=== PATIENT | female | born 1950 | race Caucasian/White ===

== ENCOUNTER → 2016-04-06 | Outpatient (CLI) | payer OTHER ==
--- NOTE | 2016-04-06 11:36 | NM ---
EXAMINATION TYPE: NM bone 3 phase DATE OF EXAM: 04/06/2016 11:30 AM COMPARISON: Previous study dated 02/10/2014 HISTORY: Left foot ulcer. Triple phase bone scintigraphy was performed following the injection of27.5 mCi Tc 99m MDP. Immediat e images and 3.5 hours post injection images acquired. FINDINGS: There is increased flow and pool activity about the left ankle. There is also some mild increased act ivity in the right calcaneus and first MTP joint. Delayed static images show increased activity in th e right first MTP joint as well as diffusely about the left calcaneus. IMPRESSION: 1. Findings consistent with osteomyelitis involving the left calcaneus. 2. Degenerative change, right first MTP joint.
== END | disposition home or self-care (01) ==
LOC: RADNMMAIN 06:54
PROVIDERS: ATTEND Internal Medicine Infectious Disease
DX: M19.071 Primary osteoarthritis, right ankle and foot (principal); E11.621 Type 2 diabetes mellitus with foot ulcer; L97.509 Non-pressure chronic ulcer of other part of unspecified foot with unspecified severity
CPT/HCPCS: 78315; A9503

== ENCOUNTER 2016-04-11 11:13 | Day surgery (SDC) | payer OTHER ==
[2016-04-10 08:44] VITALS: BMI 43.0
[~2016-04-11 11:13] MED LIST: Pre Op ABX Message 1 EACH MISC MISCELLANE ONE
[2016-04-11 11:36] VITALS: TEMP 97.9
[2016-04-11] MEDS ORDERED: VANCOMYCIN 1,500 MG in SODIUM CHLORIDE 0.9% 250 ML IVPB ONE (12:00)
[2016-04-11] MEDS ORDERED: LIDOCAINE 2% INJ 20 MG/ML (20 ML MDV) ONE (13:20)
[2016-04-11] MEDS ORDERED: LIDOCAINE 2% INJ 20 MG/ML SQ ONE (13:33)
[2016-04-11 17:02] VITALS: BP 145/73; PULSE 68; RESP 16
--- NOTE | 2016-04-23 12:28 | IR ---
PICC LINE PLACEMENT: HISTORY: Infection requiring long-term antibiotic therapy PROCEDURE: Ultrasound guidance of PICC line placement. COMPLICATIONS: None ANESTHESIA: 1. 1% Lidocaine locally. FINDINGS/TECHNIQUE: The procedure was explained to the patient. The risks, complications, benefits and alternatives were discussed and any questions were answered. Informed consent was obtained. The patient was placed supine on the fluoroscopic table and prepped and draped in the usual sterile fash ion. Utilizing a 21 gauge needle and sonographic guidance, access in the left basilic vein was achi eved and there is placement of a 0.018 guidewire. The vein is patent. A 5-F. Sheath was placed over the guidewire. The guidewire and dilator were removed and a 5-F. Double lumen PICC line was placed through the sheath with the chest x-ray confirming the tip at the level of the SVC. The sheath was r emoved, the catheter was flushed and sutured into position. The patient was stable throughout the pr ocedure and remained stable upon discharge from the Department of Radiology. The vein puncture was patent under ultrasound. A arteaga scale image was obtained to document patency of the vein punctured. All elements of the maximal barrier technique were utilized. IMPRESSION: 1. Successful PICC line placement under ultrasound performed bedside within the ICU.
== END 2016-04-11 17:05 | disposition home or self-care (01) ==
LOC: CATHCVL 11:13
PROVIDERS: ATTEND Radiology Diagnostic Radiology
DX: M86.8X7 Other osteomyelitis, ankle and foot (principal); E11.621 Type 2 diabetes mellitus with foot ulcer; L97.429 Non-pressure chronic ulcer of left heel and midfoot with unspecified severity; E78.5 Hyperlipidemia, unspecified; F32.9 Major depressive disorder, single episode, unspecified; E66.01 Morbid (severe) obesity due to excess calories; Z68.41 Body mass index [BMI] 40.0-44.9, adult; Z79.1 Long term (current) use of non-steroidal anti-inflammatories (NSAID); Z79.82 Long term (current) use of aspirin; Z79.4 Long term (current) use of insulin; Z79.899 Other long term (current) drug therapy; Z88.0 Allergy status to penicillin; Z87.891 Personal history of nicotine dependence
CPT/HCPCS: 36569; 76937; 77001; C1751; C1769; J2001; J3370

== ENCOUNTER → 2016-08-20 | Outpatient (CLI) | payer OTHER | END | disposition home or self-care (01) | LOC: LABWHC1 13:26 | PROVIDERS: ATTEND Internal Medicine Infectious Disease | DX: Z53.9 Procedure and treatment not carried out, unspecified reason (principal) ==

== ENCOUNTER → 2017-04-01 | Outpatient (CLI) | payer OTHER ==
[2017-04-01 11:40] LABS: Basophils % (A) 0 %; Eosinophils # (A) 0.3 k/uL (0-0.7); Eosinophils % (A) 4 %; HCT 33.8 % (34.0-46.0); Lymphocytes # (A) 0.9 k/uL (1.0-4.8); Lymphocytes % (A) 13 %; MCH 27.6 pg (25.0-35.0); MCHC 32.7 g/dL (31.0-37.0); MCV 84.4 fL (80.0-100.0); Mean Platelet Volume 7.1; Monocytes # (A) 0.3 k/uL (0-1.0); Monocytes % (A) 4 %; Neutrophils # (A) 5.6 k/uL (1.3-7.7); Neutrophils % (A) 78 %; Platelet Count 234 k/uL (150-450); RDW 12.8 % (11.5-15.5); WBC 7.2 k/uL (3.8-10.6)
[2017-04-01 11:51] LABS: Calcium 9.5 mg/dL (8.4-10.2); Magnesium 2.3 mg/dL (1.6-2.3); Phosphorus 4.6 mg/dL (2.5-4.5); Potassium 4.3 mmol/L (3.5-5.1); Uric Acid 6.8 mg/dL (3.7-7.4)
== END | disposition home or self-care (01) ==
LOC: LABWHC1 10:58
PROVIDERS: ATTEND Family Medicine
DX: N18.3 Chronic kidney disease, stage 3 (moderate) (principal); E13.621 Other specified diabetes mellitus with foot ulcer; E63.8 Other specified nutritional deficiencies; R60.9 Edema, unspecified
CPT/HCPCS: 36415; 80048; 83735; 83970; 84100; 84134; 84550; 85025; 97597; 99212

== ENCOUNTER → 2017-04-10 | Outpatient (CLI) | payer OTHER ==
--- NOTE | 2017-04-11 18:25 | US ---
LOWER EXTREMITY VENOUS INSUFFICIENCY SIDE PERFORMED: Bilateral 1) Color flow is present and patency is documented in the following vessels. No DVT or SVT is noted . EIV Common Femoral Vein Deep Femoral Vein Femoral Vein Popliteal Vein Proximal Calf Veins Greater Saph Vein Upper Small Saph Vein 2) There is venous reflux noted at the following venous levels: Venous reflux seen at every level t hroughout bilateral legs IMPRESSION: 1. Bilateral lower extremity venous reflux.
--- NOTE | 2017-04-17 15:14 | P.ARTDOP ---
Arterial Doppler LOWER EXTREMITY ARTERIAL DOPPLER: DATE OF SERVICE: 04/10/2017 Reason for study: Nonhealing left heel ulcer. Doppler waveforms: Multiphasic bilaterally throughout. Pulse volume recording: Normal configuration. Pressure gradients: None. Ankle-brachial indices: Greater than 1 bilaterally. Toe pressures: 126 on the right, 150 on the left Impression: Normal study.
== END | disposition home or self-care (01) ==
LOC: RADUSWWP 13:31
PROVIDERS: ATTEND Internal Medicine Infectious Disease
DX: I87.2 Venous insufficiency (chronic) (peripheral) (principal); E13.621 Other specified diabetes mellitus with foot ulcer; L97.429 Non-pressure chronic ulcer of left heel and midfoot with unspecified severity; E63.8 Other specified nutritional deficiencies
CPT/HCPCS: 93923; 93970

== ENCOUNTER → 2017-04-30 | Outpatient (CLI) | payer OTHER ==
--- NOTE | 2017-04-30 12:51 | US ---
EXAMINATION TYPE: US kidneys/renal and bladder DATE OF EXAM: 04/30/2017 COMPARISON: NONE CLINICAL HISTORY: N18.3 Stage 3 kidney disease. CKD EXAM MEASUREMENTS: Right Kidney: 11.6 x 5.7 x 5.9 cm Left Kidney: 12.1 x 6.4 x 4.8 cm Technical limitations due to patient's body habitus and overlying bowel content Right Kidney: no evidence of hydronephrosis as visualized Left Kidney: no evidence of hydronephrosis as visualized Bladder: appears wnl Bilateral Jets seen: wnl There is no evidence for hydronephrosis at this point in time. Some bilateral cortical thinning is se en. No nephrolithiasis is seen. No masses are identified. The urinary bladder is not greatly diste nded. Bilateral ureteral jets are seen. IMPRESSION: No hydronephrosis is evident bilaterally.
[2017-04-30 13:22] LABS: Potassium 4.3 mmol/L (3.5-5.1)
== END | disposition home or self-care (01) ==
LOC: RADUSWWP 11:43
PROVIDERS: ATTEND Family Medicine
DX: N18.3 Chronic kidney disease, stage 3 (moderate) (principal); I73.9 Peripheral vascular disease, unspecified
CPT/HCPCS: 76770; 80048

== ENCOUNTER → 2017-07-26 | Outpatient (CLI) | payer OTHER ==
--- NOTE | 2017-07-26 13:38 | NM ---
EXAMINATION TYPE: NM bone 3 phase DATE OF EXAM: 07/26/2017 COMPARISON: 04/06/2016 HISTORY: Open sores of the bilateral heels with history of right foot fifth and third digit amputatio n. Triple phase bone scintigraphy was performed following the injection of 25.8 mCi Tc 99m MDP. Immedia te images , blood pool images and 5 hours post injection delayed images were acquired. FINDINGS: As previously seen on the left foot on the exam of 04/06/2016 there is now increased flow, blood pool, and delayed radiotracer uptake to the right ankle most concentrated within the hindfoot involving th e tibia, calcaneus, and navicular bone. Focal radiotracer uptake on blood pool and delayed images is also seen mildly within the left calcaneus. Delayed uptake within the left first metatarsal phalangea l joint and bilateral distal interphalangeal joints suggests forefoot arthropathy. IMPRESSION: 1. Findings suggesting multifocal osteomyelitis within the right foot involving the distal tibia, trinh icular bone, and calcaneus. 2. Findings concerning for osteomyelitis of the left calcaneus although less pronounced than findings on the right. 3. Bilateral forefoot arthropathy.
== END | disposition home or self-care (01) ==
LOC: RADNMMAIN 07:23
PROVIDERS: ATTEND Internal Medicine Infectious Disease
DX: M19.072 Primary osteoarthritis, left ankle and foot (principal); M19.071 Primary osteoarthritis, right ankle and foot
CPT/HCPCS: 78315; A9503

== ENCOUNTER → 2017-08-05 | Outpatient (CLI) | payer OTHER ==
[2017-08-05 11:58] LABS: HCT 29.3 % (34.0-46.0); HGB 9.4 gm/dL (11.4-16.0); Hypochromasia Slight; MCH 25.8 pg (25.0-35.0); MCHC 32.1 g/dL (31.0-37.0); MCV 80.5 fL (80.0-100.0); Mean Platelet Volume 7.5; Platelet Count 182 k/uL (150-450); RBC 3.63 m/uL (3.80-5.40); RDW 14.8 % (11.5-15.5); WBC 7.8 k/uL (3.8-10.6)
[2017-08-05 12:22] LABS: Calcium 8.9 mg/dL (8.4-10.2); Phosphorus 5.4 mg/dL (2.5-4.5); Potassium 4.5 mmol/L (3.5-5.1); Uric Acid 6.3 mg/dL (3.7-7.4)
[2017-08-05 16:48] LABS: Parathyroid Hormone Intact 62.7 pg/mL (14.0-72.0)
[2017-08-05 17:11] LABS: Vitamin D 25 Hydroxy 32.2 ng/mL (30.0-100.0)
== END ==
LOC: LABWHC1 11:10
PROVIDERS: ATTEND Nurse Practitioner Family
DX: E55.9 Vitamin D deficiency, unspecified (principal); M10.9 Gout, unspecified; N25.81 Secondary hyperparathyroidism of renal origin; N39.0 Urinary tract infection, site not specified; N18.3 Chronic kidney disease, stage 3 (moderate)
CPT/HCPCS: 36415; 80048; 82306; 83735; 83970; 84100; 84550; 85027

== ENCOUNTER → 2017-08-19 | Outpatient (CLI) | payer OTHER ==
[2017-08-19 13:48] LABS: Anisocytosis Slight; Basophils % (A) 1 %; Eosinophils # (A) 0.5 k/uL (0-0.7); Eosinophils % (A) 6 %; Hypochromasia Slight; Lymphocytes % (A) 11 %; MCH 25.8 pg (25.0-35.0); MCHC 32.1 g/dL (31.0-37.0); MCV 80.4 fL (80.0-100.0); Mean Platelet Volume 6.8; Monocytes # (A) 0.4 k/uL (0-1.0); Monocytes % (A) 4 %; Neutrophils # (A) 7.1 k/uL (1.3-7.7); Neutrophils % (A) 77 %; Platelet Count 138 k/uL (150-450); RBC 3.48 m/uL (3.80-5.40); WBC 9.2 k/uL (3.8-10.6)
[2017-08-19 13:57] LABS: Albumin 2.9 g/dL (3.5-5.0); Calcium 8.5 mg/dL (8.4-10.2); Potassium 4.3 mmol/L (3.5-5.1); Total Bilirubin 0.2 mg/dL (0.2-1.3); Total Protein 5.9 g/dL (6.3-8.2)
[2017-08-19 19:56] LABS: Hemoglobin A1C 5.7 % (4.0-6.0)
== END | disposition home or self-care (01) ==
LOC: LABWHC1 12:31
PROVIDERS: ATTEND Internal Medicine Infectious Disease
DX: E13.21 Other specified diabetes mellitus with diabetic nephropathy (principal)
CPT/HCPCS: 36415; 80053; 83036; 84134; 85025

== ENCOUNTER 2017-09-09 11:08 | Inpatient (IN) | payer OTHER ==
[2017-09-09 13:51] LABS: Basophils % (A) 0 %; Eosinophils # (A) 0.4 k/uL (0-0.7); Eosinophils % (A) 4 %; HCT 30.1 % (34.0-46.0); HGB 9.5 gm/dL (11.4-16.0); Hypochromasia Slight; Lymphocytes # (A) 0.9 k/uL (1.0-4.8); Lymphocytes % (A) 9 %; MCH 25.1 pg (25.0-35.0); MCHC 31.6 g/dL (31.0-37.0); MCV 79.4 fL (80.0-100.0); Mean Platelet Volume 7.2; Monocytes # (A) 0.3 k/uL (0-1.0); Monocytes % (A) 3 %; Neutrophils # (A) 8.1 k/uL (1.3-7.7); Neutrophils % (A) 83 %; Platelet Count 227 k/uL (150-450); RBC 3.79 m/uL (3.80-5.40); RDW 15.1 % (11.5-15.5); WBC 9.8 k/uL (3.8-10.6)
[2017-09-09 14:02] LABS: Albumin 3.2 g/dL (3.5-5.0); Calcium 8.8 mg/dL (8.4-10.2); Potassium 4.3 mmol/L (3.5-5.1); Total Bilirubin 0.2 mg/dL (0.2-1.3); Total Protein 6.5 g/dL (6.3-8.2)
[2017-09-09] MEDS ORDERED: VANCOMYCIN IV PER PHARMACY 1 EACH MISC MISCELLANE PRN (14:17)
[2017-09-09] MEDS ORDERED: cefTRIAXone IN SWFI 1,000 MG/10 ML SYRINGE IVP STA (14:18)
--- NOTE | 2017-09-09 14:38 | ED ---
Wound/Laceration HPI - General Chief Complaint: Wound/Laceration Stated Complaint: WOUNDS ON FEET, SENT BY DR THOMPSON Time Seen by Provider: 09/09/17 14:00 Source: patient, RN notes reviewed, old records reviewed Mode of arrival: wheelchair Limitations: no limitations - History of Present Illness Initial Comments: Patient is a 66-year-old female presents emergency department today chief complaint of diabetic foot ulcers on bilateral heels. Patient was sent in by Dr. Thompson for IV antibiotics and inpatient treatment. Patient reports that her wounds were healing well until she open them up recently on accident. Patient states that she is not on any current antibiotics. She was off of them for the past 2 weeks. She denies any other symptoms including chest pain shortness breath or abdominal pain. She does report that she has episodes of urinary incontinence. Patient states that has been chronic. Patient states that she has had no fevers or chills. She does ambulate very little and is mostly in her wheelchair. She reports that she's been doing with her for quite some time and has been off and on with casts and special dressings. Patient's wound care is Dr. Thompson. - Related Data Home Medications Medication Instructions Recorded Confirmed Aspirin [Aspirin EC] 81 mg PO DAILY 02/02/14 09/09/17 Insulin Aspart [Novolog Flexpen] 1 - 10 units SQ TID 02/02/14 09/09/17 Lovastatin [Mevacor] 40 mg PO QAM 02/02/14 09/09/17 Naproxen [Naproxen] 500 mg PO DAILY PRN 02/02/14 09/09/17 glipiZIDE [Glucotrol] 5 mg PO DAILY 01/28/17 09/09/17 Insulin Glargine,Hum.rec.anlog 44 unit SQ DAILY 02/04/17 09/09/17 [Basaglar Kwikpen U-100] Ergocalciferol (Vitamin D2) 50,000 unit PO WEEKLY 04/01/17 09/09/17 [Vitamin D2] Losartan [Cozaar] 100 mg PO DAILY 04/01/17 09/09/17 Clotrimazole 10 mg MUCOUS MEM 5XD 08/19/17 09/09/17 Previous Rx's Medication Instructions Recorded Ammonium Lactate Cream [Lac-Hydrin 1 applic TOPICAL BID #2 tube 04/01/17 12% Cream] traMADol HCl [Ultram] 50 mg PO Q6H PRN #45 tab 06/24/17 Allergies Allergy/AdvReac Type Severity Reaction Status Date / Time Penicillins Allergy Severe Rash/Hives Verified 09/09/17 11:44 simvastatin [From Zocor] AdvReac Severe Unknown Verified 09/09/17 11:44 pregabalin [From Lyrica] AdvReac Unknown Verified 09/09/17 11:44 tide laundry detergent Allergy Itching Uncoded 09/09/17 11:44 Review of Systems ROS Statement: Those systems with pertinent positive or pertinent negative responses have been documented in the HPI. ROS Other: All systems not noted in ROS Statement are negative. Past Medical History Past Medical History: Diabetes Mellitus, Hyperlipidemia, Hypertension, Osteoarthritis (OA), Skin Disorder Additional Past Medical History / Comment(s): Cellutitus right leg, ringing in bilateral ears. Current left heel wound. History of Any Multi-Drug Resistant Organisms: MRSA Date of last positivie culture/infection: 06/24/17 MDRO Source:: HEEL Past Surgical History: Appendectomy, Cholecystectomy Additional Past Surgical History / Comment(s): L OVARIAN CYST, 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,CATARACTS BILAT EYES Past Anesthesia/Blood Transfusion Reactions: No Reported Reaction Past Psychological History: Depression Smoking Status: Former smoker Past Alcohol Use History: None Reported Past Drug Use History: None Reported - Past Family History Father Additional Family Medical History / Comment(s): ALCOHOLIC Mother Family Medical History: Cancer, CVA/TIA, Diabetes Mellitus, Myocardial Infarction ([place]) Additional Family Medical History / Comment(s): COLON Brother(s) Additional Family Medical History / Comment(s): DRUG DEPENDENCY General Exam - General Exam Comments Initial Comments: 66-year-old female. Morbidly obese. No acute distress. Limitations: no limitations General appearance: alert, in no apparent distress Head exam: Present: atraumatic, normocephalic, normal inspection Eye exam: Present: normal appearance, PERRL, EOMI. Absent: scleral icterus, conjunctival injection, periorbital swelling ENT exam: Present: normal exam, mucous membranes moist Neck exam: Present: normal inspection. Absent: tenderness, meningismus, lymphadenopathy Respiratory exam: Present: normal lung sounds bilaterally. Absent: respiratory distress, wheezes, rales, rhonchi, stridor Cardiovascular Exam: Present: regular rate, normal rhythm, normal heart sounds. Absent: systolic murmur, diastolic murmur, rubs, gallop, clicks GI/Abdominal exam: Present: soft, normal bowel sounds. Absent: distended, tenderness, guarding, rebound, rigid Extremities exam: Present: full ROM, normal capillary refill. Absent: normal inspection, tenderness, pedal edema, joint swelling, calf tenderness Left Hand Wrist exam: Present: normal inspection Left Knee exam: Present: normal inspection, full ROM Lower Leg exam: Present: full ROM. Absent: normal inspection (Thickened skin chronic arterial and venous insufficiency.) Ankle exam: Present: tenderness (Patient has tenderness over the heel and ankle consistent with diabetic ulcer. 5-6 cm ulceration.), swelling. Absent: normal inspection Foot/Toe exam: Absent: normal inspection, full ROM Neurovascular tendon exam: Present: no vascular compromise (Pulses are heard bilaterally with Doppler.) Gait: observed and normal Back exam: Present: normal inspection Neurological exam: Present: alert, oriented X3, CN II-XII intact Psychiatric exam: Present: normal affect, normal mood Skin exam: Present: warm, dry, intact, normal color. Absent: rash Course Vital Signs 09/09/17 11:42 Temperature 98.9 F Pulse Rate 80 Respiratory 16 Rate Blood Pressure 191/67 O2 Sat by Pulse 98 Oximetry Medical Decision Making - Medical Decision Making 66-year-old female presents emergency department today chief complaint of admission for bilateral diabetic foot ulcers. The left is worse than the right. She reports that she "the wound on accident a few weeks ago. She was doing well the wound care center. She denies any other symptoms at this time. Patient was sent information for IV antibiotics and wound care treatment. He did evaluate the wounds there is a 5-6 cm wound over the left and right heel some erythema extending up the foot and to the lateral and medial malleolus. She has chronic arterial and venous insufficiency with thickened skin changes. Patient has normal dorsalis pedis and posterior tibial pulses bilaterally with the Doppler ultrasound. At this time Patient will be started on Rocephin for empiric and biotics blood culture was obtained. We'll start start the Patient on vancomycin. Patient was admitted for further evaluation by her wound care physician Dr. Thompson. - Lab Data Result diagrams: 09/09/17 13:40 09/09/17 13:40 Lab Results 09/09/17 09/09/17 09/09/17 Range/Units 13:40 13:40 13:40 WBC 9.8 (3.8-10.6) k/uL RBC 3.79 L (3.80-5.40) m/uL Hgb 9.5 L (11.4-16.0) gm/dL Hct 30.1 L (34.0-46.0) % MCV 79.4 L (80.0-100.0) fL MCH 25.1 (25.0-35.0) pg MCHC 31.6 (31.0-37.0) g/dL RDW 15.1 (11.5-15.5) % Plt Count 227 (150-450) k/uL Neutrophils % 83 % Lymphocytes % 9 % Monocytes % 3 % Eosinophils % 4 % Basophils % 0 % Neutrophils # 8.1 H (1.3-7.7) k/uL Lymphocytes # 0.9 L (1.0-4.8) k/uL Monocytes # 0.3 (0-1.0) k/uL Eosinophils # 0.4 (0-0.7) k/uL Basophils # 0.0 (0-0.2) k/uL Hypochromasia Slight Sodium 144 (137-145) mmol/L Potassium 4.3 (3.5-5.1) mmol/L Chloride 111 H (98-107) mmol/L Carbon Dioxide 23 (22-30) mmol/L Anion Gap 10 mmol/L BUN 29 H (7-17) mg/dL Creatinine 2.00 H (0.52-1.04) mg/dL Est GFR (CKD-EPI)AfAm 30 (>60 ml/min/1.73 sqM) Est GFR (CKD-EPI)NonAf 26 (>60 ml/min/1.73 sqM) Glucose 89 (74-99) mg/dL Plasma Lactic Acid Jamar 0.6 L (0.7-2.0) mmol/L Calcium 8.8 (8.4-10.2) mg/dL Total Bilirubin 0.2 (0.2-1.3) mg/dL AST 15 (14-36) U/L ALT 23 (9-52) U/L Alkaline Phosphatase 73 (38-126) U/L Total Protein 6.5 (6.3-8.2) g/dL Albumin 3.2 L (3.5-5.0) g/dL - Radiology Data Radiology results: report reviewed Disposition Clinical Impression: Diabetic ulcer of heel, Diabetes mellitus type 2, uncontrolled, with complications, Morbid obesity with BMI of 40.0-44.9, adult, Hypertension Disposition: ADMITTED IP TO THIS HOSP Condition: Stable Is patient prescribed a controlled substance at d/c from ED?: No When asked, does pt state using other controlled substances?: No If prescribed controlled substance>3 days was MAPS reviewed?: No If opioid is for acute pain is fill amount 7 days or less?: No If Rx opioid, was Start Talking consent form obtained?: No Referrals: Noelle Raza MD [Primary Care Provider] - 1-2 days Time of Disposition: 14:42
[2017-09-09] MEDS ORDERED: MORPHINE SULFATE 2 MG/ML SYRINGE IV PRN (14:43)
[2017-09-09] MEDS ORDERED: IBUPROFEN 400 MG TAB PO PRN (14:43)
[2017-09-09] MEDS ORDERED: HYDROcodone/APAP 5-325MG 1 EACH TAB PO PRN (14:43)
[2017-09-09] MEDS ORDERED: ONDANSETRON 4 MG/2 ML VIAL IVP PRN (14:43)
[2017-09-09] MEDS ORDERED: NALOXONE 0.4 MG/ML 1 ML VIAL IV PRN (14:43)
[2017-09-09] MEDS ORDERED: ACETAMINOPHEN TAB 325 MG TAB PO PRN (14:43)
[2017-09-09] MEDS ORDERED: NAPROXEN 500 MG PO PRN (14:46)
[2017-09-09] MEDS: SODIUM CHLORIDE 0.9% 1,000 ML IV SCH (14:54)
[2017-09-09] MEDS ORDERED: VANCOMYCIN 2,250 MG in SODIUM CHLORIDE 0.9% 500 ML IVPB ONE (15:00)
--- NOTE | 2017-09-09 15:31 | XR ---
EXAMINATION TYPE: XR foot limited bilateral DATE OF EXAM: 09/09/2017 COMPARISON: Left foot 04/02/2016 HISTORY: 66 year-old female bilateral nonhealing wounds at the heels. Pain. TECHNIQUE: 2 views each side FINDINGS: Left: Diffuse osteopenia limits assessment. Some degenerative change at the first MTP joint. There is a foc al soft tissue ulceration along the plantar aspect of the hindfoot. No discrete osseous erosions. Mod erate-sized posterior and plantar calcaneal spurs. Hammertoes. Degenerative changes at the midfoot. Right: Prior partial amputations of the third and fifth digits and suspected healed fracture deformity of th e fourth proximal phalanx. Mild degenerative changes first MTP joint. Marked osteopenia limits assess ment. There is soft tissue ulceration along the plantar aspect the heel. Moderate-sized plantar calc aneal spur. No discrete osseous erosions are seen. Diffuse soft tissue swelling. IMPRESSION: Bilateral plantar heel ulcers, left larger than right. No discrete osteolysis to suggest osteomyeliti s at this time. Partial third and fifth toe amputations on the right. Marked osteopenia.
--- NOTE | 2017-09-09 15:56 | P.HPIM ---
History of Present Illness H&P Date: 09/09/17 Chief Complaint: Feet wounds 66-year-old female with hx of obesity and diabetes mellitus type 2 presents to the ER from the wound healing Center worsening wounds over both heels. She had been the patient wound healing center for the last several years. She underwent treatment with multiple courses of antibiotics, including therapy for her MRSA, hyperbaric oxygen therapy, and off loading cast placement but she continues to have recurrence in her wound infections. Most recently she was doing well until she injured her foot in the shower, the ulceration has reopened since then. She has neuropathy in both feet and does not have great sensation in them. She is denying fevers, chills, or rigors or sweats. No chest pain or sob. No abdominal pain, nausea or vomiting. No diarrhea. Prior data is reviewed and shows that her hemoglobin A1c had been around 11 and last check was 5.7. Review of Systems 12 point review of system done negative except HPI Past Medical History Past Medical History: Diabetes Mellitus, Hyperlipidemia, Hypertension, Osteoarthritis (OA), Skin Disorder Additional Past Medical History / Comment(s): Cellutitus right leg, ringing in bilateral ears. Current left heel wound. History of Any Multi-Drug Resistant Organisms: MRSA Date of last positivie culture/infection: 06/24/17 MDRO Source:: HEEL Past Surgical History: Appendectomy, Cholecystectomy Additional Past Surgical History / Comment(s): L OVARIAN CYST, 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,CATARACTS BILAT EYES Past Anesthesia/Blood Transfusion Reactions: No Reported Reaction Past Psychological History: Depression Smoking Status: Former smoker Past Alcohol Use History: None Reported Past Drug Use History: None Reported - Past Family History Father Additional Family Medical History / Comment(s): ALCOHOLIC Mother Family Medical History: Cancer, CVA/TIA, Diabetes Mellitus, Myocardial Infarction ([place]) Additional Family Medical History / Comment(s): COLON Brother(s) Additional Family Medical History / Comment(s): DRUG DEPENDENCY Medications and Allergies Home Medications Medication Instructions Recorded Confirmed Type Aspirin [Aspirin EC] 81 mg PO DAILY 02/02/14 09/09/17 History Insulin Aspart [Novolog Flexpen] See Protocol SQ AC-TID 02/02/14 09/09/17 History Lovastatin [Mevacor] 40 mg PO HS 02/02/14 09/09/17 History Insulin Glargine,Hum.rec.anlog 44 unit SQ DAILY 02/04/17 09/09/17 History [Basaglar Kwikpen U-100] Ergocalciferol (Vitamin D2) 50,000 unit PO TH 04/01/17 09/09/17 History [Vitamin D2] traMADol HCl [Ultram] 50 mg PO Q6H PRN #45 tab 06/24/17 09/09/17 Rx Losartan Potassium 100 mg PO DAILY 09/09/17 09/09/17 History amLODIPine [Norvasc] 10 mg PO DAILY 09/09/17 09/09/17 History Allergies Allergy/AdvReac Type Severity Reaction Status Date / Time Penicillins Allergy Severe Rash/Hives Verified 09/09/17 14:50 simvastatin [From Zocor] AdvReac Severe Unknown Verified 09/09/17 14:50 pregabalin [From Lyrica] AdvReac Unknown Verified 09/09/17 14:50 tide laundry detergent Allergy Itching Uncoded 09/09/17 11:44 Physical Exam Vitals: Vital Signs Temp Pulse Resp BP Pulse Ox 09/09/17 15:04 89 16 156/73 98 09/09/17 11:42 98.9 F 80 16 191/67 98 Intake and Output 09/09/17 09/09/17 09/09/17 06:59 14:59 22:59 Other: Weight 145.15 kg Constitutional: No acute distress, conversant, pleasant Eyes:Anicteric sclerae, moist conjunctiva, no lid-lag, PERRLA, ENMT: Oropharynx clear, no erythema, exudates Neck: Supple, FROM, no masses, or JVD, No carotid bruits, No thyromegaly Lungs: Clear to auscultation, Clear to percussion, Normal respiratory effort, no accessory muscle use Cardiovascular: Heart regular in rate and rhythm, No murmurs, gallops, or rubs, No peripheral edema Abdominal: Soft, Nontender, no guarding, rebound or rigidity, Normoactive bowel sounds, No hepatomegaly, No splenomegaly, No palpable mass Skin: Normal temperature, tone, texture, turgor, no induration, No subcutaneous nodules, No rash, lesions, No ulcers Extremities: Bilateral heel ulcers 5X5 cm each with yellow purulent base and clear, serous discharge. No digital cyanosis, No clubbing, Pedal pulses intact and symmetrical, Radial pulses intact and symmetrical, No calf tenderness Psychiatric: Alert and oriented to person, place and time, appropriate affect, intact judgement Neuro: Muscles Strength 5/5 in all 4 extremities, Sensation to light touch grossly present throughout, Cranial nerves II-XII grossly intact, no focal sensory deficits Results CBC & Chem 7: 09/09/17 13:40 09/09/17 13:40 Labs: Abnormal Lab Results - Last 24 Hours (Table) 09/09/17 09/09/17 09/09/17 Range/Units 13:40 13:40 13:40 RBC 3.79 L (3.80-5.40) m/uL Hgb 9.5 L (11.4-16.0) gm/dL Hct 30.1 L (34.0-46.0) % MCV 79.4 L (80.0-100.0) fL Neutrophils # 8.1 H (1.3-7.7) k/uL Lymphocytes # 0.9 L (1.0-4.8) k/uL Chloride 111 H (98-107) mmol/L BUN 29 H (7-17) mg/dL Creatinine 2.00 H (0.52-1.04) mg/dL Plasma Lactic Acid Jamar 0.6 L (0.7-2.0) mmol/L Albumin 3.2 L (3.5-5.0) g/dL Assessment and Plan Plan: 1-Bilateral heels pressure ulcers infection: Antibiotics per ID D/W DR Bah. 2-Diabetes type 2 Continue home insulin regimen Blood sugar checks per [facility] protocol A1c checked early this month, 5.7 3-Hyperlipidemia, Hypertension, Osteoarthritis (OA): All stable Continue home meds. 4-DVT prophylaxis: Heparin s.q Anticipated stay >2midnights Anticipated disposition: rehab.
[2017-09-09] MEDS ORDERED: cefTRIAXone 2,000 MG in SODIUM CHLORIDE 0.9% 100 ML IVPB SCH (16:00)
[2017-09-09 17:19] LABS: Glucose,Whole Blood 85 mg/dL (75-99)
[2017-09-09] MEDS ORDERED: INSULIN ASPART 100 UNIT/ML 1 ML 10 ML VIAL SQ SCH (17:30)
[2017-09-09] MEDS: INSULIN ASPART 100 UNIT/ML 1 ML 10 ML VIAL SQ SCH ×2 (17:53→22:14)
[2017-09-09] MEDS: cefTRIAXone IN SWFI 2,000 MG/20 ML SYRINGE IVP SCH (18:41)
[2017-09-09] MEDS: CLOTRIMAZOLE TROCHE 10 MG TROCHE MUCOUS MEM SCH ×2 (18:44→22:14)
[2017-09-09] MEDS: HEPARIN SODIUM,PORCINE 5,000 UNIT/ML 1 ML VIAL SQ SCH (18:44)
[2017-09-09 20:15] LABS: Glucose,Whole Blood 113 mg/dL (75-99)
[2017-09-09 22:04] LABS: Hemoglobin A1C 5.4 % (4.0-6.0)
[2017-09-09] MEDS: AMMONIUM LACTATE 12% CREAM 140 GM TUBE TOPICAL SCH (22:14)
[2017-09-09] MEDS: traMADol 50 MG TAB PO PRN (22:15)
--- NOTE | 2017-09-10 00:21 | P.CONS ---
History of Present Illness - Reason for Consult Consult date: 09/09/17 - History of Present Illness 66-year-old female who has superobesity and diabetes mellitus type 2 presents the wound healing Center within a month of her most recent visit. She had been the patient wound healing center for quite some time. With a course of intravenous antibiotic therapy for her MRSA infection, hyperbaric oxygen therapy, and a total contact cast she finally achieved healing. She was doing well relates that she injured her foot in the shower. The ulceration has reopened. And she presents back to the wound center for further intervention. She is evidence of open ulceration at the site of prior ulcer. She has neuropathy and does not have great sensation at the site. She denying fevers chills or rigors or sweats. Prior data is reviewed and shows that her hemoglobin A1c had been 12 and last check was 7.6. Her prealbumin was also low but has improved with her protein intake. Recently she's had significant complications with her bilateral heel ulcerations. Left heel ulceration healed with a total contact cast. As well as her prior course of antibiotics and wound care. Local therapy was applied in a total contact cast was applied to the right lower leg to try to use the significant ulceration that developed at that site. Evaluation revealed evidence of osteomyelitis and she's now completed 6 weeks of oral antibiotic therapy with marked improvement. With a total contact cast in place to right showing improvement however the left foot markedly worsened it became a large blistered open ulceration with deep tissue injury concerns for deeper infection. Because the significant difficulty she was advised admission to hospital for local care, antibiotic therapy, and plans for how she can be best cared for in the future. She agrees and is now comfortable emergency center for admission. Antibiotic therapy has been initiated. Review of Systems Patient feels poorly all the time, she is always fatigued his malaise has no energy and is cold HEENT:Denies headache or acute visual change. Denies sinus or mouth discomforts. Denies neck stiffness or pain. Denies significant oral cavity pain. Denies difficulty on swallowing. Lungs: She is denying cough or sputum production but feel short of breath at rest at times Cardiovascular: She denying chest pain or chest wall pain she has dyspnea with exertion and orthopnea or syncope Gastrointestinal:Denies nausea, vomiting, diarrhea, constipation, hematemesis, melena, hematochezia. No no significant change of bowel habit noticed. Did have difficulty with eating while she was on antibiotic therapy this is improved Musculoskeletal: She has chronic pain of her back and limbs and the chronic bilateral lower extremity edema Skin: Patient is a bilateral heel ulcerations as per the HPI Neuro: Denies headache or visual change. Denies any new onset weakness or difficulty with ambulation. Denies falls or seizures. Psychiatric: Chronic anxiety and depression Endocrine: Chronic fatigue and progressive weight gain Past Medical History Past Medical History: Diabetes Mellitus, Hyperlipidemia, Hypertension, Osteoarthritis (OA), Renal Disease, Skin Disorder Additional Past Medical History / Comment(s): Cellutitus right leg, ringing in bilateral ears. 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 pt lives alone but has a pet ct harshad. has in home care(aide) that helps with cooking, cleaning, laundry and shopping. pt uses a w/c and currently needs assist Smoking Status: Former smoker Past Alcohol Use History: None Reported Additional Past Alcohol Use History / Comment(s): started smoking age 21(1971) and quit 1991, smoked 1 ppd Past Drug Use History: None Reported - Past Family History Father Additional Family Medical History / Comment(s): ALCOHOLIC Mother Family Medical History: Cancer, CVA/TIA, Diabetes Mellitus, Myocardial Infarction ([place]) Additional Family Medical History / Comment(s): COLON Brother(s) Additional Family Medical History / Comment(s): DRUG DEPENDENCY Medications and Allergies Home Medications and Allergies Comment(s): Current Medications Acetaminophen (Tylenol Tab) 650 mg PO Q6HR PRN PRN Reason: Mild Pain or Fever > 100.5 Hydrocodone Bitart/Acetaminophen ([place] 5-325) 1 each PO Q4HR PRN PRN Reason: Severe Pain Amlodipine Besylate (Norvasc) 10 mg PO DAILY [facility] Aspirin (Aspirin) 81 mg PO DAILY [facility] Ceftriaxone Sodium (Rocephin) 2,000 mg IVP Q24HR [facility] Last Admin: 09/09/17 18:41 Dose: 2,000 mg Clotrimazole (Mycelex Alexia) 10 mg MUCOUS MEM 5XD [facility] Last Admin: 09/09/17 22:14 Dose: 10 mg Ergocalciferol (Vitamin D2) 50,000 unit PO WEEKLY [facility] Glipizide (Glucotrol) 5 mg PO AC-BRKFST [facility] Heparin Sodium (Porcine) (Heparin) 5,000 unit SQ Q8HR [facility] Last Admin: 09/09/17 18:44 Dose: Not Given Vancomycin HCl 2,000 mg/ (Sodium Chloride) 500 mls @ 167 mls/hr IVPB Q48H [facility] Sodium Chloride (Saline 0.9%) 1,000 mls @ 120 mls/hr IV .Q8H20M [facility] Last Admin: 09/09/17 14:54 Dose: 120 mls/hr Ibuprofen (Motrin) 400 mg PO Q6HR PRN PRN Reason: Mild Pain or Fever > 100.5 Insulin Aspart (Novolog) 0 unit SQ ACHS [facility] PRN Reason: Protocol Last Admin: 09/09/17 22:14 Dose: Not Given Insulin Detemir (Levemir) 44 unit SQ DAILY [facility] Lactic Acid (Ammonium Lactate) 1 applic TOPICAL BID [facility] Last Admin: 09/09/17 22:14 Dose: 1 applic Lorazepam (Ativan) 0.5 mg IV Q6HR PRN PRN Reason: Anxiety Losartan Potassium (Cozaar) 100 mg PO DAILY [facility] Losartan Potassium (Cozaar) 100 mg PO DAILY [facility] Morphine Sulfate (Morphine Sulfate (Inj)) 4 mg IV Q4HR PRN PRN Reason: Severe Pain Naloxone HCl (Narcan) 0.2 mg IV Q2M PRN PRN Reason: Opioid Reversal Lovastatin 40mg 40 mg PO QAM [facility] Ondansetron HCl (Zofran) 4 mg IVP Q8HR PRN PRN Reason: Nausea And Vomiting Pantoprazole Sodium (Protonix) 40 mg IV DAILY [facility] Tramadol HCl (Ultram) 50 mg PO Q6H PRN PRN Reason: Moderate Pain Last Admin: 09/09/17 22:15 Dose: 50 mg Home Medications Medication Instructions Recorded Confirmed Type Aspirin [Aspirin EC] 81 mg PO DAILY 02/02/14 09/09/17 History Insulin Aspart [Novolog Flexpen] See Protocol SQ AC-TID 02/02/14 09/09/17 History Lovastatin [Mevacor] 40 mg PO HS 02/02/14 09/09/17 History Insulin Glargine,Hum.rec.anlog 44 unit SQ DAILY 02/04/17 09/09/17 History [Basaglar Kwikpen U-100] Ergocalciferol (Vitamin D2) 50,000 unit PO TH 04/01/17 09/09/17 History [Vitamin D2] traMADol HCl [Ultram] 50 mg PO Q6H PRN #45 tab 06/24/17 09/09/17 Rx Losartan Potassium 100 mg PO DAILY 09/09/17 09/09/17 History amLODIPine [Norvasc] 10 mg PO DAILY 09/09/17 09/09/17 History Allergies Allergy/AdvReac Type Severity Reaction Status Date / Time Penicillins Allergy Severe Rash/Hives Verified 09/09/17 14:50 simvastatin [From Zocor] AdvReac Severe Unknown Verified 09/09/17 14:50 pregabalin [From Lyrica] AdvReac Unknown Verified 09/09/17 14:50 tide laundry detergent Allergy Itching Uncoded 09/09/17 11:44 Physical Exam Vitals: Vital Signs Temp Pulse Pulse Resp BP BP Pulse Ox 09/09/17 20:45 97.3 F L 87 18 162/70 95 09/09/17 17:18 97.9 F 89 18 150/69 95 09/09/17 15:53 98.7 F 81 16 142/70 98 09/09/17 15:04 89 16 156/73 98 09/09/17 11:42 98.9 F 80 16 191/67 98 Intake and Output 09/09/17 09/09/17 09/10/17 14:59 22:59 06:59 Other: Voiding Method Bedside Commode # Voids 1 Weight 145.15 kg 66-year-old female who is superobesity is without significant discomfort at this time. HEENT: Anicteric conjunctiva are pink and moist nasal mucosa grossly intact without significant lesions, there is no thrush. Very poor dentition Neck: The neck is supple without significant lymphadenopathy or thyromegaly. Lungs: There is symmetrical air entry, few expiratory wheezes, no bronchial sounds. No dullness or egophony Heart: Regular rate and rhythm with an audible S1-S2, no S3 without S4. There is no significant murmur click or rub, PMI was nondisplaced. Abdomen: Obese Positive bowel sounds soft and nontender without palpable masses or organomegaly. There was no guarding or rebound. Extremities: The upper extremities have excellent pulses they are symmetric, no significant petechiae or telangiectasia. No splinter hemorrhages were noted. The right lower extremity as the extensive ulcerations of the heel as of the left heel. Please see nursing photography for the measurements and exact locations of these extensive ulcerations. There is surrounding erythema drainage and tenderness, there is minimal ascending erythema at the ankle level Results CBC & Chem 7: 09/09/17 13:40 09/09/17 13:40 Labs: Abnormal Lab Results - Last 24 Hours (Table) 09/09/17 09/09/17 09/09/17 Range/Units 13:40 13:40 13:40 RBC 3.79 L (3.80-5.40) m/uL Hgb 9.5 L (11.4-16.0) gm/dL Hct 30.1 L (34.0-46.0) % MCV 79.4 L (80.0-100.0) fL Neutrophils # 8.1 H (1.3-7.7) k/uL Lymphocytes # 0.9 L (1.0-4.8) k/uL Chloride 111 H (98-107) mmol/L BUN 29 H (7-17) mg/dL Creatinine 2.00 H (0.52-1.04) mg/dL POC Glucose (mg/dL) (75-99) mg/dL Plasma Lactic Acid Jamar 0.6 L (0.7-2.0) mmol/L Albumin 3.2 L (3.5-5.0) g/dL 09/09/17 Range/Units 20:14 RBC (3.80-5.40) m/uL Hgb (11.4-16.0) gm/dL Hct (34.0-46.0) % MCV (80.0-100.0) fL Neutrophils # (1.3-7.7) k/uL Lymphocytes # (1.0-4.8) k/uL Chloride (98-107) mmol/L BUN (7-17) mg/dL Creatinine (0.52-1.04) mg/dL POC Glucose (mg/dL) 113 H (75-99) mg/dL Plasma Lactic Acid Jamar (0.7-2.0) mmol/L Albumin (3.5-5.0) g/dL Microbiology - Last 24 Hours (Table) 09/09/17 14:44 Wound Culture - Preliminary Foot - Left Laboratory Results WBC 9.8 k/uL (3.8-10.6) 09/09/17 13:40 RBC 3.79 m/uL (3.80-5.40) L 09/09/17 13:40 Hgb 9.5 gm/dL (11.4-16.0) L 09/09/17 13:40 Hct 30.1 % (34.0-46.0) L 09/09/17 13:40 MCV 79.4 fL (80.0-100.0) L 09/09/17 13:40 MCH 25.1 pg (25.0-35.0) 09/09/17 13:40 MCHC 31.6 g/dL (31.0-37.0) 09/09/17 13:40 RDW 15.1 % (11.5-15.5) 09/09/17 13:40 Plt Count 227 k/uL (150-450) 09/09/17 13:40 Neutrophils % 83 % 09/09/17 13:40 Lymphocytes % 9 % 09/09/17 13:40 Monocytes % 3 % 09/09/17 13:40 Eosinophils % 4 % 09/09/17 13:40 Basophils % 0 % 09/09/17 13:40 Neutrophils # 8.1 k/uL (1.3-7.7) H 09/09/17 13:40 Lymphocytes # 0.9 k/uL (1.0-4.8) L 09/09/17 13:40 Monocytes # 0.3 k/uL (0-1.0) 09/09/17 13:40 Eosinophils # 0.4 k/uL (0-0.7) 09/09/17 13:40 Basophils # 0.0 k/uL (0-0.2) 09/09/17 13:40 Hypochromasia Slight 09/09/17 13:40 Sodium 144 mmol/L (137-145) 09/09/17 13:40 Potassium 4.3 mmol/L (3.5-5.1) 09/09/17 13:40 Chloride 111 mmol/L (98-107) H 09/09/17 13:40 Carbon Dioxide 23 mmol/L (22-30) 09/09/17 13:40 Anion Gap 10 mmol/L 09/09/17 13:40 BUN 29 mg/dL (7-17) H 09/09/17 13:40 Creatinine 2.00 mg/dL (0.52-1.04) H 09/09/17 13:40 Est GFR (CKD-EPI)AfAm 30 (>60 ml/min/1.73 sqM) 09/09/17 13:40 Est GFR (CKD-EPI)NonAf 26 (>60 ml/min/1.73 sqM) 09/09/17 13:40 Glucose 89 mg/dL (74-99) 09/09/17 13:40 POC Glucose (mg/dL) 113 mg/dL (75-99) H 09/09/17 20:14 POC Glu Periodicals Clerk REGAN Beni Darlene 09/09/17 20:14 Plasma Lactic Acid Jamar 0.6 mmol/L (0.7-2.0) L 09/09/17 13:40 Calcium 8.8 mg/dL (8.4-10.2) 09/09/17 13:40 Total Bilirubin 0.2 mg/dL (0.2-1.3) 09/09/17 13:40 AST 15 U/L (14-36) 09/09/17 13:40 ALT 23 U/L (9-52) 09/09/17 13:40 Alkaline Phosphatase 73 U/L (38-126) 09/09/17 13:40 Total Protein 6.5 g/dL (6.3-8.2) 09/09/17 13:40 Albumin 3.2 g/dL (3.5-5.0) L 09/09/17 13:40 Comments: X-rays of the bilateral heels are reviewed without evidence of active osteomyelitis by plain films. Assessment and Plan (1) Diabetes mellitus type 2, uncontrolled, with complications Narrative/Plan: 66-year-old female presents to Hospital emergency center after being seen wound healing center for direction. She has worsening of the bilateral heel ulcerations has a cellulitis that has progressed of the left heel as well as the deep tissue injury. Consequently admission initiation of antibiotic therapy with Rocephin and vancomycin based on her prior culture data. We'll further evaluate for underlying bony infection and likely will need a course of antibiotic therapy which she would not be able to do in the home setting. We' ll likely transition to extended care where she will receive antibiotic therapy local wound care and hopefully improvements in overall physical status. Cultures arm process. Pain control appears to be adequate. We'll further evaluate for infection continue antibiotic therapy, local wound care with Silvadene dressings will be utilized as well as offloading. Follow up some blood work and monitor. Current Visit: Yes Status: Acute Code(s): E11.8 - TYPE 2 DIABETES MELLITUS WITH UNSPECIFIED COMPLICATIONS; E11.65 - TYPE 2 DIABETES MELLITUS WITH HYPERGLYCEMIA SNOMED Code(s): 459163500 (2) Diabetic ulcer of left foot due to type 2 diabetes mellitus Current Visit: No Status: Acute Code(s): E11.621 - TYPE 2 DIABETES MELLITUS WITH FOOT ULCER; L97.529 - NON-PRESSURE CHRONIC ULCER OTH PRT LEFT FOOT W UNSP SEVERITY SNOMED Code(s): 3066595880771 (3) Type 2 diabetes mellitus with right diabetic foot ulcer Current Visit: No Status: Acute Code(s): E11.621 - TYPE 2 DIABETES MELLITUS WITH FOOT ULCER SNOMED Code(s): 218639590 (4) Morbid obesity with BMI of 40.0-44.9, adult Current Visit: Yes Status: Acute Code(s): E66.01 - MORBID (SEVERE) OBESITY DUE TO EXCESS CALORIES SNOMED Code(s): 636229915
[2017-09-10] MEDS: CLOTRIMAZOLE TROCHE 10 MG TROCHE MUCOUS MEM SCH ×6 (01:30→23:18)
[2017-09-10] MEDS: HEPARIN SODIUM,PORCINE 5,000 UNIT/ML 1 ML VIAL SQ SCH ×4 (01:30→23:18)
[2017-09-10] MEDS: LORazepam 2 MG/ML INJ IV PRN (01:31)
[2017-09-10 07:13] LABS: Glucose,Whole Blood 80 mg/dL (75-99)
[2017-09-10] MEDS: INSULIN ASPART 100 UNIT/ML 1 ML 10 ML VIAL SQ SCH ×4 (07:15→20:20)
[2017-09-10] MEDS: INSULIN DETEMIR 100 UNIT/ML 10 ML VIAL SQ SCH (08:05)
[2017-09-10] MEDS: glipiZIDE 5 MG TAB PO SCH (08:27)
[2017-09-10] MEDS: amLODIPine 10 MG TAB PO SCH (08:30)
[2017-09-10] MEDS: ASPIRIN 81 MG PO SCH (08:30)
[2017-09-10] MEDS: cefTRIAXone IN SWFI 2,000 MG/20 ML SYRINGE IVP SCH (08:38)
[2017-09-10 08:39] LABS: Albumin 2.4 g/dL (3.5-5.0); Calcium 8.1 mg/dL (8.4-10.2); Magnesium 1.7 mg/dL (1.6-2.3); Phosphorus 4.6 mg/dL (2.5-4.5); Potassium 4.4 mmol/L (3.5-5.1); Total Bilirubin 0.2 mg/dL (0.2-1.3); Total Protein 5.4 g/dL (6.3-8.2)
[2017-09-10] MEDS: LOSARTAN 50 MG TAB PO SCH (08:42)
[2017-09-10] MEDS: PANTOPRAZOLE 40 MG/10 ML VIAL IV SCH (08:42)
[2017-09-10] MEDS: AMMONIUM LACTATE 12% CREAM 140 GM TUBE TOPICAL SCH ×2 (08:44→22:04)
[2017-09-10] MEDS ORDERED: LOSARTAN 50 MG TAB PO SCH (09:00)
[2017-09-10 09:12] LABS: Basophils % (A) 0 %; Eosinophils # (A) 0.5 k/uL (0-0.7); Eosinophils % (A) 6 %; HCT 23.9 % (34.0-46.0); Hypochromasia Moderate; Lymphocytes # (A) 0.7 k/uL (1.0-4.8); Lymphocytes % (A) 9 %; MCH 25.8 pg (25.0-35.0); MCHC 31.5 g/dL (31.0-37.0); Mean Platelet Volume 6.9; Monocytes # (A) 0.3 k/uL (0-1.0); Monocytes % (A) 4 %; Neutrophils # (A) 6.5 k/uL (1.3-7.7); Neutrophils % (A) 80 %; Platelet Count 207 k/uL (150-450); RBC 2.91 m/uL (3.80-5.40); RDW 15.1 % (11.5-15.5); WBC 8.1 k/uL (3.8-10.6)
[2017-09-10 09:33] LABS: HGB 7.5 gm/dL (11.4-16.0)
[2017-09-10 11:23] VITALS: BMI 45.9
[2017-09-10] MEDS: LOVASTATIN 40MG PO SCH (11:29)
[2017-09-10 11:43] LABS: Glucose,Whole Blood 87 mg/dL (75-99)
--- NOTE | 2017-09-10 13:57 | P.PN ---
Subjective Progress Note Date: 09/10/17 Principal diagnosis: Bilateral feet ulcers Feeling ok, no fevers, chills, no nausea or vomiting. Objective - Vital Signs Vital signs: Vital Signs Temp 98.5 F 09/10/17 09:40 Pulse 82 09/10/17 09:40 Resp 16 09/10/17 09:40 BP 157/75 09/10/17 09:40 Pulse Ox 92 L 09/10/17 05:35 Intake & Output 09/09/17 09/10/17 09/10/17 18:59 06:59 18:59 Weight 145.15 kg 145.15 kg Other: Voiding Method Bedside Commode Bedside Commode # Voids 1 1 - Exam Constitutional: No acute distress, conversant, pleasant Eyes:Anicteric sclerae, moist conjunctiva, no lid-lag, PERRLA, ENMT: Oropharynx clear, no erythema, exudates Neck: Supple, FROM, no masses, or JVD, No carotid bruits, No thyromegaly Lungs: Clear to auscultation, Clear to percussion, Normal respiratory effort, no accessory muscle use Cardiovascular: Heart regular in rate and rhythm, No murmurs, gallops, or rubs, No peripheral edema Abdominal: Soft, Nontender, no guarding, rebound or rigidity, Normoactive bowel sounds, No hepatomegaly, No splenomegaly, No palpable mass Skin: Normal temperature, tone, texture, turgor, no induration, No subcutaneous nodules, No rash, lesions, No ulcers Extremities: Bilateral heel ulcers 5X5 cm each with yellow purulent base and clear, serous discharge. No digital cyanosis, No clubbing, Pedal pulses intact and symmetrical, Radial pulses intact and symmetrical, No calf tenderness Psychiatric: Alert and oriented to person, place and time, appropriate affect, intact judgement Neuro: Muscles Strength 5/5 in all 4 extremities, Sensation to light touch grossly present throughout, Cranial nerves II-XII grossly intact, no focal sensory deficits - Labs CBC & Chem 7: 09/10/17 07:09 09/10/17 07:09 Labs: Abnormal Lab Results - Last 24 Hours (Table) 09/09/17 09/09/17 09/09/17 Range/Units 13:40 13:40 20:14 RBC (3.80-5.40) m/uL Hgb (11.4-16.0) gm/dL Hct (34.0-46.0) % Lymphocytes # (1.0-4.8) k/uL Chloride 111 H (98-107) mmol/L BUN 29 H (7-17) mg/dL Creatinine 2.00 H (0.52-1.04) mg/dL Glucose (74-99) mg/dL POC Glucose (mg/dL) 113 H (75-99) mg/dL Plasma Lactic Acid Jamar 0.6 L (0.7-2.0) mmol/L Calcium (8.4-10.2) mg/dL Phosphorus (2.5-4.5) mg/dL AST (14-36) U/L Total Protein (6.3-8.2) g/dL Albumin 3.2 L (3.5-5.0) g/dL 09/10/17 09/10/17 Range/Units 07:09 07:09 RBC 2.91 L (3.80-5.40) m/uL Hgb 7.5 L D (11.4-16.0) gm/dL Hct 23.9 L (34.0-46.0) % Lymphocytes # 0.7 L (1.0-4.8) k/uL Chloride 111 H (98-107) mmol/L BUN 26 H (7-17) mg/dL Creatinine 1.94 H (0.52-1.04) mg/dL Glucose 73 L (74-99) mg/dL POC Glucose (mg/dL) (75-99) mg/dL Plasma Lactic Acid Jamar (0.7-2.0) mmol/L Calcium 8.1 L (8.4-10.2) mg/dL Phosphorus 4.6 H (2.5-4.5) mg/dL AST 13 L (14-36) U/L Total Protein 5.4 L (6.3-8.2) g/dL Albumin 2.4 L (3.5-5.0) g/dL Microbiology - Last 24 Hours (Table) 09/09/17 14:44 Gram Stain - Preliminary Foot - Left Wound Culture - Preliminary Assessment and Plan Plan: 1-Bilateral heels pressure ulcers infection: Continue ceftriaxone and Vanco Bone scan to rule out osteomyelitis 2-Diabetes type 2 Continue home insulin regimen Blood sugars controlled Blood sugar checks per [facility] protocol A1c checked early this month, 5.7 3-Hyperlipidemia, Hypertension, Osteoarthritis (OA): All stable Continue home meds. 4-DVT prophylaxis: Heparin s.q Anticipated disposition: rehab.
[2017-09-10] MEDS: VANCOMYCIN 2,000 MG in SODIUM CHLORIDE 0.9% 500 ML IVPB SCH (15:15)
--- NOTE | 2017-09-10 15:34 | NM ---
EXAMINATION TYPE: NM bone 3 phase DATE OF EXAM: 09/10/2017 COMPARISON: Prior 3 phase bone scan July 26, 2017. HISTORY: Osteomyelitis of heels with bilateral open sores Triple phase bone scintigraphy was performed following the injection of 27.0 mCi Tc 99m MDP. Immedia te images and 4 hours post injection images acquired. FINDINGS: Dynamic arterial phase images show mild increase uptake bilateral heel level the less prominent versu s prior bone scan. Soft tissue phase shows mild increase uptake bilateral heels, this is more promine nt on left side versus prior but less prominent on right side versus prior. Delayed phase images show mild broad persistent increased radiotracer uptake in the right hindfoot involving distal tibia and likely navicular bone to lesser degree the calcaneus Where there is more prominent radiotracer uptak e on arterial and soft tissue phase images. Left foot show stable focus of radiotracer uptake within the posterior central calcaneus. IMPRESSION: No convincing evidence of three-phase radiotracer focal uptake in the right calcaneus to suggest acute osteomyelitis, improved findings from prior study. Cannot exclude small focus of acute osteomyelitis involving left calcaneus as this is slightly more prominent on soft tissue phase images versus prior and shows no significant interval change on delayed phased images versus prior.
[2017-09-10 17:04] LABS: Glucose,Whole Blood 90 mg/dL (75-99)
[2017-09-10] MEDS: traMADol 50 MG TAB PO PRN (19:37)
[2017-09-10] MEDS: SODIUM CHLORIDE 0.9% 1,000 ML IV SCH ×3 (19:44→23:18)
[2017-09-10 20:12] LABS: Glucose,Whole Blood 113 mg/dL (75-99)
--- NOTE | 2017-09-10 23:36 | P.PN ---
Subjective Progress Note Date: 09/10/17 66-year-old female who has superobesity and diabetes mellitus type 2 presents the wound healing Center within a month of her most recent visit. She had been the patient wound healing center for quite some time. With a course of intravenous antibiotic therapy for her MRSA infection, hyperbaric oxygen therapy, and a total contact cast she finally achieved healing. She was doing well relates that she injured her foot in the shower. The ulceration has reopened. And she presents back to the wound center for further intervention. She is evidence of open ulceration at the site of prior ulcer. She has neuropathy and does not have great sensation at the site. She denying fevers chills or rigors or sweats. Prior data is reviewed and shows that her hemoglobin A1c had been 12 and last check was 7.6. Her prealbumin was also low but has improved with her protein intake. Recently she's had significant complications with her bilateral heel ulcerations. Left heel ulceration healed with a total contact cast. As well as her prior course of antibiotics and wound care. Local therapy was applied in a total contact cast was applied to the right lower leg to try to use the significant ulceration that developed at that site. Evaluation revealed evidence of osteomyelitis and she's now completed 6 weeks of oral antibiotic therapy with marked improvement. With a total contact cast in place to right showing improvement however the left foot markedly worsened it became a large blistered open ulceration with deep tissue injury concerns for deeper infection. Because the significant difficulty she was advised admission to hospital for local care, antibiotic therapy, and plans for how she can be best cared for in the future. She agrees and is now comfortable emergency center for admission. Antibiotic therapy has been initiated. 09/10/2017 reveals the patient be feeling slightly better. She is denying significant new difficulties such as fevers chills or Reiger's. Continues to have any open ulcerations and drainage. Blood glucoses are improving with the current regiment and is trying to do well with a high-protein diet. Objective - Vital Signs Vital signs: Vital Signs Temp 97.3 F L 09/10/17 21:30 Pulse 79 09/10/17 21:30 Resp 16 09/10/17 21:30 BP 155/73 09/10/17 21:30 Pulse Ox 95 09/10/17 21:30 Intake & Output 06/09/10/17 09/11/17 06:59 18:59 06:59 Intake Total 840 960 Balance 840 960 Weight 145.15 kg Intake: Intake, IV Titration 840 960 Amount Sodium Chloride 0.9% 1, 840 960 000 ml @ 120 mls/hr IV . Q8H20M [facility] Rx#:[id number] Other: Voiding Method Bedside Commode Bedside Commode # Voids 1 1 2 - Exam 66-year-old female who is superobesity is without significant discomfort at this time. HEENT: Anicteric conjunctiva are pink and moist nasal mucosa grossly intact without significant lesions, there is no thrush. Very poor dentition Neck: The neck is supple without significant lymphadenopathy or thyromegaly. Lungs: There is symmetrical air entry, few expiratory wheezes, no bronchial sounds. No dullness or egophony Heart: Regular rate and rhythm with an audible S1-S2, no S3 without S4. There is no significant murmur click or rub, PMI was nondisplaced. Abdomen: Obese Positive bowel sounds soft and nontender without palpable masses or organomegaly. There was no guarding or rebound. Extremities: The upper extremities have excellent pulses they are symmetric, no significant petechiae or telangiectasia. No splinter hemorrhages were noted. The right lower extremity as the extensive ulcerations of the heel as of the left heel. Please see nursing photography for the measurements and exact locations of these extensive ulcerations. There is surrounding erythema drainage and tenderness, there is minimal ascending erythema at the ankle level - Labs CBC & Chem 7: 09/10/17 07:09 09/10/17 07:09 Labs: Abnormal Lab Results - Last 24 Hours (Table) 09/10/17 09/10/17 09/10/17 Range/Units 07:09 07:09 20:08 RBC 2.91 L (3.80-5.40) m/uL Hgb 7.5 L D (11.4-16.0) gm/dL Hct 23.9 L (34.0-46.0) % Lymphocytes # 0.7 L (1.0-4.8) k/uL Chloride 111 H (98-107) mmol/L BUN 26 H (7-17) mg/dL Creatinine 1.94 H (0.52-1.04) mg/dL Glucose 73 L (74-99) mg/dL POC Glucose (mg/dL) 113 H (75-99) mg/dL Calcium 8.1 L (8.4-10.2) mg/dL Phosphorus 4.6 H (2.5-4.5) mg/dL AST 13 L (14-36) U/L Total Protein 5.4 L (6.3-8.2) g/dL Albumin 2.4 L (3.5-5.0) g/dL Microbiology - Last 24 Hours (Table) 09/09/17 15:47 Blood Culture - Preliminary Blood No Growth after 24 hours 09/09/17 14:44 Gram Stain - Preliminary Foot - Left Wound Culture - Preliminary Presumptive MRSA Laboratory Results WBC 8.1 k/uL (3.8-10.6) 09/10/17 07:09 RBC 2.91 m/uL (3.80-5.40) L 09/10/17 07:09 Hgb 7.5 gm/dL (11.4-16.0) L D 09/10/17 07:09 Hct 23.9 % (34.0-46.0) L 09/10/17 07:09 MCV 82.0 fL (80.0-100.0) 09/10/17 07:09 MCH 25.8 pg (25.0-35.0) 09/10/17 07:09 MCHC 31.5 g/dL (31.0-37.0) 09/10/17 07:09 RDW 15.1 % (11.5-15.5) 09/10/17 07:09 Plt Count 207 k/uL (150-450) 09/10/17 07:09 Neutrophils % 80 % 09/10/17 07:09 Lymphocytes % 9 % 09/10/17 07:09 Monocytes % 4 % 09/10/17 07:09 Eosinophils % 6 % 09/10/17 07:09 Basophils % 0 % 09/10/17 07:09 Neutrophils # 6.5 k/uL (1.3-7.7) 09/10/17 07:09 Lymphocytes # 0.7 k/uL (1.0-4.8) L 09/10/17 07:09 Monocytes # 0.3 k/uL (0-1.0) 09/10/17 07:09 Eosinophils # 0.5 k/uL (0-0.7) 09/10/17 07:09 Basophils # 0.0 k/uL (0-0.2) 09/10/17 07:09 Hypochromasia Moderate 09/10/17 07:09 Sodium 142 mmol/L (137-145) 09/10/17 07:09 Potassium 4.4 mmol/L (3.5-5.1) 09/10/17 07:09 Chloride 111 mmol/L (98-107) H 09/10/17 07:09 Carbon Dioxide 24 mmol/L (22-30) 09/10/17 07:09 Anion Gap 7 mmol/L 09/10/17 07:09 BUN 26 mg/dL (7-17) H 09/10/17 07:09 Creatinine 1.94 mg/dL (0.52-1.04) H 09/10/17 07:09 Est GFR (CKD-EPI)AfAm 31 (>60 ml/min/1.73 sqM) 09/10/17 07:09 Est GFR (CKD-EPI)NonAf 27 (>60 ml/min/1.73 sqM) 09/10/17 07:09 Glucose 73 mg/dL (74-99) L 09/10/17 07:09 POC Glucose (mg/dL) 113 mg/dL (75-99) H 09/10/17 20:08 POC Glu Tire Design Engineer ID Elizabeth Burt 09/10/17 20:[address] Glu mg/dL 108 09/09/17 13:40 Hemoglobin A1c 5.4 % (4.0-6.0) 09/09/17 13:40 Plasma Lactic Acid Jamar 0.6 mmol/L (0.7-2.0) L 09/09/17 13:40 Calcium 8.1 mg/dL (8.4-10.2) L 09/10/17 07:09 Phosphorus 4.6 mg/dL (2.5-4.5) H 09/10/17 07:09 Magnesium 1.7 mg/dL (1.6-2.3) 09/10/17 07:09 Total Bilirubin 0.2 mg/dL (0.2-1.3) 09/10/17 07:09 AST 13 U/L (14-36) L 09/10/17 07:09 ALT 22 U/L (9-52) 09/10/17 07:09 Alkaline Phosphatase 55 U/L (38-126) 09/10/17 07:09 Total Protein 5.4 g/dL (6.3-8.2) L 09/10/17 07:09 Albumin 2.4 g/dL (3.5-5.0) L 09/10/17 07:09 Microbiology 09/09/17 15:47 Blood Blood Culture - Preliminary No Growth after 24 hours 09/09/17 14:44 Foot - Left Gram Stain - Preliminary 09/09/17 14:44 Foot - Left Wound Culture - Preliminary Presumptive MRSA - Imaging and Cardiology Bone scan is pending Assessment and Plan (1) Diabetes mellitus type 2, uncontrolled, with complications Narrative/Plan: 66-year-old female presents to Hospital emergency center after being seen wound healing center for direction. She has worsening of the bilateral heel ulcerations has a cellulitis that has progressed of the left heel as well as the deep tissue injury. Consequently admission initiation of antibiotic therapy with Rocephin and vancomycin based on her prior culture data. We'll further evaluate for underlying bony infection and likely will need a course of antibiotic therapy which she would not be able to do in the home setting. We' ll likely transition to extended care where she will receive antibiotic therapy local wound care and hopefully improvements in overall physical status. Cultures arm process. Pain control appears to be adequate. We'll further evaluate for infection continue antibiotic therapy, local wound care with Silvadene dressings will be utilized as well as offloading. Follow up some blood work and monitor. 09/10/2017 patient is feeling slightly better today. Bone scan is pending to further evaluate the extensive infection. Culture will likely have MRSA. Continue current antibiotic therapy. Will likely need placement of IV access for ongoing intravenous antibiotic therapy, local wound care, therapy and hopeful further wound healing and then resume her independent living Current Visit: Yes Status: Acute Code(s): E11.8 - TYPE 2 DIABETES MELLITUS WITH UNSPECIFIED COMPLICATIONS; E11.65 - TYPE 2 DIABETES MELLITUS WITH HYPERGLYCEMIA SNOMED Code(s): 078613166 (2) Diabetic ulcer of left foot due to type 2 diabetes mellitus Current Visit: No Status: Acute Code(s): E11.621 - TYPE 2 DIABETES MELLITUS WITH FOOT ULCER; L97.529 - NON-PRESSURE CHRONIC ULCER OTH PRT LEFT FOOT W UNSP SEVERITY SNOMED Code(s): 8256601809855 (3) Type 2 diabetes mellitus with right diabetic foot ulcer Current Visit: No Status: Acute Code(s): E11.621 - TYPE 2 DIABETES MELLITUS WITH FOOT ULCER SNOMED Code(s): 578618081 (4) Morbid obesity with BMI of 40.0-44.9, adult Current Visit: Yes Status: Acute Code(s): E66.01 - MORBID (SEVERE) OBESITY DUE TO EXCESS CALORIES SNOMED Code(s): 226314297
[2017-09-11] MEDS: SODIUM CHLORIDE 0.9% 1,000 ML IV SCH ×3 (01:50→16:36)
[2017-09-11] MEDS ORDERED: CLOTRIMAZOLE TROCHE 10 MG TROCHE ONE (06:00)
[2017-09-11 06:57] LABS: Glucose,Whole Blood 83 mg/dL (75-99)
[2017-09-11] MEDS ORDERED: LOSARTAN 50 MG TAB ONE (09:00)
[2017-09-11] MEDS ORDERED: ASPIRIN 81 MG ONE (09:00)
[2017-09-11] MEDS ORDERED: HEPARIN SODIUM,PORCINE 5,000 UNIT/ML 1 ML VIAL ONE (09:00)
[2017-09-11] MEDS ORDERED: PANTOPRAZOLE 40 MG/10 ML VIAL ONE (09:00)
[2017-09-11] MEDS ORDERED: INSULIN ASPART 100 UNIT/ML 1 ML 10 ML VIAL SQ ONE (09:00)
[2017-09-11] MEDS ORDERED: INSULIN DETEMIR 100 UNIT/ML 10 ML VIAL SQ ONE (09:00)
[2017-09-11] MEDS ORDERED: glipiZIDE 5 MG TAB ONE (09:00)
[2017-09-11] MEDS ORDERED: amLODIPine 10 MG TAB ONE (09:00)
[2017-09-11] MEDS ORDERED: ACETAMINOPHEN TAB 325 MG TAB ONE (09:00)
[2017-09-11] MEDS: CLOTRIMAZOLE TROCHE 10 MG TROCHE MUCOUS MEM SCH ×4 (10:51→19:39)
[2017-09-11] MEDS: glipiZIDE 5 MG TAB PO SCH (10:51)
[2017-09-11] MEDS: INSULIN ASPART 100 UNIT/ML 1 ML 10 ML VIAL SQ SCH ×4 (10:51→20:27)
[2017-09-11] MEDS: HEPARIN SODIUM,PORCINE 5,000 UNIT/ML 1 ML VIAL SQ SCH ×2 (10:52→16:31)
[2017-09-11] MEDS: LOVASTATIN 40MG PO SCH (10:52)
[2017-09-11] MEDS: ASPIRIN 81 MG PO SCH (10:52)
[2017-09-11] MEDS: LOSARTAN 50 MG TAB PO SCH (10:52)
[2017-09-11] MEDS: amLODIPine 10 MG TAB PO SCH (10:52)
[2017-09-11] MEDS: AMMONIUM LACTATE 12% CREAM 140 GM TUBE TOPICAL SCH ×2 (10:52→19:39)
[2017-09-11] MEDS: INSULIN DETEMIR 100 UNIT/ML 10 ML VIAL SQ SCH (10:52)
[2017-09-11] MEDS: cefTRIAXone IN SWFI 2,000 MG/20 ML SYRINGE IVP SCH (10:52)
[2017-09-11] MEDS: PANTOPRAZOLE 40 MG/10 ML VIAL IV SCH (10:53)
[2017-09-11 10:55] LABS: Glucose,Whole Blood 115 mg/dL (75-99)
[2017-09-11 13:00] LABS: HCT 25.5 % (34.0-46.0); Hypochromasia Marked; MCH 25.7 pg (25.0-35.0); MCHC 31.5 g/dL (31.0-37.0); MCV 81.8 fL (80.0-100.0); Mean Platelet Volume 6.9; Platelet Count 210 k/uL (150-450); RBC 3.11 m/uL (3.80-5.40); RDW 14.8 % (11.5-15.5); WBC 7.8 k/uL (3.8-10.6)
[2017-09-11 13:29] LABS: Calcium 8.1 mg/dL (8.4-10.2); Magnesium 1.7 mg/dL (1.6-2.3); Phosphorus 4.7 mg/dL (2.5-4.5); Potassium 4.4 mmol/L (3.5-5.1)
[2017-09-11 15:02] VITALS: RESP 18
--- NOTE | 2017-09-11 15:42 | P.PN ---
Subjective Progress Note Date: 09/11/17 Principal diagnosis: Bilateral feet ulcers Doing ok, no new complaints. Objective - Vital Signs Vital signs: Vital Signs Temp 98.2 F 09/11/17 15:00 Pulse 85 09/11/17 15:31 Resp 18 09/11/17 15:31 BP 157/68 09/11/17 15:00 Pulse Ox 97 09/11/17 15:00 Intake & Output 09/10/17 09/11/17 09/11/17 18:59 06:59 18:59 Intake Total 840 960 840 Balance 840 960 840 Weight 145.15 kg 145.15 kg Intake: Intake, IV Titration 840 960 840 Amount Sodium Chloride 0.9% 1, 840 960 840 000 ml @ 120 mls/hr IV . Q8H20M [facility] Rx#:[id number] Other: Voiding Method Bedside Commode Bedside Commode Bedside Commode # Voids 1 1 1 # Bowel Movements 1 - Exam Constitutional: No acute distress, conversant, pleasant Eyes:Anicteric sclerae, moist conjunctiva, no lid-lag, PERRLA, ENMT: Oropharynx clear, no erythema, exudates Neck: Supple, FROM, no masses, or JVD, No carotid bruits, No thyromegaly Lungs: Clear to auscultation, Clear to percussion, Normal respiratory effort, no accessory muscle use Cardiovascular: Heart regular in rate and rhythm, No murmurs, gallops, or rubs, No peripheral edema Abdominal: Soft, Nontender, no guarding, rebound or rigidity, Normoactive bowel sounds, No hepatomegaly, No splenomegaly, No palpable mass Skin: Normal temperature, tone, texture, turgor, no induration, No subcutaneous nodules, No rash, lesions, No ulcers Extremities: Bilateral heel ulcers 5X5 cm each with yellow purulent base and clear, serous discharge. No digital cyanosis, No clubbing, Pedal pulses intact and symmetrical, Radial pulses intact and symmetrical, No calf tenderness Psychiatric: Alert and oriented to person, place and time, appropriate affect, intact judgement Neuro: Muscles Strength 5/5 in all 4 extremities, Sensation to light touch grossly present throughout, Cranial nerves II-XII grossly intact, no focal sensory deficits - Labs CBC & Chem 7: 09/11/17 12:36 09/11/17 12:36 Labs: Abnormal Lab Results - Last 24 Hours (Table) 09/10/17 09/11/17 09/11/17 Range/Units 20:08 10:51 12:36 RBC 3.11 L (3.80-5.40) m/uL Hgb 8.0 L (11.4-16.0) gm/dL Hct 25.5 L (34.0-46.0) % Chloride (98-107) mmol/L Carbon Dioxide (22-30) mmol/L BUN (7-17) mg/dL Creatinine (0.52-1.04) mg/dL Glucose (74-99) mg/dL POC Glucose (mg/dL) 113 H 115 H (75-99) mg/dL Calcium (8.4-10.2) mg/dL Phosphorus (2.5-4.5) mg/dL 09/11/17 Range/Units 12:36 RBC (3.80-5.40) m/uL Hgb (11.4-16.0) gm/dL Hct (34.0-46.0) % Chloride 112 H (98-107) mmol/L Carbon Dioxide 21 L (22-30) mmol/L BUN 25 H (7-17) mg/dL Creatinine 1.90 H (0.52-1.04) mg/dL Glucose 112 H (74-99) mg/dL POC Glucose (mg/dL) (75-99) mg/dL Calcium 8.1 L (8.4-10.2) mg/dL Phosphorus 4.7 H (2.5-4.5) mg/dL Microbiology - Last 24 Hours (Table) 09/09/17 14:44 Gram Stain - Final Foot - Left Wound Culture - Final Methicillin resist S. aureus 09/09/17 15:47 Blood Culture - Preliminary Blood No Growth after 24 hours Assessment and Plan Plan: 1-Bilateral heels pressure ulcers infection: Continue ceftriaxone and Vanco Bone scan---no osteomyelitis D/W ID, will d/c to NH with IV abx vanco for 4-[address] PICC line 2-Diabetes type 2 Continue home insulin regimen Blood sugars controlled Blood sugar checks per [facility] protocol A1c checked early this month, 5.7 3-Hyperlipidemia, Hypertension, Osteoarthritis (OA): All stable Continue home meds. 4-Chronic renal failure stage 3 Consult nephrology for clearance for the picc line. 5-DVT prophylaxis: Heparin s.q D/W care management Anticipated disposition: rehab.
[2017-09-11 17:16] LABS: Glucose,Whole Blood 117 mg/dL (75-99)
[2017-09-11] MEDS: traMADol 50 MG TAB PO PRN (19:38)
[2017-09-11 20:22] LABS: Glucose,Whole Blood 117 mg/dL (75-99)
--- NOTE | 2017-09-11 22:20 | P.PN ---
Subjective Progress Note Date: 09/11/17 66-year-old female who has superobesity and diabetes mellitus type 2 presents the wound healing Center within a month of her most recent visit. She had been the patient wound healing center for quite some time. With a course of intravenous antibiotic therapy for her MRSA infection, hyperbaric oxygen therapy, and a total contact cast she finally achieved healing. She was doing well relates that she injured her foot in the shower. The ulceration has reopened. And she presents back to the wound center for further intervention. She is evidence of open ulceration at the site of prior ulcer. She has neuropathy and does not have great sensation at the site. She denying fevers chills or rigors or sweats. Prior data is reviewed and shows that her hemoglobin A1c had been 12 and last check was 7.6. Her prealbumin was also low but has improved with her protein intake. Recently she's had significant complications with her bilateral heel ulcerations. Left heel ulceration healed with a total contact cast. As well as her prior course of antibiotics and wound care. Local therapy was applied in a total contact cast was applied to the right lower leg to try to use the significant ulceration that developed at that site. Evaluation revealed evidence of osteomyelitis and she's now completed 6 weeks of oral antibiotic therapy with marked improvement. With a total contact cast in place to right showing improvement however the left foot markedly worsened it became a large blistered open ulceration with deep tissue injury concerns for deeper infection. Because the significant difficulty she was advised admission to hospital for local care, antibiotic therapy, and plans for how she can be best cared for in the future. She agrees and is now comfortable emergency center for admission. Antibiotic therapy has been initiated. 09/10/2017 reveals the patient be feeling slightly better. She is denying significant new difficulties such as fevers chills or Reiger's. Continues to have any open ulcerations and drainage. Blood glucoses are improving with the current regiment and is trying to do well with a high-protein diet. 09/12/19 patient is feeling slightly better today except has had and a mildly disruptive roommate. Overall she is feeling slightly better. With the offloaded, received local wound care and antibiotic therapy Objective - Vital Signs Vital signs: Vital Signs Temp 97.6 F 09/11/17 20:15 Pulse 83 09/11/17 20:15 Resp 18 09/11/17 20:15 BP 147/67 09/11/17 20:15 Pulse Ox 93 L 09/11/17 20:15 Intake & Output 09/11/17 09/11/17 09/12/17 06:59 18:59 06:59 Intake Total 960 840 Balance 960 840 Weight 145.15 kg Intake: Intake, IV Titration 960 840 Amount Sodium Chloride 0.9% 1, 960 840 000 ml @ 120 mls/hr IV . Q8H20M [facility] Rx#:[id number] Other: Voiding Method Bedside Commode Bedside Commode # Voids 1 1 1 # Bowel Movements 1 1 - Exam 66-year-old female who is superobesity is without significant discomfort at this time. HEENT: Anicteric conjunctiva are pink and moist nasal mucosa grossly intact without significant lesions, there is no thrush. Very poor dentition Neck: The neck is supple without significant lymphadenopathy or thyromegaly. Lungs: There is symmetrical air entry, few expiratory wheezes, no bronchial sounds. No dullness or egophony Heart: Regular rate and rhythm with an audible S1-S2, no S3 without S4. There is no significant murmur click or rub, PMI was nondisplaced. Abdomen: Obese Positive bowel sounds soft and nontender without palpable masses or organomegaly. There was no guarding or rebound. Extremities: The upper extremities have excellent pulses they are symmetric, no significant petechiae or telangiectasia. No splinter hemorrhages were noted. The right lower extremity as the extensive ulcerations of the heel as of the left heel. Please see nursing photography for the measurements and exact locations of these extensive ulcerations. There is surrounding erythema drainage and tenderness, there is minimal ascending erythema at the ankle level - Labs CBC & Chem 7: 09/11/17 12:36 09/11/17 12:36 Labs: Abnormal Lab Results - Last 24 Hours (Table) 09/11/17 09/11/17 09/11/17 Range/Units 10:51 12:36 12:36 RBC 3.11 L (3.80-5.40) m/uL Hgb 8.0 L (11.4-16.0) gm/dL Hct 25.5 L (34.0-46.0) % Chloride 112 H (98-107) mmol/L Carbon Dioxide 21 L (22-30) mmol/L BUN 25 H (7-17) mg/dL Creatinine 1.90 H (0.52-1.04) mg/dL Glucose 112 H (74-99) mg/dL POC Glucose (mg/dL) 115 H (75-99) mg/dL Calcium 8.1 L (8.4-10.2) mg/dL Phosphorus 4.7 H (2.5-4.5) mg/dL 09/11/17 09/11/17 Range/Units 17:13 20:20 RBC (3.80-5.40) m/uL Hgb (11.4-16.0) gm/dL Hct (34.0-46.0) % Chloride (98-107) mmol/L Carbon Dioxide (22-30) mmol/L BUN (7-17) mg/dL Creatinine (0.52-1.04) mg/dL Glucose (74-99) mg/dL POC Glucose (mg/dL) 117 H 117 H (75-99) mg/dL Calcium (8.4-10.2) mg/dL Phosphorus (2.5-4.5) mg/dL Microbiology - Last 24 Hours (Table) 09/09/17 15:47 Blood Culture - Preliminary Blood No Growth after 48 hours 09/09/17 14:44 Gram Stain - Final Foot - Left Wound Culture - Final Methicillin resist S. aureus Laboratory Results WBC 7.8 k/uL (3.8-10.6) 09/11/17 12:36 RBC 3.11 m/uL (3.80-5.40) L 09/11/17 12:36 Hgb 8.0 gm/dL (11.4-16.0) L 09/11/17 12:36 Hct 25.5 % (34.0-46.0) L 09/11/17 12:36 MCV 81.8 fL (80.0-100.0) 09/11/17 12:36 MCH 25.7 pg (25.0-35.0) 09/11/17 12:36 MCHC 31.5 g/dL (31.0-37.0) 09/11/17 12:36 RDW 14.8 % (11.5-15.5) 09/11/17 12:36 Plt Count 210 k/uL (150-450) 09/11/17 12:36 Neutrophils % 80 % 09/10/17 07:09 Lymphocytes % 9 % 09/10/17 07:09 Monocytes % 4 % 09/10/17 07:09 Eosinophils % 6 % 09/10/17 07:09 Basophils % 0 % 09/10/17 07:09 Neutrophils # 6.5 k/uL (1.3-7.7) 09/10/17 07:09 Lymphocytes # 0.7 k/uL (1.0-4.8) L 09/10/17 07:09 Monocytes # 0.3 k/uL (0-1.0) 09/10/17 07:09 Eosinophils # 0.5 k/uL (0-0.7) 09/10/17 07:09 Basophils # 0.0 k/uL (0-0.2) 09/10/17 07:09 Hypochromasia Marked 09/11/17 12:36 Sodium 141 mmol/L (137-145) 09/11/17 12:36 Potassium 4.4 mmol/L (3.5-5.1) 09/11/17 12:36 Chloride 112 mmol/L (98-107) H 09/11/17 12:36 Carbon Dioxide 21 mmol/L (22-30) L 09/11/17 12:36 Anion Gap 8 mmol/L 09/11/17 12:36 BUN 25 mg/dL (7-17) H 09/11/17 12:36 Creatinine 1.90 mg/dL (0.52-1.04) H 09/11/17 12:36 Est GFR (CKD-EPI)AfAm 32 (>60 ml/min/1.73 sqM) 09/11/17 12:36 Est GFR (CKD-EPI)NonAf 28 (>60 ml/min/1.73 sqM) 09/11/17 12:36 Glucose 112 mg/dL (74-99) H 09/11/17 12:36 POC Glucose (mg/dL) 117 mg/dL (75-99) H 09/11/17 20:20 POC Glu [employer] Operator Haritha Luke 09/11/17 20:[address] Glu mg/dL 108 09/09/17 13:40 Hemoglobin A1c 5.4 % (4.0-6.0) 09/09/17 13:40 Plasma Lactic Acid Jamar 0.6 mmol/L (0.7-2.0) L 09/09/17 13:40 Calcium 8.1 mg/dL (8.4-10.2) L 09/11/17 12:36 Phosphorus 4.7 mg/dL (2.5-4.5) H 09/11/17 12:36 Magnesium 1.7 mg/dL (1.6-2.3) 09/11/17 12:36 Total Bilirubin 0.2 mg/dL (0.2-1.3) 09/10/17 07:09 AST 13 U/L (14-36) L 09/10/17 07:09 ALT 22 U/L (9-52) 09/10/17 07:09 Alkaline Phosphatase 55 U/L (38-126) 09/10/17 07:09 Total Protein 5.4 g/dL (6.3-8.2) L 09/10/17 07:09 Albumin 2.4 g/dL (3.5-5.0) L 09/10/17 07:09 Microbiology 09/09/17 15:47 Blood Blood Culture - Preliminary No Growth after 48 hours 09/09/17 14:44 Foot - Left Gram Stain - Final 09/09/17 14:44 Foot - Left Wound Culture - Final Methicillin resist S. aureus - Imaging and Cardiology Bone scan reveals evidence of the osteomyelitis of the left heel Assessment and Plan (1) Diabetes mellitus type 2, uncontrolled, with complications Narrative/Plan: 66-year-old female presents to Hospital emergency center after being seen wound healing center for direction. She has worsening of the bilateral heel ulcerations has a cellulitis that has progressed of the left heel as well as the deep tissue injury. Consequently admission initiation of antibiotic therapy with Rocephin and vancomycin based on her prior culture data. We'll further evaluate for underlying bony infection and likely will need a course of antibiotic therapy which she would not be able to do in the home setting. We' ll likely transition to extended care where she will receive antibiotic therapy local wound care and hopefully improvements in overall physical status. Cultures arm process. Pain control appears to be adequate. We'll further evaluate for infection continue antibiotic therapy, local wound care with Silvadene dressings will be utilized as well as offloading. Follow up some blood work and monitor. 09/10/2017 patient is feeling slightly better today. Bone scan is pending to further evaluate the extensive infection. Culture will likely have MRSA. Continue current antibiotic therapy. Will likely need placement of IV access for ongoing intravenous antibiotic therapy, local wound care, therapy and hopeful further wound healing and then resume her independent living 09/11/2017 patient does have some further improvement today. The bone scan does reveal evidence of the os myelitis left heel. Intravenous access is been placed and will continue antibiotic therapy with vancomycin with evidence of MRSA at that site. We'll continue local wound care at this time. Ongoing plans for discharge to extended care facility when can be arranged to receive her therapy and antibiotic therapy. She will follow-up with the wound healing Center and we will consider reapplication of total contact cast once infection has started to improve. Current Visit: Yes Status: Acute Code(s): E11.8 - TYPE 2 DIABETES MELLITUS WITH UNSPECIFIED COMPLICATIONS; E11.65 - TYPE 2 DIABETES MELLITUS WITH HYPERGLYCEMIA SNOMED Code(s): 235865555 (2) Diabetic ulcer of left foot due to type 2 diabetes mellitus Current Visit: No Status: Acute Code(s): E11.621 - TYPE 2 DIABETES MELLITUS WITH FOOT ULCER; L97.529 - NON-PRESSURE CHRONIC ULCER OTH PRT LEFT FOOT W UNSP SEVERITY SNOMED Code(s): 4510985853136 (3) Type 2 diabetes mellitus with right diabetic foot ulcer Current Visit: No Status: Acute Code(s): E11.621 - TYPE 2 DIABETES MELLITUS WITH FOOT ULCER SNOMED Code(s): 429346724 (4) Morbid obesity with BMI of 40.0-44.9, adult Current Visit: Yes Status: Acute Code(s): E66.01 - MORBID (SEVERE) OBESITY DUE TO EXCESS CALORIES SNOMED Code(s): 684523755
[2017-09-11] MEDS: LORazepam 2 MG/ML INJ IV PRN (23:23)
[2017-09-12] MEDS: CLOTRIMAZOLE TROCHE 10 MG TROCHE MUCOUS MEM SCH ×5 (00:42→20:38)
[2017-09-12] MEDS: HEPARIN SODIUM,PORCINE 5,000 UNIT/ML 1 ML VIAL SQ SCH ×4 (00:42→16:02)
[2017-09-12] MEDS: SODIUM CHLORIDE 0.9% 1,000 ML IV SCH ×2 (05:25→13:33)
[2017-09-12 06:57] LABS: Glucose,Whole Blood 104 mg/dL (75-99)
[2017-09-12] MEDS: INSULIN ASPART 100 UNIT/ML 1 ML 10 ML VIAL SQ SCH ×4 (07:17→20:13)
[2017-09-12] MEDS: glipiZIDE 5 MG TAB PO SCH (08:30)
[2017-09-12] MEDS: LOSARTAN 50 MG TAB PO SCH (08:30)
[2017-09-12] MEDS: PANTOPRAZOLE 40 MG TABLET PO SCH (08:30)
[2017-09-12] MEDS: ASPIRIN 81 MG PO SCH (08:30)
[2017-09-12] MEDS: amLODIPine 10 MG TAB PO SCH (08:30)
[2017-09-12] MEDS: cefTRIAXone IN SWFI 2,000 MG/20 ML SYRINGE IVP SCH (08:31)
[2017-09-12] MEDS: INSULIN DETEMIR 100 UNIT/ML 10 ML VIAL SQ SCH (08:32)
[2017-09-12] MEDS: AMMONIUM LACTATE 12% CREAM 140 GM TUBE TOPICAL SCH ×2 (08:32→20:39)
[2017-09-12] MEDS ORDERED: ERGOCALCIFEROL 50,000 UNIT CAP PO SCH (09:30)
[2017-09-12] MEDS: LOVASTATIN 40MG PO SCH (09:36)
[2017-09-12 11:06] LABS: Glucose,Whole Blood 98 mg/dL (75-99)
[2017-09-12] MEDS ORDERED: LIDOCAINE 1% INJ 10MG/ML (20 ML MDV) SQ ONE ×2 (14:26→14:45)
--- NOTE | 2017-09-12 15:07 | IR ---
EXAMINATION TYPE: IR cvc insert >=5 years DATE OF EXAM: 09/12/2017 COMPARISON: NONE CLINICAL HISTORY: Infection Needs long-term intravenous access for antibiotics. PROCEDURE: After informed consent, the skin overlying the right basilic vein was localized with ultrasound and n oted to be compressible and patent. An ultrasound image was obtained and submitted on the patient's chart. The overlying skin was prepped and draped and Lidocaine was used for local anesthesia. A ski n pramod was made with a scalpel. Access was gained to the vein under ultrasound guidance with a 21 ga uge needle and a 0.018 inch wire was advanced. Access site was dilated with Peel-Away sheath and cat heter tailored to the appropriate length and advanced such that the distal tip is at the cavoatrial j unction. Spot image was obtained verifying placement. Catheter was fixed to the skin and a sterile dressing was placed following hemostasis. Catheter was aspirated and flushed with saline. Patient was discharged in stable condition without complication. Maximal barrier technique is utilized. Ultr asound image is documented on the chart. Ultrasound used with sterile technique. Fluoro time and fluoroscopic images submitted to document procedure: 76 intraoperative C-arm images, 0.4 minutes fluoroscopy time IMPRESSION: STATUS POST ULTRASOUND AND FLUOROSCOPIC GUIDED PICC LINE PLACEMENT, READY FOR USE. THIS PROCEDURE WAS PERFORMED BY THE UNDERSIGNED.
[2017-09-12] MEDS: VANCOMYCIN 2,000 MG in SODIUM CHLORIDE 0.9% 500 ML IVPB SCH (15:49)
--- NOTE | 2017-09-12 17:01 | CONS ---
CONSULTATION REASON FOR CONSULT: Renal failure. HISTORY OF PRESENT ILLNESS: The patient is a 66-year-old female who was admitted to the hospital on 09/09/2017 with drainage and worsening wounds in both her heels. The patient has been seen in the [facility] as outpatient and she has had multiple antibiotic treatments. She has underlying MRSA wound infection and needs a PICC line to proceed with prolonged IV antibiotics. Patient needs clearance to obtain the PICC line. Her creatinine was 2.0 on admission, now it has been about 1.9 mg/dL. Review of previous labs shows serum creatinine about 1.7-1.8 in May of 2017. The patient states she has been voiding. She is incontinent. Blood pressure is not low. Systolic about 140s to 150s mmHg. Patient is maintained on ibuprofen. She is also on Cozaar. I do not have a vancomycin level. The patient is now is currently on vancomycin. Wound culture of 09/09 grew MRSA. PAST MEDICAL HISTORY: Chronic foot wounds, being followed by ID and at the [facility]ound Clinic, morbid obesity, type 2 diabetes, hyperlipidemia, hypertension, osteoarthritis, chronic kidney disease, not being followed as outpatient. It appears the patient has Stage 3, cataract status post surgery. PAST SURGICAL HISTORY: Appendectomy, cholecystectomy, left ovarian cyst, amputation right 5th toe and 3rd toe, cataract surgery bilateral eyes. SOCIAL HISTORY: Positive for depression. No history of drug abuse or alcohol abuse. The patient is a former smoker. MEDICATIONS: Prior to admission included aspirin, insulin, Mevacor, Ultram, potassium, vitamin D, Norvasc. ALLERGIES: Include ZOCOR, LYRICA, PENICILLIN, TIDE LAUNDRY DETERGENT. PHYSICAL EXAMINATION: Patient is currently comfortable, awake, she is alert and oriented x3, not in any acute distress. Blood pressure is 147/67 last night, this morning 156/76, heart rate 78 per minute. She is afebrile. Examination of the heart S1, S2. Examination of the lungs bilateral breath sounds are heard. Abdomen is soft, morbidly obese. Examination of the lower extremities shows both feet to be currently wrapped. The patient has edema 2+ bilaterally. LABS: Sodium 141, potassium 4.4, chloride 112, CO2 is 21, BUN 25, serum creatinine 1.9 down from 8.1, phosphorus 4.7, hemoglobin 8.0 g/dL. ASSESSMENT: Acute kidney injury, possibly acute tubular necrosis. Patient is voiding. We cannot actually measure her urine output. I will discontinue the Motrin. We may continue the Cozaar at this time as blood pressure is elevated. Check a urinalysis. We will obtain an ultrasound of the . MMOHL / IJN: [id number] /
--- NOTE | 2017-09-12 17:07 | CONS ---
CONSULTATION ADDENDUM: This is continuation of the dictation. IMPRESSION AND PLAN: 1. I will hold off on the ultrasound of the abdomen as it was done in April of this year. We will repeat labs in a.m. 2. Chronic kidney disease stage 3. Baseline creatinine about 1.7-1.8 mg/dL. Previously the patient has had proteinuria, etiology is slightly diabetic nephropathy. Continue with the Cozaar for now. 3. Hypertension. Blood pressure is on the high side. DC the NSAIDs. Continue with Cozaar and calcium channel blockers. We can add beta-blockers in the form of Coreg if blood pressure remains elevated. 4. Type 2 diabetes, maintained on Glucotrol and insulin. 5. Wounds on bilateral feet with wound cultures positive for MRSA being followed by ID maintained on vancomycin and Rocephin. The patient can proceed with the PICC line placement. However, this should be placed on her non dominant arm. She does have CKD and will eventually need an arm access down the road. 6. Volume overload. I will discontinue the IV fluids. PLAN: DC Motrin. DC IV fluids. Check urinalysis. Repeat labs in a.m. Okay to proceed with PICC line. However, should be placed in her dominant as patient will need her nondominant arm for an access for dialysis down the road. We can add beta blockers if blood pressure remains elevated. She will also benefit from diuresis depending on her renal function in a.m. We need to closely monitor the vancomycin levels and avoid vancomycin toxicity. Thank you for this consultation. We will continue to follow the patient with you during her hospitalization. MMODL / IJN: [id number] /
[2017-09-12 17:11] LABS: Glucose,Whole Blood 97 mg/dL (75-99)
--- NOTE | 2017-09-12 18:55 | P.PN ---
Subjective Progress Note Date: 09/12/17 Principal diagnosis: Bilateral feet ulcers Doing better, no complaints. Objective - Vital Signs Vital signs: Vital Signs Temp 97.3 F L 09/12/17 14:14 Pulse 90 09/12/17 14:14 Resp 18 09/12/17 16:00 BP 163/84 09/12/17 14:14 Pulse Ox 94 L 09/12/17 14:14 Intake & Output 09/11/17 09/12/17 09/12/17 18:59 06:59 18:59 Intake Total 840 960 Balance 840 960 Intake: Intake, IV Titration 840 Amount Sodium Chloride 0.9% 1, 840 000 ml @ 120 mls/hr IV . Q8H20M [facility] Rx#:[id number] Oral 960 Other: Voiding Method Bedside Commode Bedside Commode Bedside Commode # Voids 1 2 1 # Bowel Movements 1 1 1 - Exam Constitutional: No acute distress, conversant, pleasant Eyes:Anicteric sclerae, moist conjunctiva, no lid-lag, PERRLA, ENMT: Oropharynx clear, no erythema, exudates Neck: Supple, FROM, no masses, or JVD, No carotid bruits, No thyromegaly Lungs: Clear to auscultation, Clear to percussion, Normal respiratory effort, no accessory muscle use Cardiovascular: Heart regular in rate and rhythm, No murmurs, gallops, or rubs, No peripheral edema Abdominal: Soft, Nontender, no guarding, rebound or rigidity, Normoactive bowel sounds, No hepatomegaly, No splenomegaly, No palpable mass Skin: Normal temperature, tone, texture, turgor, no induration, No subcutaneous nodules, No rash, lesions, No ulcers Extremities: Bilateral heel ulcers 5X5 cm each with yellow purulent base and clear, serous discharge. No digital cyanosis, No clubbing, Pedal pulses intact and symmetrical, Radial pulses intact and symmetrical, No calf tenderness Psychiatric: Alert and oriented to person, place and time, appropriate affect, intact judgement Neuro: Muscles Strength 5/5 in all 4 extremities, Sensation to light touch grossly present throughout, Cranial nerves II-XII grossly intact, no focal sensory deficits - Labs CBC & Chem 7: 09/11/17 12:36 09/11/17 12:36 Labs: Abnormal Lab Results - Last 24 Hours (Table) 09/11/17 09/12/17 Range/Units 20:20 06:55 POC Glucose (mg/dL) 117 H 104 H (75-99) mg/dL Microbiology - Last 24 Hours (Table) 09/09/17 15:47 Blood Culture - Preliminary Blood No Growth after 72 hours Assessment and Plan Plan: 1-Bilateral heels pressure ulcers infection: Continue ceftriaxone and Vanco Bone scan---left heel osteomyelitis ID following, will d/c to NH with IV abx vanco for 4-[address] PICC line--today after nephrology clearance due to chronic renal failure. 2-Diabetes type 2 Continue home insulin regimen Blood sugars controlled Blood sugar checks per [facility]SI protocol A1c checked early this month, 5.7 3-Hyperlipidemia, Hypertension, Osteoarthritis (OA): All stable Continue home meds. 4-Chronic renal failure stage 3 Consult nephrology for clearance for the picc line. 5-DVT prophylaxis: Heparin s.q D/W care management Anticipated disposition: rehab.
[2017-09-12 20:09] LABS: Glucose,Whole Blood 106 mg/dL (75-99)
[2017-09-12 21:42] VITALS: TEMP 97.8
[2017-09-13] MEDS: CLOTRIMAZOLE TROCHE 10 MG TROCHE MUCOUS MEM SCH ×3 (00:17→11:51)
[2017-09-13] MEDS: HEPARIN SODIUM,PORCINE 5,000 UNIT/ML 1 ML VIAL SQ SCH ×2 (00:18→08:57)
[2017-09-13 05:53] VITALS: BP 147/71; PULSE 79
[2017-09-13 07:16] LABS: Glucose,Whole Blood 80 mg/dL (75-99)
[2017-09-13 07:23] LABS: Calcium 7.9 mg/dL (8.4-10.2); Potassium 4.5 mmol/L (3.5-5.1)
[2017-09-13] MEDS: glipiZIDE 5 MG TAB PO SCH (08:57)
[2017-09-13] MEDS: INSULIN ASPART 100 UNIT/ML 1 ML 10 ML VIAL SQ SCH ×2 (08:58→11:54)
[2017-09-13] MEDS: LOSARTAN 50 MG TAB PO SCH (08:59)
[2017-09-13] MEDS: ASPIRIN 81 MG PO SCH (08:59)
[2017-09-13] MEDS: amLODIPine 10 MG TAB PO SCH (08:59)
[2017-09-13] MEDS: INSULIN DETEMIR 100 UNIT/ML 10 ML VIAL SQ SCH (09:00)
[2017-09-13] MEDS: AMMONIUM LACTATE 12% CREAM 140 GM TUBE TOPICAL SCH (09:01)
[2017-09-13] MEDS: PANTOPRAZOLE 40 MG TABLET PO SCH (09:01)
[2017-09-13] MEDS: cefTRIAXone IN SWFI 2,000 MG/20 ML SYRINGE IVP SCH (09:05)
[2017-09-13] MEDS: LOVASTATIN 40MG PO SCH (09:09)
[2017-09-13 11:49] LABS: Glucose,Whole Blood 79 mg/dL (75-99)
[2017-09-13] MEDS ORDERED: FUROSEMIDE 40 MG TAB PO SCH (13:15)
--- NOTE | 2017-09-13 14:19 | P.DS ---
Providers Date of admission: 09/09/17 14:43 Expected date of discharge: 09/13/17 Attending physician: Michael Patel MD Consults: 09/09/17 14:48 Consult Physician Stat Consulting Provider: Cheng Bah Consult Reason/Comments: diabetic wound care Do you want consulting provider notified?: Yes 09/11/17 14:24 Consult Physician Routine Consulting Provider: Cleopatra Hahn Consult Reason/Comments: Pt needs to be cleared for PICC line, GFR<30 Do you want consulting provider notified?: Yes Primary care physician: Noelle Raza MD Hospital Course: 66-year-old female with hx of obesity and diabetes mellitus type 2 presented to the ER from the [facility] with worsening wounds over both heels. She had been the patient of wound [facility] for the last several years. She underwent treatment with multiple courses of antibiotics, including therapy for her MRSA, hyperbaric oxygen therapy, and off loading cast placement but she continues to have recurrence in her wound infections. Most recently she was doing well until she injured her foot in the shower, the ulceration has reopened since then. She has neuropathy in both feet and does not have great sensation in them. She denied fevers, chills, or rigors or sweats. No chest pain or sob. No abdominal pain, nausea or vomiting. No diarrhea. Prior data was reviewed and shows that her hemoglobin A1c had been around 11 and last check was 5.7. Patient was admitted for IV antibiotics treatment, she was treated with ceftriaxone and vancomycin. She was seen by ID Dr. Bah who concurred with the management. Throughout the hospitalization she did not spike any fevers and did not have any leukocytosis. She had a bone scan that revealed possible osteomyelitis involving the left calcaneus process. Dr. Bah recommended IV antibiotics treatment for 4-6 weeks. Patient had a PICC line placed after cleared by nephrology. [facility] as well as IV antibiotics treatment. Upon discharge she was prescribed some tramadol for pain. Patient signed the started talking form. 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 Patient Condition at Discharge: Stable Plan - Discharge Summary Discharge Rx Participant: No New Discharge Prescriptions: New Acetaminophen Tab [Tylenol] 650 mg PO Q6HR PRN tab PRN Reason: Mild Pain Or Fever > 100.5 Ammonium Lactate Cream [Lac-Hydrin 12% Cream] 1 applic TOPICAL BID 50 Days # 3 cream Clotrimazole Mariah [Mycelex Mariah] 10 mg MUCOUS MEM 5XD #60 mariah Vancomycin HCl in 5 % Dextrose [Vancomycin 1 Gram/250 ml-D5w] 2 gm IV DAILY 35 Days #30 plast..bag Continue Aspirin [Aspirin EC] 81 mg PO DAILY Insulin Aspart [NovoLOG Flexpen] See Protocol SQ AC-TID Lovastatin [Mevacor] 40 mg PO HS Insulin Glargine,Hum.rec.anlog [Basaglar Kwikpen U-100] 44 unit SQ DAILY Ergocalciferol (Vitamin D2) [Vitamin D2] 50,000 unit PO TH traMADol HCl [Ultram] 50 mg PO Q6H PRN #45 tab PRN Reason: Pain amLODIPine [Norvasc] 10 mg PO DAILY Losartan Potassium 100 mg PO DAILY Discharge Medication List Aspirin [Aspirin EC] 81 mg PO DAILY 02/02/14 [History] Insulin Aspart [NovoLOG Flexpen] See Protocol SQ AC-TID 02/02/14 [History] Lovastatin [Mevacor] 40 mg PO HS 02/02/14 [History] Insulin Glargine,Hum.rec.anlog [Basaglar Kwikpen U-100] 44 unit SQ DAILY [History] Ergocalciferol (Vitamin D2) [Vitamin D2] 50,000 unit PO TH 04/01/17 [History] traMADol HCl [Ultram] 50 mg PO Q6H PRN #45 tab 06/24/17 [Rx] Losartan Potassium 100 mg PO DAILY 09/09/17 [History] amLODIPine [Norvasc] 10 mg PO DAILY 09/09/17 [History] Acetaminophen Tab [Tylenol] 650 mg PO Q6HR PRN tab 09/13/17 [Rx] Ammonium Lactate Cream [Lac-Hydrin 12% Cream] 1 applic TOPICAL BID 50 Days #3 cream 09/13/17 [Rx] Clotrimazole Mariah [Mycelex Mariah] 10 mg MUCOUS MEM 5XD #60 mariah 09/13/17 [ Rx] Vancomycin HCl in 5 % Dextrose [Vancomycin 1 Gram/250 ml-D5w] 2 gm IV DAILY 35 Days #30 plast..bag 06/29/18 [Rx] Follow up Appointment(s)/Referral(s): Noelle Raza MD [Primary Care Provider] - 1-2 days (Office is closed please call on saturday to schedule an appointment for 1 to 2 days.)
--- NOTE | 2017-09-13 15:09 | PN ---
PROGRESS NOTE Patient is seen for followup for acute kidney injury. Patient had a PICC line placed yesterday on her right arm. She is currently awake, comfortable. She denies any significant complaints. Patient is maintained on vancomycin. She is also on angiotensin receptor blockers. Currently, she is not on any IV fluids. Renal function is improved with creatinine down to 1.7 from about 1.9 day before yesterday. PHYSICAL EXAMINATION: Blood pressure is 147/71, heart rate 79 per minute. Patient is afebrile. Examination of the heart, S1, S2. Examination of the lungs, bilateral breath sounds are heard. Abdomen is soft, nontender. Examination of the lower extremities shows bilateral feet to be wrapped. Significant edema is noted bilaterally. LABS: Show sodium 141, potassium 4.5, chloride 113, CO2 is 20, BUN 28, serum creatinine 1.78. ASSESSMENT: 1. Chronic kidney disease, NKF stage IIIB with baseline creatinine about 1.7 mg/dL. Etiology is likely diabetic nephropathy. Patient is maintained on angiotensin receptor blockers. 2. Acute kidney injury secondary to underlying infection, currently slightly improved. 3. Chronic lower extremity wounds, started on vancomycin, status post PICC line which was placed in her dominant arm as we would like to save the nondominant arm for access for renal replacement therapy down the road. 4. Hypertension. Continue current medications. 5. Morbid obesity. 6. Mild volume overload. I will add loop diuretics. Also recommend to consider changing calcium channel blockers to beta blockers like Coreg for blood pressure control as patient does already have significant edema. This can be done as outpatient. MMODL / IJN: [id number] /
[2017-09-13] MEDS ORDERED: VANCOMYCIN 2,000 MG in SODIUM CHLORIDE 0.9% 500 ML IVPB SCH (16:00)
[2017-09-16] MEDS ORDERED: ERGOCALCIFEROL 50,000 UNIT CAP PO SCH (09:00)
[2017-09-17] MEDS ORDERED: IBUPROFEN 600 MG TAB PO ONE (16:55)
== END 2017-09-13 14:46 | DRG 638 ==
LOC: EC 11:08 → 4MS4W 14:43 → 5MS5E 15:21
PROVIDERS: ADMIT Internal Medicine; ATTEND Internal Medicine
PROC: 02HV33Z Insertion of Infusion Device into Superior Vena Cava, Percutaneous Approach (ICD-10-PCS; principal; 2017-09-12 14:30)
DX: E11.69 Type 2 diabetes mellitus with other specified complication (principal); M86.9 Osteomyelitis, unspecified; Z68.41 Body mass index [BMI] 40.0-44.9, adult; E11.621 Type 2 diabetes mellitus with foot ulcer; E11.40 Type 2 diabetes mellitus with diabetic neuropathy, unspecified; E78.5 Hyperlipidemia, unspecified; E11.21 Type 2 diabetes mellitus with diabetic nephropathy; R62.7 Adult failure to thrive; E11.22 Type 2 diabetes mellitus with diabetic chronic kidney disease; E66.01 Morbid (severe) obesity due to excess calories; E11.65 Type 2 diabetes mellitus with hyperglycemia; E87.70 Fluid overload, unspecified; R32 Unspecified urinary incontinence; I12.9 Hypertensive chronic kidney disease with stage 1 through stage 4 chronic kidney disease, or unspecified chronic kidney disease; N18.3 Chronic kidney disease, stage 3 (moderate); F32.9 Major depressive disorder, single episode, unspecified; L89.629 Pressure ulcer of left heel, unspecified stage; L89.619 Pressure ulcer of right heel, unspecified stage; M19.90 Unspecified osteoarthritis, unspecified site; N17.9 Acute kidney failure, unspecified; I87.2 Venous insufficiency (chronic) (peripheral); Z79.4 Long term (current) use of insulin; Z79.82 Long term (current) use of aspirin; Z82.49 Family history of ischemic heart disease and other diseases of the circulatory system; Z86.14 Personal history of Methicillin resistant Staphylococcus aureus infection; Z90.49 Acquired absence of other specified parts of digestive tract; Z83.3 Family history of diabetes mellitus; Z87.891 Personal history of nicotine dependence
CPT/HCPCS: 36415; 36569; 76937; 77001; 78315; 80048; 80053; 83036; 83605; 83735; 84100; 85025; 85027; 87040; 87070; 87077; 87186; 87205; 96365; 96375; 99284

== ENCOUNTER 2017-10-25 13:01 | Inpatient (IN) | payer MEDICARE, OTHER ==
[2017-10-25] MEDS ORDERED: NITROGLYCERIN OINT 1 INCH/GM PACKET TOPICAL STA ×2 (13:11→14:56)
[2017-10-25] MEDS ORDERED: ASPIRIN 81 MG PO STA (13:11)
--- NOTE | 2017-10-25 13:15 | ED ---
General Adult HPI - General Stated complaint: Shortness of Breath Time Seen by Provider: 10/25/17 13:05 Source: RN notes reviewed - History of Present Illness Initial comments: This is a 66-year-old female who presents to the emergency room complaining of chest pressure and difficulty breathing. Patient states it started today after she woke up from a nap. Patient received a DuoNeb in route to the hospital and states that it didn't really help. Patient states she still has chest pressure. Patient denies any radiation of the pressure. Patient denies any diaphoresis. Patient denies any nausea. Patient denies any history of COPD. Patient states she's in [facility] because of ulcers on her foot from her diabetes. Patient denies any abdominal pain patient denies nausea vomiting diarrhea. Patient denies any diaphoretic episodes. Patient denies headache patient denies numbness weakness. Patient denies lightheadedness dizziness or near syncopal episode. - Related Data Home Medications Medication Instructions Recorded Confirmed Acetaminophen [Tylenol] 325 mg PO Q6HR PRN 09/23/17 10/25/17 Aspirin EC [Ecotrin Low Dose] 81 mg PO DAILY@1700 09/23/17 10/25/17 Bisacodyl [Dulcolax] 10 mg RECTAL DAILY PRN 09/23/17 10/25/17 Ergocalciferol [Vitamin D2] 50,000 unit PO TH 09/23/17 10/25/17 Insulin Aspart [NovoLOG] See Protocol SQ AC-TID@07,,1730 09/23/17 10/25/17 Insulin Glargine,Hum.rec.anlog 44 unit SQ DAILY@0700 09/23/17 10/25/17 [Basaglar Kwikpen U-100] Lovastatin [Mevacor] 40 mg PO HS 09/23/17 10/25/17 Magnesium Hydroxide [Milk of 30 ml PO DIRECTED PRN 09/23/17 10/25/17 Magnesia Concentrate] Mineral Oil [Fleet Mineral Oil] 133 ml RECTAL ONCE PRN 09/23/17 10/25/17 Omeprazole [PriLOSEC] 20 mg PO DAILY 09/23/17 10/25/17 amLODIPine [Norvasc] 10 mg PO DAILY 09/23/17 10/25/17 traMADol HCl [Ultram] 50 mg PO Q6HR PRN 09/23/17 10/25/17 Furosemide [Lasix] 40 mg PO BID@06,14 10/15/17 10/25/17 Amino Acids/Protein Hydrolys 30 ml PO DAILY@1100 10/25/17 10/25/17 [Pro-Stat Supplement] Losartan [Cozaar] 25 mg PO DAILY 10/25/17 10/25/17 Metoprolol Tartrate [Lopressor] 50 mg PO BID 10/25/17 10/25/17 Nystatin 100,000 Unit/gm Powd 1 applic TOPICAL BID 10/25/17 10/25/17 [Mycostatin Powder] Spironolactone [Aldactone] 25 mg PO DAILY 10/25/17 10/25/17 hydrALAZINE HCL [Apresoline] 25 mg PO BID@14,21 10/25/17 10/25/17 hydrALAZINE HCL [Apresoline] 75 mg PO DAILY@0800 10/25/17 10/25/17 Allergies Allergy/AdvReac Type Severity Reaction Status Date / Time Penicillins Allergy Severe Rash/Hives Verified 10/25/17 14:32 simvastatin [From Zocor] AdvReac Severe Unknown Verified 10/25/17 14:32 pregabalin [From Lyrica] AdvReac Unknown Verified 10/25/17 14:32 tide laundry detergent Allergy Itching Uncoded 10/21/17 10:03 Review of Systems ROS Statement: Those systems with pertinent positive or pertinent negative responses have been documented in the HPI. ROS Other: All systems not noted in ROS Statement are negative. Past Medical History Past Medical History: Diabetes Mellitus, Hyperlipidemia, Hypertension, Osteoarthritis (OA), Renal Disease, Skin Disorder Additional Past Medical History / Comment(s): Cellutitus right leg, ringing in bilateral ears. 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 pt lives alone but has a pet ct harshad. has in home care(aide) that helps with cooking, cleaning, laundry and shopping. pt uses a w/c and currently needs assist Smoking Status: Former smoker Past Alcohol Use History: None Reported Additional Past Alcohol Use History / Comment(s): started smoking age 21(1971) and quit 1991, smoked 1 ppd Past Drug Use History: None Reported - Past Family History Father Additional Family Medical History / Comment(s): ALCOHOLIC Mother Family Medical History: Cancer, CVA/TIA, Diabetes Mellitus, Myocardial Infarction (PA) Additional Family Medical History / Comment(s): COLON Brother(s) Additional Family Medical History / Comment(s): DRUG DEPENDENCY General Exam - General Exam Comments Initial Comments: GENERAL: Patient is well-developed and well-nourished. Patient is nontoxic and well- hydrated and is in mild distress. ENT: Neck is soft and supple. No significant lymphadenopathy is noted. Oropharynx is clear. Moist mucous membranes. Neck has full range of motion without eliciting any pain. EYES: The sclera were anicteric and conjunctiva were pink and moist. Extraocular movements were intact and pupils were equal round and reactive to light. Eyelids were unremarkable. PULMONARY: Diminished breath sounds in both bases. Patient was oxygenating 94% on 2 L CARDIOVASCULAR: There is a regular rate and rhythm without any murmurs gallops or rubs. ABDOMEN: Soft and nontender with normal bowel sounds. SKIN: Skin is clear with no lesions or rashes and otherwise unremarkable. NEUROLOGIC: Patient is alert and oriented x3. Cranial nerves II through XII are grossly intact. Motor and sensory are also intact. Normal speech, volume and content. Symmetrical smile. MUSCULOSKELETAL: Normal extremities with adequate strength and full range of motion. Patient has bilateral edema 2+ No calf tenderness. LYMPHATICS: No significant lymphadenopathy is noted PSYCHIATRIC: Normal psychiatric evaluation. Course Vital Signs 10/25/17 10/25/17 13:08 13:27 Temperature 97.0 F L Pulse Rate 61 Respiratory 18 20 Rate Blood Pressure 146/68 O2 Sat by Pulse 92 L Oximetry Medical Decision Making - Medical Decision Making EKG shows normal sinus rhythm at 60 bpm ME interval 170 QRS is 92 QT interval 436 QTC is 436. Patient's EKG shows no ST segment elevation or depression or T wave abnormalities are noted. Chest x-ray shows pulmonary edema. I started the patient Lasix and Nitropaste. I am unable to get a CAT scan to rule out PE even though the d-dimer was elevated. I will start the patient on blood thinners. I started the patient on heparin at this time. I spoke with some physicians admitted the patient wrote admitting orders. I can to giving Lasix I repeated the CBC and I ordered a VQ scan - Lab Data Result diagrams: 10/25/17 13:20 10/25/17 13:20 Lab Results 10/25/17 10/25/17 10/25/17 Range/Units 13:20 13:20 13:20 WBC 8.0 (3.8-10.6) k/uL RBC 3.03 L (3.80-5.40) m/uL Hgb 7.5 L (11.4-16.0) gm/dL Hct 24.8 L (34.0-46.0) % MCV 81.8 (80.0-100.0) fL MCH 24.7 L (25.0-35.0) pg MCHC 30.2 L (31.0-37.0) g/dL RDW 16.1 H (11.5-15.5) % Plt Count 166 (150-450) k/uL Neutrophils % 76 % Lymphocytes % 10 % Monocytes % 5 % Eosinophils % 7 % Basophils % 0 % Neutrophils # 6.1 (1.3-7.7) k/uL Lymphocytes # 0.8 L (1.0-4.8) k/uL Monocytes # 0.4 (0-1.0) k/uL Eosinophils # 0.6 (0-0.7) k/uL Basophils # 0.0 (0-0.2) k/uL Hypochromasia Moderate Anisocytosis Slight PT (9.0-12.0) sec INR (<1.2) APTT (22.0-30.0) sec D-Dimer (<0.60) mg/L FEU Sodium 145 (137-145) mmol/L Potassium 5.0 (3.5-5.1) mmol/L Chloride 118 H (98-107) mmol/L Carbon Dioxide 19 L (22-30) mmol/L Anion Gap 8 mmol/L BUN 67 H (7-17) mg/dL Creatinine 2.89 H (0.52-1.04) mg/dL Est GFR (CKD-EPI)AfAm 19 (>60 ml/min/1.73 sqM) Est GFR (CKD-EPI)NonAf 17 (>60 ml/min/1.73 sqM) Glucose 99 (74-99) mg/dL Calcium 8.5 (8.4-10.2) mg/dL Magnesium 2.0 (1.6-2.3) mg/dL Total Bilirubin 0.2 (0.2-1.3) mg/dL AST 17 (14-36) U/L ALT 29 (9-52) U/L Alkaline Phosphatase 57 (38-126) U/L Total Creatine Kinase 44 (30-135) U/L CK-MB (CK-2) 1.1 (0.0-2.4) ng/mL CK-MB (CK-2) Rel Index 2.5 Troponin I <0.012 (0.000-0.034) ng/mL NT-Pro-B Natriuret Pep pg/mL Total Protein 5.9 L (6.3-8.2) g/dL Albumin 2.8 L (3.5-5.0) g/dL 10/25/17 10/25/17 Range/Units 13:20 13:20 WBC (3.8-10.6) k/uL RBC (3.80-5.40) m/uL Hgb (11.4-16.0) gm/dL Hct (34.0-46.0) % MCV (80.0-100.0) fL MCH (25.0-35.0) pg MCHC (31.0-37.0) g/dL RDW (11.5-15.5) % Plt Count (150-450) k/uL Neutrophils % % Lymphocytes % % Monocytes % % Eosinophils % % Basophils % % Neutrophils # (1.3-7.7) k/uL Lymphocytes # (1.0-4.8) k/uL Monocytes # (0-1.0) k/uL Eosinophils # (0-0.7) k/uL Basophils # (0-0.2) k/uL Hypochromasia Anisocytosis PT 10.0 (9.0-12.0) sec INR 1.0 (<1.2) APTT 21.0 L (22.0-30.0) sec D-Dimer 1.80 H (<0.60) mg/L FEU Sodium (137-145) mmol/L Potassium (3.5-5.1) mmol/L Chloride (98-107) mmol/L Carbon Dioxide (22-30) mmol/L Anion Gap mmol/L BUN (7-17) mg/dL Creatinine (0.52-1.04) mg/dL Est GFR (CKD-EPI)AfAm (>60 ml/min/1.73 sqM) Est GFR (CKD-EPI)NonAf (>60 ml/min/1.73 sqM) Glucose (74-99) mg/dL Calcium (8.4-10.2) mg/dL Magnesium (1.6-2.3) mg/dL Total Bilirubin (0.2-1.3) mg/dL AST (14-36) U/L ALT (9-52) U/L Alkaline Phosphatase (38-126) U/L Total Creatine Kinase (30-135) U/L CK-MB (CK-2) (0.0-2.4) ng/mL CK-MB (CK-2) Rel Index Troponin I (0.000-0.034) ng/mL NT-Pro-B Natriuret Pep 3960 pg/mL Total Protein (6.3-8.2) g/dL Albumin (3.5-5.0) g/dL Critical Care Time Critical Care Time: Yes Total Critical Care Time: 35 Disposition Clinical Impression: Chest pain, Elevated d-dimer, Anemia, Renal failure, Pulmonary edema Disposition: ADMITTED IP TO THIS HOSP Referrals: Noelle Raza MD [Primary Care Provider] - 1-2 days Time of Disposition: 15:00
[2017-10-25 13:38] LABS: Anisocytosis Slight; Basophils % (A) 0 %; Eosinophils # (A) 0.6 k/uL (0-0.7); Eosinophils % (A) 7 %; HCT 24.8 % (34.0-46.0); HGB 7.5 gm/dL (11.4-16.0); Hypochromasia Moderate; Lymphocytes # (A) 0.8 k/uL (1.0-4.8); Lymphocytes % (A) 10 %; MCH 24.7 pg (25.0-35.0); MCHC 30.2 g/dL (31.0-37.0); MCV 81.8 fL (80.0-100.0); Mean Platelet Volume 8.1; Monocytes # (A) 0.4 k/uL (0-1.0); Monocytes % (A) 5 %; Neutrophils # (A) 6.1 k/uL (1.3-7.7); Neutrophils % (A) 76 %; Platelet Count 166 k/uL (150-450); RBC 3.03 m/uL (3.80-5.40); RDW 16.1 % (11.5-15.5)
[2017-10-25 14:00] LABS: Creatine Kinase 44 U/L (30-135)
[2017-10-25 14:03] LABS: Albumin 2.8 g/dL (3.5-5.0); Calcium 8.5 mg/dL (8.4-10.2); Total Bilirubin 0.2 mg/dL (0.2-1.3); Total Protein 5.9 g/dL (6.3-8.2)
[2017-10-25 14:11] LABS: Creatine Kinase MB 1.1 ng/mL (0.0-2.4); Troponin I <0.012 ng/mL (0.000-0.034)
[2017-10-25 14:23] LABS: D-Dimer 1.8 mg/L FEU (<0.60)
--- NOTE | 2017-10-25 14:35 | XR ---
EXAMINATION TYPE: XR chest 2V DATE OF EXAM: 10/25/2017 COMPARISON: None HISTORY: 66-year-old female with chest pain TECHNIQUE: AP and lateral views FINDINGS: Rightward patient rotation.. Heart mild to moderately enlarged. Diffuse interstitial vascular promine nce. Right PICC tip at the cavoatrial junction. More confluent opacity at the right upper lobe. There are small right and trace left effusions with bibasilar opacities. IMPRESSION: 1. Correlate for CHF with interstitial pulmonary edema. More confluent opacity right upper lobe could represent alveolar edema or infiltrate. 2. Small right and trace left pleural effusions with adjacent atelectasis and/or consolidation.
[2017-10-25] MEDS ORDERED: FUROSEMIDE 10 MG/ML 10 ML VIAL IV STA (14:56)
[2017-10-25] MEDS ORDERED: HEPARIN SODIUM,PORCINE 10,000 UNIT/ML 1 ML VIAL IV ONE (14:58)
[2017-10-25] MEDS ORDERED: BISACODYL 10 MG SUPP RECTAL PRN (16:55)
[2017-10-25] MEDS ORDERED: MAGNESIUM HYDROXIDE 2,400 MG/10 ML CUP PO PRN (16:55)
[2017-10-25] MEDS ORDERED: MINERAL OIL 133 ML ENEMA RECTAL PRN (16:55)
[2017-10-25] MEDS ORDERED: ACETAMINOPHEN TAB 325 MG TAB PO PRN (16:55)
--- NOTE | 2017-10-25 17:20 | P.HPIM ---
History of Present Illness H&P Date: 10/25/17 Chief Complaint: Chest pain Patient is a 66-year-old female with history of diabetes type 2, chronic lower extremity wounds, congestive heart failure who was recently hospitalized the end of August and is currently undergoing rehab in a subacute facility. Patient states she woke this morning was in her good state of health however later in the morning she developed substernal chest pain rated 5 out of 10. She states that she had no associated symptoms she was unclear about the duration of her pain. She notified the staff at the [facility] and patient was brought to the emergency room for evaluation. In the emergency room patient was noted to have an elevated BUN/creatinine ratio, chest x-ray notable for volume overload and elevated d-dimer which because of her renal function could not be assessed further assessed so heparin drip was started. The time of evaluation patient states her chest pain had resolved she feels she is at her baseline dyspnea currently is experiencing no pain. Patient to work on management. Review of Systems All systems: negative (Completely reviewed and negative other stated above) Past Medical History Past Medical History: Diabetes Mellitus, Hyperlipidemia, Hypertension, Osteoarthritis (OA), Renal Disease, Skin Disorder Additional Past Medical History / Comment(s): Cellutitus right leg, ringing in bilateral ears. 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,CATARACTS BILAT EYES Past Anesthesia/Blood Transfusion Reactions: No Reported Reaction Additional Past Anesthesia/Blood Transfusion Reaction / Comment(s): clausterphobia Smoking Status: Former smoker - Past Family History Father Additional Family Medical History / Comment(s): ALCOHOLIC Mother Family Medical History: Cancer, CVA/TIA, Diabetes Mellitus, Myocardial Infarction ([place]) Additional Family Medical History / Comment(s): COLON Brother(s) Additional Family Medical History / Comment(s): DRUG DEPENDENCY Medications and Allergies Home Medications Medication Instructions Recorded Confirmed Type Acetaminophen [Tylenol] 325 mg PO Q6HR PRN 09/23/17 10/25/17 History Aspirin EC [Ecotrin Low Dose] 81 mg PO DAILY@1700 09/23/17 10/25/17 History Bisacodyl [Dulcolax] 10 mg RECTAL DAILY PRN 09/23/17 10/25/17 History Ergocalciferol [Vitamin D2] 50,000 unit PO TH 09/23/17 10/25/17 History Insulin Aspart [NovoLOG] See Protocol SQ AC-TID@07,11,1730 09/23/17 10/25/17 History Insulin Glargine,Hum.rec.anlog 44 unit SQ DAILY@0700 09/23/17 10/25/17 History [Basaglar Kwikpen U-100] Lovastatin [Mevacor] 40 mg PO HS 09/23/17 10/25/17 History Magnesium Hydroxide [Milk of 30 ml PO DIRECTED PRN 09/23/17 10/25/17 History Magnesia Concentrate] Mineral Oil [Fleet Mineral Oil] 133 ml RECTAL ONCE PRN 09/23/17 10/25/17 History Omeprazole [PriLOSEC] 20 mg PO DAILY 09/23/17 10/25/17 History amLODIPine [Norvasc] 10 mg PO DAILY 09/23/17 10/25/17 History traMADol HCl [Ultram] 50 mg PO Q6HR PRN 09/23/17 10/25/17 History Furosemide [Lasix] 40 mg PO BID@06,14 10/15/17 10/25/17 History Amino Acids/Protein Hydrolys 30 ml PO DAILY@1100 10/25/17 10/25/17 History [Pro-Stat Supplement] Losartan [Cozaar] 25 mg PO DAILY 10/25/17 10/25/17 History Metoprolol Tartrate [Lopressor] 50 mg PO BID 10/25/17 10/25/17 History Nystatin 100,000 Unit/gm Powd 1 applic TOPICAL BID 10/25/17 10/25/17 History [Mycostatin Powder] Spironolactone [Aldactone] 25 mg PO DAILY 10/25/17 10/25/17 History hydrALAZINE HCL [Apresoline] 25 mg PO BID@14,21 10/25/17 10/25/17 History hydrALAZINE HCL [Apresoline] 75 mg PO DAILY@0800 10/25/17 10/25/17 History Allergies Allergy/AdvReac Type Severity Reaction Status Date / Time Penicillins Allergy Severe Rash/Hives Verified 10/25/17 14:32 simvastatin [From Zocor] AdvReac Severe Unknown Verified 10/25/17 14:32 pregabalin [From Lyrica] AdvReac Unknown Verified 10/25/17 14:32 tide laundry detergent Allergy Itching Uncoded 10/21/17 10:03 Physical Exam Vitals: Vital Signs Temp Pulse Resp BP Pulse Ox 10/25/17 13:27 20 10/25/17 13:08 97.0 F L 61 18 146/68 92 L Intake and Output 10/25/17 10/25/17 10/25/17 06:59 14:59 22:59 Other: Weight 172.365 kg - Constitutional General appearance: morbidly obese - EENT Eyes: PERRLA ENT: NA/AT - Neck Neck: normal ROM - Respiratory Respiratory: bilateral: diminished (Crackles at the bases) - Cardiovascular Rhythm: regular - Gastrointestinal General gastrointestinal: normal bowel sounds - Integumentary Chronic stasis changes cast on left foot and right lower extremity wrapped - Neurologic Neurologic: CNII-XII intact - Musculoskeletal Musculoskeletal: strength equal bilaterally - Psychiatric Psychiatric: A&O x's 3, appropriate affect, intact judgment & insight Results CBC & Chem 7: 10/25/17 13:20 10/25/17 13:20 Labs: Abnormal Lab Results - Last 24 Hours (Table) 10/25/17 10/25/17 10/25/17 Range/Units 13:20 13:20 13:20 RBC 3.03 L (3.80-5.40) m/uL Hgb 7.5 L (11.4-16.0) gm/dL Hct 24.8 L (34.0-46.0) % MCH 24.7 L (25.0-35.0) pg MCHC 30.2 L (31.0-37.0) g/dL RDW 16.1 H (11.5-15.5) % Lymphocytes # 0.8 L (1.0-4.8) k/uL APTT 21.0 L (22.0-30.0) sec D-Dimer 1.80 H (<0.60) mg/L FEU Chloride 118 H (98-107) mmol/L Carbon Dioxide 19 L (22-30) mmol/L BUN 67 H (7-17) mg/dL Creatinine 2.89 H (0.52-1.04) mg/dL Total Protein 5.9 L (6.3-8.2) g/dL Albumin 2.8 L (3.5-5.0) g/dL Chest x-ray: report reviewed ( by me volume overload) Assessment and Plan (1) Chest pain Narrative/Plan: Secondary to acute on chronic congestive heart failure, d-dimer positive awaiting VQ scan on heparin drip will continue drip while awaiting results of VQ scan since patient is high risk since she is in an extended care facility with limited mobility Current Visit: Yes Status: Acute Code(s): R07.9 - CHEST PAIN, UNSPECIFIED SNOMED Code(s): 05260016 (2) Pulmonary edema Narrative/Plan: Secondary to acute on chronic congestive heart failure is no recent echo will repeat Will hold oral Lasix and treated with Lasix IV every 8 hours we need to monitor renal function cessation would evidence of worsening renal function Current Visit: Yes Status: Acute Code(s): J81.1 - CHRONIC PULMONARY EDEMA SNOMED Code(s): 21885856 (3) Renal failure Narrative/Plan: We'll need to monitor if continues to worsen will consider renal consult Current Visit: Yes Status: Acute Code(s): N19 - UNSPECIFIED KIDNEY FAILURE SNOMED Code(s): 22820045 (4) Diabetes mellitus type 2, uncontrolled, with complications Narrative/Plan: Continue outpatient regiment and sliding scale coverage Current Visit: No Status: Acute Code(s): E11.8 - TYPE 2 DIABETES MELLITUS WITH UNSPECIFIED COMPLICATIONS; E11.65 - TYPE 2 DIABETES MELLITUS WITH HYPERGLYCEMIA SNOMED Code(s): 125392228 (5) Diabetic ulcer of heel Narrative/Plan: Patient is followed by wound care and extended-care facility she gets throughout every week continue current care we'll consult wound for further recommendations Current Visit: No Status: Acute Code(s): E11.621 - TYPE 2 DIABETES MELLITUS WITH FOOT ULCER; L97.409 - NON-PRS CHRONIC ULCER OF UNSP HEEL AND MIDFOOT W UNSP SEVERT SNOMED Code(s): 42956995 Plan: Patient does not have a POA, she is a full code, further workup pending above limited mobility status post recent treatment for osteomyelitis DVT prophylaxis patient is on heparin IV
[2017-10-25] MEDS: NITROGLYCERIN OINT 1 INCH/GM PACKET TOPICAL SCH ×2 (18:19→19:58)
[2017-10-25 18:40] LABS: Anisocytosis Slight; Basophils % (A) 0 %; Eosinophils # (A) 0.7 k/uL (0-0.7); Eosinophils % (A) 9 %; HGB 7.3 gm/dL (11.4-16.0); Hypochromasia Marked; Lymphocytes # (A) 0.9 k/uL (1.0-4.8); Lymphocytes % (A) 12 %; MCHC 30.2 g/dL (31.0-37.0); MCV 82.7 fL (80.0-100.0); Mean Platelet Volume 8.1; Monocytes # (A) 0.4 k/uL (0-1.0); Monocytes % (A) 5 %; Neutrophils # (A) 5.6 k/uL (1.3-7.7); Neutrophils % (A) 73 %; Platelet Count 159 k/uL (150-450); RDW 16.2 % (11.5-15.5); WBC 7.6 k/uL (3.8-10.6)
[2017-10-25] MEDS: HEPARIN SOD,PORK IN 0.45% NACL 25,000 UNIT in 0.45% NACL 1 500ML.BAG IV SCH (19:00)
[2017-10-25] MEDS: FUROSEMIDE 10 MG/ML 4 ML VIAL IV SCH (19:57)
[2017-10-25] MEDS: hydrALAZINE HCL 25 MG TAB PO SCH (19:57)
[2017-10-25] MEDS: METOPROLOL TARTRATE 50 MG TAB PO SCH (19:57)
[2017-10-25] MEDS: ATORVASTATIN 10 MG TAB PO SCH (19:57)
[2017-10-25] MEDS: NYSTATIN 100,000 UNIT/GM POWD 15 GM TOPICAL SCH (19:58)
[2017-10-25 20:45] LABS: Glucose,Whole Blood 124 mg/dL (75-99)
[2017-10-26 01:08] LABS: Anisocytosis Slight; Basophils % (A) 0 %; Eosinophils # (A) 0.6 k/uL (0-0.7); Eosinophils % (A) 9 %; HCT 23.3 % (34.0-46.0); Hypochromasia Marked; Lymphocytes # (A) 0.8 k/uL (1.0-4.8); Lymphocytes % (A) 11 %; MCH 24.9 pg (25.0-35.0); MCV 83.2 fL (80.0-100.0); Mean Platelet Volume 8.7; Monocytes # (A) 0.4 k/uL (0-1.0); Monocytes % (A) 6 %; Neutrophils # (A) 5.2 k/uL (1.3-7.7); Neutrophils % (A) 73 %; Platelet Count 142 k/uL (150-450); RDW 16.1 % (11.5-15.5); WBC 7.2 k/uL (3.8-10.6)
[2017-10-26] MEDS: HEPARIN SOD,PORK IN 0.45% NACL 25,000 UNIT in 0.45% NACL 1 500ML.BAG IV SCH ×3 (03:11→21:52)
[2017-10-26 06:15] LABS: Glucose,Whole Blood 87 mg/dL (75-99)
[2017-10-26] MEDS: FUROSEMIDE 10 MG/ML 4 ML VIAL IV SCH ×3 (08:17→23:35)
[2017-10-26] MEDS: PANTOPRAZOLE 40 MG TABLET PO SCH (08:17)
[2017-10-26] MEDS: hydrALAZINE HCL 25 MG TAB PO SCH ×3 (08:18→20:48)
[2017-10-26] MEDS: amLODIPine 10 MG TAB PO SCH (08:18)
[2017-10-26] MEDS: LOSARTAN 25 MG TAB PO SCH (08:18)
[2017-10-26] MEDS: METOPROLOL TARTRATE 50 MG TAB PO SCH ×2 (08:19→20:42)
[2017-10-26] MEDS: SPIRONOLACTONE 25 MG TAB PO SCH (08:19)
[2017-10-26] MEDS: NITROGLYCERIN OINT 1 INCH/GM PACKET TOPICAL SCH ×4 (08:19→20:42)
[2017-10-26] MEDS: NYSTATIN 100,000 UNIT/GM POWD 15 GM TOPICAL SCH ×2 (08:20→20:42)
[2017-10-26] MEDS: INSULIN DETEMIR 100 UNIT/ML 10 ML VIAL SQ SCH (09:17)
--- NOTE | 2017-10-26 09:49 | P.CRDCN ---
History of Present Illness Consult date: 10/26/17 Requesting physician: Megan Patel Reason for Consult (text): chest pain, pulmonary edema Chief complaint: difficulty breathing, chest pressure History of present illness: This is a pleasant 66-year-old female with history of diabetes type 2, chronic lower extremity wounds, hypertension, hyperlipidemia, obesity and remote history of smoking. She was recently hospitalized the end of August and is currently residing in [facility] for wound care and rehab. She has been complaining of progressively worsening shortness of breath recently which was quite a bit worse yesterday. She also developed some chest pressure. She states that she had no associated symptoms she was unclear about the duration of her pressure. She notified the staff at the [facility] and patient was brought to the emergency room for evaluation. In the emergency room patient was noted to have an elevated BUN/creatinine ratio, chest x-ray notable for interstitial edema with small right and trace left pleural effusions. Her d-dimer was elevated. Due to her renal function and inability to lay flat no further work up was performed and she was initiated on a heparin drip. Her first troponin wsa <0.012. Hemoglobin was found to be low at 7.3 with repeat this morning at 7.0. Upon examination patient is resting in bed with HOB at 45 degrees. She is dyspneic with talking. She continues to complain of significant difficulty breathing and orthopnea. She denies PND and currently has no c/o chest pressure. Past Medical History Past Medical History: Diabetes Mellitus, Hyperlipidemia, Hypertension, Osteoarthritis (OA), Renal Disease, Skin Disorder Additional Past Medical History / Comment(s): Cellutitus right leg, ringing in bilateral ears. 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,CATARACTS BILAT EYES Past Anesthesia/Blood Transfusion Reactions: No Reported Reaction Additional Past Anesthesia/Blood Transfusion Reaction / Comment(s): clausterphobia Smoking Status: Former smoker - Past Family History Father Additional Family Medical History / Comment(s): ALCOHOLIC Mother Family Medical History: Cancer, CVA/TIA, Diabetes Mellitus, Myocardial Infarction ([place]) Additional Family Medical History / Comment(s): COLON Brother(s) Additional Family Medical History / Comment(s): DRUG DEPENDENCY Medications and Allergies Home Medications Medication Instructions Recorded Confirmed Type Acetaminophen [Tylenol] 325 mg PO Q6HR PRN 09/23/17 10/25/17 History Aspirin EC [Ecotrin Low Dose] 81 mg PO DAILY@1700 09/23/17 10/25/17 History Bisacodyl [Dulcolax] 10 mg RECTAL DAILY PRN 09/23/17 10/25/17 History Ergocalciferol [Vitamin D2] 50,000 unit PO TH 09/23/17 10/25/17 History Insulin Aspart [NovoLOG] See Protocol SQ AC-TID@07,11,1730 09/23/17 10/25/17 History Insulin Glargine,Hum.rec.anlog 44 unit SQ DAILY@0700 09/23/17 10/25/17 History [Basaglar Kwikpen U-100] Lovastatin [Mevacor] 40 mg PO HS 09/23/17 10/25/17 History Magnesium Hydroxide [Milk of 30 ml PO DIRECTED PRN 09/23/17 10/25/17 History Magnesia Concentrate] Mineral Oil [Fleet Mineral Oil] 133 ml RECTAL ONCE PRN 09/23/17 10/25/17 History Omeprazole [PriLOSEC] 20 mg PO DAILY 09/23/17 10/25/17 History amLODIPine [Norvasc] 10 mg PO DAILY 09/23/17 10/25/17 History traMADol HCl [Ultram] 50 mg PO Q6HR PRN 09/23/17 10/25/17 History Furosemide [Lasix] 40 mg PO BID@06,14 10/15/17 10/25/17 History Amino Acids/Protein Hydrolys 30 ml PO DAILY@1100 10/25/17 10/25/17 History [Pro-Stat Supplement] Losartan [Cozaar] 25 mg PO DAILY 10/25/17 10/25/17 History Metoprolol Tartrate [Lopressor] 50 mg PO BID 10/25/17 10/25/17 History Nystatin 100,000 Unit/gm Powd 1 applic TOPICAL BID 10/25/17 10/25/17 History [Mycostatin Powder] Spironolactone [Aldactone] 25 mg PO DAILY 10/25/17 10/25/17 History hydrALAZINE HCL [Apresoline] 25 mg PO BID@14,21 10/25/17 10/25/17 History hydrALAZINE HCL [Apresoline] 75 mg PO DAILY@0800 10/25/17 10/25/17 History Allergies Allergy/AdvReac Type Severity Reaction Status Date / Time Penicillins Allergy Severe Rash/Hives Verified 10/25/17 14:32 simvastatin [From Zocor] AdvReac Severe Unknown Verified 10/25/17 14:32 pregabalin [From Lyrica] AdvReac Unknown Verified 10/25/17 14:32 tide laundry detergent Allergy Itching Uncoded 10/21/17 10:03 Physical Exam Vitals: Vital Signs Temp Pulse Pulse Resp BP BP Pulse Ox 10/26/17 08:00 96.6 F L 60 16 120/58 94 L 10/26/17 04:00 70 16 122/67 97 10/26/17 00:00 97.4 F L 64 16 109/55 94 L 10/25/17 20:00 59 L 18 10/25/17 19:53 97 F L 59 L 18 129/59 94 L 10/25/17 18:02 96 F L 59 L 16 113/55 92 L 10/25/17 17:59 97.0 F L 59 L 20 130/60 96 10/25/17 17:53 59 L 20 130/60 96 10/25/17 16:06 59 L 20 127/59 95 10/25/17 15:36 59 L 18 130/60 95 10/25/17 13:27 20 10/25/17 13:08 97.0 F L 61 18 146/68 92 L Intake and Output 10/25/17 10/26/17 10/26/17 22:59 06:59 14:59 Intake Total 856.433 240 Balance 856.433 240 Intake: Intake, IV Titration 376.433 Amount Heparin Sod,Pork in 0.45% 376.433 NaCl 25,000 unit In 0.45 % NaCl 1 500ml.bag @ 13. 344 UNITS/KG/HR 46 mls/hr IV .[id number] [facility] Rx#: [id number] Oral 480 240 Other: # Voids 2 Weight 168 kg - Constitutional General appearance: morbidly obese - Respiratory Respiratory: bilateral: diminished, rales (to bases) - Cardiovascular Rhythm: regular Heart sounds: normal: S1, S2 Abnormal Heart Sounds: systolic murmur leg Peripheral Edema: bilateral: 2+ radial pulse Peripheral Pulses: bilateral: Normal - Gastrointestinal General gastrointestinal: normal bowel sounds, soft - Psychiatric Psychiatric: A&O x's 3 Results 10/26/17 00:39 10/25/17 13:20 Cardiac Enzymes 10/25/17 10/25/17 Range/Units 13:20 13:20 AST 17 (14-36) U/L CK-MB (CK-2) 1.1 (0.0-2.4) ng/mL Troponin I <0.012 (0.000-0.034) ng/mL Coagulation 10/25/17 10/26/17 10/26/17 Range/Units 13:20 00:39 05:40 PT 10.0 (9.0-12.0) sec APTT 21.0 L 69.6 H 65.3 H (22.0-30.0) sec CBC 10/25/17 10/25/17 10/26/17 Range/Units 13:20 18:17 00:39 WBC 8.0 7.6 7.2 (3.8-10.6) k/uL RBC 3.03 L 2.90 L 2.80 L (3.80-5.40) m/uL Hgb 7.5 L 7.3 L 7.0 L* (11.4-16.0) gm/dL Hct 24.8 L 24.0 L 23.3 L (34.0-46.0) % Plt Count 166 159 142 L (150-450) k/uL Comprehensive Metabolic Panel 10/25/17 Range/Units 13:20 Sodium 145 (137-145) mmol/L Potassium 5.0 (3.5-5.1) mmol/L Chloride 118 H (98-107) mmol/L Carbon Dioxide 19 L (22-30) mmol/L BUN 67 H (7-17) mg/dL Creatinine 2.89 H (0.52-1.04) mg/dL Glucose 99 (74-99) mg/dL Calcium 8.5 (8.4-10.2) mg/dL AST 17 (14-36) U/L ALT 29 (9-52) U/L Alkaline Phosphatase 57 (38-126) U/L Total Protein 5.9 L (6.3-8.2) g/dL Albumin 2.8 L (3.5-5.0) g/dL Current Medications Generic Name Dose Route Start Last Admin Trade Name Freq PRN Reason Stop Dose Admin Acetaminophen 325 mg 10/25/17 16:55 Tylenol Tab PO Q6HR PRN MILD Pain Amlodipine Besylate 10 mg 10/26/17 09:00 10/26/17 08:18 Norvasc PO 10 mg DAILY [facility] Administration Aspirin 81 mg 10/26/17 17:00 Aspirin PO DAILY@1700 [facility] Atorvastatin Calcium 10 mg 10/25/17 21:00 10/25/17 19:57 Lipitor PO 10 mg HS [facility] Administration Bisacodyl 10 mg 10/25/17 16:55 Dulcolax RECTAL DAILY PRN Constipation Ergocalciferol 50,000 unit 10/31/17 09:00 Vitamin D2 PO TH [facility] Furosemide 40 mg 10/26/17 00:00 10/26/17 08:17 Lasix IV 40 mg Q8H [facility] Administration Hydralazine HCl 25 mg 10/25/17 21:00 10/25/17 19:57 Apresoline PO 25 mg BID@14,21 [facility] Administration Hydralazine HCl 75 mg 10/26/17 08:00 10/26/17 08:18 Apresoline PO 75 mg DAILY@0800 [facility] Administration Heparin Sodium/Sodium Chloride 500 mls @ 46 mls/hr 10/25/17 15:00 10/26/17 03 :11 25,000 unit/ Sodium Chloride IV 13.344 units/kg/hr .[id number] [facility] 46 mls/hr Administration Protocol 13.344 UNITS/KG/HR Insulin Detemir 44 unit 10/26/17 07:00 10/26/17 09:17 Levemir SQ 44 unit DAILY@0700 [facility] Administration Losartan Potassium 25 mg 10/26/17 09:00 10/26/17 08:18 Cozaar PO 25 mg DAILY [facility] Administration Magnesium Hydroxide 2,400 mg 10/25/17 16:55 Milk Of Magnesia PO DIRECTED PRN Constipation Metoprolol Tartrate 50 mg 10/25/17 21:00 10/26/17 08:19 Lopressor PO 50 mg BID [facility] Administration Mineral Oil 133 ml 10/25/17 16:55 Fleet Mineral Oil RECTAL ONCE PRN Constipation Nitroglycerin 1 inch 10/25/17 18:00 10/26/17 08:19 Nitro-Bid Oint TOPICAL 1 inch QID [facility] Administration Nystatin 1 applic 10/25/17 21:00 10/26/17 08:20 Mycostatin Powder TOPICAL Not Given BID [facility] Pantoprazole Sodium 40 mg 10/26/17 07:30 10/26/17 08:17 Protonix PO 40 mg AC-[id number] [facility] Administration Spironolactone 25 mg 10/26/17 09:00 10/26/17 08:19 Aldactone PO 25 mg DAILY [facility] Administration Tramadol HCl 50 mg 10/25/17 16:55 Ultram PO Q6HR PRN MODERATE Pain Intake and Output 10/25/17 10/26/17 10/26/17 22:59 06:59 14:59 Intake Total 856.433 240 Balance 856.433 240 Intake: Intake, IV Titration 376.433 Amount Heparin Sod,Pork in 0.45% 376.433 NaCl 25,000 unit In 0.45 % NaCl 1 500ml.bag @ 13. 344 UNITS/KG/HR 46 mls/hr IV .[id number] [facility] Rx#: [id number] Oral 480 240 Other: # Voids 2 Weight 168 kg 10/26/17 00:39 10/25/17 13:20 EKG Interpretations (text) Sinus Rhythm Assessment and Plan Assessment: #1 Chest pressure with elevated d-dimer, on heparin drip #2 pulmonary edema, awaiting echo #3 acute on chronic renal failure #4 anemia #5 hypertension #6 DM type 2 #7 obesity #8 chronic foot ulcer Plan: From Cardiology's perspective, we will continue current dose of lasix. We will obtain a 2-D echo with doppler. Follow trends of the troponins. We will continue to follow the patient and provide further recommendations accordingly. REGIONAL EXTENSION SERVICE SPECIALIST note has been reviewed, I agree with a documented findings and plan of care. Patient was seen and examined.
[2017-10-26] MEDS ORDERED: NON-FORMULARY DRUG (Amino Acids/Protein Hydrolys [Pro-Stat Supplement] 30 ML) PO SCH (11:00)
[2017-10-26 11:24] LABS: Glucose,Whole Blood 106 mg/dL (75-99)
[2017-10-26] MEDS: ASPIRIN 81 MG PO SCH (12:44)
--- NOTE | 2017-10-26 13:16 | ECHOF ---
Referral Reason:pulmonary edema MEASUREMENTS -------- HEIGHT: 152.4 cm WEIGHT: 167.8 kg BP: IVSd: 1.6 cm (0.6 - 1.1) LVIDd: 5.2 cm (3.9 - 5.3) LVPWd: 1.3 cm (0.6 - 1.1) EDV(Teich): 129 ml IVSs: 1.8 cm LVIDs: 4.1 cm LVPWs: 1.7 cm %IVS Thck: 12 % ESV(Teich): 75 ml EF(Teich): 42 % %FS: 21 % SV(Teich): 54 ml LA Diam: 5.2 cm (2.7 - 3.8) RVIDd: 4.0 cm (< 3.3) LALs A4C: 6.5 cm LAAs A4C: 27.3 cm LAESV A-L A4C: 98 ml LAESV MOD A4C: 91 ml LALs A2C: 6.3 cm LAAs A2C: 28.1 cm LAESV A-L A2C: 106 ml LAESV MOD A2C: 102 ml LAESV(A-L): 103 ml LAESV Index (A-L): 42.42 ml/m Ao Diam: 3.0 cm (2.0 - 3.7) LA Diam: 5.0 cm (2.7 - 3.8) AV Cusp: 1.9 cm (1.5 - 2.6) EPSS: 1.2 cm MV E Cory: 1.13 m/s MV DecT: 258 ms MV Dec [place]: 4.4 m/s MV A Cory: 0.88 m/s MV E/A Ratio: 1.29 MV PHT: 75 ms AV Vmax: 1.51 m/s AV maxP.15 mmHg TR Vmax: 2.76 m/s TR maxP.44 mmHg RAP: 5.00 mmHg RVSP: 35.44 mmHg MV EF SLOPE: 64.97 mm/s (70 - 150) MV EXCURSION: 17.31 mm (> 18.000) FINDINGS -------- Sinus rhythm. Morbid Obesity This was a techncally difficult study with suboptimal views, , Lumason utilized for enhancement of im ages. The left ventricular size is normal. There is borderline concentric left ventricular hypertrophy. Overall left ventricular systolic function is low-normal with, an EF between 50 - 55 %. The right ventricle is moderately enlarged. The left atrium is moderately dilated. The right atrial size is normal. 5.0mg OF Lumason UTLIZED: 2 OR MORE WALL SEGMENTS NOT VISUALIZED. The aortic valve is trileaflet, and appears structurally normal. No aortic stenosis or regurgitation. Mild mitral annular calcification present. Mild mitral regurgitation is present. Mild tricuspid regurgitation present. There is mild pulmonary hypertension. The right ventricular systolic pressure, as measured by Doppler, is 35.44mmHg. The pulmonic valve was not well visualized. The aortic root size is normal. There is a small, generalized pericardial effusion present. CONCLUSIONS -------- 1. Morbid Obesity 2. This was a techncally difficult study with suboptimal views, , Lumason utilized for enhancement of images. 3. The left ventricular size is normal. 4. There is borderline concentric left ventricular hypertrophy. 5. Overall left ventricular systolic function is low-normal with, an EF between 50 - 55 %. 6. The right ventricle is moderately enlarged. 7. The left atrium is moderately dilated. 8. The right atrial size is normal. 9. 5.0mg OF Lumason UTLIZED: 2 OR MORE WALL SEGMENTS NOT VISUALIZED. 10. The aortic valve is trileaflet, and appears structurally normal. No aortic stenosis or regurgitat ion. 11. Mild mitral annular calcification present. 12. Mild mitral regurgitation is present. 13. Mild tricuspid regurgitation present. 14. There is mild pulmonary hypertension. 15. The right ventricular systolic pressure, as measured by Doppler, is 35.44mmHg. 16. The pulmonic valve was not well visualized. 17. The aortic root size is normal. 18. There is a small, generalized pericardial effusion present. OVERHEAD WORKER: Yanni Arias RDCS
[2017-10-26] MEDS ORDERED: VANCOMYCIN IV PER PHARMACY 1 EACH MISC MISCELLANE PRN (15:58)
[2017-10-26 16:15] LABS: Glucose,Whole Blood 109 mg/dL (75-99)
[2017-10-26] MEDS ORDERED: VANCOMYCIN 2,500 MG in SODIUM CHLORIDE 0.9% 500 ML IVPB ONE (16:15)
--- NOTE | 2017-10-26 17:19 | P.PN ---
Subjective Progress Note Date: 10/26/17 Principal diagnosis: CHF exacerbation Patient was seen and examined. No acute events overnight. Patient continues to complain of shortness of breath. Patient reports her breathing is not improved since yesterday. A review of ins and outs shows that patient has lost about 4 kg since admission. She is saturating 94% on 2 L nasal cannula. She is getting Lasix 40 mg IV 3 times a day. Objective - Vital Signs Vital signs: Vital Signs Temp 96.6 F L 10/26/17 08:00 Pulse 58 L 10/26/17 12:00 Resp 16 10/26/17 16:00 BP 120/59 10/26/17 12:00 Pulse Ox 94 L 10/26/17 12:00 Intake & Output 10/25/17 10/26/17 10/26/17 18:59 06:59 18:59 Intake Total 856.433 480 Balance 856.433 480 Weight 172.365 kg 168 kg 168 kg Intake: Intake, IV Titration 376.433 Amount Heparin Sod,Pork in 0.45% 376.433 NaCl 25,000 unit In 0.45 % NaCl 1 500ml.bag @ 13. 344 UNITS/KG/HR 46 mls/hr IV .[id number] [facility] Rx#: [id number] Oral 480 480 Other: # Voids 2 2 - Exam General: morbidly obese, no distress, appears at stated age Derm: warm, dry Head: atraumatic, normocephalic, symmetric Eyes: EOMI, no lid lag, anicteric sclera Mouth: no lip lesion, mucus membranes moist Cardiovascular: S1S2 reg, systolic murmur, positive posterior tibial pulse bilateral, Lungs: Decreased breath sounds bilaterally, no rhonchi, no rales , no accessory muscle use Abdominal: soft, nontender to palpation, no guarding, no appreciable organomegaly Ext: no gross muscle atrophy, 2+ lower extremity edema bilaterally, no contractures Neuro: CN II-XI grossly intact, no focal neuro deficits Psych: Alert, oriented, appropriate affect - Labs CBC & Chem 7: 10/26/17 00:39 10/25/17 13:20 Labs: Abnormal Lab Results - Last 24 Hours (Table) 10/25/17 10/25/17 10/26/17 Range/Units 18:17 20:36 00:39 RBC 2.90 L 2.80 L (3.80-5.40) m/uL Hgb 7.3 L 7.0 L* (11.4-16.0) gm/dL Hct 24.0 L 23.3 L (34.0-46.0) % MCH 24.9 L (25.0-35.0) pg MCHC 30.2 L 30.0 L (31.0-37.0) g/dL RDW 16.2 H 16.1 H (11.5-15.5) % Plt Count 142 L (150-450) k/uL Lymphocytes # 0.9 L 0.8 L (1.0-4.8) k/uL APTT (22.0-30.0) sec POC Glucose (mg/dL) 124 H (75-99) mg/dL 10/26/17 10/26/17 10/26/17 Range/Units 00:39 05:40 11:03 RBC (3.80-5.40) m/uL Hgb (11.4-16.0) gm/dL Hct (34.0-46.0) % MCH (25.0-35.0) pg MCHC (31.0-37.0) g/dL RDW (11.5-15.5) % Plt Count (150-450) k/uL Lymphocytes # (1.0-4.8) k/uL APTT 69.6 H 65.3 H (22.0-30.0) sec POC Glucose (mg/dL) 106 H (75-99) mg/dL 10/26/17 Range/Units 16:07 RBC (3.80-5.40) m/uL Hgb (11.4-16.0) gm/dL Hct (34.0-46.0) % MCH (25.0-35.0) pg MCHC (31.0-37.0) g/dL RDW (11.5-15.5) % Plt Count (150-450) k/uL Lymphocytes # (1.0-4.8) k/uL APTT (22.0-30.0) sec POC Glucose (mg/dL) 109 H (75-99) mg/dL Microbiology - Last 24 Hours (Table) 10/25/17 18:17 Blood Culture Gram Stain - Preliminary Blood 10/25/17 18:17 Blood Culture - Final Blood Assessment and Plan Assessment: Assessment 66-year-old female with past medical history of heart failure, CKG, diabetes, hypertension, hyperlipidemia presents the ED for chest pain and shortness of breath. She is admitted to rule out PE and for diuresing. Plan 1. Anemia: Hg 7.0 Hc 23.3 MCV 83.2. Transfuse 1 unit PRBC. Telemetry monitoring. FU Iron studies 2. Chest pain: Likely due to CHF exacerbation complicated with anemia. Trop < 0.012 x 2, EKG shows NSR. Elevated D-dimer. Continue Heparin drip, FU V/Q scan 3. CHF exacerbation: Echo shows EF 50-55%. Diuresis with Lasix 40 IV TID. Resume ARB and BB. Monitor Ins and Outs. Daily weights. K > 4 Mg > 2. FU Cardiology 4. CKD. Cr 2.89. Stable. Monitor and replace electrolytes. Avoid nephrotoxins. Consider Nephrology outPT. 4. DM: A1c 5.4. Continue Levamir 44 units QD. 5. HTN: BP 120/59. Continue Amlodipine 10 mg PO QD, Hydralazine 25 mg PO BID + 75 mg PO QD, Losartan 25 mg PO QD, Metoprolol 50 mg PO BID. Continue to monitor vitals, adjust medications as necessary. 6. HLDA: Continue ASA 81 mg PO QD, Lipitor 10 mg PO QHS.
--- NOTE | 2017-10-26 18:56 | US ---
EXAMINATION TYPE: US chest DATE OF EXAM: 10/26/2017 COMPARISON: NONE CLINICAL HISTORY: marking for pl effusions bilat. TECHNIQUE: Targeted ultrasound of the posterior lower EXAM MEASUREMENTS: Right Pleural Effusion pocket size: 7.7 cm Right skin surface to fluid distance: 2.3 cm Left Pleural Effusion pocket size: 6.2 cm Left skin surface to fluid distance: 4.2 cm Right side marked for possible thoracentesis outside the dept. Left side marked for possible thoracentesis outside the dept. Pulmonologists are able to review the images in the patient?s EMR. Limited due to pt breathing IMPRESSIONS: Bilateral pleural effusions
[2017-10-26 20:24] LABS: Glucose,Whole Blood 105 mg/dL (75-99)
[2017-10-26] MEDS: ATORVASTATIN 10 MG TAB PO SCH (20:41)
[2017-10-27 05:25] LABS: Glucose,Whole Blood 98 mg/dL (75-99)
[2017-10-27 06:04] LABS: Calcium 8.2 mg/dL (8.4-10.2); Potassium 4.8 mmol/L (3.5-5.1)
--- NOTE | 2017-10-27 08:44 | P.NPCON ---
History of Present Illness - Reason for Consult acute renal failure, chronic renal failure - History of Present Illness Reason for consultation: Acute kidney injury on chronic kidney disease History of present illness: Patient is a 66-year-old female seen in renal consultation for acute kidney injury on chronic kidney disease. Patient presented with chest pressure and is being followed by cardiology. Currently she admits to shortness of breath. Her chest x-ray on admission revealed pulmonary edema and a chest ultrasound done yesterday revealed bilateral pleural effusions. She is currently maintained on Lasix 40 mg IV 3 times daily and has good urine output. She is incontinent. She is long-standing history of diabetes mellitus. Echocardiogram revealed diastolic CHF with mild pulmonary hypertension. A kidney ultrasound from April 2017 was benign. She has chronic kidney disease stage III Baseline creatinine in the range of 1.8-2.3. Creatinine is up to 3.02 today. Denies use of NSAIDs. She is currently residing at [facility] and is undergoing rehab. Vital signs are stable. General: The patient appeared well nourished and normally developed. HEENT: Head exam is unremarkable. Neck is without jugular venous distension. LUNGS: Lungs are clear to auscultation and percussion. Breath sounds decreased. HEART: Rate and Rhythm are regular. First and second heart sounds normal. No murmurs, rubs or gallops. ABDOMEN: Abdominal exam reveals normal bowel sounds. Non-tender and non- distended. No evidence of peritonitis. EXTREMITITES: No clubbing, cyanosis, or edema. Bilateral feet wrapped. No obvious drainage. Past Medical History Past Medical History: Diabetes Mellitus, Hyperlipidemia, Hypertension, Osteoarthritis (OA), Renal Disease, Skin Disorder Additional Past Medical History / Comment(s): Cellutitus right leg, ringing in bilateral ears. Current RE heel wounds- wearing mediboot on lt heel,goes to [facility] saturday, w/c w/ assist, STAGE lll KINDNEY DISEASE History of Any Multi-Drug Resistant Organisms: MRSA Date of last positivie culture/infection: 09/09/17 MDRO Source:: FOOT Past Surgical History: Appendectomy, Cholecystectomy Additional Past Surgical History / Comment(s): L OVARIAN CYST, 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,CATARACTS BILAT EYES Past Anesthesia/Blood Transfusion Reactions: No Reported Reaction Additional Past Anesthesia/Blood Transfusion Reaction / Comment(s): clausterphobia Smoking Status: Former smoker - Past Family History Father Additional Family Medical History / Comment(s): ALCOHOLIC Mother Family Medical History: Cancer, CVA/TIA, Diabetes Mellitus, Myocardial Infarction ([place]) Additional Family Medical History / Comment(s): COLON Brother(s) Additional Family Medical History / Comment(s): DRUG DEPENDENCY Medications and Allergies Home Medications Medication Instructions Recorded Confirmed Type Acetaminophen [Tylenol] 325 mg PO Q6HR PRN 09/23/17 10/25/17 History Aspirin EC [Ecotrin Low Dose] 81 mg PO DAILY@1700 09/23/17 10/25/17 History Bisacodyl [Dulcolax] 10 mg RECTAL DAILY PRN 09/23/17 10/25/17 History Ergocalciferol [Vitamin D2] 50,000 unit PO TH 09/23/17 10/25/17 History Insulin Aspart [NovoLOG] See Protocol SQ AC-TID@07,11,1730 09/23/17 10/25/17 History Insulin Glargine,Hum.rec.anlog 44 unit SQ DAILY@0700 09/23/17 10/25/17 History [Basaglar Kwikpen U-100] Lovastatin [Mevacor] 40 mg PO HS 09/23/17 10/25/17 History Magnesium Hydroxide [Milk of 30 ml PO DIRECTED PRN 09/23/17 10/25/17 History Magnesia Concentrate] Mineral Oil [Fleet Mineral Oil] 133 ml RECTAL ONCE PRN 09/23/17 10/25/17 History Omeprazole [PriLOSEC] 20 mg PO DAILY 09/23/17 10/25/17 History amLODIPine [Norvasc] 10 mg PO DAILY 09/23/17 10/25/17 History traMADol HCl [Ultram] 50 mg PO Q6HR PRN 09/23/17 10/25/17 History Furosemide [Lasix] 40 mg PO BID@06,14 10/15/17 10/25/17 History Amino Acids/Protein Hydrolys 30 ml PO DAILY@1100 10/25/17 10/25/17 History [Pro-Stat Supplement] Losartan [Cozaar] 25 mg PO DAILY 10/25/17 10/25/17 History Metoprolol Tartrate [Lopressor] 50 mg PO BID 10/25/17 10/25/17 History Nystatin 100,000 Unit/gm Powd 1 applic TOPICAL BID 10/25/17 10/25/17 History [Mycostatin Powder] Spironolactone [Aldactone] 25 mg PO DAILY 10/25/17 10/25/17 History hydrALAZINE HCL [Apresoline] 25 mg PO BID@14,21 10/25/17 10/25/17 History hydrALAZINE HCL [Apresoline] 75 mg PO DAILY@0800 10/25/17 10/25/17 History Allergies Allergy/AdvReac Type Severity Reaction Status Date / Time Penicillins Allergy Severe Rash/Hives Verified 10/25/17 14:32 simvastatin [From Zocor] AdvReac Severe Unknown Verified 10/25/17 14:32 pregabalin [From Lyrica] AdvReac Unknown Verified 10/25/17 14:32 tide laundry detergent Allergy Itching Uncoded 10/21/17 10:03 Physical Exam Vitals: Vital Signs Temp Pulse Pulse Resp BP BP Pulse Ox 10/27/17 04:00 97.9 F 59 L 20 122/64 94 L 10/27/17 00:00 97.8 F 60 18 129/60 97 10/26/17 23:36 97.6 F 60 18 132/66 97 10/26/17 21:48 97.8 F 59 L 18 139/61 96 10/26/17 21:45 97.8 F 60 18 140/61 96 10/26/17 21:18 97.8 F 60 18 130/62 10/26/17 21:08 97.8 F 59 L 18 134/61 95 10/26/17 21:04 97.8 F 68 18 136/68 96 10/26/17 20:00 97.9 F 67 18 137/60 96 10/26/17 16:00 16 10/26/17 12:00 58 L 16 120/59 94 L 10/26/17 11:23 16 Intake and Output 10/26/17 10/27/17 10/27/17 22:59 06:59 14:59 Intake Total 240 310 Balance 240 310 Intake: Oral 240 Blood Product 0 310 Rc As-3 Unit 0 310 [id number] Other: # Voids 2 3 Weight 169 kg Results - Lab Results Most recent lab results Calcium 8.2 mg/dL (8.4-10.2) L 10/27/17 05:21 Magnesium 2.0 mg/dL (1.6-2.3) 10/25/17 13:20 10/26/17 00:39 10/27/17 05:21 Assessment and Plan Plan: Assessment: 1. Nonoliguric acute kidney injury secondary to ATN secondary to cardiorenal syndrome. Creatinine up at 3.02 today. Ultrasound from April 2017 was benign. 2. Volume overload. 3. Diastolic CHF with mild pulmonary hypertension. 4. Anemia. Rule out iron deficiency. Component of chronic kidney disease. 5. Insulin-dependent diabetes mellitus. 6. Coag-negative staph bacteremia. Possible contamination. 7. Metabolic acidosis secondary to acute kidney injury. 8. Chest pain. Cardiology following. Currently maintained on heparin drip. 9. Hypertension with chronic kidney disease. Controlled. 10. Chronic kidney disease stage III with baseline creatinine in the range of 1.8-2.3. Etiology is diabetic kidney disease and cardiorenal syndrome. Plan: I will change Lasix to 60 mg IV twice daily. Follow-up iron studies. Add Aranesp. Avoid nephrotoxic agents and hypotensive episodes. Check urinalysis. Repeat electrolytes in the morning. Thank you for the consultation. I will continue to follow the patient with you during her hospital stay.
[2017-10-27 08:55] LABS: Anisocytosis Slight; HGB 8.1 gm/dL (11.4-16.0); Hypochromasia Marked; MCH 25.5 pg (25.0-35.0); Mean Platelet Volume 9.3; Platelet Count 152 k/uL (150-450); RBC 3.18 m/uL (3.80-5.40); RDW 16.1 % (11.5-15.5); WBC 10.4 k/uL (3.8-10.6)
[2017-10-27] MEDS: amLODIPine 10 MG TAB PO SCH (08:56)
[2017-10-27] MEDS: LOSARTAN 25 MG TAB PO SCH (08:56)
[2017-10-27] MEDS: PANTOPRAZOLE 40 MG TABLET PO SCH (08:56)
[2017-10-27] MEDS: NITROGLYCERIN OINT 1 INCH/GM PACKET TOPICAL SCH (08:56)
[2017-10-27] MEDS: METOPROLOL TARTRATE 50 MG TAB PO SCH ×2 (08:56→20:58)
[2017-10-27] MEDS: hydrALAZINE HCL 25 MG TAB PO SCH ×3 (08:56→20:57)
[2017-10-27] MEDS: SPIRONOLACTONE 25 MG TAB PO SCH (08:56)
[2017-10-27] MEDS: NYSTATIN 100,000 UNIT/GM POWD 15 GM TOPICAL SCH ×2 (08:57→22:47)
[2017-10-27] MEDS ORDERED: FUROSEMIDE 10 MG/ML 10 ML VIAL IV SCH (09:00)
[2017-10-27] MEDS ORDERED: VANCOMYCIN 2,250 MG in SODIUM CHLORIDE 0.9% 500 ML IVPB ONE (09:00)
[2017-10-27] MEDS: INSULIN DETEMIR 100 UNIT/ML 10 ML VIAL SQ SCH (09:01)
[2017-10-27] MEDS: traMADol 50 MG TAB PO PRN (09:01)
--- NOTE | 2017-10-27 11:19 | P.PN ---
Subjective Progress Note Date: 10/27/17 Principal diagnosis: CHF exacerbation. Patient was seen and examined. No acute events overnight. She is saturating 94% on 4 L. Objective - Vital Signs Vital signs: Vital Signs Temp 96.4 F L 10/27/17 08:00 Pulse 58 L 10/27/17 08:00 Resp 16 10/27/17 08:00 BP 123/60 10/27/17 08:00 Pulse Ox 94 L 10/27/17 08:00 Intake & Output 10/26/17 10/27/17 10/27/17 18:59 06:59 18:59 Intake Total 720 310 240 Balance 720 310 240 Weight 168 kg 169 kg Intake: Oral 720 240 Blood Product 310 Rc As-3 Unit 310 [id number] Other: # Voids 2 3 2 - Exam General: morbidly obese, no distress, appears at stated age Derm: warm, dry Head: atraumatic, normocephalic, symmetric Eyes: EOMI, no lid lag, anicteric sclera Mouth: no lip lesion, mucus membranes moist Cardiovascular: S1S2 reg, systolic murmur, positive posterior tibial pulse bilateral, Lungs: Decreased breath sounds bilaterally, no rhonchi, no rales , no accessory muscle use Abdominal: soft, nontender to palpation, no guarding, no appreciable organomegaly Ext: no gross muscle atrophy, 2+ lower extremity edema bilaterally, no contractures, BL feet wrapped. Neuro: CN II-XI grossly intact, no focal neuro deficits Psych: Alert, oriented, appropriate affect - Labs CBC & Chem 7: 10/27/17 05:21 10/27/17 05:21 Labs: Abnormal Lab Results - Last 24 Hours (Table) 10/26/17 10/26/17 10/26/17 Range/Units 11:03 16:07 18:58 RBC (3.80-5.40) m/uL Hgb (11.4-16.0) gm/dL Hct (34.0-46.0) % MCHC (31.0-37.0) g/dL RDW (11.5-15.5) % APTT (22.0-30.0) sec Chloride (98-107) mmol/L Carbon Dioxide (22-30) mmol/L BUN (7-17) mg/dL Creatinine (0.52-1.04) mg/dL POC Glucose (mg/dL) 106 H 109 H (75-99) mg/dL Calcium (8.4-10.2) mg/dL Crossmatch See Detail 10/26/17 10/27/17 10/27/17 Range/Units 20:23 05:21 05:21 RBC (3.80-5.40) m/uL Hgb (11.4-16.0) gm/dL Hct (34.0-46.0) % MCHC (31.0-37.0) g/dL RDW (11.5-15.5) % APTT 53.6 H (22.0-30.0) sec Chloride 116 H (98-107) mmol/L Carbon Dioxide 21 L (22-30) mmol/L BUN 68 H (7-17) mg/dL Creatinine 3.02 H (0.52-1.04) mg/dL POC Glucose (mg/dL) 105 H (75-99) mg/dL Calcium 8.2 L (8.4-10.2) mg/dL Crossmatch 10/27/17 Range/Units 05:21 RBC 3.18 L (3.80-5.40) m/uL Hgb 8.1 L (11.4-16.0) gm/dL Hct 27.0 L (34.0-46.0) % MCHC 30.0 L (31.0-37.0) g/dL RDW 16.1 H (11.5-15.5) % APTT (22.0-30.0) sec Chloride (98-107) mmol/L Carbon Dioxide (22-30) mmol/L BUN (7-17) mg/dL Creatinine (0.52-1.04) mg/dL POC Glucose (mg/dL) (75-99) mg/dL Calcium (8.4-10.2) mg/dL Crossmatch Microbiology - Last 24 Hours (Table) 10/26/17 20:41 Wound Culture - Preliminary Ankle - Right 10/25/17 18:17 Blood Culture Gram Stain - Preliminary Blood Blood Culture - Preliminary Coagulase Negative Staph 10/25/17 18:17 Blood Culture - Final Blood Assessment and Plan Assessment: Assessment 66-year-old female with past medical history of heart failure, CKG, diabetes, hypertension, hyperlipidemia presents the ED for chest pain and shortness of breath. She is admitted to rule out PE and for diuresing. Plan 1. Dyspnea: Likely CHF exacerbation with component from anemia. 2. Anemia: Hg 8.1 Hc 27.0 MCV 85.0. s/p 1 unit PRBC. Watch as patient is on Heparin drip. Add Aranesp as per Nephro. FU Iron studies 3. Bacteremia: BCx 10/25 + Coagulase negative Staph. Started on Vancomycin IV yesterday. No fever or leukocytosis. FU UA, BCx repeat, CXR repeat 4. CHF exacerbation: Echo shows EF 50-55%. Lasix 40 IV TID decreased to 60 mg BID. Continue Aldactone 25 mg PO QD, Metoprolol 50 mg PO BID, Losartan 25 mg PO QD. Monitor Ins and Outs. Daily weights. K > 4 Mg > 2. FU Cardiology 5. Chest pain: Likely due to CHF exacerbation complicated with anemia. Trop < 0.012 x 2, EKG shows NSR. Elevated D-dimer, high risk for PE. Continue Heparin drip, FU V/Q scan 6. JOHN on CKD. Cr 3.02. Worsening since yesterday. Monitor and replace electrolytes. Avoid nephrotoxins. FU Nephrology, UA, BMP/Mg 7. DM: POC glucose 98. A1c 5.4. Continue Levamir 44 units QD. Diabetic diet. Hypoglycemic precautions. 8. HTN: BP 126/60. Continue Amlodipine 10 mg PO QD, Hydralazine 25 mg PO BID + 75 mg PO QD, Losartan 25 mg PO QD, Metoprolol 50 mg PO BID. Continue to monitor vitals, adjust medications as necessary. 9. ASCVD risk: Continue ASA 81 mg PO QD, Lipitor 10 mg PO QHS.
[2017-10-27 11:29] LABS: Glucose,Whole Blood 123 mg/dL (75-99)
--- NOTE | 2017-10-27 12:30 | XR ---
EXAMINATION TYPE: XR chest 2V DATE OF EXAM: 10/27/2017 HISTORY: SOB. REFERENCE: Previous study dated 10/25/2017. FINDINGS: The heart is enlarged. There is worsening opacity of the right hemithorax. There is a martine nuing right-sided effusion. IMPRESSION: 1. WORSENING RIGHT-SIDED AIRSPACE DISEASE. 2. RIGHT-SIDED EFFUSION. 3. CARDIOMEGALY.
[2017-10-27] MEDS: ASPIRIN 81 MG PO SCH (13:30)
[2017-10-27] MEDS: HEPARIN SOD,PORK IN 0.45% NACL 25,000 UNIT in 0.45% NACL 1 500ML.BAG IV SCH ×2 (15:07→22:47)
[2017-10-27] MEDS: DARBEPOETIN ALFA 40 MCG/0.4 ML SYRINGE SQ SCH (15:07)
--- NOTE | 2017-10-27 15:09 | P.CNPUL ---
History of Present Illness Consult date: 10/27/17 Reason for consult: dyspnea, pleural effusion History of present illness: Morbidly obese 66-year-old female patient with a BMI of 53.5 along with history of CHF/diastolic dysfunction, diabetes mellitus type 2, chronic renal failure stage III, chronic lower extremity edema/wounds, hypertension and hyperlipidemia , who was recently hospitalized from [facility] for progressive worsening shortness of breath. She also developed some chest pain at home. She was not able to give a good description of brought her chest pain. Based on all this, the patient was sent over to the hospital and the chest x-ray showed interstitial edema and development of right-sided pleural effusion. The patient is chronically failure and the patient was found to have further interval worsening of the renal function and the creatinine was up to 3.0 and the patient is also chronically anemic with hemoglobin as low as 7.0. The BNP level is 3960. 2 sets of cardiac enzymes of been negative. D-dimer is at 1.8. The patient was seen by cardiology. The patient was started on Lasix 80 mg IV push. She is also on Aldactone. The patient is producing urine output in the order of a liter and a daily basis. Echocardiogram was done and the patient was found to have a preserved LV function with an ejection fraction of 50-55%. No cervical valvular abnormalities. The ultrasound the chest was done in 7.7 pocket of pleural fluid identified in the right lung, for possible thoracentesis Review of Systems Constitutional: Reports fatigue, Reports lethargy, Reports weight gain Eyes: denies blurred vision, denies bulging eye, denies decreased vision Ears: deny: decreased hearing, ear discharge, earache, tinnitus Ears, nose, mouth and throat: Denies headache, Denies sore throat Cardiovascular: Reports decreased exercise tolerance, Reports dyspnea on exertion, Reports edema, Reports shortness of breath Respiratory: Reports dyspnea Gastrointestinal: Denies abdominal pain, Denies diarrhea, Denies nausea, Denies vomiting Genitourinary: Denies dysuria, Denies hematuria Musculoskeletal: Denies myalgias Musculoskeletal: bilateral: ankle swelling, absent: ankle pain, ankle stiffness Integumentary: Reports wounds Neurological: Reports weakness Psychiatric: Denies anxiety, Denies depression Endocrine: Reports as per HPI Hematologic/Lymphatic: Reports as per HPI Allergic/Immunologic: Reports as per HPI Past Medical History Past Medical History: Diabetes Mellitus, Hyperlipidemia, Hypertension, Osteoarthritis (OA), Renal Disease, Skin Disorder Additional Past Medical History / Comment(s): Cellutitus right leg, ringing in bilateral ears. Current RE heel wounds- wearing mediboot on lt heel,[facility], w/c w/ assist, STAGE lll KINDNEY DISEASE History of Any Multi-Drug Resistant Organisms: MRSA Date of last positivie culture/infection: 09/09/17 MDRO Source:: FOOT Past Surgical History: Appendectomy, Cholecystectomy Additional Past Surgical History / Comment(s): L OVARIAN CYST, 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,CATARACTS BILAT EYES Past Anesthesia/Blood Transfusion Reactions: No Reported Reaction Additional Past Anesthesia/Blood Transfusion Reaction / Comment(s): clausterphobia Smoking Status: Former smoker - Past Family History Father Additional Family Medical History / Comment(s): ALCOHOLIC Mother Family Medical History: Cancer, CVA/TIA, Diabetes Mellitus, Myocardial Infarction ([place]) Additional Family Medical History / Comment(s): COLON Brother(s) Additional Family Medical History / Comment(s): DRUG DEPENDENCY Medications and Allergies Home Medications Medication Instructions Recorded Confirmed Type Acetaminophen [Tylenol] 325 mg PO Q6HR PRN 09/23/17 10/25/17 History Aspirin EC [Ecotrin Low Dose] 81 mg PO DAILY@1700 09/23/17 10/25/17 History Bisacodyl [Dulcolax] 10 mg RECTAL DAILY PRN 09/23/17 10/25/17 History Ergocalciferol [Vitamin D2] 50,000 unit PO TH 09/23/17 10/25/17 History Insulin Aspart [NovoLOG] See Protocol SQ AC-TID@09/23/17 10/25/17 History Insulin Glargine,Hum.rec.anlog 44 unit SQ DAILY@0700 09/23/17 10/25/17 History [Basaglar Kwikpen U-100] Lovastatin [Mevacor] 40 mg PO HS 09/23/17 10/25/17 History Magnesium Hydroxide [Milk of 30 ml PO DIRECTED PRN 09/23/17 10/25/17 History Magnesia Concentrate] Mineral Oil [Fleet Mineral Oil] 133 ml RECTAL ONCE PRN 09/23/17 10/25/17 History Omeprazole [PriLOSEC] 20 mg PO DAILY 09/23/17 10/25/17 History amLODIPine [Norvasc] 10 mg PO DAILY 09/23/17 10/25/17 History traMADol HCl [Ultram] 50 mg PO Q6HR PRN 09/23/17 10/25/17 History Furosemide [Lasix] 40 mg PO BID@06,14 10/15/17 10/25/17 History Amino Acids/Protein Hydrolys 30 ml PO DAILY@1100 10/25/17 10/25/17 History [Pro-Stat Supplement] Losartan [Cozaar] 25 mg PO DAILY 10/25/17 10/25/17 History Metoprolol Tartrate [Lopressor] 50 mg PO BID 10/25/17 10/25/17 History Nystatin 100,000 Unit/gm Powd 1 applic TOPICAL BID 10/25/17 10/25/17 History [Mycostatin Powder] Spironolactone [Aldactone] 25 mg PO DAILY 10/25/17 10/25/17 History hydrALAZINE HCL [Apresoline] 25 mg PO BID@14,10/25/17 10/25/17 History hydrALAZINE HCL [Apresoline] 75 mg PO DAILY@0800 10/25/17 10/25/17 History Allergies Allergy/AdvReac Type Severity Reaction Status Date / Time Penicillins Allergy Severe Rash/Hives Verified 10/25/17 14:32 simvastatin [From Zocor] AdvReac Severe Unknown Verified 10/25/17 14:32 pregabalin [From Lyrica] AdvReac Unknown Verified 10/25/17 14:32 tide laundry detergent Allergy Itching Uncoded 10/21/17 10:03 Physical Exam Vitals: Vital Signs Temp Pulse Pulse Resp BP BP Pulse Ox 10/27/17 11:31 16 10/27/17 08:00 96.4 F L 58 L 16 123/60 94 L 10/27/17 04:00 97.9 F 59 L 20 122/64 94 L 10/27/17 00:00 97.8 F 60 18 129/60 97 10/26/17 23:36 97.6 F 60 18 132/66 97 10/26/17 21:48 97.8 F 59 L 18 139/61 96 10/26/17 21:45 97.8 F 60 18 140/61 96 10/26/17 21:18 97.8 F 60 18 130/62 10/26/17 21:08 97.8 F 59 L 18 134/61 95 10/26/17 21:04 97.8 F 68 18 136/68 96 10/26/17 20:00 97.9 F 67 18 137/60 96 10/26/17 16:00 16 Intake and Output 10/26/17 10/27/17 10/27/17 22:59 06:59 14:59 Intake Total 240 310 240 Balance 240 310 240 Intake: Oral 240 240 Blood Product 0 310 Rc As-3 Unit 0 310 [id number] Other: # Voids 2 3 2 Weight 169 kg Gen. appearance, comfortable obese, nonacute distress Head exam was generally normal. There was no scleral icterus or corneal arcus. Mucous membranes were moist. Neck was supple and without jugular venous distension, thyromegaly, or carotid bruits. Carotids were easily palpable bilaterally. There was no adenopathy. Lungs sounds are diminished bilaterally especially in the right lung base along with some dullness to percussion Heart sounds are regular, positive S1-S2 and there is systolic ejection murmur grade 3/6 systolic the precordium Abdominal exam revealed normal bowel sounds. The abdomen was soft, non-tender, and without masses, organomegaly, or appreciable enlargement of the abdominal aorta. Extremities revealed +1-2 pitting edema there is no cyanosis or clubbing, 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, there is also evidence of chronic venous stasis and lower extremities bilaterally. Patient is wearing a TCC boot in the left lower extremity. Neurologic OA times 3, no focal deficits Results - Laboratory Findings CBC and BMP: 10/27/17 05:21 10/27/17 05:21 PT/INR, D-dimer PT 10.0 sec (9.0-12.0) 10/25/17 13:20 INR 1.0 (<1.2) 10/25/17 13:20 D-Dimer 1.80 mg/L FEU (<0.60) H 10/25/17 13:20 Abnormal lab findings: Abnormal Labs 10/25/17 10/25/17 10/25/17 13:20 13:20 13:20 RBC 3.03 L Hgb 7.5 L Hct 24.8 L MCH 24.7 L MCHC 30.2 L RDW 16.1 H Plt Count Lymphocytes # 0.8 L APTT 21.0 L D-Dimer 1.80 H Chloride 118 H Carbon Dioxide 19 L BUN 67 H Creatinine 2.89 H POC Glucose (mg/dL) Calcium Total Protein 5.9 L Albumin 2.8 L Crossmatch 10/25/17 10/25/17 10/26/17 18:17 20:36 00:39 RBC 2.90 L 2.80 L Hgb 7.3 L 7.0 L* Hct 24.0 L 23.3 L MCH 24.9 L MCHC 30.2 L 30.0 L RDW 16.2 H 16.1 H Plt Count 142 L Lymphocytes # 0.9 L 0.8 L APTT D-Dimer Chloride Carbon Dioxide BUN Creatinine POC Glucose (mg/dL) 124 H Calcium Total Protein Albumin Crossmatch 10/26/17 10/26/17 10/26/17 00:39 05:40 11:03 RBC Hgb Hct MCH MCHC RDW Plt Count Lymphocytes # APTT 69.6 H 65.3 H D-Dimer Chloride Carbon Dioxide BUN Creatinine POC Glucose (mg/dL) 106 H Calcium Total Protein Albumin Crossmatch 10/26/17 10/26/17 10/26/17 16:07 18:58 20:23 RBC Hgb Hct MCH MCHC RDW Plt Count Lymphocytes # APTT D-Dimer Chloride Carbon Dioxide BUN Creatinine POC Glucose (mg/dL) 109 H 105 H Calcium Total Protein Albumin Crossmatch See Detail 10/27/17 10/27/17 10/27/17 05:21 05:21 05:21 RBC 3.18 L Hgb 8.1 L Hct 27.0 L MCH MCHC 30.0 L RDW 16.1 H Plt Count Lymphocytes # APTT 53.6 H D-Dimer Chloride 116 H Carbon Dioxide 21 L BUN 68 H Creatinine 3.02 H POC Glucose (mg/dL) Calcium 8.2 L Total Protein Albumin Crossmatch 10/27/17 11:23 RBC Hgb Hct MCH MCHC RDW Plt Count Lymphocytes # APTT D-Dimer Chloride Carbon Dioxide BUN Creatinine POC Glucose (mg/dL) 123 H Calcium Total Protein Albumin Crossmatch - Diagnostic Findings Chest x-ray: image reviewed Assessment and Plan Plan: Assessment 1 worsening shortness of breath with signs of fluid overload and CHF and development of the pleural effusion right more than left 2 chest pain under investigation. Pulmonary embolus in is doubtful. Cardiac enzymes are negative for now. EKGs nonrevealing 3 chronic stage III kidney failure with acute on top of chronic kidney disease interval worsening renal function 4 chronic anemia, likely secondary to renal failure 5 diabetes mellitus type 2 6 morbid obesity with a BMI of 53.5 7 chronic lower extremity edema 8 running foot ulcer 9 hypertension 10 chronic bilateral lower extremity heel ulcerations Plan Continue diuresis. We'll follow the x-ray findings. May ultimately need a thoracentesis if diuretics fail to improve the patient's fluid status and/or pleural effusion. Note that this will be a technically difficult procedure based on the patient's immobility and morbidly obese body habitus. Resume ultimately decide to proceed with an ultrasound-guided thoracentesis through IR. It final decision will be done with the next 2448 hrs.
--- NOTE | 2017-10-27 16:19 | P.CONS ---
History of Present Illness - Reason for Consult Consult date: 10/27/17 - Chief Complaint Shortness of breath - History of Present Illness 66 year old woman with superobesity presents to the ER with marked increase of shortness of breath, with some chest pain also occurring. At admission there was evidence of worsening of her chronic renal failure and significant volume overload, with some diuresis she is already receiving relief from her extensive shortness of breath. At this time she is not complaining of any chest pain. She was found and she has been seen by pulmonary critical care, and there is a possibility of a thoracentesis future. At this time she denies other acute new complaints. A total contact cast is in place on the left leg for the pressure ulcer to the left heel is negative for any difficulties at all. The chronic ulcerations of the right heel is also without pain. She is aware of improved urinary output since being on the higher doses of Lasix. As noted she has a history of significant underlying coronary artery disease with a history of congestive heart failure with known diastolic dysfunction. She is feeling slightly better at this time but certainly not nearly her baseline. She does have significant debility. Review of Systems Pleasant 66-year-old woman is comfortable at this time she is much less short of breath. HEENT:Denies headache or acute visual change. Denies sinus or mouth discomforts. Denies neck stiffness or pain. Denies significant oral cavity pain. Denies difficulty on swallowing. Lungs: Does have severe shortness of breath but this is improved denies smoking amounts of cough or sputum production and no hemoptysis Cardiovascular: Chest pain has improved. She is still with shortness of breath with any activity, getting on the bedpan made her more short of breath. She is a 1 or 2 person assist when she attempts to stand and move, this causes significant shortness of breath still. Gastrointestinal:Denies nausea, vomiting, diarrhea, constipation, hematemesis, melena, hematochezia. No no significant change of bowel habit noticed. Musculoskeletal: denies significant myalgias or arthralgias. No new joint swelling. Denies new back pain. Skin: Chronic ulcerations as per the HPI Neuro: Denies headache or visual change. Denies any new onset weakness or difficulty with ambulation. Denies falls or seizures. Psychiatric: She does have some anxiety about being an extended care facility because she is not with her cat is aware of the issues of trying to improve her health to become more independent Endocrine: Chronic fatigue and does have superobesity. Past Medical History Past Medical History: Diabetes Mellitus, Hyperlipidemia, Hypertension, Osteoarthritis (OA), Renal Disease, Skin Disorder Additional Past Medical History / Comment(s): Cellutitus right leg, ringing in bilateral ears. 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 As noted was a smoker in the past. She doesn't have a history of stiff and alcohol use. 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 No international travel. no experience. Has her pet cat, Guille Smoking Status: Former smoker - Past Family History Father Additional Family Medical History / Comment(s): ALCOHOLIC Mother Family Medical History: Cancer, CVA/TIA, Diabetes Mellitus, Myocardial Infarction (MS) Additional Family Medical History / Comment(s): COLON Brother(s) Additional Family Medical History / Comment(s): DRUG DEPENDENCY Medications and Allergies Home Medications and Allergies Comment(s): Current Medications Acetaminophen (Tylenol Tab) 325 mg PO Q6HR PRN PRN Reason: MILD Pain Amlodipine Besylate (Norvasc) 10 mg PO DAILY ON LICENSE OF [facility] Last Admin: 10/27/17 08:56 Dose: 10 mg Aspirin (Aspirin) 81 mg PO DAILY@1700 ON LICENSE OF [facility] Last Admin: 10/27/17 13:30 Dose: 81 mg Atorvastatin Calcium (Lipitor) 10 mg PO HS ON LICENSE OF [facility] Last Admin: 10/26/17 20:41 Dose: 10 mg Bisacodyl (Dulcolax) 10 mg RECTAL DAILY PRN PRN Reason: Constipation Darbepoetin Mckay (Aranesp) 40 mcg SQ Q7D ON LICENSE OF [facility] Last Admin: 10/27/17 15:07 Dose: 40 mcg Ergocalciferol (Vitamin D2) 50,000 unit PO TH ON LICENSE OF [facility] Furosemide (Lasix) 80 mg IV Q12HR ON LICENSE OF [facility] Hydralazine HCl (Apresoline) 25 mg PO BID@14,21 ON LICENSE OF [facility] Last Admin: 10/27/17 13:31 Dose: 25 mg Hydralazine HCl (Apresoline) 75 mg PO DAILY@0800 ON LICENSE OF [facility] Last Admin: 10/27/17 08:56 Dose: 75 mg Heparin Sodium/Sodium Chloride (25,000 unit/ Sodium Chloride) 500 mls @ 46 mls/ hr IV .[id number] ON LICENSE OF [facility]; Protocol Last Admin: 10/27/17 15:07 Dose: 13.344 units/kg/hr, 46 mls/hr Insulin Detemir (Levemir) 44 unit SQ DAILY@0700 ON LICENSE OF [facility] Last Admin: 10/27/17 09:01 Dose: 44 unit Magnesium Hydroxide (Milk Of Magnesia) 2,400 mg PO DIRECTED PRN PRN Reason: Constipation Metoprolol Tartrate (Lopressor) 50 mg PO BID ON LICENSE OF [facility] Last Admin: 10/27/17 08:56 Dose: 50 mg Mineral Oil (Fleet Mineral Oil) 133 ml RECTAL ONCE PRN PRN Reason: Constipation Miscellaneous Information (Pharmacy To Dose Iv Vancomycin) 1 each MISCELLANE DIRECTED PRN PRN Reason: Per Protocol Nystatin (Mycostatin Powder) 1 applic TOPICAL BID ON LICENSE OF [facility] Last Admin: 10/27/17 08:57 Dose: 1 applic Pantoprazole Sodium (Protonix) 40 mg PO AC-BRKFST ON LICENSE OF [facility] Last Admin: 10/27/17 08:56 Dose: 40 mg Spironolactone (Aldactone) 25 mg PO DAILY ON LICENSE OF [facility] Last Admin: 10/27/17 08:56 Dose: 25 mg Tramadol HCl (Ultram) 50 mg PO Q6HR PRN PRN Reason: MODERATE Pain Last Admin: 10/27/17 09:01 Dose: 50 mg Home Medications Medication Instructions Recorded Confirmed Type Acetaminophen [Tylenol] 325 mg PO Q6HR PRN 09/23/17 10/25/17 History Aspirin EC [Ecotrin Low Dose] 81 mg PO DAILY@1700 09/23/17 10/25/17 History Bisacodyl [Dulcolax] 10 mg RECTAL DAILY PRN 09/23/17 10/25/17 History Ergocalciferol [Vitamin D2] 50,000 unit PO TH 09/23/17 10/25/17 History Insulin Aspart [NovoLOG] See Protocol SQ AC-TID@07,,1730 09/23/17 10/25/17 History Insulin Glargine,Hum.rec.anlog 44 unit SQ DAILY@0700 09/23/17 10/25/17 History [Basaglar Kwikpen U-100] Lovastatin [Mevacor] 40 mg PO HS 09/23/17 10/25/17 History Magnesium Hydroxide [Milk of 30 ml PO DIRECTED PRN 09/23/17 10/25/17 History Magnesia Concentrate] Mineral Oil [Fleet Mineral Oil] 133 ml RECTAL ONCE PRN 09/23/17 10/25/17 History Omeprazole [PriLOSEC] 20 mg PO DAILY 09/23/17 10/25/17 History amLODIPine [Norvasc] 10 mg PO DAILY 09/23/17 10/25/17 History traMADol HCl [Ultram] 50 mg PO Q6HR PRN 09/23/17 10/25/17 History Furosemide [Lasix] 40 mg PO BID@06,14 10/15/17 10/25/17 History Amino Acids/Protein Hydrolys 30 ml PO DAILY@1100 10/25/17 10/25/17 History [Pro-Stat Supplement] Losartan [Cozaar] 25 mg PO DAILY 10/25/17 10/25/17 History Metoprolol Tartrate [Lopressor] 50 mg PO BID 10/25/17 10/25/17 History Nystatin 100,000 Unit/gm Powd 1 applic TOPICAL BID 10/25/17 10/25/17 History [Mycostatin Powder] Spironolactone [Aldactone] 25 mg PO DAILY 10/25/17 10/25/17 History hydrALAZINE HCL [Apresoline] 25 mg PO BID@14,10/25/17 10/25/17 History hydrALAZINE HCL [Apresoline] 75 mg PO DAILY@0800 10/25/17 10/25/17 History Allergies Allergy/AdvReac Type Severity Reaction Status Date / Time Penicillins Allergy Severe Rash/Hives Verified 10/25/17 14:32 simvastatin [From Zocor] AdvReac Severe Unknown Verified 10/25/17 14:32 pregabalin [From Lyrica] AdvReac Unknown Verified 10/25/17 14:32 tide laundry detergent Allergy Itching Uncoded 10/21/17 10:03 Physical Exam Vitals: Vital Signs Temp Pulse Pulse Resp BP BP Pulse Ox 10/27/17 11:31 16 10/27/17 08:00 96.4 F L 58 L 16 123/60 94 L 10/27/17 04:00 97.9 F 59 L 20 122/64 94 L 10/27/17 00:00 97.8 F 60 18 129/60 97 10/26/17 23:36 97.6 F 60 18 132/66 97 10/26/17 21:48 97.8 F 59 L 18 139/61 96 10/26/17 21:45 97.8 F 60 18 140/61 96 10/26/17 21:18 97.8 F 60 18 130/62 10/26/17 21:08 97.8 F 59 L 18 134/61 95 10/26/17 21:04 97.8 F 68 18 136/68 96 10/26/17 20:00 97.9 F 67 18 137/60 96 10/26/17 16:00 16 Intake and Output 10/27/17 10/27/17 10/27/17 06:59 14:59 22:59 Intake Total 310 480 Balance 310 480 Intake: Oral 480 Blood Product 310 Rc As-3 Unit 310 [id number] Other: # Voids 3 2 Weight 169 kg 6-year-old woman with superobesity is mostly comfortable in her respiratory distress has improved Head exam was generally normal. There was no scleral icterus or corneal arcus. Mucous membranes were moist. Neck was supple and without jugular venous distension, thyromegaly, or carotid bruits. Carotids were easily palpable bilaterally. There was no adenopathy. Lungs sounds are diminished bilaterally especially in the right lung base along with some dullness to percussion Heart sounds are regular, positive S1-S2 and there is systolic ejection murmur grade 3/6 systolic the precordium Abdominal exam revealed normal bowel sounds. The abdomen was soft, non-tender, and without masses, organomegaly, or appreciable enlargement of the abdominal aorta. Extremities revealed +1-2 pitting edema there is no cyanosis or clubbing, 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, there is also evidence of chronic venous stasis and lower extremities bilaterally. Left heel measures at 2.4 x 3.5 x 0.2 cm right heel has total contact cast in place and cannot be measured Patient is wearing a TCC boot in the left lower extremity. Neurologic alert oriented person place and time does not have acute gross focal sensory motor deficits Results CBC & Chem 7: 10/27/17 05:21 10/27/17 05:21 Labs: Abnormal Lab Results - Last 24 Hours (Table) 10/26/17 10/26/17 10/26/17 Range/Units 16:07 18:58 20:23 RBC (3.80-5.40) m/uL Hgb (11.4-16.0) gm/dL Hct (34.0-46.0) % MCHC (31.0-37.0) g/dL RDW (11.5-15.5) % APTT (22.0-30.0) sec Chloride (98-107) mmol/L Carbon Dioxide (22-30) mmol/L BUN (7-17) mg/dL Creatinine (0.52-1.04) mg/dL POC Glucose (mg/dL) 109 H 105 H (75-99) mg/dL Calcium (8.4-10.2) mg/dL Crossmatch See Detail 10/27/17 10/27/17 10/27/17 Range/Units 05:21 05:21 05:21 RBC 3.18 L (3.80-5.40) m/uL Hgb 8.1 L (11.4-16.0) gm/dL Hct 27.0 L (34.0-46.0) % MCHC 30.0 L (31.0-37.0) g/dL RDW 16.1 H (11.5-15.5) % APTT 53.6 H (22.0-30.0) sec Chloride 116 H (98-107) mmol/L Carbon Dioxide 21 L (22-30) mmol/L BUN 68 H (7-17) mg/dL Creatinine 3.02 H (0.52-1.04) mg/dL POC Glucose (mg/dL) (75-99) mg/dL Calcium 8.2 L (8.4-10.2) mg/dL Crossmatch 10/27/17 Range/Units 11:23 RBC (3.80-5.40) m/uL Hgb (11.4-16.0) gm/dL Hct (34.0-46.0) % MCHC (31.0-37.0) g/dL RDW (11.5-15.5) % APTT (22.0-30.0) sec Chloride (98-107) mmol/L Carbon Dioxide (22-30) mmol/L BUN (7-17) mg/dL Creatinine (0.52-1.04) mg/dL POC Glucose (mg/dL) 123 H (75-99) mg/dL Calcium (8.4-10.2) mg/dL Crossmatch Microbiology - Last 24 Hours (Table) 10/26/17 20:41 Gram Stain - Preliminary Ankle - Right Wound Culture - Preliminary 10/25/17 18:17 Blood Culture Gram Stain - Preliminary Blood Blood Culture - Preliminary Coagulase Negative Staph 10/25/17 18:17 Blood Culture - Final Blood Laboratory Results WBC 10.4 k/uL (3.8-10.6) 10/27/17 05:21 RBC 3.18 m/uL (3.80-5.40) L 10/27/17 05:21 Hgb 8.1 gm/dL (11.4-16.0) L 10/27/17 05:21 Hct 27.0 % (34.0-46.0) L 10/27/17 05:21 MCV 85.0 fL (80.0-100.0) 10/27/17 05:21 MCH 25.5 pg (25.0-35.0) 10/27/17 05:21 MCHC 30.0 g/dL (31.0-37.0) L 10/27/17 05:21 RDW 16.1 % (11.5-15.5) H 10/27/17 05:21 Plt Count 152 k/uL (150-450) 10/27/17 05:21 Neutrophils % 73 % 10/26/17 00:39 Lymphocytes % 11 % 10/26/17 00:39 Monocytes % 6 % 10/26/17 00:39 Eosinophils % 9 % 10/26/17 00:39 Basophils % 0 % 10/26/17 00:39 Neutrophils # 5.2 k/uL (1.3-7.7) 10/26/17 00:39 Lymphocytes # 0.8 k/uL (1.0-4.8) L 08 00:39 Monocytes # 0.4 k/uL (0-1.0) 08 00:39 Eosinophils # 0.6 k/uL (0-0.7) 10/26/17 00:39 Basophils # 0.0 k/uL (0-0.2) 10/26/17 00:39 Hypochromasia Marked 10/27/17 05:21 Anisocytosis Slight 10/27/17 05:21 PT 10.0 sec (9.0-12.0) 10/25/17 13:20 INR 1.0 (<1.2) 10/25/17 13:20 APTT 53.6 sec (22.0-30.0) H 10/27/17 05:21 D-Dimer 1.80 mg/L FEU (<0.60) H 10/25/17 13:20 Sodium 145 mmol/L (137-145) 10/27/17 05:21 Potassium 4.8 mmol/L (3.5-5.1) 10/27/17 05:21 Chloride 116 mmol/L (98-107) H 10/27/17 05:21 Carbon Dioxide 21 mmol/L (22-30) L 10/27/17 05:21 Anion Gap 8 mmol/L 10/27/17 05:21 BUN 68 mg/dL (7-17) H 10/27/17 05:21 Creatinine 3.02 mg/dL (0.52-1.04) H 10/27/17 05:21 Est GFR (CKD-EPI)AfAm 18 (>60 ml/min/1.73 sqM) 10/27/17 05:21 Est GFR (CKD-EPI)NonAf 16 (>60 ml/min/1.73 sqM) 10/27/17 05:21 Glucose 95 mg/dL (74-99) 10/27/17 05:21 POC Glucose (mg/dL) 123 mg/dL (75-99) H 10/27/17 11:23 POC Glu Cooler Man ID Marilin Mckeon 10/27/17 11:23 Calcium 8.2 mg/dL (8.4-10.2) L 10/27/17 05:21 Magnesium 2.0 mg/dL (1.6-2.3) 10/25/17 13:20 Total Bilirubin 0.2 mg/dL (0.2-1.3) 10/25/17 13:20 AST 17 U/L (14-36) 10/25/17 13:20 ALT 29 U/L (9-52) 10/25/17 13:20 Alkaline Phosphatase 57 U/L (38-126) 10/25/17 13:20 Total Creatine Kinase 44 U/L (30-135) 10/25/17 13:20 CK-MB (CK-2) 1.1 ng/mL (0.0-2.4) 10/25/17 13:20 CK-MB (CK-2) Rel Index 2.5 10/25/17 13:20 Troponin I <0.012 ng/mL (0.000-0.034) 10/26/17 05:40 NT-Pro-B Natriuret Pep 3960 pg/mL 10/25/17 13:20 Total Protein 5.9 g/dL (6.3-8.2) L 10/25/17 13:20 Albumin 2.8 g/dL (3.5-5.0) L 10/25/17 13:20 Blood Type B Positive 10/26/17 18:58 Blood Type Recheck No 10/26/17 18:58 Antibody Screen NEGATIVE 10/26/17 18:58 Crossmatch See Detail 10/26/17 18:58 Spec Expiration Date 10/29/2017 10/26/17 18:58 Microbiology 10/26/17 20:41 Ankle - Right Gram Stain - Preliminary 10/26/17 20:41 Ankle - Right Wound Culture - Preliminary 10/25/17 18:17 Blood Blood Culture Gram Stain - Preliminary 10/25/17 18:17 Blood Blood Culture - Preliminary Coagulase Negative Staph 10/25/17 18:17 Blood Blood Culture - Final Assessment and Plan (1) Diabetes mellitus type 2, uncontrolled, with complications Current Visit: No Status: Acute Code(s): E11.8 - TYPE 2 DIABETES MELLITUS WITH UNSPECIFIED COMPLICATIONS; E11.65 - TYPE 2 DIABETES MELLITUS WITH HYPERGLYCEMIA SNOMED Code(s): 524605756 (2) Diabetic ulcer of heel Narrative/Plan: 66-year-old woman who has superobesity presented to Hospital from the extended care facility with increasing shortness of breath. If the admission there is evidence of fluid overload and worsening of her chronic diastolic congestive heart failure. It is noted that she has developed a right pleural effusion and has been seen by pulmonary medicine. Goal will be for further diuresis before any attempt of a thoracentesis. She this point and was more comfortable than admission, appears her chest pain has improved. Physical chronic ulcerations the left heel and a total contact cast is in place. This is removed tomorrow. The ulceration to the right heel has the Opticel silver in place which is adequate and can be changed every other day. She does have a chronic anemia that has worsened over the last year. This may be worsening her heart failure and will be further evaluated at this time. She is being treated for this significant infection to heal with intravenous vancomycin at the [facility]. Vancomycin will continue also had and Rocephin now based on prior culture results. Patient is a blood culture drawn it appears to be contamination would need no further ulceration of treatment unless there are further positive blood cultures. Given that she does not have fevers or chills it is not likely that she has a line sepsis. Current Visit: No Status: Acute Code(s): E11.621 - TYPE 2 DIABETES MELLITUS WITH FOOT ULCER; L97.409 - NON-PRS CHRONIC ULCER OF UNSP HEEL AND MIDFOOT W UNSP SEVERT SNOMED Code(s): 10069420 (3) Severe obesity (BMI >= 40) Current Visit: No Status: Acute Code(s): E66.01 - MORBID (SEVERE) OBESITY DUE TO EXCESS CALORIES SNOMED Code(s): 340817762
[2017-10-27 16:41] LABS: Glucose,Whole Blood 101 mg/dL (75-99)
[2017-10-27] MEDS: cefTRIAXone IN SWFI 1,000 MG/10 ML SYRINGE IVP SCH (17:34)
--- NOTE | 2017-10-27 20:05 | PN ---
PROGRESS NOTE This patient was admitted for respiratory distress and congestive cardiac failure. The patient also has a evidence of acute on chronic renal failure. The patient remains comfortable, sitting in the bed at 45 degrees. Patient VQ scan could not be performed yesterday because patient could not lie flat. Blood pressure is 117/57 mmHg. First and second heart sounds are normal. Lungs examination reveals bilateral diminished air entry. The ultrasound of the chest shows evidence of moderate to large degree of pleural effusion. Pulmonary consultation is obtained for possible thoracentesis. At present, we will continue the patient on IV Lasix. Nephrology is also consulted. After the thoracentesis, the patient can be started on oral anticoagulant. MMODL / IJN: [id number] /
[2017-10-27] MEDS: ATORVASTATIN 10 MG TAB PO SCH (20:56)
[2017-10-27 20:57] LABS: Glucose,Whole Blood 102 mg/dL (75-99)
[2017-10-27] MEDS: FUROSEMIDE 10 MG/ML 10 ML VIAL IV SCH (20:58)
[2017-10-27] MEDS: FUROSEMIDE 10 MG/ML 4 ML VIAL IV SCH (21:41)
[2017-10-28] MEDS: HEPARIN SOD,PORK IN 0.45% NACL 25,000 UNIT in 0.45% NACL 1 500ML.BAG IV SCH ×2 (02:21→16:30)
[2017-10-28 02:47] LABS: Appearance,Urine Cloudy (Clear); Bacteria,Urine Few /hpf; Bilirubin,Urine Negative (Negative); Blood,Urine Moderate (Negative); Budding Yeast,Urine Rare /hpf; Color,Urine Light Yellow; Glucose,Urine (UA) Negative (Negative); Ketones,Urine Negative (Negative); Leukocyte Esterase,Urine Large (Negative); Nitrite,Urine Negative (Negative); PH, Urine 5.5 (5.0-8.0); Protein,Urine 2+ (Negative); RBC,Urine 6 /hpf (0-5); Specific Gravity,Urine 1.008 (1.001-1.035); Squamous Epithelial Cell,Urine 1 /hpf (0-4); Urobilinogen,Urine <2.0 mg/dL (<2.0); WBC,Urine 32 /hpf (0-5)
[2017-10-28 05:26] LABS: Glucose,Whole Blood 107 mg/dL (75-99)
[2017-10-28 06:15] LABS: Reticulocyte % 2.6 % (0.5-2.0)
[2017-10-28] MEDS: PANTOPRAZOLE 40 MG TABLET PO SCH (07:04)
[2017-10-28 07:18] LABS: C Reactive Protein 14.6 mg/L (<10.0); Calcium 8.6 mg/dL (8.4-10.2)
[2017-10-28] MEDS: INSULIN DETEMIR 100 UNIT/ML 10 ML VIAL SQ SCH (08:12)
[2017-10-28] MEDS: hydrALAZINE HCL 25 MG TAB PO SCH ×3 (08:12→20:32)
[2017-10-28] MEDS: amLODIPine 10 MG TAB PO SCH (08:12)
[2017-10-28] MEDS: METOPROLOL TARTRATE 50 MG TAB PO SCH ×2 (08:13→20:32)
[2017-10-28] MEDS: NYSTATIN 100,000 UNIT/GM POWD 15 GM TOPICAL SCH ×2 (08:13→20:32)
[2017-10-28] MEDS: FUROSEMIDE 10 MG/ML 10 ML VIAL IV SCH ×2 (08:13→20:32)
[2017-10-28] MEDS: SPIRONOLACTONE 25 MG TAB PO SCH (08:14)
[2017-10-28] MEDS: cefTRIAXone IN SWFI 1,000 MG/10 ML SYRINGE IVP SCH (08:23)
[2017-10-28 10:29] LABS: Iron Saturation 45.24 (12.00-45.00)
--- NOTE | 2017-10-28 10:39 | CDI ---
Last Revision, February 2017 Documentation Clarification Form Date: 10/28/2017 10:30:00 AM From: Lauren Odonnell RN Admit Date: 10/25/2017 3:14:00 PM Patient Name: Lalitha Triplett Visit Number: [id number] ATTENTION: The Clinical Documentation Specialists (CDI) and [facility] Coding Staff appreciate your assistance in clarifying documentation. Please respond to the clarification below the line at the bottom and electronically sign. The CDI & [facility] Coding staff will review the response and follow-up if needed. Please note: Queries are made part of the Legal Health Record. If you have any questions, please contact the author of this message via ITS. Dr. Megan Patel DO, A diagnosis of anemia lacks specificity to accurately reflect your patients severity of condition and clarification is needed. Anemia is documented in the chart from 10/25 - 10/27. Pt. presented with chest pain, and sob. History/Risk Factors: DM 2, chronic lower extremity wounds, CHF, hyperlipidemia , HTN, OA, renal disease, skin disorder, CKD3, MRSA Clinical indicators: Hemoglobin on admission: 7.5 Hematocrit on admission: 24.8 Pt. states she is short of breath, 10/27 stats weakness Treatment: 1 unit of PRBCs transfused, iron, monitoring labs Monitor labs In order to capture the severity of condition, please clarify the type of anemia and etiology if known: Acute on chronic blood loss anemia Chronic blood loss anemia Iron deficiency anemia Anemia due to malignancy Unable to determine Other, please specify Please continue to document in your progress notes, under the line below,and/or in the discharge summary in order to capture severity of illness and risk of mortality. Include clinical findings that support your diagnosis. Acute on chronic blood loss anemia MTDD
--- NOTE | 2017-10-28 11:28 | P.PN ---
Subjective Progress Note Date: 10/28/17 Principal diagnosis: Worsening shortness of breath, with signs of fluid overload, and CHF with diastolic dysfunction Morbidly obese 66-year-old female patient with a BMI of 53.5 along with history of CHF/diastolic dysfunction, diabetes mellitus type 2, chronic renal failure stage III, chronic lower extremity edema/wounds, hypertension and hyperlipidemia , who was recently hospitalized from [facility] for progressive worsening shortness of breath. She also developed some chest pain at home. She was not able to give a good description of brought her chest pain. Based on all this, the patient was sent over to the hospital and the chest x-ray showed interstitial edema and development of right-sided pleural effusion. The patient is chronically failure and the patient was found to have further interval worsening of the renal function and the creatinine was up to 3.0 and the patient is also chronically anemic with hemoglobin as low as 7.0. The BNP level is 3960. 2 sets of cardiac enzymes of been negative. D-dimer is at 1.8. The patient was seen by cardiology. The patient was started on Lasix 80 mg IV push. She is also on Aldactone. The patient is producing urine output in the order of a liter and a daily basis. Echocardiogram was done and the patient was found to have a preserved LV function with an ejection fraction of 50-55%. No cervical valvular abnormalities. The ultrasound the chest was done in 7.7 pocket of pleural fluid identified in the right lung, for possible thoracentesis On 2017, patient is seen in follow-up on selective care unit. She is in moderate amount of respiratory distress, tachypneic, shallow breaths. 6 on 4 L per nasal cannula is 93%, she is afebrile, hemodynamically stable, lung sounds are diminished, with bibasilar crackles, yesterday's chest x-ray has been reviewed and showed worsening right-sided airspace disease, right-sided pleural effusion and cardiomegaly. She remains on IV diuretics at 80 mg every 12 hours. Patient is incontinent of urine, there is no accurate I&O's available. Her weight remains at 169 kg. Patient still has considerable amount of bilateral lower extremity edema. She remains on empiric antibiotics in the form of Rocephin, wound cultures on the right ankle are positive for gram- negative bacilli, and blood cultures are positive for coagulase-negative staph. Culture is negative, no sputum production. Objective - Vital Signs Vital signs: Vital Signs Temp 97.4 F L 10/28/17 08:00 Pulse 51 L 10/28/17 11:10 Resp 16 10/28/17 11:10 BP 123/58 10/28/17 11:10 Pulse Ox 93 L 10/28/17 11:10 Intake & Output 10/27/17 10/28/17 10/28/17 18:59 06:59 18:59 Intake Total 720 958.6 480 Output Total 200 Balance 720 758.6 480 Weight 169 kg Intake: Intake, IV Titration 688.6 Amount Heparin Sod,Pork in 0.45% 688.6 NaCl 25,000 unit In 0.45 % NaCl 1 500ml.bag @ 13. 344 UNITS/KG/HR 46 mls/hr IV .[id number] [facility] Rx#: [id number] Vancomycin 2,250 mg In 0 Sodium Chloride 0.9% 500 ml @ 167 mls/hr IVPB ONCE ONE Rx#:[id number] Oral 720 270 480 Output: Urine 200 Other: Voiding Method Diaper Diaper Incontinent Incontinent # Voids 3 # Bowel Movements 4 - Exam Gen. appearance, comfortable obese, nonacute distress Head exam was generally normal. There was no scleral icterus or corneal arcus. Mucous membranes were moist. Neck was supple and without jugular venous distension, thyromegaly, or carotid bruits. Carotids were easily palpable bilaterally. There was no adenopathy. Lungs sounds are diminished bilaterally especially in the right lung base along with some dullness to percussion Heart sounds are regular, positive S1-S2 and there is systolic ejection murmur grade 3/6 systolic the precordium Abdominal exam revealed normal bowel sounds. The abdomen was soft, non-tender, and without masses, organomegaly, or appreciable enlargement of the abdominal aorta. Extremities revealed 2+ pitting edema there is no cyanosis or clubbing, 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, there is also evidence of chronic venous stasis and lower extremities bilaterally. Patient is wearing a TCC boot in the left lower extremity. Neurologic OA times 3, no focal deficits - Labs CBC & Chem 7: 10/27/17 05:21 10/28/17 05:47 Labs: Abnormal Lab Results - Last 24 Hours (Table) 08/12/18 08/12/18 08/12/18 Range/Units 05:21 11:23 16:29 ESR (0-20) mm/hr Retic Count (0.5-2.0) % APTT (22.0-30.0) sec Chloride (98-107) mmol/L BUN (7-17) mg/dL Creatinine (0.52-1.04) mg/dL Glucose (74-99) mg/dL POC Glucose (mg/dL) 123 H 101 H (75-99) mg/dL Iron Saturation 45.24 H (12.00-45.00) C-Reactive Protein (<10.0) mg/L Urine Appearance (Clear) Urine Protein (Negative) Urine Blood (Negative) Ur Leukocyte Esterase (Negative) Urine RBC (0-5) /hpf Urine WBC (0-5) /hpf Urine Bacteria (None) /hpf Urine Yeast (Budding) (None) /hpf 10/27/17 10/28/17 10/28/17 Range/Units 20:56 02:27 05:21 ESR (0-20) mm/hr Retic Count (0.5-2.0) % APTT (22.0-30.0) sec Chloride (98-107) mmol/L BUN (7-17) mg/dL Creatinine (0.52-1.04) mg/dL Glucose (74-99) mg/dL POC Glucose (mg/dL) 102 H 107 H (75-99) mg/dL Iron Saturation (12.00-45.00) C-Reactive Protein (<10.0) mg/L Urine Appearance Cloudy H (Clear) Urine Protein 2+ H (Negative) Urine Blood Moderate H (Negative) Ur Leukocyte Esterase Large H (Negative) Urine RBC 6 H (0-5) /hpf Urine WBC 32 H (0-5) /hpf Urine Bacteria Few H (None) /hpf Urine Yeast (Budding) Rare H (None) /hpf 10/28/17 10/28/17 10/28/17 Range/Units 05:47 05:47 05:47 ESR 69 H (0-20) mm/hr Retic Count 2.6 H (0.5-2.0) % APTT 51.3 H (22.0-30.0) sec Chloride 115 H (98-107) mmol/L BUN 70 H (7-17) mg/dL Creatinine 3.10 H (0.52-1.04) mg/dL Glucose 103 H (74-99) mg/dL POC Glucose (mg/dL) (75-99) mg/dL Iron Saturation (12.00-45.00) C-Reactive Protein 14.6 H (<10.0) mg/L Urine Appearance (Clear) Urine Protein (Negative) Urine Blood (Negative) Ur Leukocyte Esterase (Negative) Urine RBC (0-5) /hpf Urine WBC (0-5) /hpf Urine Bacteria (None) /hpf Urine Yeast (Budding) (None) /hpf Microbiology - Last 24 Hours (Table) 10/26/17 20:41 Gram Stain - Preliminary Ankle - Right Wound Culture - Preliminary Gram Neg Bacilli Gram Neg Bacilli#2 10/26/17 17:30 Blood Culture - Preliminary Blood No Growth after 24 hours 10/25/17 18:17 Blood Culture Gram Stain - Preliminary Blood Blood Culture - Preliminary Coagulase Negative Staph Assessment and Plan Plan: 1 worsening shortness of breath with signs of fluid overload and CHF and development of the pleural effusion right more than left 2 chest pain under investigation. Pulmonary embolus in is doubtful. Cardiac enzymes are negative for now. EKGs nonrevealing 3 chronic stage III kidney failure with acute on top of chronic kidney disease interval worsening renal function 4 chronic anemia, likely secondary to renal failure 5 diabetes mellitus type 2 6 morbid obesity with a BMI of 53.5 7 chronic lower extremity edema 8 running foot ulcer 9 hypertension 10 chronic bilateral lower extremity heel ulcerations, and cultures were positive for gram-negative bacilli, final cultures pending Plan Continue IV diuretics, we'll insert a Guo catheter in view of patient's mobility, lower extremity wounds, and for monitoring accurate intake and output , daily weights. Current antibiotic coverage, place the patient on BiPAP with pressures of 10/6, and FiO2 to titrate to keep pulse ox of 90-92%. We'll continue to follow. Chest x-ray in the morning monitor labs, electrolytes, renal profile. I performed a history & physical examination of the patient and discussed their management with my nurse practitioner, Jossy Mederos. I reviewed the nurse practitioner's note and agree with the documented findings and plan of care. Lung sounds are diminished, with bibasilar crackles, and dullness at the right base. The findings and the impression was discussed with the patient. I attest to the documentation by the nurse practitioner. Time with Patient: Less than 30
[2017-10-28 11:31] LABS: Glucose,Whole Blood 120 mg/dL (75-99)
--- NOTE | 2017-10-28 11:41 | P.PN ---
Subjective Progress Note Date: 10/28/17 Principal diagnosis: CHF exacerbation patient was seen and examined. No acute events overnight. Patient continues to complain of Shortness of breath. No chest pain, cough or palpitations. She denies dysuria. She is saturating 93% on 4L NC. Objective - Vital Signs Vital signs: Vital Signs Temp 97.4 F L 10/28/17 08:00 Pulse 51 L 10/28/17 11:10 Resp 16 10/28/17 11:10 BP 123/58 10/28/17 11:10 Pulse Ox 93 L 10/28/17 11:10 Intake & Output 10/27/17 10/28/17 10/28/17 18:59 06:59 18:59 Intake Total 720 958.6 480 Output Total 200 Balance 720 758.6 480 Weight 169 kg Intake: Intake, IV Titration 688.6 Amount Heparin Sod,Pork in 0.45% 688.6 NaCl 25,000 unit In 0.45 % NaCl 1 500ml.bag @ 13. 344 UNITS/KG/HR 46 mls/hr IV .[id number] [facility] Rx#: [id number] Vancomycin 2,250 mg In 0 Sodium Chloride 0.9% 500 ml @ 167 mls/hr IVPB ONCE ONE Rx#:[id number] Oral 720 270 480 Output: Urine 200 Other: Voiding Method Diaper Diaper Incontinent Incontinent # Voids 3 # Bowel Movements 4 - Exam General: morbidly obese, no distress, appears at stated age Derm: warm, dry Head: atraumatic, normocephalic, symmetric Eyes: EOMI, no lid lag, anicteric sclera Mouth: no lip lesion, mucus membranes moist Cardiovascular: S1S2 reg, systolic murmur, positive posterior tibial pulse bilateral, Lungs: Decreased breath sounds bilaterally, no rhonchi, no rales , no accessory muscle use Abdominal: soft, nontender to palpation, no guarding, no appreciable organomegaly Ext: no gross muscle atrophy, 2+ lower extremity edema bilaterally, no contractures. Chronic venous stasis BL LE. Neuro: CN II-XI grossly intact, no focal neuro deficits Psych: Alert, oriented, appropriate affect - Labs CBC & Chem 7: 10/27/17 05:21 10/28/17 05:47 Labs: Abnormal Lab Results - Last 24 Hours (Table) 10/27/17 10/27/17 10/27/17 Range/Units 05:21 11:23 16:29 ESR (0-20) mm/hr Retic Count (0.5-2.0) % APTT (22.0-30.0) sec Chloride (98-107) mmol/L BUN (7-17) mg/dL Creatinine (0.52-1.04) mg/dL Glucose (74-99) mg/dL POC Glucose (mg/dL) 123 H 101 H (75-99) mg/dL Iron Saturation 45.24 H (12.00-45.00) C-Reactive Protein (<10.0) mg/L Urine Appearance (Clear) Urine Protein (Negative) Urine Blood (Negative) Ur Leukocyte Esterase (Negative) Urine RBC (0-5) /hpf Urine WBC (0-5) /hpf Urine Bacteria (None) /hpf Urine Yeast (Budding) (None) /hpf 10/27/17 10/28/17 10/28/17 Range/Units 20:56 02:27 05:21 ESR (0-20) mm/hr Retic Count (0.5-2.0) % APTT (22.0-30.0) sec Chloride (98-107) mmol/L BUN (7-17) mg/dL Creatinine (0.52-1.04) mg/dL Glucose (74-99) mg/dL POC Glucose (mg/dL) 102 H 107 H (75-99) mg/dL Iron Saturation (12.00-45.00) C-Reactive Protein (<10.0) mg/L Urine Appearance Cloudy H (Clear) Urine Protein 2+ H (Negative) Urine Blood Moderate H (Negative) Ur Leukocyte Esterase Large H (Negative) Urine RBC 6 H (0-5) /hpf Urine WBC 32 H (0-5) /hpf Urine Bacteria Few H (None) /hpf Urine Yeast (Budding) Rare H (None) /hpf 10/28/17 10/28/17 10/28/17 Range/Units 05:47 05:47 05:47 ESR 69 H (0-20) mm/hr Retic Count 2.6 H (0.5-2.0) % APTT 51.3 H (22.0-30.0) sec Chloride 115 H (98-107) mmol/L BUN 70 H (7-17) mg/dL Creatinine 3.10 H (0.52-1.04) mg/dL Glucose 103 H (74-99) mg/dL POC Glucose (mg/dL) (75-99) mg/dL Iron Saturation (12.00-45.00) C-Reactive Protein 14.6 H (<10.0) mg/L Urine Appearance (Clear) Urine Protein (Negative) Urine Blood (Negative) Ur Leukocyte Esterase (Negative) Urine RBC (0-5) /hpf Urine WBC (0-5) /hpf Urine Bacteria (None) /hpf Urine Yeast (Budding) (None) /hpf Microbiology - Last 24 Hours (Table) 10/26/17 20:41 Gram Stain - Preliminary Ankle - Right Wound Culture - Preliminary Gram Neg Bacilli Gram Neg Bacilli#2 10/26/17 17:30 Blood Culture - Preliminary Blood No Growth after 24 hours 10/25/17 18:17 Blood Culture Gram Stain - Preliminary Blood Blood Culture - Preliminary Coagulase Negative Staph Assessment and Plan Assessment: Assessment 66-year-old female with past medical history of heart failure, CKG, diabetes, hypertension, hyperlipidemia presents the ED for chest pain and shortness of breath. She is admitted to rule out PE and for diuresing. Plan 1. Dyspnea: Likely CHF exacerbation with component from anemia. 2. Anemia: Likely due to CHF and CKD. Hg 8.1 Hc 27.0 MCV 85.0. s/p 1 unit PRBC. Watch as patient is on Heparin drip. Add Aranesp as per Nephro. Retic count elevated. FU Iron studies, CBC 3. Bacteremia: BCx 8/10 + Coagulase negative Staph. DC Vancomycin IV yesterday as per ID request. No fever or leukocytosis. Repeat BCx prelim negative. FU BCx repeat. 4. CHF exacerbation: Echo shows EF 50-55%. Continue Lasix 80 mg IV BID. Continue Aldactone 25 mg PO QD, Metoprolol 50 mg PO BID, Losartan 25 mg PO QD. CXR shows worsening R pleural effusion, likely related to CHF. Monitor Ins and Outs. Daily weights. K > 4 Mg > 2. FU Cardiology and Pulmonology for possible thoracentesis. 5. Chest pain: Likely due to CHF exacerbation complicated with anemia. Trop < 0.012 x 2, EKG shows NSR. Elevated D-dimer, high risk for PE. V/Q scan attempted twice, patient unable to tolerate. Continue Heparin drip for now. Will discus with Pulm the need for V/Q or CTA (unable due to CKD). 6. JOHN on CKD. Cr 3.12. Worsening. Monitor and replace electrolytes. Avoid nephrotoxins. FU Nephrology 7. Bacteruria: Asymptomatic. Large LE on UA. Monitor. 8. DM: POC glucose 107. A1c 5.4. Continue Levamir 44 units QD. Diabetic diet. Hypoglycemic precautions. 9. HTN: BP 123/58. Continue Amlodipine 10 mg PO QD, Hydralazine 25 mg PO BID + 75 mg PO QD, Losartan 25 mg PO QD, Metoprolol 50 mg PO BID. Continue to monitor vitals, adjust medications as necessary. 10. ASCVD risk: Continue ASA 81 mg PO QD, Lipitor 10 mg PO QHS. Patient continues to be dyspneic. We will continue IV diuresis and request thoracocentesis from pulmonology or IR if there is no improvement. V/Q scan has been attempted twice without success as patient is unable to lay flat. Patient is pending clinical improvement.
[2017-10-28] MEDS ORDERED: ONDANSETRON 8 MG in SODIUM CHLORIDE 0.9% 50 ML IVPB ONE (12:16)
--- NOTE | 2017-10-28 13:13 | P.PN ---
Subjective patient is seen in follow-up for acute kidney injury on chronic kidney disease. Patient has chronic kidney disease stage III with baseline creatinine in the range of 1.8-2.3 secondary to diabetic kidney disease. Creatinine today is up to 3.1. She is maintained on Lasix 80 mg IV twice daily. She is still quite dyspneic. She will be put on a BiPAP today. She is nonoliguric. Oral intake is poor. Vital signs are stable. General: The patient appeared well nourished and normally developed. HEENT: Head exam is unremarkable. Neck is without jugular venous distension. LUNGS: Lungs are clear to auscultation and percussion. Breath sounds decreased. HEART: Rate and Rhythm are regular. First and second heart sounds normal. No murmurs, rubs or gallops. ABDOMEN: Abdominal exam reveals normal bowel sounds. Non-tender and non- distended. No evidence of peritonitis. EXTREMITITES: No clubbing, cyanosis, or edema. 1+ edema. Objective - Vital Signs Vital signs: Vital Signs Temp 97.4 F L 10/28/17 08:00 Pulse 51 L 10/28/17 11:10 Resp 16 10/28/17 11:10 BP 123/58 10/28/17 11:10 Pulse Ox 93 L 10/28/17 11:10 Intake & Output 10/27/17 10/28/17 10/28/17 18:59 06:59 18:59 Intake Total 720 958.6 480 Output Total 200 Balance 720 758.6 480 Weight 169 kg Intake: Intake, IV Titration 688.6 Amount Heparin Sod,Pork in 0.45% 688.6 NaCl 25,000 unit In 0.45 % NaCl 1 500ml.bag @ 13. 344 UNITS/KG/HR 46 mls/hr IV .[id number] [facility] Rx#: [id number] Vancomycin 2,250 mg In 0 Sodium Chloride 0.9% 500 ml @ 167 mls/hr IVPB ONCE ONE Rx#:[id number] Oral 720 270 480 Output: Urine 200 Other: Voiding Method Diaper Diaper Incontinent Incontinent # Voids 3 # Bowel Movements 4 - Labs CBC & Chem 7: 10/27/17 05:21 10/28/17 05:47 Labs: Abnormal Lab Results - Last 24 Hours (Table) 10/27/17 10/27/1710/27/18 Range/Units 05:21 16:29 20:56 ESR (0-20) mm/hr Retic Count (0.5-2.0) % APTT (22.0-30.0) sec Chloride (98-107) mmol/L BUN (7-17) mg/dL Creatinine (0.52-1.04) mg/dL Glucose (74-99) mg/dL POC Glucose (mg/dL) 101 H 102 H (75-99) mg/dL Iron Saturation 45.24 H (12.00-45.00) C-Reactive Protein (<10.0) mg/L Urine Appearance (Clear) Urine Protein (Negative) Urine Blood (Negative) Ur Leukocyte Esterase (Negative) Urine RBC (0-5) /hpf Urine WBC (0-5) /hpf Urine Bacteria (None) /hpf Urine Yeast (Budding) (None) /hpf 10/28/17 10/28/17 10/28/17 Range/Units 02:27 05:21 05:47 ESR (0-20) mm/hr Retic Count (0.5-2.0) % APTT 51.3 H (22.0-30.0) sec Chloride (98-107) mmol/L BUN (7-17) mg/dL Creatinine (0.52-1.04) mg/dL Glucose (74-99) mg/dL POC Glucose (mg/dL) 107 H (75-99) mg/dL Iron Saturation (12.00-45.00) C-Reactive Protein (<10.0) mg/L Urine Appearance Cloudy H (Clear) Urine Protein 2+ H (Negative) Urine Blood Moderate H (Negative) Ur Leukocyte Esterase Large H (Negative) Urine RBC 6 H (0-5) /hpf Urine WBC 32 H (0-5) /hpf Urine Bacteria Few H (None) /hpf Urine Yeast (Budding) Rare H (None) /hpf 10/28/17 10/28/17 10/28/17 Range/Units 05:47 05:47 11:30 ESR 69 H (0-20) mm/hr Retic Count 2.6 H (0.5-2.0) % APTT (22.0-30.0) sec Chloride 115 H (98-107) mmol/L BUN 70 H (7-17) mg/dL Creatinine 3.10 H (0.52-1.04) mg/dL Glucose 103 H (74-99) mg/dL POC Glucose (mg/dL) 120 H (75-99) mg/dL Iron Saturation (12.00-45.00) C-Reactive Protein 14.6 H (<10.0) mg/L Urine Appearance (Clear) Urine Protein (Negative) Urine Blood (Negative) Ur Leukocyte Esterase (Negative) Urine RBC (0-5) /hpf Urine WBC (0-5) /hpf Urine Bacteria (None) /hpf Urine Yeast (Budding) (None) /hpf Microbiology - Last 24 Hours (Table) 10/25/17 18:17 Blood Culture Gram Stain - Preliminary Blood Blood Culture - Preliminary Coagulase Negative Staph 10/28/17 02:27 Urine Culture - Preliminary Urine,Voided 10/26/17 20:41 Gram Stain - Preliminary Ankle - Right Wound Culture - Preliminary Gram Neg Bacilli Gram Neg Bacilli#2 10/26/17 17:30 Blood Culture - Preliminary Blood No Growth after 24 hours Assessment and Plan Plan: Assessment: 1. Nonoliguric acute kidney injury secondary to ATN secondary to cardiorenal syndrome. Creatinine up at 3.1 today. Ultrasound from April 2017 was benign. 2. Volume overload. 3. Diastolic CHF with mild pulmonary hypertension. 4. Anemia. iron replete. Component of chronic kidney disease. 5. Insulin-dependent diabetes mellitus. 6. Coag-negative staph bacteremia. Possible contamination. 7. Metabolic acidosis secondary to acute kidney injury. 8. Chest pain. Cardiology following. Currently maintained on heparin drip. 9. Hypertension with chronic kidney disease. Controlled. 10. Chronic kidney disease stage III with baseline creatinine in the range of 1.8-2.3. Etiology is diabetic kidney disease and cardiorenal syndrome. 11. Proteinuria. Likely due to diabetic kidney disease. Plan: Continue Lasix 80 mg IV twice daily. Maintain Aranesp. Avoid nephrotoxic agents and hypotensive episodes. Repeat electrolytes in the morning. Check serologies.
[2017-10-28 13:36] LABS: Anisocytosis Slight; HCT 26.5 % (34.0-46.0); HGB 8.1 gm/dL (11.4-16.0); Hypochromasia Marked; MCH 26.2 pg (25.0-35.0); MCHC 30.6 g/dL (31.0-37.0); MCV 85.5 fL (80.0-100.0); Mean Platelet Volume 9.4; Platelet Count 129 k/uL (150-450); WBC 10.5 k/uL (3.8-10.6)
--- NOTE | 2017-10-28 14:30 | PN ---
PROGRESS NOTE This patient is admitted with acute respiratory failure. Patient is doing fairly well. She is lying comfortably in semi-upright position. Denies any cough with expectoration. The patient's blood pressure is 123/58 mmHg. Heart: S1 and S2 normal. Lungs reveal bilateral diminished air entry. We will get a followup of chest x-ray. Patient's overall long-term prognosis is guarded. MMODL / IJN: [id number] /
[2017-10-28 17:06] LABS: Glucose,Whole Blood 118 mg/dL (75-99)
[2017-10-28] MEDS: ASPIRIN 81 MG PO SCH (17:47)
[2017-10-28] MEDS: ATORVASTATIN 10 MG TAB PO SCH (20:31)
[2017-10-28 20:56] LABS: Hepatitis A Antibody IgM Non-Reactive (Non-Reactive); Hepatitis B Core IgM Non-Reactive (Non-Reactive)
[2017-10-28 21:10] LABS: Glucose,Whole Blood 104 mg/dL (75-99)
--- NOTE | 2017-10-28 21:56 | P.PN ---
Subjective Progress Note Date: 10/28/17 66 year old woman with superobesity presents to the ER with marked increase of shortness of breath, with some chest pain also occurring. At admission there was evidence of worsening of her chronic renal failure and significant volume overload, with some diuresis she is already receiving relief from her extensive shortness of breath. At this time she is not complaining of any chest pain. She was found and she has been seen by pulmonary critical care, and there is a possibility of a thoracentesis future. At this time she denies other acute new complaints. A total contact cast is in place on the left leg for the pressure ulcer to the left heel is negative for any difficulties at all. The chronic ulcerations of the right heel is also without pain. She is aware of improved urinary output since being on the higher doses of Lasix. As noted she has a history of significant underlying coronary artery disease with a history of congestive heart failure with known diastolic dysfunction. She is feeling slightly better at this time but certainly not nearly her baseline. She does have significant debility. 10/28/2017 the patient has declined further today. She is requiring BiPAP for oxygen saturation, she is somewhat confused but does seem to be comfortable. She is unable to complain of any new symptoms Objective - Vital Signs Vital signs: Vital Signs Temp 97.3 F L 10/28/17 20:00 Pulse 55 L 10/28/17 20:00 Resp 18 10/28/17 20:00 BP 136/63 10/28/17 20:00 Pulse Ox 93 L 10/28/17 20:00 Intake & Output 10/28/17 10/28/17 10/29/17 06:59 18:59 06:59 Intake Total 958.6 970 Output Total 200 700 Balance 758.6 270 Weight 169 kg Intake: IV 440 Heparin Sod,Pork in 0.45% 440 NaCl 25,000 unit In 0.45 % NaCl 1 500ml.bag @ 13. 344 UNITS/KG/HR 46 mls/hr IV .[id number] [facility] Rx#: [id number] Intake, IV Titration 688.6 50 Amount Heparin Sod,Pork in 0.45% 688.6 NaCl 25,000 unit In 0.45 % NaCl 1 500ml.bag @ 13. 344 UNITS/KG/HR 46 mls/hr IV .[id number] [facility] Rx#: [id number] Ondansetron 8 mg In 50 Sodium Chloride 0.9% 50 ml @ 100 mls/hr IVPB ONCE ONE Rx#:[id number] Vancomycin 2,250 mg In 0 Sodium Chloride 0.9% 500 ml @ 167 mls/hr IVPB ONCE ONE Rx#:[id number] Oral 270 480 Output: Urine 200 700 Other: Voiding Method Diaper Diaper Incontinent Incontinent - Exam 66-year-old woman with superobesity is mostly comfortable in her respiratory distress remains problematic requiring BiPAP that she does self remove Head exam was generally normal. There was no scleral icterus or corneal arcus. Mucous membranes were moist. Neck was supple and without jugular venous distension, thyromegaly, or carotid bruits. Carotids were easily palpable bilaterally. There was no adenopathy. Lungs sounds are diminished bilaterally especially in the right lung base along with some dullness to percussion Heart sounds are regular, positive S1-S2 and there is systolic ejection murmur grade 3/6 systolic the precordium Abdominal exam revealed normal bowel sounds. The abdomen was soft, non-tender, and without masses, organomegaly, or appreciable enlargement of the abdominal aorta. Extremities revealed +1-2 pitting edema there is no cyanosis or clubbing, 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, there is also evidence of chronic venous stasis and lower extremities bilaterally. Left heel measures at 2.4 x 3.5 x 0.2 cm right heel ulceration measuring at 2 x 2 x 0.2 total contact cast was removed by the wound team today. Neurologic alert oriented to person and is much more confused today than she's been, there is evidence of some ongoing difficulties with oxygen saturation especially since she self remove her BiPAP that the nurses reapply - Labs CBC & Chem 7: 10/28/17 11:17 10/28/17 05:47 Labs: Abnormal Lab Results - Last 24 Hours (Table) 10/27/17 10/28/17 10/28/17 Range/Units 05:21 02:27 05:21 RBC (3.80-5.40) m/uL Hgb (11.4-16.0) gm/dL Hct (34.0-46.0) % MCHC (31.0-37.0) g/dL RDW (11.5-15.5) % Plt Count (150-450) k/uL ESR (0-20) mm/hr Retic Count (0.5-2.0) % APTT (22.0-30.0) sec Chloride (98-107) mmol/L BUN (7-17) mg/dL Creatinine (0.52-1.04) mg/dL Glucose (74-99) mg/dL POC Glucose (mg/dL) 107 H (75-99) mg/dL Iron Saturation 45.24 H (12.00-45.00) C-Reactive Protein (<10.0) mg/L Urine Appearance Cloudy H (Clear) Urine Protein 2+ H (Negative) Urine Blood Moderate H (Negative) Ur Leukocyte Esterase Large H (Negative) Urine RBC 6 H (0-5) /hpf Urine WBC 32 H (0-5) /hpf Urine Bacteria Few H (None) /hpf Urine Yeast (Budding) Rare H (None) /hpf 10/28/17 10/28/17 10/28/17 Range/Units 05:47 05:47 05:47 RBC (3.80-5.40) m/uL Hgb (11.4-16.0) gm/dL Hct (34.0-46.0) % MCHC (31.0-37.0) g/dL RDW (11.5-15.5) % Plt Count (150-450) k/uL ESR 69 H (0-20) mm/hr Retic Count 2.6 H (0.5-2.0) % APTT 51.3 H (22.0-30.0) sec Chloride 115 H (98-107) mmol/L BUN 70 H (7-17) mg/dL Creatinine 3.10 H (0.52-1.04) mg/dL Glucose 103 H (74-99) mg/dL POC Glucose (mg/dL) (75-99) mg/dL Iron Saturation (12.00-45.00) C-Reactive Protein 14.6 H (<10.0) mg/L Urine Appearance (Clear) Urine Protein (Negative) Urine Blood (Negative) Ur Leukocyte Esterase (Negative) Urine RBC (0-5) /hpf Urine WBC (0-5) /hpf Urine Bacteria (None) /hpf Urine Yeast (Budding) (None) /hpf 10/28/17 10/28/17 10/28/17 Range/Units 11:17 11:30 17:05 RBC 3.10 L (3.80-5.40) m/uL Hgb 8.1 L (11.4-16.0) gm/dL Hct 26.5 L (34.0-46.0) % MCHC 30.6 L (31.0-37.0) g/dL RDW 16.0 H (11.5-15.5) % Plt Count 129 L (150-450) k/uL ESR (0-20) mm/hr Retic Count (0.5-2.0) % APTT (22.0-30.0) sec Chloride (98-107) mmol/L BUN (7-17) mg/dL Creatinine (0.52-1.04) mg/dL Glucose (74-99) mg/dL POC Glucose (mg/dL) 120 H 118 H (75-99) mg/dL Iron Saturation (12.00-45.00) C-Reactive Protein (<10.0) mg/L Urine Appearance (Clear) Urine Protein (Negative) Urine Blood (Negative) Ur Leukocyte Esterase (Negative) Urine RBC (0-5) /hpf Urine WBC (0-5) /hpf Urine Bacteria (None) /hpf Urine Yeast (Budding) (None) /hpf 10/28/17 Range/Units 20:38 RBC (3.80-5.40) m/uL Hgb (11.4-16.0) gm/dL Hct (34.0-46.0) % MCHC (31.0-37.0) g/dL RDW (11.5-15.5) % Plt Count (150-450) k/uL ESR (0-20) mm/hr Retic Count (0.5-2.0) % APTT (22.0-30.0) sec Chloride (98-107) mmol/L BUN (7-17) mg/dL Creatinine (0.52-1.04) mg/dL Glucose (74-99) mg/dL POC Glucose (mg/dL) 104 H (75-99) mg/dL Iron Saturation (12.00-45.00) C-Reactive Protein (<10.0) mg/L Urine Appearance (Clear) Urine Protein (Negative) Urine Blood (Negative) Ur Leukocyte Esterase (Negative) Urine RBC (0-5) /hpf Urine WBC (0-5) /hpf Urine Bacteria (None) /hpf Urine Yeast (Budding) (None) /hpf Microbiology - Last 24 Hours (Table) 10/26/17 17:30 Blood Culture - Preliminary Blood No Growth after 48 hours 10/25/17 18:17 Blood Culture Gram Stain - Preliminary Blood Blood Culture - Preliminary Coagulase Negative Staph 10/28/17 02:27 Urine Culture - Preliminary Urine,Voided 10/26/17 20:41 Gram Stain - Preliminary Ankle - Right Wound Culture - Preliminary Gram Neg Bacilli Gram Neg Bacilli#2 Laboratory Results WBC 10.5 k/uL (3.8-10.6) 10/28/17 11:17 RBC 3.10 m/uL (3.80-5.40) L 10/28/17 11:17 Hgb 8.1 gm/dL (11.4-16.0) L 10/28/17 11:17 Hct 26.5 % (34.0-46.0) L 10/28/17 11:17 MCV 85.5 fL (80.0-100.0) 10/28/17 11:17 MCH 26.2 pg (25.0-35.0) 10/28/17 11:17 MCHC 30.6 g/dL (31.0-37.0) L 10/28/17 11:17 RDW 16.0 % (11.5-15.5) H 10/28/17 11:17 Plt Count 129 k/uL (150-450) L 10/28/17 11:17 Neutrophils % 73 % 10/26/17 00:39 Lymphocytes % 11 % 10/26/17 00:39 Monocytes % 6 % 10/26/17 00:39 Eosinophils % 9 % 10/26/17 00:39 Basophils % 0 % 10/26/17 00:39 Neutrophils # 5.2 k/uL (1.3-7.7) 10/26/17 00:39 Lymphocytes # 0.8 k/uL (1.0-4.8) L 10/26/17 00:39 Monocytes # 0.4 k/uL (0-1.0) 10/26/17 00:39 Eosinophils # 0.6 k/uL (0-0.7) 10/26/17 00:39 Basophils # 0.0 k/uL (0-0.2) 10/26/17 00:39 Hypochromasia Marked 10/28/17 11:17 Anisocytosis Slight 10/28/17 11:17 ESR 69 mm/hr (0-20) H 10/28/17 05:47 Retic Count 2.6 % (0.5-2.0) H 10/28/17 05:47 PT 10.0 sec (9.0-12.0) 10/25/17 13:20 INR 1.0 (<1.2) 10/25/17 13:20 APTT 51.3 sec (22.0-30.0) H 10/28/17 05:47 D-Dimer 1.80 mg/L FEU (<0.60) H 10/25/17 13:20 Sodium 143 mmol/L (137-145) 10/28/17 05:47 Potassium 5.0 mmol/L (3.5-5.1) 10/28/17 05:47 Chloride 115 mmol/L (98-107) H 10/28/17 05:47 Carbon Dioxide 22 mmol/L (22-30) 10/28/17 05:47 Anion Gap 6 mmol/L 10/28/17 05:47 BUN 70 mg/dL (7-17) H 10/28/17 05:47 Creatinine 3.10 mg/dL (0.52-1.04) H 10/28/17 05:47 Est GFR (CKD-EPI)AfAm 18 (>60 ml/min/1.73 sqM) 10/28/17 05:47 Est GFR (CKD-EPI)NonAf 15 (>60 ml/min/1.73 sqM) 10/28/17 05:47 Glucose 103 mg/dL (74-99) H 10/28/17 05:47 POC Glucose (mg/dL) 104 mg/dL (75-99) H 10/28/17 20:38 POC Glu Manufacturing Lab Technician ID Tatum, Madalyn, Renuy 10/28/17 20:38 Calcium 8.6 mg/dL (8.4-10.2) 10/28/17 05:47 Magnesium 2.0 mg/dL (1.6-2.3) 10/28/17 05:47 Iron 114 ug/dL (50-170) 10/27/17 05:21 TIBC 252 ug/dL (228-460) 10/27/17 05:21 Iron Saturation 45.24 (12.00-45.00) H 10/27/17 05:21 Ferritin 64.7 ng/mL (10.0-291.0) 10/27/17 05:21 Total Bilirubin 0.2 mg/dL (0.2-1.3) 10/25/17 13:20 AST 17 U/L (14-36) 10/25/17 13:20 ALT 29 U/L (9-52) 10/25/17 13:20 Alkaline Phosphatase 57 U/L (38-126) 10/25/17 13:20 Total Creatine Kinase 44 U/L (30-135) 10/25/17 13:20 CK-MB (CK-2) 1.1 ng/mL (0.0-2.4) 10/25/17 13:20 CK-MB (CK-2) Rel Index 2.5 10/25/17 13:20 Troponin I <0.012 ng/mL (0.000-0.034) 10/26/17 05:40 C-Reactive Protein 14.6 mg/L (<10.0) H 10/28/17 05:47 NT-Pro-B Natriuret Pep 3960 pg/mL 10/25/17 13:20 Total Protein 5.9 g/dL (6.3-8.2) L 10/25/17 13:20 Albumin 2.8 g/dL (3.5-5.0) L 10/25/17 13:20 Urine Color Light Yellow 10/28/17 02:27 Urine Appearance Cloudy (Clear) H 10/28/17 02:27 Urine pH 5.5 (5.0-8.0) 10/28/17 02:27 Ur Specific Bradford 1.008 (1.001-1.035) 10/28/17 02:27 Urine Protein 2+ (Negative) H 10/28/17 02:27 Urine Glucose (UA) Negative (Negative) 10/28/17 02:27 Urine Ketones Negative (Negative) 10/28/17 02:27 Urine Blood Moderate (Negative) H 10/28/17 02:27 Urine Nitrite Negative (Negative) 10/28/17 02:27 Urine Bilirubin Negative (Negative) 10/28/17 02:27 Urine Urobilinogen <2.0 mg/dL (<2.0) 10/28/17 02:27 Ur Leukocyte Esterase Large (Negative) H 10/28/17 02:27 Urine RBC 6 /hpf (0-5) H 10/28/17 02:27 Urine WBC 32 /hpf (0-5) H 10/28/17 02:27 Ur Squamous Epith Cells 1 /hpf (0-4) 10/28/17 02:27 Urine Bacteria Few /hpf (None) H 10/28/17 02:27 Urine Yeast (Budding) Rare /hpf (None) H 10/28/17 02:27 Blood Type B Positive 10/26/17 18:58 Blood Type Recheck No 10/26/17 18:58 Antibody Screen NEGATIVE 10/26/17 18:58 Crossmatch See Detail 10/26/17 18:58 Spec Expiration Date 10/29/2017 10/26/17 18:58 Microbiology 10/26/17 17:30 Blood Blood Culture - Preliminary No Growth after 48 hours 10/25/17 18:17 Blood Blood Culture Gram Stain - Preliminary 10/25/17 18:17 Blood Blood Culture - Preliminary Coagulase Negative Staph 10/28/17 02:27 Urine,Voided Urine Culture - Preliminary 10/26/17 20:41 Ankle - Right Gram Stain - Preliminary 10/26/17 20:41 Ankle - Right Wound Culture - Preliminary Gram Neg Bacilli Gram Neg Bacilli#2 10/25/17 18:17 Blood Blood Culture - Final Assessment and Plan (1) Diabetes mellitus type 2, uncontrolled, with complications Current Visit: No Status: Acute Code(s): E11.8 - TYPE 2 DIABETES MELLITUS WITH UNSPECIFIED COMPLICATIONS; E11.65 - TYPE 2 DIABETES MELLITUS WITH HYPERGLYCEMIA SNOMED Code(s): 889613531 (2) Diabetic ulcer of heel Narrative/Plan: 66-year-old woman who has superobesity presented to Hospital from the extended care facility with increasing shortness of breath. If the admission there is evidence of fluid overload and worsening of her chronic diastolic congestive heart failure. It is noted that she has developed a right pleural effusion and has been seen by pulmonary medicine. Goal will be for further diuresis before any attempt of a thoracentesis. She this point and was more comfortable than admission, appears her chest pain has improved. Physical chronic ulcerations the left heel and a total contact cast is in place. This is removed tomorrow. The ulceration to the right heel has the Opticel silver in place which is adequate and can be changed every other day. She does have a chronic anemia that has worsened over the last year. This may be worsening her heart failure and will be further evaluated at this time. She is being treated for this significant infection to heal with intravenous vancomycin at the [facility] [place]. Vancomycin will continue also had and Rocephin now based on prior culture results. Patient is a blood culture drawn it appears to be contamination would need no further ulceration of treatment unless there are further positive blood cultures. Given that she does not have fevers or chills it is not likely that she has a line sepsis. 10/28/2017 patient statuses worsened today. Her pulmonary status seems to have declined and she is requiring BiPAP for adequate oxygenation. She is more confused with her current respiratory difficulties. She however is not agitated and does not seem to be uncomfortable. BiPAP is reapplied and is being watched closely to try to keep into place. Blood culture contamination. Wound culture has gram-negative bacilli and at this time vancomycin is being continued to complete his course of therapy from the prior bony infection, Rocephin is being utilized until there is further culture data. Her prognosis is poor. Current Visit: No Status: Acute Code(s): E11.621 - TYPE 2 DIABETES MELLITUS WITH FOOT ULCER; L97.409 - NON-PRS CHRONIC ULCER OF UNSP HEEL AND MIDFOOT W UNSP SEVERT SNOMED Code(s): 33906102 (3) Severe obesity (BMI >= 40) Current Visit: No Status: Acute Code(s): E66.01 - MORBID (SEVERE) OBESITY DUE TO EXCESS CALORIES SNOMED Code(s): 436183789
[2017-10-29] MEDS: HEPARIN SOD,PORK IN 0.45% NACL 25,000 UNIT in 0.45% NACL 1 500ML.BAG IV SCH ×2 (03:51→17:46)
[2017-10-29 05:48] LABS: Glucose,Whole Blood 124 mg/dL (75-99)
[2017-10-29 06:38] LABS: Calcium 9.2 mg/dL (8.4-10.2); Magnesium 2.1 mg/dL (1.6-2.3); Potassium 5.5 mmol/L (3.5-5.1)
[2017-10-29 06:43] LABS: Vancomycin,Random 35.1 ug/mL
[2017-10-29] MEDS: PANTOPRAZOLE 40 MG TABLET PO SCH (07:05)
[2017-10-29 08:37] LABS: Creatine Kinase MB 1.5 ng/mL (0.0-2.4)
--- NOTE | 2017-10-29 08:41 | P.PN ---
Subjective Progress Note Date: 10/29/17 Principal diagnosis: CHF exacerbation, hypoxia Patient was seen and examined. Patient continues to complain of shortness of breath. Patient's condition continued to worsen yesterday, was started on BiPAP. Patient reports improvement in her breathing since being started on BiPAP. She is continuing to be diuresed on Lasix 80 IV twice a day. Her kidney function continues to worsen. She denies any dizziness, chest pain, palpitations. She has minimal urine output. Objective - Vital Signs Vital signs: Vital Signs Temp 97.4 F L 10/29/17 04:00 Pulse 53 L 10/29/17 04:00 Resp 19 10/29/17 04:00 BP 135/60 10/29/17 04:00 Pulse Ox 94 L 10/29/17 04:00 Intake & Output 10/28/17 10/29/17 10/29/17 18:59 06:59 18:59 Intake Total 1281.4 298.9 Output Total 700 150 Balance 581.4 148.9 Weight 175.4 kg Intake: IV 440 Heparin Sod,Pork in 0.45% 440 NaCl 25,000 unit In 0.45 % NaCl 1 500ml.bag @ 13. 344 UNITS/KG/HR 46 mls/hr IV .[id number] [facility] Rx#: [id number] Intake, IV Titration 361.4 98.9 Amount Heparin Sod,Pork in 0.45% 311.4 98.9 NaCl 25,000 unit In 0.45 % NaCl 1 500ml.bag @ 13. 344 UNITS/KG/HR 46 mls/hr IV .[id number] [facility] Rx#: [id number] Ondansetron 8 mg In 50 Sodium Chloride 0.9% 50 ml @ 100 mls/hr IVPB ONCE ONE Rx#:[id number] Oral 480 200 Output: Urine 700 150 Other: Voiding Method Diaper Diaper Incontinent Incontinent # Voids 1 - Exam General: morbidly obese, no distress, appears at stated age, on BiPAP Derm: warm, dry Head: atraumatic, normocephalic, symmetric Eyes: EOMI, no lid lag, anicteric sclera Mouth: no lip lesion, mucus membranes moist Cardiovascular: S1S2 reg, systolic murmur, regular rate Lungs: Decreased breath sounds bilaterally, no rhonchi, no rales , labored breathing Abdominal: soft, nontender to palpation, no guarding, no appreciable organomegaly, obese Ext: 2+ lower extremity edema bilaterally, no contractures. Chronic venous stasis BL LE. Psych: Alert, oriented, appropriate affect - Labs CBC & Chem 7: 10/28/17 11:17 10/29/17 05:28 Labs: Abnormal Lab Results - Last 24 Hours (Table) 10/27/17 10/28/17 10/28/17 Range/Units 05:21 05:47 11:17 RBC 3.10 L (3.80-5.40) m/uL Hgb 8.1 L (11.4-16.0) gm/dL Hct 26.5 L (34.0-46.0) % MCHC 30.6 L (31.0-37.0) g/dL RDW 16.0 H (11.5-15.5) % Plt Count 129 L (150-450) k/uL ESR 69 H (0-20) mm/hr APTT (22.0-30.0) sec Potassium (3.5-5.1) mmol/L Chloride (98-107) mmol/L Carbon Dioxide (22-30) mmol/L BUN (7-17) mg/dL Creatinine (0.52-1.04) mg/dL Glucose (74-99) mg/dL POC Glucose (mg/dL) (75-99) mg/dL Iron Saturation 45.24 H (12.00-45.00) 10/28/17 10/28/17 10/28/17 Range/Units 11:30 17:05 20:38 RBC (3.80-5.40) m/uL Hgb (11.4-16.0) gm/dL Hct (34.0-46.0) % MCHC (31.0-37.0) g/dL RDW (11.5-15.5) % Plt Count (150-450) k/uL ESR (0-20) mm/hr APTT (22.0-30.0) sec Potassium (3.5-5.1) mmol/L Chloride (98-107) mmol/L Carbon Dioxide (22-30) mmol/L BUN (7-17) mg/dL Creatinine (0.52-1.04) mg/dL Glucose (74-99) mg/dL POC Glucose (mg/dL) 120 H 118 H 104 H (75-99) mg/dL Iron Saturation (12.00-45.00) 10/29/17 10/29/17 10/29/17 Range/Units 05:28 05:28 05:38 RBC (3.80-5.40) m/uL Hgb (11.4-16.0) gm/dL Hct (34.0-46.0) % MCHC (31.0-37.0) g/dL RDW (11.5-15.5) % Plt Count (150-450) k/uL ESR (0-20) mm/hr APTT 78.4 H (22.0-30.0) sec Potassium 5.5 H (3.5-5.1) mmol/L Chloride 114 H (98-107) mmol/L Carbon Dioxide 19 L (22-30) mmol/L BUN 75 H (7-17) mg/dL Creatinine 3.30 H (0.52-1.04) mg/dL Glucose 126 H (74-99) mg/dL POC Glucose (mg/dL) 124 H (75-99) mg/dL Iron Saturation (12.00-45.00) Microbiology - Last 24 Hours (Table) 10/26/17 17:30 Blood Culture - Preliminary Blood No Growth after 48 hours 10/25/17 18:17 Blood Culture Gram Stain - Preliminary Blood Blood Culture - Preliminary Coagulase Negative Staph 10/28/17 02:27 Urine Culture - Preliminary Urine,Voided 10/26/17 20:41 Gram Stain - Preliminary Ankle - Right Wound Culture - Preliminary Gram Neg Bacilli Gram Neg Bacilli#2 Assessment and Plan Assessment: Assessment 66-year-old female with past medical history of heart failure, CKG, diabetes, hypertension, hyperlipidemia presents the ED for chest pain and shortness of breath. She is admitted to rule out PE and for diuresing. Plan 1. Dyspnea: Likely CHF exacerbation with component from anemia. Trop < 0.012 x 2 , EKG shows NSR. Elevated D-dimer, high risk for PE. V/Q scan attempted twice, patient unable to tolerate. Continue Heparin drip for now. Will discus with Pulm the need for V/Q. O2 per NC to maintain O2 > 92%. BiPAP if necessary. Continue diuresing with IV Lasix. FU CXR, Trop/EKG, ABG 2. Hyperkalemia: K 5.5. Hold Aldactone today. Losartan stopped. FU EKG 3. CHF exacerbation: Echo shows EF 50-55%. Continue Lasix 80 mg IV BID. Continue Aldactone 25 mg PO QD (held today), Metoprolol 50 mg PO BID. CXR shows worsening R pleural effusion, likely related to CHF. Monitor Ins and Outs. Daily weights. K > 4 Mg > 2. FU Cardiology and Pulmonology for possible thoracentesis. 4. Bacteremia: BCx 10/25 + Coagulase negative Staph. Repeat BCx 48H no growth. UA shows large LE. WCx shows GN bacilli. Patient currently on Vancomycin IV and Ceftriaxone IV for coverage of MRSA and GN. No fever or leukocytosis. FU BCx repeat, UCx, CXR, ID consult 5. Anemia: Likely due to CHF and CKD. Hg 8.1 Hc 26.5 MCV 85.0. s/p 1 unit PRBC. Watch as patient is on Heparin drip. Add Aranesp as per Nephro. Retic count elevated. Iron studies show a combination of iron def. and AOCD. FU FOBT 6. JOHN on CKD Stage III. Cr 3.30. Shows hyperchloremic metabolic acidosis. Worsening, likely due to cardiorenal. Monitor and replace electrolytes. Avoid nephrotoxins. DIANNE and Acute Hep panel negative. DC Losartan, Aldactone held. FU C3/C4, Nephrology 7. DM: POC glucose 124. A1c 5.4. Continue Levamir 44 units QD. Diabetic diet. Hypoglycemic precautions. 8. HTN: BP 136/60. Continue Amlodipine 10 mg PO QD, Hydralazine 25 mg PO BID + 75 mg PO QD, Metoprolol 50 mg PO BID, Aldactone 25 mg PO QD. Continue to monitor vitals, adjust medications as necessary. 9. ASCVD risk: Continue ASA 81 mg PO QD, Lipitor 10 mg PO QHS. Patient continues to require noninvasive ventilatory support to maintain oxygenation status. She is being diuresed with Lasix IV but is oligouric. I will discuss with pulmonology the need for V/Q scan, thoracocentesis. Her prognosis is guarded. We are continuing IV antibiotics for her recent positive cultures.
[2017-10-29] MEDS: cefTRIAXone IN SWFI 1,000 MG/10 ML SYRINGE IVP SCH (09:47)
[2017-10-29] MEDS: FUROSEMIDE 10 MG/ML 10 ML VIAL IV SCH (09:47)
[2017-10-29] MEDS: SPIRONOLACTONE 25 MG TAB PO SCH (09:47)
[2017-10-29] MEDS: METOPROLOL TARTRATE 50 MG TAB PO SCH ×2 (09:48→20:17)
[2017-10-29] MEDS: hydrALAZINE HCL 25 MG TAB PO SCH ×3 (09:48→20:17)
[2017-10-29] MEDS: amLODIPine 10 MG TAB PO SCH (09:48)
[2017-10-29] MEDS: INSULIN DETEMIR 100 UNIT/ML 10 ML VIAL SQ SCH (09:48)
[2017-10-29] MEDS: NYSTATIN 100,000 UNIT/GM POWD 15 GM TOPICAL SCH ×2 (09:49→20:17)
--- NOTE | 2017-10-29 10:24 | P.PN ---
Subjective patient is seen in follow-up for acute kidney injury on chronic kidney disease. Patient has chronic kidney disease stage III with baseline creatinine in the range of 1.8-2.3 secondary to diabetic kidney disease. Creatinine today is up to 3.3. She is maintained on Lasix 80 mg IV twice daily. Dyspnea is improved. Currently on BiPAP. Urine output overnight was 125 mL. Vancomycin level is high at 35.1 today. Vital signs are stable. General: The patient appeared well nourished and normally developed. HEENT: Head exam is unremarkable. Neck is without jugular venous distension. LUNGS: Lungs are clear to auscultation and percussion. Breath sounds decreased. HEART: Rate and Rhythm are regular. First and second heart sounds normal. No murmurs, rubs or gallops. ABDOMEN: Abdominal exam reveals normal bowel sounds. Non-tender and non- distended. No evidence of peritonitis. EXTREMITITES: No clubbing, cyanosis, or edema. 1+ edema. Objective - Vital Signs Vital signs: Vital Signs Temp 97.4 F L 10/29/17 04:00 Pulse 53 L 10/29/17 04:00 Resp 19 10/29/17 04:00 BP 135/60 10/29/17 04:00 Pulse Ox 94 L 10/29/17 04:00 Intake & Output 10/28/17 10/29/17 10/29/17 18:59 06:59 18:59 Intake Total 1281.4 298.9 Output Total 700 150 Balance 581.4 148.9 Weight 175.4 kg Intake: IV 440 Heparin Sod,Pork in 0.45% 440 NaCl 25,000 unit In 0.45 % NaCl 1 500ml.bag @ 13. 344 UNITS/KG/HR 46 mls/hr IV .[id number] [facility] Rx#: [id number] Intake, IV Titration 361.4 98.9 Amount Heparin Sod,Pork in 0.45% 311.4 98.9 NaCl 25,000 unit In 0.45 % NaCl 1 500ml.bag @ 13. 344 UNITS/KG/HR 46 mls/hr IV .[id number] [facility] Rx#: [id number] Ondansetron 8 mg In 50 Sodium Chloride 0.9% 50 ml @ 100 mls/hr IVPB ONCE ONE Rx#:[id number] Oral 480 200 Output: Urine 700 150 Other: Voiding Method Diaper Diaper Incontinent Incontinent # Voids 1 - Labs CBC & Chem 7: 10/28/17 11:17 10/29/17 05:28 Labs: Abnormal Lab Results - Last 24 Hours (Table) 10/27/17 10/28/17 10/28/17 Range/Units 05:21 11:17 11:30 RBC 3.10 L (3.80-5.40) m/uL Hgb 8.1 L (11.4-16.0) gm/dL Hct 26.5 L (34.0-46.0) % MCHC 30.6 L (31.0-37.0) g/dL RDW 16.0 H (11.5-15.5) % Plt Count 129 L (150-450) k/uL APTT (22.0-30.0) sec Potassium (3.5-5.1) mmol/L Chloride (98-107) mmol/L Carbon Dioxide (22-30) mmol/L BUN (7-17) mg/dL Creatinine (0.52-1.04) mg/dL Glucose (74-99) mg/dL POC Glucose (mg/dL) 120 H (75-99) mg/dL Plasma Lactic Acid Jamar (0.7-2.0) mmol/L Iron Saturation 45.24 H (12.00-45.00) Total Creatine Kinase (30-135) U/L 10/28/17 10/28/17 10/29/17 Range/Units 17:05 20:38 05:28 RBC (3.80-5.40) m/uL Hgb (11.4-16.0) gm/dL Hct (34.0-46.0) % MCHC (31.0-37.0) g/dL RDW (11.5-15.5) % Plt Count (150-450) k/uL APTT (22.0-30.0) sec Potassium 5.5 H (3.5-5.1) mmol/L Chloride 114 H (98-107) mmol/L Carbon Dioxide 19 L (22-30) mmol/L BUN 75 H (7-17) mg/dL Creatinine 3.30 H (0.52-1.04) mg/dL Glucose 126 H (74-99) mg/dL POC Glucose (mg/dL) 118 H 104 H (75-99) mg/dL Plasma Lactic Acid Jamar (0.7-2.0) mmol/L Iron Saturation (12.00-45.00) Total Creatine Kinase (30-135) U/L 10/29/17 10/29/17 10/29/17 Range/Units 05:28 05:28 05:38 RBC (3.80-5.40) m/uL Hgb (11.4-16.0) gm/dL Hct (34.0-46.0) % MCHC (31.0-37.0) g/dL RDW (11.5-15.5) % Plt Count (150-450) k/uL APTT 78.4 H (22.0-30.0) sec Potassium (3.5-5.1) mmol/L Chloride (98-107) mmol/L Carbon Dioxide (22-30) mmol/L BUN (7-17) mg/dL Creatinine (0.52-1.04) mg/dL Glucose (74-99) mg/dL POC Glucose (mg/dL) 124 H (75-99) mg/dL Plasma Lactic Acid Jamar (0.7-2.0) mmol/L Iron Saturation (12.00-45.00) Total Creatine Kinase 22 L (30-135) U/L 10/29/17 Range/Units 09:34 RBC (3.80-5.40) m/uL Hgb (11.4-16.0) gm/dL Hct (34.0-46.0) % MCHC (31.0-37.0) g/dL RDW (11.5-15.5) % Plt Count (150-450) k/uL APTT (22.0-30.0) sec Potassium (3.5-5.1) mmol/L Chloride (98-107) mmol/L Carbon Dioxide (22-30) mmol/L BUN (7-17) mg/dL Creatinine (0.52-1.04) mg/dL Glucose (74-99) mg/dL POC Glucose (mg/dL) (75-99) mg/dL Plasma Lactic Acid Jamar <0.5 L (0.7-2.0) mmol/L Iron Saturation (12.00-45.00) Total Creatine Kinase (30-135) U/L Microbiology - Last 24 Hours (Table) 10/26/17 17:30 Blood Culture - Preliminary Blood No Growth after 48 hours 10/25/17 18:17 Blood Culture Gram Stain - Preliminary Blood Blood Culture - Preliminary Coagulase Negative Staph 10/28/17 02:27 Urine Culture - Preliminary Urine,Voided 10/26/17 20:41 Gram Stain - Preliminary Ankle - Right Wound Culture - Preliminary Gram Neg Bacilli Gram Neg Bacilli#2 Assessment and Plan Plan: Assessment: 1. Acute kidney injury secondary to ATN secondary to cardiorenal syndrome and vancomycin toxicity. Creatinine up at 3.3 today. Ultrasound from April 2017 was benign. 2. Volume overload. 3. Diastolic CHF with mild pulmonary hypertension. 4. Anemia. iron replete. Component of chronic kidney disease. 5. Insulin-dependent diabetes mellitus. 6. Coag-negative staph bacteremia. Possible contamination. 7. Metabolic acidosis secondary to acute kidney injury. 8. Chest pain. Cardiology following. Currently maintained on heparin drip. 9. Hypertension with chronic kidney disease. Controlled. 10. Chronic kidney disease stage III with baseline creatinine in the range of 1.8-2.3. Etiology is diabetic kidney disease and cardiorenal syndrome. 11. Proteinuria. Likely due to diabetic kidney disease. Follow-up serologies. 12. Hyperkalemia secondary to acute kidney injury, metabolic acidosis and use of Aldactone. Plan: Patient received 80 mg of IV Lasix this morning. Hold tonight's dose. Repeat chest x-ray. Avoid vancomycin if possible. Dose to be adjusted for renal function. Level high at 35.1 this morning. Maintain Aranesp. Avoid nephrotoxic agents and hypotensive episodes. Repeat electrolytes in the morning. Discontinue Aldactone. Add oral sodium bicarbonate 650 mg twice daily. Repeat potassium level this evening. Continue to monitor renal function and urine output closely. If no improvement in her urine output in the next 24-48 hours, will initiate renal replacement therapy.
[2017-10-29 11:41] LABS: Glucose,Whole Blood 132 mg/dL (75-99)
[2017-10-29] MEDS: SODIUM BICARBONATE TAB 650 MG TAB PO SCH ×2 (11:42→20:17)
--- NOTE | 2017-10-29 12:34 | P.PN ---
Subjective Progress Note Date: 10/29/17 Principal diagnosis: Acute exacerbation of chronic diastolic dysfunction Morbidly obese 66-year-old female patient with a BMI of 53.5 along with history of CHF/diastolic dysfunction, diabetes mellitus type 2, chronic renal failure stage III, chronic lower extremity edema/wounds, hypertension and hyperlipidemia , who was recently hospitalized from [facility] for progressive worsening shortness of breath. She also developed some chest pain at home. She was not able to give a good description of brought her chest pain. Based on all this, the patient was sent over to the hospital and the chest x-ray showed interstitial edema and development of right-sided pleural effusion. The patient is chronically failure and the patient was found to have further interval worsening of the renal function and the creatinine was up to 3.0 and the patient is also chronically anemic with hemoglobin as low as 7.0. The BNP level is 3960. 2 sets of cardiac enzymes of been negative. D-dimer is at 1.8. The patient was seen by cardiology. The patient was started on Lasix 80 mg IV push. She is also on Aldactone. The patient is producing urine output in the order of a liter and a daily basis. Echocardiogram was done and the patient was found to have a preserved LV function with an ejection fraction of 50-55%. No cervical valvular abnormalities. The ultrasound the chest was done in 7.7 pocket of pleural fluid identified in the right lung, for possible thoracentesis On 2017, patient is seen in follow-up on selective care unit. She is in moderate amount of respiratory distress, tachypneic, shallow breaths. 6 on 4 L per nasal cannula is 93%, she is afebrile, hemodynamically stable, lung sounds are diminished, with bibasilar crackles, yesterday's chest x-ray has been reviewed and showed worsening right-sided airspace disease, right-sided pleural effusion and cardiomegaly. She remains on IV diuretics at 80 mg every 12 hours. Patient is incontinent of urine, there is no accurate I&O's available. Her weight remains at 169 kg. Patient still has considerable amount of bilateral lower extremity edema. She remains on empiric antibiotics in the form of Rocephin, wound cultures on the right ankle are positive for gram- negative bacilli, and blood cultures are positive for coagulase-negative staph. Culture is negative, no sputum production. The patient is seen today 10/29/2017 in follow-up on the selective care unit. She is awake and alert in no acute distress. She is currently alternating between BiPAP 02/20 at 40% FiO2 versus 4 L/m per nasal cannula. He is maintaining O2 saturations in the 90s. She is currently afebrile. Hemodynamically stable. Current creatinine 3.30. Current weight 175 kg. No accurate I and O available. Wound cultures are revealing 2 separate gram- negative bacilli. She is on ceftriaxone. Objective - Vital Signs Vital signs: Vital Signs Temp 97.4 F L 10/29/17 04:00 Pulse 53 L 10/29/17 11:55 Resp 19 10/29/17 11:55 BP 128/56 10/29/17 11:46 Pulse Ox 93 L 10/29/17 11:46 Intake & Output 10/28/17 10/29/17 10/29/17 18:59 06:59 18:59 Intake Total 1281.4 298.9 Output Total 700 150 Balance 581.4 148.9 Weight 175.4 kg 175.4 kg Intake: IV 440 Heparin Sod,Pork in 0.45% 440 NaCl 25,000 unit In 0.45 % NaCl 1 500ml.bag @ 13. 344 UNITS/KG/HR 46 mls/hr IV .[id number] [facility] Rx#: [id number] Intake, IV Titration 361.4 98.9 Amount Heparin Sod,Pork in 0.45% 311.4 98.9 NaCl 25,000 unit In 0.45 % NaCl 1 500ml.bag @ 13. 344 UNITS/KG/HR 46 mls/hr IV .[id number] [facility] Rx#: [id number] Ondansetron 8 mg In 50 Sodium Chloride 0.9% 50 ml @ 100 mls/hr IVPB ONCE ONE Rx#:[id number] Oral 480 200 Output: Urine 700 150 Other: Voiding Method Diaper Diaper Diaper Incontinent Incontinent Incontinent # Voids 1 - Exam Gen. appearance, comfortable obese, nonacute distress Head exam was generally normal. There was no scleral icterus or corneal arcus. Mucous membranes were moist. Neck was supple and without jugular venous distension, thyromegaly, or carotid bruits. Carotids were easily palpable bilaterally. There was no adenopathy. Lungs sounds are diminished bilaterally especially in the right lung base along with some dullness to percussion Heart sounds are regular, positive S1-S2 and there is systolic ejection murmur grade 3/6 systolic the precordium Abdominal exam revealed normal bowel sounds. The abdomen was soft, non-tender, and without masses, organomegaly, or appreciable enlargement of the abdominal aorta. Extremities revealed 2+ pitting edema there is no cyanosis or clubbing, 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, there is also evidence of chronic venous stasis and lower extremities bilaterally. Patient is wearing a TCC boot in the left lower extremity. Neurologic OA times 3, no focal deficits - Labs CBC & Chem 7: 10/28/17 11:17 10/29/17 05:28 Labs: Abnormal Lab Results - Last 24 Hours (Table) 10/28/17 10/28/17 10/28/17 Range/Units 11:17 17:05 20:38 RBC 3.10 L (3.80-5.40) m/uL Hgb 8.1 L (11.4-16.0) gm/dL Hct 26.5 L (34.0-46.0) % MCHC 30.6 L (31.0-37.0) g/dL RDW 16.0 H (11.5-15.5) % Plt Count 129 L (150-450) k/uL APTT (22.0-30.0) sec Potassium (3.5-5.1) mmol/L Chloride (98-107) mmol/L Carbon Dioxide (22-30) mmol/L BUN (7-17) mg/dL Creatinine (0.52-1.04) mg/dL Glucose (74-99) mg/dL POC Glucose (mg/dL) 118 H 104 H (75-99) mg/dL Plasma Lactic Acid Jamar (0.7-2.0) mmol/L Total Creatine Kinase (30-135) U/L 10/29/17 10/29/17 10/29/17 Range/Units 05:28 05:28 05:28 RBC (3.80-5.40) m/uL Hgb (11.4-16.0) gm/dL Hct (34.0-46.0) % MCHC (31.0-37.0) g/dL RDW (11.5-15.5) % Plt Count (150-450) k/uL APTT 78.4 H (22.0-30.0) sec Potassium 5.5 H (3.5-5.1) mmol/L Chloride 114 H (98-107) mmol/L Carbon Dioxide 19 L (22-30) mmol/L BUN 75 H (7-17) mg/dL Creatinine 3.30 H (0.52-1.04) mg/dL Glucose 126 H (74-99) mg/dL POC Glucose (mg/dL) (75-99) mg/dL Plasma Lactic Acid Jamar (0.7-2.0) mmol/L Total Creatine Kinase 22 L (30-135) U/L 10/29/17 10/29/17 10/29/17 Range/Units 05:38 09:34 11:37 RBC (3.80-5.40) m/uL Hgb (11.4-16.0) gm/dL Hct (34.0-46.0) % MCHC (31.0-37.0) g/dL RDW (11.5-15.5) % Plt Count (150-450) k/uL APTT (22.0-30.0) sec Potassium (3.5-5.1) mmol/L Chloride (98-107) mmol/L Carbon Dioxide (22-30) mmol/L BUN (7-17) mg/dL Creatinine (0.52-1.04) mg/dL Glucose (74-99) mg/dL POC Glucose (mg/dL) 124 H 132 H (75-99) mg/dL Plasma Lactic Acid Jamar <0.5 L (0.7-2.0) mmol/L Total Creatine Kinase (30-135) U/L Microbiology - Last 24 Hours (Table) 10/26/17 17:30 Blood Culture - Preliminary Blood No Growth after 48 hours 10/25/17 18:17 Blood Culture Gram Stain - Preliminary Blood Blood Culture - Preliminary Coagulase Negative Staph 10/28/17 02:27 Urine Culture - Preliminary Urine,Voided 10/26/17 20:41 Gram Stain - Preliminary Ankle - Right Wound Culture - Preliminary Gram Neg Bacilli Gram Neg Bacilli#2 Assessment and Plan Assessment: Impression: 1 worsening shortness of breath with signs of fluid overload and CHF and development of the pleural effusion right more than left 2 chest pain under investigation. Pulmonary embolus in is doubtful. Cardiac enzymes are negative for now. EKGs nonrevealing 3 chronic stage III kidney failure with acute on top of chronic kidney disease interval worsening renal function 4 chronic anemia, likely secondary to renal failure, status post 1 unit of packed red blood cells 5 diabetes mellitus type 2 6 morbid obesity with a BMI of 53.5 7 chronic lower extremity edema 8 running foot ulcer 9 hypertension 10 chronic bilateral lower extremity heel ulcerations, and cultures were positive for gram-negative bacilli, final cultures pending Plan: The patient was seen and evaluated by Dr. Bey. She is currently stable from the pulmonary standpoint. We'll continue to titrate down the FiO2 while maintaining O2 saturations greater than 90%. She remains on IV Lasix. Chest x- ray in the a.m. We will continue to follow. I, the cosigning physician, performed a history & physical examination of the patient. Lungs sounds with crackles in the posterior bases right greater than left Maintaining good O2 saturations in the 90s on 2 L/m per nasal cannula. I discussed the assessment and plan of care with my nurse practitioner, Savanah Penaloza. I attest to the above note as dictated by her.
[2017-10-29 13:05] LABS: ABG Base Excess -5.5 mmol/L; ABG HCO3 22 mmol/L (21-25); ABG Oxygen Saturation 95.9 % (94-97); ABG PCO2 54 mmHg (35-45); ABG PH 7.22 (7.35-7.45); ABG PO2 76 mmHg (83-108); ABG TCO2 24 mmol/L (19-24)
[2017-10-29 14:34] LABS: C-ANCA <1:20 Titer (<1:20); P-ANCA <1:20 Titer (<1:20)
--- NOTE | 2017-10-29 14:45 | XR ---
EXAMINATION TYPE: XR chest 1V portable DATE OF EXAM: 10/29/2017 CLINICAL HISTORY: Difficulty breathing and CHF progress study. TECHNIQUE: Single AP portable frontal view of the chest is obtained. COMPARISON: Chest x-ray from 2 days earlier FINDINGS: There is persisting cardiomegaly with central vascular congestion and small to moderate-si zed right greater than left pleural effusions with associated right basilar atelectasis and/or infilt rate. Stable right-sided PICC line is noted. Osseous structures are intact. Somewhat low lung volumes redemonstrated. IMPRESSION: Overall stable findings, suspect CHF exacerbation as there is cardiomegaly with moderat e central vascular congestion and small to moderate-sized right greater than left pleural effusions. Correlate clinically.
--- NOTE | 2017-10-29 15:57 | P.PN ---
Subjective Progress Note Date: 10/29/17 This is a pleasant 66-year-old female with history of diabetes type 2, chronic lower extremity wounds, hypertension, hyperlipidemia, obesity and remote history of smoking. She was recently hospitalized the end of August and is currently residing in [facility] for wound care and rehab. She has been complaining of progressively worsening shortness of breath recently which was quite a bit worse yesterday. She also developed some chest pressure. She states that she had no associated symptoms she was unclear about the duration of her pressure. She notified the staff at the [facility] and patient was brought to the emergency room for evaluation. In the emergency room patient was noted to have an elevated BUN/creatinine ratio, chest x-ray notable for interstitial edema with small right and trace left pleural effusions. Her d-dimer was elevated. Due to her renal function and inability to lay flat no further work up was performed and she was initiated on a heparin drip. Her first troponin wsa <0.012. Hemoglobin was found to be low at 7.3 with repeat this morning at 7.0. Upon examination patient is resting in bed with HOB at 45 degrees. She is dyspneic with talking. She continues to complain of significant difficulty breathing and orthopnea. She denies PND and currently has no c/o chest pressure. 10/29/2017 Patient seen and examined today. Awake and alert, in no acute distress. Hemodynamically she is stable. Afebrile. Creatinine 3.3, no accurate I&O is available. Wound cultures revealing gram-negative bacilli. She continues to be on IV Lasix. We will pretreat repeat a chest x-ray today. Objective - Vital Signs Vital signs: Vital Signs Temp 97.4 F L 10/29/17 04:00 Pulse 53 L 10/29/17 11:55 Resp 19 10/29/17 11:55 BP 128/56 10/29/17 11:46 Pulse Ox 93 L 10/29/17 11:46 Intake & Output 10/28/17 10/29/17 10/29/17 18:59 06:59 18:59 Intake Total 1281.4 298.9 240 Output Total 700 150 Balance 581.4 148.9 240 Weight 175.4 kg 175.4 kg Intake: IV 440 Heparin Sod,Pork in 0.45% 440 NaCl 25,000 unit In 0.45 % NaCl 1 500ml.bag @ 13. 344 UNITS/KG/HR 46 mls/hr IV .[id number] [facility] Rx#: [id number] Intake, IV Titration 361.4 98.9 Amount Heparin Sod,Pork in 0.45% 311.4 98.9 NaCl 25,000 unit In 0.45 % NaCl 1 500ml.bag @ 13. 344 UNITS/KG/HR 46 mls/hr IV .[id number] [facility] Rx#: [id number] Ondansetron 8 mg In 50 Sodium Chloride 0.9% 50 ml @ 100 mls/hr IVPB ONCE ONE Rx#:[id number] Oral 480 200 240 Output: Urine 700 150 Other: Voiding Method Diaper Diaper Diaper Incontinent Incontinent Incontinent # Voids 1 - Exam PHYSICAL EXAMINATION: GENERAL: 66-year-old female in no acute distress at the time of my examination HEENT: Head is atraumatic, normocephalic. Pupils equal, round. Sclera anicteric. Conjunctiva are clear. Mucous membranes of the mouth are moist. Neck is supple. There is no elevated jugular venous pressure.] bruit is heard. HEART EXAMINATION: Heart S1 and S2 systolic murmur is heard. CHEST EXAMINATION: His reveal diminished air entry bilaterally with fine rales to the bases. ABDOMEN: Soft, obese, nontender. Bowel sounds are heard. No organomegaly noted. EXTREMITIES: 2+ peripheral pulses with 2+ evidence of peripheral edema and no calf tenderness noted. NEUROLOGIC patient is awake, alert and oriented ?-3. . - Labs CBC & Chem 7: 10/28/17 11:17 10/29/17 05:28 Labs: Abnormal Lab Results - Last 24 Hours (Table) 10/28/17 10/28/17 10/29/17 Range/Units 17:05 20:38 05:28 APTT (22.0-30.0) sec ABG pH (7.35-7.45) ABG pCO2 (35-45) mmHg ABG pO2 (83-108) mmHg Potassium 5.5 H (3.5-5.1) mmol/L Chloride 114 H (98-107) mmol/L Carbon Dioxide 19 L (22-30) mmol/L BUN 75 H (7-17) mg/dL Creatinine 3.30 H (0.52-1.04) mg/dL Glucose 126 H (74-99) mg/dL POC Glucose (mg/dL) 118 H 104 H (75-99) mg/dL Plasma Lactic Acid Jamar (0.7-2.0) mmol/L Total Creatine Kinase (30-135) U/L 10/29/17 10/29/17 10/29/17 Range/Units 05:28 05:28 05:38 APTT 78.4 H (22.0-30.0) sec ABG pH (7.35-7.45) ABG pCO2 (35-45) mmHg ABG pO2 (83-108) mmHg Potassium (3.5-5.1) mmol/L Chloride (98-107) mmol/L Carbon Dioxide (22-30) mmol/L BUN (7-17) mg/dL Creatinine (0.52-1.04) mg/dL Glucose (74-99) mg/dL POC Glucose (mg/dL) 124 H (75-99) mg/dL Plasma Lactic Acid Jamar (0.7-2.0) mmol/L Total Creatine Kinase 22 L (30-135) U/L 10/29/17 10/29/17 10/29/17 Range/Units 09:34 11:37 11:43 APTT 64.0 H (22.0-30.0) sec ABG pH (7.35-7.45) ABG pCO2 (35-45) mmHg ABG pO2 (83-108) mmHg Potassium (3.5-5.1) mmol/L Chloride (98-107) mmol/L Carbon Dioxide (22-30) mmol/L BUN (7-17) mg/dL Creatinine (0.52-1.04) mg/dL Glucose (74-99) mg/dL POC Glucose (mg/dL) 132 H (75-99) mg/dL Plasma Lactic Acid Jamar <0.5 L (0.7-2.0) mmol/L Total Creatine Kinase (30-135) U/L 10/29/17 Range/Units 12:54 APTT (22.0-30.0) sec ABG pH 7.22 L (7.35-7.45) ABG pCO2 54 H (35-45) mmHg ABG pO2 76 L (83-108) mmHg Potassium (3.5-5.1) mmol/L Chloride (98-107) mmol/L Carbon Dioxide (22-30) mmol/L BUN (7-17) mg/dL Creatinine (0.52-1.04) mg/dL Glucose (74-99) mg/dL POC Glucose (mg/dL) (75-99) mg/dL Plasma Lactic Acid Jamar (0.7-2.0) mmol/L Total Creatine Kinase (30-135) U/L Microbiology - Last 24 Hours (Table) 10/25/17 18:17 Blood Culture Gram Stain - Final Blood Blood Culture - Final Staphylococcus epidermidis 10/26/17 20:41 Gram Stain - Final Ankle - Right Wound Culture - Final Klebsiella oxytoca Pseudomonas aeruginosa 10/26/17 17:30 Blood Culture - Preliminary Blood No Growth after 48 hours Assessment and Plan Plan: Assessment and plan #1 diastolic congestive heart failure acute on chronic #2 acute on chronic renal failure #3 pleural effusion #4 chronic anemia #5 morbid obesity #6 diabetes #7 chronic bilateral lower extremity ulcerations, cultures positive for gram- negative bacilli #8 hypertension Plan We will continue current dose of IV Lasix, we will repeat chest x-ray, further recommendations then will be made DNP note has been reviewed, I agree with a documented findings and plan of care. Patient was seen and examined.
[2017-10-29 16:43] LABS: Glucose,Whole Blood 124 mg/dL (75-99)
[2017-10-29] MEDS: ASPIRIN 81 MG PO SCH (17:41)
[2017-10-29] MEDS: ATORVASTATIN 10 MG TAB PO SCH (20:17)
[2017-10-29 20:51] LABS: Glucose,Whole Blood 139 mg/dL (75-99)
--- NOTE | 2017-10-29 22:08 | P.PN ---
Subjective Progress Note Date: 10/29/17 66 year old woman with superobesity presents to the ER with marked increase of shortness of breath, with some chest pain also occurring. At admission there was evidence of worsening of her chronic renal failure and significant volume overload, with some diuresis she is already receiving relief from her extensive shortness of breath. At this time she is not complaining of any chest pain. She was found and she has been seen by pulmonary critical care, and there is a possibility of a thoracentesis future. At this time she denies other acute new complaints. A total contact cast is in place on the left leg for the pressure ulcer to the left heel is negative for any difficulties at all. The chronic ulcerations of the right heel is also without pain. She is aware of improved urinary output since being on the higher doses of Lasix. As noted she has a history of significant underlying coronary artery disease with a history of congestive heart failure with known diastolic dysfunction. She is feeling slightly better at this time but certainly not nearly her baseline. She does have significant debility. 10/28/2017 the patient has declined further today. She is requiring BiPAP for oxygen saturation, she is somewhat confused but does seem to be comfortable. She is unable to complain of any new symptoms 10/29/2017 the patient is much more awake and alert today. Her BiPAP is in place and she is no longer confused. She recognized me by name and knows that she is at the hospital. She is denying significant discomfort in her shortness of breath is improved. Objective - Vital Signs Vital signs: Vital Signs Temp 97.4 F L 10/29/17 04:00 Pulse 53 L 10/29/17 16:00 Resp 22 10/29/17 16:00 BP 113/57 10/29/17 16:00 Pulse Ox 95 10/29/17 16:00 Intake & Output 10/29/17 10/29/17 10/30/17 06:59 18:59 06:59 Intake Total 298.9 1121.1 Output Total 150 150 Balance 148.9 971.1 Weight 175.4 kg 175.4 kg Intake: Intake, IV Titration 98.9 401.1 Amount Heparin Sod,Pork in 0.45% 98.9 401.1 NaCl 25,000 unit In 0.45 % NaCl 1 500ml.bag @ 13. 344 UNITS/KG/HR 46 mls/hr IV .[id number] [facility] Rx#: [id number] Oral 200 720 Output: Urine 150 150 Other: Voiding Method Diaper Diaper Incontinent Incontinent # Voids 1 - Exam 66-year-old woman with superobesity is mostly comfortable her respiratory distress remains problematic requiring BiPAP but is keeping it on today which is allowed in improvement of her mentation Head exam was generally normal. There was no scleral icterus or corneal arcus. Mucous membranes were moist. Neck was supple and without jugular venous distension, thyromegaly, or carotid bruits. Carotids were easily palpable bilaterally. There was no adenopathy. Lungs sounds are diminished bilaterally especially in the right lung base along with some dullness to percussion Heart sounds are regular, positive S1-S2 and there is systolic ejection murmur grade 3/6 systolic the precordium Abdominal exam revealed normal bowel sounds. The abdomen was soft, non-tender, and without masses, organomegaly, or appreciable enlargement of the abdominal aorta. Extremities revealed +1-2 pitting edema there is no cyanosis or clubbing, 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, there is also evidence of chronic venous stasis and lower extremities bilaterally. Left heel measures at 2.4 x 3.5 x 0.2 cm right heel ulceration measuring at 2 x 2 x 0.2 total contact cast was removed by the wound team today. Neurologic with her BiPAP in place she is no longer confused - Labs CBC & Chem 7: 10/28/17 11:17 10/29/17 17:06 Labs: Abnormal Lab Results - Last 24 Hours (Table) 10/29/17 10/29/17 10/29/17 Range/Units 05:28 05:28 05:28 APTT 78.4 H (22.0-30.0) sec ABG pH (7.35-7.45) ABG pCO2 (35-45) mmHg ABG pO2 (83-108) mmHg Potassium 5.5 H (3.5-5.1) mmol/L Chloride 114 H (98-107) mmol/L Carbon Dioxide 19 L (22-30) mmol/L BUN 75 H (7-17) mg/dL Creatinine 3.30 H (0.52-1.04) mg/dL Glucose 126 H (74-99) mg/dL POC Glucose (mg/dL) (75-99) mg/dL Plasma Lactic Acid Jamar (0.7-2.0) mmol/L Total Creatine Kinase 22 L (30-135) U/L 10/29/17 10/29/17 10/29/17 Range/Units 05:38 09:34 11:37 APTT (22.0-30.0) sec ABG pH (7.35-7.45) ABG pCO2 (35-45) mmHg ABG pO2 (83-108) mmHg Potassium (3.5-5.1) mmol/L Chloride (98-107) mmol/L Carbon Dioxide (22-30) mmol/L BUN (7-17) mg/dL Creatinine (0.52-1.04) mg/dL Glucose (74-99) mg/dL POC Glucose (mg/dL) 124 H 132 H (75-99) mg/dL Plasma Lactic Acid Jamar <0.5 L (0.7-2.0) mmol/L Total Creatine Kinase (30-135) U/L 10/29/17 10/29/17 10/29/17 Range/Units 11:43 12:54 16:41 APTT 64.0 H (22.0-30.0) sec ABG pH 7.22 L (7.35-7.45) ABG pCO2 54 H (35-45) mmHg ABG pO2 76 L (83-108) mmHg Potassium (3.5-5.1) mmol/L Chloride (98-107) mmol/L Carbon Dioxide (22-30) mmol/L BUN (7-17) mg/dL Creatinine (0.52-1.04) mg/dL Glucose (74-99) mg/dL POC Glucose (mg/dL) 124 H (75-99) mg/dL Plasma Lactic Acid Jamar (0.7-2.0) mmol/L Total Creatine Kinase (30-135) U/L 10/29/17 10/29/17 Range/Units 17:06 20:48 APTT (22.0-30.0) sec ABG pH (7.35-7.45) ABG pCO2 (35-45) mmHg ABG pO2 (83-108) mmHg Potassium 5.6 H (3.5-5.1) mmol/L Chloride (98-107) mmol/L Carbon Dioxide (22-30) mmol/L BUN (7-17) mg/dL Creatinine (0.52-1.04) mg/dL Glucose (74-99) mg/dL POC Glucose (mg/dL) 139 H (75-99) mg/dL Plasma Lactic Acid Jamar (0.7-2.0) mmol/L Total Creatine Kinase (30-135) U/L Microbiology - Last 24 Hours (Table) 10/26/17 17:30 Blood Culture - Preliminary Blood No Growth after 72 hours 10/28/17 02:27 Urine Culture - Final Urine,Voided 10/25/17 18:17 Blood Culture Gram Stain - Final Blood Blood Culture - Final Staphylococcus epidermidis 10/26/17 20:41 Gram Stain - Final Ankle - Right Wound Culture - Final Klebsiella oxytoca Pseudomonas aeruginosa Laboratory Results WBC 10.5 k/uL (3.8-10.6) 10/28/17 11:17 RBC 3.10 m/uL (3.80-5.40) L 10/28/17 11:17 Hgb 8.1 gm/dL (11.4-16.0) L 10/28/17 11:17 Hct 26.5 % (34.0-46.0) L 10/28/17 11:17 MCV 85.5 fL (80.0-100.0) 10/28/17 11:17 MCH 26.2 pg (25.0-35.0) 10/28/17 11:17 MCHC 30.6 g/dL (31.0-37.0) L 10/28/17 11:17 RDW 16.0 % (11.5-15.5) H 10/28/17 11:17 Plt Count 129 k/uL (150-450) L 10/28/17 11:17 Neutrophils % 73 % 10/26/17 00:39 Lymphocytes % 11 % 10/26/17 00:39 Monocytes % 6 % 10/26/17 00:39 Eosinophils % 9 % 10/26/17 00:39 Basophils % 0 % 10/26/17 00:39 Neutrophils # 5.2 k/uL (1.3-7.7) 10/26/17 00:39 Lymphocytes # 0.8 k/uL (1.0-4.8) L 10/26/17 00:39 Monocytes # 0.4 k/uL (0-1.0) 10/26/17 00:39 Eosinophils # 0.6 k/uL (0-0.7) 10/26/17 00:39 Basophils # 0.0 k/uL (0-0.2) 10/26/17 00:39 Hypochromasia Marked 10/28/17 11:17 Anisocytosis Slight 10/28/17 11:17 ESR 69 mm/hr (0-20) H 10/28/17 05:47 Retic Count 2.6 % (0.5-2.0) H 10/28/17 05:47 PT 10.0 sec (9.0-12.0) 10/25/17 13:20 INR 1.0 (<1.2) 10/25/17 13:20 APTT 64.0 sec (22.0-30.0) H 10/29/17 11:43 D-Dimer 1.80 mg/L FEU (<0.60) H 10/25/17 13:20 Sample Site lrad 10/29/17 12:54 ABG pH 7.22 (7.35-7.45) L 10/29/17 12:54 ABG pCO2 54 mmHg (35-45) H 10/29/17 12:54 ABG pO2 76 mmHg (83-108) L 10/29/17 12:54 ABG HCO3 22 mmol/L (21-25) 10/29/17 12:54 ABG Total CO2 24 mmol/L (19-24) 10/29/17 12:54 ABG O2 Saturation 95.9 % (94-97) 10/29/17 12:54 ABG Base Excess -5.5 mmol/L 10/29/17 12:54 Timothy Test Yes 10/29/17 12:54 FiO2 36 % 10/29/17 12:54 Sodium 141 mmol/L (137-145) 10/29/17 05:28 Potassium 5.6 mmol/L (3.5-5.1) H 10/29/17 17:06 Chloride 114 mmol/L (98-107) H 10/29/17 05:28 Carbon Dioxide 19 mmol/L (22-30) L 10/29/17 05:28 Anion Gap 8 mmol/L 10/29/17 05:28 BUN 75 mg/dL (7-17) H 10/29/17 05:28 Creatinine 3.30 mg/dL (0.52-1.04) H 10/29/17 05:28 Est GFR (CKD-EPI)AfAm 16 (>60 ml/min/1.73 sqM) 10/29/17 05:28 Est GFR (CKD-EPI)NonAf 14 (>60 ml/min/1.73 sqM) 10/29/17 05:28 Glucose 126 mg/dL (74-99) H 10/29/17 05:28 POC Glucose (mg/dL) 139 mg/dL (75-99) H 10/29/17 20:48 POC Glu Group Work Program Director ID Geena Mccall 10/29/17 20:48 Plasma Lactic Acid Jamar <0.5 mmol/L (0.7-2.0) L 10/29/17 09:34 Calcium 9.2 mg/dL (8.4-10.2) 10/29/17 05:28 Magnesium 2.1 mg/dL (1.6-2.3) 10/29/17 05:28 Iron 114 ug/dL (50-170) 10/27/17 05:21 TIBC 252 ug/dL (228-460) 10/27/17 05:21 Iron Saturation 45.24 (12.00-45.00) H 10/27/17 05:21 Ferritin 64.7 ng/mL (10.0-291.0) 10/27/17 05:21 Total Bilirubin 0.2 mg/dL (0.2-1.3) 10/25/17 13:20 AST 17 U/L (14-36) 10/25/17 13:20 ALT 29 U/L (9-52) 10/25/17 13:20 Alkaline Phosphatase 57 U/L (38-126) 10/25/17 13:20 Total Creatine Kinase 22 U/L (30-135) L 10/29/17 05:28 CK-MB (CK-2) 1.5 ng/mL (0.0-2.4) 10/29/17 05:28 CK-MB (CK-2) Rel Index 6.8 10/29/17 05:28 Troponin I <0.012 ng/mL (0.000-0.034) 10/26/17 05:40 C-Reactive Protein 14.6 mg/L (<10.0) H 10/28/17 05:47 NT-Pro-B Natriuret Pep 3960 pg/mL 10/25/17 13:20 Total Protein 5.9 g/dL (6.3-8.2) L 10/25/17 13:20 Albumin 2.8 g/dL (3.5-5.0) L 10/25/17 13:20 Urine Color Light Yellow 10/28/17 02:27 Urine Appearance Cloudy (Clear) H 10/28/17 02:27 Urine pH 5.5 (5.0-8.0) 10/28/17 02:27 Ur Specific [place] 1.008 (1.001-1.035) 10/28/17 02:27 Urine Protein 2+ (Negative) H 10/28/17 02:27 Urine Glucose (UA) Negative (Negative) 10/28/17 02:27 Urine Ketones Negative (Negative) 10/28/17 02:27 Urine Blood Moderate (Negative) H 10/28/17 02:27 Urine Nitrite Negative (Negative) 10/28/17 02:27 Urine Bilirubin Negative (Negative) 10/28/17 02:27 Urine Urobilinogen <2.0 mg/dL (<2.0) 10/28/17 02:27 Ur Leukocyte Esterase Large (Negative) H 10/28/17 02:27 Urine RBC 6 /hpf (0-5) H 10/28/17 02:27 Urine WBC 32 /hpf (0-5) H 10/28/17 02:27 Ur Squamous Epith Cells 1 /hpf (0-4) 10/28/17 02:27 Urine Bacteria Few /hpf (None) H 10/28/17 02:27 Urine Yeast (Budding) Rare /hpf (None) H 10/28/17 02:27 Random Vancomycin 35.1 ug/mL 10/29/17 05:28 DIANNE Screen NEGATIVE (NEGATIVE) 10/28/17 05:47 c-ANCA <1:20 Titer (<1:20) 10/25/17 13:00 p-ANCA <1:20 Titer (<1:20) 10/25/17 13:00 Complement C3 156.0 mg/dL (80.0-207.0) 10/28/17 05:47 Complement C4 33.6 mg/dL (10.0-53.0) 10/28/17 05:47 Hepatitis A IgM Ab Non-Reactive (Non-Reactive) 10/28/17 05:47 Hep Bs Antigen Non-Reactive (Non-Reactive) 10/28/17 05:47 Hep B Core IgM Ab Non-Reactive (Non-Reactive) 10/28/17 05:47 Hep C IgG Ab Non-Reactive (Non-Reactive) 10/28/17 05:47 Blood Type B Positive 10/26/17 18:58 Blood Type Recheck No 10/26/17 18:58 Antibody Screen NEGATIVE 10/26/17 18:58 Crossmatch See Detail 10/26/17 18:58 Spec Expiration Date 10/29/2017 10/26/17 18:58 Microbiology 10/26/17 17:30 Blood Blood Culture - Preliminary No Growth after 72 hours 10/28/17 02:27 Urine,Voided Urine Culture - Final 10/25/17 18:17 Blood Blood Culture Gram Stain - Final 10/25/17 18:17 Blood Blood Culture - Final Staphylococcus epidermidis 10/26/17 20:41 Ankle - Right Gram Stain - Final 10/26/17 20:41 Ankle - Right Wound Culture - Final Klebsiella oxytoca Pseudomonas aeruginosa 10/25/17 18:17 Blood Blood Culture - Final Assessment and Plan (1) Diabetes mellitus type 2, uncontrolled, with complications Current Visit: No Status: Acute Code(s): E11.8 - TYPE 2 DIABETES MELLITUS WITH UNSPECIFIED COMPLICATIONS; E11.65 - TYPE 2 DIABETES MELLITUS WITH HYPERGLYCEMIA SNOMED Code(s): 258213846 (2) Diabetic ulcer of heel Narrative/Plan: 66-year-old woman who has superobesity presented to Hospital from the extended care facility with increasing shortness of breath. If the admission there is evidence of fluid overload and worsening of her chronic diastolic congestive heart failure. It is noted that she has developed a right pleural effusion and has been seen by pulmonary medicine. Goal will be for further diuresis before any attempt of a thoracentesis. She this point and was more comfortable than admission, appears her chest pain has improved. Physical chronic ulcerations the left heel and a total contact cast is in place. This is removed tomorrow. The ulceration to the right heel has the Opticel silver in place which is adequate and can be changed every other day. She does have a chronic anemia that has worsened over the last year. This may be worsening her heart failure and will be further evaluated at this time. She is being treated for this significant infection to heal with intravenous vancomycin at the [facility]. Vancomycin will continue also had and Rocephin now based on prior culture results. Patient is a blood culture drawn it appears to be contamination would need no further ulceration of treatment unless there are further positive blood cultures. Given that she does not have fevers or chills it is not likely that she has a line sepsis. 10/28/2017 patient statuses worsened today. Her pulmonary status seems to have declined and she is requiring BiPAP for adequate oxygenation. She is more confused with her current respiratory difficulties. She however is not agitated and does not seem to be uncomfortable. BiPAP is reapplied and is being watched closely to try to keep into place. Blood culture contamination. Wound culture has gram-negative bacilli and at this time vancomycin is being continued to complete his course of therapy from the prior bony infection, Rocephin is being utilized until there is further culture data. Her prognosis is poor. 10/29/2017 the patient is improved today. With her BiPAP and place her mentation is clear. The ulceration of the left heel will be treated with the silver alginate dressing also. Antibiotic therapy will be altered from Rocephin to ceftazidime given the isolated Klebsiella and Pseudomonas. She continues to have difficulty with her renal failure is being followed by nephrology. She is yet to clear her last dose of antibiotic therapy (vancomycin ) that was given before her admission. The patient is very weak and will need to complete a course of physical therapy before she will be able to get back to her home setting. Nephrology is relating if she does not have further improvement they will then consider renal replacement therapy to improve her fracture volume overload chronic respiratory failure and acidosis. Current Visit: No Status: Acute Code(s): E11.621 - TYPE 2 DIABETES MELLITUS WITH FOOT ULCER; L97.409 - NON-PRS CHRONIC ULCER OF UNSP HEEL AND MIDFOOT W UNSP SEVERT SNOMED Code(s): 46861808 (3) Severe obesity (BMI >= 40) Current Visit: No Status: Acute Code(s): E66.01 - MORBID (SEVERE) OBESITY DUE TO EXCESS CALORIES SNOMED Code(s): 631648411
[2017-10-30 06:22] LABS: Glucose,Whole Blood 110 mg/dL (75-99)
[2017-10-30] MEDS: HEPARIN SOD,PORK IN 0.45% NACL 25,000 UNIT in 0.45% NACL 1 500ML.BAG IV SCH ×3 (06:47→23:21)
[2017-10-30] MEDS: PANTOPRAZOLE 40 MG TABLET PO SCH (06:48)
[2017-10-30 07:07] LABS: Calcium 8.5 mg/dL (8.4-10.2); Potassium 5.7 mmol/L (3.5-5.1)
--- NOTE | 2017-10-30 08:10 | XR ---
EXAMINATION TYPE: XR chest 1V portable DATE OF EXAM: 10/30/2017 COMPARISON: 10/29/2017 INDICATION: CHF TECHNIQUE: Single frontal view of the chest is obtained. FINDINGS: The heart size is enlarged. The pulmonary vasculature is prominent. There is a infiltrate in the right upper lobe. Some bibasilar infiltrates are present greater on the right. Silhouetting the diaphragms is present. Patient is rotated to the right. IMPRESSION: 1. Worsening right upper lobe infiltrate. Atypical pulmonary edema and pneumonia should be considered . 2. Clinical correlation recommended for worsening congestive heart failure.
[2017-10-30] MEDS ORDERED: SODIUM POLYSTYRENE SULFONATE 15 GM/60 ML BOTTLE PO STA (08:30)
--- NOTE | 2017-10-30 08:53 | P.PN ---
Subjective Progress Note Date: 10/30/17 Principal diagnosis: CHF exacerbation, acute renal failure. Patient was seen and examined. No acute events overnight. Patient reports improved breathing since being on BiPAP. She complains of the noise of BiPAP but is otherwise tolerating it well. Per RN, 300cc of urine output over the last 24H. Patient asking when she can go home. She denies any chest pain or palpitaitons. No Bowel movement. Objective - Vital Signs Vital signs: Vital Signs Temp 97.5 F L 10/30/17 08:00 Pulse 58 L 10/30/17 08:00 Resp 24 10/30/17 08:00 BP 139/57 10/30/17 08:00 Pulse Ox 93 L 10/30/17 08:00 Intake & Output 10/29/17 10/30/17 10/30/17 18:59 06:59 18:59 Intake Total 1121.1 580 Output Total 150 Balance 971.1 580 Weight 175.4 kg 177.8 kg Intake: IV 80 0.9 80 Intake, IV Titration 401.1 500 Amount Heparin Sod,Pork in 0.45% 401.1 500 NaCl 25,000 unit In 0.45 % NaCl 1 500ml.bag @ 13. 344 UNITS/KG/HR 46 mls/hr IV .[id number] [facility] Rx#: [id number] Oral 720 Output: Urine 150 Other: Voiding Method Diaper Diaper Diaper Incontinent Incontinent Incontinent - Exam General: morbidly obese, no distress, appears at stated age, on BiPAP Derm: warm, dry Head: atraumatic, normocephalic, symmetric Eyes: EOMI, no lid lag, anicteric sclera Mouth: no lip lesion, mucus membranes moist Cardiovascular: S1S2 reg, systolic murmur, regular rate Lungs: Coarse breath sounds bilaterally, no rhonchi, no rales , labored breathing Abdominal: soft, nontender to palpation, no guarding, no appreciable organomegaly, obese Ext: 2+ lower extremity edema bilaterally, no contractures. Chronic venous stasis BL LE. RLE wrapped. Psych: Alert, oriented, appropriate affect - Labs CBC & Chem 7: 10/28/17 11:17 10/30/17 05:29 Labs: Abnormal Lab Results - Last 24 Hours (Table) 10/29/17 10/29/17 10/29/17 Range/Units 05:28 09:34 11:37 APTT (22.0-30.0) sec ABG pH (7.35-7.45) ABG pCO2 (35-45) mmHg ABG pO2 (83-108) mmHg Potassium (3.5-5.1) mmol/L Chloride (98-107) mmol/L Carbon Dioxide (22-30) mmol/L BUN (7-17) mg/dL Creatinine (0.52-1.04) mg/dL POC Glucose (mg/dL) 132 H (75-99) mg/dL Plasma Lactic Acid Jamar <0.5 L (0.7-2.0) mmol/L Total Creatine Kinase 22 L (30-135) U/L 10/29/17 10/29/17 10/29/17 Range/Units 11:43 12:54 16:41 APTT 64.0 H (22.0-30.0) sec ABG pH 7.22 L (7.35-7.45) ABG pCO2 54 H (35-45) mmHg ABG pO2 76 L (83-108) mmHg Potassium (3.5-5.1) mmol/L Chloride (98-107) mmol/L Carbon Dioxide (22-30) mmol/L BUN (7-17) mg/dL Creatinine (0.52-1.04) mg/dL POC Glucose (mg/dL) 124 H (75-99) mg/dL Plasma Lactic Acid Jamar (0.7-2.0) mmol/L Total Creatine Kinase (30-135) U/L 10/29/17 10/29/17 10/30/17 Range/Units 17:06 20:48 05:29 APTT (22.0-30.0) sec ABG pH (7.35-7.45) ABG pCO2 (35-45) mmHg ABG pO2 (83-108) mmHg Potassium 5.6 H 5.7 H (3.5-5.1) mmol/L Chloride 114 H (98-107) mmol/L Carbon Dioxide 21 L (22-30) mmol/L BUN 78 H (7-17) mg/dL Creatinine 3.79 H (0.52-1.04) mg/dL POC Glucose (mg/dL) 139 H (75-99) mg/dL Plasma Lactic Acid Jamar (0.7-2.0) mmol/L Total Creatine Kinase (30-135) U/L 10/30/17 10/30/17 Range/Units 05:29 06:20 APTT 46.1 H (22.0-30.0) sec ABG pH (7.35-7.45) ABG pCO2 (35-45) mmHg ABG pO2 (83-108) mmHg Potassium (3.5-5.1) mmol/L Chloride (98-107) mmol/L Carbon Dioxide (22-30) mmol/L BUN (7-17) mg/dL Creatinine (0.52-1.04) mg/dL POC Glucose (mg/dL) 110 H (75-99) mg/dL Plasma Lactic Acid Jamar (0.7-2.0) mmol/L Total Creatine Kinase (30-135) U/L Microbiology - Last 24 Hours (Table) 10/25/17 18:17 Blood Culture Gram Stain - Final Blood Blood Culture - Final Staphylococcus epidermidis 10/26/17 17:30 Blood Culture - Preliminary Blood No Growth after 72 hours 10/28/17 02:27 Urine Culture - Final Urine,Voided 10/26/17 20:41 Gram Stain - Final Ankle - Right Wound Culture - Final Klebsiella oxytoca Pseudomonas aeruginosa Assessment and Plan Assessment: Assessment 66-year-old female with past medical history of heart failure, CKG, diabetes, hypertension, hyperlipidemia presents the ED for chest pain and shortness of breath. She is admitted to rule out PE and for diuresing. Plan 1. Dyspnea: Likely CHF exacerbation with component from anemia. Trop < 0.012 x 2 , CKMB negative 10/29, EKG shows NSR. Elevated D-dimer, high risk for PE. V/Q scan attempted twice, patient unable to tolerate. Continue Heparin drip for now. Will discus with Pulm the need for V/Q, possible thoracentesis. O2 per NC to maintain O2 > 92%, BiPAP if necessary. Continue diuresing with IV Lasix. Chest x-ray shows worsening right upper lobe infiltrate, atypical pulmonary edema versus pneumonia. ABG from yesterday shows acute respiratory acidosis with metabolic acidosis as well. FU CXR in the AM 2. Hyperkalemia: K 5.5 to 5.7. Holding Aldactone and Losartan. Likely related to wosening CKD. Kayexalate 30g x 1. FU BMP in the PM 3. CHF exacerbation: Echo shows EF 50-55%. Continue Lasix 80 mg IV BID. Continue Metoprolol 50 mg PO BID. Holding Losartan and Aldactone. CXR shows worsening R pleural effusion, likely related to CHF. Monitor Ins and Outs. Daily weights. K > 4 Mg > 2. FU Cardiology and Pulmonology 4. Bacteremia: BCx 8/10 S. epidermidis. Repeat BCx 72H no growth. UA shows large LE, UCx showed mixed colonies. WCx shows K. oxytoca and P. aeruginosa. Chest x-ray showing possible right upper lobe infiltrate. Patient currently on Ceftazadine IV, Vancomycin IV DC'd. No fever or leukocytosis. FU ID consult 5. Anemia: Likely due to CHF and CKD. Hg 8.1 Hc 26.5 MCV 85.0. s/p 1 unit PRBC. Watch as patient is on Heparin drip. Add Aranesp as per Nephro. Retic count elevated. Iron studies show a combination of iron def. and AOCD. FU FOBT 6. JOHN on CKD Stage III. Cr 3.79. ABG shows respiratory acidosis with hyperchloremic metabolic acidosis. Worsening, likely due to cardiorenal. Monitor and replace electrolytes. Avoid nephrotoxins. DIANNE and Acute Hep panel negative. C3/C4 within normal limits. DC Losartan, Aldactone held. NaHCO3 650 mg PO BID as per Nephro. FU K in the PM, Phos + Mg, Nephrology 7. DM: POC glucose 139. A1c 5.4. Continue Levamir 44 units QD. Diabetic diet. Hypoglycemic precautions. 8. HTN: BP 139/57. Continue Amlodipine 10 mg PO QD, Hydralazine 25 mg PO BID + 75 mg PO QD, Metoprolol 50 mg PO BID, Aldactone 25 mg PO QD. Continue to monitor vitals, adjust medications as necessary. 9. ASCVD risk: Continue ASA 81 mg PO QD, Lipitor 10 mg PO QHS. Patient continues to require noninvasive ventilatory support to maintain oxygenation status. She is being diuresed with Lasix IV but is oligouric. Her urine output continues to be low. I will discuss with pulmonology the need for V/Q scan, thoracocentesis. Her mentation is better today but her prognosis remains guarded.
--- NOTE | 2017-10-30 09:19 | P.PN ---
Subjective patient is seen in follow-up for acute kidney injury on chronic kidney disease. Patient has chronic kidney disease stage III with baseline creatinine in the range of 1.8-2.3 secondary to diabetic kidney disease. Creatinine today is up to 3.79. She is maintained on Lasix 80 mg IV twice daily and is oliguric. Vancomycin level is high at 35.1 10/29. Still dyspneic. Vital signs are stable. General: The patient appeared well nourished and normally developed. HEENT: Head exam is unremarkable. Neck is without jugular venous distension. LUNGS: Lungs are clear to auscultation and percussion. Breath sounds decreased. HEART: Rate and Rhythm are regular. First and second heart sounds normal. No murmurs, rubs or gallops. ABDOMEN: Abdominal exam reveals normal bowel sounds. Non-tender and non- distended. No evidence of peritonitis. EXTREMITITES: No clubbing, cyanosis, or edema. 1+ edema. Objective - Vital Signs Vital signs: Vital Signs Temp 97.5 F L 10/30/17 08:00 Pulse 58 L 10/30/17 08:00 Resp 24 10/30/17 08:00 BP 139/57 10/30/17 08:00 Pulse Ox 93 L 10/30/17 08:00 Intake & Output 10/29/17 10/30/17 10/30/17 18:59 06:59 18:59 Intake Total 1121.1 580 Output Total 150 Balance 971.1 580 Weight 175.4 kg 177.8 kg Intake: IV 80 0.9 80 Intake, IV Titration 401.1 500 Amount Heparin Sod,Pork in 0.45% 401.1 500 NaCl 25,000 unit In 0.45 % NaCl 1 500ml.bag @ 13. 344 UNITS/KG/HR 46 mls/hr IV .[id number] [facility] Rx#: [id number] Oral 720 Output: Urine 150 Other: Voiding Method Diaper Diaper Diaper Incontinent Incontinent Incontinent - Labs CBC & Chem 7: 10/28/17 11:17 10/30/17 05:29 Labs: Abnormal Lab Results - Last 24 Hours (Table) 10/29/17 10/29/17 10/29/17 Range/Units 09:34 11:37 11:43 APTT 64.0 H (22.0-30.0) sec ABG pH (7.35-7.45) ABG pCO2 (35-45) mmHg ABG pO2 (83-108) mmHg Potassium (3.5-5.1) mmol/L Chloride (98-107) mmol/L Carbon Dioxide (22-30) mmol/L BUN (7-17) mg/dL Creatinine (0.52-1.04) mg/dL POC Glucose (mg/dL) 132 H (75-99) mg/dL Plasma Lactic Acid Jamar <0.5 L (0.7-2.0) mmol/L 10/29/17 10/29/17 10/29/17 Range/Units 12:54 16:41 17:06 APTT (22.0-30.0) sec ABG pH 7.22 L (7.35-7.45) ABG pCO2 54 H (35-45) mmHg ABG pO2 76 L (83-108) mmHg Potassium 5.6 H (3.5-5.1) mmol/L Chloride (98-107) mmol/L Carbon Dioxide (22-30) mmol/L BUN (7-17) mg/dL Creatinine (0.52-1.04) mg/dL POC Glucose (mg/dL) 124 H (75-99) mg/dL Plasma Lactic Acid Jamar (0.7-2.0) mmol/L 10/29/17 10/30/17 10/30/17 Range/Units 20:48 05:29 05:29 APTT 46.1 H (22.0-30.0) sec ABG pH (7.35-7.45) ABG pCO2 (35-45) mmHg ABG pO2 (83-108) mmHg Potassium 5.7 H (3.5-5.1) mmol/L Chloride 114 H (98-107) mmol/L Carbon Dioxide 21 L (22-30) mmol/L BUN 78 H (7-17) mg/dL Creatinine 3.79 H (0.52-1.04) mg/dL POC Glucose (mg/dL) 139 H (75-99) mg/dL Plasma Lactic Acid Jamar (0.7-2.0) mmol/L 10/30/17 Range/Units 06:20 APTT (22.0-30.0) sec ABG pH (7.35-7.45) ABG pCO2 (35-45) mmHg ABG pO2 (83-108) mmHg Potassium (3.5-5.1) mmol/L Chloride (98-107) mmol/L Carbon Dioxide (22-30) mmol/L BUN (7-17) mg/dL Creatinine (0.52-1.04) mg/dL POC Glucose (mg/dL) 110 H (75-99) mg/dL Plasma Lactic Acid Jamar (0.7-2.0) mmol/L Microbiology - Last 24 Hours (Table) 10/25/17 18:17 Blood Culture Gram Stain - Final Blood Blood Culture - Final Staphylococcus epidermidis 10/26/17 17:30 Blood Culture - Preliminary Blood No Growth after 72 hours 10/28/17 02:27 Urine Culture - Final Urine,Voided 10/26/17 20:41 Gram Stain - Final Ankle - Right Wound Culture - Final Klebsiella oxytoca Pseudomonas aeruginosa Assessment and Plan Plan: Assessment: 1. Acute kidney injury secondary to ATN secondary to cardiorenal syndrome and vancomycin toxicity. Creatinine up at 3.79 today. Ultrasound from April 2017 was benign. Vancomycin discontinued. 2. Volume overload. 3. Diastolic CHF with mild pulmonary hypertension. 4. Anemia. iron replete. Component of chronic kidney disease. Maintained on Aranesp. 5. Insulin-dependent diabetes mellitus. 6. Coag-negative staph bacteremia. Possible contamination. 7. Metabolic acidosis secondary to acute kidney injury. Maintain on oral sodium bicarbonate. 8. Chest pain. Cardiology following. Currently maintained on heparin drip. 9. Hypertension with chronic kidney disease. Controlled. 10. Chronic kidney disease stage III with baseline creatinine in the range of 1.8-2.3. Etiology is diabetic kidney disease and cardiorenal syndrome. 11. Proteinuria. Likely due to diabetic kidney disease. Serologies negative so far. 12. Hyperkalemia secondary to acute kidney injury, metabolic acidosis and use of Aldactone. Aldactone discontinued on October 29. Plan: Patient is oliguric with persistent hyperkalemia and is also hypervolemic. Consult vascular surgery for dialysis catheter placement. First treatment of hemodialysis today and second treatment tomorrow. Avoid nephrotoxic agents. Continue to monitor renal function and urine output closely. Maintain Lasix 80 mg IV twice daily. Check phosphorus level.
--- NOTE | 2017-10-30 10:04 | P.PN ---
Subjective Progress Note Date: 10/30/17 Principal diagnosis: Acute exacerbation of chronic diastolic dysfunction Morbidly obese 66-year-old female patient with a BMI of 53.5 along with history of CHF/diastolic dysfunction, diabetes mellitus type 2, chronic renal failure stage III, chronic lower extremity edema/wounds, hypertension and hyperlipidemia , who was recently hospitalized from [facility] for progressive worsening shortness of breath. She also developed some chest pain at home. She was not able to give a good description of brought her chest pain. Based on all this, the patient was sent over to the hospital and the chest x-ray showed interstitial edema and development of right-sided pleural effusion. The patient is chronically failure and the patient was found to have further interval worsening of the renal function and the creatinine was up to 3.0 and the patient is also chronically anemic with hemoglobin as low as 7.0. The BNP level is 3960. 2 sets of cardiac enzymes of been negative. D-dimer is at 1.8. The patient was seen by cardiology. The patient was started on Lasix 80 mg IV push. She is also on Aldactone. The patient is producing urine output in the order of a liter and a daily basis. Echocardiogram was done and the patient was found to have a preserved LV function with an ejection fraction of 50-55%. No cervical valvular abnormalities. The ultrasound the chest was done in 7.7 pocket of pleural fluid identified in the right lung, for possible thoracentesis On 2017, patient is seen in follow-up on selective care unit. She is in moderate amount of respiratory distress, tachypneic, shallow breaths. 6 on 4 L per nasal cannula is 93%, she is afebrile, hemodynamically stable, lung sounds are diminished, with bibasilar crackles, yesterday's chest x-ray has been reviewed and showed worsening right-sided airspace disease, right-sided pleural effusion and cardiomegaly. She remains on IV diuretics at 80 mg every 12 hours. Patient is incontinent of urine, there is no accurate I&O's available. Her weight remains at 169 kg. Patient still has considerable amount of bilateral lower extremity edema. She remains on empiric antibiotics in the form of Rocephin, wound cultures on the right ankle are positive for gram- negative bacilli, and blood cultures are positive for coagulase-negative staph. Culture is negative, no sputum production. The patient is seen today 10/29/2017 in follow-up on the selective care unit. She is awake and alert in no acute distress. She is currently alternating between BiPAP 02/20 at 40% FiO2 versus 4 L/m per nasal cannula. He is maintaining O2 saturations in the 90s. She is currently afebrile. Hemodynamically stable. Current creatinine 3.30. Current weight 175 kg. No accurate I and O available. Wound cultures are revealing 2 separate gram- negative bacilli. She is on ceftriaxone. The patient is seen again today 10/30/2017 in follow-up on the selective care unit. She's been afebrile. Maintaining good O2 saturations in the 90s on 4 L/ m per nasal cannula. She had not required BiPAP support yesterday. Creatinine does continue to rise currently 3.79. Potassium 5.7. Continue on Lasix 80 mg IV twice a day. Aldactone was discontinued. Vancomycin discontinued. Chest x- ray continues to show worsening congestive heart failure with a right upper lobe infiltrate. Nephrology is planning for dialysis today. She is currently on ceftazidime. Wound cultures positive for Klebsiella oxytoca and pseudomonas aeruginosa. She remains on a heparin drip. Objective - Vital Signs Vital signs: Vital Signs Temp 97.5 F L 10/30/17 08:00 Pulse 58 L 10/30/17 08:00 Resp 24 10/30/17 08:00 BP 139/57 10/30/17 08:00 Pulse Ox 93 L 10/30/17 08:00 Intake & Output 10/29/17 10/30/17 10/30/17 18:59 06:59 18:59 Intake Total 1121.1 580 Output Total 150 Balance 971.1 580 Weight 175.4 kg 177.8 kg Intake: IV 80 0.9 80 Intake, IV Titration 401.1 500 Amount Heparin Sod,Pork in 0.45% 401.1 500 NaCl 25,000 unit In 0.45 % NaCl 1 500ml.bag @ 13. 344 UNITS/KG/HR 46 mls/hr IV .[id number] [facility] Rx#: [id number] Oral 720 Output: Urine 150 Other: Voiding Method Diaper Diaper Diaper Incontinent Incontinent Incontinent - Exam Gen. appearance, comfortable obese, nonacute distress Head exam was generally normal. There was no scleral icterus or corneal arcus. Mucous membranes were moist. Neck was supple and without jugular venous distension, thyromegaly, or carotid bruits. Carotids were easily palpable bilaterally. There was no adenopathy. Lungs sounds are diminished bilaterally especially in the right lung base along with some dullness to percussion Heart sounds are regular, positive S1-S2 and there is systolic ejection murmur grade 3/6 systolic the precordium Abdominal exam revealed normal bowel sounds. The abdomen was soft, non-tender, and without masses, organomegaly, or appreciable enlargement of the abdominal aorta. Extremities revealed 2+ pitting edema there is no cyanosis or clubbing, 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, there is also evidence of chronic venous stasis and lower extremities bilaterally. Patient is wearing a TCC boot in the left lower extremity. Neurologic OA times 3, no focal deficits - Labs CBC & Chem 7: 10/28/17 11:17 10/30/17 05:29 Labs: Abnormal Lab Results - Last 24 Hours (Table) 10/29/17 10/29/17 10/29/17 Range/Units 09:34 11:37 11:43 APTT 64.0 H (22.0-30.0) sec ABG pH (7.35-7.45) ABG pCO2 (35-45) mmHg ABG pO2 (83-108) mmHg Potassium (3.5-5.1) mmol/L Chloride (98-107) mmol/L Carbon Dioxide (22-30) mmol/L BUN (7-17) mg/dL Creatinine (0.52-1.04) mg/dL POC Glucose (mg/dL) 132 H (75-99) mg/dL Plasma Lactic Acid Jamar <0.5 L (0.7-2.0) mmol/L 10/29/17 10/29/17 10/29/17 Range/Units 12:54 16:41 17:06 APTT (22.0-30.0) sec ABG pH 7.22 L (7.35-7.45) ABG pCO2 54 H (35-45) mmHg ABG pO2 76 L (83-108) mmHg Potassium 5.6 H (3.5-5.1) mmol/L Chloride (98-107) mmol/L Carbon Dioxide (22-30) mmol/L BUN (7-17) mg/dL Creatinine (0.52-1.04) mg/dL POC Glucose (mg/dL) 124 H (75-99) mg/dL Plasma Lactic Acid Jamar (0.7-2.0) mmol/L 10/29/17 10/30/17 10/30/17 Range/Units 20:48 05:29 05:29 APTT 46.1 H (22.0-30.0) sec ABG pH (7.35-7.45) ABG pCO2 (35-45) mmHg ABG pO2 (83-108) mmHg Potassium 5.7 H (3.5-5.1) mmol/L Chloride 114 H (98-107) mmol/L Carbon Dioxide 21 L (22-30) mmol/L BUN 78 H (7-17) mg/dL Creatinine 3.79 H (0.52-1.04) mg/dL POC Glucose (mg/dL) 139 H (75-99) mg/dL Plasma Lactic Acid Jamar (0.7-2.0) mmol/L 10/30/17 Range/Units 06:20 APTT (22.0-30.0) sec ABG pH (7.35-7.45) ABG pCO2 (35-45) mmHg ABG pO2 (83-108) mmHg Potassium (3.5-5.1) mmol/L Chloride (98-107) mmol/L Carbon Dioxide (22-30) mmol/L BUN (7-17) mg/dL Creatinine (0.52-1.04) mg/dL POC Glucose (mg/dL) 110 H (75-99) mg/dL Plasma Lactic Acid Jamar (0.7-2.0) mmol/L Microbiology - Last 24 Hours (Table) 10/25/17 18:17 Blood Culture Gram Stain - Final Blood Blood Culture - Final Staphylococcus epidermidis 10/26/17 17:30 Blood Culture - Preliminary Blood No Growth after 72 hours 10/28/17 02:27 Urine Culture - Final Urine,Voided 10/26/17 20:41 Gram Stain - Final Ankle - Right Wound Culture - Final Klebsiella oxytoca Pseudomonas aeruginosa Assessment and Plan Assessment: Impression: 1 worsening shortness of breath with signs of fluid overload and CHF and development of the pleural effusion right more than left 2 chest pain under investigation. Pulmonary embolus in is doubtful. Cardiac enzymes are negative for now. EKGs nonrevealing 3 chronic stage III kidney failure with acute on top of chronic kidney disease interval worsening renal function 4 chronic anemia, likely secondary to renal failure, status post 1 unit of packed red blood cells 5 diabetes mellitus type 2 6 morbid obesity with a BMI of 53.5 7 chronic lower extremity edema 8 running foot ulcer 9 hypertension 10 chronic bilateral lower extremity heel ulcerations, and cultures were positive for pseudomonas aeruginosa and Klebsiella oxytoca. She is currently on ceftazidime. ID is on the case. Plan: The patient was seen and evaluated by Dr. Bey. Chest x-ray reviewed. There is worsening right upper lobe infiltrate. Atypical pulmonary edema versus pneumonia. Worsening congestive heart failure. The plan is for hemodialysis today and tomorrow. She remains on IV Lasix. Currently on ceftazidime per ID. We'll continue to titrate down the FiO2 while maintaining O2 saturations greater than 90%. We will continue to follow. I, the cosigning physician, performed a history & physical examination of the patient. Lungs sounds with crackles in the posterior bases right greater than left Maintaining good O2 saturations in the 90s on 4 L/m per nasal cannula. I discussed the assessment and plan of care with my nurse practitioner, Savanah Penaloza. I attest to the above note as dictated by her.
[2017-10-30] MEDS: SODIUM BICARBONATE TAB 650 MG TAB PO SCH ×2 (10:09→22:14)
[2017-10-30] MEDS: METOPROLOL TARTRATE 50 MG TAB PO SCH ×2 (10:09→21:59)
[2017-10-30] MEDS: amLODIPine 10 MG TAB PO SCH (10:10)
[2017-10-30] MEDS: NYSTATIN 100,000 UNIT/GM POWD 15 GM TOPICAL SCH ×2 (10:13→22:14)
[2017-10-30] MEDS: hydrALAZINE HCL 25 MG TAB PO SCH ×3 (10:14→22:12)
[2017-10-30] MEDS: FUROSEMIDE 10 MG/ML 10 ML VIAL IV SCH ×2 (10:59→21:27)
[2017-10-30 11:06] LABS: Glucose,Whole Blood 118 mg/dL (75-99)
[2017-10-30 11:12] LABS: Albumin 2.76 g/dL (3.80-4.90); Gamma Globulin 0.92 g/dL (0.70-1.50); Protein, Total 6.1 g/dL (6.2-8.2)
[2017-10-30] MEDS: INSULIN DETEMIR 100 UNIT/ML 10 ML VIAL SQ SCH (11:20)
[2017-10-30 12:25] LABS: Phosphorus 7.1 mg/dL (2.5-4.5)
[2017-10-30 12:56] LABS: Anisocytosis Slight; HCT 26.7 % (34.0-46.0); HGB 8.2 gm/dL (11.4-16.0); Hypochromasia Marked; MCH 26.7 pg (25.0-35.0); MCHC 30.6 g/dL (31.0-37.0); MCV 87.2 fL (80.0-100.0); Mean Platelet Volume 11.1; Platelet Count 128 k/uL (150-450); RBC 3.06 m/uL (3.80-5.40); RDW 16.6 % (11.5-15.5); WBC 8.7 k/uL (3.8-10.6)
[2017-10-30] MEDS ORDERED: LORazepam 1 MG TAB PO STA (13:49)
[2017-10-30 14:28] LABS: Calcium 8.4 mg/dL (8.4-10.2); Potassium 5.6 mmol/L (3.5-5.1)
[2017-10-30] MEDS: traMADol 50 MG TAB PO PRN (15:15)
[2017-10-30 15:59] LABS: Glucose,Whole Blood 116 mg/dL (75-99)
[2017-10-30 16:04] LABS: ABG Base Excess -6.6 mmol/L; ABG HCO3 22 mmol/L (21-25); ABG Oxygen Saturation 94.1 % (94-97); ABG PCO2 56 mmHg (35-45); ABG PO2 73 mmHg (83-108); ABG TCO2 23 mmol/L (19-24)
[2017-10-30] MEDS ORDERED: FUROSEMIDE 10 MG/ML 10 ML VIAL IV STA (16:13)
[2017-10-30] MEDS ORDERED: LIDOCAINE 1% INJ 10MG/ML (20 ML MDV) ONE (18:00)
[2017-10-30] MEDS ORDERED: HEPARIN SODIUM 1,000 UN/ML (10ML VL) ONE (18:00)
--- NOTE | 2017-10-30 18:25 | XR ---
EXAMINATION TYPE: XR chest 1V portable DATE OF EXAM: 10/30/2017 COMPARISON: 10/30/2017 at 7:00 AM HISTORY: Dialysis catheter placement TECHNIQUE: Single frontal view of the chest is obtained. FINDINGS: There is a right jugular catheter with the tip over the superior vena cava. There is right side PICC line catheter with tip over the superior vena cava. There is pulmonary vascular congestion and blunting of costophrenic angles. This is more on the right side. There are chest leads. IMPRESSION: Congestive heart failure with right pleural effusion. Heart failure is improved compared to the exam this morning. No pneumothorax.
[2017-10-30] MEDS ORDERED: LORazepam 2 MG/ML INJ IV PRN (19:00)
[2017-10-30 19:32] LABS: Appearance,Urine Turbid (Clear); Bacteria,Urine Many /hpf; Bilirubin,Urine Negative (Negative); Blood,Urine Large (Negative); Color,Urine Red; Glucose,Urine (UA) Trace (Negative); Granular Casts,Urine 129 /lpf (0); Ketones,Urine Negative (Negative); Leukocyte Esterase,Urine Large (Negative); Nitrite,Urine Negative (Negative); PH, Urine 5.5 (5.0-8.0); Protein,Urine 2+ (Negative); RBC,Urine 113 /hpf (0-5); Urobilinogen,Urine <2.0 mg/dL (<2.0); WBC,Urine >182 /hpf (0-5)
[2017-10-30 19:33] LABS: Specific Gravity,Urine 1.015 (1.001-1.035)
[2017-10-30 21:37] LABS: Glucose,Whole Blood 97 mg/dL (75-99)
--- NOTE | 2017-10-30 21:41 | PCN ---
PROCEDURE NOTE PREOPERATIVE DIAGNOSES: 1. Acute chronic failure. 2. Super obesity. 3. Respiratory failure. 4. Congestive heart failure. PROCEDURE: Ultrasound-guided triple-lumen dialysis catheter placed right jugular approach. PROCEDURE: This patient was seen in the intensive care unit. Right side of the neck and chest were prepped and draped in sterile manner. Ultrasound-guided micropuncture into the right jugular vein. Micropuncture guide was passed and then 4-Cypriot dilator advanced off the guidewire. Then we passed a regular guidewire and dilator was advanced and a temporary triple-lumen dialysis catheter placed on the top of the guidewire, flushed with heparin saline and hep-locked, secured with 3-0 nylon. Dressing applied. Patient tolerated the procedure well. PLAN: We will arrange for a chest x-ray placement. STEFFANIE / ARTN: [id number] /
[2017-10-30] MEDS: ATORVASTATIN 10 MG TAB PO SCH (22:12)
[2017-10-30] MEDS: ASPIRIN 81 MG PO SCH (22:13)
[2017-10-31 02:12] LABS: Hepatitis B Surface AB- Quant 3.5 mIU/mL
[2017-10-31] MEDS ORDERED: PROPOFOL 100 ML IV ONE ×2 (02:52→04:25)
[2017-10-31] MEDS ORDERED: NOREPINEPHRIN 4 MG-0.9% NS PMX 4 MG/250 ML ML IV ONE (03:41)
[2017-10-31 03:54] LABS: ABG HCO3 24 mmol/L (21-25); ABG Oxygen Saturation 93.5 % (94-97); ABG PCO2 56 mmHg (35-45); ABG PH 7.23 (7.35-7.45); ABG PO2 69 mmHg (83-108); ABG TCO2 25 mmol/L (19-24)
[2017-10-31] MEDS ORDERED: NOREPINEPHRINE 16 MG in DEXTROSE 5% IN WATER 250 ML IV SCH ×2 (04:15)
--- NOTE | 2017-10-31 04:17 | XR ---
INDICATION: Tube placement COMPARISON: CXR 10/30/17 FINDINGS: Single frontal view of the chest is provided. An endotracheal tube has been placed with tip 5 cm above the billy. An enteric tube has been placed extending to the proximal stomach. The proximal side-port of the enteric tube is located near the gastroesophageal junction. A right PICC and right internal jugular catheter sheath remain in stable position. There is stable mild cardiomegaly. Pulmonary vascular congestion and interstitial edema are not significantly changed. Layering bilateral pleural effusions appear stable. Atelectatic changes in the right lung appear increased. There is no pneumothorax. There are degenerative changes of the thoracic spine without evidence of acute osseous abnormality. IMPRESSION: 1. Endotracheal tube terminates 5 cm above the billy. 2. Enteric tube extends to the proximal stomach. The proximal side-port is located near the gastroesophageal junction. 3. Stable right PICC and right internal jugular catheter sheath. 4. Stable findings of congestive heart failure and layering pleural effusions. 5. Increased atelectatic changes in the right lung.
[2017-10-31 04:35] LABS: Anisocytosis Slight; Basophils % (A) 0 %; Eosinophils # (A) 0.1 k/uL (0-0.7); Eosinophils % (A) 2 %; HCT 25.5 % (34.0-46.0); HGB 7.6 gm/dL (11.4-16.0); Hypochromasia Marked; Lymphocytes # (A) 0.5 k/uL (1.0-4.8); Lymphocytes % (A) 6 %; MCH 25.3 pg (25.0-35.0); MCHC 29.7 g/dL (31.0-37.0); MCV 84.9 fL (80.0-100.0); Mean Platelet Volume 9.8; Monocytes # (A) 0.4 k/uL (0-1.0); Monocytes % (A) 4 %; Neutrophils # (A) 7.3 k/uL (1.3-7.7); Neutrophils % (A) 88 %; Platelet Count 116 k/uL (150-450); RDW 16.9 % (11.5-15.5); WBC 8.3 k/uL (3.8-10.6)
[2017-10-31 05:02] LABS: Albumin 2.8 g/dL (3.5-5.0); Calcium 8.4 mg/dL (8.4-10.2); Phosphorus 7.1 mg/dL (2.5-4.5); Potassium 4.6 mmol/L (3.5-5.1); Total Bilirubin 0.1 mg/dL (0.2-1.3); Total Protein 5.9 g/dL (6.3-8.2)
[2017-10-31 05:07] LABS: Vancomycin,Random 32.5 ug/mL
[2017-10-31] MEDS: PROPOFOL 1,000 MG in EMPTY BAG 1 BAG IV SCH ×4 (05:21→17:18)
[2017-10-31] MEDS ORDERED: INSULIN ASPART 100 UNIT/ML 1 ML 10 ML VIAL SQ SCH ×2 (07:30→08:45)
--- NOTE | 2017-10-31 07:42 | XR ---
EXAMINATION TYPE: XR chest 1V portable DATE OF EXAM: 10/31/2017 COMPARISON: 10/31/2018 HISTORY: Endotracheal tube placement TECHNIQUE: Single frontal view of the chest is obtained. FINDINGS: There is an increasing right-sided pleural effusion. Right-sided central venous catheter i s unchanged in position although shifted to the right upper mediastinal rotation and patient position ing. Endotracheal tube appropriately placed and enteric tube courses beyond the distal [id number]. Left-sided pleural effusion and bibasilar airspace disease is similar to the prior. No appreciable p neumothorax. IMPRESSION: Worsening right pleural effusion, stable left pleural effusion and stable bibasilar airs pace disease.
[2017-10-31 08:38] LABS: Glucose,Whole Blood 122 mg/dL (75-99)
--- NOTE | 2017-10-31 08:58 | P.PN ---
Subjective Progress Note Date: 10/31/17 Principal diagnosis: Respiratory failure Progress note dated 10/31/2017 66-year-old morbidly obese female with a history of heart failure. The patient was on the floor yesterday but developed worsening shortness of breath and was transferred over to the ICU. I chose to electively intubate her throughout the night. This happened probably in about 3:00 in the morning. Respiratory status was discussed declining significantly. Despite receiving hemodialysis, her respiratory status declined and we intubated her. This occurred on October 31. Currently she is on the ventilator on the volume assist control mode, her weight is set at 20 tidal volume 400 FiO2 100% and PEEP of 5. Arterial blood gases on those similar settings except for a rate of 16 show a PaO2 of 69. PaCO2 56 and a pH of 7.23. She is currently on a saline IV at 10 mL an hour, propofol at 45 mics per kilogram per minute, heparin via weightbase protocol and norepinephrine 5 mcg/m. She does have an arterial line in place and adequate IV access. Chest x-ray shows a pattern of worsening heart failure and bilateral effusions, right greater than left. In addition to heart failure respiratory failure and obesity, she has a history of stage III chronic kidney disease chronic anemia diabetes chronic lower extremity edema and cellulitis nonhealing foot ulcer and essential hypertension. Also, her lower extremity ulcerations were positive for Pseudomonas and Klebsiella. Her overall prognosis remains extremely poor. We will have to discuss CODE STATUS with the family. Objective - Vital Signs Vital signs: Vital Signs Temp 93.4 F L 10/31/17 08:15 Pulse 45 L 10/31/17 08:15 Resp 12 10/31/17 08:15 BP 131/63 10/31/17 08:15 Pulse Ox 99 10/31/17 08:15 Intake & Output 10/30/17 10/31/17 10/31/17 18:59 06:59 18:59 Intake Total 500 278.933 10 Output Total 500 261 15 Balance 0 17.933 -5 Weight 172.4 kg Intake: IV 190 10 0.9 190 10 Intake, IV Titration 500 88.933 Amount Heparin Sod,Pork in 0.45% 500 88.933 NaCl 25,000 unit In 0.45 % NaCl 1 500ml.bag @ 13. 344 UNITS/KG/HR 46 mls/hr IV .[id number] [facility] Rx#: [id number] Output: Urine 500 261 15 Other: Voiding Method Diaper Indwelling Catheter Incontinent - Exam No acute distress, sedated, with an orally placed endotracheal tube and NG tube. HEENT examination is grossly unremarkable. Mucous membranes are moist. Neck supple. Full range of motion. No adenopathy thyromegaly or neck vein distention. Cardiovascular examination reveals regular rhythm rate. S1-S2 normal. No S3 or S4. No discernible murmur noted. Heart sounds are very distant. Lungs reveal severely diminished breath sounds bilaterally, right greater than left. There are bilateral coarse rhonchi. Crackles are noted at both bases. No wheezes are appreciated. Abdomen soft bowel sounds are heard. No masses or tenderness. Extremities are intact. Chronic lower extremity edema is noted. She also is chronic venous stasis changes with hyperpigmentation. Heels are bandaged. Skin is without rash or lesion. Neurologic examination could not be assessed. - Labs CBC & Chem 7: 10/31/17 04:20 10/31/17 04:20 Labs: Abnormal Lab Results - Last 24 Hours (Table) 10/28/17 10/30/17 10/30/17 Range/Units 05:47 05:29 05:29 RBC 3.06 L (3.80-5.40) m/uL Hgb 8.2 L (11.4-16.0) gm/dL Hct 26.7 L (34.0-46.0) % MCHC 30.6 L (31.0-37.0) g/dL RDW 16.6 H (11.5-15.5) % Plt Count 128 L (150-450) k/uL Lymphocytes # (1.0-4.8) k/uL APTT (22.0-30.0) sec ABG pH (7.35-7.45) ABG pCO2 (35-45) mmHg ABG pO2 (83-108) mmHg ABG Total CO2 (19-24) mmol/L ABG O2 Saturation (94-97) % Potassium (3.5-5.1) mmol/L Chloride (98-107) mmol/L Carbon Dioxide (22-30) mmol/L BUN (7-17) mg/dL Creatinine (0.52-1.04) mg/dL Glucose (74-99) mg/dL POC Glucose (mg/dL) (75-99) mg/dL Plasma Lactic Acid Jamar (0.7-2.0) mmol/L Phosphorus 7.1 H (2.5-4.5) mg/dL Total Bilirubin (0.2-1.3) mg/dL Total Protein (6.3-8.2) g/dL Total Protein (PEP) 6.1 L (6.2-8.2) g/dL Albumin (3.5-5.0) g/dL Albumin (PEP) 2.76 L (3.80-4.90) g/dL Fwjqs-8-Qfrdqqjww 0.45 H (0.10-0.40) g/dL Wqvqo-2-Ipyfsfikf 0.59 L (0.60-1.00) g/dL Beta Globulins 1.38 H (0.60-1.30) g/dL Urine Appearance (Clear) Urine Protein (Negative) Urine Glucose (UA) (Negative) Urine Blood (Negative) Ur Leukocyte Esterase (Negative) Urine RBC (0-5) /hpf Urine WBC (0-5) /hpf Urine WBC Clumps (None) /hpf Urine Bacteria (None) /hpf 10/30/17 10/30/17 10/30/17 Range/Units 11:04 13:40 13:40 RBC (3.80-5.40) m/uL Hgb (11.4-16.0) gm/dL Hct (34.0-46.0) % MCHC (31.0-37.0) g/dL RDW (11.5-15.5) % Plt Count (150-450) k/uL Lymphocytes # (1.0-4.8) k/uL APTT 65.5 H (22.0-30.0) sec ABG pH (7.35-7.45) ABG pCO2 (35-45) mmHg ABG pO2 (83-108) mmHg ABG Total CO2 (19-24) mmol/L ABG O2 Saturation (94-97) % Potassium 5.6 H (3.5-5.1) mmol/L Chloride 113 H (98-107) mmol/L Carbon Dioxide 19 L (22-30) mmol/L BUN 81 H* (7-17) mg/dL Creatinine 3.85 H (0.52-1.04) mg/dL Glucose 107 H (74-99) mg/dL POC Glucose (mg/dL) 118 H (75-99) mg/dL Plasma Lactic Acid Jamar (0.7-2.0) mmol/L Phosphorus (2.5-4.5) mg/dL Total Bilirubin (0.2-1.3) mg/dL Total Protein (6.3-8.2) g/dL Total Protein (PEP) (6.2-8.2) g/dL Albumin (3.5-5.0) g/dL Albumin (PEP) (3.80-4.90) g/dL Ltshp-4-Qyihtkity (0.10-0.40) g/dL Nskta-7-Pmdxncufm (0.60-1.00) g/dL Beta Globulins (0.60-1.30) g/dL Urine Appearance (Clear) Urine Protein (Negative) Urine Glucose (UA) (Negative) Urine Blood (Negative) Ur Leukocyte Esterase (Negative) Urine RBC (0-5) /hpf Urine WBC (0-5) /hpf Urine WBC Clumps (None) /hpf Urine Bacteria (None) /hpf 10/30/17 10/30/17 10/30/17 Range/Units 15:56 16:02 18:45 RBC (3.80-5.40) m/uL Hgb (11.4-16.0) gm/dL Hct (34.0-46.0) % MCHC (31.0-37.0) g/dL RDW (11.5-15.5) % Plt Count (150-450) k/uL Lymphocytes # (1.0-4.8) k/uL APTT (22.0-30.0) sec ABG pH 7.20 L* (7.35-7.45) ABG pCO2 56 H (35-45) mmHg ABG pO2 73 L (83-108) mmHg ABG Total CO2 (19-24) mmol/L ABG O2 Saturation (94-97) % Potassium (3.5-5.1) mmol/L Chloride (98-107) mmol/L Carbon Dioxide (22-30) mmol/L BUN (7-17) mg/dL Creatinine (0.52-1.04) mg/dL Glucose (74-99) mg/dL POC Glucose (mg/dL) 116 H (75-99) mg/dL Plasma Lactic Acid Jamar (0.7-2.0) mmol/L Phosphorus (2.5-4.5) mg/dL Total Bilirubin (0.2-1.3) mg/dL Total Protein (6.3-8.2) g/dL Total Protein (PEP) (6.2-8.2) g/dL Albumin (3.5-5.0) g/dL Albumin (PEP) (3.80-4.90) g/dL Dmeft-8-Lecfuvtlt (0.10-0.40) g/dL Juqih-7-Tmrvpjdxb (0.60-1.00) g/dL Beta Globulins (0.60-1.30) g/dL Urine Appearance Turbid H (Clear) Urine Protein 2+ H (Negative) Urine Glucose (UA) Trace H (Negative) Urine Blood Large H (Negative) Ur Leukocyte Esterase Large H (Negative) Urine RBC 113 H (0-5) /hpf Urine WBC >182 H (0-5) /hpf Urine WBC Clumps Many H (None) /hpf Urine Bacteria Many H (None) /hpf 10/31/17 10/31/17 10/31/17 Range/Units 03:52 04:20 04:20 RBC 3.00 L (3.80-5.40) m/uL Hgb 7.6 L (11.4-16.0) gm/dL Hct 25.5 L (34.0-46.0) % MCHC 29.7 L (31.0-37.0) g/dL RDW 16.9 H (11.5-15.5) % Plt Count 116 L (150-450) k/uL Lymphocytes # 0.5 L (1.0-4.8) k/uL APTT (22.0-30.0) sec ABG pH 7.23 L (7.35-7.45) ABG pCO2 56 H (35-45) mmHg ABG pO2 69 L (83-108) mmHg ABG Total CO2 25 H (19-24) mmol/L ABG O2 Saturation 93.5 L (94-97) % Potassium (3.5-5.1) mmol/L Chloride 109 H (98-107) mmol/L Carbon Dioxide (22-30) mmol/L BUN 70 H (7-17) mg/dL Creatinine 3.60 H (0.52-1.04) mg/dL Glucose 105 H (74-99) mg/dL POC Glucose (mg/dL) (75-99) mg/dL Plasma Lactic Acid Jamar (0.7-2.0) mmol/L Phosphorus 7.1 H (2.5-4.5) mg/dL Total Bilirubin 0.1 L (0.2-1.3) mg/dL Total Protein 5.9 L (6.3-8.2) g/dL Total Protein (PEP) (6.2-8.2) g/dL Albumin 2.8 L (3.5-5.0) g/dL Albumin (PEP) (3.80-4.90) g/dL Txawm-9-Cdtkaganr (0.10-0.40) g/dL Yrdnn-9-Xurhmbobn (0.60-1.00) g/dL Beta Globulins (0.60-1.30) g/dL Urine Appearance (Clear) Urine Protein (Negative) Urine Glucose (UA) (Negative) Urine Blood (Negative) Ur Leukocyte Esterase (Negative) Urine RBC (0-5) /hpf Urine WBC (0-5) /hpf Urine WBC Clumps (None) /hpf Urine Bacteria (None) /hpf 10/31/17 10/31/17 10/31/17 Range/Units 04:20 04:20 08:37 RBC (3.80-5.40) m/uL Hgb (11.4-16.0) gm/dL Hct (34.0-46.0) % MCHC (31.0-37.0) g/dL RDW (11.5-15.5) % Plt Count (150-450) k/uL Lymphocytes # (1.0-4.8) k/uL APTT 74.6 H (22.0-30.0) sec ABG pH (7.35-7.45) ABG pCO2 (35-45) mmHg ABG pO2 (83-108) mmHg ABG Total CO2 (19-24) mmol/L ABG O2 Saturation (94-97) % Potassium (3.5-5.1) mmol/L Chloride (98-107) mmol/L Carbon Dioxide (22-30) mmol/L BUN (7-17) mg/dL Creatinine (0.52-1.04) mg/dL Glucose (74-99) mg/dL POC Glucose (mg/dL) 122 H (75-99) mg/dL Plasma Lactic Acid Jamar <0.5 L (0.7-2.0) mmol/L Phosphorus (2.5-4.5) mg/dL Total Bilirubin (0.2-1.3) mg/dL Total Protein (6.3-8.2) g/dL Total Protein (PEP) (6.2-8.2) g/dL Albumin (3.5-5.0) g/dL Albumin (PEP) (3.80-4.90) g/dL Larmu-0-Kvlnbpucq (0.10-0.40) g/dL Jjkqm-1-Bluzqoivn (0.60-1.00) g/dL Beta Globulins (0.60-1.30) g/dL Urine Appearance (Clear) Urine Protein (Negative) Urine Glucose (UA) (Negative) Urine Blood (Negative) Ur Leukocyte Esterase (Negative) Urine RBC (0-5) /hpf Urine WBC (0-5) /hpf Urine WBC Clumps (None) /hpf Urine Bacteria (None) /hpf Microbiology - Last 24 Hours (Table) 10/30/17 18:45 Urine Culture - Preliminary Urine,Catheterized 10/26/17 17:30 Blood Culture - Preliminary Blood No Growth after 96 hours 10/25/17 18:17 Blood Culture Gram Stain - Final Blood Blood Culture - Final Staphylococcus epidermidis Assessment and Plan Assessment: Assessment Hypoxemic respiratory failure, likely related to underlying CHF and bilateral pleural effusions, requiring intubation and mechanical ventilation on October 31 Morbid obesity Chronic stage III kidney disease, with recent initiation of hemodialysis Anemia of chronic disease and of chronic renal failure Diabetes mellitus Chronic lower extremity edema Nonhealing ulcers of the lower semis History of hypertension Cellulitis of her extremities secondary to both Pseudomonas and Klebsiella Plan: Plan dated 10/31/2017 The patient's vent settings were adjusted slightly. The rate was increased from 16-20. The patient will have her PEEP increased to see if we can reduce the FiO2. In addition, the patient will have daily chest x-rays and labs. She is on propofol for sedation heparin via weightbase protocol and norepinephrine for blood pressure support. She remains on updrafts every 4 and antibiotics. White count is 8.3 hemoglobin 7.6 hematocrit 25.5 and platelet count 116,000. Sodium and potassium are normal. Chloride 109, CO2 24, anion gap normal and BUN and creatinine were 70 and 3.60. Urinalysis is likely consistent with a urinary tract infection. The patient remains on vancomycin and Fortaz. Critical care time 34 minutes Time with Patient: Greater than 30
--- NOTE | 2017-10-31 09:03 | P.PN ---
Subjective patient is seen in follow-up for acute kidney injury on chronic kidney disease. Patient has chronic kidney disease stage III with baseline creatinine in the range of 1.8-2.3 secondary to diabetic kidney disease. Creatinine was 3.5 on October 30. She was oliguric and volume overloaded. Patient was started on hemodialysis on October 30 and had 2 L of ultrafiltration. She is maintained on Lasix 80 mg IV twice daily as well - urine output about 25 mL per hour. Vancomycin level is high at 35.1 10/29; 32.5 today. Currently intubated. Requiring 5 mics of Levophed. Vital signs are stable. General: The patient appeared well nourished and normally developed. HEENT: Head exam is unremarkable. Neck is without jugular venous distension. Intubated. LUNGS: Breath sounds decreased. HEART: Rate and Rhythm are regular. First and second heart sounds normal. No murmurs, rubs or gallops. ABDOMEN: Abdominal exam reveals normal bowel sounds. Non-tender and non- distended. No evidence of peritonitis. EXTREMITITES: 1+ edema. Objective - Vital Signs Vital signs: Vital Signs Temp 93.4 F L 10/31/17 08:15 Pulse 45 L 10/31/17 08:15 Resp 12 10/31/17 08:15 BP 131/63 10/31/17 08:15 Pulse Ox 99 10/31/17 08:15 Intake & Output 10/30/17 10/31/17 10/31/17 18:59 06:59 18:59 Intake Total 500 278.933 10 Output Total 500 261 15 Balance 0 17.933 -5 Weight 172.4 kg Intake: IV 190 10 0.9 190 10 Intake, IV Titration 500 88.933 Amount Heparin Sod,Pork in 0.45% 500 88.933 NaCl 25,000 unit In 0.45 % NaCl 1 500ml.bag @ 13. 344 UNITS/KG/HR 46 mls/hr IV .[id number] [facility] Rx#: [id number] Output: Urine 500 261 15 Other: Voiding Method Diaper Indwelling Catheter Incontinent - Labs CBC & Chem 7: 10/31/17 04:20 10/31/17 04:20 Labs: Abnormal Lab Results - Last 24 Hours (Table) 10/28/17 10/30/17 10/30/17 Range/Units 05:47 05:29 05:29 RBC 3.06 L (3.80-5.40) m/uL Hgb 8.2 L (11.4-16.0) gm/dL Hct 26.7 L (34.0-46.0) % MCHC 30.6 L (31.0-37.0) g/dL RDW 16.6 H (11.5-15.5) % Plt Count 128 L (150-450) k/uL Lymphocytes # (1.0-4.8) k/uL APTT (22.0-30.0) sec ABG pH (7.35-7.45) ABG pCO2 (35-45) mmHg ABG pO2 (83-108) mmHg ABG Total CO2 (19-24) mmol/L ABG O2 Saturation (94-97) % Potassium (3.5-5.1) mmol/L Chloride (98-107) mmol/L Carbon Dioxide (22-30) mmol/L BUN (7-17) mg/dL Creatinine (0.52-1.04) mg/dL Glucose (74-99) mg/dL POC Glucose (mg/dL) (75-99) mg/dL Plasma Lactic Acid Jamar (0.7-2.0) mmol/L Phosphorus 7.1 H (2.5-4.5) mg/dL Total Bilirubin (0.2-1.3) mg/dL Total Protein (6.3-8.2) g/dL Total Protein (PEP) 6.1 L (6.2-8.2) g/dL Albumin (3.5-5.0) g/dL Albumin (PEP) 2.76 L (3.80-4.90) g/dL Qdlph-2-Cnogqlxgh 0.45 H (0.10-0.40) g/dL Tvfro-6-Uzzxfzwhc 0.59 L (0.60-1.00) g/dL Beta Globulins 1.38 H (0.60-1.30) g/dL Urine Appearance (Clear) Urine Protein (Negative) Urine Glucose (UA) (Negative) Urine Blood (Negative) Ur Leukocyte Esterase (Negative) Urine RBC (0-5) /hpf Urine WBC (0-5) /hpf Urine WBC Clumps (None) /hpf Urine Bacteria (None) /hpf 10/30/17 10/30/17 10/30/17 Range/Units 11:04 13:40 13:40 RBC (3.80-5.40) m/uL Hgb (11.4-16.0) gm/dL Hct (34.0-46.0) % MCHC (31.0-37.0) g/dL RDW (11.5-15.5) % Plt Count (150-450) k/uL Lymphocytes # (1.0-4.8) k/uL APTT 65.5 H (22.0-30.0) sec ABG pH (7.35-7.45) ABG pCO2 (35-45) mmHg ABG pO2 (83-108) mmHg ABG Total CO2 (19-24) mmol/L ABG O2 Saturation (94-97) % Potassium 5.6 H (3.5-5.1) mmol/L Chloride 113 H (98-107) mmol/L Carbon Dioxide 19 L (22-30) mmol/L BUN 81 H* (7-17) mg/dL Creatinine 3.85 H (0.52-1.04) mg/dL Glucose 107 H (74-99) mg/dL POC Glucose (mg/dL) 118 H (75-99) mg/dL Plasma Lactic Acid Jamar (0.7-2.0) mmol/L Phosphorus (2.5-4.5) mg/dL Total Bilirubin (0.2-1.3) mg/dL Total Protein (6.3-8.2) g/dL Total Protein (PEP) (6.2-8.2) g/dL Albumin (3.5-5.0) g/dL Albumin (PEP) (3.80-4.90) g/dL Dbpin-9-Ciyiebkwo (0.10-0.40) g/dL Xuvpn-0-Meedqeuex (0.60-1.00) g/dL Beta Globulins (0.60-1.30) g/dL Urine Appearance (Clear) Urine Protein (Negative) Urine Glucose (UA) (Negative) Urine Blood (Negative) Ur Leukocyte Esterase (Negative) Urine RBC (0-5) /hpf Urine WBC (0-5) /hpf Urine WBC Clumps (None) /hpf Urine Bacteria (None) /hpf 10/30/17 10/30/17 10/30/17 Range/Units 15:56 16:02 18:45 RBC (3.80-5.40) m/uL Hgb (11.4-16.0) gm/dL Hct (34.0-46.0) % MCHC (31.0-37.0) g/dL RDW (11.5-15.5) % Plt Count (150-450) k/uL Lymphocytes # (1.0-4.8) k/uL APTT (22.0-30.0) sec ABG pH 7.20 L* (7.35-7.45) ABG pCO2 56 H (35-45) mmHg ABG pO2 73 L (83-108) mmHg ABG Total CO2 (19-24) mmol/L ABG O2 Saturation (94-97) % Potassium (3.5-5.1) mmol/L Chloride (98-107) mmol/L Carbon Dioxide (22-30) mmol/L BUN (7-17) mg/dL Creatinine (0.52-1.04) mg/dL Glucose (74-99) mg/dL POC Glucose (mg/dL) 116 H (75-99) mg/dL Plasma Lactic Acid Jamar (0.7-2.0) mmol/L Phosphorus (2.5-4.5) mg/dL Total Bilirubin (0.2-1.3) mg/dL Total Protein (6.3-8.2) g/dL Total Protein (PEP) (6.2-8.2) g/dL Albumin (3.5-5.0) g/dL Albumin (PEP) (3.80-4.90) g/dL Rzsfd-4-Egpsweyie (0.10-0.40) g/dL Rfiyb-3-Ubzgouwbi (0.60-1.00) g/dL Beta Globulins (0.60-1.30) g/dL Urine Appearance Turbid H (Clear) Urine Protein 2+ H (Negative) Urine Glucose (UA) Trace H (Negative) Urine Blood Large H (Negative) Ur Leukocyte Esterase Large H (Negative) Urine RBC 113 H (0-5) /hpf Urine WBC >182 H (0-5) /hpf Urine WBC Clumps Many H (None) /hpf Urine Bacteria Many H (None) /hpf 10/31/17 10/31/17 10/31/17 Range/Units 03:52 04:20 04:20 RBC 3.00 L (3.80-5.40) m/uL Hgb 7.6 L (11.4-16.0) gm/dL Hct 25.5 L (34.0-46.0) % MCHC 29.7 L (31.0-37.0) g/dL RDW 16.9 H (11.5-15.5) % Plt Count 116 L (150-450) k/uL Lymphocytes # 0.5 L (1.0-4.8) k/uL APTT (22.0-30.0) sec ABG pH 7.23 L (7.35-7.45) ABG pCO2 56 H (35-45) mmHg ABG pO2 69 L (83-108) mmHg ABG Total CO2 25 H (19-24) mmol/L ABG O2 Saturation 93.5 L (94-97) % Potassium (3.5-5.1) mmol/L Chloride 109 H (98-107) mmol/L Carbon Dioxide (22-30) mmol/L BUN 70 H (7-17) mg/dL Creatinine 3.60 H (0.52-1.04) mg/dL Glucose 105 H (74-99) mg/dL POC Glucose (mg/dL) (75-99) mg/dL Plasma Lactic Acid Jamar (0.7-2.0) mmol/L Phosphorus 7.1 H (2.5-4.5) mg/dL Total Bilirubin 0.1 L (0.2-1.3) mg/dL Total Protein 5.9 L (6.3-8.2) g/dL Total Protein (PEP) (6.2-8.2) g/dL Albumin 2.8 L (3.5-5.0) g/dL Albumin (PEP) (3.80-4.90) g/dL Raact-6-Arsbvzkoy (0.10-0.40) g/dL Ubhtb-2-Pfreyczor (0.60-1.00) g/dL Beta Globulins (0.60-1.30) g/dL Urine Appearance (Clear) Urine Protein (Negative) Urine Glucose (UA) (Negative) Urine Blood (Negative) Ur Leukocyte Esterase (Negative) Urine RBC (0-5) /hpf Urine WBC (0-5) /hpf Urine WBC Clumps (None) /hpf Urine Bacteria (None) /hpf 10/31/17 10/31/17 10/31/17 Range/Units 04:20 04:20 08:37 RBC (3.80-5.40) m/uL Hgb (11.4-16.0) gm/dL Hct (34.0-46.0) % MCHC (31.0-37.0) g/dL RDW (11.5-15.5) % Plt Count (150-450) k/uL Lymphocytes # (1.0-4.8) k/uL APTT 74.6 H (22.0-30.0) sec ABG pH (7.35-7.45) ABG pCO2 (35-45) mmHg ABG pO2 (83-108) mmHg ABG Total CO2 (19-24) mmol/L ABG O2 Saturation (94-97) % Potassium (3.5-5.1) mmol/L Chloride (98-107) mmol/L Carbon Dioxide (22-30) mmol/L BUN (7-17) mg/dL Creatinine (0.52-1.04) mg/dL Glucose (74-99) mg/dL POC Glucose (mg/dL) 122 H (75-99) mg/dL Plasma Lactic Acid Jamar <0.5 L (0.7-2.0) mmol/L Phosphorus (2.5-4.5) mg/dL Total Bilirubin (0.2-1.3) mg/dL Total Protein (6.3-8.2) g/dL Total Protein (PEP) (6.2-8.2) g/dL Albumin (3.5-5.0) g/dL Albumin (PEP) (3.80-4.90) g/dL Rxbdr-5-Ydjehblew (0.10-0.40) g/dL Hguna-6-Adxxotzeq (0.60-1.00) g/dL Beta Globulins (0.60-1.30) g/dL Urine Appearance (Clear) Urine Protein (Negative) Urine Glucose (UA) (Negative) Urine Blood (Negative) Ur Leukocyte Esterase (Negative) Urine RBC (0-5) /hpf Urine WBC (0-5) /hpf Urine WBC Clumps (None) /hpf Urine Bacteria (None) /hpf Microbiology - Last 24 Hours (Table) 10/30/17 18:45 Urine Culture - Preliminary Urine,Catheterized 10/26/17 17:30 Blood Culture - Preliminary Blood No Growth after 96 hours 10/25/17 18:17 Blood Culture Gram Stain - Final Blood Blood Culture - Final Staphylococcus epidermidis Assessment and Plan Plan: Assessment: 1. Acute kidney injury secondary to ATN secondary to cardiorenal syndrome and vancomycin toxicity. Creatinine up to 3.85 on October 30 - started on hemodialysis due to oliguria and hyperkalemia. Ultrasound from April 2017 was benign. Vancomycin discontinued. 2. Volume overload. 3. Diastolic CHF with mild pulmonary hypertension. 4. Anemia. iron replete. Component of chronic kidney disease. Maintained on Aranesp. 5. Insulin-dependent diabetes mellitus. 6. Coag-negative staph bacteremia. Possible contamination. 7. Metabolic acidosis secondary to acute kidney injury. 8. Chest pain. Cardiology following. Currently maintained on heparin drip. 9. Hypertension with chronic kidney disease. Controlled. 10. Chronic kidney disease stage III with baseline creatinine in the range of 1.8-2.3. Etiology is diabetic kidney disease and cardiorenal syndrome. 11. Proteinuria. Likely due to diabetic kidney disease. Serologies negative so far. 12. Hyperkalemia secondary to acute kidney injury, metabolic acidosis and use of Aldactone. Aldactone discontinued on October 29. Improved. 13. Hyperphosphatemia secondary to acute kidney injury. Plan: Second treatment of hemodialysis today. Avoid nephrotoxic agents. Continue to monitor renal function and urine output closely. Maintain Lasix 80 mg IV twice daily. Add phosphate binder when able to tolerate oral meds. Wean vasopressors and FiO2.
[2017-10-31] MEDS ORDERED: CISATRACURIUM 2 MG/ML 5 ML VIAL IV ONE (09:14)
[2017-10-31] MEDS ORDERED: CISATRACURIUM 2 MG/ML 5 ML VIAL IV STA (09:30)
[2017-10-31] MEDS: PANTOPRAZOLE 40 MG TABLET PO SCH (09:40)
--- NOTE | 2017-10-31 09:53 | CONS ---
DATE OF CONSULTATION: 10/31/2017 A 66-year-old female, I was called in by Dr. Pedersen for placement of urgent dialysis catheter. Patient has acute chronic renal failure. The patient has high potassium, super obesity. MEDICAL HISTORY: History of diabetes mellitus, hypertension, osteoarthritis, renal disease and super obesity. PHYSICAL EXAMINATION: The patient was seen in her room. Chest has bilateral rhonchi. First and second sound is present. 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 The patient had some superficial ulcers to both lower extremities. PLAN: Placement of the dialysis catheter. Risks and complications discussed. MMODL / IJN: [id number] / MTDTrae
--- NOTE | 2017-10-31 10:15 | PCN ---
PROCEDURE NOTE PROCEDURE: Left radial arterial line. PREOPERATIVE DIAGNOSIS: Frequent blood gases and frequent blood draws. POSTOPERATIVE DIAGNOSIS: Frequent blood gases and frequent blood draws. ARTERIAL LINE PLACEMENT: Indications: Hemodynamic monitoring. A time-out was completed verifying correct patient, procedure, site, positioning, and implant(s) or special equipment if applicable. Timothy's test was performed to ensure adequate perfusion. The patient's left wrist was prepped and draped in sterile fashion. 1% Lidocaine was used to anesthetize the area. An 18G Arrow arterial line was introduced into the radial artery. The catheter was threaded over the guide wire and the needle was removed with appropriate pulsatile blood return. Blood loss was minimal. The catheter was then sutured in place to the skin and a sterile dressing applied. Perfusion to the extremity distal to the point of catheter insertion was checked and found to be adequate. The patient tolerated the procedure well and there were no complications. Left radial artery was employed. The catheter was sutured in place. There was good blood return and blood pressure interpretation and reading. Sterile dressing was applied by the nurse after the catheter was sutured in place. MMODL / IJN: [id number] /
[2017-10-31] MEDS: INSULIN DETEMIR 100 UNIT/ML 10 ML VIAL SQ SCH (10:31)
[2017-10-31] MEDS: PANTOPRAZOLE 40 MG/10 ML VIAL IVP SCH (10:34)
[2017-10-31] MEDS: SODIUM BICARBONATE TAB 650 MG TAB PO SCH ×2 (10:34→21:04)
[2017-10-31] MEDS: NYSTATIN 100,000 UNIT/GM POWD 15 GM TOPICAL SCH ×2 (10:34→21:04)
[2017-10-31] MEDS: ERGOCALCIFEROL 50,000 UNIT CAP PO SCH (10:35)
--- NOTE | 2017-10-31 11:41 | P.PN ---
Subjective Progress Note Date: 10/31/17 Principal diagnosis: Acute on chronic respiratory failure Patient was seen and examined. Reports of agitation overnight, patient taking her BiPAP off intermittently. Transferred to ICU. She was offered elective intubation and agreed. Her vent settings are tidal volume 400, rate of 20, PEEP of 8 FiO2 of 70. Her ABG this morning shows a pH of 7.23, pCO2 of 56, bicarb of 24. Her lactic acid is less than 0.5. Her vital signs remained stable with a blood pressure of 141/60, mean arterial pressure of 87, pulse rate of 46 on Levophed 5 mcg. She is on ceftazadine, for positive wound cultures showing Klebsiella oxytocin, Pseudomonas aeruginosa. Objective - Vital Signs Vital signs: Vital Signs Temp 98 F 10/31/17 04:00 Pulse 46 L 10/31/17 07:00 Resp 20 10/31/17 07:00 BP 141/60 10/31/17 07:00 Pulse Ox 100 10/31/17 07:00 Intake & Output 10/30/17 10/31/17 10/31/17 18:59 06:59 18:59 Intake Total 500 278.933 10 Output Total 500 261 15 Balance 0 17.933 -5 Weight 172.4 kg Intake: IV 190 10 0.9 190 10 Intake, IV Titration 500 88.933 Amount Heparin Sod,Pork in 0.45% 500 88.933 NaCl 25,000 unit In 0.45 % NaCl 1 500ml.bag @ 13. 344 UNITS/KG/HR 46 mls/hr IV .[id number] [facility] Rx#: [id number] Output: Urine 500 261 15 Other: Voiding Method Diaper Indwelling Catheter Incontinent - Exam General: morbidly obese, RASS - 5, appears at stated age, on ventilator setting RR 20 PEEP 8 FiO2 70 Derm: warm, dry Head: atraumatic, normocephalic, symmetric Eyes: EOMI, no lid lag, anicteric sclera Mouth: no lip lesion, mucus membranes moist Cardiovascular: S1S2 reg, systolic murmur, bradycardic Lungs: Coarse breath sounds bilaterally, no rhonchi, no rales , labored breathing Abdominal: soft, nontender to palpation, no guarding, no appreciable organomegaly, obese Ext: 2+ lower extremity edema bilaterally, no contractures. Chronic venous stasis BL LE. - Labs CBC & Chem 7: 10/31/17 04:20 10/31/17 04:20 Labs: Abnormal Lab Results - Last 24 Hours (Table) 10/28/17 10/30/17 10/30/17 Range/Units 05:47 05:29 05:29 RBC 3.06 L (3.80-5.40) m/uL Hgb 8.2 L (11.4-16.0) gm/dL Hct 26.7 L (34.0-46.0) % MCHC 30.6 L (31.0-37.0) g/dL RDW 16.6 H (11.5-15.5) % Plt Count 128 L (150-450) k/uL Lymphocytes # (1.0-4.8) k/uL APTT (22.0-30.0) sec ABG pH (7.35-7.45) ABG pCO2 (35-45) mmHg ABG pO2 (83-108) mmHg ABG Total CO2 (19-24) mmol/L ABG O2 Saturation (94-97) % Potassium (3.5-5.1) mmol/L Chloride (98-107) mmol/L Carbon Dioxide (22-30) mmol/L BUN (7-17) mg/dL Creatinine (0.52-1.04) mg/dL Glucose (74-99) mg/dL POC Glucose (mg/dL) (75-99) mg/dL Plasma Lactic Acid Jamar (0.7-2.0) mmol/L Phosphorus 7.1 H (2.5-4.5) mg/dL Total Bilirubin (0.2-1.3) mg/dL Total Protein (6.3-8.2) g/dL Total Protein (PEP) 6.1 L (6.2-8.2) g/dL Albumin (3.5-5.0) g/dL Albumin (PEP) 2.76 L (3.80-4.90) g/dL Kthie-7-Aazpyongq 0.45 H (0.10-0.40) g/dL Splwj-2-Xjlnafibr 0.59 L (0.60-1.00) g/dL Beta Globulins 1.38 H (0.60-1.30) g/dL Urine Appearance (Clear) Urine Protein (Negative) Urine Glucose (UA) (Negative) Urine Blood (Negative) Ur Leukocyte Esterase (Negative) Urine RBC (0-5) /hpf Urine WBC (0-5) /hpf Urine WBC Clumps (None) /hpf Urine Bacteria (None) /hpf 10/30/17 10/30/17 10/30/17 Range/Units 11:04 13:40 13:40 RBC (3.80-5.40) m/uL Hgb (11.4-16.0) gm/dL Hct (34.0-46.0) % MCHC (31.0-37.0) g/dL RDW (11.5-15.5) % Plt Count (150-450) k/uL Lymphocytes # (1.0-4.8) k/uL APTT 65.5 H (22.0-30.0) sec ABG pH (7.35-7.45) ABG pCO2 (35-45) mmHg ABG pO2 (83-108) mmHg ABG Total CO2 (19-24) mmol/L ABG O2 Saturation (94-97) % Potassium 5.6 H (3.5-5.1) mmol/L Chloride 113 H (98-107) mmol/L Carbon Dioxide 19 L (22-30) mmol/L BUN 81 H* (7-17) mg/dL Creatinine 3.85 H (0.52-1.04) mg/dL Glucose 107 H (74-99) mg/dL POC Glucose (mg/dL) 118 H (75-99) mg/dL Plasma Lactic Acid Jamar (0.7-2.0) mmol/L Phosphorus (2.5-4.5) mg/dL Total Bilirubin (0.2-1.3) mg/dL Total Protein (6.3-8.2) g/dL Total Protein (PEP) (6.2-8.2) g/dL Albumin (3.5-5.0) g/dL Albumin (PEP) (3.80-4.90) g/dL Hldal-5-Xfdxcwnij (0.10-0.40) g/dL Bvczf-2-Mppypntdz (0.60-1.00) g/dL Beta Globulins (0.60-1.30) g/dL Urine Appearance (Clear) Urine Protein (Negative) Urine Glucose (UA) (Negative) Urine Blood (Negative) Ur Leukocyte Esterase (Negative) Urine RBC (0-5) /hpf Urine WBC (0-5) /hpf Urine WBC Clumps (None) /hpf Urine Bacteria (None) /hpf 10/30/17 10/30/17 10/30/17 Range/Units 15:56 16:02 18:45 RBC (3.80-5.40) m/uL Hgb (11.4-16.0) gm/dL Hct (34.0-46.0) % MCHC (31.0-37.0) g/dL RDW (11.5-15.5) % Plt Count (150-450) k/uL Lymphocytes # (1.0-4.8) k/uL APTT (22.0-30.0) sec ABG pH 7.20 L* (7.35-7.45) ABG pCO2 56 H (35-45) mmHg ABG pO2 73 L (83-108) mmHg ABG Total CO2 (19-24) mmol/L ABG O2 Saturation (94-97) % Potassium (3.5-5.1) mmol/L Chloride (98-107) mmol/L Carbon Dioxide (22-30) mmol/L BUN (7-17) mg/dL Creatinine (0.52-1.04) mg/dL Glucose (74-99) mg/dL POC Glucose (mg/dL) 116 H (75-99) mg/dL Plasma Lactic Acid Jamar (0.7-2.0) mmol/L Phosphorus (2.5-4.5) mg/dL Total Bilirubin (0.2-1.3) mg/dL Total Protein (6.3-8.2) g/dL Total Protein (PEP) (6.2-8.2) g/dL Albumin (3.5-5.0) g/dL Albumin (PEP) (3.80-4.90) g/dL Oidsc-6-Fksagvrhv (0.10-0.40) g/dL Cwizc-0-Vkphqhvzu (0.60-1.00) g/dL Beta Globulins (0.60-1.30) g/dL Urine Appearance Turbid H (Clear) Urine Protein 2+ H (Negative) Urine Glucose (UA) Trace H (Negative) Urine Blood Large H (Negative) Ur Leukocyte Esterase Large H (Negative) Urine RBC 113 H (0-5) /hpf Urine WBC >182 H (0-5) /hpf Urine WBC Clumps Many H (None) /hpf Urine Bacteria Many H (None) /hpf 10/31/17 10/31/17 10/31/17 Range/Units 03:52 04:20 04:20 RBC 3.00 L (3.80-5.40) m/uL Hgb 7.6 L (11.4-16.0) gm/dL Hct 25.5 L (34.0-46.0) % MCHC 29.7 L (31.0-37.0) g/dL RDW 16.9 H (11.5-15.5) % Plt Count 116 L (150-450) k/uL Lymphocytes # 0.5 L (1.0-4.8) k/uL APTT (22.0-30.0) sec ABG pH 7.23 L (7.35-7.45) ABG pCO2 56 H (35-45) mmHg ABG pO2 69 L (83-108) mmHg ABG Total CO2 25 H (19-24) mmol/L ABG O2 Saturation 93.5 L (94-97) % Potassium (3.5-5.1) mmol/L Chloride 109 H (98-107) mmol/L Carbon Dioxide (22-30) mmol/L BUN 70 H (7-17) mg/dL Creatinine 3.60 H (0.52-1.04) mg/dL Glucose 105 H (74-99) mg/dL POC Glucose (mg/dL) (75-99) mg/dL Plasma Lactic Acid Jamar (0.7-2.0) mmol/L Phosphorus 7.1 H (2.5-4.5) mg/dL Total Bilirubin 0.1 L (0.2-1.3) mg/dL Total Protein 5.9 L (6.3-8.2) g/dL Total Protein (PEP) (6.2-8.2) g/dL Albumin 2.8 L (3.5-5.0) g/dL Albumin (PEP) (3.80-4.90) g/dL Maeqy-6-Dsxdihihj (0.10-0.40) g/dL Fakqe-5-Rbdxvpolc (0.60-1.00) g/dL Beta Globulins (0.60-1.30) g/dL Urine Appearance (Clear) Urine Protein (Negative) Urine Glucose (UA) (Negative) Urine Blood (Negative) Ur Leukocyte Esterase (Negative) Urine RBC (0-5) /hpf Urine WBC (0-5) /hpf Urine WBC Clumps (None) /hpf Urine Bacteria (None) /hpf 10/31/17 10/31/17 Range/Units 04:20 04:20 RBC (3.80-5.40) m/uL Hgb (11.4-16.0) gm/dL Hct (34.0-46.0) % MCHC (31.0-37.0) g/dL RDW (11.5-15.5) % Plt Count (150-450) k/uL Lymphocytes # (1.0-4.8) k/uL APTT 74.6 H (22.0-30.0) sec ABG pH (7.35-7.45) ABG pCO2 (35-45) mmHg ABG pO2 (83-108) mmHg ABG Total CO2 (19-24) mmol/L ABG O2 Saturation (94-97) % Potassium (3.5-5.1) mmol/L Chloride (98-107) mmol/L Carbon Dioxide (22-30) mmol/L BUN (7-17) mg/dL Creatinine (0.52-1.04) mg/dL Glucose (74-99) mg/dL POC Glucose (mg/dL) (75-99) mg/dL Plasma Lactic Acid Jamar <0.5 L (0.7-2.0) mmol/L Phosphorus (2.5-4.5) mg/dL Total Bilirubin (0.2-1.3) mg/dL Total Protein (6.3-8.2) g/dL Total Protein (PEP) (6.2-8.2) g/dL Albumin (3.5-5.0) g/dL Albumin (PEP) (3.80-4.90) g/dL Oobod-8-Wmhamwbvp (0.10-0.40) g/dL Legne-9-Oeftvhgxh (0.60-1.00) g/dL Beta Globulins (0.60-1.30) g/dL Urine Appearance (Clear) Urine Protein (Negative) Urine Glucose (UA) (Negative) Urine Blood (Negative) Ur Leukocyte Esterase (Negative) Urine RBC (0-5) /hpf Urine WBC (0-5) /hpf Urine WBC Clumps (None) /hpf Urine Bacteria (None) /hpf Microbiology - Last 24 Hours (Table) 10/30/17 18:45 Urine Culture - Preliminary Urine,Catheterized 10/26/17 17:30 Blood Culture - Preliminary Blood No Growth after 96 hours 10/25/17 18:17 Blood Culture Gram Stain - Final Blood Blood Culture - Final Staphylococcus epidermidis Assessment and Plan Assessment: Assessment 66-year-old female with past medical history of heart failure, CKG, diabetes, hypertension, hyperlipidemia presents the ED for chest pain and shortness of breath. She is admitted to rule out PE and for diuresing. Plan 1. Acute on Chronic Respiratory failure: 2/2 CHF exacerbation and fluid overload from CKD. Trop < 0.012 x 2, CKMB negative 10/29, EKG shows NSR. Elevated D-dimer, high risk for PE. V/Q scan attempted twice, patient unable to tolerate. Continue Heparin drip for now, V/Q would not be specific given her abnormal CXR. Continue diuresing with IV Lasix as per Cardiology. Chest x-ray this morning shows worsening right pleural effusion, stable left pleural effusion and stable airspace disease. Dialysis was initiated overnight, plans to repeat today. Repeat ABG this morning is slightly improved with a pH of 7.23 , pCO2 of 56, HCO3 24 showing acute primary respiratory acidosis. Patient was electively intubated on 10/31/2017, will follow Pulm for vent titration to decrease FiO2. FU CXR in the AM, Pulmonology, Nephrology, Cardiology 2. Hyperkalemia: K 5.to 4.6. Resolved since starting dialysis. Holding Aldactone and Losartan. Likely related to wosening CKD. FU daily BMP 3. CHF exacerbation: Echo shows EF 50-55%. Continue Lasix 80 mg IV BID and HD per Nephro. Continue Metoprolol 50 mg PO BID. Holding Losartan and Aldactone due to worsening CKD and hyperK. CXR shows worsening R pleural effusion, likely related to CHF. Monitor Ins and Outs. Daily weights. K > 4 Mg > 2. FU Cardiology and Nephrology 4. Bacteremia: BCx 10 show S. epidermidis. Repeat BCx 96H no growth. UA shows large LE, UCx showed mixed colonies. WCx shows K. oxytoca and P. aeruginosa. Chest x-ray showing possible right upper lobe infiltrate. Patient currently on Ceftazadine IV, Vancomycin IV DC'd. No fever or leukocytosis. FU ID 5. Anemia: Likely due to CHF and CKD. Hg 7.6 Hct 25.5 MCV 84.9. s/p 1 unit PRBC. Watch as patient is on Heparin drip. Add Aranesp as per Nephro. Retic count elevated. Iron studies show a combination of iron def. and AOCD. Transfuse if Hg < 7.0. FU FOBT 6. JOHN on CKD Stage III. Cr 3.60 from 3.85. Stable since starting dialysis. ABG shows improving respiratory acidosis. Monitor and replace electrolytes. Avoid nephrotoxins. DIANNE and Acute Hep panel negative. C3/C4 within normal limits. DC Losartan, Aldactone. NaHCO3 650 mg PO BID as per Nephro. Phos 7.1, start phosphate binders when can PO. HD today. FU BMP, Nephrology 7. DM: POC glucose 105. A1c 5.4. Hold Levemir since NPO until tube feeds. Continue ISS. Diabetic diet. Hypoglycemic precautions. 8. HTN: BP 141/60. Continue Amlodipine 10 mg PO QD, Hydralazine 25 mg PO BID + 75 mg PO QD, Metoprolol 50 mg PO BID, Aldactone 25 mg PO QD. Continue to monitor vitals, adjust medications as necessary. 9. ASCVD risk: Continue ASA 81 mg PO QD, Lipitor 10 mg PO QHS. Patient intubated overnight as she was unable to tolerate BiPAP. She is being diuresed with Lasix IV but is oligouric, underwent dialysis yesterday. Chest x- ray showing worsening of her pleural effusion. She is scheduled for dialysis today. She is being empirically treated for PE with heparin drip, her hemoglobin has remained stable. She has poor prognosis.
[2017-10-31] MEDS: hydrALAZINE HCL 25 MG TAB PO SCH (11:53)
[2017-10-31] MEDS: CHLORHEXIDINE GLUCONATE 15 ML CUP MUCOUS MEM SCH ×2 (12:23→21:03)
[2017-10-31] MEDS: HEPARIN SOD,PORK IN 0.45% NACL 25,000 UNIT in 0.45% NACL 1 500ML.BAG IV SCH ×2 (12:23→23:47)
[2017-10-31] MEDS: FUROSEMIDE 10 MG/ML 10 ML VIAL IV SCH ×2 (12:24→21:03)
[2017-10-31] MEDS: INSULIN ASPART 100 UNIT/ML 1 ML 10 ML VIAL SQ SCH ×2 (13:12→17:49)
[2017-10-31 13:14] LABS: Glucose,Whole Blood 107 mg/dL (75-99)
[2017-10-31 13:53] LABS: Hemoglobin A1C 5.2 % (4.0-6.0)
[2017-10-31 17:51] LABS: Glucose,Whole Blood 101 mg/dL (75-99)
[2017-10-31] MEDS: ASPIRIN 81 MG PO SCH (17:51)
[2017-10-31] MEDS: ATORVASTATIN 10 MG TAB PO SCH (20:58)
[2017-11-01] MEDS: PROPOFOL 1,000 MG in EMPTY BAG 1 BAG IV SCH ×10 (00:53→23:19)
[2017-11-01 04:18] LABS: Anisocytosis Slight; Basophils % (A) 0 %; Eosinophils # (A) 0.3 k/uL (0-0.7); Eosinophils % (A) 4 %; HCT 21.8 % (34.0-46.0); Hypochromasia Moderate; Lymphocytes # (A) 0.7 k/uL (1.0-4.8); Lymphocytes % (A) 11 %; MCH 26.8 pg (25.0-35.0); MCHC 32.3 g/dL (31.0-37.0); MCV 83.1 fL (80.0-100.0); Mean Platelet Volume 9.8; Monocytes # (A) 0.5 k/uL (0-1.0); Monocytes % (A) 7 %; Neutrophils % (A) 76 %; RBC 2.62 m/uL (3.80-5.40); RDW 17.5 % (11.5-15.5); WBC 6.5 k/uL (3.8-10.6)
[2017-11-01 04:46] LABS: Platelet Count 84 k/uL (150-450)
[2017-11-01 04:48] LABS: Albumin 2.4 g/dL (3.5-5.0); Magnesium 1.9 mg/dL (1.6-2.3); Potassium 3.7 mmol/L (3.5-5.1); Total Bilirubin 0.1 mg/dL (0.2-1.3); Total Protein 5.2 g/dL (6.3-8.2)
[2017-11-01 05:00] LABS: ABG Base Excess 0.7 mmol/L; ABG HCO3 26 mmol/L (21-25); ABG Oxygen Saturation 93.9 % (94-97); ABG PCO2 41 mmHg (35-45); ABG PO2 65 mmHg (83-108); ABG TCO2 27 mmol/L (19-24)
[2017-11-01 07:09] LABS: Glucose,Whole Blood 121 mg/dL (75-99)
--- NOTE | 2017-11-01 08:12 | XR ---
EXAMINATION TYPE: XR chest 1V portable DATE OF EXAM: 11/01/2017 CLINICAL HISTORY: Difficulty breathing progress study. TECHNIQUE: 2 AP portable frontal semiupright view of the chest are obtained. COMPARISON: Chest x-ray from one day earlier and older studies. FINDINGS: There is redemonstration of endotracheal and orogastric tubes. There is stable appearance of right-sided PICC line and right internal jugular central venous catheter. There is now complete op acification of the right lung. Patient is rotated to the right similar to prior. There is persistent left basilar opacity. Cardiac silhouette size is difficult to assess due to silhouetting of right hea rt border on current study. Osseous structures are intact. IMPRESSION: New complete opacification of right lung could reflect atelectasis and/or infiltrate with right pleural effusion. There is persistent patchy left basilar atelectasis and/or infiltrate is justine pected small left pleural effusion.
[2017-11-01 08:17] LABS: Glucose,Whole Blood 121 mg/dL (75-99)
[2017-11-01] MEDS: CHLORHEXIDINE GLUCONATE 15 ML CUP MUCOUS MEM SCH ×2 (08:25→20:06)
[2017-11-01] MEDS: PANTOPRAZOLE 40 MG/10 ML VIAL IVP SCH (08:25)
[2017-11-01] MEDS: FUROSEMIDE 10 MG/ML 10 ML VIAL IV SCH ×2 (08:25→21:23)
[2017-11-01] MEDS: SODIUM BICARBONATE TAB 650 MG TAB PO SCH ×2 (08:25→20:06)
[2017-11-01] MEDS: INSULIN ASPART 100 UNIT/ML 1 ML 10 ML VIAL SQ SCH ×4 (08:26→20:06)
[2017-11-01] MEDS: NYSTATIN 100,000 UNIT/GM POWD 15 GM TOPICAL SCH ×2 (08:26→20:06)
--- NOTE | 2017-11-01 09:42 | P.PN ---
Subjective Progress Note Date: 11/01/17 Principal diagnosis: Respiratory failure Progress note dated 10/31/2017 66-year-old morbidly obese female with a history of heart failure. The patient was on the floor yesterday but developed worsening shortness of breath and was transferred over to the ICU. I chose to electively intubate her throughout the night. This happened probably in about 3:00 in the morning. Respiratory status was discussed declining significantly. Despite receiving hemodialysis, her respiratory status declined and we intubated her. This occurred on October 31. Currently she is on the ventilator on the volume assist control mode, her weight is set at 20 tidal volume 400 FiO2 100% and PEEP of 5. Arterial blood gases on those similar settings except for a rate of 16 show a PaO2 of 69. PaCO2 56 and a pH of 7.23. She is currently on a saline IV at 10 mL an hour, propofol at 45 mics per kilogram per minute, heparin via weightbase protocol and norepinephrine 5 mcg/m. She does have an arterial line in place and adequate IV access. Chest x-ray shows a pattern of worsening heart failure and bilateral effusions, right greater than left. In addition to heart failure respiratory failure and obesity, she has a history of stage III chronic kidney disease chronic anemia diabetes chronic lower extremity edema and cellulitis nonhealing foot ulcer and essential hypertension. Also, her lower extremity ulcerations were positive for Pseudomonas and Klebsiella. Her overall prognosis remains extremely poor. We will have to discuss CODE STATUS with the family. Progress note dated 11/01/2017 66-year-old morbidly obese female with a history of heart failure. She developed respiratory failure and required intubation and mechanical ventilation. Her respiratory status has been declining through the night 2 nights ago and we decided to go ahead and electively intubate her. The patient remains on the mechanical ventilator. She is on the volume assist control mode with a rate of 20, tidal volume is 400 FiO2 40% and PEEP of 8. Arterial blood gases show a PaO2 of 65 a PaCO2 41 and a pH of 7.40. She currently is on propofol at 50 mics kilogram per minute heparin has been discontinued a saline IV at 10 mL an hour and tube feeds with Nepro at 26. An arterial line was placed by myself on October 31. Hemodialysis on October 31 and 2 L was removed. Blood cultures were positive for Staphylococcus epidermidis and a ankle culture was positive for Klebsiella and Pseudomonas. Chest x-ray shows complete collapse of the right lung and she will require bronchoscopy today. Lab values include a white count of 6.5 hemoglobin 7 hematocrit 21.8 and a platelet count of 84,000. Sodium potassium chloride CO2 are normal. Anion gap is normal. BUN and creatinine were 58 and 2.90. Objective - Vital Signs Vital signs: Vital Signs Temp 97.5 F L 11/01/17 08:00 Pulse 55 L 11/01/17 08:00 Resp 22 11/01/17 08:00 BP 146/51 10/31/17 19:08 Pulse Ox 92 L 11/01/17 08:00 Intake & Output 10/31/17 11/01/17 11/01/17 18:59 06:59 18:59 Intake Total 4918.537 9447 148.791 Output Total 2681 805 235 Balance -1616.235 592 -86.209 Weight 172.4 kg 173.3 kg Intake: IV 187 153 76 0.9 110 120 20 cefTAZidime 1 gm In 50 50 Sodium Chloride 0.9% 50 ml @ 100 mls/hr IVPB DAILY [facility] Rx#:[id number] pressure bag 27 33 6 Intake, IV Titration 845.765 700 46.791 Amount Heparin Sod,Pork in 0.45% 500 500 NaCl 25,000 unit In 0.45 % NaCl 1 500ml.bag @ 13. 344 UNITS/KG/HR 46 mls/hr IV .[id number] [facility] Rx#: [id number] Norepinephrine 16 mg In 45.765 Dextrose 5% in Water 250 ml @ Titrate IV .Q0M [facility] Rx#:[id number] Propofol 1,000 mg In 300 200 46.791 Empty Bag 1 bag @ Titrate IV .Q0M [facility] Rx#: [id number] Tube Feeding 32 454 26 Other 90 Output: Urine 681 805 235 Other 2000 Other: Voiding Method Indwelling Catheter Indwelling Catheter ABP, PAP, CO, CI - Last Documented Arterial Blood Pressure 131/49 - Exam No acute distress, sedated, with an orally placed endotracheal tube and NG tube. HEENT examination is grossly unremarkable. Mucous membranes are moist. Neck supple. Full range of motion. No adenopathy thyromegaly or neck vein distention. Cardiovascular examination reveals regular rhythm rate. S1-S2 normal. No S3 or S4. No discernible murmur noted. Heart sounds are very distant. Lungs reveal severely diminished breath sounds bilaterally, right greater than left. There are bilateral coarse rhonchi. Crackles are noted at both bases. No wheezes are appreciated. Very little air entry on the right side noted Abdomen soft bowel sounds are heard. No masses or tenderness. Extremities are intact. Chronic lower extremity edema is noted. She also is chronic venous stasis changes with hyperpigmentation. Heels are bandaged. Skin is without rash or lesion. Neurologic examination could not be assessed. - Labs CBC & Chem 7: 11/01/17 04:06 11/01/17 04:06 Labs: Abnormal Lab Results - Last 24 Hours (Table) 10/31/17 10/31/17 11/01/17 Range/Units 13:11 17:49 04:06 RBC 2.62 L (3.80-5.40) m/uL Hgb 7.0 L* (11.4-16.0) gm/dL Hct 21.8 L (34.0-46.0) % RDW 17.5 H (11.5-15.5) % Plt Count 84 L (150-450) k/uL Lymphocytes # 0.7 L (1.0-4.8) k/uL APTT (22.0-30.0) sec ABG pO2 (83-108) mmHg ABG HCO3 (21-25) mmol/L ABG Total CO2 (19-24) mmol/L ABG O2 Saturation (94-97) % BUN (7-17) mg/dL Creatinine (0.52-1.04) mg/dL Glucose (74-99) mg/dL POC Glucose (mg/dL) 107 H 101 H (75-99) mg/dL Calcium (8.4-10.2) mg/dL Phosphorus (2.5-4.5) mg/dL Total Bilirubin (0.2-1.3) mg/dL Total Protein (6.3-8.2) g/dL Albumin (3.5-5.0) g/dL 11/01/17 11/01/17 11/01/17 Range/Units 04:06 04:06 04:56 RBC (3.80-5.40) m/uL Hgb (11.4-16.0) gm/dL Hct (34.0-46.0) % RDW (11.5-15.5) % Plt Count (150-450) k/uL Lymphocytes # (1.0-4.8) k/uL APTT (22.0-30.0) sec ABG pO2 65 L (83-108) mmHg ABG HCO3 26 H (21-25) mmol/L ABG Total CO2 27 H (19-24) mmol/L ABG O2 Saturation 93.9 L (94-97) % BUN 58 H (7-17) mg/dL Creatinine 2.90 H (0.52-1.04) mg/dL Glucose 110 H (74-99) mg/dL POC Glucose (mg/dL) (75-99) mg/dL Calcium 8.0 L (8.4-10.2) mg/dL Phosphorus 5.6 H (2.5-4.5) mg/dL Total Bilirubin 0.1 L (0.2-1.3) mg/dL Total Protein 5.2 L (6.3-8.2) g/dL Albumin 2.4 L (3.5-5.0) g/dL 11/01/17 11/01/17 11/01/17 Range/Units 06:30 07:06 08:15 RBC (3.80-5.40) m/uL Hgb (11.4-16.0) gm/dL Hct (34.0-46.0) % RDW (11.5-15.5) % Plt Count (150-450) k/uL Lymphocytes # (1.0-4.8) k/uL APTT 133.7 H* (22.0-30.0) sec ABG pO2 (83-108) mmHg ABG HCO3 (21-25) mmol/L ABG Total CO2 (19-24) mmol/L ABG O2 Saturation (94-97) % BUN (7-17) mg/dL Creatinine (0.52-1.04) mg/dL Glucose (74-99) mg/dL POC Glucose (mg/dL) 121 H 121 H (75-99) mg/dL Calcium (8.4-10.2) mg/dL Phosphorus (2.5-4.5) mg/dL Total Bilirubin (0.2-1.3) mg/dL Total Protein (6.3-8.2) g/dL Albumin (3.5-5.0) g/dL Microbiology - Last 24 Hours (Table) 10/31/17 21:15 Gram Stain - Preliminary Sputum Sputum Culture - Preliminary 10/30/17 18:45 Urine Culture - Final Urine,Catheterized 10/26/17 17:30 Blood Culture - Preliminary Blood No Growth after 120 hours Assessment and Plan Assessment: Assessment Hypoxemic respiratory failure, likely related to underlying CHF and bilateral pleural effusions, requiring intubation and mechanical ventilation on October 31 Complete collapse of the right lung, which will require bronchoscopy Morbid obesity Chronic stage III kidney disease, with recent initiation of hemodialysis Anemia of chronic disease and of chronic renal failure Diabetes mellitus Chronic lower extremity edema Nonhealing ulcers of the lower semis History of hypertension Cellulitis of her extremities secondary to both Pseudomonas and Klebsiella Plan: Plan dated 10/31/2017 The patient's vent settings were adjusted slightly. The rate was increased from 16-20. The patient will have her PEEP increased to see if we can reduce the FiO2. In addition, the patient will have daily chest x-rays and labs. She is on propofol for sedation heparin via weightbase protocol and norepinephrine for blood pressure support. She remains on updrafts every 4 and antibiotics. White count is 8.3 hemoglobin 7.6 hematocrit 25.5 and platelet count 116,000. Sodium and potassium are normal. Chloride 109, CO2 24, anion gap normal and BUN and creatinine were 70 and 3.60. Urinalysis is likely consistent with a urinary tract infection. The patient remains on vancomycin and Fortaz. Critical care time 34 minutes Plan dated 11/01/2017 The patient will require bronchoscopy today to open up that right lung. Labs x- rays a medications are reviewed. She remains on propofol at 50 mics per kilogram per minute and heparin has been discontinued. She is being nourished. Vent settings are appropriate. Arterial blood gases are reasonable. Arterial line was placed on October 31. She received hemodialysis on October 31 and 2 L was removed. Overall prognosis remains very poor. She remains on antibiotics. She may end up requiring a tracheostomy and PEG tube. Additional recommendations and suggestions are forthcoming. Critical care time 33 minutes Time with Patient: Greater than 30
[2017-11-01] MEDS ORDERED: CISATRACURIUM 2 MG/ML 5 ML VIAL IV ONE ×2 (10:00→10:09)
[2017-11-01] MEDS: INSULIN DETEMIR 100 UNIT/ML 10 ML VIAL SQ SCH (11:12)
--- NOTE | 2017-11-01 11:14 | P.PN ---
Subjective patient is seen in follow-up for acute kidney injury on chronic kidney disease. Patient has chronic kidney disease stage III with baseline creatinine in the range of 1.8-2.3 secondary to diabetic kidney disease. Creatinine was 3.5 on October 30. She was oliguric and volume overloaded. Patient was started on hemodialysis on October 30 and has undergone 2 treatments of hemodialysis so far with total 4 L ultrafiltration. She is maintained on Lasix 80 mg IV twice daily as well - urine output has improved to 60-80 mL per hour. Vancomycin level is high at 35.1 10/29; 32.5 as of yesterday. Currently intubated and undergoing bronchoscopy due to opacification of the right lung. Vital signs are stable. General: The patient appeared well nourished and normally developed. HEENT: Head exam is unremarkable. Neck is without jugular venous distension. Intubated. LUNGS: Breath sounds decreased. HEART: Rate and Rhythm are regular. First and second heart sounds normal. No murmurs, rubs or gallops. ABDOMEN: Abdominal exam reveals normal bowel sounds. Non-tender and non- distended. No evidence of peritonitis. EXTREMITITES: 1+ edema. Objective - Vital Signs Vital signs: Vital Signs Temp 97.5 F L 11/01/17 08:00 Pulse 54 L 11/01/17 10:00 Resp 24 11/01/17 10:00 BP 146/51 10/31/17 19:08 Pulse Ox 94 L 11/01/17 10:00 Intake & Output 10/31/17 11/01/17 11/01/17 18:59 06:59 18:59 Intake Total 6004.682 8465 226.791 Output Total 2681 805 375 Balance -1616.235 592 -148.209 Weight 172.4 kg 173.3 kg 173.3 kg Intake: IV 187 153 102 0.9 110 120 40 cefTAZidime 1 gm In 50 50 Sodium Chloride 0.9% 50 ml @ 100 mls/hr IVPB DAILY [facility] Rx#:[id number] pressure bag 27 33 12 Intake, IV Titration 845.765 700 46.791 Amount Heparin Sod,Pork in 0.45% 500 500 NaCl 25,000 unit In 0.45 % NaCl 1 500ml.bag @ 13. 344 UNITS/KG/HR 46 mls/hr IV .[id number] [facility] Rx#: [id number] Norepinephrine 16 mg In 45.765 Dextrose 5% in Water 250 ml @ Titrate IV .Q0M [facility] Rx#:[id number] Propofol 1,000 mg In 300 200 46.791 Empty Bag 1 bag @ Titrate IV .Q0M [facility] Rx#: [id number] Tube Feeding 32 454 78 Other 90 Output: Urine 681 805 375 Other 2000 Other: Voiding Method Indwelling Catheter Indwelling Catheter Indwelling Catheter ABP, PAP, CO, CI - Last Documented Arterial Blood Pressure 130/46 - Labs CBC & Chem 7: 11/01/17 04:06 11/01/17 04:06 Labs: Abnormal Lab Results - Last 24 Hours (Table) 10/31/17 10/31/17 11/01/17 Range/Units 13:11 17:49 04:06 RBC 2.62 L (3.80-5.40) m/uL Hgb 7.0 L* (11.4-16.0) gm/dL Hct 21.8 L (34.0-46.0) % RDW 17.5 H (11.5-15.5) % Plt Count 84 L (150-450) k/uL Lymphocytes # 0.7 L (1.0-4.8) k/uL APTT (22.0-30.0) sec ABG pO2 (83-108) mmHg ABG HCO3 (21-25) mmol/L ABG Total CO2 (19-24) mmol/L ABG O2 Saturation (94-97) % BUN (7-17) mg/dL Creatinine (0.52-1.04) mg/dL Glucose (74-99) mg/dL POC Glucose (mg/dL) 107 H 101 H (75-99) mg/dL Calcium (8.4-10.2) mg/dL Phosphorus (2.5-4.5) mg/dL Total Bilirubin (0.2-1.3) mg/dL Total Protein (6.3-8.2) g/dL Albumin (3.5-5.0) g/dL 11/01/17 11/01/17 11/01/17 Range/Units 04:06 04:06 04:56 RBC (3.80-5.40) m/uL Hgb (11.4-16.0) gm/dL Hct (34.0-46.0) % RDW (11.5-15.5) % Plt Count (150-450) k/uL Lymphocytes # (1.0-4.8) k/uL APTT (22.0-30.0) sec ABG pO2 65 L (83-108) mmHg ABG HCO3 26 H (21-25) mmol/L ABG Total CO2 27 H (19-24) mmol/L ABG O2 Saturation 93.9 L (94-97) % BUN 58 H (7-17) mg/dL Creatinine 2.90 H (0.52-1.04) mg/dL Glucose 110 H (74-99) mg/dL POC Glucose (mg/dL) (75-99) mg/dL Calcium 8.0 L (8.4-10.2) mg/dL Phosphorus 5.6 H (2.5-4.5) mg/dL Total Bilirubin 0.1 L (0.2-1.3) mg/dL Total Protein 5.2 L (6.3-8.2) g/dL Albumin 2.4 L (3.5-5.0) g/dL 11/01/17 11/01/17 11/01/17 Range/Units 06:30 07:06 08:15 RBC (3.80-5.40) m/uL Hgb (11.4-16.0) gm/dL Hct (34.0-46.0) % RDW (11.5-15.5) % Plt Count (150-450) k/uL Lymphocytes # (1.0-4.8) k/uL APTT 133.7 H* (22.0-30.0) sec ABG pO2 (83-108) mmHg ABG HCO3 (21-25) mmol/L ABG Total CO2 (19-24) mmol/L ABG O2 Saturation (94-97) % BUN (7-17) mg/dL Creatinine (0.52-1.04) mg/dL Glucose (74-99) mg/dL POC Glucose (mg/dL) 121 H 121 H (75-99) mg/dL Calcium (8.4-10.2) mg/dL Phosphorus (2.5-4.5) mg/dL Total Bilirubin (0.2-1.3) mg/dL Total Protein (6.3-8.2) g/dL Albumin (3.5-5.0) g/dL Microbiology - Last 24 Hours (Table) 10/31/17 21:15 Gram Stain - Preliminary Sputum Sputum Culture - Preliminary 10/30/17 18:45 Urine Culture - Final Urine,Catheterized 10/26/17 17:30 Blood Culture - Preliminary Blood No Growth after 120 hours Assessment and Plan Plan: Assessment: 1. Acute kidney injury secondary to ATN secondary to cardiorenal syndrome and vancomycin toxicity. Creatinine up to 3.85 on October 30 - started on hemodialysis due to oliguria and hyperkalemia. Ultrasound from April 2017 was benign. Vancomycin discontinued. 2. Volume overload. Improving. 3. Diastolic CHF with mild pulmonary hypertension. 4. Anemia. iron replete. Component of chronic kidney disease. Maintained on Aranesp. 5. Insulin-dependent diabetes mellitus. 6. Staph epidermidis bacteremia. Possible contamination. 7. Metabolic acidosis secondary to acute kidney injury. Improved. 8. Chest pain. Cardiology following. Currently maintained on heparin drip. 9. Hypertension with chronic kidney disease. Controlled. 10. Chronic kidney disease stage III with baseline creatinine in the range of 1.8-2.3. Etiology is diabetic kidney disease and cardiorenal syndrome. 11. Proteinuria. Likely due to diabetic kidney disease. Serologies negative so far. 12. Hyperkalemia secondary to acute kidney injury, metabolic acidosis and use of Aldactone. Aldactone discontinued on October 29. Improved. 13. Hyperphosphatemia secondary to acute kidney injury. Improving. Plan: Third treatment of hemodialysis today - can likely hold off over the weekend and monitor for renal recovery. Avoid nephrotoxic agents. Continue to monitor renal function and urine output closely. Maintain Lasix 80 mg IV twice daily.
[2017-11-01] MEDS: IPRATROPIUM-ALBUTEROL 3 ML NEB INHALATION SCH ×5 (11:19→23:13)
[2017-11-01 11:50] LABS: Glucose,Whole Blood 106 mg/dL (75-99)
--- NOTE | 2017-11-01 12:04 | PCN ---
PROCEDURE NOTE PROCEDURE: Bronchoscopy, airway examination, therapeutic lavage, BAL right middle lobe. PREOP DIAGNOSIS: Right lung collapse. POSTOP DIAGNOSIS: Right lung collapse. OPERATORS: Dr. Bey and Dr. Penaloza. PROCEDURE: The patient's procedure was done in room 619 in the ICU. There was informed consent. After the patient was adequately sedated and paralyzed and 100% oxygen on the ventilator, the bronchoscope was inserted through the bronchoscope adapter connected to the endotracheal tube. The bronchoscope was pushed down through the endotracheal tube into the trachea. The trachea appeared normal. Trachea billy was sharp. We did a quick inspection on the left side. The left upper lobe and its 2 segments, the left middle lobe and its 2 segments and the left lower lobe and its 4 segments all appeared normal. There was not much in the way of secretions on the left side. On the right side, the right upper lobe and its 3 segments was relatively normal. There was some secretions noted. Most of the secretions were noted in the right middle lobe and right lower lobe. We were actually surprised. We thought we would see much more in the way of mucus plugs. We did position the bronchoscope in the right middle lobe and a BAL was done and 30 mL was recovered. There was some purulence noted. There was no dominant mass or tumor. The patient then had additional saline instilled into the middle lobe, upper lobe and lower lobe on the right side and the saline was suctioned. After the procedure was completed, the bronchoscope was withdrawn. There was no immediate complications. She did desaturate a bit, but recovered nicely when the scope was removed. There was no additional problems. The fluid will be sent for analysis. All paperwork was signed. MMODL / IJN: [id number] /
--- NOTE | 2017-11-01 13:13 | US ---
EXAMINATION TYPE: US venous doppler duplex LE BI DATE OF EXAM: 11/01/2017 12:59 PM COMPARISON: Prior bilateral lower extremity venous ultrasound April 10, 2017. CLINICAL HISTORY: sob at admission, lower leg swelling. INTUBATED ICU PATIENT WITH EXTENSIVE PITTING EDEMA IN BILAT LEGS, 350+LBS SIDE PERFORMED: BILATERAL TECHNIQUE: The lower extremity deep venous system is examined utilizing real time linear array sonog amanda with graded compression, doppler sonography and color-flow sonography. VESSELS IMAGED: External Iliac Vein (EIV) Common Femoral Vein Deep Femoral Vein Greater Saphenous Vein * Femoral Vein Popliteal Vein Small Saphenous Vein * Proximal Calf Veins (* superficial vessels) Severely limited exam due to morbidly obesity and extensive pitting edema, unable to attempt most com pression images due to inability to see vessel without color flow on. Unable to visualize vessels marietta r groin due to heavy, edematous panis. Right Leg: Limited exam cannot r/o DVT due to factors stated above, blood flow in popiteal vein was detected Left Leg: Limited exam cannot r/o DVT due to factors stated above, blood flow detected at mid FV and popiteal vein IMPRESSION: Suboptimal essentially nondiagnostic study due to extensive subcutaneous edema seen bila terally.
--- NOTE | 2017-11-01 13:21 | P.PN ---
Subjective Progress Note Date: 10/31/17 66 year old woman with superobesity presents to the ER with marked increase of shortness of breath, with some chest pain also occurring. At admission there was evidence of worsening of her chronic renal failure and significant volume overload, with some diuresis she is already receiving relief from her extensive shortness of breath. At this time she is not complaining of any chest pain. She was found and she has been seen by pulmonary critical care, and there is a possibility of a thoracentesis future. At this time she denies other acute new complaints. A total contact cast is in place on the left leg for the pressure ulcer to the left heel is negative for any difficulties at all. The chronic ulcerations of the right heel is also without pain. She is aware of improved urinary output since being on the higher doses of Lasix. As noted she has a history of significant underlying coronary artery disease with a history of congestive heart failure with known diastolic dysfunction. She is feeling slightly better at this time but certainly not nearly her baseline. She does have significant debility. 10/28/2017 the patient has declined further today. She is requiring BiPAP for oxygen saturation, she is somewhat confused but does seem to be comfortable. She is unable to complain of any new symptoms 10/29/2017 the patient is much more awake and alert today. Her BiPAP is in place and she is no longer confused. She recognized me by name and knows that she is at the hospital. She is denying significant discomfort in her shortness of breath is improved. October 31, 2017 patient patient is worsen she is now developed respiratory failure and required intubation with mechanical ventilation and is sedated. She' s been seen by nephrology and with volume overload is receiving hemodialysis. The hope is that with dialysis she'll improve her pulmonary status from improved volume status. No fevers are noted. No new positive cultures. Objective - Vital Signs Vital signs: Vital Signs Temp 97.8 F 11/01/17 12:00 Pulse 54 L 11/01/17 12:00 Resp 20 11/01/17 12:00 BP 146/51 10/31/17 19:08 Pulse Ox 96 11/01/17 12:00 Intake & Output 10/31/17 11/01/17 11/01/17 18:59 06:59 18:59 Intake Total 2799.573 3217 373.240 Output Total 2681 805 475 Balance -1616.235 592 -101.760 Weight 172.4 kg 173.3 kg 173.3 kg Intake: IV 187 153 128 0.9 110 120 60 cefTAZidime 1 gm In 50 50 Sodium Chloride 0.9% 50 ml @ 100 mls/hr IVPB DAILY [facility] Rx#:[id number] pressure bag 27 33 18 Intake, IV Titration 845.765 700 141.240 Amount Heparin Sod,Pork in 0.45% 500 500 NaCl 25,000 unit In 0.45 % NaCl 1 500ml.bag @ 13. 344 UNITS/KG/HR 46 mls/hr IV .[id number] [facility] Rx#: [id number] Norepinephrine 16 mg In 45.765 Dextrose 5% in Water 250 ml @ Titrate IV .Q0M [facility] Rx#:[id number] Propofol 1,000 mg In 300 200 141.240 Empty Bag 1 bag @ Titrate IV .Q0M [facility] Rx#: [id number] Tube Feeding 32 454 104 Other 90 Output: Urine 681 805 475 Other 2000 Other: Voiding Method Indwelling Catheter Indwelling Catheter Indwelling Catheter ABP, PAP, CO, CI - Last Documented Arterial Blood Pressure 139/52 - Exam 66-year-old woman with superobesity is now intubated sedated and mechanically ventilated Head exam was generally normal. There was no scleral icterus or corneal arcus. Mucous membranes were moist. Neck was supple and without jugular venous distension, thyromegaly, or carotid bruits. Carotids were easily palpable bilaterally. There was no adenopathy. Lungs sounds are diminished bilaterally especially in the right lung base along with some dullness to percussion Heart sounds are regular, positive S1-S2 and there is systolic ejection murmur grade 3/6 systolic the precordium Abdominal exam revealed normal bowel sounds. The abdomen was soft, non-tender, and without masses, organomegaly, or appreciable enlargement of the abdominal aorta. Extremities revealed +1-2 pitting edema there is no cyanosis or clubbing, 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, there is also evidence of chronic venous stasis and lower extremities bilaterally. Left heel measures at 2.4 x 3.5 x 0.2 cm right heel ulceration measuring at 2 x 2 x 0.2 total contact cast was removed by the wound team today. Neurologic sedated on the ventilator - Labs CBC & Chem 7: 11/01/17 04:06 11/01/17 04:06 Labs: Abnormal Lab Results - Last 24 Hours (Table) 10/31/17 11/01/17 11/01/17 Range/Units 17:49 04:06 04:06 RBC 2.62 L (3.80-5.40) m/uL Hgb 7.0 L* (11.4-16.0) gm/dL Hct 21.8 L (34.0-46.0) % RDW 17.5 H (11.5-15.5) % Plt Count 84 L (150-450) k/uL Lymphocytes # 0.7 L (1.0-4.8) k/uL APTT (22.0-30.0) sec ABG pO2 (83-108) mmHg ABG HCO3 (21-25) mmol/L ABG Total CO2 (19-24) mmol/L ABG O2 Saturation (94-97) % BUN 58 H (7-17) mg/dL Creatinine 2.90 H (0.52-1.04) mg/dL Glucose 110 H (74-99) mg/dL POC Glucose (mg/dL) 101 H (75-99) mg/dL Calcium 8.0 L (8.4-10.2) mg/dL Phosphorus (2.5-4.5) mg/dL Total Bilirubin 0.1 L (0.2-1.3) mg/dL Total Protein 5.2 L (6.3-8.2) g/dL Albumin 2.4 L (3.5-5.0) g/dL 11/01/17 11/01/17 11/01/17 Range/Units 04:06 04:56 06:30 RBC (3.80-5.40) m/uL Hgb (11.4-16.0) gm/dL Hct (34.0-46.0) % RDW (11.5-15.5) % Plt Count (150-450) k/uL Lymphocytes # (1.0-4.8) k/uL APTT 133.7 H* (22.0-30.0) sec ABG pO2 65 L (83-108) mmHg ABG HCO3 26 H (21-25) mmol/L ABG Total CO2 27 H (19-24) mmol/L ABG O2 Saturation 93.9 L (94-97) % BUN (7-17) mg/dL Creatinine (0.52-1.04) mg/dL Glucose (74-99) mg/dL POC Glucose (mg/dL) (75-99) mg/dL Calcium (8.4-10.2) mg/dL Phosphorus 5.6 H (2.5-4.5) mg/dL Total Bilirubin (0.2-1.3) mg/dL Total Protein (6.3-8.2) g/dL Albumin (3.5-5.0) g/dL 11/01/17 11/01/17 11/01/17 Range/Units 07:06 08:15 11:50 RBC (3.80-5.40) m/uL Hgb (11.4-16.0) gm/dL Hct (34.0-46.0) % RDW (11.5-15.5) % Plt Count (150-450) k/uL Lymphocytes # (1.0-4.8) k/uL APTT (22.0-30.0) sec ABG pO2 (83-108) mmHg ABG HCO3 (21-25) mmol/L ABG Total CO2 (19-24) mmol/L ABG O2 Saturation (94-97) % BUN (7-17) mg/dL Creatinine (0.52-1.04) mg/dL Glucose (74-99) mg/dL POC Glucose (mg/dL) 121 H 121 H 106 H (75-99) mg/dL Calcium (8.4-10.2) mg/dL Phosphorus (2.5-4.5) mg/dL Total Bilirubin (0.2-1.3) mg/dL Total Protein (6.3-8.2) g/dL Albumin (3.5-5.0) g/dL Microbiology - Last 24 Hours (Table) 10/31/17 21:15 Gram Stain - Preliminary Sputum Sputum Culture - Preliminary 10/30/17 18:45 Urine Culture - Final Urine,Catheterized 10/26/17 17:30 Blood Culture - Preliminary Blood No Growth after 120 hours Assessment and Plan (1) Diabetes mellitus type 2, uncontrolled, with complications Current Visit: No Status: Acute Code(s): E11.8 - TYPE 2 DIABETES MELLITUS WITH UNSPECIFIED COMPLICATIONS; E11.65 - TYPE 2 DIABETES MELLITUS WITH HYPERGLYCEMIA SNOMED Code(s): 827471190 (2) Diabetic ulcer of heel Narrative/Plan: 66-year-old woman who has superobesity presented to Hospital from the [facility] with increasing shortness of breath. If the admission there is evidence of fluid overload and worsening of her chronic diastolic congestive heart failure. It is noted that she has developed a right pleural effusion and has been seen by pulmonary medicine. Goal will be for further diuresis before any attempt of a thoracentesis. She this point and was more comfortable than admission, appears her chest pain has improved. Physical chronic ulcerations the left heel and a total contact cast is in place. This is removed tomorrow. The ulceration to the right heel has the Opticel silver in place which is adequate and can be changed every other day. She does have a chronic anemia that has worsened over the last year. This may be worsening her heart failure and will be further evaluated at this time. She is being treated for this significant infection to heal with intravenous vancomycin at the [facility]. Vancomycin will continue also had and Rocephin now based on prior culture results. Patient is a blood culture drawn it appears to be contamination would need no further ulceration of treatment unless there are further positive blood cultures. Given that she does not have fevers or chills it is not likely that she has a line sepsis. 10/28/2017 patient statuses worsened today. Her pulmonary status seems to have declined and she is requiring BiPAP for adequate oxygenation. She is more confused with her current respiratory difficulties. She however is not agitated and does not seem to be uncomfortable. BiPAP is reapplied and is being watched closely to try to keep into place. Blood culture contamination. Wound culture has gram-negative bacilli and at this time vancomycin is being continued to complete his course of therapy from the prior bony infection, Rocephin is being utilized until there is further culture data. Her prognosis is poor. 10/29/2017 the patient is improved today. With her BiPAP and place her mentation is clear. The ulceration of the left heel will be treated with the silver alginate dressing also. Antibiotic therapy will be altered from Rocephin to ceftazidime given the isolated Klebsiella and Pseudomonas. She continues to have difficulty with her renal failure is being followed by nephrology. She is yet to clear her last dose of antibiotic therapy (vancomycin ) that was given before her admission. The patient is very weak and will need to complete a course of physical therapy before she will be able to get back to her home setting. Nephrology is relating if she does not have further improvement they will then consider renal replacement therapy to improve her fracture volume overload chronic respiratory failure and acidosis. 10/31 2016 the patient is now developed respiratory failure and is required intubation with sedation and mechanical ventilation. She is comfortable at this time and is well sedated. Receiving hemodialysis to improve her volume overload and her acidosis. The acute renal failure appears to be multifactorial and it is as she has been vancomycin therapy. 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 She is nearing the end of course of that treatment and with the renal failure the vancomycin level has remained high for the last several days and likely will be able to complete course of therapy without any further dosing. With the gram negatives being seen from the ankle culture Rocephin was added. This is transition to ceftazidime given the finding of pseudomonas at the site. Current Visit: No Status: Acute Code(s): E11.621 - TYPE 2 DIABETES MELLITUS WITH FOOT ULCER; L97.409 - NON-PRS CHRONIC ULCER OF UNSP HEEL AND MIDFOOT W UNSP SEVERT SNOMED Code(s): 52992853 (3) Severe obesity (BMI >= 40) Current Visit: No Status: Acute Code(s): E66.01 - MORBID (SEVERE) OBESITY DUE TO EXCESS CALORIES SNOMED Code(s): 972926340
[2017-11-01 15:19] LABS: Appearance,BF Cloudy; Color,BF Colorless; Nucleated Cells, Body Fluid 25 /uL; RBC, Body Fluid 385 /uL
[2017-11-01 15:23] LABS: Mononuclear WBC,Body Fluid 50 %; Polynuclear WBC,Body Fluid 49 %; Total Cells Counted,Body Fluid 100
--- NOTE | 2017-11-01 16:14 | P.PN ---
Subjective Progress Note Date: 11/01/17 Principal diagnosis: Acute on chronic respiratory failure Patient was seen and examined. Patient remains intubated. No acute events overnight. Her vent settings are tidal volume 400, rate of 20, PEEP of 8 FiO2 of 50. Her ABG this morning shows a pH of 7.40, pCO2 of 41, bicarb of 25. Her lactic acid is less than 0.5. Her vital signs remained stable with a blood pressure of 116/48, mean arterial pressure of 70, pulse rate of 52 on Levophed 5 mcg. She is on ceftazadine, for positive wound cultures showing Klebsiella oxytocin, Pseudomonas aeruginosa. Objective - Vital Signs Vital signs: Vital Signs Temp 97.5 F L 11/01/17 16:00 Pulse 52 L 11/01/17 16:00 Resp 21 11/01/17 16:00 BP 116/48 11/01/17 16:00 Pulse Ox 95 11/01/17 16:00 Intake & Output 10/31/17 11/01/17 11/01/17 18:59 06:59 18:59 Intake Total 3998.037 4517 451.240 Output Total 2681 805 699 Balance -1616.235 592 -247.760 Weight 172.4 kg 173.3 kg 173.3 kg Intake: IV 187 153 180 0.9 110 120 100 cefTAZidime 1 gm In 50 50 Sodium Chloride 0.9% 50 ml @ 100 mls/hr IVPB DAILY [facility] Rx#:[id number] pressure bag 27 33 30 Intake, IV Titration 845.765 700 141.240 Amount Heparin Sod,Pork in 0.45% 500 500 NaCl 25,000 unit In 0.45 % NaCl 1 500ml.bag @ 13. 344 UNITS/KG/HR 46 mls/hr IV .[id number] [facility] Rx#: [id number] Norepinephrine 16 mg In 45.765 Dextrose 5% in Water 250 ml @ Titrate IV .Q0M [facility] Rx#:[id number] Propofol 1,000 mg In 300 200 141.240 Empty Bag 1 bag @ Titrate IV .Q0M [facility] Rx#: [id number] Tube Feeding 32 454 130 Other 90 Output: Urine 681 805 699 Other 2000 Other: Voiding Method Indwelling Catheter Indwelling Catheter Indwelling Catheter ABP, PAP, CO, CI - Last Documented Arterial Blood Pressure 118/47 - Exam General: morbidly obese, RASS - 5, appears at stated age, on ventilator setting RR 20 PEEP 8 FiO2 50 Derm: warm, dry Head: atraumatic, normocephalic, symmetric, NG tube in place Eyes: EOMI, no lid lag, anicteric sclera Mouth: no lip lesion, mucus membranes moist Cardiovascular: S1S2 reg, systolic murmur, bradycardic, no JVD Lungs: Coarse breath sounds bilaterally with rhonchi and rales BL, decreased air entry on the right Abdominal: soft, nontender to palpation, no guarding, no appreciable organomegaly, obese Ext: 2+ lower extremity edema bilaterally, no contractures. Chronic venous stasis BL LE. - Labs CBC & Chem 7: 11/01/17 04:06 11/01/17 04:06 Labs: Abnormal Lab Results - Last 24 Hours (Table) 10/31/17 10/31/17 11/01/17 Range/Units 04:20 17:49 04:06 RBC 2.62 L (3.80-5.40) m/uL Hgb 7.0 L* (11.4-16.0) gm/dL Hct 21.8 L (34.0-46.0) % RDW 17.5 H (11.5-15.5) % Plt Count 84 L (150-450) k/uL Lymphocytes # 0.7 L (1.0-4.8) k/uL APTT (22.0-30.0) sec ABG pO2 (83-108) mmHg ABG HCO3 (21-25) mmol/L ABG Total CO2 (19-24) mmol/L ABG O2 Saturation (94-97) % BUN (7-17) mg/dL Creatinine (0.52-1.04) mg/dL Glucose (74-99) mg/dL POC Glucose (mg/dL) 101 H (75-99) mg/dL Calcium (8.4-10.2) mg/dL Phosphorus (2.5-4.5) mg/dL Total Bilirubin (0.2-1.3) mg/dL Total Protein (6.3-8.2) g/dL Albumin (3.5-5.0) g/dL Free [place] LC, Quant 20.30 H (0.33-1.94) mg/dL Free [place] LC, Quant 2.79 H (0.57-2.63) mg/dL 11/01/1718 11/01/17 Range/Units 04:06 04:06 04:56 RBC (3.80-5.40) m/uL Hgb (11.4-16.0) gm/dL Hct (34.0-46.0) % RDW (11.5-15.5) % Plt Count (150-450) k/uL Lymphocytes # (1.0-4.8) k/uL APTT (22.0-30.0) sec ABG pO2 65 L (83-108) mmHg ABG HCO3 26 H (21-25) mmol/L ABG Total CO2 27 H (19-24) mmol/L ABG O2 Saturation 93.9 L (94-97) % BUN 58 H (7-17) mg/dL Creatinine 2.90 H (0.52-1.04) mg/dL Glucose 110 H (74-99) mg/dL POC Glucose (mg/dL) (75-99) mg/dL Calcium 8.0 L (8.4-10.2) mg/dL Phosphorus 5.6 H (2.5-4.5) mg/dL Total Bilirubin 0.1 L (0.2-1.3) mg/dL Total Protein 5.2 L (6.3-8.2) g/dL Albumin 2.4 L (3.5-5.0) g/dL Free [place] LC, Quant (0.33-1.94) mg/dL Free [place] LC, Quant (0.57-2.63) mg/dL 11/01/1718 11/01/17 Range/Units 06:30 07:06 08:15 RBC (3.80-5.40) m/uL Hgb (11.4-16.0) gm/dL Hct (34.0-46.0) % RDW (11.5-15.5) % Plt Count (150-450) k/uL Lymphocytes # (1.0-4.8) k/uL APTT 133.7 H* (22.0-30.0) sec ABG pO2 (83-108) mmHg ABG HCO3 (21-25) mmol/L ABG Total CO2 (19-24) mmol/L ABG O2 Saturation (94-97) % BUN (7-17) mg/dL Creatinine (0.52-1.04) mg/dL Glucose (74-99) mg/dL POC Glucose (mg/dL) 121 H 121 H (75-99) mg/dL Calcium (8.4-10.2) mg/dL Phosphorus (2.5-4.5) mg/dL Total Bilirubin (0.2-1.3) mg/dL Total Protein (6.3-8.2) g/dL Albumin (3.5-5.0) g/dL Free [place] LC, Quant (0.33-1.94) mg/dL Free [place] LC, Quant (0.57-2.63) mg/dL 11/01/17 Range/Units 11:50 RBC (3.80-5.40) m/uL Hgb (11.4-16.0) gm/dL Hct (34.0-46.0) % RDW (11.5-15.5) % Plt Count (150-450) k/uL Lymphocytes # (1.0-4.8) k/uL APTT (22.0-30.0) sec ABG pO2 (83-108) mmHg ABG HCO3 (21-25) mmol/L ABG Total CO2 (19-24) mmol/L ABG O2 Saturation (94-97) % BUN (7-17) mg/dL Creatinine (0.52-1.04) mg/dL Glucose (74-99) mg/dL POC Glucose (mg/dL) 106 H (75-99) mg/dL Calcium (8.4-10.2) mg/dL Phosphorus (2.5-4.5) mg/dL Total Bilirubin (0.2-1.3) mg/dL Total Protein (6.3-8.2) g/dL Albumin (3.5-5.0) g/dL Free [place] LC, Quant (0.33-1.94) mg/dL Free [place]ambda LC, Quant (0.57-2.63) mg/dL Microbiology - Last 24 Hours (Table) 10/31/17 21:15 Gram Stain - Preliminary Sputum Sputum Culture - Preliminary 10/30/17 18:45 Urine Culture - Final Urine,Catheterized 10/26/17 17:30 Blood Culture - Preliminary Blood No Growth after 120 hours Assessment and Plan Assessment: Assessment 66-year-old female with past medical history of heart failure, CKG, diabetes, hypertension, hyperlipidemia presents the ED for chest pain and shortness of breath. She is admitted to rule out PE and for diuresing. Plan 1. Acute on Chronic Respiratory failure: 2/2 CHF exacerbation and fluid overload from CKD. Trop < 0.012 x 2, CKMB negative 10/29, EKG shows NSR. Elevated D-dimer, high risk for PE, unable to be done x 2, Heparin drip DC'd due to drop in Hg per Pulmonology. Continue diuresing with IV Lasix as per Cardiology. Chest x-ray this morning shows new complete opacification of right lung could reflect atelectasis or infiltrate with right pleural effusion. Patient underwent bronchoscopy on 11/01/[address] Bey to open up the right lung. Continue HD per Nephro. Repeat ABG this morning is improved with a pH of 7.40, pCO2 of 41, HCO3 25. Continue to titrate vent settings per Pulmonology. FU CXR in the AM, Sputum Cx, Pulmonology, Nephrology, Cardiology 2. CHF exacerbation: Echo shows EF 50-55%. Continue Lasix 80 mg IV BID and HD per Nephro. Continue Metoprolol 50 mg PO BID. Holding Losartan and Aldactone due to worsening CKD and hyperK. CXR shows worsening R pleural effusion, likely related to CHF. Monitor Ins and Outs. Daily weights. K > 4 Mg > 2. FU Cardiology and Nephrology 3. Anemia: Likely due to CHF and CKD. Hg 7.0 Hct 21.8 MCV 83.1. s/p 1 unit PRBC. Add Aranesp as per Nephro. Retic count elevated. Iron studies show a combination of iron def. and AOCD. Heparin drip discontinued by pulmonology. No need to transfuse today as per Pulm. Transfuse if Hg < 7.0. FU FOBT, CBC 4. Bacteremia: BCx 810 show S. epidermidis. Repeat BCx 120H no growth. UA shows large LE, UCx showed mixed colonies. WCx shows K. oxytoca and P. aeruginosa. Chest x-ray showing possible right upper lobe infiltrate. Patient currently on Ceftazadine IV. No fever or leukocytosis. FU ID 5. [id number] on CKD Stage III. Cr 2.90 from 3.85. Stable since starting dialysis. ABG shows improving respiratory acidosis. Monitor and replace electrolytes. Avoid nephrotoxins. DIANNE and Acute Hep panel negative. C3/C4 within normal limits. DC Losartan, Aldactone. NaHCO3 650 mg PO BID as per Nephro. Phos 7.1, start phosphate binders when can PO. HD today. FU BMP, Nephrology 6. DM: POC glucose 106. A1c 5.4. Hold Levemir since NPO until tube feeds. Continue ISS. Diabetic diet. Hypoglycemic precautions. 7. HTN: BP 118/47. Continue Amlodipine 10 mg PO QD, Hydralazine 25 mg PO BID + 75 mg PO QD, Metoprolol 50 mg PO BID. Continue to monitor vitals, adjust medications as necessary. 8. Hyperkalemia: K 5.to 4.6. Resolved since starting dialysis. Holding Aldactone and Losartan. Likely related to wosening CKD. FU daily BMP 9. ASCVD risk: Continue ASA 81 mg PO QD, Lipitor 10 mg PO QHS. Patient intubated. She is to undergo dialysis, day 3. Her hemoglobin has dropped to 7, will hold from transfusion and DC heparin as per pulmonology recommendations. Her prognosis remains guarded.
[2017-11-01] MEDS: ASPIRIN 81 MG PO SCH (16:55)
[2017-11-01 19:01] LABS: Glucose,Whole Blood 118 mg/dL (75-99)
[2017-11-01 20:00] LABS: Glucose,Whole Blood 122 mg/dL (75-99)
[2017-11-01] MEDS: ATORVASTATIN 10 MG TAB PO SCH (20:06)
--- NOTE | 2017-11-01 21:28 | P.PN ---
Subjective Progress Note Date: 11/01/17 66 year old woman with superobesity presents to the ER with marked increase of shortness of breath, with some chest pain also occurring. At admission there was evidence of worsening of her chronic renal failure and significant volume overload, with some diuresis she is already receiving relief from her extensive shortness of breath. At this time she is not complaining of any chest pain. She was found and she has been seen by pulmonary critical care, and there is a possibility of a thoracentesis future. At this time she denies other acute new complaints. A total contact cast is in place on the left leg for the pressure ulcer to the left heel is negative for any difficulties at all. The chronic ulcerations of the right heel is also without pain. She is aware of improved urinary output since being on the higher doses of Lasix. As noted she has a history of significant underlying coronary artery disease with a history of congestive heart failure with known diastolic dysfunction. She is feeling slightly better at this time but certainly not nearly her baseline. She does have significant debility. 10/28/2017 the patient has declined further today. She is requiring BiPAP for oxygen saturation, she is somewhat confused but does seem to be comfortable. She is unable to complain of any new symptoms 10/29/2017 the patient is much more awake and alert today. Her BiPAP is in place and she is no longer confused. She recognized me by name and knows that she is at the hospital. She is denying significant discomfort in her shortness of breath is improved. October 31, 2017 patient patient is worsen she is now developed respiratory failure and required intubation with mechanical ventilation and is sedated. She' s been seen by nephrology and with volume overload is receiving hemodialysis. The hope is that with dialysis she'll improve her pulmonary status from improved volume status. No fevers are noted. No new positive cultures. 11/01/2017 patient remained intubated sedated and mechanically ventilated with respiratory failure. She is receiving another course of hemodialysis which will hopefully remove a total of 6 L of fluid over this 3 day time frame. She still remains grossly volume overloaded. She fortunately does have some urinary output despite her renal failure that appears to multifactorial including vancomycin therapy. Psychosocial has had great difficulties, it appears that the social workers will ask for guardianship from the courts coming Saturday to make further plans. Objective - Vital Signs Vital signs: Vital Signs Temp 97.5 F L 11/01/17 20:00 Pulse 51 L 11/01/17 20:00 Resp 20 11/01/17 20:00 BP 116/50 11/01/17 20:00 Pulse Ox 98 11/01/17 20:00 Intake & Output 11/01/17 11/01/17 11/02/17 06:59 18:59 06:59 Intake Total 1397 772.560 234 Output Total 805 729 45 Balance 592 43.560 189 Weight 173.3 kg 173.3 kg Intake: IV 153 206 26 0.9 120 120 20 cefTAZidime 1 gm In 50 Sodium Chloride 0.9% 50 ml @ 100 mls/hr IVPB DAILY [facility] Rx#:[id number] pressure bag 33 36 6 Intake, IV Titration 700 410.560 100 Amount Heparin Sod,Pork in 0.45% 500 NaCl 25,000 unit In 0.45 % NaCl 1 500ml.bag @ 13. 344 UNITS/KG/HR 46 mls/hr IV .[id number] [facility] Rx#: [id number] Propofol 1,000 mg In 200 410.560 100 Empty Bag 1 bag @ Titrate IV .Q0M [facility] Rx#: [id number] Tube Feeding 454 156 78 Other 90 30 Output: Urine 805 729 45 Other: Voiding Method Indwelling Catheter Indwelling Catheter ABP, PAP, CO, CI - Last Documented Arterial Blood Pressure 131/45 - Exam 66-year-old woman with superobesity is now intubated sedated and mechanically ventilated Head exam was generally normal. There was no scleral icterus or corneal arcus. Mucous membranes were moist. Neck was supple and without jugular venous distension, thyromegaly, or carotid bruits. Carotids were easily palpable bilaterally. There was no adenopathy. Lungs sounds are diminished bilaterally especially in the right lung base along with some dullness to percussion Heart sounds are regular, positive S1-S2 and there is systolic ejection murmur grade 3/6 systolic the precordium Abdominal exam revealed normal bowel sounds. The abdomen was soft, non-tender, and without masses, organomegaly, or appreciable enlargement of the abdominal aorta. Extremities revealed +1-2 pitting edema there is no cyanosis or clubbing, 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, there is also evidence of chronic venous stasis and lower extremities bilaterally. Left heel measures at 2.4 x 3.5 x 0.2 cm right heel ulceration measuring at 2 x 2 x 0.2 total contact cast was removed by the wound team today. Neurologic sedated on the ventilator - Labs CBC & Chem 7: 11/01/17 04:06 11/01/17 04:06 Labs: Abnormal Lab Results - Last 24 Hours (Table) 10/31/17 11/01/17 11/01/17 Range/Units 04:20 04:06 04:06 RBC 2.62 L (3.80-5.40) m/uL Hgb 7.0 L* (11.4-16.0) gm/dL Hct 21.8 L (34.0-46.0) % RDW 17.5 H (11.5-15.5) % Plt Count 84 L (150-450) k/uL Lymphocytes # 0.7 L (1.0-4.8) k/uL APTT (22.0-30.0) sec ABG pO2 (83-108) mmHg ABG HCO3 (21-25) mmol/L ABG Total CO2 (19-24) mmol/L ABG O2 Saturation (94-97) % BUN 58 H (7-17) mg/dL Creatinine 2.90 H (0.52-1.04) mg/dL Glucose 110 H (74-99) mg/dL POC Glucose (mg/dL) (75-99) mg/dL Calcium 8.0 L (8.4-10.2) mg/dL Phosphorus (2.5-4.5) mg/dL Total Bilirubin 0.1 L (0.2-1.3) mg/dL Total Protein 5.2 L (6.3-8.2) g/dL Albumin 2.4 L (3.5-5.0) g/dL Free [place] LC, Quant 20.30 H (0.33-1.94) mg/dL Free Lambda LC, Quant 2.79 H (0.57-2.63) mg/dL 11/01/17 11/01/17 11/01/17 Range/Units 04:06 04:56 06:30 RBC (3.80-5.40) m/uL Hgb (11.4-16.0) gm/dL Hct (34.0-46.0) % RDW (11.5-15.5) % Plt Count (150-450) k/uL Lymphocytes # (1.0-4.8) k/uL APTT 133.7 H* (22.0-30.0) sec ABG pO2 65 L (83-108) mmHg ABG HCO3 26 H (21-25) mmol/L ABG Total CO2 27 H (19-24) mmol/L ABG O2 Saturation 93.9 L (94-97) % BUN (7-17) mg/dL Creatinine (0.52-1.04) mg/dL Glucose (74-99) mg/dL POC Glucose (mg/dL) (75-99) mg/dL Calcium (8.4-10.2) mg/dL Phosphorus 5.6 H (2.5-4.5) mg/dL Total Bilirubin (0.2-1.3) mg/dL Total Protein (6.3-8.2) g/dL Albumin (3.5-5.0) g/dL Free [place] LC, Quant (0.33-1.94) mg/dL Free Lambda LC, Quant (0.57-2.63) mg/dL 11/01/17 11/01/17 11/01/17 Range/Units 07:06 08:15 11:50 RBC (3.80-5.40) m/uL Hgb (11.4-16.0) gm/dL Hct (34.0-46.0) % RDW (11.5-15.5) % Plt Count (150-450) k/uL Lymphocytes # (1.0-4.8) k/uL APTT (22.0-30.0) sec ABG pO2 (83-108) mmHg ABG HCO3 (21-25) mmol/L ABG Total CO2 (19-24) mmol/L ABG O2 Saturation (94-97) % BUN (7-17) mg/dL Creatinine (0.52-1.04) mg/dL Glucose (74-99) mg/dL POC Glucose (mg/dL) 121 H 121 H 106 H (75-99) mg/dL Calcium (8.4-10.2) mg/dL Phosphorus (2.5-4.5) mg/dL Total Bilirubin (0.2-1.3) mg/dL Total Protein (6.3-8.2) g/dL Albumin (3.5-5.0) g/dL Free [place] LC, Quant (0.33-1.94) mg/dL Free Lambda LC, Quant (0.57-2.63) mg/dL 11/01/17 11/01/17 Range/Units 18:58 19:58 RBC (3.80-5.40) m/uL Hgb (11.4-16.0) gm/dL Hct (34.0-46.0) % RDW (11.5-15.5) % Plt Count (150-450) k/uL Lymphocytes # (1.0-4.8) k/uL APTT (22.0-30.0) sec ABG pO2 (83-108) mmHg ABG HCO3 (21-25) mmol/L ABG Total CO2 (19-24) mmol/L ABG O2 Saturation (94-97) % BUN (7-17) mg/dL Creatinine (0.52-1.04) mg/dL Glucose (74-99) mg/dL POC Glucose (mg/dL) 118 H 122 H (75-99) mg/dL Calcium (8.4-10.2) mg/dL Phosphorus (2.5-4.5) mg/dL Total Bilirubin (0.2-1.3) mg/dL Total Protein (6.3-8.2) g/dL Albumin (3.5-5.0) g/dL Free [place] LC, Quant (0.33-1.94) mg/dL Free Lambda LC, Quant (0.57-2.63) mg/dL Microbiology - Last 24 Hours (Table) 10/26/17 17:30 Blood Culture - Final Blood No Growth after 144 hours 11/01/17 11:01 Fungal Culture - Preliminary Bronchial Washings - Right 11/01/17 11:01 Acid Fast Bacilli Culture - Preliminary Bronchial Washings - Right 11/01/17 11:01 Bronchial Washings Culture - Preliminary Bronchial Washings - Right 10/31/17 21:15 Gram Stain - Preliminary Sputum Sputum Culture - Preliminary 10/30/17 18:45 Urine Culture - Final Urine,Catheterized Laboratory Results WBC 6.5 k/uL (3.8-10.6) 11/01/17 04:06 RBC 2.62 m/uL (3.80-5.40) L 11/01/17 04:06 Hgb 7.0 gm/dL (11.4-16.0) L* 11/01/17 04:06 Hct 21.8 % (34.0-46.0) L 11/01/17 04:06 MCV 83.1 fL (80.0-100.0) 11/01/17 04:06 MCH 26.8 pg (25.0-35.0) 11/01/17 04:06 MCHC 32.3 g/dL (31.0-37.0) 11/01/17 04:06 RDW 17.5 % (11.5-15.5) H 11/01/17 04:06 Plt Count 84 k/uL (150-450) L 11/01/17 04:06 Neutrophils % 76 % 11/01/17 04:06 Lymphocytes % 11 % 11/01/17 04:06 Monocytes % 7 % 11/01/17 04:06 Eosinophils % 4 % 11/01/17 04:06 Basophils % 0 % 11/01/17 04:06 Neutrophils # 5.0 k/uL (1.3-7.7) 11/01/17 04:06 Lymphocytes # 0.7 k/uL (1.0-4.8) L 11/01/17 04:06 Monocytes # 0.5 k/uL (0-1.0) 11/01/17 04:06 Eosinophils # 0.3 k/uL (0-0.7) 11/01/17 04:06 Basophils # 0.0 k/uL (0-0.2) 11/01/17 04:06 Manual Slide Review Performed 11/01/17 04:06 Hypochromasia Moderate 11/01/17 04:06 Anisocytosis Slight 11/01/17 04:06 ESR 69 mm/hr (0-20) H 10/28/17 05:47 Retic Count 2.6 % (0.5-2.0) H 10/28/17 05:47 PT 10.0 sec (9.0-12.0) 10/25/17 13:20 INR 1.0 (<1.2) 10/25/17 13:20 APTT 133.7 sec (22.0-30.0) H* 11/01/17 06:30 D-Dimer 1.80 mg/L FEU (<0.60) H 10/25/17 13:20 Sample Site lore 11/01/17 04:56 ABG pH 7.40 (7.35-7.45) 11/01/17 04:56 ABG pCO2 41 mmHg (35-45) 11/01/17 04:56 ABG pO2 65 mmHg (83-108) L 11/01/17 04:56 ABG HCO3 26 mmol/L (21-25) H 11/01/17 04:56 ABG Total CO2 27 mmol/L (19-24) H 11/01/17 04:56 ABG O2 Saturation 93.9 % (94-97) L 11/01/17 04:56 ABG Base Excess 0.7 mmol/L 11/01/17 04:56 Timothy Test Yes 11/01/17 04:56 FiO2 40 % 11/01/17 04:56 Sodium 137 mmol/L (137-145) 11/01/17 04:06 Potassium 3.7 mmol/L (3.5-5.1) 11/01/17 04:06 Chloride 106 mmol/L (98-107) 11/01/17 04:06 Carbon Dioxide 25 mmol/L (22-30) 11/01/17 04:06 Anion Gap 6 mmol/L 11/01/17 04:06 BUN 58 mg/dL (7-17) H 11/01/17 04:06 Creatinine 2.90 mg/dL (0.52-1.04) H 11/01/17 04:06 Est GFR (CKD-EPI)AfAm 19 (>60 ml/min/1.73 sqM) 11/01/17 04:06 Est GFR (CKD-EPI)NonAf 16 (>60 ml/min/1.73 sqM) 11/01/17 04:06 Glucose 110 mg/dL (74-99) H 11/01/17 04:06 POC Glucose (mg/dL) 122 mg/dL (75-99) H 11/01/17 19:58 POC Glu Duck Operator ID Dakotah Aaron 11/01/17 19:[address] Glu mg/dL 103 10/31/17 04:20 Hemoglobin A1c 5.2 % (4.0-6.0) 10/31/17 04:20 Plasma Lactic Acid Jamar <0.5 mmol/L (0.7-2.0) L 10/31/17 04:20 Calcium 8.0 mg/dL (8.4-10.2) L 11/01/17 04:06 Phosphorus 5.6 mg/dL (2.5-4.5) H 11/01/17 04:06 Magnesium 1.9 mg/dL (1.6-2.3) 11/01/17 04:06 Iron 114 ug/dL (50-170) 10/27/17 05:21 TIBC 252 ug/dL (228-460) 10/27/17 05:21 Iron Saturation 45.24 (12.00-45.00) H 10/27/17 05:21 Ferritin 64.7 ng/mL (10.0-291.0) 10/27/17 05:21 Total Bilirubin 0.1 mg/dL (0.2-1.3) L 11/01/17 04:06 AST 14 U/L (14-36) 11/01/17 04:06 ALT 32 U/L (9-52) 11/01/17 04:06 Alkaline Phosphatase 51 U/L (38-126) 11/01/17 04:06 Total Creatine Kinase 22 U/L (30-135) L 10/29/17 05:28 CK-MB (CK-2) 1.5 ng/mL (0.0-2.4) 10/29/17 05:28 CK-MB (CK-2) Rel Index 6.8 10/29/17 05:28 Troponin I <0.012 ng/mL (0.000-0.034) 10/26/17 05:40 C-Reactive Protein 14.6 mg/L (<10.0) H 10/28/17 05:47 NT-Pro-B Natriuret Pep 3960 pg/mL 10/25/17 13:20 Total Protein 5.2 g/dL (6.3-8.2) L 11/01/17 04:06 Total Protein (PEP) 6.1 g/dL (6.2-8.2) L 10/28/17 05:47 Albumin 2.4 g/dL (3.5-5.0) L 11/01/17 04:06 Albumin (PEP) 2.76 g/dL (3.80-4.90) L 10/28/17 05:47 Teaoi-2-Itfdnuogz 0.45 g/dL (0.10-0.40) H 10/28/17 05:47 Nedax-1-Zgevorgvd 0.59 g/dL (0.60-1.00) L 10/28/17 05:47 Beta Globulins 1.38 g/dL (0.60-1.30) H 10/28/17 05:47 Gamma Globulins 0.92 g/dL (0.70-1.50) 10/28/17 05:47 PEP Interpretation SEE NOTE 10/28/17 05:47 TSH 1.370 mIU/L (0.465-4.680) 10/31/17 04:20 Cortisol 24 ug/dL 10/31/17 04:20 Urine Color Red 10/30/17 18:45 Urine Appearance Turbid (Clear) H 10/30/17 18:45 Urine pH 5.5 (5.0-8.0) 10/30/17 18:45 Ur Specific [place] 1.015 (1.001-1.035) 10/30/17 18:45 Urine Protein 2+ (Negative) H 10/30/17 18:45 Urine Glucose (UA) Trace (Negative) H 10/30/17 18:45 Urine Ketones Negative (Negative) 10/30/17 18:45 Urine Blood Large (Negative) H 10/30/17 18:45 Urine Nitrite Negative (Negative) 10/30/17 18:45 Urine Bilirubin Negative (Negative) 10/30/17 18:45 Urine Urobilinogen <2.0 mg/dL (<2.0) 10/30/17 18:45 Ur Leukocyte Esterase Large (Negative) H 10/30/17 18:45 Urine RBC 113 /hpf (0-5) H 10/30/17 18:45 Urine WBC >182 /hpf (0-5) H 10/30/17 18:45 Urine WBC Clumps Many /hpf (None) H 10/30/17 18:45 Ur Squamous Epith Cells 1 /hpf (0-4) 10/28/17 02:27 Urine Bacteria Many /hpf (None) H 10/30/17 18:45 Granular Casts 129 /lpf (0) 10/30/17 18:45 Urine Yeast (Budding) Rare /hpf (None) H 10/28/17 02:27 Fluid Source Bronchial Wash 11/01/17 11:01 Fluid Color Colorless 11/01/17 11:01 Fluid Appearance Cloudy 11/01/17 11:01 Fluid RBC 385 /uL 11/01/17 11:01 Fluid Nucleated Cells 25 /uL 11/01/17 11:01 Fluid Polynuclear WBCs 49 % 11/01/17 11:01 Fluid Mononuclear WBCs 50 % 11/01/17 11:01 Fluid Eosinophils 1 % 11/01/17 11:01 Random Vancomycin 32.5 ug/mL 10/31/17 04:20 Serum ALYCE Interpret SEE NOTE 10/28/17 05:47 DIANNE Screen NEGATIVE (NEGATIVE) 10/28/17 05:47 c-ANCA <1:20 Titer (<1:20) 10/25/17 13:00 p-ANCA <1:20 Titer (<1:20) 10/25/17 13:00 Complement C3 156.0 mg/dL (80.0-207.0) 10/28/17 05:47 Complement C4 33.6 mg/dL (10.0-53.0) 10/28/17 05:47 Tot Complement (CH50) 91 U/mL (42 - 95) 10/29/17 05:28 Free [place] LC, Quant 20.30 mg/dL (0.33-1.94) H 10/31/17 04:20 Free Lambda LC, Quant 2.79 mg/dL (0.57-2.63) H 10/31/17 04:20 Hepatitis A IgM Ab Non-Reactive (Non-Reactive) 10/28/17 05:47 Hep Bs Antigen Non-Reactive (Non-Reactive) 10/30/17 19:00 Hep Bs Antibody Non-Reactive (Non-Reactive) 10/30/17 19:00 Hep Bs Antibody, Quant 3.5 mIU/mL 10/30/17 19:00 Hep B Core IgM Ab Non-Reactive (Non-Reactive) 10/28/17 05:47 Hep C IgG Ab Non-Reactive (Non-Reactive) 10/28/17 05:47 Blood Type B Positive 10/26/17 18:58 Blood Type Recheck No 10/26/17 18:58 Antibody Screen NEGATIVE 10/26/17 18:58 Crossmatch See Detail 10/26/17 18:58 Spec Expiration Date 10/29/2017 10/26/17 18:58 Microbiology 10/26/17 17:30 Blood Blood Culture - Final No Growth after 144 hours 11/01/17 11:01 Bronchial Washings - Right Fungal Culture - Preliminary 11/01/17 11:01 Bronchial Washings - Right Acid Fast Bacilli Culture - Preliminary 11/01/17 11:01 Bronchial Washings - Right Bronchial Washings Culture - Preliminary 10/31/17 21:15 Sputum Gram Stain - Preliminary 10/31/17 21:15 Sputum Sputum Culture - Preliminary 10/30/17 18:45 Urine,Catheterized Urine Culture - Final 10/25/17 18:17 Blood Blood Culture Gram Stain - Final 10/25/17 18:17 Blood Blood Culture - Final Staphylococcus epidermidis 10/28/17 02:27 Urine,Voided Urine Culture - Final 10/26/17 20:41 Ankle - Right Gram Stain - Final 10/26/17 20:41 Ankle - Right Wound Culture - Final Klebsiella oxytoca Pseudomonas aeruginosa 10/25/17 18:17 Blood Blood Culture - Final Assessment and Plan (1) Diabetes mellitus type 2, uncontrolled, with complications Current Visit: No Status: Acute Code(s): E11.8 - TYPE 2 DIABETES MELLITUS WITH UNSPECIFIED COMPLICATIONS; E11.65 - TYPE 2 DIABETES MELLITUS WITH HYPERGLYCEMIA SNOMED Code(s): 359412044 (2) Diabetic ulcer of heel Narrative/Plan: 66-year-old woman who has superobesity presented to Hospital from the extended care facility with increasing shortness of breath. If the admission there is evidence of fluid overload and worsening of her chronic diastolic congestive heart failure. It is noted that she has developed a right pleural effusion and has been seen by pulmonary medicine. Goal will be for further diuresis before any attempt of a thoracentesis. She this point and was more comfortable than admission, appears her chest pain has improved. Physical chronic ulcerations the left heel and a total contact cast is in place. This is removed tomorrow. The ulceration to the right heel has the Opticel silver in place which is adequate and can be changed every other day. She does have a chronic anemia that has worsened over the last year. This may be worsening her heart failure and will be further evaluated at this time. She is being treated for this significant infection to heal with intravenous vancomycin at the [facility] care facility. Vancomycin will continue also had and Rocephin now based on prior culture results. Patient is a blood culture drawn it appears to be contamination would need no further ulceration of treatment unless there are further positive blood cultures. Given that she does not have fevers or chills it is not likely that she has a line sepsis. 10/28/2017 patient statuses worsened today. Her pulmonary status seems to have declined and she is requiring BiPAP for adequate oxygenation. She is more confused with her current respiratory difficulties. She however is not agitated and does not seem to be uncomfortable. BiPAP is reapplied and is being watched closely to try to keep into place. Blood culture contamination. Wound culture has gram-negative bacilli and at this time vancomycin is being continued to complete his course of therapy from the prior bony infection, Rocephin is being utilized until there is further culture data. Her prognosis is poor. 10/29/2017 the patient is improved today. With her BiPAP and place her mentation is clear. The ulceration of the left heel will be treated with the silver alginate dressing also. Antibiotic therapy will be altered from Rocephin to ceftazidime given the isolated Klebsiella and Pseudomonas. She continues to have difficulty with her renal failure is being followed by nephrology. She is yet to clear her last dose of antibiotic therapy (vancomycin ) that was given before her admission. The patient is very weak and will need to complete a course of physical therapy before she will be able to get back to her home setting. Nephrology is relating if she does not have further improvement they will then consider renal replacement therapy to improve her fracture volume overload chronic respiratory failure and acidosis. 10/31 2017 d the patient is now developed respiratory failure and is required intubation with sedation and mechanical ventilation. She is comfortable at this time and is well sedated. Receiving hemodialysis to improve her volume overload and her acidosis. The acute renal failure appears to be multifactorial and it is as she has been vancomycin therapy. 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 She is nearing the end of course of that treatment and with the renal failure the vancomycin level has remained high for the last several days and likely will be able to complete course of therapy without any further dosing. With the gram negatives being seen from the ankle culture Rocephin was added. This is transition to ceftazidime given the finding of pseudomonas at the site. 11/01/2017reveals the patient to remain on the ventilator is intubated and sedated, seems comfortable. Seething further courses of hemodialysis today. Goal is for further fluid removal to improve her volume overload status to improve her respiratory failure. Her sepsis appears to be stable. She will receive no further doses of vancomycin at this time still has adequate levels at this time. She had mucus plugging earlier in the day and a bronchoscopy was performed urgently. Cultures are pending which will further direct antimicrobial therapy as needed. Pathogens isolated from the leg Fortaz is being utilized with also cover pneumonia, still has therapeutic levels of vancomycin. Current Visit: No Status: Acute Code(s): E11.621 - TYPE 2 DIABETES MELLITUS WITH FOOT ULCER; L97.409 - NON-PRS CHRONIC ULCER OF UNSP HEEL AND MIDFOOT W UNSP SEVERT SNOMED Code(s): 66936711 (3) Severe obesity (BMI >= 40) Current Visit: No Status: Acute Code(s): E66.01 - MORBID (SEVERE) OBESITY DUE TO EXCESS CALORIES SNOMED Code(s): 174082644
[2017-11-02] MEDS: PROPOFOL 1,000 MG in EMPTY BAG 1 BAG IV SCH ×11 (01:15→23:28)
[2017-11-02] MEDS: IPRATROPIUM-ALBUTEROL 3 ML NEB INHALATION SCH ×6 (03:04→23:14)
[2017-11-02 04:16] LABS: ABG Base Excess 3.9 mmol/L; ABG HCO3 28 mmol/L (21-25); ABG Oxygen Saturation 91.8 % (94-97); ABG PCO2 44 mmHg (35-45); ABG PH 7.42 (7.35-7.45); ABG PO2 59 mmHg (83-108); ABG TCO2 30 mmol/L (19-24)
[2017-11-02 04:38] LABS: Anisocytosis Slight; Basophils % (A) 0 %; Eosinophils # (A) 0.3 k/uL (0-0.7); Eosinophils % (A) 4 %; HCT 21.4 % (34.0-46.0); HGB 7.1 gm/dL (11.4-16.0); Hypochromasia Slight; Lymphocytes # (A) 0.7 k/uL (1.0-4.8); Lymphocytes % (A) 11 %; MCH 27.1 pg (25.0-35.0); MCV 82.2 fL (80.0-100.0); Mean Platelet Volume 10.8; Monocytes # (A) 0.4 k/uL (0-1.0); Monocytes % (A) 7 %; Neutrophils # (A) 4.9 k/uL (1.3-7.7); Neutrophils % (A) 77 %; Platelet Count 67 k/uL (150-450); WBC 6.3 k/uL (3.8-10.6)
[2017-11-02 05:02] LABS: Albumin 2.3 g/dL (3.5-5.0); Magnesium 1.8 mg/dL (1.6-2.3); Potassium 3.5 mmol/L (3.5-5.1); Total Bilirubin 0.2 mg/dL (0.2-1.3); Total Protein 4.9 g/dL (6.3-8.2)
[2017-11-02 05:08] LABS: Vancomycin,Random 25.1 ug/mL
--- NOTE | 2017-11-02 06:16 | XR ---
EXAMINATION TYPE: XR chest 1V portable DATE OF EXAM: 11/02/2017 HISTORY: Tube placement. REFERENCE: Previous study dated 11/01/2017. FINDINGS: The patient's ET tube and NG tube as well as the right internal jugular catheter remain in place, unchanged in appearance. There is slight improvement in aeration of the right lung. There is left basilar airspace disease. I suspect bilateral effusions. IMPRESSION: MINIMAL IMPROVEMENT IN THE AERATION OF THE RIGHT LUNG.
[2017-11-02 06:40] LABS: Glucose,Whole Blood 135 mg/dL (75-99)
[2017-11-02] MEDS: CHLORHEXIDINE GLUCONATE 15 ML CUP MUCOUS MEM SCH ×2 (08:59→21:37)
[2017-11-02] MEDS: FUROSEMIDE 10 MG/ML 10 ML VIAL IV SCH ×3 (08:59→23:29)
[2017-11-02] MEDS: SODIUM BICARBONATE TAB 650 MG TAB PO SCH ×2 (09:00→21:37)
[2017-11-02] MEDS: PANTOPRAZOLE 40 MG/10 ML VIAL IVP SCH (09:00)
--- NOTE | 2017-11-02 09:00 | P.PN ---
Subjective Progress Note Date: 11/02/17 Principal diagnosis: Respiratory failure Progress note dated 10/31/2017 66-year-old morbidly obese female with a history of heart failure. The patient was on the floor yesterday but developed worsening shortness of breath and was transferred over to the ICU. I chose to electively intubate her throughout the night. This happened probably in about 3:00 in the morning. Respiratory status was discussed declining significantly. Despite receiving hemodialysis, her respiratory status declined and we intubated her. This occurred on October 31. Currently she is on the ventilator on the volume assist control mode, her weight is set at 20 tidal volume 400 FiO2 100% and PEEP of 5. Arterial blood gases on those similar settings except for a rate of 16 show a PaO2 of 69. PaCO2 56 and a pH of 7.23. She is currently on a saline IV at 10 mL an hour, propofol at 45 mics per kilogram per minute, heparin via weightbase protocol and norepinephrine 5 mcg/m. She does have an arterial line in place and adequate IV access. Chest x-ray shows a pattern of worsening heart failure and bilateral effusions, right greater than left. In addition to heart failure respiratory failure and obesity, she has a history of stage III chronic kidney disease chronic anemia diabetes chronic lower extremity edema and cellulitis nonhealing foot ulcer and essential hypertension. Also, her lower extremity ulcerations were positive for Pseudomonas and Klebsiella. Her overall prognosis remains extremely poor. We will have to discuss CODE STATUS with the family. Progress note dated 11/01/2017 66-year-old morbidly obese female with a history of heart failure. She developed respiratory failure and required intubation and mechanical ventilation. Her respiratory status has been declining through the night 2 nights ago and we decided to go ahead and electively intubate her. The patient remains on the mechanical ventilator. She is on the volume assist control mode with a rate of 20, tidal volume is 400 FiO2 40% and PEEP of 8. Arterial blood gases show a PaO2 of 65 a PaCO2 41 and a pH of 7.40. She currently is on propofol at 50 mics kilogram per minute heparin has been discontinued a saline IV at 10 mL an hour and tube feeds with Nepro at 26. An arterial line was placed by myself on October 31. Hemodialysis on October 31 and 2 L was removed. Blood cultures were positive for Staphylococcus epidermidis and a ankle culture was positive for Klebsiella and Pseudomonas. Chest x-ray shows complete collapse of the right lung and she will require bronchoscopy today. Lab values include a white count of 6.5 hemoglobin 7 hematocrit 21.8 and a platelet count of 84,000. Sodium potassium chloride CO2 are normal. Anion gap is normal. BUN and creatinine were 58 and 2.90. Progress note dated 11/02/2017 66-year-old morbidly obese female with history of heart failure. She ended up developing respiratory failure and required intubation a few nights ago. The patient remains on the ventilator. I will ask the cardiothoracic surgeons to see her for tracheostomy and PEG tube placement. She is on the volume assist control mode with a rate of 20, tidal volume 400, FiO2 50% and a PEEP of 8 which is going to be increased to a PEEP of 10. The patient's most recent arterial blood gases show a PaO2 of 59, PaCO2 44 and a pH of 7.42. She remains on propofol at 50 mics per kilogram per minute, saline at 10 mL an hour and tube feeds with Nepro at 26 with a goal of 26 mL an hour. She is also getting water flushes. Yesterday, she underwent bronchoscopy in the room for right lung collapse. It's only minimally improved today. She did have Dopplers of the lower extremities. There were negative for DVT. She intermittently stable through the night. Her overall prognosis is poor and I think she'll end up at a long-term acute care facility [facility] Objective - Vital Signs Vital signs: Vital Signs Temp 98.2 F 11/02/17 08:30 Pulse 61 11/02/17 08:30 Resp 33 H 11/02/17 08:30 BP 126/46 11/02/17 08:30 Pulse Ox 95 11/02/17 08:30 Intake & Output 11/01/17 11/02/17 11/02/17 18:59 06:59 18:59 Intake Total 418.954 3079 176 Output Total 729 495 65 Balance 43.560 667 111 Weight 173.3 kg 172.4 kg Intake: IV 206 156 23 0.9 120 120 20 cefTAZidime 1 gm In 50 Sodium Chloride 0.9% 50 ml @ 100 mls/hr IVPB DAILY [facility] Rx#:[id number] pressure bag 36 36 3 Intake, IV Titration 410.560 500 100 Amount Propofol 1,000 mg In 410.560 500 100 Empty Bag 1 bag @ Titrate IV .Q0M [facility] Rx#: [id number] Tube Feeding 156 416 53 Other 90 Output: Urine 729 495 65 Other: Voiding Method Indwelling Catheter Indwelling Catheter Indwelling Catheter ABP, PAP, CO, CI - Last Documented Arterial Blood Pressure 151/50 - Exam No acute distress, sedated, with an orally placed endotracheal tube and NG tube. HEENT examination is grossly unremarkable. Mucous membranes are moist. Neck supple. Full range of motion. No adenopathy thyromegaly or neck vein distention. Cardiovascular examination reveals regular rhythm rate. S1-S2 normal. No S3 or S4. No discernible murmur noted. Heart sounds are very distant. Lungs reveal severely diminished breath sounds bilaterally, right greater than left. There are bilateral coarse rhonchi. Crackles are noted at both bases. No wheezes are appreciated. Very little air entry on the right side noted. Breath sounds are about what they were the day before. There is not been much change. Abdomen soft bowel sounds are heard. No masses or tenderness. Extremities are intact. Chronic lower extremity edema is noted. She also is chronic venous stasis changes with hyperpigmentation. Heels are bandaged. Slightly improved edema of the lower extremities is noted. Skin is without rash or lesion. Neurologic examination could not be assessed. - Labs CBC & Chem 7: 11/02/17 04:30 11/02/17 04:30 Labs: Abnormal Lab Results - Last 24 Hours (Table) 10/31/17 11/01/17 11/01/17 Range/Units 04:20 11:50 18:58 RBC (3.80-5.40) m/uL Hgb (11.4-16.0) gm/dL Hct (34.0-46.0) % RDW (11.5-15.5) % Plt Count (150-450) k/uL Lymphocytes # (1.0-4.8) k/uL ABG pO2 (83-108) mmHg ABG HCO3 (21-25) mmol/L ABG Total CO2 (19-24) mmol/L ABG O2 Saturation (94-97) % BUN (7-17) mg/dL Creatinine (0.52-1.04) mg/dL Glucose (74-99) mg/dL POC Glucose (mg/dL) 106 H 118 H (75-99) mg/dL Calcium (8.4-10.2) mg/dL Phosphorus (2.5-4.5) mg/dL Total Protein (6.3-8.2) g/dL Albumin (3.5-5.0) g/dL Free [place] LC, Quant 20.30 H (0.33-1.94) mg/dL Free Lambda LC, Quant 2.79 H (0.57-2.63) mg/dL 11/01/17 11/02/17 11/02/17 Range/Units 19:58 04:14 04:30 RBC 2.60 L (3.80-5.40) m/uL Hgb 7.1 L (11.4-16.0) gm/dL Hct 21.4 L (34.0-46.0) % RDW 18.0 H (11.5-15.5) % Plt Count 67 L (150-450) k/uL Lymphocytes # 0.7 L (1.0-4.8) k/uL ABG pO2 59 L (83-108) mmHg ABG HCO3 28 H (21-25) mmol/L ABG Total CO2 30 H (19-24) mmol/L ABG O2 Saturation 91.8 L (94-97) % BUN (7-17) mg/dL Creatinine (0.52-1.04) mg/dL Glucose (74-99) mg/dL POC Glucose (mg/dL) 122 H (75-99) mg/dL Calcium (8.4-10.2) mg/dL Phosphorus (2.5-4.5) mg/dL Total Protein (6.3-8.2) g/dL Albumin (3.5-5.0) g/dL Free [place] LC, Quant (0.33-1.94) mg/dL Free Lambda LC, Quant (0.57-2.63) mg/dL 11/02/17 11/02/17 11/02/17 Range/Units 04:30 04:30 06:38 RBC (3.80-5.40) m/uL Hgb (11.4-16.0) gm/dL Hct (34.0-46.0) % RDW (11.5-15.5) % Plt Count (150-450) k/uL Lymphocytes # (1.0-4.8) k/uL ABG pO2 (83-108) mmHg ABG HCO3 (21-25) mmol/L ABG Total CO2 (19-24) mmol/L ABG O2 Saturation (94-97) % BUN 46 H (7-17) mg/dL Creatinine 2.00 H (0.52-1.04) mg/dL Glucose 110 H (74-99) mg/dL POC Glucose (mg/dL) 135 H (75-99) mg/dL Calcium 8.0 L (8.4-10.2) mg/dL Phosphorus 4.7 H (2.5-4.5) mg/dL Total Protein 4.9 L (6.3-8.2) g/dL Albumin 2.3 L (3.5-5.0) g/dL Free [place] LC, Quant (0.33-1.94) mg/dL Free Lambda LC, Quant (0.57-2.63) mg/dL Microbiology - Last 24 Hours (Table) 11/01/17 11:01 Acid Fast Bacilli Smear - Final Bronchial Washings - Right Acid Fast Bacilli Culture - Preliminary 11/01/17 11:01 Gram Stain - Preliminary Bronchial Washings - Right Bronchial Washings Culture - Preliminary 10/26/17 17:30 Blood Culture - Final Blood No Growth after 144 hours 11/01/17 11:01 Fungal Culture - Preliminary Bronchial Washings - Right 10/31/17 21:15 Gram Stain - Preliminary Sputum Sputum Culture - Preliminary Assessment and Plan Assessment: Assessment Hypoxemic respiratory failure, likely related to underlying CHF and bilateral pleural effusions, requiring intubation and mechanical ventilation on October 31 Complete collapse of the right lung, which will require bronchoscopy, 11/01/2017 Morbid obesity Chronic stage III kidney disease, with recent initiation of hemodialysis Anemia of chronic disease and of chronic renal failure Diabetes mellitus Chronic lower extremity edema Nonhealing ulcers of the lower semis History of hypertension Cellulitis of her extremities secondary to both Pseudomonas and Klebsiella Plan: Plan dated 10/31/2017 The patient's vent settings were adjusted slightly. The rate was increased from 16-20. The patient will have her PEEP increased to see if we can reduce the FiO2. In addition, the patient will have daily chest x-rays and labs. She is on propofol for sedation heparin via weightbase protocol and norepinephrine for blood pressure support. She remains on updrafts every 4 and antibiotics. White count is 8.3 hemoglobin 7.6 hematocrit 25.5 and platelet count 116,000. Sodium and potassium are normal. Chloride 109, CO2 24, anion gap normal and BUN and creatinine were 70 and 3.60. Urinalysis is likely consistent with a urinary tract infection. The patient remains on vancomycin and Fortaz. Critical care time 34 minutes Plan dated 11/01/2017 The patient will require bronchoscopy today to open up that right lung. Labs x- rays a medications are reviewed. She remains on propofol at 50 mics per kilogram per minute and heparin has been discontinued. She is being nourished. Vent settings are appropriate. Arterial blood gases are reasonable. Arterial line was placed on October 31. She received hemodialysis on October 31 and 2 L was removed. Overall prognosis remains very poor. She remains on antibiotics. She may end up requiring a tracheostomy and PEG tube. Additional recommendations and suggestions are forthcoming. Critical care time 33 minutes Plan dated 11/02/2017 The patient underwent bronchoscopy yesterday for right lung collapse. The right lung is somewhat improved today. We will increase the PEEP from 8-10 to improve oxygenation and see if we can't pop open that right lung a bit more. Her vent settings are otherwise appropriate. She remains on sedation with propofol. She is being nurse. Dopplers of lower extremities were negative for DVT. White count is 6.3 hemoglobin 7.1 hematocrit 21.4 and platelet count is 67 ,000. Sodium potassium chloride CO2 normal. Anion gap is normal. BUN and creatinine were 46 and 2.0. There are no new microbiologic data. We will ask cardiothoracic to see the patient for tracheostomy and PEG tube placement sometime next week. We'll continue to monitor closely. Prognosis is very guarded. She may end up at a long-term acute care facility status post tracheostomy and PEG tube placement. Critical care time 34 minutes Time with Patient: Greater than 30
[2017-11-02] MEDS: NYSTATIN 100,000 UNIT/GM POWD 15 GM TOPICAL SCH ×2 (09:05→21:37)
--- NOTE | 2017-11-02 10:23 | P.PN ---
Subjective Progress Note Date: 11/02/17 Principal diagnosis: This is a 66-year-old female seen in consultation because of acute kidney injury from cardiorenal syndrome and vancomycin. She was started on dialysis and has had 3 dialysis treatment as of yesterday. He remains intubated on 50% FiO2. She is sedated obtunded. She is known with chronic kidney disease stage III likely from diabetic nephropathy, diabetes, obesity, staph epidermidis bacteremia possible contaminant, Objective - Vital Signs Vital signs: Vital Signs Temp 98.2 F 11/02/17 08:30 Pulse 61 11/02/17 08:30 Resp 33 H 11/02/17 08:30 BP 126/46 11/02/17 08:30 Pulse Ox 95 11/02/17 08:30 Intake & Output 11/01/17 11/02/17 11/02/17 18:59 06:59 18:59 Intake Total 129.535 6952 176 Output Total 729 495 65 Balance 43.560 667 111 Weight 173.3 kg 172.4 kg Intake: IV 206 156 23 0.9 120 120 20 cefTAZidime 1 gm In 50 Sodium Chloride 0.9% 50 ml @ 100 mls/hr IVPB DAILY [facility] Rx#:[id number] pressure bag 36 36 3 Intake, IV Titration 410.560 500 100 Amount Propofol 1,000 mg In 410.560 500 100 Empty Bag 1 bag @ Titrate IV .Q0M [facility] Rx#: [id number] Tube Feeding 156 416 53 Other 90 Output: Urine 729 495 65 Other: Voiding Method Indwelling Catheter Indwelling Catheter Indwelling Catheter ABP, PAP, CO, CI - Last Documented Arterial Blood Pressure 151/50 Examination she is on vent, obtunded. HEENT exam no JVP neck is supple no facial asymmetry pupils are equal. Lungs are clear to auscultation fair air entry bilaterally Heart sounds are normal no no murmur rub gallop normal sinus rhythm on the monitor Abdomen is obese non-distended. No masses felt Extremity exam was tight edema 2+. There is scaliness of the skin. Her feet are wrapped up in dressings. Neurologically obtunded sedated on the vent - Labs CBC & Chem 7: 11/02/17 04:30 11/02/17 04:30 Labs: Abnormal Lab Results - Last 24 Hours (Table) 10/31/17 11/01/17 11/01/17 Range/Units 04:20 11:50 18:58 RBC (3.80-5.40) m/uL Hgb (11.4-16.0) gm/dL Hct (34.0-46.0) % RDW (11.5-15.5) % Plt Count (150-450) k/uL Lymphocytes # (1.0-4.8) k/uL ABG pO2 (83-108) mmHg ABG HCO3 (21-25) mmol/L ABG Total CO2 (19-24) mmol/L ABG O2 Saturation (94-97) % BUN (7-17) mg/dL Creatinine (0.52-1.04) mg/dL Glucose (74-99) mg/dL POC Glucose (mg/dL) 106 H 118 H (75-99) mg/dL Calcium (8.4-10.2) mg/dL Phosphorus (2.5-4.5) mg/dL Total Protein (6.3-8.2) g/dL Albumin (3.5-5.0) g/dL Free [place] LC, Quant 20.30 H (0.33-1.94) mg/dL Free Lambda LC, Quant 2.79 H (0.57-2.63) mg/dL 11/01/17 11/02/17 11/02/17 Range/Units 19:58 04:14 04:30 RBC 2.60 L (3.80-5.40) m/uL Hgb 7.1 L (11.4-16.0) gm/dL Hct 21.4 L (34.0-46.0) % RDW 18.0 H (11.5-15.5) % Plt Count 67 L (150-450) k/uL Lymphocytes # 0.7 L (1.0-4.8) k/uL ABG pO2 59 L (83-108) mmHg ABG HCO3 28 H (21-25) mmol/L ABG Total CO2 30 H (19-24) mmol/L ABG O2 Saturation 91.8 L (94-97) % BUN (7-17) mg/dL Creatinine (0.52-1.04) mg/dL Glucose (74-99) mg/dL POC Glucose (mg/dL) 122 H (75-99) mg/dL Calcium (8.4-10.2) mg/dL Phosphorus (2.5-4.5) mg/dL Total Protein (6.3-8.2) g/dL Albumin (3.5-5.0) g/dL Free [place] LC, Quant (0.33-1.94) mg/dL Free Lambda LC, Quant (0.57-2.63) mg/dL 11/02/17 11/02/17 11/02/17 Range/Units 04:30 04:30 06:38 RBC (3.80-5.40) m/uL Hgb (11.4-16.0) gm/dL Hct (34.0-46.0) % RDW (11.5-15.5) % Plt Count (150-450) k/uL Lymphocytes # (1.0-4.8) k/uL ABG pO2 (83-108) mmHg ABG HCO3 (21-25) mmol/L ABG Total CO2 (19-24) mmol/L ABG O2 Saturation (94-97) % BUN 46 H (7-17) mg/dL Creatinine 2.00 H (0.52-1.04) mg/dL Glucose 110 H (74-99) mg/dL POC Glucose (mg/dL) 135 H (75-99) mg/dL Calcium 8.0 L (8.4-10.2) mg/dL Phosphorus 4.7 H (2.5-4.5) mg/dL Total Protein 4.9 L (6.3-8.2) g/dL Albumin 2.3 L (3.5-5.0) g/dL Free [place] LC, Quant (0.33-1.94) mg/dL Free Lambda LC, Quant (0.57-2.63) mg/dL Microbiology - Last 24 Hours (Table) 11/01/17 11:01 Acid Fast Bacilli Smear - Final Bronchial Washings - Right Acid Fast Bacilli Culture - Preliminary 11/01/17 11:01 Gram Stain - Preliminary Bronchial Washings - Right Bronchial Washings Culture - Preliminary 10/26/17 17:30 Blood Culture - Final Blood No Growth after 144 hours 11/01/17 11:01 Fungal Culture - Preliminary Bronchial Washings - Right 10/31/17 21:15 Gram Stain - Preliminary Sputum Sputum Culture - Preliminary Assessment and Plan Assessment: Impression 1. HTN secondary to cardiorenal syndrome and vancomycin with dialysis dependency last dialysis yesterday which was number third dialysis. 2. Fluid overloaded with edema,on Lasix urine output is 12 24 mL for the last 24 hours 3 . Chronic kidney disease stage III, etiology is diabetic nephropathy and nephrosclerosis. 4. Ventilator pendent respiratory failure 5. Diabetes and diabetic nephropathy 6. Collapsed right lung, status post bronchoscopy 11/01/2017, chest shows minimal improvement 7. Anemia hemoglobin 7.1 Recommendation. 1. Increase Lasix to 82 8 IV. 2. Will hold off hemodialysis or the weekend and see how she responds. 3. Watch bicarbonate as his going up may need to reduce the bicarbonate discontinue it
[2017-11-02 11:05] LABS: Glucose,Whole Blood 126 mg/dL (75-99)
--- NOTE | 2017-11-02 11:32 | P.PN ---
Subjective Progress Note Date: 11/02/17 Patient is sedated on ventilator with full support, she is getting PEG tube feeding. She received 3 days of hemofiltration and and tolerated well. Patient has bronc done yesterday for right pulmonary/lung opacification but it was not very successful. Dr. Bey recommended for possible long-term acute care placement with trach and PEG tube placement by the surgical team. Nurses reported the patient's vitals are stable and she is tolerating current management well. Objective - Vital Signs Vital signs: Vital Signs Temp 98.2 F 11/02/17 08:30 Pulse 61 11/02/17 11:00 Resp 31 H 11/02/17 11:00 BP 126/58 11/02/17 11:00 Pulse Ox 93 L 11/02/17 11:00 Intake & Output 11/01/17 11/02/17 11/02/17 18:59 06:59 18:59 Intake Total 619.773 6019 354.268 Output Total 729 495 185 Balance 43.560 667 169.268 Weight 173.3 kg 172.4 kg Intake: IV 206 156 103 0.9 120 120 50 cefTAZidime 1 gm In 50 50 Sodium Chloride 0.9% 50 ml @ 100 mls/hr IVPB DAILY [facility] Rx#:[id number] pressure bag 36 36 3 Intake, IV Titration 410.560 500 198.268 Amount Propofol 1,000 mg In 410.560 500 198.268 Empty Bag 1 bag @ Titrate IV .Q0M [facility] Rx#: [id number] Tube Feeding 156 416 53 Other 90 Output: Urine 729 495 185 Other: Voiding Method Indwelling Catheter Indwelling Catheter Indwelling Catheter ABP, PAP, CO, CI - Last Documented Arterial Blood Pressure 150/48 - Constitutional Constitutional Comment(s): Sedated with full ventilator support and receiving tube feeding. General appearance: Present: no acute distress, obese - Respiratory Respiratory: bilateral: CTA (With some decreased breath sounds right base.), negative: rhonchi, wheezing - Cardiovascular Rhythm: regular Heart sounds: normal: S1, S2 Abnormal Heart Sounds: Absent: systolic murmur, S3 Gallop, S4 Gallop - Gastrointestinal General gastrointestinal: Present: normal bowel sounds, soft - Neurologic Neurologic Comment(s): Sedated with propofol, patient barely opens her eyes with painful stimuli. - Allied health notes Allied health notes reviewed: nursing - Labs CBC & Chem 7: 11/02/17 04:30 11/02/17 04:30 Labs: Abnormal Lab Results - Last 24 Hours (Table) 10/31/17 11/01/17 11/01/17 Range/Units 04:20 11:50 18:58 RBC (3.80-5.40) m/uL Hgb (11.4-16.0) gm/dL Hct (34.0-46.0) % RDW (11.5-15.5) % Plt Count (150-450) k/uL Lymphocytes # (1.0-4.8) k/uL ABG pO2 (83-108) mmHg ABG HCO3 (21-25) mmol/L ABG Total CO2 (19-24) mmol/L ABG O2 Saturation (94-97) % BUN (7-17) mg/dL Creatinine (0.52-1.04) mg/dL Glucose (74-99) mg/dL POC Glucose (mg/dL) 106 H 118 H (75-99) mg/dL Calcium (8.4-10.2) mg/dL Phosphorus (2.5-4.5) mg/dL Total Protein (6.3-8.2) g/dL Albumin (3.5-5.0) g/dL Free [place] LC, Quant 20.30 H (0.33-1.94) mg/dL Free Lambda LC, Quant 2.79 H (0.57-2.63) mg/dL 11/01/17 11/02/17 11/02/17 Range/Units 19:58 04:14 04:30 RBC 2.60 L (3.80-5.40) m/uL Hgb 7.1 L (11.4-16.0) gm/dL Hct 21.4 L (34.0-46.0) % RDW 18.0 H (11.5-15.5) % Plt Count 67 L (150-450) k/uL Lymphocytes # 0.7 L (1.0-4.8) k/uL ABG pO2 59 L (83-108) mmHg ABG HCO3 28 H (21-25) mmol/L ABG Total CO2 30 H (19-24) mmol/L ABG O2 Saturation 91.8 L (94-97) % BUN (7-17) mg/dL Creatinine (0.52-1.04) mg/dL Glucose (74-99) mg/dL POC Glucose (mg/dL) 122 H (75-99) mg/dL Calcium (8.4-10.2) mg/dL Phosphorus (2.5-4.5) mg/dL Total Protein (6.3-8.2) g/dL Albumin (3.5-5.0) g/dL Free [place] LC, Quant (0.33-1.94) mg/dL Free [place]ambda LC, Quant (0.57-2.63) mg/dL 11/02/17 11/02/17 11/02/17 Range/Units 04:30 04:30 06:38 RBC (3.80-5.40) m/uL Hgb (11.4-16.0) gm/dL Hct (34.0-46.0) % RDW (11.5-15.5) % Plt Count (150-450) k/uL Lymphocytes # (1.0-4.8) k/uL ABG pO2 (83-108) mmHg ABG HCO3 (21-25) mmol/L ABG Total CO2 (19-24) mmol/L ABG O2 Saturation (94-97) % BUN 46 H (7-17) mg/dL Creatinine 2.00 H (0.52-1.04) mg/dL Glucose 110 H (74-99) mg/dL POC Glucose (mg/dL) 135 H (75-99) mg/dL Calcium 8.0 L (8.4-10.2) mg/dL Phosphorus 4.7 H (2.5-4.5) mg/dL Total Protein 4.9 L (6.3-8.2) g/dL Albumin 2.3 L (3.5-5.0) g/dL Free [place] LC, Quant (0.33-1.94) mg/dL Free [place]ambda LC, Quant (0.57-2.63) mg/dL 11/02/17 Range/Units 11:04 RBC (3.80-5.40) m/uL Hgb (11.4-16.0) gm/dL Hct (34.0-46.0) % RDW (11.5-15.5) % Plt Count (150-450) k/uL Lymphocytes # (1.0-4.8) k/uL ABG pO2 (83-108) mmHg ABG HCO3 (21-25) mmol/L ABG Total CO2 (19-24) mmol/L ABG O2 Saturation (94-97) % BUN (7-17) mg/dL Creatinine (0.52-1.04) mg/dL Glucose (74-99) mg/dL POC Glucose (mg/dL) 126 H (75-99) mg/dL Calcium (8.4-10.2) mg/dL Phosphorus (2.5-4.5) mg/dL Total Protein (6.3-8.2) g/dL Albumin (3.5-5.0) g/dL Free [place] LC, Quant (0.33-1.94) mg/dL Free [place]ambda LC, Quant (0.57-2.63) mg/dL Microbiology - Last 24 Hours (Table) 11/01/17 11:01 Acid Fast Bacilli Smear - Final Bronchial Washings - Right Acid Fast Bacilli Culture - Preliminary 11/01/17 11:01 Gram Stain - Preliminary Bronchial Washings - Right Bronchial Washings Culture - Preliminary 10/26/17 17:30 Blood Culture - Final Blood No Growth after 144 hours 11/01/17 11:01 Fungal Culture - Preliminary Bronchial Washings - Right 10/31/17 21:15 Gram Stain - Preliminary Sputum Sputum Culture - Preliminary Assessment and Plan (1) Pulmonary edema Narrative/Plan: Pulmonary critical care on case and their input appreciated, patient will be continued on full ventilator support for now. Recommendation is for possible trach placement and long-term acute care facility transfer once more stable medically. Current Visit: Yes Status: Acute Priority: High Code(s): J81.1 - CHRONIC PULMONARY EDEMA SNOMED Code(s): 87582453 (2) Renal failure Narrative/Plan: Patient's renal function is stable at this point in time and there is no further declining renal function or increase in creatinine. We'll continue to monitor for now. Current Visit: Yes Status: Acute Priority: High Code(s): N19 - UNSPECIFIED KIDNEY FAILURE SNOMED Code(s): 24108223 (3) Diabetes mellitus type 2, uncontrolled, with complications Narrative/Plan: Continue current treatment for her diabetes management Current Visit: No Status: Acute Priority: Medium Code(s): E11.8 - TYPE 2 DIABETES MELLITUS WITH UNSPECIFIED COMPLICATIONS; E11.65 - TYPE 2 DIABETES MELLITUS WITH HYPERGLYCEMIA SNOMED Code(s): 818813697 (4) Diabetic ulcer of heel Narrative/Plan: Patient has MRSA present in the diabetic heel ulcer currently she is on antibiotics. Current Visit: Yes Status: Acute Priority: High Code(s): E11.621 - TYPE 2 DIABETES MELLITUS WITH FOOT ULCER; L97.409 - NON-PRS CHRONIC ULCER OF UNSP HEEL AND MIDFOOT W UNSP SEVERT SNOMED Code(s): 65519321 (5) Morbid obesity with BMI of 40.0-44.9, adult Current Visit: No Status: Acute Priority: Low Code(s): E66.01 - MORBID ( SEVERE) OBESITY DUE TO EXCESS CALORIES SNOMED Code(s): 147655066 Plan: Patient overall condition is critical and overall prognosis is poor but she is going to be continued on full ventilator support and management of her acute medical conditions and day line would be to possible send her to care unit/long- term acute care facility with tracheostomy and PEG tube.
[2017-11-02 12:01] LABS: Glucose,Whole Blood 129 mg/dL (75-99)
[2017-11-02] MEDS: INSULIN ASPART 100 UNIT/ML 1 ML 10 ML VIAL SQ SCH ×4 (12:49→23:42)
[2017-11-02] MEDS: ASPIRIN 81 MG PO SCH (17:51)
[2017-11-02 17:58] LABS: Glucose,Whole Blood 136 mg/dL (75-99)
[2017-11-02] MEDS: ATORVASTATIN 10 MG TAB PO SCH (21:37)
[2017-11-02 23:51] LABS: Glucose,Whole Blood 134 mg/dL (75-99)
[2017-11-03] MEDS: IPRATROPIUM-ALBUTEROL 3 ML NEB INHALATION SCH ×5 (02:59→19:48)
[2017-11-03 04:17] LABS: ABG Base Excess 3.7 mmol/L; ABG HCO3 28 mmol/L (21-25); ABG Oxygen Saturation 93.2 % (94-97); ABG PCO2 43 mmHg (35-45); ABG PH 7.42 (7.35-7.45); ABG PO2 63 mmHg (83-108); ABG TCO2 30 mmol/L (19-24)
[2017-11-03 04:44] LABS: Anisocytosis Slight; Basophils % (A) 0 %; Eosinophils # (A) 0.3 k/uL (0-0.7); Eosinophils % (A) 4 %; HCT 21.8 % (34.0-46.0); HGB 7.2 gm/dL (11.4-16.0); Hypochromasia Slight; Lymphocytes # (A) 0.6 k/uL (1.0-4.8); Lymphocytes % (A) 6 %; MCH 27.4 pg (25.0-35.0); MCHC 32.9 g/dL (31.0-37.0); MCV 83.2 fL (80.0-100.0); Mean Platelet Volume 9.9; Monocytes # (A) 0.5 k/uL (0-1.0); Monocytes % (A) 6 %; Neutrophils # (A) 7.1 k/uL (1.3-7.7); Neutrophils % (A) 83 %; RBC 2.62 m/uL (3.80-5.40); RDW 18.3 % (11.5-15.5); WBC 8.5 k/uL (3.8-10.6)
[2017-11-03 04:45] LABS: Platelet Count 80 k/uL (150-450)
[2017-11-03 04:52] LABS: Albumin 2.3 g/dL (3.5-5.0); Magnesium 1.7 mg/dL (1.6-2.3); Phosphorus 5.2 mg/dL (2.5-4.5); Potassium 3.8 mmol/L (3.5-5.1); Total Bilirubin 0.2 mg/dL (0.2-1.3)
[2017-11-03] MEDS: INSULIN ASPART 100 UNIT/ML 1 ML 10 ML VIAL SQ SCH ×3 (06:16→18:32)
[2017-11-03] MEDS: PROPOFOL 1,000 MG in EMPTY BAG 1 BAG IV SCH ×7 (06:17→21:09)
[2017-11-03 06:18] LABS: Glucose,Whole Blood 130 mg/dL (75-99)
--- NOTE | 2017-11-03 07:06 | XR ---
EXAMINATION TYPE: XR chest 1V portable DATE OF EXAM: 11/03/2017 HISTORY: Tube placement. REFERENCE: Previous study dated 11/02/2017. FINDINGS: The patient is ET tube and NG tube as well as right internal jugular sheath remain in place , unchanged in appearance. There is slightly improved aeration of the right lung. There continues be left basilar airspace disea se. I suspect small effusions. Heart size is obscured. IMPRESSION: SLIGHT IMPROVED AERATION OF THE RIGHT LUNG.
--- NOTE | 2017-11-03 09:11 | P.PN ---
Subjective Progress Note Date: 11/03/17 Principal diagnosis: This is a 66-year-old female seen in consultation because of acute kidney injury from cardiorenal syndrome and vancomycin. She was started on dialysis and has had 3 dialysis treatment as of day before yesterday. Yesterday she did not have dialysis He remains intubated on 50% FiO2. She is sedated obtunded. No changes since yesterday. Off of dialysis she has good urine output creatinine stable at 2 mg. Urine output was 2145. She is known with chronic kidney disease stage III likely from diabetic nephropathy, diabetes, obesity, staph epidermidis bacteremia possible contaminant, Patient presented with chest pressure and is being followed by cardiology. Currently she admits to shortness of breath. Her chest x-ray on admission revealed pulmonary edema and a chest ultrasound done yesterday revealed bilateral pleural effusions. Objective - Vital Signs Vital signs: Vital Signs Temp 98.6 F 11/03/17 04:00 Pulse 66 11/03/17 07:44 Resp 24 11/03/17 07:00 BP 127/51 11/03/17 04:30 Pulse Ox 96 11/03/17 07:00 Intake & Output 11/02/17 11/03/17 11/03/17 18:59 06:59 18:59 Intake Total 1194.392 898.682 39 Output Total 710 1435 50 Balance 484.392 -536.318 -11 Weight 169.1 kg Intake: IV 173 153 13 0.9 120 120 10 cefTAZidime 1 gm In 50 Sodium Chloride 0.9% 50 ml @ 100 mls/hr IVPB DAILY [facility] Rx#:[id number] pressure bag 3 33 3 Intake, IV Titration 572.392 295.682 Amount Propofol 1,000 mg In 572.392 295.682 Empty Bag 1 bag @ Titrate IV .Q0M [facility] Rx#: [id number] Tube Feeding 339 390 26 Other 110 60 Output: Urine 710 1435 50 Other: Voiding Method Indwelling Catheter Indwelling Catheter # Bowel Movements 0 ABP, PAP, CO, CI - Last Documented Arterial Blood Pressure 104/80 On examination she is obtunded and sedated on the vent 50% FiO2 unchanged. HEENT exam unable to see any JVD because of the Daniel in the right IJ. Lungs are clear to auscultation fair air entry bilaterally Heart sounds are unremarkable for any murmur rub gallop. Normal sinus rhythm on the monitor Abdomen is obese and nondistended. Extremity exam was 2+ edema. Neurologically obtunded sedated - Labs CBC & Chem 7: 11/03/17 04:30 11/03/17 04:30 Labs: Abnormal Lab Results - Last 24 Hours (Table) 11/02/17 11/02/17 11/02/17 Range/Units 11:04 12:00 17:55 RBC (3.80-5.40) m/uL Hgb (11.4-16.0) gm/dL Hct (34.0-46.0) % RDW (11.5-15.5) % Plt Count (150-450) k/uL Lymphocytes # (1.0-4.8) k/uL ABG pO2 (83-108) mmHg ABG HCO3 (21-25) mmol/L ABG Total CO2 (19-24) mmol/L ABG O2 Saturation (94-97) % BUN (7-17) mg/dL Creatinine (0.52-1.04) mg/dL Glucose (74-99) mg/dL POC Glucose (mg/dL) 126 H 129 H 136 H (75-99) mg/dL Calcium (8.4-10.2) mg/dL Phosphorus (2.5-4.5) mg/dL AST (14-36) U/L Total Protein (6.3-8.2) g/dL Albumin (3.5-5.0) g/dL 11/02/17 11/03/17 11/03/17 Range/Units 23:38 04:16 04:30 RBC 2.62 L (3.80-5.40) m/uL Hgb 7.2 L (11.4-16.0) gm/dL Hct 21.8 L (34.0-46.0) % RDW 18.3 H (11.5-15.5) % Plt Count 80 L (150-450) k/uL Lymphocytes # 0.6 L (1.0-4.8) k/uL ABG pO2 63 L (83-108) mmHg ABG HCO3 28 H (21-25) mmol/L ABG Total CO2 30 H (19-24) mmol/L ABG O2 Saturation 93.2 L (94-97) % BUN (7-17) mg/dL Creatinine (0.52-1.04) mg/dL Glucose (74-99) mg/dL POC Glucose (mg/dL) 134 H (75-99) mg/dL Calcium (8.4-10.2) mg/dL Phosphorus (2.5-4.5) mg/dL AST (14-36) U/L Total Protein (6.3-8.2) g/dL Albumin (3.5-5.0) g/dL 11/03/17 11/03/17 Range/Units 04:30 06:15 RBC (3.80-5.40) m/uL Hgb (11.4-16.0) gm/dL Hct (34.0-46.0) % RDW (11.5-15.5) % Plt Count (150-450) k/uL Lymphocytes # (1.0-4.8) k/uL ABG pO2 (83-108) mmHg ABG HCO3 (21-25) mmol/L ABG Total CO2 (19-24) mmol/L ABG O2 Saturation (94-97) % BUN 46 H (7-17) mg/dL Creatinine 2.05 H (0.52-1.04) mg/dL Glucose 129 H (74-99) mg/dL POC Glucose (mg/dL) 130 H (75-99) mg/dL Calcium 8.0 L (8.4-10.2) mg/dL Phosphorus 5.2 H (2.5-4.5) mg/dL AST 47 H (14-36) U/L Total Protein 5.0 L (6.3-8.2) g/dL Albumin 2.3 L (3.5-5.0) g/dL Microbiology - Last 24 Hours (Table) 10/31/17 21:15 Gram Stain - Preliminary Sputum Sputum Culture - Preliminary Kaley albicans Assessment and Plan Assessment: Impression 1. ATN secondary to cardiorenal syndrome and vancomycin with dialysis dependency last dialysis day before yesterday which was number third dialysis. Today her urine output is 2145 and creatinine stable at 2. No indication for dialysis. 2. Fluid overloaded with edema,on Lasix 80 daily 8 with good urine output 21 45 mL 3 . Chronic kidney disease stage III, etiology is diabetic nephropathy and nephrosclerosis. 4. Ventilator pendent respiratory failure, stable at 50% FiO2 no changes 5. Diabetes and diabetic nephropathy 6. Collapsed right lung, status post bronchoscopy 11/01/2017, chest shows improvement 7. Anemia hemoglobin 7.1 Recommendation. 1. Maintain increase Lasix dose 80 mg every 8 hours . 2. Will hold off hemodialysis today and hopefully no need for any further dialysis, but we will reassess tomorrow 3. Watch bicarbonate as his going up may need to reduce the bicarbonate or discontinue it
--- NOTE | 2017-11-03 09:27 | P.PN ---
Subjective Progress Note Date: 11/03/17 Principal diagnosis: Respiratory failure Progress note dated 10/31/2017 66-year-old morbidly obese female with a history of heart failure. The patient was on the floor yesterday but developed worsening shortness of breath and was transferred over to the ICU. I chose to electively intubate her throughout the night. This happened probably in about 3:00 in the morning. Respiratory status was discussed declining significantly. Despite receiving hemodialysis, her respiratory status declined and we intubated her. This occurred on October 31. Currently she is on the ventilator on the volume assist control mode, her weight is set at 20 tidal volume 400 FiO2 100% and PEEP of 5. Arterial blood gases on those similar settings except for a rate of 16 show a PaO2 of 69. PaCO2 56 and a pH of 7.23. She is currently on a saline IV at 10 mL an hour, propofol at 45 mics per kilogram per minute, heparin via weightbase protocol and norepinephrine 5 mcg/m. She does have an arterial line in place and adequate IV access. Chest x-ray shows a pattern of worsening heart failure and bilateral effusions, right greater than left. In addition to heart failure respiratory failure and obesity, she has a history of stage III chronic kidney disease chronic anemia diabetes chronic lower extremity edema and cellulitis nonhealing foot ulcer and essential hypertension. Also, her lower extremity ulcerations were positive for Pseudomonas and Klebsiella. Her overall prognosis remains extremely poor. We will have to discuss CODE STATUS with the family. Progress note dated 11/01/2017 66-year-old morbidly obese female with a history of heart failure. She developed respiratory failure and required intubation and mechanical ventilation. Her respiratory status has been declining through the night 2 nights ago and we decided to go ahead and electively intubate her. The patient remains on the mechanical ventilator. She is on the volume assist control mode with a rate of 20, tidal volume is 400 FiO2 40% and PEEP of 8. Arterial blood gases show a PaO2 of 65 a PaCO2 41 and a pH of 7.40. She currently is on propofol at 50 mics kilogram per minute heparin has been discontinued a saline IV at 10 mL an hour and tube feeds with Nepro at 26. An arterial line was placed by myself on October 31. Hemodialysis on October 31 and 2 L was removed. Blood cultures were positive for Staphylococcus epidermidis and a ankle culture was positive for Klebsiella and Pseudomonas. Chest x-ray shows complete collapse of the right lung and she will require bronchoscopy today. Lab values include a white count of 6.5 hemoglobin 7 hematocrit 21.8 and a platelet count of 84,000. Sodium potassium chloride CO2 are normal. Anion gap is normal. BUN and creatinine were 58 and 2.90. Progress note dated 11/02/2017 66-year-old morbidly obese female with history of heart failure. She ended up developing respiratory failure and required intubation a few nights ago. The patient remains on the ventilator. I will ask the cardiothoracic surgeons to see her for tracheostomy and PEG tube placement. She is on the volume assist control mode with a rate of 20, tidal volume 400, FiO2 50% and a PEEP of 8 which is going to be increased to a PEEP of 10. The patient's most recent arterial blood gases show a PaO2 of 59, PaCO2 44 and a pH of 7.42. She remains on propofol at 50 mics per kilogram per minute, saline at 10 mL an hour and tube feeds with Nepro at 26 with a goal of 26 mL an hour. She is also getting water flushes. Yesterday, she underwent bronchoscopy in the room for right lung collapse. It's only minimally improved today. She did have Dopplers of the lower extremities. There were negative for DVT. She intermittently stable through the night. Her overall prognosis is poor and I think she'll end up at a long-term [facility] Progress note dated 11/03/2017 66-year-old morbidly obese female with a history of heart failure and respiratory failure. She developed hypoxemic respiratory failure requiring intubation and mechanical ventilation a few nights back. She remains on the ventilator on the assist control mode. Her current rate is 20, tidal volume is 400, FiO2 50% PEEP of 10. Arterial blood gases show a PaO2 of 63, a PaCO2 of 43 and a pH of 7.42. The patient is receiving propofol at 50 mcg/kg/m saline at 10 mL an hour and tube feeds at 26 mL an hour which is goal. She will have a daily eruption of sedation today. Hemodialysis is planned for Saturday. I've also asked the surgeon to see her for tracheostomy and PEG tube. She is really made no progress while here in the ICU. Chest x-ray continues to show improvement in the right lung collapse. We bumped up her PEEP and also did bronchoscopy for that. No new microbiologic studies. White count is 8.5 hemoglobin 7.2 hematocrit 21.8 and platelet count 80,000. Electrolyte profile is normal save for a BUN of 46 and a creatinine of 2.05. Medications are reviewed. Objective - Vital Signs Vital signs: Vital Signs Temp 98.6 F 11/03/17 04:00 Pulse 66 11/03/17 07:44 Resp 24 11/03/17 07:00 BP 127/51 11/03/17 04:30 Pulse Ox 96 11/03/17 07:00 Intake & Output 11/02/17 11/03/17 11/03/17 18:59 06:59 18:59 Intake Total 1194.392 898.682 39 Output Total 710 1435 50 Balance 484.392 -536.318 -11 Weight 169.1 kg Intake: IV 173 153 13 0.9 120 120 10 cefTAZidime 1 gm In 50 Sodium Chloride 0.9% 50 ml @ 100 mls/hr IVPB DAILY [facility] Rx#:[id number] pressure bag 3 33 3 Intake, IV Titration 572.392 295.682 Amount Propofol 1,000 mg In 572.392 295.682 Empty Bag 1 bag @ Titrate IV .Q0M [facility] Rx#: [id number] Tube Feeding 339 390 26 Other 110 60 Output: Urine 710 1435 50 Other: Voiding Method Indwelling Catheter Indwelling Catheter # Bowel Movements 0 ABP, PAP, CO, CI - Last Documented Arterial Blood Pressure 104/80 - Exam No acute distress, sedated, with an orally placed endotracheal tube and NG tube. HEENT examination is grossly unremarkable. Mucous membranes are moist. Neck supple. Full range of motion. No adenopathy thyromegaly or neck vein distention. Cardiovascular examination reveals regular rhythm rate. S1-S2 normal. No S3 or S4. No discernible murmur noted. Heart sounds are very distant. Lungs reveal severely diminished breath sounds bilaterally, right greater than left. There are bilateral coarse rhonchi. Crackles are noted at both bases. No wheezes are appreciated. Very little air entry on the right side noted. Breath sounds are about what they were the day before. There is not been much change. Abdomen soft bowel sounds are heard. No masses or tenderness. Extremities are intact. Chronic lower extremity edema is noted. She also is chronic venous stasis changes with hyperpigmentation. Heels are bandaged. Slightly improved edema of the lower extremities is noted. Skin is without rash or lesion. Neurologic examination could not be assessed as patient is heavily sedated. - Labs CBC & Chem 7: 11/03/17 04:30 11/03/17 04:30 Labs: Abnormal Lab Results - Last 24 Hours (Table) 11/02/17 11/02/17 11/02/17 Range/Units 11:04 12:00 17:55 RBC (3.80-5.40) m/uL Hgb (11.4-16.0) gm/dL Hct (34.0-46.0) % RDW (11.5-15.5) % Plt Count (150-450) k/uL Lymphocytes # (1.0-4.8) k/uL ABG pO2 (83-108) mmHg ABG HCO3 (21-25) mmol/L ABG Total CO2 (19-24) mmol/L ABG O2 Saturation (94-97) % BUN (7-17) mg/dL Creatinine (0.52-1.04) mg/dL Glucose (74-99) mg/dL POC Glucose (mg/dL) 126 H 129 H 136 H (75-99) mg/dL Calcium (8.4-10.2) mg/dL Phosphorus (2.5-4.5) mg/dL AST (14-36) U/L Total Protein (6.3-8.2) g/dL Albumin (3.5-5.0) g/dL 11/02/17 11/03/17 11/03/17 Range/Units 23:38 04:16 04:30 RBC 2.62 L (3.80-5.40) m/uL Hgb 7.2 L (11.4-16.0) gm/dL Hct 21.8 L (34.0-46.0) % RDW 18.3 H (11.5-15.5) % Plt Count 80 L (150-450) k/uL Lymphocytes # 0.6 L (1.0-4.8) k/uL ABG pO2 63 L (83-108) mmHg ABG HCO3 28 H (21-25) mmol/L ABG Total CO2 30 H (19-24) mmol/L ABG O2 Saturation 93.2 L (94-97) % BUN (7-17) mg/dL Creatinine (0.52-1.04) mg/dL Glucose (74-99) mg/dL POC Glucose (mg/dL) 134 H (75-99) mg/dL Calcium (8.4-10.2) mg/dL Phosphorus (2.5-4.5) mg/dL AST (14-36) U/L Total Protein (6.3-8.2) g/dL Albumin (3.5-5.0) g/dL 11/03/17 11/03/17 Range/Units 04:30 06:15 RBC (3.80-5.40) m/uL Hgb (11.4-16.0) gm/dL Hct (34.0-46.0) % RDW (11.5-15.5) % Plt Count (150-450) k/uL Lymphocytes # (1.0-4.8) k/uL ABG pO2 (83-108) mmHg ABG HCO3 (21-25) mmol/L ABG Total CO2 (19-24) mmol/L ABG O2 Saturation (94-97) % BUN 46 H (7-17) mg/dL Creatinine 2.05 H (0.52-1.04) mg/dL Glucose 129 H (74-99) mg/dL POC Glucose (mg/dL) 130 H (75-99) mg/dL Calcium 8.0 L (8.4-10.2) mg/dL Phosphorus 5.2 H (2.5-4.5) mg/dL AST 47 H (14-36) U/L Total Protein 5.0 L (6.3-8.2) g/dL Albumin 2.3 L (3.5-5.0) g/dL Microbiology - Last 24 Hours (Table) 10/31/17 21:15 Gram Stain - Preliminary Sputum Sputum Culture - Preliminary Kaley albicans Assessment and Plan Assessment: Assessment Hypoxemic respiratory failure, likely related to underlying CHF and bilateral pleural effusions, requiring intubation and mechanical ventilation on October 31 Complete collapse of the right lung, which required bronchoscopy, 11/01/2017 Morbid obesity Chronic stage III kidney disease, with recent initiation of hemodialysis Anemia of chronic disease and of chronic renal failure Diabetes mellitus Chronic lower extremity edema Nonhealing ulcers of the lower semis History of hypertension Cellulitis of her extremities secondary to both Pseudomonas and Klebsiella Plan: Plan dated 10/31/2017 The patient's vent settings were adjusted slightly. The rate was increased from 16-20. The patient will have her PEEP increased to see if we can reduce the FiO2. In addition, the patient will have daily chest x-rays and labs. She is on propofol for sedation heparin via weightbase protocol and norepinephrine for blood pressure support. She remains on updrafts every 4 and antibiotics. White count is 8.3 hemoglobin 7.6 hematocrit 25.5 and platelet count 116,000. Sodium and potassium are normal. Chloride 109, CO2 24, anion gap normal and BUN and creatinine were 70 and 3.60. Urinalysis is likely consistent with a urinary tract infection. The patient remains on vancomycin and Fortaz. Critical care time 34 minutes Plan dated 11/01/2017 The patient will require bronchoscopy today to open up that right lung. Labs x- rays a medications are reviewed. She remains on propofol at 50 mics per kilogram per minute and heparin has been discontinued. She is being nourished. Vent settings are appropriate. Arterial blood gases are reasonable. Arterial line was placed on October 31. She received hemodialysis on October 31 and 2 L was removed. Overall prognosis remains very poor. She remains on antibiotics. She may end up requiring a tracheostomy and PEG tube. Additional recommendations and suggestions are forthcoming. Critical care time 33 minutes Plan dated 11/02/2017 The patient underwent bronchoscopy yesterday for right lung collapse. The right lung is somewhat improved today. We will increase the PEEP from 8-10 to improve oxygenation and see if we can't pop open that right lung a bit more. Her vent settings are otherwise appropriate. She remains on sedation with propofol. She is being nurse. Dopplers of lower extremities were negative for DVT. White count is 6.3 hemoglobin 7.1 hematocrit 21.4 and platelet count is 67 ,000. Sodium potassium chloride CO2 normal. Anion gap is normal. BUN and creatinine were 46 and 2.0. There are no new microbiologic data. We will ask cardiothoracic to see the patient for tracheostomy and PEG tube placement sometime next week. We'll continue to monitor closely. Prognosis is very guarded. She may end up at a long-term acute care facility status post tracheostomy and PEG tube placement. Critical care time 34 minutes Plan dated 11/03/2017 Aeration of the right lung has improved. The patient continues on the volume assist control mode. We will have thoracic surgery see her for possible tracheostomy and PEG tube placed this week. She may again get hemodialysis tomorrow. She remains on propofol at 50 mics per kilogram per minute. She is being nurse. She will have the daily interuption of sedation today. Labs x- rays a medications are all reviewed. There has been slight improvement in the aeration of the right lung. Critical care time 32 minutes Time with Patient: Greater than 30
[2017-11-03] MEDS: MAGNESIUM SULFATE-D5W PMX 1 GM in DEXTROSE/WATER 1 100ML.BAG IVPB SCH ×2 (09:50→12:42)
[2017-11-03] MEDS: FUROSEMIDE 10 MG/ML 10 ML VIAL IV SCH ×2 (09:51→15:09)
[2017-11-03] MEDS: CHLORHEXIDINE GLUCONATE 15 ML CUP MUCOUS MEM SCH ×2 (09:53→21:04)
[2017-11-03] MEDS: NYSTATIN 100,000 UNIT/GM POWD 15 GM TOPICAL SCH ×2 (09:53→21:04)
[2017-11-03] MEDS: SODIUM BICARBONATE TAB 650 MG TAB PO SCH ×2 (09:54→21:04)
[2017-11-03] MEDS: PANTOPRAZOLE 40 MG/10 ML VIAL IVP SCH (09:54)
[2017-11-03 11:51] LABS: Glucose,Whole Blood 153 mg/dL (75-99)
[2017-11-03] MEDS: DARBEPOETIN ALFA 40 MCG/0.4 ML SYRINGE SQ SCH (13:17)
--- NOTE | 2017-11-03 14:09 | P.GSCN ---
History of Present Illness Consult date: 11/03/17 Reason for Consult: Evaluation for tracheostomy and percutaneous endoscopy gastrostomy tube placement. Requesting physician: Antelmo Bey History of present illness: This is a 66-year-old female patient with a medical history significant for congestive heart failure with diastolic dysfunction, chronic renal failure stage III, diabetes mellitus type 2, morbid obesity with a BMI of 53.5, chronic lower extremity wounds, hyperlipidemia, and hypertension. The patient has had a recent hospitalization and has been receiving care at [facility] subacute rehab. During her stay at [facility] she has been complaining of progressive shortness of breath with some complaints of chest pain. Subsequently on 10/25/2017 she presented to the emergency department here at [facility] with complaints of progressive shortness of breath and chest pain. She denied any complaints of nausea or diaphoresis on presentation. She was admitted to the hospital for further evaluation and treatment. On 10/30/2017 the patient developed worsening shortness of breath and was subsequently transferred to the intensive care unit where she was intubated and placed on mechanical ventilator support. The patient has had daily sedation holidays and her weaning attempts from her mechanical ventilation had been nonsuccessful. Due to her failed weaning attempts a consult was placed to Dr. Mccarty for evaluation for placement of a tracheostomy and percutaneous endoscopy gastrostomy tube. Review of Systems 14 point review systems was completed and was negative except as mentioned in HPI. Past Medical History Past Medical History: Heart Failure, Diabetes Mellitus, Hyperlipidemia, Hypertension, Osteoarthritis (OA), Renal Disease, Skin Disorder Additional Past Medical History / Comment(s): Cellutitus right leg, ringing in bilateral ears. 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 As noted was a smoker in the past. She doesn't have a history of stiff and alcohol use. 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 No international travel. no experience. Has her pet cat, Guille Smoking Status: Former smoker - Past Family History Father Additional Family Medical History / Comment(s): ALCOHOLIC Mother Family Medical History: Cancer, CVA/TIA, Diabetes Mellitus, Myocardial Infarction ([place]) Additional Family Medical History / Comment(s): COLON Brother(s) Additional Family Medical History / Comment(s): DRUG DEPENDENCY Medications and Allergies Home Medications Medication Instructions Recorded Confirmed Type Acetaminophen [Tylenol] 325 mg PO Q6HR PRN 09/23/17 10/25/17 History Aspirin EC [Ecotrin Low Dose] 81 mg PO DAILY@1700 09/23/17 10/25/17 History Bisacodyl [Dulcolax] 10 mg RECTAL DAILY PRN 09/23/17 10/25/17 History Ergocalciferol [Vitamin D2] 50,000 unit PO TH 09/23/17 10/25/17 History Insulin Aspart [NovoLOG] See Protocol SQ AC-TID@07,11,1730 09/23/17 10/25/17 History Insulin Glargine,Hum.rec.anlog 44 unit SQ DAILY@0700 09/23/17 10/25/17 History [Basaglar Kwikpen U-100] Lovastatin [Mevacor] 40 mg PO HS 09/23/17 10/25/17 History Magnesium Hydroxide [Milk of 30 ml PO DIRECTED PRN 09/23/17 10/25/17 History Magnesia Concentrate] Mineral Oil [Fleet Mineral Oil] 133 ml RECTAL ONCE PRN 09/23/17 10/25/17 History Omeprazole [PriLOSEC] 20 mg PO DAILY 09/23/17 10/25/17 History amLODIPine [Norvasc] 10 mg PO DAILY 09/23/17 10/25/17 History traMADol HCl [Ultram] 50 mg PO Q6HR PRN 09/23/17 10/25/17 History Furosemide [Lasix] 40 mg PO BID@06,14 10/15/17 10/25/17 History Amino Acids/Protein Hydrolys 30 ml PO DAILY@1100 10/25/17 10/25/17 History [Pro-Stat Supplement] Losartan [Cozaar] 25 mg PO DAILY 10/25/17 10/25/17 History Metoprolol Tartrate [Lopressor] 50 mg PO BID 10/25/17 10/25/17 History Nystatin 100,000 Unit/gm Powd 1 applic TOPICAL BID 10/25/17 10/25/17 History [Mycostatin Powder] Spironolactone [Aldactone] 25 mg PO DAILY 10/25/17 10/25/17 History hydrALAZINE HCL [Apresoline] 25 mg PO BID@14,21 10/25/17 10/25/17 History hydrALAZINE HCL [Apresoline] 75 mg PO DAILY@0800 10/25/17 10/25/17 History Allergies Allergy/AdvReac Type Severity Reaction Status Date / Time Penicillins Allergy Severe Rash/Hives Verified 10/25/17 14:32 simvastatin [From Zocor] AdvReac Severe Unknown Verified 10/25/17 14:32 pregabalin [From Lyrica] AdvReac Unknown Verified 10/25/17 14:32 tide laundry detergent Allergy Itching Uncoded 10/21/17 10:03 Surgical - Exam Vital Signs Temp Pulse Resp BP Pulse Ox 97.0 F L 61 18 146/68 92 L 10/25/17 13:08 10/25/17 13:08 10/25/17 13:08 10/25/17 13:08 10/25/17 13:08 - General Morbidly obese. Patient is currently intubated on mechanical ventilator support and is sedated on Diprivan@50 mcg/kg/m. well developed, well nourished, no distress, no pain - Eyes Sclerae are anicteric PERRL, normal ocular movement - ENT #[address] and secured 23 cm the left. OG tube in place and secured. normal pinna, normal nares, normal mucosa, no congestion - Neck No lymphadenopathy and neck is supple. no masses, no bruits, trachea midline, no venous distension - Respiratory Lung sounds are essentially clear throughout, diminished bilateral bases. Respirations are symmetrical and unlabored with mechanical ventilator support. Current ventilator settings are as follows: Kael control 20, tidal volume 400, FiO2 50%, PEEP of 10. Current oxygen saturations are 96% on these settings. # 8 ET tube secured at 23 cm the left. - Cardiovascular Regular rhythm and rate. S1 and S2 present, negative for S3, gallop or murmur. Bedside telemetry showing normal sinus rhythm heart rate 62. - Abdomen Abdomen is soft, nontender nondistended. Active bowel sounds all 4 abdominal quadrants. No organomegaly. OG tube in place with tube feedings infusing. - Genitourinary Deferred - Rectum Deferred - Integumentary no rash - Neurologic Currently sedated on propofol at 50 mcg/kg/m. Results - Labs 11/03/17 04:30 11/03/17 04:30 Abnormal Lab Results - Last 24 Hours (Table) 11/02/17 11/02/17 11/03/17 Range/Units 17:55 23:38 04:16 RBC (3.80-5.40) m/uL Hgb (11.4-16.0) gm/dL Hct (34.0-46.0) % RDW (11.5-15.5) % Plt Count (150-450) k/uL Lymphocytes # (1.0-4.8) k/uL ABG pO2 63 L (83-108) mmHg ABG HCO3 28 H (21-25) mmol/L ABG Total CO2 30 H (19-24) mmol/L ABG O2 Saturation 93.2 L (94-97) % BUN (7-17) mg/dL Creatinine (0.52-1.04) mg/dL Glucose (74-99) mg/dL POC Glucose (mg/dL) 136 H 134 H (75-99) mg/dL Calcium (8.4-10.2) mg/dL Phosphorus (2.5-4.5) mg/dL AST (14-36) U/L Total Protein (6.3-8.2) g/dL Albumin (3.5-5.0) g/dL 11/03/17 11/03/17 11/03/17 Range/Units 04:30 04:30 06:15 RBC 2.62 L (3.80-5.40) m/uL Hgb 7.2 L (11.4-16.0) gm/dL Hct 21.8 L (34.0-46.0) % RDW 18.3 H (11.5-15.5) % Plt Count 80 L (150-450) k/uL Lymphocytes # 0.6 L (1.0-4.8) k/uL ABG pO2 (83-108) mmHg ABG HCO3 (21-25) mmol/L ABG Total CO2 (19-24) mmol/L ABG O2 Saturation (94-97) % BUN 46 H (7-17) mg/dL Creatinine 2.05 H (0.52-1.04) mg/dL Glucose 129 H (74-99) mg/dL POC Glucose (mg/dL) 130 H (75-99) mg/dL Calcium 8.0 L (8.4-10.2) mg/dL Phosphorus 5.2 H (2.5-4.5) mg/dL AST 47 H (14-36) U/L Total Protein 5.0 L (6.3-8.2) g/dL Albumin 2.3 L (3.5-5.0) g/dL 11/03/17 Range/Units 11:50 RBC (3.80-5.40) m/uL Hgb (11.4-16.0) gm/dL Hct (34.0-46.0) % RDW (11.5-15.5) % Plt Count (150-450) k/uL Lymphocytes # (1.0-4.8) k/uL ABG pO2 (83-108) mmHg ABG HCO3 (21-25) mmol/L ABG Total CO2 (19-24) mmol/L ABG O2 Saturation (94-97) % BUN (7-17) mg/dL Creatinine (0.52-1.04) mg/dL Glucose (74-99) mg/dL POC Glucose (mg/dL) 153 H (75-99) mg/dL Calcium (8.4-10.2) mg/dL Phosphorus (2.5-4.5) mg/dL AST (14-36) U/L Total Protein (6.3-8.2) g/dL Albumin (3.5-5.0) g/dL Microbiology - Last 24 Hours (Table) 11/01/17 11:01 Gram Stain - Final Bronchial Washings - Right Bronchial Washings Culture - Final Kaley albicans 10/31/17 21:15 Gram Stain - Final Sputum Sputum Culture - Final Kaley albicans Diabetes panel 11/03/17 Range/Units 04:30 Sodium 137 (137-145) mmol/L Potassium 3.8 (3.5-5.1) mmol/L Chloride 102 (98-107) mmol/L Carbon Dioxide 27 (22-30) mmol/L BUN 46 H (7-17) mg/dL Creatinine 2.05 H (0.52-1.04) mg/dL Glucose 129 H (74-99) mg/dL Calcium 8.0 L (8.4-10.2) mg/dL AST 47 H (14-36) U/L ALT 51 (9-52) U/L Alkaline Phosphatase 58 (38-126) U/L Total Protein 5.0 L (6.3-8.2) g/dL Albumin 2.3 L (3.5-5.0) g/dL Calcium panel 11/03/17 Range/Units 04:30 Calcium 8.0 L (8.4-10.2) mg/dL Phosphorus 5.2 H (2.5-4.5) mg/dL Albumin 2.3 L (3.5-5.0) g/dL Pituitary panel 11/03/17 Range/Units 04:30 Sodium 137 (137-145) mmol/L Potassium 3.8 (3.5-5.1) mmol/L Chloride 102 (98-107) mmol/L Carbon Dioxide 27 (22-30) mmol/L BUN 46 H (7-17) mg/dL Creatinine 2.05 H (0.52-1.04) mg/dL Glucose 129 H (74-99) mg/dL Calcium 8.0 L (8.4-10.2) mg/dL Adrenal panel 11/03/17 Range/Units 04:30 Sodium 137 (137-145) mmol/L Potassium 3.8 (3.5-5.1) mmol/L Chloride 102 (98-107) mmol/L Carbon Dioxide 27 (22-30) mmol/L BUN 46 H (7-17) mg/dL Creatinine 2.05 H (0.52-1.04) mg/dL Glucose 129 H (74-99) mg/dL Calcium 8.0 L (8.4-10.2) mg/dL Total Bilirubin 0.2 (0.2-1.3) mg/dL AST 47 H (14-36) U/L ALT 51 (9-52) U/L Alkaline Phosphatase 58 (38-126) U/L Total Protein 5.0 L (6.3-8.2) g/dL Albumin 2.3 L (3.5-5.0) g/dL - Imaging Chest x-ray: report reviewed, image reviewed Assessment and Plan (1) Acute hypoxemic respiratory failure Current Visit: Yes Status: Acute Code(s): J96.01 - ACUTE RESPIRATORY FAILURE WITH HYPOXIA SNOMED Code(s): 289022227 (2) Anemia Current Visit: Yes Status: Acute Code(s): D64.9 - ANEMIA, UNSPECIFIED SNOMED Code(s): 159176734 (3) Diabetic ulcer of heel Current Visit: Yes Status: Acute Priority: High Code(s): E11.621 - TYPE 2 DIABETES MELLITUS WITH FOOT ULCER; L97.409 - NON-PRS CHRONIC ULCER OF UNSP HEEL AND MIDFOOT W UNSP SEVERT SNOMED Code(s): 37051439 (4) Renal failure Current Visit: Yes Status: Acute Priority: High Code(s): N19 - UNSPECIFIED KIDNEY FAILURE SNOMED Code(s): 37773221 (5) 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 Chart and diagnostics were reviewed. She was seen and evaluated by Dr. Mccarty from cardiothoracic surgery. She will l be scheduled tentatively for a tracheostomy and percutaneous endoscopy gastrostomy tube placement tomorrow. Pending guardianship. She'll be made nothing by mouth after midnight. We will obtain consent. Continue GI and DVT prophylaxis. Thank you Dr. Bey for this consult and we look for to working with you in the care of your patient. Time with Patient: Greater than 30
--- NOTE | 2017-11-03 15:21 | P.PN ---
Subjective Progress Note Date: 11/03/17 Patient is fully sedated on full vent support, she had good urine output, her chest x-ray reported as improved aireation right lung and noted that patient's hemoglobin is stable at 7.2 g/dL along with a stable renal function. Patient is on Fortaz IV for Klebsiella growth in her bronchial washing. Nurses reported no acute issues with the patient. Objective - Vital Signs Vital signs: Vital Signs Temp 97.9 F 11/03/17 13:00 Pulse 60 11/03/17 14:00 Resp 22 11/03/17 14:00 BP 119/52 11/03/17 12:30 Pulse Ox 96 11/03/17 14:00 Intake & Output 11/02/17 11/03/17 11/03/17 18:59 06:59 18:59 Intake Total 1194.392 898.682 847 Output Total 710 1435 530 Balance 484.392 -536.318 317 Weight 169.1 kg Intake: IV 173 153 143 0.9 120 120 90 cefTAZidime 1 gm In 50 50 Sodium Chloride 0.9% 50 ml @ 100 mls/hr IVPB DAILY [facility] Rx#:[id number] pressure bag 3 33 3 Intake, IV Titration 572.392 295.682 300 Amount Propofol 1,000 mg In 572.392 295.682 300 Empty Bag 1 bag @ Titrate IV .Q0M [facility] Rx#: [id number] Tube Feeding 339 390 234 Other 110 60 170 Output: Urine 710 1435 530 Other: Voiding Method Indwelling Catheter Indwelling Catheter Indwelling Catheter # Bowel Movements 0 ABP, PAP, CO, CI - Last Documented Arterial Blood Pressure 141/46 - Constitutional Constitutional Comment(s): Patient is sedated on full vent support and is hard to arouse. - EENT EENT Comment(s): Orotracheal and oropharyngeal tube in place. - Neck Details: Intrajugular central line placed in the right side of the neck. - Respiratory Respiratory: bilateral: CTA (Over the central and upper lung valdes bilaterally) , diminished (Lower one third diminished breath sounds.), negative: rhonchi, wheezing - Cardiovascular Rhythm: irregularly irregular Heart sounds: normal: S1, S2 - Gastrointestinal General gastrointestinal: Present: normal bowel sounds, soft - Musculoskeletal Musculoskeletal Comment(s): Third spacing with bilateral upper and lower extremity swelling, poor bilateral feet hygiene and bilateral heel ulcers with draining ulcer right heel. - Psychiatric Psychiatric Comment(s): Sedated on full vent support. - Labs CBC & Chem 7: 11/03/17 04:30 11/03/17 04:30 Labs: Abnormal Lab Results - Last 24 Hours (Table) 11/02/17 11/02/17 11/03/17 Range/Units 17:55 23:38 04:16 RBC (3.80-5.40) m/uL Hgb (11.4-16.0) gm/dL Hct (34.0-46.0) % RDW (11.5-15.5) % Plt Count (150-450) k/uL Lymphocytes # (1.0-4.8) k/uL ABG pO2 63 L (83-108) mmHg ABG HCO3 28 H (21-25) mmol/L ABG Total CO2 30 H (19-24) mmol/L ABG O2 Saturation 93.2 L (94-97) % BUN (7-17) mg/dL Creatinine (0.52-1.04) mg/dL Glucose (74-99) mg/dL POC Glucose (mg/dL) 136 H 134 H (75-99) mg/dL Calcium (8.4-10.2) mg/dL Phosphorus (2.5-4.5) mg/dL AST (14-36) U/L Total Protein (6.3-8.2) g/dL Albumin (3.5-5.0) g/dL 11/03/17 11/03/17 11/03/17 Range/Units 04:30 04:30 06:15 RBC 2.62 L (3.80-5.40) m/uL Hgb 7.2 L (11.4-16.0) gm/dL Hct 21.8 L (34.0-46.0) % RDW 18.3 H (11.5-15.5) % Plt Count 80 L (150-450) k/uL Lymphocytes # 0.6 L (1.0-4.8) k/uL ABG pO2 (83-108) mmHg ABG HCO3 (21-25) mmol/L ABG Total CO2 (19-24) mmol/L ABG O2 Saturation (94-97) % BUN 46 H (7-17) mg/dL Creatinine 2.05 H (0.52-1.04) mg/dL Glucose 129 H (74-99) mg/dL POC Glucose (mg/dL) 130 H (75-99) mg/dL Calcium 8.0 L (8.4-10.2) mg/dL Phosphorus 5.2 H (2.5-4.5) mg/dL AST 47 H (14-36) U/L Total Protein 5.0 L (6.3-8.2) g/dL Albumin 2.3 L (3.5-5.0) g/dL 11/03/17 Range/Units 11:50 RBC (3.80-5.40) m/uL Hgb (11.4-16.0) gm/dL Hct (34.0-46.0) % RDW (11.5-15.5) % Plt Count (150-450) k/uL Lymphocytes # (1.0-4.8) k/uL ABG pO2 (83-108) mmHg ABG HCO3 (21-25) mmol/L ABG Total CO2 (19-24) mmol/L ABG O2 Saturation (94-97) % BUN (7-17) mg/dL Creatinine (0.52-1.04) mg/dL Glucose (74-99) mg/dL POC Glucose (mg/dL) 153 H (75-99) mg/dL Calcium (8.4-10.2) mg/dL Phosphorus (2.5-4.5) mg/dL AST (14-36) U/L Total Protein (6.3-8.2) g/dL Albumin (3.5-5.0) g/dL Microbiology - Last 24 Hours (Table) 11/01/17 11:01 Gram Stain - Final Bronchial Washings - Right Bronchial Washings Culture - Final Kaley albicans 10/31/17 21:15 Gram Stain - Final Sputum Sputum Culture - Final Kaely albicans - Imaging and Cardiology Chest x-ray: report reviewed Assessment and Plan (1) Pulmonary edema Current Visit: Yes Status: Acute Priority: High Code(s): J81.1 - CHRONIC PULMONARY EDEMA SNOMED Code(s): 51512044 (2) Renal failure Current Visit: Yes Status: Acute Priority: High Code(s): N19 - UNSPECIFIED KIDNEY FAILURE SNOMED Code(s): 04375588 (3) Diabetes mellitus type 2, uncontrolled, with complications Current Visit: No Status: Acute Priority: Medium Code(s): E11.8 - TYPE 2 DIABETES MELLITUS WITH UNSPECIFIED COMPLICATIONS; E11.65 - TYPE 2 DIABETES MELLITUS WITH HYPERGLYCEMIA SNOMED Code(s): 626403745 (4) Diabetic ulcer of heel Current Visit: Yes Status: Acute Priority: High Code(s): E11.621 - TYPE 2 DIABETES MELLITUS WITH FOOT ULCER; L97.409 - NON-PRS CHRONIC ULCER OF UNSP HEEL AND MIDFOOT W UNSP SEVERT SNOMED Code(s): 82277840 (5) Morbid obesity with BMI of 40.0-44.9, adult Current Visit: No Status: Acute Priority: Low Code(s): E66.01 - MORBID ( SEVERE) OBESITY DUE TO EXCESS CALORIES SNOMED Code(s): 064989165 Plan: Patient will be continued on full ventilator support, IV antibiotics and tube feeding. Patient was referred to surgery for possibility of tracheostomy tube placement and PEG tube placement and was seen by surgical team and tentatively scheduled for these procedures tomorrow morning. Was patient has tracheostomy and PEG tube placement then patient will be referred for long-term acute care facility where she can be further stabilized and extubated if possible. Until then patient will be continued on full medical management and ventilator support for respiratory failure. Overall patient's condition is guarded and prognosis poor. Time with Patient: Less than 30
[2017-11-03] MEDS: ASPIRIN 81 MG PO SCH (16:28)
[2017-11-03 18:29] LABS: Glucose,Whole Blood 135 mg/dL (75-99)
[2017-11-03] MEDS: ATORVASTATIN 10 MG TAB PO SCH (21:04)
[2017-11-04] MEDS: IPRATROPIUM-ALBUTEROL 3 ML NEB INHALATION SCH ×7 (00:02→23:52)
[2017-11-04 00:33] LABS: Glucose,Whole Blood 136 mg/dL (75-99)
[2017-11-04] MEDS: FUROSEMIDE 10 MG/ML 10 ML VIAL IV SCH ×4 (00:33→23:59)
[2017-11-04] MEDS: INSULIN ASPART 100 UNIT/ML 1 ML 10 ML VIAL SQ SCH ×5 (00:43→23:59)
[2017-11-04] MEDS: PROPOFOL 1,000 MG in EMPTY BAG 1 BAG IV SCH ×3 (02:00→05:00)
[2017-11-04 04:32] LABS: Anisocytosis Slight; Basophils % (A) 0 %; Eosinophils # (A) 0.5 k/uL (0-0.7); Eosinophils % (A) 6 %; HCT 22.9 % (34.0-46.0); HGB 7.1 gm/dL (11.4-16.0); Hypochromasia Slight; Lymphocytes # (A) 0.5 k/uL (1.0-4.8); Lymphocytes % (A) 6 %; MCH 25.8 pg (25.0-35.0); MCHC 30.8 g/dL (31.0-37.0); MCV 83.9 fL (80.0-100.0); Mean Platelet Volume 10.7; Monocytes # (A) 0.5 k/uL (0-1.0); Monocytes % (A) 5 %; Neutrophils # (A) 7.1 k/uL (1.3-7.7); Neutrophils % (A) 82 %; RBC 2.73 m/uL (3.80-5.40); RDW 18.7 % (11.5-15.5); WBC 8.6 k/uL (3.8-10.6)
[2017-11-04 04:33] LABS: Platelet Count 81 k/uL (150-450)
[2017-11-04 04:57] LABS: Albumin 2.3 g/dL (3.5-5.0); Magnesium 2.1 mg/dL (1.6-2.3); Total Bilirubin 0.2 mg/dL (0.2-1.3); Total Protein 4.9 g/dL (6.3-8.2)
[2017-11-04 05:19] LABS: ABG Base Excess 2.8 mmol/L; ABG HCO3 28 mmol/L (21-25); ABG Oxygen Saturation 94.9 % (94-97); ABG PCO2 46 mmHg (35-45); ABG PH 7.39 (7.35-7.45); ABG PO2 70 mmHg (83-108); ABG TCO2 29 mmol/L (19-24)
[2017-11-04 06:28] LABS: Glucose,Whole Blood 128 mg/dL (75-99)
--- NOTE | 2017-11-04 09:05 | XR ---
EXAMINATION TYPE: XR chest 1V portable DATE OF EXAM: 11/04/2017 COMPARISON: 11/03/2017 INDICATION: Tube placement, previous abnormal chest TECHNIQUE: Single frontal view of the chest is obtained. FINDINGS: The heart size is normal. The pulmonary vasculature is normal. Moderate right pleural effusion is present. Double-lumen catheter is present on the right with tip in superior vena cava region. Nasogastric tube transverses the thorax. Endotracheal tube tip is above the billy. Small left lower lobe infiltrate may be present. Findings are stable. IMPRESSION: 1. Moderate right pleural effusion. 2. Multiple lines and catheters, stable in position
[2017-11-04] MEDS: NYSTATIN 100,000 UNIT/GM POWD 15 GM TOPICAL SCH ×2 (09:36→20:20)
[2017-11-04] MEDS: CHLORHEXIDINE GLUCONATE 15 ML CUP MUCOUS MEM SCH ×2 (09:36→20:18)
[2017-11-04] MEDS: PANTOPRAZOLE 40 MG/10 ML VIAL IVP SCH (09:36)
--- NOTE | 2017-11-04 09:51 | P.PN ---
Subjective patient is seen in follow-up for acute kidney injury on chronic kidney disease. Patient has chronic kidney disease stage III with baseline creatinine in the range of 1.8-2.3 secondary to diabetic kidney disease. Creatinine was 3.5 on October 30. She was oliguric and volume overloaded. Patient was started on hemodialysis on October 30 and has undergone 3 treatments of hemodialysis so far with total 6 L ultrafiltration. She is maintained on Lasix 80 mg IV three times daily - urine output has improved to 60-80 mL per hour. Vancomycin level is high at 35.1 10/29; 25.1 as of 11/02. Currently intubated. Not on pressors. Vital signs are stable. General: The patient appeared well nourished and normally developed. HEENT: Head exam is unremarkable. Neck is without jugular venous distension. Intubated. LUNGS: Breath sounds decreased. HEART: Rate and Rhythm are regular. First and second heart sounds normal. No murmurs, rubs or gallops. ABDOMEN: Abdominal exam reveals normal bowel sounds. Non-tender and non- distended. No evidence of peritonitis. EXTREMITITES: 1+ edema. Objective - Vital Signs Vital signs: Vital Signs Temp 96.4 F L 11/04/17 06:30 Pulse 65 11/04/17 08:44 Resp 21 11/04/17 07:00 BP 134/55 11/04/17 04:30 Pulse Ox 95 11/04/17 07:00 Intake & Output 11/03/17 11/04/17 11/04/17 18:59 06:59 18:59 Intake Total 8572.230 3852 39 Output Total 638 1285 75 Balance 501.322 -252 -36 Weight 170.4 kg Intake: IV 173 153 13 0.9 120 120 10 cefTAZidime 1 gm In 50 Sodium Chloride 0.9% 50 ml @ 100 mls/hr IVPB DAILY [facility] Rx#:[id number] pressure bag 3 33 3 Intake, IV Titration 480.322 400 Amount Propofol 1,000 mg In 480.322 400 Empty Bag 1 bag @ Titrate IV .Q0M [facility] Rx#: [id number] Tube Feeding 286 390 26 Other 200 90 Output: Urine 638 1285 75 Other: Voiding Method Indwelling Catheter Indwelling Catheter Indwelling Catheter # Bowel Movements 1 1 ABP, PAP, CO, CI - Last Documented Arterial Blood Pressure 163/54 - Labs CBC & Chem 7: 11/04/17 04:28 11/04/17 04:28 Labs: Abnormal Lab Results - Last 24 Hours (Table) 11/03/17 11/03/17 11/04/17 Range/Units 11:50 18:26 00:32 RBC (3.80-5.40) m/uL Hgb (11.4-16.0) gm/dL Hct (34.0-46.0) % MCHC (31.0-37.0) g/dL RDW (11.5-15.5) % Plt Count (150-450) k/uL Lymphocytes # (1.0-4.8) k/uL ABG pCO2 (35-45) mmHg ABG pO2 (83-108) mmHg ABG HCO3 (21-25) mmol/L ABG Total CO2 (19-24) mmol/L BUN (7-17) mg/dL Creatinine (0.52-1.04) mg/dL Glucose (74-99) mg/dL POC Glucose (mg/dL) 153 H 135 H 136 H (75-99) mg/dL Calcium (8.4-10.2) mg/dL AST (14-36) U/L ALT (9-52) U/L Total Protein (6.3-8.2) g/dL Albumin (3.5-5.0) g/dL 11/04/17 11/04/17 11/04/17 Range/Units 04:28 04:28 05:17 RBC 2.73 L (3.80-5.40) m/uL Hgb 7.1 L (11.4-16.0) gm/dL Hct 22.9 L (34.0-46.0) % MCHC 30.8 L (31.0-37.0) g/dL RDW 18.7 H (11.5-15.5) % Plt Count 81 L (150-450) k/uL Lymphocytes # 0.5 L (1.0-4.8) k/uL ABG pCO2 46 H (35-45) mmHg ABG pO2 70 L (83-108) mmHg ABG HCO3 28 H (21-25) mmol/L ABG Total CO2 29 H (19-24) mmol/L BUN 49 H (7-17) mg/dL Creatinine 1.97 H (0.52-1.04) mg/dL Glucose 131 H (74-99) mg/dL POC Glucose (mg/dL) (75-99) mg/dL Calcium 8.0 L (8.4-10.2) mg/dL AST 43 H (14-36) U/L ALT 58 H (9-52) U/L Total Protein 4.9 L (6.3-8.2) g/dL Albumin 2.3 L (3.5-5.0) g/dL 11/04/17 Range/Units 06:26 RBC (3.80-5.40) m/uL Hgb (11.4-16.0) gm/dL Hct (34.0-46.0) % MCHC (31.0-37.0) g/dL RDW (11.5-15.5) % Plt Count (150-450) k/uL Lymphocytes # (1.0-4.8) k/uL ABG pCO2 (35-45) mmHg ABG pO2 (83-108) mmHg ABG HCO3 (21-25) mmol/L ABG Total CO2 (19-24) mmol/L BUN (7-17) mg/dL Creatinine (0.52-1.04) mg/dL Glucose (74-99) mg/dL POC Glucose (mg/dL) 128 H (75-99) mg/dL Calcium (8.4-10.2) mg/dL AST (14-36) U/L ALT (9-52) U/L Total Protein (6.3-8.2) g/dL Albumin (3.5-5.0) g/dL Microbiology - Last 24 Hours (Table) 11/01/17 11:01 Gram Stain - Final Bronchial Washings - Right Bronchial Washings Culture - Final Kaley albicans 10/31/17 21:15 Gram Stain - Final Sputum Sputum Culture - Final Kaley albicans Assessment and Plan Plan: Assessment: 1. Acute kidney injury secondary to ATN secondary to cardiorenal syndrome and vancomycin toxicity. Creatinine up to 3.85 on October 30 - started on hemodialysis due to oliguria and hyperkalemia. Ultrasound from April 2017 was benign. Vancomycin discontinued. Cr 1.97 and non-oliguric now. 2. Volume overload. Improving. 3. Diastolic CHF with mild pulmonary hypertension. 4. Anemia. iron replete. Component of chronic kidney disease. Maintained on Aranesp. 5. Insulin-dependent diabetes mellitus. 6. Staph epidermidis bacteremia. Possible contamination. 7. Metabolic acidosis secondary to acute kidney injury. Improved. 8. Obesity. 9. Hypertension with chronic kidney disease. Controlled. 10. Chronic kidney disease stage III with baseline creatinine in the range of 1.8-2.3. Etiology is diabetic kidney disease and cardiorenal syndrome. 11. Proteinuria. Likely due to diabetic kidney disease. Brogden light chain elevated. 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 12. Hyperkalemia secondary to acute kidney injury, metabolic acidosis and use of Aldactone. Aldactone discontinued on October 29. Improved. 13. Hyperphosphatemia secondary to acute kidney injury. Improving. Plan: Will hold off on hemodialysis today. Continue Lasix 80 mg IV 3 times daily. Avoid nephrotoxic agents. Continue to monitor renal function and urine output closely. Consider oncology evaluation regarding elevated kappa chains.
--- NOTE | 2017-11-04 10:11 | P.PN ---
Subjective Progress Note Date: 11/04/17 Principal diagnosis: chest pain Patient is a 66-year-old female with a history of diabetes mellitus type 2, chronic lower extremity wounds, congestive heart failure, and hypertension who presented to the emergency department with chest pain. In the emergency department she underwent an extensive evaluation. She was noted to have an elevated BUN to creatinine ratio, chest x-ray notable for volume overload, an elevated d-dimer. They were unable to assess for pulmonary embolism with her elevated creatinine and therefore she was started on a heparin drip. She was initially admitted for acute kidney injury and evaluation of chest pain. She subsequently developed worsening acute kidney injury and has been started on dialysis. She also developed right lung white out necessitating a bronchoscopy on 11/01. She also has since been intubated. Currently possible need for trach/PEG tube. Current issues are relating to decision-making. Daughter has not wanted to involve in her mother's decision making, we have been unable to get a hold of the patient's brother. Social work is currently working on getting a court-appointed guardian. There is no advanced directives noted about the patient other than that she does not have a power of revenue officer and she is a full code. Patient seen and examined at bedside. She is currently on sedation holiday. She states her head yes and no but this does not seem to be consistent or appropriate answering questions. Nursing present at bedside. No acute events noted overnight. Objective - Vital Signs Vital signs: Vital Signs Temp 96.4 F L 11/04/17 06:30 Pulse 65 11/04/17 08:44 Resp 21 11/04/17 07:00 BP 134/55 11/04/17 04:30 Pulse Ox 95 11/04/17 07:00 Intake & Output 11/03/17 11/04/17 11/04/17 18:59 06:59 18:59 Intake Total 4822.407 8868 39 Output Total 638 1285 75 Balance 501.322 -252 -36 Weight 170.4 kg Intake: IV 173 153 13 0.9 120 120 10 cefTAZidime 1 gm In 50 Sodium Chloride 0.9% 50 ml @ 100 mls/hr IVPB DAILY [facility] Rx#:[id number] pressure bag 3 33 3 Intake, IV Titration 480.322 400 Amount Propofol 1,000 mg In 480.322 400 Empty Bag 1 bag @ Titrate IV .Q0M [facility] Rx#: [id number] Tube Feeding 286 390 26 Other 200 90 Output: Urine 638 1285 75 Other: Voiding Method Indwelling Catheter Indwelling Catheter Indwelling Catheter # Bowel Movements 1 1 ABP, PAP, CO, CI - Last Documented Arterial Blood Pressure 163/54 - Exam General: Ill appearing, moderate distress, morbidly obese, appears stated age Derm: warm, dry Head: atraumatic, normocephalic, symmetric Eyes: EOMI, no lid lag, anicteric sclera Mouth: no lip lesion, mucus membranes moist Cardiovascular: S1S2 reg, no murmur, positive posterior tibial pulse bilateral, Lungs: CTA bilateral, no rhonchi, no rales , no accessory muscle use, on vent Abdominal: soft, nontender to palpation, no guarding, no appreciable organomegaly Ext: no gross muscle atrophy, 3+ pitting edema, no contractures Neuro: CN II-XI grossly intact, moving upper hands independently, no movement of feet currently Psych: Lethargic, intermittently following commands, not agitated - Labs CBC & Chem 7: 11/04/17 04:28 11/04/17 04:28 Labs: Abnormal Lab Results - Last 24 Hours (Table) 11/03/17 11/03/17 11/04/17 Range/Units 11:50 18:26 00:32 RBC (3.80-5.40) m/uL Hgb (11.4-16.0) gm/dL Hct (34.0-46.0) % MCHC (31.0-37.0) g/dL RDW (11.5-15.5) % Plt Count (150-450) k/uL Lymphocytes # (1.0-4.8) k/uL ABG pCO2 (35-45) mmHg ABG pO2 (83-108) mmHg ABG HCO3 (21-25) mmol/L ABG Total CO2 (19-24) mmol/L BUN (7-17) mg/dL Creatinine (0.52-1.04) mg/dL Glucose (74-99) mg/dL POC Glucose (mg/dL) 153 H 135 H 136 H (75-99) mg/dL Calcium (8.4-10.2) mg/dL AST (14-36) U/L ALT (9-52) U/L Total Protein (6.3-8.2) g/dL Albumin (3.5-5.0) g/dL 11/04/17 11/04/17 11/04/17 Range/Units 04:28 04:28 05:17 RBC 2.73 L (3.80-5.40) m/uL Hgb 7.1 L (11.4-16.0) gm/dL Hct 22.9 L (34.0-46.0) % MCHC 30.8 L (31.0-37.0) g/dL RDW 18.7 H (11.5-15.5) % Plt Count 81 L (150-450) k/uL Lymphocytes # 0.5 L (1.0-4.8) k/uL ABG pCO2 46 H (35-45) mmHg ABG pO2 70 L (83-108) mmHg ABG HCO3 28 H (21-25) mmol/L ABG Total CO2 29 H (19-24) mmol/L BUN 49 H (7-17) mg/dL Creatinine 1.97 H (0.52-1.04) mg/dL Glucose 131 H (74-99) mg/dL POC Glucose (mg/dL) (75-99) mg/dL Calcium 8.0 L (8.4-10.2) mg/dL AST 43 H (14-36) U/L ALT 58 H (9-52) U/L Total Protein 4.9 L (6.3-8.2) g/dL Albumin 2.3 L (3.5-5.0) g/dL 11/04/17 Range/Units 06:26 RBC (3.80-5.40) m/uL Hgb (11.4-16.0) gm/dL Hct (34.0-46.0) % MCHC (31.0-37.0) g/dL RDW (11.5-15.5) % Plt Count (150-450) k/uL Lymphocytes # (1.0-4.8) k/uL ABG pCO2 (35-45) mmHg ABG pO2 (83-108) mmHg ABG HCO3 (21-25) mmol/L ABG Total CO2 (19-24) mmol/L BUN (7-17) mg/dL Creatinine (0.52-1.04) mg/dL Glucose (74-99) mg/dL POC Glucose (mg/dL) 128 H (75-99) mg/dL Calcium (8.4-10.2) mg/dL AST (14-36) U/L ALT (9-52) U/L Total Protein (6.3-8.2) g/dL Albumin (3.5-5.0) g/dL Microbiology - Last 24 Hours (Table) 11/01/17 11:01 Gram Stain - Final Bronchial Washings - Right Bronchial Washings Culture - Final Kaley albicans 10/31/17 21:15 Gram Stain - Final Sputum Sputum Culture - Final Kaley albicans Assessment and Plan Assessment: Acute on chronic hypoxic respiratory failure, mulitfactorial - CHF, R lung collapase s/p bronch - Pulmonayr recs, vent management -Heparin drip was DC'd on 11/01 secondary to drop in hemoglobin. Patient was unable to tolerate VQ scan or CTA of the chest. Acute exacerbation of diastolic CHF with ejection fraction 50-55% -Continue with Lasix - BB resume - ARB on hold due to JOHN JOHN on CKD stage III, with vancomycin toxicity, currently receiving dialysis - HD on hold 11/04 -Nephrology recommendations -Renally dose medications -Continue with Lasix 3 times daily -If patient isn't improved and is able to show progress be weaned off vent then consider oncology recommendations regarding elevated But change Left Lower extremity wound growing out Klebsiella and Pseudomonas - ID recs - Off loading - Ceftazadime Right-sided pleural effusion -Likely chest tube placement which guardianship has been obtained. It may consider doing this if it becomes emergent prior to guardianship. Anemia of chronic disease on top of iron deficiency anemia - continue aranesp - FE replacement - follow intermittent CBC Thrombocytopenia -Likely multifactorial -Follow CBC Diabetes mellitus type 2 -A1c 5.4 - SSI - Follow BS Hypertension,elevated - resume BB, continue to hold ARB, Hydralazine, and Norvasc - follow BP Atherosclerotic coronary artery disease -ASA, lipitor Social issues -Daughter's estranged from the patient, we have been unable to get ahold of the brother, and urine looking for a public guardian to assist with getting an trach and PEG. Hyperkalemia, resolved Bacteremia ruled out DVT prophylaxis: heparin SC Discussed with: Nursing, Critical care, ID, CTS INFLAT[employer] BUILDINGS LAMINATOR Anticipated discharge: unknown Anticipated discharge place: Likely will need LTAC A total of 65 minutes was spent on the care of this complex patient more than 50 % of the time was spent in counseling and care coordination.
[2017-11-04] MEDS ORDERED: CLINDAMYCIN 600 MG in DEXTROSE 5% IN WATER 50 ML IVPB ONE ×2 (11:00)
[2017-11-04 12:13] LABS: Glucose,Whole Blood 148 mg/dL (75-99)
[2017-11-04] MEDS: SODIUM BICARBONATE TAB 650 MG TAB PO SCH (12:37)
--- NOTE | 2017-11-04 15:01 | P.PN ---
Subjective Progress Note Date: 11/04/17 65-year-old female patient is being seen in follow-up on 11/04/2017. This patient is morbidly obese with a BMI 33.9. She is in the intensive care is with acute on top of chronic history failure most likely on the basis of massive fluid overload. This morning, she is assist-control mode of ventilation at the rate of 20 with tidal volume of 400 and FiO2 of 50% with a PEEP of 5. Chest x-ray shows a right-sided pleural effusion. ET tube is in a good location. The blood gas showed a pH of 7.39 with a pCO2 of 46 and pO2 of 70 and this was on FiO2 of 50%. The patient is sedated with propofol at a dose of 50 g per KG per minute. She can arouse upon given a sedation holiday. In terms of her fluid overload, the patient has already received 2 sessions of hemodialysis 3 temporary dialysis catheter inserted in the right IJ. I discussed the case with nephrology today. We decided to hold off on dialysis as the patient is producing adequate amount of urine output while being on Lasix 83 g IV push every 12 hours. The patient is improving in terms of urine output and she is ready produced 1.9 L of urine output since morning. The creatinine from today's at 1.9 and the rest of the electrodes are all within normal limits. No significant acidosis. Bronchoscopy was done earlier and the patient did not reveal any significant microbial growth and the bronchioloalveolar lavage was also negative. Patient is on IV Fortaz and infectious disease on the case regarding the lower extremity wounds. Objective - Vital Signs Vital signs: Vital Signs Temp 98.1 F 11/04/17 08:00 Pulse 68 11/04/17 11:51 Resp 30 H 11/04/17 10:00 BP 135/54 11/04/17 08:00 Pulse Ox 95 11/04/17 10:00 Intake & Output 11/03/17 11/04/17 11/04/17 18:59 06:59 18:59 Intake Total 0277.324 3070 337 Output Total 638 1285 235 Balance 501.322 -252 102 Weight 170.4 kg Intake: IV 173 153 129 0.9 120 120 20 cefTAZidime 1 gm In 50 100 Sodium Chloride 0.9% 50 ml @ 100 mls/hr IVPB DAILY [facility] Rx#:[id number] pressure bag 3 33 9 Intake, IV Titration 480.322 400 100 Amount Propofol 1,000 mg In 480.322 400 100 Empty Bag 1 bag @ Titrate IV .Q0M [facility] Rx#: [id number] Tube Feeding 286 390 78 Other 200 90 30 Output: Urine 638 1285 235 Other: Voiding Method Indwelling Catheter Indwelling Catheter Indwelling Catheter # Bowel Movements 1 1 ABP, PAP, CO, CI - Last Documented Arterial Blood Pressure 166/51 - Exam No acute distress, sedated, with an orally placed endotracheal tube and NG tube. Sedated with Diprivan, comfortable likely distress. HEENT examination is grossly unremarkable. Mucous membranes are moist. Neck supple. Full range of motion. No adenopathy thyromegaly or neck vein distention. Cardiovascular examination reveals regular rhythm rate. S1-S2 normal. No S3 or S4. No discernible murmur noted. Heart sounds are very distant. Lungs reveal severely diminished breath sounds bilaterally, right greater than left. There are bilateral coarse rhonchi. Crackles are noted at both bases. No wheezes are appreciated. Very little air entry on the right side noted. Breath sounds are about what they were the day before. There is not been much change. Abdominal exam revealed normal bowel sounds. The abdomen was soft, non-tender, and without masses, organomegaly, or appreciable enlargement of the abdominal aorta. Extremities are intact. Chronic lower extremity edema is noted. She also is chronic venous stasis changes with hyperpigmentation. Heels are bandaged. Slightly improved edema of the lower extremities is noted. 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 Left heel measures at 2.4 x 3.5 x 0.2 cm right heel ulceration measuring at 2 x 2 x 0.2 total contact cast was removed Skin is without rash or lesion. See the lower extremity examination as mentioned above Neurologic examination reveals that the patient is arousable off the sedation. She can [place] to deep painful stimuli in all 4 extremities. Does not follow any commands at this point in time due to sedation. - Labs CBC & Chem 7: 11/04/17 04:28 11/04/17 04:28 Labs: Abnormal Lab Results - Last 24 Hours (Table) 11/03/17 11/04/17 11/04/17 Range/Units 18:26 00:32 04:28 RBC 2.73 L (3.80-5.40) m/uL Hgb 7.1 L (11.4-16.0) gm/dL Hct 22.9 L (34.0-46.0) % MCHC 30.8 L (31.0-37.0) g/dL RDW 18.7 H (11.5-15.5) % Plt Count 81 L (150-450) k/uL Lymphocytes # 0.5 L (1.0-4.8) k/uL ABG pCO2 (35-45) mmHg ABG pO2 (83-108) mmHg ABG HCO3 (21-25) mmol/L ABG Total CO2 (19-24) mmol/L BUN (7-17) mg/dL Creatinine (0.52-1.04) mg/dL Glucose (74-99) mg/dL POC Glucose (mg/dL) 135 H 136 H (75-99) mg/dL Calcium (8.4-10.2) mg/dL AST (14-36) U/L ALT (9-52) U/L Total Protein (6.3-8.2) g/dL Albumin (3.5-5.0) g/dL 11/04/1718 11/04/17 Range/Units 04:28 05:17 06:26 RBC (3.80-5.40) m/uL Hgb (11.4-16.0) gm/dL Hct (34.0-46.0) % MCHC (31.0-37.0) g/dL RDW (11.5-15.5) % Plt Count (150-450) k/uL Lymphocytes # (1.0-4.8) k/uL ABG pCO2 46 H (35-45) mmHg ABG pO2 70 L (83-108) mmHg ABG HCO3 28 H (21-25) mmol/L ABG Total CO2 29 H (19-24) mmol/L BUN 49 H (7-17) mg/dL Creatinine 1.97 H (0.52-1.04) mg/dL Glucose 131 H (74-99) mg/dL POC Glucose (mg/dL) 128 H (75-99) mg/dL Calcium 8.0 L (8.4-10.2) mg/dL AST 43 H (14-36) U/L ALT 58 H (9-52) U/L Total Protein 4.9 L (6.3-8.2) g/dL Albumin 2.3 L (3.5-5.0) g/dL 11/04/17 Range/Units 12:11 RBC (3.80-5.40) m/uL Hgb (11.4-16.0) gm/dL Hct (34.0-46.0) % MCHC (31.0-37.0) g/dL RDW (11.5-15.5) % Plt Count (150-450) k/uL Lymphocytes # (1.0-4.8) k/uL ABG pCO2 (35-45) mmHg ABG pO2 (83-108) mmHg ABG HCO3 (21-25) mmol/L ABG Total CO2 (19-24) mmol/L BUN (7-17) mg/dL Creatinine (0.52-1.04) mg/dL Glucose (74-99) mg/dL POC Glucose (mg/dL) 148 H (75-99) mg/dL Calcium (8.4-10.2) mg/dL AST (14-36) U/L ALT (9-52) U/L Total Protein (6.3-8.2) g/dL Albumin (3.5-5.0) g/dL Microbiology - Last 24 Hours (Table) 11/01/17 11:01 Gram Stain - Final Bronchial Washings - Right Bronchial Washings Culture - Final Kaley albicans Assessment and Plan Plan: Assessment 1 acute on top of chronic hypoxic history failure likely on the basis of CHF/ fluid overload and development of a large right-sided pleural effusion. 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 We' ll check to establish guardianship as I came to find out that the patient has significant problems with family members as there is no single person who wants to assume responsibility of her care. This includes a brother and the daughter. Based on this, we are looking for a public guardian this patient will going to get that through health and social care teacher. Following that he may be proceeding with a PEG and trach. I was concerned also sitting a right-sided chest tube at time of surgery to evacuate the right-sided pleural effusion and optimize her pulmonary status in general. Continued empiric antibiotic coverage. Continue the vent support. I dropped the PEEP down to 8. We'll try to wean out of the PEEP as tolerated as long as the pulse ox remains above 90%. Keep the rest of the vent settings are unchanged. We'll continue to follow make further recommendations based on progress per long-term prognosis poor baseline above-mentioned comorbidities. Critically care evaluation, more than 30 minutes.
[2017-11-04] MEDS: ASPIRIN 81 MG PO SCH (17:51)
[2017-11-04 18:17] LABS: Glucose,Whole Blood 138 mg/dL (75-99)
[2017-11-04 18:25] LABS: Glucose,Whole Blood 132 mg/dL (75-99)
--- NOTE | 2017-11-04 19:08 | P.PN ---
Subjective Progress Note Date: 11/04/17 66 year old woman with superobesity presents to the ER with marked increase of shortness of breath, with some chest pain also occurring. At admission there was evidence of worsening of her chronic renal failure and significant volume overload, with some diuresis she is already receiving relief from her extensive shortness of breath. At this time she is not complaining of any chest pain. She was found and she has been seen by pulmonary critical care, and there is a possibility of a thoracentesis future. At this time she denies other acute new complaints. A total contact cast is in place on the left leg for the pressure ulcer to the left heel is negative for any difficulties at all. The chronic ulcerations of the right heel is also without pain. She is aware of improved urinary output since being on the higher doses of Lasix. As noted she has a history of significant underlying coronary artery disease with a history of congestive heart failure with known diastolic dysfunction. She is feeling slightly better at this time but certainly not nearly her baseline. She does have significant debility. 10/28/2017 the patient has declined further today. She is requiring BiPAP for oxygen saturation, she is somewhat confused but does seem to be comfortable. She is unable to complain of any new symptoms 10/29/2017 the patient is much more awake and alert today. Her BiPAP is in place and she is no longer confused. She recognized me by name and knows that she is at the hospital. She is denying significant discomfort in her shortness of breath is improved. October 31, 2017 patient patient is worsen she is now developed respiratory failure and required intubation with mechanical ventilation and is sedated. She' s been seen by nephrology and with volume overload is receiving hemodialysis. The hope is that with dialysis she'll improve her pulmonary status from improved volume status. No fevers are noted. No new positive cultures. 11/01/2017 patient remained intubated sedated and mechanically ventilated with respiratory failure. She is receiving another course of hemodialysis which will hopefully remove a total of 6 L of fluid over this 3 day time frame. She still remains grossly volume overloaded. She fortunately does have some urinary output despite her renal failure that appears to multifactorial including vancomycin therapy. Psychosocial has had great difficulties, it appears that the social workers will ask for guardianship from the courts coming Saturday to make further plans. 11/04/2017 patient remains in intensive care unit intubated sedated and mechanically ventilated. Dialysis has helped remove some of her extensive edema and will have further dialysis tomorrow.her acidosis is improved, leukocytosis improved still has significant anemia. No new positive cultures. Objective - Vital Signs Vital signs: Vital Signs Temp 98.4 F 11/04/17 12:00 Pulse 68 11/04/17 16:50 Resp 23 11/04/17 14:00 BP 135/54 11/04/17 08:00 Pulse Ox 93 L 11/04/17 14:00 Intake & Output 11/04/17 11/04/17 11/05/17 06:59 18:59 06:59 Intake Total 1033 748 Output Total 1285 1215 Balance -252 -467 Weight 170.4 kg Intake: IV 153 246 0.9 120 110 cefTAZidime 1 gm In 100 Sodium Chloride 0.9% 50 ml @ 100 mls/hr IVPB DAILY [facility] Rx#:[id number] pressure bag 33 36 Intake, IV Titration 400 100 Amount Propofol 1,000 mg In 400 100 Empty Bag 1 bag @ Titrate IV .Q0M [facility] Rx#: [id number] Tube Feeding 390 312 Other 90 90 Output: Urine 1285 1215 Other: Voiding Method Indwelling Catheter Indwelling Catheter # Bowel Movements 1 1 ABP, PAP, CO, CI - Last Documented Arterial Blood Pressure 162/53 - Exam 66-year-old woman with superobesity is now intubated sedated and mechanically ventilated Head exam was generally normal. There was no scleral icterus or corneal arcus. Mucous membranes were moist. Neck was supple and without jugular venous distension, thyromegaly, or carotid bruits. Carotids were easily palpable bilaterally. There was no adenopathy. Lungs sounds are diminished bilaterally especially in the right lung base along with some dullness to percussion Heart sounds are regular, positive S1-S2 and there is systolic ejection murmur grade 3/6 systolic the precordium Abdominal exam revealed normal bowel sounds. The abdomen was soft, non-tender, and without masses, organomegaly, or appreciable enlargement of the abdominal aorta. Extremities revealed +1-2 pitting edema there is no cyanosis or clubbing, 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, there is also evidence of chronic venous stasis and lower extremities bilaterally. the heel ulcerations are improving now that she is in the ICU and is not walking. Neurologic sedated on the ventilator - Labs CBC & Chem 7: 11/04/17 04:28 11/04/17 04:28 Labs: Abnormal Lab Results - Last 24 Hours (Table) 11/04/17 11/04/17 11/04/17 Range/Units 00:32 04:28 04:28 RBC 2.73 L (3.80-5.40) m/uL Hgb 7.1 L (11.4-16.0) gm/dL Hct 22.9 L (34.0-46.0) % MCHC 30.8 L (31.0-37.0) g/dL RDW 18.7 H (11.5-15.5) % Plt Count 81 L (150-450) k/uL Lymphocytes # 0.5 L (1.0-4.8) k/uL ABG pCO2 (35-45) mmHg ABG pO2 (83-108) mmHg ABG HCO3 (21-25) mmol/L ABG Total CO2 (19-24) mmol/L BUN 49 H (7-17) mg/dL Creatinine 1.97 H (0.52-1.04) mg/dL Glucose 131 H (74-99) mg/dL POC Glucose (mg/dL) 136 H (75-99) mg/dL Calcium 8.0 L (8.4-10.2) mg/dL Phosphorus (2.5-4.5) mg/dL AST 43 H (14-36) U/L ALT 58 H (9-52) U/L Total Protein 4.9 L (6.3-8.2) g/dL Albumin 2.3 L (3.5-5.0) g/dL 11/04/17 11/04/17 11/04/17 Range/Units 04:28 05:17 06:26 RBC (3.80-5.40) m/uL Hgb (11.4-16.0) gm/dL Hct (34.0-46.0) % MCHC (31.0-37.0) g/dL RDW (11.5-15.5) % Plt Count (150-450) k/uL Lymphocytes # (1.0-4.8) k/uL ABG pCO2 46 H (35-45) mmHg ABG pO2 70 L (83-108) mmHg ABG HCO3 28 H (21-25) mmol/L ABG Total CO2 29 H (19-24) mmol/L BUN (7-17) mg/dL Creatinine (0.52-1.04) mg/dL Glucose (74-99) mg/dL POC Glucose (mg/dL) 128 H (75-99) mg/dL Calcium (8.4-10.2) mg/dL Phosphorus 6.1 H (2.5-4.5) mg/dL AST (14-36) U/L ALT (9-52) U/L Total Protein (6.3-8.2) g/dL Albumin (3.5-5.0) g/dL 11/04/17 11/04/17 11/04/17 Range/Units 12:11 18:15 18:23 RBC (3.80-5.40) m/uL Hgb (11.4-16.0) gm/dL Hct (34.0-46.0) % MCHC (31.0-37.0) g/dL RDW (11.5-15.5) % Plt Count (150-450) k/uL Lymphocytes # (1.0-4.8) k/uL ABG pCO2 (35-45) mmHg ABG pO2 (83-108) mmHg ABG HCO3 (21-25) mmol/L ABG Total CO2 (19-24) mmol/L BUN (7-17) mg/dL Creatinine (0.52-1.04) mg/dL Glucose (74-99) mg/dL POC Glucose (mg/dL) 148 H 138 H 132 H (75-99) mg/dL Calcium (8.4-10.2) mg/dL Phosphorus (2.5-4.5) mg/dL AST (14-36) U/L ALT (9-52) U/L Total Protein (6.3-8.2) g/dL Albumin (3.5-5.0) g/dL Laboratory Results WBC 8.6 k/uL (3.8-10.6) 11/04/17 04:28 RBC 2.73 m/uL (3.80-5.40) L 11/04/17 04:28 Hgb 7.1 gm/dL (11.4-16.0) L 11/04/17 04:28 Hct 22.9 % (34.0-46.0) L 11/04/17 04:28 MCV 83.9 fL (80.0-100.0) 11/04/17 04:28 MCH 25.8 pg (25.0-35.0) 11/04/17 04:28 MCHC 30.8 g/dL (31.0-37.0) L 11/04/17 04:28 RDW 18.7 % (11.5-15.5) H 11/04/17 04:28 Plt Count 81 k/uL (150-450) L 11/04/17 04:28 Neutrophils % 82 % 11/04/17 04:28 Lymphocytes % 6 % 11/04/17 04:28 Monocytes % 5 % 11/04/17 04:28 Eosinophils % 6 % 11/04/17 04:28 Basophils % 0 % 11/04/17 04:28 Neutrophils # 7.1 k/uL (1.3-7.7) 11/04/17 04:28 Lymphocytes # 0.5 k/uL (1.0-4.8) L 11/04/17 04:28 Monocytes # 0.5 k/uL (0-1.0) 11/04/17 04:28 Eosinophils # 0.5 k/uL (0-0.7) 11/04/17 04:28 Basophils # 0.0 k/uL (0-0.2) 11/04/17 04:28 Manual Slide Review Performed 11/01/17 04:06 Hypochromasia Slight 11/04/17 04:28 Anisocytosis Slight 11/04/17 04:28 ESR 69 mm/hr (0-20) H 10/28/17 05:47 Retic Count 2.6 % (0.5-2.0) H 10/28/17 05:47 PT 10.0 sec (9.0-12.0) 10/25/17 13:20 INR 1.0 (<1.2) 10/25/17 13:20 APTT 133.7 sec (22.0-30.0) H* 11/01/17 06:30 D-Dimer 1.80 mg/L FEU (<0.60) H 10/25/17 13:20 Sample Site lore 11/04/17 05:17 ABG pH 7.39 (7.35-7.45) 11/04/17 05:17 ABG pCO2 46 mmHg (35-45) H 11/04/17 05:17 ABG pO2 70 mmHg (83-108) L 11/04/17 05:17 ABG HCO3 28 mmol/L (21-25) H 11/04/17 05:17 ABG Total CO2 29 mmol/L (19-24) H 11/04/17 05:17 ABG O2 Saturation 94.9 % (94-97) 11/04/17 05:17 ABG Base Excess 2.8 mmol/L 11/04/17 05:17 Timothy Test Yes 11/04/17 05:17 FiO2 50 % 11/04/17 05:17 Sodium 137 mmol/L (137-145) 11/04/17 04:28 Potassium 4.0 mmol/L (3.5-5.1) 11/04/17 04:28 Chloride 102 mmol/L (98-107) 11/04/17 04:28 Carbon Dioxide 27 mmol/L (22-30) 11/04/17 04:28 Anion Gap 8 mmol/L 11/04/17 04:28 BUN 49 mg/dL (7-17) H 11/04/17 04:28 Creatinine 1.97 mg/dL (0.52-1.04) H 11/04/17 04:28 Est GFR (CKD-EPI)AfAm 30 (>60 ml/min/1.73 sqM) 11/04/17 04:28 Est GFR (CKD-EPI)NonAf 26 (>60 ml/min/1.73 sqM) 11/04/17 04:28 Glucose 131 mg/dL (74-99) H 11/04/17 04:28 POC Glucose (mg/dL) 132 mg/dL (75-99) H 11/04/17 18:23 POC Glu [employer] ID Hali Devries 11/04/17 18:[address] Glu mg/dL 103 10/31/17 04:20 Hemoglobin A1c 5.2 % (4.0-6.0) 10/31/17 04:20 Plasma Lactic Acid Jamar <0.5 mmol/L (0.7-2.0) L 10/31/17 04:20 Calcium 8.0 mg/dL (8.4-10.2) L 11/04/17 04:28 Phosphorus 6.1 mg/dL (2.5-4.5) H 11/04/17 04:28 Magnesium 2.1 mg/dL (1.6-2.3) 11/04/17 04:28 Iron 114 ug/dL (50-170) 10/27/17 05:21 TIBC 252 ug/dL (228-460) 10/27/17 05:21 Iron Saturation 45.24 (12.00-45.00) H 10/27/17 05:21 Ferritin 64.7 ng/mL (10.0-291.0) 10/27/17 05:21 Total Bilirubin 0.2 mg/dL (0.2-1.3) 11/04/17 04:28 AST 43 U/L (14-36) H 11/04/17 04:28 ALT 58 U/L (9-52) H 11/04/17 04:28 Alkaline Phosphatase 61 U/L (38-126) 11/04/17 04:28 Total Creatine Kinase 22 U/L (30-135) L 10/29/17 05:28 CK-MB (CK-2) 1.5 ng/mL (0.0-2.4) 10/29/17 05:28 CK-MB (CK-2) Rel Index 6.8 10/29/17 05:28 Troponin I <0.012 ng/mL (0.000-0.034) 10/26/17 05:40 C-Reactive Protein 14.6 mg/L (<10.0) H 10/28/17 05:47 NT-Pro-B Natriuret Pep 3960 pg/mL 10/25/17 13:20 Total Protein 4.9 g/dL (6.3-8.2) L 11/04/17 04:28 Total Protein (PEP) 6.1 g/dL (6.2-8.2) L 10/28/17 05:47 Albumin 2.3 g/dL (3.5-5.0) L 11/04/17 04:28 Albumin (PEP) 2.76 g/dL (3.80-4.90) L 10/28/17 05:47 Ukyps-2-Ptwdepiut 0.45 g/dL (0.10-0.40) H 10/28/17 05:47 Luufk-0-Bcvxzsclm 0.59 g/dL (0.60-1.00) L 10/28/17 05:47 Beta Globulins 1.38 g/dL (0.60-1.30) H 10/28/17 05:47 Gamma Globulins 0.92 g/dL (0.70-1.50) 10/28/17 05:47 PEP Interpretation SEE NOTE 10/28/17 05:47 TSH 1.370 mIU/L (0.465-4.680) 10/31/17 04:20 Cortisol 24 ug/dL 10/31/17 04:20 Urine Color Red 10/30/17 18:45 Urine Appearance Turbid (Clear) H 10/30/17 18:45 Urine pH 5.5 (5.0-8.0) 10/30/17 18:45 Ur Specific [place] 1.015 (1.001-1.035) 10/30/17 18:45 Urine Protein 2+ (Negative) H 10/30/17 18:45 Urine Glucose (UA) Trace (Negative) H 10/30/17 18:45 Urine Ketones Negative (Negative) 10/30/17 18:45 Urine Blood Large (Negative) H 10/30/17 18:45 Urine Nitrite Negative (Negative) 10/30/17 18:45 Urine Bilirubin Negative (Negative) 10/30/17 18:45 Urine Urobilinogen <2.0 mg/dL (<2.0) 10/30/17 18:45 Ur Leukocyte Esterase Large (Negative) H 10/30/17 18:45 Urine RBC 113 /hpf (0-5) H 10/30/17 18:45 Urine WBC >182 /hpf (0-5) H 10/30/17 18:45 Urine WBC Clumps Many /hpf (None) H 10/30/17 18:45 Ur Squamous Epith Cells 1 /hpf (0-4) 10/28/17 02:27 Urine Bacteria Many /hpf (None) H 10/30/17 18:45 Granular Casts 129 /lpf (0) 10/30/17 18:45 Urine Yeast (Budding) Rare /hpf (None) H 10/28/17 02:27 Fluid Source Bronchial Wash 11/01/17 11:01 Fluid Color Colorless 11/01/17 11:01 Fluid Appearance Cloudy 11/01/17 11:01 Fluid RBC 385 /uL 11/01/17 11:01 Fluid Nucleated Cells 25 /uL 11/01/17 11:01 Fluid Polynuclear WBCs 49 % 11/01/17 11:01 Fluid Mononuclear WBCs 50 % 11/01/17 11:01 Fluid Eosinophils 1 % 11/01/17 11:01 Random Vancomycin 25.1 ug/mL 11/02/17 04:30 Serum ALYCE Interpret SEE NOTE 10/28/17 05:47 DIANNE Screen NEGATIVE (NEGATIVE) 10/28/17 05:47 c-ANCA <1:20 Titer (<1:20) 10/25/17 13:00 p-ANCA <1:20 Titer (<1:20) 10/25/17 13:00 Complement C3 156.0 mg/dL (80.0-207.0) 10/28/17 05:47 Complement C4 33.6 mg/dL (10.0-53.0) 10/28/17 05:47 Tot Complement (CH50) 91 U/mL (42 - 95) 10/29/17 05:28 Free [place] LC, Quant 20.30 mg/dL (0.33-1.94) H 10/31/17 04:20 Free Lambda LC, Quant 2.79 mg/dL (0.57-2.63) H 10/31/17 04:20 Hepatitis A IgM Ab Non-Reactive (Non-Reactive) 10/28/17 05:47 Hep Bs Antigen Non-Reactive (Non-Reactive) 10/30/17 19:00 Hep Bs Antibody Non-Reactive (Non-Reactive) 10/30/17 19:00 Hep Bs Antibody, Quant 3.5 mIU/mL 10/30/17 19:00 Hep B Core IgM Ab Non-Reactive (Non-Reactive) 10/28/17 05:47 Hep C IgG Ab Non-Reactive (Non-Reactive) 10/28/17 05:47 Virus Source See Below 11/01/17 11:01 Viral Test See Below 11/01/17 11:01 Virus Analysis Interp See Below 11/01/17 11:01 Blood Type B Positive 10/26/17 18:58 Blood Type Recheck No 10/26/17 18:58 Antibody Screen NEGATIVE 10/26/17 18:58 Crossmatch See Detail 10/26/17 18:58 Spec Expiration Date 10/29/2017 10/26/17 18:58 Microbiology 11/01/17 11:01 Bronchial Washings - Right Gram Stain - Final 11/01/17 11:01 Bronchial Washings - Right Bronchial Washings Culture - Final Kaley albicans 10/31/17 21:15 Sputum Gram Stain - Final 10/31/17 21:15 Sputum Sputum Culture - Final Kaley albicans 11/01/17 11:01 Bronchial Washings - Right Acid Fast Bacilli Smear - Final 11/01/17 11:01 Bronchial Washings - Right Acid Fast Bacilli Culture - Preliminary 10/26/17 17:30 Blood Blood Culture - Final No Growth after 144 hours 11/01/17 11:01 Bronchial Washings - Right Fungal Culture - Preliminary 10/30/17 18:45 Urine,Catheterized Urine Culture - Final 10/25/17 18:17 Blood Blood Culture Gram Stain - Final 10/25/17 18:17 Blood Blood Culture - Final Staphylococcus epidermidis 10/28/17 02:27 Urine,Voided Urine Culture - Final 10/26/17 20:41 Ankle - Right Gram Stain - Final 10/26/17 20:41 Ankle - Right Wound Culture - Final Klebsiella oxytoca Pseudomonas aeruginosa 10/25/17 18:17 Blood Blood Culture - Final Assessment and Plan (1) Diabetes mellitus type 2, uncontrolled, with complications Current Visit: No Status: Acute Priority: Medium Code(s): E11.8 - TYPE 2 DIABETES MELLITUS WITH UNSPECIFIED COMPLICATIONS; E11.65 - TYPE 2 DIABETES MELLITUS WITH HYPERGLYCEMIA SNOMED Code(s): 950897006 (2) Diabetic ulcer of heel Narrative/Plan: 66-year-old woman who has superobesity presented to Hospital from the extended care facility with increasing shortness of breath. If the admission there is evidence of fluid overload and worsening of her chronic diastolic congestive heart failure. It is noted that she has developed a right pleural effusion and has been seen by pulmonary medicine. Goal will be for further diuresis before any attempt of a thoracentesis. She this point and was more comfortable than admission, appears her chest pain has improved. Physical chronic ulcerations the left heel and a total contact cast is in place. This is removed tomorrow. The ulceration to the right heel has the Opticel silver in place which is adequate and can be changed every other day. She does have a chronic anemia that has worsened over the last year. This may be worsening her heart failure and will be further evaluated at this time. She is being treated for this significant infection to heal with intravenous vancomycin at the [facility]. Vancomycin will continue also had and Rocephin now based on prior culture results. Patient is a blood culture drawn it appears to be contamination would need no further ulceration of treatment unless there are further positive blood cultures. Given that she does not have fevers or chills it is not likely that she has a line sepsis. 10/28/2017 patient statuses worsened today. Her pulmonary status seems to have declined and she is requiring BiPAP for adequate oxygenation. She is more confused with her current respiratory difficulties. She however is not agitated and does not seem to be uncomfortable. BiPAP is reapplied and is being watched closely to try to keep into place. Blood culture contamination. Wound culture has gram-negative bacilli and at this time vancomycin is being continued to complete his course of therapy from the prior bony infection, Rocephin is being utilized until there is further culture data. Her prognosis is poor. 10/29/2017 the patient is improved today. With her BiPAP and place her mentation is clear. The ulceration of the left heel will be treated with the silver alginate dressing also. Antibiotic therapy will be altered from Rocephin to ceftazidime given the isolated Klebsiella and Pseudomonas. She continues to have difficulty with her renal failure is being followed by nephrology. She is yet to clear her last dose of antibiotic therapy (vancomycin ) that was given before her admission. The patient is very weak and will need to complete a course of physical therapy before she will be able to get back to her home setting. Nephrology is relating if she does not have further improvement they will then consider renal replacement therapy to improve her fracture volume overload chronic respiratory failure and acidosis. 10/31 2017 d the patient is now developed respiratory failure and is required intubation with sedation and mechanical ventilation. She is comfortable at this time and is well sedated. Receiving hemodialysis to improve her volume overload and her acidosis. The acute renal failure appears to be multifactorial and it is as she has been vancomycin therapy. 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 She is nearing the end of course of that treatment and with the renal failure the vancomycin level has remained high for the last several days and likely will be able to complete course of therapy without any further dosing. With the gram negatives being seen from the ankle culture Rocephin was added. This is transition to ceftazidime given the finding of pseudomonas at the site. 11/01/2017reveals the patient to remain on the ventilator is intubated and sedated, seems comfortable. Seething further courses of hemodialysis today. Goal is for further fluid removal to improve her volume overload status to improve her respiratory failure. Her sepsis appears to be stable. She will receive no further doses of vancomycin at this time still has adequate levels at this time. She had mucus plugging earlier in the day and a bronchoscopy was performed urgently. Cultures are pending which will further direct antimicrobial therapy as needed. Pathogens isolated from the leg Fortaz is being utilized with also cover pneumonia, still has therapeutic levels of vancomycin. 11/04/2017 patient remains in intensive care unit intubated sedated and mechanically ventilated. Does appear to be comfortable and with her several courses dialysis's had some improvement of her extensive edema and volume overload. Antimicrobial therapy as well as ceftazidime for the pathogens from the ankle ulceration. Vancomycin therapy has completed. Her creatinine is improved and is at 1.97 today. Social work team is working with the courts to have a guardian appointed to make the appropriate plans. Current Visit: Yes Status: Acute Priority: High Code(s): E11.621 - TYPE 2 DIABETES MELLITUS WITH FOOT ULCER; L97.409 - NON-PRS CHRONIC ULCER OF UNSP HEEL AND MIDFOOT W UNSP SEVERT SNOMED Code(s): 67701745 (3) Severe obesity (BMI >= 40) Current Visit: No Status: Acute Code(s): E66.01 - MORBID (SEVERE) OBESITY DUE TO EXCESS CALORIES SNOMED Code(s): 573352727
[2017-11-04] MEDS: ATORVASTATIN 10 MG TAB PO SCH (20:18)
[2017-11-04 23:55] LABS: Glucose,Whole Blood 136 mg/dL (75-99)
[2017-11-05] MEDS: HEPARIN SODIUM,PORCINE 5,000 UNIT/ML 1 ML VIAL SQ SCH ×4 (00:04→23:31)
[2017-11-05] MEDS: METOPROLOL TARTRATE 12.5 MG TAB NG-TUBE SCH ×3 (01:37→20:34)
[2017-11-05] MEDS: PROPOFOL 1,000 MG in EMPTY BAG 1 BAG IV SCH ×7 (02:05→23:32)
[2017-11-05] MEDS: IPRATROPIUM-ALBUTEROL 3 ML NEB INHALATION SCH ×6 (03:49→23:59)
[2017-11-05 05:01] LABS: ABG Base Excess 2.5 mmol/L; ABG HCO3 27 mmol/L (21-25); ABG Oxygen Saturation 92.7 % (94-97); ABG PCO2 44 mmHg (35-45); ABG PO2 63 mmHg (83-108); ABG TCO2 29 mmol/L (19-24)
[2017-11-05 05:07] LABS: Anisocytosis Slight; HCT 22.6 % (34.0-46.0); Hypochromasia Marked; MCH 26.8 pg (25.0-35.0); MCHC 30.9 g/dL (31.0-37.0); MCV 86.9 fL (80.0-100.0); Mean Platelet Volume 9.1; WBC 9.1 k/uL (3.8-10.6)
[2017-11-05 05:10] LABS: Platelet Count 93 k/uL (150-450)
[2017-11-05 05:11] LABS: Albumin 2.3 g/dL (3.5-5.0); Calcium 8.1 mg/dL (8.4-10.2); Magnesium 2.2 mg/dL (1.6-2.3); Phosphorus 6.6 mg/dL (2.5-4.5); Potassium 4.1 mmol/L (3.5-5.1); Total Bilirubin 0.1 mg/dL (0.2-1.3); Total Protein 4.9 g/dL (6.3-8.2)
[2017-11-05 05:49] LABS: Glucose,Whole Blood 137 mg/dL (75-99)
[2017-11-05] MEDS: INSULIN ASPART 100 UNIT/ML 1 ML 10 ML VIAL SQ SCH ×4 (05:56→23:43)
--- NOTE | 2017-11-05 08:15 | XR ---
EXAMINATION TYPE: XR chest 1V portable DATE OF EXAM: 11/05/2017 CLINICAL HISTORY: Difficulty breathing progress study. TECHNIQUE: Single AP portable semiupright view of the chest is obtained. COMPARISON: Chest x-ray from one day earlier and older studies. FINDINGS: An endotracheal tube, orogastric tube, right-sided PICC line, and right internal jugular c entral venous catheter are all stable in appearance. Overlying EKG leads are redemonstrated. Cardiac silhouette size is stable and upper limits of normal with atherosclerotic thoracic aorta. There is pe rsistent bibasilar opacity consistent with moderate to large right and small to moderate-sized left p leural effusions. Fluid appears to extend to right lung apex. No mediastinal shift is seen. There is associated right lung atelectasis and/or infiltrate. Osseous structures are intact. IMPRESSION: Overall stable findings, suspect moderate to large size right and small to moderate-siz ed left pleural effusions with associated right lung atelectasis and/or infiltrate. Consider ultrasou nd evaluation.
[2017-11-05] MEDS ORDERED: PROPOFOL 100 ML IV ONE (08:37)
[2017-11-05] MEDS: PANTOPRAZOLE 40 MG/10 ML VIAL IVP SCH (08:51)
[2017-11-05] MEDS: FUROSEMIDE 10 MG/ML 10 ML VIAL IV SCH ×3 (08:51→23:31)
[2017-11-05] MEDS: NYSTATIN 100,000 UNIT/GM POWD 15 GM TOPICAL SCH ×2 (08:54→20:34)
[2017-11-05] MEDS: CHLORHEXIDINE GLUCONATE 15 ML CUP MUCOUS MEM SCH ×2 (08:57→20:33)
--- NOTE | 2017-11-05 10:02 | P.PN ---
Subjective Progress Note Date: 11/05/17 65-year-old female patient is being seen in follow-up on 11/04/2017. This patient is morbidly obese with a BMI 33.9. She is in the intensive care is with acute on top of chronic history failure most likely on the basis of massive fluid overload. This morning, she is assist-control mode of ventilation at the rate of 20 with tidal volume of 400 and FiO2 of 50% with a PEEP of 10. Chest x-ray shows a right-sided pleural effusion. ET tube is in a good location. The blood gas showed a pH of 7.39 with a pCO2 of 46 and pO2 of 70 and this was on FiO2 of 50%. The patient is sedated with propofol at a dose of 50 g per KG per minute. She can arouse upon given a sedation holiday. In terms of her fluid overload, the patient has already received 2 sessions of hemodialysis 3 temporary dialysis catheter inserted in the right IJ. I discussed the case with nephrology today. We decided to hold off on dialysis as the patient is producing adequate amount of urine output while being on Lasix 83 g IV push every 12 hours. The patient is improving in terms of urine output and she is ready produced 1.9 L of urine output since morning. The creatinine from today's at 1.9 and the rest of the electrodes are all within normal limits. No significant acidosis. Bronchoscopy was done earlier and the patient did not reveal any significant microbial growth and the bronchioloalveolar lavage was also negative. Patient is on IV Fortaz and infectious disease on the case regarding the lower extremity wounds. On 11/05/2017 I'm seeing this patient for a follow-up. The patient is sedated and intubated on a mechanical ventilator. She is an assist-control mode of ventilation at the rate of 12 and FiO2 of 50% and a PEEP of 8 with a tidal volume of 400. She is was sedated with Diprivan and she is calm and comfortable. No significant orotracheal secretion. Chest x-ray showing a large right-sided pleural effusion and his tube is in a good location. The blood gas showed a pH of 7.4 with a pCO2 of 44 and pO2 of 63. We held off on dialysis yesterday as the patient is improving in terms of urine output. She is producing almost 50 mL an hour and she is on Lasix 80 mg IV push every 8 hours. The net fluid balance is -697 mL over the past 24 hours. We have contemplated PEG and trach. We will also contemplated chest tube insertion however we were not successful and obtaining consent. We're the process of getting a legal guardian at this point to undergo this procedures. Unfortunately nothing much can be done without any consent knowing that all of these procedures are not life saving or do not being done for immediate life- threatening conditions. The patient is not having any fever. No leukocytosis. Hemoglobin is at 7. Creatinine is down to 2. No pressors for now. Tolerating the tube feeds. Antibiotic coverage includes IV Fortaz and clindamycin. No other significant events over the past 24 hours for now. Objective - Vital Signs Vital signs: Vital Signs Temp 97.5 F L 11/05/17 08:00 Pulse 62 11/05/17 09:30 Resp 23 11/05/17 09:30 BP 133/56 11/04/17 19:00 Pulse Ox 96 11/05/17 09:30 Intake & Output 11/04/17 11/05/17 11/05/17 18:59 06:59 18:59 Intake Total 748 894.467 262.622 Output Total 1215 1125 170 Balance -467 -230.533 92.622 Weight 170.6 kg Intake: IV 246 206 39 0.9 110 120 30 cefTAZidime 1 gm In 100 50 Sodium Chloride 0.9% 50 ml @ 100 mls/hr IVPB DAILY [facility] Rx#:[id number] pressure bag 36 36 9 Intake, IV Titration 100 182.467 141.622 Amount Propofol 1,000 mg In 100 182.467 141.622 Empty Bag 1 bag @ Titrate IV .Q0M REPLACED BY [facility] Rx#: [id number] Tube Feeding 312 416 52 Other 90 90 30 Output: Urine 1215 1125 170 Other: Voiding Method Indwelling Catheter Indwelling Catheter # Bowel Movements 1 2 ABP, PAP, CO, CI - Last Documented Arterial Blood Pressure 138/53 - Exam No acute distress, sedated, with an orally placed endotracheal tube and NG tube. Sedated with Diprivan, comfortable likely distress. HEENT examination is grossly unremarkable. Mucous membranes are moist. Neck supple. Full range of motion. No adenopathy thyromegaly or neck vein distention. Cardiovascular examination reveals regular rhythm rate. S1-S2 normal. No S3 or S4. No discernible murmur noted. Heart sounds are very distant. Lungs reveal severely diminished breath sounds bilaterally, right greater than left. There are bilateral coarse rhonchi. Crackles are noted at both bases. No wheezes are appreciated. Very little air entry on the right side noted. Breath sounds are about what they were the day before. There is not been much change. Abdominal exam revealed normal bowel sounds. The abdomen was soft, non-tender, and without masses, organomegaly, or appreciable enlargement of the abdominal aorta. Extremities are intact. Chronic lower extremity edema is noted. She also is chronic venous stasis changes with hyperpigmentation. Heels are bandaged. Slightly improved edema of the lower extremities is noted. 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 Left heel measures at 2.4 x 3.5 x 0.2 cm right heel ulceration measuring at 2 x 2 x 0.2 total contact cast was removed Skin is without rash or lesion. See the lower extremity examination as mentioned above Neurologic examination reveals that the patient is arousable off the sedation. She can [place] to deep painful stimuli in all 4 extremities. Does not follow any commands at this point in time due to sedation. - Labs CBC & Chem 7: 11/05/17 04:12 11/05/17 04:12 Labs: Abnormal Lab Results - Last 24 Hours (Table) 11/04/17 11/04/17 11/04/17 Range/Units 04:28 12:11 18:15 RBC (3.80-5.40) m/uL Hgb (11.4-16.0) gm/dL Hct (34.0-46.0) % MCHC (31.0-37.0) g/dL RDW (11.5-15.5) % Plt Count (150-450) k/uL ABG pO2 (83-108) mmHg ABG HCO3 (21-25) mmol/L ABG Total CO2 (19-24) mmol/L ABG O2 Saturation (94-97) % BUN (7-17) mg/dL Creatinine (0.52-1.04) mg/dL Glucose (74-99) mg/dL POC Glucose (mg/dL) 148 H 138 H (75-99) mg/dL Calcium (8.4-10.2) mg/dL Phosphorus 6.1 H (2.5-4.5) mg/dL Total Bilirubin (0.2-1.3) mg/dL ALT (9-52) U/L Total Protein (6.3-8.2) g/dL Albumin (3.5-5.0) g/dL 11/04/17 11/04/17 11/05/17 Range/Units 18:23 23:54 04:12 RBC 2.60 L (3.80-5.40) m/uL Hgb 7.0 L* (11.4-16.0) gm/dL Hct 22.6 L (34.0-46.0) % MCHC 30.9 L (31.0-37.0) g/dL RDW 19.0 H (11.5-15.5) % Plt Count 93 L (150-450) k/uL ABG pO2 (83-108) mmHg ABG HCO3 (21-25) mmol/L ABG Total CO2 (19-24) mmol/L ABG O2 Saturation (94-97) % BUN (7-17) mg/dL Creatinine (0.52-1.04) mg/dL Glucose (74-99) mg/dL POC Glucose (mg/dL) 132 H 136 H (75-99) mg/dL Calcium (8.4-10.2) mg/dL Phosphorus (2.5-4.5) mg/dL Total Bilirubin (0.2-1.3) mg/dL ALT (9-52) U/L Total Protein (6.3-8.2) g/dL Albumin (3.5-5.0) g/dL 11/05/17 11/05/17 11/05/17 Range/Units 04:12 05:00 05:47 RBC (3.80-5.40) m/uL Hgb (11.4-16.0) gm/dL Hct (34.0-46.0) % MCHC (31.0-37.0) g/dL RDW (11.5-15.5) % Plt Count (150-450) k/uL ABG pO2 63 L (83-108) mmHg ABG HCO3 27 H (21-25) mmol/L ABG Total CO2 29 H (19-24) mmol/L ABG O2 Saturation 92.7 L (94-97) % BUN 52 H (7-17) mg/dL Creatinine 2.07 H (0.52-1.04) mg/dL Glucose 124 H (74-99) mg/dL POC Glucose (mg/dL) 137 H (75-99) mg/dL Calcium 8.1 L (8.4-10.2) mg/dL Phosphorus 6.6 H (2.5-4.5) mg/dL Total Bilirubin 0.1 L (0.2-1.3) mg/dL ALT 56 H (9-52) U/L Total Protein 4.9 L (6.3-8.2) g/dL Albumin 2.3 L (3.5-5.0) g/dL Assessment and Plan Plan: Assessment 1 acute on top of chronic hypoxic history failure likely on the basis of CHF/ fluid overload and development of a large right-sided pleural effusion. The patient has been intubated on the mechanical ventilator since 10/31/2017. The patient has bilateral pleural effusion and a patient has a large right-sided pleural effusion on the right. Obviously diuretics with help. Another faster way of optimizing the pulmonary status will be better chest tube insertion. Nevertheless, were not able to get any consent from family and without trying to establish a legal guardian prior to performing any of these procedures. While, the patient remains intubated on a mechanical ventilator and she is being diuresed IV Lasix to optimize her volume status. She is a negative fluid balance for now and her renal function is stable at creatinine of 2.0. 2 right lung collapse, post bronchoscopy on 11/01/2017 with a bronchioloalveolar lavage that showed no microbial growth and the patient on empiric antibiotic coverage with IV cefepime 3 morbid obesity with a BMI 53.9 4 stage III kidney failure, currently on hemodialysis per no dialysis was done over the weekend and today based on improvement in the urine output and the patient is currently on IV Lasix 80 mg every 8 hours. Her urine output is improving and the order of 50 mL an hour 5 anemia of chronic disease secondary to chronic renal failure, hemoglobin is stable at 7.0 6 diabetes mellitus 7 nonhealing ulcers in the lower extremities bilaterally 8 hypertension 9 previous history of cellulitis of the lower eczematous secondary to pseudomonas and klebsiella Plan Establish a legal guardian as soon as possible. Consider draining the pleural fluid bilaterally more so on the right knowing that there is a large right- sided pleural effusion. May diabetic chest tube insertion on a PICC Catheter insertion to evacuate the right-sided pleural effusion. Meanwhile, continue vent support. PEG and trach will be considered once the patient has a legal guardian and the appropriate consents are obtained. No dialysis for today. Function is stable. The patient is producing urine output. Continue vent support. Dropped on the PEEP to 5. Continue tube feeds. Continue antibiotics. Continue rest of the supportive care and further recommendations are to follow. I've talked to case maker and were trying to get an emergency guardian on this patient for further interventions. Critically care evaluation , more than 30 minutes. Time with Patient: Greater than 30
--- NOTE | 2017-11-05 12:05 | P.PN ---
Subjective patient is seen in follow-up for acute kidney injury on chronic kidney disease. Patient has chronic kidney disease stage III with baseline creatinine in the range of 1.8-2.3 secondary to diabetic kidney disease. Creatinine was 3.5 on October 30. She was oliguric and volume overloaded. Patient was started on hemodialysis on October 30 and has undergone 3 treatments of hemodialysis so far with total 6 L ultrafiltration. She is maintained on Lasix 80 mg IV three times daily - urine output about 60 mL per hour. Vancomycin level is high at 35.1 10/29; 25.1 as of 11/02. Currently intubated. Not on pressors. Noted to have bilateral pleural effusions. She is maintained on tube feeds. Vital signs are stable. General: The patient appeared well nourished and normally developed. HEENT: Head exam is unremarkable. Neck is without jugular venous distension. Intubated. LUNGS: Breath sounds decreased. HEART: Rate and Rhythm are regular. First and second heart sounds normal. No murmurs, rubs or gallops. ABDOMEN: Abdominal exam reveals normal bowel sounds. Non-tender and non- distended. No evidence of peritonitis. EXTREMITITES: 1+ edema. Objective - Vital Signs Vital signs: Vital Signs Temp 97.5 F L 11/05/17 08:00 Pulse 58 L 11/05/17 11:30 Resp 23 11/05/17 11:00 BP 123/58 11/05/17 11:00 Pulse Ox 96 11/05/17 11:00 Intake & Output 11/04/17 11/05/17 11/05/17 18:59 06:59 18:59 Intake Total 748 894.467 515.332 Output Total 1215 1125 300 Balance -467 -230.533 215.332 Weight 170.6 kg 170.6 kg Intake: IV 246 206 205 0.9 110 120 40 cefTAZidime 1 gm In 100 50 100 Sodium Chloride 0.9% 50 ml @ 100 mls/hr IVPB DAILY [facility] Rx#:[id number] cefTAZidime 1 gm In 50 Sodium Chloride 0.9% 50 ml @ 100 mls/hr IVPB Q12HR [facility] Rx#:[id number] pressure bag 36 36 15 Intake, IV Titration 100 182.467 176.332 Amount Propofol 1,000 mg In 100 182.467 176.332 Empty Bag 1 bag @ Titrate IV .Q0M [facility] Rx#: [id number] Tube Feeding 312 416 104 Other 90 90 30 Output: Urine 1215 1125 300 Other: Voiding Method Indwelling Catheter Indwelling Catheter Indwelling Catheter # Bowel Movements 1 2 ABP, PAP, CO, CI - Last Documented Arterial Blood Pressure 150/58 - Labs CBC & Chem 7: 11/05/17 04:12 11/05/17 04:12 Labs: Abnormal Lab Results - Last 24 Hours (Table) 11/04/17 11/04/17 11/04/17 Range/Units 04:28 12:11 18:15 RBC (3.80-5.40) m/uL Hgb (11.4-16.0) gm/dL Hct (34.0-46.0) % MCHC (31.0-37.0) g/dL RDW (11.5-15.5) % Plt Count (150-450) k/uL ABG pO2 (83-108) mmHg ABG HCO3 (21-25) mmol/L ABG Total CO2 (19-24) mmol/L ABG O2 Saturation (94-97) % BUN (7-17) mg/dL Creatinine (0.52-1.04) mg/dL Glucose (74-99) mg/dL POC Glucose (mg/dL) 148 H 138 H (75-99) mg/dL Calcium (8.4-10.2) mg/dL Phosphorus 6.1 H (2.5-4.5) mg/dL Total Bilirubin (0.2-1.3) mg/dL ALT (9-52) U/L Total Protein (6.3-8.2) g/dL Albumin (3.5-5.0) g/dL 11/04/17 11/04/17 11/05/17 Range/Units 18:23 23:54 04:12 RBC 2.60 L (3.80-5.40) m/uL Hgb 7.0 L* (11.4-16.0) gm/dL Hct 22.6 L (34.0-46.0) % MCHC 30.9 L (31.0-37.0) g/dL RDW 19.0 H (11.5-15.5) % Plt Count 93 L (150-450) k/uL ABG pO2 (83-108) mmHg ABG HCO3 (21-25) mmol/L ABG Total CO2 (19-24) mmol/L ABG O2 Saturation (94-97) % BUN (7-17) mg/dL Creatinine (0.52-1.04) mg/dL Glucose (74-99) mg/dL POC Glucose (mg/dL) 132 H 136 H (75-99) mg/dL Calcium (8.4-10.2) mg/dL Phosphorus (2.5-4.5) mg/dL Total Bilirubin (0.2-1.3) mg/dL ALT (9-52) U/L Total Protein (6.3-8.2) g/dL Albumin (3.5-5.0) g/dL 11/05/17 11/05/17 11/05/17 Range/Units 04:12 05:00 05:47 RBC (3.80-5.40) m/uL Hgb (11.4-16.0) gm/dL Hct (34.0-46.0) % MCHC (31.0-37.0) g/dL RDW (11.5-15.5) % Plt Count (150-450) k/uL ABG pO2 63 L (83-108) mmHg ABG HCO3 27 H (21-25) mmol/L ABG Total CO2 29 H (19-24) mmol/L ABG O2 Saturation 92.7 L (94-97) % BUN 52 H (7-17) mg/dL Creatinine 2.07 H (0.52-1.04) mg/dL Glucose 124 H (74-99) mg/dL POC Glucose (mg/dL) 137 H (75-99) mg/dL Calcium 8.1 L (8.4-10.2) mg/dL Phosphorus 6.6 H (2.5-4.5) mg/dL Total Bilirubin 0.1 L (0.2-1.3) mg/dL ALT 56 H (9-52) U/L Total Protein 4.9 L (6.3-8.2) g/dL Albumin 2.3 L (3.5-5.0) g/dL Assessment and Plan Plan: Assessment: 1. Acute kidney injury secondary to ATN secondary to cardiorenal syndrome and vancomycin toxicity. Creatinine up to 3.85 on October 30 - started on hemodialysis due to oliguria and hyperkalemia. Ultrasound from April 2017 was benign. Vancomycin discontinued. Cr 1.97 and non-oliguric now. 2. Volume overload. She is noted to have bilateral pleural effusions. 3. Diastolic CHF with mild pulmonary hypertension. 4. Anemia. iron replete. Component of chronic kidney disease. Maintained on Aranesp. 5. Insulin-dependent diabetes mellitus. 6. Staph epidermidis bacteremia. Possible contamination. 7. Metabolic acidosis secondary to acute kidney injury. Improved. 8. Obesity. 9. Hypertension with chronic kidney disease. Controlled. 10. Chronic kidney disease stage III with baseline creatinine in the range of 1.8-2.3. Etiology is diabetic kidney disease and cardiorenal syndrome. 11. Proteinuria. Likely due to diabetic kidney disease. Crivitz light chain elevated. 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 12. Hyperkalemia secondary to acute kidney injury, metabolic acidosis and use of Aldactone. Aldactone discontinued on October 29. Improved. 13. Hyperphosphatemia secondary to acute kidney injury. Improving. Plan: 2-3 L UF only treatment today due to significant edema and pleural effusions. Continue Lasix 80 mg IV 3 times daily. Avoid nephrotoxic agents. Continue to monitor renal function and urine output closely. Consider oncology evaluation regarding elevated kappa chains. Monitor hemoglobin closely. Consider blood transfusion if drops further.
[2017-11-05 12:18] LABS: Glucose,Whole Blood 155 mg/dL (75-99)
--- NOTE | 2017-11-05 13:06 | P.PN ---
Subjective Progress Note Date: 11/05/17 Principal diagnosis: Acute respiratory failure, pleural effusion RN is currently taking patient off sedation to see how she does. Dialysis to resume today due to significant fluid retention. Awaiting guardianship. Objective - Vital Signs Vital signs: Vital Signs Temp 98.3 F 11/05/17 12:00 Pulse 60 11/05/17 12:00 Resp 26 H 11/05/17 12:00 BP 125/57 11/05/17 12:00 Pulse Ox 94 L 11/05/17 12:00 Intake & Output 11/04/17 11/05/17 11/05/17 18:59 06:59 18:59 Intake Total 748 894.467 541.332 Output Total 1215 1125 300 Balance -467 -230.533 241.332 Weight 170.6 kg 170.6 kg Intake: IV 246 206 205 0.9 110 120 40 cefTAZidime 1 gm In 100 50 100 Sodium Chloride 0.9% 50 ml @ 100 mls/hr IVPB DAILY [facility] Rx#:[id number] cefTAZidime 1 gm In 50 Sodium Chloride 0.9% 50 ml @ 100 mls/hr IVPB Q12HR [facility] Rx#:[id number] pressure bag 36 36 15 Intake, IV Titration 100 182.467 176.332 Amount Propofol 1,000 mg In 100 182.467 176.332 Empty Bag 1 bag @ Titrate IV .Q0M [facility] Rx#: [id number] Tube Feeding 312 416 130 Other 90 90 30 Output: Urine 1215 1125 300 Other: Voiding Method Indwelling Catheter Indwelling Catheter Indwelling Catheter # Bowel Movements 1 2 ABP, PAP, CO, CI - Last Documented Arterial Blood Pressure 160/61 - Exam General: Ill appearing, moderate distress, morbidly obese, appears stated age Derm: warm, dry Head: atraumatic, normocephalic, symmetric Eyes: EOMI, no lid lag, anicteric sclera Mouth: no lip lesion, mucus membranes moist Cardiovascular: S1S2 reg, no murmur, positive posterior tibial pulse bilateral, Lungs: CTA bilateral, no rhonchi, no rales , no accessory muscle use, on vent Abdominal: soft, nontender to palpation, no guarding, no appreciable organomegaly Ext: no gross muscle atrophy, 3+ pitting edema, no contractures Neuro: CN II-XI grossly intact, moving upper hands independently, no movement of feet currently Psych: Lethargic, intermittently following commands, not agitated - Labs CBC & Chem 7: 11/05/17 04:12 11/05/17 04:12 Labs: Abnormal Lab Results - Last 24 Hours (Table) 11/04/17 11/04/17 11/04/17 Range/Units 04:28 18:15 18:23 RBC (3.80-5.40) m/uL Hgb (11.4-16.0) gm/dL Hct (34.0-46.0) % MCHC (31.0-37.0) g/dL RDW (11.5-15.5) % Plt Count (150-450) k/uL ABG pO2 (83-108) mmHg ABG HCO3 (21-25) mmol/L ABG Total CO2 (19-24) mmol/L ABG O2 Saturation (94-97) % BUN (7-17) mg/dL Creatinine (0.52-1.04) mg/dL Glucose (74-99) mg/dL POC Glucose (mg/dL) 138 H 132 H (75-99) mg/dL Calcium (8.4-10.2) mg/dL Phosphorus 6.1 H (2.5-4.5) mg/dL Total Bilirubin (0.2-1.3) mg/dL ALT (9-52) U/L Total Protein (6.3-8.2) g/dL Albumin (3.5-5.0) g/dL 11/04/17 11/05/17 11/05/17 Range/Units 23:54 04:12 04:12 RBC 2.60 L (3.80-5.40) m/uL Hgb 7.0 L* (11.4-16.0) gm/dL Hct 22.6 L (34.0-46.0) % MCHC 30.9 L (31.0-37.0) g/dL RDW 19.0 H (11.5-15.5) % Plt Count 93 L (150-450) k/uL ABG pO2 (83-108) mmHg ABG HCO3 (21-25) mmol/L ABG Total CO2 (19-24) mmol/L ABG O2 Saturation (94-97) % BUN 52 H (7-17) mg/dL Creatinine 2.07 H (0.52-1.04) mg/dL Glucose 124 H (74-99) mg/dL POC Glucose (mg/dL) 136 H (75-99) mg/dL Calcium 8.1 L (8.4-10.2) mg/dL Phosphorus 6.6 H (2.5-4.5) mg/dL Total Bilirubin 0.1 L (0.2-1.3) mg/dL ALT 56 H (9-52) U/L Total Protein 4.9 L (6.3-8.2) g/dL Albumin 2.3 L (3.5-5.0) g/dL 11/05/17 11/05/17 11/05/17 Range/Units 05:00 05:47 12:05 RBC (3.80-5.40) m/uL Hgb (11.4-16.0) gm/dL Hct (34.0-46.0) % MCHC (31.0-37.0) g/dL RDW (11.5-15.5) % Plt Count (150-450) k/uL ABG pO2 63 L (83-108) mmHg ABG HCO3 27 H (21-25) mmol/L ABG Total CO2 29 H (19-24) mmol/L ABG O2 Saturation 92.7 L (94-97) % BUN (7-17) mg/dL Creatinine (0.52-1.04) mg/dL Glucose (74-99) mg/dL POC Glucose (mg/dL) 137 H 155 H (75-99) mg/dL Calcium (8.4-10.2) mg/dL Phosphorus (2.5-4.5) mg/dL Total Bilirubin (0.2-1.3) mg/dL ALT (9-52) U/L Total Protein (6.3-8.2) g/dL Albumin (3.5-5.0) g/dL Assessment and Plan Plan: Acute on chronic hypoxic respiratory failure, mulitfactorial - CHF, R lung collapase s/p bronch, right-sided pleural effusion -Likely need chest tube placement for which guardianship has to be obtained. We may consider doing this if it becomes emergent prior to guardianship. -Pulmonayr following, vent management -Awaiting guardianship for possible trach and PEG placement -Due to suspected PE patient was treated with heparin drip initially but that was DC'd on 11/01 secondary to drop in hemoglobin. Patient was unable to tolerate VQ scan or CTA of the chest. Acute exacerbation of diastolic CHF with ejection fraction 50-55% -Continue with Lasix, increased to 80 mg 3 times a day. - BB resume - ARB on hold due to JOHN JOHN on CKD stage III, with vancomycin toxicity, currently receiving dialysis - HD to resume today, was on hold on 11/04 -Nephrology recommendations -Renally dose medications -Continue with Lasix as above Left Lower extremity wound growing out Klebsiella and Pseudomonas - ID recs - Off loading - Ceftazadime Anemia of chronic disease on top of iron deficiency anemia - continue aranesp - FE replacement - follow intermittent CBC Thrombocytopenia -Likely multifactorial -Follow CBC Diabetes mellitus type 2 -A1c 5.4 - SSI - Follow BS Hypertension,elevated - resume BB, continue to hold ARB, Hydralazine, and Norvasc - follow BP Atherosclerotic coronary artery disease -ASA, lipitor Social issues -Daughter's estranged from the patient, we have been unable to get ahold of the brother, currently looking for a public guardian to assist with getting an trach and PEG. DVT prophylaxis: heparin SC Discussed with: Nursing, Critical care, ID, CTS [employer]IST Anticipated discharge: unknown Anticipated discharge place: Likely will need LTAC A total of 65 minutes was spent on the care of this complex patient more than 50 % of the time was spent in counseling and care coordination.
[2017-11-05] MEDS: ASPIRIN 81 MG PO SCH (17:04)
[2017-11-05 19:14] LABS: Glucose,Whole Blood 131 mg/dL (75-99)
[2017-11-05] MEDS: ATORVASTATIN 10 MG TAB PO SCH (20:33)
[2017-11-05 23:42] LABS: Glucose,Whole Blood 138 mg/dL (75-99)
[2017-11-06] MEDS: PROPOFOL 1,000 MG in EMPTY BAG 1 BAG IV SCH ×2 (01:19→05:10)
[2017-11-06] MEDS: IPRATROPIUM-ALBUTEROL 3 ML NEB INHALATION SCH ×5 (04:00→20:09)
[2017-11-06 04:48] LABS: Anisocytosis Slight; HCT 24.6 % (34.0-46.0); HGB 7.4 gm/dL (11.4-16.0); Hypochromasia Moderate; MCH 25.9 pg (25.0-35.0); MCHC 30.1 g/dL (31.0-37.0); MCV 85.9 fL (80.0-100.0); Mean Platelet Volume 7.8; Platelet Count 102 k/uL (150-450); RBC 2.86 m/uL (3.80-5.40); WBC 9.4 k/uL (3.8-10.6)
[2017-11-06 05:03] LABS: Albumin 2.5 g/dL (3.5-5.0); Calcium 8.3 mg/dL (8.4-10.2); Magnesium 2.4 mg/dL (1.6-2.3); Phosphorus 6.9 mg/dL (2.5-4.5); Total Bilirubin 0.2 mg/dL (0.2-1.3); Total Protein 5.3 g/dL (6.3-8.2)
[2017-11-06 05:33] LABS: ABG Base Excess 2.4 mmol/L; ABG HCO3 27 mmol/L (21-25); ABG Oxygen Saturation 91.3 % (94-97); ABG PCO2 44 mmHg (35-45); ABG PO2 60 mmHg (83-108); ABG TCO2 29 mmol/L (19-24)
[2017-11-06 06:47] LABS: Glucose,Whole Blood 140 mg/dL (75-99)
[2017-11-06] MEDS: INSULIN ASPART 100 UNIT/ML 1 ML 10 ML VIAL SQ SCH ×3 (06:48→18:21)
--- NOTE | 2017-11-06 09:27 | P.PN ---
Subjective Progress Note Date: 11/06/17 Principal diagnosis: This is a 66-year-old female seen in consultation because of acute kidney injury from cardiorenal syndrome and vancomycin. She was started on dialysis and has had 3 dialysis treatment as of day before yesterday. Yesterday she did not have dialysis He remains intubated on 50% FiO2. She is sedated obtunded. No changes since yesterday. Off of dialysis she has good urine output creatinine stable at 2 mg. Urine output was 2145. She is known with chronic kidney disease stage III likely from diabetic nephropathy, diabetes, obesity, staph epidermidis bacteremia possible contaminant, Patient presented with chest pressure and is being followed by cardiology. Currently she admits to shortness of breath. Her chest x-ray on admission revealed pulmonary edema and a chest ultrasound done yesterday revealed bilateral pleural effusions. Objective - Vital Signs Vital signs: Vital Signs Temp 97.7 F 11/06/17 08:00 Pulse 64 11/06/17 08:22 Resp 20 11/06/17 08:07 BP 116/57 11/06/17 08:00 Pulse Ox 98 11/06/17 08:00 Intake & Output 11/05/17 11/06/17 11/06/17 18:59 06:59 18:59 Intake Total 784.332 956.042 13 Output Total 745 1405 180 Balance 39.332 -448.958 -167 Weight 170.6 kg 166.5 kg Intake: IV 296 219 13 0.9 110 130 10 cefTAZidime 1 gm In 100 Sodium Chloride 0.9% 50 ml @ 100 mls/hr IVPB DAILY [facility] Rx#:[id number] cefTAZidime 1 gm In 50 50 Sodium Chloride 0.9% 50 ml @ 100 mls/hr IVPB Q12HR [facility] Rx#:[id number] pressure bag 36 39 3 Intake, IV Titration 276.332 205.042 Amount Propofol 1,000 mg In 276.332 205.042 Empty Bag 1 bag @ Titrate IV .Q0M [facility] Rx#: [id number] Tube Feeding 182 442 Other 30 90 Output: Urine 745 1405 180 Other: Voiding Method Indwelling Catheter Indwelling Catheter Indwelling Catheter # Bowel Movements 2 ABP, PAP, CO, CI - Last Documented Arterial Blood Pressure 143/54 Patient remains intubated. HEENT exam no JVP neck is supple no facial asymmetry Heart sounds are unremarkable for any murmur or gallop Lungs are clear to auscultation fair air entry bilaterally Abdomen soft nontender nondistended Extremity exam reveals minimal edema Neurologically obtunded on the vent - Labs CBC & Chem 7: 11/06/17 04:15 11/06/17 04:15 Labs: Abnormal Lab Results - Last 24 Hours (Table) 11/05/17 11/05/17 11/05/17 Range/Units 12:05 19:12 23:38 RBC (3.80-5.40) m/uL Hgb (11.4-16.0) gm/dL Hct (34.0-46.0) % MCHC (31.0-37.0) g/dL RDW (11.5-15.5) % Plt Count (150-450) k/uL ABG pO2 (83-108) mmHg ABG HCO3 (21-25) mmol/L ABG Total CO2 (19-24) mmol/L ABG O2 Saturation (94-97) % Sodium (137-145) mmol/L BUN (7-17) mg/dL Creatinine (0.52-1.04) mg/dL Glucose (74-99) mg/dL POC Glucose (mg/dL) 155 H 131 H 138 H (75-99) mg/dL Calcium (8.4-10.2) mg/dL Phosphorus (2.5-4.5) mg/dL Magnesium (1.6-2.3) mg/dL ALT (9-52) U/L Total Protein (6.3-8.2) g/dL Albumin (3.5-5.0) g/dL 11/06/17 11/06/17 11/06/17 Range/Units 04:15 04:15 05:30 RBC 2.86 L (3.80-5.40) m/uL Hgb 7.4 L (11.4-16.0) gm/dL Hct 24.6 L (34.0-46.0) % MCHC 30.1 L (31.0-37.0) g/dL RDW 19.0 H (11.5-15.5) % Plt Count 102 L (150-450) k/uL ABG pO2 60 L (83-108) mmHg ABG HCO3 27 H (21-25) mmol/L ABG Total CO2 29 H (19-24) mmol/L ABG O2 Saturation 91.3 L (94-97) % Sodium 136 L (137-145) mmol/L BUN 58 H (7-17) mg/dL Creatinine 2.00 H (0.52-1.04) mg/dL Glucose 118 H (74-99) mg/dL POC Glucose (mg/dL) (75-99) mg/dL Calcium 8.3 L (8.4-10.2) mg/dL Phosphorus 6.9 H (2.5-4.5) mg/dL Magnesium 2.4 H (1.6-2.3) mg/dL ALT 54 H (9-52) U/L Total Protein 5.3 L (6.3-8.2) g/dL Albumin 2.5 L (3.5-5.0) g/dL 11/06/17 Range/Units 06:44 RBC (3.80-5.40) m/uL Hgb (11.4-16.0) gm/dL Hct (34.0-46.0) % MCHC (31.0-37.0) g/dL RDW (11.5-15.5) % Plt Count (150-450) k/uL ABG pO2 (83-108) mmHg ABG HCO3 (21-25) mmol/L ABG Total CO2 (19-24) mmol/L ABG O2 Saturation (94-97) % Sodium (137-145) mmol/L BUN (7-17) mg/dL Creatinine (0.52-1.04) mg/dL Glucose (74-99) mg/dL POC Glucose (mg/dL) 140 H (75-99) mg/dL Calcium (8.4-10.2) mg/dL Phosphorus (2.5-4.5) mg/dL Magnesium (1.6-2.3) mg/dL ALT (9-52) U/L Total Protein (6.3-8.2) g/dL Albumin (3.5-5.0) g/dL Assessment and Plan Assessment: Impression 1. ATN secondary to cardiorenal syndrome and vancomycin with dialysis dependency last dialysis e yesterday which was . Ultrafiltration for 3 L. Her urine output is 2115 but she is volume overloaded and trying to avoid further tracheostomy and hag and after discussion with Dr. Hansen, anesthesia associate and will proceed with further pure ultrafiltration this morning for 3-4 L if she can tolerate it. Her creatinine is stable at 2. Today her urine output is 2150. 2. Fluid overloaded with edema,on Lasix 80 daily 8 with good urine output 21 45 mL 3 . Chronic kidney disease stage III, etiology is diabetic nephropathy and nephrosclerosis. 4. Ventilator pendent respiratory failure, stable at 60% FiO2, worsening from 50% previously 5. Diabetes and diabetic nephropathy 6. Collapsed right lung, status post bronchoscopy 11/01/2017, chest shows improvement 7. Anemia hemoglobin 7.4 Recommendation. 1. Maintain Lasix dose 80 mg every 8 hours . 2. Will perform pure ultrafiltration 3 liters over 3 hours to improve her fluid status and help improve her ventilatory status 3. There are issues with lack of gaurdianship and the process for getting one has been initiated
[2017-11-06] MEDS: FUROSEMIDE 10 MG/ML 10 ML VIAL IV SCH ×2 (09:43→16:54)
[2017-11-06] MEDS: PANTOPRAZOLE 40 MG/10 ML VIAL IVP SCH (09:43)
[2017-11-06] MEDS: HEPARIN SODIUM,PORCINE 5,000 UNIT/ML 1 ML VIAL SQ SCH ×2 (09:44→16:55)
[2017-11-06] MEDS: METOPROLOL TARTRATE 12.5 MG TAB NG-TUBE SCH ×2 (09:45→20:34)
[2017-11-06] MEDS: CHLORHEXIDINE GLUCONATE 15 ML CUP MUCOUS MEM SCH ×2 (09:45→20:34)
[2017-11-06] MEDS: NYSTATIN 100,000 UNIT/GM POWD 15 GM TOPICAL SCH ×2 (09:46→20:35)
--- NOTE | 2017-11-06 10:22 | XR ---
EXAMINATION TYPE: XR chest 1V portable DATE OF EXAM: 11/06/2017 COMPARISON: November 05, 2017 HISTORY: SOB, Follow Up FINDINGS: Indwelling tubes and catheters are unchanged. Right perihilar and basilar infiltrates are unchanged. Bilateral pleural effusions right greater than left are stable. Stable appearance of the cardio-mediastinal structures at this time. IMPRESSION: 1. Stable portable chest. Clinical correlation and follow up until resolution is recommended.
--- NOTE | 2017-11-06 12:27 | P.PN ---
Subjective Progress Note Date: 11/06/17 Principal diagnosis: Acute respiratory failure, pleural effusion Patient is currently on sedation holiday, the patient has been on since 9 AM this morning. She is currently shaking her head with no in response to all questions. She is not really following commands. Unclear if she is comprehending questions or commands. Guardianship established. Objective - Vital Signs Vital signs: Vital Signs Temp 97.7 F 11/06/17 08:00 Pulse 63 11/06/17 12:00 Resp 24 11/06/17 12:00 BP 109/49 11/06/17 12:00 Pulse Ox 97 11/06/17 12:00 Intake & Output 11/05/17 11/06/17 11/06/17 18:59 06:59 18:59 Intake Total 784.332 956.042 89 Output Total 745 1405 680 Balance 39.332 -448.958 -591 Weight 170.6 kg 166.5 kg Intake: IV 296 219 89 0.9 110 130 30 cefTAZidime 1 gm In 100 Sodium Chloride 0.9% 50 ml @ 100 mls/hr IVPB DAILY [facility] Rx#:[id number] cefTAZidime 1 gm In 50 50 50 Sodium Chloride 0.9% 50 ml @ 100 mls/hr IVPB Q12HR [facility] Rx#:[id number] pressure bag 36 39 9 Intake, IV Titration 276.332 205.042 Amount Propofol 1,000 mg In 276.332 205.042 Empty Bag 1 bag @ Titrate IV .Q0M [facility] Rx#: [id number] Tube Feeding 182 442 Other 30 90 Output: Urine 745 1405 680 Other: Voiding Method Indwelling Catheter Indwelling Catheter Indwelling Catheter # Bowel Movements 2 ABP, PAP, CO, CI - Last Documented Arterial Blood Pressure 155/60 - Exam General: Ill appearing, moderate distress, morbidly obese, appears stated age Derm: warm, dry Head: atraumatic, normocephalic, symmetric Eyes: EOMI, no lid lag, anicteric sclera Mouth: no lip lesion, mucus membranes moist Cardiovascular: S1S2 reg, no murmur, positive posterior tibial pulse bilateral, Lungs: CTA bilateral, no rhonchi, no rales , no accessory muscle use, on vent Abdominal: soft, nontender to palpation, no guarding, no appreciable organomegaly Ext: no gross muscle atrophy, 3+ pitting edema, no contractures Neuro: CN II-XI grossly intact, moving upper hands independently, no movement of feet currently Psych: Lethargic, intermittently following commands, not agitated - Labs CBC & Chem 7: 11/06/17 04:15 11/06/17 04:15 Labs: Abnormal Lab Results - Last 24 Hours (Table) 11/05/17 11/05/17 11/06/17 Range/Units 19:12 23:38 04:15 RBC (3.80-5.40) m/uL Hgb (11.4-16.0) gm/dL Hct (34.0-46.0) % MCHC (31.0-37.0) g/dL RDW (11.5-15.5) % Plt Count (150-450) k/uL ABG pO2 (83-108) mmHg ABG HCO3 (21-25) mmol/L ABG Total CO2 (19-24) mmol/L ABG O2 Saturation (94-97) % Sodium 136 L (137-145) mmol/L BUN 58 H (7-17) mg/dL Creatinine 2.00 H (0.52-1.04) mg/dL Glucose 118 H (74-99) mg/dL POC Glucose (mg/dL) 131 H 138 H (75-99) mg/dL Calcium 8.3 L (8.4-10.2) mg/dL Phosphorus 6.9 H (2.5-4.5) mg/dL Magnesium 2.4 H (1.6-2.3) mg/dL ALT 54 H (9-52) U/L Total Protein 5.3 L (6.3-8.2) g/dL Albumin 2.5 L (3.5-5.0) g/dL 11/06/17 11/06/17 11/06/17 Range/Units 04:15 05:30 06:44 RBC 2.86 L (3.80-5.40) m/uL Hgb 7.4 L (11.4-16.0) gm/dL Hct 24.6 L (34.0-46.0) % MCHC 30.1 L (31.0-37.0) g/dL RDW 19.0 H (11.5-15.5) % Plt Count 102 L (150-450) k/uL ABG pO2 60 L (83-108) mmHg ABG HCO3 27 H (21-25) mmol/L ABG Total CO2 29 H (19-24) mmol/L ABG O2 Saturation 91.3 L (94-97) % Sodium (137-145) mmol/L BUN (7-17) mg/dL Creatinine (0.52-1.04) mg/dL Glucose (74-99) mg/dL POC Glucose (mg/dL) 140 H (75-99) mg/dL Calcium (8.4-10.2) mg/dL Phosphorus (2.5-4.5) mg/dL Magnesium (1.6-2.3) mg/dL ALT (9-52) U/L Total Protein (6.3-8.2) g/dL Albumin (3.5-5.0) g/dL Assessment and Plan Plan: Acute on chronic hypoxic respiratory failure, mulitfactorial - CHF, R lung collapase s/p bronch, right-sided pleural effusion -Likely need chest tube placement for which guardianship has to be obtained. We may consider doing this if it becomes emergent prior to guardianship. -Pulmonayr following, vent management -Guardianship established -Currently trying to wean off ventilator, if weaning failed patient will need trach and PEG placement -Due to suspected PE patient was treated with heparin drip initially but that was DC'd on 11/01 secondary to drop in hemoglobin. Patient was unable to tolerate VQ scan or CTA of the chest. Acute exacerbation of diastolic CHF with ejection fraction 50-55% -Continue with Lasix, increased to 80 mg 3 times a day. - BB resume - ARB on hold due to JOHN JOHN on CKD stage III, with vancomycin toxicity, currently receiving dialysis - HD to resume today, was on hold on 11/04 -Nephrology recommendations -Renally dose medications -Continue with Lasix as above Left Lower extremity wound growing out Klebsiella and Pseudomonas - ID recs - Off loading - Ceftazadime Anemia of chronic disease on top of iron deficiency anemia - continue aranesp - FE replacement - follow intermittent CBC Thrombocytopenia -Likely multifactorial -Follow CBC Diabetes mellitus type 2 -A1c 5.4 - SSI - Follow BS Hypertension,elevated - resume BB, continue to hold ARB, Hydralazine, and Norvasc - follow BP Atherosclerotic coronary artery disease -ASA, lipitor Social issues -Daughter's estranged from the patient, we have been unable to get ahold of the brother, currently looking for a public guardian to assist with getting an trach and PEG. DVT prophylaxis: heparin SC Discussed with: Nursing Anticipated discharge: unknown Anticipated discharge place: Likely will need LTAC A total of 35 minutes was spent on the care of this complex patient more than 50 % of the time was spent in counseling and care coordination.
[2017-11-06 12:31] LABS: Reticulocyte % 6.7 % (0.5-2.0)
--- NOTE | 2017-11-06 15:29 | P.PN ---
Subjective Progress Note Date: 11/06/17 65-year-old female patient is being seen in follow-up on 11/04/2017. This patient is morbidly obese with a BMI 33.9. She is in the intensive care is with acute on top of chronic history failure most likely on the basis of massive fluid overload. This morning, she is assist-control mode of ventilation at the rate of 20 with tidal volume of 400 and FiO2 of 50% with a PEEP of 10. Chest x-ray shows a right-sided pleural effusion. ET tube is in a good location. The blood gas showed a pH of 7.39 with a pCO2 of 46 and pO2 of 70 and this was on FiO2 of 50%. The patient is sedated with propofol at a dose of 50 g per KG per minute. She can arouse upon given a sedation holiday. In terms of her fluid overload, the patient has already received 2 sessions of hemodialysis 3 temporary dialysis catheter inserted in the right IJ. I discussed the case with nephrology today. We decided to hold off on dialysis as the patient is producing adequate amount of urine output while being on Lasix 83 g IV push every 12 hours. The patient is improving in terms of urine output and she is ready produced 1.9 L of urine output since morning. The creatinine from today's at 1.9 and the rest of the electrodes are all within normal limits. No significant acidosis. Bronchoscopy was done earlier and the patient did not reveal any significant microbial growth and the bronchioloalveolar lavage was also negative. Patient is on IV Fortaz and infectious disease on the case regarding the lower extremity wounds. On 11/05/2017 I'm seeing this patient for a follow-up. The patient is sedated and intubated on a mechanical ventilator. She is an assist-control mode of ventilation at the rate of 12 and FiO2 of 50% and a PEEP of 8 with a tidal volume of 400. She is was sedated with Diprivan and she is calm and comfortable. No significant orotracheal secretion. Chest x-ray showing a large right-sided pleural effusion and his tube is in a good location. The blood gas showed a pH of 7.4 with a pCO2 of 44 and pO2 of 63. We held off on dialysis yesterday as the patient is improving in terms of urine output. She is producing almost 50 mL an hour and she is on Lasix 80 mg IV push every 8 hours. The net fluid balance is -697 mL over the past 24 hours. We have contemplated PEG and trach. We will also contemplated chest tube insertion however we were not successful and obtaining consent. We're the process of getting a legal guardian at this point to undergo this procedures. Unfortunately nothing much can be done without any consent knowing that all of these procedures are not life saving or do not being done for immediate life- threatening conditions. The patient is not having any fever. No leukocytosis. Hemoglobin is at 7. Creatinine is down to 2. No pressors for now. Tolerating the tube feeds. Antibiotic coverage includes IV Fortaz and clindamycin. No other significant events over the past 24 hours for now. On 11/06/2017 I'm seeing this patient in the intensive care unit in a follow- up. We were able to finally get a public guardian for this patient. As mentioned she want to be a full code and based on that the public guardian is agreeable to any further intervention including a PEG and a trach. My intention is to give the patient is sedation holiday for a longest period of time and assess the patient's underlying mental status. I would like to see some response and alertness from this patient off sedation. At the same time would like to get this patient another session of ultrafiltration together as dry as possible in consideration for possible weaning/extubation. If this fails , the alternative will be long-term PEG and trach. On today's chest x-ray, the patient is small lung volumes and the patient continues to have a right-sided pleural effusion. She remains on assist control mode mode of ventilation. She is on a volume cycle with a tidal volume of 400 and FiO2 of 50% and a PEEP of 5. The blood gases from this morning showed a pH of 7.4 with a pCO2 of 44 and pO2 of 60 and this was on the 50% FiO2. The patient is on no pressors. The patient is afebrile. The patient is covered with broad-spectrum antibiotics. ID is on the case. Renal function continues to be impaired with a creatinine of 2.0. The patient underwent ultrafiltration yesterday with removal of 3 L and another session of ultrafiltration will be done today and this was coordinated with nephrology. She is afebrile. She is tolerating her tube feeds. She is producing good urine output while on IV Lasix. Otherwise no other significant events over the past 24 hours. Objective - Vital Signs Vital signs: Vital Signs Temp 97.8 F 11/06/17 13:00 Pulse 64 11/06/17 15:00 Resp 18 11/06/17 15:00 BP 108/58 11/06/17 15:00 Pulse Ox 98 11/06/17 15:00 Intake & Output 11/05/17 11/06/17 11/06/17 18:59 06:59 18:59 Intake Total 784.332 956.042 89 Output Total 745 1405 680 Balance 39.332 -448.958 -591 Weight 170.6 kg 166.5 kg Intake: IV 296 219 89 0.9 110 130 30 cefTAZidime 1 gm In 100 Sodium Chloride 0.9% 50 ml @ 100 mls/hr IVPB DAILY [facility] Rx#:[id number] cefTAZidime 1 gm In 50 50 50 Sodium Chloride 0.9% 50 ml @ 100 mls/hr IVPB Q12HR [facility] Rx#:[id number] pressure bag 36 39 9 Intake, IV Titration 276.332 205.042 Amount Propofol 1,000 mg In 276.332 205.042 Empty Bag 1 bag @ Titrate IV .Q0M [facility] Rx#: [id number] Tube Feeding 182 442 Other 30 90 Output: Urine 745 1405 680 Other: Voiding Method Indwelling Catheter Indwelling Catheter Indwelling Catheter # Bowel Movements 2 ABP, PAP, CO, CI - Last Documented Arterial Blood Pressure 150/56 - Exam No acute distress, sedated, with an orally placed endotracheal tube and NG tube. Sedated with Diprivan, comfortable 9 acute distress HEENT examination is grossly unremarkable. Mucous membranes are moist. Neck supple. Full range of motion. No adenopathy thyromegaly or neck vein distention. Cardiovascular examination reveals regular rhythm rate. S1-S2 normal. No S3 or S4. No discernible murmur noted. Heart sounds are very distant. Lungs reveal severely diminished breath sounds bilaterally, right greater than left. There are bilateral coarse rhonchi. Crackles are noted at both bases. No wheezes are appreciated. Very little air entry on the right side noted. Breath sounds are about what they were the day before. There is not been much change. Abdominal exam revealed normal bowel sounds. The abdomen was soft, non-tender, and without masses, organomegaly, or appreciable enlargement of the abdominal aorta. Extremities are intact. Chronic lower extremity edema is noted. She also is chronic venous stasis changes with hyperpigmentation. Heels are bandaged. Slightly improved edema of the lower extremities is noted. 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 Left heel measures at 2.4 x 3.5 x 0.2 cm right heel ulceration measuring at 2 x 2 x 0.2 total contact cast was removed Skin is without rash or lesion. See the lower extremity examination as mentioned above Neurologic examination reveals that the patient is arousable off the sedation. She can [place] to deep painful stimuli in all 4 extremities. Does not follow any commands at this point in time due to sedation. - Labs CBC & Chem 7: 11/06/17 04:15 11/06/17 04:15 Labs: Abnormal Lab Results - Last 24 Hours (Table) 11/05/17 11/05/17 11/06/17 Range/Units 19:12 23:38 04:15 RBC (3.80-5.40) m/uL Hgb (11.4-16.0) gm/dL Hct (34.0-46.0) % MCHC (31.0-37.0) g/dL RDW (11.5-15.5) % Plt Count (150-450) k/uL Retic Count (0.5-2.0) % ABG pO2 (83-108) mmHg ABG HCO3 (21-25) mmol/L ABG Total CO2 (19-24) mmol/L ABG O2 Saturation (94-97) % Sodium 136 L (137-145) mmol/L BUN 58 H (7-17) mg/dL Creatinine 2.00 H (0.52-1.04) mg/dL Glucose 118 H (74-99) mg/dL POC Glucose (mg/dL) 131 H 138 H (75-99) mg/dL Calcium 8.3 L (8.4-10.2) mg/dL Phosphorus 6.9 H (2.5-4.5) mg/dL Magnesium 2.4 H (1.6-2.3) mg/dL ALT 54 H (9-52) U/L Total Protein 5.3 L (6.3-8.2) g/dL Albumin 2.5 L (3.5-5.0) g/dL 11/06/17 11/06/17 11/06/17 Range/Units 04:15 04:15 05:30 RBC 2.86 L (3.80-5.40) m/uL Hgb 7.4 L (11.4-16.0) gm/dL Hct 24.6 L (34.0-46.0) % MCHC 30.1 L (31.0-37.0) g/dL RDW 19.0 H (11.5-15.5) % Plt Count 102 L (150-450) k/uL Retic Count 6.7 H (0.5-2.0) % ABG pO2 60 L (83-108) mmHg ABG HCO3 27 H (21-25) mmol/L ABG Total CO2 29 H (19-24) mmol/L ABG O2 Saturation 91.3 L (94-97) % Sodium (137-145) mmol/L BUN (7-17) mg/dL Creatinine (0.52-1.04) mg/dL Glucose (74-99) mg/dL POC Glucose (mg/dL) (75-99) mg/dL Calcium (8.4-10.2) mg/dL Phosphorus (2.5-4.5) mg/dL Magnesium (1.6-2.3) mg/dL ALT (9-52) U/L Total Protein (6.3-8.2) g/dL Albumin (3.5-5.0) g/dL 11/06/17 Range/Units 06:44 RBC (3.80-5.40) m/uL Hgb (11.4-16.0) gm/dL Hct (34.0-46.0) % MCHC (31.0-37.0) g/dL RDW (11.5-15.5) % Plt Count (150-450) k/uL Retic Count (0.5-2.0) % ABG pO2 (83-108) mmHg ABG HCO3 (21-25) mmol/L ABG Total CO2 (19-24) mmol/L ABG O2 Saturation (94-97) % Sodium (137-145) mmol/L BUN (7-17) mg/dL Creatinine (0.52-1.04) mg/dL Glucose (74-99) mg/dL POC Glucose (mg/dL) 140 H (75-99) mg/dL Calcium (8.4-10.2) mg/dL Phosphorus (2.5-4.5) mg/dL Magnesium (1.6-2.3) mg/dL ALT (9-52) U/L Total Protein (6.3-8.2) g/dL Albumin (3.5-5.0) g/dL Assessment and Plan Plan: Assessment 1 acute on top of chronic hypoxic history failure likely on the basis of CHF/ fluid overload and development of a large right-sided pleural effusion. The patient has been intubated on the mechanical ventilator since 10/31/2017. The patient is currently being diuresed. At the same time the patient is undergoing dialysis/ultrafiltration. A total of 3 L of fluid was removed yesterday and our goal for today still remove another 3 L. Following that we' ll check her readiness to wean and assess her weaning parameters and proceed accordingly. I would like to at least give this patient a chance of weaning and possible extubation if possible. If not, the alternative will be PEG and trach. I was able to obtain legal guardianship on this patient and the guardian was agreeable to give consent for these procedures. 2 right lung collapse, post bronchoscopy on 11/01/2017 with a bronchioloalveolar lavage that showed no microbial growth and the patient on empiric antibiotic coverage with IV cefepime 3 morbid obesity with a BMI 53.9 4 acute on top of a chronic stage III kidney failure, currently on hemodialysis and ultrafiltration 5 anemia of chronic disease secondary to chronic renal failure, hemoglobin is stable at 7.4 6 diabetes mellitus 7 nonhealing ulcers in the lower extremities bilaterally 8 hypertension 9 previous history of cellulitis of the lower eczematous secondary to pseudomonas and klebsiella Plan Give the patient sedation holiday. This will be a slow recovery as the patient has received quite a bit of sedation over the past several days. Continue hemodialysis ultrafiltration with a goal of removal of 3 L of fluid. Optimize the volume status. Obtain a set of weaning parameters once the patient is fully awake and will proceed accordingly. Continued IV Lasix. Consent was obtained for procedures such as chest tube insertion, tracheostomy and PEG tube insertion if we are going to go that route in the future. I had a lengthy discussion with the legal guardian. We total understand that the patient's baseline performance and functional status has been poor. We'll going to work with the legal guardian to provide care for this patient. There is a critically care evaluation, more than 30 minutes. Time with Patient: Greater than 30
[2017-11-06 16:38] LABS: Glucose,Whole Blood 144 mg/dL (75-99)
[2017-11-06 16:44] LABS: Glucose,Whole Blood 143 mg/dL (75-99)
[2017-11-06] MEDS: ASPIRIN 81 MG PO SCH (16:56)
[2017-11-06 17:16] LABS: ABG Base Excess 2.3 mmol/L; ABG HCO3 28 mmol/L (21-25); ABG Oxygen Saturation 92.3 % (94-97); ABG PCO2 48 mmHg (35-45); ABG PH 7.37 (7.35-7.45); ABG PO2 66 mmHg (83-108); ABG TCO2 29 mmol/L (19-24)
[2017-11-06 17:46] LABS: Iron Saturation 10.67 (12.00-45.00)
[2017-11-06 18:19] LABS: Glucose,Whole Blood 139 mg/dL (75-99)
[2017-11-06] MEDS: ATORVASTATIN 10 MG TAB PO SCH (20:34)
--- NOTE | 2017-11-06 22:03 | P.CONS ---
History of Present Illness - Reason for Consult Consult date: 11/06/17 Increased [place] light chain Requesting physician: Marcio Pedersen - Chief Complaint pulmonary edema - History of Present Illness We have been asked to see pt due to an elevated kappa light chain which was evaluated due to renal failure. Pt is admitted to intensive care with respiratory failure and mechanically ventilated, acute on chronic renal failure requiring dialysis and massive fluid overload. Pt is being seen by multiple Specialties, on antibiotics due to lower extremity wounds, she has had a bronchoscopy. Ther is no known history of myeloma or other malignancy. Review of Systems ROS unobtainable: due to endotracheal tube Past Medical History Past Medical History: Heart Failure, Diabetes Mellitus, Hyperlipidemia, Hypertension, Osteoarthritis (OA), Renal Disease, Skin Disorder Additional Past Medical History / Comment(s): Cellutitus right leg, ringing in bilateral ears. 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 As noted was a smoker in the past. She doesn't have a history of stiff and alcohol use. 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 No international travel. no experience. Has her pet cat, [place] Smoking Status: Former smoker - Past Family History Father Additional Family Medical History / Comment(s): ALCOHOLIC Mother Family Medical History: Cancer, CVA/TIA, Diabetes Mellitus, Myocardial Infarction ([place]) Additional Family Medical History / Comment(s): COLON Brother(s) Additional Family Medical History / Comment(s): DRUG DEPENDENCY Medications and Allergies Home Medications Medication Instructions Recorded Confirmed Type Acetaminophen [Tylenol] 325 mg PO Q6HR PRN 09/23/17 10/25/17 History Aspirin EC [Ecotrin Low Dose] 81 mg PO DAILY@1700 09/23/17 10/25/17 History Bisacodyl [Dulcolax] 10 mg RECTAL DAILY PRN 09/23/17 10/25/17 History Ergocalciferol [Vitamin D2] 50,000 unit PO TH 09/23/17 10/25/17 History Insulin Aspart [NovoLOG] See Protocol SQ AC-TID@07,11,1730 09/23/17 10/25/17 History Insulin Glargine,Hum.rec.anlog 44 unit SQ DAILY@0709/23/17 10/25/17 History [Basaglar Kwikpen U-100] Lovastatin [Mevacor] 40 mg PO HS 09/23/17 10/25/17 History Magnesium Hydroxide [Milk of 30 ml PO DIRECTED PRN 09/23/17 10/25/17 History Magnesia Concentrate] Mineral Oil [Fleet Mineral Oil] 133 ml RECTAL ONCE PRN 09/23/17 10/25/17 History Omeprazole [PriLOSEC] 20 mg PO DAILY 09/23/17 10/25/17 History amLODIPine [Norvasc] 10 mg PO DAILY 09/23/17 10/25/17 History traMADol HCl [Ultram] 50 mg PO Q6HR PRN 09/23/17 10/25/17 History Furosemide [Lasix] 40 mg PO BID@06,14 10/15/17 10/25/17 History Amino Acids/Protein Hydrolys 30 ml PO DAILY@1100 10/25/17 10/25/17 History [Pro-Stat Supplement] Losartan [Cozaar] 25 mg PO DAILY 10/25/17 10/25/17 History Metoprolol Tartrate [Lopressor] 50 mg PO BID 10/25/17 10/25/17 History Nystatin 100,000 Unit/gm Powd 1 applic TOPICAL BID 10/25/17 10/25/17 History [Mycostatin Powder] Spironolactone [Aldactone] 25 mg PO DAILY 10/25/17 10/25/17 History hydrALAZINE HCL [Apresoline] 25 mg PO BID@14,21 10/25/17 10/25/17 History hydrALAZINE HCL [Apresoline] 75 mg PO DAILY@0800 10/25/17 10/25/17 History Allergies Allergy/AdvReac Type Severity Reaction Status Date / Time Penicillins Allergy Severe Rash/Hives Verified 10/25/17 14:32 simvastatin [From Zocor] AdvReac Severe Unknown Verified 10/25/17 14:32 pregabalin [From Lyrica] AdvReac Unknown Verified 10/25/17 14:32 tide laundry detergent Allergy Itching Uncoded 10/21/17 10:03 Physical Exam Vitals: Vital Signs Temp Pulse Resp BP Pulse Ox 11/06/17 20:23 65 11/06/17 20:11 65 11/06/17 19:00 70 18 140/61 96 11/06/17 18:30 65 21 140/61 95 11/06/17 18:00 66 31 H 140/61 95 11/06/17 17:30 69 26 H 140/61 97 11/06/17 17:00 70 27 H 96 11/06/17 16:30 68 20 121/53 97 11/06/17 16:00 96.7 F L 64 19 121/53 98 11/06/17 15:30 63 22 119/58 98 11/06/17 15:00 64 18 108/58 98 11/06/17 14:30 66 27 H 99/59 98 11/06/17 14:00 68 22 131/64 97 11/06/17 13:30 64 19 132/55 98 11/06/17 13:00 97.8 F 65 19 124/54 96 11/06/17 12:30 64 22 116/52 98 11/06/17 12:00 63 24 109/49 97 11/06/17 11:40 61 11/06/17 11:30 63 29 H 120/57 97 11/06/17 11:29 63 11/06/17 11:00 61 21 114/68 97 11/06/17 10:30 65 20 128/64 97 11/06/17 10:00 70 28 H 131/52 96 11/06/17 09:30 66 20 132/61 96 11/06/17 09:00 64 24 134/49 97 11/06/17 08:30 66 22 125/57 98 11/06/17 08:22 64 11/06/17 08:09 64 11/06/17 08:07 20 11/06/17 08:00 97.7 F 62 20 116/57 98 11/06/17 07:30 62 23 110/50 97 11/06/17 07:00 61 24 134/58 98 11/06/17 06:30 63 21 132/54 96 11/06/17 06:00 65 24 127/55 96 11/06/17 05:30 67 22 121/55 95 11/06/17 05:00 64 27 H 128/66 94 L 11/06/17 04:30 64 27 H 123/53 95 11/06/17 04:16 61 11/06/17 04:10 61 11/06/17 04:00 97.6 F 61 22 131/57 95 11/06/17 03:30 60 21 130/59 94 L 11/06/17 03:00 62 21 134/52 94 L 11/06/17 02:30 63 23 130/53 92 L 11/06/17 02:00 60 23 114/50 93 L 11/06/17 01:30 64 25 H 127/51 92 L 11/06/17 01:00 62 23 125/54 95 11/06/17 00:33 61 11/06/17 00:30 62 20 134/59 97 11/06/17 00:00 97.8 F 62 22 125/56 95 11/05/17 23:59 61 11/05/17 23:30 60 23 126/57 95 11/05/17 23:00 59 L 20 123/53 94 L 11/05/17 22:30 59 L 24 135/55 95 11/05/17 22:11 59 L 20 128/56 94 L 11/05/17 22:00 59 L 22 128/56 94 L 11/05/17 21:30 58 L 25 H 127/60 94 L 11/05/17 21:00 62 25 H 131/54 95 Intake and Output 11/06/17 11/06/17 11/06/17 06:59 14:59 22:59 Intake Total 668.042 128 91 Output Total 1065 830 390 Balance -396.955 -706 -299 Intake: IV 117 128 65 0.9 90 60 50 cefTAZidime 1 gm In 50 Sodium Chloride 0.9% 50 ml @ 100 mls/hr IVPB Q12HR [facility] Rx#:[id number] pressure bag 27 18 15 Intake, IV Titration 205.042 Amount Propofol 1,000 mg In .042 Empty Bag 1 bag @ Titrate IV .Q0M [facility] Rx#: [id number] Tube Feeding 286 26 Other 60 Output: Urine 1065 830 390 Other: Voiding Method Indwelling Catheter Indwelling Catheter Indwelling Catheter # Bowel Movements 2 Weight 166.5 kg ABP, PAP, CO, CI - Last 8 Hours Arterial Blood Pressure 169/61 Arterial Blood Pressure 158/60 Arterial Blood Pressure 154/58 Arterial Blood Pressure 161/61 Arterial Blood Pressure 87/87 Arterial Blood Pressure 170/65 Arterial Blood Pressure 147/57 Arterial Blood Pressure 149/57 Arterial Blood Pressure 150/56 Arterial Blood Pressure 174/66 Arterial Blood Pressure 160/62 Arterial Blood Pressure 158/61 Arterial Blood Pressure 157/60 - Constitutional General appearance: morbidly obese - EENT Eyes: anicteric sclerae - Neck Neck: no lymphadenopathy - Respiratory Respiratory: bilateral: diminished - Cardiovascular Heart sounds: normal: S1, S2 - Gastrointestinal General gastrointestinal: no absent bowel sounds, no decreased bowel sounds, no distended, no hepatomegaly, no hyperactive bowel sounds, normal bowel sounds, no organomegaly, no rigid, no scaphoid, soft, no splenomegaly, no umbilical hernia, no ventral hernia - Psychiatric Psychiatric: no A&O x's 3, no appropriate affect, no intact judgment & insight Results CBC & Chem 7: 11/06/17 04:15 11/06/17 04:15 Labs: Abnormal Lab Results - Last 24 Hours (Table) 11/05/17 11/06/17 11/06/17 Range/Units 23:38 04:15 04:15 RBC 2.86 L (3.80-5.40) m/uL Hgb 7.4 L (11.4-16.0) gm/dL Hct 24.6 L (34.0-46.0) % MCHC 30.1 L (31.0-37.0) g/dL RDW 19.0 H (11.5-15.5) % Plt Count 102 L (150-450) k/uL Retic Count (0.5-2.0) % ABG pCO2 (35-45) mmHg ABG pO2 (83-108) mmHg ABG HCO3 (21-25) mmol/L ABG Total CO2 (19-24) mmol/L ABG O2 Saturation (94-97) % Sodium 136 L (137-145) mmol/L BUN 58 H (7-17) mg/dL Creatinine 2.00 H (0.52-1.04) mg/dL Glucose 118 H (74-99) mg/dL POC Glucose (mg/dL) 138 H (75-99) mg/dL Calcium 8.3 L (8.4-10.2) mg/dL Phosphorus 6.9 H (2.5-4.5) mg/dL Magnesium 2.4 H (1.6-2.3) mg/dL ALT 54 H (9-52) U/L Total Protein 5.3 L (6.3-8.2) g/dL Albumin 2.5 L (3.5-5.0) g/dL 11/06/17 11/06/17 11/06/17 Range/Units 04:15 05:30 06:44 RBC (3.80-5.40) m/uL Hgb (11.4-16.0) gm/dL Hct (34.0-46.0) % MCHC (31.0-37.0) g/dL RDW (11.5-15.5) % Plt Count (150-450) k/uL Retic Count 6.7 H (0.5-2.0) % ABG pCO2 (35-45) mmHg ABG pO2 60 L (83-108) mmHg ABG HCO3 27 H (21-25) mmol/L ABG Total CO2 29 H (19-24) mmol/L ABG O2 Saturation 91.3 L (94-97) % Sodium (137-145) mmol/L BUN (7-17) mg/dL Creatinine (0.52-1.04) mg/dL Glucose (74-99) mg/dL POC Glucose (mg/dL) 140 H (75-99) mg/dL Calcium (8.4-10.2) mg/dL Phosphorus (2.5-4.5) mg/dL Magnesium (1.6-2.3) mg/dL ALT (9-52) U/L Total Protein (6.3-8.2) g/dL Albumin (3.5-5.0) g/dL 11/06/17 11/06/17 11/06/17 Range/Units 11:49 13:36 17:09 RBC (3.80-5.40) m/uL Hgb (11.4-16.0) gm/dL Hct (34.0-46.0) % MCHC (31.0-37.0) g/dL RDW (11.5-15.5) % Plt Count (150-450) k/uL Retic Count (0.5-2.0) % ABG pCO2 48 H (35-45) mmHg ABG pO2 66 L (83-108) mmHg ABG HCO3 28 H (21-25) mmol/L ABG Total CO2 29 H (19-24) mmol/L ABG O2 Saturation 92.3 L (94-97) % Sodium (137-145) mmol/L BUN (7-17) mg/dL Creatinine (0.52-1.04) mg/dL Glucose (74-99) mg/dL POC Glucose (mg/dL) 143 H 144 H (75-99) mg/dL Calcium (8.4-10.2) mg/dL Phosphorus (2.5-4.5) mg/dL Magnesium (1.6-2.3) mg/dL ALT (9-52) U/L Total Protein (6.3-8.2) g/dL Albumin (3.5-5.0) g/dL 11/06/17 Range/Units 18:16 RBC (3.80-5.40) m/uL Hgb (11.4-16.0) gm/dL Hct (34.0-46.0) % MCHC (31.0-37.0) g/dL RDW (11.5-15.5) % Plt Count (150-450) k/uL Retic Count (0.5-2.0) % ABG pCO2 (35-45) mmHg ABG pO2 (83-108) mmHg ABG HCO3 (21-25) mmol/L ABG Total CO2 (19-24) mmol/L ABG O2 Saturation (94-97) % Sodium (137-145) mmol/L BUN (7-17) mg/dL Creatinine (0.52-1.04) mg/dL Glucose (74-99) mg/dL POC Glucose (mg/dL) 139 H (75-99) mg/dL Calcium (8.4-10.2) mg/dL Phosphorus (2.5-4.5) mg/dL Magnesium (1.6-2.3) mg/dL ALT (9-52) U/L Total Protein (6.3-8.2) g/dL Albumin (3.5-5.0) g/dL Assessment and Plan (1) Abnormal laboratory test result Narrative/Plan: Lab review shows an IgG kappa light chain paraprotein elevation, immunofixation is suggestive of acute phase reactant. In patients severely acutely ill condition further work up for myeloma at this time-labs, bone scan-is not prudent as she is intubated and in an acute inflammatory state because of multiple complex medical conditions. Dr. Mgcovern did discussed case with Nephrology. Labs will be rechecked as pt conditions improves and further work up as necessary. Continue current acute management of pt per Intensivists. We will continue to follow pt labs and order further work up as indicated. Current Visit: Yes Status: Acute Priority: Medium Code(s): R89.9 - UNSP ABNORMAL FINDING IN SPECIMENS FROM OTH ORG/TISS SNOMED Code(s): 566926067
[2017-11-07 00:09] LABS: Glucose,Whole Blood 119 mg/dL (75-99)
[2017-11-07] MEDS: IPRATROPIUM-ALBUTEROL 3 ML NEB INHALATION SCH ×6 (00:10→19:32)
[2017-11-07] MEDS: FUROSEMIDE 10 MG/ML 10 ML VIAL IV SCH ×4 (01:19→23:57)
[2017-11-07] MEDS: INSULIN ASPART 100 UNIT/ML 1 ML 10 ML VIAL SQ SCH ×5 (01:19→23:57)
[2017-11-07] MEDS: HEPARIN SODIUM,PORCINE 5,000 UNIT/ML 1 ML VIAL SQ SCH ×4 (01:19→23:57)
[2017-11-07 04:19] LABS: Anisocytosis Slight; HCT 25.8 % (34.0-46.0); HGB 7.9 gm/dL (11.4-16.0); Hypochromasia Marked; MCH 26.2 pg (25.0-35.0); MCHC 30.4 g/dL (31.0-37.0); MCV 86.2 fL (80.0-100.0); Mean Platelet Volume 9.3; Platelet Count 128 k/uL (150-450); RDW 18.7 % (11.5-15.5); WBC 10.4 k/uL (3.8-10.6)
[2017-11-07] MEDS: PROPOFOL 1,000 MG in EMPTY BAG 1 BAG IV SCH ×3 (04:26→22:31)
[2017-11-07 04:51] LABS: Albumin 2.6 g/dL (3.5-5.0); Calcium 8.5 mg/dL (8.4-10.2); Magnesium 2.3 mg/dL (1.6-2.3); Phosphorus 6.8 mg/dL (2.5-4.5); Potassium 3.8 mmol/L (3.5-5.1); Total Bilirubin 0.2 mg/dL (0.2-1.3); Total Protein 5.5 g/dL (6.3-8.2)
[2017-11-07 05:04] LABS: ABG Base Excess 2.2 mmol/L; ABG HCO3 27 mmol/L (21-25); ABG Oxygen Saturation 97.1 % (94-97); ABG PCO2 46 mmHg (35-45); ABG PH 7.38 (7.35-7.45); ABG PO2 85 mmHg (83-108); ABG TCO2 29 mmol/L (19-24)
[2017-11-07 06:27] LABS: Glucose,Whole Blood 144 mg/dL (75-99)
[2017-11-07] MEDS: CHLORHEXIDINE GLUCONATE 15 ML CUP MUCOUS MEM SCH ×2 (08:04→21:00)
[2017-11-07] MEDS: METOPROLOL TARTRATE 12.5 MG TAB NG-TUBE SCH ×2 (08:05→21:00)
[2017-11-07] MEDS: PANTOPRAZOLE 40 MG/10 ML VIAL IVP SCH (08:05)
[2017-11-07] MEDS: ERGOCALCIFEROL 50,000 UNIT CAP PO SCH (08:06)
[2017-11-07] MEDS: NYSTATIN 100,000 UNIT/GM POWD 15 GM TOPICAL SCH ×2 (08:07→21:00)
--- NOTE | 2017-11-07 09:30 | P.PN ---
Subjective Progress Note Date: 11/07/17 Principal diagnosis: This is a 66-year-old female seen in consultation because of acute kidney injury from cardiorenal syndrome and vancomycin. She was started on dialysis and has had multiple dialysis now for the last 1 week. Yesterday she had pure ultrafiltration for 3 L and tolerated well. She remains on the vent on 60% FiO2. She is off of the Dirivan since about 8 in the morning about an hour. She continues to be stable hemodynamically. She remains very obtunded. He remains intubated on 50% FiO2. She is sedated obtunded. No changes since yesterday. Urine output is 28 40 mL for the last 24 hours. A chest x-ray has not been done this morning She is known with chronic kidney disease stage III likely from diabetic nephropathy, diabetes, obesity, staph epidermidis bacteremia possible contaminant, Patient presented with chest pressure and is being followed by cardiology. Currently she admits to shortness of breath. Her chest x-ray on admission revealed pulmonary edema and a chest ultrasound revealed bilateral pleural effusions. Objective - Vital Signs Vital signs: Vital Signs Temp 98.1 F 11/07/17 08:00 Pulse 76 11/07/17 08:00 Resp 20 11/07/17 08:00 BP 125/50 11/07/17 08:00 Pulse Ox 98 11/07/17 08:00 Intake & Output 11/06/17 11/07/17 11/07/17 18:59 06:59 18:59 Intake Total 293 686 164.598 Output Total 1220 1620 110 Balance -927 -934 54.598 Weight 161.5 kg Intake: IV 193 206 13 0.9 110 120 10 cefTAZidime 1 gm In 50 50 Sodium Chloride 0.9% 50 ml @ 100 mls/hr IVPB Q12HR [facility] Rx#:[id number] pressure bag 33 36 3 Intake, IV Titration 100 69.598 Amount Propofol 1,000 mg In 100 69.598 Empty Bag 1 bag @ Titrate IV .Q0M [facility] Rx#: [id number] Tube Feeding 390 52 Other 90 30 Output: Urine 1220 1620 110 Other: Voiding Method Indwelling Catheter Indwelling Catheter Indwelling Catheter ABP, PAP, CO, CI - Last Documented Arterial Blood Pressure 157/50 On examination she is obtunded, came off of the sedation just an hour ago. HEENT exam no JVP neck is supple no facial asymmetry pupils are equal Lungs are clear to auscultation fair air entry bilaterally on the vent Heart sounds are unremarkable no murmur rub gallop normal sinus rhythm. Abdomen is soft nontender bowel sounds are diminished Extremity exam was 2+ edema Neurologically obtunded. - Labs CBC & Chem 7: 11/07/17 04:00 11/07/17 04:00 Labs: Abnormal Lab Results - Last 24 Hours (Table) 11/06/17 11/06/17 11/06/17 Range/Units 04:15 04:15 04:15 RBC (3.80-5.40) m/uL Hgb (11.4-16.0) gm/dL Hct (34.0-46.0) % MCHC (31.0-37.0) g/dL RDW (11.5-15.5) % Plt Count (150-450) k/uL Retic Count 6.7 H (0.5-2.0) % ABG pCO2 (35-45) mmHg ABG pO2 (83-108) mmHg ABG HCO3 (21-25) mmol/L ABG Total CO2 (19-24) mmol/L ABG O2 Saturation (94-97) % Sodium (137-145) mmol/L BUN (7-17) mg/dL Creatinine (0.52-1.04) mg/dL Glucose (74-99) mg/dL POC Glucose (mg/dL) (75-99) mg/dL Phosphorus (2.5-4.5) mg/dL Iron 27 L (50-170) ug/dL Iron Saturation 10.67 L (12.00-45.00) Total Protein (6.3-8.2) g/dL Albumin (3.5-5.0) g/dL RBC Folate 1,058 H (280 - 791) ng/mL 11/06/17 11/06/17 11/06/17 Range/Units 11:49 13:36 17:09 RBC (3.80-5.40) m/uL Hgb (11.4-16.0) gm/dL Hct (34.0-46.0) % MCHC (31.0-37.0) g/dL RDW (11.5-15.5) % Plt Count (150-450) k/uL Retic Count (0.5-2.0) % ABG pCO2 48 H (35-45) mmHg ABG pO2 66 L (83-108) mmHg ABG HCO3 28 H (21-25) mmol/L ABG Total CO2 29 H (19-24) mmol/L ABG O2 Saturation 92.3 L (94-97) % Sodium (137-145) mmol/L BUN (7-17) mg/dL Creatinine (0.52-1.04) mg/dL Glucose (74-99) mg/dL POC Glucose (mg/dL) 143 H 144 H (75-99) mg/dL Phosphorus (2.5-4.5) mg/dL Iron (50-170) ug/dL Iron Saturation (12.00-45.00) Total Protein (6.3-8.2) g/dL Albumin (3.5-5.0) g/dL RBC Folate (280 - 791) ng/mL 11/06/17 11/07/17 11/07/17 Range/Units 18:16 00:07 04:00 RBC (3.80-5.40) m/uL Hgb (11.4-16.0) gm/dL Hct (34.0-46.0) % MCHC (31.0-37.0) g/dL RDW (11.5-15.5) % Plt Count (150-450) k/uL Retic Count (0.5-2.0) % ABG pCO2 (35-45) mmHg ABG pO2 (83-108) mmHg ABG HCO3 (21-25) mmol/L ABG Total CO2 (19-24) mmol/L ABG O2 Saturation (94-97) % Sodium 136 L (137-145) mmol/L BUN 61 H (7-17) mg/dL Creatinine 2.10 H (0.52-1.04) mg/dL Glucose 133 H (74-99) mg/dL POC Glucose (mg/dL) 139 H 119 H (75-99) mg/dL Phosphorus 6.8 H (2.5-4.5) mg/dL Iron (50-170) ug/dL Iron Saturation (12.00-45.00) Total Protein 5.5 L (6.3-8.2) g/dL Albumin 2.6 L (3.5-5.0) g/dL RBC Folate (280 - 791) ng/mL 11/07/17 11/07/17 11/07/17 Range/Units 04:00 05:00 06:25 RBC 3.00 L (3.80-5.40) m/uL Hgb 7.9 L (11.4-16.0) gm/dL Hct 25.8 L (34.0-46.0) % MCHC 30.4 L (31.0-37.0) g/dL RDW 18.7 H (11.5-15.5) % Plt Count 128 L (150-450) k/uL Retic Count (0.5-2.0) % ABG pCO2 46 H (35-45) mmHg ABG pO2 (83-108) mmHg ABG HCO3 27 H (21-25) mmol/L ABG Total CO2 29 H (19-24) mmol/L ABG O2 Saturation 97.1 H (94-97) % Sodium (137-145) mmol/L BUN (7-17) mg/dL Creatinine (0.52-1.04) mg/dL Glucose (74-99) mg/dL POC Glucose (mg/dL) 144 H (75-99) mg/dL Phosphorus (2.5-4.5) mg/dL Iron (50-170) ug/dL Iron Saturation (12.00-45.00) Total Protein (6.3-8.2) g/dL Albumin (3.5-5.0) g/dL RBC Folate (280 - 791) ng/mL Assessment and Plan Assessment: Impression 1. ATN secondary to cardiorenal syndrome and vancomycin with dialysis dependency last dialysis yesterday which was pure Ultrafiltration for 3 L. Her urine output is 2840, remains somewhat fluid overloaded with edema, on the vent on 6% FiO2. To improve her chances of getting weaned off of the ventilator , will proceed with further pure ultrafiltration this morning for 3-4 L if she can tolerate it. Her creatinine is stable at 2. 2. Fluid overloaded with edema,on Lasix 80 milligrams every 8 with good urine output 2845 3 . Chronic kidney disease stage III, etiology is diabetic nephropathy and nephrosclerosis. 4. Ventilator pendent respiratory failure, stable at 60% FiO2, worsening from 50% previously 5. Diabetes and diabetic nephropathy 6. Collapsed right lung, status post bronchoscopy 11/01/2017, chest shows improvement 7. Anemia hemoglobin 7.9 Recommendation. 1. Maintain Lasix dose 80 mg every 8 hours . 2. Will perform pure ultrafiltration 3 liters over 3 hours to improve her fluid status and help improve her ventilatory status 3. There are issues with lack of gaurdianship and the process for getting one has been initiated
--- NOTE | 2017-11-07 10:21 | XR ---
EXAMINATION TYPE: XR chest 1V portable DATE OF EXAM: 11/07/2017 COMPARISON: Prior chest x-ray 11/06/2017 HISTORY: Intubated, abnormal chest x-ray TECHNIQUE: Single frontal view of the chest is obtained. FINDINGS: Endotracheal tube and NG tube are overlying appropriate positions, right jugular central v enous sheath is in place, there is right-sided PICC line with the distal tip coursing towards the rig ht atrium. The pleural-parenchymal changes in the right chest are similar. No evident pneumothorax. H eart is enlarged. There are overlying cardiac leads. There is possible widening of the mediastinum, d ifficult to exclude mediastinal hematoma. Questionable retrocardiac density. IMPRESSION: Findings are similar to prior exam. There may be right pleural effusion. Probable associ ated atelectasis, correlate to exclude pneumonia, mediastinal hematoma.
--- NOTE | 2017-11-07 10:32 | P.PN ---
Subjective Progress Note Date: 11/07/17 Principal diagnosis: Acute respiratory failure, pleural effusion No overnight issues. Objective - Vital Signs Vital signs: Vital Signs Temp 98.1 F 11/07/17 08:00 Pulse 68 11/07/17 09:00 Resp 22 11/07/17 09:00 BP 131/56 11/07/17 09:00 Pulse Ox 99 11/07/17 09:00 Intake & Output 11/06/17 11/07/17 11/07/17 18:59 06:59 18:59 Intake Total 293 686 190.598 Output Total 1220 1620 110 Balance -927 934 80.598 Weight 161.5 kg 161.5 kg Intake: IV 193 206 13 0.9 110 120 10 cefTAZidime 1 gm In 50 50 Sodium Chloride 0.9% 50 ml @ 100 mls/hr IVPB Q12HR [facility] Rx#:[id number] pressure bag 33 36 3 Intake, IV Titration 100 69.598 Amount Propofol 1,000 mg In 100 69.598 Empty Bag 1 bag @ Titrate IV .Q0M [facility] Rx#: [id number] Tube Feeding 390 78 Other 90 30 Output: Urine 1220 1620 110 Other: Voiding Method Indwelling Catheter Indwelling Catheter Indwelling Catheter ABP, PAP, CO, CI - Last Documented Arterial Blood Pressure 157/50 - Exam General: Ill appearing, moderate distress, morbidly obese, appears stated age Derm: warm, dry Head: atraumatic, normocephalic, symmetric Eyes: EOMI, no lid lag, anicteric sclera Mouth: no lip lesion, mucus membranes moist Cardiovascular: S1S2 reg, no murmur, positive posterior tibial pulse bilateral, Lungs: CTA bilateral, no rhonchi, no rales , no accessory muscle use, on vent Abdominal: soft, nontender to palpation, no guarding, no appreciable organomegaly Ext: no gross muscle atrophy, 3+ pitting edema, no contractures Neuro: CN II-XI grossly intact, moving upper hands independently, no movement of feet currently Psych: Lethargic, intermittently following commands, not agitated - Labs CBC & Chem 7: 11/07/17 04:00 11/07/17 04:00 Labs: Abnormal Lab Results - Last 24 Hours (Table) 11/06/17 11/06/17 11/06/17 Range/Units 04:15 04:15 04:15 RBC (3.80-5.40) m/uL Hgb (11.4-16.0) gm/dL Hct (34.0-46.0) % MCHC (31.0-37.0) g/dL RDW (11.5-15.5) % Plt Count (150-450) k/uL Retic Count 6.7 H (0.5-2.0) % ABG pCO2 (35-45) mmHg ABG pO2 (83-108) mmHg ABG HCO3 (21-25) mmol/L ABG Total CO2 (19-24) mmol/L ABG O2 Saturation (94-97) % Sodium (137-145) mmol/L BUN (7-17) mg/dL Creatinine (0.52-1.04) mg/dL Glucose (74-99) mg/dL POC Glucose (mg/dL) (75-99) mg/dL Phosphorus (2.5-4.5) mg/dL Iron 27 L (50-170) ug/dL Iron Saturation 10.67 L (12.00-45.00) Total Protein (6.3-8.2) g/dL Albumin (3.5-5.0) g/dL RBC Folate 1,058 H (280 - 791) ng/mL 11/06/17 11/06/17 11/06/17 Range/Units 11:49 13:36 17:09 RBC (3.80-5.40) m/uL Hgb (11.4-16.0) gm/dL Hct (34.0-46.0) % MCHC (31.0-37.0) g/dL RDW (11.5-15.5) % Plt Count (150-450) k/uL Retic Count (0.5-2.0) % ABG pCO2 48 H (35-45) mmHg ABG pO2 66 L (83-108) mmHg ABG HCO3 28 H (21-25) mmol/L ABG Total CO2 29 H (19-24) mmol/L ABG O2 Saturation 92.3 L (94-97) % Sodium (137-145) mmol/L BUN (7-17) mg/dL Creatinine (0.52-1.04) mg/dL Glucose (74-99) mg/dL POC Glucose (mg/dL) 143 H 144 H (75-99) mg/dL Phosphorus (2.5-4.5) mg/dL Iron (50-170) ug/dL Iron Saturation (12.00-45.00) Total Protein (6.3-8.2) g/dL Albumin (3.5-5.0) g/dL RBC Folate (280 - 791) ng/mL 11/06/17 11/07/17 11/07/17 Range/Units 18:16 00:07 04:00 RBC (3.80-5.40) m/uL Hgb (11.4-16.0) gm/dL Hct (34.0-46.0) % MCHC (31.0-37.0) g/dL RDW (11.5-15.5) % Plt Count (150-450) k/uL Retic Count (0.5-2.0) % ABG pCO2 (35-45) mmHg ABG pO2 (83-108) mmHg ABG HCO3 (21-25) mmol/L ABG Total CO2 (19-24) mmol/L ABG O2 Saturation (94-97) % Sodium 136 L (137-145) mmol/L BUN 61 H (7-17) mg/dL Creatinine 2.10 H (0.52-1.04) mg/dL Glucose 133 H (74-99) mg/dL POC Glucose (mg/dL) 139 H 119 H (75-99) mg/dL Phosphorus 6.8 H (2.5-4.5) mg/dL Iron (50-170) ug/dL Iron Saturation (12.00-45.00) Total Protein 5.5 L (6.3-8.2) g/dL Albumin 2.6 L (3.5-5.0) g/dL RBC Folate (280 - 791) ng/mL 11/07/17 11/07/17 11/07/17 Range/Units 04:00 05:00 06:25 RBC 3.00 L (3.80-5.40) m/uL Hgb 7.9 L (11.4-16.0) gm/dL Hct 25.8 L (34.0-46.0) % MCHC 30.4 L (31.0-37.0) g/dL RDW 18.7 H (11.5-15.5) % Plt Count 128 L (150-450) k/uL Retic Count (0.5-2.0) % ABG pCO2 46 H (35-45) mmHg ABG pO2 (83-108) mmHg ABG HCO3 27 H (21-25) mmol/L ABG Total CO2 29 H (19-24) mmol/L ABG O2 Saturation 97.1 H (94-97) % Sodium (137-145) mmol/L BUN (7-17) mg/dL Creatinine (0.52-1.04) mg/dL Glucose (74-99) mg/dL POC Glucose (mg/dL) 144 H (75-99) mg/dL Phosphorus (2.5-4.5) mg/dL Iron (50-170) ug/dL Iron Saturation (12.00-45.00) Total Protein (6.3-8.2) g/dL Albumin (3.5-5.0) g/dL RBC Folate (280 - 791) ng/mL Assessment and Plan Plan: Acute on chronic hypoxic respiratory failure, mulitfactorial - CHF, R lung collapase s/p bronch, right-sided pleural effusion -Pulmonary following, vent management -Guardianship established, case d/w guardian -Currently trying to wean off ventilator, if weaning failed patient will need trach and PEG placement -Due to suspected PE patient was treated with heparin drip initially but that was DC'd on 11/01 secondary to drop in hemoglobin. Patient was unable to tolerate VQ scan or CTA of the chest. Acute exacerbation of diastolic CHF with ejection fraction 50-55% -Continue with Lasix 80 mg 3 times a day. - BB - ARB on hold due to JOHN JOHN on CKD stage III, with vancomycin toxicity, currently receiving dialysis - HD today to increase chances of weaning off the vent -Nephrology recommendations -Renally dose medications -Continue with Lasix as above Left Lower extremity wound growing out Klebsiella and Pseudomonas - ID recs - Off loading - Ceftazadime Anemia of chronic disease on top of iron deficiency anemia - continue aranesp - FE replacement - follow intermittent CBC Thrombocytopenia -Likely multifactorial -Follow CBC Diabetes mellitus type 2 -A1c 5.4 - SSI - Follow BS Hypertension,elevated - resume BB, continue to hold ARB, Hydralazine, and Norvasc - follow BP Atherosclerotic coronary artery disease -ASA, lipitor Social issues -Daughter's estranged from the patient, we have been unable to get ahold of the brother, currently looking for a public guardian to assist with getting an trach and PEG. DVT prophylaxis: heparin SC Discussed with: Nursing Anticipated discharge: unknown Anticipated discharge place: Likely will need LTAC A total of 35 minutes was spent on the care of this complex patient more than 50 % of the time was spent in counseling and care coordination.
[2017-11-07 12:14] LABS: Glucose,Whole Blood 146 mg/dL (75-99)
[2017-11-07] MEDS: ASPIRIN 81 MG PO SCH (16:17)
--- NOTE | 2017-11-07 16:18 | P.PN ---
Subjective Progress Note Date: 11/07/17 65-year-old female patient is being seen in follow-up on 11/04/2017. This patient is morbidly obese with a BMI 33.9. She is in the intensive care is with acute on top of chronic history failure most likely on the basis of massive fluid overload. This morning, she is assist-control mode of ventilation at the rate of 20 with tidal volume of 400 and FiO2 of 50% with a PEEP of 10. Chest x-ray shows a right-sided pleural effusion. ET tube is in a good location. The blood gas showed a pH of 7.39 with a pCO2 of 46 and pO2 of 70 and this was on FiO2 of 50%. The patient is sedated with propofol at a dose of 50 g per KG per minute. She can arouse upon given a sedation holiday. In terms of her fluid overload, the patient has already received 2 sessions of hemodialysis 3 temporary dialysis catheter inserted in the right IJ. I discussed the case with nephrology today. We decided to hold off on dialysis as the patient is producing adequate amount of urine output while being on Lasix 83 g IV push every 12 hours. The patient is improving in terms of urine output and she is ready produced 1.9 L of urine output since morning. The creatinine from today's at 1.9 and the rest of the electrodes are all within normal limits. No significant acidosis. Bronchoscopy was done earlier and the patient did not reveal any significant microbial growth and the bronchioloalveolar lavage was also negative. Patient is on IV Fortaz and infectious disease on the case regarding the lower extremity wounds. On 11/05/2017 I'm seeing this patient for a follow-up. The patient is sedated and intubated on a mechanical ventilator. She is an assist-control mode of ventilation at the rate of 12 and FiO2 of 50% and a PEEP of 8 with a tidal volume of 400. She is was sedated with Diprivan and she is calm and comfortable. No significant orotracheal secretion. Chest x-ray showing a large right-sided pleural effusion and his tube is in a good location. The blood gas showed a pH of 7.4 with a pCO2 of 44 and pO2 of 63. We held off on dialysis yesterday as the patient is improving in terms of urine output. She is producing almost 50 mL an hour and she is on Lasix 80 mg IV push every 8 hours. The net fluid balance is -697 mL over the past 24 hours. We have contemplated PEG and trach. We will also contemplated chest tube insertion however we were not successful and obtaining consent. We're the process of getting a legal guardian at this point to undergo this procedures. Unfortunately nothing much can be done without any consent knowing that all of these procedures are not life saving or do not being done for immediate life- threatening conditions. The patient is not having any fever. No leukocytosis. Hemoglobin is at 7. Creatinine is down to 2. No pressors for now. Tolerating the tube feeds. Antibiotic coverage includes IV Fortaz and clindamycin. No other significant events over the past 24 hours for now. On 11/06/2017 I'm seeing this patient in the intensive care unit in a follow- up. We were able to finally get a public guardian for this patient. As mentioned she want to be a full code and based on that the public guardian is agreeable to any further intervention including a PEG and a trach. My intention is to give the patient is sedation holiday for a longest period of time and assess the patient's underlying mental status. I would like to see some response and alertness from this patient off sedation. At the same time would like to get this patient another session of ultrafiltration together as dry as possible in consideration for possible weaning/extubation. If this fails , the alternative will be long-term PEG and trach. On today's chest x-ray, the patient is small lung volumes and the patient continues to have a right-sided pleural effusion. She remains on assist control mode mode of ventilation. She is on a volume cycle with a tidal volume of 400 and FiO2 of 50% and a PEEP of 5. The blood gases from this morning showed a pH of 7.4 with a pCO2 of 44 and pO2 of 60 and this was on the 50% FiO2. The patient is on no pressors. The patient is afebrile. The patient is covered with broad-spectrum antibiotics. ID is on the case. Renal function continues to be impaired with a creatinine of 2.0. The patient underwent ultrafiltration yesterday with removal of 3 L and another session of ultrafiltration will be done today and this was coordinated with nephrology. She is afebrile. She is tolerating her tube feeds. She is producing good urine output while on IV Lasix. Otherwise no other significant events over the past 24 hours. On 11/04/2017, the patient remains in intensive care unit intubated on a mechanical ventilator. I was very close to consider extubating this patient however is unaffected that she was started on an FiO2 of 60% and based on her weakness and poor ability to clear the rest or secretions, decided not to. I decided to give this patient another day on a mechanical ventilator during which I'm going to give her another session of ultrafiltration diuresis with IV Lasix and optimize further volume status and consider possibility of extubation today. This will be a very difficult extubation. The patient may very well failed extubation. Alternative would be long-term mechanical ventilation through a tracheostomy tube which I have ordered the agreed upon with her legal guardian. I would like however to try at least an extubation on this patient once she is fully dialyzed and diuresis. Based on this, it kept on the sedation this morning. She was able to arouse from her sedation to the point where she was following simple commands. She remains extremely weak and upper and lower extremities. Ultrafiltration will be done today and the goal be removal of 3 L of IV fluids. She is producing adequate amount of urine output and she is still on IV Lasix. Renal function from today shows a creatinine of 2.1. As far as vent support, the patient is still on the same vent setting within assist-control of 20, tidal volume of 400 with an FiO2 of 60% and a PEEP of 5. Her morning blood gases showed a pH of 7.38 with a pCO2 of 46 and pO2 of 85. I was able to cut down the FiO2 down to 50% and she maintain a saturation above 90%. Chest x-ray findings are still the same and the patient has a right- sided pleural effusion. Lung volumes are essentially small at this point in time. She is tolerating her tube feeds. We will make it final decision on extubation versus long-term PEG and trach and long-term mechanical ventilation with the next 24 hours. I am inclined to at least give her a trial of extubation prior to going to a long-term vent management system especially with her poor baseline performance and functional status and poor long-term prognosis. She is afebrile. No other significant events occurred over the past 24 hours. Objective - Vital Signs Vital signs: Vital Signs Temp 98 F 11/07/17 12:00 Pulse 90 08/23/18 15:00 Resp 21 11/07/17 15:47 BP 150/61 11/07/17 15:00 Pulse Ox 88 L 11/07/17 15:00 Intake & Output 11/06/17 11/07/17 11/07/17 18:59 06:59 18:59 Intake Total 293 686 365.598 Output Total 1220 1620 1090 Balance -927 -934 -724.402 Weight 161.5 kg 161.5 kg Intake: IV 193 206 110 0.9 110 120 80 cefTAZidime 1 gm In 50 50 Sodium Chloride 0.9% 50 ml @ 100 mls/hr IVPB Q12HR [facility] Rx#:[id number] pressure bag 33 36 30 Intake, IV Titration 100 69.598 Amount Propofol 1,000 mg In 100 69.598 Empty Bag 1 bag @ Titrate IV .Q0M [facility] Rx#: [id number] Tube Feeding 390 156 Other 90 30 Output: Urine 1220 1620 1090 Other: Voiding Method Indwelling Catheter Indwelling Catheter Indwelling Catheter # Voids 1 ABP, PAP, CO, CI - Last Documented Arterial Blood Pressure 161/60 - Exam No acute distress, sedated, with an orally placed endotracheal tube and NG tube. Sedated with Diprivan, comfortable 9 acute distress HEENT examination is grossly unremarkable. Mucous membranes are moist. Neck supple. Full range of motion. No adenopathy thyromegaly or neck vein distention. Cardiovascular examination reveals regular rhythm rate. S1-S2 normal. No S3 or S4. No discernible murmur noted. Heart sounds are very distant. Lungs reveal severely diminished breath sounds bilaterally, right greater than left. There are bilateral coarse rhonchi. Crackles are noted at both bases. No wheezes are appreciated. Very little air entry on the right side noted. Breath sounds are about what they were the day before. There is not been much change. Abdominal exam revealed normal bowel sounds. The abdomen was soft, non-tender, and without masses, organomegaly, or appreciable enlargement of the abdominal aorta. Extremities are intact. Chronic lower extremity edema is noted. She also is chronic venous stasis changes with hyperpigmentation. Heels are bandaged. Slightly improved edema of the lower extremities is noted. 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 Left heel measures at 2.4 x 3.5 x 0.2 cm right heel ulceration measuring at 2 x 2 x 0.2 total contact cast was removed Skin is without rash or lesion. See the lower extremity examination as mentioned above Neurologic examination reveals that the patient is arousable off the sedation. She can [place] to deep painful stimuli in all 4 extremities. Does not follow any commands at this point in time due to sedation. - Labs CBC & Chem 7: 11/07/17 04:00 11/07/17 04:00 Labs: Abnormal Lab Results - Last 24 Hours (Table) 11/06/17 11/06/17 11/06/17 Range/Units 04:15 04:15 11:49 RBC (3.80-5.40) m/uL Hgb (11.4-16.0) gm/dL Hct (34.0-46.0) % MCHC (31.0-37.0) g/dL RDW (11.5-15.5) % Plt Count (150-450) k/uL ABG pCO2 (35-45) mmHg ABG pO2 (83-108) mmHg ABG HCO3 (21-25) mmol/L ABG Total CO2 (19-24) mmol/L ABG O2 Saturation (94-97) % Sodium (137-145) mmol/L BUN (7-17) mg/dL Creatinine (0.52-1.04) mg/dL Glucose (74-99) mg/dL POC Glucose (mg/dL) 143 H (75-99) mg/dL Phosphorus (2.5-4.5) mg/dL Iron 27 L (50-170) ug/dL Iron Saturation 10.67 L (12.00-45.00) Total Protein (6.3-8.2) g/dL Albumin (3.5-5.0) g/dL RBC Folate 1,058 H (280 - 791) ng/mL 11/06/17 11/06/17 11/06/17 Range/Units 13:36 17:09 18:16 RBC (3.80-5.40) m/uL Hgb (11.4-16.0) gm/dL Hct (34.0-46.0) % MCHC (31.0-37.0) g/dL RDW (11.5-15.5) % Plt Count (150-450) k/uL ABG pCO2 48 H (35-45) mmHg ABG pO2 66 L (83-108) mmHg ABG HCO3 28 H (21-25) mmol/L ABG Total CO2 29 H (19-24) mmol/L ABG O2 Saturation 92.3 L (94-97) % Sodium (137-145) mmol/L BUN (7-17) mg/dL Creatinine (0.52-1.04) mg/dL Glucose (74-99) mg/dL POC Glucose (mg/dL) 144 H 139 H (75-99) mg/dL Phosphorus (2.5-4.5) mg/dL Iron (50-170) ug/dL Iron Saturation (12.00-45.00) Total Protein (6.3-8.2) g/dL Albumin (3.5-5.0) g/dL RBC Folate (280 - 791) ng/mL 11/07/17 11/07/17 11/07/17 Range/Units 00:07 04:00 04:00 RBC 3.00 L (3.80-5.40) m/uL Hgb 7.9 L (11.4-16.0) gm/dL Hct 25.8 L (34.0-46.0) % MCHC 30.4 L (31.0-37.0) g/dL RDW 18.7 H (11.5-15.5) % Plt Count 128 L (150-450) k/uL ABG pCO2 (35-45) mmHg ABG pO2 (83-108) mmHg ABG HCO3 (21-25) mmol/L ABG Total CO2 (19-24) mmol/L ABG O2 Saturation (94-97) % Sodium 136 L (137-145) mmol/L BUN 61 H (7-17) mg/dL Creatinine 2.10 H (0.52-1.04) mg/dL Glucose 133 H (74-99) mg/dL POC Glucose (mg/dL) 119 H (75-99) mg/dL Phosphorus 6.8 H (2.5-4.5) mg/dL Iron (50-170) ug/dL Iron Saturation (12.00-45.00) Total Protein 5.5 L (6.3-8.2) g/dL Albumin 2.6 L (3.5-5.0) g/dL RBC Folate (280 - 791) ng/mL 11/07/17 11/07/17 11/07/17 Range/Units 05:00 06:25 12:12 RBC (3.80-5.40) m/uL Hgb (11.4-16.0) gm/dL Hct (34.0-46.0) % MCHC (31.0-37.0) g/dL RDW (11.5-15.5) % Plt Count (150-450) k/uL ABG pCO2 46 H (35-45) mmHg ABG pO2 (83-108) mmHg ABG HCO3 27 H (21-25) mmol/L ABG Total CO2 29 H (19-24) mmol/L ABG O2 Saturation 97.1 H (94-97) % Sodium (137-145) mmol/L BUN (7-17) mg/dL Creatinine (0.52-1.04) mg/dL Glucose (74-99) mg/dL POC Glucose (mg/dL) 144 H 146 H (75-99) mg/dL Phosphorus (2.5-4.5) mg/dL Iron (50-170) ug/dL Iron Saturation (12.00-45.00) Total Protein (6.3-8.2) g/dL Albumin (3.5-5.0) g/dL RBC Folate (280 - 791) ng/mL Assessment and Plan Plan: Assessment 1 acute on top of chronic hypoxic history failure likely on the basis of CHF/ fluid overload and development of a large right-sided pleural effusion. The patient has been intubated on the mechanical ventilator since 10/31/2017. The patient is currently being diuresed. At the same time the patient is undergoing dialysis/ultrafiltration. The patient had 3 sessions of dialysis/ ultrafiltration [id number] and she is also being diuresis with IV Lasix. We' ll trying to optimize her volume status. She continues to have significant amount of volume overload and anasarca. Nevertheless, she may be able to pass a spontaneous breathing trial and she may potentially extubated to BiPAP. I cannot guarantee long-term success of extubation special with her morbid obesity and generalized weakness and her poor ability to cough and clear rest or secretions. This is something to consider an alternative would be long-term PEG and trach especially if she fails extubation. 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 Continue ultrafiltration. Continued IV diuretics. We'll do a CPAP chart at the later stage and obtain a blood gas. May consider extubation. The extubation if takes places will be to a BiPAP. Success of the extubation is slim however it's worthwhile especially that the alternative would be long-term mechanical ventilation and tracheostomy tube insertion. Keep her off sedation. Monitor mentation. Monitor electrolytes. Keep same antibiotic coverage. We'll continue to follow make further recommendations based on her progress. Critically care evaluation more than 30 minutes.
[2017-11-07 18:44] LABS: Glucose,Whole Blood 141 mg/dL (75-99)
[2017-11-07] MEDS: ATORVASTATIN 10 MG TAB PO SCH (21:00)
--- NOTE | 2017-11-07 23:04 | P.PN ---
Subjective Progress Note Date: 11/07/17 66 year old woman with superobesity presents to the ER with marked increase of shortness of breath, with some chest pain also occurring. At admission there was evidence of worsening of her chronic renal failure and significant volume overload, with some diuresis she is already receiving relief from her extensive shortness of breath. At this time she is not complaining of any chest pain. She was found and she has been seen by pulmonary critical care, and there is a possibility of a thoracentesis future. At this time she denies other acute new complaints. A total contact cast is in place on the left leg for the pressure ulcer to the left heel is negative for any difficulties at all. The chronic ulcerations of the right heel is also without pain. She is aware of improved urinary output since being on the higher doses of Lasix. As noted she has a history of significant underlying coronary artery disease with a history of congestive heart failure with known diastolic dysfunction. She is feeling slightly better at this time but certainly not nearly her baseline. She does have significant debility. 10/28/2017 the patient has declined further today. She is requiring BiPAP for oxygen saturation, she is somewhat confused but does seem to be comfortable. She is unable to complain of any new symptoms 10/29/2017 the patient is much more awake and alert today. Her BiPAP is in place and she is no longer confused. She recognized me by name and knows that she is at the hospital. She is denying significant discomfort in her shortness of breath is improved. October 31, 2017 patient patient is worsen she is now developed respiratory failure and required intubation with mechanical ventilation and is sedated. She' s been seen by nephrology and with volume overload is receiving hemodialysis. The hope is that with dialysis she'll improve her pulmonary status from improved volume status. No fevers are noted. No new positive cultures. 11/01/2017 patient remained intubated sedated and mechanically ventilated with respiratory failure. She is receiving another course of hemodialysis which will hopefully remove a total of 6 L of fluid over this 3 day time frame. She still remains grossly volume overloaded. She fortunately does have some urinary output despite her renal failure that appears to multifactorial including vancomycin therapy. Psychosocial has had great difficulties, it appears that the social workers will ask for guardianship from the courts coming Saturday to make further plans. 11/04/2017 patient remains in intensive care unit intubated sedated and mechanically ventilated. Dialysis has helped remove some of her extensive edema and will have further dialysis tomorrow.her acidosis is improved, leukocytosis improved still has significant anemia. No new positive cultures. 11/07/2017 patient remains in intensive care unit intubated sedated and mechanically ventilated. She remains on dialysis to improve her gross volume overload. There was attempts today to hold sedation and potentially extubate and monitor status. However off sedation she is not following commands and has not had any improvement of her mental status. Appears to be plans for tracheostomy and PEG tube placement tomorrow.will likely then need LTAC placement. Objective - Vital Signs Vital signs: Vital Signs Temp 98.2 F 11/07/17 19:00 Pulse 74 11/07/17 22:00 Resp 21 11/07/17 22:00 BP 129/57 11/07/17 22:00 Pulse Ox 99 11/07/17 22:00 Intake & Output 11/07/17 11/07/17 11/08/17 06:59 18:59 06:59 Intake Total 686 428.456 164 Output Total 1620 1300 155 Balance -934 -871.544 9 Weight 161.5 kg 161.5 kg Intake: IV 206 158 64 0.9 120 110 40 cefTAZidime 1 gm In 50 Sodium Chloride 0.9% 50 ml @ 100 mls/hr IVPB Q12HR [facility] Rx#:[id number] pressure bag 36 48 24 Intake, IV Titration 84.456 100 Amount Propofol 1,000 mg In 84.456 100 Empty Bag 1 bag @ Titrate IV .Q0M [facility] Rx#: [id number] Tube Feeding 390 156 Other 90 30 Output: Urine 1620 1300 155 Other: Voiding Method Indwelling Catheter Indwelling Catheter Indwelling Catheter # Voids 1 ABP, PAP, CO, CI - Last Documented Arterial Blood Pressure 147/55 - Labs CBC & Chem 7: 11/07/17 04:00 11/07/17 04:00 Labs: Abnormal Lab Results - Last 24 Hours (Table) 11/06/17 11/06/17 11/07/17 Range/Units 04:15 04:15 00:07 RBC (3.80-5.40) m/uL Hgb (11.4-16.0) gm/dL Hct (34.0-46.0) % MCHC (31.0-37.0) g/dL RDW (11.5-15.5) % Plt Count (150-450) k/uL ABG pCO2 (35-45) mmHg ABG HCO3 (21-25) mmol/L ABG Total CO2 (19-24) mmol/L ABG O2 Saturation (94-97) % Sodium (137-145) mmol/L BUN (7-17) mg/dL Creatinine (0.52-1.04) mg/dL Glucose (74-99) mg/dL POC Glucose (mg/dL) 119 H (75-99) mg/dL Phosphorus (2.5-4.5) mg/dL Iron 27 L (50-170) ug/dL Iron Saturation 10.67 L (12.00-45.00) Total Protein (6.3-8.2) g/dL Albumin (3.5-5.0) g/dL RBC Folate 1,058 H (280 - 791) ng/mL 11/07/17 11/07/17 11/07/17 Range/Units 04:00 04:00 05:00 RBC 3.00 L (3.80-5.40) m/uL Hgb 7.9 L (11.4-16.0) gm/dL Hct 25.8 L (34.0-46.0) % MCHC 30.4 L (31.0-37.0) g/dL RDW 18.7 H (11.5-15.5) % Plt Count 128 L (150-450) k/uL ABG pCO2 46 H (35-45) mmHg ABG HCO3 27 H (21-25) mmol/L ABG Total CO2 29 H (19-24) mmol/L ABG O2 Saturation 97.1 H (94-97) % Sodium 136 L (137-145) mmol/L BUN 61 H (7-17) mg/dL Creatinine 2.10 H (0.52-1.04) mg/dL Glucose 133 H (74-99) mg/dL POC Glucose (mg/dL) (75-99) mg/dL Phosphorus 6.8 H (2.5-4.5) mg/dL Iron (50-170) ug/dL Iron Saturation (12.00-45.00) Total Protein 5.5 L (6.3-8.2) g/dL Albumin 2.6 L (3.5-5.0) g/dL RBC Folate (280 - 791) ng/mL 11/07/17 11/07/17 11/07/17 Range/Units 06:25 12:12 18:42 RBC (3.80-5.40) m/uL Hgb (11.4-16.0) gm/dL Hct (34.0-46.0) % MCHC (31.0-37.0) g/dL RDW (11.5-15.5) % Plt Count (150-450) k/uL ABG pCO2 (35-45) mmHg ABG HCO3 (21-25) mmol/L ABG Total CO2 (19-24) mmol/L ABG O2 Saturation (94-97) % Sodium (137-145) mmol/L BUN (7-17) mg/dL Creatinine (0.52-1.04) mg/dL Glucose (74-99) mg/dL POC Glucose (mg/dL) 144 H 146 H 141 H (75-99) mg/dL Phosphorus (2.5-4.5) mg/dL Iron (50-170) ug/dL Iron Saturation (12.00-45.00) Total Protein (6.3-8.2) g/dL Albumin (3.5-5.0) g/dL RBC Folate (280 - 791) ng/mL Assessment and Plan (1) Diabetes mellitus type 2, uncontrolled, with complications Current Visit: No Status: Acute Priority: Medium Code(s): E11.8 - TYPE 2 DIABETES MELLITUS WITH UNSPECIFIED COMPLICATIONS; E11.65 - TYPE 2 DIABETES MELLITUS WITH HYPERGLYCEMIA SNOMED Code(s): 175502348 (2) Diabetic ulcer of heel Current Visit: Yes Status: Acute Priority: High Code(s): E11.621 - TYPE 2 DIABETES MELLITUS WITH FOOT ULCER; L97.409 - NON-PRS CHRONIC ULCER OF UNSP HEEL AND MIDFOOT W UNSP SEVERT SNOMED Code(s): 64658577 (3) Severe obesity (BMI >= 40) Current Visit: No Status: Acute Code(s): E66.01 - MORBID (SEVERE) OBESITY DUE TO EXCESS CALORIES SNOMED Code(s): 713018819
[2017-11-07 23:37] LABS: Glucose,Whole Blood 121 mg/dL (75-99)
[2017-11-08] MEDS: IPRATROPIUM-ALBUTEROL 3 ML NEB INHALATION SCH ×7 (00:45→23:20)
[2017-11-08] MEDS: PROPOFOL 1,000 MG in EMPTY BAG 1 BAG IV SCH ×7 (03:49→17:39)
[2017-11-08 04:42] LABS: ABG Base Excess 4.8 mmol/L; ABG HCO3 29 mmol/L (21-25); ABG Oxygen Saturation 95.2 % (94-97); ABG PCO2 46 mmHg (35-45); ABG PH 7.42 (7.35-7.45); ABG PO2 72 mmHg (83-108); ABG TCO2 31 mmol/L (19-24)
[2017-11-08 05:57] LABS: Calcium 8.3 mg/dL (8.4-10.2); Phosphorus 5.5 mg/dL (2.5-4.5); Potassium 3.4 mmol/L (3.5-5.1)
[2017-11-08 06:11] LABS: Anisocytosis Slight; Basophils % (A) 0 %; Eosinophils # (A) 0.4 k/uL (0-0.7); Eosinophils % (A) 5 %; HCT 24.6 % (34.0-46.0); HGB 7.2 gm/dL (11.4-16.0); Hypochromasia Marked; Lymphocytes # (A) 0.7 k/uL (1.0-4.8); Lymphocytes % (A) 9 %; MCH 25.3 pg (25.0-35.0); MCHC 29.1 g/dL (31.0-37.0); Monocytes # (A) 0.6 k/uL (0-1.0); Monocytes % (A) 8 %; Neutrophils # (A) 5.8 k/uL (1.3-7.7); Neutrophils % (A) 76 %; Platelet Count 140 k/uL (150-450); RBC 2.83 m/uL (3.80-5.40); RDW 18.3 % (11.5-15.5); WBC 7.6 k/uL (3.8-10.6)
[2017-11-08 06:22] LABS: Methylmalonic Acid 2.18 umol/L (<0.40)
--- NOTE | 2017-11-08 06:39 | P.PN ---
Subjective Progress Note Date: 11/08/17 Principal diagnosis: This is a 66-year-old female seen in consultation because of acute kidney injury from cardiorenal syndrome and vancomycin. She was started on dialysis and has had multiple dialysis now for the last 1 week. Yesterday she had pure ultrafiltration for 3 L and tolerated well. Her urine output was 2840 and 22-65 over the last 2 days. She remains on the vent on 50% FiO2 unable to be weaned off as supposedly there was some deterioration in her mental status. He is currently back on the present. She is scheduled to have head and tracheostomy this morning. A chest x-ray yesterday showed continuing collapse of the right lung but stable and improved from a few days back. Vital signs are stable. She remains obtunded on sedation She is known with chronic kidney disease stage III likely from diabetic nephropathy, diabetes, obesity, staph epidermidis bacteremia possible contaminant, Patient presented with chest pressure and is being followed by cardiology. Currently she admits to shortness of breath. Her chest x-ray on admission revealed pulmonary edema and a chest ultrasound revealed bilateral pleural effusions. Objective - Vital Signs Vital signs: Vital Signs Temp 98.4 F 11/08/17 04:00 Pulse 66 11/08/17 06:00 Resp 20 11/08/17 06:00 BP 119/54 11/08/17 06:00 Pulse Ox 97 11/08/17 06:00 Intake & Output 11/07/17 11/07/17 11/08/17 06:59 18:59 06:59 Intake Total 686 428.456 392 Output Total 1620 1300 965 Balance -934 -871.544 -573 Weight 161.5 kg 161.5 kg 160.5 kg Intake: IV 206 158 192 0.9 120 110 120 cefTAZidime 1 gm In 50 Sodium Chloride 0.9% 50 ml @ 100 mls/hr IVPB Q12HR [facility] Rx#:[id number] pressure bag 36 48 72 Intake, IV Titration 84.456 200 Amount Propofol 1,000 mg In 84.456 200 Empty Bag 1 bag @ Titrate IV .Q0M [facility] Rx#: [id number] Tube Feeding 390 156 Other 90 30 Output: Urine 1620 1300 965 Other: Voiding Method Indwelling Catheter Indwelling Catheter Indwelling Catheter # Voids 1 ABP, PAP, CO, CI - Last Documented Arterial Blood Pressure 153/57 On examination she is obtunded on sedation She is on vent on 50% FiO2. HEENT exam is difficult to see but no JVD seen is supple no facial asymmetry pupils are equal Lungs are clear to auscultation fair air entry bilaterally. Heart sounds are unremarkable she is in normal sinus rhythm no murmur rub gallop Abdomen is obese protuberant. No masses felt Extremity exam was 1+ edema. Neurologically sedated and obtunded - Labs CBC & Chem 7: 11/08/17 05:30 11/08/17 05:30 Labs: Abnormal Lab Results - Last 24 Hours (Table) 11/06/17 11/06/17 11/07/17 Range/Units 04:15 04:15 06:25 RBC (3.80-5.40) m/uL Hgb (11.4-16.0) gm/dL Hct (34.0-46.0) % MCHC (31.0-37.0) g/dL RDW (11.5-15.5) % Plt Count (150-450) k/uL Lymphocytes # (1.0-4.8) k/uL ABG pCO2 (35-45) mmHg ABG pO2 (83-108) mmHg ABG HCO3 (21-25) mmol/L ABG Total CO2 (19-24) mmol/L Potassium (3.5-5.1) mmol/L BUN (7-17) mg/dL Creatinine (0.52-1.04) mg/dL Glucose (74-99) mg/dL POC Glucose (mg/dL) 144 H (75-99) mg/dL Calcium (8.4-10.2) mg/dL Phosphorus (2.5-4.5) mg/dL Iron 27 L (50-170) ug/dL Iron Saturation 10.67 L (12.00-45.00) Methylmalonic Acid 2.18 H (<0.40) umol/L 11/07/17 11/07/17 11/07/17 Range/Units 12:12 18:42 23:35 RBC (3.80-5.40) m/uL Hgb (11.4-16.0) gm/dL Hct (34.0-46.0) % MCHC (31.0-37.0) g/dL RDW (11.5-15.5) % Plt Count (150-450) k/uL Lymphocytes # (1.0-4.8) k/uL ABG pCO2 (35-45) mmHg ABG pO2 (83-108) mmHg ABG HCO3 (21-25) mmol/L ABG Total CO2 (19-24) mmol/L Potassium (3.5-5.1) mmol/L BUN (7-17) mg/dL Creatinine (0.52-1.04) mg/dL Glucose (74-99) mg/dL POC Glucose (mg/dL) 146 H 141 H 121 H (75-99) mg/dL Calcium (8.4-10.2) mg/dL Phosphorus (2.5-4.5) mg/dL Iron (50-170) ug/dL Iron Saturation (12.00-45.00) Methylmalonic Acid (<0.40) umol/L 11/08/17 11/08/17 11/08/17 Range/Units 04:39 05:30 05:30 RBC 2.83 L (3.80-5.40) m/uL Hgb 7.2 L (11.4-16.0) gm/dL Hct 24.6 L (34.0-46.0) % MCHC 29.1 L (31.0-37.0) g/dL RDW 18.3 H (11.5-15.5) % Plt Count 140 L (150-450) k/uL Lymphocytes # 0.7 L (1.0-4.8) k/uL ABG pCO2 46 H (35-45) mmHg ABG pO2 72 L (83-108) mmHg ABG HCO3 29 H (21-25) mmol/L ABG Total CO2 31 H (19-24) mmol/L Potassium 3.4 L (3.5-5.1) mmol/L BUN 47 H (7-17) mg/dL Creatinine 1.80 H (0.52-1.04) mg/dL Glucose 107 H (74-99) mg/dL POC Glucose (mg/dL) (75-99) mg/dL Calcium 8.3 L (8.4-10.2) mg/dL Phosphorus 5.5 H (2.5-4.5) mg/dL Iron (50-170) ug/dL Iron Saturation (12.00-45.00) Methylmalonic Acid (<0.40) umol/L Assessment and Plan Assessment: Impression 1. ATN secondary to cardiorenal syndrome and vancomycin with dialysis dependency last dialysis yesterday which was pure Ultrafiltration for 3 L. Her urine output is 2265, remains somewhat fluid overloaded with edema, on the vent on 50% % FiO2. . Her creatinine is somewhat better at 1.8 from 2 2. Fluid overloaded with edema,on Lasix 80 milligrams every 8 3 . Chronic kidney disease stage III, etiology is diabetic nephropathy and nephrosclerosis. 4. Ventilator pendent respiratory failure, stable at 50% FiO2, worsening from 50% previously 5. Diabetes and diabetic nephropathy 6. Collapsed right lung, status post bronchoscopy 11/01/2017, chest shows improvement 7. Anemia hemoglobin 7.2 8. Hypokalemia secondary to diuresis and dialysis Recommendation. 1. Maintain Lasix dose 80 mg every 8 hours . 2. Will hold off further dialysis and based on today's x-ray reassess the need for the same. Her labs do not support any further dialysis. We will trying to improve her volume status to help her wean which has not been successful. 3. Replace potassium she will need about 60 mL
--- NOTE | 2017-11-08 06:55 | XR ---
EXAMINATION TYPE: XR chest 1V portable DATE OF EXAM: 11/08/2017 CLINICAL HISTORY: Difficulty breathing progress study. TECHNIQUE: Single AP portable semiupright view of the chest is obtained. COMPARISON: Chest x-ray from one day earlier and older studies. FINDINGS: An endotracheal tube, orogastric tube, right internal jugular catheter, and right-sided PI CC line are all stable in appearance. There is near complete opacification of right lung with even more prominent right lateral component f rom prior. There is left basilar opacity. Cardiac silhouette size is stable and suspected mildly enla rged with atherosclerotic thoracic aorta. Osseous structures are intact. Patient is rotated to the ri ght on current study. No mediastinal shift clearly seen. IMPRESSION: Worsening right lateral opacity suggests worsening right-sided effusion and associated at electasis and/or infiltrate. There is persistent cardiomegaly with small left pleural effusion and as sociated left basilar atelectasis and/or infiltrate.
[2017-11-08] MEDS: INSULIN ASPART 100 UNIT/ML 1 ML 10 ML VIAL SQ SCH ×4 (07:02→23:55)
[2017-11-08] MEDS ORDERED: Potassium Replacement Protocol 1 EACH MISC MISCELLANE PRN (07:52)
[2017-11-08] MEDS ORDERED: CLINDAMYCIN 600 MG in DEXTROSE 5% IN WATER 50 ML IVPB ONE ×4 (08:00→11:00)
[2017-11-08] MEDS ORDERED: IV FLUID CONTINUATION 1,000 ML IV ONE (08:46)
[2017-11-08] MEDS ORDERED: MIDAZOLAM 2 MG/2 ML VIAL ONE (08:46)
[2017-11-08] MEDS ORDERED: ePHEDrine SULFATE/0.9% NACL/PF 50 MG/5 ML SYRINGE IV ONE (08:46)
[2017-11-08] MEDS ORDERED: fentaNYL (PF) 50 MCG/ML 2 ML AMP ONE (08:46)
[2017-11-08] MEDS: PANTOPRAZOLE 40 MG/10 ML VIAL IVP SCH (10:29)
[2017-11-08] MEDS: HEPARIN SODIUM,PORCINE 5,000 UNIT/ML 1 ML VIAL SQ SCH ×2 (10:30→17:30)
[2017-11-08] MEDS: FUROSEMIDE 10 MG/ML 10 ML VIAL IV SCH ×2 (10:30→17:30)
[2017-11-08] MEDS: POTASSIUM BICARBONATE/CIT AC 20 MEQ TABLET.EFF NG-TUBE SCH ×2 (10:30→11:48)
[2017-11-08] MEDS: METOPROLOL TARTRATE 12.5 MG TAB NG-TUBE SCH ×2 (10:30→20:38)
[2017-11-08] MEDS: CHLORHEXIDINE GLUCONATE 15 ML CUP MUCOUS MEM SCH ×2 (10:30→20:38)
--- NOTE | 2017-11-08 10:59 | P.PCN ---
Date of Procedure: 11/08/17 Preoperative Diagnosis: Respiratory failure with inability to wean from vent Postoperative Diagnosis: Same Procedure(s) Performed: Tracheostomy Anesthesia: ELVIS Surgeon: Efren Mccarty Estimated Blood Loss (ml): 10 Pathology: none sent Condition: stable Disposition: no change Indications for Procedure: Patient has been unable to wean from vent due to numerous comorbidities, not the least of which is severe obesity. Operative Findings: No significant abnormalities are seen. Description of Procedure: With the patient spine position, under benefit of IV sedation, patient already intubated, we prepped and draped in standard fashion. We made a transverse incision 2 fingerbreadths above the sternal notch. We incised suprafascial fascias transversely and split strap muscles in midline. We divided the isthmus of the thyroid with electrocautery. We opened the trachea through second through fourth tracheal rings. We kalli the endotracheal tube up above this opening and placed a #8 Shiley proximal XLT tube. The balloon inflated well. We ventilated with it well. The corners of the incision were closed with 3-0 nylon. These stitches were also used to secure the wings of the flange. Sterile dressings were applied. The patient tolerated the procedure well and we proceeded then with PEG tube.
--- NOTE | 2017-11-08 11:01 | P.PCN ---
Date of Procedure: 11/08/17 Preoperative Diagnosis: Inability to swallow secondary to that dependency Postoperative Diagnosis: Same Procedure(s) Performed: Insertion of percutaneous endoscopic gastrostomy tube. Anesthesia: GETA Surgeon: Efren Mccarty Estimated Blood Loss (ml): 5 Pathology: none sent Condition: stable Disposition: ICU Indications for Procedure: Patient requires nutrition and cannot swallow secondary to that dependency. Operative Findings: No significant abnormalities were seen. Description of Procedure: With the patient spine position, under benefit of IV sedation, with trach tube in place, we prepped and draped in standard fashion. We placed the endoscope transorally under direct visualization. We traversed the esophagus and entered the stomach. The stomach was insufflated. We isolated an area on the anterior abdominal wall corresponding with the anterior wall of stomach. We made a quarter inch transverse incision. Through this incision we placed a needle and trocar. The inner trocar was removed and guidewire placed through the needle. The guidewire was grasped with a snare through the scope. It was brought out through the mouth. We fed retrograde over this the PEG tube. When the plastic of the PEG tube exiting the anterior abdominal wall we used traction to draw the PEG tube into position. We followed it down with the scope and visualized the mushroom tip abutting the gastric mucosa. All possible air was removed. The scope was removed. Adapters were applied to the PEG tube. Sterile dressings were applied. The patient tolerated the procedure well and was then taken to intensive care in stable condition.
[2017-11-08] MEDS: NYSTATIN 100,000 UNIT/GM POWD 15 GM TOPICAL SCH ×2 (11:48→20:38)
[2017-11-08 12:16] LABS: Magnesium 2.2 mg/dL (1.6-2.3); Total Protein 5.2 g/dL (6.3-8.2)
[2017-11-08 12:23] LABS: Prothrombin Time 9.6 sec (9.0-12.0)
[2017-11-08 12:28] LABS: Glucose,Whole Blood 122 mg/dL (75-99)
--- NOTE | 2017-11-08 13:44 | P.PN ---
Subjective Progress Note Date: 11/08/17 Principal diagnosis: Acute respiratory failure, pleural effusion Patient failed repeated attempts at weaning from mechanical ventilation. Her mental status is still impaired, even without sedation she does not follow commands or seems to be comprehending questions. Objective - Vital Signs Vital signs: Vital Signs Temp 98.1 F 11/08/17 12:00 Pulse 59 L 11/08/17 13:00 Resp 20 11/08/17 13:00 BP 110/48 11/08/17 13:00 Pulse Ox 100 11/08/17 13:00 Intake & Output 11/07/17 11/08/17 11/08/17 18:59 06:59 18:59 Intake Total 428.456 492 406.339 Output Total 1300 965 330 Balance -871.544 -473 76.339 Weight 161.5 kg 160.5 kg 160.5 kg Intake: IV 158 192 208 0.9 110 120 40 Clindamycin 600 mg In 50 Dextrose 5% in Water 50 ml @ 100 mls/hr IVPB [facility] Rx#:[id number] cefTAZidime 1 gm In 50 Sodium Chloride 0.9% 50 ml @ 100 mls/hr IVPB Q12HR [facility] Rx#:[id number] pressure bag 48 72 18 Intake, IV Titration 84.456 300 198.339 Amount Propofol 1,000 mg In 84.456 300 198.339 Empty Bag 1 bag @ Titrate IV .Q0M [facility] Rx#: [id number] Tube Feeding 156 Other 30 Output: Urine 1300 965 320 Estimated Blood Loss 10 Other: Voiding Method Indwelling Catheter Indwelling Catheter # Voids 1 ABP, PAP, CO, CI - Last Documented Arterial Blood Pressure 129/43 - Exam General: Ill appearing, moderate distress, morbidly obese, appears stated age Derm: warm, dry Head: atraumatic, normocephalic, symmetric Eyes: EOMI, no lid lag, anicteric sclera Mouth: no lip lesion, mucus membranes moist Cardiovascular: S1S2 reg, no murmur, positive posterior tibial pulse bilateral, Lungs: CTA bilateral, no rhonchi, no rales , no accessory muscle use, on vent Abdominal: soft, nontender to palpation, no guarding, no appreciable organomegaly Ext: no gross muscle atrophy, 3+ pitting edema, no contractures Neuro: CN II-XI grossly intact, moving upper hands independently, no movement of feet currently Psych: Lethargic, intermittently following commands, not agitated - Labs CBC & Chem 7: 11/08/17 05:30 11/08/17 05:30 Labs: Abnormal Lab Results - Last 24 Hours (Table) 11/06/17 11/07/17 11/07/17 Range/Units 04:15 18:42 23:35 RBC (3.80-5.40) m/uL Hgb (11.4-16.0) gm/dL Hct (34.0-46.0) % MCHC (31.0-37.0) g/dL RDW (11.5-15.5) % Plt Count (150-450) k/uL Lymphocytes # (1.0-4.8) k/uL ABG pCO2 (35-45) mmHg ABG pO2 (83-108) mmHg ABG HCO3 (21-25) mmol/L ABG Total CO2 (19-24) mmol/L Potassium (3.5-5.1) mmol/L BUN (7-17) mg/dL Creatinine (0.52-1.04) mg/dL Glucose (74-99) mg/dL POC Glucose (mg/dL) 141 H 121 H (75-99) mg/dL Calcium (8.4-10.2) mg/dL Phosphorus (2.5-4.5) mg/dL Total Protein (6.3-8.2) g/dL Methylmalonic Acid 2.18 H (<0.40) umol/L 11/08/17 11/08/17 11/08/17 Range/Units 04:39 05:30 05:30 RBC 2.83 L (3.80-5.40) m/uL Hgb 7.2 L (11.4-16.0) gm/dL Hct 24.6 L (34.0-46.0) % MCHC 29.1 L (31.0-37.0) g/dL RDW 18.3 H (11.5-15.5) % Plt Count 140 L (150-450) k/uL Lymphocytes # 0.7 L (1.0-4.8) k/uL ABG pCO2 46 H (35-45) mmHg ABG pO2 72 L (83-108) mmHg ABG HCO3 29 H (21-25) mmol/L ABG Total CO2 31 H (19-24) mmol/L Potassium 3.4 L (3.5-5.1) mmol/L BUN 47 H (7-17) mg/dL Creatinine 1.80 H (0.52-1.04) mg/dL Glucose 107 H (74-99) mg/dL POC Glucose (mg/dL) (75-99) mg/dL Calcium 8.3 L (8.4-10.2) mg/dL Phosphorus 5.5 H (2.5-4.5) mg/dL Total Protein (6.3-8.2) g/dL Methylmalonic Acid (<0.40) umol/L 11/08/17 11/08/17 Range/Units 05:30 12:04 RBC (3.80-5.40) m/uL Hgb (11.4-16.0) gm/dL Hct (34.0-46.0) % MCHC (31.0-37.0) g/dL RDW (11.5-15.5) % Plt Count (150-450) k/uL Lymphocytes # (1.0-4.8) k/uL ABG pCO2 (35-45) mmHg ABG pO2 (83-108) mmHg ABG HCO3 (21-25) mmol/L ABG Total CO2 (19-24) mmol/L Potassium (3.5-5.1) mmol/L BUN (7-17) mg/dL Creatinine (0.52-1.04) mg/dL Glucose (74-99) mg/dL POC Glucose (mg/dL) 122 H (75-99) mg/dL Calcium (8.4-10.2) mg/dL Phosphorus (2.5-4.5) mg/dL Total Protein 5.2 L (6.3-8.2) g/dL Methylmalonic Acid (<0.40) umol/L Assessment and Plan Plan: Acute on chronic hypoxic respiratory failure, mulitfactorial - CHF, R lung collapase s/p bronch, right-sided pleural effusion -Pulmonary following, vent management -Guardianship established, case d/w guardian, plan for trach and PEG today -Currently trying to wean off ventilator, if weaning failed patient will need trach and PEG placement -Due to suspected PE patient was treated with heparin drip initially but that was DC'd on 11/01 secondary to drop in hemoglobin. Patient was unable to tolerate VQ scan or CTA of the chest. Acute exacerbation of diastolic CHF with ejection fraction 50-55% -Continue with Lasix 80 mg 3 times a day. - BB - ARB on hold due to JOHN JOHN on CKD stage III, with vancomycin toxicity, currently receiving dialysis - HD per nephrology -Renally dose medications -Continue with Lasix as above Left Lower extremity wound growing out Klebsiella and Pseudomonas - ID recs - Off loading - Ceftazadime Anemia of chronic disease on top of iron deficiency anemia - continue aranesp - FE replacement - follow intermittent CBC Thrombocytopenia -Likely multifactorial -Follow CBC Diabetes mellitus type 2 -A1c 5.4 - SSI - Follow BS Hypertension,elevated - resume BB, continue to hold ARB, Hydralazine, and Norvasc - follow BP Atherosclerotic coronary artery disease -ASA, lipitor Social issues -Daughter's estranged from the patient, we have been unable to get ahold of the brother, currently looking for a public guardian to assist with getting an trach and PEG. DVT prophylaxis: heparin SC Discussed with: Nursing Anticipated discharge: unknown Anticipated discharge place: Likely will need LTAC A total of 35 minutes was spent on the care of this complex patient more than 50 % of the time was spent in counseling and care coordination.
--- NOTE | 2017-11-08 14:18 | P.PN ---
Subjective Progress Note Date: 11/08/17 65-year-old female patient is being seen in follow-up on 11/04/2017. This patient is morbidly obese with a BMI 33.9. She is in the intensive care is with acute on top of chronic history failure most likely on the basis of massive fluid overload. This morning, she is assist-control mode of ventilation at the rate of 20 with tidal volume of 400 and FiO2 of 50% with a PEEP of 10. Chest x-ray shows a right-sided pleural effusion. ET tube is in a good location. The blood gas showed a pH of 7.39 with a pCO2 of 46 and pO2 of 70 and this was on FiO2 of 50%. The patient is sedated with propofol at a dose of 50 g per KG per minute. She can arouse upon given a sedation holiday. In terms of her fluid overload, the patient has already received 2 sessions of hemodialysis 3 temporary dialysis catheter inserted in the right IJ. I discussed the case with nephrology today. We decided to hold off on dialysis as the patient is producing adequate amount of urine output while being on Lasix 83 g IV push every 12 hours. The patient is improving in terms of urine output and she is ready produced 1.9 L of urine output since morning. The creatinine from today's at 1.9 and the rest of the electrodes are all within normal limits. No significant acidosis. Bronchoscopy was done earlier and the patient did not reveal any significant microbial growth and the bronchioloalveolar lavage was also negative. Patient is on IV Fortaz and infectious disease on the case regarding the lower extremity wounds. On 11/05/2017 I'm seeing this patient for a follow-up. The patient is sedated and intubated on a mechanical ventilator. She is an assist-control mode of ventilation at the rate of 12 and FiO2 of 50% and a PEEP of 8 with a tidal volume of 400. She is was sedated with Diprivan and she is calm and comfortable. No significant orotracheal secretion. Chest x-ray showing a large right-sided pleural effusion and his tube is in a good location. The blood gas showed a pH of 7.4 with a pCO2 of 44 and pO2 of 63. We held off on dialysis yesterday as the patient is improving in terms of urine output. She is producing almost 50 mL an hour and she is on Lasix 80 mg IV push every 8 hours. The net fluid balance is -697 mL over the past 24 hours. We have contemplated PEG and trach. We will also contemplated chest tube insertion however we were not successful and obtaining consent. We're the process of getting a legal guardian at this point to undergo this procedures. Unfortunately nothing much can be done without any consent knowing that all of these procedures are not life saving or do not being done for immediate life- threatening conditions. The patient is not having any fever. No leukocytosis. Hemoglobin is at 7. Creatinine is down to 2. No pressors for now. Tolerating the tube feeds. Antibiotic coverage includes IV Fortaz and clindamycin. No other significant events over the past 24 hours for now. On 11/06/2017 I'm seeing this patient in the intensive care unit in a follow- up. We were able to finally get a public guardian for this patient. As mentioned she want to be a full code and based on that the public guardian is agreeable to any further intervention including a PEG and a trach. My intention is to give the patient is sedation holiday for a longest period of time and assess the patient's underlying mental status. I would like to see some response and alertness from this patient off sedation. At the same time would like to get this patient another session of ultrafiltration together as dry as possible in consideration for possible weaning/extubation. If this fails , the alternative will be long-term PEG and trach. On today's chest x-ray, the patient is small lung volumes and the patient continues to have a right-sided pleural effusion. She remains on assist control mode mode of ventilation. She is on a volume cycle with a tidal volume of 400 and FiO2 of 50% and a PEEP of 5. The blood gases from this morning showed a pH of 7.4 with a pCO2 of 44 and pO2 of 60 and this was on the 50% FiO2. The patient is on no pressors. The patient is afebrile. The patient is covered with broad-spectrum antibiotics. ID is on the case. Renal function continues to be impaired with a creatinine of 2.0. The patient underwent ultrafiltration yesterday with removal of 3 L and another session of ultrafiltration will be done today and this was coordinated with nephrology. She is afebrile. She is tolerating her tube feeds. She is producing good urine output while on IV Lasix. Otherwise no other significant events over the past 24 hours. On 11/07/2017, the patient remains in intensive care unit intubated on a mechanical ventilator. I was very close to consider extubating this patient however is unaffected that she was started on an FiO2 of 60% and based on her weakness and poor ability to clear the rest or secretions, decided not to. I decided to give this patient another day on a mechanical ventilator during which I'm going to give her another session of ultrafiltration diuresis with IV Lasix and optimize further volume status and consider possibility of extubation today. This will be a very difficult extubation. The patient may very well failed extubation. Alternative would be long-term mechanical ventilation through a tracheostomy tube which I have ordered the agreed upon with her legal guardian. I would like however to try at least an extubation on this patient once she is fully dialyzed and diuresis. Based on this, it kept on the sedation this morning. She was able to arouse from her sedation to the point where she was following simple commands. She remains extremely weak and upper and lower extremities. Ultrafiltration will be done today and the goal be removal of 3 L of IV fluids. She is producing adequate amount of urine output and she is still on IV Lasix. Renal function from today shows a creatinine of 2.1. As far as vent support, the patient is still on the same vent setting within assist-control of 20, tidal volume of 400 with an FiO2 of 60% and a PEEP of 5. Her morning blood gases showed a pH of 7.38 with a pCO2 of 46 and pO2 of 85. I was able to cut down the FiO2 down to 50% and she maintain a saturation above 90%. Chest x-ray findings are still the same and the patient has a right- sided pleural effusion. Lung volumes are essentially small at this point in time. She is tolerating her tube feeds. We will make it final decision on extubation versus long-term PEG and trach and long-term mechanical ventilation with the next 24 hours. I am inclined to at least give her a trial of extubation prior to going to a long-term vent management system especially with her poor baseline performance and functional status and poor long-term prognosis. She is afebrile. No other significant events occurred over the past 24 hours. On 11/08/2017, I'm seeing this patient for a follow-up. I decided not to extubate the patient. The patient did not wake up appropriately and I do not think she had the strength on the motor function or diabetic to clear rest or secretions if extubation was performed. Based on that the patient was kept on a mechanical ventilator throughout the night and earlier this morning the patient was taken to the operating room and she underwent a PEG and tracheostomy tube insertion. This was done by Dr. Mccarty. The patient is back to the intensive care unit and the patient is currently being weaned off the sedation for now. She is hemodynamically stable. Chest x-ray shows significant opacification of the right lung and this was noted as the patient is having on and off right-sided pleural effusion in addition to some underlying atelectasis at the chest x-ray shows volume loss in addition to pleural effusion. Based on this, I discussed the case with interventional radiology and we decided to receiving the pigtail catheter insertion at the bedside under ultrasound guidance. This will be likely done today. Meanwhile, the patient is hemodynamically stable. Her last dialysis and ultrafiltration was done yesterday. The patient is in a negative fluid balance. The patient is producing adequate amount of urine output. The patient is an assist-control mode at the rate of 20 with tidal volume of 400 and FiO2 of 50% and a PEEP of 5 and a morning blood gases showed a pH of 7.42 with a pCO2 of 46 and pO2 of 72. The creatinine is at 1.8. Rest of the electrodes are within normal limits and a potassium level needs to be replaced. She remains on IV Lasix and she is producing adequate urine output. Objective - Vital Signs Vital signs: Vital Signs Temp 98.1 F 11/08/17 12:00 Pulse 59 L 11/08/17 13:00 Resp 20 11/08/17 13:00 BP 110/48 11/08/17 13:00 Pulse Ox 100 11/08/17 13:00 Intake & Output 11/07/17 11/08/17 11/08/17 18:59 06:59 18:59 Intake Total 428.456 492 406.339 Output Total 1300 965 330 Balance -871.544 -473 76.339 Weight 161.5 kg 160.5 kg 160.5 kg Intake: IV 158 192 208 0.9 110 120 40 Clindamycin 600 mg In 50 Dextrose 5% in Water 50 ml @ 100 mls/hr IVPB ONCE ONE Rx#:[id number] cefTAZidime 1 gm In 50 Sodium Chloride 0.9% 50 ml @ 100 mls/hr IVPB Q12HR [facility] Rx#:[id number] pressure bag 48 72 18 Intake, IV Titration 84.456 300 198.339 Amount Propofol 1,000 mg In 84.456 300 198.339 Empty Bag 1 bag @ Titrate IV .Q0M [facility] Rx#: [id number] Tube Feeding 156 Other 30 Output: Urine 1300 965 320 Estimated Blood Loss 10 Other: Voiding Method Indwelling Catheter Indwelling Catheter Indwelling Catheter # Voids 1 ABP, PAP, CO, CI - Last Documented Arterial Blood Pressure 129/43 - Exam No acute distress, sedated, and the patient has a tracheostomy tube in place.. Sedated with Diprivan, comfortable and she shows no signs of any respiratory distress HEENT examination is grossly unremarkable. Mucous membranes are moist. The patient a tracheostomy tube in place Neck supple. Full range of motion. No adenopathy thyromegaly or neck vein distention. Cardiovascular examination reveals regular rhythm rate. S1-S2 normal. No S3 or S4. No discernible murmur noted. Heart sounds are very distant. Lungs reveal severely diminished breath sounds bilaterally, right greater than left. There are bilateral coarse rhonchi. Crackles are noted at both bases. No wheezes are appreciated. Very little air entry on the right side noted. Breath sounds are about what they were the day before. There is not been much change. Abdominal exam revealed normal bowel sounds. The abdomen was soft, non-tender, and without masses, organomegaly, or appreciable enlargement of the abdominal aorta. The PEG tube site is dry clean and intact at this point in time Extremities are intact. Chronic lower extremity edema is noted. She also is chronic venous stasis changes with hyperpigmentation. Heels are bandaged. Slightly improved edema of the lower extremities is noted. 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 Left heel measures at 2.4 x 3.5 x 0.2 cm right heel ulceration measuring at 2 x 2 x 0.2 total contact cast was removed Skin is without rash or lesion. See the lower extremity examination as mentioned above Neurologic examination reveals that the patient is arousable off the sedation. She is deeply sedated as the patient arrived from the operating room and currently the patient is receiving sedation holiday. - Labs CBC & Chem 7: 11/08/17 05:30 11/08/17 05:30 Labs: Abnormal Lab Results - Last 24 Hours (Table) 11/06/17 11/07/17 11/07/17 Range/Units 04:15 18:42 23:35 RBC (3.80-5.40) m/uL Hgb (11.4-16.0) gm/dL Hct (34.0-46.0) % MCHC (31.0-37.0) g/dL RDW (11.5-15.5) % Plt Count (150-450) k/uL Lymphocytes # (1.0-4.8) k/uL ABG pCO2 (35-45) mmHg ABG pO2 (83-108) mmHg ABG HCO3 (21-25) mmol/L ABG Total CO2 (19-24) mmol/L Potassium (3.5-5.1) mmol/L BUN (7-17) mg/dL Creatinine (0.52-1.04) mg/dL Glucose (74-99) mg/dL POC Glucose (mg/dL) 141 H 121 H (75-99) mg/dL Calcium (8.4-10.2) mg/dL Phosphorus (2.5-4.5) mg/dL Total Protein (6.3-8.2) g/dL Methylmalonic Acid 2.18 H (<0.40) umol/L 11/08/17 11/08/17 11/08/17 Range/Units 04:39 05:30 05:30 RBC 2.83 L (3.80-5.40) m/uL Hgb 7.2 L (11.4-16.0) gm/dL Hct 24.6 L (34.0-46.0) % MCHC 29.1 L (31.0-37.0) g/dL RDW 18.3 H (11.5-15.5) % Plt Count 140 L (150-450) k/uL Lymphocytes # 0.7 L (1.0-4.8) k/uL ABG pCO2 46 H (35-45) mmHg ABG pO2 72 L (83-108) mmHg ABG HCO3 29 H (21-25) mmol/L ABG Total CO2 31 H (19-24) mmol/L Potassium 3.4 L (3.5-5.1) mmol/L BUN 47 H (7-17) mg/dL Creatinine 1.80 H (0.52-1.04) mg/dL Glucose 107 H (74-99) mg/dL POC Glucose (mg/dL) (75-99) mg/dL Calcium 8.3 L (8.4-10.2) mg/dL Phosphorus 5.5 H (2.5-4.5) mg/dL Total Protein (6.3-8.2) g/dL Methylmalonic Acid (<0.40) umol/L 11/08/17 11/08/17 Range/Units 05:30 12:04 RBC (3.80-5.40) m/uL Hgb (11.4-16.0) gm/dL Hct (34.0-46.0) % MCHC (31.0-37.0) g/dL RDW (11.5-15.5) % Plt Count (150-450) k/uL Lymphocytes # (1.0-4.8) k/uL ABG pCO2 (35-45) mmHg ABG pO2 (83-108) mmHg ABG HCO3 (21-25) mmol/L ABG Total CO2 (19-24) mmol/L Potassium (3.5-5.1) mmol/L BUN (7-17) mg/dL Creatinine (0.52-1.04) mg/dL Glucose (74-99) mg/dL POC Glucose (mg/dL) 122 H (75-99) mg/dL Calcium (8.4-10.2) mg/dL Phosphorus (2.5-4.5) mg/dL Total Protein 5.2 L (6.3-8.2) g/dL Methylmalonic Acid (<0.40) umol/L Microbiology - Last 24 Hours (Table) 11/01/17 11:01 Fungal Culture - Preliminary Bronchial Washings - Right Kaley albicans Assessment and Plan Plan: Assessment 1 acute on top of chronic hypoxic history failure likely on the basis of CHF/ fluid overload and development of a large right-sided pleural effusion. The patient failed to wean off the mechanical ventilator. This is for several reasons. First, the patient never Dr. pulmonary condition where she couldn't extubate and at the same time she had diminished level of consciousness and significant motor weakness and significant concern for inability to protect airway post extubation. For that reason we proceeded with the tracheostomy is out. The tracheostomy was done this morning. With the process of weaning this patient off sedation for now. 2 right lung collapse, post bronchoscopy on 11/01/2017 with a bronchioloalveolar lavage that showed no microbial growth and the patient on empiric antibiotic coverage with IV cefepime. The chest x-ray from today is showing any opacification of the right lung probably a combination of atelectasis and effusion and the plan is to insert a pigtail catheter to evacuate any residual pleural effusion on the right. 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 Monitor mentation. Intervention radiology to proceed with a pigtail catheter insertion under ultrasound guidance at the bedside and attempt to evacuate any residual pleural effusion on the right. Monitor I's. Continue IV Lasix. Monitor renal function. No dialysis for today. Replace potassium. Continue IV cefepime. We'll continue to follow and make further recommendations as we progress. She'll feeds will be started within 24 hours of PEG tube insertion. Critically care evaluation, more than 30 minutes. Time with Patient: Greater than 30
--- NOTE | 2017-11-08 14:47 | P.PN ---
Subjective Progress Note Date: 11/08/17 Principal diagnosis: Respiratory Failure Patient seen in ICU still on ventilator and resting Objective - Vital Signs Vital signs: Vital Signs Temp 98.1 F 11/08/17 12:00 Pulse 60 11/08/17 14:00 Resp 20 11/08/17 14:00 BP 119/53 11/08/17 14:00 Pulse Ox 100 11/08/17 14:00 Intake & Output 11/07/17 11/08/17 11/08/17 18:59 06:59 18:59 Intake Total 428.456 492 432.339 Output Total 1300 965 610 Balance -871.544 -473 -177.661 Weight 161.5 kg 160.5 kg 160.5 kg Intake: IV 158 192 234 0.9 110 120 60 Clindamycin 600 mg In 50 Dextrose 5% in Water 50 ml @ 100 mls/hr IVPB ONCE ONE Rx#:[id number] cefTAZidime 1 gm In 50 Sodium Chloride 0.9% 50 ml @ 100 mls/hr IVPB Q12HR [facility] Rx#:[id number] pressure bag 48 72 24 Intake, IV Titration 84.456 300 198.339 Amount Propofol 1,000 mg In 84.456 300 198.339 Empty Bag 1 bag @ Titrate IV .Q0M [facility] Rx#: [id number] Tube Feeding 156 Other 30 Output: Urine 1300 965 600 Estimated Blood Loss 10 Other: Voiding Method Indwelling Catheter Indwelling Catheter Indwelling Catheter # Voids 1 ABP, PAP, CO, CI - Last Documented Arterial Blood Pressure 146/49 - Exam Vented Trach Edema - Labs CBC & Chem 7: 11/08/17 05:30 11/08/17 05:30 Labs: Abnormal Lab Results - Last 24 Hours (Table) 11/06/17 11/07/17 11/07/17 Range/Units 04:15 18:42 23:35 RBC (3.80-5.40) m/uL Hgb (11.4-16.0) gm/dL Hct (34.0-46.0) % MCHC (31.0-37.0) g/dL RDW (11.5-15.5) % Plt Count (150-450) k/uL Lymphocytes # (1.0-4.8) k/uL ABG pCO2 (35-45) mmHg ABG pO2 (83-108) mmHg ABG HCO3 (21-25) mmol/L ABG Total CO2 (19-24) mmol/L Potassium (3.5-5.1) mmol/L BUN (7-17) mg/dL Creatinine (0.52-1.04) mg/dL Glucose (74-99) mg/dL POC Glucose (mg/dL) 141 H 121 H (75-99) mg/dL Calcium (8.4-10.2) mg/dL Phosphorus (2.5-4.5) mg/dL Total Protein (6.3-8.2) g/dL Methylmalonic Acid 2.18 H (<0.40) umol/L 11/08/17 11/08/17 11/08/17 Range/Units 04:39 05:30 05:30 RBC 2.83 L (3.80-5.40) m/uL Hgb 7.2 L (11.4-16.0) gm/dL Hct 24.6 L (34.0-46.0) % MCHC 29.1 L (31.0-37.0) g/dL RDW 18.3 H (11.5-15.5) % Plt Count 140 L (150-450) k/uL Lymphocytes # 0.7 L (1.0-4.8) k/uL ABG pCO2 46 H (35-45) mmHg ABG pO2 72 L (83-108) mmHg ABG HCO3 29 H (21-25) mmol/L ABG Total CO2 31 H (19-24) mmol/L Potassium 3.4 L (3.5-5.1) mmol/L BUN 47 H (7-17) mg/dL Creatinine 1.80 H (0.52-1.04) mg/dL Glucose 107 H (74-99) mg/dL POC Glucose (mg/dL) (75-99) mg/dL Calcium 8.3 L (8.4-10.2) mg/dL Phosphorus 5.5 H (2.5-4.5) mg/dL Total Protein (6.3-8.2) g/dL Methylmalonic Acid (<0.40) umol/L 18 11/08/17 Range/Units 05:30 12:04 RBC (3.80-5.40) m/uL Hgb (11.4-16.0) gm/dL Hct (34.0-46.0) % MCHC (31.0-37.0) g/dL RDW (11.5-15.5) % Plt Count (150-450) k/uL Lymphocytes # (1.0-4.8) k/uL ABG pCO2 (35-45) mmHg ABG pO2 (83-108) mmHg ABG HCO3 (21-25) mmol/L ABG Total CO2 (19-24) mmol/L Potassium (3.5-5.1) mmol/L BUN (7-17) mg/dL Creatinine (0.52-1.04) mg/dL Glucose (74-99) mg/dL POC Glucose (mg/dL) 122 H (75-99) mg/dL Calcium (8.4-10.2) mg/dL Phosphorus (2.5-4.5) mg/dL Total Protein 5.2 L (6.3-8.2) g/dL Methylmalonic Acid (<0.40) umol/L Microbiology - Last 24 Hours (Table) 11/01/17 11:01 Fungal Culture - Preliminary Bronchial Washings - Right Kaley albicans Assessment and Plan Plan: Assessment and Plan (1) Abnormal laboratory test result Narrative/Plan: Lab review shows an IgG kappa light chain paraprotein elevation, immunofixation is suggestive of acute phase reactant. In patients severely acutely ill condition further work up for myeloma at this time-labs, bone scan-is not prudent as she is intubated and in an acute inflammatory state because of multiple complex medical conditions. Dr. Mcgovern did discussed case with Nephrology. Labs will be rechecked as pt conditions improves and further work up as necessary. Continue current acute management of pt per [employer]. - Will continue to await patient improvement for further work-up and in mean time continue to follow along with you.
--- NOTE | 2017-11-08 15:43 | XR ---
EXAMINATION TYPE: XR chest 1V DATE OF EXAM: 11/08/2017 CLINICAL HISTORY: Post chest tube insertion TECHNIQUE: Single AP portable semiupright view of the chest is obtained. COMPARISON: Chest x-ray from earlier today and older studies FINDINGS: There is new right midlung pleural drainage pigtail catheter extending inferiorly. There i s new tracheostomy tube felt satisfactory in position with interval removal of endotracheal and oroga stric tubes. The right internal jugular central venous catheter, and right-sided PICC line are stable . There is persistent near complete opacification of right thorax with minimal aerated lung which is mo re prominent versus most recent study. Mediastinal shift to the right is felt present. Left lung chris ins predominantly clear with perhaps patchy basilar atelectasis. Cardiac silhouette size is stable an d upper limits of normal. Abrupt cut off the bronchus intermedius level is noted currently. There is been continued progression of opacification since admission. IMPRESSION: New tracheostomy tube felt satisfactory. New right-sided pleural drainage pigtail cathete r is present. There is further progression of right lung opacity with increasing right-sided volume l oss suggesting worsening atelectasis and/or infiltrate. Abrupt cutoff of the bronchus intermedius is noted. Correlate clinically, consider mucous plugging.
[2017-11-08 16:18] LABS: Appearance,BF Hazy; Color,BF Yellow; Nucleated Cells, Body Fluid 144 /uL; RBC, Body Fluid 326 /uL
[2017-11-08 16:29] LABS: Mononuclear WBC,Body Fluid 90 %; Polynuclear WBC,Body Fluid 10 %; Total Cells Counted,Body Fluid 100
--- NOTE | 2017-11-08 17:07 | US ---
EXAMINATION TYPE: US guided chest tube insertion DATE OF EXAM: 11/08/2017 HISTORY: Pleural effusion FINDINGS: Maximal barrier technique was utilized. The skin overlying a suitable path to the fluid wa s localized with ultrasound and the overlying skin prepped and draped. Lidocaine was used for local anesthesia. A skin pramod made with a scalpel. Access was gained under direct ultrasound guidance to the fluid with a 21-gauge needle. Ultrasound was utilized using sterile technique. A 0.018 inch wire was advanced. Access site was dilated and an 8.5-Malaysian catheter advanced into the seroma. 30cc se colleen fluid returned. Catheter fixed to the skin. Hemostasis achieved. No immediate complication an d the patient remained in stable condition. IMPRESSION: STATUS POST ULTRASOUND GUIDED SEROMA DRAINAGE, THIS PROCEDURE WAS PERFORMED BY THE UNDERS IGNED. Specimen obtained for laboratory analysis.
[2017-11-08] MEDS: ASPIRIN 81 MG PO SCH (17:30)
[2017-11-08 18:03] LABS: Glucose,Whole Blood 113 mg/dL (75-99)
[2017-11-08] MEDS: ATORVASTATIN 10 MG TAB PO SCH (20:38)
[2017-11-08] MEDS ORDERED: POTASSIUM CHLORIDE 20 MEQ in WATER FOR INJECTION 1 100ML.BAG IVPB STA (21:49)
--- NOTE | 2017-11-08 23:38 | P.PN ---
Subjective Progress Note Date: 11/08/17 66 year old woman with superobesity presents to the ER with marked increase of shortness of breath, with some chest pain also occurring. At admission there was evidence of worsening of her chronic renal failure and significant volume overload, with some diuresis she is already receiving relief from her extensive shortness of breath. At this time she is not complaining of any chest pain. She was found and she has been seen by pulmonary critical care, and there is a possibility of a thoracentesis future. At this time she denies other acute new complaints. A total contact cast is in place on the left leg for the pressure ulcer to the left heel is negative for any difficulties at all. The chronic ulcerations of the right heel is also without pain. She is aware of improved urinary output since being on the higher doses of Lasix. As noted she has a history of significant underlying coronary artery disease with a history of congestive heart failure with known diastolic dysfunction. She is feeling slightly better at this time but certainly not nearly her baseline. She does have significant debility. 10/28/2017 the patient has declined further today. She is requiring BiPAP for oxygen saturation, she is somewhat confused but does seem to be comfortable. She is unable to complain of any new symptoms 10/29/2017 the patient is much more awake and alert today. Her BiPAP is in place and she is no longer confused. She recognized me by name and knows that she is at the hospital. She is denying significant discomfort in her shortness of breath is improved. October 31, 2017 patient patient is worsen she is now developed respiratory failure and required intubation with mechanical ventilation and is sedated. She' s been seen by nephrology and with volume overload is receiving hemodialysis. The hope is that with dialysis she'll improve her pulmonary status from improved volume status. No fevers are noted. No new positive cultures. 11/01/2017 patient remained intubated sedated and mechanically ventilated with respiratory failure. She is receiving another course of hemodialysis which will hopefully remove a total of 6 L of fluid over this 3 day time frame. She still remains grossly volume overloaded. She fortunately does have some urinary output despite her renal failure that appears to multifactorial including vancomycin therapy. Psychosocial has had great difficulties, it appears that the social workers will ask for guardianship from the courts coming Saturday to make further plans. 11/04/2017 patient remains in intensive care unit intubated sedated and mechanically ventilated. Dialysis has helped remove some of her extensive edema and will have further dialysis tomorrow.her acidosis is improved, leukocytosis improved still has significant anemia. No new positive cultures. 11/07/2017 patient remains in intensive care unit intubated sedated and mechanically ventilated. She remains on dialysis to improve her gross volume overload. There was attempts today to hold sedation and potentially extubate and monitor status. However off sedation she is not following commands and has not had any improvement of her mental status. Appears to be plans for tracheostomy and PEG tube placement tomorrow.will likely then need LTAC placement. 11/08/2017 patient is now status post tracheostomy and PEG tube placement. She also had extensive right pleural effusion and a pigtail catheters been placed in large volumes of pleural fluid have been drained. Patient continues with hemodialysis. No new acute changes are noted, no vasopressor therapy today. Objective - Vital Signs Vital signs: Vital Signs Temp 94.0 F L 11/08/17 20:00 Pulse 59 L 11/08/17 23:20 Resp 20 11/08/17 23:00 BP 124/60 11/08/17 18:00 Pulse Ox 99 11/08/17 23:00 Intake & Output 11/08/17 11/08/17 11/09/17 06:59 18:59 06:59 Intake Total 492 601.071 152 Output Total 965 2470 540 Balance -473 -1868.929 -388 Weight 160.5 kg 160.5 kg Intake: IV 192 299 152 0.9 120 110 40 Clindamycin 600 mg In 50 Dextrose 5% in Water 50 ml @ 100 mls/hr IVPB ONCE ONE Rx#:[id number] Potassium Chloride 20 meq 50 In Water For Injection 1 100ml.bag @ 50 mls/hr IVPB ONCE STA Rx#: [id number] cefTAZidime 1 gm In 50 50 Sodium Chloride 0.9% 50 ml @ 100 mls/hr IVPB Q12HR [facility] Rx#:[id number] pressure bag 72 39 12 Intake, IV Titration 300 302.071 Amount Propofol 1,000 mg In 300 302.071 Empty Bag 1 bag @ Titrate IV .Q0M [facility] Rx#: [id number] Output: Chest Tube Drainage 1350 Pleural Catheter Right 1350 Urine 965 1110 540 Estimated Blood Loss 10 Other: Voiding Method Indwelling Catheter Indwelling Catheter Indwelling Catheter ABP, PAP, CO, CI - Last Documented Arterial Blood Pressure 111/45 - Exam 66-year-old woman with superobesity is now intubated sedated and mechanically ventilated Head exam was generally normal. There was no scleral icterus or corneal arcus. Mucous membranes were moist. Neck was supple and without jugular venous distension, thyromegaly, or carotid bruits. Carotids were easily palpable bilaterally. There was no adenopathy. Lungs sounds are diminished bilaterally especially in the right lung base along with some dullness to percussion Heart sounds are regular, positive S1-S2 and there is systolic ejection murmur grade 3/6 systolic the precordium Abdominal exam revealed normal bowel sounds. The abdomen was soft, non-tender, and without masses, organomegaly, or appreciable enlargement of the abdominal aorta. Extremities revealed +1-2 pitting edema there is no cyanosis or clubbing, 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, there is also evidence of chronic venous stasis and lower extremities bilaterally. the heel ulcerations are improving now that she is in the ICU and is not walking. Neurologic sedated on the ventilator - Labs CBC & Chem 7: 11/08/17 05:30 11/08/17 20:50 Labs: Abnormal Lab Results - Last 24 Hours (Table) 11/06/17 11/07/17 11/08/17 Range/Units 04:15 23:35 04:39 RBC (3.80-5.40) m/uL Hgb (11.4-16.0) gm/dL Hct (34.0-46.0) % MCHC (31.0-37.0) g/dL RDW (11.5-15.5) % Plt Count (150-450) k/uL Lymphocytes # (1.0-4.8) k/uL ABG pCO2 46 H (35-45) mmHg ABG pO2 72 L (83-108) mmHg ABG HCO3 29 H (21-25) mmol/L ABG Total CO2 31 H (19-24) mmol/L Potassium (3.5-5.1) mmol/L BUN (7-17) mg/dL Creatinine (0.52-1.04) mg/dL Glucose (74-99) mg/dL POC Glucose (mg/dL) 121 H (75-99) mg/dL Calcium (8.4-10.2) mg/dL Phosphorus (2.5-4.5) mg/dL Total Protein (6.3-8.2) g/dL Methylmalonic Acid 2.18 H (<0.40) umol/L 11/08/17 11/08/17 11/08/17 Range/Units 05:30 05:30 05:30 RBC 2.83 L (3.80-5.40) m/uL Hgb 7.2 L (11.4-16.0) gm/dL Hct 24.6 L (34.0-46.0) % MCHC 29.1 L (31.0-37.0) g/dL RDW 18.3 H (11.5-15.5) % Plt Count 140 L (150-450) k/uL Lymphocytes # 0.7 L (1.0-4.8) k/uL ABG pCO2 (35-45) mmHg ABG pO2 (83-108) mmHg ABG HCO3 (21-25) mmol/L ABG Total CO2 (19-24) mmol/L Potassium 3.4 L (3.5-5.1) mmol/L BUN 47 H (7-17) mg/dL Creatinine 1.80 H (0.52-1.04) mg/dL Glucose 107 H (74-99) mg/dL POC Glucose (mg/dL) (75-99) mg/dL Calcium 8.3 L (8.4-10.2) mg/dL Phosphorus 5.5 H (2.5-4.5) mg/dL Total Protein 5.2 L (6.3-8.2) g/dL Methylmalonic Acid (<0.40) umol/L 11/08/17 11/08/17 Range/Units 12:04 18:01 RBC (3.80-5.40) m/uL Hgb (11.4-16.0) gm/dL Hct (34.0-46.0) % MCHC (31.0-37.0) g/dL RDW (11.5-15.5) % Plt Count (150-450) k/uL Lymphocytes # (1.0-4.8) k/uL ABG pCO2 (35-45) mmHg ABG pO2 (83-108) mmHg ABG HCO3 (21-25) mmol/L ABG Total CO2 (19-24) mmol/L Potassium (3.5-5.1) mmol/L BUN (7-17) mg/dL Creatinine (0.52-1.04) mg/dL Glucose (74-99) mg/dL POC Glucose (mg/dL) 122 H 113 H (75-99) mg/dL Calcium (8.4-10.2) mg/dL Phosphorus (2.5-4.5) mg/dL Total Protein (6.3-8.2) g/dL Methylmalonic Acid (<0.40) umol/L Microbiology - Last 24 Hours (Table) 11/08/17 14:50 Gram Stain - Preliminary Pleural Fluid Body Fluid Culture - Preliminary 11/08/17 14:50 Anaerobic Culture - Preliminary Pleural Fluid 11/08/17 11:50 Urine Culture - Preliminary Urine,Catheterized 11/01/17 11:01 Fungal Culture - Preliminary Bronchial Washings - Right Kaley albicans Laboratory Results WBC 7.6 k/uL (3.8-10.6) 11/08/17 05:30 RBC 2.83 m/uL (3.80-5.40) L 11/08/17 05:30 Hgb 7.2 gm/dL (11.4-16.0) L 11/08/17 05:30 Hct 24.6 % (34.0-46.0) L 11/08/17 05:30 MCV 87.0 fL (80.0-100.0) 11/08/17 05:30 MCH 25.3 pg (25.0-35.0) 11/08/17 05:30 MCHC 29.1 g/dL (31.0-37.0) L 11/08/17 05:30 RDW 18.3 % (11.5-15.5) H 11/08/17 05:30 Plt Count 140 k/uL (150-450) L 11/08/17 05:30 Neutrophils % 76 % 11/08/17 05:30 Lymphocytes % 9 % 11/08/17 05:30 Monocytes % 8 % 11/08/17 05:30 Eosinophils % 5 % 11/08/17 05:30 Basophils % 0 % 11/08/17 05:30 Neutrophils # 5.8 k/uL (1.3-7.7) 11/08/17 05:30 Lymphocytes # 0.7 k/uL (1.0-4.8) L 11/08/17 05:30 Monocytes # 0.6 k/uL (0-1.0) 11/08/17 05:30 Eosinophils # 0.4 k/uL (0-0.7) 11/08/17 05:30 Basophils # 0.0 k/uL (0-0.2) 11/08/17 05:30 Manual Slide Review Performed 11/01/17 04:06 Hypochromasia Marked 11/08/17 05:30 Anisocytosis Slight 11/08/17 05:30 ESR 69 mm/hr (0-20) H 10/28/17 05:47 Retic Count 6.7 % (0.5-2.0) H 11/06/17 04:15 PT 9.6 sec (9.0-12.0) 11/08/17 12:05 INR 1.0 (<1.2) 11/08/17 12:05 APTT 133.7 sec (22.0-30.0) H* 11/01/17 06:30 D-Dimer 1.80 mg/L FEU (<0.60) H 10/25/17 13:20 Sample Site [place] 11/08/17 04:39 ABG pH 7.42 (7.35-7.45) 11/08/17 04:39 ABG pCO2 46 mmHg (35-45) H 11/08/17 04:39 ABG pO2 72 mmHg (83-108) L 11/08/17 04:39 ABG HCO3 29 mmol/L (21-25) H 11/08/17 04:39 ABG Total CO2 31 mmol/L (19-24) H 11/08/17 04:39 ABG O2 Saturation 95.2 % (94-97) 11/08/17 04:39 ABG Base Excess 4.8 mmol/L 11/08/17 04:39 Timothy Test Yes 11/08/17 04:39 FiO2 50 % 11/08/17 04:39 Sodium 137 mmol/L (137-145) 11/08/17 05:30 Potassium 3.8 mmol/L (3.5-5.1) 11/08/17 20:50 Chloride 101 mmol/L (98-107) 11/08/17 05:30 Carbon Dioxide 28 mmol/L (22-30) 11/08/17 05:30 Anion Gap 8 mmol/L 11/08/17 05:30 BUN 47 mg/dL (7-17) H 11/08/17 05:30 Creatinine 1.80 mg/dL (0.52-1.04) H 11/08/17 05:30 Est GFR (CKD-EPI)AfAm 34 (>60 ml/min/1.73 sqM) 11/08/17 05:30 Est GFR (CKD-EPI)NonAf 29 (>60 ml/min/1.73 sqM) 11/08/17 05:30 Glucose 107 mg/dL (74-99) H 11/08/17 05:30 POC Glucose (mg/dL) 113 mg/dL (75-99) H 11/08/17 18:01 POC Glu Cognos Report Developer ID 11/08/17 18:[address] Glu mg/dL 103 10/31/17 04:20 Hemoglobin A1c 5.2 % (4.0-6.0) 10/31/17 04:20 Plasma Lactic Acid Jamar <0.5 mmol/L (0.7-2.0) L 10/31/17 04:20 Calcium 8.3 mg/dL (8.4-10.2) L 11/08/17 05:30 Phosphorus 5.5 mg/dL (2.5-4.5) H 11/08/17 05:30 Magnesium 2.2 mg/dL (1.6-2.3) 11/08/17 05:30 Iron 27 ug/dL (50-170) L 11/06/17 04:15 TIBC 253 ug/dL (228-460) 11/06/17 04:15 Iron Saturation 10.67 (12.00-45.00) L 11/06/17 04:15 Ferritin 108.3 ng/mL (10.0-291.0) 11/06/17 04:15 Total Bilirubin 0.2 mg/dL (0.2-1.3) 11/07/17 04:00 AST 16 U/L (14-36) 11/07/17 04:00 ALT 47 U/L (9-52) 11/07/17 04:00 Alkaline Phosphatase 76 U/L (38-126) 11/07/17 04:00 Lactate Dehydrogenase 359 U/L (313-618) 11/08/17 05:30 Total Creatine Kinase 22 U/L (30-135) L 10/29/17 05:28 CK-MB (CK-2) 1.5 ng/mL (0.0-2.4) 10/29/17 05:28 CK-MB (CK-2) Rel Index 6.8 10/29/17 05:28 Troponin I <0.012 ng/mL (0.000-0.034) 10/26/17 05:40 C-Reactive Protein 14.6 mg/L (<10.0) H 10/28/17 05:47 NT-Pro-B Natriuret Pep 3960 pg/mL 10/25/17 13:20 Total Protein 5.2 g/dL (6.3-8.2) L 11/08/17 05:30 Total Protein (PEP) 6.1 g/dL (6.2-8.2) L 10/28/17 05:47 Albumin 2.6 g/dL (3.5-5.0) L 11/07/17 04:00 Albumin (PEP) 2.76 g/dL (3.80-4.90) L 10/28/17 05:47 Wmboo-7-Gxywrqsxs 0.45 g/dL (0.10-0.40) H 10/28/17 05:47 Mskqs-1-Ydgrimgtj 0.59 g/dL (0.60-1.00) L 10/28/17 05:47 Beta Globulins 1.38 g/dL (0.60-1.30) H 10/28/17 05:47 Gamma Globulins 0.92 g/dL (0.70-1.50) 10/28/17 05:47 PEP Interpretation SEE NOTE 10/28/17 05:47 Vitamin B12 609.0 pg/mL (200.0-944.0) 11/06/17 04:15 Methylmalonic Acid 2.18 umol/L (<0.40) H 11/06/17 04:15 RBC Folate 1,058 ng/mL (280 - 791) H 11/06/17 04:15 TSH 1.370 mIU/L (0.465-4.680) 10/31/17 04:20 Cortisol 24 ug/dL 10/31/17 04:20 Urine Color Red 10/30/17 18:45 Urine Appearance Turbid (Clear) H 10/30/17 18:45 Urine pH 5.5 (5.0-8.0) 10/30/17 18:45 Ur Specific [place] 1.015 (1.001-1.035) 10/30/17 18:45 Urine Protein 2+ (Negative) H 10/30/17 18:45 Urine Glucose (UA) Trace (Negative) H 10/30/17 18:45 Urine Ketones Negative (Negative) 10/30/17 18:45 Urine Blood Large (Negative) H 10/30/17 18:45 Urine Nitrite Negative (Negative) 10/30/17 18:45 Urine Bilirubin Negative (Negative) 10/30/17 18:45 Urine Urobilinogen <2.0 mg/dL (<2.0) 10/30/17 18:45 Ur Leukocyte Esterase Large (Negative) H 10/30/17 18:45 Urine RBC 113 /hpf (0-5) H 10/30/17 18:45 Urine WBC >182 /hpf (0-5) H 10/30/17 18:45 Urine WBC Clumps Many /hpf (None) H 10/30/17 18:45 Ur Squamous Epith Cells 1 /hpf (0-4) 10/28/17 02:27 Urine Bacteria Many /hpf (None) H 10/30/17 18:45 Granular Casts 129 /lpf (0) 10/30/17 18:45 Urine Yeast (Budding) Rare /hpf (None) H 10/28/17 02:27 Fluid Source Pleural 11/08/17 14:50 Fluid Color Yellow 11/08/17 14:50 Fluid Appearance Hazy 11/08/17 14:50 Fluid RBC 326 /uL 11/08/17 14:50 Fluid Nucleated Cells 144 /uL 11/08/17 14:50 Fluid Polynuclear WBCs 10 % 11/08/17 14:50 Fluid Mononuclear WBCs 90 % 11/08/17 14:50 Fluid Eosinophils 1 % 11/01/17 11:01 Random Vancomycin 19.5 ug/mL 11/05/17 04:12 Serum ALYCE Interpret SEE NOTE 10/28/17 05:47 DIANNE Screen NEGATIVE (NEGATIVE) 10/28/17 05:47 c-ANCA <1:20 Titer (<1:20) 10/25/17 13:00 p-ANCA <1:20 Titer (<1:20) 10/25/17 13:00 Complement C3 156.0 mg/dL (80.0-207.0) 10/28/17 05:47 Complement C4 33.6 mg/dL (10.0-53.0) 10/28/17 05:47 Tot Complement (CH50) 91 U/mL (42 - 95) 10/29/17 05:28 Free Inez LC, Quant 20.30 mg/dL (0.33-1.94) H 10/31/17 04:20 Free Lambda LC, Quant 2.79 mg/dL (0.57-2.63) H 10/31/17 04:20 Hepatitis A IgM Ab Non-Reactive (Non-Reactive) 10/28/17 05:47 Hep Bs Antigen Non-Reactive (Non-Reactive) 10/30/17 19:00 Hep Bs Antibody Non-Reactive (Non-Reactive) 10/30/17 19:00 Hep Bs Antibody, Quant 3.5 mIU/mL 10/30/17 19:00 Hep B Core IgM Ab Non-Reactive (Non-Reactive) 10/28/17 05:47 Hep C IgG Ab Non-Reactive (Non-Reactive) 10/28/17 05:47 Virus Source See Below 11/01/17 11:01 Viral Test See Below 11/01/17 11:01 Virus Analysis Interp See Below 11/01/17 11:01 Blood Type B Positive 11/07/17 07:25 Blood Type Recheck No 11/07/17 07:25 Antibody Screen NEGATIVE 11/07/17 07:25 Crossmatch See Detail 10/26/17 18:58 Spec Expiration Date 11/10/2017 - 5065 11/07/17 07:25 Microbiology 11/08/17 14:50 Pleural Fluid Gram Stain - Preliminary 11/08/17 14:50 Pleural Fluid Body Fluid Culture - Preliminary 11/08/17 14:50 Pleural Fluid Anaerobic Culture - Preliminary 11/08/17 11:50 Urine,Catheterized Urine Culture - Preliminary 11/01/17 11:01 Bronchial Washings - Right Fungal Culture - Preliminary Kaley albicans 11/01/17 11:01 Bronchial Washings - Right Gram Stain - Final 11/01/17 11:01 Bronchial Washings - Right Bronchial Washings Culture - Final Kaley albicans 10/31/17 21:15 Sputum Gram Stain - Final 10/31/17 21:15 Sputum Sputum Culture - Final Kaley albicans 11/01/17 11:01 Bronchial Washings - Right Acid Fast Bacilli Smear - Final 11/01/17 11:01 Bronchial Washings - Right Acid Fast Bacilli Culture - Preliminary 10/26/17 17:30 Blood Blood Culture - Final No Growth after 144 hours 10/30/17 18:45 Urine,Catheterized Urine Culture - Final 10/25/17 18:17 Blood Blood Culture Gram Stain - Final 10/25/17 18:17 Blood Blood Culture - Final Staphylococcus epidermidis 10/28/17 02:27 Urine,Voided Urine Culture - Final 10/26/17 20:41 Ankle - Right Gram Stain - Final 10/26/17 20:41 Ankle - Right Wound Culture - Final Klebsiella oxytoca Pseudomonas aeruginosa 10/25/17 18:17 Blood Blood Culture - Final Assessment and Plan (1) Diabetes mellitus type 2, uncontrolled, with complications Current Visit: No Status: Acute Priority: Medium Code(s): E11.8 - TYPE 2 DIABETES MELLITUS WITH UNSPECIFIED COMPLICATIONS; E11.65 - TYPE 2 DIABETES MELLITUS WITH HYPERGLYCEMIA SNOMED Code(s): 584089941 (2) Diabetic ulcer of heel Narrative/Plan: 66-year-old woman who has superobesity presented to Hospital from the extended care facility with increasing shortness of breath. If the admission there is evidence of fluid overload and worsening of her chronic diastolic congestive heart failure. It is noted that she has developed a right pleural effusion and has been seen by pulmonary medicine. Goal will be for further diuresis before any attempt of a thoracentesis. She this point and was more comfortable than admission, appears her chest pain has improved. Physical chronic ulcerations the left heel and a total contact cast is in place. This is removed tomorrow. The ulceration to the right heel has the Opticel silver in place which is adequate and can be changed every other day. She does have a chronic anemia that has worsened over the last year. This may be worsening her heart failure and will be further evaluated at this time. She is being treated for this significant infection to heal with intravenous vancomycin at the [facility]. Vancomycin will continue also had and Rocephin now based on prior culture results. Patient is a blood culture drawn it appears to be contamination would need no further ulceration of treatment unless there are further positive blood cultures. Given that she does not have fevers or chills it is not likely that she has a line sepsis. 10/28/2017 patient statuses worsened today. Her pulmonary status seems to have declined and she is requiring BiPAP for adequate oxygenation. She is more confused with her current respiratory difficulties. She however is not agitated and does not seem to be uncomfortable. BiPAP is reapplied and is being watched closely to try to keep into place. Blood culture contamination. Wound culture has gram-negative bacilli and at this time vancomycin is being continued to complete his course of therapy from the prior bony infection, Rocephin is being utilized until there is further culture data. Her prognosis is poor. 10/29/2017 the patient is improved today. With her BiPAP and place her mentation is clear. The ulceration of the left heel will be treated with the silver alginate dressing also. Antibiotic therapy will be altered from Rocephin to ceftazidime given the isolated Klebsiella and Pseudomonas. She continues to have difficulty with her renal failure is being followed by nephrology. She is yet to clear her last dose of antibiotic therapy (vancomycin ) that was given before her admission. The patient is very weak and will need to complete a course of physical therapy before she will be able to get back to her home setting. Nephrology is relating if she does not have further improvement they will then consider renal replacement therapy to improve her fracture volume overload chronic respiratory failure and acidosis. 10/31 2017 d the patient is now developed respiratory failure and is required intubation with sedation and mechanical ventilation. She is comfortable at this time and is well sedated. Receiving hemodialysis to improve her volume overload and her acidosis. The acute renal failure appears to be multifactorial and it is as she has been vancomycin therapy. 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 She is nearing the end of course of that treatment and with the renal failure the vancomycin level has remained high for the last several days and likely will be able to complete course of therapy without any further dosing. With the gram negatives being seen from the ankle culture Rocephin was added. This is transition to ceftazidime given the finding of pseudomonas at the site. 11/01/2017reveals the patient to remain on the ventilator is intubated and sedated, seems comfortable. Seething further courses of hemodialysis today. Goal is for further fluid removal to improve her volume overload status to improve her respiratory failure. Her sepsis appears to be stable. She will receive no further doses of vancomycin at this time still has adequate levels at this time. She had mucus plugging earlier in the day and a bronchoscopy was performed urgently. Cultures are pending which will further direct antimicrobial therapy as needed. Pathogens isolated from the leg Fortaz is being utilized with also cover pneumonia, still has therapeutic levels of vancomycin. 11/04/2017 patient remains in intensive care unit intubated sedated and mechanically ventilated. Does appear to be comfortable and with her several courses dialysis's had some improvement of her extensive edema and volume overload. Antimicrobial therapy as well as ceftazidime for the pathogens from the ankle ulceration. Vancomycin therapy has completed. Her creatinine is improved and is at 1.97 today. Social work team is working with the courts to have a guardian appointed to make the appropriate plans. 11/08/2017 patient has had a tracheostomy and PEG tube placed today. The patient is receiving antibiotic therapy with ceftazidime for gram-negative isolated from leg and for potential pneumonia. She is stable and hopefully with the tracheostomy and the pigtail catheter placed into the pleural space will be further improvement of her pulmonary status. Working with the guardian for placement in long-term care with ventilator care. Current Visit: Yes Status: Acute Priority: High Code(s): E11.621 - TYPE 2 DIABETES MELLITUS WITH FOOT ULCER; L97.409 - NON-PRS CHRONIC ULCER OF UNSP HEEL AND MIDFOOT W UNSP SEVERT SNOMED Code(s): 09279841 (3) Severe obesity (BMI >= 40) Current Visit: No Status: Acute Code(s): E66.01 - MORBID (SEVERE) OBESITY DUE TO EXCESS CALORIES SNOMED Code(s): 780606858
[2017-11-08 23:54] LABS: Glucose,Whole Blood 105 mg/dL (75-99)
[2017-11-09] MEDS: HEPARIN SODIUM,PORCINE 5,000 UNIT/ML 1 ML VIAL SQ SCH ×3 (00:04→15:03)
[2017-11-09] MEDS: PROPOFOL 1,000 MG in EMPTY BAG 1 BAG IV SCH ×4 (00:04→06:30)
[2017-11-09] MEDS: FUROSEMIDE 10 MG/ML 10 ML VIAL IV SCH ×3 (00:05→15:03)
[2017-11-09] MEDS: IPRATROPIUM-ALBUTEROL 3 ML NEB INHALATION SCH ×6 (03:09→23:48)
[2017-11-09 05:01] LABS: Anisocytosis Slight; Basophils % (A) 0 %; Eosinophils # (A) 0.4 k/uL (0-0.7); Eosinophils % (A) 5 %; HCT 25.6 % (34.0-46.0); HGB 7.7 gm/dL (11.4-16.0); Hypochromasia Marked; Lymphocytes # (A) 0.4 k/uL (1.0-4.8); Lymphocytes % (A) 6 %; MCH 26.2 pg (25.0-35.0); MCHC 30.1 g/dL (31.0-37.0); Monocytes # (A) 0.5 k/uL (0-1.0); Monocytes % (A) 7 %; Neutrophils % (A) 81 %; Platelet Count 146 k/uL (150-450); RBC 2.94 m/uL (3.80-5.40); RDW 17.8 % (11.5-15.5); WBC 7.4 k/uL (3.8-10.6)
[2017-11-09 05:22] LABS: Calcium 8.5 mg/dL (8.4-10.2); Magnesium 2.2 mg/dL (1.6-2.3); Potassium 3.8 mmol/L (3.5-5.1)
[2017-11-09 05:24] LABS: ABG Base Excess 2.7 mmol/L; ABG HCO3 28 mmol/L (21-25); ABG Oxygen Saturation 97.1 % (94-97); ABG PCO2 45 mmHg (35-45); ABG PH 7.39 (7.35-7.45); ABG PO2 84 mmHg (83-108); ABG TCO2 29 mmol/L (19-24)
[2017-11-09] MEDS ORDERED: POTASSIUM CHLORIDE 20 MEQ in WATER FOR INJECTION 1 100ML.BAG IVPB STA (05:33)
[2017-11-09 06:28] LABS: Glucose,Whole Blood 97 mg/dL (75-99)
[2017-11-09] MEDS: INSULIN ASPART 100 UNIT/ML 1 ML 10 ML VIAL SQ SCH ×3 (06:30→17:40)
--- NOTE | 2017-11-09 07:01 | XR ---
EXAMINATION TYPE: XR chest 1V portable DATE OF EXAM: 11/09/2017 HISTORY: ET tube placement . REFERENCE: Previous study dated 11/08/2017. FINDINGS: The tracheostomy tube is in place. Its tip overlies the tracheal air column in this single frontal projection. The catheters were placed in the right hemithorax. There is mild improved aeration in the right chest . There continues to be significant opacity of the right hemithorax. There is left basilar airspace d isease. I suspect bilateral effusions, greater on the right than the left. IMPRESSION: INTERVAL PLACEMENT OF A RIGHT-SIDED PLEURAL CATHETER WITH IMPROVED AERATION OF THE RIGHT LUNG.
--- NOTE | 2017-11-09 08:11 | P.PN ---
Subjective Progress Note Date: 11/09/17 Principal diagnosis: Respiratory failure with inability to wean from the vent, inability to swallow secondary to vent dependency. Previous medical history of congestive heart failure with diastolic dysfunction, chronic renal failure stage III receiving dialysis, diabetes mellitus type 2, morbid obesity, chronic lower extremity wounds, hyperlipidemia, and hypertension. POD #1 placement of tracheostomy and insertion of percutaneous endoscopic gastrostomy tube. Patient is currently laying in the intensive care unit sedated on mechanical ventilation. No acute distress. Objective - Vital Signs Vital signs: Vital Signs Temp 97.7 F 11/09/17 04:00 Pulse 67 11/09/17 07:42 Resp 20 11/09/17 07:00 BP 124/60 11/08/17 18:00 Pulse Ox 100 11/09/17 07:00 Intake & Output 11/08/17 11/09/17 11/09/17 18:59 06:59 18:59 Intake Total 601.071 666.087 Output Total 5780 2765 Balance -1868.929 -2098.913 Weight 160.5 kg 159.7 kg Intake: IV 299 356 0.9 110 120 Clindamycin 600 mg In 50 Dextrose 5% in Water 50 ml @ 100 mls/hr IVPB ONCE ONE Rx#:[id number] Potassium Chloride 20 meq 100 In Water For Injection 1 100ml.bag @ 50 mls/hr IVPB ONCE STA Rx#: [id number] Potassium Chloride 20 meq 50 In Water For Injection 1 100ml.bag @ 50 mls/hr IVPB ONCE STA Rx#: [id number] cefTAZidime 1 gm In 50 50 Sodium Chloride 0.9% 50 ml @ 100 mls/hr IVPB Q12HR [facility] Rx#:[id number] pressure bag 39 36 Intake, IV Titration 302.071 310.087 Amount Propofol 1,000 mg In 302.071 310.087 Empty Bag 1 bag @ Titrate IV .Q0M [facility] Rx#: [id number] Output: Chest Tube Drainage 1350 1290 Pleural Catheter Right 1350 1290 Urine 1110 1475 Estimated Blood Loss 10 Other: Voiding Method Indwelling Catheter Indwelling Catheter ABP, PAP, CO, CI - Last Documented Arterial Blood Pressure 152/56 - Constitutional General appearance: Present: morbidly obese, no acute distress - Respiratory Details: Lungs sounds diminished bilaterally, coarse on the right side. Respirations even, nonlabored on mechanical ventilation. Current ventilator settings assist control mode, FiO2 50%, tidal volume 400, respiratory rate 20, PEEP 5. ABGs this morning 7.39/45/84/28/97%/2.7. #[address] in [address] Right pleural pigtail catheter present, connected to atrium at -20 cm wall suction, 1600 mL serosanguineous drainage since insertion yesterday. - Cardiovascular Details: S1, S2 present. Regular rate and rhythm, sinus rhythm on telemetry. - Gastrointestinal Gastrointestinal Comment(s): Abdomen soft, nontender, nondistended. Hypoactive bowel sounds present. PEG tube present, currently clamped. - Genitourinary Genitourinary Comment(s): Guo present draining clear, yellow urine. Output 75-150 mL per hour overnight. - Integumentary Integumentary Comment(s): Skin is warm and dry with evidence of good perfusion. - Neurologic Neurologic Comment(s): Currently sedated on 35 mics propofol. - Labs CBC & Chem 7: 11/09/17 04:40 11/09/17 04:40 Labs: Abnormal Lab Results - Last 24 Hours (Table) 11/08/17 11/08/17 11/08/17 Range/Units 05:30 12:04 18:01 RBC (3.80-5.40) m/uL Hgb (11.4-16.0) gm/dL Hct (34.0-46.0) % MCHC (31.0-37.0) g/dL RDW (11.5-15.5) % Plt Count (150-450) k/uL Lymphocytes # (1.0-4.8) k/uL ABG HCO3 (21-25) mmol/L ABG Total CO2 (19-24) mmol/L ABG O2 Saturation (94-97) % Sodium (137-145) mmol/L BUN (7-17) mg/dL Creatinine (0.52-1.04) mg/dL POC Glucose (mg/dL) 122 H 113 H (75-99) mg/dL Phosphorus (2.5-4.5) mg/dL Total Protein 5.2 L (6.3-8.2) g/dL 11/08/17 11/09/17 11/09/17 Range/Units 23:52 04:40 04:40 RBC 2.94 L (3.80-5.40) m/uL Hgb 7.7 L (11.4-16.0) gm/dL Hct 25.6 L (34.0-46.0) % MCHC 30.1 L (31.0-37.0) g/dL RDW 17.8 H (11.5-15.5) % Plt Count 146 L (150-450) k/uL Lymphocytes # 0.4 L (1.0-4.8) k/uL ABG HCO3 (21-25) mmol/L ABG Total CO2 (19-24) mmol/L ABG O2 Saturation (94-97) % Sodium 136 L (137-145) mmol/L BUN 49 H (7-17) mg/dL Creatinine 1.90 H (0.52-1.04) mg/dL POC Glucose (mg/dL) 105 H (75-99) mg/dL Phosphorus 6.0 H (2.5-4.5) mg/dL Total Protein (6.3-8.2) g/dL 11/09/17 Range/Units 05:20 RBC (3.80-5.40) m/uL Hgb (11.4-16.0) gm/dL Hct (34.0-46.0) % MCHC (31.0-37.0) g/dL RDW (11.5-15.5) % Plt Count (150-450) k/uL Lymphocytes # (1.0-4.8) k/uL ABG HCO3 28 H (21-25) mmol/L ABG Total CO2 29 H (19-24) mmol/L ABG O2 Saturation 97.1 H (94-97) % Sodium (137-145) mmol/L BUN (7-17) mg/dL Creatinine (0.52-1.04) mg/dL POC Glucose (mg/dL) (75-99) mg/dL Phosphorus (2.5-4.5) mg/dL Total Protein (6.3-8.2) g/dL Microbiology - Last 24 Hours (Table) 11/08/17 14:50 Gram Stain - Preliminary Pleural Fluid Body Fluid Culture - Preliminary 11/08/17 14:50 Anaerobic Culture - Preliminary Pleural Fluid 11/08/17 11:50 Urine Culture - Preliminary Urine,Catheterized 11/01/17 11:01 Fungal Culture - Preliminary Bronchial Washings - Right Kaley albicans - Imaging and Cardiology Chest x-ray: report reviewed, image reviewed Assessment and Plan (1) Acute hypoxemic respiratory failure Current Visit: Yes Status: Acute Code(s): J96.01 - ACUTE RESPIRATORY FAILURE WITH HYPOXIA SNOMED Code(s): 993412569 (2) Anemia Current Visit: Yes Status: Chronic Code(s): D64.9 - ANEMIA, UNSPECIFIED SNOMED Code(s): 806388288 (3) Diabetic ulcer of heel Current Visit: Yes Status: Chronic Priority: High Code(s): E11.621 - TYPE 2 DIABETES MELLITUS WITH FOOT ULCER; L97.409 - NON-PRS CHRONIC ULCER OF UNSP HEEL AND MIDFOOT W UNSP SEVERT SNOMED Code(s): 77437594 (4) Renal failure Current Visit: Yes Status: Chronic Priority: High Code(s): N19 - UNSPECIFIED KIDNEY FAILURE SNOMED Code(s): 92877653 (5) 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 Restart tube feedings through her PEG when it has been 24 hours post PEG tube placement. 2. Ventilator management per Dr. Hansen. 3. GI/DVT prophylaxis. 4. Medical management per primary care service. 5. Will follow on an as-needed basis. Time with Patient: Greater than 30
--- NOTE | 2017-11-09 08:23 | P.PN ---
Subjective Progress Note Date: 11/09/17 Principal diagnosis: This is a 66-year-old female seen in consultation because of acute kidney injury from cardiorenal syndrome and vancomycin. She was started on dialysis and has had multiple dialysis now for the last 1 week. Last dialysis was 2017, had pure ultrafiltration for 3 L and tolerated well. Her urine output was 2840 and 22-65 over the last 2 days. Yesterday she had a pigtail catheter placed in the right chest because of collapse of the lung and pleural effusion. 13 50 mL of drainage has been noted so far. She made 965 mL of urine. She is on Lasix. She remains on the vent on 50% FiO2 unable to be weaned off as supposedly there was some deterioration in her mental status. She has tracheostomy and PEG tube. Vital signs are stable. Diprivan has been turned of this morning She is known with chronic kidney disease stage III likely from diabetic nephropathy, diabetes, obesity, staph epidermidis bacteremia possible contaminant, Patient presented with chest pressure and is being followed by cardiology. Currently she admits to shortness of breath. Her chest x-ray on admission revealed pulmonary edema and a chest ultrasound revealed bilateral pleural effusions. Objective - Vital Signs Vital signs: Vital Signs Temp 97.7 F 11/09/17 04:00 Pulse 73 11/09/17 08:03 Resp 20 11/09/17 07:00 BP 124/60 11/08/17 18:00 Pulse Ox 100 11/09/17 07:00 Intake & Output 11/08/17 11/09/17 11/09/17 18:59 06:59 18:59 Intake Total 601.071 666.087 Output Total 2790 2675 Balance -1868.929 -2098.913 Weight 160.5 kg 159.7 kg Intake: IV 299 356 0.9 110 120 Clindamycin 600 mg In 50 Dextrose 5% in Water 50 ml @ 100 mls/hr IVPB ONCE ONE Rx#:[id number] Potassium Chloride 20 meq 100 In Water For Injection 1 100ml.bag @ 50 mls/hr IVPB ONCE STA Rx#: [id number] Potassium Chloride 20 meq 50 In Water For Injection 1 100ml.bag @ 50 mls/hr IVPB ONCE STA Rx#: [id number] cefTAZidime 1 gm In 50 50 Sodium Chloride 0.9% 50 ml @ 100 mls/hr IVPB Q12HR [facility] Rx#:[id number] pressure bag 39 36 Intake, IV Titration 302.071 310.087 Amount Propofol 1,000 mg In 302.071 310.087 Empty Bag 1 bag @ Titrate IV .Q0M [facility] Rx#: [id number] Output: Chest Tube Drainage 1350 1290 Pleural Catheter Right 1350 1290 Urine 1110 1475 Estimated Blood Loss 10 Other: Voiding Method Indwelling Catheter Indwelling Catheter ABP, PAP, CO, CI - Last Documented Arterial Blood Pressure 152/56 On examination she is somewhat restless, on the vent via trach cast me. Her FiO2 is stable at 50%. HEENT exam difficult to see her JVD she has a IJ Daniel on that side. There is some blood around the exit site. Pupils are equal. Lungs are significant for occasional coarse crackle at the right side. Heart sounds are unremarkable for any murmur rub gallop normal sinus rhythm. Abdomen is soft obese. There is mild abdominal wall edema. Extremity examination reveals 2+ edema. Neurologically restless - Labs CBC & Chem 7: 11/09/17 04:40 11/09/17 04:40 Labs: Abnormal Lab Results - Last 24 Hours (Table) 11/08/17 11/08/17 11/08/17 Range/Units 05:30 12:04 18:01 RBC (3.80-5.40) m/uL Hgb (11.4-16.0) gm/dL Hct (34.0-46.0) % MCHC (31.0-37.0) g/dL RDW (11.5-15.5) % Plt Count (150-450) k/uL Lymphocytes # (1.0-4.8) k/uL ABG HCO3 (21-25) mmol/L ABG Total CO2 (19-24) mmol/L ABG O2 Saturation (94-97) % Sodium (137-145) mmol/L BUN (7-17) mg/dL Creatinine (0.52-1.04) mg/dL POC Glucose (mg/dL) 122 H 113 H (75-99) mg/dL Phosphorus (2.5-4.5) mg/dL Total Protein 5.2 L (6.3-8.2) g/dL 11/08/17 11/09/1711/09/18 Range/Units 23:52 04:40 04:40 RBC 2.94 L (3.80-5.40) m/uL Hgb 7.7 L (11.4-16.0) gm/dL Hct 25.6 L (34.0-46.0) % MCHC 30.1 L (31.0-37.0) g/dL RDW 17.8 H (11.5-15.5) % Plt Count 146 L (150-450) k/uL Lymphocytes # 0.4 L (1.0-4.8) k/uL ABG HCO3 (21-25) mmol/L ABG Total CO2 (19-24) mmol/L ABG O2 Saturation (94-97) % Sodium 136 L (137-145) mmol/L BUN 49 H (7-17) mg/dL Creatinine 1.90 H (0.52-1.04) mg/dL POC Glucose (mg/dL) 105 H (75-99) mg/dL Phosphorus 6.0 H (2.5-4.5) mg/dL Total Protein (6.3-8.2) g/dL 11/09/17 Range/Units 05:20 RBC (3.80-5.40) m/uL Hgb (11.4-16.0) gm/dL Hct (34.0-46.0) % MCHC (31.0-37.0) g/dL RDW (11.5-15.5) % Plt Count (150-450) k/uL Lymphocytes # (1.0-4.8) k/uL ABG HCO3 28 H (21-25) mmol/L ABG Total CO2 29 H (19-24) mmol/L ABG O2 Saturation 97.1 H (94-97) % Sodium (137-145) mmol/L BUN (7-17) mg/dL Creatinine (0.52-1.04) mg/dL POC Glucose (mg/dL) (75-99) mg/dL Phosphorus (2.5-4.5) mg/dL Total Protein (6.3-8.2) g/dL Microbiology - Last 24 Hours (Table) 11/08/17 14:50 Gram Stain - Preliminary Pleural Fluid Body Fluid Culture - Preliminary 11/08/17 14:50 Anaerobic Culture - Preliminary Pleural Fluid 11/08/17 11:50 Urine Culture - Preliminary Urine,Catheterized 11/01/17 11:01 Fungal Culture - Preliminary Bronchial Washings - Right Kaley albicans Assessment and Plan Assessment: Impression 1. ATN secondary to cardiorenal syndrome and vancomycin with dialysis dependency last dialysis day before yesterday 11/07/2017 which was pure Ultrafiltration for 3 L. Her urine output is 965 mL and further output of 1300 mL from the pigtail catheter in the right chest that was inserted 11/08/2017 yesterday. remains somewhat fluid overloaded with edema, on the vent on 50% % FiO2. . Her creatinine is stable at 1.9. 2. Fluid overloaded with edema,on Lasix 80 milligrams every 8 3 . Chronic kidney disease stage III, etiology is diabetic nephropathy and nephrosclerosis. 4. Ventilator pendent respiratory failure, stable at 50% FiO2, no change 5. Diabetes and diabetic nephropathy 6. Collapsed right lung, status post bronchoscopy 11/01/2017, chest shows improvement, further deterioration in a 2017 requiring pigtail catheter insertion for pleural effusion. 7. Anemia hemoglobin 7.2 > 7.7 8. Hypokalemia secondary to diuresis and dialysis, on replacement potassium stable at 3.8 Recommendation. 1. Maintain Lasix dose 80 mg every 8 hours . 2. Will hold off further dialysis Her labs do not support any further dialysis. 3. Her Daniel catheter can stain for another 24-48 hours and see how she does. It will her to come out sooner later in the next 2 or 3 days
[2017-11-09] MEDS: PANTOPRAZOLE 40 MG/10 ML VIAL IVP SCH (08:36)
[2017-11-09] MEDS: NYSTATIN 100,000 UNIT/GM POWD 15 GM TOPICAL SCH ×2 (08:36→20:54)
[2017-11-09] MEDS: METOPROLOL TARTRATE 12.5 MG TAB NG-TUBE SCH ×2 (08:37→20:54)
[2017-11-09] MEDS: CHLORHEXIDINE GLUCONATE 15 ML CUP MUCOUS MEM SCH ×2 (08:38→20:54)
--- NOTE | 2017-11-09 10:24 | P.PN ---
Subjective Progress Note Date: 11/09/17 Principal diagnosis: Acute respiratory failure, pleural effusion Yesterday she had a pigtail catheter placed in the right chest because of pleural effusion and collapse of the lung. About 1500 mL of drainage has been noted so far. She made 965 mL of urine. Despite being off sedation her mental status is still depressed and cloudy, still not responsive or following commands. She remains on the vent. No weaning has been done secondary to mental status. Yesterday she also had tracheostomy and PEG tube placed. Objective - Vital Signs Vital signs: Vital Signs Temp 97.7 F 11/09/17 04:00 Pulse 73 11/09/17 08:03 Resp 20 11/09/17 07:00 BP 124/60 11/08/17 18:00 Pulse Ox 100 11/09/17 07:00 Intake & Output 11/08/17 11/09/17 11/09/17 18:59 06:59 18:59 Intake Total 601.071 666.087 Output Total 2470 2765 Balance -1868.929 -2098.913 Weight 160.5 kg 159.7 kg Intake: IV 299 356 0.9 110 120 Clindamycin 600 mg In 50 Dextrose 5% in Water 50 ml @ 100 mls/hr IVPB ONCE ONE Rx#:[id number] Potassium Chloride 20 meq 100 In Water For Injection 1 100ml.bag @ 50 mls/hr IVPB ONCE STA Rx#: [id number] Potassium Chloride 20 meq 50 In Water For Injection 1 100ml.bag @ 50 mls/hr IVPB ONCE STA Rx#: [id number] cefTAZidime 1 gm In 50 50 Sodium Chloride 0.9% 50 ml @ 100 mls/hr IVPB Q12HR [facility] Rx#:[id number] pressure bag 39 36 Intake, IV Titration 302.071 310.087 Amount Propofol 1,000 mg In 302.071 310.087 Empty Bag 1 bag @ Titrate IV .Q0M [facility] Rx#: [id number] Output: Chest Tube Drainage 1350 1290 Pleural Catheter Right 1350 1290 Urine 1110 1475 Estimated Blood Loss 10 Other: Voiding Method Indwelling Catheter Indwelling Catheter ABP, PAP, CO, CI - Last Documented Arterial Blood Pressure 152/56 - Exam General: Ill appearing, moderate distress, morbidly obese, appears stated age Derm: warm, dry Head: atraumatic, normocephalic, symmetric Eyes: EOMI, no lid lag, anicteric sclera Mouth: no lip lesion, mucus membranes moist Cardiovascular: S1S2 reg, no murmur, positive posterior tibial pulse bilateral, Lungs: CTA bilateral, no rhonchi, no rales , no accessory muscle use, on vent Abdominal: soft, nontender to palpation, no guarding, no appreciable organomegaly Ext: no gross muscle atrophy, 3+ pitting edema, no contractures Neuro: CN II-XI grossly intact, moving upper hands independently, no movement of feet currently Psych: Lethargic, intermittently following commands, not agitated - Labs CBC & Chem 7: 11/09/17 04:40 11/09/17 04:40 Labs: Abnormal Lab Results - Last 24 Hours (Table) 11/08/17 11/08/17 11/08/17 Range/Units 05:30 12:04 18:01 RBC (3.80-5.40) m/uL Hgb (11.4-16.0) gm/dL Hct (34.0-46.0) % MCHC (31.0-37.0) g/dL RDW (11.5-15.5) % Plt Count (150-450) k/uL Lymphocytes # (1.0-4.8) k/uL ABG HCO3 (21-25) mmol/L ABG Total CO2 (19-24) mmol/L ABG O2 Saturation (94-97) % Sodium (137-145) mmol/L BUN (7-17) mg/dL Creatinine (0.52-1.04) mg/dL POC Glucose (mg/dL) 122 H 113 H (75-99) mg/dL Phosphorus (2.5-4.5) mg/dL Total Protein 5.2 L (6.3-8.2) g/dL 11/08/17 11/09/17 11/09/17 Range/Units 23:52 04:40 04:40 RBC 2.94 L (3.80-5.40) m/uL Hgb 7.7 L (11.4-16.0) gm/dL Hct 25.6 L (34.0-46.0) % MCHC 30.1 L (31.0-37.0) g/dL RDW 17.8 H (11.5-15.5) % Plt Count 146 L (150-450) k/uL Lymphocytes # 0.4 L (1.0-4.8) k/uL ABG HCO3 (21-25) mmol/L ABG Total CO2 (19-24) mmol/L ABG O2 Saturation (94-97) % Sodium 136 L (137-145) mmol/L BUN 49 H (7-17) mg/dL Creatinine 1.90 H (0.52-1.04) mg/dL POC Glucose (mg/dL) 105 H (75-99) mg/dL Phosphorus 6.0 H (2.5-4.5) mg/dL Total Protein (6.3-8.2) g/dL 11/09/17 Range/Units 05:20 RBC (3.80-5.40) m/uL Hgb (11.4-16.0) gm/dL Hct (34.0-46.0) % MCHC (31.0-37.0) g/dL RDW (11.5-15.5) % Plt Count (150-450) k/uL Lymphocytes # (1.0-4.8) k/uL ABG HCO3 28 H (21-25) mmol/L ABG Total CO2 29 H (19-24) mmol/L ABG O2 Saturation 97.1 H (94-97) % Sodium (137-145) mmol/L BUN (7-17) mg/dL Creatinine (0.52-1.04) mg/dL POC Glucose (mg/dL) (75-99) mg/dL Phosphorus (2.5-4.5) mg/dL Total Protein (6.3-8.2) g/dL Microbiology - Last 24 Hours (Table) 11/08/17 14:50 Gram Stain - Preliminary Pleural Fluid Body Fluid Culture - Preliminary 11/08/17 14:50 Anaerobic Culture - Preliminary Pleural Fluid 11/08/17 11:50 Urine Culture - Preliminary Urine,Catheterized 11/01/17 11:01 Fungal Culture - Preliminary Bronchial Washings - Right Kaley albicans Assessment and Plan Plan: Acute on chronic hypoxic respiratory failure, mulitfactorial - CHF, R lung collapase s/p bronch, right-sided pleural effusion -Pulmonary following, vent management -Status post trach and PEG placement on 11/08, status post right pigtail catheter draining right pleural effusion on 11/08 -Discussed with Dr. Hansen, need to discuss with guardian later on the patient is not showing progress to try to make her comfort measures. -Due to suspected PE patient was treated with heparin drip initially but that was DC'd on 11/01 secondary to drop in hemoglobin. Patient was unable to tolerate VQ scan or CTA of the chest. Acute exacerbation of diastolic CHF with ejection fraction 50-55% -Continue with Lasix 80 mg 3 times a day. - BB - ARB on hold due to JOHN JOHN on CKD stage III, with vancomycin toxicity, currently receiving dialysis -Currently holding off hemodialysis per nephrology -Renally dose medications -Continue with Lasix as above Left Lower extremity wound growing out Klebsiella and Pseudomonas - ID recs - Off loading - Ceftazadime Anemia of chronic disease on top of iron deficiency anemia - continue aranesp - FE replacement - follow intermittent CBC Thrombocytopenia -Likely multifactorial -Follow CBC Diabetes mellitus type 2 -A1c 5.4 - SSI - Follow BS Hypertension - resume BB, continue to hold ARB, Hydralazine, and Norvasc - follow BP Atherosclerotic coronary artery disease -ASA, lipitor DVT prophylaxis: heparin SC Discussed with: Nursing Anticipated discharge: unknown Anticipated discharge place: Likely will need LTAC A total of 35 minutes was spent on the care of this complex patient more than 50 % of the time was spent in counseling and care coordination.
[2017-11-09 11:56] LABS: Glucose,Whole Blood 107 mg/dL (75-99)
--- NOTE | 2017-11-09 13:06 | P.PN ---
Subjective Progress Note Date: 11/09/17 65-year-old female patient is being seen in follow-up on 11/04/2017. This patient is morbidly obese with a BMI 33.9. She is in the intensive care is with acute on top of chronic history failure most likely on the basis of massive fluid overload. This morning, she is assist-control mode of ventilation at the rate of 20 with tidal volume of 400 and FiO2 of 50% with a PEEP of 10. Chest x-ray shows a right-sided pleural effusion. ET tube is in a good location. The blood gas showed a pH of 7.39 with a pCO2 of 46 and pO2 of 70 and this was on FiO2 of 50%. The patient is sedated with propofol at a dose of 50 g per KG per minute. She can arouse upon given a sedation holiday. In terms of her fluid overload, the patient has already received 2 sessions of hemodialysis 3 temporary dialysis catheter inserted in the right IJ. I discussed the case with nephrology today. We decided to hold off on dialysis as the patient is producing adequate amount of urine output while being on Lasix 83 g IV push every 12 hours. The patient is improving in terms of urine output and she is ready produced 1.9 L of urine output since morning. The creatinine from today's at 1.9 and the rest of the electrodes are all within normal limits. No significant acidosis. Bronchoscopy was done earlier and the patient did not reveal any significant microbial growth and the bronchioloalveolar lavage was also negative. Patient is on IV Fortaz and infectious disease on the case regarding the lower extremity wounds. On 11/05/2017 I'm seeing this patient for a follow-up. The patient is sedated and intubated on a mechanical ventilator. She is an assist-control mode of ventilation at the rate of 12 and FiO2 of 50% and a PEEP of 8 with a tidal volume of 400. She is was sedated with Diprivan and she is calm and comfortable. No significant orotracheal secretion. Chest x-ray showing a large right-sided pleural effusion and his tube is in a good location. The blood gas showed a pH of 7.4 with a pCO2 of 44 and pO2 of 63. We held off on dialysis yesterday as the patient is improving in terms of urine output. She is producing almost 50 mL an hour and she is on Lasix 80 mg IV push every 8 hours. The net fluid balance is -697 mL over the past 24 hours. We have contemplated PEG and trach. We will also contemplated chest tube insertion however we were not successful and obtaining consent. We're the process of getting a legal guardian at this point to undergo this procedures. Unfortunately nothing much can be done without any consent knowing that all of these procedures are not life saving or do not being done for immediate life- threatening conditions. The patient is not having any fever. No leukocytosis. Hemoglobin is at 7. Creatinine is down to 2. No pressors for now. Tolerating the tube feeds. Antibiotic coverage includes IV Fortaz and clindamycin. No other significant events over the past 24 hours for now. On 11/06/2017 I'm seeing this patient in the intensive care unit in a follow- up. We were able to finally get a public guardian for this patient. As mentioned she want to be a full code and based on that the public guardian is agreeable to any further intervention including a PEG and a trach. My intention is to give the patient is sedation holiday for a longest period of time and assess the patient's underlying mental status. I would like to see some response and alertness from this patient off sedation. At the same time would like to get this patient another session of ultrafiltration together as dry as possible in consideration for possible weaning/extubation. If this fails , the alternative will be long-term PEG and trach. On today's chest x-ray, the patient is small lung volumes and the patient continues to have a right-sided pleural effusion. She remains on assist control mode mode of ventilation. She is on a volume cycle with a tidal volume of 400 and FiO2 of 50% and a PEEP of 5. The blood gases from this morning showed a pH of 7.4 with a pCO2 of 44 and pO2 of 60 and this was on the 50% FiO2. The patient is on no pressors. The patient is afebrile. The patient is covered with broad-spectrum antibiotics. ID is on the case. Renal function continues to be impaired with a creatinine of 2.0. The patient underwent ultrafiltration yesterday with removal of 3 L and another session of ultrafiltration will be done today and this was coordinated with nephrology. She is afebrile. She is tolerating her tube feeds. She is producing good urine output while on IV Lasix. Otherwise no other significant events over the past 24 hours. On 11/07/2017, the patient remains in intensive care unit intubated on a mechanical ventilator. I was very close to consider extubating this patient however is unaffected that she was started on an FiO2 of 60% and based on her weakness and poor ability to clear the rest or secretions, decided not to. I decided to give this patient another day on a mechanical ventilator during which I'm going to give her another session of ultrafiltration diuresis with IV Lasix and optimize further volume status and consider possibility of extubation today. This will be a very difficult extubation. The patient may very well failed extubation. Alternative would be long-term mechanical ventilation through a tracheostomy tube which I have ordered the agreed upon with her legal guardian. I would like however to try at least an extubation on this patient once she is fully dialyzed and diuresis. Based on this, it kept on the sedation this morning. She was able to arouse from her sedation to the point where she was following simple commands. She remains extremely weak and upper and lower extremities. Ultrafiltration will be done today and the goal be removal of 3 L of IV fluids. She is producing adequate amount of urine output and she is still on IV Lasix. Renal function from today shows a creatinine of 2.1. As far as vent support, the patient is still on the same vent setting within assist-control of 20, tidal volume of 400 with an FiO2 of 60% and a PEEP of 5. Her morning blood gases showed a pH of 7.38 with a pCO2 of 46 and pO2 of 85. I was able to cut down the FiO2 down to 50% and she maintain a saturation above 90%. Chest x-ray findings are still the same and the patient has a right- sided pleural effusion. Lung volumes are essentially small at this point in time. She is tolerating her tube feeds. We will make it final decision on extubation versus long-term PEG and trach and long-term mechanical ventilation with the next 24 hours. I am inclined to at least give her a trial of extubation prior to going to a long-term vent management system especially with her poor baseline performance and functional status and poor long-term prognosis. She is afebrile. No other significant events occurred over the past 24 hours. On 11/08/2017, I'm seeing this patient for a follow-up. I decided not to extubate the patient. The patient did not wake up appropriately and I do not think she had the strength on the motor function or diabetic to clear rest or secretions if extubation was performed. Based on that the patient was kept on a mechanical ventilator throughout the night and earlier this morning the patient was taken to the operating room and she underwent a PEG and tracheostomy tube insertion. This was done by Dr. Mccarty. The patient is back to the intensive care unit and the patient is currently being weaned off the sedation for now. She is hemodynamically stable. Chest x-ray shows significant opacification of the right lung and this was noted as the patient is having on and off right-sided pleural effusion in addition to some underlying atelectasis at the chest x-ray shows volume loss in addition to pleural effusion. Based on this, I discussed the case with interventional radiology and we decided to receiving the pigtail catheter insertion at the bedside under ultrasound guidance. This will be likely done today. Meanwhile, the patient is hemodynamically stable. Her last dialysis and ultrafiltration was done yesterday. The patient is in a negative fluid balance. The patient is producing adequate amount of urine output. The patient is an assist-control mode at the rate of 20 with tidal volume of 400 and FiO2 of 50% and a PEEP of 5 and a morning blood gases showed a pH of 7.42 with a pCO2 of 46 and pO2 of 72. The creatinine is at 1.8. Rest of the electrodes are within normal limits and a potassium level needs to be replaced. She remains on IV Lasix and she is producing adequate urine output. On 11/09/2017, the patient is post PEG and trach. The patient is taken off sedation and we are in the process of evaluating her mental status. I'm concerned that the patient has significant degree of metabolic encephalopathy in addition to drug effect affecting her mentation. The patient meanwhile remains on a mechanical ventilator. She has a Shiley extra long tracheostomy tube. No leaks around the tube. She is an assist-control mode of ventilation. Vent settings remain the same as yesterday and FiO2 was up down to 40% and the patient is on a tidal volume of 400. She is also on a PEEP of 5 at the rate of 20. As mentioned, the patient had significant opacification of the right lung yesterday and I was able to work with interventional radiology and insert a pigtail catheter in the right lung and she has drained approximately 1.5 L of pleural fluid thus far. On today's chest x-ray, there is significant improvement in the aeration of the right lower lobe although the patient had some right upper lobe atelectasis with volume loss and that is the cutoff sign indicating an underlying mucous plug. Note that she was bronchoscoped earlier during this hospitalization and therapeutic it was suctioning was done and she did not have any microbial growth. She is on IV cefepime. She'll feeds will be restarted. PEG tube site is clean. No fever. No chills. No hypotension. No other issues otherwise for now. Objective - Vital Signs Vital signs: Vital Signs Temp 97.7 F 11/09/17 12:00 Pulse 77 11/09/17 12:00 Resp 20 11/09/17 12:00 BP 124/60 11/08/17 18:00 Pulse Ox 100 11/09/17 12:00 Intake & Output 11/08/17 11/09/17 11/09/17 18:59 06:59 18:59 Intake Total 601.071 666.087 299 Output Total 2470 9085 2570 Balance -1868.929 -0248.913 -1311 Weight 160.5 kg 159.7 kg 159.7 kg Intake: IV 299 356 165 0.9 110 120 40 Clindamycin 600 mg In 50 Dextrose 5% in Water 50 ml @ 100 mls/hr IVPB ONCE ONE Rx#:[id number] Potassium Chloride 20 meq 100 In Water For Injection 1 100ml.bag @ 50 mls/hr IVPB ONCE STA Rx#: [id number] Potassium Chloride 20 meq 50 In Water For Injection 1 100ml.bag @ 50 mls/hr IVPB ONCE STA Rx#: [id number] cefTAZidime 1 gm In 50 50 100 Sodium Chloride 0.9% 50 ml @ 100 mls/hr IVPB Q12HR [facility] Rx#:[id number] pressure bag 39 36 25 Intake, IV Titration 302.071 310.087 Amount Propofol 1,000 mg In 302.071 310.087 Empty Bag 1 bag @ Titrate IV .Q0M [facility] Rx#: [id number] Tube Feeding 104 Other 30 Output: Chest Tube Drainage 1350 1290 120 Pleural Catheter Right 1350 1290 120 Urine 1110 1475 2450 Uretheral (Guo) 500 Estimated Blood Loss 10 Other: Voiding Method Indwelling Catheter Indwelling Catheter Indwelling Catheter # Voids 1 ABP, PAP, CO, CI - Last Documented Arterial Blood Pressure 167/64 - Exam No acute distress, sedated, and the patient has a tracheostomy tube in place.. The patient was taken off sedation this morning. She opens up her eyes patient does not track or follow any commands at this point in time. HEENT examination is grossly unremarkable. Mucous membranes are moist. The patient a tracheostomy tube in place Neck supple. Full range of motion. No adenopathy thyromegaly or neck vein distention. Cardiovascular examination reveals regular rhythm rate. S1-S2 normal. No S3 or S4. No discernible murmur noted. Heart sounds are very distant. Lungs reveal severely diminished breath sounds bilaterally, right greater than left. There are bilateral coarse rhonchi. Crackles are noted at both bases. No wheezes are appreciated. Very little air entry on the right side noted. Breath sounds are about what they were the day before. There is not been much change. Abdominal exam revealed normal bowel sounds. The abdomen was soft, non-tender, and without masses, organomegaly, or appreciable enlargement of the abdominal aorta. The PEG tube site is dry clean and intact at this point in time Extremities are intact. Chronic lower extremity edema is noted. She also is chronic venous stasis changes with hyperpigmentation. Heels are bandaged. Slightly improved edema of the lower extremities is noted. 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 Left heel measures at 2.4 x 3.5 x 0.2 cm right heel ulceration measuring at 2 x 2 x 0.2 total contact cast was removed Skin is without rash or lesion. See the lower extremity examination as mentioned above Neurologic examination reveals that the patient is arousable off the sedation. She is deeply sedated as the patient arrived from the operating room and currently the patient is receiving sedation holiday. - Labs CBC & Chem 7: 11/09/17 04:40 11/09/17 04:40 Labs: Abnormal Lab Results - Last 24 Hours (Table) 11/08/17 11/08/17 11/09/17 Range/Units 18:01 23:52 04:40 RBC (3.80-5.40) m/uL Hgb (11.4-16.0) gm/dL Hct (34.0-46.0) % MCHC (31.0-37.0) g/dL RDW (11.5-15.5) % Plt Count (150-450) k/uL Lymphocytes # (1.0-4.8) k/uL ABG HCO3 (21-25) mmol/L ABG Total CO2 (19-24) mmol/L ABG O2 Saturation (94-97) % Sodium 136 L (137-145) mmol/L BUN 49 H (7-17) mg/dL Creatinine 1.90 H (0.52-1.04) mg/dL POC Glucose (mg/dL) 113 H 105 H (75-99) mg/dL Phosphorus 6.0 H (2.5-4.5) mg/dL 11/09/17 11/09/17 11/09/17 Range/Units 04:40 05:20 11:54 RBC 2.94 L (3.80-5.40) m/uL Hgb 7.7 L (11.4-16.0) gm/dL Hct 25.6 L (34.0-46.0) % MCHC 30.1 L (31.0-37.0) g/dL RDW 17.8 H (11.5-15.5) % Plt Count 146 L (150-450) k/uL Lymphocytes # 0.4 L (1.0-4.8) k/uL ABG HCO3 28 H (21-25) mmol/L ABG Total CO2 29 H (19-24) mmol/L ABG O2 Saturation 97.1 H (94-97) % Sodium (137-145) mmol/L BUN (7-17) mg/dL Creatinine (0.52-1.04) mg/dL POC Glucose (mg/dL) 107 H (75-99) mg/dL Phosphorus (2.5-4.5) mg/dL Microbiology - Last 24 Hours (Table) 11/08/17 14:50 Gram Stain - Preliminary Pleural Fluid Body Fluid Culture - Preliminary 11/08/17 14:50 Anaerobic Culture - Preliminary Pleural Fluid 11/08/17 11:50 Urine Culture - Preliminary Urine,Catheterized 11/01/17 11:01 Fungal Culture - Preliminary Bronchial Washings - Right Kaley albicans Assessment and Plan Plan: Assessment 1 acute on top of chronic hypoxic history failure likely on the basis of CHF/ fluid overload and development of a large right-sided pleural effusion. The patient is currently still mechanically ventilated for a tracheostomy tube. The right-sided pleural effusion was evacuated by a pigtail catheter. Today's chest x-ray showing a right upper lobe atelectasis/collapse. Nevertheless, the patient is oxygenating well. The patient ventilating well. Previous bronchoscopies as indicated no microbial growth or pneumonia. 2 right lung collapse, post bronchoscopy on 11/01/2017 with a bronchioloalveolar lavage that showed no microbial growth and the patient on empiric antibiotic coverage with IV cefepime. The chest x-ray showed improvement in the volume status and the right lung although there is a ongoing right upper lobe atelectasis. The right lower lobe pleural effusion is completely evacuated this point the patient has a pigtail catheter in place. The pleural fluid will be sent for analysis. 3 morbid obesity with a BMI 53.9 4 acute on top of a chronic stage III kidney failure, the patient is currently producing adequate amount of urine output. No dialysis for the past 2 days. 5 anemia of chronic disease secondary to chronic renal failure, hemoglobin is stable at 7. 6 diabetes mellitus 7 nonhealing ulcers in the lower extremities bilaterally 8 hypertension 9 previous history of cellulitis of the lower eczematous secondary to pseudomonas and klebsiella Plan Stop sedation. Monitor mentation. Continue vent support. Chest PT. Consider repeat bronchoscopy within next 24 hours if the right upper lobe remains unchanged. Keep the pigtail catheter in for another 24 hours. Send the pleural fluid for LDH and protein. Initiate tube feeds. No dialysis for today. Continue IV Lasix. Long-term prognosis poor. I'm hoping that we can at least get out of a more stable condition and get out to a we'll continue to follow. Long-term prognosis remains poor. Discussed with a guardian. Critically care evaluation, more than 30 minutes.
[2017-11-09] MEDS: ASPIRIN 81 MG PO SCH (16:01)
[2017-11-09 17:40] LABS: Glucose,Whole Blood 114 mg/dL (75-99)
[2017-11-09] MEDS: ATORVASTATIN 10 MG TAB PO SCH (20:54)
[2017-11-10 00:10] LABS: Glucose,Whole Blood 121 mg/dL (75-99)
[2017-11-10] MEDS: HEPARIN SODIUM,PORCINE 5,000 UNIT/ML 1 ML VIAL SQ SCH ×3 (00:12→15:33)
[2017-11-10] MEDS: FUROSEMIDE 10 MG/ML 10 ML VIAL IV SCH ×3 (00:12→08:49)
[2017-11-10] MEDS: INSULIN ASPART 100 UNIT/ML 1 ML 10 ML VIAL SQ SCH ×4 (00:22→18:11)
[2017-11-10] MEDS: IPRATROPIUM-ALBUTEROL 3 ML NEB INHALATION SCH ×6 (03:17→23:09)
[2017-11-10 04:55] LABS: Anisocytosis Slight; Basophils % (A) 0 %; Eosinophils # (A) 0.4 k/uL (0-0.7); Eosinophils % (A) 5 %; HGB 7.9 gm/dL (11.4-16.0); Hypochromasia Marked; Lymphocytes # (A) 0.5 k/uL (1.0-4.8); Lymphocytes % (A) 5 %; MCH 26.3 pg (25.0-35.0); MCHC 30.6 g/dL (31.0-37.0); MCV 86.2 fL (80.0-100.0); Mean Platelet Volume 8.2; Monocytes # (A) 0.7 k/uL (0-1.0); Monocytes % (A) 8 %; Neutrophils # (A) 7.1 k/uL (1.3-7.7); Neutrophils % (A) 80 %; Platelet Count 163 k/uL (150-450); RBC 3.01 m/uL (3.80-5.40); RDW 17.5 % (11.5-15.5); WBC 8.8 k/uL (3.8-10.6)
[2017-11-10 05:05] LABS: Albumin 2.5 g/dL (3.5-5.0); Calcium 8.5 mg/dL (8.4-10.2); Magnesium 2.1 mg/dL (1.6-2.3); Phosphorus 5.2 mg/dL (2.5-4.5); Potassium 3.4 mmol/L (3.5-5.1); Total Bilirubin 0.2 mg/dL (0.2-1.3); Total Protein 5.5 g/dL (6.3-8.2)
[2017-11-10 05:19] LABS: ABG Base Excess 6.7 mmol/L; ABG HCO3 30 mmol/L (21-25); ABG Oxygen Saturation 98.4 % (94-97); ABG PCO2 42 mmHg (35-45); ABG PH 7.47 (7.35-7.45); ABG PO2 95 mmHg (83-108); ABG TCO2 32 mmol/L (19-24)
[2017-11-10] MEDS: POTASSIUM BICARBONATE/CIT AC 20 MEQ TABLET.EFF NG-TUBE SCH ×2 (05:22→06:05)
[2017-11-10] MEDS: PROPOFOL 1,000 MG in EMPTY BAG 1 BAG IV SCH (06:05)
[2017-11-10 06:12] LABS: Glucose,Whole Blood 133 mg/dL (75-99)
--- NOTE | 2017-11-10 06:46 | XR ---
EXAMINATION TYPE: XR chest 1V portable DATE OF EXAM: 11/10/2017 HISTORY: ET tube placement . REFERENCE: Previous study dated 11/09/2017. FINDINGS: There is a tracheostomy tube in place. Its tip overlies the tracheal air column in this sin gle frontal projection. There is a right internal jugular catheter in place, unchanged in appearance. There is a right pleural drain in place. There is marked improvement in aeration of the right lung. Heart size is upper limits of normal. Ther e is left basilar airspace disease, unchanged from previous. IMPRESSION: MARKED IMPROVEMENT IN THE AERATION OF THE RIGHT LUNG.
[2017-11-10] MEDS: METOPROLOL TARTRATE 12.5 MG TAB NG-TUBE SCH ×2 (08:47→20:04)
[2017-11-10] MEDS: hydrALAZINE HCL 50 MG TAB PO SCH ×3 (08:47→22:11)
[2017-11-10] MEDS: CHLORHEXIDINE GLUCONATE 15 ML CUP MUCOUS MEM SCH ×2 (08:48→20:04)
[2017-11-10] MEDS: amLODIPine 10 MG TAB PO SCH (08:48)
[2017-11-10] MEDS: PANTOPRAZOLE 40 MG/10 ML VIAL IVP SCH (08:48)
[2017-11-10] MEDS: NYSTATIN 100,000 UNIT/GM POWD 15 GM TOPICAL SCH ×2 (08:49→20:04)
--- NOTE | 2017-11-10 10:30 | P.PN ---
Subjective Progress Note Date: 11/10/17 Principal diagnosis: This is a 66-year-old female seen in consultation because of acute kidney injury from cardiorenal syndrome and vancomycin. She was started on dialysis and has had multiple dialysis now for the last 1 week.Last dialysis was 2017, had pure ultrafiltration for 3 L and tolerated well. On 11/09/2017 she had a pigtail catheter placed in the right chest because of collapse of the lung and pleural effusion. Her chest tube drainage is 300 mL but her urine output is 73 95 mL. She is on Lasix 80 mg daily starting today, she was on 80-8 hours. She remains on the vent on 50% FiO2 unable to be weaned off as supposedly there was some deterioration in her mental status. She has tracheostomy and PEG tube. Vital signs are stable. She is in normal sinus rhythm She is known with chronic kidney disease stage III likely from diabetic nephropathy, diabetes, obesity, staph epidermidis bacteremia possible contaminant, Patient presented with chest pressure and is being followed by cardiology. Currently she admits to shortness of breath. Her chest x-ray on admission revealed pulmonary edema and a chest ultrasound revealed bilateral pleural effusions. Objective - Vital Signs Vital signs: Vital Signs Temp 98.7 F 11/10/17 08:00 Pulse 86 11/10/17 10:00 Resp 16 11/10/17 10:00 BP 124/60 11/08/17 18:00 Pulse Ox 100 11/10/17 10:00 Intake & Output 11/09/17 11/10/17 11/10/17 18:59 06:59 18:59 Intake Total 791 959 364.025 Output Total 4545 3150 550 Balance -3754 -2191 -185.975 Weight 159.7 kg 156.7 kg Intake: IV 255 221 139 0.9 100 130 30 cefTAZidime 1 gm In 100 50 100 Sodium Chloride 0.9% 50 ml @ 100 mls/hr IVPB Q12HR [facility] Rx#:[id number] pressure bag 55 41 9 Intake, IV Titration 100 27.025 Amount Propofol 1,000 mg In 100 27.025 Empty Bag 1 bag @ Titrate IV .Q0M [facility] Rx#: [id number] Tube Feeding 346 558 168 Other 90 180 30 Output: Chest Tube Drainage 170 130 Pleural Catheter Right 170 130 Urine 4375 3020 550 Uretheral (Guo) 600 Other: Voiding Method Indwelling Catheter Indwelling Catheter # Voids 1 ABP, PAP, CO, CI - Last Documented Arterial Blood Pressure 165/53 On examination she is on the vent but FiO2 is down to 40%. She remains confused she has open eyes but does not make any eye contact. HEENT exam no JVP neck is supple no facial asymmetry and pupils are equal. Lungs are clear to auscultation with an occasional coarse crackle at bases. The chest x-ray shows significant improvement in the right lung which is much more open now. Heart sounds are unremarkable for any murmur rub gallop normal sinus rhythm Abdomen is obese protuberant non-tender as best as one can elicit. Extremity exam reveals trace edema Neurologically did not make any eye contact but eyes are open and she is somewhat restless - Labs CBC & Chem 7: 11/10/17 04:30 11/10/17 04:30 Labs: Abnormal Lab Results - Last 24 Hours (Table) 11/09/17 11/09/17 11/10/17 Range/Units 11:54 17:38 00:06 RBC (3.80-5.40) m/uL Hgb (11.4-16.0) gm/dL Hct (34.0-46.0) % MCHC (31.0-37.0) g/dL RDW (11.5-15.5) % Lymphocytes # (1.0-4.8) k/uL ABG pH (7.35-7.45) ABG HCO3 (21-25) mmol/L ABG Total CO2 (19-24) mmol/L ABG O2 Saturation (94-97) % Potassium (3.5-5.1) mmol/L BUN (7-17) mg/dL Creatinine (0.52-1.04) mg/dL Glucose (74-99) mg/dL POC Glucose (mg/dL) 107 H 114 H 121 H (75-99) mg/dL Phosphorus (2.5-4.5) mg/dL Total Protein (6.3-8.2) g/dL Albumin (3.5-5.0) g/dL 11/10/17 11/10/17 11/10/17 Range/Units 04:30 04:30 05:14 RBC 3.01 L (3.80-5.40) m/uL Hgb 7.9 L (11.4-16.0) gm/dL Hct 26.0 L (34.0-46.0) % MCHC 30.6 L (31.0-37.0) g/dL RDW 17.5 H (11.5-15.5) % Lymphocytes # 0.5 L (1.0-4.8) k/uL ABG pH 7.47 H (7.35-7.45) ABG HCO3 30 H (21-25) mmol/L ABG Total CO2 32 H (19-24) mmol/L ABG O2 Saturation 98.4 H (94-97) % Potassium 3.4 L (3.5-5.1) mmol/L BUN 50 H (7-17) mg/dL Creatinine 2.10 H (0.52-1.04) mg/dL Glucose 113 H (74-99) mg/dL POC Glucose (mg/dL) (75-99) mg/dL Phosphorus 5.2 H (2.5-4.5) mg/dL Total Protein 5.5 L (6.3-8.2) g/dL Albumin 2.5 L (3.5-5.0) g/dL 11/10/17 Range/Units 06:10 RBC (3.80-5.40) m/uL Hgb (11.4-16.0) gm/dL Hct (34.0-46.0) % MCHC (31.0-37.0) g/dL RDW (11.5-15.5) % Lymphocytes # (1.0-4.8) k/uL ABG pH (7.35-7.45) ABG HCO3 (21-25) mmol/L ABG Total CO2 (19-24) mmol/L ABG O2 Saturation (94-97) % Potassium (3.5-5.1) mmol/L BUN (7-17) mg/dL Creatinine (0.52-1.04) mg/dL Glucose (74-99) mg/dL POC Glucose (mg/dL) 133 H (75-99) mg/dL Phosphorus (2.5-4.5) mg/dL Total Protein (6.3-8.2) g/dL Albumin (3.5-5.0) g/dL Microbiology - Last 24 Hours (Table) 11/08/17 11:50 Urine Culture - Final Urine,Catheterized Kaley albicans 11/08/17 14:50 Gram Stain - Preliminary Pleural Fluid Body Fluid Culture - Preliminary Assessment and Plan Assessment: Impression 1. ATN secondary to cardiorenal syndrome and vancomycin with dialysis dependency last dialysis day before yesterday 11/07/2017 which was pure Ultrafiltration for 3 L. Her urine output is 7695 and chest tube output was 300 mL's. Lasix is being reduced from 80 every 10[birth year]/1979 daily this morning on 11/10/2017. Her creatinine went up slightly to 2.1 remains somewhat fluid overloaded with edema, on the vent on 40% % FiO2. 2. Fluid overloaded with edema,on Lasix 80 milligrams every 8 3 . Chronic kidney disease stage III, etiology is diabetic nephropathy and nephrosclerosis. Baseline creatinine is 1.5-2 4. Ventilator pendent respiratory failure, improved from 50% to 40% FiO2, with improvement in her right chest expansion of the chest x-ray 5. Diabetes and diabetic nephropathy 6. Collapsed right lung, status post bronchoscopy 11/01/2017, chest shows improvement, further deterioration on 11/08/2017 requiring pigtail catheter insertion for pleural effusion. 7. Anemia hemoglobin 7.2 > 7.7> 7.9 8. Hypokalemia secondary to diuresis and dialysis, on replacement potassium at 3.4 Recommendation. 1. Continue to diuresis. Agree with the reduction in Lasix dose as she is now opening up with mobilization of fluid and a 7.6 L urine output on Lasix 80 daily 8. Lasix dose was reduced this morning to 80 daily 2. Will hold off further dialysis Her labs do not support any further dialysis. 3. Her Daniel catheter can stain for another 24-48 hours and see how she does. It will her to come out sooner later in the next 2 or 3 days
[2017-11-10 11:38] LABS: Glucose,Whole Blood 145 mg/dL (75-99)
--- NOTE | 2017-11-10 11:55 | P.PN ---
Subjective Progress Note Date: 11/10/17 65-year-old female patient is being seen in follow-up on 11/04/2017. This patient is morbidly obese with a BMI 33.9. She is in the intensive care is with acute on top of chronic history failure most likely on the basis of massive fluid overload. This morning, she is assist-control mode of ventilation at the rate of 20 with tidal volume of 400 and FiO2 of 50% with a PEEP of 10. Chest x-ray shows a right-sided pleural effusion. ET tube is in a good location. The blood gas showed a pH of 7.39 with a pCO2 of 46 and pO2 of 70 and this was on FiO2 of 50%. The patient is sedated with propofol at a dose of 50 g per KG per minute. She can arouse upon given a sedation holiday. In terms of her fluid overload, the patient has already received 2 sessions of hemodialysis 3 temporary dialysis catheter inserted in the right IJ. I discussed the case with nephrology today. We decided to hold off on dialysis as the patient is producing adequate amount of urine output while being on Lasix 83 g IV push every 12 hours. The patient is improving in terms of urine output and she is ready produced 1.9 L of urine output since morning. The creatinine from today's at 1.9 and the rest of the electrodes are all within normal limits. No significant acidosis. Bronchoscopy was done earlier and the patient did not reveal any significant microbial growth and the bronchioloalveolar lavage was also negative. Patient is on IV Fortaz and infectious disease on the case regarding the lower extremity wounds. On 11/05/2017 I'm seeing this patient for a follow-up. The patient is sedated and intubated on a mechanical ventilator. She is an assist-control mode of ventilation at the rate of 12 and FiO2 of 50% and a PEEP of 8 with a tidal volume of 400. She is was sedated with Diprivan and she is calm and comfortable. No significant orotracheal secretion. Chest x-ray showing a large right-sided pleural effusion and his tube is in a good location. The blood gas showed a pH of 7.4 with a pCO2 of 44 and pO2 of 63. We held off on dialysis yesterday as the patient is improving in terms of urine output. She is producing almost 50 mL an hour and she is on Lasix 80 mg IV push every 8 hours. The net fluid balance is -697 mL over the past 24 hours. We have contemplated PEG and trach. We will also contemplated chest tube insertion however we were not successful and obtaining consent. We're the process of getting a legal guardian at this point to undergo this procedures. Unfortunately nothing much can be done without any consent knowing that all of these procedures are not life saving or do not being done for immediate life- threatening conditions. The patient is not having any fever. No leukocytosis. Hemoglobin is at 7. Creatinine is down to 2. No pressors for now. Tolerating the tube feeds. Antibiotic coverage includes IV Fortaz and clindamycin. No other significant events over the past 24 hours for now. On 11/06/2017 I'm seeing this patient in the intensive care unit in a follow- up. We were able to finally get a public guardian for this patient. As mentioned she want to be a full code and based on that the public guardian is agreeable to any further intervention including a PEG and a trach. My intention is to give the patient is sedation holiday for a longest period of time and assess the patient's underlying mental status. I would like to see some response and alertness from this patient off sedation. At the same time would like to get this patient another session of ultrafiltration together as dry as possible in consideration for possible weaning/extubation. If this fails , the alternative will be long-term PEG and trach. On today's chest x-ray, the patient is small lung volumes and the patient continues to have a right-sided pleural effusion. She remains on assist control mode mode of ventilation. She is on a volume cycle with a tidal volume of 400 and FiO2 of 50% and a PEEP of 5. The blood gases from this morning showed a pH of 7.4 with a pCO2 of 44 and pO2 of 60 and this was on the 50% FiO2. The patient is on no pressors. The patient is afebrile. The patient is covered with broad-spectrum antibiotics. ID is on the case. Renal function continues to be impaired with a creatinine of 2.0. The patient underwent ultrafiltration yesterday with removal of 3 L and another session of ultrafiltration will be done today and this was coordinated with nephrology. She is afebrile. She is tolerating her tube feeds. She is producing good urine output while on IV Lasix. Otherwise no other significant events over the past 24 hours. On 11/07/2017, the patient remains in intensive care unit intubated on a mechanical ventilator. I was very close to consider extubating this patient however is unaffected that she was started on an FiO2 of 60% and based on her weakness and poor ability to clear the rest or secretions, decided not to. I decided to give this patient another day on a mechanical ventilator during which I'm going to give her another session of ultrafiltration diuresis with IV Lasix and optimize further volume status and consider possibility of extubation today. This will be a very difficult extubation. The patient may very well failed extubation. Alternative would be long-term mechanical ventilation through a tracheostomy tube which I have ordered the agreed upon with her legal guardian. I would like however to try at least an extubation on this patient once she is fully dialyzed and diuresis. Based on this, it kept on the sedation this morning. She was able to arouse from her sedation to the point where she was following simple commands. She remains extremely weak and upper and lower extremities. Ultrafiltration will be done today and the goal be removal of 3 L of IV fluids. She is producing adequate amount of urine output and she is still on IV Lasix. Renal function from today shows a creatinine of 2.1. As far as vent support, the patient is still on the same vent setting within assist-control of 20, tidal volume of 400 with an FiO2 of 60% and a PEEP of 5. Her morning blood gases showed a pH of 7.38 with a pCO2 of 46 and pO2 of 85. I was able to cut down the FiO2 down to 50% and she maintain a saturation above 90%. Chest x-ray findings are still the same and the patient has a right- sided pleural effusion. Lung volumes are essentially small at this point in time. She is tolerating her tube feeds. We will make it final decision on extubation versus long-term PEG and trach and long-term mechanical ventilation with the next 24 hours. I am inclined to at least give her a trial of extubation prior to going to a long-term vent management system especially with her poor baseline performance and functional status and poor long-term prognosis. She is afebrile. No other significant events occurred over the past 24 hours. On 11/08/2017, I'm seeing this patient for a follow-up. I decided not to extubate the patient. The patient did not wake up appropriately and I do not think she had the strength on the motor function or diabetic to clear rest or secretions if extubation was performed. Based on that the patient was kept on a mechanical ventilator throughout the night and earlier this morning the patient was taken to the operating room and she underwent a PEG and tracheostomy tube insertion. This was done by Dr. Mccarty. The patient is back to the intensive care unit and the patient is currently being weaned off the sedation for now. She is hemodynamically stable. Chest x-ray shows significant opacification of the right lung and this was noted as the patient is having on and off right-sided pleural effusion in addition to some underlying atelectasis at the chest x-ray shows volume loss in addition to pleural effusion. Based on this, I discussed the case with interventional radiology and we decided to receiving the pigtail catheter insertion at the bedside under ultrasound guidance. This will be likely done today. Meanwhile, the patient is hemodynamically stable. Her last dialysis and ultrafiltration was done yesterday. The patient is in a negative fluid balance. The patient is producing adequate amount of urine output. The patient is an assist-control mode at the rate of 20 with tidal volume of 400 and FiO2 of 50% and a PEEP of 5 and a morning blood gases showed a pH of 7.42 with a pCO2 of 46 and pO2 of 72. The creatinine is at 1.8. Rest of the electrodes are within normal limits and a potassium level needs to be replaced. She remains on IV Lasix and she is producing adequate urine output. On 11/09/2017, the patient is post PEG and trach. The patient is taken off sedation and we are in the process of evaluating her mental status. I'm concerned that the patient has significant degree of metabolic encephalopathy in addition to drug effect affecting her mentation. The patient meanwhile remains on a mechanical ventilator. She has a Shiley extra long tracheostomy tube. No leaks around the tube. She is an assist-control mode of ventilation. Vent settings remain the same as yesterday and FiO2 was up down to 40% and the patient is on a tidal volume of 400. She is also on a PEEP of 5 at the rate of 20. As mentioned, the patient had significant opacification of the right lung yesterday and I was able to work with interventional radiology and insert a pigtail catheter in the right lung and she has drained approximately 1.5 L of pleural fluid thus far. On today's chest x-ray, there is significant improvement in the aeration of the right lower lobe although the patient had some right upper lobe atelectasis with volume loss and that is the cutoff sign indicating an underlying mucous plug. Note that she was bronchoscoped earlier during this hospitalization and therapeutic it was suctioning was done and she did not have any microbial growth. She is on IV cefepime. She'll feeds will be restarted. PEG tube site is clean. No fever. No chills. No hypotension. No other issues otherwise for now. On 11/10/2017, the patient is post PEG and trach. She remains on a mechanical ventilator. I am quite impressed by today's chest x-ray. There is really expansion of the right upper lobe as likely the tidal volume up to 500. The pleural effusion on the right side has completely resolved and the patient has a pigtail catheter in the right lung which will be kept in for another 24 hours. The patient is very comfortable while being assist-control mode at the rate of 20 with a tidal volume of 500 with a PEEP of 5 and an FiO2 of 40%. The blood gases showed a pH of 7.47 with a pCO2 of 42 and pO2 of 95 on 40% FiO2. No rest or secretions. The active issue for now intensive neurologic impairment. While being off sedation for 24 hours the patient would open up her eyes 2 and occasionally follows some simple commands and she is not tracking and she is not consistent in her ability to communicate or interact with the nurses. She is extremely weak to the point where she cannot raise her arms and her legs against gravity. Cough is weak. She is tolerating her tube feeds. She is afebrile. Hemoglobin is at 7.8 and the patient is diuresing well and she has been negative fluid balance and she had marked improvement in the third spacing and excessive edema and for that reason I cut down the IV Lasix. Renal function is stable with a creatinine of 2.1. Objective - Vital Signs Vital signs: Vital Signs Temp 98.7 F 11/10/17 08:00 Pulse 92 11/10/17 11:19 Resp 16 11/10/17 11:03 BP 124/60 11/08/17 18:00 Pulse Ox 100 11/10/17 10:00 Intake & Output 11/09/17 11/10/17 11/10/17 18:59 06:59 18:59 Intake Total 791 959 364.025 Output Total 4545 3150 550 Balance -6107 -2191 -185.975 Weight 159.7 kg 156.7 kg Intake: IV 255 221 139 0.9 100 130 30 cefTAZidime 1 gm In 100 50 100 Sodium Chloride 0.9% 50 ml @ 100 mls/hr IVPB Q12HR [facility] Rx#:[id number] pressure bag 55 41 9 Intake, IV Titration 100 27.025 Amount Propofol 1,000 mg In 100 27.025 Empty Bag 1 bag @ Titrate IV .Q0M [facility] Rx#: [id number] Tube Feeding 346 558 168 Other 90 180 30 Output: Chest Tube Drainage 170 130 Pleural Catheter Right 170 130 Urine 4375 3020 550 Uretheral (Guo) 600 Other: Voiding Method Indwelling Catheter Indwelling Catheter Indwelling Catheter # Voids 1 1 ABP, PAP, CO, CI - Last Documented Arterial Blood Pressure 165/53 - Exam No acute distress, sedated, and the patient has a tracheostomy tube in place.. The patient was taken off sedation this morning. She opens up her eyes patient does not track or follow any commands at this point in time. HEENT examination is grossly unremarkable. Mucous membranes are moist. The patient a tracheostomy tube in place Neck supple. Full range of motion. No adenopathy thyromegaly or neck vein distention. Cardiovascular examination reveals regular rhythm rate. S1-S2 normal. No S3 or S4. No discernible murmur noted. Heart sounds are very distant. Lungs reveal severely diminished breath sounds bilaterally, right greater than left. There are bilateral coarse rhonchi. Crackles are noted at both bases. No wheezes are appreciated. Very little air entry on the right side noted. Breath sounds are about what they were the day before. There is not been much change. Abdominal exam revealed normal bowel sounds. The abdomen was soft, non-tender, and without masses, organomegaly, or appreciable enlargement of the abdominal aorta. The PEG tube site is dry clean and intact at this point in time Extremities are intact. Chronic lower extremity edema is noted. She also is chronic venous stasis changes with hyperpigmentation. Heels are bandaged. Slightly improved edema of the lower extremities is noted. 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 Left heel measures at 2.4 x 3.5 x 0.2 cm right heel ulceration measuring at 2 x 2 x 0.2 total contact cast was removed Skin is without rash or lesion. See the lower extremity examination as mentioned above Neurologic examination reveals that the patient is arousable off the sedation. She is deeply sedated as the patient arrived from the operating room and currently the patient is receiving sedation holiday. - Labs CBC & Chem 7: 11/10/17 04:30 11/10/17 04:30 Labs: Abnormal Lab Results - Last 24 Hours (Table) 11/09/17 11/09/17 11/10/17 Range/Units 11:54 17:38 00:06 RBC (3.80-5.40) m/uL Hgb (11.4-16.0) gm/dL Hct (34.0-46.0) % MCHC (31.0-37.0) g/dL RDW (11.5-15.5) % Lymphocytes # (1.0-4.8) k/uL ABG pH (7.35-7.45) ABG HCO3 (21-25) mmol/L ABG Total CO2 (19-24) mmol/L ABG O2 Saturation (94-97) % Potassium (3.5-5.1) mmol/L BUN (7-17) mg/dL Creatinine (0.52-1.04) mg/dL Glucose (74-99) mg/dL POC Glucose (mg/dL) 107 H 114 H 121 H (75-99) mg/dL Phosphorus (2.5-4.5) mg/dL Total Protein (6.3-8.2) g/dL Albumin (3.5-5.0) g/dL 11/10/17 11/10/17 11/10/17 Range/Units 04:30 04:30 05:14 RBC 3.01 L (3.80-5.40) m/uL Hgb 7.9 L (11.4-16.0) gm/dL Hct 26.0 L (34.0-46.0) % MCHC 30.6 L (31.0-37.0) g/dL RDW 17.5 H (11.5-15.5) % Lymphocytes # 0.5 L (1.0-4.8) k/uL ABG pH 7.47 H (7.35-7.45) ABG HCO3 30 H (21-25) mmol/L ABG Total CO2 32 H (19-24) mmol/L ABG O2 Saturation 98.4 H (94-97) % Potassium 3.4 L (3.5-5.1) mmol/L BUN 50 H (7-17) mg/dL Creatinine 2.10 H (0.52-1.04) mg/dL Glucose 113 H (74-99) mg/dL POC Glucose (mg/dL) (75-99) mg/dL Phosphorus 5.2 H (2.5-4.5) mg/dL Total Protein 5.5 L (6.3-8.2) g/dL Albumin 2.5 L (3.5-5.0) g/dL 11/10/17 11/10/17 Range/Units 06:10 11:36 RBC (3.80-5.40) m/uL Hgb (11.4-16.0) gm/dL Hct (34.0-46.0) % MCHC (31.0-37.0) g/dL RDW (11.5-15.5) % Lymphocytes # (1.0-4.8) k/uL ABG pH (7.35-7.45) ABG HCO3 (21-25) mmol/L ABG Total CO2 (19-24) mmol/L ABG O2 Saturation (94-97) % Potassium (3.5-5.1) mmol/L BUN (7-17) mg/dL Creatinine (0.52-1.04) mg/dL Glucose (74-99) mg/dL POC Glucose (mg/dL) 133 H 145 H (75-99) mg/dL Phosphorus (2.5-4.5) mg/dL Total Protein (6.3-8.2) g/dL Albumin (3.5-5.0) g/dL Microbiology - Last 24 Hours (Table) 11/08/17 11:50 Urine Culture - Final Urine,Catheterized Kaley albicans 11/08/17 14:50 Gram Stain - Preliminary Pleural Fluid Body Fluid Culture - Preliminary Assessment and Plan Plan: Assessment 1 acute on top of chronic hypoxic history failure likely on the basis of CHF/ fluid overload and development of a large right-sided pleural effusion. The patient is currently still mechanically ventilated for a tracheostomy tube. The right-sided pleural effusion was evacuated by a pigtail catheter. The right upper lobe atelectasis is also recovered as the patient is being mechanically ventilated with a volume cycled the tidal volume of 500 and a PEEP of 5. Blood gases was noted and the patient has adequate oxygenation on a 40% FiO2. 2 right lung collapse, post bronchoscopy on 11/01/2017 with a bronchioloalveolar lavage that showed no microbial growth and the patient on empiric antibiotic coverage with IV cefepime. Chest x-ray from today shows complete expansion of the right upper lobe. 3 morbid obesity with a BMI 53.9 4 acute on top of a chronic stage III kidney failure, the patient is currently producing adequate amount of urine output. No dialysis for the past 3 days and the patient is producing adequate amount of urine output and along with ultrafiltration the volume status is improved significantly. 5 anemia of chronic disease secondary to chronic renal failure, hemoglobin is stable at 7. 9 6 diabetes mellitus 7 nonhealing ulcers in the lower extremities bilaterally 8 hypertension 9 previous history of cellulitis of the lower eczematous secondary to pseudomonas and klebsiella Plan Keep the patient off sedation and monitor the mental status. Keep the vent support. Very happy with the results of the right lung expansion and there is complete recovery of the right upper lobe atelectasis and evacuation left-sided pleural effusion. We'll keep the pigtail for another 24 hour and remove it in a.m. if the output remains low. The LDH in the fluid is 192 indicating probably a transudate. Active issue remains the altered mentation and encephalopathy. We'll keep her off sedation monitor the neurologic functions as this may be an important factor in deciding long-term care of this patient. She is obviously encephalopathic and she is not communicating effectively at this point in time. Continue the tube feeds. Continue antibiotics. Cut down the IV Lasix. We'll continue to follow. May be a candidate for select specialty at a later stage. Critical care evaluation more than 40 minutes Time with Patient: Greater than 30
[2017-11-10] MEDS: DARBEPOETIN ALFA 40 MCG/0.4 ML SYRINGE SQ SCH (13:12)
[2017-11-10] MEDS ORDERED: POTASSIUM BICARBONATE/CIT AC 20 MEQ TABLET.EFF NG-TUBE SCH (14:00)
[2017-11-10] MEDS ORDERED: hydrALAZINE HCL 20 MG/ML 1 ML VIAL IVP PRN (14:00)
[2017-11-10] MEDS: ASPIRIN 81 MG PO SCH (15:33)
--- NOTE | 2017-11-10 16:25 | P.PN ---
Subjective Progress Note Date: 11/10/17 66 year old woman with superobesity presents to the ER with marked increase of shortness of breath, with some chest pain also occurring. At admission there was evidence of worsening of her chronic renal failure and significant volume overload, with some diuresis she is already receiving relief from her extensive shortness of breath. At this time she is not complaining of any chest pain. She was found and she has been seen by pulmonary critical care, and there is a possibility of a thoracentesis future. At this time she denies other acute new complaints. A total contact cast is in place on the left leg for the pressure ulcer to the left heel is negative for any difficulties at all. The chronic ulcerations of the right heel is also without pain. She is aware of improved urinary output since being on the higher doses of Lasix. As noted she has a history of significant underlying coronary artery disease with a history of congestive heart failure with known diastolic dysfunction. She is feeling slightly better at this time but certainly not nearly her baseline. She does have significant debility. 10/28/2017 the patient has declined further today. She is requiring BiPAP for oxygen saturation, she is somewhat confused but does seem to be comfortable. She is unable to complain of any new symptoms 10/29/2017 the patient is much more awake and alert today. Her BiPAP is in place and she is no longer confused. She recognized me by name and knows that she is at the hospital. She is denying significant discomfort in her shortness of breath is improved. October 31, 2017 patient patient is worsen she is now developed respiratory failure and required intubation with mechanical ventilation and is sedated. She' s been seen by nephrology and with volume overload is receiving hemodialysis. The hope is that with dialysis she'll improve her pulmonary status from improved volume status. No fevers are noted. No new positive cultures. 11/01/2017 patient remained intubated sedated and mechanically ventilated with respiratory failure. She is receiving another course of hemodialysis which will hopefully remove a total of 6 L of fluid over this 3 day time frame. She still remains grossly volume overloaded. She fortunately does have some urinary output despite her renal failure that appears to multifactorial including vancomycin therapy. Psychosocial has had great difficulties, it appears that the social workers will ask for guardianship from the courts coming Saturday to make further plans. 11/04/2017 patient remains in intensive care unit intubated sedated and mechanically ventilated. Dialysis has helped remove some of her extensive edema and will have further dialysis tomorrow.her acidosis is improved, leukocytosis improved still has significant anemia. No new positive cultures. 11/07/2017 patient remains in intensive care unit intubated sedated and mechanically ventilated. She remains on dialysis to improve her gross volume overload. There was attempts today to hold sedation and potentially extubate and monitor status. However off sedation she is not following commands and has not had any improvement of her mental status. Appears to be plans for tracheostomy and PEG tube placement tomorrow.will likely then need LTAC placement. 11/08/2017 patient is now status post tracheostomy and PEG tube placement. She also had extensive right pleural effusion and a pigtail catheters been placed in large volumes of pleural fluid have been drained. Patient continues with hemodialysis. No new acute changes are noted, no vasopressor therapy today. 11/10/2017 patient remains in the intensive care unit mechanically ventilated via tracheostomy, PEG tube in place. Receiving hemodialysis for her extensive volume overload. Is doing somewhat better today and that she is more awake, her eyes are open, she looks to the observer and smiles. However no further interaction seems to occur. She does not track well when she is undergoing face -to-face interaction. Objective - Vital Signs Vital signs: Vital Signs Temp 98.8 F 11/10/17 12:00 Pulse 118 H 11/10/17 15:49 Resp 21 11/10/17 12:00 BP 124/60 11/08/17 18:00 Pulse Ox 100 11/10/17 12:00 Intake & Output 11/09/17 11/10/17 11/10/17 18:59 06:59 18:59 Intake Total 791 959 679.025 Output Total 4545 3150 1650 Balance -3754 -2191 -970.975 Weight 159.7 kg 156.7 kg Intake: IV 255 221 200 0.9 100 130 70 cefTAZidime 1 gm In 100 50 100 Sodium Chloride 0.9% 50 ml @ 100 mls/hr IVPB Q12HR [facility] Rx#:[id number] pressure bag 55 41 30 Intake, IV Titration 100 27.025 Amount Propofol 1,000 mg In 100 27.025 Empty Bag 1 bag @ Titrate IV .Q0M SHERWIN Rx#: [id number] Tube Feeding 346 558 392 Other 90 180 60 Output: Chest Tube Drainage 170 130 Pleural Catheter Right 170 130 Urine 4375 3020 1650 Uretheral (Guo) 600 Other: Voiding Method Indwelling Catheter Indwelling Catheter Indwelling Catheter # Voids 1 1 ABP, PAP, CO, CI - Last Documented Arterial Blood Pressure 182/53 - Exam 66-year-old woman with superobesity is now ventilated via tracheostomy sedated and mechanically ventilated Head exam was generally normal. There was no scleral icterus or corneal arcus. Mucous membranes were moist. Neck was supple and without jugular venous distension, thyromegaly, or carotid bruits. Carotids were easily palpable bilaterally. There was no adenopathy. Lungs sounds are diminished bilaterally especially in the right lung base along with some dullness to percussion Heart sounds are regular, positive S1-S2 and there is systolic ejection murmur grade 3/6 systolic the precordium Abdominal exam revealed normal bowel sounds. The abdomen was soft, non-tender, and without masses, organomegaly, or appreciable enlargement of the abdominal aorta. Extremities revealed +1-2 pitting edema there is no cyanosis or clubbing, 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, there is also evidence of chronic venous stasis and lower extremities bilaterally. the heel ulcerations are improving now that she is in the ICU and is not walking. Neurologic sedated on the ventilator - Labs CBC & Chem 7: 11/10/17 04:30 11/10/17 11:40 Labs: Abnormal Lab Results - Last 24 Hours (Table) 11/09/17 11/10/17 11/10/17 Range/Units 17:38 00:06 04:30 RBC 3.01 L (3.80-5.40) m/uL Hgb 7.9 L (11.4-16.0) gm/dL Hct 26.0 L (34.0-46.0) % MCHC 30.6 L (31.0-37.0) g/dL RDW 17.5 H (11.5-15.5) % Lymphocytes # 0.5 L (1.0-4.8) k/uL ABG pH (7.35-7.45) ABG HCO3 (21-25) mmol/L ABG Total CO2 (19-24) mmol/L ABG O2 Saturation (94-97) % Potassium (3.5-5.1) mmol/L BUN (7-17) mg/dL Creatinine (0.52-1.04) mg/dL Glucose (74-99) mg/dL POC Glucose (mg/dL) 114 H 121 H (75-99) mg/dL Phosphorus (2.5-4.5) mg/dL Total Protein (6.3-8.2) g/dL Albumin (3.5-5.0) g/dL 11/10/17 11/10/17 11/10/17 Range/Units 04:30 05:14 06:10 RBC (3.80-5.40) m/uL Hgb (11.4-16.0) gm/dL Hct (34.0-46.0) % MCHC (31.0-37.0) g/dL RDW (11.5-15.5) % Lymphocytes # (1.0-4.8) k/uL ABG pH 7.47 H (7.35-7.45) ABG HCO3 30 H (21-25) mmol/L ABG Total CO2 32 H (19-24) mmol/L ABG O2 Saturation 98.4 H (94-97) % Potassium 3.4 L (3.5-5.1) mmol/L BUN 50 H (7-17) mg/dL Creatinine 2.10 H (0.52-1.04) mg/dL Glucose 113 H (74-99) mg/dL POC Glucose (mg/dL) 133 H (75-99) mg/dL Phosphorus 5.2 H (2.5-4.5) mg/dL Total Protein 5.5 L (6.3-8.2) g/dL Albumin 2.5 L (3.5-5.0) g/dL 11/10/17 Range/Units 11:36 RBC (3.80-5.40) m/uL Hgb (11.4-16.0) gm/dL Hct (34.0-46.0) % MCHC (31.0-37.0) g/dL RDW (11.5-15.5) % Lymphocytes # (1.0-4.8) k/uL ABG pH (7.35-7.45) ABG HCO3 (21-25) mmol/L ABG Total CO2 (19-24) mmol/L ABG O2 Saturation (94-97) % Potassium (3.5-5.1) mmol/L BUN (7-17) mg/dL Creatinine (0.52-1.04) mg/dL Glucose (74-99) mg/dL POC Glucose (mg/dL) 145 H (75-99) mg/dL Phosphorus (2.5-4.5) mg/dL Total Protein (6.3-8.2) g/dL Albumin (3.5-5.0) g/dL Microbiology - Last 24 Hours (Table) 11/08/17 14:50 Gram Stain - Preliminary Pleural Fluid Body Fluid Culture - Preliminary 11/08/17 14:50 Anaerobic Culture - Preliminary Pleural Fluid 11/08/17 11:50 Urine Culture - Final Urine,Catheterized Kaley albicans Laboratory Results WBC 8.8 k/uL (3.8-10.6) 11/10/17 04:30 RBC 3.01 m/uL (3.80-5.40) L 11/10/17 04:30 Hgb 7.9 gm/dL (11.4-16.0) L 11/10/17 04:30 Hct 26.0 % (34.0-46.0) L 11/10/17 04:30 MCV 86.2 fL (80.0-100.0) 11/10/17 04:30 MCH 26.3 pg (25.0-35.0) 11/10/17 04:30 MCHC 30.6 g/dL (31.0-37.0) L 11/10/17 04:30 RDW 17.5 % (11.5-15.5) H 11/10/17 04:30 Plt Count 163 k/uL (150-450) 11/10/17 04:30 Neutrophils % 80 % 11/10/17 04:30 Lymphocytes % 5 % 11/10/17 04:30 Monocytes % 8 % 11/10/17 04:30 Eosinophils % 5 % 11/10/17 04:30 Basophils % 0 % 11/10/17 04:30 Neutrophils # 7.1 k/uL (1.3-7.7) 11/10/17 04:30 Lymphocytes # 0.5 k/uL (1.0-4.8) L 11/10/17 04:30 Monocytes # 0.7 k/uL (0-1.0) 11/10/17 04:30 Eosinophils # 0.4 k/uL (0-0.7) 11/10/17 04:30 Basophils # 0.0 k/uL (0-0.2) 11/10/17 04:30 Manual Slide Review Performed 11/01/17 04:06 Hypochromasia Marked 11/10/17 04:30 Anisocytosis Slight 11/10/17 04:30 ESR 69 mm/hr (0-20) H 10/28/17 05:47 Retic Count 6.7 % (0.5-2.0) H 11/06/17 04:15 PT 9.6 sec (9.0-12.0) 11/08/17 12:05 INR 1.0 (<1.2) 11/08/17 12:05 APTT 133.7 sec (22.0-30.0) H* 11/01/17 06:30 D-Dimer 1.80 mg/L FEU (<0.60) H 10/25/17 13:20 Sample Site nebo 11/10/17 05:14 ABG pH 7.47 (7.35-7.45) H 11/10/17 05:14 ABG pCO2 42 mmHg (35-45) 11/10/17 05:14 ABG pO2 95 mmHg (83-108) 11/10/17 05:14 ABG HCO3 30 mmol/L (21-25) H 11/10/17 05:14 ABG Total CO2 32 mmol/L (19-24) H 11/10/17 05:14 ABG O2 Saturation 98.4 % (94-97) H 11/10/17 05:14 ABG Base Excess 6.7 mmol/L 11/10/17 05:14 Timothy Test Yes 11/10/17 05:14 FiO2 40 % 11/10/17 05:14 Sodium 141 mmol/L (137-145) 11/10/17 04:30 Potassium 3.6 mmol/L (3.5-5.1) 11/10/17 11:40 Chloride 102 mmol/L (98-107) 11/10/17 04:30 Carbon Dioxide 29 mmol/L (22-30) 11/10/17 04:30 Anion Gap 10 mmol/L 11/10/17 04:30 BUN 50 mg/dL (7-17) H 11/10/17 04:30 Creatinine 2.10 mg/dL (0.52-1.04) H 11/10/17 04:30 Est GFR (CKD-EPI)AfAm 28 (>60 ml/min/1.73 sqM) 11/10/17 04:30 Est GFR (CKD-EPI)NonAf 24 (>60 ml/min/1.73 sqM) 11/10/17 04:30 Glucose 113 mg/dL (74-99) H 11/10/17 04:30 POC Glucose (mg/dL) 145 mg/dL (75-99) H 11/10/17 11:36 POC Glu Tread Booker ID 11/10/17 11:[address] Glu mg/dL 103 10/31/17 04:20 Hemoglobin A1c 5.2 % (4.0-6.0) 10/31/17 04:20 Plasma Lactic Acid Jamar <0.5 mmol/L (0.7-2.0) L 10/31/17 04:20 Calcium 8.5 mg/dL (8.4-10.2) 11/10/17 04:30 Phosphorus 5.2 mg/dL (2.5-4.5) H 11/10/17 04:30 Magnesium 2.1 mg/dL (1.6-2.3) 11/10/17 04:30 Iron 27 ug/dL (50-170) L 11/06/17 04:15 TIBC 253 ug/dL (228-460) 11/06/17 04:15 Iron Saturation 10.67 (12.00-45.00) L 11/06/17 04:15 Ferritin 108.3 ng/mL (10.0-291.0) 11/06/17 04:15 Total Bilirubin 0.2 mg/dL (0.2-1.3) 11/10/17 04:30 AST 16 U/L (14-36) 11/10/17 04:30 ALT 39 U/L (9-52) 11/10/17 04:30 Alkaline Phosphatase 71 U/L (38-126) 11/10/17 04:30 Lactate Dehydrogenase 359 U/L (313-618) 11/08/17 05:30 Total Creatine Kinase 22 U/L (30-135) L 10/29/17 05:28 CK-MB (CK-2) 1.5 ng/mL (0.0-2.4) 10/29/17 05:28 CK-MB (CK-2) Rel Index 6.8 10/29/17 05:28 Troponin I <0.012 ng/mL (0.000-0.034) 10/26/17 05:40 C-Reactive Protein 14.6 mg/L (<10.0) H 10/28/17 05:47 NT-Pro-B Natriuret Pep 3960 pg/mL 10/25/17 13:20 Total Protein 5.5 g/dL (6.3-8.2) L 11/10/17 04:30 Total Protein (PEP) 6.1 g/dL (6.2-8.2) L 10/28/17 05:47 Albumin 2.5 g/dL (3.5-5.0) L 11/10/17 04:30 Albumin (PEP) 2.76 g/dL (3.80-4.90) L 10/28/17 05:47 Ppvui-3-Eclvunhjy 0.45 g/dL (0.10-0.40) H 10/28/17 05:47 Gdvsc-2-Sddmazuel 0.59 g/dL (0.60-1.00) L 10/28/17 05:47 Beta Globulins 1.38 g/dL (0.60-1.30) H 10/28/17 05:47 Gamma Globulins 0.92 g/dL (0.70-1.50) 10/28/17 05:47 PEP Interpretation SEE NOTE 10/28/17 05:47 Vitamin B12 609.0 pg/mL (200.0-944.0) 11/06/17 04:15 Methylmalonic Acid 2.18 umol/L (<0.40) H 11/06/17 04:15 RBC Folate 1,058 ng/mL (280 - 791) H 11/06/17 04:15 TSH 1.370 mIU/L (0.465-4.680) 10/31/17 04:20 Cortisol 24 ug/dL 10/31/17 04:20 Urine Color Red 10/30/17 18:45 Urine Appearance Turbid (Clear) H 10/30/17 18:45 Urine pH 5.5 (5.0-8.0) 10/30/17 18:45 Ur Specific [place] 1.015 (1.001-1.035) 10/30/17 18:45 Urine Protein 2+ (Negative) H 10/30/17 18:45 Urine Glucose (UA) Trace (Negative) H 10/30/17 18:45 Urine Ketones Negative (Negative) 10/30/17 18:45 Urine Blood Large (Negative) H 10/30/17 18:45 Urine Nitrite Negative (Negative) 10/30/17 18:45 Urine Bilirubin Negative (Negative) 10/30/17 18:45 Urine Urobilinogen <2.0 mg/dL (<2.0) 10/30/17 18:45 Ur Leukocyte Esterase Large (Negative) H 10/30/17 18:45 Urine RBC 113 /hpf (0-5) H 10/30/17 18:45 Urine WBC >182 /hpf (0-5) H 10/30/17 18:45 Urine WBC Clumps Many /hpf (None) H 10/30/17 18:45 Ur Squamous Epith Cells 1 /hpf (0-4) 10/28/17 02:27 Urine Bacteria Many /hpf (None) H 10/30/17 18:45 Granular Casts 129 /lpf (0) 10/30/17 18:45 Urine Yeast (Budding) Rare /hpf (None) H 10/28/17 02:27 Fluid Source Pleural 11/08/17 14:50 Fluid Color Yellow 11/08/17 14:50 Fluid Appearance Hazy 11/08/17 14:50 Fluid RBC 326 /uL 11/08/17 14:50 Fluid Nucleated Cells 144 /uL 11/08/17 14:50 Fluid Polynuclear WBCs 10 % 11/08/17 14:50 Fluid Mononuclear WBCs 90 % 11/08/17 14:50 Fluid Eosinophils 1 % 11/01/17 11:01 Body Fluid Glucose Source Pleural Fluid 11/08/17 14:50 Fluid Glucose 118 mg/dL 11/08/17 14:50 Body Fluid LDH Source Pleural Fluid 11/09/17 15:00 Fluid LDH 192 U/L 11/09/17 15:00 Random Vancomycin 19.5 ug/mL 11/05/17 04:12 Serum ALYCE Interpret SEE NOTE 10/28/17 05:47 DIANNE Screen NEGATIVE (NEGATIVE) 10/28/17 05:47 c-ANCA <1:20 Titer (<1:20) 10/25/17 13:00 p-ANCA <1:20 Titer (<1:20) 10/25/17 13:00 Complement C3 156.0 mg/dL (80.0-207.0) 10/28/17 05:47 Complement C4 33.6 mg/dL (10.0-53.0) 10/28/17 05:47 Tot Complement (CH50) 91 U/mL (42 - 95) 10/29/17 05:28 Free Corona LC, Quant 20.30 mg/dL (0.33-1.94) H 10/31/17 04:20 Free Lambda LC, Quant 2.79 mg/dL (0.57-2.63) H 10/31/17 04:20 Hepatitis A IgM Ab Non-Reactive (Non-Reactive) 10/28/17 05:47 Hep Bs Antigen Non-Reactive (Non-Reactive) 10/30/17 19:00 Hep Bs Antibody Non-Reactive (Non-Reactive) 10/30/17 19:00 Hep Bs Antibody, Quant 3.5 mIU/mL 10/30/17 19:00 Hep B Core IgM Ab Non-Reactive (Non-Reactive) 10/28/17 05:47 Hep C IgG Ab Non-Reactive (Non-Reactive) 10/28/17 05:47 Virus Source See Below 11/01/17 11:01 Viral Test See Below 11/01/17 11:01 Virus Analysis Interp See Below 11/01/17 11:01 Blood Type B Positive 11/07/17 07:25 Blood Type Recheck No 11/07/17 07:25 Antibody Screen NEGATIVE 11/07/17 07:25 Crossmatch See Detail 10/26/17 18:58 Spec Expiration Date 11/10/2017 - 232411/07/17 07:25 Microbiology 11/08/17 14:50 Pleural Fluid Gram Stain - Preliminary 11/08/17 14:50 Pleural Fluid Body Fluid Culture - Preliminary 11/08/17 14:50 Pleural Fluid Anaerobic Culture - Preliminary 11/08/17 11:50 Urine,Catheterized Urine Culture - Final Kaley albicans 11/01/17 11:01 Bronchial Washings - Right Fungal Culture - Preliminary Kaley albicans 11/01/17 11:01 Bronchial Washings - Right Gram Stain - Final 11/01/17 11:01 Bronchial Washings - Right Bronchial Washings Culture - Final Kaley albicans 10/31/17 21:15 Sputum Gram Stain - Final 10/31/17 21:15 Sputum Sputum Culture - Final Kaley albicans 11/01/17 11:01 Bronchial Washings - Right Acid Fast Bacilli Smear - Final 11/01/17 11:01 Bronchial Washings - Right Acid Fast Bacilli Culture - Preliminary 10/26/17 17:30 Blood Blood Culture - Final No Growth after 144 hours 10/30/17 18:45 Urine,Catheterized Urine Culture - Final 10/25/17 18:17 Blood Blood Culture Gram Stain - Final 10/25/17 18:17 Blood Blood Culture - Final Staphylococcus epidermidis 10/28/17 02:27 Urine,Voided Urine Culture - Final 10/26/17 20:41 Ankle - Right Gram Stain - Final 10/26/17 20:41 Ankle - Right Wound Culture - Final Klebsiella oxytoca Pseudomonas aeruginosa 10/25/17 18:17 Blood Blood Culture - Final Assessment and Plan (1) Diabetes mellitus type 2, uncontrolled, with complications Current Visit: No Status: Acute Priority: Medium Code(s): E11.8 - TYPE 2 DIABETES MELLITUS WITH UNSPECIFIED COMPLICATIONS; E11.65 - TYPE 2 DIABETES MELLITUS WITH HYPERGLYCEMIA SNOMED Code(s): 223041871 (2) Diabetic ulcer of heel Narrative/Plan: 66-year-old woman who has superobesity presented to Hospital from the extended care facility with increasing shortness of breath. If the admission there is evidence of fluid overload and worsening of her chronic diastolic congestive heart failure. It is noted that she has developed a right pleural effusion and has been seen by pulmonary medicine. Goal will be for further diuresis before any attempt of a thoracentesis. She this point and was more comfortable than admission, appears her chest pain has improved. Physical chronic ulcerations the left heel and a total contact cast is in place. This is removed tomorrow. The ulceration to the right heel has the Opticel silver in place which is adequate and can be changed every other day. She does have a chronic anemia that has worsened over the last year. This may be worsening her heart failure and will be further evaluated at this time. She is being treated for this significant infection to heal with intravenous vancomycin at the [facility] facility. Vancomycin will continue also had and Rocephin now based on prior culture results. Patient is a blood culture drawn it appears to be contamination would need no further ulceration of treatment unless there are further positive blood cultures. Given that she does not have fevers or chills it is not likely that she has a line sepsis. 10/28/2017 patient statuses worsened today. Her pulmonary status seems to have declined and she is requiring BiPAP for adequate oxygenation. She is more confused with her current respiratory difficulties. She however is not agitated and does not seem to be uncomfortable. BiPAP is reapplied and is being watched closely to try to keep into place. Blood culture contamination. Wound culture has gram-negative bacilli and at this time vancomycin is being continued to complete his course of therapy from the prior bony infection, Rocephin is being utilized until there is further culture data. Her prognosis is poor. 10/29/2017 the patient is improved today. With her BiPAP and place her mentation is clear. The ulceration of the left heel will be treated with the silver alginate dressing also. Antibiotic therapy will be altered from Rocephin to ceftazidime given the isolated Klebsiella and Pseudomonas. She continues to have difficulty with her renal failure is being followed by nephrology. She is yet to clear her last dose of antibiotic therapy (vancomycin ) that was given before her admission. The patient is very weak and will need to complete a course of physical therapy before she will be able to get back to her home setting. Nephrology is relating if she does not have further improvement they will then consider renal replacement therapy to improve her fracture volume overload chronic respiratory failure and acidosis. 10/31 2017 d the patient is now developed respiratory failure and is required intubation with sedation and mechanical ventilation. She is comfortable at this time and is well sedated. Receiving hemodialysis to improve her volume overload and her acidosis. The acute renal failure appears to be multifactorial and it is as she has been vancomycin therapy. 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 She is nearing the end of course of that treatment and with the renal failure the vancomycin level has remained high for the last several days and likely will be able to complete course of therapy without any further dosing. With the gram negatives being seen from the ankle culture Rocephin was added. This is transition to ceftazidime given the finding of pseudomonas at the site. 11/01/2017reveals the patient to remain on the ventilator is intubated and sedated, seems comfortable. Seething further courses of hemodialysis today. Goal is for further fluid removal to improve her volume overload status to improve her respiratory failure. Her sepsis appears to be stable. She will receive no further doses of vancomycin at this time still has adequate levels at this time. She had mucus plugging earlier in the day and a bronchoscopy was performed urgently. Cultures are pending which will further direct antimicrobial therapy as needed. Pathogens isolated from the leg Fortaz is being utilized with also cover pneumonia, still has therapeutic levels of vancomycin. 11/04/2017 patient remains in intensive care unit intubated sedated and mechanically ventilated. Does appear to be comfortable and with her several courses dialysis's had some improvement of her extensive edema and volume overload. Antimicrobial therapy as well as ceftazidime for the pathogens from the ankle ulceration. Vancomycin therapy has completed. Her creatinine is improved and is at 1.97 today. Social work team is working with the courts to have a guardian appointed to make the appropriate plans. 11/08/2017 patient has had a tracheostomy and PEG tube placed today. The patient is receiving antibiotic therapy with ceftazidime for gram-negative isolated from leg and for potential pneumonia. She is stable and hopefully with the tracheostomy and the pigtail catheter placed into the pleural space will be further improvement of her pulmonary status. Working with the guardian for placement in long-term care with ventilator care. 11/10/2017 patient is stable status post tracheostomy and PEG tube placement. She also in the pigtail catheter placed for the pleural effusion. She seems comfortable today does seem to recognize interviewer and smiles upon my presentation. No other interactions are occurring though. Is noted that she has multiple cultures now growing Kaley and subsequently fluconazole will be added. Current Visit: Yes Status: Chronic Priority: High Code(s): E11.621 - TYPE 2 DIABETES MELLITUS WITH FOOT ULCER; L97.409 - NON-PRS CHRONIC ULCER OF UNSP HEEL AND MIDFOOT W UNSP SEVERT SNOMED Code(s): 75190862 (3) Severe obesity (BMI >= 40) Current Visit: Yes Status: Chronic Code(s): E66.01 - MORBID (SEVERE) OBESITY DUE TO EXCESS CALORIES SNOMED Code(s): 968695260
[2017-11-10] MEDS: FLUCONAZOLE ORAL SUSP 1,400 MG/35 ML BOTTLE PO SCH (16:49)
--- NOTE | 2017-11-10 17:51 | P.PN ---
Subjective Progress Note Date: 11/10/17 Principal diagnosis: Acute respiratory failure, pleural effusion Patient has been off sedation for 24 hours, currently she would open up her eyes and occasionally follows some simple commands but patient is not tracking and she is not consistent in her ability to communicate or interact. She is extremely weak to the point where she cannot raise her arms and her legs against gravity. Cough is weak as well. She is tolerating her tube feeds. She is afebrile. Objective - Vital Signs Vital signs: Vital Signs Temp 98.3 F 11/10/17 16:00 Pulse 120 H 11/10/17 16:00 Resp 25 H 11/10/17 16:00 BP 124/60 11/08/17 18:00 Pulse Ox 99 11/10/17 16:00 Intake & Output 11/09/17 11/10/17 11/10/17 18:59 06:59 18:59 Intake Total 791 959 847.025 Output Total 4545 3150 2090 Balance -3754 -2191 -1242.975 Weight 159.7 kg 156.7 kg Intake: IV 255 221 226 0.9 100 130 90 cefTAZidime 1 gm In 100 50 100 Sodium Chloride 0.9% 50 ml @ 100 mls/hr IVPB Q12HR [facility] Rx#:[id number] pressure bag 55 41 36 Intake, IV Titration 100 27.025 Amount Propofol 1,000 mg In 100 27.025 Empty Bag 1 bag @ Titrate IV .Q0M [facility] Rx#: [id number] Tube Feeding 346 558 504 Other 90 180 90 Output: Chest Tube Drainage 170 130 Pleural Catheter Right 170 130 Urine 4375 3020 2090 Uretheral (Guo) 600 Other: Voiding Method Indwelling Catheter Indwelling Catheter Indwelling Catheter # Voids 1 1 ABP, PAP, CO, CI - Last Documented Arterial Blood Pressure 178/65 - Exam General: Ill appearing, moderate distress, morbidly obese, appears stated age Derm: warm, dry Head: atraumatic, normocephalic, symmetric Eyes: EOMI, no lid lag, anicteric sclera Mouth: no lip lesion, mucus membranes moist Cardiovascular: S1S2 reg, no murmur, positive posterior tibial pulse bilateral, Lungs: CTA bilateral, no rhonchi, no rales , no accessory muscle use, on vent Abdominal: soft, nontender to palpation, no guarding, no appreciable organomegaly Ext: no gross muscle atrophy, 3+ pitting edema, no contractures Neuro: CN II-XI grossly intact, moving upper hands independently, no movement of feet currently Psych: Lethargic, intermittently following commands, not agitated - Labs CBC & Chem 7: 11/10/17 04:30 11/10/17 11:40 Labs: Abnormal Lab Results - Last 24 Hours (Table) 11/10/17 11/10/17 11/10/17 Range/Units 00:06 04:30 04:30 RBC 3.01 L (3.80-5.40) m/uL Hgb 7.9 L (11.4-16.0) gm/dL Hct 26.0 L (34.0-46.0) % MCHC 30.6 L (31.0-37.0) g/dL RDW 17.5 H (11.5-15.5) % Lymphocytes # 0.5 L (1.0-4.8) k/uL ABG pH (7.35-7.45) ABG HCO3 (21-25) mmol/L ABG Total CO2 (19-24) mmol/L ABG O2 Saturation (94-97) % Potassium 3.4 L (3.5-5.1) mmol/L BUN 50 H (7-17) mg/dL Creatinine 2.10 H (0.52-1.04) mg/dL Glucose 113 H (74-99) mg/dL POC Glucose (mg/dL) 121 H (75-99) mg/dL Phosphorus 5.2 H (2.5-4.5) mg/dL Total Protein 5.5 L (6.3-8.2) g/dL Albumin 2.5 L (3.5-5.0) g/dL 11/10/17 11/10/17 11/10/17 Range/Units 05:14 06:10 11:36 RBC (3.80-5.40) m/uL Hgb (11.4-16.0) gm/dL Hct (34.0-46.0) % MCHC (31.0-37.0) g/dL RDW (11.5-15.5) % Lymphocytes # (1.0-4.8) k/uL ABG pH 7.47 H (7.35-7.45) ABG HCO3 30 H (21-25) mmol/L ABG Total CO2 32 H (19-24) mmol/L ABG O2 Saturation 98.4 H (94-97) % Potassium (3.5-5.1) mmol/L BUN (7-17) mg/dL Creatinine (0.52-1.04) mg/dL Glucose (74-99) mg/dL POC Glucose (mg/dL) 133 H 145 H (75-99) mg/dL Phosphorus (2.5-4.5) mg/dL Total Protein (6.3-8.2) g/dL Albumin (3.5-5.0) g/dL Microbiology - Last 24 Hours (Table) 11/08/17 14:50 Gram Stain - Preliminary Pleural Fluid Body Fluid Culture - Preliminary 11/08/17 14:50 Anaerobic Culture - Preliminary Pleural Fluid 11/08/17 11:50 Urine Culture - Final Urine,Catheterized Kaley albicans Assessment and Plan Plan: Acute on chronic hypoxic respiratory failure, mulitfactorial - CHF, R lung collapase s/p bronch, right-sided pleural effusion -Pulmonary following, vent management -Status post trach and PEG placement on 11/08, status post right pigtail catheter draining right pleural effusion on 11/08 -Due to suspected PE patient was treated with heparin drip initially but that was DC'd on 11/01 secondary to drop in hemoglobin. Patient was unable to tolerate VQ scan or CTA of the chest. Acute exacerbation of diastolic CHF with ejection fraction 50-55% -Third spacing improved so we'll cut down on Lasix to 80 mg IV daily from 3 times a day. - BB - ARB on hold due to JOHN JOHN on CKD stage III, with vancomycin toxicity, was requiring dialysis -Last dialysis was on 11/07 -Currently off hemodialysis, patient tolerating -Renally dose medications -Continue with Lasix as above Left Lower extremity wound growing out Klebsiella and Pseudomonas - ID recs - Off loading - Ceftazadime Anemia of chronic disease on top of iron deficiency anemia - continue aranesp - FE replacement - follow intermittent CBC Thrombocytopenia -Likely multifactorial -Follow CBC Diabetes mellitus type 2 -A1c 5.4 - SSI - Follow BS Hypertension - resume BB, continue to hold ARB, Hydralazine, and Norvasc - follow BP Atherosclerotic coronary artery disease -ASA, lipitor DVT prophylaxis: heparin SC Discussed with: Nursing Anticipated discharge: unknown Anticipated discharge place: Likely will need LTAC A total of 35 minutes was spent on the care of this complex patient more than 50 % of the time was spent in counseling and care coordination.
[2017-11-10 18:05] LABS: Glucose,Whole Blood 188 mg/dL (75-99)
[2017-11-10] MEDS: ATORVASTATIN 10 MG TAB PO SCH (20:04)
[2017-11-11 00:03] LABS: Glucose,Whole Blood 158 mg/dL (75-99)
[2017-11-11] MEDS: HEPARIN SODIUM,PORCINE 5,000 UNIT/ML 1 ML VIAL SQ SCH ×3 (00:06→17:14)
[2017-11-11] MEDS: INSULIN ASPART 100 UNIT/ML 1 ML 10 ML VIAL SQ SCH ×5 (00:06→23:43)
[2017-11-11] MEDS: IPRATROPIUM-ALBUTEROL 3 ML NEB INHALATION SCH ×6 (03:12→23:53)
[2017-11-11 04:55] LABS: ABG Base Excess 9.4 mmol/L; ABG HCO3 33 mmol/L (21-25); ABG Oxygen Saturation 97.9 % (94-97); ABG PCO2 46 mmHg (35-45); ABG PH 7.47 (7.35-7.45); ABG PO2 90 mmHg (83-108); ABG TCO2 35 mmol/L (19-24)
[2017-11-11] MEDS ORDERED: METOPROLOL TARTRATE 50 MG TAB PO STA (05:22)
[2017-11-11 05:39] LABS: Glucose,Whole Blood 160 mg/dL (75-99)
[2017-11-11 05:40] LABS: Anisocytosis Slight; Basophils % (A) 0 %; Eosinophils # (A) 0.3 k/uL (0-0.7); Eosinophils % (A) 4 %; HCT 25.3 % (34.0-46.0); HGB 7.8 gm/dL (11.4-16.0); Hypochromasia Marked; Lymphocytes # (A) 0.5 k/uL (1.0-4.8); Lymphocytes % (A) 6 %; MCH 26.3 pg (25.0-35.0); MCHC 30.7 g/dL (31.0-37.0); MCV 85.6 fL (80.0-100.0); Mean Platelet Volume 7.9; Monocytes # (A) 0.6 k/uL (0-1.0); Monocytes % (A) 8 %; Neutrophils # (A) 6.8 k/uL (1.3-7.7); Neutrophils % (A) 82 %; Platelet Count 175 k/uL (150-450); RBC 2.96 m/uL (3.80-5.40); RDW 17.6 % (11.5-15.5); WBC 8.4 k/uL (3.8-10.6)
[2017-11-11 05:53] LABS: Albumin 2.5 g/dL (3.5-5.0); Calcium 8.8 mg/dL (8.4-10.2); Magnesium 2.2 mg/dL (1.6-2.3); Phosphorus 4.3 mg/dL (2.5-4.5); Potassium 3.6 mmol/L (3.5-5.1); Total Bilirubin 0.3 mg/dL (0.2-1.3); Total Protein 5.4 g/dL (6.3-8.2)
[2017-11-11] MEDS ORDERED: POTASSIUM BICARBONATE/CIT AC 20 MEQ TABLET.EFF NG-TUBE SCH (06:00)
--- NOTE | 2017-11-11 08:08 | XR ---
EXAMINATION TYPE: XR chest 1V portable DATE OF EXAM: 11/11/2017 Comparison: 11/10/2017 Clinical History: 66-year-old female ET tube placement Findings: Tracheostomy cannula is in place. Continued asymmetric elevation of right hemidiaphragm with patchy r ight mid and lower lung opacity. Patchy retrocardiac and left basilar opacity also remains. A pigtail pleural catheter is present on the right. No appreciable pneumothorax. Right PICC tip appears to be in the right atrium. Right IJ CVC tip at the lower SVC. Increased right suprahilar opacity suspected to be due to external artifacts. Impression: 1. Increased right suprahilar density suspected to be secondary to external artifact rather than unde rlying infiltrate. Reassess at follow-up. 2. Similar residual volume loss and atelectasis/infiltrate at the right base and also in the retrocar diac region. 3. Right-sided pleural catheter without appreciable pneumothorax.
[2017-11-11] MEDS: PANTOPRAZOLE 40 MG/10 ML VIAL IVP SCH (08:22)
[2017-11-11] MEDS: hydrALAZINE HCL 50 MG TAB PO SCH ×3 (08:23→21:20)
[2017-11-11] MEDS: FUROSEMIDE 10 MG/ML 10 ML VIAL IV SCH (08:23)
[2017-11-11] MEDS: amLODIPine 10 MG TAB PO SCH (08:23)
[2017-11-11] MEDS: FLUCONAZOLE ORAL SUSP 1,400 MG/35 ML BOTTLE PO SCH (08:24)
[2017-11-11] MEDS: NYSTATIN 100,000 UNIT/GM POWD 15 GM TOPICAL SCH ×2 (08:24→21:20)
[2017-11-11] MEDS: CHLORHEXIDINE GLUCONATE 15 ML CUP MUCOUS MEM SCH ×2 (08:24→21:20)
--- NOTE | 2017-11-11 08:56 | P.PN ---
Subjective Progress Note Date: 11/11/17 Principal diagnosis: Acute respiratory failure, pleural effusion Patient was tachycardic last night, flipped into A. fib, was given a dose of Lopressor and then flipped back to normal sinus. She is currently not making much progress in terms of her mental status. She occasionally attends to the interviewer with her eyes but she is still not answering questions or following commands. Objective - Vital Signs Vital signs: Vital Signs Temp 98.9 F 11/11/17 04:00 Pulse 94 11/11/17 07:25 Resp 24 11/11/17 07:25 BP 133/65 11/11/17 06:00 Pulse Ox 100 11/11/17 07:00 Intake & Output 11/10/17 11/11/17 11/11/17 18:59 06:59 18:59 Intake Total 617.999 6852 69 Output Total 2290 915 40 Balance -1304.975 111 29 Weight 156.7 kg Intake: IV 252 206 13 0.9 110 120 10 cefTAZidime 1 gm In 100 50 Sodium Chloride 0.9% 50 ml @ 100 mls/hr IVPB Q12HR [facility] Rx#:[id number] pressure bag 42 36 3 Intake, IV Titration 27.025 Amount Propofol 1,000 mg In 27.025 Empty Bag 1 bag @ Titrate IV .Q0M [facility] Rx#: [id number] Tube Feeding 616 560 56 Other 90 260 Output: Urine 2290 915 40 Other: Voiding Method Indwelling Catheter Indwelling Catheter # Voids 1 ABP, PAP, CO, CI - Last Documented Arterial Blood Pressure 148/66 - Exam General: Ill appearing, no acute distress, morbidly obese, appears stated age Derm: warm, dry Head: atraumatic, normocephalic, symmetric Eyes: EOMI, no lid lag, anicteric sclera Mouth: no lip lesion, mucus membranes moist Cardiovascular: S1S2 reg, no murmur, positive posterior tibial pulse bilateral, Lungs: Mechanical breath sounds bilaterally, diffuse rhonchi, no rales , no accessory muscle use, on vent Abdominal: soft, nontender to palpation, no guarding, no appreciable organomegaly Skin: Multiple ankle wounds, wrapped up with gauze Ext: no gross muscle atrophy, 1+ pitting edema, no contractures Neuro: Gen. weakness, even cough reflex is weak. Doesn't move any extremity, does not track with her eyes. - Labs CBC & Chem 7: 11/11/17 05:00 11/11/17 05:00 Labs: Abnormal Lab Results - Last 24 Hours (Table) 11/10/17 11/10/17 11/11/17 Range/Units 11:36 18:03 00:00 RBC (3.80-5.40) m/uL Hgb (11.4-16.0) gm/dL Hct (34.0-46.0) % MCHC (31.0-37.0) g/dL RDW (11.5-15.5) % Lymphocytes # (1.0-4.8) k/uL ABG pH (7.35-7.45) ABG pCO2 (35-45) mmHg ABG HCO3 (21-25) mmol/L ABG Total CO2 (19-24) mmol/L ABG O2 Saturation (94-97) % BUN (7-17) mg/dL Creatinine (0.52-1.04) mg/dL Glucose (74-99) mg/dL POC Glucose (mg/dL) 145 H 188 H 158 H (75-99) mg/dL Total Protein (6.3-8.2) g/dL Albumin (3.5-5.0) g/dL 11/11/17 11/11/17 11/11/17 Range/Units 04:55 05:00 05:00 RBC 2.96 L (3.80-5.40) m/uL Hgb 7.8 L (11.4-16.0) gm/dL Hct 25.3 L (34.0-46.0) % MCHC 30.7 L (31.0-37.0) g/dL RDW 17.6 H (11.5-15.5) % Lymphocytes # 0.5 L (1.0-4.8) k/uL ABG pH 7.47 H (7.35-7.45) ABG pCO2 46 H (35-45) mmHg ABG HCO3 33 H (21-25) mmol/L ABG Total CO2 35 H (19-24) mmol/L ABG O2 Saturation 97.9 H (94-97) % BUN 53 H (7-17) mg/dL Creatinine 2.10 H (0.52-1.04) mg/dL Glucose 150 H (74-99) mg/dL POC Glucose (mg/dL) (75-99) mg/dL Total Protein 5.4 L (6.3-8.2) g/dL Albumin 2.5 L (3.5-5.0) g/dL 11/11/17 Range/Units 05:37 RBC (3.80-5.40) m/uL Hgb (11.4-16.0) gm/dL Hct (34.0-46.0) % MCHC (31.0-37.0) g/dL RDW (11.5-15.5) % Lymphocytes # (1.0-4.8) k/uL ABG pH (7.35-7.45) ABG pCO2 (35-45) mmHg ABG HCO3 (21-25) mmol/L ABG Total CO2 (19-24) mmol/L ABG O2 Saturation (94-97) % BUN (7-17) mg/dL Creatinine (0.52-1.04) mg/dL Glucose (74-99) mg/dL POC Glucose (mg/dL) 160 H (75-99) mg/dL Total Protein (6.3-8.2) g/dL Albumin (3.5-5.0) g/dL Microbiology - Last 24 Hours (Table) 11/08/17 14:50 Gram Stain - Preliminary Pleural Fluid Body Fluid Culture - Preliminary 11/08/17 14:50 Anaerobic Culture - Preliminary Pleural Fluid 11/08/17 11:50 Urine Culture - Final Urine,Catheterized Kaley albicans Assessment and Plan Plan: Acute on chronic hypoxic respiratory failure, mulitfactorial - CHF, R lung collapase s/p bronch, right-sided pleural effusion -Pulmonary following, vent management -Status post trach and PEG placement on 11/08, status post right pigtail catheter draining right pleural effusion on 11/08 -Due to suspected PE patient was treated with heparin drip initially but that was DC'd on 11/01 secondary to drop in hemoglobin. Patient was unable to tolerate VQ scan or CTA of the chest. Critical care encephalopathy -Not much progress made in that regard -Recommend speaking to [facility] again regarding making patient comfort care Acute exacerbation of diastolic CHF with ejection fraction 50-55% -Continue Lasix to 80 mg IV daily - BB - ARB on hold due to JOHN JOHN on CKD stage III, with vancomycin toxicity, was requiring dialysis -Last dialysis was on 11/07 -Currently off hemodialysis, patient tolerating -Renally dose medications -Continue with Lasix as above Left Lower extremity wound growing out Klebsiella and Pseudomonas - ID recs - Off loading - Ceftazadime Anemia of chronic disease on top of iron deficiency anemia - continue aranesp - FE replacement - follow intermittent CBC Thrombocytopenia -Likely multifactorial -Follow CBC Diabetes mellitus type 2 -A1c 5.4 - SSI - Follow BS Hypertension - resume BB, continue to hold ARB, Hydralazine, and Norvasc - follow BP Atherosclerotic coronary artery disease -ASA, lipitor DVT prophylaxis: heparin SC Discussed with: Nursing, care management Anticipated discharge: unknown Anticipated discharge place: Likely will need LTAC if she wasn't switched to comfort care A total of 35 minutes was spent on the care of this complex patient more than 50 % of the time was spent in counseling and care coordination.
[2017-11-11] MEDS ORDERED: ONDANSETRON 4 MG/2 ML VIAL IVP PRN (11:56)
[2017-11-11 12:08] LABS: Glucose,Whole Blood 180 mg/dL (75-99)
--- NOTE | 2017-11-11 12:10 | P.PN ---
Subjective Progress Note Date: 11/11/17 Principal diagnosis: Acute on chronic hypoxic respiratory failure secondary to diastolic congestive heart failure, large right-sided pleural effusion, right lung collapse, and possible sepsis. 65-year-old female patient is being seen in follow-up on 11/04/2017. This patient is morbidly obese with a BMI 33.9. She is in the intensive care is with acute on top of chronic history failure most likely on the basis of massive fluid overload. This morning, she is assist-control mode of ventilation at the rate of 20 with tidal volume of 400 and FiO2 of 50% with a PEEP of 10. Chest x-ray shows a right-sided pleural effusion. ET tube is in a good location. The blood gas showed a pH of 7.39 with a pCO2 of 46 and pO2 of 70 and this was on FiO2 of 50%. The patient is sedated with propofol at a dose of 50 g per KG per minute. She can arouse upon given a sedation holiday. In terms of her fluid overload, the patient has already received 2 sessions of hemodialysis 3 temporary dialysis catheter inserted in the right IJ. I discussed the case with nephrology today. We decided to hold off on dialysis as the patient is producing adequate amount of urine output while being on Lasix 83 g IV push every 12 hours. The patient is improving in terms of urine output and she is ready produced 1.9 L of urine output since morning. The creatinine from today's at 1.9 and the rest of the electrodes are all within normal limits. No significant acidosis. Bronchoscopy was done earlier and the patient did not reveal any significant microbial growth and the bronchioloalveolar lavage was also negative. Patient is on IV Fortaz and infectious disease on the case regarding the lower extremity wounds. On 11/05/2017 I'm seeing this patient for a follow-up. The patient is sedated and intubated on a mechanical ventilator. She is an assist-control mode of ventilation at the rate of 12 and FiO2 of 50% and a PEEP of 8 with a tidal volume of 400. She is was sedated with Diprivan and she is calm and comfortable. No significant orotracheal secretion. Chest x-ray showing a large right-sided pleural effusion and his tube is in a good location. The blood gas showed a pH of 7.4 with a pCO2 of 44 and pO2 of 63. We held off on dialysis yesterday as the patient is improving in terms of urine output. She is producing almost 50 mL an hour and she is on Lasix 80 mg IV push every 8 hours. The net fluid balance is -697 mL over the past 24 hours. We have contemplated PEG and trach. We will also contemplated chest tube insertion however we were not successful and obtaining consent. We're the process of getting a legal guardian at this point to undergo this procedures. Unfortunately nothing much can be done without any consent knowing that all of these procedures are not life saving or do not being done for immediate life- threatening conditions. The patient is not having any fever. No leukocytosis. Hemoglobin is at 7. Creatinine is down to 2. No pressors for now. Tolerating the tube feeds. Antibiotic coverage includes IV Fortaz and clindamycin. No other significant events over the past 24 hours for now. On 11/06/2017 I'm seeing this patient in the intensive care unit in a follow- up. We were able to finally get a public guardian for this patient. As mentioned she want to be a full code and based on that the public guardian is agreeable to any further intervention including a PEG and a trach. My intention is to give the patient is sedation holiday for a longest period of time and assess the patient's underlying mental status. I would like to see some response and alertness from this patient off sedation. At the same time would like to get this patient another session of ultrafiltration together as dry as possible in consideration for possible weaning/extubation. If this fails , the alternative will be long-term PEG and trach. On today's chest x-ray, the patient is small lung volumes and the patient continues to have a right-sided pleural effusion. She remains on assist control mode mode of ventilation. She is on a volume cycle with a tidal volume of 400 and FiO2 of 50% and a PEEP of 5. The blood gases from this morning showed a pH of 7.4 with a pCO2 of 44 and pO2 of 60 and this was on the 50% FiO2. The patient is on no pressors. The patient is afebrile. The patient is covered with broad-spectrum antibiotics. ID is on the case. Renal function continues to be impaired with a creatinine of 2.0. The patient underwent ultrafiltration yesterday with removal of 3 L and another session of ultrafiltration will be done today and this was coordinated with nephrology. She is afebrile. She is tolerating her tube feeds. She is producing good urine output while on IV Lasix. Otherwise no other significant events over the past 24 hours. On 11/07/2017, the patient remains in intensive care unit intubated on a mechanical ventilator. I was very close to consider extubating this patient however is unaffected that she was started on an FiO2 of 60% and based on her weakness and poor ability to clear the rest or secretions, decided not to. I decided to give this patient another day on a mechanical ventilator during which I'm going to give her another session of ultrafiltration diuresis with IV Lasix and optimize further volume status and consider possibility of extubation today. This will be a very difficult extubation. The patient may very well failed extubation. Alternative would be long-term mechanical ventilation through a tracheostomy tube which I have ordered the agreed upon with her legal guardian. I would like however to try at least an extubation on this patient once she is fully dialyzed and diuresis. Based on this, it kept on the sedation this morning. She was able to arouse from her sedation to the point where she was following simple commands. She remains extremely weak and upper and lower extremities. Ultrafiltration will be done today and the goal be removal of 3 L of IV fluids. She is producing adequate amount of urine output and she is still on IV Lasix. Renal function from today shows a creatinine of 2.1. As far as vent support, the patient is still on the same vent setting within assist-control of 20, tidal volume of 400 with an FiO2 of 60% and a PEEP of 5. Her morning blood gases showed a pH of 7.38 with a pCO2 of 46 and pO2 of 85. I was able to cut down the FiO2 down to 50% and she maintain a saturation above 90%. Chest x-ray findings are still the same and the patient has a right- sided pleural effusion. Lung volumes are essentially small at this point in time. She is tolerating her tube feeds. We will make it final decision on extubation versus long-term PEG and trach and long-term mechanical ventilation with the next 24 hours. I am inclined to at least give her a trial of extubation prior to going to a long-term vent management system especially with her poor baseline performance and functional status and poor long-term prognosis. She is afebrile. No other significant events occurred over the past 24 hours. On 11/08/2017, I'm seeing this patient for a follow-up. I decided not to extubate the patient. The patient did not wake up appropriately and I do not think she had the strength on the motor function or diabetic to clear rest or secretions if extubation was performed. Based on that the patient was kept on a mechanical ventilator throughout the night and earlier this morning the patient was taken to the operating room and she underwent a PEG and tracheostomy tube insertion. This was done by Dr. Mccarty. The patient is back to the intensive care unit and the patient is currently being weaned off the sedation for now. She is hemodynamically stable. Chest x-ray shows significant opacification of the right lung and this was noted as the patient is having on and off right-sided pleural effusion in addition to some underlying atelectasis at the chest x-ray shows volume loss in addition to pleural effusion. Based on this, I discussed the case with interventional radiology and we decided to receiving the pigtail catheter insertion at the bedside under ultrasound guidance. This will be likely done today. Meanwhile, the patient is hemodynamically stable. Her last dialysis and ultrafiltration was done yesterday. The patient is in a negative fluid balance. The patient is producing adequate amount of urine output. The patient is an assist-control mode at the rate of 20 with tidal volume of 400 and FiO2 of 50% and a PEEP of 5 and a morning blood gases showed a pH of 7.42 with a pCO2 of 46 and pO2 of 72. The creatinine is at 1.8. Rest of the electrodes are within normal limits and a potassium level needs to be replaced. She remains on IV Lasix and she is producing adequate urine output. On 11/09/2017, the patient is post PEG and trach. The patient is taken off sedation and we are in the process of evaluating her mental status. I'm concerned that the patient has significant degree of metabolic encephalopathy in addition to drug effect affecting her mentation. The patient meanwhile remains on a mechanical ventilator. She has a Shiley extra long tracheostomy tube. No leaks around the tube. She is an assist-control mode of ventilation. Vent settings remain the same as yesterday and FiO2 was up down to 40% and the patient is on a tidal volume of 400. She is also on a PEEP of 5 at the rate of 20. As mentioned, the patient had significant opacification of the right lung yesterday and I was able to work with interventional radiology and insert a pigtail catheter in the right lung and she has drained approximately 1.5 L of pleural fluid thus far. On today's chest x-ray, there is significant improvement in the aeration of the right lower lobe although the patient had some right upper lobe atelectasis with volume loss and that is the cutoff sign indicating an underlying mucous plug. Note that she was bronchoscoped earlier during this hospitalization and therapeutic it was suctioning was done and she did not have any microbial growth. She is on IV cefepime. She'll feeds will be restarted. PEG tube site is clean. No fever. No chills. No hypotension. No other issues otherwise for now. On 11/10/2017, the patient is post PEG and trach. She remains on a mechanical ventilator. I am quite impressed by today's chest x-ray. There is really expansion of the right upper lobe as likely the tidal volume up to 500. The pleural effusion on the right side has completely resolved and the patient has a pigtail catheter in the right lung which will be kept in for another 24 hours. The patient is very comfortable while being assist-control mode at the rate of 20 with a tidal volume of 500 with a PEEP of 5 and an FiO2 of 40%. The blood gases showed a pH of 7.47 with a pCO2 of 42 and pO2 of 95 on 40% FiO2. No rest or secretions. The active issue for now intensive neurologic impairment. While being off sedation for 24 hours the patient would open up her eyes 2 and occasionally follows some simple commands and she is not tracking and she is not consistent in her ability to communicate or interact with the nurses. She is extremely weak to the point where she cannot raise her arms and her legs against gravity. Cough is weak. She is tolerating her tube feeds. She is afebrile. Hemoglobin is at 7.8 and the patient is diuresing well and she has been negative fluid balance and she had marked improvement in the third spacing and excessive edema and for that reason I cut down the IV Lasix. Renal function is stable with a creatinine of 2.1. Patient was reevaluated today on 11/11/2017, remains on mechanical ventilation, and I plan to give her a trial of pressure support and CPAP today. Apparently she tolerated CPAP yesterday, but considering the overall picture, the patient is not ready for extubation and placement on a trach collar. Patient is having intermittent episodes of nausea and vomiting today, hence she will be given Zofran, and the PEG tube will be placed on suction. Her CBC showed WBC count of 8.4 hemoglobin of 7.8 her ABG showed a pO2 of 90 0 pCO2 of 46 pH of 7.47. Electrolytes are normal BUN is 53 creatinine is 2.10 which is basically the same over the last few days. Chest x-ray is basically about the same, continues to show some residual volume loss and atelectasis in the right base, also in the retrocardiac region, there is also a right-sided pleural catheter without any pneumothorax. Patient does not seem to follow any instructions, she seems to be generally weak. Remains on antibiotics for cellulitis of lower extremities. Being followed by infectious disease on consultation. Had episodes of atrial fibrillation last night, and now she is back in sinus rhythm. Today after discussing with the nurses I felt we could continue intermittently placing the patient on CPAP, but at the same time we should consult select care specialty for possibly transferring the patient to the facility. The pleural catheters continues to drain significant amount of fluid , but I plan to discontinue the pleural catheter once the fluid amount is less and less. Objective - Vital Signs Vital signs: Vital Signs Temp 98.9 F 11/11/17 04:00 Pulse 90 11/11/17 11:50 Resp 20 11/11/17 11:35 BP 133/65 11/11/17 06:00 Pulse Ox 100 11/11/17 07:00 Intake & Output 11/10/17 11/11/17 11/11/17 18:59 06:59 18:59 Intake Total 603.941 8856 69 Output Total 2290 915 40 Balance -1304.975 111 29 Weight 156.7 kg Intake: IV 252 206 13 0.9 110 120 10 cefTAZidime 1 gm In 100 50 Sodium Chloride 0.9% 50 ml @ 100 mls/hr IVPB Q12HR [facility] Rx#:[id number] pressure bag 42 36 3 Intake, IV Titration 27.025 Amount Propofol 1,000 mg In 27.025 Empty Bag 1 bag @ Titrate IV .Q0M [facility] Rx#: [id number] Tube Feeding 616 560 56 Other 90 260 Output: Urine 2290 915 40 Other: Voiding Method Indwelling Catheter Indwelling Catheter # Voids 1 ABP, PAP, CO, CI - Last Documented Arterial Blood Pressure 148/66 - Exam Physical exam revealed a 66-year-old female, morbidly obese, on mechanical ventilation via tracheostomy, in no distress. HEENT examination is grossly unremarkable. Mucous membranes are moist. Tracheostomy tube is intact. Neck supple. Full range of motion. No adenopathy thyromegaly or neck vein distention. Cardiovascular examination reveals regular rate and rhythm, normal S1 and S2, no S3 gallop, no murmur. Lungs reveal severely diminished breath sounds bilaterally, right greater than left. There are bilateral coarse rhonchi. Crackles are noted at both bases. No wheezes are appreciated. Very little air entry on the right side noted. Breath sounds are about what they were the day before. There is not been much change. Abdominal exam revealed morbidly obese abdomen, soft, nontender, no megaly, no rebound, PEG tube is intact. Extremities are intact. Chronic lower extremity edema is noted. She also is chronic venous stasis changes with hyperpigmentation. Heels are bandaged. Slightly improved edema of the lower extremities is noted. 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 Left heel measures at 2.4 x 3.5 x 0.2 cm right heel ulceration measuring at 2 x 2 x 0.2 total contact cast was removed Skin: As noted above on the examination of the lower extremities. Neurologic examination reveals that the patient is arousable off the sedation. opens eyes, but does not does not follow any instructions - Labs CBC & Chem 7: 11/11/17 05:00 11/11/17 05:00 Labs: Abnormal Lab Results - Last 24 Hours (Table) 11/10/17 11/11/17 11/11/17 Range/Units 18:03 00:00 04:55 RBC (3.80-5.40) m/uL Hgb (11.4-16.0) gm/dL Hct (34.0-46.0) % MCHC (31.0-37.0) g/dL RDW (11.5-15.5) % Lymphocytes # (1.0-4.8) k/uL ABG pH 7.47 H (7.35-7.45) ABG pCO2 46 H (35-45) mmHg ABG HCO3 33 H (21-25) mmol/L ABG Total CO2 35 H (19-24) mmol/L ABG O2 Saturation 97.9 H (94-97) % BUN (7-17) mg/dL Creatinine (0.52-1.04) mg/dL Glucose (74-99) mg/dL POC Glucose (mg/dL) 188 H 158 H (75-99) mg/dL Total Protein (6.3-8.2) g/dL Albumin (3.5-5.0) g/dL 11/11/17 11/11/17 11/11/17 Range/Units 05:00 05:00 05:37 RBC 2.96 L (3.80-5.40) m/uL Hgb 7.8 L (11.4-16.0) gm/dL Hct 25.3 L (34.0-46.0) % MCHC 30.7 L (31.0-37.0) g/dL RDW 17.6 H (11.5-15.5) % Lymphocytes # 0.5 L (1.0-4.8) k/uL ABG pH (7.35-7.45) ABG pCO2 (35-45) mmHg ABG HCO3 (21-25) mmol/L ABG Total CO2 (19-24) mmol/L ABG O2 Saturation (94-97) % BUN 53 H (7-17) mg/dL Creatinine 2.10 H (0.52-1.04) mg/dL Glucose 150 H (74-99) mg/dL POC Glucose (mg/dL) 160 H (75-99) mg/dL Total Protein 5.4 L (6.3-8.2) g/dL Albumin 2.5 L (3.5-5.0) g/dL Microbiology - Last 24 Hours (Table) 11/08/17 14:50 Gram Stain - Preliminary Pleural Fluid Body Fluid Culture - Preliminary 11/08/17 14:50 Anaerobic Culture - Preliminary Pleural Fluid 11/08/17 11:50 Urine Culture - Final Urine,Catheterized Kaley albicans Assessment and Plan Assessment: 1 acute on top of chronic hypoxic history failure likely on the basis of diastolic CHF/fluid overload and development of a large right-sided pleural effusion. The patient is currently still mechanically ventilated for a tracheostomy tube. The right-sided pleural effusion was evacuated by a pigtail catheter. Continues to drain about 150-200 mL per 24 hours The right upper lobe atelectasis is also recovered as the patient is being mechanically ventilated with a volume cycled the tidal volume of 500 and a PEEP of 5. Blood gases were noted, 2 right lung collapse, post bronchoscopy on 11/01/2017 with a bronchioloalveolar lavage that showed no microbial growth and the patient on empiric antibiotic coverage with IV cefepime. Chest x-ray from today shows complete expansion of the right upper lobe. 3 morbid obesity with a BMI 53.9 4 acute on top of a chronic stage III kidney failure, the patient is currently producing adequate amount of urine output. No dialysis for the past 3 days and the patient is producing adequate amount of urine output and along with ultrafiltration the volume status is improved significantly. 5 anemia of chronic disease secondary to chronic renal failure, hemoglobin is stable at 7.8 6 diabetes mellitus 7 nonhealing ulcers in the lower extremities bilaterally 8 hypertension 9 previous history of cellulitis of the lower eczematous secondary to pseudomonas and klebsiella Recommendation: Continue mechanical ventilation, ventilatory support, GI and DVT prophylaxis, enteral feeding when her GI symptoms improved, will consult selective specialty to possibly transfer to their facility. Critical care time is 40 minutes. Time with Patient: Greater than 30
[2017-11-11] MEDS: ASPIRIN 81 MG PO SCH (17:14)
[2017-11-11 17:43] LABS: Glucose,Whole Blood 155 mg/dL (75-99)
--- NOTE | 2017-11-11 18:47 | P.PN ---
Subjective Progress Note Date: 11/11/17 Principal diagnosis: This is a 66-year-old female seen in consultation because of acute kidney injury from cardiorenal syndrome and vancomycin. She was started on dialysis and has had multiple dialysis now for the last week.Last dialysis was 2017, had pure ultrafiltration for 3 L and tolerated well. On 11/09/2017 she had a pigtail catheter placed in the right chest because of collapse of the lung and pleural effusion. Her chest tube drainage is / mL but her urine output is 3205 mL. She is on Lasix 80 mg daily starting today, She remains on the vent on 50% FiO2 unable to be weaned off as supposedly there was some deterioration in her mental status. She has tracheostomy and PEG tube. Vital signs are stable. She is in normal sinus rhythm She is known with chronic kidney disease stage III likely from diabetic nephropathy, diabetes, obesity, staph epidermidis bacteremia possible contaminant, Patient presented with chest pressure and is being followed by cardiology. Currently she admits to shortness of breath. Her chest x-ray on admission revealed pulmonary edema and a chest ultrasound revealed bilateral pleural effusions. Objective - Vital Signs Vital signs: Vital Signs Temp 98.3 F 11/11/17 16:00 Pulse 93 11/11/17 18:00 Resp 21 11/11/17 18:00 BP 147/62 11/11/17 18:00 Pulse Ox 100 11/11/17 18:00 Intake & Output 11/10/17 11/11/17 11/11/17 18:59 06:59 18:59 Intake Total 752.364 6896 69 Output Total 2290 915 820 Balance -1304.975 111 -751 Weight 156.7 kg Intake: IV 252 206 13 0.9 110 120 10 cefTAZidime 1 gm In 100 50 Sodium Chloride 0.9% 50 ml @ 100 mls/hr IVPB Q12HR [facility] Rx#:[id number] pressure bag 42 36 3 Intake, IV Titration 27.025 Amount Propofol 1,000 mg In 27.025 Empty Bag 1 bag @ Titrate IV .Q0M [facility] Rx#: [id number] Tube Feeding 616 560 56 Other 90 260 Output: Urine 2290 915 820 Other: Voiding Method Indwelling Catheter Indwelling Catheter Indwelling Catheter # Voids 1 ABP, PAP, CO, CI - Last Documented Arterial Blood Pressure 129/57 - Labs CBC & Chem 7: 11/11/17 05:00 11/11/17 05:00 Labs: Abnormal Lab Results - Last 24 Hours (Table) 11/11/17 11/11/17 11/11/17 Range/Units 00:00 04:55 05:00 RBC 2.96 L (3.80-5.40) m/uL Hgb 7.8 L (11.4-16.0) gm/dL Hct 25.3 L (34.0-46.0) % MCHC 30.7 L (31.0-37.0) g/dL RDW 17.6 H (11.5-15.5) % Lymphocytes # 0.5 L (1.0-4.8) k/uL ABG pH 7.47 H (7.35-7.45) ABG pCO2 46 H (35-45) mmHg ABG HCO3 33 H (21-25) mmol/L ABG Total CO2 35 H (19-24) mmol/L ABG O2 Saturation 97.9 H (94-97) % BUN (7-17) mg/dL Creatinine (0.52-1.04) mg/dL Glucose (74-99) mg/dL POC Glucose (mg/dL) 158 H (75-99) mg/dL Total Protein (6.3-8.2) g/dL Albumin (3.5-5.0) g/dL 11/11/17 11/11/17 11/11/17 Range/Units 05:00 05:37 11:46 RBC (3.80-5.40) m/uL Hgb (11.4-16.0) gm/dL Hct (34.0-46.0) % MCHC (31.0-37.0) g/dL RDW (11.5-15.5) % Lymphocytes # (1.0-4.8) k/uL ABG pH (7.35-7.45) ABG pCO2 (35-45) mmHg ABG HCO3 (21-25) mmol/L ABG Total CO2 (19-24) mmol/L ABG O2 Saturation (94-97) % BUN 53 H (7-17) mg/dL Creatinine 2.10 H (0.52-1.04) mg/dL Glucose 150 H (74-99) mg/dL POC Glucose (mg/dL) 160 H 180 H (75-99) mg/dL Total Protein 5.4 L (6.3-8.2) g/dL Albumin 2.5 L (3.5-5.0) g/dL 11/11/17 Range/Units 17:40 RBC (3.80-5.40) m/uL Hgb (11.4-16.0) gm/dL Hct (34.0-46.0) % MCHC (31.0-37.0) g/dL RDW (11.5-15.5) % Lymphocytes # (1.0-4.8) k/uL ABG pH (7.35-7.45) ABG pCO2 (35-45) mmHg ABG HCO3 (21-25) mmol/L ABG Total CO2 (19-24) mmol/L ABG O2 Saturation (94-97) % BUN (7-17) mg/dL Creatinine (0.52-1.04) mg/dL Glucose (74-99) mg/dL POC Glucose (mg/dL) 155 H (75-99) mg/dL Total Protein (6.3-8.2) g/dL Albumin (3.5-5.0) g/dL Microbiology - Last 24 Hours (Table) 11/08/17 14:50 Gram Stain - Preliminary Pleural Fluid Body Fluid Culture - Preliminary Assessment and Plan Assessment: Impression 1. ATN secondary to cardiorenal syndrome and vancomycin with dialysis dependency last dialysis day before yesterday 11/07/2017 which was pure Ultrafiltration for 3 L. Her urine output is 3205 and chest tube output was 0 mL's. Her creatinine went down to 2.1 which is new not far off from her baseline which can very from 1.5-2 remains somewhat fluid overloaded with edema, on the vent on 40% % FiO2. 2. Fluid overloaded with edema,on Lasix 80 milligrams daily 3 . Chronic kidney disease stage III, etiology is diabetic nephropathy and nephrosclerosis. Baseline creatinine is 1.5-2 4. Ventilator pendent respiratory failure, improved from 50% to 40% FiO2, with improvement in her right chest expansion of the chest x-ray 5. Diabetes and diabetic nephropathy 6. Collapsed right lung, status post bronchoscopy 11/01/2017, chest shows improvement, further deterioration on 11/08/2017 requiring pigtail catheter insertion for pleural effusion. 7. Anemia hemoglobin 7.2 > 7.7> 7.9 > 7.8 8. Hypokalemia secondary to diuresis and dialysis, on replacement potassium at 3.4 Recommendation. 1. Continue to diuresis. Lasix 80 daily 2. Will hold off further dialysis Her labs do not support any further dialysis. 3. Her Daniel catheter needs to come out
--- NOTE | 2017-11-11 20:28 | P.PN ---
Subjective Progress Note Date: 11/11/17 66 year old woman with superobesity presents to the ER with marked increase of shortness of breath, with some chest pain also occurring. At admission there was evidence of worsening of her chronic renal failure and significant volume overload, with some diuresis she is already receiving relief from her extensive shortness of breath. At this time she is not complaining of any chest pain. She was found and she has been seen by pulmonary critical care, and there is a possibility of a thoracentesis future. At this time she denies other acute new complaints. A total contact cast is in place on the left leg for the pressure ulcer to the left heel is negative for any difficulties at all. The chronic ulcerations of the right heel is also without pain. She is aware of improved urinary output since being on the higher doses of Lasix. As noted she has a history of significant underlying coronary artery disease with a history of congestive heart failure with known diastolic dysfunction. She is feeling slightly better at this time but certainly not nearly her baseline. She does have significant debility. 10/28/2017 the patient has declined further today. She is requiring BiPAP for oxygen saturation, she is somewhat confused but does seem to be comfortable. She is unable to complain of any new symptoms 10/29/2017 the patient is much more awake and alert today. Her BiPAP is in place and she is no longer confused. She recognized me by name and knows that she is at the hospital. She is denying significant discomfort in her shortness of breath is improved. October 31, 2017 patient patient is worsen she is now developed respiratory failure and required intubation with mechanical ventilation and is sedated. She' s been seen by nephrology and with volume overload is receiving hemodialysis. The hope is that with dialysis she'll improve her pulmonary status from improved volume status. No fevers are noted. No new positive cultures. 11/01/2017 patient remained intubated sedated and mechanically ventilated with respiratory failure. She is receiving another course of hemodialysis which will hopefully remove a total of 6 L of fluid over this 3 day time frame. She still remains grossly volume overloaded. She fortunately does have some urinary output despite her renal failure that appears to multifactorial including vancomycin therapy. Psychosocial has had great difficulties, it appears that the social workers will ask for guardianship from the courts coming Saturday to make further plans. 11/04/2017 patient remains in intensive care unit intubated sedated and mechanically ventilated. Dialysis has helped remove some of her extensive edema and will have further dialysis tomorrow.her acidosis is improved, leukocytosis improved still has significant anemia. No new positive cultures. 11/07/2017 patient remains in intensive care unit intubated sedated and mechanically ventilated. She remains on dialysis to improve her gross volume overload. There was attempts today to hold sedation and potentially extubate and monitor status. However off sedation she is not following commands and has not had any improvement of her mental status. Appears to be plans for tracheostomy and PEG tube placement tomorrow.will likely then need LTAC placement. 11/08/2017 patient is now status post tracheostomy and PEG tube placement. She also had extensive right pleural effusion and a pigtail catheters been placed in large volumes of pleural fluid have been drained. Patient continues with hemodialysis. No new acute changes are noted, no vasopressor therapy today. 11/10/2017 patient remains in the intensive care unit mechanically ventilated via tracheostomy, PEG tube in place. Receiving hemodialysis for her extensive volume overload. Is doing somewhat better today and that she is more awake, her eyes are open, she looks to the observer and smiles. However no further interaction seems to occur. She does not track well when she is undergoing face -to-face interaction. November 11 2017 patient remains in intensive care unit mechanically ventilated via tracheostomy, PEG tube for nutrition. Nursing staff relates that there was an episode of emesis of her tube feeds today with concerns to aspiration. Despite this she remains on CPAP with a pressure support of 10 cm be tolerating it well. The neurological status remains poor. She opens eyes to her name but does not look to the observer. Unlike yesterday there was no response which is a smile when she was approached and communicated to . Objective - Vital Signs Vital signs: Vital Signs Temp 98.3 F 11/11/17 16:00 Pulse 90 11/11/17 19:36 Resp 21 11/11/17 18:00 BP 147/62 11/11/17 18:00 Pulse Ox 100 11/11/17 18:00 Intake & Output 11/11/17 11/11/17 11/12/17 06:59 18:59 06:59 Intake Total 1026 79 Output Total 915 880 Balance 111 -801 Weight 156.7 kg Intake: IV 206 23 0.9 120 10 cefTAZidime 1 gm In 50 Sodium Chloride 0.9% 50 ml @ 100 mls/hr IVPB Q12HR [facility] Rx#:[id number] pressure bag 36 13 Tube Feeding 560 56 Other 260 Output: Urine 915 880 Other: Voiding Method Indwelling Catheter Indwelling Catheter ABP, PAP, CO, CI - Last Documented Arterial Blood Pressure 129/57 - Exam 66-year-old woman with superobesity is now ventilated via tracheostomy sedated and mechanically ventilated Head exam was generally normal. There was no scleral icterus or corneal arcus. Mucous membranes were moist. Neck was supple and without jugular venous distension, thyromegaly, or carotid bruits. Carotids were easily palpable bilaterally. There was no adenopathy. Lungs sounds are diminished bilaterally especially in the right lung base along with some dullness to percussion Heart sounds are regular, positive S1-S2 and there is systolic ejection murmur grade 3/6 systolic the precordium Abdominal exam revealed normal bowel sounds. The abdomen was soft, non-tender, and without masses, organomegaly, or appreciable enlargement of the abdominal aorta. Extremities revealed +1-2 pitting edema there is no cyanosis or clubbing, 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, there is also evidence of chronic venous stasis and lower extremities bilaterally. the heel ulcerations are improving now that she is in the ICU and is not walking. Neurologic sedated on the ventilator - Labs CBC & Chem 7: 11/11/17 05:00 11/11/17 05:00 Labs: Abnormal Lab Results - Last 24 Hours (Table) 11/11/17 11/11/17 11/11/17 Range/Units 00:00 04:55 05:00 RBC 2.96 L (3.80-5.40) m/uL Hgb 7.8 L (11.4-16.0) gm/dL Hct 25.3 L (34.0-46.0) % MCHC 30.7 L (31.0-37.0) g/dL RDW 17.6 H (11.5-15.5) % Lymphocytes # 0.5 L (1.0-4.8) k/uL ABG pH 7.47 H (7.35-7.45) ABG pCO2 46 H (35-45) mmHg ABG HCO3 33 H (21-25) mmol/L ABG Total CO2 35 H (19-24) mmol/L ABG O2 Saturation 97.9 H (94-97) % BUN (7-17) mg/dL Creatinine (0.52-1.04) mg/dL Glucose (74-99) mg/dL POC Glucose (mg/dL) 158 H (75-99) mg/dL Total Protein (6.3-8.2) g/dL Albumin (3.5-5.0) g/dL 11/11/17 11/11/17 11/11/17 Range/Units 05:00 05:37 11:46 RBC (3.80-5.40) m/uL Hgb (11.4-16.0) gm/dL Hct (34.0-46.0) % MCHC (31.0-37.0) g/dL RDW (11.5-15.5) % Lymphocytes # (1.0-4.8) k/uL ABG pH (7.35-7.45) ABG pCO2 (35-45) mmHg ABG HCO3 (21-25) mmol/L ABG Total CO2 (19-24) mmol/L ABG O2 Saturation (94-97) % BUN 53 H (7-17) mg/dL Creatinine 2.10 H (0.52-1.04) mg/dL Glucose 150 H (74-99) mg/dL POC Glucose (mg/dL) 160 H 180 H (75-99) mg/dL Total Protein 5.4 L (6.3-8.2) g/dL Albumin 2.5 L (3.5-5.0) g/dL 11/11/17 Range/Units 17:40 RBC (3.80-5.40) m/uL Hgb (11.4-16.0) gm/dL Hct (34.0-46.0) % MCHC (31.0-37.0) g/dL RDW (11.5-15.5) % Lymphocytes # (1.0-4.8) k/uL ABG pH (7.35-7.45) ABG pCO2 (35-45) mmHg ABG HCO3 (21-25) mmol/L ABG Total CO2 (19-24) mmol/L ABG O2 Saturation (94-97) % BUN (7-17) mg/dL Creatinine (0.52-1.04) mg/dL Glucose (74-99) mg/dL POC Glucose (mg/dL) 155 H (75-99) mg/dL Total Protein (6.3-8.2) g/dL Albumin (3.5-5.0) g/dL Microbiology - Last 24 Hours (Table) 11/08/17 14:50 Gram Stain - Preliminary Pleural Fluid Body Fluid Culture - Preliminary Laboratory Results WBC 8.4 k/uL (3.8-10.6) 11/11/17 05:00 RBC 2.96 m/uL (3.80-5.40) L 11/11/17 05:00 Hgb 7.8 gm/dL (11.4-16.0) L 11/11/17 05:00 Hct 25.3 % (34.0-46.0) L 11/11/17 05:00 MCV 85.6 fL (80.0-100.0) 11/11/17 05:00 MCH 26.3 pg (25.0-35.0) 11/11/17 05:00 MCHC 30.7 g/dL (31.0-37.0) L 11/11/17 05:00 RDW 17.6 % (11.5-15.5) H 11/11/17 05:00 Plt Count 175 k/uL (150-450) 11/11/17 05:00 Neutrophils % 82 % 11/11/17 05:00 Lymphocytes % 6 % 11/11/17 05:00 Monocytes % 8 % 11/11/17 05:00 Eosinophils % 4 % 11/11/17 05:00 Basophils % 0 % 11/11/17 05:00 Neutrophils # 6.8 k/uL (1.3-7.7) 11/11/17 05:00 Lymphocytes # 0.5 k/uL (1.0-4.8) L 11/11/17 05:00 Monocytes # 0.6 k/uL (0-1.0) 11/11/17 05:00 Eosinophils # 0.3 k/uL (0-0.7) 11/11/17 05:00 Basophils # 0.0 k/uL (0-0.2) 11/11/17 05:00 Manual Slide Review Performed 11/01/17 04:06 Hypochromasia Marked 11/11/17 05:00 Anisocytosis Slight 11/11/17 05:00 ESR 69 mm/hr (0-20) H 10/28/17 05:47 Retic Count 6.7 % (0.5-2.0) H 11/06/17 04:15 PT 9.6 sec (9.0-12.0) 11/08/17 12:05 INR 1.0 (<1.2) 11/08/17 12:05 APTT 133.7 sec (22.0-30.0) H* 11/01/17 06:30 D-Dimer 1.80 mg/L FEU (<0.60) H 10/25/17 13:20 Sample Site lore 11/11/17 04:55 ABG pH 7.47 (7.35-7.45) H 11/11/17 04:55 ABG pCO2 46 mmHg (35-45) H 11/11/17 04:55 ABG pO2 90 mmHg (83-108) 11/11/17 04:55 ABG HCO3 33 mmol/L (21-25) H 11/11/17 04:55 ABG Total CO2 35 mmol/L (19-24) H 11/11/17 04:55 ABG O2 Saturation 97.9 % (94-97) H 11/11/17 04:55 ABG Base Excess 9.4 mmol/L 11/11/17 04:55 Timothy Test no 11/11/17 04:55 FiO2 40 % 11/11/17 04:55 Sodium 142 mmol/L (137-145) 11/11/17 05:00 Potassium 3.6 mmol/L (3.5-5.1) 11/11/17 05:00 Chloride 103 mmol/L (98-107) 11/11/17 05:00 Carbon Dioxide 30 mmol/L (22-30) 11/11/17 05:00 Anion Gap 9 mmol/L 11/11/17 05:00 BUN 53 mg/dL (7-17) H 11/11/17 05:00 Creatinine 2.10 mg/dL (0.52-1.04) H 11/11/17 05:00 Est GFR (CKD-EPI)AfAm 28 (>60 ml/min/1.73 sqM) 11/11/17 05:00 Est GFR (CKD-EPI)NonAf 24 (>60 ml/min/1.73 sqM) 11/11/17 05:00 Glucose 150 mg/dL (74-99) H 11/11/17 05:00 POC Glucose (mg/dL) 155 mg/dL (75-99) H 11/11/17 17:40 POC Glu Grinder Needle Tip ID 11/11/17 17:[address] Glu mg/dL 103 10/31/17 04:20 Hemoglobin A1c 5.2 % (4.0-6.0) 10/31/17 04:20 Plasma Lactic Acid Jamar <0.5 mmol/L (0.7-2.0) L 10/31/17 04:20 Calcium 8.8 mg/dL (8.4-10.2) 11/11/17 05:00 Phosphorus 4.3 mg/dL (2.5-4.5) 11/11/17 05:00 Magnesium 2.2 mg/dL (1.6-2.3) 11/11/17 05:00 Iron 27 ug/dL (50-170) L 11/06/17 04:15 TIBC 253 ug/dL (228-460) 11/06/17 04:15 Iron Saturation 10.67 (12.00-45.00) L 11/06/17 04:15 Ferritin 108.3 ng/mL (10.0-291.0) 11/06/17 04:15 Total Bilirubin 0.3 mg/dL (0.2-1.3) 11/11/17 05:00 AST 14 U/L (14-36) 11/11/17 05:00 ALT 38 U/L (9-52) 11/11/17 05:00 Alkaline Phosphatase 70 U/L (38-126) 11/11/17 05:00 Lactate Dehydrogenase 359 U/L (313-618) 11/08/17 05:30 Total Creatine Kinase 22 U/L (30-135) L 10/29/17 05:28 CK-MB (CK-2) 1.5 ng/mL (0.0-2.4) 10/29/17 05:28 CK-MB (CK-2) Rel Index 6.8 10/29/17 05:28 Troponin I <0.012 ng/mL (0.000-0.034) 10/26/17 05:40 C-Reactive Protein 14.6 mg/L (<10.0) H 10/28/17 05:47 NT-Pro-B Natriuret Pep 3960 pg/mL 10/25/17 13:20 Total Protein 5.4 g/dL (6.3-8.2) L 11/11/17 05:00 Total Protein (PEP) 6.1 g/dL (6.2-8.2) L 10/28/17 05:47 Albumin 2.5 g/dL (3.5-5.0) L 11/11/17 05:00 Albumin (PEP) 2.76 g/dL (3.80-4.90) L 10/28/17 05:47 Rlnbw-8-Pudeobkwj 0.45 g/dL (0.10-0.40) H 10/28/17 05:47 Wsvcs-0-Qbefuwbsu 0.59 g/dL (0.60-1.00) L 10/28/17 05:47 Beta Globulins 1.38 g/dL (0.60-1.30) H 10/28/17 05:47 Gamma Globulins 0.92 g/dL (0.70-1.50) 10/28/17 05:47 PEP Interpretation SEE NOTE 10/28/17 05:47 Vitamin B12 609.0 pg/mL (200.0-944.0) 11/06/17 04:15 Methylmalonic Acid 2.18 umol/L (<0.40) H 11/06/17 04:15 RBC Folate 1,058 ng/mL (280 - 791) H 11/06/17 04:15 TSH 1.370 mIU/L (0.465-4.680) 10/31/17 04:20 Cortisol 24 ug/dL 10/31/17 04:20 Urine Color Red 10/30/17 18:45 Urine Appearance Turbid (Clear) H 10/30/17 18:45 Urine pH 5.5 (5.0-8.0) 10/30/17 18:45 Ur Specific Irving 1.015 (1.001-1.035) 10/30/17 18:45 Urine Protein 2+ (Negative) H 10/30/17 18:45 Urine Glucose (UA) Trace (Negative) H 10/30/17 18:45 Urine Ketones Negative (Negative) 10/30/17 18:45 Urine Blood Large (Negative) H 10/30/17 18:45 Urine Nitrite Negative (Negative) 10/30/17 18:45 Urine Bilirubin Negative (Negative) 10/30/17 18:45 Urine Urobilinogen <2.0 mg/dL (<2.0) 10/30/17 18:45 Ur Leukocyte Esterase Large (Negative) H 10/30/17 18:45 Urine RBC 113 /hpf (0-5) H 10/30/17 18:45 Urine WBC >182 /hpf (0-5) H 10/30/17 18:45 Urine WBC Clumps Many /hpf (None) H 10/30/17 18:45 Ur Squamous Epith Cells 1 /hpf (0-4) 10/28/17 02:27 Urine Bacteria Many /hpf (None) H 10/30/17 18:45 Granular Casts 129 /lpf (0) 10/30/17 18:45 Urine Yeast (Budding) Rare /hpf (None) H 10/28/17 02:27 Fluid Source Pleural 11/08/17 14:50 Fluid Color Yellow 11/08/17 14:50 Fluid Appearance Hazy 11/08/17 14:50 Fluid RBC 326 /uL 11/08/17 14:50 Fluid Nucleated Cells 144 /uL 11/08/17 14:50 Fluid Polynuclear WBCs 10 % 11/08/17 14:50 Fluid Mononuclear WBCs 90 % 11/08/17 14:50 Fluid Eosinophils 1 % 11/01/17 11:01 Body Fluid Glucose Source Pleural Fluid 11/08/17 14:50 Fluid Glucose 118 mg/dL 11/08/17 14:50 Body Fluid LDH Source Pleural Fluid 11/09/17 15:00 Fluid LDH 192 U/L 11/09/17 15:00 Random Vancomycin 19.5 ug/mL 11/05/17 04:12 Serum ALYCE Interpret SEE NOTE 10/28/17 05:47 DIANNE Screen NEGATIVE (NEGATIVE) 10/28/17 05:47 c-ANCA <1:20 Titer (<1:20) 10/25/17 13:00 p-ANCA <1:20 Titer (<1:20) 10/25/17 13:00 Complement C3 156.0 mg/dL (80.0-207.0) 10/28/17 05:47 Complement C4 33.6 mg/dL (10.0-53.0) 10/28/17 05:47 Tot Complement (CH50) 91 U/mL (42 - 95) 10/29/17 05:28 Free Kelly LC, Quant 20.30 mg/dL (0.33-1.94) H 10/31/17 04:20 Free Lambda LC, Quant 2.79 mg/dL (0.57-2.63) H 10/31/17 04:20 Hepatitis A IgM Ab Non-Reactive (Non-Reactive) 10/28/17 05:47 Hep Bs Antigen Non-Reactive (Non-Reactive) 10/30/17 19:00 Hep Bs Antibody Non-Reactive (Non-Reactive) 10/30/17 19:00 Hep Bs Antibody, Quant 3.5 mIU/mL 10/30/17 19:00 Hep B Core IgM Ab Non-Reactive (Non-Reactive) 10/28/17 05:47 Hep C IgG Ab Non-Reactive (Non-Reactive) 10/28/17 05:47 Virus Source See Below 11/01/17 11:01 Viral Test See Below 11/01/17 11:01 Virus Analysis Interp See Below 11/01/17 11:01 Blood Type B Positive 11/07/17 07:25 Blood Type Recheck No 11/07/17 07:25 Antibody Screen NEGATIVE 11/07/17 07:25 Crossmatch See Detail 10/26/17 18:58 Spec Expiration Date 11/10/2017 - 232411/07/17 07:25 Microbiology 11/08/17 14:50 Pleural Fluid Gram Stain - Preliminary 11/08/17 14:50 Pleural Fluid Body Fluid Culture - Preliminary 11/08/17 14:50 Pleural Fluid Anaerobic Culture - Preliminary 11/08/17 11:50 Urine,Catheterized Urine Culture - Final Kaley albicans 11/01/17 11:01 Bronchial Washings - Right Fungal Culture - Preliminary Kaley albicans 11/01/17 11:01 Bronchial Washings - Right Gram Stain - Final 11/01/17 11:01 Bronchial Washings - Right Bronchial Washings Culture - Final Kaley albicans 10/31/17 21:15 Sputum Gram Stain - Final 10/31/17 21:15 Sputum Sputum Culture - Final Kaley albicans 11/01/17 11:01 Bronchial Washings - Right Acid Fast Bacilli Smear - Final 11/01/17 11:01 Bronchial Washings - Right Acid Fast Bacilli Culture - Preliminary 10/26/17 17:30 Blood Blood Culture - Final No Growth after 144 hours 10/30/17 18:45 Urine,Catheterized Urine Culture - Final 10/25/17 18:17 Blood Blood Culture Gram Stain - Final 10/25/17 18:17 Blood Blood Culture - Final Staphylococcus epidermidis 10/28/17 02:27 Urine,Voided Urine Culture - Final 10/26/17 20:41 Ankle - Right Gram Stain - Final 10/26/17 20:41 Ankle - Right Wound Culture - Final Klebsiella oxytoca Pseudomonas aeruginosa 10/25/17 18:17 Blood Blood Culture - Final Assessment and Plan (1) Diabetes mellitus type 2, uncontrolled, with complications Current Visit: No Status: Acute Priority: Medium Code(s): E11.8 - TYPE 2 DIABETES MELLITUS WITH UNSPECIFIED COMPLICATIONS; E11.65 - TYPE 2 DIABETES MELLITUS WITH HYPERGLYCEMIA SNOMED Code(s): 581423524 (2) Diabetic ulcer of heel Narrative/Plan: 66-year-old woman who has superobesity presented to Hospital from the [facility] with increasing shortness of breath. If the admission there is evidence of fluid overload and worsening of her chronic diastolic congestive heart failure. It is noted that she has developed a right pleural effusion and has been seen by pulmonary medicine. Goal will be for further diuresis before any attempt of a thoracentesis. She this point and was more comfortable than admission, appears her chest pain has improved. Physical chronic ulcerations the left heel and a total contact cast is in place. This is removed tomorrow. The ulceration to the right heel has the Opticel silver in place which is adequate and can be changed every other day. She does have a chronic anemia that has worsened over the last year. This may be worsening her heart failure and will be further evaluated at this time. She is being treated for this significant infection to heal with intravenous vancomycin at the [facility]. Vancomycin will continue also had and Rocephin now based on prior culture results. Patient is a blood culture drawn it appears to be contamination would need no further ulceration of treatment unless there are further positive blood cultures. Given that she does not have fevers or chills it is not likely that she has a line sepsis. 10/28/2017 patient statuses worsened today. Her pulmonary status seems to have declined and she is requiring BiPAP for adequate oxygenation. She is more confused with her current respiratory difficulties. She however is not agitated and does not seem to be uncomfortable. BiPAP is reapplied and is being watched closely to try to keep into place. Blood culture contamination. Wound culture has gram-negative bacilli and at this time vancomycin is being continued to complete his course of therapy from the prior bony infection, Rocephin is being utilized until there is further culture data. Her prognosis is poor. 10/29/2017 the patient is improved today. With her BiPAP and place her mentation is clear. The ulceration of the left heel will be treated with the silver alginate dressing also. Antibiotic therapy will be altered from Rocephin to ceftazidime given the isolated Klebsiella and Pseudomonas. She continues to have difficulty with her renal failure is being followed by nephrology. She is yet to clear her last dose of antibiotic therapy (vancomycin ) that was given before her admission. The patient is very weak and will need to complete a course of physical therapy before she will be able to get back to her home setting. Nephrology is relating if she does not have further improvement they will then consider renal replacement therapy to improve her fracture volume overload chronic respiratory failure and acidosis. 10/31 2017 d the patient is now developed respiratory failure and is required intubation with sedation and mechanical ventilation. She is comfortable at this time and is well sedated. Receiving hemodialysis to improve her volume overload and her acidosis. The acute renal failure appears to be multifactorial and it is as she has been vancomycin therapy. 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 She is nearing the end of course of that treatment and with the renal failure the vancomycin level has remained high for the last several days and likely will be able to complete course of therapy without any further dosing. With the gram negatives being seen from the ankle culture Rocephin was added. This is transition to ceftazidime given the finding of pseudomonas at the site. 11/01/2017reveals the patient to remain on the ventilator is intubated and sedated, seems comfortable. Seething further courses of hemodialysis today. Goal is for further fluid removal to improve her volume overload status to improve her respiratory failure. Her sepsis appears to be stable. She will receive no further doses of vancomycin at this time still has adequate levels at this time. She had mucus plugging earlier in the day and a bronchoscopy was performed urgently. Cultures are pending which will further direct antimicrobial therapy as needed. Pathogens isolated from the leg Fortaz is being utilized with also cover pneumonia, still has therapeutic levels of vancomycin. 11/04/2017 patient remains in intensive care unit intubated sedated and mechanically ventilated. Does appear to be comfortable and with her several courses dialysis's had some improvement of her extensive edema and volume overload. Antimicrobial therapy as well as ceftazidime for the pathogens from the ankle ulceration. Vancomycin therapy has completed. Her creatinine is improved and is at 1.97 today. Social work team is working with the courts to have a guardian appointed to make the appropriate plans. 11/08/2017 patient has had a tracheostomy and PEG tube placed today. The patient is receiving antibiotic therapy with ceftazidime for gram-negative isolated from leg and for potential pneumonia. She is stable and hopefully with the tracheostomy and the pigtail catheter placed into the pleural space will be further improvement of her pulmonary status. Working with the guardian for placement in long-term care with ventilator care. 11/10/2017 patient is stable status post tracheostomy and PEG tube placement. She also in the pigtail catheter placed for the pleural effusion. She seems comfortable today does seem to recognize interviewer and smiles upon my presentation. No other interactions are occurring though. Is noted that she has multiple cultures now growing Kaley and subsequently fluconazole will be added. 11/11/2017 the patient is stable after her tracheostomy and PEG tube placement. The amount of fluid draining through her pigtail catheter into the right pleural space is also markedly diminished. Pulmonary status is stable but there is concerns for an aspiration event today. This will monitor closely. She is receiving intravenous antibiotic therapy with ceftazidime for the significant gram-negative infection. Fluconazole was added to improve the fungal superinfection. The patient is comfortable at this point in time but has very poor mental status. Likely move to a care facility in the near future. She has a state appointed guardian. Current Visit: Yes Status: Chronic Priority: High Code(s): E11.621 - TYPE 2 DIABETES MELLITUS WITH FOOT ULCER; L97.409 - NON-PRS CHRONIC ULCER OF UNSP HEEL AND MIDFOOT W UNSP SEVERT SNOMED Code(s): 67689023 (3) Severe obesity (BMI >= 40) Current Visit: Yes Status: Chronic Code(s): E66.01 - MORBID (SEVERE) OBESITY DUE TO EXCESS CALORIES SNOMED Code(s): 704784920
[2017-11-11] MEDS: ATORVASTATIN 10 MG TAB PO SCH (21:19)
[2017-11-11] MEDS: METOPROLOL TARTRATE 12.5 MG TAB PO SCH (21:20)
[2017-11-11 23:43] LABS: Glucose,Whole Blood 119 mg/dL (75-99)
[2017-11-12] MEDS: HEPARIN SODIUM,PORCINE 5,000 UNIT/ML 1 ML VIAL SQ SCH ×3 (00:57→16:21)
[2017-11-12] MEDS: IPRATROPIUM-ALBUTEROL 3 ML NEB INHALATION SCH ×4 (03:31→15:55)
[2017-11-12 04:19] VITALS: TEMP 99.7
[2017-11-12 04:43] LABS: Anisocytosis Slight; Basophils % (A) 0 %; Eosinophils # (A) 0.3 k/uL (0-0.7); Eosinophils % (A) 4 %; HCT 23.9 % (34.0-46.0); HGB 7.2 gm/dL (11.4-16.0); Hypochromasia Marked; Lymphocytes # (A) 0.6 k/uL (1.0-4.8); Lymphocytes % (A) 7 %; MCH 26.2 pg (25.0-35.0); MCHC 30.2 g/dL (31.0-37.0); MCV 86.6 fL (80.0-100.0); Mean Platelet Volume 8.2; Monocytes # (A) 0.5 k/uL (0-1.0); Monocytes % (A) 7 %; Neutrophils # (A) 6.5 k/uL (1.3-7.7); Neutrophils % (A) 81 %; Platelet Count 179 k/uL (150-450); RBC 2.76 m/uL (3.80-5.40); RDW 17.1 % (11.5-15.5)
[2017-11-12 04:51] LABS: Albumin 2.5 g/dL (3.5-5.0); Calcium 8.9 mg/dL (8.4-10.2); Phosphorus 4.3 mg/dL (2.5-4.5); Potassium 3.6 mmol/L (3.5-5.1); Total Bilirubin 0.3 mg/dL (0.2-1.3); Total Protein 5.4 g/dL (6.3-8.2)
[2017-11-12] MEDS: INSULIN ASPART 100 UNIT/ML 1 ML 10 ML VIAL SQ SCH ×2 (05:42→12:28)
[2017-11-12 05:48] LABS: Glucose,Whole Blood 117 mg/dL (75-99)
[2017-11-12] MEDS: POTASSIUM CHLORIDE 20 MEQ in WATER FOR INJECTION 1 100ML.BAG IVPB SCH ×2 (06:20→08:21)
[2017-11-12] MEDS: FUROSEMIDE 10 MG/ML 10 ML VIAL IV SCH (08:21)
[2017-11-12] MEDS: CHLORHEXIDINE GLUCONATE 15 ML CUP MUCOUS MEM SCH (08:21)
[2017-11-12] MEDS: PANTOPRAZOLE 40 MG/10 ML VIAL IVP SCH (08:21)
--- NOTE | 2017-11-12 08:53 | XR ---
EXAMINATION TYPE: XR chest 1V portable DATE OF EXAM: 11/12/2017 COMPARISON: 11/11/2017 INDICATION: ET tube placement tracheostomy tube difficulty breathing TECHNIQUE: Single frontal view of the chest is obtained in the semiupright position FINDINGS: The heart size is normal. The pulmonary vasculature is normal. The lungs are clear. There is elevation of the right diaphragm which appears chronic. Some mild silhouetting the left diap hragm is present. There is an endotracheal tube present with the tip above the billy, unchanged in position. Catheters and leads overlie the chest. IMPRESSION: 1. Elevation of the right diaphragm. Some mild infiltrate or effusion may be present at the left base . 2. Endotracheal tube positioning remains stable.
[2017-11-12] MEDS: METOPROLOL TARTRATE 12.5 MG TAB PO SCH (09:25)
[2017-11-12] MEDS: FLUCONAZOLE ORAL SUSP 1,400 MG/35 ML BOTTLE PO SCH (09:26)
[2017-11-12] MEDS: amLODIPine 10 MG TAB PO SCH (09:26)
[2017-11-12] MEDS: hydrALAZINE HCL 50 MG TAB PO SCH ×2 (09:26→16:22)
--- NOTE | 2017-11-12 11:30 | P.PN ---
Subjective Progress Note Date: 11/12/17 Principal diagnosis: Acute on chronic hypoxic respiratory failure secondary to diastolic congestive heart failure, large right-sided pleural effusion, right lung collapse, and possible sepsis. 65-year-old female patient is being seen in follow-up on 11/04/2017. This patient is morbidly obese with a BMI 33.9. She is in the intensive care is with acute on top of chronic history failure most likely on the basis of massive fluid overload. This morning, she is assist-control mode of ventilation at the rate of 20 with tidal volume of 400 and FiO2 of 50% with a PEEP of 10. Chest x-ray shows a right-sided pleural effusion. ET tube is in a good location. The blood gas showed a pH of 7.39 with a pCO2 of 46 and pO2 of 70 and this was on FiO2 of 50%. The patient is sedated with propofol at a dose of 50 g per KG per minute. She can arouse upon given a sedation holiday. In terms of her fluid overload, the patient has already received 2 sessions of hemodialysis 3 temporary dialysis catheter inserted in the right IJ. I discussed the case with nephrology today. We decided to hold off on dialysis as the patient is producing adequate amount of urine output while being on Lasix 83 g IV push every 12 hours. The patient is improving in terms of urine output and she is ready produced 1.9 L of urine output since morning. The creatinine from today's at 1.9 and the rest of the electrodes are all within normal limits. No significant acidosis. Bronchoscopy was done earlier and the patient did not reveal any significant microbial growth and the bronchioloalveolar lavage was also negative. Patient is on IV Fortaz and infectious disease on the case regarding the lower extremity wounds. On 11/05/2017 I'm seeing this patient for a follow-up. The patient is sedated and intubated on a mechanical ventilator. She is an assist-control mode of ventilation at the rate of 12 and FiO2 of 50% and a PEEP of 8 with a tidal volume of 400. She is was sedated with Diprivan and she is calm and comfortable. No significant orotracheal secretion. Chest x-ray showing a large right-sided pleural effusion and his tube is in a good location. The blood gas showed a pH of 7.4 with a pCO2 of 44 and pO2 of 63. We held off on dialysis yesterday as the patient is improving in terms of urine output. She is producing almost 50 mL an hour and she is on Lasix 80 mg IV push every 8 hours. The net fluid balance is -697 mL over the past 24 hours. We have contemplated PEG and trach. We will also contemplated chest tube insertion however we were not successful and obtaining consent. We're the process of getting a legal guardian at this point to undergo this procedures. Unfortunately nothing much can be done without any consent knowing that all of these procedures are not life saving or do not being done for immediate life- threatening conditions. The patient is not having any fever. No leukocytosis. Hemoglobin is at 7. Creatinine is down to 2. No pressors for now. Tolerating the tube feeds. Antibiotic coverage includes IV Fortaz and clindamycin. No other significant events over the past 24 hours for now. On 11/06/2017 I'm seeing this patient in the intensive care unit in a follow- up. We were able to finally get a public guardian for this patient. As mentioned she want to be a full code and based on that the public guardian is agreeable to any further intervention including a PEG and a trach. My intention is to give the patient is sedation holiday for a longest period of time and assess the patient's underlying mental status. I would like to see some response and alertness from this patient off sedation. At the same time would like to get this patient another session of ultrafiltration together as dry as possible in consideration for possible weaning/extubation. If this fails , the alternative will be long-term PEG and trach. On today's chest x-ray, the patient is small lung volumes and the patient continues to have a right-sided pleural effusion. She remains on assist control mode mode of ventilation. She is on a volume cycle with a tidal volume of 400 and FiO2 of 50% and a PEEP of 5. The blood gases from this morning showed a pH of 7.4 with a pCO2 of 44 and pO2 of 60 and this was on the 50% FiO2. The patient is on no pressors. The patient is afebrile. The patient is covered with broad-spectrum antibiotics. ID is on the case. Renal function continues to be impaired with a creatinine of 2.0. The patient underwent ultrafiltration yesterday with removal of 3 L and another session of ultrafiltration will be done today and this was coordinated with nephrology. She is afebrile. She is tolerating her tube feeds. She is producing good urine output while on IV Lasix. Otherwise no other significant events over the past 24 hours. On 11/07/2017, the patient remains in intensive care unit intubated on a mechanical ventilator. I was very close to consider extubating this patient however is unaffected that she was started on an FiO2 of 60% and based on her weakness and poor ability to clear the rest or secretions, decided not to. I decided to give this patient another day on a mechanical ventilator during which I'm going to give her another session of ultrafiltration diuresis with IV Lasix and optimize further volume status and consider possibility of extubation today. This will be a very difficult extubation. The patient may very well failed extubation. Alternative would be long-term mechanical ventilation through a tracheostomy tube which I have ordered the agreed upon with her legal guardian. I would like however to try at least an extubation on this patient once she is fully dialyzed and diuresis. Based on this, it kept on the sedation this morning. She was able to arouse from her sedation to the point where she was following simple commands. She remains extremely weak and upper and lower extremities. Ultrafiltration will be done today and the goal be removal of 3 L of IV fluids. She is producing adequate amount of urine output and she is still on IV Lasix. Renal function from today shows a creatinine of 2.1. As far as vent support, the patient is still on the same vent setting within assist-control of 20, tidal volume of 400 with an FiO2 of 60% and a PEEP of 5. Her morning blood gases showed a pH of 7.38 with a pCO2 of 46 and pO2 of 85. I was able to cut down the FiO2 down to 50% and she maintain a saturation above 90%. Chest x-ray findings are still the same and the patient has a right- sided pleural effusion. Lung volumes are essentially small at this point in time. She is tolerating her tube feeds. We will make it final decision on extubation versus long-term PEG and trach and long-term mechanical ventilation with the next 24 hours. I am inclined to at least give her a trial of extubation prior to going to a long-term vent management system especially with her poor baseline performance and functional status and poor long-term prognosis. She is afebrile. No other significant events occurred over the past 24 hours. On 11/08/2017, I'm seeing this patient for a follow-up. I decided not to extubate the patient. The patient did not wake up appropriately and I do not think she had the strength on the motor function or diabetic to clear rest or secretions if extubation was performed. Based on that the patient was kept on a mechanical ventilator throughout the night and earlier this morning the patient was taken to the operating room and she underwent a PEG and tracheostomy tube insertion. This was done by Dr. Mccarty. The patient is back to the intensive care unit and the patient is currently being weaned off the sedation for now. She is hemodynamically stable. Chest x-ray shows significant opacification of the right lung and this was noted as the patient is having on and off right-sided pleural effusion in addition to some underlying atelectasis at the chest x-ray shows volume loss in addition to pleural effusion. Based on this, I discussed the case with interventional radiology and we decided to receiving the pigtail catheter insertion at the bedside under ultrasound guidance. This will be likely done today. Meanwhile, the patient is hemodynamically stable. Her last dialysis and ultrafiltration was done yesterday. The patient is in a negative fluid balance. The patient is producing adequate amount of urine output. The patient is an assist-control mode at the rate of 20 with tidal volume of 400 and FiO2 of 50% and a PEEP of 5 and a morning blood gases showed a pH of 7.42 with a pCO2 of 46 and pO2 of 72. The creatinine is at 1.8. Rest of the electrodes are within normal limits and a potassium level needs to be replaced. She remains on IV Lasix and she is producing adequate urine output. On 11/09/2017, the patient is post PEG and trach. The patient is taken off sedation and we are in the process of evaluating her mental status. I'm concerned that the patient has significant degree of metabolic encephalopathy in addition to drug effect affecting her mentation. The patient meanwhile remains on a mechanical ventilator. She has a Shiley extra long tracheostomy tube. No leaks around the tube. She is an assist-control mode of ventilation. Vent settings remain the same as yesterday and FiO2 was up down to 40% and the patient is on a tidal volume of 400. She is also on a PEEP of 5 at the rate of 20. As mentioned, the patient had significant opacification of the right lung yesterday and I was able to work with interventional radiology and insert a pigtail catheter in the right lung and she has drained approximately 1.5 L of pleural fluid thus far. On today's chest x-ray, there is significant improvement in the aeration of the right lower lobe although the patient had some right upper lobe atelectasis with volume loss and that is the cutoff sign indicating an underlying mucous plug. Note that she was bronchoscoped earlier during this hospitalization and therapeutic it was suctioning was done and she did not have any microbial growth. She is on IV cefepime. She'll feeds will be restarted. PEG tube site is clean. No fever. No chills. No hypotension. No other issues otherwise for now. On 11/10/2017, the patient is post PEG and trach. She remains on a mechanical ventilator. I am quite impressed by today's chest x-ray. There is really expansion of the right upper lobe as likely the tidal volume up to 500. The pleural effusion on the right side has completely resolved and the patient has a pigtail catheter in the right lung which will be kept in for another 24 hours. The patient is very comfortable while being assist-control mode at the rate of 20 with a tidal volume of 500 with a PEEP of 5 and an FiO2 of 40%. The blood gases showed a pH of 7.47 with a pCO2 of 42 and pO2 of 95 on 40% FiO2. No rest or secretions. The active issue for now intensive neurologic impairment. While being off sedation for 24 hours the patient would open up her eyes 2 and occasionally follows some simple commands and she is not tracking and she is not consistent in her ability to communicate or interact with the nurses. She is extremely weak to the point where she cannot raise her arms and her legs against gravity. Cough is weak. She is tolerating her tube feeds. She is afebrile. Hemoglobin is at 7.8 and the patient is diuresing well and she has been negative fluid balance and she had marked improvement in the third spacing and excessive edema and for that reason I cut down the IV Lasix. Renal function is stable with a creatinine of 2.1. Patient was reevaluated today on 11/11/2017, remains on mechanical ventilation, and I plan to give her a trial of pressure support and CPAP today. Apparently she tolerated CPAP yesterday, but considering the overall picture, the patient is not ready for extubation and placement on a trach collar. Patient is having intermittent episodes of nausea and vomiting today, hence she will be given Zofran, and the PEG tube will be placed on suction. Her CBC showed WBC count of 8.4 hemoglobin of 7.8 her ABG showed a pO2 of 90 0 pCO2 of 46 pH of 7.47. Electrolytes are normal BUN is 53 creatinine is 2.10 which is basically the same over the last few days. Chest x-ray is basically about the same, continues to show some residual volume loss and atelectasis in the right base, also in the retrocardiac region, there is also a right-sided pleural catheter without any pneumothorax. Patient does not seem to follow any instructions, she seems to be generally weak. Remains on antibiotics for cellulitis of lower extremities. Being followed by infectious disease on consultation. Had episodes of atrial fibrillation last night, and now she is back in sinus rhythm. Today after discussing with the nurses I felt we could continue intermittently placing the patient on CPAP, but at the same time we should consult [facility] for possibly transferring the patient to the facility. The pleural catheters continues to drain significant amount of fluid , but I plan to discontinue the pleural catheter once the fluid amount is less and less. Reevaluated today on 11/12/2017, patient is on mechanical ventilation, however she is on a pressure support and CPAP. Pressure support is 15, good respiratory rate noted on that mode of mechanical ventilation, and her volumes are in the range of 420. Try to cut down the pressure support down to 12, however I have noted a significant drop in her volumes down to 300. Hence I kept the patient on a pressure support of 15. Patient had no further episodes of nausea and vomiting today, hence I will restart the tube feeding via PEG tube. And if poorly tolerated may consider adding Reglan. Chest x-ray is basically about the same, no acute process was noted. Atelectasis in the right diaphragm elevation noted on the right side, no pleural effusion was noted. Labs were all reviewed hemoglobin is 7.2 WBC count is 8.0. Electrolytes are relatively normal BUN is 58 creatinine is 2.20. And she has fairly good urine output, no plans to do any for further dialysis as per nephrology on the case. Hence the dialysis catheter will be removed today. All the cultures from her once blood and sputum as well as urine were all reviewed. Dr. Bah is following on her abnormal and positive cultures. Initiated a consultation with [facility] yesterday, and hopefully the patient will be evaluated by them today. Clinically the patient is basically about the same, she is quite slow, does not follow any instructions. But again she is not in any form of distress at this point. Objective - Vital Signs Vital signs: Vital Signs Temp 99.7 F H 11/12/17 08:00 Pulse 82 11/12/17 10:00 Resp 16 11/12/17 10:00 BP 155/68 11/12/17 10:00 Pulse Ox 100 11/12/17 10:00 Intake & Output 11/11/17 11/12/17 11/12/17 18:59 06:59 18:59 Intake Total 79 200 220 Output Total 880 689 135 Balance -801 -489 85 Weight 152.1 kg 152.1 kg Intake: IV 23 200 210 0.9 10 100 10 Potassium Chloride 20 meq 100 100 In Water For Injection 1 100ml.bag @ 50 mls/hr IVPB Q2HR [facility] Rx#: [id number] [id number] 1 gm In 100 Sodium Chloride 0.9% 50 ml @ 100 mls/hr IVPB Q12HR [facility] Rx#:[id number] pressure bag 13 Tube Feeding 56 10 Output: Chest Tube Drainage 44 Pleural Catheter Right 44 Urine 880 645 135 Other: Voiding Method Indwelling Catheter Indwelling Catheter Indwelling Catheter ABP, PAP, CO, CI - Last Documented Arterial Blood Pressure 129/57 - Exam Physical exam revealed a 66-year-old female, morbidly obese, on mechanical ventilation via tracheostomy, in no distress. HEENT examination is grossly unremarkable. Mucous membranes are moist. Tracheostomy tube is intact. Neck supple. Full range of motion. No adenopathy thyromegaly or neck vein distention. Right IJ dialysis catheter is noted. Cardiovascular examination reveals regular rate and rhythm, normal S1 and S2, no S3 gallop, no murmur. Lungs reveal severely diminished breath sounds bilaterally, right greater than left. No rhonchi no wheezes noted today. Abdominal exam revealed morbidly obese abdomen, soft, nontender, no megaly, no rebound, PEG tube is intact. Extremities are intact. Chronic lower extremity edema is noted. She also is chronic venous stasis changes with hyperpigmentation. Heels are bandaged. Slightly improved edema of the lower extremities is noted. 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 Left heel measures at 2.4 x 3.5 x 0.2 cm right heel ulceration measuring at 2 x 2 x 0.2 total contact cast was removed Skin: As noted above on the examination of the lower extremities. Neurologic examination reveals that the patient is arousable off the sedation. opens eyes, but does not does not follow any instructions - Labs CBC & Chem 7: 11/12/17 04:30 11/12/17 04:30 Labs: Abnormal Lab Results - Last 24 Hours (Table) 11/11/17 11/11/17 11/11/17 Range/Units 11:46 17:40 23:42 RBC (3.80-5.40) m/uL Hgb (11.4-16.0) gm/dL Hct (34.0-46.0) % MCHC (31.0-37.0) g/dL RDW (11.5-15.5) % Lymphocytes # (1.0-4.8) k/uL Carbon Dioxide (22-30) mmol/L BUN (7-17) mg/dL Creatinine (0.52-1.04) mg/dL Glucose (74-99) mg/dL POC Glucose (mg/dL) 180 H 155 H 119 H (75-99) mg/dL AST (14-36) U/L Total Protein (6.3-8.2) g/dL Albumin (3.5-5.0) g/dL 11/12/17 11/12/17 11/12/17 Range/Units 04:30 04:30 05:44 RBC 2.76 L (3.80-5.40) m/uL Hgb 7.2 L (11.4-16.0) gm/dL Hct 23.9 L (34.0-46.0) % MCHC 30.2 L (31.0-37.0) g/dL RDW 17.1 H (11.5-15.5) % Lymphocytes # 0.6 L (1.0-4.8) k/uL Carbon Dioxide 32 H (22-30) mmol/L BUN 58 H (7-17) mg/dL Creatinine 2.20 H (0.52-1.04) mg/dL Glucose 111 H (74-99) mg/dL POC Glucose (mg/dL) 117 H (75-99) mg/dL AST 12 L (14-36) U/L Total Protein 5.4 L (6.3-8.2) g/dL Albumin 2.5 L (3.5-5.0) g/dL Microbiology - Last 24 Hours (Table) 11/08/17 14:50 Gram Stain - Preliminary Pleural Fluid Body Fluid Culture - Preliminary Assessment and Plan Assessment: 1 acute on top of chronic hypoxic history failure likely on the basis of diastolic CHF/fluid overload and development of a large right-sided pleural effusion. The patient is currently still mechanically ventilated for a tracheostomy tube. The right-sided pleural effusion was evacuated by a pigtail catheter. Continues to drain about 150-200 mL per 24 hours The right upper lobe atelectasis is also recovered as the patient is being mechanically ventilated, however she is tolerating pressure support with CPAP mode of mechanical ventilation. Pressure support is presently at 15, and her FiO2 is 40 %. 2 right lung collapse, post bronchoscopy on 11/01/2017 with a bronchioloalveolar lavage that showed no microbial growth and the patient on empiric antibiotic coverage with IV cefepime. Chest x-ray from today shows complete expansion of the right upper lobe. 3 morbid obesity with a BMI 53.9 4 acute on top of a chronic stage III kidney failure, the patient is currently producing adequate amount of urine output. No dialysis for the past 3 days and the patient is producing adequate amount of urine output and along with ultrafiltration the volume status is improved significantly. 5 anemia of chronic disease secondary to chronic renal failure, hemoglobin is stable at 7.2 6 diabetes mellitus 7 nonhealing ulcers in the lower extremities bilaterally 8 hypertension 9 previous history of cellulitis of the lower eczematous secondary to pseudomonas and klebsiella Recommendation: Continue mechanical ventilation, ventilatory support, GI and DVT prophylaxis, enteral feeding will be restarted again today, we will await to hear from [facility] regarding possibly transferring the patient to the facility. Critical care time is 40 minutes. Time with Patient: Greater than 30
[2017-11-12 12:06] LABS: Glucose,Whole Blood 115 mg/dL (75-99)
[2017-11-12] MEDS: NYSTATIN 100,000 UNIT/GM POWD 15 GM TOPICAL SCH (12:29)
--- NOTE | 2017-11-12 12:42 | P.PN ---
Subjective Progress Note Date: 11/12/17 Principal diagnosis: Acute respiratory failure, pleural effusion Patient was seen and examined. No acute events overnight. Patient is nonverbal. Settings: Tidal volume 500, FiO2 40%, PEEP of 5 Objective - Vital Signs Vital signs: Vital Signs Temp 99.7 F H 11/12/17 08:00 Pulse 72 11/12/17 09:00 Resp 18 11/12/17 09:00 BP 148/62 11/12/17 09:00 Pulse Ox 100 11/12/17 09:00 Intake & Output 11/11/17 11/12/17 11/12/17 18:59 06:59 18:59 Intake Total 79 200 200 Output Total 880 689 85 Balance -801 -489 115 Weight 152.1 kg 152.1 kg Intake: IV 23 200 200 0.9 10 100 Potassium Chloride 20 meq 100 100 In Water For Injection 1 100ml.bag @ 50 mls/hr IVPB Q2HR [facility] Rx#: [id number] cefTAZidime 1 gm In 100 Sodium Chloride 0.9% 50 ml @ 100 mls/hr IVPB Q12HR FORMERLY [facility], [facility]–1983 Rx#:[id number] pressure bag 13 Tube Feeding 56 Output: Chest Tube Drainage 44 Pleural Catheter Right 44 Urine 880 645 85 Other: Voiding Method Indwelling Catheter Indwelling Catheter Indwelling Catheter ABP, PAP, CO, CI - Last Documented Arterial Blood Pressure 129/57 - Exam General: Ill-appearing, no distress, appears at stated age, anasarca. Derm: warm, dry Head: atraumatic, normocephalic, symmetric Eyes: EOMI, no lid lag, anicteric sclera Mouth: no lip lesion, mucus membranes moist, trach in place Cardiovascular: S1S2 reg, no murmur, positive posterior tibial pulse bilateral, Lungs: Coarse breath sounds bilaterally Abdominal: soft, nontender to palpation, PEG in place, obese Ext: no gross muscle atrophy, 1+ pitting edema bilaterally, no contractures, bilateral feet wrapped. Neuro: Tracks with her eyes but is nonverbal and does not follow commands. - Labs CBC & Chem 7: 11/12/17 04:30 11/12/17 04:30 Labs: Abnormal Lab Results - Last 24 Hours (Table) 11/11/17 11/11/17 11/11/17 Range/Units 11:46 17:40 23:42 RBC (3.80-5.40) m/uL Hgb (11.4-16.0) gm/dL Hct (34.0-46.0) % MCHC (31.0-37.0) g/dL RDW (11.5-15.5) % Lymphocytes # (1.0-4.8) k/uL Carbon Dioxide (22-30) mmol/L BUN (7-17) mg/dL Creatinine (0.52-1.04) mg/dL Glucose (74-99) mg/dL POC Glucose (mg/dL) 180 H 155 H 119 H (75-99) mg/dL AST (14-36) U/L Total Protein (6.3-8.2) g/dL Albumin (3.5-5.0) g/dL 11/12/17 11/12/17 11/12/17 Range/Units 04:30 04:30 05:44 RBC 2.76 L (3.80-5.40) m/uL Hgb 7.2 L (11.4-16.0) gm/dL Hct 23.9 L (34.0-46.0) % MCHC 30.2 L (31.0-37.0) g/dL RDW 17.1 H (11.5-15.5) % Lymphocytes # 0.6 L (1.0-4.8) k/uL Carbon Dioxide 32 H (22-30) mmol/L BUN 58 H (7-17) mg/dL Creatinine 2.20 H (0.52-1.04) mg/dL Glucose 111 H (74-99) mg/dL POC Glucose (mg/dL) 117 H (75-99) mg/dL AST 12 L (14-36) U/L Total Protein 5.4 L (6.3-8.2) g/dL Albumin 2.5 L (3.5-5.0) g/dL Microbiology - Last 24 Hours (Table) 11/08/17 14:50 Gram Stain - Preliminary Pleural Fluid Body Fluid Culture - Preliminary Assessment and Plan Assessment: Assessment 66-year-old female with past medical history of heart failure, CKD, diabetes, hypertension, hyperlipidemia presents the ED for chest pain and shortness of breath. She is admitted to rule out PE and for IV diuresing. Patient was initially started on a Heparin drip but was DC'd on 11/01 due to a drop in Hg. She was not able to tolerate V/Q scan or CTA PE. Patient developed worsening pulmonary edema and cardiorenal syndrome. She was intubated on 10/30/2017 after a trial of BiPAP. HD access via triple lumen catheter in the R jugular placed on 10/30/2017. A-line placed 10/31/2017. Bronchoscopy with BAL on 11/01/2017. Trach , PEG and Chest tube placed on 11/08/2017 due to inability to extubate. UCx on and Bronchial washings on 11/01 is + or C. albicans. WCx from the R ankle growing K. oxytoca and P. aeruginosa. Initial BCx from 10/25 grew S. epidermidis but repeat negative. ID is onboard and she is currently on Ceftazidime and Fluconazole. Patient developed encephalopathy in the ICU which has continued. POA attempting to be contacted, if not public guardian. Guarded prognosis, likely comfort care of DC to LTAC. Plan 1. Acute on Chronic Respiratory failure - Likely 2/2 CHF exacerbation and fluid overload from cardiorenal syndrome complicated with R pleural effusion and collapsed lung - r/o ACS - Trop < 0.012 x 2, CKMB negative 10/29, EKG shows NSR. - r/o PE - Elevated D-dimer, high risk for PE, unable to be done x 2, Heparin drip DC' d 11/01/2017 due to drop in Hg per Pulmonology. Venous duplex limited due to edema but negative on 11/01. - Chest tube placed on 11/08, 44 cc of minimal drainage overnight, stable. - ABG 11/11 shows pH 7.47 pCO2 46 HCO3 30 indicating metabolic alkalosis. - CXR 11/12 shows elevated R diaphragm, mild infiltrate or effusion in the left base, ET tube in place. - Continue diuresing with Lasix 80 IV QD. Continue HD per Nephro, last session on 11/07/2017. Continue to titrate vent settings per Pulmonology. CXR improved with expansion of the R lobe. DuoNeb Q6H PRN. 2. Encephalopathy: Possibly due to ICU induced, uremia and UTI. Not making progress. SW on board for POA and public guardian. Electrolytes within normal limits. TSH 1.37, Cortisol 24 on 10/31 (within normal limits). BUN 58, elevated. No indication for HD per Nephro. Continue Fluconazole for UTI. 3. Pulmonary edema: Resolving after Chest tube (11/08) and HD initiation. Likely due to combination of CHF and cardiorenal syndrome. Lights criteria pointing towards Transudate. Pleural Cx shows prelim no growth. Continue full vent support. Lasix 80 IV QD and HD as per Nephro recs. 4. CHF exacerbation: Echo shows EF 50-55%. Continue Lasix 80 mg IV QD and HD per Nephro recs. Continue Metoprolol 50 mg PO BID. Hold Losartan and Aldactone due to worsening CKD and hyperK. Monitor Ins and Outs. Daily weights. K > 4 Mg > 2. FU Cardiology and Nephrology 5. JOHN on CKD III: BUN 58 Cr 2.20 GFR 27. Stable. Due to cardiorenal and Vancomycin toxicity. Last dialysis on 11/07. Continue Lasix 80 IV QD and HD per Nephro recs. Monitor and replace electrolytes. Avoid nephrotoxins. DIANNE and Acute Hep panel negative. C3/C4 within normal limits. Free LC elevated but no further workup as per Rheumatology due to poor prognosis. DC Losartan, Aldactone. FU BMP, Nephrology 6. LLE Wound: WCx + K. oxytoca and P. aeruginosa. ID on board, continue Ceftazidime 1g IV BID (Day 8). Local wound care. Frequent turns. Offloading. FU ID 7. UTI: UA 10/30 shows large LE and many bacteria. UCx + C. albicans > 100k. ID on board, continue Fluconazole 200 mg PO QD (Day 3). FU ID 8. Anemia: Likely due to CHF and CKD. Hg 7.2 Hct 23.9 MCV 86.6. s/p 1 unit PRBC. Continue Aranesp 40 mcg SQ Q7D as per Nephro. Retic count elevated. Iron studies show a combination of iron def. and AOCD. Heparin drip discontinued by pulmonology. Transfuse if Hg < 7.0. 9. Bacteremia: BCx + S. epidermidis but negative on repeat. Likely contaminant. 10. HTN: BP 148/61. Continue Amlodipine 10 mg PO QD, Hydralazine 50 mg PO TID, Metoprolol 50 mg PO BID. Continue to monitor vitals, adjust medications as necessary. 11. Vit D def: Continue Vit D 50 000 units PO Qweekly. 12. ASCVD risk: Continue ASA 81 mg PO QD, Lipitor 10 mg PO QHS. 13. DVT/GI Prophylaxis: Heparin 5000 units SQ BID. Protonix 40 mg IV QD. Dispo: Patient is stabilized but continues to be encephalopathic and does not follow commands. Likely transfer to [facility] today. Time with Patient: Greater than 30
--- NOTE | 2017-11-12 13:26 | P.DS ---
Providers Date of admission: 10/25/17 15:14 Expected date of discharge: 11/12/17 Attending physician: Megan Patel DO Consults: 10/25/17 15:14 Consult Physician Routine Consulting Provider: [facility] Consult Reason/Comments: Chest pain, pulmonary edema Do you want consulting provider notified?: Yes 10/26/17 13:13 Consult Physician Stat Consulting Provider: Cleopatra Hahn Consult Reason/Comments: renal insuffiency Do you want consulting provider notified?: Yes 10/27/17 02:00 Consult Physician Routine Consulting Provider: Cheng Bah Consult Reason/Comments: see's outpatient, has appt Saturday. pus on right heel , wound culture sent. Do you want consulting provider notified?: Yes, Notify in am 10/27/17 11:21 Consult Physician Urgent Consulting Provider: Tor Hansen Consult Reason/Comments: pleural eff Do you want consulting provider notified?: Yes 10/30/17 09:02 Consult Physician Urgent Consulting Provider: Reddy Persaud Consult Reason/Comments: new dialysis patient per Dr. Pedersen Do you want consulting provider notified?: Yes 11/03/17 07:56 Consult Physician Routine Consulting Provider: Efren Mccarty Consult Reason/Comments: Tracheostomy and PEG placement Do you want consulting provider notified?: Yes 11/05/17 12:27 Consult Physician Routine Consulting Provider: Zelalem Mcgovern Consult Reason/Comments: Elevated kappa light chains Do you want consulting provider notified?: Already Contacted Primary care physician: Noelle Raza MD - Discharge Diagnosis(es) (1) Acute and chronic respiratory failure Current Visit: Yes Status: Acute (2) Encephalopathy Current Visit: Yes Status: Acute (3) CHF exacerbation Current Visit: Yes Status: Acute (4) Acute kidney injury superimposed on CKD Current Visit: Yes Status: Acute (5) Wound of left foot Current Visit: Yes Status: Acute (6) UTI (urinary tract infection) Current Visit: Yes Status: Acute (7) Bacteremia Current Visit: Yes Status: Acute (8) Vitamin D deficiency Current Visit: Yes Status: Acute (9) Pulmonary edema Current Visit: Yes Status: Acute Priority: High (10) Anemia Current Visit: Yes Status: Chronic (11) Hypertension Current Visit: Yes Status: Chronic Hospital Course: 66-year-old female with history of DM 2, chronic lower extremity wounds, congestive heart failure who was recently hospitalized the end of August and is currently undergoing rehab in a subacute facility. Patient states she woke this morning was in her good state of health however later in the morning she developed substernal chest pain, rated 5 out of 10. She states that she had no associated symptoms. She was unclear about the duration of her pain. She notified the staff at the [facility] and patient was brought to the emergency room for evaluation. In the emergency room patient was noted to have an elevated BUN/creatinine ratio, chest x-ray notable for volume overload and elevated D-dimer which because of her renal function could not be assessed further assessed so heparin drip was started. Her chest pain was thought to be secondary to fluid overload, but the plan was to rule out ACS. Troponin was less than 0.0122, EKG showed normal sinus rhythm and ACS was ruled out. Patient was noted to have an elevated D-dimer, therefore started on a heparin drip. V/Q scan was attempted multiple times but unsuccessful due to the inability for the patient to lay flat. CTA chest was contraindicated due to her poor renal function. Venous duplex was performed on 11/01/2017 and was negative but limited due to edema. Her heparin drip was discontinued by Pulmonology due to a drop in hemoglobin on 11/01/2017. Her shortness of breath was thought to be secondary to CHF exacerbation and pulmonary edema from cardiorenal syndrome. Patient was initially diuresed on Lasix IV as per nephrology and cardiology recommendations. Through her hospitalization, patient was noted to have increased respiratory distress with subsequent CXRs showing worsening right-sided pleural effusion. BiPAP was started to improve her breathing, but she was eventually intubated on 2017. Hemodialysis access via triple-lumen catheter in the right jugular was placed on 10/30/2017. Arterial line was placed on 10/31/2017. She underwent bronchoscopy with BAL on 11/01/2017. Patient had a chest tube placement on . Analysis of the pleural effusion showed a transudate with no growth. Bronchial washing cultures on 11/01/2017 was positive for Kaley albicans. Daily ABGs showed improvement in her respiratory acidosis. Daily chest x-ray showed improvement in her pleural effusion. Her chest x-ray at the time of discharge showed an slightly elevated right diaphragm, mild infiltrate or effusion at the left base with the ET tube in place. Patient underwent VLTs but was unable to be extubated. She underwent PEG and tracheotomy on 2017. Patient was noted to be encephalopathic, which was new prior to intubation and her ICU stay. Her encephalopathy was thought to be due to ICU delirium, uremia , and UTI. Social work was on board to obtain a POA and public guardian. Her electrolytes were within normal limits. Her TSH is 1.37, Cortisol was 24 on which was within normal limits. She had an elevated BUN of 58 on discharge. Nephro was consulted, but recommended no further dialysis sessions after 11/07/2017. She was treated with Fluconazole for her UTI. For her CHF exacerbation, Echo was obtained which showed an ejection fraction of 50-55%. Cardiology was on board, and recommended diuresing her with Lasix IV. At the time of discharge, she is on Lasix 80 mg IV daily. She was also continued on Metoprolol 50 mg by mouth twice a day. She was initially on Losartan and Aldactone which was held due to worsening CKG and hyperkalemia. Patient was found to have worsening renal function during her hospitalization. Her BUN and creatinine at the time of discharge was 53 and 2.20 respectively. Her acute renal failure was thought to be secondary to cardiorenal syndrome and vancomycin toxicity. Nephrology was on board, dialysis was initiated and stopped on 11/07/2017. She was advised to continue Lasix 80 mg IV daily. DIANNE and acute hepatitis panel was negative. C3 and C4 were within normal limits. She had an elevated free LC but no further workup was recommended by Rheumatology due to her poor poor prognosis. During her hospitalization, patient had wound cultures that grew Klebsiella oxytoca size and Pseudomonas aeruginosa. Infectious disease was consulted, and recommended Ceftazidime 1 g IV twice a day. Patient was noted to be anemic during her hospitalization. This was thought to be secondary to CHF and CKD. She was given one unit of blood during her hospitalization. She was started on Aranesp weekly per nephro recommendations. She was noted to have an elevated reticulocyte count and iron studies showed a combination of iron deficiency and anemia of chronic disease. Patient was noted to have a positive blood culture of staph epidermidis on 2017. This was thought to be a contaminant, as her repeat blood cultures were negative. She was treated with Amlodipine, Hydralazine, and Metoprolol for her hypertension. She was given Vitamin D weekly for her Vitamin D deficiency. She was given ASA and Lipitor for her ASCVD risk. She got DVT prophylaxis with Heparin subcutaneous, and Protonix. Pertinent Studies: Venous duplex Chest x-ray Echocardiogram EKG Procedures: Intubation on 10/30/2017. HD access via triple-lumen catheter in the right jugular on 10/30/2017. Arterial line placed in 10/31/2017. Bronchoscopy with BAL on 11/01/2017. Tracheotomy, PEG and chest tube placement on 11/08/2017. Patient Condition at Discharge: Poor Plan - Discharge Summary Discharge Rx Participant: No New Discharge Prescriptions: New Atorvastatin [Lipitor] 10 mg PO HS #30 tab cefTAZidime [Fortaz] 1 gm IVPB Q12HR #12 vial Chlorhexidine Gluconate [Peridex] 15 ml MUCOUS MEM BID solution Epoetin Mckay [Procrit] 4,000 unit IM WEEKLY #4 vial Ergocalciferol [Vitamin D2 (DRISDOL)] 50,000 unit PO TH #4 cap Fluconazole Oral Susp [Diflucan Oral Susp] 200 mg PO DAILY #55 ml Heparin Sodium,Porcine [Heparin Sodium] 5,000 unit SQ Q8HR #90 vial hydrALAZINE HCL [Apresoline] 50 mg PO TID #90 tab Ipratropium-Albuterol Nebulize [Duoneb 0.5 mg-3 mg/3 ml Soln] 3 ml INHALATION RT-Q4H PRN #30 ampul.neb PRN Reason: Shortness of breath Ondansetron [Zofran] 4 mg IVP Q6HR PRN vial PRN Reason: Nausea And Vomiting Furosemide [Lasix] 80 mg PEJ/J-TUBE DAILY #30 dose Pantoprazole [Protonix] 40 mg PEG/G-TUBE DAILY #30 tablet.dr Continue Magnesium Hydroxide [Milk of Magnesia Concentrate] 30 ml PO DIRECTED PRN PRN Reason: Constipation Bisacodyl [Dulcolax] 10 mg RECTAL DAILY PRN PRN Reason: Constipation Acetaminophen [Tylenol] 325 mg PO Q6HR PRN PRN Reason: Pain Nystatin 100,000 Unit/gm Powd [Mycostatin Powder] 1 applic TOPICAL BID Amino Acids/Protein Hydrolys [Pro-Stat Supplement] 30 ml PO DAILY@1100 #30 liquid amLODIPine [Norvasc] 10 mg PO DAILY #30 tab Aspirin EC [Ecotrin Low Dose] 81 mg PO DAILY@1700 #30 tablet. Insulin Glarickey,Hum.rec.anlog [Basaglar Kwikpen U-100] 44 unit SQ DAILY@ 0700 #12 insuln.pen Metoprolol Tartrate [Lopressor] 50 mg PO BID #60 tab Discontinued traMADol HCl [Ultram] 50 mg PO Q6HR PRN PRN Reason: Pain Omeprazole [PriLOSEC] 20 mg PO DAILY Lovastatin [Mevacor] 40 mg PO HS Insulin Aspart [NovoLOG] See Protocol SQ AC-TID@ Mineral Oil [Fleet Mineral Oil] 133 ml RECTAL ONCE PRN PRN Reason: Constipation Ergocalciferol [Vitamin D2] 50,000 unit PO TH Furosemide [Lasix] 40 mg PO BID@, hydrALAZINE HCL [Apresoline] 25 mg PO BID@ hydrALAZINE HCL [Apresoline] 75 mg PO DAILY@0800 Losartan [Cozaar] 25 mg PO DAILY Spironolactone [Aldactone] 25 mg PO DAILY Discharge Medication List Acetaminophen [Tylenol] 325 mg PO Q6HR PRN 09/23/17 [History] Bisacodyl [Dulcolax] 10 mg RECTAL DAILY PRN 09/23/17 [History] Magnesium Hydroxide [Milk of Magnesia Concentrate] 30 ml PO DIRECTED PRN 12/03 [History] Nystatin 100,000 Unit/gm Powd [Mycostatin Powder] 1 applic TOPICAL BID 10/25/17 [History] Amino Acids/Protein Hydrolys [Pro-Stat Supplement] 30 ml PO DAILY@1100 #30 liquid 11/12/17 [Rx] Aspirin EC [Ecotrin Low Dose] 81 mg PO DAILY@1700 #30 tablet. 11/12/17 [Rx] Atorvastatin [Lipitor] 10 mg PO HS #30 tab 11/12/17 [Rx] Chlorhexidine Gluconate [Peridex] 15 ml MUCOUS MEM BID solution 11/12/17 [Rx] Epoetin Mckay [Procrit] 4,000 unit IM WEEKLY #4 vial 11/12/17 [Rx] Ergocalciferol [Vitamin D2 (DRISDOL)] 50,000 unit PO TH #4 cap 11/12/17 [Rx] Fluconazole Oral Susp [Diflucan Oral Susp] 200 mg PO DAILY #55 ml 11/12/17 [Rx] Furosemide [Lasix] 80 mg PEJ/J-TUBE DAILY #30 dose 11/12/17 [Rx] Heparin Sodium,Porcine [Heparin Sodium] 5,000 unit SQ Q8HR #90 vial 11/12/17 [Rx ] Insulin Glargine,Hum.rec.anlog [Basaglar Kwikpen U-100] 44 unit SQ DAILY@0700 # 12 insuln.pen 11/12/17 [Rx] Ipratropium-Albuterol Nebulize [Duoneb 0.5 mg-3 mg/3 ml Soln] 3 ml INHALATION RT -Q4H PRN #30 ampul.neb 11/12/17 [Rx] Metoprolol Tartrate [Lopressor] 50 mg PO BID #60 tab 11/12/17 [Rx] Ondansetron [Zofran] 4 mg IVP Q6HR PRN vial 11/12/17 [Rx] Pantoprazole [Protonix] 40 mg PEG/G-TUBE DAILY #30 tablet.dr 11/12/17 [Rx] amLODIPine [Norvasc] 10 mg PO DAILY #30 tab 11/12/17 [Rx] cefTAZidime [Fortaz] 1 gm IVPB Q12HR #12 vial 11/12/17 [Rx] hydrALAZINE HCL [Apresoline] 50 mg PO TID #90 tab 11/12/17 [Rx] Follow up Appointment(s)/Referral(s): Noelle Raza MD [Primary Care Provider] - 11/06/17 12:00 pm (Saturday) Cheng Bah MD [STAFF PHYSICIAN] - 1 Week Marcio Pedersen DO [STAFF PHYSICIAN] - 1 Week Homer Burton MD [STAFF PHYSICIAN] - 1 Week Tor Hansen MD [STAFF PHYSICIAN] - 1 Week Efren Mccarty DO [Doctor of Osteopathic Medicine] - 1 Week Activity/Diet/Wound Care/Special Instructions: Diet: Nephro Volume of 1200 cc with goal rate of 50 ml/h = 2160 cals Please follow-up with pulmonology, cardiology, nephrology, infectious disease. Discharge [facility] Pending Studies Pending Results: Blood culture final Bronchial culture final
[2017-11-12 13:50] VITALS: BMI 48.1
--- NOTE | 2017-11-12 14:53 | PN ---
PROGRESS NOTE Patient is seen for followup for acute kidney injury. Renal function is fairly stable and improving with creatinine staying at about 2.1-2.2 mg/dL. Patient is being transferred to [facility] today. On examination, she is awake. Patient remains on the vent. She has a chest tube in place. She has a Guo catheter with good urine output. She is not able to answer any questions. She does not respond to any questions, does respond and turn her face to calling of her name. EXAMINATION: Today, blood pressure was 153/63, heart rate 80 per minute. Patient is afebrile. Examination of the heart: S1, S2. Examination of the lungs: Bilateral breath sounds are heard. Abdomen is soft, nontender. Examination lower extremities shows significant chronic skin changes in the lower extremities. There is edema noted in her bilateral upper extremities and hands. LABS: Show sodium 143, potassium 3.6, BUN 58, serum creatinine 2.2, hemoglobin 7.2 g/dL. ASSESSMENT: 1. Acute kidney injury, acute tubular necrosis, currently stable, nonoliguric with good urine output. The patient also had vancomycin induced toxicity. She had been on dialysis but is currently off of dialysis with improving renal function. 2. Fluid overload maintained on Lasix which she will continue. 3. Chronic kidney disease secondary to diabetic nephropathy and nephrosclerosis. Baseline creatinine about 1.5-2. 4. Vent dependent respiratory failure. 5. Recurrent pleural effusion, status post chest tube placement and pigtail catheter placement. PLAN: DC Daniel catheter. No need for dialysis. Continue to monitor renal function closely. Continue with the Lasix as well. MMODL / IJN: [id number] /
[2017-11-12 15:48] VITALS: BP 153/73
[2017-11-12 16:06] VITALS: PULSE 82
[2017-11-12] MEDS: ASPIRIN 81 MG PO SCH (16:22)
[2017-11-12 16:38] VITALS: RESP 19
== END 2017-11-12 17:57 | DRG 4 ==
LOC: EC 13:01 → 6SEL 15:14 → EEVIPCON 15:14 → 6ICU 10-30 17:13
PROVIDERS: ADMIT Internal Medicine; ATTEND Internal Medicine
PROC: 5A1955Z Respiratory Ventilation, Greater than 96 Consecutive Hours (ICD-10-PCS; 2017-10-30)
PROC: 0BH17EZ Insertion of Endotracheal Airway into Trachea, Via Natural or Artificial Opening (ICD-10-PCS; 2017-10-30)
PROC: 5A1D70Z Performance of Urinary Filtration, Intermittent, Less than 6 Hours Per Day (ICD-10-PCS; 2017-10-30)
PROC: 03HY32Z Insertion of Monitoring Device into Upper Artery, Percutaneous Approach (ICD-10-PCS; 2017-10-31)
PROC: 4A133B1 Monitoring of Arterial Pressure, Peripheral, Percutaneous Approach (ICD-10-PCS; 2017-10-31)
PROC: 4A133J1 Monitoring of Arterial Pulse, Peripheral, Percutaneous Approach (ICD-10-PCS; 2017-10-31)
PROC: 02HV33Z Insertion of Infusion Device into Superior Vena Cava, Percutaneous Approach (ICD-10-PCS; 2017-10-31)
PROC: 0BJ08ZZ Inspection of Tracheobronchial Tree, Via Natural or Artificial Opening Endoscopic (ICD-10-PCS; 2017-11-01)
PROC: 0B9D8ZX Drainage of Right Middle Lung Lobe, Via Natural or Artificial Opening Endoscopic, Diagnostic (ICD-10-PCS; principal; 2017-11-01 11:35)
PROC: 0DH63UZ Insertion of Feeding Device into Stomach, Percutaneous Approach (ICD-10-PCS; 2017-11-08)
PROC: 0W9930Z Drainage of Right Pleural Cavity with Drainage Device, Percutaneous Approach (ICD-10-PCS; 2017-11-08)
PROC: 0B110F4 Bypass Trachea to Cutaneous with Tracheostomy Device, Open Approach (ICD-10-PCS; 2017-11-08 08:30)
DX: I13.2 Hypertensive heart and chronic kidney disease with heart failure and with stage 5 chronic kidney disease, or end stage renal disease (principal); I50.33 Acute on chronic diastolic (congestive) heart failure; J96.21 Acute and chronic respiratory failure with hypoxia; G93.40 Encephalopathy, unspecified; N17.0 Acute kidney failure with tubular necrosis; J98.11 Atelectasis; E87.4 Mixed disorder of acid-base balance; L03.115 Cellulitis of right lower limb; L03.116 Cellulitis of left lower limb; L97.309 Non-pressure chronic ulcer of unspecified ankle with unspecified severity; L97.419 Non-pressure chronic ulcer of right heel and midfoot with unspecified severity; N39.0 Urinary tract infection, site not specified; T17.890A Other foreign object in other parts of respiratory tract causing asphyxiation, initial encounter; Z68.43 Body mass index [BMI] 50.0-59.9, adult; Z99.11 Dependence on respirator [ventilator] status; B37.89 Other sites of candidiasis; R78.81 Bacteremia; J98.19 Other pulmonary collapse; D62 Acute posthemorrhagic anemia; J98.6 Disorders of diaphragm; D50.9 Iron deficiency anemia, unspecified; D63.1 Anemia in chronic kidney disease; D69.6 Thrombocytopenia, unspecified; B95.7 Other staphylococcus as the cause of diseases classified elsewhere; B96.1 Klebsiella pneumoniae [K. pneumoniae] as the cause of diseases classified elsewhere; E11.21 Type 2 diabetes mellitus with diabetic nephropathy; E11.22 Type 2 diabetes mellitus with diabetic chronic kidney disease; E11.621 Type 2 diabetes mellitus with foot ulcer; E11.622 Type 2 diabetes mellitus with other skin ulcer; E11.65 Type 2 diabetes mellitus with hyperglycemia; E55.9 Vitamin D deficiency, unspecified; E66.01 Morbid (severe) obesity due to excess calories; E78.5 Hyperlipidemia, unspecified; E87.5 Hyperkalemia; E87.6 Hypokalemia; I25.10 Atherosclerotic heart disease of native coronary artery without angina pectoris; I27.20 Pulmonary hypertension, unspecified; I48.91 Unspecified atrial fibrillation; L97.529 Non-pressure chronic ulcer of other part of left foot with unspecified severity; N18.3 Chronic kidney disease, stage 3 (moderate); R32 Unspecified urinary incontinence; R79.1 Abnormal coagulation profile; T36.8X5A Adverse effect of other systemic antibiotics, initial encounter; T50.2X5A Adverse effect of carbonic-anhydrase inhibitors, benzothiadiazides and other diuretics, initial encounter; Z79.4 Long term (current) use of insulin; Z79.899 Other long term (current) drug therapy; Z82.49 Family history of ischemic heart disease and other diseases of the circulatory system; Z87.891 Personal history of nicotine dependence; Z83.3 Family history of diabetes mellitus; Z99.2 Dependence on renal dialysis; F40.240 Claustrophobia; Z79.82 Long term (current) use of aspirin; Z81.1 Family history of alcohol abuse and dependence; Z82.3 Family history of stroke; Z88.0 Allergy status to penicillin; Z88.8 Allergy status to other drugs, medicaments and biological substances; B96.5 Pseudomonas (aeruginosa) (mallei) (pseudomallei) as the cause of diseases classified elsewhere; R53.82 Chronic fatigue, unspecified; Z98.42 Cataract extraction status, left eye; Z98.41 Cataract extraction status, right eye; Z86.14 Personal history of Methicillin resistant Staphylococcus aureus infection; Z89.431 Acquired absence of right foot; D50.8 Other iron deficiency anemias
CPT/HCPCS: 31624; 32551; 36415; 36600; 43246; 71045; 71046; 76604; 76942; 80048; 80053; 80074; 80202; 81001; 82533; 82550; 82553; 82607; 82728; 82747; 82805; 82945; 83036; 83540; 83550; 83605; 83615; 83735; 83880; 83883; 83921; 84100; 84132; 84155; 84165; 84443; 84484; 85025; 85027; 85045; 85379; 85610; 85652; 85730; 86038; 86140; 86160; 86162; 86255; 86334; 86706; 86850; 86900; 86901; 86920; 87040; 87070; 87075; 87077; 87086; 87102; 87116; 87186; 87205; 87206; 87252; 87340; 87496; 87498; 87502; 87529; 87634; 87798; 88108; 88305; 89050; 90935; 93005; 93306; 93970; 94002; 94003; 94640; 94660; 94667; 94668; 96374; 99291

== ENCOUNTER 2018-02-08 12:23 | Emergency (ER) | payer MEDICARE, OTHER ==
[2018-02-08 12:39] VITALS: TEMP 98.2
[2018-02-08] MEDS ORDERED: SODIUM CHLORIDE 0.9% 500 ML 500 ML IV STA (13:03)
[2018-02-08] MEDS ORDERED: SODIUM CHLORIDE 0.9% 1,000 ML IV STA (13:03)
--- NOTE | 2018-02-08 13:21 | ED ---
Dizziness HPI - General Chief Complaint: Dizziness Stated Complaint: weakness Time Seen by Provider: 02/08/18 12:24 Source: patient, RN notes reviewed, old records reviewed Mode of arrival: EMS Limitations: no limitations - History of Present Illness Initial Comments: This is a 67-year-old female the ER for weakness dizziness lightheadedness. Feeling of near syncope. Patient is a dialysis patient, was at dialysis today unable to get dialysis secondary severe weakness, low blood pressure, patient does not feel well she feels lightheaded weak nausea, she does admit to not drinking and eating recently. Denies any pain currently MD Complaint: dizziness, lightheadedness, near syncope -: hour(s) Timing: gradual onset Description: lightheadedness, nausea, near-syncope History of Same: Yes History of Trauma: No Severity: moderate Improves With: remaining still Worsens With: movement Associated Symptoms: denies other symptoms - Related Data Home Medications Medication Instructions Recorded Confirmed Acetaminophen [Tylenol] 325 mg PO Q6HR PRN 09/23/17 10/25/17 Bisacodyl [Dulcolax] 10 mg RECTAL DAILY PRN 09/23/17 10/25/17 Magnesium Hydroxide [Milk of 30 ml PO DIRECTED PRN 09/23/17 10/25/17 Magnesia Concentrate] Nystatin 100,000 Unit/gm Powd 1 applic TOPICAL BID 10/25/17 10/25/17 [Mycostatin Powder] Previous Rx's Medication Instructions Recorded Amino Acids/Protein Hydrolys 30 ml PO DAILY@1100 #30 liquid 11/12/17 [Pro-Stat Supplement] Aspirin EC [Ecotrin Low Dose] 81 mg PO DAILY@1700 #30 tablet.dr 11/12/17 Atorvastatin [Lipitor] 10 mg PO HS #30 tab 11/12/17 Chlorhexidine Gluconate [Peridex] 15 ml MUCOUS MEM BID solution 11/12/17 Epoetin Mckay [Procrit] 4,000 unit IM WEEKLY #4 vial 11/12/17 Ergocalciferol [Vitamin D2 50,000 unit PO TH #4 cap 11/12/17 (SHANTEL)] Fluconazole Oral Susp [Diflucan 200 mg PO DAILY #55 ml 11/12/17 Oral Susp] Furosemide [Lasix] 80 mg PEJ/J-TUBE DAILY #30 dose 11/12/17 Heparin Sodium,Porcine [Heparin 5,000 unit SQ Q8HR #90 vial 11/12/17 Sodium] Insulin Glargine,Hum.rec.anlog 44 unit SQ DAILY@0700 #12 11/12/17 [Basaglphillip Saenz U-100] insuln.pen Ipratropium-Albuterol Nebulize 3 ml INHALATION RT-Q4H PRN #30 11/12/17 [Duoneb 0.5 mg-3 mg/3 ml Soln] ampul.neb Metoprolol Tartrate [Lopressor] 50 mg PO BID #60 tab 11/12/17 Ondansetron [Zofran] 4 mg IVP Q6HR PRN vial 11/12/17 Pantoprazole [Protonix] 40 mg PEG/G-TUBE DAILY #30 11/12/17 tablet. amLODIPine [Norvasc] 10 mg PO DAILY #30 tab 11/12/17 cefTAZidime [Fortaz] 1 gm IVPB Q12HR #12 vial 11/12/17 hydrALAZINE HCL [Apresoline] 50 mg PO TID #90 tab 11/12/17 Allergies Allergy/AdvReac Type Severity Reaction Status Date / Time Penicillins Allergy Severe Rash/Hives Verified 10/25/17 14:32 simvastatin [From Zocor] AdvReac Severe Unknown Verified 10/25/17 14:32 pregabalin [From Lyrica] AdvReac Unknown Verified 10/25/17 14:32 tide laundry detergent Allergy Itching Uncoded 10/21/17 10:03 Review of Systems ROS Statement: Those systems with pertinent positive or pertinent negative responses have been documented in the HPI. ROS Other: All systems not noted in ROS Statement are negative. Past Medical History Past Medical History: Heart Failure, Diabetes Mellitus, Hyperlipidemia, Hypertension, Osteoarthritis (OA), Renal Disease, Skin Disorder Additional Past Medical History / Comment(s): Cellutitus right leg, ringing in bilateral ears. 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,CATARACTS BILAT EYES Past Anesthesia/Blood Transfusion Reactions: No Reported Reaction Additional Past Anesthesia/Blood Transfusion Reaction / Comment(s): clausterphobia Past Psychological History: No Psychological Hx Reported Smoking Status: Former smoker - Past Family History Father Additional Family Medical History / Comment(s): ALCOHOLIC Mother Family Medical History: Cancer, CVA/TIA, Diabetes Mellitus, Myocardial Infarction ([place]) Additional Family Medical History / Comment(s): COLON Brother(s) Additional Family Medical History / Comment(s): DRUG DEPENDENCY General Exam - General Exam Comments Initial Comments: Patient does have chronic sore with attached wound VAC Limitations: no limitations General appearance: alert, in no apparent distress, obese Head exam: Present: atraumatic, normocephalic, normal inspection Eye exam: Present: normal appearance, PERRL, EOMI. Absent: scleral icterus, conjunctival injection, periorbital swelling ENT exam: Present: normal exam, mucous membranes moist Neck exam: Present: normal inspection. Absent: tenderness, meningismus, lymphadenopathy Respiratory exam: Present: normal lung sounds bilaterally. Absent: respiratory distress, wheezes, rales, rhonchi, stridor Cardiovascular Exam: Present: regular rate, normal rhythm, normal heart sounds. Absent: systolic murmur, diastolic murmur, rubs, gallop, clicks GI/Abdominal exam: Present: soft, normal bowel sounds. Absent: distended, tenderness, guarding, rebound, rigid Extremities exam: Present: normal inspection, full ROM, normal capillary refill. Absent: tenderness, pedal edema, joint swelling, calf tenderness Back exam: Present: normal inspection Neurological exam: Present: alert, oriented X3, CN II-XII intact Psychiatric exam: Present: normal affect, normal mood Skin exam: Present: warm, dry, intact, normal color. Absent: rash Course Vital Signs 02/08/18 02/08/18 02/08/18 12:25 12:35 13:00 Temperature 98.2 F Pulse Rate 84 85 94 Respiratory 18 11 L 18 Rate Blood Pressure 113/70 113/70 O2 Sat by Pulse 99 Oximetry 02/08/18 02/08/18 02/08/18 13:30 14:00 14:30 Temperature Pulse Rate 85 80 80 Respiratory 13 18 20 Rate Blood Pressure 107/73 115/70 108/63 O2 Sat by Pulse 100 99 97 Oximetry 02/08/18 02/08/18 15:00 15:19 Temperature Pulse Rate 80 80 Respiratory 18 18 Rate Blood Pressure 123/72 123/72 O2 Sat by Pulse 98 98 Oximetry - Reevaluation(s) Reevaluation #1: 02/08/18 15:56 Record is reviewed Patient symptoms improved, resolved EKG Findings - EKG Comments: EKG Findings:: EKG shows sinus rhythm rate of 82, CT 180, QRS 92, QTc 488 Medical Decision Making - Medical Decision Making 67 female the ER for evaluation. Patient's medical record is reviewed, patient' s laboratories are reviewed, patient is given IV hydration, feeling improved, will be discharged home - Lab Data Result diagrams: 02/08/18 12:45 02/08/18 12:45 Lab Results 02/08/18 02/08/18 02/08/18 Range/Units 12:45 12:45 12:45 WBC 6.1 (3.8-10.6) k/uL RBC 3.83 (3.80-5.40) m/uL Hgb 10.8 L (11.4-16.0) gm/dL Hct 32.4 L (34.0-46.0) % MCV 84.8 (80.0-100.0) fL MCH 28.3 (25.0-35.0) pg MCHC 33.4 (31.0-37.0) g/dL RDW 15.6 H (11.5-15.5) % Plt Count 232 (150-450) k/uL Neutrophils % 80 % Lymphocytes % 12 % Monocytes % 4 % Eosinophils % 3 % Basophils % 1 % Neutrophils # 4.9 (1.3-7.7) k/uL Lymphocytes # 0.7 L (1.0-4.8) k/uL Monocytes # 0.3 (0-1.0) k/uL Eosinophils # 0.2 (0-0.7) k/uL Basophils # 0.0 (0-0.2) k/uL PT (9.0-12.0) sec INR (<1.2) APTT (22.0-30.0) sec Sodium 136 L (137-145) mmol/L Potassium 3.3 L (3.5-5.1) mmol/L Chloride 96 L (98-107) mmol/L Carbon Dioxide 27 (22-30) mmol/L Anion Gap 13 mmol/L BUN 22 H (7-17) mg/dL Creatinine 2.83 H (0.52-1.04) mg/dL Est GFR (CKD-EPI)AfAm 19 (>60 ml/min/1.73 sqM) Est GFR (CKD-EPI)NonAf 17 (>60 ml/min/1.73 sqM) Glucose 165 H (74-99) mg/dL Calcium 9.0 (8.4-10.2) mg/dL Phosphorus 3.9 (2.5-4.5) mg/dL Magnesium 1.7 (1.6-2.3) mg/dL Total Bilirubin 0.5 (0.2-1.3) mg/dL AST 20 (14-36) U/L ALT 20 (9-52) U/L Alkaline Phosphatase 85 (38-126) U/L Total Creatine Kinase 23 L (30-135) U/L CK-MB (CK-2) 1.8 (0.0-2.4) ng/mL CK-MB (CK-2) Rel Index 7.8 Troponin I 0.038 H* (0.000-0.034) ng/mL Total Protein 6.4 (6.3-8.2) g/dL Albumin 3.2 L (3.5-5.0) g/dL 02/08/18 Range/Units 12:45 WBC (3.8-10.6) k/uL RBC (3.80-5.40) m/uL Hgb (11.4-16.0) gm/dL Hct (34.0-46.0) % MCV (80.0-100.0) fL MCH (25.0-35.0) pg MCHC (31.0-37.0) g/dL RDW (11.5-15.5) % Plt Count (150-450) k/uL Neutrophils % % Lymphocytes % % Monocytes % % Eosinophils % % Basophils % % Neutrophils # (1.3-7.7) k/uL Lymphocytes # (1.0-4.8) k/uL Monocytes # (0-1.0) k/uL Eosinophils # (0-0.7) k/uL Basophils # (0-0.2) k/uL PT 10.0 (9.0-12.0) sec INR 1.0 (<1.2) APTT 23.4 (22.0-30.0) sec Sodium (137-145) mmol/L Potassium (3.5-5.1) mmol/L Chloride (98-107) mmol/L Carbon Dioxide (22-30) mmol/L Anion Gap mmol/L BUN (7-17) mg/dL Creatinine (0.52-1.04) mg/dL Est GFR (CKD-EPI)AfAm (>60 ml/min/1.73 sqM) Est GFR (CKD-EPI)NonAf (>60 ml/min/1.73 sqM) Glucose (74-99) mg/dL Calcium (8.4-10.2) mg/dL Phosphorus (2.5-4.5) mg/dL Magnesium (1.6-2.3) mg/dL Total Bilirubin (0.2-1.3) mg/dL AST (14-36) U/L ALT (9-52) U/L Alkaline Phosphatase (38-126) U/L Total Creatine Kinase (30-135) U/L CK-MB (CK-2) (0.0-2.4) ng/mL CK-MB (CK-2) Rel Index Troponin I (0.000-0.034) ng/mL Total Protein (6.3-8.2) g/dL Albumin (3.5-5.0) g/dL Disposition Clinical Impression: Dehydration, Weakness Disposition: HOME SELF-CARE Condition: Good Instructions: Dizziness (ED) Is patient prescribed a controlled substance at d/c from ED?: No Referrals: Noelle Raza MD [Primary Care Provider] - 1-2 days
[2018-02-08 13:34] LABS: Basophils % (A) 1 %; Eosinophils # (A) 0.2 k/uL (0-0.7); Eosinophils % (A) 3 %; HCT 32.4 % (34.0-46.0); HGB 10.8 gm/dL (11.4-16.0); Lymphocytes # (A) 0.7 k/uL (1.0-4.8); Lymphocytes % (A) 12 %; MCH 28.3 pg (25.0-35.0); MCHC 33.4 g/dL (31.0-37.0); MCV 84.8 fL (80.0-100.0); Mean Platelet Volume 7.4; Monocytes # (A) 0.3 k/uL (0-1.0); Monocytes % (A) 4 %; Neutrophils # (A) 4.9 k/uL (1.3-7.7); Neutrophils % (A) 80 %; Platelet Count 232 k/uL (150-450); RBC 3.83 m/uL (3.80-5.40); RDW 15.6 % (11.5-15.5); WBC 6.1 k/uL (3.8-10.6)
[2018-02-08 13:43] LABS: Partial Thromboplastin Time 23.4 sec (22.0-30.0)
[2018-02-08 13:47] LABS: Albumin 3.2 g/dL (3.5-5.0); Magnesium 1.7 mg/dL (1.6-2.3); Phosphorus 3.9 mg/dL (2.5-4.5); Potassium 3.3 mmol/L (3.5-5.1); Total Bilirubin 0.5 mg/dL (0.2-1.3); Total Protein 6.4 g/dL (6.3-8.2)
[2018-02-08 14:08] LABS: Creatine Kinase MB 1.8 ng/mL (0.0-2.4)
[2018-02-08 14:16] LABS: Troponin I 0.038 ng/mL (0.000-0.034)
[2018-02-08 15:19] VITALS: BP 123/72; PULSE 80; RESP 18
== END 2018-02-08 16:31 | disposition home or self-care (01) ==
LOC: EC 12:23
DX: E86.0 Dehydration (principal); R53.1 Weakness; R11.0 Nausea; L97.429 Non-pressure chronic ulcer of left heel and midfoot with unspecified severity; L97.419 Non-pressure chronic ulcer of right heel and midfoot with unspecified severity; N18.3 Chronic kidney disease, stage 3 (moderate); I95.9 Hypotension, unspecified; Z87.891 Personal history of nicotine dependence; Z88.0 Allergy status to penicillin; Z88.8 Allergy status to other drugs, medicaments and biological substances; Z91.048 Other nonmedicinal substance allergy status; Z79.899 Other long term (current) drug therapy; Z86.14 Personal history of Methicillin resistant Staphylococcus aureus infection; Z99.2 Dependence on renal dialysis; Z90.49 Acquired absence of other specified parts of digestive tract; Z89.421 Acquired absence of other right toe(s); Z89.431 Acquired absence of right foot
CPT/HCPCS: 36415; 80053; 82550; 82553; 83735; 84100; 84484; 85025; 85610; 85730; 93005; 96360; 96361; 99284

== ENCOUNTER 2018-02-22 10:11 | Emergency (ER) | payer MEDICARE, OTHER ==
[2018-02-22] MEDS ORDERED: SODIUM CHLORIDE 0.9% 1,000 ML IV STA (10:24)
[2018-02-22 11:31] LABS: Basophils % (A) 1 %; Eosinophils # (A) 0.2 k/uL (0-0.7); Eosinophils % (A) 3 %; HCT 31.6 % (34.0-46.0); HGB 10.2 gm/dL (11.4-16.0); Lymphocytes # (A) 1.1 k/uL (1.0-4.8); Lymphocytes % (A) 15 %; MCH 28.1 pg (25.0-35.0); MCHC 32.3 g/dL (31.0-37.0); MCV 87.2 fL (80.0-100.0); Mean Platelet Volume 6.8; Monocytes # (A) 0.2 k/uL (0-1.0); Monocytes % (A) 3 %; Neutrophils # (A) 5.5 k/uL (1.3-7.7); Neutrophils % (A) 77 %; Platelet Count 204 k/uL (150-450); RBC 3.62 m/uL (3.80-5.40); RDW 14.1 % (11.5-15.5); WBC 7.2 k/uL (3.8-10.6)
[2018-02-22 11:41] LABS: ALT 18 U/L (9-52); AST 8 U/L (14-36); Albumin 2.5 g/dL (3.5-5.0); Alkaline Phosphatase 76 U/L (38-126); Anion Gap 8 mmol/L; Blood Urea Nitrogen 52 mg/dL (7-17); Calcium 8.7 mg/dL (8.4-10.2); Carbon Dioxide 27 mmol/L (22-30); Chloride 103 mmol/L (98-107); Glucose 101 mg/dL (74-99); Magnesium 1.9 mg/dL (1.6-2.3); Potassium 3.8 mmol/L (3.5-5.1); Sodium 138 mmol/L (137-145); Total Bilirubin 0.2 mg/dL (0.2-1.3); Total Protein 5.3 g/dL (6.3-8.2)
[2018-02-22 11:48] LABS: Creatine Kinase <20 U/L (30-135)
[2018-02-22 12:01] LABS: Creatine Kinase MB 0.3 ng/mL (0.0-2.4); Troponin I <0.012 ng/mL (0.000-0.034)
[2018-02-22] MEDS ORDERED: MORPHINE SULFATE 4 MG/ML SYRINGE IVP STA ×2 (12:08→12:39)
--- NOTE | 2018-02-22 12:09 | ED ---
Nausea/Vomiting/Diarrhea HPI - General Chief complaint: Nausea/Vomiting/Diarrhea Stated complaint: lethargic Time Seen by Provider: 02/22/18 10:16 Source: patient, EMS, RN notes reviewed, old records reviewed Mode of arrival: EMS Limitations: no limitations - History of Present Illness Initial comments: This is a 67-year-old female to the ER for evaluation. This patient's signed today for evaluation regarding diarrhea. 3-5 days of diarrhea and sternal poor historian. Patient sent in from metal lodged, she has not had dialysis in greater than weak secondary to not feeling well. She denies any fevers no abdominal pain. Patient has chronic pain back pain and just body aches and pains. Patient again is a dialysis patient without dialysis times one week she denies chest pain shortness of breath, denies any other complaints. Taking all medication as prescribed MD complaint: nausea, diarrhea -: days(s) (5) Description of Vomiting: other (None) Description of Diarrhea: other (Persistent) Associated Abdominal Pain: No Radiation: none Severity: moderate (Generalized pain) Severity scale (1-10): 3 Quality: cramping, aching Consistency: constant Improves with: none Worsens with: none Context: other (Patient has not had dialysis) Associated Symptoms: myalgias, weakness - Related Data Home Medications Medication Instructions Recorded Confirmed Acetaminophen [Tylenol] 325 mg PO Q6HR PRN 09/23/17 02/22/18 Bisacodyl [Dulcolax] 10 mg RECTAL DAILY PRN 09/23/17 02/22/18 Magnesium Hydroxide [Milk of 30 ml PO DAILY PRN 09/23/17 02/22/18 Magnesia Concentrate] Amino Acids/Protein Hydrolys 30 ml PO BID 02/22/18 02/22/18 [Pro-Stat Supplement] Furosemide [Lasix] 80 mg PO DAILY 02/22/18 02/22/18 INSULIN LISPRO (HumaLOG) [HumaLOG] See Protocol SQ ACHS 02/22/18 02/22/18 Loperamide HCl [Loperamide] 2 mg PO DAILY PRN 02/22/18 02/22/18 Nitroglycerin Sl Tabs [Nitrostat] 0.4 mg SUBLINGUAL Q5M PRN 02/22/18 02/22/18 Pantoprazole [Protonix] 40 mg PO DAILY 02/22/18 02/22/18 traMADol HCL [Ultram] 50 mg PO Q8HR PRN 02/22/18 02/22/18 Previous Rx's Medication Instructions Recorded Aspirin EC [Ecotrin Low Dose] 81 mg PO DAILY@1700 #30 tablet. 11/12/17 Atorvastatin [Lipitor] 10 mg PO HS #30 tab 11/12/17 Ergocalciferol [Vitamin D2 50,000 unit PO TH #4 cap 11/12/17 (SHANTEL)] Heparin Sodium,Porcine [Heparin 5,000 unit SQ Q8HR #90 vial 11/12/17 Sodium] Ipratropium-Albuterol Nebulize 3 ml INHALATION RT-Q4H PRN #30 11/12/17 [Duoneb 0.5 mg-3 mg/3 ml Soln] ampul.neb Metoprolol Tartrate [Lopressor] 50 mg PO BID #60 tab 11/12/17 Ondansetron [Zofran] 4 mg IVP Q6HR PRN vial 11/12/17 amLODIPine [Norvasc] 10 mg PO DAILY #30 tab 11/12/17 hydrALAZINE HCL [Apresoline] 50 mg PO TID #90 tab 11/12/17 Allergies Allergy/AdvReac Type Severity Reaction Status Date / Time Penicillins Allergy Severe Rash/Hives Verified 02/22/18 13:07 simvastatin [From Zocor] AdvReac Severe Unknown Verified 02/22/18 13:07 pregabalin [From Lyrica] AdvReac Unknown Verified 02/22/18 13:07 tide laundry detergent Allergy Itching Uncoded 10/21/17 10:03 Review of Systems ROS Statement: Those systems with pertinent positive or pertinent negative responses have been documented in the HPI. ROS Other: All systems not noted in ROS Statement are negative. Past Medical History Past Medical History: Heart Failure, Diabetes Mellitus, Hyperlipidemia, Hypertension, Osteoarthritis (OA), Renal Disease, Skin Disorder Additional Past Medical History / Comment(s): Cellutitus right leg, ringing in bilateral ears. 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,CATARACTS BILAT EYES Past Anesthesia/Blood Transfusion Reactions: No Reported Reaction Additional Past Anesthesia/Blood Transfusion Reaction / Comment(s): clausterphobia Past Psychological History: No Psychological Hx Reported Smoking Status: Former smoker - Past Family History Father Additional Family Medical History / Comment(s): ALCOHOLIC Mother Family Medical History: Cancer, CVA/TIA, Diabetes Mellitus, Myocardial Infarction ([place]) Additional Family Medical History / Comment(s): COLON Brother(s) Additional Family Medical History / Comment(s): DRUG DEPENDENCY General Exam Limitations: no limitations General appearance: alert, in no apparent distress Head exam: Present: atraumatic, normocephalic, normal inspection Eye exam: Present: normal appearance, PERRL, EOMI. Absent: scleral icterus, conjunctival injection, periorbital swelling ENT exam: Present: normal exam, mucous membranes moist Neck exam: Present: normal inspection. Absent: tenderness, meningismus, lymphadenopathy Respiratory exam: Present: normal lung sounds bilaterally. Absent: respiratory distress, wheezes, rales, rhonchi, stridor Cardiovascular Exam: Present: regular rate, normal rhythm, normal heart sounds. Absent: systolic murmur, diastolic murmur, rubs, gallop, clicks GI/Abdominal exam: Present: soft, normal bowel sounds. Absent: distended, tenderness, guarding, rebound, rigid Extremities exam: Present: normal inspection, full ROM, normal capillary refill. Absent: tenderness, pedal edema, joint swelling, calf tenderness Back exam: Present: normal inspection Neurological exam: Present: alert, oriented X3, CN II-XII intact Psychiatric exam: Present: normal affect, normal mood Skin exam: Present: warm, dry, intact, normal color. Absent: rash Course Vital Signs 02/22/18 02/22/18 02/22/18 10:18 10:20 10:30 Temperature 97.3 F L Pulse Rate 84 81 85 Respiratory 18 5 L 14 Rate Blood Pressure 139/78 126/83 O2 Sat by Pulse 100 99 99 Oximetry 02/22/18 02/22/18 02/22/18 11:00 11:30 12:00 Temperature Pulse Rate 85 82 84 Respiratory 20 20 18 Rate Blood Pressure 126/83 137/77 137/77 O2 Sat by Pulse 100 99 98 Oximetry 02/22/18 02/22/18 02/22/18 12:30 13:00 13:30 Temperature Pulse Rate 77 79 80 Respiratory 18 17 19 Rate Blood Pressure 148/80 148/80 114/73 O2 Sat by Pulse 98 98 99 Oximetry - Reevaluation(s) Reevaluation #1: 02/22/18 12:38 Medical record is reviewed Reevaluation #2: 02/22/18 14:34 Patient's lab values are within normal limits, no need for urgent dialysis this patient has no fluid overload or no significant electrolyte abnormalities Reevaluation #3: 02/22/18 14:34 Patient has pain control here in the emergency room Medical Decision Making - Medical Decision Making 67 female the ER for evaluation of nausea, diarrhea. Patient has no active diarrhea here in the ER, x-rays labwork are without significant abnormalities, patient will be discharged back to a care facility - Lab Data Result diagrams: 02/22/18 11:15 02/22/18 11:15 Lab Results 02/22/18 02/22/18 02/22/18 Range/Units 11:15 11:15 11:15 WBC 7.2 (3.8-10.6) k/uL RBC 3.62 L (3.80-5.40) m/uL Hgb 10.2 L (11.4-16.0) gm/dL Hct 31.6 L (34.0-46.0) % MCV 87.2 (80.0-100.0) fL MCH 28.1 (25.0-35.0) pg MCHC 32.3 (31.0-37.0) g/dL RDW 14.1 (11.5-15.5) % Plt Count 204 (150-450) k/uL Neutrophils % 77 % Lymphocytes % 15 % Monocytes % 3 % Eosinophils % 3 % Basophils % 1 % Neutrophils # 5.5 (1.3-7.7) k/uL Lymphocytes # 1.1 (1.0-4.8) k/uL Monocytes # 0.2 (0-1.0) k/uL Eosinophils # 0.2 (0-0.7) k/uL Basophils # 0.0 (0-0.2) k/uL PT (9.0-12.0) sec INR (<1.2) APTT (22.0-30.0) sec Sodium 138 (137-145) mmol/L Potassium 3.8 (3.5-5.1) mmol/L Chloride 103 (98-107) mmol/L Carbon Dioxide 27 (22-30) mmol/L Anion Gap 8 mmol/L BUN 52 H (7-17) mg/dL Creatinine 3.35 H (0.52-1.04) mg/dL Est GFR (CKD-EPI)AfAm 16 (>60 ml/min/1.73 sqM) Est GFR (CKD-EPI)NonAf 14 (>60 ml/min/1.73 sqM) Glucose 101 H (74-99) mg/dL Plasma Lactic Acid Jamar (0.7-2.0) mmol/L Calcium 8.7 (8.4-10.2) mg/dL Phosphorus 4.0 (2.5-4.5) mg/dL Magnesium 1.9 (1.6-2.3) mg/dL Total Bilirubin 0.2 (0.2-1.3) mg/dL AST 8 L (14-36) U/L ALT 18 (9-52) U/L Alkaline Phosphatase 76 (38-126) U/L Total Creatine Kinase <20 L (30-135) U/L CK-MB (CK-2) 0.3 (0.0-2.4) ng/mL CK-MB (CK-2) Rel Index Troponin I <0.012 (0.000-0.034) ng/mL Total Protein 5.3 L (6.3-8.2) g/dL Albumin 2.5 L (3.5-5.0) g/dL Acetone, Qual Negative (Negative) 02/22/18 02/22/18 Range/Units 11:15 12:30 WBC (3.8-10.6) k/uL RBC (3.80-5.40) m/uL Hgb (11.4-16.0) gm/dL Hct (34.0-46.0) % MCV (80.0-100.0) fL MCH (25.0-35.0) pg MCHC (31.0-37.0) g/dL RDW (11.5-15.5) % Plt Count (150-450) k/uL Neutrophils % % Lymphocytes % % Monocytes % % Eosinophils % % Basophils % % Neutrophils # (1.3-7.7) k/uL Lymphocytes # (1.0-4.8) k/uL Monocytes # (0-1.0) k/uL Eosinophils # (0-0.7) k/uL Basophils # (0-0.2) k/uL PT 10.3 (9.0-12.0) sec INR 1.0 (<1.2) APTT 24.1 (22.0-30.0) sec Sodium (137-145) mmol/L Potassium (3.5-5.1) mmol/L Chloride (98-107) mmol/L Carbon Dioxide (22-30) mmol/L Anion Gap mmol/L BUN (7-17) mg/dL Creatinine (0.52-1.04) mg/dL Est GFR (CKD-EPI)AfAm (>60 ml/min/1.73 sqM) Est GFR (CKD-EPI)NonAf (>60 ml/min/1.73 sqM) Glucose (74-99) mg/dL Plasma Lactic Acid Jamar 0.7 (0.7-2.0) mmol/L Calcium (8.4-10.2) mg/dL Phosphorus (2.5-4.5) mg/dL Magnesium (1.6-2.3) mg/dL Total Bilirubin (0.2-1.3) mg/dL AST (14-36) U/L ALT (9-52) U/L Alkaline Phosphatase (38-126) U/L Total Creatine Kinase (30-135) U/L CK-MB (CK-2) (0.0-2.4) ng/mL CK-MB (CK-2) Rel Index Troponin I (0.000-0.034) ng/mL Total Protein (6.3-8.2) g/dL Albumin (3.5-5.0) g/dL Acetone, Qual (Negative) - EKG Data -: EKG Interpreted by Me (EKG shows normal sinus rhythm rate of 84, TN 186, QRS 90, QTc 451) - Radiology Data Radiology results: report reviewed (X-ray abdominal series the chest is negative for acute disease), image reviewed Disposition Clinical Impression: Weakness, Diarrhea Disposition: HOME SELF-CARE Condition: Good Instructions: Acute Diarrhea (ED) Is patient prescribed a controlled substance at d/c from ED?: No Referrals: Dav Roldan DO [Primary Care Provider] - 1-2 days
[2018-02-22] MEDS ORDERED: DICYCLOMINE 10 MG/ML 2 ML AMP IM STA (12:39)
[2018-02-22] MEDS ORDERED: ONDANSETRON 4 MG/2 ML VIAL IVP STA (12:39)
[2018-02-22 12:51] LABS: Partial Thromboplastin Time 24.1 sec (22.0-30.0); Prothrombin Time 10.3 sec (9.0-12.0)
--- NOTE | 2018-02-22 14:39 | XR ---
EXAMINATION TYPE: XR abdomen acute w cxr , 3 VIEWS DATE OF EXAM ORDERED: 02/22/2018 HISTORY: Pain. COMPARISON: Previous chest x-ray dated 11/12/2017. FINDINGS: The patient's tracheostomy tube is no longer evident. There has been interval placement of a right internal jugular catheter. Its tip is in the right atrium. Rotation is causing increased opacity to the left thorax. There is atelectasis or scarring in the rig ht midlung. Within the abdomen, there is a moderate dextrorotoscoliosis. This is in part due to rotation. The abd ominal gas pattern is within normal limits. There is no evidence of obstruction or free air. No unusu al calcifications are seen. IMPRESSION: 1. ROTATED STUDY. 2. SATISFACTORY PLACEMENT OF A RIGHT INTERNAL JUGULAR CATHETER. 3. NO ACUTE INTRA-ABDOMINAL ABNORMALITY.
[2018-02-22 15:31] VITALS: BP 126/74; PULSE 84; RESP 14
[2018-02-22 15:34] VITALS: TEMP 98.1
== END 2018-02-22 16:20 | disposition home or self-care (01) ==
LOC: EC 10:11
DX: R19.7 Diarrhea, unspecified (principal); R11.2 Nausea with vomiting, unspecified; R53.1 Weakness; G89.29 Other chronic pain; M54.9 Dorsalgia, unspecified; M79.10 Myalgia, unspecified site; I13.0 Hypertensive heart and chronic kidney disease with heart failure and stage 1 through stage 4 chronic kidney disease, or unspecified chronic kidney disease; N18.3 Chronic kidney disease, stage 3 (moderate); I50.9 Heart failure, unspecified; E11.22 Type 2 diabetes mellitus with diabetic chronic kidney disease; Z86.14 Personal history of Methicillin resistant Staphylococcus aureus infection; Z87.891 Personal history of nicotine dependence; Z99.2 Dependence on renal dialysis; Z79.4 Long term (current) use of insulin; Z79.899 Other long term (current) drug therapy; Z88.0 Allergy status to penicillin; Z88.8 Allergy status to other drugs, medicaments and biological substances; Z91.048 Other nonmedicinal substance allergy status
CPT/HCPCS: 36415; 80053; 82550; 82553; 82009; 83605; 83735; 84100; 84484; 85025; 85610; 85730; 74022; 99285; 96374; 96375; 96361 ×5; 96372; J2270; J0500; J2405

== ENCOUNTER → 2018-03-05 | Outpatient (CLI) | payer MEDICARE, OTHER ==
--- NOTE | 2018-03-05 11:19 | CT ---
"EXAMINATION TYPE: CT abdomen wo con DATE OF EXAM: 03/05/2018 COMPARISON: None HISTORY: Nausea, vomiting, decreased appetite and bowel changes CT DLP: 912.2 mGycm Automated exposure control for dose reduction was used. TECHNIQUE: Helical acquisition of images was performed from the lung bases through the top of iliac crest to include entire abdomen. CONTRAST: Performed without Oral Contrast and without IV contrast. FINDINGS: LUNG BASES: There is a partially visualized small layering right pleural effusion with associated rig ht basilar compressive atelectasis. Right lower lobe pulmonary bleb is also noted. Subpleural fat dep osition is seen along the left lower lobe. Dense mitral valvular calcifications are incidentally note d. LIVER/GB: Unremarkable unenhanced morphology however the most cranial aspect of the liver is not enla rged given [id number] and right hemidiaphragm elevation. The gallbladder is either significantly c ontracted or surgically absent, more likely. PANCREAS: Pancreatic parenchymal atrophy is moderate. SPLEEN: No significant abnormality is seen. ADRENALS: There is a slightly heterogenous adrenal gland mass measuring 3.5 x 3.5 cm that does not me et criteria for a benign adrenal gland adenoma. KIDNEYS: There is nonspecific bilateral perinephric fat stranding without hydronephrosis or nephrolit hiasis. BOWEL: Recommend is not imaged given [id number]. Numerous sigmoid diverticula are seen with very s ubtle long segment inflammatory fat stranding. No pericolonic abscesses identified. There is a modera te amount retained right hemicolonic stool. No dilated large or small bowel. Scattered colonic divert icula are also noted within the descending colon without inflammatory fat stranding. LYMPH NODES: No greater than 1 cm short axis lymph nodes noted within the abdomen or pelvis. OSSEOUS STRUCTURES: Nonspecific sclerotic subcentimeter foci are scattered within the pelvis. Modera te multilevel degenerative changes of the thoracolumbar spine are seen. FREE AIR: No free air is visualized. OTHER: There is postsurgical change of the ventral abdominal wall. IMPRESSION: 1. ACUTE UNCOMPLICATED SIGMOID DIVERTICULOSIS. GIVEN THE BELOW DESCRIBED ADRENAL GLAND MASS THE POSSI BILITY OF UNDERLYING COLONIC NEOPLASM IS NOT EXCLUDED AND COLONOSCOPY IS RECOMMENDED AFTER RESOLUTION OF SYMPTOMS. 2. SLIGHTLY HETEROGENOUS RIGHT ADRENAL GLAND MASS MEASURING 3.5 CM THAT IS NOT COMPATIBLE WITH A GILES GN ADRENAL ADENOMA TODAY'S EXAMINATION AND REQUIRES FURTHER EVALUATION WITH THREE-PHASE ENHANCED CT A BDOMEN (ADRENAL MASS PROTOCOL) FOR FURTHER CHARACTERIZATION. 3. PARTIAL VISUALIZATION OF A SMALL LAYERING RIGHT PLEURAL EFFUSION. 4. RIGHT HEMIDIAPHRAGM ELEVATION POSSIBLY ON THE BASIS OF VOLUME LOSS FROM ATELECTASIS. A [place] level critical message alert has been initiated for Dav Roldan DO via the [employer] 60 | Critical Results System on 03/05/2018 11:16 AM. This message alert has been sent to Dav cross DO via the preferences provided by the clinician for the receipt of Radiology Critical Findings. Message ID [id number]."
== END | disposition home or self-care (01) ==
LOC: RADCTMAIN 09:49
PROVIDERS: ATTEND Family Medicine
DX: K57.30 Diverticulosis of large intestine without perforation or abscess without bleeding (principal); E27.9 Disorder of adrenal gland, unspecified
CPT/HCPCS: 74150

== ENCOUNTER 2018-03-09 08:52 | Inpatient (IN) | payer MEDICARE, OTHER ==
[2018-03-09] MEDS ORDERED: SODIUM CHLORIDE 0.9% 1,000 ML IV STA (09:15)
[2018-03-09] MEDS ORDERED: ONDANSETRON 4 MG/2 ML VIAL IVP STA (09:22)
--- NOTE | 2018-03-09 09:22 | ED ---
General Adult HPI - General Chief complaint: Nausea/Vomiting/Diarrhea Stated complaint: Nausea, vomiting Time Seen by Provider: 03/09/18 09:05 Source: patient, EMS, RN notes reviewed, old records reviewed Mode of arrival: EMS Limitations: no limitations - History of Present Illness Initial comments: Patient 67-year-old female presenting to the emergency room today with chief complaint of increased nausea vomiting over the past week. Patient does admit that she did have an outpatient CT performed. Patient is currently being treated for diverticulitis. Patient does admit that she's been on antibiotics at home. She states she's had a difficult time keeping them down. She does admit that last night her vomiting increased. She states the abdominal pain has been same over the last week. Patient denies any other complaints or symptoms at this time. Patient denies any recent fever, chills, shortness of breath, chest pain, back pain, numbness or tingling, headaches or visual changes , or any other complaints. - Related Data Home Medications Medication Instructions Recorded Confirmed Amino Acids/Protein Hydrolys 30 ml PO BID 02/22/18 03/09/18 [Pro-Stat Supplement] Pantoprazole [Protonix] 40 mg PO DAILY 02/22/18 03/09/18 Levofloxacin [Levaquin] 250 mg PO DAILY 03/09/18 03/09/18 Metoprolol Tartrate [Lopressor] 25 mg PO BID 03/09/18 03/09/18 metroNIDAZOLE [Flagyl] 500 mg PO TID 03/09/18 03/09/18 Previous Rx's Medication Instructions Recorded Aspirin EC [Ecotrin Low Dose] 81 mg PO DAILY@1700 #30 tablet. 11/12/17 Heparin Sodium,Porcine [Heparin 5,000 unit SQ Q8HR #90 vial 11/12/17 Sodium] Allergies Allergy/AdvReac Type Severity Reaction Status Date / Time Penicillins Allergy Severe Rash/Hives Verified 03/09/18 12:01 simvastatin [From Zocor] AdvReac Severe Unknown Verified 03/09/18 12:01 pregabalin [From Lyrica] AdvReac Unknown Verified 03/09/18 12:01 tide laundry detergent Allergy Itching Uncoded 03/09/18 09:00 Review of Systems ROS Statement: Those systems with pertinent positive or pertinent negative responses have been documented in the HPI. ROS Other: All systems not noted in ROS Statement are negative. Past Medical History Past Medical History: Heart Failure, Diabetes Mellitus, Hyperlipidemia, Hypertension, Osteoarthritis (OA), Renal Disease, Skin Disorder Additional Past Medical History / Comment(s): Cellutitus right leg, ringing in bilateral ears. 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,CATARACTS BILAT EYES Past Anesthesia/Blood Transfusion Reactions: No Reported Reaction Additional Past Anesthesia/Blood Transfusion Reaction / Comment(s): clausterphobia Past Psychological History: No Psychological Hx Reported Smoking Status: Former smoker Past Alcohol Use History: None Reported Past Drug Use History: None Reported - Past Family History Father Additional Family Medical History / Comment(s): ALCOHOLIC Mother Family Medical History: Cancer, CVA/TIA, Diabetes Mellitus, Myocardial Infarction ([place]) Additional Family Medical History / Comment(s): COLON Brother(s) Additional Family Medical History / Comment(s): DRUG DEPENDENCY General Exam - General Exam Comments Initial Comments: General: The patient is awake and alert, in no distress Eye: There is normal conjunctiva bilaterally. No signs of icterus. Neck: The neck is supple, there is no tenderness or JVD. Cardiovascular: There is a regular rate and rhythm. No murmur, rub or gallop is appreciated. Respiratory: Lungs are clear to auscultation, respirations are non-labored, breath sounds are equal. No wheezes, stridor, rales, or rhonchi. Gastrointestinal: Abdomen soft on palpation. Patient does have tenderness both left and right lower quadrant. No rebound, guarding or CVA tenderness. Musculoskeletal: Normal ROM, no tenderness. Strength 5/5. Sensation intact. Pulses equal bilaterally 2+. Neurological: A&O x 3. CN II-XII intact, There are no obvious motor or sensory deficits. Coordination appears grossly intact. Speech is normal. Skin: Skin is warm and dry and no rashes or lesions are noted. Psychiatric: Cooperative, appropriate mood & affect, normal judgment. Limitations: no limitations Course Vital Signs 03/09/18 03/09/18 03/09/18 08:57 11:01 12:07 Temperature 98.7 F Pulse Rate 101 H 110 H 99 Respiratory 20 20 20 Rate Blood Pressure 179/79 166/90 167/78 O2 Sat by Pulse 98 99 Oximetry Medical Decision Making - Medical Decision Making Patient's labs reviewed and shows similar findings to previous. No elevated white count today. No fever. Patient doing well. Did have a recent CT of the abdomen and pelvis which showed an acute uncomplicated sigmoid diverticulitis. Adrenal gland mass was also seen. Measures 3.5 cm. Patient was treated outpatient on oral antibiotics has had increased nausea vomiting total time keeping down her medications. Patient will be admitted she's been started on IV antibiotics of Levaquin and Flagyl. - Lab Data Result diagrams: 03/09/18 09:50 03/09/18 09:50 Lab Results 03/09/18 03/09/18 03/09/18 Range/Units 09:50 09:50 09:50 WBC 5.0 (3.8-10.6) k/uL RBC 3.91 (3.80-5.40) m/uL Hgb 10.9 L (11.4-16.0) gm/dL Hct 33.8 L (34.0-46.0) % MCV 86.4 (80.0-100.0) fL MCH 27.9 (25.0-35.0) pg MCHC 32.3 (31.0-37.0) g/dL RDW 14.1 (11.5-15.5) % Plt Count 142 L (150-450) k/uL Neutrophils % 93 % Lymphocytes % 3 % Monocytes % 3 % Eosinophils % 1 % Basophils % 0 % Neutrophils # 4.6 (1.3-7.7) k/uL Lymphocytes # 0.1 L (1.0-4.8) k/uL Monocytes # 0.2 (0-1.0) k/uL Eosinophils # 0.1 (0-0.7) k/uL Basophils # 0.0 (0-0.2) k/uL PT 11.6 (9.0-12.0) sec INR 1.1 (<1.2) APTT 25.6 (22.0-30.0) sec Sodium 140 (137-145) mmol/L Potassium 4.3 (3.5-5.1) mmol/L Chloride 110 H (98-107) mmol/L Carbon Dioxide 23 (22-30) mmol/L Anion Gap 7 mmol/L BUN 28 H (7-17) mg/dL Creatinine 2.13 H (0.52-1.04) mg/dL Est GFR (CKD-EPI)AfAm 27 (>60 ml/min/1.73 sqM) Est GFR (CKD-EPI)NonAf 24 (>60 ml/min/1.73 sqM) Glucose 128 H (74-99) mg/dL Plasma Lactic Acid Jamar (0.7-2.0) mmol/L Calcium 9.3 (8.4-10.2) mg/dL Total Bilirubin 0.4 (0.2-1.3) mg/dL AST 10 L (14-36) U/L ALT 17 (9-52) U/L Alkaline Phosphatase 67 (38-126) U/L Total Protein 5.6 L (6.3-8.2) g/dL Albumin 2.6 L (3.5-5.0) g/dL Amylase <30 L (30-110) U/L Lipase <10 L (23-300) U/L Acetone, Qual Negative (Negative) 03/09/18 Range/Units 09:50 WBC (3.8-10.6) k/uL RBC (3.80-5.40) m/uL Hgb (11.4-16.0) gm/dL Hct (34.0-46.0) % MCV (80.0-100.0) fL MCH (25.0-35.0) pg MCHC (31.0-37.0) g/dL RDW (11.5-15.5) % Plt Count (150-450) k/uL Neutrophils % % Lymphocytes % % Monocytes % % Eosinophils % % Basophils % % Neutrophils # (1.3-7.7) k/uL Lymphocytes # (1.0-4.8) k/uL Monocytes # (0-1.0) k/uL Eosinophils # (0-0.7) k/uL Basophils # (0-0.2) k/uL PT (9.0-12.0) sec INR (<1.2) APTT (22.0-30.0) sec Sodium (137-145) mmol/L Potassium (3.5-5.1) mmol/L Chloride (98-107) mmol/L Carbon Dioxide (22-30) mmol/L Anion Gap mmol/L BUN (7-17) mg/dL Creatinine (0.52-1.04) mg/dL Est GFR (CKD-EPI)AfAm (>60 ml/min/1.73 sqM) Est GFR (CKD-EPI)NonAf (>60 ml/min/1.73 sqM) Glucose (74-99) mg/dL Plasma Lactic Acid Jamar 1.1 (0.7-2.0) mmol/L Calcium (8.4-10.2) mg/dL Total Bilirubin (0.2-1.3) mg/dL AST (14-36) U/L ALT (9-52) U/L Alkaline Phosphatase (38-126) U/L Total Protein (6.3-8.2) g/dL Albumin (3.5-5.0) g/dL Amylase (30-110) U/L Lipase (23-300) U/L Acetone, Qual (Negative) Disposition Clinical Impression: Diverticulitis Disposition: ADMITTED IP TO THIS [facility] Condition: Good Is patient prescribed a controlled substance at d/c from ED?: No Referrals: Dav Roldan DO [Primary Care Provider] - 1-2 days Time of Disposition: 12:22
[2018-03-09 10:09] LABS: Basophils % (A) 0 %; Eosinophils # (A) 0.1 k/uL (0-0.7); Eosinophils % (A) 1 %; HCT 33.8 % (34.0-46.0); HGB 10.9 gm/dL (11.4-16.0); Lymphocytes # (A) 0.1 k/uL (1.0-4.8); Lymphocytes % (A) 3 %; MCH 27.9 pg (25.0-35.0); MCHC 32.3 g/dL (31.0-37.0); MCV 86.4 fL (80.0-100.0); Mean Platelet Volume 7.1; Monocytes # (A) 0.2 k/uL (0-1.0); Monocytes % (A) 3 %; Neutrophils # (A) 4.6 k/uL (1.3-7.7); Neutrophils % (A) 93 %; Platelet Count 142 k/uL (150-450); RBC 3.91 m/uL (3.80-5.40); RDW 14.1 % (11.5-15.5)
[2018-03-09 10:14] LABS: INR 1.1 (<1.2); Partial Thromboplastin Time 25.6 sec (22.0-30.0); Prothrombin Time 11.6 sec (9.0-12.0)
[2018-03-09 10:18] LABS: ALT 17 U/L (9-52); AST 10 U/L (14-36); Albumin 2.6 g/dL (3.5-5.0); Alkaline Phosphatase 67 U/L (38-126); Amylase <30 U/L (30-110); Anion Gap 7 mmol/L; Blood Urea Nitrogen 28 mg/dL (7-17); Calcium 9.3 mg/dL (8.4-10.2); Carbon Dioxide 23 mmol/L (22-30); Chloride 110 mmol/L (98-107); Glucose 128 mg/dL (74-99); Lipase <10 U/L (23-300); Potassium 4.3 mmol/L (3.5-5.1); Sodium 140 mmol/L (137-145); Total Bilirubin 0.4 mg/dL (0.2-1.3); Total Protein 5.6 g/dL (6.3-8.2)
[2018-03-09] MEDS ORDERED: metroNIDAZOLE-NS PMX 500 MG in SALINE 1 100ML.BAG IVPB STA (10:18)
[2018-03-09] MEDS ORDERED: LEVOFLOXACIN 500MG-D5W PMX 500 MG in DEXTROSE/WATER 1 100ML.BAG IVPB STA (10:18)
[2018-03-09] MEDS ORDERED: LEVOFLOXACIN 500MG-D5W PMX 500 MG in DEXTROSE/WATER 1 100ML.BAG IVPB SCH ×2 (10:30→12:49)
--- NOTE | 2018-03-09 11:38 | XR ---
EXAMINATION TYPE: XR KUB DATE OF EXAM: 03/09/2018 11:19 AM CLINICAL HISTORY: Nausea and vomiting for one week TECHNIQUE: 3 supine KUB images of the abdomen are obtained. COMPARISON: CT abdomen from 4 days ago.. FINDINGS: There is persistent elevated right hemidiaphragm. There are overlying right-sided subcutane ous sutures redemonstrated. Gas is seen in nondistended stomach as well as scattered small and large bowel loops. Exam suboptimal study due to patient's large body habitus. No suspicious calcifications are seen. Multilevel spurring and spine is present. There is partial visualization of dialysis cathet er within right atrium. IMPRESSION: Overall nonspecific but felt to be nonobstructive bowel gas pattern remains present.
[2018-03-09 12:20] LABS: Appearance,Urine Cloudy (Clear); Bacteria,Urine Many /hpf; Bilirubin,Urine Negative (Negative); Blood,Urine Moderate (Negative); Color,Urine Yellow; Glucose,Urine (UA) Trace (Negative); Hyaline Casts,Urine 16 /lpf (0-2); Ketones,Urine Negative (Negative); Leukocyte Esterase,Urine Trace (Negative); Mucus,Urine Rare /hpf; Nitrite,Urine Negative (Negative); PH, Urine 5.5 (5.0-8.0); Protein,Urine 3+ (Negative); RBC,Urine 5 /hpf (0-5); Specific Gravity,Urine 1.016 (1.001-1.035); Squamous Epithelial Cell,Urine 3 /hpf (0-4); Urobilinogen,Urine <2.0 mg/dL (<2.0)
[2018-03-09] MEDS ORDERED: SODIUM CHLORIDE 0.9% 1,000 ML IV ONE (12:23)
[2018-03-09] MEDS ORDERED: NALOXONE 0.4 MG/ML 1 ML VIAL IV PRN (12:23)
[2018-03-09] MEDS ORDERED: ACETAMINOPHEN TAB 325 MG TAB PO PRN (12:23)
[2018-03-09] MEDS: ONDANSETRON 4 MG/2 ML VIAL IVP PRN ×2 (13:51→23:49)
[2018-03-09] MEDS: MORPHINE SULFATE 4 MG/ML SYRINGE IV PRN ×2 (13:52→18:07)
[2018-03-09] MEDS: metroNIDAZOLE-NS PMX 500 MG in SALINE 1 100ML.BAG IVPB SCH (20:11)
[2018-03-09 22:17] LABS: Glucose,Whole Blood 97 mg/dL (75-99)
[2018-03-09] MEDS: HEPARIN SODIUM,PORCINE 5,000 UNIT/ML 1 ML VIAL SQ SCH (23:44)
[2018-03-09] MEDS: METOPROLOL TARTRATE 25 MG TAB PO SCH (23:44)
[2018-03-09] MEDS: SODIUM CHLORIDE 0.9% 1,000 ML IV SCH (23:45)
--- NOTE | 2018-03-10 00:27 | P.HPIM ---
History of Present Illness H&P Date: 03/09/18 Chief Complaint: nausea vomiting, abd pain. this patient care was transferred to [facility] on @ [address] Kenny bazzi. as patient sees a PCP who prefers admissions to our group. 67-year-old female with history of diabetes and CK D. [facility] a [facility] since her last admission in October where she had prolonged hospital course when she remained in the ICU due to severity of illness she was later discharged to specialty care which she got a trach inserted and then from there she was sent to rehab. She reports that over the past week she was having dry heaves and abdominal pain described it as colicky left-sided abdominal pain comes and goes sometimes 10 out of 10 in severity associated with dry heaves and at times with diarrhea which has stopped 2 days ago. She is not sure if there is any bloody bowel movements or any melena. She also had dry heaves and sometimes vomiting of stomach fluids and contents. She has not and eating well for the past week. She also reported significant weight loss over the past 6 months due to debility and poor functional status. At the [facility] she was started on oral antibiotics due to a positive CAT scan of the abdomen that suggested sigmoid diverticulitis. However she didn't tolerate the medications well and without much improvement in her clinical status the care team decided to transfer her to our hospital for further evaluation and treatment. Patient reports A pressure ulcer over her sacrum for which a wound VAC was applied at the [facility] facility that they didn't send with the patient. Otherwise patient denies any ongoing hemodialysis she is waiting to have follow- up appointment to remove the right permacath, her kidney doctor told her that her numbers has been improving. Otherwise denies any chest pain or trouble breathing denies any coughing denies any changes in her urinary habits. Currently patient laying comfortable in bed no acute distress, pain is well controlled Review of Systems Pertinent positives as noted in HPI. All other systems were reviewed and are negative Past Medical History Past Medical History: Heart Failure, Diabetes Mellitus, Hyperlipidemia, Hypertension, Osteoarthritis (OA), Renal Disease, Skin Disorder Additional Past Medical History / Comment(s): Cellulilus right leg, STAGE lll KINDNEY DISEASE respiratory failure ended with a trach ventilated pressure ulcer on coccyx/right buttock with wound vac treatment, arrived here from er with tubing to wound vac but no machine History of Any Multi-Drug Resistant Organisms: MRSA Date of last positivie culture/infection: 09/09/17 MDRO Source:: FOOT Past Surgical History: Appendectomy, Cholecystectomy Additional Past Surgical History / Comment(s): L OVARIAN CYST, 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,CATARACTS BILAT EYES Past Anesthesia/Blood Transfusion Reactions: No Reported Reaction Additional Past Anesthesia/Blood Transfusion Reaction / Comment(s): clausterphobia Past Psychological History: No Psychological Hx Reported Smoking Status: Former smoker Past Alcohol Use History: None Reported Additional Past Alcohol Use History / Comment(s): started smoking age 21(1971) and quit 1991, smoked 1 ppd Past Drug Use History: None Reported - Past Family History Father Additional Family Medical History / Comment(s): ALCOHOLIC Mother Family Medical History: Cancer, CVA/TIA, Diabetes Mellitus, Myocardial Infarction ([place]) Additional Family Medical History / Comment(s): COLON Brother(s) Additional Family Medical History / Comment(s): DRUG DEPENDENCY Medications and Allergies Home Medications Medication Instructions Recorded Confirmed Type Aspirin EC [Ecotrin Low Dose] 81 mg PO DAILY@1700 #30 tablet. 11/12/17 Rx Heparin Sodium,Porcine [Heparin 5,000 unit SQ Q8HR #90 vial 11/12/17 03/09/18 Rx Sodium] Amino Acids/Protein Hydrolys 30 ml PO BID 02/22/18 03/09/18 History [Pro-Stat Supplement] Pantoprazole [Protonix] 40 mg PO DAILY 02/22/18 03/09/18 History Levofloxacin [Levaquin] 250 mg PO DAILY 03/09/18 03/09/18 History Metoprolol Tartrate [Lopressor] 25 mg PO BID 03/09/18 03/09/18 History metroNIDAZOLE [Flagyl] 500 mg PO TID 03/09/18 03/09/18 History Allergies Allergy/AdvReac Type Severity Reaction Status Date / Time Penicillins Allergy Severe Rash/Hives Verified 03/09/18 12:01 simvastatin [From Zocor] AdvReac Severe Unknown Verified 03/09/18 12:01 pregabalin [From Lyrica] AdvReac Unknown Verified 03/09/18 12:01 tide laundry detergent Allergy Itching Uncoded 03/09/18 09:00 Physical Exam Vitals: Vital Signs Temp Pulse Resp BP Pulse Ox 03/09/18 18:12 100.8 F H 104 H 20 153/86 99 03/09/18 16:36 100 20 166/78 98 03/09/18 13:07 110 H 20 172/90 96 03/09/18 12:07 99 20 167/78 99 03/09/18 11:01 110 H 20 166/90 98 03/09/18 08:57 98.7 F 101 H 20 179/79 Intake and Output 03/09/18 03/09/18 03/10/18 14:59 22:59 06:59 Other: Weight 95.254 kg 98 kg Constitutional: No acute distress, conversant, pleasant Eyes: Anicteric sclerae, moist conjunctiva, no lid-lag Pupils equal round reactive to light ENMT: NC/AT Oropharynx clear, no erythema, exudates Neck: Supple, FROM, no masses, or JVD No carotid bruits No thyromegaly Lungs: Clear to auscultation Clear to percussion Normal respiratory effort, no accessory muscle use Cardiovascular: Heart regular in rate and rhythm, No murmurs, gallops, or rubs No peripheral edema Abdominal: Soft Slight discomfort to deep palpation of the left flank area. no guarding, rebound or rigidity Abdomen moving with respiration Normoactive bowel sounds No hepatomegaly, No splenomegaly No palpable mass No abdominal wall hernia noted Skin: 5 x 5 pressure ulcer stage III over the coccyx, with slight induration and erythema surrounding the ulcer. Brownish discharge No subcutaneous nodules Chronic skin changes over bilateral lower extremities to dermatosclerosis Right permacath in the chest, no tenderness to palpation, no induration or erythema surrounding permacath insertion site no drainage Extremities: No digital cyanosis No clubbing Pedal pulses intact and symmetrical Radial pulses intact and symmetrical No calf tenderness Psychiatric: Alert and oriented to person, place and time Appropriate affect fair judgment Neuro Muscles Strength 3-4/5 in all 4 extremities Sensation to light touch grossly present throughout Cranial nerves II-XII grossly intact No focal sensory deficits Lymphatics: no palpable cervical or supraclavicular , or inguinal lymph nodes Results CBC & Chem 7: 03/09/18 09:50 03/09/18 09:50 Labs: Abnormal Lab Results - Last 24 Hours (Table) 12/03/09/18 03/09/18 Range/Units 09:50 09:50 12:05 Hgb 10.9 L (11.4-16.0) gm/dL Hct 33.8 L (34.0-46.0) % Plt Count 142 L (150-450) k/uL Lymphocytes # 0.1 L (1.0-4.8) k/uL Chloride 110 H (98-107) mmol/L BUN 28 H (7-17) mg/dL Creatinine 2.13 H (0.52-1.04) mg/dL Glucose 128 H (74-99) mg/dL AST 10 L (14-36) U/L Total Protein 5.6 L (6.3-8.2) g/dL Albumin 2.6 L (3.5-5.0) g/dL Amylase <30 L (30-110) U/L Lipase <10 L (23-300) U/L Urine Appearance Cloudy H (Clear) Urine Protein 3+ H (Negative) Urine Glucose (UA) Trace H (Negative) Urine Blood Moderate H (Negative) Ur Leukocyte Esterase Trace H (Negative) Urine Bacteria Many H (None) /hpf Hyaline Casts 16 H (0-2) /lpf Urine Mucus Rare H (None) /hpf Thrombosis Risk Factor Assmnt - Choose All That Apply Any of the Below Risk Factors Present?: Yes Each Factor Represents 1 point: Medical pt on bed rest, Obesity (BMI >25), Swollen legs (current) Other Risk Factors: Yes Each Risk Factor Represents 2 Points: Age 61-74 years, Patient confined to bed Other congenital or acquired thrombophilia - If yes, enter type in comment: No Thrombosis Risk Factor Assessment Total Risk Factor Score: 7 Thrombosis Risk Factor Assessment Level: High Risk Assessment and Plan Assessment: 67-year-old female with history of diabetes and CK D, admitted as an inpatient with anticipated length of stay more than 40 hours due to failed outpatient therapy of acute diverticulitis proved by clinical symptoms and CAT scan and the [facility]. CAT scan was not available for revision. But reported to have left sigmoidal diverticulitis. She failed trial of oral antibiotics. Due to intractable nausea and vomiting. Patient also has history of CK D stage III with a right permacath that she has not been using or utilizing. She also has pressure ulcer stage III with wound VAC therapy at the [facility] facility that she did not bring with her. Patient was started on IV antibiotics and blood cultures were drawn Plan: Acute diverticulitis failed outpatient therapy Intractable nausea vomiting Symptomatic control Nothing by mouth Blood cultures taken IV antibiotics with levofloxacin and Flagyl IV fluid hydration Stage III pressure ulcer over the coccyx present on admission Therapy with wound VAC at [facility] facility Consult ID to arrange for wound VAC therapy add Vancomycin for therapy Wound culture sent Await further ID Recs Diabetes mellitus Insulin sliding scale Hypertension Continue home medications with metoprolol Chronic anemia of CK D Continue to monitor Patient did not report any evidence of GI bleeding History of CHF with most recent echo showing preserved left ventricular ejection fraction, currently compensated Continue with metoprolol Chronic kidney disease stage III currently stable Nephro consult to evaluate and confirm recommendations for removal of right permacath DVT prophylaxis Heparin subcu 3 times a day Preformed a thorough record review from recent hospitalization as summarized in HPI were patient had a prolonged hospitalization course in ICU admission back in October [facility] Surrogate decision-maker: Patient has a guardian however she wants to assign her daughter as a surrogate decision-maker CODE STATUS: Full code Discussed with: Patient, ER, RN Anticipated discharge: 48-[address]: Subacute rehab A total of 60 minutes was spent on the care of this complex patient more than 50 % of the time was spent in counseling and care coordination.
[2018-03-10] MEDS ORDERED: VANCOMYCIN IV PER PHARMACY 1 EACH MISC MISCELLANE PRN ×2 (00:30→17:37)
[2018-03-10] MEDS ORDERED: VANCOMYCIN 1,500 MG in SODIUM CHLORIDE 0.9% 250 ML IVPB SCH (00:45)
[2018-03-10] MEDS: metroNIDAZOLE-NS PMX 500 MG in SALINE 1 100ML.BAG IVPB SCH ×3 (04:06→20:14)
[2018-03-10 07:06] LABS: Glucose,Whole Blood 79 mg/dL (75-99)
[2018-03-10] MEDS: INSULIN ASPART 100 UNIT/ML 1 ML 10 ML VIAL SQ SCH ×4 (07:14→20:17)
[2018-03-10 08:04] LABS: Basophils % (A) 1 %; Eosinophils # (A) 0.1 k/uL (0-0.7); Eosinophils % (A) 2 %; HCT 30.1 % (34.0-46.0); HGB 9.6 gm/dL (11.4-16.0); Hypochromasia Slight; Lymphocytes # (A) 0.3 k/uL (1.0-4.8); Lymphocytes % (A) 8 %; MCH 28.1 pg (25.0-35.0); MCHC 32.1 g/dL (31.0-37.0); MCV 87.6 fL (80.0-100.0); Mean Platelet Volume 7.1; Monocytes # (A) 0.1 k/uL (0-1.0); Monocytes % (A) 5 %; Neutrophils # (A) 2.6 k/uL (1.3-7.7); Neutrophils % (A) 84 %; Platelet Count 126 k/uL (150-450); RBC 3.43 m/uL (3.80-5.40); RDW 13.8 % (11.5-15.5); WBC 3.2 k/uL (3.8-10.6)
[2018-03-10 08:15] LABS: Calcium 8.5 mg/dL (8.4-10.2); Potassium 4.1 mmol/L (3.5-5.1); Total Bilirubin 0.2 mg/dL (0.2-1.3); Total Protein 4.7 g/dL (6.3-8.2)
[2018-03-10] MEDS: SODIUM CHLORIDE 0.9% 1,000 ML IV SCH ×3 (08:26→20:20)
[2018-03-10] MEDS: HEPARIN SODIUM,PORCINE 5,000 UNIT/ML 1 ML VIAL SQ SCH ×3 (08:26→23:51)
[2018-03-10] MEDS: PANTOPRAZOLE 40 MG TABLET PO SCH (08:27)
[2018-03-10] MEDS: METOPROLOL TARTRATE 25 MG TAB PO SCH ×2 (08:27→20:20)
[2018-03-10] MEDS: ONDANSETRON 4 MG/2 ML VIAL IVP PRN ×2 (08:30→16:18)
--- NOTE | 2018-03-10 11:42 | P.PN ---
Subjective Progress Note Date: 03/10/18 Principal diagnosis: diverticulitis Patient seen and examined. No acute events overnight. Patient abdominal pain. She denies any nausea or vomiting. She denies any chest pain, shortness of breath or palpitations. Complains of pain at the site of ulcer, will control her medications. Requesting food. Wants to go to [facility]. Objective - Vital Signs Vital signs: Vital Signs Temp 98.9 F 03/10/18 06:31 Pulse 76 03/10/18 08:00 Resp 18 03/10/18 08:00 BP 150/82 03/10/18 06:31 Pulse Ox 100 03/10/18 06:31 Intake & Output 03/09/18 03/10/18 03/10/18 18:59 06:59 18:59 Intake Total 1600 Output Total 50 Balance 1550 Weight 95.254 kg 98.5 kg 98.5 kg Intake: Intake, IV Titration 1600 Amount Sodium Chloride 0.9% 1, 400 000 ml @ 100 mls/hr IV . Q10H [facility] Rx#:[id number] Sodium Chloride 0.9% 1, 750 000 ml @ 150 mls/hr IV . Q6H40M [facility] Rx#:[id number] Vancomycin 1,500 mg In 250 Sodium Chloride 0.9% 250 ml @ 125 mls/hr IVPB Q48H [facility] Rx#:[id number] metroNIDAZOLE-NS PMX 500 200 mg In Saline 1 100ml.bag @ 100 mls/hr IVPB Q8H [facility] Rx#:[id number] Output: Emesis 50 Other: Voiding Method Diaper Diaper Incontinent Incontinent # Voids 1 - Exam General: [non toxic], [no distress], [appears at stated age] Derm: [warm], [dry] Head: [atraumatic], [normocephalic], [symmetric] Eyes: [EOMI], [no lid lag], [anicteric sclera] Mouth: [no lip lesion], [mucus membranes moist] Cardiovascular: [S1S2 reg], [no murmur], [positive posterior tibial pulse bilateral], Lungs: [CTA bilateral], [no rhonchi, no rales] , [no accessory muscle use] Abdominal: [soft], [ nontender to palpation], [no guarding], [no appreciable organomegaly] Ext: [no gross muscle atrophy], [no edema], [contractures lower extremities.] Neuro: [no focal neuro deficits] Psych: [Alert], [oriented], [appropriate affect] - Labs CBC & Chem 7: 03/10/18 07:22 03/10/18 07:22 Labs: Abnormal Lab Results - Last 24 Hours (Table) 03/09/18 03/10/18 03/10/18 Range/Units 12:05 07:22 07:22 WBC 3.2 L (3.8-10.6) k/uL RBC 3.43 L (3.80-5.40) m/uL Hgb 9.6 L (11.4-16.0) gm/dL Hct 30.1 L (34.0-46.0) % Plt Count 126 L (150-450) k/uL Lymphocytes # 0.3 L (1.0-4.8) k/uL Chloride 114 H (98-107) mmol/L BUN 27 H (7-17) mg/dL Creatinine 2.08 H (0.52-1.04) mg/dL Total Protein 4.7 L (6.3-8.2) g/dL Albumin 2.0 L (3.5-5.0) g/dL Urine Appearance Cloudy H (Clear) Urine Protein 3+ H (Negative) Urine Glucose (UA) Trace H (Negative) Urine Blood Moderate H (Negative) Ur Leukocyte Esterase Trace H (Negative) Urine Bacteria Many H (None) /hpf Hyaline Casts 16 H (0-2) /lpf Urine Mucus Rare H (None) /hpf Microbiology - Last 24 Hours (Table) 03/09/18 09:50 Blood Culture Gram Stain - Preliminary Blood 03/09/18 09:50 Blood Culture - Final Blood Assessment and Plan Assessment: Assessment and Plan 1. Diverticulitis: Patient is afebrile with no leukocytosis. Lactic acid is within normal limits. Seen on CT scan 03/05/2018, failed outpatient PO therapy. KUB is within normal limits. Amylase and Lipase within normal limits. UA shows trace LE but patient is asymptomatic. Tylenol for fever. IV Antibiotics with Levofloxacin 500 mg IV QD and Metronidazole 500 mg IV TID. Pain control with Morphine 4 mg IV Q4H. Zofran 4 mg IV TID PRN for N/V. Protonix 40 mg PO QAM. Continue NS at 100 cc/h. CLD and advance diet. FU BCx, ID consult 2. Stage III Pressure ulcer: Continue Levofloxacin, Metronidazole and Vancomycin 1750 mg IV QD. Albumin 2.0. Will add ensure TID to CLD. Local wound care. Frequent turning by nurses. FU Dietitian, ID consult 3. Diabetes Mellitus: POC glucose 84. ISS. Hypoglycemic precautions. Regular accuchecks. 4. Hypertension: BP 150/82. Continue Metoprolol 25 mg PO BID. Continue ASA 81 mg PO QD. Monitor vitals, adjust medication as necessary. 5. CKD: Cr 2.08 greatly improved from previous admissions. Continue NS at 100 cc /h. Avoid nephrotoxins. BMP daily as patient is on Vancomycin. FU Nephrology regarding permacath 6. HFpEF: Echo 10/2017 shows EF 50-55% with LVH. Continue Metoprolol 25 mg PO BID. 7. Anemia: Hg 9.6 Hct 30.1 MCV 87.6 likely due to CKD. Daily CBC. 8. DVT/GI Prophylaxis: Heparin 5000 units TID. Patient being treated for Diverticulitis. Failed outpatient therapy. Continue IV Antibiotics. Will advance diet. Likely DC in 1-2 days.
[2018-03-10 12:09] LABS: Glucose,Whole Blood 82 mg/dL (75-99)
--- NOTE | 2018-03-10 12:54 | P.NPCON ---
History of Present Illness - Reason for Consult chronic renal failure - Chief Complaint Nausea and vomiting - History of Present Illness Admitted to the hospital with a month history of dry heaves nausea and vomiting. She has history of diverticulitis recently treated coming to the hospital with abdominal pain and bowel complaints. She has CK D stage IV baseline creatinine 1.8-2.1 MG per DL. She had computed tomography scan done as an outpatient unclear whether that was with contrast. When she presented to the hospital creatinine was slightly above the baseline 2.3 MG per DL improved to 2.08 today with hydration. Feels better today. Currently on antibiotics. Review of Systems Constitutional: Reports as per HPI Past Medical History Past Medical History: Heart Failure, Diabetes Mellitus, Hyperlipidemia, Hypertension, Osteoarthritis (OA), Renal Disease, Skin Disorder Additional Past Medical History / Comment(s): Cellulilus right leg, STAGE lll KINDNEY DISEASE respiratory failure ended with a trach ventilated pressure ulcer on coccyx/right buttock with wound vac treatment, arrived here from er with tubing to wound vac but no machine History of Any Multi-Drug Resistant Organisms: MRSA Date of last positivie culture/infection: 09/09/17 MDRO Source:: FOOT Past Surgical History: Appendectomy, Cholecystectomy Additional Past Surgical History / Comment(s): L OVARIAN CYST, 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,CATARACTS BILAT EYES Past Anesthesia/Blood Transfusion Reactions: No Reported Reaction Additional Past Anesthesia/Blood Transfusion Reaction / Comment(s): clausterphobia Past Psychological History: No Psychological Hx Reported Smoking Status: Former smoker Past Alcohol Use History: None Reported Additional Past Alcohol Use History / Comment(s): started smoking age 21(1971) and quit 1991, smoked 1 ppd Past Drug Use History: None Reported - Past Family History Father Additional Family Medical History / Comment(s): ALCOHOLIC Mother Family Medical History: Cancer, CVA/TIA, Diabetes Mellitus, Myocardial Infarction (ID) Additional Family Medical History / Comment(s): COLON Brother(s) Additional Family Medical History / Comment(s): DRUG DEPENDENCY Medications and Allergies Home Medications Medication Instructions Recorded Confirmed Type Aspirin EC [Ecotrin Low Dose] 81 mg PO DAILY@1700 #30 tablet. 11/12/17 Rx Heparin Sodium,Porcine [Heparin 5,000 unit SQ Q8HR #90 vial 11/12/17 03/09/18 Rx Sodium] Amino Acids/Protein Hydrolys 30 ml PO BID 02/22/18 03/09/18 History [Pro-Stat Supplement] Pantoprazole [Protonix] 40 mg PO DAILY 02/22/18 03/09/18 History Levofloxacin [Levaquin] 250 mg PO DAILY 03/09/18 03/09/18 History Metoprolol Tartrate [Lopressor] 25 mg PO BID 03/09/18 03/09/18 History metroNIDAZOLE [Flagyl] 500 mg PO TID 03/09/18 03/09/18 History Allergies Allergy/AdvReac Type Severity Reaction Status Date / Time Penicillins Allergy Severe Rash/Hives Verified 03/09/18 12:01 simvastatin [From Zocor] AdvReac Severe Unknown Verified 03/09/18 12:01 pregabalin [From Lyrica] AdvReac Unknown Verified 03/09/18 12:01 tide laundry detergent Allergy Itching Uncoded 03/09/18 09:00 Physical Exam Vitals: Vital Signs Temp Pulse Pulse Resp BP BP Pulse Ox 03/10/18 12:44 98.3 F 78 17 178/72 100 03/10/18 08:00 76 18 03/10/18 06:31 98.9 F 76 18 150/82 100 03/09/18 23:00 98.1 F 83 16 134/77 99 03/09/18 18:12 100.8 F H 104 H 20 153/86 99 03/09/18 16:36 100 20 166/78 98 03/09/18 13:07 110 H 20 172/90 96 Intake and Output 03/09/18 03/10/18 03/10/18 22:59 06:59 14:59 Intake Total 500 1100 Output Total 50 Balance 500 1050 Intake: Intake, IV Titration 500 1100 Amount Sodium Chloride 0.9% 1, 400 000 ml @ 100 mls/hr IV . Q10H [facility] Rx#:[id number] Sodium Chloride 0.9% 1, 750 000 ml @ 150 mls/hr IV . Q6H40[facility] Rx#:[id number] Vancomycin 1,500 mg In 250 Sodium Chloride 0.9% 250 ml @ 125 mls/hr IVPB Q48H [facility] Rx#:[id number] metroNIDAZOLE-NS PMX 500 100 100 mg In Saline 1 100ml.bag @ 100 mls/hr IVPB Q8H [facility] Rx#:[id number] Output: Emesis 50 Other: Voiding Method Diaper Diaper Incontinent Incontinent # Voids 1 Weight 98 kg 98.5 kg 98.5 kg No acute distress S1-S2 heard Lungs clear Abdomen soft No edema Results - Lab Results Most recent lab results Calcium 8.5 mg/dL (8.4-10.2) 03/10/18 07:22 03/10/18 07:22 03/10/18 07:22 Assessment and Plan Assessment: #1 acute kidney injury secondary to prerenal process. #2 chronic kidney disease stage IV secondary to nephrosclerosis baseline creatinine 1.8-2.1 MG per DL. #3 suspected urinary tract infection with abnormal UA #4 hypertension with chronic kidney disease #5 anemia with chronic kidney disease Plan: #1 creatinine currently at baseline. IV fluids can be stopped once she is tolerating oral diet. #2 avoid nephrotoxic agents and hypotensive episodes #3 maintain Vanco trough levels less than 20. #4 labs in the morning
[2018-03-10] MEDS: MORPHINE SULFATE 4 MG/ML SYRINGE IV PRN ×2 (15:10→21:34)
[2018-03-10] MEDS: ASPIRIN 81 MG PO SCH (16:24)
[2018-03-10 17:14] LABS: Glucose,Whole Blood 84 mg/dL (75-99)
[2018-03-10 20:19] LABS: Glucose,Whole Blood 77 mg/dL (75-99)
[2018-03-11] MEDS: ONDANSETRON 4 MG/2 ML VIAL IVP PRN (03:10)
[2018-03-11] MEDS: MORPHINE SULFATE 4 MG/ML SYRINGE IV PRN ×3 (03:11→22:02)
[2018-03-11] MEDS: metroNIDAZOLE-NS PMX 500 MG in SALINE 1 100ML.BAG IVPB SCH ×3 (03:12→19:51)
[2018-03-11] MEDS: SODIUM CHLORIDE 0.9% 1,000 ML IV SCH ×6 (03:12→23:52)
[2018-03-11] MEDS ORDERED: VANCOMYCIN 1,750 MG in SODIUM CHLORIDE 0.9% 500 ML 500 ML IVPB SCH (06:00)
[2018-03-11 07:24] LABS: Glucose,Whole Blood 72 mg/dL (75-99)
[2018-03-11] MEDS: INSULIN ASPART 100 UNIT/ML 1 ML 10 ML VIAL SQ SCH ×4 (07:34→21:39)
[2018-03-11] MEDS: cefTRIAXone 2,000 MG in SODIUM CHLORIDE 0.9% 100 ML IVPB SCH (07:41)
[2018-03-11] MEDS: HEPARIN SODIUM,PORCINE 5,000 UNIT/ML 1 ML VIAL SQ SCH ×3 (07:42→23:51)
[2018-03-11] MEDS: METOPROLOL TARTRATE 25 MG TAB PO SCH ×2 (07:44→21:57)
[2018-03-11] MEDS: PANTOPRAZOLE 40 MG TABLET PO SCH (07:44)
[2018-03-11 08:35] LABS: Glucose,Whole Blood 76 mg/dL (75-99)
--- NOTE | 2018-03-11 09:27 | CONS ---
CONSULTATION DATE OF SERVICE: 03/10/2018 REASON FOR CONSULTATION: 1. Bacteremia. 2. Sacral wound. 3. Diverticulitis. HISTORY OF PRESENT ILLNESS: The patient is a 67-year-old female, currently a [facility] resident. She did have a CT of the abdomen completed on 03/06/2018 that did show evidence of acute diverticulitis. The patient apparently was started on Levaquin and Flagyl. However, the patient started having a problem with nausea and vomiting. For the last 2 days the patient says she was not able to keep anything down and did have multiple episodes of vomiting. The patient was complaining of pain to the lower abdominal area mostly on the left side. The pain is mostly dull aching to colicky, intensity about 4-5 out of 10 and no radiation with associated diarrhea. The patient did have multiple loose stools with no blood or mucus in it unable to keep anything down. The patient has been brought to the ER. The patient was evaluated by the ER physician. Patient did have a KUB which shows a nonspecific bowel gas pattern present. She was started on IV Levaquin and Flagyl, admitted to the hospital. The patient did have blood cultures drawn, which is coming positive with gram-positive cocci. Vancomycin was added. The patient does have a history of a renal failure during this and a prolonged hospital stay. At that time, the patient was started on dialysis through right subcutaneous perm catheter. However, the patient is currently not receiving any dialysis as the patient's kidney function seems to be improving. The patient also during her previous prolonged hospital stay and developed a sacral pressure ulcer, currently being treated with a wound VAC. The patient denies any pain to the sacral wound area or drainage. REVIEW OF SYSTEMS: Positive for weakness and she did have a fever of 100.8 on presentation. Eyes: No complaint. ENT no complaint. Respiratory no complaint. Cardiovascular no complaint. Genitourinary no complaint. Gastrointestinal as per HPI. Musculoskeletal and integumentary as per HPI. Psychological: No complaint. Endocrine: No complaint. Neurologic no complaint. PAST MEDICAL HISTORY: Diabetes mellitus type 2, hypertension, hyperlipidemia, osteoarthritis, kidney disease, respiratory failure, sacral pressure ulcer. Previous history of MRSA infection of the right foot. 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 SOCIAL HISTORY: Remote history of smoking. Quit back in 1991. No drinking or drug use. Currently a [facility] resident. FAMILY HISTORY: Mother with history of CVA, TIA, diabetes mellitus, and ID. ALLERGIES: PENICILLIN AND SIMVASTATIN MEDICATIONS: Medications include the patient currently on Tylenol, aspirin, Levaquin, Flagyl, NovoLog, Narcan ,Zofran and vancomycin pharmacy to dose. EXAMINATION: Blood pressure 144/76, pulse of 71, temperature 97.7, T-max 100.8. She is 98% on room air. General description: The patient is an elderly female, lying in bed in no distress. No tachypnea or accessory muscles of respiration use. HEENT: Shows slight pallor. No scleral icterus. Oral mucosal membranes are dry. No pharyngeal erythema or thrush. NECK: Trachea central. No thyromegaly. Lungs unlabored breathing. Clear to auscultation anteriorly. No wheeze or crackles. HEART: S1, S2. Regular rate and rhythm. ABDOMEN: Soft, no tenderness. No guarding or rigidity. No organomegaly. Extremities: No edema of the feet. Sacral area: The patient did have a stage III sacral pressure ulcer. The wound looks clean with good granulation tissue. No surrounding swelling, redness or any foul-smelling drainage. Neurologically: The patient is awake, alert, oriented times three. Mood and affect normal. LAB: Hemoglobin is 9.6, white count 3.2 with a BUN of 27, creatinine 2.08. Blood culture presumptive MRSA. IMPRESSION/PLAN: 1. Patient admitted to the hospital with acute nausea, vomiting, diarrhea, abdominal pain in a patient who has been diagnosed with diverticulitis in the outpatient setting. Failing outpatient oral Levaquin and Flagyl. The patient started on IV Levaquin. The patient did have a history of PENICILLIN ALLERGY, but no history of anaphylaxis. and Levaquin failure transition her to cephalosporin and in view of the exposure to antibiotic and diarrhea, we will need to rule out C difficile colitis. 2. Patient who does have MRSA bacteremia source could be the Perm catheter the patient has for dialysis. However, the patient is currently not undergoing dialysis. She is recovering from her renal failure and that will be considered high risk of nephrotoxicity from vancomycin. 3. Patient with a stage III sacral pressure ulcer with no evidence of any cellulitis. We will recommend local wound care. PLAN: 1. Discontinue the Levaquin and vancomycin. 2. We will start the patient on Rocephin 2 g IV piggyback daily and Flagyl every 8 hours to cover for diverticulitis. 3. We will repeat blood cultures x1 to document bacteremia. 4. We will add daptomycin 6 mg/kg to cover for the MRSA bacteremia, however, would recommend removal of the [id number] if there is no plan for dialysis as that could be more likely the source. 5. For the sacral wound, we will apply wound VAC with black foam. Continue 125 mmHg to be changed Saturday, Saturday and Saturday and keep the area off the pressure. 6. We will follow up on clinical condition and cultures to further adjust medication if needed. Thank you for this consultation. We will follow the patient along with you. MMODL / IJN: [id number] /
[2018-03-11 09:48] LABS: Glucose,Whole Blood 84 mg/dL (75-99)
--- NOTE | 2018-03-11 11:46 | P.PN ---
Subjective Progress Note Date: 03/11/18 Seen and examined for the follow-up of chronic kidney disease. She has history of [place] I dialysis dependent off dialysis for a month. Permacath has been removed. She comes in with abdominal discomfort currently being treated as diverticulitis. Abdomen better today no nausea vomiting or diarrhea. Objective - Vital Signs Vital signs: Vital Signs Temp 98.1 F 03/11/18 07:25 Pulse 73 03/11/18 07:25 Resp 16 03/11/18 07:25 BP 134/83 03/11/18 07:25 Pulse Ox 98 03/11/18 07:25 Intake & Output 03/10/18 03/11/18 03/11/18 18:59 06:59 18:59 Intake Total 2034 Balance 2034 Weight 98.5 kg 101 kg Intake: Intake, IV Titration 1675 Amount DAPTOmycin 600 mg In 50 Sodium Chloride 0.9% 50 ml @ 100 mls/hr IVPB Q48H [facility] Rx#:[id number] Sodium Chloride 0.9% 1, 1425 000 ml @ 150 mls/hr IV . Q6H40M [facility] Rx#:[id number] metroNIDAZOLE-NS PMX 500 200 mg In Saline 1 100ml.bag @ 100 mls/hr IVPB Q8H [facility] Rx#:[id number] Oral 360 Other: Voiding Method Diaper Diaper Incontinent Incontinent # Voids 2 - Exam No acute distress S1-S2 heard Lungs clear No edema - Labs CBC & Chem 7: 03/10/18 07:22 03/10/18 07:22 Labs: Abnormal Lab Results - Last 24 Hours (Table) 03/11/18 Range/Units 07:22 POC Glucose (mg/dL) 72 L (75-99) mg/dL Microbiology - Last 24 Hours (Table) 03/09/18 22:45 Gram Stain - Preliminary Tissue - Other Wound Culture - Preliminary Gram Neg Bacilli Presumptive MRSA 03/09/18 09:50 Blood Culture Gram Stain - Final Blood Blood Culture - Final Methicillin resist S. aureus Assessment and Plan Assessment: #1 acute kidney injury secondary to prerenal process. No labs today. #2 chronic kidney disease stage IV secondary to nephrosclerosis baseline creatinine 1.8-2.1 MG per DL. History of previous HD dependency currently off dialysis #3 suspected urinary tract infection with abnormal UA #4 hypertension with chronic kidney disease #5 anemia with chronic kidney disease Plan: #1 creatinine currently at baseline, no new labs today. IV fluids can be stopped once she is tolerating oral diet. #2 avoid nephrotoxic agents and hypotensive episodes #3 maintain Vanco trough levels less than 20. #4 labs in the morning
--- NOTE | 2018-03-11 12:03 | P.PN ---
Subjective Progress Note Date: 03/11/18 Principal diagnosis: Diverticulitis, sacral wound Patient seen and examined. No acute events overnight. Patient reports improvement in her abdominal pain, none currently. She reports mild nausea and spitting up, otherwise tolerating diet okay. She does complain of pain in the sacral region. No fever or chills. No chest pain, shortness of breath or palpitations. Blood cultures and wound cultures grow gram-negative bacilli and presumptive MRSA. Objective - Vital Signs Vital signs: Vital Signs Temp 98.1 F 03/11/18 07:25 Pulse 73 03/11/18 07:25 Resp 16 03/11/18 07:25 BP 134/83 03/11/18 07:25 Pulse Ox 98 03/11/18 07:25 Intake & Output 03/10/18 03/11/18 03/11/18 18:59 06:59 18:59 Intake Total 2034 Balance 2034 Weight 98.5 kg 101 kg Intake: Intake, IV Titration 1675 Amount DAPTOmycin 600 mg In 50 Sodium Chloride 0.9% 50 ml @ 100 mls/hr IVPB Q48H [facility] Rx#:[id number] Sodium Chloride 0.9% 1, 1425 000 ml @ 150 mls/hr IV . Q6H40M [facility] Rx#:[id number] metroNIDAZOLE-NS PMX 500 200 mg In Saline 1 100ml.bag @ 100 mls/hr IVPB Q8H [facility] Rx#:[id number] Oral 360 Other: Voiding Method Diaper Diaper Incontinent Incontinent # Voids 2 - Exam General: [non toxic], [no distress], [appears at stated age] Derm: [warm], [dry] Head: [atraumatic], [normocephalic], [symmetric] Eyes: [EOMI], [no lid lag], [anicteric sclera] Mouth: [no lip lesion], [mucus membranes moist] Cardiovascular: [S1S2 reg], [no murmur], [positive DP pulse bilateral] Lungs: [CTA bilateral], [no rhonchi, no rales] , [no accessory muscle use] Abdominal: [soft], [ nontender to palpation], [no guarding], [no appreciable organomegaly] Ext: [no gross muscle atrophy], [no edema], [contractured lower extremities.] Neuro: [no focal neuro deficits] Psych: [Alert], [oriented], [appropriate affect] - Labs CBC & Chem 7: 03/10/18 07:22 03/10/18 07:22 Labs: Abnormal Lab Results - Last 24 Hours (Table) 03/11/18 Range/Units 07:22 POC Glucose (mg/dL) 72 L (75-99) mg/dL Microbiology - Last 24 Hours (Table) 03/09/18 22:45 Gram Stain - Preliminary Tissue - Other Wound Culture - Preliminary Gram Neg Bacilli Presumptive MRSA 03/09/18 09:50 Blood Culture Gram Stain - Final Blood Blood Culture - Final Methicillin resist S. aureus Assessment and Plan Assessment: Assessment and Plan 1. Diverticulitis: Patient is afebrile with no leukocytosis. Lactic acid is within normal limits. Seen on CT scan 03/05/2018, failed outpatient PO therapy. KUB is within normal limits. Amylase and Lipase within normal limits. UA shows trace LE but patient is asymptomatic. Tylenol for fever. DC Levofloxacin 500 mg IV QD and continue Metronidazole 500 mg IV TID. Add Ceftriaxone 2g IV QD as per ID. Pain control with Morphine 4 mg IV Q4H. Zofran 4 mg IV TID PRN for N/V. Protonix 40 mg PO QAM. CLD and advance diet. BCx prelim + MRSA. FU BCx (final), ID consult 2. Stage III Pressure ulcer: WCx + MRSA and GNB. DC Vancomycin 1750 mg IV QD and start Daptomycin 600 mg IV Q48H. Albumin 2.0. Continue ensure TID to CLD. Local wound care. Frequent turning by nurses. FU Dietitian, ID consult 3. Bacteremia: BCx + MRSA. Likely source from the wound. Lactic acid within normal limits. Vital signs are stable. Continue Daptomycin. FU ID 4. Diabetes Mellitus: POC glucose 84. ISS. Hypoglycemic precautions. Regular accuchecks. 5. Hypertension: BP 134/83. Continue Metoprolol 25 mg PO BID. Continue ASA 81 mg PO QD. Monitor vitals, adjust medication as necessary. 6. CKD: Cr 2.08 greatly improved from previous admissions. Encourage PO hydration. Avoid nephrotoxins. BMP daily as patient is on Vancomycin. FU Nephrology regarding permacath 7. HFpEF: Echo 10/2017 shows EF 50-55% with LVH. Continue Metoprolol 25 mg PO BID. 8. Anemia: Hg 9.6 Hct 30.1 MCV 87.6 likely due to CKD. Daily CBC. 9. DVT/GI Prophylaxis: Heparin 5000 units TID. Patient being treated for Diverticulitis. Failed outpatient therapy. Continue IV Antibiotics. Wants to switch assisted to [facility]. Pending clinical improvement and consult for placement.
[2018-03-11 12:15] LABS: Glucose,Whole Blood 79 mg/dL (75-99)
[2018-03-11 17:35] LABS: Glucose,Whole Blood 75 mg/dL (75-99)
[2018-03-11] MEDS: ASPIRIN 81 MG PO SCH (18:09)
[2018-03-11 20:22] LABS: Glucose,Whole Blood 87 mg/dL (75-99)
[2018-03-11 23:55] LABS: Glucose,Whole Blood 78 mg/dL (75-99)
[2018-03-12] MEDS: metroNIDAZOLE-NS PMX 500 MG in SALINE 1 100ML.BAG IVPB SCH ×3 (03:33→19:20)
[2018-03-12] MEDS: ONDANSETRON 4 MG/2 ML VIAL IVP PRN ×2 (04:53→15:52)
[2018-03-12 05:01] LABS: Glucose,Whole Blood 73 mg/dL (75-99)
[2018-03-12 07:11] LABS: Glucose,Whole Blood 91 mg/dL (75-99)
--- NOTE | 2018-03-12 07:24 | PN ---
PROGRESS NOTE DATE OF SERVICE: 03/11/2018. REASON FOR FOLLOWUP: 1. MRSA bacteremia. 2. Diverticulitis. 3. Sacral wound. INTERVAL HISTORY: The patient is afebrile. The patient denies any fever or chills. Denies having any chest pain or shortness or cough. Slight nausea but no vomiting. No diarrhea and no abdominal pain. PHYSICAL EXAMINATION: Blood pressure 135/67 with a pulse of 66, temperature 97.8. She is 96% on room air. General description is an elderly female lying in bed in no distress. Respiratory system: Unlabored breathing. Clear to auscultation anteriorly. Heart S1, S2. Regular rate and rhythm. Abdomen soft, no tenderness. No guarding or rigidity. Extremities: No edema of the feet. LABS: Hemoglobin 9.8, white count of 3.2 with a BUN of 27, creatinine 2.08. DIAGNOSTIC IMPRESSION/PLAN: 1. Patient with MRSA bacteremia. Concern is likely for the PermCath infection as the patient not undergoing any dialysis. discontinue the Guo catheter. The patient will be continued on daptomycin as she is high risk of nephrotoxicity from vancomycin. Blood cultures will be repeated. 2. Patient with diverticulitis. The patient failing outpatient oral Flagyl therapy to continue along with Flagyl. 3. Sacral wound. Local wound care with wound V.A.C. and will re-evaluate the patient tomorrow. MMODL / IJN: [id number] /
[2018-03-12 07:50] LABS: Calcium 7.9 mg/dL (8.4-10.2); Potassium 3.2 mmol/L (3.5-5.1)
[2018-03-12] MEDS: INSULIN ASPART 100 UNIT/ML 1 ML 10 ML VIAL SQ SCH ×4 (08:25→20:39)
[2018-03-12] MEDS: SODIUM CHLORIDE 0.9% 1,000 ML IV SCH ×3 (08:27→20:40)
[2018-03-12] MEDS: HEPARIN SODIUM,PORCINE 5,000 UNIT/ML 1 ML VIAL SQ SCH ×2 (08:29→17:17)
[2018-03-12] MEDS: METOPROLOL TARTRATE 25 MG TAB PO SCH ×2 (08:31→20:41)
[2018-03-12] MEDS: cefTRIAXone 2,000 MG in SODIUM CHLORIDE 0.9% 100 ML IVPB SCH (08:31)
[2018-03-12] MEDS: PANTOPRAZOLE 40 MG TABLET PO SCH (08:31)
[2018-03-12] MEDS ORDERED: POTASSIUM CHLORIDE ER 20 MEQ TAB.ER PO STA ×2 (08:46→10:40)
--- NOTE | 2018-03-12 08:47 | P.PN ---
Subjective Patient is seen in follow-up for acute kidney injury on chronic kidney disease. Patient has chronic kidney disease stage IV with baseline creatinine in the range of 1.8-2.1 secondary to nephrosclerosis. GFR is at baseline. Currently resting in bed. Oral intake is good. No vomiting or diarrhea. Vital signs are stable. General: The patient appeared well nourished and normally developed. HEENT: Head exam is unremarkable. Neck is without jugular venous distension. LUNGS: Lungs are clear to auscultation and percussion. Breath sounds decreased. HEART: Rate and Rhythm are regular. First and second heart sounds normal. No murmurs, rubs or gallops. ABDOMEN: Abdominal exam reveals normal bowel sounds. Non-tender and non- distended. No evidence of peritonitis. EXTREMITITES: No clubbing, cyanosis, or edema. Objective - Vital Signs Vital signs: Vital Signs Temp 97.8 F 03/12/18 05:00 Pulse 71 03/12/18 05:00 Resp 18 03/12/18 05:00 BP 159/78 03/12/18 05:00 Pulse Ox 100 03/12/18 05:00 Intake & Output 03/11/18 03/12/18 03/12/18 18:59 06:59 18:59 Intake Total 450 550 Balance 450 550 Weight 103 kg Intake: Intake, IV Titration 450 550 Amount Sodium Chloride 0.9% 1, 450 550 000 ml @ 50 mls/hr IV . Q20H [facility] Rx#:[id number] Other: Voiding Method Diaper Diaper Incontinent Incontinent - Labs CBC & Chem 7: 03/10/18 07:22 03/12/18 07:20 Labs: Abnormal Lab Results - Last 24 Hours (Table) 03/12/18 03/12/18 Range/Units 04:59 07:20 Potassium 3.2 L (3.5-5.1) mmol/L Chloride 116 H (98-107) mmol/L BUN 22 H (7-17) mg/dL Creatinine 1.86 H (0.52-1.04) mg/dL POC Glucose (mg/dL) 73 L (75-99) mg/dL Calcium 7.9 L (8.4-10.2) mg/dL Microbiology - Last 24 Hours (Table) 03/10/18 18:40 Blood Culture - Preliminary Blood No Growth after 24 hours 03/09/18 22:45 Gram Stain - Preliminary Tissue - Other Wound Culture - Preliminary Gram Neg Bacilli Presumptive MRSA 03/09/18 09:50 Blood Culture Gram Stain - Final Blood Blood Culture - Final Methicillin resist S. aureus Assessment and Plan Plan: Assessment: 1. Acute kidney injury mostly prerenal improved with IV hydration. Creatinine 1.86 today. 2. Chronic kidney disease stage IV secondary to nephrosclerosis with baseline creatinine in the range of 1.8-2.1. Patient was on hemodialysis in the past and subsequently recovered kidney function. 3. Hypertension with chronic kidney disease. 4. Anemia of chronic kidney disease. 5. MRSA bacteremia with tissue culture positive for gram-negative bacilli and MRSA. Patient has a sacral wound. Patient still also has permacath in place. 6. Hypokalemia from poor oral intake. Rule out magnesium deficiency. Plan: Antibiotics per infectious disease. Recommend removing the P-cath as there is no need for replacement therapy at this time and is a potential source of bacteremia. Decrease normal saline to 75 mL an hour. Avoid nephrotoxins. Replace potassium. 40 mg once today. Check magnesium level as well. Add Aranesp.
[2018-03-12] MEDS ORDERED: DARBEPOETIN ALFA 40 MCG/0.4 ML SYRINGE SQ SCH (09:00)
[2018-03-12] MEDS: MORPHINE SULFATE 4 MG/ML SYRINGE IV PRN ×2 (12:04→17:18)
[2018-03-12] MEDS: MAGNESIUM SULFATE-D5W PMX 1 GM in DEXTROSE/WATER 1 100ML.BAG IVPB SCH ×3 (12:05→14:58)
--- NOTE | 2018-03-12 12:10 | P.PN ---
Subjective Progress Note Date: 03/12/18 Principal diagnosis: Diverticulitis, bacteremia Patient seen and examined. No acute events overnight. Patient reports difficulty swallowing potassium supplements, one episode of emesis. She denies any abdominal pain. She complains of pain at the site of her sacral wound. Pain is well-controlled with current medications. She has been afebrile with no leukocytosis since admission. Vascular surgery consulted for permacath removal. Her blood cultures have been positive for MRSA. Infectious disease and nephrology on board. Objective - Vital Signs Vital signs: Vital Signs Temp 97.8 F 03/12/18 05:00 Pulse 71 03/12/18 05:00 Resp 18 03/12/18 05:00 BP 159/78 03/12/18 05:00 Pulse Ox 100 03/12/18 05:00 Intake & Output 03/11/18 03/12/18 03/12/18 18:59 06:59 18:59 Intake Total 450 550 Balance 450 550 Weight 103 kg Intake: Intake, IV Titration 450 550 Amount Sodium Chloride 0.9% 1, 450 550 000 ml @ 50 mls/hr IV . Q20H [facility] Rx#:[id number] Other: Voiding Method Diaper Diaper Incontinent Incontinent - Exam General: [non toxic], [no distress], [appears at stated age] Derm: [warm], [dry] Head: [atraumatic], [normocephalic], [symmetric] Eyes: [EOMI], [no lid lag], [anicteric sclera] Mouth: [no lip lesion], [mucus membranes moist] Cardiovascular: [S1S2 reg], [no murmur], [positive DP pulse bilateral] Lungs: [CTA bilateral], [no rhonchi, no rales] , [no accessory muscle use], [ right permacath] Abdominal: [soft], [ nontender to palpation], [no guarding], [no appreciable organomegaly] Ext: [no gross muscle atrophy], [no edema], [contractured lower extremities, sacral wound vac in place] Neuro: [no focal neuro deficits] Psych: [Alert], [oriented], [appropriate affect] - Labs CBC & Chem 7: 03/10/18 07:22 03/12/18 07:20 Labs: Abnormal Lab Results - Last 24 Hours (Table) 03/12/18 03/12/18 03/12/18 Range/Units 04:59 07:20 07:20 Potassium 3.2 L (3.5-5.1) mmol/L Chloride 116 H (98-107) mmol/L BUN 22 H (7-17) mg/dL Creatinine 1.86 H (0.52-1.04) mg/dL POC Glucose (mg/dL) 73 L (75-99) mg/dL Calcium 7.9 L (8.4-10.2) mg/dL Magnesium 1.4 L (1.6-2.3) mg/dL Microbiology - Last 24 Hours (Table) 03/10/18 18:40 Blood Culture - Preliminary Blood No Growth after 24 hours 03/09/18 22:45 Gram Stain - Preliminary Tissue - Other Wound Culture - Preliminary Gram Neg Bacilli Presumptive MRSA 03/09/18 09:50 Blood Culture Gram Stain - Final Blood Blood Culture - Final Methicillin resist S. aureus Assessment and Plan Assessment: Assessment and Plan 1. Diverticulitis: Patient is afebrile with no leukocytosis. Lactic acid is within normal limits. Seen on CT scan 03/05/2018, failed outpatient PO therapy. KUB is within normal limits. Amylase and Lipase within normal limits. UA shows trace LE but patient is asymptomatic. Tylenol for fever. DC Levofloxacin 500 mg IV QD and continue Metronidazole 500 mg IV TID. Continue Ceftriaxone 2g IV QD as per ID. Pain control with Morphine 4 mg IV Q4H. Zofran 4 mg IV TID PRN for N/ V. Protonix 40 mg PO QAM. CLD and advance diet. BCx prelim + MRSA. FU BCx (final ), ID consult 2. Stage III Pressure ulcer: WCx + MRSA and GNB. DC Vancomycin 1750 mg IV QD and start Daptomycin 600 mg IV Q48H. Albumin 2.0. Continue ensure TID to CLD. Local wound care. Frequent turning by nurses. FU Dietitian, ID consult 3. Bacteremia: BCx + MRSA. Likely source from the wound. Lactic acid within normal limits. Vital signs are stable. Continue Daptomycin. Vascular surgery and IR consulted for permacath removal. FU ID, Vascular surgery 4. Diabetes Mellitus: POC glucose 91. ISS. Hypoglycemic precautions. Regular accuchecks. 5. Hypertension: BP 159/78. Continue Metoprolol 25 mg PO BID. Continue ASA 81 mg PO QD. Monitor vitals, adjust medication as necessary. 6. CKD: Cr 2.08 greatly improved from previous admissions. Encourage PO hydration. Avoid nephrotoxins. BMP daily as patient is on Vancomycin. FU Nephrology regarding permacath 7. HFpEF: Echo 10/2017 shows EF 50-55% with LVH. Continue Metoprolol 25 mg PO BID. 8. Anemia: Hg 9.6 Hct 30.1 MCV 87.6 likely due to CKD. Daily CBC. 9. DVT/GI Prophylaxis: Heparin 5000 units TID. Patient being treated for Diverticulitis and bacteremia with the likely source coming from sacral wound. Failed outpatient therapy. Continue IV Antibiotics, MRSA is sensitive to daptomycin. [facility]ants [facility]. Pending permacath removal and placement. Likely discharge today or tomorrow.
[2018-03-12 12:11] LABS: Glucose,Whole Blood 73 mg/dL (75-99)
[2018-03-12 16:49] LABS: Glucose,Whole Blood 90 mg/dL (75-99)
[2018-03-12] MEDS ORDERED: LIDOCAINE 1% (PF) 10MG/ML VIAL SQ ONE (17:00)
[2018-03-12] MEDS: ASPIRIN 81 MG PO SCH (17:17)
--- NOTE | 2018-03-12 18:10 | CONS ---
DATE OF CONSULTATION: 03/12/2018 This patient is known to me. She has a history of chronic renal failure. We placed a dialysis catheter via the right IJ approach. I was called in for removal of the catheter. Patient has a positive blood culture and the patient has history of heart failure, diabetes, hypertension. Patient was recently not on dialysis. Patient has history of diverticulitis. On examination, neck is supple. Chest has a few crackles at the lung bases. Patient has a right IJ catheter. Femoral pulses are present. Plan is removal of the dialysis catheter. MMODL / IJN: [id number] / MTDD
[2018-03-12 20:10] LABS: Glucose,Whole Blood 99 mg/dL (75-99)
--- NOTE | 2018-03-12 22:43 | PN ---
PROGRESS NOTE DATE OF SERVICE: 03/12/2018 REASON FOR FOLLOWUP: 1. MRSA bacteremia with a question of possible PermCath infection. 2. Acute diverticulitis. 3. Sacral wound with a question of osteomyelitis. INTERVAL HISTORY: The patient is afebrile. She is breathing comfortably. The patient denies having any chest pain, shortness of breath or cough. No abdominal pain. No further vomiting or any diarrhea. Denies any pain to the sacral area. PHYSICAL EXAMINATION: Blood pressure 149/72 with a pulse of 71, temperature of 97.8. She is 95% on room air. General description is an elderly female lying in bed in no distress. RESPIRATORY SYSTEM: Unlabored breathing. Clear to auscultation anteriorly. HEART: S1, S2. Regular rate and rhythm. ABDOMEN: Soft. LABS: BUN of 22, creatinine is 1.86. The blood culture repeat is negative so far. The sacral wound culture is showing E coli and presumptive MRSA. DIAGNOSTIC IMPRESSION AND PLAN: 1. Patient with methicillin-resistant Staphylococcus aeruginosa bacteremia and a concern for possible PermCath infection. That is scheduled to be removed. Follow-up blood cultures have been negative. 2. Patient with acute diverticulitis, currently covered with Rocephin and Flagyl; to continue. 3. Patient with a sacral wound with culture positive for methicillin-resistant Staphylococcus aeruginosa as well as Escherichia coli, though the wound clinically does not look significantly infected. We will obtain a bone scan to rule out any osteomyelitis at the sacral wound area that will necessitate PICC line and outpatient IV antibiotic therapy. Continue with supportive care. MMODL / IJN: [id number] /
[2018-03-13] MEDS: HEPARIN SODIUM,PORCINE 5,000 UNIT/ML 1 ML VIAL SQ SCH ×4 (01:24→23:55)
[2018-03-13 02:02] LABS: Glucose,Whole Blood 83 mg/dL (75-99)
[2018-03-13] MEDS: metroNIDAZOLE-NS PMX 500 MG in SALINE 1 100ML.BAG IVPB SCH ×3 (03:31→22:39)
[2018-03-13] MEDS: ONDANSETRON 4 MG/2 ML VIAL IVP PRN ×2 (05:51→13:50)
[2018-03-13] MEDS: MORPHINE SULFATE 4 MG/ML SYRINGE IV PRN (05:52)
[2018-03-13 07:06] LABS: Glucose,Whole Blood 82 mg/dL (75-99)
[2018-03-13] MEDS: INSULIN ASPART 100 UNIT/ML 1 ML 10 ML VIAL SQ SCH ×4 (08:30→20:25)
[2018-03-13] MEDS: METOPROLOL TARTRATE 25 MG TAB PO SCH ×2 (09:11→21:14)
[2018-03-13] MEDS: PANTOPRAZOLE 40 MG TABLET PO SCH (09:11)
[2018-03-13] MEDS: cefTRIAXone 2,000 MG in SODIUM CHLORIDE 0.9% 100 ML IVPB SCH (09:12)
--- NOTE | 2018-03-13 09:33 | P.PN ---
Subjective Patient is seen in follow-up for acute kidney injury on chronic kidney disease. Patient has chronic kidney disease stage IV with baseline creatinine in the range of 1.8-2.1 secondary to nephrosclerosis. GFR is at baseline. Currently resting in bed. No vomiting or diarrhea. Permacath was discontinued yesterday. Feels nauseous. Currently on clear liquid diet. Vital signs are stable. General: The patient appeared well nourished and normally developed. HEENT: Head exam is unremarkable. Neck is without jugular venous distension. LUNGS: Lungs are clear to auscultation and percussion. Breath sounds decreased. HEART: Rate and Rhythm are regular. First and second heart sounds normal. No murmurs, rubs or gallops. ABDOMEN: Abdominal exam reveals normal bowel sounds. Non-tender and non- distended. No evidence of peritonitis. EXTREMITITES: No clubbing, cyanosis, or edema. Objective - Vital Signs Vital signs: Vital Signs Temp 97.9 F 03/13/18 05:00 Pulse 68 03/13/18 05:00 Resp 18 03/13/18 05:00 BP 161/80 03/13/18 05:00 Pulse Ox 99 03/13/18 05:00 Intake & Output 03/12/18 03/13/18 03/13/18 18:59 06:59 18:59 Intake Total 3230 480 Balance 3230 480 Weight 103 kg 104 kg Intake: Intake, IV Titration 1550 Amount Magnesium Sulfate-D5w Pmx 300 1 gm In Dextrose/Water 1 100ml.bag @ 100 mls/hr IVPB Q1H [facility] Rx#: [id number] Sodium Chloride 0.9% 1, 600 000 ml @ 150 mls/hr IV . Q6H40M [facility] Rx#:[id number] Sodium Chloride 0.9% 1, 300 000 ml @ 50 mls/hr IV . Q20H [facility] Rx#:[id number] Sodium Chloride 0.9% 1, 150 000 ml @ 75 mls/hr IV . [id number] [facility] Rx#:[id number] cefTRIAXone 2,000 mg In 100 Sodium Chloride 0.9% 100 ml @ 100 mls/hr IVPB Q24HR [facility] Rx#:[id number] metroNIDAZOLE-NS PMX 500 100 mg In Saline 1 100ml.bag @ 100 mls/hr IVPB Q8H [facility] Rx#:[id number] Oral [id number] 480 Other: Voiding Method Diaper Diaper Incontinent Incontinent # Voids 3 4 - Labs CBC & Chem 7: 03/10/18 07:22 03/12/18 07:20 Labs: Abnormal Lab Results - Last 24 Hours (Table) 03/12/18 Range/Units 12:10 POC Glucose (mg/dL) 73 L (75-99) mg/dL Microbiology - Last 24 Hours (Table) 03/09/18 22:45 Gram Stain - Final Tissue - Other Wound Culture - Final Escherichia coli Methicillin resist S. aureus 03/12/18 17:00 Gram Stain - Preliminary Catheter Site Wound Culture - Preliminary 03/12/18 17:00 Catheter Tip Culture - Preliminary Catheter Tip 03/10/18 18:40 Blood Culture - Preliminary Blood No Growth after 48 hours Assessment and Plan Plan: Assessment: 1. Acute kidney injury mostly prerenal improved with IV hydration. Creatinine 1.86 as of yesterday. 2. Chronic kidney disease stage IV secondary to nephrosclerosis with baseline creatinine in the range of 1.8-2.1. Patient was on hemodialysis in the past and subsequently recovered kidney function. 3. Hypertension with chronic kidney disease. 4. Anemia of chronic kidney disease maintained on Aranesp. 5. MRSA bacteremia with tissue culture positive for E. coli and MRSA. Patient has a sacral wound. Permacath was removed on March 12. 6. Hypokalemia from poor oral intake. Status post replacement. 7. Hypomagnesemia due to poor oral intake status post placement. 8. Acute diverticulitis maintain on antibiotics. Plan: Antibiotics per infectious disease. Maintain normal saline at 75 mL an hour. Avoid nephrotoxins. Repeat labs in the morning.
--- NOTE | 2018-03-13 10:41 | PCN ---
PROCEDURE NOTE PROCEDURE: Removal of dialysis catheter, right jugular approach. This patient was seen. The right side of the neck and chest was prepped and draped in a usual sterile manner; 1% lidocaine was infiltrated into the neck area. Incision was made at the exit site of the catheter. There was some tender infection noted. Some pus was coming out. We took the culture, went around the cuff of the catheter. Catheter removed. Tip of the catheter sent for culture and sensitivity. Pressure dressing applied. Patient tolerated the procedure well. MMODL / IJN: [id number] /
[2018-03-13 11:22] LABS: HCT 30.3 % (34.0-46.0); HGB 9.8 gm/dL (11.4-16.0); Hypochromasia Slight; MCH 28.2 pg (25.0-35.0); MCHC 32.2 g/dL (31.0-37.0); MCV 87.5 fL (80.0-100.0); Platelet Count 105 k/uL (150-450); RBC 3.47 m/uL (3.80-5.40); RDW 13.9 % (11.5-15.5); WBC 3.3 k/uL (3.8-10.6)
[2018-03-13 11:31] LABS: C Reactive Protein 30.8 mg/L (<10.0); Calcium 7.8 mg/dL (8.4-10.2); Magnesium 1.8 mg/dL (1.6-2.3); Potassium 3.5 mmol/L (3.5-5.1)
[2018-03-13 11:34] LABS: Glucose,Whole Blood 102 mg/dL (75-99)
[2018-03-13] MEDS: SODIUM CHLORIDE 0.9% 1,000 ML IV SCH ×2 (12:38→23:55)
[2018-03-13 13:11] LABS: Erythrocyte Sedimentation Rate 20 mm/hr (0-20)
[2018-03-13] MEDS: metroNIDAZOLE 500 MG TAB PO SCH ×2 (13:53→15:33)
--- NOTE | 2018-03-13 14:07 | P.PN ---
Subjective Progress Note Date: 03/13/18 Principal diagnosis: Bacteremia, diverticulitis Patient was seen and examined. No acute events overnight. Permacath removed yesterday. Bone scan done today. Patient reports extreme nausea and vomiting, unable to hold any medications are clear liquids down. Patient reports Zofran not helping much. Objective - Vital Signs Vital signs: Vital Signs Temp 97.9 F 03/13/18 05:00 Pulse 68 03/13/18 05:00 Resp 18 03/13/18 05:00 BP 161/80 03/13/18 05:00 Pulse Ox 99 03/13/18 05:00 Intake & Output 03/12/18 03/13/18 03/13/18 18:59 06:59 18:59 Intake Total 3230 480 Balance 3230 480 Weight 103 kg 104 kg Intake: Intake, IV Titration 1550 Amount Magnesium Sulfate-D5w Pmx 300 1 gm In Dextrose/Water 1 100ml.bag @ 100 mls/hr IVPB Q1H [facility] Rx#: [id number] Sodium Chloride 0.9% 1, 600 000 ml @ 150 mls/hr IV . Q6H40M [facility] Rx#:[id number] Sodium Chloride 0.9% 1, 300 000 ml @ 50 mls/hr IV . Q20H [facility] Rx#:[id number] Sodium Chloride 0.9% 1, 150 000 ml @ 75 mls/hr IV . [id number] [facility] Rx#:[id number] cefTRIAXone 2,000 mg In 100 Sodium Chloride 0.9% 100 ml @ 100 mls/hr IVPB Q24HR [facility] Rx#:[id number] metroNIDAZOLE-NS PMX 500 100 mg In Saline 1 100ml.bag @ 100 mls/hr IVPB Q8H [facility] Rx#:[id number] Oral 1680 480 Other: Voiding Method Diaper Diaper Incontinent Incontinent # Voids 3 4 - Exam General: [non toxic], [no distress], [appears at stated age] Derm: [warm], [dry] Head: [atraumatic], [normocephalic], [symmetric] Eyes: [EOMI], [no lid lag], [anicteric sclera] Mouth: [no lip lesion], [mucus membranes moist] Cardiovascular: [S1S2 reg], [no murmur], [positive DP pulse bilateral] Lungs: [CTA bilateral], [no rhonchi, no rales] , [no accessory muscle use] Abdominal: [soft], [ nontender to palpation], [no guarding], [no appreciable organomegaly] Ext: [no gross muscle atrophy], [no edema], [contractured lower extremities, sacral wound vac in place] Neuro: [no focal neuro deficits] Psych: [Alert], [oriented], [appropriate affect] - Labs CBC & Chem 7: 03/13/18 10:41 03/13/18 10:41 Labs: Abnormal Lab Results - Last 24 Hours (Table) 03/13/18 03/13/18 03/13/18 Range/Units 10:41 10:41 11:30 WBC 3.3 L (3.8-10.6) k/uL RBC 3.47 L (3.80-5.40) m/uL Hgb 9.8 L (11.4-16.0) gm/dL Hct 30.3 L (34.0-46.0) % Plt Count 105 L (150-450) k/uL Chloride 117 H (98-107) mmol/L Carbon Dioxide 21 L (22-30) mmol/L BUN 18 H (7-17) mg/dL Creatinine 1.63 H (0.52-1.04) mg/dL POC Glucose (mg/dL) 102 H (75-99) mg/dL Calcium 7.8 L (8.4-10.2) mg/dL C-Reactive Protein 30.8 H (<10.0) mg/L Microbiology - Last 24 Hours (Table) 03/09/18 22:45 Gram Stain - Final Tissue - Other Wound Culture - Final Escherichia coli Methicillin resist S. aureus 03/12/18 17:00 Gram Stain - Preliminary Catheter Site Wound Culture - Preliminary 03/12/18 17:00 Catheter Tip Culture - Preliminary Catheter Tip 03/10/18 18:40 Blood Culture - Preliminary Blood No Growth after 48 hours Assessment and Plan Assessment: Assessment and Plan 1. Bacteremia: BCx + MRSA. Likely source from the wound and possibly from catheter tip. Lactic acid within normal limits. Vital signs are stable. Continue Daptomycin IV. Permacath removed by vascular surgery. FU tip Cx 2. Diverticulitis: Patient is afebrile with no leukocytosis. Lactic acid is within normal limits. Seen on CT scan 03/05/2018, failed outpatient PO therapy. KUB is within normal limits. Amylase and Lipase within normal limits. UA shows trace LE but patient is asymptomatic. Tylenol for fever. DC Levofloxacin 500 mg IV QD and continue Metronidazole 500 mg IV TID. Continue Ceftriaxone 2g IV QD as per ID. Pain control with Morphine 4 mg IV Q4H. Zofran 4 mg IV TID PRN for N/ V. Protonix 40 mg PO QAM. CLD and advance diet. BCx + MRSA, BCx #2 prelim negative after 48H. FU BCx #2 (final), ID consult 3. Stage III Pressure ulcer: WCx + MRSA and E.coli. DC Vancomycin 1750 mg IV QD and start Daptomycin 600 mg IV Q48H. Albumin 2.0. Continue ensure TID to CLD. Local wound care. Frequent turning by nurses. Wound vac in place. Infectious disease consulted, recommends bone scan of the sacrum to rule out osteomyelitis , sacral x-ray is nondiagnostic. FU Dietitian, ID consult, bone scan 4. Diabetes Mellitus: POC glucose 102. ISS. Hypoglycemic precautions. Regular accuchecks. 5. Hypertension: BP 161/80. Continue Metoprolol 25 mg PO BID. Continue ASA 81 mg PO QD. Monitor vitals, adjust medication as necessary. 6. CKD: Cr 1.63 greatly improved from previous admissions. Encourage PO hydration. Avoid nephrotoxins. BMP daily as patient is on Vancomycin. Permacath removed by vascular surgery. 7. HFpEF: Echo 10/2017 shows EF 50-55% with LVH. Continue Metoprolol 25 mg PO BID. 8. Anemia: Hg 9.8 Hct 30.3 MCV 87.5 likely due to CKD. Daily CBC. 9. DVT/GI Prophylaxis: Heparin 5000 units TID. Patient being treated for Diverticulitis and bacteremia with the likely source coming from sacral wound or permacath. Pending bone scan and sacral x-ray to rule out osteomyelitis. If positive for osteomyelitis, she will require a PICC. If negative for osteomyelitis, patient likely to return back to [facility]. Patient continues to be intolerant of oral intake, she is pending clinical improvement.
--- NOTE | 2018-03-13 14:23 | XR ---
EXAMINATION TYPE: XR sacrum coccyx DATE OF EXAM: 03/13/2018 COMPARISON: NONE HISTORY: 67-year-old female sacral wound, assess for ostium myelitis TECHNIQUE: 3 views FINDINGS: Marked osteopenia limits the assessment. SI joints appear relatively symmetric and intact. The degree of osteopenia limits assessment of the distal sacrum and coccygeal segments as does the soft tissue air relating to the patient's decubitus ulcer which projects partially over the lower sacrum. Suspect overlying wound VAC. IMPRESSION: External artifact, additional artifacts from air relating to the patient's wound, and osteopenia all limiting the evaluation of the distal sacrum/coccyx.
[2018-03-13 14:50] VITALS: BMI 32.8
--- NOTE | 2018-03-13 16:34 | NM ---
EXAMINATION TYPE: NM bone 3 phase DATE OF EXAM: 03/13/2018 COMPARISON: NONE HISTORY: 67-year-old female sacral wound, positive MRSA culture, question osteomyelitis. Technique: Triple phase bone scintigraphy was performed following the injection of 24 mCi Tc 99m MDP. Immediate and pool images and 3.5 hours post injection images acquired. Imaging centered on the pel vis. FINDINGS: Flow and pool images show focal increased activity centrally along the sacrum. Likely soft tissue upt william relating to the patient's decubitus ulcer. This does not clearly persist on the delayed images. Prominent bladder activity is noted. Particular attention is paid to the lateral projections. No focal abnormal intense activity is seen a t the distal sacrum or coccyx. IMPRESSION: 1. Focal uptake projecting over the mid sacrum on flow and pool imaging not clearly persisting on del ayed images. Findings likely relate to soft tissue uptake at the site of patient's decubitus ulcer. 2. When correlating with the lateral views on delayed imaging, there is no focal abnormal activity se en at the distal sacrum or coccyx to support osteomyelitis at this site.
[2018-03-13] MEDS: ASPIRIN 81 MG PO SCH (16:58)
[2018-03-13 17:08] LABS: Glucose,Whole Blood 93 mg/dL (75-99)
[2018-03-13 20:01] LABS: Glucose,Whole Blood 88 mg/dL (75-99)
[2018-03-13 21:01] LABS: Glucose,Whole Blood 90 mg/dL (75-99)
--- NOTE | 2018-03-13 22:14 | PN ---
PROGRESS NOTE DATE OF SERVICE: 03/13/2018 REASON FOR FOLLOWUP: 1. MRSA bacteremia, source abdominal catheter, which has been discontinued. Blood culture . 2. Sacral pressure ulcer. 3. Diverticulitis. INTERVAL HISTORY: The patient is currently afebrile. She is breathing comfortably. The patient denies having any chest pain or shortness of breath or cough. She is still complaining of feeling nauseated and occasional vomiting, but no diarrhea. Denies pain to the sacral wound area. The patient's PermCath was discontinued yesterday. PHYSICAL EXAMINATION: Blood pressure 151/71 with a pulse of 65, temperature 97.8. She is 99% on room air. General description is an elderly female lying in bed in no distress. HEENT examination shows pallor. No scleral icterus. Oral mucosa membrane dry. LUNGS: Unlabored breathing. Clear to auscultation anteriorly. HEART: S1, S2. Regular rate and rhythm. ABDOMEN: Soft. No tenderness. EXTREMITIES: No edema of the feet. LABS: Hemoglobin 9.8, white count 3.3 with a BUN of 18, creatinine 1.63. Blood cultures 03/10 have come back positive. DIAGNOSTIC IMPRESSION AND PLAN: 1. Patient with methicillin-resistant Staphylococcus aeruginosa bacteremia. Source is the PermCath, which has been discontinued. Blood cultures from 03/10 are positive as well. Repeat blood culture has not documented clearance of bacteremia. The patient will need a midline for outpatient IV antibiotics for at least 2 weeks from one negative blood culture. 2. Patient with a sacral wound which grew Escherichia coli as well as methicillin- resistant Staphylococcus aeruginosa. However, the bone scan was not suspicious for underlying osteomyelitis. The patient's wound did not look significantly infected. Will recommend local care with the wound V.A.C. she is currently on. 3. Patient with acute diverticulitis, currently covered with Rocephin and Flagyl. Hopefully will transition to oral antibiotics once her nausea and vomiting improve. Continue supportive care. MMODL / IJN: [id number] /
[2018-03-14] MEDS: metroNIDAZOLE-NS PMX 500 MG in SALINE 1 100ML.BAG IVPB SCH ×2 (05:48→14:56)
[2018-03-14] MEDS: ONDANSETRON 4 MG/2 ML VIAL IVP PRN (06:02)
[2018-03-14 07:03] LABS: Glucose,Whole Blood 81 mg/dL (75-99)
[2018-03-14 08:40] LABS: Calcium 7.6 mg/dL (8.4-10.2); Magnesium 1.6 mg/dL (1.6-2.3); Potassium 3.3 mmol/L (3.5-5.1)
[2018-03-14] MEDS ORDERED: POTASSIUM CHLORIDE ER 20 MEQ TAB.ER PO STA (08:54)
--- NOTE | 2018-03-14 08:58 | P.PN ---
Subjective Patient is seen in follow-up for acute kidney injury on chronic kidney disease. Patient has chronic kidney disease stage IV with baseline creatinine near 1.8 secondary to nephrosclerosis. Renal function continues to improve with creatinine at 1.36 today. Currently resting in bed. No vomiting or diarrhea. Permacath was discontinued 03/12. Feels nauseous and has dry heaves. Currently on clear liquid diet. Vital signs are stable. General: The patient appeared well nourished and normally developed. HEENT: Head exam is unremarkable. Neck is without jugular venous distension. LUNGS: Lungs are clear to auscultation and percussion. Breath sounds decreased. HEART: Rate and Rhythm are regular. First and second heart sounds normal. No murmurs, rubs or gallops. ABDOMEN: Abdominal exam reveals normal bowel sounds. Non-tender and non- distended. No evidence of peritonitis. EXTREMITITES: No clubbing, cyanosis, or edema. Objective - Vital Signs Vital signs: Vital Signs Temp 98.0 F 03/14/18 05:00 Pulse 74 03/14/18 05:00 Resp 16 03/14/18 05:00 BP 180/83 03/14/18 05:00 Pulse Ox 97 03/14/18 05:00 Intake & Output 03/13/18 03/14/18 03/14/18 18:59 06:59 18:59 Intake Total 2670 2270 Balance 2670 2270 Weight 104 kg 103.5 kg Intake: Intake, IV Titration 750 850 Amount DAPTOmycin 600 mg In 50 50 Sodium Chloride 0.9% 50 ml @ 100 mls/hr IVPB Q24H [facility] Rx#:[id number] Sodium Chloride 0.9% 1, 600 600 000 ml @ 75 mls/hr IV . [id number] [facility] Rx#:[id number] cefTRIAXone 2,000 mg In 100 Sodium Chloride 0.9% 100 ml @ 100 mls/hr IVPB Q24HR [facility] Rx#:[id number] metroNIDAZOLE-NS PMX 500 200 mg In Saline 1 100ml.bag @ 100 mls/hr IVPB Q8H [facility] Rx#:[id number] Oral 1920 1420 Other: Voiding Method Diaper Diaper Incontinent Incontinent # Voids 3 3 - Labs CBC & Chem 7: 03/13/18 10:41 03/14/18 07:48 Labs: Abnormal Lab Results - Last 24 Hours (Table) 03/13/18 03/13/18 03/13/18 Range/Units 10:41 10:41 11:30 WBC 3.3 L (3.8-10.6) k/uL RBC 3.47 L (3.80-5.40) m/uL Hgb 9.8 L (11.4-16.0) gm/dL Hct 30.3 L (34.0-46.0) % Plt Count 105 L (150-450) k/uL Potassium (3.5-5.1) mmol/L Chloride 117 H (98-107) mmol/L Carbon Dioxide 21 L (22-30) mmol/L BUN 18 H (7-17) mg/dL Creatinine 1.63 H (0.52-1.04) mg/dL POC Glucose (mg/dL) 102 H (75-99) mg/dL Calcium 7.8 L (8.4-10.2) mg/dL C-Reactive Protein 30.8 H (<10.0) mg/L 03/14/18 Range/Units 07:48 WBC (3.8-10.6) k/uL RBC (3.80-5.40) m/uL Hgb (11.4-16.0) gm/dL Hct (34.0-46.0) % Plt Count (150-450) k/uL Potassium 3.3 L (3.5-5.1) mmol/L Chloride 119 H (98-107) mmol/L Carbon Dioxide 18 L (22-30) mmol/L BUN (7-17) mg/dL Creatinine 1.36 H (0.52-1.04) mg/dL POC Glucose (mg/dL) (75-99) mg/dL Calcium 7.6 L (8.4-10.2) mg/dL C-Reactive Protein (<10.0) mg/L Microbiology - Last 24 Hours (Table) 03/10/18 18:40 Blood Culture Gram Stain - Preliminary Blood 03/12/18 17:00 Gram Stain - Preliminary Catheter Site Wound Culture - Preliminary Presumptive Staph aureus 03/12/18 17:00 Catheter Tip Culture - Preliminary Catheter Tip Presumptive Staph aureus 03/10/18 18:40 Blood Culture - Final Blood 03/09/18 22:45 Gram Stain - Final Tissue - Other Wound Culture - Final Escherichia coli Methicillin resist S. aureus Assessment and Plan Plan: Assessment: 1. Acute kidney injury mostly prerenal improved with IV hydration. Creatinine down to 1.36 today. 2. Chronic kidney disease stage IV secondary to nephrosclerosis with baseline creatinine near 1.8. Patient was on hemodialysis in the past and subsequently recovered kidney function. 3. Hypertension with chronic kidney disease. Blood pressure on the higher side. 4. Anemia of chronic kidney disease maintained on Aranesp. 5. MRSA bacteremia with tissue culture positive for E. coli and MRSA. Patient has a sacral wound. Permacath was removed on March 12. Catheter tip positive for staph aureus. 6. Hypokalemia from poor oral intake. 7. Hypomagnesemia due to poor oral intake. 8. Acute diverticulitis maintained on antibiotics. 9. Metabolic acidosis secondary to acute kidney injury and IV fluids. Plan: Antibiotics per infectious disease. Maintain normal saline at 75 mL an hour. Avoid nephrotoxins. Repeat labs in the morning. Replace potassium. 40 mEq today. Replace magnesium. 2 g IV today. Add oral sodium bicarbonate. Add amlodipine 5 mg daily.
[2018-03-14] MEDS ORDERED: SODIUM BICARBONATE TAB 650 MG TAB PO SCH (09:00)
[2018-03-14] MEDS ORDERED: amLODIPine 5 MG TAB PO SCH (09:00)
[2018-03-14] MEDS: INSULIN ASPART 100 UNIT/ML 1 ML 10 ML VIAL SQ SCH ×3 (09:31→17:33)
[2018-03-14 09:32] LABS: Glucose,Whole Blood 75 mg/dL (75-99)
[2018-03-14] MEDS: cefTRIAXone 2,000 MG in SODIUM CHLORIDE 0.9% 100 ML IVPB SCH (09:47)
[2018-03-14] MEDS: MAGNESIUM SULFATE-D5W PMX 1 GM in DEXTROSE/WATER 1 100ML.BAG IVPB SCH ×2 (09:48→11:27)
[2018-03-14] MEDS: HEPARIN SODIUM,PORCINE 5,000 UNIT/ML 1 ML VIAL SQ SCH ×2 (09:48→16:24)
[2018-03-14] MEDS: METOPROLOL TARTRATE 25 MG TAB PO SCH (09:49)
[2018-03-14] MEDS: PANTOPRAZOLE 40 MG TABLET PO SCH (09:49)
[2018-03-14 11:35] LABS: Glucose,Whole Blood 94 mg/dL (75-99)
[2018-03-14 12:09] VITALS: BP 140/105; PULSE 72; RESP 18; TEMP 97.8
--- NOTE | 2018-03-14 12:52 | P.DS ---
Providers Date of admission: 03/09/18 12:23 Expected date of discharge: 03/14/18 Attending physician: Norah Mora MD Consults: 03/10/18 00:29 Consult Physician Routine Consulting Provider: Pb Rich Consult Reason/Comments: pressure ulcer coccyx, ?wound vac Do you want consulting provider notified?: Yes 03/10/18 00:31 Consult Physician Routine Consulting Provider: Cleopatra Hahn Consult Reason/Comments: right permacath, recommendation re removal Do you want consulting provider notified?: Yes 03/12/18 12:00 Consult Physician Urgent Consulting Provider: Reddy Persaud Consult Reason/Comments: Permacath removal Do you want consulting provider notified?: Yes Primary care physician: Dav Roldan - Jeanette Diagnosis(es) (1) Stage 3 skin ulcer of sacral region Current Visit: Yes Status: Acute (2) CKD (chronic kidney disease) Current Visit: Yes Status: Acute (3) Diverticulitis Current Visit: Yes Status: Acute (4) Bacteremia Current Visit: No Status: Acute (5) Diabetes Current Visit: No Status: Acute (6) Anemia Current Visit: No Status: Chronic (7) Hypertension Current Visit: No Status: Chronic Hospital Course: 67-year-old female with history of diabetes and CKD. Patient has been a prison resident since her last admission in October where she had prolonged hospital course when she remained in the ICU due to severity of illness she was later discharged to specialty care which she got a trach inserted and then she was sent to rehab. She reports that over the past week she was having dry heaves and abdominal pain described it as colicky left-sided abdominal pain comes and goes sometimes 10 out of 10 in severity associated with dry heaves and at times with diarrhea which has stopped 2 days ago. She is not sure if there is any bloody bowel movements or any melena. She also had dry heaves and sometimes vomiting of stomach fluids and contents. She has not and eating well for the past week. At the prison she was started on oral antibiotics due to a positive CAT scan of the abdomen that suggested sigmoid diverticulitis. Patient is admitted for sigmoid diverticulitis, failed outpatient oral antibiotic therapy. With regard to her diverticulitis, patient was afebrile with no leukocytosis on admission. Lactic acid was within normal limits. I reviewed the computed tomography scan from 03/05/2018 which confirmed diverticulitis. KUB was within normal limits. Amylase and lipase was within normal limits. Urinalysis showed trace leukocyte esterase but patient remained asymptomatic. Patient was given Tylenol for fever. She was initially started on levofloxacin and metronidazole IV. Levofloxacin was exchanged for ceftriaxone as per infectious disease. Her pain was controlled with morphine. She was given Zofran IV as needed for nausea and vomiting. She was started on a clear liquid diet and advanced as tolerated. Initial blood cultures came back positive for MRSA. She was initially started on vancomycin IV which was later switched to daptomycin IV by infectious disease. The source of her bacteremia was thought to be due to her permacath that was placed previously for dialysis. Patient was noted to have a creatinine of 1.63 which is greatly improved from her previous admissions. Nephrology and infectious disease was consulted and recommended removing the permacath. Vascular surgery was consulted and permacath was removed. her repeat blood cultures came back positive for gram-positive cocci, thought to be a contaminant. The case was discussed with infectious disease Dr. Franklin, and the decision was made for patient to obtain a midline and get 2 weeks of IV daptomycin and levofloxacin with by mouth Flagyl. Patient was also noted to have a stage III sacral ulcer. Wound cultures were obtained which was positive for MRSA and E. coli. Dietitian was consulted to optimize her nutritional status as her albumin was 2. Ensure 3 times a day was added to her clear liquid diets. She was given local wound care and frequent turning by nurses along with wound VAC. Sacral x-ray was nondiagnostic for osteomyelitis. Bone scan excluded osteomyelitis. Patient was seen and examined prior to discharge. No acute events overnight. Patient reports one episode of nausea and vomiting yesterday, after her bone scan, associated with the medication that she took prior to the bone scan. She is not had any nausea or vomiting since. Patient reports no abdominal pain. She is tolerating clear liquid diet. General: [non toxic], [no distress], [appears at stated age] Derm: [warm], [dry] Head: [atraumatic], [normocephalic], [symmetric] Eyes: [EOMI], [no lid lag], [anicteric sclera] Mouth: [no lip lesion], [mucus membranes moist] Cardiovascular: [S1S2 reg], [no murmur], [positive DP pulse bilateral] Lungs: [CTA bilateral], [no rhonchi, no rales] , [no accessory muscle use] Abdominal: [soft], [ nontender to palpation], [no guarding], [no appreciable organomegaly] Ext: [no gross muscle atrophy], [no edema], [contractured lower extremities, sacral wound vac in place] Neuro: [no focal neuro deficits] Psych: [Alert], [oriented], [appropriate affect] Assessment and Plan 1. Bacteremia: BCx + MRSA. Likely source from the wound and possibly from catheter tip. Lactic acid within normal limits. Vital signs are stable. Continue Daptomycin IV. Permacath removed by vascular surgery. Tip Cx + S. aureus. Her second blood culture came back as coagulase-negative staph, this is likely contaminant, repeat cultures drawn. Discussed with Dr. Franklin from infectious disease, patient is cleared for discharge with a midline and 2 weeks of IV levofloxacin and daptomycin along with by mouth Flagyl. 2. Diverticulitis: Patient is afebrile with no leukocytosis. Lactic acid is within normal limits. Seen on CT scan 03/05/2018, failed outpatient PO therapy. KUB is within normal limits. Amylase and Lipase within normal limits. UA shows trace LE but patient is asymptomatic. Tylenol for fever. Pain control with Morphine 4 mg IV Q4H. Zofran 4 mg IV TID PRN for N/V. Protonix 40 mg PO QAM. CLD and advance diet. Discussed with Dr. Franklin, patient will complete 2 weeks of IV levofloxacin and oral Flagyl. 3. Stage III Pressure ulcer: WCx + MRSA and E.coli. discussed with infectious disease Dr. Franklin, patient will require 2 weeks of IV daptomycin and levofloxacin. Albumin 2.0. Continue ensure TID to CLD. Local wound care. Frequent turning by nurses. Wound vac in place. Sacral x-ray and bone scan is negative for osteomyelitis of the sacrum. FU Dietitian, ID consult 4. Diabetes Mellitus: POC glucose 94. ISS. Hypoglycemic precautions. Regular accuchecks. 5. Hypertension: BP 140/105. Continue Metoprolol 25 mg PO BID. Continue ASA 81 mg PO QD. Monitor vitals, adjust medication as necessary. 6. CKD: Cr 1.36 greatly improved from previous admissions. Encourage PO hydration. Avoid nephrotoxins. BMP daily as patient is on Vancomycin. Permacath removed by vascular surgery. 7. HFpEF: Echo 10/2017 shows EF 50-55% with LVH. Continue Metoprolol 25 mg PO BID. 8. Anemia: Hg 9.8 Hct 30.3 MCV 87.5 likely due to CKD. Daily CBC. 9. DVT/GI Prophylaxis: Heparin 5000 units TID. Diverticulitis has been treated, patient showing improvement. Bone scan excluded osteomyelitis of the sacrum. She has a midline placed. As discussed with infectious disease, patient is to complete 2 weeks of IV levofloxacin, IV daptomycin, by mouth Flagyl. She will need to follow-up in the outpatient setting to obtain blood cultures to ensure clearance of MRSA from her bloodstream. Pertinent Studies: KUB Bone scan sacral x-ray Procedures: permacath removal Patient Condition at Discharge: Stable Plan - Discharge Summary New Discharge Prescriptions: New amLODIPine [Norvasc] 5 mg PO DAILY #30 tab cefTRIAXone [Rocephin] 2,000 mg IVPB Q24HR #14 vial DAPTOmycin [Cubicin] 600 mg IVPB Q24H #14 vial Darbepoetin Mckay [Aranesp] 40 mcg SQ Q7D #0 syringe Sodium Bicarbonate Tab 650 mg PO BID #60 tab Continue Heparin Sodium,Porcine [Heparin Sodium] 5,000 unit SQ Q8HR #90 vial Aspirin EC [Ecotrin Low Dose] 81 mg PO DAILY@1700 #30 tablet. Amino Acids/Protein Hydrolys [Pro-Stat Supplement] 30 ml PO BID Pantoprazole [Protonix] 40 mg PO DAILY Metoprolol Tartrate [Lopressor] 25 mg PO BID metroNIDAZOLE [Flagyl] 500 mg PO TID #42 tab Discontinued Levofloxacin [Levaquin] 250 mg PO DAILY Discharge Medication List Aspirin EC [Ecotrin Low Dose] 81 mg PO DAILY@1700 #30 tablet. 11/12/17 [Rx] Heparin Sodium,Porcine [Heparin Sodium] 5,000 unit SQ Q8HR #90 vial 11/12/17 [Rx ] Amino Acids/Protein Hydrolys [Pro-Stat Supplement] 30 ml PO BID 02/22/18 [ History] Pantoprazole [Protonix] 40 mg PO DAILY 02/22/18 [History] Metoprolol Tartrate [Lopressor] 25 mg PO BID 03/09/18 [History] DAPTOmycin [Cubicin] 600 mg IVPB Q24H #14 vial 03/14/18 [Rx] Darbepoetin Mckay [Aranesp] 40 mcg SQ Q7D #0 syringe 03/14/18 [Rx] Sodium Bicarbonate Tab 650 mg PO BID #60 tab 03/14/18 [Rx] amLODIPine [Norvasc] 5 mg PO DAILY #30 tab 03/14/18 [Rx] cefTRIAXone [Rocephin] 2,000 mg IVPB Q24HR #14 vial 03/14/18 [Rx] metroNIDAZOLE [Flagyl] 500 mg PO TID #42 tab 03/14/18 [Rx] Follow up Appointment(s)/Referral(s): Dav Roldan DO [Primary Care Provider] - 1-2 days Pb Rich MD [STAFF PHYSICIAN] - 2 Weeks Marcio Pedersen DO [STAFF PHYSICIAN] - 2 Weeks Ambulatory/Diagnostic Orders: Basic Metabolic Panel [LAB.AMB] Time Frame: 1 Day, Location: None Selected Complete Blood Count w/diff [LAB.AMB] Time Frame: 1 Week, Location: None Selected Ambulatory Miscellaneous Order [MISC.AMB] Time Frame: 1 Week, Location: None Selected Activity/Diet/Wound Care/Special Instructions: Diet: Clear liquid diet and advance. Please follow-up through primary care provider within 1-2 days of discharge. Please follow-up with infectious disease Dr. Franklin within 2 weeks of discharge. Please follow-up with nephrology Dr. Pedersen within 1 week of discharge. Please obtain a CBC, BMP and repeat blood cultures with the information given to you. Please follow these results up with your primary care provider. Discharge Disposition: TRANSFER TO SNF/ECF
[2018-03-14] MEDS: SODIUM CHLORIDE 0.9% 1,000 ML IV SCH (14:52)
[2018-03-14] MEDS: ASPIRIN 81 MG PO SCH (16:24)
[2018-03-14 16:50] LABS: Glucose,Whole Blood 88 mg/dL (75-99)
--- NOTE | 2018-03-14 21:51 | PN ---
PROGRESS NOTE DATE OF SERVICE: 03/14/2018 REASON FOR FOLLOWUP: 1. MRSA bacteremia secondary to PermCath, which has been discontinued. 2. Acute diverticulitis. 3. Stage III sacral pressure ulcer. INTERVAL HISTORY: The patient was seen on rounds this morning. The patient has been afebrile. She is feeling better, breathing comfortably. No nausea or vomiting today. No abdominal pain or any diarrhea. Denies having any chest pain, shortness of breath or cough. PHYSICAL EXAMINATION: Blood pressure 140/100 with a pulse of 72, temperature 97.8. She is 99% on room air. General description is an elderly female lying in bed in no distress. RESPIRATORY SYSTEM: Unlabored breathing. Clear to auscultation anteriorly. HEART: S1, S2. Regular rate and rhythm. ABDOMEN: Soft. No tenderness. LABS: BUN of 14, creatinine 1.36. The blood culture from 03/13 has been negative. Culture from 03/10 has been coagulase-negative staph. DIAGNOSTIC IMPRESSION AND PLAN: 1. Patient with methicillin-resistant Staphylococcus aeruginosa bacteremia. Source of PermCath has been discontinued. She will continue with daptomycin for a total of 4 weeks from her negative blood culture. 2. Patient with acute diverticulitis. Continue outpatient Levaquin therapy. She will be given Rocephin and Flagyl for another 10 days. 3. Sacral pressure ulcer. Local wound care with wound V.A.C., to be changed Saturday, Saturday, Saturday, and close outpatient followup. Plan of care was discussed in detail with the discharging physician. MMODL / IJN: [id number] /
== END 2018-03-14 19:00 | DRG 314 ==
LOC: EC 08:52 → 3NMEDONC 12:23
PROVIDERS: ADMIT Internal Medicine; ATTEND Internal Medicine
PROC: 02PAX3Z Removal of Infusion Device from Heart, External Approach (ICD-10-PCS; principal; 2018-03-13)
DX: T80.211A Bloodstream infection due to central venous catheter, initial encounter (principal); L89.153 Pressure ulcer of sacral region, stage 3; K57.32 Diverticulitis of large intestine without perforation or abscess without bleeding; E87.2 Acidosis; I13.0 Hypertensive heart and chronic kidney disease with heart failure and stage 1 through stage 4 chronic kidney disease, or unspecified chronic kidney disease; I50.32 Chronic diastolic (congestive) heart failure; N17.9 Acute kidney failure, unspecified; N18.4 Chronic kidney disease, stage 4 (severe); B95.62 Methicillin resistant Staphylococcus aureus infection as the cause of diseases classified elsewhere; D63.1 Anemia in chronic kidney disease; E11.22 Type 2 diabetes mellitus with diabetic chronic kidney disease; E11.69 Type 2 diabetes mellitus with other specified complication; E27.9 Disorder of adrenal gland, unspecified; E78.5 Hyperlipidemia, unspecified; E83.42 Hypomagnesemia; E87.6 Hypokalemia; Z79.82 Long term (current) use of aspirin; Z79.899 Other long term (current) drug therapy; Z82.49 Family history of ischemic heart disease and other diseases of the circulatory system; Z83.3 Family history of diabetes mellitus; Z86.14 Personal history of Methicillin resistant Staphylococcus aureus infection; Z87.891 Personal history of nicotine dependence; Z88.0 Allergy status to penicillin
CPT/HCPCS: 36415; 36569; 72220; 74018; 76937; 78315; 80048; 80053; 81001; 82009; 82150; 83605; 83690; 83735; 85025; 85027; 85610; 85652; 85730; 86140; 87040; 87070; 87077; 87150; 87186; 87205; 96361; 96365; 96367; 96375; 96376; 99285

== ENCOUNTER 2019-01-25 17:36 | Inpatient (IN) | payer MEDICARE, OTHER ==
[2019-01-25 18:31] LABS: Basophils % (A) 0 %; Eosinophils % (A) 13 %; HCT 35.8 % (34.0-46.0); HGB 11.7 gm/dL (11.4-16.0); Lymphocytes # (A) 0.7 k/uL (1.0-4.8); Lymphocytes % (A) 10 %; MCHC 32.8 g/dL (31.0-37.0); MCV 88.3 fL (80.0-100.0); Monocytes # (A) 0.4 k/uL (0-1.0); Monocytes % (A) 5 %; Neutrophils # (A) 5.4 k/uL (1.3-7.7); Neutrophils % (A) 71 %; Platelet Count 198 k/uL (150-450); RBC 4.05 m/uL (3.80-5.40); RDW 13.3 % (11.5-15.5); WBC 7.6 k/uL (3.8-10.6)
[2019-01-25 18:39] LABS: INR 0.9 (<1.2)
[2019-01-25 18:40] LABS: Partial Thromboplastin Time 26.2 sec (22.0-30.0); Prothrombin Time 9.5 sec (9.0-12.0)
[2019-01-25 18:43] LABS: Albumin 3.3 g/dL (3.5-5.0); C Reactive Protein 77.8 mg/L (<10.0); Calcium 8.9 mg/dL (8.4-10.2); Potassium 4.6 mmol/L (3.5-5.1); Total Bilirubin 0.3 mg/dL (0.2-1.3); Total Protein 6.6 g/dL (6.3-8.2)
--- NOTE | 2019-01-25 18:50 | ED ---
General Adult HPI - General Source: patient, EMS Mode of arrival: EMS Limitations: no limitations <Noelle Ford - Last Filed: 01/28/19 20:05> <Kelsey Sifuentes - Last Filed: 01/29/19 01:09> - General Chief complaint: Skin/Abscess/Foreign Body Stated complaint: Cellulitis Time Seen by Provider: 01/25/19 17:40 - History of Present Illness Initial comments: Patient is a 68-year-old female, Past medical history of diabetes, hypertension, renal disease, heart failure, presenting to emergency Department with complaints of a wound on the bottom of her left foot x 1 week. Patient is currently at [facility] secondary to weakness. Patient states she has been having bilateral lower leg swelling that has been increasing over the past month. Patient states she first noticed a sore on the bottom of her left foot approximately one week ago and they have been doing wound care. Patient states the redness to her left lower leg has worsened over the past 24 hours so she came in today. Patient denies fever, chills, nausea, vomiting, diarrhea. Patient is not currently on antibiotics. Patient denies chest pain, shortness of breath. Patient states she used to be on dialysis however is not any more. Patient has no other complaints at this time. Upon arrival to the ER, vital signs are stable. (Noelle Giles) - Related Data Home Medications Medication Instructions Recorded Confirmed Metoprolol Tartrate [Lopressor] 25 mg PO BID 03/09/18 01/26/19 Acetaminophen Tab [Tylenol Tab] 650 mg PO Q6H PRN 01/26/19 01/26/19 Aspirin EC [Ecotrin Low Dose] 81 mg PO DAILY 01/26/19 01/26/19 Darbepoetin Mckay [Aranesp] 40 mcg SQ FR 01/26/19 01/26/19 Psyllium Husk 100% [Metamucil 6 gm PO BID PRN 01/26/19 01/26/19 Packet] Previous Rx's Medication Instructions Recorded Sodium Bicarbonate Tab 650 mg PO BID #60 tab 03/14/18 amLODIPine [Norvasc] 5 mg PO DAILY #30 tab 03/14/18 Allergies Allergy/AdvReac Type Severity Reaction Status Date / Time Penicillins Allergy Severe Rash/Hives Verified 01/26/19 08:37 simvastatin [From Zocor] AdvReac Severe Unknown Verified 01/26/19 08:37 pregabalin [From Lyrica] AdvReac Unknown Verified 01/26/19 08:37 tide laundry detergent Allergy Itching Uncoded 01/25/19 17:51 Review of Systems ROS Other: All systems not noted in ROS Statement are negative. <Noelle Ford - Last Filed: 01/28/19 20:05> ROS Other: All systems not noted in ROS Statement are negative. <Kelsey Sifuentes - Last Filed: 01/29/19 01:09> ROS Statement: Those systems with pertinent positive or pertinent negative responses have been documented in the HPI. Past Medical History Past Medical History: Heart Failure, Diabetes Mellitus, Hyperlipidemia, Hypertension, Osteoarthritis (OA), Renal Disease, Skin Disorder Additional Past Medical History / Comment(s): Cellulilus right leg, STAGE lll KINDNEY DISEASE respiratory failure ended with a trach ventilated pressure ulce r on coccyx/right buttock with wound vac treatment, arrived here from er with tubing to wound vac but no machine History of Any Multi-Drug Resistant Organisms: MRSA Date of last positivie culture/infection: 03/09/18 MDRO Source:: BLOOD AND CATH TIP Past Surgical History: Appendectomy, Cholecystectomy Additional Past Surgical History / Comment(s): L OVARIAN CYST, PARTIAL AM PUTATION R FOOT AND R 5TH TOE AND PARTIAL 3RD TOE,CATARACTS BILAT EYES Past Anesthesia/Blood Transfusion Reactions: No Reported Reaction Additional Past Anesthesia/Blood Transfusion Reaction / Comment(s): clausterphobia Past Psychological History: No Psychological Hx Reported Smoking Status: Former smoker Past Alcohol Use History: None Reported Past Drug Use History: None Reported - Past Family History Father Additional Family Medical History / Comment(s): ALCOHOLIC Mother Family Medical History: Cancer, CVA/TIA, Diabetes Mellitus, Myocardial Infarction (ME) Additional Family Medical History / Comment(s): COLON Brother(s) Additional Family Medical History / Comment(s): DRUG DEPENDENCY <Noelle Ford - Last Filed: 01/28/19 20:05> General Exam Limitations: no limitations <Noelle Ford - Last Filed: 01/28/19 20:05> - General Exam Comments Initial Comments: GENERAL: Well-appearing, well-nourished and in no acute distress. HEAD: Atraumatic, normocephalic. EYES: Pupils equal round and reactive to light, extraocular movements intact, sclera anicteric, conjunctiva are normal. ENT: Nares patent, oropharynx clear without exudates. Moist mucous membranes. NECK: Normal range of motion, supple without lymphadenopathy or JVD. LUNGS: Breath sounds clear to auscultation bilaterally and equal. No wheezes rales or rhonchi. HEART: Regular rate and rhythm without murmurs, rubs or gallops. ABDOMEN: Soft, nontender, normoactive bowel sounds. No guarding, no rebound. No masses appreciated. : Deferred EXTREMITIES: Patient has bilateral lower leg edema, L>R. Patient has full range of motion of her left lower extremities. She is neurovascular intact. NEUROLOGICAL: Cranial nerves II through XII grossly intact. Normal speech, normal gait. PSYCH: Normal mood, normal affect. SKIN: Warm, Dry, normal turgor, no rashes. Patient has a stage II ulcer to the plan tar surface of the calcaneus. There is mild active drainage. Patient has surrounding erythema of the left ankle and lower leg. There is no pain with palpation. (Noelle Ford) Course Vital Signs 01/25/19 01/25/19 01/25/19 17:51 19:31 21:25 Temperature 97.6 F 99.1 F 98.5 F Pulse Rate 60 67 72 Respiratory 18 16 18 Rate Blood Pressure 151/66 164/92 162/79 O2 Sat by Pulse 96 98 98 Oximetry Medical Decision Making - Lab Data Result diagrams: 01/27/19 07:12 01/28/19 08:38 <Noelle Ford - Last Filed: 01/28/19 20:05> - Lab Data Result diagrams: 01/27/19 07:12 01/28/19 08:38 <Kelsey Sifuentes - Last Filed: 01/29/19 01:09> - Medical Decision Making Patient is a 68-year-old female presenting with a stage II ulcer of her left calcaneus area. Patient has past medical history of diabetes, neuropathy, renal disease, heart failure. On exam patient has bilateral lower leg edema, left greater than right. Patient has mild cellulitis of the left lower leg and ankle secondary to wound. Patient's lab work reveals creatinine has increased to 3.35 from 2.78, 5 days ago. Lactic acid is 0.6. CRP is 77.8. Given patient's current ulcer and signs of cellulitis as well as increase in creatinine, patient will be admitted for IV antibiotics and JOHN. Patient is in agreement with this plan of care. Case discussed with Dr. Sifuentes who is in agreement with this plan of care. (Noelle Ford) I was available for consultation in the emergency department. The history and physical exam were done by the midlevel provider. I was consulted for this patients care. I reviewed the case with the midlevel provider and based on their presentation of the patient, I agree with the assessment, medical decision making and plan of care as documented. I evaluated the patient myself and agreed with admission. I discussed the case with the admitting doctor. I did add on one dose of Vanco to add coverage for MRSA. Remainder of antibiotics will be chosen by hospitalist/ID if needed Chart was dictated using [employer] dictation software. Attempts were made to correct any dictation errors however some typographical errors may persist. (Kelsey Sifuentes) - Lab Data Lab Results 01/25/19 01/25/19 01/25/19 Range/Units 18:00 18:00 18:00 WBC 7.6 (3.8-10.6) k/uL RBC 4.05 (3.80-5.40) m/uL Hgb 11.7 (11.4-16.0) gm/dL Hct 35.8 (34.0-46.0) % MCV 88.3 (80.0-100.0) fL MCH 29.0 (25.0-35.0) pg MCHC 32.8 (31.0-37.0) g/dL RDW 13.3 (11.5-15.5) % Plt Count 198 (150-450) k/uL Neutrophils % 71 % Lymphocytes % 10 % Monocytes % 5 % Eosinophils % 13 % Basophils % 0 % Neutrophils # 5.4 (1.3-7.7) k/uL Lymphocytes # 0.7 L (1.0-4.8) k/uL Monocytes # 0.4 (0-1.0) k/uL Eosinophils # 1.0 H (0-0.7) k/uL Basophils # 0.0 (0-0.2) k/uL ESR 87 H (0-20) mm/hr PT (9.0-12.0) sec INR (<1.2) APTT (22.0-30.0) sec Sodium 141 (137-145) mmol/L Potassium 4.6 (3.5-5.1) mmol/L Chloride 108 H (98-107) mmol/L Carbon Dioxide 25 (22-30) mmol/L Anion Gap 8 mmol/L BUN 58 H (7-17) mg/dL Creatinine 3.35 H (0.52-1.04) mg/dL Est GFR (CKD-EPI)AfAm 16 (>60 ml/min/1.73 sqM) Est GFR (CKD-EPI)NonAf 14 (>60 ml/min/1.73 sqM) Glucose 139 H (74-99) mg/dL POC Glucose (mg/dL) (75-99) mg/dL POC Glu Revenue Coordinator ID Plasma Lactic Acid Jamar 0.6 L (0.7-2.0) mmol/L Calcium 8.9 (8.4-10.2) mg/dL Iron (50-170) ug/dL TIBC (228-460) ug/dL % Saturation (12.00-45.00) Total Bilirubin 0.3 (0.2-1.3) mg/dL AST 16 (14-36) U/L ALT 17 (9-52) U/L Alkaline Phosphatase 74 (38-126) U/L C-Reactive Protein 77.8 H (<10.0) mg/L Total Protein 6.6 (6.3-8.2) g/dL Albumin 3.3 L (3.5-5.0) g/dL Urine Color Urine Appearance (Clear) Urine pH (5.0-8.0) Ur Specific [place] (1.001-1.035) Urine Protein (Negative) Urine Glucose (UA) (Negative) Urine Ketones (Negative) Urine Blood (Negative) Urine Nitrite (Negative) Urine Bilirubin (Negative) Urine Urobilinogen (<2.0) mg/dL Ur Leukocyte Esterase (Negative) Urine WBC (0-5) /hpf Urine WBC Clumps (None) /hpf Amorphous Sediment (None) /hpf Urine Bacteria (None) /hpf Random Vancomycin ug/mL 01/25/19 01/25/19 01/25/19 Range/Units 18:00 19:55 22:58 WBC (3.8-10.6) k/uL RBC (3.80-5.40) m/uL Hgb (11.4-16.0) gm/dL Hct (34.0-46.0) % MCV (80.0-100.0) fL MCH (25.0-35.0) pg MCHC (31.0-37.0) g/dL RDW (11.5-15.5) % Plt Count (150-450) k/uL Neutrophils % % Lymphocytes % % Monocytes % % Eosinophils % % Basophils % % Neutrophils # (1.3-7.7) k/uL Lymphocytes # (1.0-4.8) k/uL Monocytes # (0-1.0) k/uL Eosinophils # (0-0.7) k/uL Basophils # (0-0.2) k/uL ESR (0-20) mm/hr PT 9.5 (9.0-12.0) sec INR 0.9 (<1.2) APTT 26.2 (22.0-30.0) sec Sodium (137-145) mmol/L Potassium (3.5-5.1) mmol/L Chloride (98-107) mmol/L Carbon Dioxide (22-30) mmol/L Anion Gap mmol/L BUN (7-17) mg/dL Creatinine (0.52-1.04) mg/dL Est GFR (CKD-EPI)AfAm (>60 ml/min/1.73 sqM) Est GFR (CKD-EPI)NonAf (>60 ml/min/1.73 sqM) Glucose (74-99) mg/dL POC Glucose (mg/dL) 176 H (75-99) mg/dL POC Glu Revenue Coordinator ID Ding, Kaia Plasma Lactic Acid Jamar (0.7-2.0) mmol/L Calcium (8.4-10.2) mg/dL Iron (50-170) ug/dL TIBC (228-460) ug/dL % Saturation (12.00-45.00) Total Bilirubin (0.2-1.3) mg/dL AST (14-36) U/L ALT (9-52) U/L Alkaline Phosphatase (38-126) U/L C-Reactive Protein (<10.0) mg/L Total Protein (6.3-8.2) g/dL Albumin (3.5-5.0) g/dL Urine Color Yellow Urine Appearance Cloudy H (Clear) Urine pH 6.0 (5.0-8.0) Ur Specific [place] 1.017 (1.001-1.035) Urine Protein 3+ H (Negative) Urine Glucose (UA) 2+ H (Negative) Urine Ketones Negative (Negative) Urine Blood Small H (Negative) Urine Nitrite Negative (Negative) Urine Bilirubin Negative (Negative) Urine Urobilinogen <2.0 (<2.0) mg/dL Ur Leukocyte Esterase Moderate H (Negative) Urine WBC 103 H (0-5) /hpf Urine WBC Clumps Many H (None) /hpf Amorphous Sediment Moderate H (None) /hpf Urine Bacteria Many H (None) /hpf Random Vancomycin ug/mL 01/26/19 01/26/19 01/26/19 Range/Units 07:35 08:03 12:18 WBC (3.8-10.6) k/uL RBC (3.80-5.40) m/uL Hgb (11.4-16.0) gm/dL Hct (34.0-46.0) % MCV (80.0-100.0) fL MCH (25.0-35.0) pg MCHC (31.0-37.0) g/dL RDW (11.5-15.5) % Plt Count (150-450) k/uL Neutrophils % % Lymphocytes % % Monocytes % % Eosinophils % % Basophils % % Neutrophils # (1.3-7.7) k/uL Lymphocytes # (1.0-4.8) k/uL Monocytes # (0-1.0) k/uL Eosinophils # (0-0.7) k/uL Basophils # (0-0.2) k/uL ESR (0-20) mm/hr PT (9.0-12.0) sec INR (<1.2) APTT (22.0-30.0) sec Sodium 142 (137-145) mmol/L Potassium 4.2 (3.5-5.1) mmol/L Chloride 112 H (98-107) mmol/L Carbon Dioxide 23 (22-30) mmol/L Anion Gap 7 mmol/L BUN 58 H (7-17) mg/dL Creatinine 3.16 H (0.52-1.04) mg/dL Est GFR (CKD-EPI)AfAm 17 (>60 ml/min/1.73 sqM) Est GFR (CKD-EPI)NonAf 15 (>60 ml/min/1.73 sqM) Glucose 95 (74-99) mg/dL POC Glucose (mg/dL) 100 H 109 H (75-99) mg/dL POC Glu Revenue Coordinator Amna Mondragon, Amna Plasma Lactic Acid Jamar (0.7-2.0) mmol/L Calcium 8.3 L (8.4-10.2) mg/dL Iron (50-170) ug/dL TIBC (228-460) ug/dL % Saturation (12.00-45.00) Total Bilirubin (0.2-1.3) mg/dL AST (14-36) U/L ALT (9-52) U/L Alkaline Phosphatase (38-126) U/L C-Reactive Protein (<10.0) mg/L Total Protein (6.3-8.2) g/dL Albumin (3.5-5.0) g/dL Urine Color Urine Appearance (Clear) Urine pH (5.0-8.0) Ur Specific [place] (1.001-1.035) Urine Protein (Negative) Urine Glucose (UA) (Negative) Urine Ketones (Negative) Urine Blood (Negative) Urine Nitrite (Negative) Urine Bilirubin (Negative) Urine Urobilinogen (<2.0) mg/dL Ur Leukocyte Esterase (Negative) Urine WBC (0-5) /hpf Urine WBC Clumps (None) /hpf Amorphous Sediment (None) /hpf Urine Bacteria (None) /hpf Random Vancomycin ug/mL 01/26/19 01/26/19 01/27/19 Range/Units 17:12 20:49 07:12 WBC (3.8-10.6) k/uL RBC (3.80-5.40) m/uL Hgb (11.4-16.0) gm/dL Hct (34.0-46.0) % MCV (80.0-100.0) fL MCH (25.0-35.0) pg MCHC (31.0-37.0) g/dL RDW (11.5-15.5) % Plt Count (150-450) k/uL Neutrophils % % Lymphocytes % % Monocytes % % Eosinophils % % Basophils % % Neutrophils # (1.3-7.7) k/uL Lymphocytes # (1.0-4.8) k/uL Monocytes # (0-1.0) k/uL Eosinophils # (0-0.7) k/uL Basophils # (0-0.2) k/uL ESR (0-20) mm/hr PT (9.0-12.0) sec INR (<1.2) APTT (22.0-30.0) sec Sodium 141 (137-145) mmol/L Potassium 4.3 (3.5-5.1) mmol/L Chloride 112 H (98-107) mmol/L Carbon Dioxide 24 (22-30) mmol/L Anion Gap 5 mmol/L BUN 60 H (7-17) mg/dL Creatinine 3.35 H (0.52-1.04) mg/dL Est GFR (CKD-EPI)AfAm 16 (>60 ml/min/1.73 sqM) Est GFR (CKD-EPI)NonAf 14 (>60 ml/min/1.73 sqM) Glucose 92 (74-99) mg/dL POC Glucose (mg/dL) 131 H 158 H (75-99) mg/dL POC Glu Revenue Coordinator ID Amna Ragland Ulisesmadeline Lalitha Plasma Lactic Acid Jamar (0.7-2.0) mmol/L Calcium 8.2 L (8.4-10.2) mg/dL Iron (50-170) ug/dL TIBC (228-460) ug/dL % Saturation (12.00-45.00) Total Bilirubin 0.3 (0.2-1.3) mg/dL AST 13 L (14-36) U/L ALT 20 (9-52) U/L Alkaline Phosphatase 52 (38-126) U/L C-Reactive Protein (<10.0) mg/L Total Protein 5.1 L (6.3-8.2) g/dL Albumin 2.4 L (3.5-5.0) g/dL Urine Color Urine Appearance (Clear) Urine pH (5.0-8.0) Ur Specific [place] (1.001-1.035) Urine Protein (Negative) Urine Glucose (UA) (Negative) Urine Ketones (Negative) Urine Blood (Negative) Urine Nitrite (Negative) Urine Bilirubin (Negative) Urine Urobilinogen (<2.0) mg/dL Ur Leukocyte Esterase (Negative) Urine WBC (0-5) /hpf Urine WBC Clumps (None) /hpf Amorphous Sediment (None) /hpf Urine Bacteria (None) /hpf Random Vancomycin 23.4 ug/mL 01/27/19 01/27/19 01/27/19 Range/Units 07:12 07:14 07:30 WBC 5.7 (3.8-10.6) k/uL RBC 3.16 L (3.80-5.40) m/uL Hgb 9.4 L D (11.4-16.0) gm/dL Hct 28.2 L (34.0-46.0) % MCV 89.3 (80.0-100.0) fL MCH 29.7 (25.0-35.0) pg MCHC 33.2 (31.0-37.0) g/dL RDW 12.9 (11.5-15.5) % Plt Count 168 (150-450) k/uL Neutrophils % 65 % Lymphocytes % 14 % Monocytes % 5 % Eosinophils % 14 % Basophils % 0 % Neutrophils # 3.7 (1.3-7.7) k/uL Lymphocytes # 0.8 L (1.0-4.8) k/uL Monocytes # 0.3 (0-1.0) k/uL Eosinophils # 0.8 H (0-0.7) k/uL Basophils # 0.0 (0-0.2) k/uL ESR (0-20) mm/hr PT (9.0-12.0) sec INR (<1.2) APTT (22.0-30.0) sec Sodium (137-145) mmol/L Potassium (3.5-5.1) mmol/L Chloride (98-107) mmol/L Carbon Dioxide (22-30) mmol/L Anion Gap mmol/L BUN (7-17) mg/dL Creatinine (0.52-1.04) mg/dL Est GFR (CKD-EPI)AfAm (>60 ml/min/1.73 sqM) Est GFR (CKD-EPI)NonAf (>60 ml/min/1.73 sqM) Glucose (74-99) mg/dL POC Glucose (mg/dL) 95 (75-99) mg/dL POC Glu Revenue Coordinator ID Nia Samson Plasma Lactic Acid Jamar (0.7-2.0) mmol/L Calcium (8.4-10.2) mg/dL Iron 31 L (50-170) ug/dL TIBC 188 L (228-460) ug/dL % Saturation 16.49 (12.00-45.00) Total Bilirubin (0.2-1.3) mg/dL AST (14-36) U/L ALT (9-52) U/L Alkaline Phosphatase (38-126) U/L C-Reactive Protein (<10.0) mg/L Total Protein (6.3-8.2) g/dL Albumin (3.5-5.0) g/dL Urine Color Urine Appearance (Clear) Urine pH (5.0-8.0) Ur Specific [place] (1.001-1.035) Urine Protein (Negative) Urine Glucose (UA) (Negative) Urine Ketones (Negative) Urine Blood (Negative) Urine Nitrite (Negative) Urine Bilirubin (Negative) Urine Urobilinogen (<2.0) mg/dL Ur Leukocyte Esterase (Negative) Urine WBC (0-5) /hpf Urine WBC Clumps (None) /hpf Amorphous Sediment (None) /hpf Urine Bacteria (None) /hpf Random Vancomycin ug/mL Disposition Is patient prescribed a controlled substance at d/c from ED?: No Decision Date: 01/25/19 Decision Time: 19:48 <Noelle Ford - Last Filed: 01/28/19 20:05> <Kelsey Sifuentes - Last Filed: 01/29/19 01:09> Clinical Impression: Acute kidney injury superimposed on CKD, Wound of left foot Disposition: ADMITTED IP TO THIS HOSP Condition: Stable
[2019-01-25 19:42] LABS: Erythrocyte Sedimentation Rate 87 mm/hr (0-20)
[2019-01-25] MEDS ORDERED: traMADol 50 MG TAB PO PRN (20:08)
[2019-01-25] MEDS ORDERED: NALOXONE 0.4 MG/ML 1 ML VIAL IV PRN (20:08)
[2019-01-25] MEDS ORDERED: ACETAMINOPHEN TAB 325 MG TAB PO PRN (20:08)
[2019-01-25] MEDS ORDERED: SODIUM CHLORIDE 0.9% 500 ML 500 ML IV STA (20:10)
[2019-01-25 20:15] LABS: Amorphous Sediment,Urine Moderate /hpf; Appearance,Urine Cloudy (Clear); Bacteria,Urine Many /hpf; Bilirubin,Urine Negative (Negative); Blood,Urine Small (Negative); Color,Urine Yellow; Glucose,Urine (UA) 2+ (Negative); Ketones,Urine Negative (Negative); Leukocyte Esterase,Urine Moderate (Negative); Nitrite,Urine Negative (Negative); Protein,Urine 3+ (Negative); Specific Gravity,Urine 1.017 (1.001-1.035); Urobilinogen,Urine <2.0 mg/dL (<2.0)
[2019-01-25] MEDS ORDERED: VANCOMYCIN 1,000 MG in SODIUM CHLORIDE 0.9% 250 ML IVPB STA (20:43)
[2019-01-25] MEDS ORDERED: VANCOMYCIN 1,750 MG in SODIUM CHLORIDE 0.9% 500 ML 500 ML IVPB STA (20:46)
[2019-01-25] MEDS ORDERED: VANCOMYCIN IV PER PHARMACY 1 EACH MISC MISCELLANE PRN (20:48)
[2019-01-25] MEDS: SODIUM CHLORIDE 0.9% 1,000 ML IV SCH (22:11)
[2019-01-25 22:59] VITALS: BMI 37.3
[2019-01-25 23:05] LABS: Glucose,Whole Blood 176 mg/dL (75-99)
[2019-01-26] MEDS: amLODIPine 5 MG TAB PO SCH (07:28)
[2019-01-26 07:43] LABS: Glucose,Whole Blood 100 mg/dL (75-99)
[2019-01-26] MEDS: INSULIN ASPART (NovoLOG) 100 UNIT/ML VIAL SQ SCH ×4 (07:56→21:32)
[2019-01-26 08:44] LABS: Calcium 8.3 mg/dL (8.4-10.2); Potassium 4.2 mmol/L (3.5-5.1)
[2019-01-26] MEDS ORDERED: METOPROLOL TARTRATE 25 MG TAB PO SCH (09:00)
[2019-01-26] MEDS: SODIUM CHLORIDE 0.9% 1,000 ML IV SCH (09:12)
[2019-01-26] MEDS ORDERED: FUROSEMIDE 10 MG/ML 4 ML VIAL IV STA (10:22)
[2019-01-26] MEDS ORDERED: VANCOMYCIN 1,750 MG in SODIUM CHLORIDE 0.9% 500 ML 500 ML IVPB ONE (12:00)
[2019-01-26 12:20] LABS: Glucose,Whole Blood 109 mg/dL (75-99)
--- NOTE | 2019-01-26 13:19 | P.HPIM ---
History of Present Illness 68-year-old female was brought in here as a wound in the left ankle area. Patient was sent in him here from enlarged. Although patient doesn't have any fever, no leukocytosis patient denied any increased pain in that area had incre ased redness. Patient appears to have elevated serum creatinine of 3.35 baseline appears to be around 2.7-2.9 patient does have end-stage renal disease diuretic nephropathy. Patient does have some my redness and appears to have stage II ulcer in the left ankle area. Infectious disease was consulted patient to does have swelling in both legs and some redness in the right leg as well no significant increased local is of temperature. Patient was given a dose of Lasix by nephrology for peripheral edema. Infectious disease was consulted. Review of Systems REVIEW OF SYSTEMS: CONSTITUTIONAL: No fever, no malaise, no fatigue. HEENT: No recent visual problems or hearing problems. Denied any sore throat. CARDIOVASCULAR: No chest pain, orthopnea, PND, no palpitations, no syncope. PULMONARY: No shortness of breath, no cough, no hemoptysis. GASTROINTESTINAL: No diarrhea, no nausea, no vomiting, no abdominal pain. NEUROLOGICAL: No headaches, no weakness, no numbness. HEMATOLOGICAL: Denies any bleeding or petechiae. GENITOURINARY: Denies any burning micturition, frequency, or urgency. MUSCULOSKELETAL/RHEUMATOLOGICAL: Denies any joint pain, swelling, or any muscle pain. ENDOCRINE: Denies any polyuria or polydipsia. The rest of the 14-point review of systems is negative. Past Medical History Past Medical History: Heart Failure, Diabetes Mellitus, Hyperlipidemia, Hypertension, Osteoarthritis (OA), Renal Disease, Skin Disorder Additional Past Medical History / Comment(s): Cellulilus right leg, STAGE lll KINDNEY DISEASE respiratory failure ended with a trach ventilated pressure ulcer on coccyx/right buttock with wound vac treatment, arrived here from er with tubing to wound vac but no machine History of Any Multi-Drug Resistant Organisms: MRSA Date of last positivie culture/infection: 03/09/18 MDRO Source:: BLOOD AND CATH TIP Past Surgical History: Appendectomy, Cholecystectomy Additional Past Surgical History / Comment(s): L OVARIAN CYST, 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,CATARACTS BILAT EYES Past Anesthesia/Blood Transfusion Reactions: No Reported Reaction Additional Past Anesthesia/Blood Transfusion Reaction / Comment(s): clausterphobia Past Psychological History: No Psychological Hx Reported Additional Psychological History / Comment(s): and lives independently currently an extended care because of her debility from her heel ulcers and need for care and rehab. As noted was a smoker in the past. She doesn't have a history of stiff and alcohol use. 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 No international travel. no experience. Has her pet cat, Guille Smoking Status: Former smoker Past Alcohol Use History: None Reported Additional Past Alcohol Use History / Comment(s): started smoking age 21(1971) and quit 1991, smoked 1 ppd Past Drug Use History: None Reported - Past Family History Father Additional Family Medical History / Comment(s): ALCOHOLIC Mother Family Medical History: Cancer, CVA/TIA, Diabetes Mellitus, Myocardial Infarction (NM) Additional Family Medical History / Comment(s): COLON Brother(s) Additional Family Medical History / Comment(s): DRUG DEPENDENCY Medications and Allergies Home Medications Medication Instructions Recorded Confirmed Type Metoprolol Tartrate [Lopressor] 25 mg PO BID 03/09/18 01/26/19 History Sodium Bicarbonate Tab 650 mg PO BID #60 tab 03/14/18 01/26/19 Rx amLODIPine [Norvasc] 5 mg PO DAILY #30 tab 03/14/18 01/26/19 Rx Acetaminophen Tab [Tylenol Tab] 650 mg PO Q6H PRN 01/26/19 01/26/19 History Aspirin EC [Ecotrin Low Dose] 81 mg PO DAILY 01/26/19 01/26/19 History Darbepoetin Mckay [Aranesp] 40 mcg SQ FR 01/26/19 01/26/19 History Psyllium Husk 100% [Metamucil 6 gm PO BID PRN 01/26/19 01/26/19 History Packet] Allergies Allergy/AdvReac Type Severity Reaction Status Date / Time Penicillins Allergy Severe Rash/Hives Verified 01/26/19 08:37 simvastatin [From Zocor] AdvReac Severe Unknown Verified 01/26/19 08:37 pregabalin [From Lyrica] AdvReac Unknown Verified 01/26/19 08:37 tide laundry detergent Allergy Itching Uncoded 01/25/19 17:51 Physical Exam Vitals: Vital Signs Temp Pulse Pulse Resp BP BP Pulse Ox 01/26/19 07:07 99.0 F 71 18 165/70 93 L 01/26/19 01:24 175/75 01/25/19 23:56 97.8 F 68 18 174/81 97 01/25/19 21:25 98.5 F 72 18 162/79 98 01/25/19 19:31 99.1 F 67 16 164/92 98 01/25/19 17:51 97.6 F 60 18 151/66 96 Intake and Output 01/25/19 01/26/19 01/26/19 22:59 06:59 14:59 Intake Total 500 Balance 500 Intake: Amount of Fluid Infused ( 500 ml) Other: Voiding Method Diaper Diaper # Voids 0 2 2 Weight 117.934 kg PHYSICAL EXAMINATION: GENERAL: The patient is alert and oriented x3, not in any acute distress. Well developed, well nourished. HEENT: Pupils are round and equally reacting to light. EOMI. No scleral icterus. No conjunctival pallor. Normocephalic, atraumatic. No pharyngeal erythema. No thyromegaly. CARDIOVASCULAR: S1 and S2 present. No murmurs, rubs, or gallops. PULMONARY: Chest is clear to auscultation, no wheezing or crackles. ABDOMEN: Soft, nontender, nondistended, normoactive bowel sounds. No palpable organomegaly. MUSCULOSKELETAL: No joint swelling or deformity. EXTREMITIES: No cyanosis, clubbing, bilateral pedal edema. NEUROLOGICAL: Gross neurological examination did not reveal any focal deficits. SKIN: Bilaterally redness in both legs with a stage II ulcer in the left ankle area. Results CBC & Chem 7: 01/25/19 18:00 01/26/19 08:03 Labs: Abnormal Lab Results - Last 24 Hours (Table) 01/25/19 01/25/19 01/25/19 Range/Units 18:00 18:00 18:00 Lymphocytes # 0.7 L (1.0-4.8) k/uL Eosinophils # 1.0 H (0-0.7) k/uL ESR 87 H (0-20) mm/hr Chloride 108 H (98-107) mmol/L BUN 58 H (7-17) mg/dL Creatinine 3.35 H (0.52-1.04) mg/dL Glucose 139 H (74-99) mg/dL POC Glucose (mg/dL) (75-99) mg/dL Plasma Lactic Acid Jamar 0.6 L (0.7-2.0) mmol/L Calcium (8.4-10.2) mg/dL C-Reactive Protein 77.8 H (<10.0) mg/L Albumin 3.3 L (3.5-5.0) g/dL Urine Appearance (Clear) Urine Protein (Negative) Urine Glucose (UA) (Negative) Urine Blood (Negative) Ur Leukocyte Esterase (Negative) Urine WBC (0-5) /hpf Urine WBC Clumps (None) /hpf Amorphous Sediment (None) /hpf Urine Bacteria (None) /hpf 01/25/19 01/25/19 01/26/19 Range/Units 19:55 22:58 07:35 Lymphocytes # (1.0-4.8) k/uL Eosinophils # (0-0.7) k/uL ESR (0-20) mm/hr Chloride (98-107) mmol/L BUN (7-17) mg/dL Creatinine (0.52-1.04) mg/dL Glucose (74-99) mg/dL POC Glucose (mg/dL) 176 H 100 H (75-99) mg/dL Plasma Lactic Acid Jamar (0.7-2.0) mmol/L Calcium (8.4-10.2) mg/dL C-Reactive Protein (<10.0) mg/L Albumin (3.5-5.0) g/dL Urine Appearance Cloudy H (Clear) Urine Protein 3+ H (Negative) Urine Glucose (UA) 2+ H (Negative) Urine Blood Small H (Negative) Ur Leukocyte Esterase Moderate H (Negative) Urine WBC 103 H (0-5) /hpf Urine WBC Clumps Many H (None) /hpf Amorphous Sediment Moderate H (None) /hpf Urine Bacteria Many H (None) /hpf 01/26/19 01/26/19 Range/Units 08:03 12:18 Lymphocytes # (1.0-4.8) k/uL Eosinophils # (0-0.7) k/uL ESR (0-20) mm/hr Chloride 112 H (98-107) mmol/L BUN 58 H (7-17) mg/dL Creatinine 3.16 H (0.52-1.04) mg/dL Glucose (74-99) mg/dL POC Glucose (mg/dL) 109 H (75-99) mg/dL Plasma Lactic Acid Jamar (0.7-2.0) mmol/L Calcium 8.3 L (8.4-10.2) mg/dL C-Reactive Protein (<10.0) mg/L Albumin (3.5-5.0) g/dL Urine Appearance (Clear) Urine Protein (Negative) Urine Glucose (UA) (Negative) Urine Blood (Negative) Ur Leukocyte Esterase (Negative) Urine WBC (0-5) /hpf Urine WBC Clumps (None) /hpf Amorphous Sediment (None) /hpf Urine Bacteria (None) /hpf Microbiology - Last 24 Hours (Table) 01/25/19 18:00 Gram Stain - Preliminary Foot - Left Wound Culture - Preliminary 01/25/19 19:55 Urine Culture - Preliminary Urine,Catheterized Thrombosis Risk Factor Assmnt - Choose All That Apply Any of the Below Risk Factors Present?: No Each Risk Factor Represents 2 Points: Age 61-74 years Thrombosis Risk Factor Assessment Total Risk Factor Score: 2 Thrombosis Risk Factor Assessment Level: Low Risk Assessment and Plan Plan: -Possible infected ulcers in the left ankle area: Infectious disease was consulted wound care will evaluate the patient as well. Patient will be continued on vancomycin for that the patient regarding antibiotics and further care as per Dr. Bah infectious disease. Chronic kidney disease stage IV with possible mild acute renal dysfunction: Patient received Lasix which was ordered by nephrology for prerenal azotemia from volume overload which is again secondary to venous insufficiency. Patient will be continued on sodium bicarbonate. -Type 2 diabetes mellitus with diabetic nephropathy and stage IV chronic kidney disease next and #10 hyperlipidemia -Hypertension
--- NOTE | 2019-01-26 14:55 | CONS ---
CONSULTATION REASON FOR CONSULT: Renal failure. HISTORY OF PRESENT ILLNESS: Patient is a 68-year-old female who was admitted to the hospital with complaints of increasing swelling in the lower extremities. She is currently at [facility] and she stated that her left foot was hurting for about a week, and there was a wound which was progressively getting worse. Patient denied any fever or chills. No nausea, vomiting or abdominal pain. Patient does have chronic kidney disease, NKF stage IV with previous creatinine at about 2.1-2.3 mg/dL for baseline creatinine in September and December of 2018. Etiology is diabetic nephropathy and nephrosclerosis. Currently patient is maintained on IV fluids. her creatinine was 3.35 on initial admission down to 3.16 today. However, patient states her legs are significantly more swollen. She denies any shortness of breath. No history of use of NSAIDs prior to admission. Patient is maintained on Norvasc at home prior to admission. PAST MEDICAL HISTORY: CKD stage IV and type 2 diabetes, hyperlipidemia, hypertension, osteoarthritis, history of vent-dependent respiratory failure, history of MRSA infection in the foot. PAST SURGICAL HISTORY: Appendectomy, cholecystectomy, left ovarian cyst surgery, partial amputation right foot and right fifth toe, cataract surgeries. SOCIAL HISTORY: Patient is a former smoker. No history of drug abuse or alcohol abuse. MEDICATIONS: At home prior to admission at the long-term included Norvasc, sodium bicarb, Lopressor, Aranesp, Tylenol, aspirin. REVIEW OF SYSTEMS: As per HPI. Other systems negative. PHYSICAL EXAMINATION: Patient is currently comfortable, awake. She is not in any acute distress. Blood pressure was 165/70, heart rate 71 per minute. She is afebrile. Examination of the heart, S1, S2. Examination of the lungs, decreased breath sounds at bases. Abdomen is soft, nontender, obese. Examination of the lower extremities shows 2+ edema bilaterally. Left foot is currently wrapped. [employer]ING [employer] exam grossly intact. LABS: Show sodium 142, potassium 4.2, chloride 112, BUN 58, creatinine 3.16. UA shows 3+ protein, 2+ glucose. WBC is 103. ASSESSMENT: 1. Acute kidney injury, most likely cardiorenal and associated with underlying infection, currently nonoliguric. However, patient states her urine output is low. I will discontinue the IV fluids. We will give her Lasix IV push x1. Monitor urine output accurately. Check a chest x-ray and repeat labs in a.m. Avoid nephrotoxic agents. Avoid hypotension. 2. Hypertension, partly volume sensitive given the significant edema I will discontinue the Norvasc and we can increase the Lopressor. 3. History of metabolic acidosis maintained on sodium bicarb. However, at this time, patient does not have any significant acidosis. We can maintain her off sodium bicarb. 4. Left foot wound maintained on vancomycin. Need to monitor levels closely, given the worsening renal failure. 5. Chronic kidney disease, stage IV, secondary to diabetic nephropathy, nephrosclerosis, baseline creatinine about 2.1-2.3 mg/dL as of September and December of 2018. 6. Pyuria. Follow up on urine cultures. PLAN: Discontinue IV fluids, Lasix IV push x1. Monitor urine output accurately. Check chest x-ray. Consider discontinuation of Norvasc given the significant lower extremity edema. We can increase the Lopressor to 50 mg b.i.d. Repeat labs in a.m. Check post- void residual to rule out urine retention. Continue empiric antibiotics. Thank you for this consultation. Will continue to follow the patient with you during her hospitalization. MMODL / IJN: [id number] /
[2019-01-26 17:15] LABS: Glucose,Whole Blood 131 mg/dL (75-99)
[2019-01-26 21:01] LABS: Glucose,Whole Blood 158 mg/dL (75-99)
[2019-01-26] MEDS: METOPROLOL TARTRATE 50 MG TAB PO SCH (21:41)
--- NOTE | 2019-01-26 23:13 | P.CONS ---
History of Present Illness - Reason for Consult Consult date: 01/26/19 - Chief Complaint left foot wound - History of Present Illness 68 year old woman well known to the ID service related to her many hospitalizations related to her diabetes and complications. She was on hemodialysis but recovered renal function and now is monitored by nephrology. She was doing relatively well when she had the sudden onset of a lesion on the plantar surface of the left foot. It With some scant drainage and she developed some swelling to the left lower extremity with some erythema. She was sent from the [facility] facility for further evaluation. Because of her history of multiple diabetic foot ulcerations in the past and even concerned foot loss at one point in time consult was requested. The patient does not truly know what happened of the foot. She was out shopping wearing a slipper and the next day is when she noticed that there was a wound on the plantar surface that had some drainage. She did the swelling to the limb and sought care. She does not believe that she says significant fevers chills or rigors or sweats. Feels better today. Review of Systems HEENT:Denies headache or acute visual change. Denies sinus or mouth di scomforts. Denies neck stiffness or pain. Denies significant oral cavity pain. Denies difficulty on swallowing. Lungs: Denies significant shortness of breath, cough, sputum production, or hemoptysis. Cardiovascular: Denies significant shortness of breath, chest pain, chest wall pain, orthopnea, dyspnea on exertion, syncope Gastrointestinal:Denies nausea, vomiting, diarrhea, constipation, hematemesis, melena, hematochezia. No no significant change of bowel habit noticed. Musculoskeletal: denies significant myalgias or arthralgias. No new joint swelling. Denies new back pain. Skin: As per the HPI new wound to the left foot plantar surface with swelling and erythema to the limb Neuro: Denies headache or visual change. Denies any new onset weakness or difficulty with ambulation. Denies falls or seizures. Psychiatric:Denies anxiety or depression. Endocrine: Denies significant fatigue, denies significant weight loss or weight gain. Past Medical History Past Medical History: Heart Failure, Diabetes Mellitus, Hyperlipidemia, Hyper tension, Osteoarthritis (OA), Renal Disease, Skin Disorder Additional Past Medical History / Comment(s): Cellulilus right leg, STAGE lll KINDNEY DISEASE respiratory failure ended with a trach ventilated pressure ulcer on coccyx/right buttock with wound vac treatment, arrived here from er with tubing to wound vac but no machine History of Any Multi-Drug Resistant Organisms: MRSA Year Discovered:: 03/09/18 MDRO Source:: BLOOD AND CATH TIP Past Surgical History: Appendectomy, Cholecystectomy Additional Past Surgical History / Comment(s): L OVARIAN CYST, 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 As noted was a smoker in the past. She doesn't have a history of alcohol use. 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 No international travel. no experience. Has her pet cat, Guille was given away when she lost her apt. Smoking Status: Former smoker Past Alcohol Use History: None Reported Additional Past Alcohol Use History / Comment(s): started smoking age 21(1971) and quit 1991, smoked 1 ppd Past Drug Use History: None Reported - Past Family History Father Additional Family Medical History / Comment(s): ALCOHOLIC Mother Family Medical History: Cancer, CVA/TIA, Diabetes Mellitus, Myocardial Infarction (NH) Additional Family Medical History / Comment(s): COLON Brother(s) Additional Family Medical History / Comment(s): DRUG DEPENDENCY Medications and Allergies Home Medications and Allergies Comment(s): Current Medications Acetaminophen (Tylenol Tab) 650 mg PO Q6HR PRN PRN Reason: Mild Pain or Fever > 100.5 Amlodipine Besylate (Norvasc) 5 mg PO DAILY [facility] Last Admin: 01/26/19 07:28 Dose: 5 mg Documented by: Daptomycin 500 mg/ Sodium (Chloride) 50 mls @ 100 mls/hr IVPB Q48H [facility]; Protocol Insulin Aspart (Novolog) 0 unit SQ ACHS [facility]; Protocol Last Admin: 01/26/19 21:32 Dose: 1 unit Documented by: Metoprolol Tartrate (Lopressor) 50 mg PO BID [facility] Last Admin: 01/26/19 21:41 Dose: 50 mg Documented by: Naloxone HCl (Narcan) 0.2 mg IV Q2M PRN PRN Reason: Opioid Reversal Tramadol HCl (Ultram) 50 mg PO Q6H PRN PRN Reason: Moderate Pain Home Medications Medication Instructions Recorded Confirmed Type Metoprolol Tartrate [Lopressor] 25 mg PO BID 03/09/18 01/26/19 History Sodium Bicarbonate Tab 650 mg PO BID #60 tab 03/14/18 01/26/19 Rx amLODIPine [Norvasc] 5 mg PO DAILY #30 tab 03/14/18 01/26/19 Rx Acetaminophen Tab [Tylenol Tab] 650 mg PO Q6H PRN 01/26/19 01/26/19 History Aspirin EC [Ecotrin Low Dose] 81 mg PO DAILY 01/26/19 01/26/19 History Darbepoetin Mckay [Aranesp] 40 mcg SQ FR 01/26/19 01/26/19 History Psyllium Husk 100% [Metamucil 6 gm PO BID PRN 01/26/19 01/26/19 History Packet] Allergies Allergy/AdvReac Type Severity Reaction Status Date / Time Penicillins Allergy Severe Rash/Hives Verified 01/26/19 08:37 simvastatin [From Zocor] AdvReac Severe Unknown Verified 01/26/19 08:37 pregabalin [From Lyrica] AdvReac Unknown Verified 01/26/19 08:37 tide laundry detergent Allergy Itching Uncoded 01/25/19 17:51 Physical Exam Vitals: Vital Signs Temp Pulse Resp BP Pulse Ox 01/26/19 15:38 98.2 F 64 16 136/53 94 L 01/26/19 07:07 99.0 F 71 18 165/70 93 L 01/26/19 01:24 175/75 01/25/19 23:56 97.8 F 68 18 174/81 97 Intake and Output 01/26/19 01/26/19 01/26/19 06:59 14:59 22:59 Other: Voiding Method Diaper Diaper Diaper # Voids 2 2 HEENT: Anicteric conjunctiva are pink and moist nasal mucosa grossly intact w ithout significant lesions, there is no thrush. Neck: The neck is supple without significant lymphadenopathy or thyromegaly. Lungs: Good bilateral air entry without significant crackles or wheezing. There is no significant bronchial sounds. There is no egophony or dullness. Heart: Regular rate and rhythm with an audible S1-S2, no S3 no S4. There is no significant murmur click or rub, PMI was nondisplaced. Abdomen: obese,Positive bowel sounds soft and nontender without palpable masses or organomegaly. There was no guarding or rebound. Extremities: The upper extremities have excellent pulses they are symmetric, no significant petechiae or telangiectasia. No splinter hemorrhages were noted. The lower extremities have only minimal edema. The left lower extremity shows evidence of the wound to the plantar surface of the foot please see the nursing photography. Currently there is no significant drainage as it was earlier. There is still some residual swelling and erythema to the foot and lower leg but is are improved as noted by the lack of edema and some of the linear wrinkles ar e present. Neuro: Awake alert oriented to person place and time. There are no acute new gross focal sensory motor deficits. Results CBC & Chem 7: 01/25/19 18:00 01/26/19 08:03 Labs: Abnormal Lab Results - Last 24 Hours (Table) 01/25/19 01/26/19 01/26/19 Range/Units 22:58 07:35 08:03 Chloride 112 H (98-107) mmol/L BUN 58 H (7-17) mg/dL Creatinine 3.16 H (0.52-1.04) mg/dL POC Glucose (mg/dL) 176 H 100 H (75-99) mg/dL Calcium 8.3 L (8.4-10.2) mg/dL 01/26/19 01/26/19 01/26/19 Range/Units 12:18 17:12 20:49 Chloride (98-107) mmol/L BUN (7-17) mg/dL Creatinine (0.52-1.04) mg/dL POC Glucose (mg/dL) 109 H 131 H 158 H (75-99) mg/dL Calcium (8.4-10.2) mg/dL Microbiology - Last 24 Hours (Table) 01/25/19 18:00 Gram Stain - Preliminary Foot - Left Wound Culture - Preliminary Presumptive Staph aureus Gram Neg Bacilli 01/25/19 19:55 Urine Culture - Preliminary Urine,Catheterized Gram Neg Bacilli Laboratory Results WBC 7.6 k/uL (3.8-10.6) 01/25/19 18:00 RBC 4.05 m/uL (3.80-5.40) 01/25/19 18:00 Hgb 11.7 gm/dL (11.4-16.0) 01/25/19 18:00 Hct 35.8 % (34.0-46.0) 01/25/19 18:00 MCV 88.3 fL (80.0-100.0) 01/25/19 18:00 MCH 29.0 pg (25.0-35.0) 01/25/19 18:00 MCHC 32.8 g/dL (31.0-37.0) 01/25/19 18:00 RDW 13.3 % (11.5-15.5) 01/25/19 18:00 Plt Count 198 k/uL (150-450) 01/25/19 18:00 Neutrophils % 71 % 01/25/19 18:00 Lymphocytes % 10 % 01/25/19 18:00 Monocytes % 5 % 01/25/19 18:00 Eosinophils % 13 % 01/25/19 18:00 Basophils % 0 % 01/25/19 18:00 Neutrophils # 5.4 k/uL (1.3-7.7) 01/25/19 18:00 Lymphocytes # 0.7 k/uL (1.0-4.8) L 01/25/19 18:00 Monocytes # 0.4 k/uL (0-1.0) 01/25/19 18:00 Eosinophils # 1.0 k/uL (0-0.7) H 01/25/19 18:00 Basophils # 0.0 k/uL (0-0.2) 01/25/19 18:00 ESR 87 mm/hr (0-20) H 01/25/19 18:00 PT 9.5 sec (9.0-12.0) 01/25/19 18:00 INR 0.9 (<1.2) 01/25/19 18:00 APTT 26.2 sec (22.0-30.0) 01/25/19 18:00 Sodium 142 mmol/L (137-145) 01/26/19 08:03 Potassium 4.2 mmol/L (3.5-5.1) 01/26/19 08:03 Chloride 112 mmol/L (98-107) H 01/26/19 08:03 Carbon Dioxide 23 mmol/L (22-30) 01/26/19 08:03 Anion Gap 7 mmol/L 01/26/19 08:03 BUN 58 mg/dL (7-17) H 01/26/19 08:03 Creatinine 3.16 mg/dL (0.52-1.04) H 01/26/19 08:03 Est GFR (CKD-EPI)AfAm 17 (>60 ml/min/1.73 sqM) 01/26/19 08:03 Est GFR (CKD-EPI)NonAf 15 (>60 ml/min/1.73 sqM) 01/26/19 08:03 Glucose 95 mg/dL (74-99) 01/26/19 08:03 POC Glucose (mg/dL) 158 mg/dL (75-99) H 01/26/19 20:49 POC Glu Wilton Weaver ID Lalitha Deleon 01/26/19 20:49 Plasma Lactic Acid Jamar 0.6 mmol/L (0.7-2.0) L 01/25/19 18:00 Calcium 8.3 mg/dL (8.4-10.2) L 01/26/19 08:03 Total Bilirubin 0.3 mg/dL (0.2-1.3) 01/25/19 18:00 AST 16 U/L (14-36) 01/25/19 18:00 ALT 17 U/L (9-52) 01/25/19 18:00 Alkaline Phosphatase 74 U/L (38-126) 01/25/19 18:00 C-Reactive Protein 77.8 mg/L (<10.0) H 01/25/19 18:00 Total Protein 6.6 g/dL (6.3-8.2) 01/25/19 18:00 Albumin 3.3 g/dL (3.5-5.0) L 01/25/19 18:00 Urine Color Yellow 01/25/19 19:55 Urine Appearance Cloudy (Clear) H 01/25/19 19:55 Urine pH 6.0 (5.0-8.0) 01/25/19 19:55 Ur Specific Labadie 1.017 (1.001-1.035) 01/25/19 19:55 Urine Protein 3+ (Negative) H 01/25/19 19:55 Urine Glucose (UA) 2+ (Negative) H 01/25/19 19:55 Urine Ketones Negative (Negative) 01/25/19 19:55 Urine Blood Small (Negative) H 01/25/19 19:55 Urine Nitrite Negative (Negative) 01/25/19 19:55 Urine Bilirubin Negative (Negative) 01/25/19 19:55 Urine Urobilinogen <2.0 mg/dL (<2.0) 01/25/19 19:55 Ur Leukocyte Esterase Moderate (Negative) H 01/25/19 19:55 Urine WBC 103 /hpf (0-5) H 01/25/19 19:55 Urine WBC Clumps Many /hpf (None) H 01/25/19 19:55 Amorphous Sediment Moderate /hpf (None) H 01/25/19 19:55 Urine Bacteria Many /hpf (None) H 01/25/19 19:55 Microbiology 01/25/19 18:00 Foot - Left Gram Stain - Preliminary 01/25/19 18:00 Foot - Left Wound Culture - Preliminary Presumptive Staph aureus Gram Neg Bacilli 01/25/19 19:55 Urine,Catheterized Urine Culture - Preliminary Gram Neg Bacilli Assessment and Plan (1) Acute kidney injury superimposed on CKD Current Visit: Yes Status: Acute Code(s): N17.9 - ACUTE KIDNEY FAILURE, UNSPECIFIED; N18.9 - CHRONIC KIDNEY DISEASE, UNSPECIFIED SNOMED Code(s): 91999330 (2) 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 She's had some improvement over time but she had to give up her apartment and her cat. She had a shopping trip and upon return any new wound to the plantar surface of her left foot. She is unclear how it started.. Then developed what appeared to be swelling and cellulitis to the left foot and leg. She fortunately is responding to current antibiotic therapy to cover her baseline creatinine has increased and constantly vancomycin therapy is discontinued and will switch to daptomycin. However is now sedated and some gram-negative bacilli have been found in Rocephin will be added in addition baser prior cultures of quinolone resistant E. coli. Local wound care has been requested with therramonaoney that can be changed daily. He will be wrapped in place. Cultures for further help direct the course of therapy. Current Visit: Yes Status: Acute Code(s): L03.116 - CELLULITIS OF LEFT LOWER LIMB SNOMED Code(s): 562346548
[2019-01-27 07:16] LABS: Glucose,Whole Blood 95 mg/dL (75-99)
[2019-01-27 07:59] LABS: Albumin 2.4 g/dL (3.5-5.0); Calcium 8.2 mg/dL (8.4-10.2); Potassium 4.3 mmol/L (3.5-5.1); Total Bilirubin 0.3 mg/dL (0.2-1.3); Total Protein 5.1 g/dL (6.3-8.2)
[2019-01-27 08:04] LABS: Basophils % (A) 0 %; Eosinophils # (A) 0.8 k/uL (0-0.7); Eosinophils % (A) 14 %; HCT 28.2 % (34.0-46.0); Lymphocytes # (A) 0.8 k/uL (1.0-4.8); Lymphocytes % (A) 14 %; MCH 29.7 pg (25.0-35.0); MCHC 33.2 g/dL (31.0-37.0); MCV 89.3 fL (80.0-100.0); Mean Platelet Volume 6.7; Monocytes # (A) 0.3 k/uL (0-1.0); Monocytes % (A) 5 %; Neutrophils # (A) 3.7 k/uL (1.3-7.7); Neutrophils % (A) 65 %; Platelet Count 168 k/uL (150-450); RBC 3.16 m/uL (3.80-5.40); RDW 12.9 % (11.5-15.5); WBC 5.7 k/uL (3.8-10.6)
[2019-01-27] MEDS: INSULIN ASPART (NovoLOG) 100 UNIT/ML VIAL SQ SCH ×4 (08:12→21:22)
[2019-01-27] MEDS: DAPTOmycin 500 MG in SODIUM CHLORIDE 0.9% 50 ML IVPB SCH (08:12)
[2019-01-27] MEDS: amLODIPine 5 MG TAB PO SCH (08:13)
[2019-01-27] MEDS: METOPROLOL TARTRATE 50 MG TAB PO SCH ×2 (08:13→21:42)
[2019-01-27 08:19] LABS: HGB 9.4 gm/dL (11.4-16.0)
[2019-01-27 08:54] LABS: Vancomycin,Random 23.4 ug/mL
[2019-01-27 11:27] LABS: Glucose,Whole Blood 113 mg/dL (75-99)
[2019-01-27] MEDS: FUROSEMIDE 10 MG/ML 4 ML VIAL IV SCH ×2 (12:13→21:43)
--- NOTE | 2019-01-27 14:49 | XR ---
EXAMINATION TYPE: XR chest 1V DATE OF EXAM: 01/27/2019 COMPARISON: Prior chest x-ray 11/04/2017, 02/22/2018 HISTORY: Congestive heart failure TECHNIQUE: Single frontal view of the chest is obtained. FINDINGS: Technique is somewhat apical lordotic and rotated. Exam is expiratory. Tracheostomy tube cabello s been removed. Right hemidiaphragm is again elevated. Heart remains enlarged. Increased attenuation present in the right paratracheal location is indeterminate and was noted on prior chest x-ray. There is no pleural effusion or pneumothorax seen. The osseous structures are intact. IMPRESSION: Cardiomegaly, persistent elevation of right hemidiaphragm. Question abnormal increased a ttenuation right upper lobe in the paratracheal location although exam is apical lordotic and rotated , findings similar to most recent chest x-ray. Consider follow-up PA and lateral chest x-ray.
--- NOTE | 2019-01-27 15:23 | PN ---
PROGRESS NOTE Patient is seen for followup for acute kidney injury on top of chronic kidney disease. Yesterday, she received a dose of IV Lasix. Patient states her leg swelling is better. Her creatinine is up to 3.3 from 3.1. She is, however, voiding well and has had an increase in urine output. PHYSICAL EXAMINATION: This morning blood pressure was 176/77, heart rate 65 per minute, she is afebrile. Examination of the heart S1, S2. Examination of the lungs, bilateral breath sounds are heard. Decreased breath sounds at the bases. Abdomen is soft, obese, non-tender. Examination of the lower extremities shows edema with chronic skin changes bilaterally and left foot wound with some drainage noted. The wound is currently dressed. LABS: Show sodium 141, potassium 4.8, chloride 112, CO2 is 24, BUN 60, creatinine 3.35, hemoglobin 9.4 g/dL. ASSESSMENT: 1. Acute kidney injury associated with underlying infection. Patient is maintained on vancomycin. If renal function continues to worsen, we will need to discontinue the vancomycin. There is no evidence of obstructive uropathy. The patient is not on any nephrotoxic medications and she is not hypotensive. 2. Fluid overload, status post IV Lasix yesterday. Will continue with IV Lasix and check chest x-ray, repeat labs in a.m. 3. Hypertension, currently uncontrolled, partly volume sensitive. If blood pressure remains elevated tomorrow, we will change her antihypertensive regimen and if consideration to discontinue the Norvasc given the significant lower extremity edema. 4. Anemia, rule out iron deficiency. PLAN: Check iron studies. Check chest x-ray. Continue IV Lasix. MMODL / IJN: [id number] /
--- NOTE | 2019-01-27 15:36 | P.PN ---
Subjective Progress Note Date: 01/27/19 Principal diagnosis: 68-year-old female was brought in here as a wound in the left ankle area. Patient was sent in him here from [facility]. Although patient doesn't have any fever, no leukocytosis patient denied any increased pain in that area had increased redness. Patient appears to have elevated serum creatinine of 3.35 baseline appears to be around 2.7-2.9 patient does have end-stage renal disease diuretic nephropathy. Patient does have some mild redness and appears to have stage II ulcer in the left ankle area. Infectious disease was consulted. patient does have swelling in both legs and some redness in the right leg as well no significant increased local is of temperature. Patient was given a dose of Lasix by nephrology for peripheral edema. Infectious disease was consulted. 01/27/2019 Patient is sitting up in bed in no acute distress with no acute overnight issues. Patient is being followed by multiple medical consultations including infectious disease and nephrology and is being closely monitored. Patient states that she is feeling better today and that her swelling in her lower extremities has improved. Patient was just seen by wound care on the left ankle was just rewrapped with Kerlix and therahoney and is dry and intact. Currently patient denies any chest pain, shortness of breath, or palpitations at this time. Patient is afebrile. Patient denies any nausea or vomiting and is tolerating diet. When discussing with the patient about possible discharge plans, patient states that she will be returning to [facility]. Ur ine and wound cultures thus far showing gram-negative bacilli and awaiting for culture finalization. Will continue to monitor closely. Objective - Vital Signs Vital signs: Vital Signs Temp 98.5 F 01/27/19 13:10 Pulse 66 01/27/19 13:10 Resp 20 01/27/19 13:10 BP 166/63 01/27/19 13:10 Pulse Ox 93 L 01/27/19 13:10 Intake & Output 01/26/19 01/27/19 01/27/19 18:59 06:59 18:59 Intake Total 525 540 Output Total 850 76 Balance -325 464 Intake: Oral 525 540 Output: Urine 850 Post Void Residual 76 Other: Voiding Method Diaper Diaper # Voids 2 2 3 # Bowel Movements 0 - Exam GENERAL: The patient is alert and oriented x3, not in any acute distress. Well developed, well nourished. HEENT: Pupils are round and equally reacting to light. EOMI. No scleral icterus. No conjunctival pallor. Normocephalic, atraumatic. No pharyngeal erythema. No thyromegaly. CARDIOVASCULAR: S1 and S2 present. No murmurs, rubs, or gallops. PULMONARY: Chest is clear to auscultation, no wheezing or crackles. ABDOMEN: Soft, nontender, nondistended, normoactive bowel sounds. No palpable organomegaly. MUSCULOSKELETAL: No joint swelling or deformity. EXTREMITIES: No cyanosis, clubbing, bilateral pedal edema. Redness and swelling has improved to bilateral lower extremities. Kerlix dressing was just reapplied to the left ankle with some therahoney and is dry and intact. NEUROLOGICAL: Gross neurological examination did not reveal any focal deficits. SKIN: Bilateral redness in both legs with a stage II ulcer in the left ankle ar ea. - Labs CBC & Chem 7: 01/27/19 07:12 01/27/19 07:12 Labs: Abnormal Lab Results - Last 24 Hours (Table) 01/26/19 01/26/19 01/27/19 Range/Units 17:12 20:49 07:12 RBC (3.80-5.40) m/uL Hgb (11.4-16.0) gm/dL Hct (34.0-46.0) % Lymphocytes # (1.0-4.8) k/uL Eosinophils # (0-0.7) k/uL Chloride 112 H (98-107) mmol/L BUN 60 H (7-17) mg/dL Creatinine 3.35 H (0.52-1.04) mg/dL POC Glucose (mg/dL) 131 H 158 H (75-99) mg/dL Calcium 8.2 L (8.4-10.2) mg/dL AST 13 L (14-36) U/L Total Protein 5.1 L (6.3-8.2) g/dL Albumin 2.4 L (3.5-5.0) g/dL 01/27/19 01/27/19 Range/Units 07:12 11:26 RBC 3.16 L (3.80-5.40) m/uL Hgb 9.4 L D (11.4-16.0) gm/dL Hct 28.2 L (34.0-46.0) % Lymphocytes # 0.8 L (1.0-4.8) k/uL Eosinophils # 0.8 H (0-0.7) k/uL Chloride (98-107) mmol/L BUN (7-17) mg/dL Creatinine (0.52-1.04) mg/dL POC Glucose (mg/dL) 113 H (75-99) mg/dL Calcium (8.4-10.2) mg/dL AST (14-36) U/L Total Protein (6.3-8.2) g/dL Albumin (3.5-5.0) g/dL Microbiology - Last 24 Hours (Table) 01/25/19 18:00 Gram Stain - Preliminary Foot - Left Wound Culture - Preliminary Presumptive Staph aureus Gram Neg Bacilli 01/25/19 19:55 Urine Culture - Preliminary Urine,Catheterized Gram Neg Bacilli Assessment and Plan Assessment: -Possible infected ulcers in the left ankle area: Infectious disease was consulted wound care will evaluate the patient as well. Patient was resumed on ceftriaxone and daptomycin. -Chronic kidney disease stage IV with possible mild acute renal dysfunction: Patient received Lasix which was ordered by nephrology for prerenal azotemia from volume overload which is again secondary to venous insufficiency. 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
[2019-01-27 16:49] LABS: Glucose,Whole Blood 121 mg/dL (75-99)
[2019-01-27 19:50] LABS: % Iron Saturation 16.49 (12.00-45.00)
[2019-01-27 21:17] LABS: Glucose,Whole Blood 128 mg/dL (75-99)
--- NOTE | 2019-01-27 23:06 | P.PN ---
Subjective Progress Note Date: 01/27/19 68 year old woman well known to the ID service related to her many hospitalizations related to her diabetes and complications. She was on hemodialysis but recovered renal function and now is monitored by nephrology. She was doing relatively well when she had the sudden onset of a lesion on the plantar surface of the left foot. It With some scant drainage and she developed some swelling to the left lower extremity with some erythema. She was sent from the extended care facility for further evaluation. Because of her history of multiple diabetic foot ulcerations in the past and even concerned foot loss at one point in time consult was requested. The patient does not truly know what happened of the foot. She was out shopping wearing a slipper and the next day is when she noticed that there was a wound on the plantar surface that had some drainage. She did the swelling to the limb and sought care. She does not believe that she says significant fevers chills or rigors or sweats. Feels bet ter today. 01/27/2019 patient is starting to feel somewhat better, pain and swelling to the left leg is improving. Drainage of the foot is also improved. Blood sugars are stable and she is not having fevers or chills. She still requires assistance for all types of mobility. Objective - Vital Signs Vital signs: Vital Signs Temp 98.4 F 01/27/19 19:12 Pulse 64 01/27/19 19:12 Resp 20 01/27/19 19:12 BP 178/73 01/27/19 19:12 Pulse Ox 99 01/27/19 19:12 Intake & Output 01/27/19 01/27/19 01/28/19 06:59 18:59 06:59 Intake Total 525 1080 Output Total 850 76 Balance -325 1004 Intake: Oral 525 1080 Output: Urine 850 Post Void Residual 76 Other: Voiding Method Diaper Diaper # Voids 2 2 # Bowel Movements 1 - Exam HEENT: Anicteric conjunctiva are pink and moist nasal mucosa grossly intact without significant lesions, there is no thrush. Neck: The neck is supple without significant lymphadenopathy or thyromegaly. Lungs: Good bilateral air entry without significant crackles or wheezing. There is no significant bronchial sounds. There is no egophony or dullness. Heart: Regular rate and rhythm with an audible S1-S2, no S3 no S4. There is no significant murmur click or rub, PMI was nondisplaced. Abdomen: obese,Positive bowel sounds soft and nontender without palpable masses or organomegaly. There was no guarding or rebound. Extremities: The upper extremities have excellent pulses they are symmetric, no significant petechiae or telangiectasia. No splinter hemorrhages were noted. The lower extremities have only minimal edema. The left lower extremity shows evidence of the wound to the plantar surface of the foot please see the nursing photography. Currently there is no significant drainage as it was earlier. There is still some residual swelling and erythema to the foot and lower leg but is are improved as noted by the lack of edema and some of the linear wrinkles are present. Neuro: Awake alert oriented to person place and time. There are no acute new gross focal sensory motor deficits. - Labs CBC & Chem 7: 01/27/19 07:12 01/27/19 07:12 Labs: Abnormal Lab Results - Last 24 Hours (Table) 01/27/19 01/27/19 01/27/19 Range/Units 07:12 07:12 07:30 RBC 3.16 L (3.80-5.40) m/uL Hgb 9.4 L D (11.4-16.0) gm/dL Hct 28.2 L (34.0-46.0) % Lymphocytes # 0.8 L (1.0-4.8) k/uL Eosinophils # 0.8 H (0-0.7) k/uL Chloride 112 H (98-107) mmol/L BUN 60 H (7-17) mg/dL Creatinine 3.35 H (0.52-1.04) mg/dL POC Glucose (mg/dL) (75-99) mg/dL Calcium 8.2 L (8.4-10.2) mg/dL Iron 31 L (50-170) ug/dL TIBC 188 L (228-460) ug/dL AST 13 L (14-36) U/L Total Protein 5.1 L (6.3-8.2) g/dL Albumin 2.4 L (3.5-5.0) g/dL 01/27/19 01/27/19 01/27/19 Range/Units 11:26 16:47 21:14 RBC (3.80-5.40) m/uL Hgb (11.4-16.0) gm/dL Hct (34.0-46.0) % Lymphocytes # (1.0-4.8) k/uL Eosinophils # (0-0.7) k/uL Chloride (98-107) mmol/L BUN (7-17) mg/dL Creatinine (0.52-1.04) mg/dL POC Glucose (mg/dL) 113 H 121 H 128 H (75-99) mg/dL Calcium (8.4-10.2) mg/dL Iron (50-170) ug/dL TIBC (228-460) ug/dL AST (14-36) U/L Total Protein (6.3-8.2) g/dL Albumin (3.5-5.0) g/dL Microbiology - Last 24 Hours (Table) 01/25/19 18:00 Gram Stain - Final Foot - Left Wound Culture - Final Methicillin resist S. aureus Klebsiella pneumoniae 01/25/19 19:55 Urine Culture - Final Urine,Catheterized Klebsiella pneumoniae Laboratory Results WBC 5.7 k/uL (3.8-10.6) 01/27/19 07:12 RBC 3.16 m/uL (3.80-5.40) L 01/27/19 07:12 Hgb 9.4 gm/dL (11.4-16.0) L D 01/27/19 07:12 Hct 28.2 % (34.0-46.0) L 01/27/19 07:12 MCV 89.3 fL (80.0-100.0) 01/27/19 07:12 MCH 29.7 pg (25.0-35.0) 01/27/19 07:12 MCHC 33.2 g/dL (31.0-37.0) 01/27/19 07:12 RDW 12.9 % (11.5-15.5) 01/27/19 07:12 Plt Count 168 k/uL (150-450) 01/27/19 07:12 Neutrophils % 65 % 01/27/19 07:12 Lymphocytes % 14 % 01/27/19 07:12 Monocytes % 5 % 01/27/19 07:12 Eosinophils % 14 % 01/27/19 07:12 Basophils % 0 % 01/27/19 07:12 Neutrophils # 3.7 k/uL (1.3-7.7) 01/27/19 07:12 Lymphocytes # 0.8 k/uL (1.0-4.8) L 01/27/19 07:12 Monocytes # 0.3 k/uL (0-1.0) 01/27/19 07:12 Eosinophils # 0.8 k/uL (0-0.7) H 01/27/19 07:12 Basophils # 0.0 k/uL (0-0.2) 01/27/19 07:12 ESR 87 mm/hr (0-20) H 01/25/19 18:00 PT 9.5 sec (9.0-12.0) 01/25/19 18:00 INR 0.9 (<1.2) 01/25/19 18:00 APTT 26.2 sec (22.0-30.0) 01/25/19 18:00 Sodium 141 mmol/L (137-145) 01/27/19 07:12 Potassium 4.3 mmol/L (3.5-5.1) 01/27/19 07:12 Chloride 112 mmol/L (98-107) H 01/27/19 07:12 Carbon Dioxide 24 mmol/L (22-30) 01/27/19 07:12 Anion Gap 5 mmol/L 01/27/19 07:12 BUN 60 mg/dL (7-17) H 01/27/19 07:12 Creatinine 3.35 mg/dL (0.52-1.04) H 01/27/19 07:12 Est GFR (CKD-EPI)AfAm 16 (>60 ml/min/1.73 sqM) 01/27/19 07:12 Est GFR (CKD-EPI)NonAf 14 (>60 ml/min/1.73 sqM) 01/27/19 07:12 Glucose 92 mg/dL (74-99) 01/27/19 07:12 POC Glucose (mg/dL) 128 mg/dL (75-99) H 01/27/19 21:14 POC Glu Cash Person ID Rosaura Stark 01/27/19 21:14 Plasma Lactic Acid Jamar 0.6 mmol/L (0.7-2.0) L 01/25/19 18:00 Calcium 8.2 mg/dL (8.4-10.2) L 01/27/19 07:12 Iron 31 ug/dL (50-170) L 01/27/19 07:30 TIBC 188 ug/dL (228-460) L 01/27/19 07:30 % Saturation 16.49 (12.00-45.00) 01/27/19 07:30 Total Bilirubin 0.3 mg/dL (0.2-1.3) 01/27/19 07:12 AST 13 U/L (14-36) L 01/27/19 07:12 ALT 20 U/L (9-52) 01/27/19 07:12 Alkaline Phosphatase 52 U/L (38-126) 01/27/19 07:12 C-Reactive Protein 77.8 mg/L (<10.0) H 01/25/19 18:00 Total Protein 5.1 g/dL (6.3-8.2) L 01/27/19 07:12 Albumin 2.4 g/dL (3.5-5.0) L 01/27/19 07:12 Urine Color Yellow 01/25/19 19:55 Urine Appearance Cloudy (Clear) H 01/25/19 19:55 Urine pH 6.0 (5.0-8.0) 01/25/19 19:55 Ur Specific [place] 1.017 (1.001-1.035) 01/25/19 19:55 Urine Protein 3+ (Negative) H 01/25/19 19:55 Urine Glucose (UA) 2+ (Negative) H 01/25/19 19:55 Urine Ketones Negative (Negative) 01/25/19 19:55 Urine Blood Small (Negative) H 01/25/19 19:55 Urine Nitrite Negative (Negative) 01/25/19 19:55 Urine Bilirubin Negative (Negative) 01/25/19 19:55 Urine Urobilinogen <2.0 mg/dL (<2.0) 01/25/19 19:55 Ur Leukocyte Esterase Moderate (Negative) H 01/25/19 19:55 Urine WBC 103 /hpf (0-5) H 01/25/19 19:55 Urine WBC Clumps Many /hpf (None) H 01/25/19 19:55 Amorphous Sediment Moderate /hpf (None) H 01/25/19 19:55 Urine Bacteria Many /hpf (None) H 01/25/19 19:55 Random Vancomycin 23.4 ug/mL 01/27/19 07:12 Microbiology 01/25/19 18:00 Foot - Left Gram Stain - Final 01/25/19 18:00 Foot - Left Wound Culture - Final Methicillin resist S. aureus Klebsiella pneumoniae 01/25/19 19:55 Urine,Catheterized Urine Culture - Final Klebsiella pneumoniae Assessment and Plan (1) Acute kidney injury superimposed on CKD Current Visit: Yes Status: Acute Code(s): N17.9 - ACUTE KIDNEY FAILURE, UNSPECIFIED; N18.9 - CHRONIC KIDNEY DISEASE, UNSPECIFIED SNOMED Code(s): 04236768 (2) Diabetic ulcer of left foot associated with diabetes mellitus due to underlying condition, with fat layer exposed Current Visit: No Status: Acute Code(s): E08.621 - DIABETES MELLITUS DUE TO UNDERLYING CONDITION W FOOT ULCER; L97.522 - NON-PRS CHRONIC ULCER OTH PRT LEFT FOOT W FAT LAYER EXPOSED SNOMED Code(s): 541766084 (3) Cellulitis of left leg Narrative/Plan: 68-year-old woman who has a history of superobesity who is had approximately 140 pound weight loss but remains resident of halfway facility due to her inability to ambulate independently. She's had some improvement over time but she had to give up her apartment and her cat. She had a shopping trip and upon return any new wound to the plantar surface of her left foot. She is unclear how it started.. Then developed what appeared to be swelling and cellulitis to the left foot and leg. She fortunately is responding to current antibiotic therapy to cover her baseline creatinine has increased and constantly vancomycin therapy is discontinued and will switch to daptomycin. However is now sedated and some gram-negative bacilli have been found in Rocephin will be added in a ddition baser prior cultures of quinolone resistant E. coli. Local wound care has been requested with abraham that can be changed daily. He will be wrapped in place. Cultures for further help direct the course of therapy. 01/27/2019 the patient is feeling slightly better today. Pain and swelling to the left leg has started to improve. She is tolerating the therapy well drainage from the ulceration is improving. She has had acute on chronic renal failure and her vancomycin has been transitioned to daptomycin. When data was available yesterday antibiotic Cipro and Rocephin was added. There is evidence of Klebsiella in the wound as well as in her urine culture. We'll continue current antibiotics until there is further improvement. Continue local wound care with abraham. Her creatinine is being closely monitored with nephrology. Current Visit: Yes Status: Acute Code(s): L03.116 - CELLULITIS OF LEFT LOWER LIMB SNOMED Code(s): 348171942
[2019-01-28 07:25] LABS: Glucose,Whole Blood 106 mg/dL (75-99)
[2019-01-28] MEDS: INSULIN ASPART (NovoLOG) 100 UNIT/ML VIAL SQ SCH ×4 (07:42→21:12)
[2019-01-28] MEDS: FUROSEMIDE 10 MG/ML 4 ML VIAL IV SCH ×2 (07:56→21:35)
[2019-01-28] MEDS: amLODIPine 5 MG TAB PO SCH (07:56)
[2019-01-28] MEDS: METOPROLOL TARTRATE 50 MG TAB PO SCH ×2 (07:56→21:11)
[2019-01-28 10:28] LABS: Calcium 8.5 mg/dL (8.4-10.2)
[2019-01-28 12:13] LABS: Glucose,Whole Blood 121 mg/dL (75-99)
--- NOTE | 2019-01-28 15:06 | PN ---
PROGRESS NOTE Patient is seen for followup for acute kidney injury. She is currently being diuresed. Renal function is stable with creatinine staying at 3.3 mg/dL. The patient's baseline creatinine is about 2.7. Her lower extremity edema has improved. The patient is maintained on IV antibiotics as well. Chest x-ray does not show any significant pulmonary vascular congestion. PHYSICAL EXAMINATION: On examination today, blood pressure was 161/75, heart rate 60 per minute, patient is afebrile. Examination of the heart S1, S2. Examination of the lungs, bilateral breath sounds are heard. Abdomen is soft, nontender, obese. Examination of the lower extremities shows much improved edema. Left foot is currently wrapped. Chronic skin changes noted. LABS: Show sodium 143, potassium 4.0, chloride 111, BUN 62, creatinine 3.34. ASSESSMENT: 1. Acute kidney injury, mostly cardiorenal and associated with underlying infection currently nonoliguric with no evidence of retention. Patient is being diuresed, her volume status has improved. I will change her Lasix to p.o. 2. Volume overload, currently improved. 3. Cellulitis and wound left foot, maintained on daptomycin. Vancomycin has been discontinued. PLAN: Switch to p.o. diuretics. Repeat labs in a.m. Continue to avoid nephrotoxic agents. MMODL / IJN: [id number] /
[2019-01-28 17:04] LABS: Glucose,Whole Blood 150 mg/dL (75-99)
[2019-01-28 20:25] LABS: Glucose,Whole Blood 146 mg/dL (75-99)
--- NOTE | 2019-01-28 20:26 | P.PN ---
Progress Note - Text Progress Note Date: 01/28/19 Interval history: This is a pleasant 68-year-old patient, of Dr. Roldan. Admitted with wound on the left heel. Cultures positive for MRSA and Pneumonia. Also Admitted with Acute on Chronic Kidney Disease. Vancomycin Was Discontinued. Because of Peripheral Neuropathy Pain Is Controlled. Able to Tolerate Her Diet. Had a Bowel Movement. Today-Laying in Bed. Dressing Changes or Complaint. Did Tolerate Her Diet. Pain Control. Review of systems: Was done for constitutional, cardiovascular, GI, pulmonary. Dermatological relevant finding as above Active Medications Acetaminophen (Tylenol Tab) 650 mg PO Q6HR PRN PRN Reason: Mild Pain or Fever > 100.5 Amlodipine Besylate (Norvasc) 5 mg PO DAILY [facility] Last Admin: 01/28/19 07:56 Dose: 5 mg Documented by: Furosemide (Lasix) 40 mg IV Q12HR [facility] Last Admin: 01/28/19 07:56 Dose: 40 mg Documented by: Daptomycin 500 mg/ Sodium (Chloride) 50 mls @ 100 mls/hr IVPB Q48H [facility]; Protocol Last Admin: 01/27/19 08:12 Dose: 100 mls/hr Documented by: Ceftriaxone Sodium 1 gm/ (Sodium Chloride) 50 mls @ 100 mls/hr IVPB Q24H [facility] Last Admin: 01/27/19 23:37 Dose: 100 mls/hr Documented by: Insulin Aspart (Novolog) 0 unit SQ ACHS [facility]; Protocol Last Admin: 01/28/19 17:08 Dose: Not Given Documented by: Metoprolol Tartrate (Lopressor) 50 mg PO BID [facility] Last Admin: 01/28/19 07:56 Dose: 50 mg Documented by: Naloxone HCl (Narcan) 0.2 mg IV Q2M PRN PRN Reason: Opioid Reversal Tramadol HCl (Ultram) 50 mg PO Q6H PRN PRN Reason: Moderate Pain On examination: VITAL SIGNS: 98.2, 63, 16, 167/70, 96% room air GENERAL APPEARANCE: BMI 35.4, laying in bed comfortable HEENT: Normal external appearance of nose and ear. Oral cavity normal EYES: Pupils equal. Conjunctiva normal. NECK: JVD not raised. Mass not palpable. RESPIRATORY: Respiratory effort normal. Lungs clear to auscultation. CARDIOVASCULAR: First and second sounds normal. No edema. ABDOMEN: Soft. Pendulous Liver and spleen not palpable. No tenderness. No mass palpable. PSYCHIATRY: Alert and oriented x3. Mood and affect normal. EXTREMITY: Wound on the left heel INVESTIGATIONS, reviewed in the clinical context: Potassium 4. Bun 62 creatinine 3.34 White count 5.7 hemoglobin 9.4 platelets 168 Albumin 2.4 Wound culture growing-MRSA and Klebsiella pneumoniae /creatinine on 01/20/2019 was 2.78 Assessment: -Acute left heel wound, and cellulitis secondary to diabetes, growing MRSA and Klebsiella pneumoniae. Local wound care with abraham slow to respond -Diabetes mellitus type 2, causing diabetic peripheral neuropathy -Chronic kidney disease stage III from diabetic nephropathy -Acute kidney injury, possible ATN from infection, slow to respond -Anemia's of chronic kidney disease -Hypertension with chronic kidney disease Plan: -Patient is currently on IV ceftriaxone and IV daptomycin. Accu-Cheks are being followed. Wound care to continue with ID. Care was discussed with the patient. Follow renal function.
[2019-01-29] MEDS: INSULIN ASPART (NovoLOG) 100 UNIT/ML VIAL SQ SCH ×4 (07:28→20:43)
[2019-01-29] MEDS: FUROSEMIDE 10 MG/ML 4 ML VIAL IV SCH ×2 (07:29→20:44)
[2019-01-29] MEDS: DAPTOmycin 500 MG in SODIUM CHLORIDE 0.9% 50 ML IVPB SCH (07:29)
[2019-01-29 07:41] LABS: Glucose,Whole Blood 94 mg/dL (75-99)
[2019-01-29 08:26] LABS: Calcium 8.5 mg/dL (8.4-10.2); Potassium 3.9 mmol/L (3.5-5.1)
[2019-01-29] MEDS: amLODIPine 5 MG TAB PO SCH (10:57)
[2019-01-29] MEDS: METOPROLOL TARTRATE 50 MG TAB PO SCH ×2 (10:58→20:44)
[2019-01-29 11:45] LABS: Glucose,Whole Blood 118 mg/dL (75-99)
[2019-01-29 14:30] LABS: Hemoglobin A1C 5.2 % (4.0-6.0)
[2019-01-29] MEDS ORDERED: amLODIPine 5 MG TAB PO STA (14:52)
[2019-01-29] MEDS: ENOXAPARIN 40 MG/0.4 ML SYRINGE SQ SCH (15:31)
--- NOTE | 2019-01-29 17:17 | PN ---
PROGRESS NOTE Patient is seen for followup for chronic kidney disease and acute kidney injury. Her renal function continues to improve. Patient had significant volume overload on initial admission, for which she was maintained on IV Lasix, and this was switched over to p.o. Lasix yesterday. She is also being treated for cellulitis and wound infection in her left foot. PHYSICAL EXAMINATION: On examination today, blood pressure was 185/96, heart rate 61 per minute. Patient is afebrile. EXAMINATION OF THE HEART: S1 and S2. EXAMINATION OF LUNGS: Bilateral breath sounds are heard. ABDOMEN: Soft, non-tender, obese. Examination of lower extremities shows chronic skin changes. Edema noted, which is improved. [employer] exam is grossly intact. LABS: Sodium 142, potassium 3.9, chloride 109, BUN 60, creatinine 3.17. ASSESSMENT: 1. Acute kidney injury, mainly cardiorenal, currently improving. 2. Hypertension, partly volume-sensitive. Blood pressure remains elevated post diuresis. Norvasc has been increased. Add hydralazine, small dose, although that can further cause worsening edema in the lower extremities. 3. Left lower extremity wound, maintained on daptomycin and ceftriaxone. 4. Chronic kidney disease with previous creatinine at 2.2 to 2.3 mg/dL in November and December of 2018. NKF stage IV secondary to diabetic nephropathy and nephrosclerosis. 5. Urinary tract infection with Klebsiella pneumoniae. 6. Volume overload, currently improved. PLAN: Switch to p.o. Lasix in a.m. Continue antibiotics. Add low-dose hydralazine for blood pressure control. MMODL / IJN: [id number] /
[2019-01-29 17:28] LABS: Glucose,Whole Blood 112 mg/dL (75-99)
--- NOTE | 2019-01-29 18:04 | P.PN ---
Progress Note - Text Progress Note Date: 01/29/19 Interval history: This is a pleasant 68-year-old patient, of Dr. Roldan. Admitted with wound on the left heel. Cultures positive for MRSA and Klebsiella Pneumonia. Also Admitted with Acute on Chronic Kidney Disease. Vancomycin Was Discontinued. Because of Peripheral Neuropathy Pain Is Controlled. Able to Tolerate Her Diet. Had a Bowel Movement. Today-no new issues. Blood pressures running high. Tolerated diet. Comfortable Review of systems: Was done for constitutional, cardiovascular, GI, pulmonary. Dermatological relevant finding as above Active Medications Acetaminophen (Tylenol Tab) 650 mg PO Q6HR PRN PRN Reason: Mild Pain or Fever > 100.5 Amlodipine Besylate (Norvasc) 10 mg PO DAILY [facility] Enoxaparin Sodium (Lovenox) 40 mg SQ DAILY [facility] Last Admin: 01/29/19 15:31 Dose: 40 mg Documented by: Furosemide (Lasix) 40 mg IV Q12HR [facility] Last Admin: 01/29/19 07:29 Dose: 40 mg Documented by: Hydralazine HCl (Apresoline) 25 mg PO BID [facility] Daptomycin 500 mg/ Sodium (Chloride) 50 mls @ 100 mls/hr IVPB Q48H [facility]; Protocol Last Admin: 01/29/19 07:29 Dose: 100 mls/hr Documented by: Ceftriaxone Sodium 1 gm/ (Sodium Chloride) 50 mls @ 100 mls/hr IVPB Q24H [facility] Last Admin: 01/28/19 23:54 Dose: 100 mls/hr Documented by: Insulin Aspart (Novolog) 0 unit SQ ACHS [facility]; Protocol Last Admin: 01/29/19 17:28 Dose: Not Given Documented by: Metoprolol Tartrate (Lopressor) 50 mg PO BID [facility] Last Admin: 01/29/19 10:58 Dose: 50 mg Documented by: Naloxone HCl (Narcan) 0.2 mg IV Q2M PRN PRN Reason: Opioid Reversal Tramadol HCl (Ultram) 50 mg PO Q6H PRN PRN Reason: Moderate Pain On examination: VITAL SIGNS: 98.4, 55, 16, 185/83, 97% room air GENERAL APPEARANCE:, laying in bed comfortable HEENT: Normal external appearance of nose and ear. Oral cavity normal EYES: Pupils equal. Conjunctiva normal. NECK: JVD not raised. Mass not palpable. RESPIRATORY: Respiratory effort normal. Lungs clear to auscultation. CARDIOVASCULAR: First and second sounds normal. No edema. ABDOMEN: Soft. Pendulous Liver and spleen not palpable. No tenderness. No mass palpable. PSYCHIATRY: Alert and oriented x3. Mood and affect normal. EXTREMITY: Wound on the left heel INVESTIGATIONS, reviewed in the clinical context: Potassium 3.9 bun 60 creatine 3.17 Previous testing Potassium 4. Bun 62 creatinine 3.34 White count 5.7 hemoglobin 9.4 platelets 168 Albumin 2.4 Wound culture growing-MRSA and Klebsiella pneumoniae /creatinine on 01/20/2019 was 2.78 Assessment: -Acute left heel wound, and cellulitis secondary to diabetes, growing MRSA and Klebsiella pneumoniae. Local wound care with abraham slow to respond -Diabetes mellitus type 2, causing diabetic peripheral neuropathy -Chronic kidney disease stage III from diabetic nephropathy -Acute kidney injury, possible ATN from infection, slow to respond -Anemia's of chronic kidney disease -Hypertension with chronic kidney disease, uncontrolled Plan: We will increase the patient's dose of amlodipine to 10 mg a day. Starting tomorrow. Give additional 5 mg daily. Other medications to continue. Discharge to the F held because of blood pressure is to be better controlled.
[2019-01-29 20:42] LABS: Glucose,Whole Blood 106 mg/dL (75-99)
[2019-01-29] MEDS: DOXYCYCLINE 100 MG CAP PO SCH (20:44)
[2019-01-29] MEDS: hydrALAZINE HCL 25 MG TAB PO SCH (20:44)
[2019-01-30 07:01] LABS: Calcium 8.4 mg/dL (8.4-10.2); Potassium 3.9 mmol/L (3.5-5.1)
[2019-01-30 07:17] LABS: Glucose,Whole Blood 93 mg/dL (75-99)
[2019-01-30] MEDS: INSULIN ASPART (NovoLOG) 100 UNIT/ML VIAL SQ SCH ×2 (07:19→12:41)
[2019-01-30] MEDS: hydrALAZINE HCL 25 MG TAB PO SCH (07:32)
[2019-01-30] MEDS: METOPROLOL TARTRATE 50 MG TAB PO SCH (07:32)
[2019-01-30] MEDS: FUROSEMIDE 10 MG/ML 4 ML VIAL IV SCH (07:34)
[2019-01-30] MEDS: DOXYCYCLINE 100 MG CAP PO SCH (07:34)
[2019-01-30] MEDS: ENOXAPARIN 40 MG/0.4 ML SYRINGE SQ SCH ×2 (07:34→07:37)
[2019-01-30] MEDS ORDERED: amLODIPine 10 MG TAB PO SCH (09:00)
[2019-01-30] MEDS ORDERED: amLODIPine 5 MG TAB PO SCH (10:00)
--- NOTE | 2019-01-30 11:01 | P.PN ---
Subjective Patient is seen in follow-up for acute kidney injury on chronic kidney disease. Renal function is slightly worse. Creatinine 3.3 today. Urine output is good. No vomiting or diarrhea. Potentially going back to [facility] today. Vital signs are stable. General: The patient appeared well nourished and normally developed. HEENT: Head exam is unremarkable. Neck is without jugular venous distension. LUNGS: Lungs are clear to auscultation and percussion. Breath sounds decreased. HEART: Rate and Rhythm are regular. First and second heart sounds normal. No murmurs, rubs or gallops. ABDOMEN: Abdominal exam reveals normal bowel sounds. Non-tender and non- distended. No evidence of peritonitis. EXTREMITITES: Trace edema. Objective - Vital Signs Vital signs: Vital Signs Temp 97.5 F L 01/30/19 08:57 Pulse 60 01/30/19 10:25 Resp 18 01/30/19 05:00 BP 138/72 01/30/19 10:25 Pulse Ox 100 01/30/19 09:05 Intake & Output 01/29/19 01/30/19 01/30/19 18:59 06:59 18:59 Intake Total 850 Output Total 1800 Balance -1800 850 Weight 112.5 kg Intake: Oral 850 Output: Urine 1800 Other: Voiding Method Diaper Diaper Incontinent Incontinent Incontinent # Voids 2 # Bowel Movements 1 - Labs CBC & Chem 7: 01/27/19 07:12 01/30/19 06:11 Labs: Abnormal Lab Results - Last 24 Hours (Table) 01/29/19 01/29/19 01/29/19 Range/Units 11:24 16:58 20:29 Chloride (98-107) mmol/L BUN (7-17) mg/dL Creatinine (0.52-1.04) mg/dL POC Glucose (mg/dL) 118 H 112 H 106 H (75-99) mg/dL 01/30/19 Range/Units 06:11 Chloride 110 H (98-107) mmol/L BUN 66 H (7-17) mg/dL Creatinine 3.38 H (0.52-1.04) mg/dL POC Glucose (mg/dL) (75-99) mg/dL Assessment and Plan Plan: Assessment: 1. Acute kidney injury mostly prerenal secondary to cardiorenal syndrome as well as infection. Renal function slightly worse today. Creatinine 3.3 today. 2. Chronic kidney disease stage IV with baseline creatinine in the range of 2- 2.5 secondary to diabetic kidney disease. 3. Lower extremity cellulitis maintained on antibiotics. 4. Hypertension with chronic kidney disease. 5. Diabetes mellitus. 6. UTI with urine culture positive for Klebsiella. Plan: I will change Lasix to 40 mg orally twice daily. Discontinue hydralazine and decreased the rate of metoprolol to 25 mg twice daily due to bradycardia. Resume amlodipine 5 mg once daily. Repeat BMP and magnesium level in 3-4 days postdischarge. Follow up outpatient in the next 1-2 weeks.
[2019-01-30 12:17] LABS: Glucose,Whole Blood 108 mg/dL (75-99)
[2019-01-30 12:33] VITALS: BP 146/89; PULSE 54; RESP 20; TEMP 97.6
--- NOTE | 2019-01-30 14:00 | P.DS ---
Providers Date of admission: 01/27/19 09:35 Expected date of discharge: 01/30/19 Attending physician: Charles Cox Consults: 01/25/19 20:44 Consult Physician Urgent Consulting Provider: Cleopatra Hahn Consult Reason/Comments: alex/ckd Do you want consulting provider notified?: Yes, Notify in am 01/26/19 11:58 Consult Physician Routine Consulting Provider: Cheng Bah Consult Reason/Comments: left foot infection sees pt outpt Do you want consulting provider notified?: Yes Primary care physician: Dav Roldan [facility] Course: Hospital course: This is a pleasant 68-year-old patient, of Dr. Roldan. Admitted with wound on the left heel. Cultures positive for MRSA and Klebsiella Pneumonia. Also Admitted with Acute on Chronic Kidney Disease. Vancomycin Was Discontinued. Because of Peripheral Neuropathy Pain Is Controlled. Blood pressure medication adjusted. Today-pain well controlled. Tolerating a diet. Had a bowel movement. Consultants: Dr. Bah from ID Dr. Hahn from nephrology On examination: VITAL SIGNS: 97.6, 54, 20, 146/89, 99% room air GENERAL APPEARANCE:, Sitting at the edge of the bed, comfortable HEENT: Normal external appearance of nose and ear. Oral cavity normal EYES: Pupils equal. Conjunctiva normal. NECK: JVD not raised. Mass not palpable. RESPIRATORY: Respiratory effort normal. Lungs clear to auscultation. CARDIOVASCULAR: First and second sounds normal. No edema. ABDOMEN: Soft. Pendulous Liver and spleen not palpable. No tenderness. No mass palpable. PSYCHIATRY: Alert and oriented x3. Mood and affect normal. EXTREMITY: Wound on the left heel INVESTIGATIONS, reviewed in the clinical context: Potassium 3.9 bun 66 creatinine 3.38 Previous testing Potassium 4. Bun 62 creatinine 3.34 White count 5.7 hemoglobin 9.4 platelets 168 Albumin 2.4 Wound culture growing-MRSA and Klebsiella pneumoniae /creatinine on 01/20/2019 was 2.78 Assessment: -Acute left heel wound, and cellulitis secondary to diabetes, growing MRSA and Klebsiella pneumoniae. Local wound care with abraham, -Diabetes mellitus type 2, causing diabetic peripheral neuropathy -Chronic kidney disease stage III from diabetic nephropathy -Acute kidney injury, possible ATN from infection, -Anemia's of chronic kidney disease -Hypertension with chronic kidney disease, Disposition: [facility] Labs: CBC BMP in 3 days Patient Condition at Discharge: Stable Plan - Discharge Summary Discharge Rx Participant: No New Discharge Prescriptions: New Doxycycline Monohydrate [Monodox] 100 mg PO Q12HR #20 cap Furosemide [Lasix] 40 mg PO BID@0900,1600 tab INSULIN ASPART (NovoLOG) [NovoLOG (formulary)] 0 unit SQ ACHS vial Continue Metoprolol Tartrate [Lopressor] 25 mg PO BID amLODIPine [Norvasc] 5 mg PO DAILY #30 tab Psyllium Husk 100% [Metamucil Packet] 6 gm PO BID PRN PRN Reason: Diarrhea Acetaminophen Tab [Tylenol] 650 mg PO Q6H PRN PRN Reason: Pain Darbepoetin Mckay [Aranesp] 40 mcg SQ FR Aspirin EC [Ecotrin Low Dose] 81 mg PO DAILY Changed Sodium Bicarbonate Tab 650 mg PO DAILY #60 tab Discharge Medication List Metoprolol Tartrate [Lopressor] 25 mg PO BID 03/09/18 [History] amLODIPine [Norvasc] 5 mg PO DAILY #30 tab 03/14/18 [Rx] Acetaminophen Tab [Tylenol] 650 mg PO Q6H PRN 01/26/19 [History] Aspirin EC [Ecotrin Low Dose] 81 mg PO DAILY 01/26/19 [History] Darbepoetin Mckay [Aranesp] 40 mcg SQ FR 01/26/19 [History] Psyllium Husk 100% [Metamucil Packet] 6 gm PO BID PRN 01/26/19 [History] Doxycycline Monohydrate [Monodox] 100 mg PO Q12HR #20 cap 01/29/19 [Rx] Furosemide [Lasix] 40 mg PO BID@0900,1600 tab 01/30/19 [Rx] INSULIN ASPART (NovoLOG) [NovoLOG (formulary)] 0 unit SQ ACHS vial 01/30/19 [Rx] Sodium Bicarbonate Tab 650 mg PO DAILY #60 tab 01/30/19 [Rx] Follow up Appointment(s)/Referral(s): Dav Roldan DO [Primary Care Provider] - 1-2 days (office to call you with appt. time and date.) Cheng Bah MD [STAFF PHYSICIAN] - 1 Week (please call [phone] for follow up appt.) [facility] [NON-STAFF] - 02/04/19 2:00 pm Patient Instructions/Handouts: Heart Failure (DC), Acute Kidney Injury (DC), Chronic Kidney Disease (DC), Type 2 Diabetes in Adults: New Diagnosis (DC), Diabetic Foot Ulcers (DC) Activity/Diet/Wound Care/Special Instructions: MRSA precautions Daily wound care to left foot ulcer with Therahoney, nonstick adhesive, and gauze wrap. follow up appointment Feb 04 14:00 Up with assist to chair, fall precautions. Diabetic diet. Activity as tolerated
[2019-01-30] MEDS ORDERED: FUROSEMIDE 40 MG TAB PO SCH (16:00)
[2019-01-30] MEDS ORDERED: METOPROLOL TARTRATE 25 MG TAB PO SCH (21:00)
== END 2019-01-30 15:21 | DRG 638 ==
LOC: EC 17:36 → 4MS4W 20:42 → OBSVTOIN 01-27 09:35 → 4MS4W 01-27 11:38
PROVIDERS: ADMIT Hospitalist; ATTEND Hospitalist
DX: E11.628 Type 2 diabetes mellitus with other skin complications (principal); L97.422 Non-pressure chronic ulcer of left heel and midfoot with fat layer exposed; L03.116 Cellulitis of left lower limb; L97.329 Non-pressure chronic ulcer of left ankle with unspecified severity; I13.2 Hypertensive heart and chronic kidney disease with heart failure and with stage 5 chronic kidney disease, or end stage renal disease; N39.0 Urinary tract infection, site not specified; E87.2 Acidosis; E11.621 Type 2 diabetes mellitus with foot ulcer; N17.0 Acute kidney failure with tubular necrosis; E11.22 Type 2 diabetes mellitus with diabetic chronic kidney disease; E11.42 Type 2 diabetes mellitus with diabetic polyneuropathy; I50.9 Heart failure, unspecified; N18.4 Chronic kidney disease, stage 4 (severe); D63.1 Anemia in chronic kidney disease; E78.5 Hyperlipidemia, unspecified; I87.2 Venous insufficiency (chronic) (peripheral); M19.90 Unspecified osteoarthritis, unspecified site; B96.1 Klebsiella pneumoniae [K. pneumoniae] as the cause of diseases classified elsewhere; B95.62 Methicillin resistant Staphylococcus aureus infection as the cause of diseases classified elsewhere; Z79.82 Long term (current) use of aspirin; Z79.899 Other long term (current) drug therapy; Z87.891 Personal history of nicotine dependence; Z86.14 Personal history of Methicillin resistant Staphylococcus aureus infection; Z88.0 Allergy status to penicillin; Z88.8 Allergy status to other drugs, medicaments and biological substances; Z90.49 Acquired absence of other specified parts of digestive tract; Z89.431 Acquired absence of right foot; Z98.42 Cataract extraction status, left eye; Z98.41 Cataract extraction status, right eye; Z96.1 Presence of intraocular lens; Z82.49 Family history of ischemic heart disease and other diseases of the circulatory system; Z83.3 Family history of diabetes mellitus; Z80.9 Family history of malignant neoplasm, unspecified; Z82.3 Family history of stroke; Z81.1 Family history of alcohol abuse and dependence
CPT/HCPCS: 36415; 71045; 80048; 80053; 80202; 81001; 83036; 83540; 83550; 83605; 85025; 85610; 85652; 85730; 86140; 87070; 87077; 87086; 87186; 87205; 96365; 99285

== ENCOUNTER → 2019-07-28 | Outpatient (CLI) | payer MEDICARE, OTHER | END | disposition home or self-care (01) | LOC: LABWHC1 10:37 | PROVIDERS: ATTEND Surgery | DX: Z53.9 Procedure and treatment not carried out, unspecified reason (principal) ==

== ENCOUNTER 2019-07-30 06:21 | Day surgery (SDC) | payer MEDICARE, OTHER ==
[2019-07-29 13:08] VITALS: BMI 41.4
[2019-07-30] MEDS ORDERED: ONDANSETRON 4 MG/2 ML VIAL IVP ONE ×2 (06:34→07:02)
[2019-07-30] MEDS ORDERED: LACTATED RINGERS 1,000 ML IV SCH (06:34)
[2019-07-30] MEDS ORDERED: LIDOCAINE 1% (10MG/ML) FOR IV START INTRADERMA PRN (06:34)
[2019-07-30] MEDS ORDERED: fentaNYL (PF) 50 MCG/ML 2 ML AMP IV PRN (06:34)
[2019-07-30] MEDS ORDERED: LIDOCAINE 1% (10MG/ML) FOR IV START INTRADERMA ONE (07:01)
[2019-07-30 07:02] VITALS: RESP 16
[2019-07-30] MEDS ORDERED: MIDAZOLAM 2 MG/2 ML VIAL IV ONE (07:07)
[2019-07-30] MEDS ORDERED: fentaNYL (PF) 50 MCG/ML 2 ML AMP IV ONE (07:07)
[2019-07-30 07:17] LABS: Glucose,Whole Blood 151 mg/dL (75-99)
--- NOTE | 2019-07-30 07:47 | P.ANPRN ---
Procedure Note - Anesthesia - Nerve Block Performed Left Supraclavicular Single Time Out Performed: Yes Date of Procedure: 07/30/19 Procedure Start Time: : Procedure Stop Time: : Location of Patient: PreOp Indication: Requested by Surgeon Specifically requested for management of pain by DrMonserrat: Alea Guo Sedation Type: Sedate with meaningful contact maintained Preparation: Sterile Prep Position: Supine Needle Types: Pajunk Needle Gauge: 21 Ultrasound used to visualize needle placement: Yes Ultrasound used to observe medication spread: Yes Injectate: 0.5% Ropivacaine (see comment for volume) (20 ml) Blood Aspirated: No Pain Paresthesia on Injection Noted: No Resistance on Injection: Normal Image Stored and Saved: Yes Events: Uneventful and Well Tolerated
[2019-07-30] MEDS ORDERED: PROPOFOL 10 MG/ML 20 ML VIAL IV ONE (08:01)
[2019-07-30] MEDS ORDERED: fentaNYL (PF) 50 MCG/ML 2 ML AMP ONE (08:01)
[2019-07-30] MEDS ORDERED: ROPIVACAINE 5 MG/ML 30 ML VIAL ONE (08:01)
[2019-07-30] MEDS ORDERED: HEPARIN SODIUM,PORCINE 5,000 UNIT/ML 1 ML VIAL ONE (08:01)
[2019-07-30] MEDS ORDERED: MIDAZOLAM 2 MG/2 ML VIAL ONE (08:01)
[2019-07-30 08:08] LABS: Calcium 8.9 mg/dL (8.4-10.2); Potassium 3.8 mmol/L (3.5-5.1)
[2019-07-30] MEDS ORDERED: SODIUM CHLORIDE 0.9% 100 ML with ceFAZolin 2,000 MG IV ONE ×2 (08:20)
[2019-07-30] MEDS ORDERED: LIDOCAINE 2% (PF) 20 MG/ML 10 ML AMP SQ ONE (08:34)
[2019-07-30] MEDS ORDERED: ceFAZolin 2 GM in SODIUM CHLORIDE 0.9% 500 ML 500 ML IRRIGATION ONE (08:50)
[2019-07-30] MEDS ORDERED: SODIUM CHLORIDE 0.9% 500 ML 500 ML with HEPARIN SODIUM,PORCINE 5,000 UNIT IV ONE ×2 (08:50)
[2019-07-30 10:01] LABS: Glucose,Whole Blood 145 mg/dL (75-99)
[2019-07-30 10:07] VITALS: TEMP 96.8
--- NOTE | 2019-07-30 10:16 | P.OP ---
Date of Procedure: 07/30/19 Description of Procedure: Preoperative diagnosis: Chronic kidney disease, anticipated need for dialysis Postoperative diagnosis: Same Procedure: [Left upper extremity brachiocephalic AV fistula creation] Surgeon: Alea Guo D.O. EBL: [20 mL ] IV fluids: [200 mL] Urine output: [Not measured] Drains: [None] Complications: [None immediately apparent] Condition: [Stable to PACU] Operative indication and findings: [The patient is a 68-year-old female in today for creation of a left upper extremity AV fistula. She has chronic kidney disease and there is anticipated need for dialysis. Ultrasound in the office did reveal an appropriate size upper extremity cephalic vein and therefore risks and benefits of going forth with a brachiocephalic fistula creation were discussed with the patient. She seemingly understood and was willing to proceed.] Procedure in detail: [Patient was taken to the operative suite and placed in supine position. Left upper extremity was prepped and draped in a sterile fashion. A procedure timeout was performed, all parties in agreement. A preoperative block was performed. A transverse incision was made just proximal to the antecubital fossa and carried onto the level of the brachial artery this was dissected free proximally and distally. It was encircled vessel loops. Attention was then turned towards the cephalic vein. Dissection was carried out and this was identified. It was encircled and dissected free. After enough length had been dissected free, it was transected and the remaining distal stump was suture ligated with 6-0 silk. The vein was then dilated up to 3.5 and flushed with heparinized saline. The patient was heparinized and flow was occluded through the brachial artery. An arteriotomy was created with 11 blade and enlarged with the Braun scissors. An anastomosis created with 7-0 Prolene and prior to completion of the anastomosis the vein was allowed to backbleed, the arteries allowed to backbleed. The anastomosis was completed. The brachial artery was flushed through the newly created anastomosis prior to flushing down the hand. There was a good thrill through the fistula with a residual pulse in the left radial artery. This was confirmed with multiphasic flow on Doppler. There is copiously irrigated with antibiotic solution. The deep dermal tissues were reapproximated with 3-0 Vicryl. The skin was approximate with 4-0 Prolene. We was placed. The patient was allowed awaken from anesthesia and transferred to PACU in stable condition having tolerated the procedure well.] Plan - Discharge Summary New Discharge Prescriptions: No Action Metoprolol Tartrate [Lopressor] 25 mg PO BID Acetaminophen Tab [Tylenol] 650 mg PO Q6H PRN PRN Reason: Pain Darbepoetin Mckay [Aranesp] 40 mcg SQ WEEKLY Aspirin EC [Ecotrin Low Dose] 81 mg PO DAILY Allopurinol [Zyloprim] 100 mg PO DAILY Cholecalciferol [Vitamin D3 (25 Mcg = 1000 Iu)] 3,000 unit PO HS Ferrous Sulfate [Feosol] 325 mg PO HS Furosemide [Lasix] 40 mg PO DAILY amLODIPine [Norvasc] 10 mg PO HS Sodium Bicarbonate 650 mg PO DAILY Calcium Carbonate-Unknown Dose 1 tab PO TID Folic Acid-Vit B Complex-Vit C [Nephrocaps] 1 mg PO HS Discharge Medication List Metoprolol Tartrate [Lopressor] 25 mg PO BID 03/09/18 [History] Acetaminophen Tab [Tylenol] 650 mg PO Q6H PRN 01/26/19 [History] Aspirin EC [Ecotrin Low Dose] 81 mg PO DAILY 01/26/19 [History] Darbepoetin Mckay [Aranesp] 40 mcg SQ WEEKLY 01/26/19 [History] Allopurinol [Zyloprim] 100 mg PO DAILY 05/12/19 [History] Cholecalciferol [Vitamin D3 (25 Mcg = 1000 Iu)] 3,000 unit PO HS 05/12/19 [History] Ferrous Sulfate [Feosol] 325 mg PO HS 05/12/19 [History] Furosemide [Lasix] 40 mg PO DAILY 05/12/19 [History] Calcium Carbonate-Unknown Dose 1 tab PO TID 07/29/19 [History] Folic Acid-Vit B Complex-Vit C [Nephrocaps] 1 mg PO HS 07/29/19 [History] Sodium Bicarbonate 650 mg PO DAILY 07/29/19 [History] amLODIPine [Norvasc] 10 mg PO HS 07/29/19 [History] Follow up Appointment(s)/Referral(s): Alea Guo DO [STAFF PHYSICIAN] - 2 Weeks Activity/Diet/Wound Care/Special Instructions: May shower starting tomorrow. Resume normal activity as tolerated Discharge Disposition: HOME SELF-CARE
[2019-07-30 11:38] VITALS: BP 143/64; PULSE 60
== END 2019-07-30 12:19 ==
LOC: OR 06:21
PROVIDERS: ATTEND Surgery
DX: I13.0 Hypertensive heart and chronic kidney disease with heart failure and stage 1 through stage 4 chronic kidney disease, or unspecified chronic kidney disease (principal); E11.22 Type 2 diabetes mellitus with diabetic chronic kidney disease; N18.9 Chronic kidney disease, unspecified; I50.9 Heart failure, unspecified; E78.5 Hyperlipidemia, unspecified; Z79.82 Long term (current) use of aspirin; Z79.899 Other long term (current) drug therapy; Z88.0 Allergy status to penicillin; Z88.1 Allergy status to other antibiotic agents; Z88.8 Allergy status to other drugs, medicaments and biological substances
CPT/HCPCS: 36821; 93005; 64415; 76942; 80048; 87635; C1757; J2250; J1644; J2001; J0690 ×2; J2405; J3010; J2795; J2704; 64999

== ENCOUNTER 2019-11-25 10:44 | Day surgery (SDC) | payer MEDICARE, OTHER ==
[2019-11-18 13:33] VITALS: BMI 41.4
[~2019-11-25 10:44] MED LIST changes: +FAMOTIDINE 20 MG/2 ML VIAL IV PRN; +HYDROmorphone 0.5 MG/0.5 ML SYRINGE IVP PRN; +LACTATED RINGERS 1,000 ML IV SCH; +LIDOCAINE 1% (10MG/ML) FOR IV START INTRADERMA PRN; +ONDANSETRON 4 MG/2 ML VIAL IVP PRN; -Pre Op ABX Message 1 EACH MISC MISCELLANE ONE; +ceFAZolin 3 GM in SODIUM CHLORIDE 0.9% 100 ML IVPB ONE
[2019-11-25] MEDS ORDERED: ONDANSETRON 4 MG/2 ML VIAL ONE (11:03)
[2019-11-25 11:48] LABS: Basophils % (A) 0 %; Eosinophils # (A) 0.5 k/uL (0-0.7); Eosinophils % (A) 7 %; Hypochromasia Slight; Lymphocytes # (A) 0.9 k/uL (1.0-4.8); Lymphocytes % (A) 12 %; MCHC 32.2 g/dL (31.0-37.0); MCV 93.2 fL (80.0-100.0); Mean Platelet Volume 7.6; Monocytes # (A) 0.3 k/uL (0-1.0); Monocytes % (A) 4 %; Neutrophils # (A) 5.7 k/uL (1.3-7.7); Neutrophils % (A) 76 %; Platelet Count 188 k/uL (150-450); RDW 15.2 % (11.5-15.5); WBC 7.6 k/uL (3.8-10.6)
[2019-11-25] MEDS ORDERED: GLYCOPYRROLATE 0.2 MG/ML 2 ML VIAL ONE (12:51)
[2019-11-25] MEDS ORDERED: MIDAZOLAM 2 MG/2 ML VIAL ONE (12:51)
[2019-11-25] MEDS ORDERED: PROPOFOL 10 MG/ML 20 ML VIAL IV ONE (12:51)
[2019-11-25] MEDS ORDERED: KETAMINE 10 MG/ML 20 ML VIAL ONE (12:51)
[2019-11-25] MEDS ORDERED: fentaNYL (PF) 50 MCG/ML 2 ML AMP ONE (12:51)
[2019-11-25] MEDS ORDERED: SODIUM CHLORIDE 0.9% 500 ML 500 ML IV ONE (12:53)
[2019-11-25] MEDS ORDERED: LIDOCAINE 1% INJ 10MG/ML (20 ML MDV) SQ ONE (12:53)
[2019-11-25] MEDS ORDERED: HEPARIN SODIUM,PORCINE 2,000 UNIT in SODIUM CHLORIDE 0.9% 500 ML 500 ML IRRIGATION ONE (13:29)
[2019-11-25] MEDS ORDERED: ceFAZolin 1,000 MG VIAL IRRIGATION ONE (13:32)
[2019-11-25 14:08] VITALS: TEMP 97.5
--- NOTE | 2019-11-25 14:15 | P.OP ---
Date of Procedure: 11/25/19 Description of Procedure: Preoperative diagnosis: [CK D4, previously placed left upper extremity brachiocephalic fistula, multiple branches, non-maturation] Postoperative diagnosis: Same Procedure: [Ligation of branches to left upper extremity AV brachiocephalic fistula] Surgeon: Alea Guo D.O. EBL: [10 mL] IV fluids: [See records] Urine output: [None measured] Drains: [None] Complications: [None immediately apparent] Condition: [Stable to recovery] Operative indication and findings: The patient is a 69-year-old female with chronic kidney disease who previously had a left upper extremity brachiocephalic fistula created. Upon ultrasound and reposition the office, she had an area of non-maturation and just proximal to this were 2 large branches. She was brought to the operating room for ligation of these branches. Wrist and benefits were discussed. She seemingly understood and was willing to proceed as such[] Procedure in detail: [Patient was taken to the operative suite and placed in supine position. Left upper extremity is prepped and draped in usual sterile fashion. A pre-procedure, was performed, all parties were in agreement. The ultrasound was utilized and the offending branches were identified. The skin was marked. They were very close in proximity therefore a transverse incision was made after proper anesthetization of the skin and was able to incorporate both of these. Dissection with a cautery and scissors were performed to the level of the fistula itself. The 2 edges were identified and suture ligated with 3-0 silk. The area was irrigated. There was somewhat of a pulsatility through the fistula at this point due to the non-maturation more distally and smaller vessel at that point. There was good flow otherwise. The subcuticular tissues were approximate with interrupted sutures of 3-0 Vicryl. The skin was approximate with 4-0 Monocryl. Skin glue was placed. Patient was taken to recovery in stable condition and tolerated the procedure well. In the future she may need balloon dilatation of the further portions of the small vessel.] Plan - Discharge Summary Discharge Rx Participant: No New Discharge Prescriptions: No Action Metoprolol Tartrate [Lopressor] 25 mg PO BID Darbepoetin Mckay [Aranesp] 0.3 ml SQ FR Aspirin EC [Ecotrin Low Dose] 81 mg PO DAILY allopurinoL [Zyloprim] 100 mg PO DAILY Cholecalciferol [Vitamin D3 (25 Mcg = 1000 Iu)] 3,000 unit PO HS Ferrous Sulfate [Feosol] 325 mg PO BID Furosemide [Lasix] 40 mg PO DAILY amLODIPine [Norvasc] 10 mg PO HS Sodium Bicarbonate 650 mg PO AC-TID Folic Acid-Vit B Complex-Vit C [Nephrocaps] 1 mg PO HS Apixaban [Eliquis] 5 mg PO BID Calcium Carbonate 1,500 mg PO TID Psyllium Husk 100% [Metamucil Packet] 6 gm PO BID PRN PRN Reason: Diarrhea Discharge Medication List Metoprolol Tartrate [Lopressor] 25 mg PO BID 03/09/18 [History] Aspirin EC [Ecotrin Low Dose] 81 mg PO DAILY 01/26/19 [History] Darbepoetin Mckay [Aranesp] 0.3 ml SQ FR 01/26/19 [History] Cholecalciferol [Vitamin D3 (25 Mcg = 1000 Iu)] 3,000 unit PO HS 05/12/19 [History] Ferrous Sulfate [Feosol] 325 mg PO BID 05/12/19 [History] Furosemide [Lasix] 40 mg PO DAILY 05/12/19 [History] allopurinoL [Zyloprim] 100 mg PO DAILY 05/12/19 [History] Folic Acid-Vit B Complex-Vit C [Nephrocaps] 1 mg PO HS 07/29/19 [History] Sodium Bicarbonate 650 mg PO AC-TID 07/29/19 [History] amLODIPine [Norvasc] 10 mg PO HS 07/29/19 [History] Apixaban [Eliquis] 5 mg PO BID 11/20/19 [History] Calcium Carbonate 1,500 mg PO TID 11/20/19 [History] Psyllium Husk 100% [Metamucil Packet] 6 gm PO BID PRN 11/20/19 [History]
[2019-11-25 15:11] VITALS: RESP 20
[2019-11-25 16:39] VITALS: BP 160/74; PULSE 55
--- NOTE | 2019-11-27 14:33 | CDI ---
Date: 11.27.2019 CDS/Computer Terminal Operator Name: Lesly Cordon Phone: If any questions, call Sera Currie Director Of Medical Education at [phone] Patient Name: Lalitha Triplett Admit Date 11.25.19 Discharge Date: 11.25.19 ATTENTION: The [facility] Coding Staff appreciate your assistance in clarifying documentation. Please respond to the clarification below the line at the bottom and electronically sign. The [facility] Coding staff will review the response and follow-up if needed. Please note: Queries are made part of the Legal Health Record. If you have any questions, please contact the Director Of Medical Education. Dear Dr. Guo In order to code to the greatest specificity and for the greatest reimbursement I need the following information: In your H&P under active diagnosis list, you have documented ESRD. Then on your OP report you have documented CKD4. Please specify which stage the CKD is: PREVIOUS NEPHRO NOTES REVIEWED, STATE STAGE 5 MTDD
== END 2019-11-25 15:50 ==
LOC: OR 10:44
PROVIDERS: ATTEND Surgery
DX: T82.898A Other specified complication of vascular prosthetic devices, implants and grafts, initial encounter (principal); I77.0 Arteriovenous fistula, acquired; I13.2 Hypertensive heart and chronic kidney disease with heart failure and with stage 5 chronic kidney disease, or end stage renal disease; N18.5 Chronic kidney disease, stage 5; E11.22 Type 2 diabetes mellitus with diabetic chronic kidney disease; I50.9 Heart failure, unspecified; N17.9 Acute kidney failure, unspecified; D64.9 Anemia, unspecified; L03.90 Cellulitis, unspecified; E78.5 Hyperlipidemia, unspecified; E66.01 Morbid (severe) obesity due to excess calories; J90 Pleural effusion, not elsewhere classified; K08.409 Partial loss of teeth, unspecified cause, unspecified class; K08.89 Other specified disorders of teeth and supporting structures; M10.9 Gout, unspecified; R00.1 Bradycardia, unspecified; Z79.899 Other long term (current) drug therapy; Z79.82 Long term (current) use of aspirin; Z88.0 Allergy status to penicillin; Z88.8 Allergy status to other drugs, medicaments and biological substances; Z68.41 Body mass index [BMI] 40.0-44.9, adult; Z89.431 Acquired absence of right foot; Z90.49 Acquired absence of other specified parts of digestive tract; Z98.890 Other specified postprocedural states; Z87.42 Personal history of other diseases of the female genital tract; Z79.01 Long term (current) use of anticoagulants
CPT/HCPCS: 37607; 85025; J2250; J1644; J0690 ×2; J2405; J2001; J3010; J2704

== ENCOUNTER 2019-12-28 22:22 | Inpatient (IN) | payer MEDICARE, OTHER ==
[2019-12-28] MEDS ORDERED: ACETAMINOPHEN TAB 500 MG TAB PO STA (22:38)
[2019-12-28] MEDS ORDERED: IBUPROFEN 800 MG TAB PO STA (22:38)
--- NOTE | 2019-12-28 22:38 | ED ---
Fever HPI - General Chief Complaint: Abdominal Pain Stated Complaint: Fever Time Seen by Provider: 12/28/19 22:31 Source: patient, EMS, RN notes reviewed, old records reviewed Mode of arrival: EMS Limitations: physical limitation - History of Present Illness Initial Comments: There is a 69-year-old female DF for evaluation patient is shoe complaints cur rently mild shortness of breath with movement but mainly complaining of abdominal pain diarrhea fever. Patient does currently state metal lodged due to multiple chronic medical issues. Patient has no chest pain mild nausea no vomiting. Patient does get test for coronavirus once a week and has never tested positive MD Complaint: fever, malaise, weakness, other (Abdominal pain and diarrhea) -: minutes(s) Temperature Source: subjective Context: sick contacts Associated Symptoms: chills, myalgias, cough, shortness of breath, abdominal pain, nausea, diarrhea Treatments Prior to Arrival: none - Related Data Home Medications Medication Instructions Recorded Confirmed Metoprolol Tartrate [Lopressor] 25 mg PO BID 03/09/18 12/28/19 Aspirin EC [Ecotrin Low Dose] 81 mg PO DAILY 01/26/19 12/28/19 Cholecalciferol [Vitamin D3 (25 3,000 unit PO HS 05/12/19 12/28/19 Mcg = 1000 Iu)] Ferrous Sulfate [Feosol] 325 mg PO BID 05/12/19 12/28/19 Furosemide [Lasix] 40 mg PO DAILY 05/12/19 12/28/19 allopurinoL [Zyloprim] 100 mg PO DAILY 05/12/19 12/28/19 Folic Acid-Vit B Complex-Vit C 1 mg PO HS 07/29/19 12/28/19 [Nephrocaps] Sodium Bicarbonate 650 mg PO AC-TID 07/29/19 12/28/19 amLODIPine [Norvasc] 10 mg PO HS 07/29/19 12/28/19 Apixaban [Eliquis] 5 mg PO BID 11/20/19 12/28/19 Calcium Carbonate 1,000 mg PO TID 11/20/19 12/28/19 Psyllium Husk 100% [Metamucil 6 gm PO BID PRN 11/20/19 12/28/19 Packet] Darbepoetin Mckay [Aranesp] 60 mcg SQ FR 12/28/19 12/28/19 Allergies Allergy/AdvReac Type Severity Reaction Status Date / Time Penicillins Allergy Severe Rash/Hives, Verified 12/28/19 23:44 Itching simvastatin [From Zocor] AdvReac Severe constipation, Verified 12/28/19 23:44 dry cough pregabalin [From Lyrica] AdvReac Unknown Verified 12/28/19 23:44 tide laundry detergent Allergy Itching Uncoded 12/28/19 23:44 Review of Systems ROS Statement: Those systems with pertinent positive or pertinent negative responses have been documented in the HPI. ROS Other: All systems not noted in ROS Statement are negative. Past Medical History Past Medical History: Heart Failure, Diabetes Mellitus, Hyperlipidemia, Hypertension, Osteoarthritis (OA), Renal Disease, Skin Disorder Additional Past Medical History / Comment(s): Hx Cellulilus right leg, STAGE lll KINDNEY DISEASE ,Hx of respiratory failure with a trach ., constipation., Diet controlled diabetes, (no longer on medication).,Hx of decubitus ulcer on coccyx/right buttock (healed), current wounds on left foot heel & toes. ,no weight bearing left foot, can stand to transfer., [facility]IDES AT [facility] # [phone], HAS [employer]. 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,CATARACTS Past Anesthesia/Blood Transfusion Reactions: No Reported Reaction Additional Past Anesthesia/Blood Transfusion Reaction / Comment(s): clausterphobia Past Psychological History: No Psychological Hx Reported Smoking Status: Former smoker - Past Family History Father Additional Family Medical History / Comment(s): ALCOHOLIC Mother Family Medical History: Cancer, CVA/TIA, Diabetes Mellitus, Myocardial Infarction (CT) Additional Family Medical History / Comment(s): Colon cancer Brother(s) Additional Family Medical History / Comment(s): DRUG DEPENDENCY General Exam Limitations: physical limitation General appearance: alert, in no apparent distress, anxious, obese Head exam: Present: atraumatic, normocephalic, normal inspection Eye exam: Present: normal appearance, PERRL, EOMI. Absent: scleral icterus, conjunctival injection, periorbital swelling ENT exam: Present: normal exam, mucous membranes moist Neck exam: Present: normal inspection. Absent: tenderness, meningismus, lymphadenopathy Respiratory exam: Present: respiratory distress, rales, decreased breath sounds, prolonged expiratory. Absent: wheezes, rhonchi, stridor Cardiovascular Exam: Present: regular rate, normal rhythm, normal heart sounds. Absent: systolic murmur, diastolic murmur, rubs, gallop, clicks GI/Abdominal exam: Present: soft, normal bowel sounds. Absent: distended, tenderness, guarding, rebound, rigid Extremities exam: Present: normal inspection, full ROM, normal capillary refill. Absent: tenderness, pedal edema, joint swelling, calf tenderness Back exam: Present: normal inspection Neurological exam: Present: alert, oriented X3, CN II-XII intact Psychiatric exam: Present: normal affect, normal mood Skin exam: Present: warm, dry, intact, normal color. Absent: rash Course Vital Signs 12/28/19 12/28/19 12/28/19 22:25 23:41 23:51 Temperature 101.5 F H Pulse Rate 82 81 80 Respiratory 18 Rate Blood Pressure 193/83 O2 Sat by Pulse 99 Oximetry - Reevaluation(s) Reevaluation #1: 12/28/19 23:54 Medical records reviewed Reevaluation #2: 12/28/19 23:54 Patient no abdominal tenderness although having abdominal pain. Secondary dialysis no CT scan will be taken at this time Reevaluation #3: 12/28/19 23:54 Patient has mild improvement here in the ER breathing as well as pain - Consultations Consultation #1: [facility] agrees to admit this patient Medical Decision Making - Medical Decision Making 69 female with multiple chronic medical conditions coming in for fever diarrhea abdominal pain, enteritis rule out coronavirus and supportive care. - Lab Data Result diagrams: 12/28/19 22:42 12/28/19 22:42 Lab Results 12/28/19 12/28/19 12/28/19 Range/Units 22:42 22:42 22:42 WBC 15.6 H (3.8-10.6) k/uL RBC 3.63 L (3.80-5.40) m/uL Hgb 10.8 L (11.4-16.0) gm/dL Hct 34.1 (34.0-46.0) % MCV 93.9 (80.0-100.0) fL MCH 29.8 (25.0-35.0) pg MCHC 31.7 (31.0-37.0) g/dL RDW 14.7 (11.5-15.5) % Plt Count 131 L (150-450) k/uL Neutrophils % 94 % Lymphocytes % 2 % Monocytes % 3 % Eosinophils % 1 % Basophils % 0 % Neutrophils # 14.7 H (1.3-7.7) k/uL Lymphocytes # 0.3 L (1.0-4.8) k/uL Monocytes # 0.4 (0-1.0) k/uL Eosinophils # 0.1 (0-0.7) k/uL Basophils # 0.0 (0-0.2) k/uL Hypochromasia Slight PT 10.1 (9.0-12.0) sec INR 1.0 (<1.2) APTT 27.1 (22.0-30.0) sec D-Dimer 0.30 (<0.60) mg/L FEU Sodium 137 (137-145) mmol/L Potassium 4.6 (3.5-5.1) mmol/L Chloride 110 H (98-107) mmol/L Carbon Dioxide 18 L (22-30) mmol/L Anion Gap 9 mmol/L BUN 79 H (7-17) mg/dL Creatinine 4.25 H (0.52-1.04) mg/dL Est GFR (CKD-EPI)AfAm 12 (>60 ml/min/1.73 sqM) Est GFR (CKD-EPI)NonAf 10 (>60 ml/min/1.73 sqM) Glucose 170 H (74-99) mg/dL Plasma Lactic Acid Jamar (0.7-2.0) mmol/L Calcium 8.5 (8.4-10.2) mg/dL Magnesium 1.8 (1.6-2.3) mg/dL Total Bilirubin 0.4 (0.2-1.3) mg/dL AST 22 (14-36) U/L ALT 14 (4-34) U/L Alkaline Phosphatase 60 (38-126) U/L Lactate Dehydrogenase 426 (313-618) U/L C-Reactive Protein 24.0 H (<10.0) mg/L Total Protein 6.0 L (6.3-8.2) g/dL Albumin 3.1 L (3.5-5.0) g/dL 12/28/19 Range/Units 22:42 WBC (3.8-10.6) k/uL RBC (3.80-5.40) m/uL Hgb (11.4-16.0) gm/dL Hct (34.0-46.0) % MCV (80.0-100.0) fL MCH (25.0-35.0) pg MCHC (31.0-37.0) g/dL RDW (11.5-15.5) % Plt Count (150-450) k/uL Neutrophils % % Lymphocytes % % Monocytes % % Eosinophils % % Basophils % % Neutrophils # (1.3-7.7) k/uL Lymphocytes # (1.0-4.8) k/uL Monocytes # (0-1.0) k/uL Eosinophils # (0-0.7) k/uL Basophils # (0-0.2) k/uL Hypochromasia PT (9.0-12.0) sec INR (<1.2) APTT (22.0-30.0) sec D-Dimer (<0.60) mg/L FEU Sodium (137-145) mmol/L Potassium (3.5-5.1) mmol/L Chloride (98-107) mmol/L Carbon Dioxide (22-30) mmol/L Anion Gap mmol/L BUN (7-17) mg/dL Creatinine (0.52-1.04) mg/dL Est GFR (CKD-EPI)AfAm (>60 ml/min/1.73 sqM) Est GFR (CKD-EPI)NonAf (>60 ml/min/1.73 sqM) Glucose (74-99) mg/dL Plasma Lactic Acid Jamar 0.8 (0.7-2.0) mmol/L Calcium (8.4-10.2) mg/dL Magnesium (1.6-2.3) mg/dL Total Bilirubin (0.2-1.3) mg/dL AST (14-36) U/L ALT (4-34) U/L Alkaline Phosphatase (38-126) U/L Lactate Dehydrogenase (313-618) U/L C-Reactive Protein (<10.0) mg/L Total Protein (6.3-8.2) g/dL Albumin (3.5-5.0) g/dL - EKG Data -: EKG Interpreted by Me (EKG is sinus rhythm 81 MT 160 QRS 92 QTC 441) - Radiology Data Radiology results: report reviewed (X-ray abdominal series with chest show CHF), image reviewed Disposition Clinical Impression: Fever, Abdominal pain, Enteritis, CHF exacerbation, Renal failure, Pulmonary edema, Severe obesity (BMI >= 40) Narrative: ro COVID Disposition: ADMITTED IP TO THIS [facility] Condition: Fair Is patient prescribed a controlled substance at d/c from ED?: No Referrals: Dav Roldan DO [Primary Care Provider] - 1-2 days
[2019-12-28 22:56] LABS: Basophils % (A) 0 %; Eosinophils # (A) 0.1 k/uL (0-0.7); Eosinophils % (A) 1 %; HCT 34.1 % (34.0-46.0); HGB 10.8 gm/dL (11.4-16.0); Hypochromasia Slight; Lymphocytes # (A) 0.3 k/uL (1.0-4.8); Lymphocytes % (A) 2 %; MCH 29.8 pg (25.0-35.0); MCHC 31.7 g/dL (31.0-37.0); MCV 93.9 fL (80.0-100.0); Mean Platelet Volume 7.8; Monocytes # (A) 0.4 k/uL (0-1.0); Monocytes % (A) 3 %; Neutrophils # (A) 14.7 k/uL (1.3-7.7); Neutrophils % (A) 94 %; Platelet Count 131 k/uL (150-450); RBC 3.63 m/uL (3.80-5.40); RDW 14.7 % (11.5-15.5); WBC 15.6 k/uL (3.8-10.6)
[2019-12-28 23:10] LABS: Albumin 3.1 g/dL (3.5-5.0); Calcium 8.5 mg/dL (8.4-10.2); Magnesium 1.8 mg/dL (1.6-2.3); Potassium 4.6 mmol/L (3.5-5.1); Total Bilirubin 0.4 mg/dL (0.2-1.3)
[2019-12-28 23:13] LABS: D-Dimer 0.3 mg/L FEU (<0.60); Partial Thromboplastin Time 27.1 sec (22.0-30.0); Prothrombin Time 10.1 sec (9.0-12.0)
[2019-12-28] MEDS ORDERED: IPRATROPIUM-ALBUTEROL 3 ML NEB INHALATION STA (23:23)
--- NOTE | 2019-12-28 23:42 | XR ---
EXAMINATION TYPE: XR abdomen acute w cxr DATE OF EXAM: 12/28/2019 COMPARISON: 03/09/2018 HISTORY: Abdominal pain TECHNIQUE: FINDINGS: 4 views were obtained including chest x-ray. There is poor inspiration. There is mild pulmonary congestion. There is no pleural effusion. There is no obvious heart failure. There is no sign of intestinal obstruction or pneumoperitoneum. Fecal pattern is normal. There are mu ltiple sutures over the upper mid abdomen. There is no evidence of a mass. There are no pathologic ca lcifications over the kidneys. Bony structures are intact. IMPRESSION: Nonacute abdomen. Mild pulmonary congestion without obvious heart failure. Abdomen not si gnificantly different than old exam.
[2019-12-29] MEDS: FUROSEMIDE 10 MG/ML 4 ML VIAL IV SCH ×3 (00:29→23:15)
[2019-12-29] MEDS: IPRATROPIUM-ALBUTEROL 3 ML NEB INHALATION PRN ×2 (03:11→07:31)
[2019-12-29] MEDS ORDERED: ACETAMINOPHEN TAB 500 MG TAB PO STA (03:33)
--- NOTE | 2019-12-29 09:14 | XR ---
EXAMINATION TYPE: XR chest 1V DATE OF EXAM: 12/29/2019 COMPARISON: 01/27/2019 INDICATION: Pneumonia TECHNIQUE: Single frontal view of the chest is obtained. FINDINGS: The heart size is normal. The pulmonary vasculature is normal. Mild infiltrate may be in the right infrahilar region. There is elevation of the right diaphragm. IMPRESSION: 1. There may be a mild right infrahilar infiltrate. Follow-up exams can be performed as clinically in dicated.
[2019-12-29] MEDS: ACETAMINOPHEN TAB 325 MG TAB PO PRN ×2 (10:07→23:14)
[2019-12-29 11:42] LABS: Glucose,Whole Blood 156 mg/dL (75-99)
--- NOTE | 2019-12-29 11:51 | P.CRDCN ---
History of Present Illness Consult date: 12/29/19 Consult reason: congestive heart failure Chief complaint: Shortness of breath, abdominal pain, diarrhea and fever History of present illness: This is a 69-year-old female with documented history of diabetes, hyp erlipidemia, hypertension, chronic lower extremity wounds for which she gets treated at the wound center, obesity, history of smoking, kidney disease stage III, patient states she was on dialysis 3 times a week, but because of improvement in her kidneys she has not recently undergone any dialysis. She presents to the hospital on this occasion with symptoms of abdominal pain, cramping, diarrhea and fever. Patient also states that she has felt more short of breath than her usual. Her EKG on presentation here showed normal sinus rhythm with no acute changes. The chest x-ray showed questionable mild right infiltrate blood pressure 155/60 with a heart rate in the 70s 96% on room air. White blood cell count 15.6, hemoglobin 10.8, platelet count 131. D-dimer 0.30. Sodium 137, potassium 4.6, BUN 79 and creatinine 4.2, troponins 0.012, 0.017. BNP 6730. [place] virus testing has been done but is pending. Patient was initiated on 40 mg of IV Lasix twice a day by the emergency room physician, she has diuresed overall. Past Medical History Past Medical History: Heart Failure, Diabetes Mellitus, Deep Vein Thrombosis (DVT), GERD/Reflux, Hyperlipidemia, Hypertension, Osteoarthritis (OA), Renal Disease, Seizure Disorder, Skin Disorder, Vascular Disorder Additional Past Medical History / Comment(s): 2017 respiratory failure with coma/trach/vent, NIDDM type II, neuropathy bilateral feet, DVT L leg, PVD, CKD stage III/has L arm AV fistula with past dialysis, chronic anemia, pt believes she has had gout, PVD, current wound L heel/toes, past decub coccyx/R buttock, cellulitis R leg, osteomylitis R foot/toes, constipation/diverticular disease, bilateral tinnitis, History of Any Multi-Drug Resistant Organisms: MRSA Date of last positivie culture/infection: 01/25/19 MDRO Source:: FOOT Past Surgical History: Appendectomy, Cholecystectomy, Orthopedic Surgery Additional Past Surgical History / Comment(s): 11/25/19 ligation branches L upper extremity fistula, 07/2019 L arm A/V fistula, partial amputation R 5th/3rd toe, bilateral cataracts/lens/RK, ovarian cystectomy. Past Anesthesia/Blood Transfusion Reactions: No Reported Reaction Additional Past Anesthesia/Blood Transfusion Reaction / Comment(s): clausterphobia Smoking Status: Former smoker - Past Family History Father Additional Family Medical History / Comment(s): ALCOHOLIC Mother Family Medical History: Cancer, CVA/TIA, Diabetes Mellitus, Myocardial Infarction ([place]) Additional Family Medical History / Comment(s): Colon cancer Brother(s) Additional Family Medical History / Comment(s): DRUG DEPENDENCY Medications and Allergies Home Medications Medication Instructions Recorded Confirmed Type Metoprolol Tartrate [Lopressor] 25 mg PO BID 03/09/18 12/28/19 History Aspirin EC [Ecotrin Low Dose] 81 mg PO DAILY 01/26/19 12/28/19 History Cholecalciferol [Vitamin D3 (25 3,000 unit PO HS 05/12/19 12/28/19 History Mcg = 1000 Iu)] Ferrous Sulfate [Feosol] 325 mg PO BID 05/12/19 12/28/19 History Furosemide [Lasix] 40 mg PO DAILY 05/12/19 12/28/19 History allopurinoL [Zyloprim] 100 mg PO DAILY 05/12/19 12/28/19 History Folic Acid-Vit B Complex-Vit C 1 mg PO HS 07/29/19 12/28/19 History [Nephrocaps] Sodium Bicarbonate 650 mg PO AC-TID 07/29/19 12/28/19 History amLODIPine [Norvasc] 10 mg PO HS 07/29/19 12/28/19 History Apixaban [Eliquis] 5 mg PO BID 11/20/19 12/28/19 History Calcium Carbonate 1,000 mg PO TID 11/20/19 12/28/19 History Psyllium Husk 100% [Metamucil 6 gm PO BID PRN 11/20/19 12/28/19 History Packet] Darbepoetin Mckay [Aranesp] 60 mcg SQ FR 12/28/19 12/28/19 History Allergies Allergy/AdvReac Type Severity Reaction Status Date / Time Penicillins Allergy Severe Rash/Hives, Verified 12/28/19 23:44 Itching simvastatin [From Zocor] AdvReac Severe constipation, Verified 12/28/19 23:44 dry cough pregabalin [From Lyrica] AdvReac Unknown Verified 12/28/19 23:44 tide laundry detergent Allergy Itching Uncoded 12/28/19 23:44 Physical Exam Vitals: Vital Signs Temp Pulse Pulse Resp BP BP Pulse Ox 12/29/19 08:00 22 12/29/19 07:42 71 12/29/19 07:31 67 12/29/19 07:00 98.6 F 70 18 155/64 96 12/29/19 06:00 100 F H 71 18 99 12/29/19 03:21 81 12/29/19 03:11 76 12/29/19 02:00 100.4 F H 85 18 171/76 12/29/19 00:00 100.6 F H 85 16 175/66 12/28/19 23:51 80 12/28/19 23:41 81 12/28/19 22:25 101.5 F H 82 18 193/83 99 Intake and Output 12/28/19 12/29/19 12/29/19 22:59 06:59 14:59 Other: Voiding Method Incontinent Weight 124.738 kg 124.738 kg PHYSICAL EXAMINATION: GENERAL: 69-year-old female in no acute distress at the time of my exa mination HEENT: Head is atraumatic, normocephalic. Pupils equal, round. Sclera anicteric. Conjunctiva are clear. Mucous membranes of the mouth are moist. Neck is supple. There is no elevated jugular venous pressure. No carotid bruit is heard. HEART EXAMINATION: Heart S1, S2 normal. No murmur or gallop heard. CHEST EXAMINATION: Lungs reveal diminished air entry posteriorly to the bases w ith fine crackles heard ABDOMEN: Soft, nontender. Bowel sounds are heard. No organomegaly noted. EXTREMITIES: 2+ peripheral pulses with trace to 1+ evidence of peripheral edema, evidence of bilateral ear erythema and possible cellulitis. NEUROLOGIC patient is awake, alert and oriented 3 . . Results 12/28/19 22:42 12/28/19 22:42 Cardiac Enzymes 12/28/19 12/28/19 12/29/19 Range/Units 22:42 22:42 02:10 AST 22 (14-36) U/L Lactate Dehydrogenase 426 (313-618) U/L Troponin I <0.012 0.017 (0.000-0.034) ng/mL Coagulation 12/28/19 Range/Units 22:42 PT 10.1 (9.0-12.0) sec APTT 27.1 (22.0-30.0) sec CBC 12/28/19 Range/Units 22:42 WBC 15.6 H (3.8-10.6) k/uL RBC 3.63 L (3.80-5.40) m/uL Hgb 10.8 L (11.4-16.0) gm/dL Hct 34.1 (34.0-46.0) % Plt Count 131 L (150-450) k/uL Comprehensive Metabolic Panel 12/28/19 Range/Units 22:42 Sodium 137 (137-145) mmol/L Potassium 4.6 (3.5-5.1) mmol/L Chloride 110 H (98-107) mmol/L Carbon Dioxide 18 L (22-30) mmol/L BUN 79 H (7-17) mg/dL Creatinine 4.25 H (0.52-1.04) mg/dL Glucose 170 H (74-99) mg/dL Calcium 8.5 (8.4-10.2) mg/dL AST 22 (14-36) U/L ALT 14 (4-34) U/L Alkaline Phosphatase 60 (38-126) U/L Total Protein 6.0 L (6.3-8.2) g/dL Albumin 3.1 L (3.5-5.0) g/dL Current Medications Generic Name Dose Route Start Last Admin Trade Name Conradoq PRN Reason Stop Dose Admin Acetaminophen 650 mg 12/29/19 09:38 12/29/19 10:07 Acetaminophen Tab 325 Mg Tab PO 650 mg Q4HR PRN Administration Fever and/ or Pain Albuterol/Ipratropium 3 ml 12/28/19 23:56 12/29/19 07:31 Ipratropium-Albuterol 3 Ml Neb INHALATION 3 ml RT-Q4H PRN Administration shortness of breath Furosemide 40 mg 12/28/19 23:45 12/29/19 00:29 Furosemide 10 Mg/Ml 4 Ml Vial IV 40 mg Q12H SHERWIN Administration Intake and Output 12/28/19 12/29/19 12/29/19 22:59 06:59 14:59 Other: Voiding Method Incontinent Weight 124.738 kg 124.738 kg Patient Weight 12/30/19 06:59 Weight 124.738 kg 12/28/19 22:42 12/28/19 22:42 EKG Interpretations (text) EKG shows normal sinus rhythm with no acute changes. Assessment and Plan Plan: Assessment and plan #1 abdominal pain, diarrhea and fever #2 shortness of breath, possible mild congestive heart failure, LV function unknown #3 diabetes #4 hyperlipidemia #5 hypertension #6 chronic lower extremity wounds #7 chronic kidney disease stage III, creatinine 4.2 #8 history of nicotine dependence Plan We will continue current dose of IV Lasix for 24 hours, we will resume the patient's home medications including Eliquis, we will decrease the dose to 2-1/2 mg twice a day, resume metoprolol 25 mg one tablet by mouth twice a day. Obtain an echocardiogram with Doppler study. Monitor the patient's intake and output along with daily weights and daily lytes BUN and creatinine. Nephrology consultation requested. DNP note has been reviewed, I agree with a documented findings and plan of care. Patient was seen and examined.
[2019-12-29] MEDS: METOPROLOL TARTRATE 25 MG TAB PO SCH ×2 (12:42→20:59)
[2019-12-29] MEDS: APIXABAN 2.5 MG TABLET PO SCH ×2 (12:42→20:59)
[2019-12-29] MEDS: HYDROcodone/APAP 5-325MG 1 EACH TAB PO PRN (13:17)
[2019-12-29] MEDS: IOPAMIDOL CONTRAST (ORAL USE) VIAL PO PRN ×2 (14:41→15:40)
--- NOTE | 2019-12-29 15:00 | P.HPIM ---
History of Present Illness 69-year-old female with documented history of diabetes, hyperlipidemia, hypertension, chronic lower extremity wounds for which she gets treated at the wound center, obesity, history of smoking, kidney disease stage III, patient states she was on dialysis 3 times a week, but because of improvement in her kidneys she has not recently undergone any dialysis. She presents to the hospital on this occasion with symptoms of abdominal pain, cramping, diarrhea and fever.his abdominal pain is diffuse moderate in severity presently comparing of bilateral hip pain. Patient also states that she has felt more short of breath than her usual. Her EKG on presentation here showed normal sinus rhythm with no acute changes. The chest x-ray showed questionable mild right infiltrate , patient had elevated BNP up to 6700 because of which calibration specialist consulted daily believe patient has some heart failure echocardiac is being up and patient was started on Lasix. Patient does haveelevated creatinine of 4 of 4.25. Yesterday her baseline recently. nephrology was consulted as well. Unfortunately I do not have any urinalysis available I'll order UA, patient is presently on Rocephin which will be continued and is also on metronidazolebecause of concerns of colitis, considering her diarrhea C. diff will be obtained as well. Review of Systems REVIEW OF SYSTEMS: CONSTITUTIONAL: as mentioned in HPI HEENT: No recent visual problems or hearing problems. Denied any sore throat. CARDIOVASCULAR: No chest pain, orthopnea, PND, no palpitations, no syncope. PULMONARY:, no hemoptysis. GASTROINTESTINAL:as mentioned in HPI NEUROLOGICAL: No headaches, no weakness, no numbness. HEMATOLOGICAL: Denies any bleeding or petechiae. GENITOURINARY: Denies any burning micturition, frequency, or urgency. MUSCULOSKELETAL/RHEUMATOLOGICAL: Denies any joint pain, swelling, or any muscle pain. ENDOCRINE: Denies any polyuria or polydipsia. The rest of the 14-point review of systems is negative. Past Medical History Past Medical History: Heart Failure, Diabetes Mellitus, Deep Vein Thrombosis (DVT), GERD/Reflux, Hyperlipidemia, Hypertension, Osteoarthritis (OA), Renal Disease, Seizure Disorder, Skin Disorder, Vascular Disorder Additional Past Medical History / Comment(s): 2018 respiratory failure with coma/trach/vent, NIDDM type II, neuropathy bilateral feet, DVT L leg, PVD, CKD stage III/has L arm AV fistula with past dialysis, chronic anemia, pt believes she has had gout, PVD, current wound L heel/toes, past decub coccyx/R buttock, cellulitis R leg, osteomylitis R foot/toes, constipation/diverticular disease, bilateral tinnitis, History of Any Multi-Drug Resistant Organisms: MRSA Date of last positivie culture/infection: 01/25/19 MDRO Source:: FOOT Past Surgical History: Appendectomy, Cholecystectomy, Orthopedic Surgery Additional Past Surgical History / Comment(s): 11/25/19 ligation branches L upper extremity fistula, 07/2019 L arm A/V fistula, partial amputation R 5th/3rd toe, bilateral cataracts/lens/RK, ovarian cystectomy. Past Anesthesia/Blood Transfusion Reactions: No Reported Reaction Additional Past Anesthesia/Blood Transfusion Reaction / Comment(s): clausterphobia Smoking Status: Former smoker - Past Family History Father Additional Family Medical History / Comment(s): ALCOHOLIC Mother Family Medical History: Cancer, CVA/TIA, Diabetes Mellitus, Myocardial Infarction ([place]) Additional Family Medical History / Comment(s): Colon cancer Brother(s) Additional Family Medical History / Comment(s): DRUG DEPENDENCY Medications and Allergies Home Medications Medication Instructions Recorded Confirmed Type Metoprolol Tartrate [Lopressor] 25 mg PO BID 03/09/18 12/28/19 History Aspirin EC [Ecotrin Low Dose] 81 mg PO DAILY 01/26/19 12/28/19 History Cholecalciferol [Vitamin D3 (25 3,000 unit PO HS 05/12/19 12/28/19 History Mcg = 1000 Iu)] Ferrous Sulfate [Feosol] 325 mg PO BID 05/12/19 12/28/19 History Furosemide [Lasix] 40 mg PO DAILY 05/12/19 12/28/19 History allopurinoL [Zyloprim] 100 mg PO DAILY 05/12/19 12/28/19 History Folic Acid-Vit B Complex-Vit C 1 mg PO HS 07/29/19 12/28/19 History [Nephrocaps] Sodium Bicarbonate 650 mg PO AC-TID 07/29/19 12/28/19 History amLODIPine [Norvasc] 10 mg PO HS 07/29/19 12/28/19 History Apixaban [Eliquis] 5 mg PO BID 11/20/19 12/28/19 History Calcium Carbonate 1,000 mg PO TID 11/20/19 12/28/19 History Psyllium Husk 100% [Metamucil 6 gm PO BID PRN 11/20/19 12/28/19 History Packet] Darbepoetin Mckay [Aranesp] 60 mcg SQ FR 12/28/19 12/28/19 History Allergies Allergy/AdvReac Type Severity Reaction Status Date / Time Penicillins Allergy Severe Rash/Hives, Verified 12/28/19 23:44 Itching simvastatin [From Zocor] AdvReac Severe constipation, Verified 12/28/19 23:44 dry cough pregabalin [From Lyrica] AdvReac Unknown Verified 12/28/19 23:44 tide laundry detergent Allergy Itching Uncoded 12/28/19 23:44 Physical Exam Vitals: Vital Signs Temp Pulse Pulse Resp BP BP Pulse Ox 12/29/19 12:17 99.3 F 77 20 183/68 98 12/29/19 08:00 22 12/29/19 07:42 71 12/29/19 07:31 67 12/29/19 07:00 98.6 F 70 18 155/64 96 12/29/19 06:00 100 F H 71 18 99 12/29/19 03:21 81 12/29/19 03:11 76 12/29/19 02:00 100.4 F H 85 18 171/76 12/29/19 00:00 100.6 F H 85 16 175/66 12/28/19 23:51 80 12/28/19 23:41 81 12/28/19 22:25 101.5 F H 82 18 193/83 99 Intake and Output 12/28/19 12/29/19 12/29/19 22:59 06:59 14:59 Other: Voiding Method Incontinent # Voids 1 Weight 124.738 kg 124.738 kg PHYSICAL EXAMINATION: GENERAL: The patient is alert and oriented x3, patient is in distress because of pain in the both hip areas Well developed, well nourished. HEENT: Pupils are round and equally reacting to light. EOMI. No scleral icterus. No conjunctival pallor. Normocephalic, atraumatic. No pharyngeal erythema. No thyromegaly. CARDIOVASCULAR: S1 and S2 present. No murmurs, rubs, or gallops. PULMONARY: a very bibasilar crackles ABDOMEN: Soft, nontender, nondistended, normoactive bowel sounds. No palpable organomegaly. MUSCULOSKELETAL: No joint swelling or deformity. EXTREMITIES: No cyanosis, clubbing, or pedal edema. NEUROLOGICAL: Gross neurological examination did not reveal any focal deficits. SKIN: No rashes. Results CBC & Chem 7: 12/28/19 22:42 12/28/19 22:42 Labs: Abnormal Lab Results - Last 24 Hours (Table) 12/28/19 12/28/19 12/29/19 Range/Units 22:42 22:42 11:40 WBC 15.6 H (3.8-10.6) k/uL RBC 3.63 L (3.80-5.40) m/uL Hgb 10.8 L (11.4-16.0) gm/dL Plt Count 131 L (150-450) k/uL Neutrophils # 14.7 H (1.3-7.7) k/uL Lymphocytes # 0.3 L (1.0-4.8) k/uL Chloride 110 H (98-107) mmol/L Carbon Dioxide 18 L (22-30) mmol/L BUN 79 H (7-17) mg/dL Creatinine 4.25 H (0.52-1.04) mg/dL Glucose 170 H (74-99) mg/dL POC Glucose (mg/dL) 156 H (75-99) mg/dL C-Reactive Protein 24.0 H (<10.0) mg/L Total Protein 6.0 L (6.3-8.2) g/dL Albumin 3.1 L (3.5-5.0) g/dL Thrombosis Risk Factor Assmnt - Choose All That Apply Any of the Below Risk Factors Present?: Yes Each Factor Represents 1 point: Heart failure (<1month), Medical pt on bed rest, Obesity (BMI >25), Swollen legs (current) Other Risk Factors: Yes Each Risk Factor Represents 2 Points: Age 61-74 years, Patient confined to bed Other congenital or acquired thrombophilia - If yes, enter type in comment: No Thrombosis Risk Factor Assessment Total Risk Factor Score: 8 Thrombosis Risk Factor Assessment Level: High Risk Assessment and Plan Plan: -sepsis: Possible source being colitis patient was started on the ceftriaxone and metronidazole, UA with urine cultures will be obtained as well. Covid 19 will be ruled out. -Possible congestive heart failure chronic diastolic dysfunction with acute exacerbation patient will continue the Lasix for now nephrology is consulted as a -Chronic kidney disease stage V nephrology is consulted patient creatinine is 4.2. -Type 2 diabetes mellitus -Hypertension -Hyperlipidemia -Chronic left heel ulcer: In infectious disease is evaluating the patient management of this ulcer is for them -Nicotine abusehistory presently not a smoker -history of DVT patient is on the Eliquis which will be continued -Gastroesophageal disease peripheral vascular disease
[2019-12-29] MEDS ORDERED: PSYLLIUM HUSK 100% 6 GM PACKET PO PRN (15:01)
[2019-12-29 15:49] VITALS: BMI 39.4
--- NOTE | 2019-12-29 16:22 | CT ---
EXAMINATION TYPE: CT abdomen pelvis wo con DATE OF EXAM: 12/29/2019 COMPARISON: 03/05/2018 INDICATION: Fever and abdominal pain. DLP: 1416.2 mGycm, Automated exposure control for dose reduction was used. CONTRAST: 0 mL of Isovue 300. Study performed with Oral Contrast TECHNIQUE: Axial images were obtained from above the diaphragm to the pubic rami in the axial plane a t 5 mm thick sections. Reconstructed images are reviewed on the computer in the coronal plane. FINDINGS: Limited CT sections are obtained the lung bases. Mild left lower lobe dependent infiltrate may be pr esent, likely on the basis of atelectasis.. CT ABDOMEN: Liver: Normal Spleen: Normal Pancreas: Normal Adrenal glands: Right adrenal gland is enlarged measuring 3.9 cm in diameter. Consider dynamic contra st CT for additional evaluation. Gallbladder: Decompressed and poorly visualized. Kidneys: No masses are evident. No hydronephrosis is present. No cysts are present. No renal stone s are identified. Aorta: Vascular calcification is within the aorta. Inferior vena cava: Normal. CT PELVIS: Loops of bowel within the abdomen and pelvis are normal. Diverticulosis without acute diverticulitis is within the sigmoid colon. There are loops of bowel which are incompletely distended or lack ora l contrast limiting their evaluation. Appendix: Not identified. No suspicious dilated tubular structures or inflammatory changes are eviden t. Urinary bladder: Normal. Genitourinary structures: Uterus appears unremarkable. Adnexal regions appear normal Osseous structures: No suspicious lytic or sclerotic lesions. Sacroiliac joint degenerative changes a nd vacuum phenomenon is present. Small sclerotic areas within the right pubic symphysis. Facet degene rative changes are present. IMPRESSIONS: 1. Diverticulosis without acute diverticulitis. 2. Enlarged right adrenal gland. Dynamic CT abdomen with contrast can evaluate the adrenal gland.
[2019-12-29] MEDS: CALCIUM CARBONATE 500 MG CHEWABLE PO SCH ×2 (16:41→20:59)
[2019-12-29] MEDS: SODIUM BICARBONATE TAB 650 MG TAB PO SCH (16:42)
[2019-12-29 16:51] LABS: Glucose,Whole Blood 160 mg/dL (75-99)
[2019-12-29 17:04] LABS: Appearance,Urine Cloudy (Clear); Bacteria,Urine Many /hpf; Bilirubin,Urine Negative (Negative); Blood,Urine Small (Negative); Color,Urine Light Yellow; Glucose,Urine (UA) Negative (Negative); Ketones,Urine Negative (Negative); Leukocyte Esterase,Urine Large (Negative); Mucus,Urine Rare /hpf; Nitrite,Urine Negative (Negative); Protein,Urine 2+ (Negative); RBC,Urine 6 /hpf (0-5); Squamous Epithelial Cell,Urine 4 /hpf (0-4); Urobilinogen,Urine <2.0 mg/dL (<2.0); WBC,Urine 12 /hpf (0-5)
[2019-12-29] MEDS: metroNIDAZOLE-NS PMX 500 MG in SALINE 1 100ML.BAG IVPB SCH ×2 (17:53→23:16)
[2019-12-29 20:20] LABS: Glucose,Whole Blood 162 mg/dL (75-99)
[2019-12-29] MEDS: FERROUS SULFATE 325 MG TAB PO SCH (20:58)
[2019-12-29] MEDS: CHOLECALCIFEROL 1,000 UNIT TAB PO SCH (20:58)
[2019-12-29] MEDS: amLODIPine 10 MG TAB PO SCH (20:59)
--- NOTE | 2019-12-29 22:43 | P.CONS ---
History of Present Illness - Reason for Consult Consult date: 12/29/19 Fever Requesting physician: Daya Mosqueda - Chief Complaint Abdominal pain diarrhea x few days - History of Present Illness Patient is 69 year old female with a past medical history significant for diabetes mellitus hypertension hyperlipidemia patient presented to hospital with abdominal pain of one-day duration. Is mostly cramping in nature lower abdominal amount 5-6 out of 10 and no radiation is also complaining of diarrhea with multiple loose stool no bloody mucus in the stool no nausea no vomiting no chest pain , did have mild shortness of breath and a cough nor pitting of any sputum and no need for any supplemental oxygen, with recent and the patient was evaluated by the ER physician , on arrival to the ER the patient did have fever of 101.5F patient did have elevated to 15.6 did have a positive UA, patient did have a chest x-ray with mild right infrahilar infiltrate patient has been admitted to the hospital infection disease was consulted for further management of antibiotic therapy Review of Systems Positive point has been mentioned in the HPI rest of the systems are negative Past Medical History Past Medical History: Heart Failure, Diabetes Mellitus, Deep Vein Thrombosis (DVT), GERD/Reflux, Hyperlipidemia, Hypertension, Osteoarthritis (OA), Renal Disease, Seizure Disorder, Skin Disorder, Vascular Disorder Additional Past Medical History / Comment(s): 2018 respiratory failure with coma/trach/vent, NIDDM type II, neuropathy bilateral feet, DVT L leg, PVD, CKD stage III/has L arm AV fistula with past dialysis, chronic anemia, pt believes she has had gout, PVD, current wound L heel/toes, past decub coccyx/R buttock, cellulitis R leg, osteomylitis R foot/toes, constipation/diverticular disease, bilateral tinnitis, History of Any Multi-Drug Resistant Organisms: MRSA Year Discovered:: 01/25/19 MDRO Source:: FOOT Past Surgical History: Appendectomy, Cholecystectomy, Orthopedic Surgery Additional Past Surgical History / Comment(s): 11/25/19 ligation branches L upper extremity fistula, 07/2019 L arm A/V fistula, partial amputation R 5th/3rd toe, bilateral cataracts/lens/RK, ovarian cystectomy. Past Anesthesia/Blood Transfusion Reactions: No Reported Reaction Additional Past Anesthesia/Blood Transfusion Reaction / Comm: clausterphobia Smoking Status: Former smoker - Past Family History Father Additional Family Medical History / Comment(s): ALCOHOLIC Mother Family Medical History: Cancer, CVA/TIA, Diabetes Mellitus, Myocardial Infarctio n ([place]) Additional Family Medical History / Comment(s): Colon cancer Brother(s) Additional Family Medical History / Comment(s): DRUG DEPENDENCY Medications and Allergies Home Medications Medication Instructions Recorded Confirmed Type Metoprolol Tartrate [Lopressor] 25 mg PO BID 03/09/18 12/28/19 History Aspirin EC [Ecotrin Low Dose] 81 mg PO DAILY 01/26/19 12/28/19 History Cholecalciferol [Vitamin D3 (25 3,000 unit PO HS 05/12/19 12/28/19 History Mcg = 1000 Iu)] Ferrous Sulfate [Feosol] 325 mg PO BID 05/12/19 12/28/19 History Furosemide [Lasix] 40 mg PO DAILY 05/12/19 12/28/19 History allopurinoL [Zyloprim] 100 mg PO DAILY 05/12/19 12/28/19 History Folic Acid-Vit B Complex-Vit C 1 mg PO HS 07/29/19 12/28/19 History [Nephrocaps] Sodium Bicarbonate 650 mg PO AC-TID 07/29/19 12/28/19 History amLODIPine [Norvasc] 10 mg PO HS 07/29/19 12/28/19 History Apixaban [Eliquis] 5 mg PO BID 11/20/19 12/28/19 History Calcium Carbonate 1,000 mg PO TID 11/20/19 12/28/19 History Psyllium Husk 100% [Metamucil 6 gm PO BID PRN 11/20/19 12/28/19 History Packet] Darbepoetin Mckay [Aranesp] 60 mcg SQ FR 12/28/19 12/28/19 History Allergies Allergy/AdvReac Type Severity Reaction Status Date / Time Penicillins Allergy Severe Rash/Hives, Verified 12/28/19 23:44 Itching simvastatin [From Zocor] AdvReac Severe constipation, Verified 12/28/19 23:44 dry cough pregabalin [From Lyrica] AdvReac Unknown Verified 12/28/19 23:44 tide laundry detergent Allergy Itching Uncoded 12/28/19 23:44 Physical Exam Vitals: Vital Signs Temp Pulse Pulse Resp BP BP Pulse Ox 12/29/19 12:17 99.3 F 77 20 183/68 98 12/29/19 08:00 22 12/29/19 07:42 71 12/29/19 07:31 67 12/29/19 07:00 98.6 F 70 18 155/64 96 12/29/19 06:00 100 F H 71 18 99 12/29/19 03:21 81 12/29/19 03:11 76 12/29/19 02:00 100.4 F H 85 18 171/76 12/29/19 00:00 100.6 F H 85 16 175/66 12/28/19 23:51 80 12/28/19 23:41 81 12/28/19 22:25 101.5 F H 82 18 193/83 99 Intake and Output 12/28/19 12/29/19 12/29/19 22:59 06:59 14:59 Other: Voiding Method Incontinent # Voids 1 Weight 124.738 kg 124.738 kg GENERAL DESCRIPTION: An daily female lying in bed, no distress. No tachypnea or accessory muscle of respiration use. HEENT: Shows Pallor , no scleral icterus. Oral mucous membrane is dry. No pharyngeal erythema or thrush NECK: Trachea central, no thyromegaly. LUNGS: Unlabored breathing. Clear to auscultation anteriorly. No wheeze or crackle. HEART: S1, S2, regular rate and rhythm. No loud murmur ABDOMEN: Soft, left lower quadrant tenderness , no guarding or rigidity, no organomegaly EXTREMITIES: No edema of feet. SKIN: No rash, no masses palpable. NEUROLOGICAL: The patient is awake, alert, oriented x3, mood and affect normal. Results CBC & Chem 7: 12/28/19 22:42 12/28/19 22:42 Labs: Abnormal Lab Results - Last 24 Hours (Table) 12/28/19 12/28/19 12/29/19 Range/Units 22:42 22:42 11:40 WBC 15.6 H (3.8-10.6) k/uL RBC 3.63 L (3.80-5.40) m/uL Hgb 10.8 L (11.4-16.0) gm/dL Plt Count 131 L (150-450) k/uL Neutrophils # 14.7 H (1.3-7.7) k/uL Lymphocytes # 0.3 L (1.0-4.8) k/uL Chloride 110 H (98-107) mmol/L Carbon Dioxide 18 L (22-30) mmol/L BUN 79 H (7-17) mg/dL Creatinine 4.25 H (0.52-1.04) mg/dL Glucose 170 H (74-99) mg/dL POC Glucose (mg/dL) 156 H (75-99) mg/dL C-Reactive Protein 24.0 H (<10.0) mg/L Total Protein 6.0 L (6.3-8.2) g/dL Albumin 3.1 L (3.5-5.0) g/dL Assessment and Plan Assessment: 1- patient presented to hospital with sepsis in this patient who did have a fever of 101.5F patient did have any report of 15,000 patient presented with abdominal pain and diarrhea this patient was noticed to have significant tenderness in the upper quadrant area with concern for possible diverticulitis/abdominal source, underlying infectious colitis also needs to be ruled out 2-patient did have positive a consult for possible urinary tract infection 3-penicillin ALLERGY (1) Sepsis Current Visit: Yes Status: Acute Code(s): A41.9 - SEPSIS, UNSPECIFIED ORGANISM SNOMED Code(s): 72491362 (2) UTI (urinary tract infection) Current Visit: Yes Status: Acute Code(s): N39.0 - URINARY TRACT INFECTION, SITE NOT SPECIFIED SNOMED Code(s): 05957329 (3) Colitis Current Visit: Yes Status: Acute Code(s): K52.9 - NONINFECTIVE GASTROENTERITIS AND COLITIS, UNSPECIFIED SNOMED Code(s): 24953164 Plan: 1- we will obtain CT of abdominal pelvis with oral contrast 2-start the patient Rocephin 2 g daily and Flagyl 500 every 8 3-check a stool for C. diff and stool culture 4-IV fluid We will follow on clinical condition and cultures to further adjust medication if needed Thank you for this consultation will follow this patient with you Time with Patient: Greater than 30
[2019-12-30 06:15] LABS: HCT 31.7 % (34.0-46.0); HGB 10.3 gm/dL (11.4-16.0); Hypochromasia Slight; MCH 30.5 pg (25.0-35.0); MCHC 32.4 g/dL (31.0-37.0); MCV 94.2 fL (80.0-100.0); Mean Platelet Volume 7.8; Platelet Count 111 k/uL (150-450); RBC 3.36 m/uL (3.80-5.40); RDW 14.2 % (11.5-15.5)
[2019-12-30 06:51] LABS: Glucose,Whole Blood 130 mg/dL (75-99)
[2019-12-30] MEDS: SODIUM BICARBONATE TAB 650 MG TAB PO SCH ×3 (07:49→17:52)
[2019-12-30] MEDS: HYDROcodone/APAP 5-325MG 1 EACH TAB PO PRN ×2 (07:49→15:35)
[2019-12-30] MEDS: metroNIDAZOLE-NS PMX 500 MG in SALINE 1 100ML.BAG IVPB SCH ×2 (07:50→15:35)
[2019-12-30] MEDS: FERROUS SULFATE 325 MG TAB PO SCH ×2 (08:03→21:39)
[2019-12-30] MEDS: APIXABAN 2.5 MG TABLET PO SCH ×2 (08:03→21:39)
[2019-12-30] MEDS: ASPIRIN 81 MG PO SCH (08:03)
[2019-12-30] MEDS: allopurinoL 100 MG TAB PO SCH (08:04)
[2019-12-30] MEDS: CALCIUM CARBONATE 500 MG CHEWABLE PO SCH ×3 (08:04→21:39)
[2019-12-30] MEDS: METOPROLOL TARTRATE 25 MG TAB PO SCH ×2 (08:04→21:39)
--- NOTE | 2019-12-30 09:14 | P.PN ---
Subjective Progress Note Date: 12/30/19 This is a 69-year-old female with documented history of diabetes, hyperlipidemia, hypertension, chronic lower extremity wounds for which she gets treated at the wound center, obesity, history of smoking, kidney disease stage III, patient states she was on dialysis 3 times a week, but because of improvement in her kidneys she has not recently undergone any dialysis. She presents to the hospital on this occasion with symptoms of abdominal pain, cramping, diarrhea and fever. Patient also states that she has felt more short of breath than her usual. Her EKG on presentation here showed normal sinus rhythm with no acute changes. The chest x-ray showed questionable mild right infiltrate blood pressure 155/60 with a heart rate in the 70s 96% on room air. White blood cell count 15.6, hemoglobin 10.8, platelet count 131. D-dimer 0.30. Sodium 137, potassium 4.6, BUN 79 and creatinine 4.2, troponins 0.012, 0.017. BNP 6730. [place] virus testing has been done but is pending. Patient was initiated on 40 mg of IV Lasix twice a day by the emergency room physician, she has diuresed overall. 12/30/2019 Patient was seen and examined this morning, she does state that she's feeling better overall, still intermittently feels quite short of breath. Continues to have intermittent diarrhea. Blood pressure this morning 164/66 with a heart rate in the 70s, temperature 98.5 she's 93% on room air. Patient is incontinent, therefore it was difficult to assess her output. Weight appears to be unchanged. Edema in her lower extremities has improved. White blood cell count 11.0, hemoglobin 10.3, platelet count 111. Objective - Vital Signs Vital signs: Vital Signs Temp 98.5 F 12/30/19 07:00 Pulse 79 12/30/19 07:00 Resp 18 12/30/19 03:38 BP 164/66 12/30/19 07:00 Pulse Ox 93 L 12/30/19 02:11 Intake & Output 12/29/19 12/30/19 12/30/19 18:59 06:59 18:59 Output Total 900 Balance -900 Weight 124.738 kg Output: Urine 900 Other: Voiding Method Incontinent Incontinent Incontinent # Voids 1 - Exam PHYSICAL EXAMINATION: GENERAL: 69-year-old female in no acute distress at the time of my examination HEENT: Head is atraumatic, normocephalic. Pupils equal, round. Sclera anicteric. Conjunctiva are clear. Mucous membranes of the mouth are moist. Neck is supple. There is no elevated jugular venous pressure. No carotid bruit is heard. HEART EXAMINATION: Heart S1, S2 normal. No murmur or gallop heard. CHEST EXAMINATION: Lungs reveal improvement in air entry posteriorly to the bases with fine crackles heard ABDOMEN: Soft, nontender. Bowel sounds are heard. No organomegaly noted. EXTREMITIES: 2+ peripheral pulses with trace evidence of peripheral edema, evidence of bilateral ear erythema and possible cellulitis, seems to be improving. NEUROLOGIC patient is awake, alert and oriented 3 . - Labs CBC & Chem 7: 12/30/19 05:48 12/28/19 22:42 Labs: Abnormal Lab Results - Last 24 Hours (Table) 12/29/19 12/29/19 12/29/19 Range/Units 11:40 16:30 16:47 WBC (3.8-10.6) k/uL RBC (3.80-5.40) m/uL Hgb (11.4-16.0) gm/dL Hct (34.0-46.0) % Plt Count (150-450) k/uL POC Glucose (mg/dL) 156 H 160 H (75-99) mg/dL Urine Appearance Cloudy H (Clear) Urine Protein 2+ H (Negative) Urine Blood Small H (Negative) Ur Leukocyte Esterase Large H (Negative) Urine RBC 6 H (0-5) /hpf Urine WBC 12 H (0-5) /hpf Urine Bacteria Many H (None) /hpf Urine Mucus Rare H (None) /hpf 12/29/19 12/30/19 12/30/19 Range/Units 20:19 05:48 06:49 WBC 11.0 H (3.8-10.6) k/uL RBC 3.36 L (3.80-5.40) m/uL Hgb 10.3 L (11.4-16.0) gm/dL Hct 31.7 L (34.0-46.0) % Plt Count 111 L (150-450) k/uL POC Glucose (mg/dL) 162 H 130 H (75-99) mg/dL Urine Appearance (Clear) Urine Protein (Negative) Urine Blood (Negative) Ur Leukocyte Esterase (Negative) Urine RBC (0-5) /hpf Urine WBC (0-5) /hpf Urine Bacteria (None) /hpf Urine Mucus (None) /hpf Microbiology - Last 24 Hours (Table) 12/28/19 00:00 Blood Culture - Preliminary Blood No Growth after 24 hours 12/29/19 16:30 Urine Culture - Preliminary Urine,Voided Assessment and Plan Plan: Assessment and plan #1 abdominal pain, diarrhea and fever #2 shortness of breath, possible mild congestive heart failure, LV function unknown #3 diabetes #4 hyperlipidemia #5 hypertension #6 chronic lower extremity wounds #7 chronic kidney disease stage III, creatinine 4.2 #8 history of nicotine dependence Plan Lytes BUN and creatinine are pending this morning. Echocardiogram with Doppler study has been performed but is yet pending. We will discontinue the IV Lasix after the patient's last dose tonight and supervisor records change to oral diuretics. Further recommendations to follow. DNP note has been reviewed, I agree with a documented findings and plan of care. Patient was seen and examined.
--- NOTE | 2019-12-30 09:16 | P.PN ---
Subjective 69-year-old female was admitted for sepsis possibility of urinary tract infection, CT of the abdomen did not show any significant colitis at the latest patient is presently on Rocephin and metronidazole both of which will be continued may not need metronidazole this probably can be discontinued. C. diff is still pending patient diarrhea resolved . Covid 19 was ruled out. Constitutional: Denied any fatigue denied any fever. Cardio vascular: denied any chest pain, palpitations Gastrointestinal denied any nausea vomiting Pulmonary: she is still complaining of crampy abdominal pain Neurologic denied any new focal deficits All inpatient medications were reviewed and appropriate changes in these medications as dictated in the interval history and assessment and plan. Objective - Vital Signs Vital signs: Vital Signs Temp 98.5 F 12/30/19 07:00 Pulse 79 12/30/19 07:00 Resp 18 12/30/19 03:38 BP 164/66 12/30/19 07:00 Pulse Ox 93 L 12/30/19 02:11 Intake & Output 12/29/19 12/30/19 12/30/19 18:59 06:59 18:59 Output Total 900 Balance -900 Weight 124.738 kg Output: Urine 900 Other: Voiding Method Incontinent Incontinent Incontinent # Voids 1 - Exam PHYSICAL EXAMINATION: GENERAL: The patient is alert and oriented x3, patient is in distress because of pain in the both hip areas Well developed, well nourished. HEENT: Pupils are round and equally reacting to light. EOMI. No scleral icterus. No conjunctival pallor. Normocephalic, atraumatic. No pharyngeal erythema. No thyromegaly. CARDIOVASCULAR: S1 and S2 present. No murmurs, rubs, or gallops. PULMONARY: a very bibasilar crackles ABDOMEN: Soft, nontender, nondistended, normoactive bowel sounds. No palpable organomegaly. MUSCULOSKELETAL: No joint swelling or deformity. EXTREMITIES: No cyanosis, clubbing, or pedal edema. NEUROLOGICAL: Gross neurological examination did not reveal any focal deficits. SKIN: No rashes. - Labs CBC & Chem 7: 12/30/19 05:48 12/28/19 22:42 Labs: Abnormal Lab Results - Last 24 Hours (Table) 12/29/19 12/29/19 12/29/19 Range/Units 11:40 16:30 16:47 WBC (3.8-10.6) k/uL RBC (3.80-5.40) m/uL Hgb (11.4-16.0) gm/dL Hct (34.0-46.0) % Plt Count (150-450) k/uL POC Glucose (mg/dL) 156 H 160 H (75-99) mg/dL Urine Appearance Cloudy H (Clear) Urine Protein 2+ H (Negative) Urine Blood Small H (Negative) Ur Leukocyte Esterase Large H (Negative) Urine RBC 6 H (0-5) /hpf Urine WBC 12 H (0-5) /hpf Urine Bacteria Many H (None) /hpf Urine Mucus Rare H (None) /hpf 12/29/19 12/30/19 12/30/19 Range/Units 20:19 05:48 06:49 WBC 11.0 H (3.8-10.6) k/uL RBC 3.36 L (3.80-5.40) m/uL Hgb 10.3 L (11.4-16.0) gm/dL Hct 31.7 L (34.0-46.0) % Plt Count 111 L (150-450) k/uL POC Glucose (mg/dL) 162 H 130 H (75-99) mg/dL Urine Appearance (Clear) Urine Protein (Negative) Urine Blood (Negative) Ur Leukocyte Esterase (Negative) Urine RBC (0-5) /hpf Urine WBC (0-5) /hpf Urine Bacteria (None) /hpf Urine Mucus (None) /hpf Microbiology - Last 24 Hours (Table) 12/28/19 00:00 Blood Culture - Preliminary Blood No Growth after 24 hours 12/29/19 16:30 Urine Culture - Preliminary Urine,Voided Assessment and Plan Plan: -sepsis: possible DPTA no evidence of colitis on the CAT scan.. Covid 19 was ruled out. -Possible congestive heart failure chronic diastolic dysfunction with acute exacerbation patient will continue the Lasix for now nephrology is consulted as a -Chronic kidney disease stage V nephrology is consulted patient creatinine is 4.2. -Type 2 diabetes mellitus -Hypertension -Hyperlipidemia -Chronic left heel ulcer: In infectious disease is evaluating the patient management of this ulcer is for them -Nicotine abusehistory presently not a smoker -history of DVT patient is on the Eliquis which will be continued -Gastroesophageal disease peripheral vascular disease
[2019-12-30 09:40] LABS: African American GFR (CKD) 11.3 (60.0-200.0); Anion Gap 11.9 mmol/L (4.00-12.00); BUN/Creat Ratio 18.41 Ratio (12.00-20.00); Calcium 8.3 mg/dL (8.7-10.3); Carbon Dioxide 20.1 mmol/L (21.6-31.8); Non-African American GFR(CKD) 9.7 (60.0-200.0); Potassium 4.7 mmol/L (3.5-5.5)
--- NOTE | 2019-12-30 09:48 | ECHOF ---
Referral Reason:chf MEASUREMENTS -------- HEIGHT: 180.3 cm WEIGHT: 124.7 kg BP: RVIDd: 2.8 cm (< 3.3) IVSd: 1.6 cm (0.6 - 1.1) LVIDd: 5.1 cm (3.9 - 5.3) LVPWd: 1.4 cm (0.6 - 1.1) IVSs: 2.8 cm LVIDs: 1.8 cm LVPWs: 1.7 cm Ao Diam: 2.8 cm (2.0 - 3.7) AV Cusp: 2.1 cm (1.5 - 2.6) LA Diam: 4.6 cm (2.7 - 3.8) MV EXCURSION: 10.542 mm (> 18.000) MV EF SLOPE: 73 mm/s (70 - 150) EPSS: 0.7 cm MV E Cory: 1.45 m/s MV DecT: 205 ms MV A Cory: 1.04 m/s MV E/A Ratio: 1.39 RAP: 5.00 mmHg RVSP: 54.28 mmHg FINDINGS -------- Sinus rhythm. This was a technically difficult study with suboptimal views. The left ventricular size is normal. There is moderate concentric left ventricular hypertrophy. O verall left ventricular systolic function is normal with, an EF between 55 - 60 %. The right ventricle is normal in size. The left atrium is moderately dilated. The right atrial size is normal. Lumason used The aortic valve is trileaflet, and appears structurally normal. No aortic stenosis or regurgitation. Moderate mitral annular calcification present. Mild mitral regurgitation is present. The tricuspid valve appears structurally normal. Moderate tricuspid regurgitation present. There is moderate pulmonary hypertension. The right ventricular systolic pressure, as measured by Doppler , is 54.28mmHg. The pulmonic valve was not well visualized. There is no pulmonic regurgitation present. The aortic root size is normal. IVC Not well visulized. There is no pericardial effusion. CONCLUSIONS -------- 1. There is moderate concentric left ventricular hypertrophy. 2. Overall left ventricular systolic function is normal with, an EF between 55 - 60 %. 3. The left atrium is moderately dilated. 4. The aortic valve is trileaflet, and appears structurally normal. No aortic stenosis or regurgitati on. 5. Moderate mitral annular calcification present. 6. Mild mitral regurgitation is present. 7. Moderate tricuspid regurgitation present. 8. There is moderate pulmonary hypertension. 9. The aortic root size is normal. HEALTH SOCIAL WORK PROFESSOR: Niki Hare RDCS
[2019-12-30] MEDS: ACETAMINOPHEN TAB 325 MG TAB PO PRN (10:24)
[2019-12-30 11:25] LABS: Glucose,Whole Blood 155 mg/dL (75-99)
[2019-12-30] MEDS: FUROSEMIDE 10 MG/ML 4 ML VIAL IV SCH (12:43)
--- NOTE | 2019-12-30 13:02 | CONS ---
CONSULTATION REASON FOR CONSULT: Renal failure. HISTORY OF PRESENT ILLNESS: The patient is a 69-year-old female with history of chronic kidney disease, NKF stage 4- 5 with baseline creatinine around 4 mg/dL. Patient was admitted to the hospital on 12/28/2019 with complaints of hip pain. She had some abdominal pain as well. No nausea, vomiting or diarrhea. The patient has a chronic wound on her left foot and [facility]. She was last seen in the office about a few weeks ago and her renal function has been at baseline. She has had fair urine output. No fevers or chills. No cough. PAST MEDICAL HISTORY: CHF, type 2 diabetes, CKD stage 4 to 5, hyperlipidemia, hypertension, osteoarthritis, seizure disorder, neuropathy, history of DVT, history of previous renal failure requiring dialysis with left arm AV fistula, chronic wounds, lower extremities cellulitis, osteomyelitis, constipation, diverticular disease, tinnitus, history of MRSA foot infection. PAST SURGICAL HISTORY: Appendectomy, cholecystectomy, orthopedic surgery, AV fistula, partial amputation right fifth and third toe, bilateral cataract surgery, ovarian cystectomy. MEDICATIONS: Prior to admission included Lopressor, aspirin, vitamin D3, iron, Lasix, Zyloprim, bicarb, Norvasc, Eliquis, calcium, Aranesp, Metamucil. ALLERGIES: Include PENICILLIN, ZOCOR, LYRICA, TIDE LAUNDRY DETERGENT. REVIEW OF SYSTEMS: As per HPI. Other systems negative. PHYSICAL EXAMINATION: Patient is comfortable, awake, alert, oriented x3, not in any acute distress. Blood pressure 164/66, heart rate 79 per minute, she is afebrile. Examination of the heart S1, S2. Examination of the lungs, bilateral breath sounds are heard. Decreased breath sounds at bases. Abdomen is soft, nontender. Examination of the lower extremities shows chronic skin changes. Superficial wound is noted in the left foot. [employer] exam is grossly intact. LABS: Show sodium 139, potassium 4.7, chloride 107, CO2 is 20.1, BUN 81, serum creatinine 4.4, calcium is 8.3, hemoglobin 10.3. UA shows WBC IS 12, 2+ protein, small blood noted. ASSESSMENT: 1. Chronic kidney disease. Renal function not far from baseline with serum creatinine about 4.4, estimated GFR at 11.3. The patient's creatinine was 4.3 - 4.[address] back to October of 2019. No indication for dialysis at this point. Patient has had previous acute kidney injury requiring dialysis. She also has had a left arm AV fistula. 2. Abdominal pain. CAT scan done yesterday shows diverticulosis without significant diverticulitis noted. 3. CKD mineral bone disorder. 4. Left foot superficial ulcer. 5. Possible underlying urinary tract infection with evidence of pyuria, maintained on antibiotics. PLAN: Continue off IV fluids. Repeat labs in a.m. Continue with Lasix. Continue with the sodium bicarb as well for metabolic acidosis. No indication for renal replacement therapy at this point. MMODL / IJN: [id number] /
[2019-12-30 16:25] LABS: Glucose,Whole Blood 126 mg/dL (75-99)
[2019-12-30 21:01] LABS: Glucose,Whole Blood 176 mg/dL (75-99)
[2019-12-30] MEDS: amLODIPine 10 MG TAB PO SCH (21:39)
[2019-12-30] MEDS: CHOLECALCIFEROL 1,000 UNIT TAB PO SCH (21:39)
[2019-12-31] MEDS: FUROSEMIDE 10 MG/ML 4 ML VIAL IV SCH
[2019-12-31] MEDS: ACETAMINOPHEN TAB 325 MG TAB PO PRN (01:13)
--- NOTE | 2019-12-31 01:42 | PN ---
PROGRESS NOTE DATE OF SERVICE: 12/30/2019 REASON FOR FOLLOWUP: Fever, question of UTI and left foot wound infection and cellulitis. INTERVAL HISTORY: The patient overall fever pattern has improved. The patient is feeling better today. Breathing comfortably. Denies having any chest pain or shortness of breath or cough. Abdominal pain has improved. The patient also has a chronic nonhealing wound on the plantar aspect of the left foot treated at the [facility]. PHYSICAL EXAMINATION: Her blood pressure 171/67 with pulse of 75, temperature 99.1. She is 96% on 2 L nasal cannula. General description is an elderly female lying in bed in no distress. RESPIRATORY SYSTEM: Unlabored breathing, clear to auscultation anteriorly. HEART: S1, S2. Regular rate and rhythm. ABDOMEN: Soft, no tenderness. Left leg did have swelling and redness with a wound on the plantar aspect, minimal drainage. LABS: Urine showing gram-negative. White count is down to 11. DIAGNOSTIC IMPRESSION AND PLAN: Patient with a fever which is multifactorial in this patient's initial presentation was diarrhea with concern for possible colitis. CT was negative. Urine is positive and also has evidence of left lower extremity cellulitis and possible left foot wound infection. Wound has been cultured. The patient clinically responded to the Rocephin to continue while waiting for the culture to finalize and monitor her clinical course closely. Local wound care with dry Aquacel Silver dressing. MMODL / IJN: [id number] /
[2019-12-31 06:58] LABS: Glucose,Whole Blood 135 mg/dL (75-99)
[2019-12-31 07:00] LABS: HCT 31.7 % (34.0-46.0); HGB 9.8 gm/dL (11.4-16.0); Hypochromasia Slight; MCH 29.5 pg (25.0-35.0); MCV 95.1 fL (80.0-100.0); Mean Platelet Volume 8.1; Platelet Count 127 k/uL (150-450); RBC 3.33 m/uL (3.80-5.40); RDW 14.3 % (11.5-15.5)
[2019-12-31] MEDS: FUROSEMIDE 40 MG TAB PO SCH ×2 (09:18→17:10)
[2019-12-31] MEDS: FERROUS SULFATE 325 MG TAB PO SCH ×2 (09:18→21:07)
[2019-12-31] MEDS: CALCIUM CARBONATE 500 MG CHEWABLE PO SCH ×3 (09:18→21:07)
[2019-12-31] MEDS: METOPROLOL TARTRATE 25 MG TAB PO SCH ×2 (09:18→21:07)
[2019-12-31] MEDS: SODIUM BICARBONATE TAB 650 MG TAB PO SCH ×3 (09:18→17:10)
[2019-12-31] MEDS: allopurinoL 100 MG TAB PO SCH (09:18)
[2019-12-31] MEDS: APIXABAN 2.5 MG TABLET PO SCH ×2 (09:18→21:07)
[2019-12-31] MEDS: metroNIDAZOLE-NS PMX 500 MG in SALINE 1 100ML.BAG IVPB SCH ×3 (09:18→17:10)
[2019-12-31] MEDS: ASPIRIN 81 MG PO SCH (09:18)
--- NOTE | 2019-12-31 09:34 | P.PN ---
Subjective Progress Note Date: 12/31/19 This is a 69-year-old female with documented history of diabetes, hyperlipidemia, hypertension, chronic lower extremity wounds for which she gets treated at the wound center, obesity, history of smoking, kidney disease stage III, patient states she was on dialysis 3 times a week, but because of improvement in her kidneys she has not recently undergone any dialysis. She presents to the hospital on this occasion with symptoms of abdominal pain, cramping, diarrhea and fever. Patient also states that she has felt more short of breath than her usual. Her EKG on presentation here showed normal sinus rhythm with no acute changes. The chest x-ray showed questionable mild right infiltrate blood pressure 155/60 with a heart rate in the 70s 96% on room air. White blood cell count 15.6, hemoglobin 10.8, platelet count 131. D-dimer 0.30. Sodium 137, potassium 4.6, BUN 79 and creatinine 4.2, troponins 0.012, 0.017. BNP 6730. Toscano virus testing has been done but is pending. Patient was initiated on 40 mg of IV Lasix twice a day by the emergency room physician, she has diuresed overall. 12/30/2019 Patient was seen and examined this morning, she does state that she's feeling better overall, still intermittently feels quite short of breath. Continues to have intermittent diarrhea. Blood pressure this morning 164/66 with a heart rate in the 70s, temperature 98.5 she's 93% on room air. Patient is incontinent, therefore it was difficult to assess her output. Weight appears to be unchanged. Edema in her lower extremities has improved. White blood cell count 11.0, hemoglobin 10.3, platelet count 111. 12/31/2019 Patient was seen and examined this morning, continues to feel better, breathing improving significantly. Edema improving. Blood pressure this morning 170/70 with a heart rate in the 80s, 90% on room air low grade fever at 2:15 this morning. 99.2. Her labs from this morning are yet pending, yesterday's BUN was 81 with a creatinine of 4.4, her hemoglobin this morning is 9.8. The patient's IV Lasix has been discontinued, she's been initiated on oral diuretics. We will add some hydralazine and nitrates to her medication regime to optimize her blood pressure control. She is not on an GIORGI inhibitor or angiotensin andie at this time because of abnormal renal function. Objective - Vital Signs Vital signs: Vital Signs Temp 98.8 F 12/31/19 07:52 Pulse 80 12/31/19 07:52 Resp 16 12/31/19 07:52 BP 170/75 12/31/19 07:52 Pulse Ox 90 L 12/31/19 07:52 Intake & Output 12/30/19 12/31/19 12/31/19 18:59 06:59 18:59 Output Total 500 850 Balance -500 -850 Weight 128.5 kg Output: Urine 500 850 Other: Voiding Method Incontinent Incontinent Incontinent # Voids 1 1 - Exam PHYSICAL EXAMINATION: GENERAL: 69-year-old female in no acute distress at the time of my examination HEENT: Head is atraumatic, normocephalic. Pupils equal, round. Sclera anicteric. Conjunctiva are clear. Mucous membranes of the mouth are moist. Neck is supple. There is no elevated jugular venous pressure. No carotid bruit is heard. HEART EXAMINATION: Heart S1, S2 normal. No murmur or gallop heard. CHEST EXAMINATION: Lungs reveal improvement in air entry posteriorly to the bases ABDOMEN: Soft, nontender. Bowel sounds are heard. No organomegaly noted. EXTREMITIES: 2+ peripheral pulses with trace evidence of peripheral edema, evidence of bilateral ear erythema and possible cellulitis, seems to be improving. NEUROLOGIC patient is awake, alert and oriented 3 . - Labs CBC & Chem 7: 12/31/19 06:39 12/30/19 05:48 Labs: Abnormal Lab Results - Last 24 Hours (Table) 12/30/19 12/30/19 12/30/19 Range/Units 05:48 11:24 16:24 RBC (3.80-5.40) m/uL Hgb (11.4-16.0) gm/dL Hct (34.0-46.0) % Plt Count (150-450) k/uL Carbon Dioxide 20.1 L (21.6-31.8) mmol/L BUN 81.0 H (9.0-27.0) mg/dL Creatinine 4.4 H (0.6-1.5) mg/dL Est GFR (CKD-EPI)AfAm 11.3 L (60.0-200.0) Est GFR (CKD-EPI)NonAf 9.7 L (60.0-200.0) Glucose 130 H (70-110) mg/dL POC Glucose (mg/dL) 155 H 126 H (75-99) mg/dL Calcium 8.3 L (8.7-10.3) mg/dL 12/30/19 12/31/19 12/31/19 Range/Units 21:00 06:39 06:55 RBC 3.33 L (3.80-5.40) m/uL Hgb 9.8 L (11.4-16.0) gm/dL Hct 31.7 L (34.0-46.0) % Plt Count 127 L (150-450) k/uL Carbon Dioxide (21.6-31.8) mmol/L BUN (9.0-27.0) mg/dL Creatinine (0.6-1.5) mg/dL Est GFR (CKD-EPI)AfAm (60.0-200.0) Est GFR (CKD-EPI)NonAf (60.0-200.0) Glucose (70-110) mg/dL POC Glucose (mg/dL) 176 H 135 H (75-99) mg/dL Calcium (8.7-10.3) mg/dL Microbiology - Last 24 Hours (Table) 12/28/19 00:00 Blood Culture - Preliminary Blood No Growth after 48 hours 12/30/19 09:14 Gram Stain - Preliminary Foot - Left Wound Culture - Preliminary 12/29/19 16:30 Urine Culture - Preliminary Urine,Voided Gram Neg Bacilli Assessment and Plan Plan: Assessment and plan #1 abdominal pain, diarrhea and fever #2 shortness of breath, possible mild congestive heart failure, LV function unknown #3 diabetes #4 hyperlipidemia #5 hypertension #6 chronic lower extremity wounds #7 chronic kidney disease stage III, creatinine 4.2 #8 history of nicotine dependence Plan Lytes BUN and creatinine are pending this morning. Echocardiogram with Doppler study revealed an ejection fraction of 55-60%, moderate tricuspid regurg with moderate pulmonary hypertension. We will add hydralazine and nitrates to the medication regime to optimize blood pressure control. Continue the rest of the patient's medications. We will review the labs from this morning. Patient is cleared for discharge from cardiology's perspective, once cleared by nephrology and primary. DNP note has been reviewed, I agree with a documented findings and plan of care. Patient was seen and examined.
[2019-12-31 10:09] LABS: African American GFR (CKD) 10.7 (60.0-200.0); Anion Gap 12.5 mmol/L (4.00-12.00); BUN/Creat Ratio 17.39 Ratio (12.00-20.00); Calcium 8.3 mg/dL (8.7-10.3); Carbon Dioxide 21.5 mmol/L (21.6-31.8); Non-African American GFR(CKD) 9.2 (60.0-200.0); Potassium 4.3 mmol/L (3.5-5.5)
[2019-12-31] MEDS: hydrALAZINE HCL 50 MG TAB PO SCH ×2 (10:31→17:10)
[2019-12-31] MEDS: ISOSORBIDE MONONITRATE ER 30 MG TAB.ER.24H PO SCH (10:31)
[2019-12-31 11:42] LABS: Glucose,Whole Blood 147 mg/dL (75-99)
--- NOTE | 2019-12-31 14:10 | CDI ---
Documentation Clarification Form Date: 12/31/2019 01:38:27 PM From: Kayla Durán RN CCDS Phone: Admit Date: 12/30/2019 10:15:00 AM Patient Name: Lalitha Triplett Visit Number: [id number] Discharge Date: ATTENTION: The Clinical Documentation Specialists (CDI) and [facility] Coding Staff appreciate your assistance in clarifying documentation. Please respond to the clarification below the line at the bottom and electronically sign. The CDI & [facility] Coding staff will review the response and follow-up if needed. Please note: Queries are made part of the Legal Health Record. If you have any questions, please contact the author of this message via ITS. Dr. Ambriz Hilario A left heel pressure ulcer was documented in the H/P and subsequent progress notes: "Chronic left heel ulcer: Infectious disease is evaluating the patient management of the ulcer". Please render your opinion on the left heel ulcer. History/Risk Factors: CKD stage V, Diabetes Mellitus, Hypertension, Peripheral Vascular disease, GERD, Hyperlipidemia Clinical Indicators: 69-year-old female who present to ED on 12/29 with complaints diarrhea with concern for possible colitis. CT was negative. She has a left foot chronic non-healing ulcer (per H/P). Location: Planter aspect of the left foot Wound description: left leg swelling and redness wound on the plantar aspect, minimal drainage. She has evidence of left lower extremity cellulitis and possible left foot wound infection. 12/29 left foot gram stain: Preliminary culture: Gram Neg Bacilli Treatment: Rocephin 2 gm iv q 24 hrs Flagyl 100 mg iv q 8 hrs Local wound care dry Aquacel Silver dressing Elements for accurate and compliant documentation of an ulcer: *The location/laterality of the ulcer *Etiology (decubitus/pressure, diabetic, PVD) *Stage I-IV, Unstageable, Suspected Deep Tissue Injury (To the deepest stage) *If the ulcer was present at admission (POA) or occurred after admission In your professional opinion, can you please clarify the diagnosis, location, laterality and whether present on admission (POA): Stage 1 Pressure/Decubitus Ulcer (intact skin, non-blanching redness of local area) Stage 2 Pressure/Decubitus Ulcer (Partial thickness, loss of dermis, pink wound bed) Stage 3 Pressure/Decubitus Ulcer (Full thickness tissue loss) Stage 4 Pressure/Decubitus Ulcer (Full thickness tissue loss with exposed bone, tendon, or muscle. May have slough or eschar present) Unstageable Other condition, please specify Unable to determine Please indicate etiology of pressure ulcer (if known). (Last Revision: December 2016) _stage 3 pressure ulcer MTDD
--- NOTE | 2019-12-31 14:37 | PN ---
PROGRESS NOTE Patient is seen for followup for chronic kidney disease. She is currently lying in bed, comfortable. Patient denies any significant complaints. She has had fair urine output. Blood pressure was elevated 170/75, heart rate of 80 per minute, patient is afebrile. Examination of the heart S1, S2. Examination of the lungs, bilateral breath sounds are heard. Abdomen is soft, nontender, obese. Examination of the lower extremities shows chronic skin changes, edema 1+ bilaterally. E TAILER exam grossly intact. LABS: Show sodium 141, potassium 4.3, chloride 107, BUN 80, creatinine 4.6, hemoglobin 9.8 g/dL. ASSESSMENT: 1. Chronic kidney disease NKF stage 5 with slight worsening of creatinine. Patient has had an AV graft in her left arm. However, I do not feel a good thrill. She follows with Dr. Guo and was scheduled to see her today. We will proceed with Vascular Surgery consult during her hospitalization. 2. Left foot wound with wound culture growing Gram-negative bacilli. 3. Urinary tract infection with urine culture growing Gram-negative bacilli. 4. Morbid obesity. 5. Metabolic acidosis maintained on oral sodium bicarb. PLAN: No indication to start dialysis. Consult Vascular Surgery regarding left arm AV graft. MMODL / IJN: [id number] /
[2019-12-31 16:49] LABS: Glucose,Whole Blood 151 mg/dL (75-99)
--- NOTE | 2019-12-31 20:27 | P.PN ---
Progress Note - Text Progress Note Date: 12/31/19 presenting complaint: Sepsis Interval history: Admitted with sepsis possibly UTI. Started on IV ceftriaxone. patient also felt to have possible colitis infectious type. COVID 19 was ruled out. Today-sitting at the edge of the bed. Eating better. Working with physical therapy. Able to transfer with assistance. Feeling better. Review of systems: Was done for constitutional, cardiovascular, GI, pulmonary. relevant finding as above Active Medications Acetaminophen (Acetaminophen Tab 325 Mg Tab) 650 mg PO Q4HR PRN PRN Reason: Fever and/ or Pain Last Admin: 12/31/19 01:13 Dose: 650 mg Documented by: Hydrocodone Bitart/Acetaminophen (Hydrocodone/Apap 5-325mg 1 Each Tab) 1 each PO Q6HR PRN PRN Reason: Pain Last Admin: 12/30/19 15:35 Dose: 1 each Documented by: Albuterol/Ipratropium (Ipratropium-Albuterol 3 Ml Neb) 3 ml INHALATION RT-Q4H PRN PRN Reason: shortness of breath Last Admin: 12/29/19 07:31 Dose: 3 ml Documented by: Allopurinol (Allopurinol 100 Mg Tab) 100 mg PO DAILY [facility] Last Admin: 12/31/19 09:18 Dose: 100 mg Documented by: Amlodipine Besylate (Amlodipine 10 Mg Tab) 10 mg PO [facility] Last Admin: 12/30/19 21:39 Dose: 10 mg Documented by: Apixaban (Apixaban 2.5 Mg Tablet) 2.5 mg PO BID [facility] Last Admin: 12/31/19 09:18 Dose: 2.5 mg Documented by: Aspirin (Aspirin 81 Mg) 81 mg PO DAILY [facility] Last Admin: 12/31/19 09:18 Dose: 81 mg Documented by: Calcium Carbonate/Glycine (Calcium Carbonate 500 Mg Chewable) 1,000 mg PO TID [facility] Last Admin: 12/31/19 17:10 Dose: 1,000 mg Documented by: Cholecalciferol (Cholecalciferol 1,000 Unit Tab) 3,000 unit PO [facility] Last Admin: 12/30/19 21:39 Dose: 3,000 unit Documented by: Darbepoetin Mckay (Darbepoetin Mckay 60 Mcg/0.3 Ml Syringe) 60 mcg SQ [facility] Ferrous Sulfate (Ferrous Sulfate 325 Mg Tab) 325 mg PO BID [facility] Last Admin: 12/31/19 09:18 Dose: 325 mg Documented by: Furosemide (Furosemide 40 Mg Tab) 40 mg PO BID@0900,1600 [facility] Last Admin: 12/31/19 17:10 Dose: 40 mg Documented by: Hydralazine HCl (Hydralazine Hcl 50 Mg Tab) 50 mg PO TID [facility] Last Admin: 12/31/19 17:10 Dose: 50 mg Documented by: Ceftriaxone Sodium 2 gm/ (Sodium Chloride) 50 mls @ 100 mls/hr IVPB Q24HR [facility] Last Admin: 12/31/19 10:31 Dose: 100 mls/hr Documented by: Metronidazole 500 mg/ IV (Solution) 100 mls @ 100 mls/hr IVPB Q8HR [facility] Last Admin: 12/31/19 17:10 Dose: 100 mls/hr Documented by: Isosorbide Mononitrate (Isosorbide Mononitrate Er 30 Mg Tab.Er.24h) 30 mg PO DAILY [facility] Last Admin: 12/31/19 10:31 Dose: 30 mg Documented by: Metoprolol Tartrate (Metoprolol Tartrate 25 Mg Tab) 25 mg PO BID [facility] Last Admin: 12/31/19 09:18 Dose: 25 mg Documented by: Psyllium Hydrophilic Mucilloid (Psyllium Husk 100% 6 Gm Packet) 6 gm PO BID PRN PRN Reason: Diarrhea Sodium Bicarbonate (Sodium Bicarbonate Tab 650 Mg Tab) 650 mg PO AC-TID [facility] Last Admin: 12/31/19 17:10 Dose: 650 mg Documented by: On examination: VITAL SIGNS: [T-max last night 100.8], 18, 16, 170/75, 90% on room air GENERAL APPEARANCE: BMI 40.6, sitting at edge of the bed, tired awake HEENT: Normal external appearance of nose and ear. Oral cavity normal EYES: Pupils equal. Conjunctiva normal. NECK: JVD not raised. Mass not palpable. RESPIRATORY: Respiratory effort normal. Lungs distant breath sounds CARDIOVASCULAR: First and second sounds normal. No edema. ABDOMEN: Soft. Liver and spleen not palpable. No tenderness. No mass palpable. PSYCHIATRY: Alert and oriented x3. Mood and affect normal. EXTREMITY: Left foot wound INVESTIGATIONS, reviewed in the clinical context: white count and hemoglobin 9.8 platelets 127 potassium 4.3 bun 18 creatinine 4.6 previous testing: Computed tomography scan of the abdomen pelvis without contrast-right adrenal gland 3.9 cm. Diverticulosis. Some limitation of the bowels because of lack of contrast 2-D echocardiogram-moderate concentric LVH, LV systolic function EF 55-60%, moderate tricuspid regurgitation, moderate pulmonary hypertension -COVID 19 P/Cr-not detected urine culture-E. coli Assessment: -Possible acute infectious colitis. Computed tomography scan did not show the same as some lack of contrast in certain areas of the bowel. the patient had abdominal tenderness and diarrhea.-Which is better POA -Acute UTI with cystitis-E. coli -Diabetes mellitus type 2 -GERD -Hyperlipidemia -Essential hypertension -Primary osteoarthritis -Diabetic peripheral neuropathy -Chronic kidney disease stage 5 with left arm AV fistula with posterior hemodialysis -Chronic anemia of chronic kidney disease -Peripheral arterial disease -Chronic diverticulosis-asymptomatic -Chronic gait dysfunction able to transfer self to a wheelchair -Chronic urinary incontinence -Morbid obesity BMI 40.6 -Metabolic acidosis from renal failure -Left foot wound with acutecellulitis Plan: Continue the patient IV ceftriaxone and Flagyl. Patient is clinically doing better.follow with ID nephrology.discussed with patient.
[2019-12-31 20:45] LABS: Glucose,Whole Blood 162 mg/dL (75-99)
[2019-12-31] MEDS: CHOLECALCIFEROL 1,000 UNIT TAB PO SCH (21:07)
[2019-12-31] MEDS: amLODIPine 10 MG TAB PO SCH (21:07)
--- NOTE | 2019-12-31 23:16 | PN ---
PROGRESS NOTE DATE OF SERVICE: 12/31/2019 REASON FOR FOLLOWUP: Urinary tract infection, left foot infection and cellulitis. INTERVAL HISTORY: The patient is currently afebrile though the patient did have a low-grade temperature recorded around midnight. The patient overall is feeling better. Breathing comfortably. Denies having any chest pain. No shortness of breath or cough. No abdominal pain or any worsening pain to the left leg. PHYSICAL EXAMINATION: Blood pressure 145/62 with a pulse of 75 temperature 97.9. She is 95% on room air. General description is an elderly female up in the chair in no distress. RESPIRATORY SYSTEM: Unlabored breathing, clear to auscultation anteriorly. HEART: S1, S2. Regular rate and rhythm. ABDOMEN: Soft, no tenderness. LABS: Hemoglobin 9.8, white count 10, BUN of 80, creatinine 4.6. DIAGNOSTIC IMPRESSION AND PLAN: Patient admitted to the hospital with fever, source is likely multifactorial. This patient did have a Gram-negative urinary tract infection along with left foot wound and secondary cellulitis which is showing a Gram-negative. The patient is currently covered with Rocephin 2 grams daily to continue while waiting for the culture to finalize. Continue supportive care. MMODL / IJN: [id number] /
[2020-01-01] MEDS: metroNIDAZOLE-NS PMX 500 MG in SALINE 1 100ML.BAG IVPB SCH ×2 (00:38→08:09)
[2020-01-01] MEDS: hydrALAZINE HCL 50 MG TAB PO SCH ×3 (00:38→16:18)
[2020-01-01 07:19] LABS: Glucose,Whole Blood 110 mg/dL (75-99)
[2020-01-01] MEDS: allopurinoL 100 MG TAB PO SCH (08:09)
[2020-01-01] MEDS: ASPIRIN 81 MG PO SCH (08:09)
[2020-01-01] MEDS: CALCIUM CARBONATE 500 MG CHEWABLE PO SCH ×3 (08:09→16:21)
[2020-01-01] MEDS: FERROUS SULFATE 325 MG TAB PO SCH (08:09)
[2020-01-01] MEDS: METOPROLOL TARTRATE 25 MG TAB PO SCH (08:09)
[2020-01-01] MEDS: ISOSORBIDE MONONITRATE ER 30 MG TAB.ER.24H PO SCH (08:09)
[2020-01-01] MEDS: FUROSEMIDE 40 MG TAB PO SCH ×2 (08:09→16:19)
[2020-01-01] MEDS: SODIUM BICARBONATE TAB 650 MG TAB PO SCH ×3 (08:10→16:18)
[2020-01-01] MEDS: APIXABAN 2.5 MG TABLET PO SCH (08:10)
[2020-01-01] MEDS ORDERED: DARBEPOETIN ALFA 60 MCG/0.3 ML SYRINGE SQ SCH (09:00)
--- NOTE | 2020-01-01 10:01 | P.PN ---
Subjective Progress Note Date: 01/01/20 This is a 69-year-old female with documented history of diabetes, hyperlipidemia, hypertension, chronic lower extremity wounds for which she gets treated at the wound center, obesity, history of smoking, kidney disease stage III, patient states she was on dialysis 3 times a week, but because of improvement in her kidneys she has not recently undergone any dialysis. She presents to the hospital on this occasion with symptoms of abdominal pain, cramping, diarrhea and fever. Patient also states that she has felt more short of breath than her usual. Her EKG on presentation here showed normal sinus rhythm with no acute changes. The chest x-ray showed questionable mild right infiltrate blood pressure 155/60 with a heart rate in the 70s 96% on room air. White blood cell count 15.6, hemoglobin 10.8, platelet count 131. D-dimer 0.30. Sodium 137, potassium 4.6, BUN 79 and creatinine 4.2, troponins 0.012, 0.017. BNP 6730. Toscano virus testing has been done but is pending. Patient was initiated on 40 mg of IV Lasix twice a day by the emergency room physician, she has diuresed overall. 12/30/2019 Patient was seen and examined this morning, she does state that she's feeling better overall, still intermittently feels quite short of breath. Continues to have intermittent diarrhea. Blood pressure this morning 164/66 with a heart rate in the 70s, temperature 98.5 she's 93% on room air. Patient is incontinent, therefore it was difficult to assess her output. Weight appears to be unchanged. Edema in her lower extremities has improved. White blood cell count 11.0, hemoglobin 10.3, platelet count 111. 12/31/2019 Patient was seen and examined this morning, continues to feel better, breathing improving significantly. Edema improving. Blood pressure this morning 170/70 with a heart rate in the 80s, 90% on room air low grade fever at 2:15 this morning. 99.2. Her labs from this morning are yet pending, yesterday's BUN was 81 with a creatinine of 4.4, her hemoglobin this morning is 9.8. The patient's IV Lasix has been discontinued, she's been initiated on oral diuretics. We will add some hydralazine and nitrates to her medication regime to optimize her blood pressure control. She is not on an GIORGI inhibitor or angiotensin andie at this time because of abnormal renal function. 01/01/2020 Patient seen and examined this morning, overall doing well. Looking significantly better than she did on presentation here. Blood pressure this morning 148/70 with a heart rate in the 70s, 93% on room air. Labs from today are pending, yesterday's creatinine up to 4.6. From cardiology's perspective, the patient may be discharged once released by primary and nephrology. Objective - Vital Signs Vital signs: Vital Signs Temp 98.1 F 01/01/20 07:00 Pulse 74 01/01/20 07:00 Resp 20 01/01/20 07:00 BP 157/67 01/01/20 07:00 Pulse Ox 93 L 01/01/20 07:00 Intake & Output 12/31/19 01/01/20 01/01/20 18:59 06:59 18:59 Output Total 900 Balance -900 Weight 130.5 kg Output: Urine 900 Other: Voiding Method Incontinent Incontinent # Voids 1 # Bowel Movements 1 - Exam PHYSICAL EXAMINATION: GENERAL: 69-year-old female in no acute distress at the time of my examination HEENT: Head is atraumatic, normocephalic. Pupils equal, round. Sclera anicteric. Conjunctiva are clear. Mucous membranes of the mouth are moist. Neck is supple. There is no elevated jugular venous pressure. No carotid bruit is heard. HEART EXAMINATION: Heart S1, S2 normal. No murmur or gallop heard. CHEST EXAMINATION: Lungs reveal improvement in air entry posteriorly to the bases ABDOMEN: Soft, nontender. Bowel sounds are heard. No organomegaly noted. EXTREMITIES: 2+ peripheral pulses with trace evidence of peripheral edema, evidence of bilateral ear erythema and possible cellulitis, seems to be improving. NEUROLOGIC patient is awake, alert and oriented 3 . - Labs CBC & Chem 7: 12/31/19 06:39 12/31/19 06:39 Labs: Abnormal Lab Results - Last 24 Hours (Table) 12/31/19 12/31/19 12/31/19 Range/Units 06:39 11:40 16:46 Carbon Dioxide 21.5 L (21.6-31.8) mmol/L Anion Gap 12.50 H (4.00-12.00) mmol/L BUN 80.0 H (9.0-27.0) mg/dL Creatinine 4.6 H (0.6-1.5) mg/dL Est GFR (CKD-EPI)AfAm 10.7 L (60.0-200.0) Est GFR (CKD-EPI)NonAf 9.2 L (60.0-200.0) Glucose 131 H (70-110) mg/dL POC Glucose (mg/dL) 147 H 151 H (75-99) mg/dL Calcium 8.3 L (8.7-10.3) mg/dL 12/31/19 01/01/20 Range/Units 20:44 07:07 Carbon Dioxide (21.6-31.8) mmol/L Anion Gap (4.00-12.00) mmol/L BUN (9.0-27.0) mg/dL Creatinine (0.6-1.5) mg/dL Est GFR (CKD-EPI)AfAm (60.0-200.0) Est GFR (CKD-EPI)NonAf (60.0-200.0) Glucose (70-110) mg/dL POC Glucose (mg/dL) 162 H 110 H (75-99) mg/dL Calcium (8.7-10.3) mg/dL Microbiology - Last 24 Hours (Table) 12/28/19 00:00 Blood Culture - Preliminary Blood No Growth after 72 hours 12/29/19 16:30 Urine Culture - Final Urine,Voided Escherichia coli 12/30/19 09:14 Gram Stain - Preliminary Foot - Left Wound Culture - Preliminary Gram Neg Bacilli Assessment and Plan Plan: Assessment and plan #1 abdominal pain, diarrhea and fever #2 shortness of breath, possible mild congestive heart failure, diastolic acute on chronic #3 diabetes #4 hyperlipidemia #5 hypertension #6 chronic lower extremity wounds #7 chronic kidney disease stage III, #8 history of nicotine dependence Plan Lytes BUN and creatinine are pending this morning. From cardiology's perspective, the patient may be discharged home once cleared by primary and nephrology. DNP note has been reviewed, I agree with a documented findings and plan of care. Patient was seen and examined.
[2020-01-01 10:26] LABS: African American GFR (CKD) 10 (>60 ml/min/1.73 sqM); Anion Gap 9 mmol/L; Blood Urea Nitrogen 88 mg/dL (7-17); Calcium 8.2 mg/dL (8.4-10.2); Carbon Dioxide 22 mmol/L (22-30); Chloride 110 mmol/L (98-107); Glucose 153 mg/dL (74-99); Non-African American GFR(CKD) 8 (>60 ml/min/1.73 sqM); Potassium 4.1 mmol/L (3.5-5.1); Sodium 141 mmol/L (137-145)
[2020-01-01 11:17] LABS: Glucose,Whole Blood 157 mg/dL (75-99)
--- NOTE | 2020-01-01 14:35 | P.GSCN ---
History of Present Illness Consult date: 01/01/20 Reason for Consult: Evaluation of the upper extremity AV fistula History of present illness: 69-year-old female with documented history of diabetes, hyperlipidemia, hypertension, chronic lower extremity wounds for which she gets treated at the wound center, obesity, history of smoking, kidney disease stage IV-V, patient states she was on dialysis 3 times a week 1-2 years ago, but because of improvement in her kidneys she has not recently undergone any dialysis. She presents to the hospital on this occasion with symptoms of abd ominal pain, cramping, diarrhea and fever. The patient follows with Dr. Hahn regularly as an outpatient, and has been monitoring her kidney function. She underwent a left upper extremity brachiocephalic AV fistula creation in July of this year with Dr. Guo. The patient then underwent a ligation of the branches of the left upper extremity AV brachial cephalic fistula because there was an area of non-maturation this was completed November [address] Guo. The patient was supposed to have a follow-up appointment this past Saturday, however was hospitalized. Ocular surgery was consulted for evaluation of the fistula. However the patient is not requiring dialysis at this time, and will be discharged today to an extended care facility. Likelihood is she will need dialysis in the near future. Today's BUN is 88, creatinine 4.85. Patient states her symptoms have resolved of diarrhea, nausea vomiting and abdominal pain. Breathing has improved. She is eating a regular diet. She states she is making adequate urine output on her own. She does have a catheter in place anuj martini in the hospital with approximately 500 mL output. Review of Systems A 14 point review of systems completed with pertinent positives and negatives as stated in the HPI. Past Medical History Past Medical History: Heart Failure, Diabetes Mellitus, Deep Vein Thrombosis (DVT), GERD/Reflux, Hyperlipidemia, Hypertension, Osteoarthritis (OA), Renal Disease, Seizure Disorder, Skin Disorder, Vascular Disorder Additional Past Medical History / Comment(s): 2018 respiratory failure with coma/trach/vent, NIDDM type II, neuropathy bilateral feet, DVT L leg, PVD, CKD stage III/has L arm AV fistula with past dialysis, chronic anemia, pt believes she has had gout, PVD, current wound L heel/toes, past decub coccyx/R buttock, cellulitis R leg, osteomylitis R foot/toes, constipation/diverticular disease, bilateral tinnitis, History of Any Multi-Drug Resistant Organisms: MRSA Year Discovered:: 01/25/19 MDRO Source:: FOOT Past Surgical History: Appendectomy, Cholecystectomy, Orthopedic Surgery Additional Past Surgical History / Comment(s): 11/25/19 ligation branches L upper extremity fistula, 07/2019 L arm A/V fistula, partial amputation R 5th/3rd toe, bilateral cataracts/lens/RK, ovarian cystectomy. Past Anesthesia/Blood Transfusion Reactions: No Reported Reaction Additional Past Anesthesia/Blood Transfusion Reaction / Comm: clausterphobia Smoking Status: Former smoker - Past Family History Father Additional Family Medical History / Comment(s): ALCOHOLIC Mother Family Medical History: Cancer, CVA/TIA, Diabetes Mellitus, Myocardial Infarction ([place]) Additional Family Medical History / Comment(s): Colon cancer Brother(s) Additional Family Medical History / Comment(s): DRUG DEPENDENCY Medications and Allergies Home Medications Medication Instructions Recorded Confirmed Type Metoprolol Tartrate [Lopressor] 25 mg PO BID 03/09/18 12/28/19 History Aspirin EC [Ecotrin Low Dose] 81 mg PO DAILY 01/26/19 12/28/19 History Cholecalciferol [Vitamin D3 (25 3,000 unit PO HS 05/12/19 12/28/19 History Mcg = 1000 Iu)] Ferrous Sulfate [Feosol] 325 mg PO BID 05/12/19 12/28/19 History Furosemide [Lasix] 40 mg PO DAILY 05/12/19 12/28/19 History allopurinoL [Zyloprim] 100 mg PO DAILY 05/12/19 12/28/19 History Folic Acid-Vit B Complex-Vit C 1 mg PO HS 07/29/19 12/28/19 History [Nephrocaps] Sodium Bicarbonate 650 mg PO AC-TID 07/29/19 12/28/19 History amLODIPine [Norvasc] 10 mg PO HS 07/29/19 12/28/19 History Apixaban [Eliquis] 5 mg PO BID 11/20/19 12/28/19 History Calcium Carbonate 1,000 mg PO TID 11/20/19 12/28/19 History Psyllium Husk 100% [Metamucil 6 gm PO BID PRN 11/20/19 12/28/19 History Packet] Darbepoetin Mckay [Aranesp] 60 mcg SQ FR 12/28/19 12/28/19 History Cefuroxime Axetil [Ceftin] 500 mg PO DAILY 7 Days #7 tab 01/01/20 Rx Allergies Allergy/AdvReac Type Severity Reaction Status Date / Time Penicillins Allergy Severe Rash/Hives, Verified 12/28/19 23:44 Itching simvastatin [From Zocor] AdvReac Severe constipation, Verified 12/28/19 23:44 dry cough pregabalin [From Lyrica] AdvReac Unknown Verified 12/28/19 23:44 tide laundry detergent Allergy Itching Uncoded 12/28/19 23:44 Surgical - Exam Vital Signs Temp Pulse Resp BP Pulse Ox 101.5 F H 82 18 193/83 99 12/28/19 22:25 12/28/19 22:25 12/28/19 22:25 12/28/19 22:25 12/28/19 22:25 General appearance: The patient is alert, oriented, in no acute distress. HET: Head is normocephalic and atraumatic. Neck: Supple without lymphadenopathy. Trachea midline. Heart: S1 S2. Regular rate and rhythm. Lungs: Decreased breath sounds Abdomen: Soft, nontender, nondistended with bowel sounds. Extremities: Normal skin color and turgor. No cyanosis, rash, ulceration, clubbing, or edema. Radial pulses 2/4 bilaterally. Palpable left brachial pulsatility palpated at fistula, no thrill noted. Neurological: No focal deficits. Strength and sensation are grossly intact. Results Chest x-ray:revealed maybe a mild right infrahilar infiltrate. Follow up exams can be performed as clinically indicated CT abdomen and pelvis shows diverticulosis without acute diverticulitis. Enlarged right adrenal gland. Dynamic CT abdomen with contrast can evaluate the adrenal gland Echocardiogram: There is moderate concentric left ventricular hypertrophy, EF between 55-60%, the left atrium is moderately dilated, there is no aortic stenosis or regurgitation, moderate mitral annular calcification present, mild mitral regurgitation, moderate tricuspid regurgitation, there is moderate pulmonary hypertension. - Labs 12/31/19 06:39 01/01/20 09:51 Abnormal Lab Results - Last 24 Hours (Table) 12/31/19 12/31/19 01/01/20 Range/Units 16:46 20:44 07:07 Chloride (98-107) mmol/L BUN (7-17) mg/dL Creatinine (0.52-1.04) mg/dL Glucose (74-99) mg/dL POC Glucose (mg/dL) 151 H 162 H 110 H (75-99) mg/dL Calcium (8.4-10.2) mg/dL 01/01/20 01/01/20 Range/Units 09:51 11:08 Chloride 110 H (98-107) mmol/L BUN 88 H (7-17) mg/dL Creatinine 4.95 H (0.52-1.04) mg/dL Glucose 153 H (74-99) mg/dL POC Glucose (mg/dL) 157 H (75-99) mg/dL Calcium 8.2 L (8.4-10.2) mg/dL Microbiology - Last 24 Hours (Table) 12/30/19 09:14 Gram Stain - Final Foot - Left Wound Culture - Final Providencia stuartii 12/28/19 00:00 Blood Culture - Preliminary Blood No Growth after 72 hours 12/29/19 16:30 Urine Culture - Final Urine,Voided Escherichia coli Diabetes panel 01/01/20 Range/Units 09:51 Sodium 141 (137-145) mmol/L Potassium 4.1 (3.5-5.1) mmol/L Chloride 110 H (98-107) mmol/L Carbon Dioxide 22 (22-30) mmol/L BUN 88 H (7-17) mg/dL Creatinine 4.95 H (0.52-1.04) mg/dL Glucose 153 H (74-99) mg/dL Calcium 8.2 L (8.4-10.2) mg/dL Calcium panel 01/01/20 Range/Units 09:51 Calcium 8.2 L (8.4-10.2) mg/dL Pituitary panel 01/01/20 Range/Units 09:51 Sodium 141 (137-145) mmol/L Potassium 4.1 (3.5-5.1) mmol/L Chloride 110 H (98-107) mmol/L Carbon Dioxide 22 (22-30) mmol/L BUN 88 H (7-17) mg/dL Creatinine 4.95 H (0.52-1.04) mg/dL Glucose 153 H (74-99) mg/dL Calcium 8.2 L (8.4-10.2) mg/dL Adrenal panel 01/01/20 Range/Units 09:51 Sodium 141 (137-145) mmol/L Potassium 4.1 (3.5-5.1) mmol/L Chloride 110 H (98-107) mmol/L Carbon Dioxide 22 (22-30) mmol/L BUN 88 H (7-17) mg/dL Creatinine 4.95 H (0.52-1.04) mg/dL Glucose 153 H (74-99) mg/dL Calcium 8.2 L (8.4-10.2) mg/dL Assessment and Plan Assessment: 1. Chronic kidney disease stage IV-V follows with nephrology 2. Evaluation of recent ligation of left upper extremity AV brachiocephalic fistula maturation 3. History of left foot wound, wound culture growing gram-negative bacilli, patient follows with the wound care clinic 4. Urinary tract infection 5. Morbid obesity 6. Diabetes mellitus 7. Hypertension hyperlipidemia Plan: The patient was discussed with Dr. Davis. The patient was supposed to have a follow-up exam this past Saturday with Dr. Guo, however patient was hospitalized. Patient is being discharged to extended care facility today. The patient may be discharged from a vascular surgical standpoint. There is no indication for acute surgical intervention. Patient can have outpatient follow- up with Dr. Guo next week for further evaluation of maturity of the left upper extremity AV fistula. Thank you for this kind referral and the opportunity to participate in the care of your patient. This consultation was discussed with Dr. Davis. The impression and plan of care have been directed as dictated.
--- NOTE | 2020-01-01 14:43 | P.DS ---
Providers Date of admission: 12/30/19 10:15 Expected date of discharge: 01/01/20 Attending physician: Charles Cox Consults: 12/28/19 23:56 Consult Physician Routine Consulting Provider: Pb Rich Consult Reason/Comments: fever Do you want consulting provider notified?: Yes Consult Physician Routine Consulting Provider: Ebonie Cunningham Consult Reason/Comments: chf Do you want consulting provider notified?: Yes Consult Physician Routine Consulting Provider: Cleopatra Hahn Consult Reason/Comments: arf Do you want consulting provider notified?: Yes 01/01/20 10:18 Consult Physician Routine Consulting Provider: Alea Guo Consult Reason/Comments: eval graft Do you want consulting provider notified?: Yes Primary care physician: [facility] Course: presenting complaint: Sepsis Interval history: Admitted with sepsis possibly UTI. Started on IV ceftriaxone. Also treated for a left foot infection and cellulitis. patient also felt to have possible colitis infectious type. COVID 19 was ruled out. Patient was previously on dialysis. Not anymore. She has a left upper extremity brachiocephalic AV fistula created in July of this year by Dr. Guo. Patient seems at some point may need dialysis again. Not at the present time. Today-sitting up in a chair. Stable. Eating fairly. Discussed with the patient. Discussed with Dr. Lepe from ID. Okay to switch to oral antibiotics. Patient will follow up with Dr. Guo in the outpatient. From vascular surgery. Wound care of the lower extremity of the left leg to continue. Discussion and discharge planning more than 35 minutes Consultants: Vascular surgery -Dr. cunningham from cardiology Dr. Rich from ID Dr. Hahn from nephrology On examination: VITAL SIGNS: 98.1, 74, 20, 157/67, 93% room air GENERAL APPEARANCE: Sitting up in a chair, comfortable EYES: Pupils equal. Conjunctiva normal. NECK: JVD not raised. Mass not palpable. RESPIRATORY: Respiratory effort normal. Lungs distant breath sounds CARDIOVASCULAR: First and second sounds normal. No edema. EXTREMITY: Left upper extremity AV fistula ABDOMEN: Soft. Liver and spleen not palpable. No tenderness. No mass palpable. PSYCHIATRY: Alert and oriented x3. Mood and affect normal. EXTREMITY: Left foot wound INVESTIGATIONS, reviewed in the clinical context: Potassium 4.1 bun 88 creatinine 4.95 previous testing: Computed tomography scan of the abdomen pelvis without contrast-right adrenal gland 3.9 cm. Diverticulosis. Some limitation of the bowels because of lack of contrast 2-D echocardiogram-moderate concentric LVH, LV systolic function EF 55-60%, moderate tricuspid regurgitation, moderate pulmonary hypertension -COVID 19 P/Cr-not detected urine culture-E. coli Assessment: -Possible acute infectious colitis. Computed tomography scan did not show the same as some lack of contrast in certain areas of the bowel. the patient had abdominal tenderness and diarrhea.-Which is better POA -Acute UTI with cystitis-E. coli -Diabetes mellitus type 2 -GERD -Hyperlipidemia -Essential hypertension -Primary osteoarthritis -Diabetic peripheral neuropathy -Chronic kidney disease stage 5 with left arm AV fistula with prior hemodialysis -Chronic anemia of chronic kidney disease -Peripheral arterial disease -Chronic diverticulosis-asymptomatic -Chronic gait dysfunction able to transfer self to a wheelchair -Chronic urinary incontinence -Morbid obesity BMI 40.6 -Metabolic acidosis from renal failure -Left foot wound with acute cellulitis-cultures showing Providencia stuartii Disposition: ECF/[facility] BMP-4 days Patient Condition at Discharge: Stable Plan - Discharge Summary Discharge Rx Participant: No New Discharge Prescriptions: New Cefuroxime Axetil [Ceftin] 500 mg PO DAILY 7 Days #7 tab hydrALAZINE HCL [Apresoline] 50 mg PO TID tab Apixaban [Eliquis] 2.5 mg PO BID tablet Isosorbide Mononitrate ER [Imdur] 30 mg PO DAILY tab.er.24h Acetaminophen Tab [Tylenol Tab] 500 mg PO Q6H PRN #1 tablet PRN Reason: Pain Continue Metoprolol Tartrate [Lopressor] 25 mg PO BID Aspirin EC [Ecotrin Low Dose] 81 mg PO DAILY allopurinoL [Zyloprim] 100 mg PO DAILY Cholecalciferol [Vitamin D3 (25 Mcg = 1000 Iu)] 3,000 unit PO HS Ferrous Sulfate [Feosol] 325 mg PO BID amLODIPine [Norvasc] 10 mg PO HS Sodium Bicarbonate 650 mg PO AC-TID Folic Acid-Vit B Complex-Vit C [Nephrocaps] 1 mg PO HS Calcium Carbonate 1,000 mg PO TID Psyllium Husk 100% [Metamucil Packet] 6 gm PO BID PRN PRN Reason: Diarrhea Darbepoetin Mckay [Aranesp] 60 mcg SQ FR Changed Furosemide [Lasix] 40 mg PO BID #0 Discontinued Apixaban [Eliquis] 5 mg PO BID Discharge Medication List Metoprolol Tartrate [Lopressor] 25 mg PO BID 03/09/18 [History] Aspirin EC [Ecotrin Low Dose] 81 mg PO DAILY 01/26/19 [History] Cholecalciferol [Vitamin D3 (25 Mcg = 1000 Iu)] 3,000 unit PO HS 05/12/19 [History] Ferrous Sulfate [Feosol] 325 mg PO BID 05/12/19 [History] allopurinoL [Zyloprim] 100 mg PO DAILY 05/12/19 [History] Folic Acid-Vit B Complex-Vit C [Nephrocaps] 1 mg PO HS 07/29/19 [History] Sodium Bicarbonate 650 mg PO AC-TID 07/29/19 [History] amLODIPine [Norvasc] 10 mg PO HS 07/29/19 [History] Calcium Carbonate 1,000 mg PO TID 11/20/19 [History] Psyllium Husk 100% [Metamucil Packet] 6 gm PO BID PRN 11/20/19 [History] Darbepoetin Mckay [Aranesp] 60 mcg SQ FR 12/28/19 [History] Acetaminophen Tab [Tylenol Tab] 500 mg PO Q6H PRN #1 tablet 01/01/20 [Rx] Apixaban [Eliquis] 2.5 mg PO BID tablet 01/01/20 [Rx] Cefuroxime Axetil [Ceftin] 500 mg PO DAILY 7 Days #7 tab 01/01/20 [Rx] Furosemide [Lasix] 40 mg PO BID #0 01/01/20 [Rx] Isosorbide Mononitrate ER [Imdur] 30 mg PO DAILY tab.er.24h 01/01/20 [Rx] hydrALAZINE HCL [Apresoline] 50 mg PO TID tab 01/01/20 [Rx] Follow up Appointment(s)/Referral(s): Cleopatra Hahn MD [STAFF PHYSICIAN] - 1 Week Dav Roldan DO [Primary Care Provider] - 1-2 days (At [facility]) Alea Guo DO [STAFF PHYSICIAN] - 01/06/20 ( Office closed at time of discharge please call SaturdayJanuary 03 to [facility] a [facility][phone][facility] Wound Healing,Center [NON-STAFF] - 1 Week (Usual appointment on [address] Bah[address] Unable to reach wound center, patient/staff need to follow-up. )
[2020-01-01 15:22] VITALS: BP 161/77; PULSE 67; RESP 18; TEMP 97.6
[2020-01-01] MEDS ORDERED: metroNIDAZOLE 500 MG TAB PO SCH (16:00)
--- NOTE | 2020-01-01 17:02 | PN ---
PROGRESS NOTE DATE OF SERVICE: 01/01/2020 REASON FOR FOLLOWUP: E coli urinary tract infection. Left foot infected wound and lower extremity cellulitis. INTERVAL HISTORY: The patient is currently afebrile. The patient is breathing comfortably. The patient denies having any chest pain, shortness of breath or cough. No nausea or vomiting. No abdominal pain. Overall feeling better. No pain to the left lower extremity. PHYSICAL EXAMINATION: Blood pressure 157/67, pulse of 74, temperature 98.1. She is 93% on room air. General description is an elderly female up in a chair in no distress. RESPIRATORY SYSTEM: Unlabored breathing. Clear to auscultation anteriorly. HEART: S1, S2. Regular rate and rhythm. ABDOMEN: Soft. No tenderness. Left leg is currently wrapped up. No obvious drainage on the dressing. LABS: Creatinine is 4.95. Urine with E coli. Foot with Providencia. DIAGNOSTIC IMPRESSION AND PLAN: Patient with a fever, multifactorial, in this patient who did have Escherichia coli urinary tract infection, also with left lower extremity wound with secondary cellulitis. Overall responding to the Rocephin. Plan to finish therapy with a short course of oral Ceftin. Local care to continue as ordered and close outpatient followup. Discussed with the admitting physician working on discharge. MMODL / IJN: [id number] /
--- NOTE | 2020-01-01 19:52 | PN ---
PROGRESS NOTE Patient is seen for followup for chronic kidney disease. She was admitted to the hospital with an underlying urinary tract infection and a wound infection on the left foot. Patient is maintained on antibiotics. Her serum creatinine did increase slightly to 4.6 and 4.9 from baseline of about 4 mg/dL. However, patient has a previous AV graft in the left arm and she is supposed to follow with Dr. Guo. She has had intervention on the AV graft. Patient denies any significant complaints. No nausea, vomiting, abdominal pain, chest pains or shortness of breath. PHYSICAL EXAMINATION: On examination, she is comfortable. Blood pressure 157/67, heart rate 74 per minute. She is afebrile. EXAMINATION OF THE HEART: S1 and S2. EXAMINATION OF LUNGS: Bilateral breath sounds are heard. ABDOMEN: Soft, non-tender, obese. Examination of lower extremities shows chronic skin changes. No significant edema. Left foot is currently wrapped. LABS: Labs show sodium 141, potassium 4.1, chloride 110, BUN 88, creatinine 4.95. ASSESSMENT: 1. Acute kidney injury on top of chronic kidney disease, mostly acute tubular necrosis, currently nonoliguric. Patient does not need dialysis at this time. However, she needs to follow up closely as outpatient with Nephrology and Vascular Surgery for further intervention on her left arm AV fistula. 2. Urinary tract infection, maintained on antibiotics. 3. Left foot wound infection, currently maintained on ceftriaxone. 4. Metabolic acidosis, maintained on oral sodium bicarb. PLAN: Patient can be discharged with plans for close followup as outpatient. I did consult Vascular Surgery while she was in the hospital to evaluate her AV fistula and plan for any further intervention that she might need. MMODL / IJN: [id number] /
== END 2020-01-01 16:50 | DRG 871 ==
LOC: EC 22:22 → 4SSUR 23:58 → OBSVTOIN 12-30 10:15
PROVIDERS: ADMIT Hospitalist; ATTEND Hospitalist
DX: A41.51 Sepsis due to Escherichia coli [E. coli] (principal); L89.623 Pressure ulcer of left heel, stage 3; N17.0 Acute kidney failure with tubular necrosis; N30.00 Acute cystitis without hematuria; E87.2 Acidosis; I13.2 Hypertensive heart and chronic kidney disease with heart failure and with stage 5 chronic kidney disease, or end stage renal disease; L03.116 Cellulitis of left lower limb; N18.5 Chronic kidney disease, stage 5; Z68.41 Body mass index [BMI] 40.0-44.9, adult; D63.1 Anemia in chronic kidney disease; Z20.828 Contact with and (suspected) exposure to other viral communicable diseases; B96.89 Other specified bacterial agents as the cause of diseases classified elsewhere; E11.22 Type 2 diabetes mellitus with diabetic chronic kidney disease; K52.89 Other specified noninfective gastroenteritis and colitis; E11.42 Type 2 diabetes mellitus with diabetic polyneuropathy; E11.51 Type 2 diabetes mellitus with diabetic peripheral angiopathy without gangrene; E11.621 Type 2 diabetes mellitus with foot ulcer; E66.01 Morbid (severe) obesity due to excess calories; E78.5 Hyperlipidemia, unspecified; E83.9 Disorder of mineral metabolism, unspecified; G40.909 Epilepsy, unspecified, not intractable, without status epilepticus; I50.9 Heart failure, unspecified; K21.9 Gastro-esophageal reflux disease without esophagitis; E27.8 Other specified disorders of adrenal gland; K57.90 Diverticulosis of intestine, part unspecified, without perforation or abscess without bleeding; M19.91 Primary osteoarthritis, unspecified site; Z79.01 Long term (current) use of anticoagulants; Z79.82 Long term (current) use of aspirin; Z79.899 Other long term (current) drug therapy; Z80.0 Family history of malignant neoplasm of digestive organs; Z82.49 Family history of ischemic heart disease and other diseases of the circulatory system; Z83.3 Family history of diabetes mellitus; Z81.1 Family history of alcohol abuse and dependence; Z82.3 Family history of stroke; Z81.3 Family history of other psychoactive substance abuse and dependence; F40.240 Claustrophobia; Z88.0 Allergy status to penicillin; Z88.8 Allergy status to other drugs, medicaments and biological substances; Z86.718 Personal history of other venous thrombosis and embolism; Z87.891 Personal history of nicotine dependence; Z86.14 Personal history of Methicillin resistant Staphylococcus aureus infection; H93.13 Tinnitus, bilateral; Z89.421 Acquired absence of other right toe(s); Z98.42 Cataract extraction status, left eye; Z98.41 Cataract extraction status, right eye; Z96.1 Presence of intraocular lens; R26.9 Unspecified abnormalities of gait and mobility; Z74.01 Bed confinement status; Z90.49 Acquired absence of other specified parts of digestive tract
CPT/HCPCS: 36415; 71045; 74022; 74176; 80048; 80053; 81001; 83605; 83615; 83735; 83880; 84484; 85025; 85027; 85379; 85610; 85730; 86140; 87040; 87070; 87077; 87086; 87186; 87205; 93005; 93306; 94640; 96374; 99285

== ENCOUNTER 2020-01-27 11:26 | Day surgery (SDC) | payer MEDICARE, OTHER ==
[2020-01-26 10:48] VITALS: BMI 38.7
[2020-01-27] MEDS ORDERED: SODIUM CHLORIDE 0.9% 500 ML 500 ML IV ONE (11:47)
[2020-01-27] MEDS ORDERED: SODIUM CHLORIDE 0.9% 1,000 ML IV SCH (12:00)
[2020-01-27 12:06] LABS: Glucose,Whole Blood 110 mg/dL (75-99)
[2020-01-27 12:13] VITALS: RESP 16; TEMP 97.9
[2020-01-27] MEDS ORDERED: CLINDAMYCIN 600 MG in DEXTROSE 5% IN WATER 50 ML IVPB STA ×2 (13:08)
[2020-01-27] MEDS ORDERED: MIDAZOLAM 2 MG/2 ML VIAL IV ONE ×2 (13:14)
[2020-01-27] MEDS ORDERED: LIDOCAINE 1% INJ 10MG/ML (20 ML MDV) SQ ONE (13:15)
--- NOTE | 2020-01-27 14:00 | P.OP ---
Date of Procedure: 01/27/20 Description of Procedure: Preoperative diagnosis: End-stage renal disease, now requiring dialysis Postoperative diagnosis: Same Procedure: [#1 ultrasound-guided right internal jugular access #2 fluoroscopic assisted placement of tunneled central venous catheter for hemodialysis #3 22 minutes of moderate conscious sedation] Surgeon: Alea Guo D.O. EBL: Less than 10 mL IV fluids: [See records] Urine output: [Not measured] Drains: [None] Complications: [None immediately apparent] Condition: [Stable to recovery] Operative indication and findings: [The patient is a 69-year-old female who has had issues with chronic kidney disease, now end-stage renal disease requiring dialysis. She has been recommended to undergo placement of a tunneled dialysis catheter, this point she has no access. We are working on scheduling a fistula creation. Risks and benefits of going forward states procedure were discussed with the patient. She seemingly understands and is willing to proceed as such] Procedure in detail: [Patient was taken to the special suite and placed in supine position. The bilateral necks were prepped and draped in usual sterile fashion. A preprocedure timeout was performed, all parties are in agreement. The ultrasound was utilized and the right internal jugular vein was identified. The skin overlying was anesthetized 1% lidocaine plain. Using a multipurpose needle of the vein was cannulated under direct visualization with return of dark venous nonpulsatile blood. A guidewire is advanced and down into the inferior vena cava with fluoroscopic guidance. That point the proposed tunnel was anesthetized in the neck in the skin was made at the level 2 fingerbreadths below the clavicle. This is also done at the level of the Glidewire in the neck. The previously flushed 23 cm tunneled dialysis catheter was placed. Under fluoroscopic visualization the subcutaneous tracts were dilated. The tear-away sheath was placed, the inner cannula and wire were removed. The catheter was placed. The tear-away sheath was removed and the catheter left in good position. It aspirated and flushed well. It was instilled with heparinized saline. The neck incision was reapproximated with interrupted sutures of 4-0 Vicryl. The catheter was sutured in place with 3-0 nylon. A pursestring suture was placed around the opening of the catheter into oozing. A dressing was placed. The patient was transferred back to recovery in stable condition. Postprocedure chest x-ray is pending Plan - Discharge Summary New Discharge Prescriptions: No Action RX: Metoprolol Tartrate [Lopressor] 25 mg PO BID RX: Aspirin EC [Ecotrin Low Dose] 81 mg PO DAILY RX: allopurinoL [Zyloprim] 100 mg PO HS RX: Cholecalciferol [Vitamin D3 (25 Mcg = 1000 Iu)] 3,000 unit PO DAILY RX: Ferrous Sulfate [Feosol] 325 mg PO BID RX: amLODIPine [Norvasc] 10 mg PO HS RX: Sodium Bicarbonate 650 mg PO Q8HR RX: Calcium Carbonate 1,000 mg PO Q8HR RX: Darbepoetin Mckay [Aranesp] 60 mcg SQ FR RX: hydrALAZINE HCL [Apresoline] 50 mg PO TID tab RX: Apixaban [Eliquis] 2.5 mg PO BID tablet RX: Isosorbide Mononitrate ER [Imdur] 30 mg PO DAILY tab.er.24h Acetaminophen Tab [Tylenol Tab] 500 mg PO Q6H PRN #1 tablet PRN Reason: Pain RX: Furosemide [Lasix] 40 mg PO BID #0 Discharge Medication List RX: Metoprolol Tartrate [Lopressor] 25 mg PO BID 03/09/18 [History] RX: Aspirin EC [Ecotrin Low Dose] 81 mg PO DAILY 01/26/19 [History] RX: Cholecalciferol [Vitamin D3 (25 Mcg = 1000 Iu)] 3,000 unit PO DAILY 05/12/19 [History] RX: Ferrous Sulfate [Feosol] 325 mg PO BID 05/12/19 [History] RX: allopurinoL [Zyloprim] 100 mg PO HS 05/12/19 [History] RX: Sodium Bicarbonate 650 mg PO Q8HR 07/29/19 [History] RX: amLODIPine [Norvasc] 10 mg PO HS 07/29/19 [History] RX: Calcium Carbonate 1,000 mg PO Q8HR 11/20/19 [History] RX: Darbepoetin Mckay [Aranesp] 60 mcg SQ FR 12/28/19 [History] Acetaminophen Tab [Tylenol Tab] 500 mg PO Q6H PRN #1 tablet 01/01/20 [Rx] RX: Apixaban [Eliquis] 2.5 mg PO BID tablet 01/01/20 [Rx] RX: Furosemide [Lasix] 40 mg PO BID #0 01/01/20 [Rx] RX: Isosorbide Mononitrate ER [Imdur] 30 mg PO DAILY tab.er.24h 01/01/20 [Rx] RX: hydrALAZINE HCL [Apresoline] 50 mg PO TID tab 01/01/20 [Rx] Follow up Appointment(s)/Referral(s): Alea Guo DO [STAFF PHYSICIAN] - 2 Weeks Patient Instructions/Handouts: Perma-cath Placement (DC)
--- NOTE | 2020-01-27 14:49 | XR ---
EXAMINATION TYPE: XR chest 1V portable DATE OF EXAM: 01/27/2020 HISTORY: Shortness of breath. COMPARISON: 12/29/2019 TECHNIQUE: Single view of the chest is submitted. FINDINGS: Demonstrated are scattered senescent parenchymal change. Right IJ central venous line with its dista l tip overlying the SVC. No evidence for pneumothorax. Improving infrahilar infiltrates. The heart is stable. Hilar and mediastinal structures are within normal limits. Degenerative changes are seen of the dorsal spine. IMPRESSION: 1. Improving infrahilar infiltrates.
[2020-01-27 15:17] VITALS: BP 150/70; PULSE 69
--- NOTE | 2020-01-27 15:45 | IR ---
Fluoroscopy HISTORY: Dialysis catheter placement .4 minutes fluoroscopy time supplied to the referring clinician. 6 intraoperative C-arm images docum ent the procedure. See dictated report from vascular surgery.
== END 2020-01-27 15:14 | disposition home or self-care (01) ==
LOC: CATHCVL 11:26
PROVIDERS: ATTEND Surgery
DX: I13.2 Hypertensive heart and chronic kidney disease with heart failure and with stage 5 chronic kidney disease, or end stage renal disease (principal); N18.6 End stage renal disease; E11.22 Type 2 diabetes mellitus with diabetic chronic kidney disease; I50.9 Heart failure, unspecified; Z79.899 Other long term (current) drug therapy; Z79.82 Long term (current) use of aspirin; Z88.0 Allergy status to penicillin; Z88.8 Allergy status to other drugs, medicaments and biological substances; N17.9 Acute kidney failure, unspecified; D64.9 Anemia, unspecified; L03.90 Cellulitis, unspecified; E78.5 Hyperlipidemia, unspecified; E66.01 Morbid (severe) obesity due to excess calories; Z68.41 Body mass index [BMI] 40.0-44.9, adult; J90 Pleural effusion, not elsewhere classified; Z89.431 Acquired absence of right foot; Z90.49 Acquired absence of other specified parts of digestive tract; Z98.890 Other specified postprocedural states
CPT/HCPCS: 36558; 76937; 77001; 71045; C1769 ×2; C1750; J2250; J2001

== ENCOUNTER → 2020-03-04 | Day surgery (SDC) | payer MEDICARE, OTHER ==
[2020-03-02 15:11] VITALS: BMI 38.0
[~2020-03-04] MED LIST changes: +BUPIVACAINE (PF) 0.5% 30 ML VIAL SQ ONE; +DEXAMETHASONE SOD PHOSPHATE 4 MG/ML 1 ML VIAL IV ONE; +DEXAMETHASONE SOD PHOSPHATE 4 MG/ML 1 ML VIAL ONE; -FAMOTIDINE 20 MG/2 ML VIAL IV PRN; +GELATIN SPONGE,ABSORB (LARGE) 1 EACH SPONGE TOPICAL ONE; +HEPARIN SODIUM,PORCINE 2,000 UNIT in SODIUM CHLORIDE 0.9% 500 ML 500 ML IRRIGATION ONE; +HEPARIN SODIUM,PORCINE 5,000 UNIT/ML 1 ML VIAL ONE; +LIDOCAINE 1% (10MG/ML) FOR IV START INTRADERMA ONE; -LIDOCAINE 1% (10MG/ML) FOR IV START INTRADERMA PRN; +LIDOCAINE 1% INJ 10MG/ML (20 ML MDV) ONE; +LIDOCAINE 1% INJ 10MG/ML (20 ML MDV) SQ ONE; +MIDAZOLAM 2 MG/2 ML VIAL IV PRN; +MIDAZOLAM 2 MG/2 ML VIAL ONE; +ONDANSETRON 4 MG/2 ML VIAL IVP ONE; -ONDANSETRON 4 MG/2 ML VIAL IVP PRN; +PROPOFOL 10 MG/ML 20 ML VIAL IV ONE; +ROPIVACAINE 5 MG/ML 30 ML VIAL ONE; +SODIUM CHLORIDE 0.9% 1,000 ML IV ONE; +SUCCINYLCHOLINE CHLORIDE 100 MG/5 ML SYR IV ONE; +THROMBIN (BOVINE) 5,000 UNIT VIAL TOPICAL ONE; +ceFAZolin 2 GM in SODIUM CHLORIDE 0.9% 500 ML 500 ML IRRIGATION ONE; -ceFAZolin 3 GM in SODIUM CHLORIDE 0.9% 100 ML IVPB ONE; +ePHEDrine SULFATE/0.9% NACL/PF 50 MG/5 ML SYRINGE IV ONE; +fentaNYL (PF) 50 MCG/ML 2 ML AMP ONE
[2020-03-04 07:17] LABS: Glucose,Whole Blood 174 mg/dL (75-99)
[2020-03-04 07:40] LABS: Albumin 3.8 g/dL (3.5-5.0); Calcium 9.1 mg/dL (8.4-10.2); Total Bilirubin 0.7 mg/dL (0.2-1.3); Total Protein 7.3 g/dL (6.3-8.2)
[2020-03-04 07:45] LABS: Potassium 4.3 mmol/L (3.5-5.1)
--- NOTE | 2020-03-04 08:45 | P.ANPRN ---
Procedure Note - Anesthesia - Nerve Block Performed Left Supraclavicular Time Out Performed: Yes (:) Date of Procedure: 03/04/20 Procedure Start Time: Procedure Stop Time: Location of Patient: PreOp Indication: Acute Post-Operative Pain, Requested by Surgeon (Dr Guo) Sedation Type: Sedate with meaningful contact maintained Preparation: Sterile Prep Position: Supine Catheter: None Needle Types: Pajunk Needle Gauge: Other (see comment) (22g) Ultrasound used to visualize needle placement: Yes Ultrasound used to observe medication spread: Yes Injectate: 0.5% Ropivacaine (see comment for volume) (20cc) Blood Aspirated: No Pain Paresthesia on Injection Noted: No Resistance on Injection: Normal Image Stored and Saved: Yes Events: Uneventful and Well Tolerated
--- NOTE | 2020-03-04 10:15 | P.OP ---
Date of Procedure: 03/04/20 Description of Procedure: Preoperative diagnosis: End-stage renal disease on dialysis Postoperative diagnosis: Same Procedure: [Left upper extremity first stage brachial basilic AV fistula creation] Surgeon: Alea Guo D.O. EBL: [15 mL] IV fluids: [See records] Urine output: [Not measured] Drains: [None] Complications: [None immediately apparent] Condition: [Stable to recovery] Operative indication and findings: [The patient is a 69-year-old female with a past medical history of end-stage renal disease who presented previously for AV fistula creation. A brachiocephalic fistula was created and subsequent thrombosed. She is currently getting dialysis via a chest wall tunneled catheter. She was found to have an adequate-sized basilic vein therefore she was brought to the operating room for a brachiobasilic first stage fistula creation] Procedure in detail: [Patient was taken to the operative suite and placed in supine position. Previous block of the left upper extremity was performed but found to be insufficient therefore general anesthesia was induced per anesthesia's decision. The left upper extremity was prepped and draped in usual sterile fashion a preprocedure timeout was performed and all parties were in agreement. The ultrasound was utilized in the brachial artery as well as the basilic vein were identified. In incision was made in the transverse direction just proximal to the renal fossa, and the same locale of previous incision. The dissection was carried onto the level of the brachial artery where the previous anastomosis was identified. A portion of the brachial artery with good pulsatile flow distally was dissected free and encircled proximally and dista lly. Attention was then turned towards the basilic vein. A branch of the basilic vein was identified and dissected free from its surroundings. Any branches visualized were ligated with 4-0 silk sutures. The patient was heparinized. The vein was transected and serially dilated. Arteriotomy was created after cessation of flow through the artery. Stay sutures of 6-0 silk were placed. Anastomosis created with sutures of 7-0 Prolene. Prior to completion of the anastomosis the artery was a lot of backbleeding as well as the vein. The anastomosis completed. The artery was again backbled into the vein. The distal flow was then occluded and the proximal flow was opened and on flushed through the level of the vein. Hemostasis was adequate. Further dissection up the vein was performed and any further branches were ligated. There was good flow through the vein although slightly pulsatile. The patient maintained a palpable pulse in her radial artery after the procedure. There was copiously irrigated. The subcu tissues were reapproximated with interrupted sutures of 3-0 Vicryl. The skin was reapproximated with running 4-0 Monocryl. Skin glue was placed. The patient was allowed awaken from anesthesia and transferred to recovery in stable condition having tolerated procedure well] Plan - Discharge Summary Discharge Rx Participant: No New Discharge Prescriptions: No Action Metoprolol Tartrate [Lopressor] 25 mg PO BID Aspirin EC [Ecotrin Low Dose] 81 mg PO DAILY allopurinoL [Zyloprim] 100 mg PO HS Cholecalciferol [Vitamin D3 (25 Mcg = 1000 Iu)] 3,000 unit PO DAILY amLODIPine [Norvasc] 10 mg PO HS Calcium Carbonate 1,000 mg PO Q8HR Darbepoetin Mckay [Aranesp] 60 mcg SQ FR PRN PRN Reason: hbg < 10.5 hydrALAZINE HCL [Apresoline] 50 mg PO TID tab Apixaban [Eliquis] 2.5 mg PO BID tablet Isosorbide Mononitrate ER [Imdur] 30 mg PO DAILY tab.er.24h Acetaminophen Tab [Tylenol Tab] 500 mg PO Q6H PRN #1 tablet PRN Reason: Pain Furosemide [Lasix] 40 mg PO BID #0 Discharge Medication List Metoprolol Tartrate [Lopressor] 25 mg PO BID 03/09/18 [History] Aspirin EC [Ecotrin Low Dose] 81 mg PO DAILY 01/26/19 [History] Cholecalciferol [Vitamin D3 (25 Mcg = 1000 Iu)] 3,000 unit PO DAILY 05/12/19 [History] allopurinoL [Zyloprim] 100 mg PO HS 05/12/19 [History] amLODIPine [Norvasc] 10 mg PO HS 07/29/19 [History] Calcium Carbonate 1,000 mg PO Q8HR 11/20/19 [History] Darbepoetin Mckay [Aranesp] 60 mcg SQ FR PRN 12/28/19 [History] Acetaminophen Tab [Tylenol Tab] 500 mg PO Q6H PRN #1 tablet 01/01/20 [Rx] Apixaban [Eliquis] 2.5 mg PO BID tablet 01/01/20 [Rx] Furosemide [Lasix] 40 mg PO BID #0 01/01/20 [Rx] Isosorbide Mononitrate ER [Imdur] 30 mg PO DAILY tab.er.24h 01/01/20 [Rx] hydrALAZINE HCL [Apresoline] 50 mg PO TID tab 01/01/20 [Rx]
[2020-03-04 10:25] VITALS: RESP 18; TEMP 96.8
[2020-03-04 11:25] LABS: Glucose,Whole Blood 216 mg/dL (75-99)
[2020-03-04 11:51] VITALS: BP 105/70; PULSE 66
== END ==
LOC: OR 06:19
PROVIDERS: ATTEND Surgery
DX: I13.2 Hypertensive heart and chronic kidney disease with heart failure and with stage 5 chronic kidney disease, or end stage renal disease (principal); E11.22 Type 2 diabetes mellitus with diabetic chronic kidney disease; N18.6 End stage renal disease; I50.9 Heart failure, unspecified; D63.1 Anemia in chronic kidney disease; Z99.2 Dependence on renal dialysis; N17.9 Acute kidney failure, unspecified; E11.42 Type 2 diabetes mellitus with diabetic polyneuropathy; E78.5 Hyperlipidemia, unspecified; L03.90 Cellulitis, unspecified; J90 Pleural effusion, not elsewhere classified; E66.01 Morbid (severe) obesity due to excess calories; Z68.37 Body mass index [BMI] 37.0-37.9, adult; Z95.828 Presence of other vascular implants and grafts; Z79.82 Long term (current) use of aspirin; Z79.01 Long term (current) use of anticoagulants; Z79.899 Other long term (current) drug therapy; Z88.0 Allergy status to penicillin; Z88.8 Allergy status to other drugs, medicaments and biological substances; Z89.431 Acquired absence of right foot; Z90.49 Acquired absence of other specified parts of digestive tract; Z98.890 Other specified postprocedural states; Z86.73 Personal history of transient ischemic attack (TIA), and cerebral infarction without residual deficits
CPT/HCPCS: 64415; 76942; 80053; 36821; J2250; J1644; J1100; J0690; J2405; J2001; J3010; J2795; J0330; J2704

== ENCOUNTER 2020-03-07 09:27 | Emergency (ER) | payer MEDICARE, OTHER ==
[2020-03-07 09:39] VITALS: RESP 18
[2020-03-07] MEDS ORDERED: ACETAMINOPHEN TAB 500 MG TAB PO STA (10:32)
--- NOTE | 2020-03-07 10:49 | ED ---
Upper Extremity HPI - General Source: patient Mode of arrival: ambulatory Limitations: no limitations <Noelle Ford - Last Filed: 03/08/20 10:37> <Kelsey Sifuentes - Last Filed: 03/08/20 13:19> - General Chief Complaint: Extremity Injury, Upper Stated Complaint: Fistula issue Time Seen by Provider: 03/07/20 10:04 - History of Present Illness Initial Comments: Patient is a 69-year-old female, history of renal disease, heart failure, diabetes, hypertension, presenting to the emergency Department with complaints of redness and pain around her left fistula. Patient states she had a fistula placed [address] Guo for dialysis. Patient states the next day she noticed increased pain and soreness to the area but then yesterday noticed a lot more redness. Patient is at [facility] and did speak with the covering doctor who started her on Keflex last night. She had one dose last night and one dose this morning. Patient denies any fever or chills, no nausea or vomiting. She states the redness is definitely increased since yesterday. She continues to have pain, soreness to her arm. She denies any numbness and tingling. She denies any chest pain, short of breath, cough. She has no further complaints at this time. Upon arrival to the ER, her vitals are stable. (Noelle Ford) - Related Data Home Medications Medication Instructions Recorded Confirmed Metoprolol Tartrate [Lopressor] 25 mg PO BID 03/09/18 03/07/20 Cholecalciferol [Vitamin D3 (25 3,000 unit PO DAILY 05/12/19 03/07/20 Mcg = 1000 Iu)] allopurinoL [Zyloprim] 100 mg PO HS 05/12/19 03/07/20 amLODIPine [Norvasc] 10 mg PO HS 07/29/19 03/07/20 Calcium Carbonate 1,000 mg PO Q8HR 11/20/19 03/07/20 Aranesp (Unknown Strength) 1 ml SQ FR PRN 03/07/20 03/07/20 Aspirin 81 mg PO DAILY 03/07/20 03/07/20 Cephalexin [Keflex] 500 mg PO BID@0800,2000 03/07/20 03/07/20 Previous Rx's Medication Instructions Recorded Acetaminophen Tab [Tylenol Tab] 500 mg PO Q6H PRN #1 tablet 01/01/20 Apixaban [Eliquis] 2.5 mg PO BID tablet 01/01/20 Furosemide [Lasix] 40 mg PO BID #0 01/01/20 Isosorbide Mononitrate ER [Imdur] 30 mg PO DAILY tab.er.24h 01/01/20 hydrALAZINE HCL [Apresoline] 50 mg PO TID tab 01/01/20 Cephalexin [Keflex] 500 mg PO Q6HR 5 Days #20 cap 03/07/20 Allergies Allergy/AdvReac Type Severity Reaction Status Date / Time Penicillins Allergy Severe Rash/Hives, Verified 03/07/20 13:07 Itching simvastatin [From Zocor] AdvReac Severe constipation, Verified 03/07/20 13:07 dry cough pregabalin [From Lyrica] AdvReac Unknown Verified 03/07/20 13:07 tide laundry detergent Allergy Itching Uncoded 03/07/20 13:07 Review of Systems ROS Other: All systems not noted in ROS Statement are negative. <Noelle Ford - Last Filed: 03/08/20 10:37> ROS Other: All systems not noted in ROS Statement are negative. <Kelsey Sifuentes - Last Filed: 03/08/20 13:19> ROS Statement: Those systems with pertinent positive or pertinent negative responses have been documented in the HPI. Past Medical History Past Medical History: Heart Failure, Diabetes Mellitus, Deep Vein Thrombosis (DVT), GERD/Reflux, Hyperlipidemia, Hypertension, Osteoarthritis (OA), Renal Disease, Seizure Disorder, Skin Disorder, Vascular Disorder Additional Past Medical History / Comment(s): 2018 respiratory failure with coma/trach/vent, NIDDM type II, neuropathy bilateral feet, DVT L leg, PVD, CKD stage III/has L arm AV fistula with past dialysis, chronic anemia, pt believes she has had gout, PVD, current wound L heel/toes, past decub coccyx/R buttock, cellulitis R leg, osteomylitis R foot/toes, constipation/diverticular disease, bilateral tinnitis, History of Any Multi-Drug Resistant Organisms: MRSA Date of last positivie culture/infection: 01/25/19 MDRO Source:: FOOT Past Surgical History: Appendectomy, Cholecystectomy, Orthopedic Surgery Additional Past Surgical History / Comment(s): 11/25/19 ligation branches L upper extremity fistula, 07/2019 L arm A/V fistula, partial amputation R 5th toe, bilateral cataracts/lens/RK, ovarian cystectomy. Past Anesthesia/Blood Transfusion Reactions: No Reported Reaction Additional Past Anesthesia/Blood Transfusion Reaction / Comment(s): clausterphobia Past Psychological History: No Psychological Hx Reported Smoking Status: Former smoker Past Alcohol Use History: None Reported Past Drug Use History: None Reported - Past Family History Father Additional Family Medical History / Comment(s): ALCOHOLIC Mother Family Medical History: Cancer, CVA/TIA, Diabetes Mellitus, Myocardial Infarction (OR) Additional Family Medical History / Comment(s): Colon cancer Brother(s) Additional Family Medical History / Comment(s): DRUG DEPENDENCY <Noelle Ford L - Last Filed: 03/08/20 10:37> General Exam Limitations: no limitations <Noelle Ford Lynn - Last Filed: 03/08/20 10:37> - General Exam Comments Initial Comments: GENERAL: Patient is well-developed and well-nourished. Patient is nontoxic and in no acute distress. HEAD: Atraumatic, normocephalic. EYES: Pupils equal round and reactive to light, extraocular movements intact, sclera anicteric, conjunctiva are normal. Eyelids were unremarkable. ENT: TMs normal, nares patent, oropharynx clear without exudates. Moist mucous membranes. NECK: Normal range of motion, supple without lymphadenopathy or JVD. LUNGS: Unlabored respirations. Breath sounds clear to auscultation bilaterally and equal. No wheezes rales or rhonchi. HEART: Regular rate and rhythm without murmurs, rubs or gallops. ABDOMEN: Soft, nontender, normoactive bowel sounds. No guarding, no rebound. No masses appreciated. : Deferred MUSCULOSKELETAL: Normal extremities with adequate strength and normal range of motion, no pitting or edema. No clubbing or cyanosis. Patient has a walking boot on the left lower extremity secondary to healing wound. This is chronic in nature, wound has been improving per patient. NEUROLOGICAL: Patient is alert and oriented x 3. Motor and sensory are also intact. Cranial nerves II through XII grossly intact. Symmetrical smile. Normal speech, normal gait. PSYCH: Normal mood, normal affect. SKIN: Warm, Dry, normal turgor. Patient has a left upper extremity fistula, there is erythema and warmth to the area as well as pain to palpation. Neurovascular intact. There is no active drainage at this time. (Noelle Ford) Course Vital Signs 03/07/20 03/07/20 09:37 11:20 Temperature 97.9 F 97.6 F Pulse Rate 62 68 Respiratory 18 18 Rate Blood Pressure 140/73 118/54 O2 Sat by Pulse 100 99 Oximetry Medical Decision Making - Lab Data Result diagrams: 03/07/20 11:23 03/07/20 11:23 <Noelle Ford - Last Filed: 03/08/20 10:37> - Lab Data Result diagrams: 03/07/20 11:23 03/07/20 11:23 <Kelsey Sifuentes - Last Filed: 03/08/20 13:19> - Medical Decision Making Patient is a 69-year-old female here for pain, redness around her fistula site that was placed [address] Guo. She's had no fevers, no chills. Her vital signs are stable upon arrival. Patient's white count is normal, lactic acid is 1.0. CRP is 16, ESR is 48. I did discuss this case with Dr. Guo who is okay with patient going home, continuing on Keflex, I will give her 1 g of Rocephin IV before discharge. She feels this could be more of a hematoma rather than an infection already starting. She will then follow up with Dr. Guo in the office. Patient is in agreement with this plan of care. She is stable for discharge. Return parameters were discussed with the patient she verbalized understanding. Case discussed with Dr. Sifuentes. (Noelle Ford) I was available for consultation in the emergency department. The history and physical exam were done by the midlevel provider. I was consulted for this patients care. I reviewed the case with the midlevel provider and based on their presentation of the patient, I agree with the assessment, medical decision making and plan of care as documented. Chart was dictated using Panther [employer] dictation software. Attempts were made to correct any dictation errors however some typographical errors may persist. Patient was seen during a national state of emergency due to the Covid-19 pandemic. (Kelsey Sifuentes) - Lab Data Lab Results 03/07/20 03/07/20 03/07/20 Range/Units 11:16 11:23 11:23 WBC 8.7 (3.8-10.6) k/uL RBC 3.57 L (3.80-5.40) m/uL Hgb 10.3 L (11.4-16.0) gm/dL Hct 31.3 L (34.0-46.0) % MCV 87.7 D (80.0-100.0) fL MCH 28.9 (25.0-35.0) pg MCHC 32.9 (31.0-37.0) g/dL RDW 13.6 (11.5-15.5) % Plt Count 155 (150-450) k/uL MPV 7.8 Neutrophils % 82 % Lymphocytes % 9 % Monocytes % 4 % Eosinophils % 5 % Basophils % 0 % Neutrophils # 7.1 (1.3-7.7) k/uL Lymphocytes # 0.8 L (1.0-4.8) k/uL Monocytes # 0.4 (0-1.0) k/uL Eosinophils # 0.4 (0-0.7) k/uL Basophils # 0.0 (0-0.2) k/uL ESR Cancelled Sodium 136 L (137-145) mmol/L Potassium 3.8 (3.5-5.1) mmol/L Chloride 100 (98-107) mmol/L Carbon Dioxide 27 (22-30) mmol/L Anion Gap 9 mmol/L BUN 67 H (7-17) mg/dL Creatinine 4.83 H (0.52-1.04) mg/dL Est GFR (CKD-EPI)AfAm 10 (>60 ml/min/1.73 sqM) Est GFR (CKD-EPI)NonAf 9 (>60 ml/min/1.73 sqM) Glucose 250 H (74-99) mg/dL Plasma Lactic Acid Jamar 1.0 (0.7-2.0) mmol/L Calcium 8.6 (8.4-10.2) mg/dL Total Bilirubin 0.3 (0.2-1.3) mg/dL AST 16 (14-36) U/L ALT 6 (4-34) U/L Alkaline Phosphatase 58 (38-126) U/L C-Reactive Protein 16.3 H (<10.0) mg/L Total Protein 6.1 L (6.3-8.2) g/dL Albumin 3.1 L (3.5-5.0) g/dL 03/07/20 Range/Units 12:30 WBC (3.8-10.6) k/uL RBC (3.80-5.40) m/uL Hgb (11.4-16.0) gm/dL Hct (34.0-46.0) % MCV (80.0-100.0) fL MCH (25.0-35.0) pg MCHC (31.0-37.0) g/dL RDW (11.5-15.5) % Plt Count (150-450) k/uL MPV Neutrophils % % Lymphocytes % % Monocytes % % Eosinophils % % Basophils % % Neutrophils # (1.3-7.7) k/uL Lymphocytes # (1.0-4.8) k/uL Monocytes # (0-1.0) k/uL Eosinophils # (0-0.7) k/uL Basophils # (0-0.2) k/uL ESR 48 H Sodium (137-145) mmol/L Potassium (3.5-5.1) mmol/L Chloride (98-107) mmol/L Carbon Dioxide (22-30) mmol/L Anion Gap mmol/L BUN (7-17) mg/dL Creatinine (0.52-1.04) mg/dL Est GFR (CKD-EPI)AfAm (>60 ml/min/1.73 sqM) Est GFR (CKD-EPI)NonAf (>60 ml/min/1.73 sqM) Glucose (74-99) mg/dL Plasma Lactic Acid Jamar (0.7-2.0) mmol/L Calcium (8.4-10.2) mg/dL Total Bilirubin (0.2-1.3) mg/dL AST (14-36) U/L ALT (4-34) U/L Alkaline Phosphatase (38-126) U/L C-Reactive Protein (<10.0) mg/L Total Protein (6.3-8.2) g/dL Albumin (3.5-5.0) g/dL Disposition Is patient prescribed a controlled substance at d/c from ED?: No <Noelle Ford - Last Filed: 03/08/20 10:37> <Kelsey Sifuentes - Last Filed: 03/08/20 13:19> Clinical Impression: Left arm pain, Left arm cellulitis Disposition: HOME SELF-CARE Condition: Stable Instructions (If sedation given, give patient instructions): Cellulitis (ED) Additional Instructions: Please return to the Emergency Department if symptoms worsen or any other concerns. Continue with Keflex, 4 times daily as prescribed. Follow-up with Dr. Guo as discussed. Prescriptions: Cephalexin [Keflex] 500 mg PO Q6HR 5 Days #20 cap Referrals: Dav Roldan DO [Primary Care Provider] - 1-2 days Alea Guo DO [STAFF PHYSICIAN] - 1-2 days
[2020-03-07 11:22] VITALS: BP 118/54; PULSE 68; TEMP 97.6
[2020-03-07 11:48] LABS: Basophils % (A) 0 %; Eosinophils # (A) 0.4 k/uL (0-0.7); Eosinophils % (A) 5 %; HCT 31.3 % (34.0-46.0); HGB 10.3 gm/dL (11.4-16.0); Lymphocytes # (A) 0.8 k/uL (1.0-4.8); Lymphocytes % (A) 9 %; MCH 28.9 pg (25.0-35.0); MCHC 32.9 g/dL (31.0-37.0); Mean Platelet Volume 7.8; Monocytes # (A) 0.4 k/uL (0-1.0); Monocytes % (A) 4 %; Neutrophils # (A) 7.1 k/uL (1.3-7.7); Neutrophils % (A) 82 %; Platelet Count 155 k/uL (150-450); RBC 3.57 m/uL (3.80-5.40); RDW 13.6 % (11.5-15.5); WBC 8.7 k/uL (3.8-10.6)
[2020-03-07 12:08] LABS: Albumin 3.1 g/dL (3.5-5.0); C Reactive Protein 16.3 mg/L (<10.0); Calcium 8.6 mg/dL (8.4-10.2); Potassium 3.8 mmol/L (3.5-5.1); Total Bilirubin 0.3 mg/dL (0.2-1.3); Total Protein 6.1 g/dL (6.3-8.2)
[2020-03-07 12:13] LABS: MCV 87.7 fL (80.0-100.0)
[2020-03-07] MEDS ORDERED: cefTRIAXone IN SWFI 1,000 MG/10 ML SYRINGE IVP STA (12:42)
== END 2020-03-07 13:28 | disposition home or self-care (01) ==
LOC: EC 09:27
DX: L03.114 Cellulitis of left upper limb (principal); I13.0 Hypertensive heart and chronic kidney disease with heart failure and stage 1 through stage 4 chronic kidney disease, or unspecified chronic kidney disease; N18.30 Chronic kidney disease, stage 3 unspecified; I50.9 Heart failure, unspecified; K21.9 Gastro-esophageal reflux disease without esophagitis; M19.90 Unspecified osteoarthritis, unspecified site; D63.1 Anemia in chronic kidney disease; Z79.82 Long term (current) use of aspirin; Z79.899 Other long term (current) drug therapy; Z88.0 Allergy status to penicillin; Z88.8 Allergy status to other drugs, medicaments and biological substances; Z91.048 Other nonmedicinal substance allergy status; Z86.14 Personal history of Methicillin resistant Staphylococcus aureus infection; Z86.718 Personal history of other venous thrombosis and embolism; Z87.891 Personal history of nicotine dependence
CPT/HCPCS: 36415; 80053; 85652; 83605; 85025; 86140; 87040; 99283; 96374; J0696

== ENCOUNTER 2020-04-15 06:30 | Day surgery (SDC) | payer MEDICARE, OTHER ==
[2020-04-13 11:22] VITALS: BMI 37.7
[2020-04-15 07:46] LABS: Glucose,Whole Blood 203 mg/dL (75-99)
[2020-04-15] MEDS ORDERED: SODIUM CHLORIDE 0.9% 1,000 ML IV ONE (07:59)
[2020-04-15] MEDS: ONDANSETRON 4 MG/2 ML VIAL ONE ×2 (08:08→13:00)
[2020-04-15] MEDS ORDERED: INSULIN ASPART (NovoLOG) 100 UNIT/ML VIAL SQ ONE (08:09)
[2020-04-15] MEDS ORDERED: MIDAZOLAM 2 MG/2 ML VIAL IVP ONE (08:12)
[2020-04-15] MEDS ORDERED: ROCURONIUM 10 MG/ML (10 ML VIAL) IV ONE (08:37)
[2020-04-15] MEDS ORDERED: LIDOCAINE 1% INJ 10MG/ML (20 ML MDV) ONE (08:37)
[2020-04-15] MEDS ORDERED: ROPIVACAINE 5 MG/ML 30 ML VIAL ONE (08:37)
[2020-04-15] MEDS ORDERED: fentaNYL (PF) 50 MCG/ML 2 ML AMP ONE (08:37)
[2020-04-15] MEDS ORDERED: SUCCINYLCHOLINE CHLORIDE 100 MG/5 ML SYR IV ONE (08:37)
[2020-04-15] MEDS ORDERED: PROPOFOL 10 MG/ML 20 ML VIAL IV ONE (08:37)
[2020-04-15] MEDS ORDERED: HEPARIN SODIUM,PORCINE 5,000 UNIT/ML 1 ML VIAL ONE (08:37)
[2020-04-15] MEDS ORDERED: ePHEDrine SULFATE/0.9% NACL/PF 50 MG/5 ML SYRINGE IV ONE (08:37)
--- NOTE | 2020-04-15 09:07 | P.ANPRN ---
Procedure Note - Anesthesia - Nerve Block Performed Left Supraclavicular Single Time Out Performed: Yes Date of Procedure: 04/15/20 Procedure Start Time: 08:11 Procedure Stop Time: 08:19 Location of Patient: PreOp Indication: Acute Post-Operative Pain, Requested by Surgeon Sedation Type: Sedate with meaningful contact maintained Preparation: Sterile Prep, Sterile Dressing Position: Sitting Catheter: None Needle Types: On-Q Needle Gauge: 20 Ultrasound used to visualize needle placement: Yes Ultrasound used to observe medication spread: Yes Injectate: 0.5% Ropivacaine (see comment for volume) (30 ml) Blood Aspirated: No Pain Paresthesia on Injection Noted: No Resistance on Injection: Normal
[2020-04-15] MEDS ORDERED: LIDOCAINE 1% INJ 10MG/ML (20 ML MDV) SQ ONE (09:23)
[2020-04-15] MEDS ORDERED: ceFAZolin 2,000 MG in SODIUM CHLORIDE 0.9% 500 ML 500 ML IRRIGATION ONE (09:23)
[2020-04-15] MEDS ORDERED: HEPARIN SODIUM,PORCINE 2,000 UNIT in SODIUM CHLORIDE 0.9% 500 ML 500 ML IRRIGATION ONE (09:23)
[2020-04-15] MEDS ORDERED: BUPIVACAINE (PF) 0.5% 30 ML VIAL SQ ONE (09:23)
[2020-04-15] MEDS ORDERED: HYDROcodone/APAP 5-325MG 1 EACH TAB PO PRN ×2 (13:05)
[2020-04-15] MEDS ORDERED: NALOXONE 0.4 MG/ML 1 ML VIAL IV PRN (13:05)
[2020-04-15] MEDS ORDERED: ONDANSETRON 4 MG/2 ML VIAL IVP PRN (13:05)
--- NOTE | 2020-04-15 13:08 | P.OP ---
Date of Procedure: 04/15/20 Description of Procedure: Preoperative diagnosis: [End-stage renal disease, previous brachial basilic fistula creation stage I Surgeon: Alea Guo D.O. EBL: [ and 50 mL ] IV fluids: [ see records ] Urine output: [ none measured ] Drains: [ none] Complications: [None immediately.] Condition: [ Stable to recovery] Operative indication and findings: [ the patient is a 69-year-old female with end-stage renal disease who previously underwent a brachiocephalic fistula creation that failed. She was found to have areas of adequately sized basilic vein and a first stage procedure was performed. After 4 weeks ultrasound was performed revealing at least 4-6 mm vein throughout, there were significant ar eas of tortuosity and multiple branches along with notable valves. It was decided she would benefit from an attempted basilic vein transposition. Risks and benefits were discussed, she seemingly understood and was willing to proceed as such. ] Procedure in detail: [ the patient was taken to the operative suite and placed in supine position. The left upper extremity was prepped and draped in usual sterile fashion. A preprocedure timeout was performed, all parties were in agreement. The ultrasound was utilized in the basilic vein was followed from the level of the anastomosis or proximally. There were multiple areas of branches. An incision was made longitudinally in the arm and into a curvilinear incision over the antecubital fossa. This is carried down through the scar tissue and fatty tissue. The patient significant amount of fat and dense adherence to the entirety of the vein itself. The basilic vein was identified and carried back proximally towards the anastomosis as previously created. It was encircled. Further dissection was carried out proximally. There was a large branch that did calm very superficially it was ligated with silk ties. The vein was then followed further and incision was enlarged proximally. And carried down through the subcutaneous fat . The basilic vein was identified and did relatively quickly dive back into the brachial vein just shy of the axilla. Once it was dissected clear, all further branches were ligated with silk and clips. A proposed tunnel was marked and the tunneler was placed. The vein was marked and at that point it was transected from its proximal position as closely to the anastomosis as possible. The stump was oversewn with 5-0 Prolene. The vein was flushed. It was tunneled through the position with care to leave the marked line anteriorly. It was flushed once more after being brought through the tunnel ended flushed easily without any evidence of twisting. A bulldog clamp was placed proximally. The patient was heparinized. The previously dissected brachial artery was encircled proximally and distally and flow was occluded. An arteriotomy was made. Anastomosis with a 6-0 Prolene was performed. Prior to completion of the anastomosis the artery was allowed to backbleed through the graft and then the proximal flow was opened and sent through the graft the flow was then reconstituted through the artery. There was good flow through the fistula with multiphasic sounds throughout as well as distally in the upper axillary area. The patient maintained a palpable radial pulse. There is copiously irrigated with antibiotic saline and 3-0 Vicryl deep dermal sutures were placed. The skin was then closed with running 4-0 Monocryl. Dressings were placed. The patient was allowed awaken from anesthesia and transferred to recovery in stable condition having tolerated the procedure well.] Plan - Discharge Summary Discharge Rx Participant: Yes New Discharge Prescriptions: New HYDROcodone/APAP 5-325MG [Wilder 5-325] 1 tab PO Q4HR PRN 3 Days #18 tab PRN Reason: Pain No Action Metoprolol Tartrate [Lopressor] 25 mg PO BID allopurinoL [Zyloprim] 100 mg PO HS Cholecalciferol [Vitamin D3 (25 Mcg = 1000 Iu)] 3,000 unit PO DAILY amLODIPine [Norvasc] 10 mg PO HS Calcium Carbonate 1,000 mg PO BID hydrALAZINE HCL [Apresoline] 50 mg PO TID tab Apixaban [Eliquis] 2.5 mg PO BID tablet Isosorbide Mononitrate ER [Imdur] 30 mg PO DAILY tab.er.24h Acetaminophen Tab [Tylenol Tab] 500 mg PO Q6H PRN #1 tablet PRN Reason: Pain Furosemide [Lasix] 40 mg PO BID #0 Aspirin 81 mg PO DAILY Calcium Carbonate 500 mg PO BID Atorvastatin Calcium [Lipitor] 10 mg PO HS Clotrimazole/Betamethasone Dip [Lotrisone Cream] 1 applic TOPICAL BID Discharge Medication List Metoprolol Tartrate [Lopressor] 25 mg PO BID 03/09/18 [History] Cholecalciferol [Vitamin D3 (25 Mcg = 1000 Iu)] 3,000 unit PO DAILY 05/12/19 [History] allopurinoL [Zyloprim] 100 mg PO HS 05/12/19 [History] amLODIPine [Norvasc] 10 mg PO HS 07/29/19 [History] Calcium Carbonate 1,000 mg PO BID 11/20/19 [History] Acetaminophen Tab [Tylenol Tab] 500 mg PO Q6H PRN #1 tablet 01/01/20 [Rx] Apixaban [Eliquis] 2.5 mg PO BID tablet 01/01/20 [Rx] Furosemide [Lasix] 40 mg PO BID #0 01/01/20 [Rx] Isosorbide Mononitrate ER [Imdur] 30 mg PO DAILY tab.er.24h 01/01/20 [Rx] hydrALAZINE HCL [Apresoline] 50 mg PO TID tab 01/01/20 [Rx] Aspirin 81 mg PO DAILY 03/07/20 [History] Atorvastatin Calcium [Lipitor] 10 mg PO HS 04/13/20 [History] Calcium Carbonate 500 mg PO BID 04/13/20 [History] Clotrimazole/Betamethasone Dip [Lotrisone Cream] 1 applic TOPICAL BID 04/13/20 [History] HYDROcodone/APAP 5-325MG [Wilder 5-325] 1 tab PO Q4HR PRN 3 Days #18 tab 04/15/20 [Rx] Follow up Appointment(s)/Referral(s): Alea Guo DO [STAFF PHYSICIAN] - 2 Weeks Activity/Diet/Wound Care/Special Instructions: Resume regular activity tomorrow. no soaking wound. change dressing daily. resume home meds upon discharge
[2020-04-15 13:10] LABS: Glucose,Whole Blood 129 mg/dL (75-99)
[2020-04-15 17:17] LABS: Glucose,Whole Blood 135 mg/dL (75-99)
[2020-04-15] MEDS: SODIUM CHLORIDE 0.9% 1,000 ML IV SCH ×2 (19:29→23:32)
[2020-04-15 20:49] LABS: Glucose,Whole Blood 178 mg/dL (75-99)
[2020-04-15] MEDS ORDERED: allopurinoL 100 MG TAB PO SCH (21:00)
[2020-04-15] MEDS ORDERED: ATORVASTATIN 10 MG TAB PO SCH (21:00)
[2020-04-15] MEDS ORDERED: amLODIPine 10 MG TAB PO SCH (21:00)
[2020-04-15] MEDS: CALCIUM CARBONATE 500 MG CHEWABLE PO SCH ×2 (21:10→21:13)
[2020-04-15] MEDS: METOPROLOL TARTRATE 25 MG TAB PO SCH (21:10)
[2020-04-15] MEDS: HEPARIN SODIUM,PORCINE 5,000 UNIT/ML 1 ML VIAL SQ SCH (21:10)
[2020-04-15] MEDS: hydrALAZINE HCL 50 MG TAB PO SCH (21:10)
[2020-04-16 03:16] VITALS: RESP 16
[2020-04-16 07:08] LABS: Glucose,Whole Blood 148 mg/dL (75-99)
[2020-04-16 08:11] VITALS: TEMP 98.4
[2020-04-16] MEDS: HEPARIN SODIUM,PORCINE 5,000 UNIT/ML 1 ML VIAL SQ SCH (09:00)
[2020-04-16] MEDS ORDERED: CHOLECALCIFEROL 25 MCG (1000 IU) TABLET PO SCH (09:00)
[2020-04-16] MEDS: METOPROLOL TARTRATE 25 MG TAB PO SCH (09:00)
[2020-04-16] MEDS: CALCIUM CARBONATE 500 MG CHEWABLE PO SCH (09:00)
[2020-04-16] MEDS: hydrALAZINE HCL 50 MG TAB PO SCH ×2 (09:00→16:18)
[2020-04-16] MEDS ORDERED: ISOSORBIDE MONONITRATE ER 30 MG TAB.ER.24H PO SCH (09:00)
[2020-04-16] MEDS ORDERED: ACETAMINOPHEN TAB 325 MG TAB PO PRN (09:12)
--- NOTE | 2020-04-16 10:27 | P.NPCON ---
History of Present Illness - Reason for Consult Consult date: 04/16/20 end stage renal disease - Chief Complaint ESRD on dialysis Saturday - History of Present Illness This is a 69-year-old female admitted for a left upper arm fistula insertion which was performed yesterday. She is on hemodialysis on Saturday schedule, 3-1/2 hours. Dialysis was started approximately January 2020 per the patient. Currently she is being dialyzed with a permacath on the right side She is known with diabetes, hypertension hyperlipidemia seizure disorder history of DVT, previous history of osteomyelitis diverticulosis and previously has had partial amputation of some of her toes. She lives in a senior living. Past Medical History Past Medical History: Heart Failure, Diabetes Mellitus, Deep Vein Thrombosis (DVT), GERD/Reflux, Hyperlipidemia, Hypertension, Osteoarthritis (OA), Renal Disease, Skin Disorder, Vascular Disorder Additional Past Medical History / Comment(s): Dialysis /. 2017 respiratory failure with coma/trach/vent, neuropathy bilateral feet, DVT L leg, PVD, CKD stage III/has L arm AV fistula with dialysis, chronic anemia, gout, PVD, current wound L heel/toes/mid foot, past decub coccyx/R buttock, cellulitis R leg, osteomylitis R foot/toes, constipation/diverticular disease, bilateral tinnitis, muscle weakness and chronic pain. History of Any Multi-Drug Resistant Organisms: MRSA Date of last positivie culture/infection: 01/25/19 MDRO Source:: FOOT Past Surgical History: Appendectomy, Cholecystectomy, Orthopedic Surgery Additional Past Surgical History / Comment(s): 11/25/19 ligation branches L upper extremity fistula, 07/2019 L arm A/V fistula, partial amputation R 5th/3rd toe, bilateral cataracts/lens/RK, ovarian cystectomy, left upper extremity 1st Stage Vein procedure. Fistula procedure done on 04/15/20. Past Anesthesia/Blood Transfusion Reactions: No Reported Reaction Additional Past Anesthesia/Blood Transfusion Reaction / Comment(s): Clausterphobia Past Psychological History: Anxiety, Depression Additional Psychological History / Comment(s): [facility]. She states when feeling well, she can transfer self to wheelchair. She is occasionally incontinent of urine. She doesn't have a history of alcohol use. 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 No international travel. no experience. Has her pet cat, Guille was given away when she lost her apt. Has her pet cat, Guille was given away when she lost her apt. Smoking Status: Former smoker Past Alcohol Use History: None Reported Additional Past Alcohol Use History / Comment(s): Started smoking age 20 (1970) and quit 1990, smoked 1 ppd. Past Drug Use History: None Reported Additional Drug Use History / Comment(s): denies use - Past Family History Father Additional Family Medical History / Comment(s): ALCOHOLIC Mother Family Medical History: Cancer, CVA/TIA, Diabetes Mellitus, Myocardial Infarction (DC) Additional Family Medical History / Comment(s): Colon cancer. Brother(s) Additional Family Medical History / Comment(s): DRUG DEPENDENCY Medications and Allergies Home Medications Medication Instructions Recorded Confirmed Type Metoprolol Tartrate [Lopressor] 25 mg PO BID 03/09/18 04/13/20 History Cholecalciferol [Vitamin D3 (25 3,000 unit PO DAILY 05/12/19 04/13/20 History Mcg = 1000 Iu)] allopurinoL [Zyloprim] 100 mg PO HS 05/12/19 04/13/20 History amLODIPine [Norvasc] 10 mg PO HS 07/29/19 04/13/20 History Calcium Carbonate 1,000 mg PO BID 11/20/19 04/13/20 History Acetaminophen Tab [Tylenol Tab] 500 mg PO Q6H PRN #1 tablet 01/01/20 04/15/20 Rx Apixaban [Eliquis] 2.5 mg PO BID tablet 01/01/20 04/13/20 Rx Furosemide [Lasix] 40 mg PO BID #0 01/01/20 04/13/20 Rx Isosorbide Mononitrate ER [Imdur] 30 mg PO DAILY tab.er.24h 01/01/20 04/13/20 Rx hydrALAZINE HCL [Apresoline] 50 mg PO TID tab 01/01/20 04/13/20 Rx Aspirin 81 mg PO DAILY 03/07/20 04/13/20 History Atorvastatin Calcium [Lipitor] 10 mg PO HS 04/13/20 04/13/20 History Calcium Carbonate 500 mg PO BID 04/13/20 04/13/20 History Clotrimazole/Betamethasone Dip 1 applic TOPICAL BID 04/13/20 04/13/20 History [Lotrisone Cream] HYDROcodone/APAP 5-325MG [Mcdonough 1 tab PO Q4HR PRN 3 Days #18 tab 04/15/20 Rx 5-325] Allergies Allergy/AdvReac Type Severity Reaction Status Date / Time Penicillins Allergy Severe Rash/Hives, Verified 04/15/20 07:30 Itching simvastatin [From Zocor] AdvReac Severe constipation, Verified 04/15/20 07:30 dry cough pregabalin [From Lyrica] AdvReac Unknown Verified 04/15/20 07:30 tide laundry detergent Allergy Itching Uncoded 04/15/20 07:30 Physical Exam Vitals: Vital Signs Temp Pulse Pulse Pulse Resp BP Pulse Ox 04/16/20 08:00 98.4 F 67 16 119/64 96 04/16/20 02:30 98.6 F 75 16 118/48 94 L 04/15/20 20:05 63 18 04/15/20 18:52 97.6 F 63 18 110/64 99 04/15/20 16:30 59 L 93 L 04/15/20 16:15 53 L 116/68 96 04/15/20 16:00 58 L 99/62 95 04/15/20 15:45 61 108/44 93 L 04/15/20 15:30 63 106/62 92 L 04/15/20 15:15 60 102/63 95 04/15/20 15:00 61 102/62 93 L 04/15/20 14:45 55 L 105/62 93 L 04/15/20 14:30 97.7 F 54 L 105/63 96 04/15/20 14:02 58 L 16 138/63 95 04/15/20 13:45 56 L 16 142/63 97 04/15/20 13:32 56 L 16 146/60 97 04/15/20 13:17 57 L 16 170/72 97 04/15/20 13:00 55 L 16 148/70 97 04/15/20 12:50 99 F 60 16 157/72 97 Intake and Output 04/15/20 04/16/20 04/16/20 22:59 06:59 14:59 Other: # Voids 3 # Bowel Movements 2 On examination is awake alert oriented comfortable HEENT exam no JVP neck is supple no facial asymmetry Lungs clear to auscultation good air entry bilaterally Heart sounds are unremarkable for any murmur rub gallop Abdomen soft nontender no masses felt Extremity exam was no edema Neurologically awake alert oriented but generalized weakness She has dressing on her left upper arm a could not hear them bruit over the fistula site she has a thick bandage Results - Lab Results 04/15/20 07:56 Assessment and Plan Plan: Impression 1. ESRD on dialysis Saturday with a permacath on the right. 2. Admitted for fistula surgery on the left upper arm which was performed yeste rday 04/15/2020 3. History of diabetes mellitus 4- senior living resident 5. History of DVT, osteomyelitis in the past, and partial amputation of some of her toes Recommendation 1. Will dialyze her today and she'll be discharged after that 5
[2020-04-16 11:50] LABS: Glucose,Whole Blood 204 mg/dL (75-99)
[2020-04-16] MEDS: SODIUM CHLORIDE 0.9% 1,000 ML IV SCH (16:18)
[2020-04-16 16:43] LABS: Glucose,Whole Blood 113 mg/dL (75-99)
[2020-04-16] MEDS ORDERED: FUROSEMIDE 40 MG TAB PO SCH (17:00)
[2020-04-16 18:17] VITALS: BP 147/72; PULSE 61
== END 2020-04-16 18:50 ==
LOC: OR 06:30 → 4SSUR 14:03 → OR 04-16 18:50
PROVIDERS: ATTEND Surgery
DX: T82.898A Other specified complication of vascular prosthetic devices, implants and grafts, initial encounter (principal); I13.0 Hypertensive heart and chronic kidney disease with heart failure and stage 1 through stage 4 chronic kidney disease, or unspecified chronic kidney disease; N18.9 Chronic kidney disease, unspecified; I50.9 Heart failure, unspecified; D63.1 Anemia in chronic kidney disease; Z99.2 Dependence on renal dialysis; E11.22 Type 2 diabetes mellitus with diabetic chronic kidney disease; E11.51 Type 2 diabetes mellitus with diabetic peripheral angiopathy without gangrene; L03.90 Cellulitis, unspecified; N18.6 End stage renal disease; Z79.82 Long term (current) use of aspirin; Z79.899 Other long term (current) drug therapy; Z88.0 Allergy status to penicillin; Z88.8 Allergy status to other drugs, medicaments and biological substances; E78.5 Hyperlipidemia, unspecified; E66.01 Morbid (severe) obesity due to excess calories; Z68.36 Body mass index [BMI] 36.0-36.9, adult; J90 Pleural effusion, not elsewhere classified; Z89.431 Acquired absence of right foot; Z90.49 Acquired absence of other specified parts of digestive tract; Z98.890 Other specified postprocedural states; G40.909 Epilepsy, unspecified, not intractable, without status epilepticus; Z86.718 Personal history of other venous thrombosis and embolism; K21.9 Gastro-esophageal reflux disease without esophagitis; M19.90 Unspecified osteoarthritis, unspecified site; E11.42 Type 2 diabetes mellitus with diabetic polyneuropathy; M10.9 Gout, unspecified; H93.13 Tinnitus, bilateral; G89.29 Other chronic pain; M62.81 Muscle weakness (generalized); Z86.14 Personal history of Methicillin resistant Staphylococcus aureus infection; F40.240 Claustrophobia; K59.00 Constipation, unspecified; K57.90 Diverticulosis of intestine, part unspecified, without perforation or abscess without bleeding; F41.9 Anxiety disorder, unspecified; F32.9 Major depressive disorder, single episode, unspecified; Z98.42 Cataract extraction status, left eye; Z98.41 Cataract extraction status, right eye; R32 Unspecified urinary incontinence; Z87.891 Personal history of nicotine dependence; Z81.1 Family history of alcohol abuse and dependence; Z83.3 Family history of diabetes mellitus; Z82.49 Family history of ischemic heart disease and other diseases of the circulatory system; Z82.3 Family history of stroke; Z80.0 Family history of malignant neoplasm of digestive organs; Z81.3 Family history of other psychoactive substance abuse and dependence; Z79.01 Long term (current) use of anticoagulants; Z91.048 Other nonmedicinal substance allergy status; Z79.891 Long term (current) use of opiate analgesic
CPT/HCPCS: 64415; 76942; 84132; 36819; J2250; J1644; J0690 ×2; J2405; J2001; J3010; J2795; J0330; J2704

== ENCOUNTER 2020-12-29 09:00 | Day surgery (SDC) | payer MEDICARE, OTHER ==
[2020-12-28 13:27] VITALS: BMI 40.1
[2020-12-29 07:20] VITALS: TEMP 98.2
[2020-12-29 07:46] LABS: Basophils % (A) 0 %; Eosinophils # (A) 0.2 k/uL (0-0.7); Eosinophils % (A) 3 %; HCT 35.7 % (34.0-46.0); HGB 11.7 gm/dL (11.4-16.0); Lymphocytes # (A) 0.9 k/uL (1.0-4.8); Lymphocytes % (A) 15 %; MCH 30.7 pg (25.0-35.0); MCHC 32.8 g/dL (31.0-37.0); MCV 93.5 fL (80.0-100.0); Mean Platelet Volume 8.2; Monocytes # (A) 0.3 k/uL (0-1.0); Monocytes % (A) 5 %; Neutrophils # (A) 4.9 k/uL (1.3-7.7); Neutrophils % (A) 75 %; Platelet Count 167 k/uL (150-450); RBC 3.82 m/uL (3.80-5.40); RDW 15.1 % (11.5-15.5); WBC 6.4 k/uL (3.8-10.6)
[2020-12-29 07:51] LABS: Calcium 8.7 mg/dL (8.4-10.2)
[~2020-12-29 09:00] MED LIST changes: -BUPIVACAINE (PF) 0.5% 30 ML VIAL SQ ONE; -DEXAMETHASONE SOD PHOSPHATE 4 MG/ML 1 ML VIAL ONE; -GELATIN SPONGE,ABSORB (LARGE) 1 EACH SPONGE TOPICAL ONE; -HYDROmorphone 0.5 MG/0.5 ML SYRINGE IVP PRN; -LIDOCAINE 1% INJ 10MG/ML (20 ML MDV) ONE; +MIDAZOLAM 2 MG/2 ML VIAL IV ONE; -MIDAZOLAM 2 MG/2 ML VIAL IV PRN; +PHENYLEPHRINE-0.9% NACL SYG 1,000 MCG/10 ML SYRINGE ONE; -SODIUM CHLORIDE 0.9% 1,000 ML IV ONE; +SODIUM CHLORIDE 0.9% 500 ML 500 ML IV ONE; -SUCCINYLCHOLINE CHLORIDE 100 MG/5 ML SYR IV ONE; -THROMBIN (BOVINE) 5,000 UNIT VIAL TOPICAL ONE; +fentaNYL (PF) 50 MCG/ML 2 ML AMP IV PRN
[2020-12-29] MEDS ORDERED: GELATIN SPONGE,ABSORB (LARGE) 1 EACH SPONGE TOPICAL ONE (09:18)
[2020-12-29] MEDS ORDERED: THROMBIN (BOVINE) 5,000 UNIT VIAL TOPICAL ONE (09:18)
--- NOTE | 2020-12-29 10:45 | P.OP ---
Date of Procedure: 12/29/20 Description of Procedure: Preoperative diagnosis: [End-stage renal disease, need for dialysis access] Postoperative diagnosis: Same Procedure: [Right upper extremity loop forearm graft] Surgeon: Alea Guo D.O. Anesthesia: Regional block with sedation AsstMonserrat Cheng Javon EBL: 25 mL[] IV fluids: [See records] Urine output: [Not measured] Drains: [None] Complications: [None immediately apparent] Condition: [Stable to recovery] Operative indication and findings: [Patient is a 70-year-old female who has had multiple attempts at access creation in her left upper extremity which have failed. Her most recent appears well on ultrasound imaging but they aren't able to continually access therefore recommended she undergo right upper extremity creation. Preoperative vein mapping showed borderline size into the veins for fistula creation and given the difficulties of the same size veins on the previ ous side it was decided to go forward first with a loop forearm graft.] Procedure in detail: [The patient was taken to the operative suite and placed in supine position. The right upper extremity was prepped and draped in usual sterile fashion. A preprocedure timeout was performed, all parties were in agreement. Just distal to the antecubital fossa a transverse incision was made over the area of the brachial pulse. Left cautery was used to dissected through the subcutaneous fat and down to the level of the fascia which was opened to reveal the healthy-appearing brachial artery. The median cubital vein was identified there were 4 branches coming from this and converging to it in this area therefore they were all encircled with vessel loop. All the vessels from this were small in nature, so it was decided to maintain them all to allow for increased outflow. The proximal and distal portions of the brachial artery were encircled. That point a 4 x 7 PTFE graft was tunneled through a counterincision in the distal forearm. The patient was then heparinized. Flow was occluded through the brachial artery and an arteriotomy is made with 11 blade and enlarged with a Braun scissors. Stay sutures of 6-0 silk were placed. The graft was cut to size and an anastomosis was created with 6-0 Prolene. The anastomosis was completed and arterial flow was flushed through the graft and then released to the hand. Hemostasis was obtained with thrombin and Gelfoam. Attention was then turned towards the vein. A venotomy was created and enlarged with the Braun scissors. The graft Was cut to size and a venous anastomosis was created using Prolene. Prior to completion, it was flushed. Flow was then allowed to resume through the graft into the venous outflow tract. Hemostasis was obtained with thrombin and Gelfoam. A Doppler was utilized showing multiphasic flow proximally and distally to the anastomosis and up through the venous outflow. There maintained a palpable radial pulse. The areas were then copiously irrigated with antibiotic solution. Hemostasis was ensured. The deep dermal tissues were then reapproximated with interrupted sutures of 3-0 Vicryl. The skin was reapproximated with running 4-0 Monocryl. Skin glue was placed and a light compression wrap. The patient was allowed awaken from anesthesia and transferred to recovery in stable condition having tolerated her procedure well.] Plan - Discharge Summary Discharge Rx Participant: No New Discharge Prescriptions: No Action Metoprolol Tartrate [Lopressor] 25 mg PO BID allopurinoL [Zyloprim] 100 mg PO HS Cholecalciferol [Vitamin D3 (25 Mcg = 1000 Iu)] 3,000 unit PO DAILY Apixaban [Eliquis] 2.5 mg PO BID tablet Isosorbide Mononitrate ER [Imdur] 30 mg PO DAILY tab.er.24h Acetaminophen Tab [Tylenol Tab] 500 mg PO Q6H PRN #1 tablet PRN Reason: Pain Furosemide [Lasix] 40 mg PO BID #0 Aspirin 81 mg PO DAILY Atorvastatin Calcium [Lipitor] 10 mg PO HS Insulin Aspart Scale Rx Form [NovoLOG Outpatient Scale Rx Form] 1 each MISCELLANE DIRECTED Calcium Acetate [Phoslo] 1,334 mg PO TID hydrALAZINE HCL [Apresoline] 50 mg PO BID Insulin Glargine,Hum.rec.anlog [Basaglar Kwikpen U-100] 23 unit SQ HS Insulin Aspart [NovoLOG Flexpen] 5 units SQ AC-TID Sodium Chloride 5% Ophth Oint [[place] 128] 1 applic BOTH EYES BID Discharge Medication List Metoprolol Tartrate [Lopressor] 25 mg PO BID 03/09/18 [History] Cholecalciferol [Vitamin D3 (25 Mcg = 1000 Iu)] 3,000 unit PO DAILY 05/12/19 [History] allopurinoL [Zyloprim] 100 mg PO HS 05/12/19 [History] Acetaminophen Tab [Tylenol Tab] 500 mg PO Q6H PRN #1 tablet 01/01/20 [Rx] Apixaban [Eliquis] 2.5 mg PO BID tablet 01/01/20 [Rx] Furosemide [Lasix] 40 mg PO BID #0 01/01/20 [Rx] Isosorbide Mononitrate ER [Imdur] 30 mg PO DAILY tab.er.24h 01/01/20 [Rx] Aspirin 81 mg PO DAILY 03/07/20 [History] Atorvastatin Calcium [Lipitor] 10 mg PO HS 04/13/20 [History] Calcium Acetate [Phoslo] 1,334 mg PO TID 12/28/20 [History] Insulin Aspart Scale Rx Form [NovoLOG Outpatient Scale Rx Form] 1 each MISCELLANE DIRECTED 12/28/20 [History] Insulin Aspart [NovoLOG Flexpen] 5 units SQ AC-TID 12/28/20 [History] Insulin Glargine,Hum.rec.anlog [Basaglar Kwikpen U-100] 23 unit SQ HS 12/28/20 [History] Sodium Chloride 5% Ophth Oint [[place] 128] 1 applic BOTH EYES BID 12/28/20 [History] hydrALAZINE HCL [Apresoline] 50 mg PO BID 12/28/20 [History] Follow up Appointment(s)/Referral(s): Alea Guo DO [STAFF PHYSICIAN] - 2 Weeks Activity/Diet/Wound Care/Special Instructions: Leave wrap in place for 48 hours. May resume anticoagulation this evening. Resume regular medications and diet. Continue sponge baths for bathing. Discharge Disposition: TRANSFER TO SNF/ECF
[2020-12-29 11:24] VITALS: BP 94/49; PULSE 77; RESP 18
--- NOTE | 2021-01-08 19:40 | P.ANPRN ---
Procedure Note - Anesthesia - Nerve Block Performed Right Supraclavicular Single Time Out Performed: Yes Date of Procedure: 12/29/20 Procedure Start Time: : Procedure Stop Time: :34 Location of Patient: PreOp Indication: Acute Post-Operative Pain, Requested by Surgeon Sedation Type: Sedate with meaningful contact maintained Preparation: Sterile Prep Position: Supine Needle Types: Pajunk Needle Gauge: 21 Ultrasound used to visualize needle placement: Yes Ultrasound used to observe medication spread: Yes Blood Aspirated: No Pain Paresthesia on Injection Noted: No Resistance on Injection: Normal Image Stored and Saved: Yes Events: Uneventful and Well Tolerated (ropi .5% 20cc)
== END 2020-12-29 12:46 ==
LOC: OR 09:00
PROVIDERS: ATTEND Surgery
DX: N18.6 End stage renal disease (principal); Z90.49 Acquired absence of other specified parts of digestive tract; Z98.890 Other specified postprocedural states; I13.2 Hypertensive heart and chronic kidney disease with heart failure and with stage 5 chronic kidney disease, or end stage renal disease; E11.22 Type 2 diabetes mellitus with diabetic chronic kidney disease; I50.9 Heart failure, unspecified; J90 Pleural effusion, not elsewhere classified; M19.90 Unspecified osteoarthritis, unspecified site; E78.5 Hyperlipidemia, unspecified; E66.9 Obesity, unspecified; Z68.41 Body mass index [BMI] 40.0-44.9, adult; Z79.01 Long term (current) use of anticoagulants; Z79.82 Long term (current) use of aspirin; Z79.4 Long term (current) use of insulin; Z79.899 Other long term (current) drug therapy; Z88.0 Allergy status to penicillin; Z88.8 Allergy status to other drugs, medicaments and biological substances
CPT/HCPCS: 36830; 80048; 85025; L8670; J2250; J1644; J0690; J2405; J2001; J3010; J2795; J2370; J2704; J1790; 64415; 76942

== ENCOUNTER 2021-01-30 10:15 | Emergency (ER) | payer MEDICARE, OTHER ==
[2021-01-30 10:24] VITALS: BP 143/75; PULSE 84; RESP 18; TEMP 97.8
[2021-01-30] MEDS ORDERED: CEPHALEXIN 500 MG CAP PO STA (14:37)
[2021-01-30] MEDS ORDERED: BACITRACIN OINT 1 EACH PACKET TOPICAL ONE (14:37)
--- NOTE | 2021-01-30 14:41 | ED ---
Wound/Laceration HPI - General Chief Complaint: Wound/Laceration Stated Complaint: Rt leg cut wont stop bleeding on elquis Time Seen by Provider: 01/30/21 14:18 Source: patient Mode of arrival: wheelchair Limitations: no limitations - History of Present Illness Initial Comments: Patient presents with an injury to the right lower extremity. It occurred yesterday. She had some bleeding. The bleeding is controlled. She has no fevers or chills. She has no weakness. She has no swelling. She has no discharge from the site. - Related Data Home Medications Medication Instructions Recorded Confirmed Metoprolol Tartrate [Lopressor] 25 mg PO BID 03/09/18 12/29/20 Cholecalciferol [Vitamin D3 (25 3,000 unit PO DAILY 05/12/19 12/29/20 Mcg = 1000 Iu)] allopurinoL [Zyloprim] 100 mg PO HS 05/12/19 12/29/20 Aspirin 81 mg PO DAILY 03/07/20 12/29/20 Atorvastatin Calcium [Lipitor] 10 mg PO HS 04/13/20 12/29/20 Calcium Acetate [Phoslo] 1,334 mg PO TID 12/28/20 12/29/20 Insulin Aspart Scale Rx Form 1 each MISCELLANE DIRECTED 12/28/20 12/29/20 [NovoLOG Outpatient Scale Rx Form] Insulin Aspart [NovoLOG Flexpen] 5 units SQ AC-TID 12/28/20 12/29/20 Insulin Glargine,Hum.rec.anlog 23 unit SQ HS 12/28/20 12/29/20 [Basaglar Kwikpen U-100] Sodium Chloride 5% Ophth Oint 1 applic BOTH EYES BID 12/28/20 12/29/20 [[place] 128] hydrALAZINE HCL [Apresoline] 50 mg PO BID 12/28/20 12/29/20 Previous Rx's Medication Instructions Recorded Acetaminophen Tab [Tylenol Tab] 500 mg PO Q6H PRN #1 tablet 01/01/20 Apixaban [Eliquis] 2.5 mg PO BID tablet 01/01/20 Furosemide [Lasix] 40 mg PO BID #0 01/01/20 Isosorbide Mononitrate ER [Imdur] 30 mg PO DAILY tab.er.24h 01/01/20 Cephalexin [Keflex] 500 mg PO Q6HR 1 Days #28 cap 01/30/21 Allergies Allergy/AdvReac Type Severity Reaction Status Date / Time Penicillins Allergy Severe Rash/Hives, Verified 01/30/21 10:24 Itching simvastatin [From Zocor] AdvReac Severe constipation, Verified 01/30/21 10:24 dry cough pregabalin [From Lyrica] AdvReac Unknown Verified 01/30/21 10:24 tide laundry detergent Allergy Itching Uncoded 01/30/21 10:24 Review of Systems ROS Statement: Those systems with pertinent positive or pertinent negative responses have been documented in the HPI. ROS Other: All systems not noted in ROS Statement are negative. Past Medical History Past Medical History: Heart Failure, Diabetes Mellitus, Deep Vein Thrombosis (DVT), GERD/Reflux, Hyperlipidemia, Hypertension, Osteoarthritis (OA), Renal Disease, Skin Disorder, Vascular Disorder, Vascular Disorder Additional Past Medical History / Comment(s): 2018 respiratory failure with coma/trach/vent, NIDDM type II, neuropathy bilateral feet, DVT L leg, PVD, CKD stage III/has L arm AV fistula with past dialysis, chronic anemia, pt believes she has had gout, PVD, current wound L heel/toes, past decub coccyx/R buttock, cellulitis R leg, osteomylitis R foot/toes, constipation/diverticular disease, bilateral tinnitis, History of Any Multi-Drug Resistant Organisms: MRSA Date of last positivie culture/infection: 01/25/19 MDRO Source:: FOOT Past Surgical History: Appendectomy, Cholecystectomy, Orthopedic Surgery Additional Past Surgical History / Comment(s): 11/25/19 ligation branches L upper extremity fistula, 07/2019 L arm A/V fistula, partial amputation R 5th/3rd toe, bilateral cataracts/lens/RK, ovarian cystectomy, left upper extremity 1st Stage Vein procedure. Fistula procedure done on 04/15/20. Past Anesthesia/Blood Transfusion Reactions: No Reported Reaction Additional Past Anesthesia/Blood Transfusion Reaction / Comment(s): clausterphobia Past Psychological History: No Psychological Hx Reported Smoking Status: Former smoker Past Alcohol Use History: None Reported Past Drug Use History: None Reported - Past Family History Father Additional Family Medical History / Comment(s): ALCOHOLIC Mother Family Medical History: Cancer, CVA/TIA, Diabetes Mellitus, Myocardial Inf arction ([place]) Additional Family Medical History / Comment(s): Colon cancer. Brother(s) Additional Family Medical History / Comment(s): DRUG DEPENDENCY General Exam Limitations: no limitations General appearance: alert Extremities exam: Present: full ROM Neurological exam: Present: alert, oriented X3 Skin exam: Present: other (Result laceration on the right lower extremity) Course Vital Signs 01/30/21 10:20 Temperature 97.8 F Pulse Rate 84 Respiratory 18 Rate Blood Pressure 143/75 O2 Sat by Pulse 100 Oximetry Medical Decision Making - Medical Decision Making Patient presents with an injury to the right lower charming. It occurred almost 24 hours ago. Based on my examination sutures are not indicated at this time. Her tetanus immunization is up-to-date. A sterile dressing is applied. I gave the patient a dose of antibiotics because of the length of time it was open. She is stable for discharge. Disposition Clinical Impression: Laceration Disposition: HOME SELF-CARE Condition: Good Prescriptions: Cephalexin [Keflex] 500 mg PO Q6HR 1 Days #28 cap Is patient prescribed a controlled substance at d/c from ED?: No Referrals: Dav Roldan DO [Primary Care Provider] - 1-2 days
== END 2021-01-30 14:58 | disposition home or self-care (01) ==
LOC: EC 10:15
DX: S81.811A Laceration without foreign body, right lower leg, initial encounter (principal); E11.22 Type 2 diabetes mellitus with diabetic chronic kidney disease; E11.51 Type 2 diabetes mellitus with diabetic peripheral angiopathy without gangrene; E11.36 Type 2 diabetes mellitus with diabetic cataract; E11.40 Type 2 diabetes mellitus with diabetic neuropathy, unspecified; I13.0 Hypertensive heart and chronic kidney disease with heart failure and stage 1 through stage 4 chronic kidney disease, or unspecified chronic kidney disease; I50.9 Heart failure, unspecified; N18.30 Chronic kidney disease, stage 3 unspecified; E78.5 Hyperlipidemia, unspecified; K21.9 Gastro-esophageal reflux disease without esophagitis; M19.90 Unspecified osteoarthritis, unspecified site; Z79.01 Long term (current) use of anticoagulants; Z79.4 Long term (current) use of insulin; Z79.82 Long term (current) use of aspirin; Z79.899 Other long term (current) drug therapy; Z87.891 Personal history of nicotine dependence; Z88.0 Allergy status to penicillin; Z86.718 Personal history of other venous thrombosis and embolism; Z83.3 Family history of diabetes mellitus; Z82.49 Family history of ischemic heart disease and other diseases of the circulatory system; Z90.49 Acquired absence of other specified parts of digestive tract; Z99.2 Dependence on renal dialysis; W22.8XXA Striking against or struck by other objects, initial encounter
CPT/HCPCS: 99282

== ENCOUNTER 2021-05-16 14:48 | Emergency (ER) | payer MEDICARE, OTHER ==
[2021-05-16 15:23] VITALS: TEMP 97.7
[2021-05-16 16:11] LABS: Basophils % (A) 0 %; Eosinophils # (A) 0.2 k/uL (0-0.7); Eosinophils % (A) 3 %; HCT 34.9 % (34.0-46.0); HGB 11.6 gm/dL (11.4-16.0); Lymphocytes # (A) 0.9 k/uL (1.0-4.8); Lymphocytes % (A) 13 %; MCH 32.2 pg (25.0-35.0); MCHC 33.4 g/dL (31.0-37.0); MCV 96.4 fL (80.0-100.0); Monocytes # (A) 0.3 k/uL (0-1.0); Monocytes % (A) 4 %; Neutrophils # (A) 5.5 k/uL (1.3-7.7); Neutrophils % (A) 79 %; Platelet Count 145 k/uL (150-450); RBC 3.62 m/uL (3.80-5.40); RDW 15.3 % (11.5-15.5); WBC 6.9 k/uL (3.8-10.6)
[2021-05-16 16:16] LABS: INR 0.9 (<1.2)
[2021-05-16 16:24] LABS: Albumin 3.6 g/dL (3.5-5.0); Calcium 9.3 mg/dL (8.4-10.2); Potassium 4.2 mmol/L (3.5-5.1); Total Bilirubin 0.5 mg/dL (0.2-1.3); Total Protein 6.9 g/dL (6.3-8.2)
--- NOTE | 2021-05-16 19:27 | ED ---
Dizziness HPI - General Chief Complaint: Dizziness Stated Complaint: Dizziness,Blurred vision Time Seen by Provider: 05/16/21 18:22 Source: patient Mode of arrival: ambulatory Limitations: no limitations - History of Present Illness Initial Comments: Patient is a 70-year-old female with PMH of renal failure, type 2 diabetes, hypertension, and CHF presenting with a CBC of lightheadedness. Symptoms began this morning around 7:30 AM when she woke up and persisted until about noon. It was accompanied by peripheral blurry vision. Symptoms came and went during rest and exertion. Since states that she went to wound care today and they advised her to reports ER for evaluation. Patient is on dialysis, last dialysis was Saturday. Patient states that she has a blood pressure medication that she takes when "my blood pressure is above 120 which never happens", and that she is concerned her blood sugar is what caused the symptoms. She denies chest pain, shortness of breath, headache, fever, chills, nausea, vomiting, abdominal pain, loss of sensation on one side of the body, motor function on one side of the body, confusion, memory loss, recent fall or head injury. - Related Data Home Medications Medication Instructions Recorded Confirmed Aspirin 81 mg PO DAILY 03/07/20 05/16/21 Calcium Acetate [Phoslo] 1,334 mg PO TID-W/MEALS 12/28/20 05/16/21 Insulin Aspart [NovoLOG Flexpen] 4 units SQ AC-TID 12/28/20 05/16/21 Insulin Glargine,Hum.rec.anlog 28 unit SQ HS 12/28/20 05/16/21 [Basaglar Kwikpen U-100] Cholecalciferol [Vitamin D3 (25 75 mcg PO DAILY 05/16/21 05/16/21 Mcg = 1000 Iu)] Insulin Aspart [NovoLOG Flexpen] See Protocol SQ AC-TID 05/16/21 05/16/21 Previous Rx's Medication Instructions Recorded Apixaban [Eliquis] 2.5 mg PO BID tablet 01/01/20 Furosemide [Lasix] 40 mg PO BID #0 01/01/20 Sulfamethox-Tmp 800-160Mg [Bactrim 1 tab PO Q12HR 5 Days #10 tab 05/17/21 DS 800-160 mg] Allergies Allergy/AdvReac Type Severity Reaction Status Date / Time Penicillins Allergy Severe Rash/Hives, Verified 05/16/21 20:36 Itching simvastatin [From Zocor] AdvReac Severe constipation, Verified 05/16/21 20:36 dry cough pregabalin [From Lyrica] AdvReac Unknown Verified 05/16/21 20:36 tide laundry detergent Allergy Itching Uncoded 05/16/21 20:36 Review of Systems ROS Statement: Those systems with pertinent positive or pertinent negative responses have been documented in the HPI. ROS Other: All systems not noted in ROS Statement are negative. Past Medical History Past Medical History: Heart Failure, Diabetes Mellitus, Deep Vein Thrombosis (DVT), GERD/Reflux, Hyperlipidemia, Hypertension, Osteoarthritis (OA), Renal Disease, Skin Disorder, Vascular Disorder, Vascular Disorder Additional Past Medical History / Comment(s): 2018 respiratory failure with coma /trach/vent, NIDDM type II, neuropathy bilateral feet, DVT L leg, PVD, CKD stage III/has L arm AV fistula with past dialysis, chronic anemia, pt believes she has had gout, PVD, current wound L heel/toes, past decub coccyx/R buttock, cellulitis R leg, osteomylitis R foot/toes, constipation/diverticular disease, bilateral tinnitis, History of Any Multi-Drug Resistant Organisms: MRSA Date of last positivie culture/infection: 01/25/19 MDRO Source:: FOOT Past Surgical History: Appendectomy, Cholecystectomy, Orthopedic Surgery Additional Past Surgical History / Comment(s): 11/25/19 ligation branches L upper extremity fistula, 07/2019 L arm A/V fistula, partial amputation R 5th/3rd toe, bilateral cataracts/lens/RK, ovarian cystectomy, left upper extremity 1st Stage Vein procedure. Fistula procedure done on 04/15/20. Past Anesthesia/Blood Transfusion Reactions: No Reported Reaction Additional Past Anesthesia/Blood Transfusion Reaction / Comment(s): clausterphobia Past Psychological History: No Psychological Hx Reported Smoking Status: Former smoker Past Alcohol Use History: None Reported Past Drug Use History: None Reported - Past Family History Father Additional Family Medical History / Comment(s): ALCOHOLIC Mother Family Medical History: Cancer, CVA/TIA, Diabetes Mellitus, Myocardial Infarction (NM) Additional Family Medical History / Comment(s): Colon cancer. Brother(s) Additional Family Medical History / Comment(s): DRUG DEPENDENCY General Exam Limitations: no limitations General appearance: alert, in no apparent distress Head exam: Present: atraumatic, normocephalic, normal inspection Eye exam: Present: normal appearance, PERRL, EOMI. Absent: scleral icterus, conjunctival injection, periorbital swelling Neck exam: Present: normal inspection. Absent: tenderness, meningismus, lymphadenopathy Respiratory exam: Present: normal lung sounds bilaterally. Absent: respiratory distress, wheezes, rales, rhonchi, stridor Cardiovascular Exam: Present: regular rate, normal rhythm, normal heart sounds. Absent: systolic murmur, diastolic murmur, rubs, gallop, clicks Extremities exam: Present: pedal edema Neurological exam: Present: alert, oriented X3, CN II-XII intact Expanded Speech: Present: fluid speech Eye Response: (4) open spontaneously Motor Response: (6) obeys commands Verbal Response: (5) oriented [place] Total: 15 Psychiatric exam: Present: normal affect, normal mood Skin exam: Present: warm, dry, intact, normal color. Absent: rash Course Vital Signs 05/16/21 05/16/21 15:17 19:47 Temperature 97.7 F Pulse Rate 70 Pulse Rate [ 76 Sitting Pulse Oximetery] Pulse Rate [ 80 Standing Pulse Oximetery] Pulse Rate [ 72 Supine Pulse Oximetery] Respiratory 16 18 Rate Blood Pressure 122/73 Blood Pressure 150/75 [Left Arm Sitting] Blood Pressure 136/81 [Left Arm Standing] Blood Pressure 137/63 [Left Arm Supine] O2 Sat by Pulse 100 98 Oximetry - Reevaluation(s) Reevaluation #1: Patient appears well, not complaining of dizziness, vision changes 05/16/21 21:12 EKG Findings - EKG Results: EKG: interpreted by ERMD, sinus rhythm, no acute changes Medical Decision Making - Medical Decision Making Patient is a 70-year-old female presenting with chief complaint of lightheadedness and blurred vision. This began around 7:30 this morning and persisted until noon. It came and went throughout that time and was present regardless of exertion or rest. Patient states that her peripheral vision became blurry but never her entire field of vision. Patient states that she does not take her blood pressure medication unless her systolic BP is above 120, which she states does not happen often. She denied headache, vision loss, chest pain, shortness of breath, loss of consciousness, memory loss, nausea, vomiting. On exam there were no neuro deficits. Labs revealed magnesium and phosphorus abnormalities consistent with a dialysis patient. UA showed UTI. 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 Patient must follow-up with neurology in 1-2 days. Follow-up with PCP in one to 2 days. Take antibiotic as prescribed for UTI (duplicate order sent due to patient needing a change of pharmacy, patient knows to only take one dose of antibiotics). Report back to ER if worsening symptoms or new onset alarming symptoms occur such as those that I discussed with the patient. Answered all questions. Patient conveyed verbal understanding and agreed to the plan. I discussed this case with my attending Dr. Luna. - Lab Data Result diagrams: 05/16/21 15:42 05/16/21 15:42 Lab Results 05/16/21 05/16/21 05/16/21 Range/Units 15:42 15:42 15:42 WBC 6.9 (3.8-10.6) k/uL RBC 3.62 L (3.80-5.40) m/uL Hgb 11.6 (11.4-16.0) gm/dL Hct 34.9 (34.0-46.0) % MCV 96.4 (80.0-100.0) fL MCH 32.2 (25.0-35.0) pg MCHC 33.4 (31.0-37.0) g/dL RDW 15.3 (11.5-15.5) % Plt Count 145 L (150-450) k/uL MPV 8.0 Neutrophils % 79 % Lymphocytes % 13 % Monocytes % 4 % Eosinophils % 3 % Basophils % 0 % Neutrophils # 5.5 (1.3-7.7) k/uL Lymphocytes # 0.9 L (1.0-4.8) k/uL Monocytes # 0.3 (0-1.0) k/uL Eosinophils # 0.2 (0-0.7) k/uL Basophils # 0.0 (0-0.2) k/uL PT (9.0-12.0) sec INR (<1.2) Sodium 137 (137-145) mmol/L Potassium 4.2 (3.5-5.1) mmol/L Chloride 98 (98-107) mmol/L Carbon Dioxide 26 (22-30) mmol/L Anion Gap 13 mmol/L BUN 52 H (7-17) mg/dL Creatinine 5.93 H (0.52-1.04) mg/dL Est GFR (CKD-EPI)AfAm 8 (>60 ml/min/1.73 sqM) Est GFR (CKD-EPI)NonAf 7 (>60 ml/min/1.73 sqM) Glucose 220 H (74-99) mg/dL Plasma Lactic Acid Jamar 1.5 (0.7-2.0) mmol/L Calcium 9.3 (8.4-10.2) mg/dL Phosphorus (2.5-4.5) mg/dL Magnesium (1.6-2.3) mg/dL Total Bilirubin 0.5 (0.2-1.3) mg/dL AST 15 (14-36) U/L ALT 11 (4-34) U/L Alkaline Phosphatase 77 (38-126) U/L Troponin I (0.000-0.034) ng/mL NT-Pro-B Natriuret Pep pg/mL Total Protein 6.9 (6.3-8.2) g/dL Albumin 3.6 (3.5-5.0) g/dL Urine Color Urine Appearance (Clear) Urine pH (5.0-8.0) Ur Specific [place] (1.001-1.035) Urine Protein (Negative) Urine Glucose (UA) (Negative) Urine Ketones (Negative) Urine Blood (Negative) Urine Nitrite (Negative) Urine Bilirubin (Negative) Urine Urobilinogen (<2.0) mg/dL Ur Leukocyte Esterase (Negative) Urine RBC (0-5) /hpf Urine WBC (0-5) /hpf Urine WBC Clumps (None) /hpf Ur Squamous Epith Cells (0-4) /hpf Urine Bacteria (None) /hpf 05/16/21 05/16/21 05/16/21 Range/Units 15:42 15:42 19:21 WBC (3.8-10.6) k/uL RBC (3.80-5.40) m/uL Hgb (11.4-16.0) gm/dL Hct (34.0-46.0) % MCV (80.0-100.0) fL MCH (25.0-35.0) pg MCHC (31.0-37.0) g/dL RDW (11.5-15.5) % Plt Count (150-450) k/uL MPV Neutrophils % % Lymphocytes % % Monocytes % % Eosinophils % % Basophils % % Neutrophils # (1.3-7.7) k/uL Lymphocytes # (1.0-4.8) k/uL Monocytes # (0-1.0) k/uL Eosinophils # (0-0.7) k/uL Basophils # (0-0.2) k/uL PT 10.0 (9.0-12.0) sec INR 0.9 (<1.2) Sodium (137-145) mmol/L Potassium (3.5-5.1) mmol/L Chloride (98-107) mmol/L Carbon Dioxide (22-30) mmol/L Anion Gap mmol/L BUN (7-17) mg/dL Creatinine (0.52-1.04) mg/dL Est GFR (CKD-EPI)AfAm (>60 ml/min/1.73 sqM) Est GFR (CKD-EPI)NonAf (>60 ml/min/1.73 sqM) Glucose (74-99) mg/dL Plasma Lactic Acid Jamar (0.7-2.0) mmol/L Calcium (8.4-10.2) mg/dL Phosphorus (2.5-4.5) mg/dL Magnesium (1.6-2.3) mg/dL Total Bilirubin (0.2-1.3) mg/dL AST (14-36) U/L ALT (4-34) U/L Alkaline Phosphatase (38-126) U/L Troponin I <0.012 (0.000-0.034) ng/mL NT-Pro-B Natriuret Pep 2850 pg/mL Total Protein (6.3-8.2) g/dL Albumin (3.5-5.0) g/dL Urine Color Urine Appearance (Clear) Urine pH (5.0-8.0) Ur Specific [place] (1.001-1.035) Urine Protein (Negative) Urine Glucose (UA) (Negative) Urine Ketones (Negative) Urine Blood (Negative) Urine Nitrite (Negative) Urine Bilirubin (Negative) Urine Urobilinogen (<2.0) mg/dL Ur Leukocyte Esterase (Negative) Urine RBC (0-5) /hpf Urine WBC (0-5) /hpf Urine WBC Clumps (None) /hpf Ur Squamous Epith Cells (0-4) /hpf Urine Bacteria (None) /hpf 05/16/21 05/16/21 Range/Units 19:30 20:30 WBC (3.8-10.6) k/uL RBC (3.80-5.40) m/uL Hgb (11.4-16.0) gm/dL Hct (34.0-46.0) % MCV (80.0-100.0) fL MCH (25.0-35.0) pg MCHC (31.0-37.0) g/dL RDW (11.5-15.5) % Plt Count (150-450) k/uL MPV Neutrophils % % Lymphocytes % % Monocytes % % Eosinophils % % Basophils % % Neutrophils # (1.3-7.7) k/uL Lymphocytes # (1.0-4.8) k/uL Monocytes # (0-1.0) k/uL Eosinophils # (0-0.7) k/uL Basophils # (0-0.2) k/uL PT (9.0-12.0) sec INR (<1.2) Sodium (137-145) mmol/L Potassium (3.5-5.1) mmol/L Chloride (98-107) mmol/L Carbon Dioxide (22-30) mmol/L Anion Gap mmol/L BUN (7-17) mg/dL Creatinine (0.52-1.04) mg/dL Est GFR (CKD-EPI)AfAm (>60 ml/min/1.73 sqM) Est GFR (CKD-EPI)NonAf (>60 ml/min/1.73 sqM) Glucose (74-99) mg/dL Plasma Lactic Acid Jamar (0.7-2.0) mmol/L Calcium (8.4-10.2) mg/dL Phosphorus 5.7 H (2.5-4.5) mg/dL Magnesium 2.5 H (1.6-2.3) mg/dL Total Bilirubin (0.2-1.3) mg/dL AST (14-36) U/L ALT (4-34) U/L Alkaline Phosphatase (38-126) U/L Troponin I (0.000-0.034) ng/mL NT-Pro-B Natriuret Pep pg/mL Total Protein (6.3-8.2) g/dL Albumin (3.5-5.0) g/dL Urine Color Light Red Urine Appearance Turbid H (Clear) Urine pH 6.5 (5.0-8.0) Ur Specific [place] >1.050 H (1.001-1.035) Urine Protein 3+ H (Negative) Urine Glucose (UA) Negative (Negative) Urine Ketones Trace H (Negative) Urine Blood Small H (Negative) Urine Nitrite Negative (Negative) Urine Bilirubin Negative (Negative) Urine Urobilinogen 8.0 (<2.0) mg/dL Ur Leukocyte Esterase Large H (Negative) Urine RBC 11 H (0-5) /hpf Urine WBC 165 H (0-5) /hpf Urine WBC Clumps Many H (None) /hpf Ur Squamous Epith Cells 10 H (0-4) /hpf Urine Bacteria Many H (None) /hpf Disposition Clinical Impression: Lightheadedness, Vision disturbance Disposition: HOME SELF-CARE Condition: Good Instructions (If sedation given, give patient instructions): Blurred Vision (ED), Dizziness (ED) Additional Instructions: Follow-up with neurology in 1-2 days. Follow-up with PCP in one to 2 days. Take medication as prescribed. Report back to ER with any worsening or new onset alarming symptoms, such as headache, vertigo, nausea, vomiting, vision changes, weakness or numbness. Prescriptions: Sulfamethox-Tmp 800-160Mg [Bactrim DS 800-160 mg] 1 tab PO Q12HR 5 Days #10 tab Is patient prescribed a controlled substance at d/c from ED?: No Referrals: Karen Anderson MD [Primary Care Provider] - 1-2 days Emre Bey MD [STAFF PHYSICIAN] - 1-2 days Time of Disposition: 22:41
[2021-05-16 19:49] VITALS: BP 137/63; PULSE 72; RESP 18
[2021-05-16 19:58] LABS: Magnesium 2.5 mg/dL (1.6-2.3); Phosphorus 5.7 mg/dL (2.5-4.5)
[2021-05-16 20:52] LABS: Appearance,Urine Turbid (Clear); Bacteria,Urine Many /hpf; Bilirubin,Urine Negative (Negative); Blood,Urine Small (Negative); Color,Urine Light Red; Glucose,Urine (UA) Negative (Negative); Ketones,Urine Trace (Negative); Leukocyte Esterase,Urine Large (Negative); Nitrite,Urine Negative (Negative); PH, Urine 6.5 (5.0-8.0); Protein,Urine 3+ (Negative); RBC,Urine 11 /hpf (0-5); Specific Gravity,Urine >1.050 (1.001-1.035); Squamous Epithelial Cell,Urine 10 /hpf (0-4); WBC,Urine 165 /hpf (0-5)
--- NOTE | 2021-05-16 22:26 | CT ---
EXAMINATION TYPE: CT brain wo con DATE OF EXAM: 05/16/2021 COMPARISON: 07/10/2012 HISTORY: Dizziness and vision disturbances CT DLP: 1159.4 mGycm Automated exposure control for dose reduction was used. Images obtained of the brain without contrast. There is mild cerebral atrophy. There is no mass effect nor midline shift. There is no evidence of in tracranial hemorrhage. There is a 2 x 1.5 cm high density mass that appears extra-axial at the anterior left middle cranial fossa. This also contains small calcification. There is no evidence of orbital mass. Sella turcica appears normal. There is no evidence of a posteri or fossa mass. 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
== END 2021-05-16 23:45 | disposition home or self-care (01) ==
LOC: EC 14:48
DX: R42 Dizziness and giddiness (principal); H53.9 Unspecified visual disturbance; E11.40 Type 2 diabetes mellitus with diabetic neuropathy, unspecified; I13.2 Hypertensive heart and chronic kidney disease with heart failure and with stage 5 chronic kidney disease, or end stage renal disease; E11.22 Type 2 diabetes mellitus with diabetic chronic kidney disease; N18.6 End stage renal disease; I50.9 Heart failure, unspecified; M19.90 Unspecified osteoarthritis, unspecified site; K21.9 Gastro-esophageal reflux disease without esophagitis; E78.5 Hyperlipidemia, unspecified; Z99.2 Dependence on renal dialysis; Z86.718 Personal history of other venous thrombosis and embolism; Z87.891 Personal history of nicotine dependence; Z90.49 Acquired absence of other specified parts of digestive tract; Z79.01 Long term (current) use of anticoagulants; Z79.4 Long term (current) use of insulin; Z79.82 Long term (current) use of aspirin; Z79.899 Other long term (current) drug therapy; Z88.0 Allergy status to penicillin; Z88.8 Allergy status to other drugs, medicaments and biological substances
CPT/HCPCS: 36415; 70450; 80053; 81001; 83605; 83735; 83880; 84100; 84484; 85025; 85610; 87086; 93005; 99284

== ENCOUNTER → 2021-08-24 | Outpatient (CLI) | payer MEDICARE, OTHER ==
--- NOTE | 2021-09-01 08:30 | US ---
EXAMINATION TYPE: US arterial LE multi level DATE OF EXAM: 08/24/2021 3:07 PM CLINICAL HISTORY: E13.621 DISEASE OF FOOT OTHER SPECI DIABETES. Diabetes mellitus, left foot wound. Cary gonzalez has thickened toenails. Patient provided limited history of her medications. Patient has fistu la in left upper arm and graft in her right arm. She can only get her blood pressure taken in her lef t forearm. Previous smoker, rest pain in both of her legs per patient. Doppler Waveforms: Right: Biphasic Left: Biphasic to monophasic Pulse Volume Recording: Flattened on the right Ankle-Brachial Indices: Right: 1.19 Left: 0.94 Cuff on left forearm. Toe Brachial Indices: Right: 0.89 Left: 0.62 IMPRESSION: Normal DANIEL and TBI values. Loss of phasicity may be technical.
== END | disposition home or self-care (01) ==
LOC: RADUSWWP 12:19
PROVIDERS: ATTEND Family Medicine
DX: E13.621 Other specified diabetes mellitus with foot ulcer (principal); Z87.891 Personal history of nicotine dependence
CPT/HCPCS: 93923

== ENCOUNTER 2021-10-19 16:53 | Inpatient (IN) | payer MEDICARE, OTHER ==
[2021-10-19] MEDS ORDERED: DIPH,PERTUS(ACELL)TETVAC-LF 0.5 ML VIAL IM ONE (17:31)
[2021-10-19] MEDS ORDERED: diphenhydrAMINE 50 MG/ML 1 ML VIAL IVP STA (17:32)
[2021-10-19] MEDS ORDERED: ONDANSETRON 4 MG/2 ML VIAL IVP STA (17:32)
[2021-10-19] MEDS ORDERED: VANCOMYCIN IV PER PHARMACY 1 EACH MISC MISCELLANE PRN (17:32)
[2021-10-19] MEDS ORDERED: VANCOMYCIN 1,750 MG in SODIUM CHLORIDE 0.9% 500 ML 500 ML IVPB STA (17:36)
[2021-10-19 18:18] LABS: Basophils % (A) 0 %; Eosinophils # (A) 0.1 k/uL (0-0.7); Eosinophils % (A) 1 %; HCT 38.1 % (34.0-46.0); HGB 11.8 gm/dL (11.4-16.0); Lymphocytes % (A) 11 %; MCH 29.2 pg (25.0-35.0); MCHC 30.8 g/dL (31.0-37.0); MCV 94.6 fL (80.0-100.0); Mean Platelet Volume 8.1; Monocytes # (A) 0.4 k/uL (0-1.0); Monocytes % (A) 4 %; Neutrophils # (A) 7.5 k/uL (1.3-7.7); Neutrophils % (A) 82 %; Platelet Count 163 k/uL (150-450); RBC 4.03 m/uL (3.80-5.40); RDW 14.3 % (11.5-15.5); WBC 9.1 k/uL (3.8-10.6)
[2021-10-19 18:28] LABS: Albumin 3.8 g/dL (3.5-5.0); Calcium 9.2 mg/dL (8.4-10.2); Total Bilirubin 0.7 mg/dL (0.2-1.3)
--- NOTE | 2021-10-19 18:48 | XR ---
RESULT: HISTORY: right fifth toe wound TECHNIQUE: 2 views of the right tibia and fibula. 3 views of the right foot. COMPARISON: None. FINDINGS: There is no acute fracture or dislocation of the right tibia, fibula or foot. Prior amputation of the little toe at the level of the proximal phalangeal base is seen. There is a soft tissue wound/defect overlying the little toe MTP joint. No radiographic evidence of osteomyelitis or soft tissue gas. No radiopaque foreign body. There are scattered mild to moderate degenerative changes of the forefoot. Moderate sized plantar and small dorsal calcaneal enthesophyte seen. Heterotopic ossification versus calcifications along the proximal tibia diaphysis at the medial aspec t seen. Diffuse mild dystrophic soft tissue calcifications about the distal leg seen. IMPRESSION: No acute osseous abnormality of the right tibia, fibula or foot. Ulcer overlying the little toe seen.
--- NOTE | 2021-10-19 19:32 | US ---
EXAMINATION TYPE: US venous doppler duplex LE BI DATE OF EXAM: 10/19/2021 7:14 PM COMPARISON: 11/01/17 CLINICAL HISTORY: history of dvt, noncompliant with meds. Patient states her home nurse noticed redne ss in right calf. Pt is on blood thinners x years, but hasn't taken them in a couple days. SIDE PERFORMED: Bilateral TECHNIQUE: The lower extremity deep venous system is examined utilizing real time linear array sonog amanda with graded compression, doppler sonography and color-flow sonography. VESSELS IMAGED: Common Femoral Vein Deep Femoral Vein Greater Saphenous Vein * Femoral Vein Popliteal Vein Small Saphenous Vein * Proximal Calf Veins (* superficial vessels) Right Leg: Negative for DVT. Distal fem vein limited due to patient being in pain and moving. Good c olor flow and doppler seen in distal fem vein. Left Leg: Negative for DVT IMPRESSION: No evidence of bilateral lower extremity DVT within the limitations of the study.
--- NOTE | 2021-10-19 19:50 | ED ---
General Adult HPI - General Chief complaint: Skin/Abscess/Foreign Body Stated complaint: poss DVT/infection Time Seen by Provider: 10/19/21 17:02 Source: patient, EMS, RN notes reviewed, old records reviewed Mode of arrival: EMS Limitations: no limitations - History of Present Illness Initial comments: She is a 70-year-old female with past medical history remarkable for diabetes, ESRD on hemodialysis, heart failure, DVTs on Eliquis has been noncompliant, chronic lower extremity wounds who presents in the department complaining of worsening redness of her right lower extremity. Patient is concerned for worsening infection. She does have a new were right fifth digit wound with erythema spreading up her right seo almost to the knee. There is nontender. She is also having some intermittent nausea and vomiting. No fevers. No sensory deficits that are new. No weakness. Has not been taking all of her medications. Presents for further evaluation over concern for worsening infection. Has not missed any dialysis runs. SHe follows up with Dr. Hahn. - Related Data Home Medications Medication Instructions Recorded Confirmed Aspirin 81 mg PO DAILY 03/07/20 05/16/21 Calcium Acetate [Phoslo] 1,334 mg PO TID-W/MEALS 12/28/20 05/16/21 Insulin Aspart [NovoLOG Flexpen] 4 units SQ AC-TID 12/28/20 05/16/21 Insulin Glargine,Hum.rec.anlog 28 unit SQ HS 12/28/20 05/16/21 [Basaglar Kwikpen U-100] Cholecalciferol [Vitamin D3 (25 75 mcg PO DAILY 05/16/21 05/16/21 Mcg = 1000 Iu)] Insulin Aspart [NovoLOG Flexpen] See Protocol SQ AC-TID 05/16/21 05/16/21 Previous Rx's Medication Instructions Recorded Apixaban [Eliquis] 2.5 mg PO BID tablet 01/01/20 Furosemide [Lasix] 40 mg PO BID #0 01/01/20 Sulfamethox-Tmp 800-160Mg [Bactrim 1 tab PO Q12HR 5 Days #10 tab 05/17/21 DS 800-160 mg] Allergies Allergy/AdvReac Type Severity Reaction Status Date / Time Penicillins Allergy Severe Rash/Hives, Verified 05/16/21 20:36 Itching simvastatin [From Zocor] AdvReac Severe constipation, Verified 05/16/21 20:36 dry cough pregabalin [From Lyrica] AdvReac Unknown Verified 05/16/21 20:36 tide laundry detergent Allergy Itching Uncoded 05/16/21 20:36 Review of Systems ROS Statement: Those systems with pertinent positive or pertinent negative responses have been documented in the HPI. Review of Systems: CONST: Denies fever EYES: Denies blurry vision ENT: Denies nasal congestion C/V: Denies Chest pain RESP: Denies shortness of breath GI: Denies abdominal pain : Denies dysuria SKIN: Endorses right fifth toe wound, erythema MSK: Denies joint pain. NEURO: Denies headache ROS Other: All systems not noted in ROS Statement are negative. Past Medical History Past Medical History: Heart Failure, Diabetes Mellitus, Deep Vein Thrombosis (DVT), GERD/Reflux, Hyperlipidemia, Hypertension, Osteoarthritis (OA), Renal Disease, Skin Disorder, Vascular Disorder, Vascular Disorder Additional Past Medical History / Comment(s): 2018 respiratory failure with coma/trach/vent, NIDDM type II, neuropathy bilateral feet, DVT L leg, PVD, CKD stage III/has L arm AV fistula with past dialysis, chronic anemia, pt believes she has had gout, PVD, current wound L heel/toes, past decub coccyx/R buttock, cellulitis R leg, osteomylitis R foot/toes, constipation/diverticular disease, bilateral tinnitis, History of Any Multi-Drug Resistant Organisms: MRSA Date of last positivie culture/infection: 01/25/19 MDRO Source:: FOOT Past Surgical History: Appendectomy, Cholecystectomy, Orthopedic Surgery Additional Past Surgical History / Comment(s): 11/25/19 ligation branches L upper extremity fistula, 07/2019 L arm A/V fistula, partial amputation R 5th/3rd toe, bilateral cataracts/lens/RK, ovarian cystectomy, left upper extremity 1st Stage Vein procedure. Fistula procedure done on 04/15/20. Past Anesthesia/Blood Transfusion Reactions: No Reported Reaction Additional Past Anesthesia/Blood Transfusion Reaction / Comment(s): clausterphobia Past Psychological History: No Psychological Hx Reported Smoking Status: Former smoker Past Alcohol Use History: None Reported Past Drug Use History: None Reported - Past Family History Father Additional Family Medical History / Comment(s): ALCOHOLIC Mother Family Medical History: Cancer, CVA/TIA, Diabetes Mellitus, Myocardial Infarction ([place]) Additional Family Medical History / Comment(s): Colon cancer. Brother(s) Additional Family Medical History / Comment(s): DRUG DEPENDENCY General Exam - General Exam Comments Initial Comments: General: Appears in no acute distress. HEAD: Normal with no signs of head trauma. EYES: PERRLA, EOMI, conjunctiva normal, no discharge. ENT: Hearing grossly intact, normal oropharynx. RESPIRATORY: Clear breath sounds bilaterally. No wheezes, rales, or rhonchi. No hypoxia. No increased work of breathing. C/V: Regular rate and rhythm. S1 and S2 auscultated, no edema, peripheral pulses 2+ and intact throughout ABD: Abd is soft, nontender, nondistended EXT: Normal range of motion, no obvious deformity SKIN: Edema located over the right foot, spreading up her right seo just inferior to the knee. No induration. No fluctuance. Nontender. Wound is located over the lateral aspect of the right fifth digit. No diffuse purulence from the wound. She has a chronic wound located over the plantar aspect of the left heel. NEURO: Alert and oriented 4. No focal deficits. Limitations: no limitations Course Vital Signs 10/19/21 16:57 Temperature 98.7 F Pulse Rate 79 Respiratory 20 Rate Blood Pressure 125/68 O2 Sat by Pulse 100 Oximetry Medical Decision Making - Medical Decision Making Based on the patient's presentation and physical exam, and concern for worsening skin infection of the right lower extremity. She has been explained with her medications blood thinners and is concerned for DVT. We will obtain ultrasound of bilateral lower extremities as well as plain film x-rays of the right lower extremity. Basic labs will be obtained. Wound cultures and blood cultures will be obtained. Patient will be administered vancomycin here in the department. She was in agreement this plan. She also be updated on her tetanus. She'll be symptomatically treated with Zofran and Benadryl. She is having systemic symptoms, I did discuss the likelihood of her being admitted. She was in agreement this plan. Vital signs within normal limits. She is due for dialysis tomorrow. Duplex showed no signs of DVT. X-rays reveal no signs of osteomyelitis. There is soft tissue swelling. Laboratory studies are remarkable for elevated BUN/creatinine the setting of ESRD on hemodialysis. Lactic acid is within normal limits.Remainder of the labs are unremarkable. On reevaluation, did discuss admission versus discharge home. I did do believe that she does have a chronic history of diabetes, as well as some mild systemic signs of nausea and vomiting I believe it is best to keep her overnight for IV antibiotics. She was in agreement this plan. We will consult nephrology to evaluate for dialysis tomorrow if needed. I spoke with the admitting team,[facility] who is covering for Dr. rangel's group. Dr. barnes accepted the admission. - Lab Data Result diagrams: 10/19/21 18:03 10/19/21 18:03 Lab Results 10/19/21 10/19/21 10/19/21 Range/Units 18:03 18:03 18:03 WBC 9.1 (3.8-10.6) k/uL RBC 4.03 (3.80-5.40) m/uL Hgb 11.8 (11.4-16.0) gm/dL Hct 38.1 (34.0-46.0) % MCV 94.6 (80.0-100.0) fL MCH 29.2 (25.0-35.0) pg MCHC 30.8 L (31.0-37.0) g/dL RDW 14.3 (11.5-15.5) % Plt Count 163 (150-450) k/uL MPV 8.1 Neutrophils % 82 % Lymphocytes % 11 % Monocytes % 4 % Eosinophils % 1 % Basophils % 0 % Neutrophils # 7.5 (1.3-7.7) k/uL Lymphocytes # 1.0 (1.0-4.8) k/uL Monocytes # 0.4 (0-1.0) k/uL Eosinophils # 0.1 (0-0.7) k/uL Basophils # 0.0 (0-0.2) k/uL Sodium 136 L (137-145) mmol/L Potassium 4.0 (3.5-5.1) mmol/L Chloride 93 L (98-107) mmol/L Carbon Dioxide 29 (22-30) mmol/L Anion Gap 14 mmol/L BUN 41 H (7-17) mg/dL Creatinine 6.04 H (0.52-1.04) mg/dL Est GFR (CKD-EPI)AfAm 8 (>60 ml/min/1.73 sqM) Est GFR (CKD-EPI)NonAf 7 (>60 ml/min/1.73 sqM) Glucose 155 H (74-99) mg/dL Plasma Lactic Acid Jamar 1.4 (0.7-2.0) mmol/L Calcium 9.2 (8.4-10.2) mg/dL Total Bilirubin 0.7 (0.2-1.3) mg/dL AST 15 (14-36) U/L ALT 9 (4-34) U/L Alkaline Phosphatase 91 (38-126) U/L Total Protein 7.0 (6.3-8.2) g/dL Albumin 3.8 (3.5-5.0) g/dL Disposition Clinical Impression: Cellulitis, Nausea and vomiting Disposition: ADMITTED IP TO THIS HOSP Condition: Stable Referrals: Karen Anderson MD [Primary Care Provider] - 1-2 days Time of Disposition: 19:40
[2021-10-19] MEDS ORDERED: ONDANSETRON 4 MG/2 ML VIAL IVP PRN (20:00)
[2021-10-19] MEDS ORDERED: NALOXONE 0.4 MG/ML 1 ML VIAL IV PRN (20:00)
[2021-10-19] MEDS: APIXABAN 2.5 MG TABLET PO SCH (22:00)
[2021-10-19 23:08] LABS: Glucose,Whole Blood 207 mg/dL (70-110)
[2021-10-20 06:32] LABS: African American GFR (CKD) 6 (>60 ml/min/1.73 sqM); Anion Gap 10 mmol/L; Blood Urea Nitrogen 50 mg/dL (7-17); Calcium 8.3 mg/dL (8.4-10.2); Carbon Dioxide 27 mmol/L (22-30); Chloride 99 mmol/L (98-107); Glucose 146 mg/dL (74-99); Non-African American GFR(CKD) 6 (>60 ml/min/1.73 sqM); Potassium 3.8 mmol/L (3.5-5.1); Sodium 136 mmol/L (137-145)
[2021-10-20 07:52] LABS: Glucose,Whole Blood 141 mg/dL (70-110)
[2021-10-20 09:43] LABS: Basophils # (A) 0.02 X 10*3/uL (0.00-0.10); Basophils % (A) 0.3 %; Eosinophils # (A) 0.11 X 10*3/uL (0.04-0.35); Eosinophils % (A) 1.7 %; HCT 33.6 % (37.2-46.3); HGB 10.3 g/dL (12.0-15.0); Immature Grans, Automated 0.8 %; Lymphocytes # (A) 0.57 X 10*3/uL (0.90-5.00); Lymphocytes % (A) 8.8 %; MCH 29.3 pg (27.0-32.0); MCHC 30.7 g/dL (32.0-37.0); MCV 95.7 fL (80.0-97.0); Mean Platelet Volume 10.8 fL (9.5-12.2); Monocytes # (A) 0.47 X 10*3/uL (0.20-1.00); Monocytes % (A) 7.2 %; NRBC Per 100 WBC 0 /100 WBCS (0.0-0.0); Neutrophils # (A) 5.28 X 10*3/uL (1.80-7.70); Neutrophils % (A) 81.2 %; Platelet Count 133 X 10*3/uL (140-440); RBC 3.51 X 10*6/uL (4.10-5.20); RDW 14.2 % (11.5-14.5)
--- NOTE | 2021-10-20 09:51 | P.NPCON ---
History of Present Illness - Reason for Consult end stage renal disease - History of Present Illness Reason for consultation: End-stage renal disease History of present illness: Patient is a 70-year-old female seen in renal consultation for end-stage renal disease. She is maintained on hemodialysis on Saturday and Saturday schedule via AV fistula. Last hemodialysis was on Saturday. Denies chest pain or shortness of breath. Patient states she was following and wound care for left foot wound which has been healing well. However she noticed redness in the right lower extremity and was advised to come to the hospital by the home care nurse. She's currently being treated with IV vancomycin for cellulitis. No vomiting or diarrhea. No fever or chills. Oral intake has been good. Patient has long-standing history of diabetes mellitus. No other complaints at this time. She denies any drainage from the lower extremity. Vital signs are stable. General: Awake. No acute distress. HEENT: Head exam is unremarkable. LUNGS: Breath sounds decreased. HEART: Rate and Rhythm are regular. ABDOMEN: Soft, no distention. EXTREMITITES: Trace edema. Chronic changes noted. Right lower extremity erythema noted with markings. Past Medical History Past Medical History: Heart Failure, Diabetes Mellitus, Deep Vein Thrombosis (DVT), GERD/Reflux, Hyperlipidemia, Hypertension, Osteoarthritis (OA), Renal Disease, Skin Disorder, Vascular Disorder, Vascular Disorder Additional Past Medical History / Comment(s): 2018 respiratory failure with coma/trach/vent, NIDDM type II, neuropathy bilateral feet, DVT R leg, PVD, CKD stage III/has L arm AV fistula with past dialysis, chronic anemia, pt believes she has had gout, PVD, current wound L heel/toes, past decub coccyx/R buttock, cellulitis R leg, osteomylitis R foot/toes, constipation/diverticular disease, bilateral tinnitis, R graft for hemodialysis History of Any Multi-Drug Resistant Organisms: MRSA Date of last positivie culture/infection: 01/25/19 MDRO Source:: FOOT Past Surgical History: Appendectomy, Cholecystectomy, Orthopedic Surgery Additional Past Surgical History / Comment(s): 11/25/19 ligation branches L upper extremity fistula, 07/2019 L arm A/V fistula, partial amputation R 5th/3rd toe, bilateral cataracts/lens/RK, ovarian cystectomy, left upper extremity 1st Stage Vein procedure. Fistula procedure done on 04/15/20. Past Anesthesia/Blood Transfusion Reactions: No Reported Reaction Additional Past Anesthesia/Blood Transfusion Reaction / Comment(s): clausterphobia Past Psychological History: No Psychological Hx Reported Additional Psychological History / Comment(s): Pt resides at [facility]. She states when feeling well, she can transfer self to wheelchair. She is occasionally incontinent of urine. She doesn't have a history of alcohol use. 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 No international travel. no experience. Has her pet cat, Guille was given away when she lost her apt. Has her pet cat, Guille was given away when she lost her apt. Smoking Status: Former smoker Past Alcohol Use History: None Reported Additional Past Alcohol Use History / Comment(s): started smoking age 20 (1970) and quit 1990, smoked 1 ppd Past Drug Use History: None Reported Additional Drug Use History / Comment(s): denies use - Past Family History Father Additional Family Medical History / Comment(s): ALCOHOLIC Mother Family Medical History: Cancer, CVA/TIA, Diabetes Mellitus, Myocardial Infarction ([place]) Additional Family Medical History / Comment(s): Colon cancer. Brother(s) Additional Family Medical History / Comment(s): DRUG DEPENDENCY Medications and Allergies Home Medications Medication Instructions Recorded Confirmed Type Apixaban [Eliquis] 2.5 mg PO BID tablet 01/01/20 10/19/21 Rx Aspirin 81 mg PO DAILY 03/07/20 10/19/21 History Calcium Acetate [Phoslo] 1,334 mg PO TID-W/MEALS 12/28/20 10/19/21 History Insulin Aspart [NovoLOG Flexpen] 12 units SQ AC-BRKFST 12/28/20 10/19/21 History Insulin Glargine,Hum.rec.anlog 38 unit SQ W/LUNCH 12/28/20 10/19/21 History [Basaglar Kwikpen U-100] Cholecalciferol [Vitamin D3 (25 75 mcg PO DAILY 05/16/21 10/19/21 History Mcg = 1000 Iu)] Insulin Aspart [NovoLOG Flexpen] 15 units SQ AC-BID@1300,1700 05/16/21 10/19/21 History allopurinoL 100 mg PO DAILY 10/19/21 10/19/21 History Allergies Allergy/AdvReac Type Severity Reaction Status Date / Time Penicillins Allergy Severe Rash/Hives, Verified 10/19/21 20:30 Itching simvastatin [From Zocor] AdvReac Severe constipation, Verified 10/19/21 20:30 dry cough pregabalin [From Lyrica] AdvReac Unknown Verified 10/19/21 20:30 tide laundry detergent Allergy Itching Uncoded 05/16/21 20:36 Physical Exam Vitals: Vital Signs Temp Pulse Pulse Resp BP BP BP 10/20/21 07:00 98 F 67 16 114/60 10/20/21 03:49 98.1 F 64 16 122/63 10/20/21 02:00 16 10/20/21 00:36 97.4 F L 67 16 141/79 10/19/21 22:00 81 18 125/105 10/19/21 16:57 98.7 F 79 20 125/68 Pulse Ox 10/20/21 07:00 97 10/20/21 03:49 95 10/20/21 02:00 10/20/21 00:36 97 10/19/21 22:00 93 L 10/19/21 16:57 100 Intake and Output 10/19/21 10/20/21 10/20/21 22:59 06:59 14:59 Other: Voiding Method Diaper # Voids 1 1 Weight 117.934 kg Results - Lab Results Most recent lab results Calcium 8.3 mg/dL (8.4-10.2) L 10/20/21 05:44 10/20/21 05:44 10/20/21 05:44 Assessment and Plan Plan: assessment: 1. End-stage renal disease maintained on hemodialysis on Saturday was a Saturday s chedule. AV fistula. 2. Right lower base cellulitis on antibiotics. 3. Chronic kidney disease mineral bone disease maintained on PhosLo outpatient. 4. Diabetes mellitus. 5. Anemia of chronic kidney disease. Rule out iron deficiency. Plan: Hemodialysis today. Check phosphorus level. Resume PhosLo. Monitor vancomycin levels. Dose to be adjusted for renal function. Check iron studies. Thank you for the consultation. I will continue to follow the patient with you during her hospital stay.
[2021-10-20] MEDS: APIXABAN 2.5 MG TABLET PO SCH ×2 (09:52→20:37)
[2021-10-20 11:50] LABS: Glucose,Whole Blood 172 mg/dL (70-110)
[2021-10-20] MEDS ORDERED: VANCOMYCIN 1,750 MG in SODIUM CHLORIDE 0.9% 500 ML 500 ML IVPB ONE (12:00)
[2021-10-20] MEDS: CALCIUM ACETATE 667 MG TAB PO SCH ×2 (13:37→19:25)
[2021-10-20 15:40] LABS: % Iron Saturation 24.04 (12.00-45.00); Phosphorus 6.5 mg/dL (2.4-5.1)
[2021-10-20 16:32] LABS: Glucose,Whole Blood 152 mg/dL (70-110)
--- NOTE | 2021-10-20 18:44 | P.HPIM ---
History of Present Illness H&P Date: 10/20/21 Chief Complaint: Skin/Abscess/Foreign Body 70-year-old female with past medical history remarkable for diabetes, ESRD on hemodialysis, heart failure, DVTs on Eliquis has been noncompliant, chronic lower extremity wounds who presents in the department complaining of worsening redness of her right lower extremity. Patient is concerned for worsening infection. She does have a new were right fifth digit wound with erythema spreading up her right seo almost to the knee. There is nontender. She is also having some intermittent nausea and vomiting. No fevers. No sensory deficits that are new. No weakness. Has not been taking all of her medications. Presents for further evaluation over concern for worsening infection. Has not missed any dialysis runs. Review of Systems REVIEW OF SYSTEMS: CONSTITUTIONAL: No fever, no malaise, no fatigue. HEENT: No recent visual problems or hearing problems. Denied any sore throat. CARDIOVASCULAR: No chest pain, orthopnea, PND, no palpitations, no syncope. PULMONARY: No shortness of breath, no cough, no hemoptysis. GASTROINTESTINAL: No diarrhea, no nausea, no vomiting, no abdominal pain. NEUROLOGICAL: No headaches, no weakness, no numbness. HEMATOLOGICAL: Denies any bleeding or petechiae. GENITOURINARY: Denies any burning micturition, frequency, or urgency. MUSCULOSKELETAL/RHEUMATOLOGICAL: Denies any joint pain, swelling, or any muscle pain. ENDOCRINE: Denies any polyuria or polydipsia. The rest of the 14-point review of systems is negative. Past Medical History Past Medical History: Heart Failure, Diabetes Mellitus, Deep Vein Thrombosis (DVT), GERD/Reflux, Hyperlipidemia, Hypertension, Osteoarthritis (OA), Renal Disease, Skin Disorder, Vascular Disorder, Vascular Disorder Additional Past Medical History / Comment(s): 2018 respiratory failure with coma/trach/vent, NIDDM type II, neuropathy bilateral feet, DVT R leg, PVD, CKD stage III/has L arm AV fistula with past dialysis, chronic anemia, pt believes she has had gout, PVD, current wound L heel/toes, past decub coccyx/R buttock, cellulitis R leg, osteomylitis R foot/toes, constipation/diverticular disease, bilateral tinnitis, R graft for hemodialysis History of Any Multi-Drug Resistant Organisms: MRSA Date of last positivie culture/infection: 01/25/19 MDRO Source:: FOOT Past Surgical History: Appendectomy, Cholecystectomy, Orthopedic Surgery Additional Past Surgical History / Comment(s): 11/25/19 ligation branches L upper extremity fistula, 07/2019 L arm A/V fistula, partial amputation R 5th/3rd toe, bilateral cataracts/lens/RK, ovarian cystectomy, left upper extremity 1st Stage Vein procedure. Fistula procedure done on 04/15/20. Past Anesthesia/Blood Transfusion Reactions: No Reported Reaction Additional Past Anesthesia/Blood Transfusion Reaction / Comment(s): clausterphobia Past Psychological History: No Psychological Hx Reported Additional Psychological History / Comment(s): Pt resides at [facility]. She states when feeling well, she can transfer self to wheelchair. She is occasionally incontinent of urine. She doesn't have a history of alcohol use. 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 No international travel. no experience. Has her pet cat, Guille was given away when she lost her apt. Has her pet cat, Guille was given away when she lost her apt. Smoking Status: Former smoker Past Alcohol Use History: None Reported Additional Past Alcohol Use History / Comment(s): started smoking age 20 (1970) and quit 1990, smoked 1 ppd Past Drug Use History: None Reported Additional Drug Use History / Comment(s): denies use - Past Family History Father Additional Family Medical History / Comment(s): ALCOHOLIC Mother Family Medical History: Cancer, CVA/TIA, Diabetes Mellitus, Myocardial Infarction ([place]) Additional Family Medical History / Comment(s): Colon cancer. Brother(s) Additional Family Medical History / Comment(s): DRUG DEPENDENCY Medications and Allergies Home Medications Medication Instructions Recorded Confirmed Type Apixaban [Eliquis] 2.5 mg PO BID tablet 01/01/20 10/19/21 Rx Aspirin 81 mg PO DAILY 03/07/20 10/19/21 History Calcium Acetate [Phoslo] 1,334 mg PO TID-W/MEALS 12/28/20 10/19/21 History Insulin Aspart [NovoLOG Flexpen] 12 units SQ AC-BRKFST 12/28/20 10/19/21 History Insulin Glargine,Hum.rec.anlog 38 unit SQ W/LUNCH 12/28/20 10/19/21 History [Basaglar Kwikpen U-100] Cholecalciferol [Vitamin D3 (25 75 mcg PO DAILY 05/16/21 10/19/21 History Mcg = 1000 Iu)] Insulin Aspart [NovoLOG Flexpen] 15 units SQ AC-BID@1300,1700 05/16/21 10/19/21 History allopurinoL 100 mg PO DAILY 10/19/21 10/19/21 History Allergies Allergy/AdvReac Type Severity Reaction Status Date / Time Penicillins Allergy Severe Rash/Hives, Verified 10/19/21 20:30 Itching simvastatin [From Zocor] AdvReac Severe constipation, Verified 10/19/21 20:30 dry cough pregabalin [From Lyrica] AdvReac Unknown Verified 10/19/21 20:30 tide laundry detergent Allergy Itching Uncoded 05/16/21 20:36 Physical Exam Vitals: Vital Signs Temp Pulse Pulse Resp BP BP BP 10/20/21 08:00 67 16 10/20/21 07:00 98 F 67 16 114/60 10/20/21 03:49 98.1 F 64 16 122/63 10/20/21 02:00 16 10/20/21 00:36 97.4 F L 67 16 141/79 10/19/21 22:00 81 18 125/105 10/19/21 16:57 98.7 F 79 20 125/68 Pulse Ox 10/20/21 08:00 10/20/21 07:00 97 10/20/21 03:49 95 10/20/21 02:00 10/20/21 00:36 97 10/19/21 22:00 93 L 10/19/21 16:57 100 Intake and Output 10/19/21 10/20/21 10/20/21 22:59 06:59 14:59 Intake Total 118 Balance 118 Intake: Oral 118 Other: Voiding Method Diaper Diaper # Voids 1 1 Weight 117.934 kg PHYSICAL EXAMINATION: GENERAL: The patient is alert and oriented x3, not in any acute distress. Well developed, well nourished. HEENT: Pupils are round and equally reacting to light. EOMI. No scleral icterus. No conjunctival pallor. Normocephalic, atraumatic. No pharyngeal erythema. No thyromegaly. CARDIOVASCULAR: S1 and S2 present. No murmurs, rubs, or gallops. PULMONARY: Chest is clear to auscultation, no wheezing or crackles. ABDOMEN: Soft, nontender, nondistended, normoactive bowel sounds. No palpable organomegaly. MUSCULOSKELETAL: No joint swelling or deformity. EXTREMITIES: No cyanosis, clubbing, or pedal edema. NEUROLOGICAL: Gross neurological examination did not reveal any focal deficits. SKIN: No rashes. Results CBC & Chem 7: 10/20/21 05:44 10/20/21 05:44 Labs: Abnormal Lab Results - Last 24 Hours (Table) 10/19/21 10/19/21 10/19/21 Range/Units 18:03 18:03 23:06 RBC (4.10-5.20) X 10*6/uL Hgb (12.0-15.0) g/dL Hct (37.2-46.3) % MCHC 30.8 L (31.0-37.0) g/dL Plt Count (140-440) X 10*3/uL Immature Gran # (0.00-0.04) X 10*3/uL Lymphocytes # (0.90-5.00) X 10*3/uL Sodium 136 L (137-145) mmol/L Chloride 93 L (98-107) mmol/L BUN 41 H (7-17) mg/dL Creatinine 6.04 H (0.52-1.04) mg/dL Glucose 155 H (74-99) mg/dL POC Glucose (mg/dL) 207 H (70-110) mg/dL Calcium (8.4-10.2) mg/dL 10/20/21 10/20/21 10/20/21 Range/Units 05:44 05:44 07:32 RBC 3.51 L (4.10-5.20) X 10*6/uL Hgb 10.3 L (12.0-15.0) g/dL Hct 33.6 L (37.2-46.3) % MCHC 30.7 L (31.0-37.0) g/dL Plt Count 133 L (140-440) X 10*3/uL Immature Gran # 0.05 H (0.00-0.04) X 10*3/uL Lymphocytes # 0.57 L (0.90-5.00) X 10*3/uL Sodium 136 L (137-145) mmol/L Chloride (98-107) mmol/L BUN 50 H (7-17) mg/dL Creatinine 6.95 H (0.52-1.04) mg/dL Glucose 146 H (74-99) mg/dL POC Glucose (mg/dL) 141 H (70-110) mg/dL Calcium 8.3 L (8.4-10.2) mg/dL 10/20/21 Range/Units 11:48 RBC (4.10-5.20) X 10*6/uL Hgb (12.0-15.0) g/dL Hct (37.2-46.3) % MCHC (31.0-37.0) g/dL Plt Count (140-440) X 10*3/uL Immature Gran # (0.00-0.04) X 10*3/uL Lymphocytes # (0.90-5.00) X 10*3/uL Sodium (137-145) mmol/L Chloride (98-107) mmol/L BUN (7-17) mg/dL Creatinine (0.52-1.04) mg/dL Glucose (74-99) mg/dL POC Glucose (mg/dL) 172 H (70-110) mg/dL Calcium (8.4-10.2) mg/dL Microbiology - Last 24 Hours (Table) 10/19/21 18:03 Gram Stain - Preliminary Toe - Right Fifth Wound Culture - Preliminary 10/19/21 18:03 Anaerobic Culture - Preliminary Toe - Right Fifth Thrombosis Risk Factor Assmnt - Choose All That Apply Any of the Below Risk Factors Present?: Yes Each Factor Represents 1 point: Obesity (BMI >25), Swollen legs (current) Other Risk Factors: Yes Each Risk Factor Represents 2 Points: Age 61-74 years Each Risk Factor Represents 3 Points: History of DVT/PE Thrombosis Risk Factor Assessment Total Risk Factor Score: 7 Thrombosis Risk Factor Assessment Level: High Risk Assessment and Plan Assessment: 1. Cellulitis right lower extremity 2. End-stage renal disease/HD 3. Intractable nausea and vomiting 4. Diabetes mellitus 5. Hypertension 6. Hyperlipidemia 7. History of DVT Patient has been placed on IV antibiotics in form of vancomycin with pharmacy dosing service; we will monitor CBC, CRP and pro-calcitonin; consult ID for further recommendations on IV antibiotics - Nephrology is consulted and patient is to undergo hemodialysis as scheduled Check phosphorus level. Resume PhosLo. Monitor vancomycin levels. Dose to be adjusted for renal function. Check iron studies.
[2021-10-20 20:46] LABS: Glucose,Whole Blood 180 mg/dL (70-110)
--- NOTE | 2021-10-20 22:39 | P.CONS ---
History of Present Illness - Reason for Consult Consult date: 10/20/21 Right lower extremity cellulitis Requesting physician: Rory Santoyo - Chief Complaint Right leg swelling and redness x 2 days - History of Present Illness Patient is 70-year-old female with a past medical history significant for end-stage renal disease on hemodialysis, the patient also have a nonhealing wound on the right foot lateral border at the base of the fifth toe which apparently was recently debrided by Al[facility] at [facility] patient mention she was evaluated by her home care nurse yesterday and she was noted to have significant right lower extremity swelling and redness with concern for cellulitis patient was advised to go to the hospital she was complaining of pain to the right leg more of a dull aching at times sharp intensity 5-6 out of 10 head no radiation with associated swelling redness patient denies significant drainage from the right foot lateral border wound on presentation to the hospital the patient was afebrile no fever have been recorded subsequently patient did have a normal white count kidney function was elevated patient did have local cultures obtained she was started on vancomycin infectious disease was consulted for further management of antibiotic therapy Review of Systems Positive point has been mentioned in the HPI rest of the systems are negative Past Medical History Past Medical History: Heart Failure, Diabetes Mellitus, Deep Vein Thrombosis (DVT), GERD/Reflux, Hyperlipidemia, Hypertension, Osteoarthritis (OA), Renal D isease, Skin Disorder, Vascular Disorder, Vascular Disorder Additional Past Medical History / Comment(s): 2017 respiratory failure with coma/trach/vent, NIDDM type II, neuropathy bilateral feet, DVT R leg, PVD, CKD stage III/has L arm AV fistula with past dialysis, chronic anemia, pt believes she has had gout, PVD, current wound L heel/toes, past decub coccyx/R buttock, c ellulitis R leg, osteomylitis R foot/toes, constipation/diverticular disease, bilateral tinnitis, R graft for hemodialysis History of Any Multi-Drug Resistant Organisms: MRSA Year Discovered:: 01/25/19 MDRO Source:: FOOT Past Surgical History: Appendectomy, Cholecystectomy, Orthopedic Surgery Additional Past Surgical History / Comment(s): 11/25/19 ligation branches L upper extremity fistula, 07/2019 L arm A/V fistula, partial amputation R 5th/3rd toe, bilateral cataracts/lens/RK, ovarian cystectomy, left upper extremity 1st Stage Vein procedure. Fistula procedure done on 04/15/20. Past Anesthesia/Blood Transfusion Reactions: No Reported Reaction Additional Past Anesthesia/Blood Transfusion Reaction / Comm: clausterphobia Past Psychological History: No Psychological Hx Reported Additional Psychological History / Comment(s): Pt resides at [facility]. She states when feeling well, she can transfer self to wheelchair. She is occasionally incontinent of urine. She doesn't have a history of alcohol use. 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 No international travel. no experience. Has her pet cat, Guille was given away when she lost her apt. Has her pet cat, Guille was given away when she lost her apt. Smoking Status: Former smoker Past Alcohol Use History: None Reported Additional Past Alcohol Use History / Comment(s): started smoking age 20 (1970) and quit 1990, smoked 1 ppd Past Drug Use History: None Reported Additional Drug Use History / Comment(s): denies use - Past Family History Father Additional Family Medical History / Comment(s): ALCOHOLIC Mother Family Medical History: Cancer, CVA/TIA, Diabetes Mellitus, Myocardial Infarc tion (NH) Additional Family Medical History / Comment(s): Colon cancer. Brother(s) Additional Family Medical History / Comment(s): DRUG DEPENDENCY Medications and Allergies Home Medications Medication Instructions Recorded Confirmed Type Apixaban [Eliquis] 2.5 mg PO BID tablet 01/01/20 10/19/21 Rx Aspirin 81 mg PO DAILY 03/07/20 10/19/21 History Calcium Acetate [Phoslo] 1,334 mg PO TID-W/MEALS 12/28/20 10/19/21 History Insulin Aspart [NovoLOG Flexpen] 12 units SQ AC-BRKFST 12/28/20 10/19/21 History Insulin Glargine,Hum.rec.anlog 38 unit SQ W/LUNCH 12/28/20 10/19/21 History [Basaglar Kwikpen U-100] Cholecalciferol [Vitamin D3 (25 75 mcg PO DAILY 05/16/21 10/19/21 History Mcg = 1000 Iu)] Insulin Aspart [NovoLOG Flexpen] 15 units SQ AC-BID@1300,1700 05/16/21 10/19/21 History allopurinoL 100 mg PO DAILY 10/19/21 10/19/21 History Allergies Allergy/AdvReac Type Severity Reaction Status Date / Time Penicillins Allergy Severe Rash/Hives, Verified 10/19/21 20:30 Itching simvastatin [From Zocor] AdvReac Severe constipation, Verified 10/19/21 20:30 dry cough pregabalin [From Lyrica] AdvReac Unknown Verified 10/19/21 20:30 tide laundry detergent Allergy Itching Uncoded 05/16/21 20:36 Physical Exam Vitals: Vital Signs Temp Pulse Pulse Resp BP BP BP 10/20/21 14:14 97.9 F 89 16 135/71 10/20/21 08:00 67 16 10/20/21 07:00 98 F 67 16 114/60 10/20/21 03:49 98.1 F 64 16 122/63 10/20/21 02:00 16 10/20/21 00:36 97.4 F L 67 16 141/79 10/19/21 22:00 81 18 125/105 10/19/21 16:57 98.7 F 79 20 125/68 Pulse Ox 10/20/21 14:14 94 L 10/20/21 08:00 10/20/21 07:00 97 10/20/21 03:49 95 10/20/21 02:00 10/20/21 00:36 97 10/19/21 22:00 93 L 10/19/21 16:57 100 Intake and Output 10/20/21 10/20/21 10/20/21 06:59 14:59 22:59 Intake Total 236 Balance 236 Intake: Oral 236 Other: Voiding Method Diaper Diaper # Voids 1 # Bowel Movements 0 GENERAL DESCRIPTION: Elderly female lying in bed, no distress. No tachypnea or accessory muscle of respiration use. HEENT: Shows Pallor , no scleral icterus. Oral mucous membrane is dry. No pharyngeal erythema or thrush NECK: Trachea central, no thyromegaly. LUNGS: Unlabored breathing. Clear to auscultation anteriorly. No wheeze or crackle. HEART: S1, S2, regular rate and rhythm. No loud murmur ABDOMEN: Soft, no tenderness , guarding or rigidity, no organomegaly EXTREMITIES: Right lower extremity with some swelling and minimal redness wound on the right foot lateral border with minimal slough no foul-smelling drainage. SKIN: No rash, no masses palpable. NEUROLOGICAL: The patient is awake, alert, oriented x3, mood and affect normal. Results CBC & Chem 7: 10/21/21 06:18 10/21/21 06:18 Labs: Abnormal Lab Results - Last 24 Hours (Table) 10/19/21 10/19/21 10/19/21 Range/Units 18:03 18:03 23:06 RBC (4.10-5.20) X 10*6/uL Hgb (12.0-15.0) g/dL Hct (37.2-46.3) % MCHC 30.8 L (31.0-37.0) g/dL Plt Count (140-440) X 10*3/uL Immature Gran # (0.00-0.04) X 10*3/uL Lymphocytes # (0.90-5.00) X 10*3/uL Sodium 136 L (137-145) mmol/L Chloride 93 L (98-107) mmol/L BUN 41 H (7-17) mg/dL Creatinine 6.04 H (0.52-1.04) mg/dL Glucose 155 H (74-99) mg/dL POC Glucose (mg/dL) 207 H (70-110) mg/dL Calcium (8.4-10.2) mg/dL Phosphorus (2.4-5.1) mg/dL Iron (50-170) ug/dL TIBC (228-460) ug/dL Transferrin (204.0-354.0) mg/dL Ferritin (10.0-291.0) ng/mL 10/20/21 10/20/21 10/20/21 Range/Units 05:44 05:44 05:44 RBC 3.51 L (4.10-5.20) X 10*6/uL Hgb 10.3 L (12.0-15.0) g/dL Hct 33.6 L (37.2-46.3) % MCHC 30.7 L (31.0-37.0) g/dL Plt Count 133 L (140-440) X 10*3/uL Immature Gran # 0.05 H (0.00-0.04) X 10*3/uL Lymphocytes # 0.57 L (0.90-5.00) X 10*3/uL Sodium 136 L (137-145) mmol/L Chloride (98-107) mmol/L BUN 50 H (7-17) mg/dL Creatinine 6.95 H (0.52-1.04) mg/dL Glucose 146 H (74-99) mg/dL POC Glucose (mg/dL) (70-110) mg/dL Calcium 8.3 L (8.4-10.2) mg/dL Phosphorus 6.5 H (2.4-5.1) mg/dL Iron 41 L (50-170) ug/dL TIBC 172 L (228-460) ug/dL Transferrin 123.0 L (204.0-354.0) mg/dL Ferritin 1266.0 H (10.0-291.0) ng/mL 10/20/21 10/20/21 Range/Units 07:32 11:48 RBC (4.10-5.20) X 10*6/uL Hgb (12.0-15.0) g/dL Hct (37.2-46.3) % MCHC (31.0-37.0) g/dL Plt Count (140-440) X 10*3/uL Immature Gran # (0.00-0.04) X 10*3/uL Lymphocytes # (0.90-5.00) X 10*3/uL Sodium (137-145) mmol/L Chloride (98-107) mmol/L BUN (7-17) mg/dL Creatinine (0.52-1.04) mg/dL Glucose (74-99) mg/dL POC Glucose (mg/dL) 141 H 172 H (70-110) mg/dL Calcium (8.4-10.2) mg/dL Phosphorus (2.4-5.1) mg/dL Iron (50-170) ug/dL TIBC (228-460) ug/dL Transferrin (204.0-354.0) mg/dL Ferritin (10.0-291.0) ng/mL Microbiology - Last 24 Hours (Table) 10/19/21 18:03 Gram Stain - Preliminary Toe - Right Fifth Wound Culture - Preliminary 10/19/21 18:03 Anaerobic Culture - Preliminary Toe - Right Fifth Assessment and Plan (1) Cellulitis Current Visit: Yes Status: Acute Code(s): L03.90 - CELLULITIS, UNSPECIFIED SNOMED Code(s): 933895918 Plan: 1patient presented to hospital with right lower extremity cellulitis in this patient who do have a right foot lateral border wound which was recently debrided and likely the source of this cellulitis with a possible gram-positive skin ronit however gram-negative infection not entirely excluded. 2penicillin allergy that limit the number of antibiotics safe to use. 3continue the vancomycin, , in view of the clinical response 4local wound care to the right foot lateral border wound with the Medih[facility] followed by moist dressing change daily. We will follow on clinical condition and cultures to further adjust medication if needed Thank you for this consultation will follow this patient along with you Time with Patient: Greater than 30
[2021-10-21 06:41] LABS: African American GFR (CKD) 7 (>60 ml/min/1.73 sqM); Anion Gap 8 mmol/L; Blood Urea Nitrogen 44 mg/dL (7-17); Calcium 8.2 mg/dL (8.4-10.2); Carbon Dioxide 31 mmol/L (22-30); Chloride 95 mmol/L (98-107); Glucose 140 mg/dL (74-99); Non-African American GFR(CKD) 6 (>60 ml/min/1.73 sqM); Potassium 3.7 mmol/L (3.5-5.1); Sodium 134 mmol/L (137-145)
[2021-10-21 06:46] LABS: Vancomycin,Random 24.4 ug/mL
[2021-10-21] MEDS: APIXABAN 2.5 MG TABLET PO SCH ×2 (07:55→21:48)
[2021-10-21] MEDS: CALCIUM ACETATE 667 MG TAB PO SCH ×3 (07:55→18:05)
[2021-10-21 07:59] LABS: Glucose,Whole Blood 175 mg/dL (70-110)
[2021-10-21 08:47] LABS: Basophils # (A) 0.01 X 10*3/uL (0.00-0.10); Basophils % (A) 0.2 %; Eosinophils # (A) 0.08 X 10*3/uL (0.04-0.35); Eosinophils % (A) 1.4 %; HCT 33.9 % (37.2-46.3); HGB 10.4 g/dL (12.0-15.0); Immature Grans, Automated 0.9 %; Lymphocytes # (A) 0.52 X 10*3/uL (0.90-5.00); Lymphocytes % (A) 9.1 %; MCHC 30.7 g/dL (32.0-37.0); MCV 94.4 fL (80.0-97.0); Mean Platelet Volume 10.7 fL (9.5-12.2); Monocytes # (A) 0.38 X 10*3/uL (0.20-1.00); Monocytes % (A) 6.7 %; NRBC Per 100 WBC 0 /100 WBCS (0.0-0.0); Neutrophils # (A) 4.67 X 10*3/uL (1.80-7.70); Neutrophils % (A) 81.7 %; Platelet Count 142 X 10*3/uL (140-440); RBC 3.59 X 10*6/uL (4.10-5.20); RDW 13.9 % (11.5-14.5); WBC 5.71 X 10*3/uL (4.50-10.00)
[2021-10-21] MEDS ORDERED: DEXTROSE 50% SYRINGE 50 ML IVP PRN ×2 (10:51)
[2021-10-21 11:55] LABS: Glucose,Whole Blood 314 mg/dL (70-110)
[2021-10-21] MEDS: INSULIN ASPART (NovoLOG) 100 UNIT/ML VIAL SQ SCH ×6 (12:56→21:48)
[2021-10-21] MEDS: INSULIN DETEMIR (LEVEMIR) 100 UNIT/ML SYR SQ SCH (13:00)
--- NOTE | 2021-10-21 13:57 | P.PN ---
Subjective Progress Note Date: 10/21/21 Principal diagnosis: Right lower extremity cellulitis Patient is a 70 year old female with a past medical history significant for end-stage renal disease on dialysis, patient did have a wound on the right foot lateral border which was recently debrided at wound care sub sequently presented to hospital with right lower extremity cellulitis. On today's evaluation that is 10/21/2021, the patient denies having any fever or any chills, the patient right leg swelling redness slightly decreased, denies any chest pain or shortness of breath or cough no abdominal pain no diarrhea Objective - Vital Signs Vital signs: Vital Signs Temp 98.0 F 10/21/21 07:00 Pulse 68 10/21/21 07:00 Resp 17 10/21/21 07:00 BP 115/55 10/21/21 07:00 Pulse Ox 97 10/21/21 07:00 FiO2 Intake & Output 10/20/21 10/21/21 10/21/21 18:59 06:59 18:59 Intake Total 536 356 Output Total 1999 Balance -1464 356 Intake: Oral 236 356 Hemodialysis 300 Output: Hemodialysis 1999 Other: Voiding Method Diaper Diaper # Voids 1 1 # Bowel Movements 0 1 - Exam GENERAL DESCRIPTION: An elderly female lying in bed in no distress RESPIRATORY SYSTEM: Unlabored breathing , decreased breath sounds at bases HEART: S1 S2 regular rate and rhythm , ABDOMEN: Soft , no tenderness EXTREMITIES: Right foot lateral border wound with minimal slough some swelling redness - Labs CBC & Chem 7: 10/21/21 06:18 10/21/21 06:18 Labs: Abnormal Lab Results - Last 24 Hours (Table) 10/20/21 10/20/21 10/20/21 Range/Units 05:44 16:30 20:45 RBC (4.10-5.20) X 10*6/uL Hgb (12.0-15.0) g/dL Hct (37.2-46.3) % MCHC (32.0-37.0) g/dL Immature Gran # (0.00-0.04) X 10*3/uL Lymphocytes # (0.90-5.00) X 10*3/uL Sodium (137-145) mmol/L Chloride (98-107) mmol/L Carbon Dioxide (22-30) mmol/L BUN (7-17) mg/dL Creatinine (0.52-1.04) mg/dL Glucose (74-99) mg/dL POC Glucose (mg/dL) 152 H 180 H (70-110) mg/dL Calcium (8.4-10.2) mg/dL Phosphorus 6.5 H (2.4-5.1) mg/dL Iron 41 L (50-170) ug/dL TIBC 172 L (228-460) ug/dL Transferrin 123.0 L (204.0-354.0) mg/dL Ferritin 1266.0 H (10.0-291.0) ng/mL 10/21/21 10/21/21 10/21/21 Range/Units 06:18 06:18 07:58 RBC 3.59 L (4.10-5.20) X 10*6/uL Hgb 10.4 L (12.0-15.0) g/dL Hct 33.9 L (37.2-46.3) % MCHC 30.7 L (32.0-37.0) g/dL Immature Gran # 0.05 H (0.00-0.04) X 10*3/uL Lymphocytes # 0.52 L (0.90-5.00) X 10*3/uL Sodium 134 L (137-145) mmol/L Chloride 95 L (98-107) mmol/L Carbon Dioxide 31 H (22-30) mmol/L BUN 44 H (7-17) mg/dL Creatinine 6.63 H (0.52-1.04) mg/dL Glucose 140 H (74-99) mg/dL POC Glucose (mg/dL) 175 H (70-110) mg/dL Calcium 8.2 L (8.4-10.2) mg/dL Phosphorus (2.4-5.1) mg/dL Iron (50-170) ug/dL TIBC (228-460) ug/dL Transferrin (204.0-354.0) mg/dL Ferritin (10.0-291.0) ng/mL 10/21/21 Range/Units 11:54 RBC (4.10-5.20) X 10*6/uL Hgb (12.0-15.0) g/dL Hct (37.2-46.3) % MCHC (32.0-37.0) g/dL Immature Gran # (0.00-0.04) X 10*3/uL Lymphocytes # (0.90-5.00) X 10*3/uL Sodium (137-145) mmol/L Chloride (98-107) mmol/L Carbon Dioxide (22-30) mmol/L BUN (7-17) mg/dL Creatinine (0.52-1.04) mg/dL Glucose (74-99) mg/dL POC Glucose (mg/dL) 314 H (70-110) mg/dL Calcium (8.4-10.2) mg/dL Phosphorus (2.4-5.1) mg/dL Iron (50-170) ug/dL TIBC (228-460) ug/dL Transferrin (204.0-354.0) mg/dL Ferritin (10.0-291.0) ng/mL Microbiology - Last 24 Hours (Table) 10/19/21 18:08 Blood Culture - Final Blood 10/19/21 17:50 Blood Culture - Preliminary Blood No Growth after 24 hours 10/19/21 18:03 Gram Stain - Preliminary Toe - Right Fifth Wound Culture - Preliminary Gram Neg Bacilli Assessment and Plan (1) Cellulitis Current Visit: Yes Status: Acute Code(s): L03.90 - CELLULITIS, UNSPECIFIED SNOMED Code(s): 140146870 Plan: 1patient presented to hospital with right lower extremity cellulitis in this patient who do have a right foot lateral border wound which was recently debrided and likely the source of this cellulitis with a possible gram-positive skin ronit however gram-negative infection not entirely excluded. 2penicillin allergy that limit the number of antibiotics safe to use. 3 local wound care to the right foot lateral [facility] by moist dressing change daily. 4local cultures were growing gram-negative bacilli we will discontinue vancomycin and start the patient on cefepime Time with Patient: Less than 30
[2021-10-21] MEDS: CEFEPIME 1 GM in SODIUM CHLORIDE 0.9% 50 ML IVPB SCH (15:22)
[2021-10-21] MEDS ORDERED: ACETAMINOPHEN TAB 325 MG TAB PO PRN (15:56)
[2021-10-21 17:22] LABS: Glucose,Whole Blood 75 mg/dL (70-110)
[2021-10-21 21:12] LABS: Glucose,Whole Blood 122 mg/dL (70-110)
[2021-10-22 07:43] LABS: Glucose,Whole Blood 117 mg/dL (70-110)
[2021-10-22] MEDS: APIXABAN 2.5 MG TABLET PO SCH ×2 (08:26→20:33)
--- NOTE | 2021-10-22 09:41 | P.PN ---
Subjective patient is seen for follow-up for end-stage renal disease. Maintained on Saturday vent is a Saturday schedule. She was admitted with cellulitis of the right lower extremity. This has currently improved. No significant complaints today. Objective - Vital Signs Vital signs: Vital Signs Temp 98.1 F 10/22/21 07:00 Pulse 60 10/22/21 07:00 Resp 18 10/22/21 07:00 BP 133/72 10/22/21 07:00 Pulse Ox 100 10/22/21 07:00 FiO2 Intake & Output 10/21/21 10/22/21 10/22/21 18:59 06:59 18:59 Intake Total 356 Balance 356 Intake: Oral 356 Other: Voiding Method Diaper Diaper # Voids 1 1 1 # Bowel Movements 1 - Exam awake, comfortable, no acute distress Examination of the heart S1 and S2 [place] examination of the lungs bilateral breath sounds are heard Abdomen is soft nontender Examination of lower extremities shows chronic skin changes but no significant edema noted. erythema in the right leg is decreased [employer] exam grossly intact - Labs CBC & Chem 7: 10/21/21 06:18 10/21/21 06:18 Labs: Abnormal Lab Results - Last 24 Hours (Table) 10/21/21 10/21/21 10/21/21 Range/Units 11:39 11:54 21:10 POC Glucose (mg/dL) 314 H 122 H (70-110) mg/dL Hemoglobin A1c 7.0 H (0.0-6.0) % 10/22/21 Range/Units 07:41 POC Glucose (mg/dL) 117 H (70-110) mg/dL Hemoglobin A1c (0.0-6.0) % Microbiology - Last 24 Hours (Table) 10/19/21 18:03 Anaerobic Culture - Preliminary Toe - Right Fifth 10/19/21 17:50 Blood Culture - Preliminary Blood No Growth after 48 hours 10/19/21 18:03 Gram Stain - Preliminary Toe - Right Fifth Wound Culture - Preliminary Gram Neg Bacilli 10/19/21 18:08 Blood Culture Gram Stain - Preliminary Blood 10/19/21 18:08 Blood Culture - Final Blood Assessment and Plan Assessment: 1. End-stage renal disease on hemodialysis on a Saturday sche raynae 2. Right lower extremity cellulitis maintained on antibiotics 3. Chronic kidney disease mineral bone disorder maintained on PhosLo 4. Type 2 diabetes 5.Anemia of chronic disease Plan: hemodialysis in a.m. Continue antibiotics
[2021-10-22 09:45] LABS: Basophils # (A) 0.02 X 10*3/uL (0.00-0.10); Basophils % (A) 0.5 %; Eosinophils # (A) 0.14 X 10*3/uL (0.04-0.35); Eosinophils % (A) 3.3 %; HCT 34.3 % (37.2-46.3); HGB 10.8 g/dL (12.0-15.0); Immature Grans, Automated 0.9 %; Lymphocytes # (A) 0.63 X 10*3/uL (0.90-5.00); Lymphocytes % (A) 14.9 %; MCHC 31.5 g/dL (32.0-37.0); MCV 95.3 fL (80.0-97.0); Mean Platelet Volume 10.9 fL (9.5-12.2); Monocytes # (A) 0.39 X 10*3/uL (0.20-1.00); Monocytes % (A) 9.2 %; NRBC Per 100 WBC 0 /100 WBCS (0.0-0.0); Neutrophils # (A) 3.02 X 10*3/uL (1.80-7.70); Neutrophils % (A) 71.2 %; Platelet Count 133 X 10*3/uL (140-440); RDW 13.6 % (11.5-14.5); WBC 4.24 X 10*3/uL (4.50-10.00)
[2021-10-22 11:46] LABS: Glucose,Whole Blood 178 mg/dL (70-110)
[2021-10-22] MEDS: INSULIN ASPART (NovoLOG) 100 UNIT/ML VIAL SQ SCH ×7 (11:59→20:32)
[2021-10-22] MEDS: CALCIUM ACETATE 667 MG TAB PO SCH ×3 (11:59→17:28)
[2021-10-22 12:32] LABS: African American GFR (CKD) 5.5 (60.0-200.0); Anion Gap 18.5 mmol/L (10.00-18.00); BUN/Creat Ratio 7.04 Ratio (12.00-20.00); Calcium 8.7 mg/dL (8.7-10.3); Carbon Dioxide 23.7 mmol/L (20.0-27.5); Non-African American GFR(CKD) 4.7 (60.0-200.0); Potassium 4.3 mmol/L (3.5-5.5)
[2021-10-22] MEDS: INSULIN DETEMIR (LEVEMIR) 100 UNIT/ML SYR SQ SCH (12:52)
[2021-10-22 17:22] LABS: Glucose,Whole Blood 122 mg/dL (70-110)
[2021-10-22] MEDS: CEFEPIME 1 GM in SODIUM CHLORIDE 0.9% 50 ML IVPB SCH (17:28)
[2021-10-22 19:57] LABS: Glucose,Whole Blood 140 mg/dL (70-110)
[2021-10-23 07:29] LABS: Glucose,Whole Blood 100 mg/dL (70-110)
[2021-10-23] MEDS: INSULIN ASPART (NovoLOG) 100 UNIT/ML VIAL SQ SCH ×7 (08:02→20:18)
[2021-10-23] MEDS: APIXABAN 2.5 MG TABLET PO SCH ×2 (08:02→20:19)
[2021-10-23] MEDS: CALCIUM ACETATE 667 MG TAB PO SCH ×3 (08:03→20:18)
--- NOTE | 2021-10-23 08:20 | P.PN ---
Subjective Progress Note Date: 10/22/21 Principal diagnosis: Right lower extremity cellulitis Patient is a 70 year old female with a past medical history significant for end-stage renal disease on dialysis, patient did have a wound on the right foot lateral border which was recently debrided at wound care sub sequently presented to hospital with right lower extremity cellulitis. On today's evaluation that is 10/22/2021, the patient remains to be afebrile, the patient right leg swelling redness has slightly decreased in intensity, the patient denies any chest pain or shortness of breath or cough no abdominal pain no diarrhea Objective - Vital Signs Vital signs: Vital Signs Temp 98.1 F 10/22/21 07:00 Pulse 60 10/22/21 07:00 Resp 18 10/22/21 07:00 BP 133/72 10/22/21 07:00 Pulse Ox 100 10/22/21 07:00 FiO2 Intake & Output 10/21/21 10/22/21 10/22/21 18:59 06:59 18:59 Intake Total 356 Balance 356 Intake: Oral 356 Other: Voiding Method Diaper Diaper # Voids 1 1 1 # Bowel Movements 1 - Exam GENERAL DESCRIPTION: An elderly female lying in bed in no distress RESPIRATORY SYSTEM: Unlabored breathing , decreased breath sounds at bases HEART: S1 S2 regular rate and rhythm , ABDOMEN: Soft , no tenderness EXTREMITIES: Right foot lateral border wound with minimal slough some swelling redness - Labs CBC & Chem 7: 10/22/21 04:14 10/22/21 04:14 Labs: Abnormal Lab Results - Last 24 Hours (Table) 10/21/21 10/21/21 10/22/21 Range/Units 11:39 21:10 04:14 WBC (4.50-10.00) X 10*3/uL RBC (4.10-5.20) X 10*6/uL Hgb (12.0-15.0) g/dL Hct (37.2-46.3) % MCHC (32.0-37.0) g/dL Plt Count (140-440) X 10*3/uL Lymphocytes # (0.90-5.00) X 10*3/uL Anion Gap 18.50 H (10.00-18.00) mmol/L BUN 56.0 H (9.0-27.0) mg/dL Creatinine 8.0 H* (0.6-1.5) mg/dL Est GFR (CKD-EPI)AfAm 5.5 L (60.0-200.0) Est GFR (CKD-EPI)NonAf 4.7 L (60.0-200.0) BUN/Creatinine Ratio 7.04 L (12.00-20.00) Ratio POC Glucose (mg/dL) 122 H (70-110) mg/dL Hemoglobin A1c 7.0 H (0.0-6.0) % 10/22/21 10/22/21 10/22/21 Range/Units 04:14 07:41 11:45 WBC 4.24 L (4.50-10.00) X 10*3/uL RBC 3.60 L (4.10-5.20) X 10*6/uL Hgb 10.8 L (12.0-15.0) g/dL Hct 34.3 L (37.2-46.3) % MCHC 31.5 L (32.0-37.0) g/dL Plt Count 133 L (140-440) X 10*3/uL Lymphocytes # 0.63 L (0.90-5.00) X 10*3/uL Anion Gap (10.00-18.00) mmol/L BUN (9.0-27.0) mg/dL Creatinine (0.6-1.5) mg/dL Est GFR (CKD-EPI)AfAm (60.0-200.0) Est GFR (CKD-EPI)NonAf (60.0-200.0) BUN/Creatinine Ratio (12.00-20.00) Ratio POC Glucose (mg/dL) 117 H 178 H (70-110) mg/dL Hemoglobin A1c (0.0-6.0) % Microbiology - Last 24 Hours (Table) 10/21/21 11:39 Blood Culture - Preliminary Blood No Growth after 24 hours 10/19/21 18:03 Anaerobic Culture - Preliminary Toe - Right Fifth 10/19/21 17:50 Blood Culture - Preliminary Blood No Growth after 48 hours 10/19/21 18:03 Gram Stain - Preliminary Toe - Right Fifth Wound Culture - Preliminary Gram Neg Bacilli 10/19/21 18:08 Blood Culture Gram Stain - Preliminary Blood Assessment and Plan (1) Cellulitis Current Visit: Yes Status: Acute Code(s): L03.90 - CELLULITIS, UNSPECIFIED SNOMED Code(s): 862652407 Plan: 1patient presented to hospital with right lower extremity cellulitis in this patient who do have a right foot lateral border wound which was recently debrided and likely the source of this cellulitis with a possible gram-positive skin ronit however gram-negative infection not entirely excluded. 2penicillin allergy that limit the number of antibiotics safe to use. 3 local wound care to the right foot lateral border wound with the [facility] followed by moist dressing change daily. 4local cultures were growing gram-negative bacilli the patient will continue with cefepime while waiting for the cultures to be finalize 5-blood cultures with diphtheroid species possible contaminate blood cultures will be repeated Time with Patient: Less than 30
--- NOTE | 2021-10-23 08:29 | P.PN ---
Subjective Progress Note Date: 10/21/21 Principal diagnosis: Cellulitis right lower extremity End-stage renal disease/HD 70-year-old female with past medical history remarkable for diabetes, ESRD on hemodialysis, heart failure, DVTs on Eliquis has been noncompliant, chronic lower extremity wounds who presents in the department complaining of worsening redness of her right lower extremity. Patient is concerned for worsening infection. She does have a new were right fifth digit wound with erythema spreading up her right seo almost to the knee. There is nontender. She is also having some intermittent nausea and vomiting. No fevers. No sensory deficits that are new. No weakness. Has not been taking all of her medications. Presents for further evaluation over concern for worsening infection. Has not missed any dialysis runs. Objective - Vital Signs Vital signs: Vital Signs Temp 98.0 F 10/21/21 07:00 Pulse 68 10/21/21 07:00 Resp 17 10/21/21 07:00 BP 115/55 10/21/21 07:00 Pulse Ox 97 10/21/21 07:00 FiO2 Intake & Output 10/20/21 10/21/21 10/21/21 18:59 06:59 18:59 Intake Total 536 356 Output Total 1999 Balance -1464 356 Intake: Oral 236 356 Hemodialysis 300 Output: Hemodialysis 1999 Other: Voiding Method Diaper Diaper # Voids 1 1 # Bowel Movements 0 1 - Exam PHYSICAL EXAMINATION: GENERAL: The patient is alert and oriented x3, not in any acute distress. Well developed, well nourished. HEENT: Pupils are round and equally reacting to light. EOMI. No scleral icterus. No conjunctival pallor. Normocephalic, atraumatic. No pharyngeal erythema. No t hyromegaly. CARDIOVASCULAR: S1 and S2 present. No murmurs, rubs, or gallops. PULMONARY: Chest is clear to auscultation, no wheezing or crackles. ABDOMEN: Soft, nontender, nondistended, normoactive bowel sounds. No palpable organomegaly. MUSCULOSKELETAL: No joint swelling or deformity. EXTREMITIES: No cyanosis, clubbing, or pedal edema. NEUROLOGICAL: Gross neurological examination did not reveal any focal deficits. SKIN: No rashes. - Labs CBC & Chem 7: 10/22/21 04:14 10/22/21 04:14 Labs: Abnormal Lab Results - Last 24 Hours (Table) 10/20/21 10/20/21 10/20/21 Range/Units 05:44 16:30 20:45 RBC (4.10-5.20) X 10*6/uL Hgb (12.0-15.0) g/dL Hct (37.2-46.3) % MCHC (32.0-37.0) g/dL Immature Gran # (0.00-0.04) X 10*3/uL Lymphocytes # (0.90-5.00) X 10*3/uL Sodium (137-145) mmol/L Chloride (98-107) mmol/L Carbon Dioxide (22-30) mmol/L BUN (7-17) mg/dL Creatinine (0.52-1.04) mg/dL Glucose (74-99) mg/dL POC Glucose (mg/dL) 152 H 180 H (70-110) mg/dL Calcium (8.4-10.2) mg/dL Phosphorus 6.5 H (2.4-5.1) mg/dL Iron 41 L (50-170) ug/dL TIBC 172 L (228-460) ug/dL Transferrin 123.0 L (204.0-354.0) mg/dL Ferritin 1266.0 H (10.0-291.0) ng/mL 10/21/21 10/21/21 10/21/21 Range/Units 06:18 06:18 07:58 RBC 3.59 L (4.10-5.20) X 10*6/uL Hgb 10.4 L (12.0-15.0) g/dL Hct 33.9 L (37.2-46.3) % MCHC 30.7 L (32.0-37.0) g/dL Immature Gran # 0.05 H (0.00-0.04) X 10*3/uL Lymphocytes # 0.52 L (0.90-5.00) X 10*3/uL Sodium 134 L (137-145) mmol/L Chloride 95 L (98-107) mmol/L Carbon Dioxide 31 H (22-30) mmol/L BUN 44 H (7-17) mg/dL Creatinine 6.63 H (0.52-1.04) mg/dL Glucose 140 H (74-99) mg/dL POC Glucose (mg/dL) 175 H (70-110) mg/dL Calcium 8.2 L (8.4-10.2) mg/dL Phosphorus (2.4-5.1) mg/dL Iron (50-170) ug/dL TIBC (228-460) ug/dL Transferrin (204.0-354.0) mg/dL Ferritin (10.0-291.0) ng/mL 10/21/21 Range/Units 11:54 RBC (4.10-5.20) X 10*6/uL Hgb (12.0-15.0) g/dL Hct (37.2-46.3) % MCHC (32.0-37.0) g/dL Immature Gran # (0.00-0.04) X 10*3/uL Lymphocytes # (0.90-5.00) X 10*3/uL Sodium (137-145) mmol/L Chloride (98-107) mmol/L Carbon Dioxide (22-30) mmol/L BUN (7-17) mg/dL Creatinine (0.52-1.04) mg/dL Glucose (74-99) mg/dL POC Glucose (mg/dL) 314 H (70-110) mg/dL Calcium (8.4-10.2) mg/dL Phosphorus (2.4-5.1) mg/dL Iron (50-170) ug/dL TIBC (228-460) ug/dL Transferrin (204.0-354.0) mg/dL Ferritin (10.0-291.0) ng/mL Microbiology - Last 24 Hours (Table) 10/19/21 18:08 Blood Culture - Final Blood 10/19/21 17:50 Blood Culture - Preliminary Blood No Growth after 24 hours 10/19/21 18:03 Gram Stain - Preliminary Toe - Right Fifth Wound Culture - Preliminary Gram Neg Bacilli Assessment and Plan Assessment: 1. Cellulitis right lower extremity 2. End-stage renal disease/HD 3. Intractable nausea and vomiting 4. Diabetes mellitus 5. Hypertension 6. Hyperlipidemia 7. History of DVT Patient has been placed on IV antibiotics in form of vancomycin with pharmacy dosing service; we will monitor CBC, CRP and pro-calcitonin; consult ID for further recommendations on IV antibiotics - Nephrology is consulted and patient is to undergo hemodialysis as scheduled Check phosphorus level. Resume PhosLo. Monitor vancomycin levels. Dose to be adjusted for renal function. Check iron studies.
--- NOTE | 2021-10-23 08:32 | P.PN ---
Subjective Progress Note Date: 10/22/21 Principal diagnosis: Cellulitis right lower extremity End-stage renal disease/HD 70-year-old female with past medical history remarkable for diabetes, ESRD on hemodialysis, heart failure, DVTs on Eliquis has been noncompliant, chronic lower extremity wounds who presents in the department complaining of worsening redness of her right lower extremity. Patient is concerned for worsening infection. She does have a new were right fifth digit wound with erythema spreading up her right seo almost to the knee. There is nontender. She is also having some intermittent nausea and vomiting. No fevers. No sensory deficits that are new. No weakness. Has not been taking all of her medications. Presents for further evaluation over concern for worsening infection. Has not missed any dialysis runs. 10/22/2021 Patient is seen and evaluated in room at bedside; remains to be afebrile, the patient right leg swelling redness has slightly decreased in intensity, the patient denies any chest pain or shortness of breath or cough no abdominal pain no diarrhea Vital signs are reviewed and reveal temperature of 98.1, pulse of 60 respiration 18 and blood pressure of 133/72 Lab review shows to be VC of 4.2, hemoglobin 10.8 and platelet count of 133, sodium 138, potassium 4.3, BUN/creatinine of 56/8.0 Wound cultures on her. And growing gram-negative bacilli; patient has been/to IV cefepime Objective - Vital Signs Vital signs: Vital Signs Temp 98.1 F 10/22/21 07:00 Pulse 60 10/22/21 07:00 Resp 18 10/22/21 07:00 BP 133/72 10/22/21 07:00 Pulse Ox 100 10/22/21 07:00 FiO2 Intake & Output 10/21/21 10/22/21 10/22/21 18:59 06:59 18:59 Intake Total 356 Balance 356 Intake: Oral 356 Other: Voiding Method Diaper Diaper # Voids 1 1 1 # Bowel Movements 1 - Exam PHYSICAL EXAMINATION: GENERAL: The patient is alert and oriented x3, not in any acute distress. Well developed, well nourished. HEENT: Pupils are round and equally reacting to light. EOMI. No scleral icterus. No conjunctival pallor. Normocephalic, atraumatic. No pharyngeal erythema. No thyromegaly. CARDIOVASCULAR: S1 and S2 present. No murmurs, rubs, or gallops. PULMONARY: Chest is clear to auscultation, no wheezing or crackles. ABDOMEN: Soft, nontender, nondistended, normoactive bowel sounds. No palpable organomegaly. MUSCULOSKELETAL: No joint swelling or deformity. EXTREMITIES: No cyanosis, clubbing, or pedal edema. NEUROLOGICAL: Gross neurological examination did not reveal any focal deficits. SKIN: No rashes. - Labs CBC & Chem 7: 10/22/21 04:14 10/22/21 04:14 Labs: Abnormal Lab Results - Last 24 Hours (Table) 10/21/21 10/21/21 10/22/21 Range/Units 11:39 21:10 04:14 WBC 4.24 L (4.50-10.00) X 10*3/uL RBC 3.60 L (4.10-5.20) X 10*6/uL Hgb 10.8 L (12.0-15.0) g/dL Hct 34.3 L (37.2-46.3) % MCHC 31.5 L (32.0-37.0) g/dL Plt Count 133 L (140-440) X 10*3/uL Lymphocytes # 0.63 L (0.90-5.00) X 10*3/uL POC Glucose (mg/dL) 122 H (70-110) mg/dL Hemoglobin A1c 7.0 H (0.0-6.0) % 10/22/21 10/22/21 Range/Units 07:41 11:45 WBC (4.50-10.00) X 10*3/uL RBC (4.10-5.20) X 10*6/uL Hgb (12.0-15.0) g/dL Hct (37.2-46.3) % MCHC (32.0-37.0) g/dL Plt Count (140-440) X 10*3/uL Lymphocytes # (0.90-5.00) X 10*3/uL POC Glucose (mg/dL) 117 H 178 H (70-110) mg/dL Hemoglobin A1c (0.0-6.0) % Microbiology - Last 24 Hours (Table) 10/19/21 18:03 Anaerobic Culture - Preliminary Toe - Right Fifth 10/19/21 17:50 Blood Culture - Preliminary Blood No Growth after 48 hours 10/19/21 18:03 Gram Stain - Preliminary Toe - Right Fifth Wound Culture - Preliminary Gram Neg Bacilli 10/19/21 18:08 Blood Culture Gram Stain - Preliminary Blood 10/19/21 18:08 Blood Culture - Final Blood Assessment and Plan Assessment: 1. Cellulitis right lower extremity 2. End-stage renal disease/HD 3. Intractable nausea and vomiting 4. Diabetes mellitus 5. Hypertension 6. Hyperlipidemia 7. History of DVT Patient has been placed on IV antibiotics in form of vancomycin with pharmacy dosing service; we will monitor CBC, CRP and pro-calcitonin; consult ID for further recommendations on IV antibiotics - Nephrology is consulted and patient is to undergo hemodialysis as scheduled Check phosphorus level. Resume PhosLo. Monitor vancomycin levels. Dose to be adjusted for renal function. Check iron studies.
[2021-10-23 08:51] LABS: Basophils # (A) 0.02 X 10*3/uL (0.00-0.10); Basophils % (A) 0.4 %; Eosinophils # (A) 0.16 X 10*3/uL (0.04-0.35); Eosinophils % (A) 3.3 %; HCT 33.6 % (37.2-46.3); HGB 10.3 g/dL (12.0-15.0); Immature Grans, Automated 1.5 %; Lymphocytes # (A) 0.77 X 10*3/uL (0.90-5.00); MCH 28.9 pg (27.0-32.0); MCHC 30.7 g/dL (32.0-37.0); MCV 94.4 fL (80.0-97.0); Mean Platelet Volume 10.8 fL (9.5-12.2); Monocytes # (A) 0.47 X 10*3/uL (0.20-1.00); Monocytes % (A) 9.8 %; NRBC Per 100 WBC 0 /100 WBCS (0.0-0.0); Neutrophils # (A) 3.33 X 10*3/uL (1.80-7.70); Platelet Count 143 X 10*3/uL (140-440); RBC 3.56 X 10*6/uL (4.10-5.20); RDW 13.5 % (11.5-14.5); WBC 4.82 X 10*3/uL (4.50-10.00)
[2021-10-23 09:21] LABS: African American GFR (CKD) 4.7 (60.0-200.0); Anion Gap 14.6 mmol/L (10.00-18.00); BUN/Creat Ratio 7.93 Ratio (12.00-20.00); Blood Urea Nitrogen 71.4 mg/dL (9.0-27.0); Calcium 8.7 mg/dL (8.7-10.3); Carbon Dioxide 27.4 mmol/L (20.0-27.5); Non-African American GFR(CKD) 4.1 (60.0-200.0); Potassium 4.1 mmol/L (3.5-5.5)
--- NOTE | 2021-10-23 10:57 | P.PN ---
Subjective patient is seen for follow-up for end-stage renal disease. Maintained on Saturday vent is a Saturday schedule. She was admitted with cellulitis of the right lower extremity. This has currently improved. No significant complaints today. Objective - Vital Signs Vital signs: Vital Signs Temp 97.7 F 10/23/21 07:00 Pulse 62 10/23/21 07:00 Resp 16 10/23/21 07:00 BP 150/72 10/23/21 07:00 Pulse Ox 98 10/23/21 07:00 FiO2 Intake & Output 10/22/21 10/23/21 10/23/21 18:59 06:59 18:59 Intake Total 118 Balance 118 Intake: Oral 118 Other: Voiding Method Diaper Diaper # Voids 1 1 - Exam awake, comfortable, no acute distress Examination of the heart S1 and S2 [place] examination of the lungs bilateral breath sounds are heard Abdomen is soft nontender Examination of lower extremities shows chronic skin changes but no significant edema noted. erythema in the right leg is decreased [employer] exam grossly intact - Labs CBC & Chem 7: 10/23/21 03:35 10/23/21 03:35 Labs: Abnormal Lab Results - Last 24 Hours (Table) 10/22/21 10/22/21 10/22/21 Range/Units 04:14 11:45 17:21 RBC (4.10-5.20) X 10*6/uL Hgb (12.0-15.0) g/dL Hct (37.2-46.3) % MCHC (32.0-37.0) g/dL Immature Gran # (0.00-0.04) X 10*3/uL Lymphocytes # (0.90-5.00) X 10*3/uL Chloride (96-109) mmol/L Anion Gap 18.50 H (10.00-18.00) mmol/L BUN 56.0 H (9.0-27.0) mg/dL Creatinine 8.0 H* (0.6-1.5) mg/dL Est GFR (CKD-EPI)AfAm 5.5 L (60.0-200.0) Est GFR (CKD-EPI)NonAf 4.7 L (60.0-200.0) BUN/Creatinine Ratio 7.04 L (12.00-20.00) Ratio POC Glucose (mg/dL) 178 H 122 H (70-110) mg/dL 10/22/21 10/23/21 10/23/21 Range/Units 19:55 03:35 03:35 RBC 3.56 L (4.10-5.20) X 10*6/uL Hgb 10.3 L (12.0-15.0) g/dL Hct 33.6 L (37.2-46.3) % MCHC 30.7 L (32.0-37.0) g/dL Immature Gran # 0.07 H (0.00-0.04) X 10*3/uL Lymphocytes # 0.77 L (0.90-5.00) X 10*3/uL Chloride 94 L (96-109) mmol/L Anion Gap (10.00-18.00) mmol/L BUN 71.4 H (9.0-27.0) mg/dL Creatinine 9.0 H* (0.6-1.5) mg/dL Est GFR (CKD-EPI)AfAm 4.7 L (60.0-200.0) Est GFR (CKD-EPI)NonAf 4.1 L (60.0-200.0) BUN/Creatinine Ratio 7.93 L (12.00-20.00) Ratio POC Glucose (mg/dL) 140 H (70-110) mg/dL Microbiology - Last 24 Hours (Table) 10/19/21 18:03 Gram Stain - Preliminary Toe - Right Fifth Wound Culture - Preliminary Gram Neg Bacilli Proteus mirabilis 10/19/21 17:50 Blood Culture - Preliminary Blood No Growth after 72 hours 10/19/21 18:08 Blood Culture Gram Stain - Final Blood Blood Culture - Final Diphtheroid species 10/21/21 11:39 Blood Culture - Preliminary Blood No Growth after 24 hours Assessment and Plan Assessment: 1. End-stage renal disease on hemodialysis on a Saturday schedule 2. Right lower extremity cellulitis maintained on antibiotics 3. Chronic kidney disease mineral bone disorder maintained on PhosLo 4. Type 2 diabetes 5. Anemia of chronic disease Plan: hemodialysis today
[2021-10-23 11:57] LABS: Glucose,Whole Blood 196 mg/dL (70-110)
[2021-10-23] MEDS: INSULIN DETEMIR (LEVEMIR) 100 UNIT/ML SYR SQ SCH (13:05)
[2021-10-23 16:29] LABS: Glucose,Whole Blood 123 mg/dL (70-110)
[2021-10-23 19:47] LABS: Glucose,Whole Blood 207 mg/dL (70-110)
[2021-10-23] MEDS: CEFEPIME 1 GM in SODIUM CHLORIDE 0.9% 50 ML IVPB SCH (21:36)
[2021-10-24 03:02] LABS: Glucose,Whole Blood 112 mg/dL (70-110)
[2021-10-24 07:13] LABS: Glucose,Whole Blood 133 mg/dL (70-110)
[2021-10-24 07:42] VITALS: BP 125/63; PULSE 69; RESP 20; TEMP 98.1
[2021-10-24] MEDS: CALCIUM ACETATE 667 MG TAB PO SCH ×2 (08:33→12:39)
[2021-10-24] MEDS: APIXABAN 2.5 MG TABLET PO SCH (08:34)
[2021-10-24] MEDS: INSULIN ASPART (NovoLOG) 100 UNIT/ML VIAL SQ SCH ×4 (08:34→12:40)
[2021-10-24 09:14] LABS: Basophils # (A) 0.03 X 10*3/uL (0.00-0.10); Basophils % (A) 0.6 %; Eosinophils # (A) 0.21 X 10*3/uL (0.04-0.35); Eosinophils % (A) 4.3 %; HCT 33.5 % (37.2-46.3); HGB 10.5 g/dL (12.0-15.0); Immature Grans, Automated 2.7 %; Lymphocytes # (A) 0.76 X 10*3/uL (0.90-5.00); Lymphocytes % (A) 15.5 %; MCH 29.4 pg (27.0-32.0); MCHC 31.3 g/dL (32.0-37.0); MCV 93.8 fL (80.0-97.0); Mean Platelet Volume 10.5 fL (9.5-12.2); Monocytes # (A) 0.34 X 10*3/uL (0.20-1.00); Monocytes % (A) 6.9 %; NRBC Per 100 WBC 0 /100 WBCS (0.0-0.0); Neutrophils # (A) 3.43 X 10*3/uL (1.80-7.70); Platelet Count 143 X 10*3/uL (140-440); RBC 3.57 X 10*6/uL (4.10-5.20); RDW 13.5 % (11.5-14.5)
[2021-10-24 10:59] LABS: Anion Gap 15.7 mmol/L (10.00-18.00); BUN/Creat Ratio 7.65 Ratio (12.00-20.00); Blood Urea Nitrogen 56.6 mg/dL (9.0-27.0); Calcium 8.9 mg/dL (8.7-10.3); Carbon Dioxide 23.3 mmol/L (20.0-27.5); Non-African American GFR(CKD) 5.1 (60.0-200.0); Potassium 4.1 mmol/L (3.5-5.5)
--- NOTE | 2021-10-24 11:30 | P.PN ---
Subjective patient is seen for follow-up for end-stage renal disease. Maintained on Saturday vent is a Saturday schedule. She was admitted with cellulitis of the right lower extremity. This has currently improved. No significant complaints today. Tolerated hemodialysis well yesterday. Objective - Vital Signs Vital signs: Vital Signs Temp 98.1 F 10/24/21 07:00 Pulse 69 10/24/21 08:00 Resp 20 10/24/21 08:00 BP 125/63 10/24/21 07:00 Pulse Ox 98 10/24/21 07:00 FiO2 Intake & Output 10/23/21 10/24/21 10/24/21 18:59 06:59 18:59 Intake Total 300 Output Total 2300 Balance -1999 Intake: Hemodialysis 300 Output: Hemodialysis 2300 Other: Voiding Method Diaper Diaper Diaper # Voids 2 # Bowel Movements 0 - Exam awake, comfortable, no acute distress Examination of the heart S1 and S2 [place] examination of the lungs bilateral breath sounds are heard Abdomen is soft nontender Examination of lower extremities shows chronic skin changes but no significant edema noted. erythema in the right leg is decreased [employer] exam grossly intact - Labs CBC & Chem 7: 10/24/21 05:08 10/24/21 05:08 Labs: Abnormal Lab Results - Last 24 Hours (Table) 10/23/21 10/23/21 10/23/21 Range/Units 11:55 16:27 19:45 RBC (4.10-5.20) X 10*6/uL Hgb (12.0-15.0) g/dL Hct (37.2-46.3) % MCHC (32.0-37.0) g/dL Immature Gran # (0.00-0.04) X 10*3/uL Lymphocytes # (0.90-5.00) X 10*3/uL BUN (9.0-27.0) mg/dL Creatinine (0.6-1.5) mg/dL Est GFR (CKD-EPI)AfAm (60.0-200.0) Est GFR (CKD-EPI)NonAf (60.0-200.0) BUN/Creatinine Ratio (12.00-20.00) Ratio Glucose (70-110) mg/dL POC Glucose (mg/dL) 196 H 123 H 207 H (70-110) mg/dL 10/24/21 10/24/21 10/24/21 Range/Units 03:01 05:08 05:08 RBC 3.57 L (4.10-5.20) X 10*6/uL Hgb 10.5 L (12.0-15.0) g/dL Hct 33.5 L (37.2-46.3) % MCHC 31.3 L (32.0-37.0) g/dL Immature Gran # 0.13 H (0.00-0.04) X 10*3/uL Lymphocytes # 0.76 L (0.90-5.00) X 10*3/uL BUN 56.6 H (9.0-27.0) mg/dL Creatinine 7.4 H* (0.6-1.5) mg/dL Est GFR (CKD-EPI)AfAm 6.0 L (60.0-200.0) Est GFR (CKD-EPI)NonAf 5.1 L (60.0-200.0) BUN/Creatinine Ratio 7.65 L (12.00-20.00) Ratio Glucose 112 H (70-110) mg/dL POC Glucose (mg/dL) 112 H (70-110) mg/dL 10/24/21 Range/Units 07:11 RBC (4.10-5.20) X 10*6/uL Hgb (12.0-15.0) g/dL Hct (37.2-46.3) % MCHC (32.0-37.0) g/dL Immature Gran # (0.00-0.04) X 10*3/uL Lymphocytes # (0.90-5.00) X 10*3/uL BUN (9.0-27.0) mg/dL Creatinine (0.6-1.5) mg/dL Est GFR (CKD-EPI)AfAm (60.0-200.0) Est GFR (CKD-EPI)NonAf (60.0-200.0) BUN/Creatinine Ratio (12.00-20.00) Ratio Glucose (70-110) mg/dL POC Glucose (mg/dL) 133 H (70-110) mg/dL Microbiology - Last 24 Hours (Table) 10/19/21 18:03 Anaerobic Culture - Final Toe - Right Fifth Anaerobic Gm Negative Bacilli Anaerobic Gm Negative Bacilli#2 10/19/21 18:03 Gram Stain - Final Toe - Right Fifth Wound Culture - Final Enterobacter cloacae Proteus mirabilis 10/19/21 17:50 Blood Culture - Preliminary Blood No Growth after 96 hours 10/21/21 11:39 Blood Culture - Preliminary Blood No Growth after 48 hours Assessment and Plan Assessment: 1. End-stage renal disease on hemodialysis on a Saturday schedule 2. Right lower extremity cellulitis maintained on antibiotics 3. Chronic kidney disease mineral bone disorder maintained on PhosLo 4. Type 2 diabetes 5. Anemia of chronic disease Plan: hemodialysis in a.m. if not discharged
[2021-10-24 11:57] LABS: Glucose,Whole Blood 144 mg/dL (70-110)
--- NOTE | 2021-10-24 12:25 | P.PN ---
Subjective Progress Note Date: 10/23/21 Principal diagnosis: Right lower extremity cellulitis Patient is a 70 year old female with a past medical history significant for end-stage renal disease on dialysis, patient did have a wound on the right foot lateral border which was recently debrided at wound care sub sequently presented to hospital with right lower extremity cellulitis. On today's evaluation that is 10/23/2021, the patient continues to be afebrile, the patient right leg swelling redness has decreased in intensity and the patient complaining of no pain to the right leg, the patient denies any chest pain or shortness of breath or cough no abdominal pain no diarrhea Objective - Vital Signs Vital signs: Vital Signs Temp 98 F 10/23/21 13:30 Pulse 76 10/23/21 13:30 Resp 14 10/23/21 13:30 BP 122/68 10/23/21 13:30 Pulse Ox 97 10/23/21 13:30 FiO2 Intake & Output 10/22/21 10/23/21 10/23/21 18:59 06:59 18:59 Intake Total 118 Balance 118 Intake: Oral 118 Other: Voiding Method Diaper Diaper # Voids 1 1 # Bowel Movements 0 - Exam GENERAL DESCRIPTION: An elderly female lying in bed in no distress RESPIRATORY SYSTEM: Unlabored breathing , decreased breath sounds at bases HEART: S1 S2 regular rate and rhythm , ABDOMEN: Soft , no tenderness EXTREMITIES: Right foot lateral border wound with minimal slough some swelling redness - Labs CBC & Chem 7: 10/24/21 05:08 10/24/21 05:08 Labs: Abnormal Lab Results - Last 24 Hours (Table) 10/22/21 10/22/21 10/23/21 Range/Units 17:21 19:55 03:35 RBC (4.10-5.20) X 10*6/uL Hgb (12.0-15.0) g/dL Hct (37.2-46.3) % MCHC (32.0-37.0) g/dL Immature Gran # (0.00-0.04) X 10*3/uL Lymphocytes # (0.90-5.00) X 10*3/uL Chloride 94 L (96-109) mmol/L BUN 71.4 H (9.0-27.0) mg/dL Creatinine 9.0 H* (0.6-1.5) mg/dL Est GFR (CKD-EPI)AfAm 4.7 L (60.0-200.0) Est GFR (CKD-EPI)NonAf 4.1 L (60.0-200.0) BUN/Creatinine Ratio 7.93 L (12.00-20.00) Ratio POC Glucose (mg/dL) 122 H 140 H (70-110) mg/dL 10/23/21 10/23/21 Range/Units 03:35 11:55 RBC 3.56 L (4.10-5.20) X 10*6/uL Hgb 10.3 L (12.0-15.0) g/dL Hct 33.6 L (37.2-46.3) % MCHC 30.7 L (32.0-37.0) g/dL Immature Gran # 0.07 H (0.00-0.04) X 10*3/uL Lymphocytes # 0.77 L (0.90-5.00) X 10*3/uL Chloride (96-109) mmol/L BUN (9.0-27.0) mg/dL Creatinine (0.6-1.5) mg/dL Est GFR (CKD-EPI)AfAm (60.0-200.0) Est GFR (CKD-EPI)NonAf (60.0-200.0) BUN/Creatinine Ratio (12.00-20.00) Ratio POC Glucose (mg/dL) 196 H (70-110) mg/dL Microbiology - Last 24 Hours (Table) 10/19/21 18:03 Gram Stain - Preliminary Toe - Right Fifth Wound Culture - Preliminary Gram Neg Bacilli Proteus mirabilis 10/19/21 17:50 Blood Culture - Preliminary Blood No Growth after 72 hours 10/19/21 18:08 Blood Culture Gram Stain - Final Blood Blood Culture - Final Diphtheroid species 10/21/21 11:39 Blood Culture - Preliminary Blood No Growth after 24 hours Assessment and Plan (1) Cellulitis Current Visit: Yes Status: Acute Code(s): L03.90 - CELLULITIS, UNSPECIFIED SNOMED Code(s): 057209436 Plan: 1patient presented to hospital with right lower extremity cellulitis in this patient who do have a right foot lateral border wound which was recently debrided and likely the source of this cellulitis with a possible gram-positive skin ronit however gram-negative infection not entirely excluded. 2penicillin allergy that limit the number of antibiotics safe to use. 3 local wound care to the right foot lateral border wound with the [employer] followed by moist dressing change daily. 4local cultures did grew Enterobacter and Proteus currently covered with cefepime with a plan to finish therapy with oral Ceftin 10 days discussed with the medical team 5-blood cultures with diphtheroid species possible contaminate blood cultures repeat are so far negative Time with Patient: Less than 30
--- NOTE | 2021-10-24 12:27 | P.PN ---
Subjective Progress Note Date: 10/24/21 Principal diagnosis: Right lower extremity cellulitis Patient is a 70 year old female with a past medical history significant for end-stage renal disease on dialysis, patient did have a wound on the right foot lateral border which was recently debrided at wound care sub sequently presented to hospital with right lower extremity cellulitis. On today's evaluation that is 10/24/2021, the patient remains to be afebrile, the patient right leg swelling redness has almost resolved and the patient denies pain to the right leg, the patient denies any chest pain or shortness of breath or cough no abdominal pain no diarrhea Objective - Vital Signs Vital signs: Vital Signs Temp 98.1 F 10/24/21 07:00 Pulse 69 10/24/21 08:00 Resp 20 10/24/21 08:00 BP 125/63 10/24/21 07:00 Pulse Ox 98 10/24/21 07:00 FiO2 Intake & Output 10/23/21 10/24/21 10/24/21 18:59 06:59 18:59 Intake Total 300 Output Total 2300 Balance -2000 Intake: Hemodialysis 300 Output: Hemodialysis 2300 Other: Voiding Method Diaper Diaper Diaper # Voids 2 # Bowel Movements 0 - Exam GENERAL DESCRIPTION: An elderly female lying in bed in no distress RESPIRATORY SYSTEM: Unlabored breathing , decreased breath sounds at bases HEART: S1 S2 regular rate and rhythm , ABDOMEN: Soft , no tenderness EXTREMITIES: Right foot lateral border wound with minimal slough some swelling redness - Labs CBC & Chem 7: 10/24/21 05:08 10/24/21 05:08 Labs: Abnormal Lab Results - Last 24 Hours (Table) 10/23/21 10/23/21 10/23/21 Range/Units 11:55 16:27 19:45 RBC (4.10-5.20) X 10*6/uL Hgb (12.0-15.0) g/dL Hct (37.2-46.3) % MCHC (32.0-37.0) g/dL Immature Gran # (0.00-0.04) X 10*3/uL Lymphocytes # (0.90-5.00) X 10*3/uL POC Glucose (mg/dL) 196 H 123 H 207 H (70-110) mg/dL 10/24/21 10/24/2110/24/22 Range/Units 03:01 05:08 07:11 RBC 3.57 L (4.10-5.20) X 10*6/uL Hgb 10.5 L (12.0-15.0) g/dL Hct 33.5 L (37.2-46.3) % MCHC 31.3 L (32.0-37.0) g/dL Immature Gran # 0.13 H (0.00-0.04) X 10*3/uL Lymphocytes # 0.76 L (0.90-5.00) X 10*3/uL POC Glucose (mg/dL) 112 H 133 H (70-110) mg/dL Microbiology - Last 24 Hours (Table) 10/19/21 18:03 Anaerobic Culture - Final Toe - Right Fifth Anaerobic Gm Negative Bacilli Anaerobic Gm Negative Bacilli#2 10/19/21 18:03 Gram Stain - Final Toe - Right Fifth Wound Culture - Final Enterobacter cloacae Proteus mirabilis 10/19/21 17:50 Blood Culture - Preliminary Blood No Growth after 96 hours 10/21/21 11:39 Blood Culture - Preliminary Blood No Growth after 48 hours Assessment and Plan (1) Cellulitis Current Visit: Yes Status: Acute Code(s): L03.90 - CELLULITIS, UNSPECIFIED SNOMED Code(s): 439975054 Plan: 1patient presented to hospital with right lower extremity cellulitis in this patient who do have a right foot lateral border wound which was recently debrided and likely the source of this cellulitis with a possible gram-positive skin ronit however gram-negative infection not entirely excluded. 2penicillin allergy that limit the number of antibiotics safe to use. 3 local [facility] by [facility] dressing change daily. 4local cultures did grew Enterobacter and Proteus now also growing anaerobic gram-negative bacilli, patient to finish therapy with oral Ceftin and Flagyl 10 days and a close outpatient follow-up 5-blood cultures with diphtheroid species possible contaminate blood cultures repeat are so far negative no need for further workup for the same Time with Patient: Less than 30
[2021-10-24] MEDS: INSULIN DETEMIR (LEVEMIR) 100 UNIT/ML SYR SQ SCH (12:36)
--- NOTE | 2021-10-26 10:44 | P.DS ---
Providers Date of admission: 10/23/21 08:50 Expected date of discharge: 10/24/21 Attending physician: Slava Mcbride MD Consults: 10/19/21 19:50 Consult Physician Routine Consulting Provider: Marcio Pedersen Consult Reason/Comments: scheduled dialysis, nonemergent Do you want consulting provider notified?: Yes, Notify in am 10/20/21 14:03 Consult Physician Routine Consulting Provider: Pb Rich Consult Reason/Comments: Cellulitis RLE Do you want consulting provider notified?: Yes Primary care physician: Karen Anderson Hospital Course: Final diagnosis 1. Cellulitis right lower extremity 2. End-stage renal disease/HD 3. Intractable nausea and vomiting 4. Diabetes mellitus 5. Hypertension 6. Hyperlipidemia 7. History of DVT Discharge disposition Patient is being discharged in a stable condition with guarded prognosis to home. Patient will follow-up with Dr. Anderson in the outpatient setting upon discharge. Patient is to continue with oral antibiotics in the form of Ceftin 250 mg twice a day for the next 10 days along with Flagyl 500 mg 3 times a day for 10 days as scheduled. Patient needs to follow up at the wound care center in the outpatient setting and will continue with home care. Total time taken is greater than 35 minutes. Hospital course This is a 70-year-old female who was recently admitted with right lower extremity cellulitis and was being closely monitored. Patient was following at the wound care center and was admitted for possible worsening infection. Patient is also maintained on dialysis Saturday/Saturday/Saturday for end-stage renal disease. Patient had some positive blood cultures which are thus far negative showing dipped steroid series and wound cultures of the fifth right toe showing gram-negative bacilli with Enterobacter and Proteus with some resistance and anxiety following recommending Flagyl and Ceftin in the outpatient setting for a ten-day course. Patient needs close outpatient follow-up at the wound care center. Patient encouraged to follow-up with primary care provider on discharge. Patient reports to feeling well is extremely anxious to be discharged home today. Currently no reports of chest pain, shortness of breath, or palpitations. Patient is afebrile. No reports of nausea or vomiting and patient is tolerating diet. Patient will be discharged home today with home care. Physical exam: Gen: This is a 62-year-old female awake, alert and oriented 3, well-developed, well-nourished, obese HEENT: Head is atraumatic, normocephalic. Pupils equal, round. Sclerae is anicteric. NECK: Supple. No JVD. No lymphadenopathy. No thyromegaly. LUNGS: Clear to auscultation. No wheezes or rhonchi. No intercostal retractions. HEART: Regular rate and rhythm. No murmur. ABDOMEN: Soft. Bowel sounds are present. No masses. No tenderness. EXTREMITIES: No pedal edema. No calf tenderness. Right lower extremity swelling and redness has improved since admission NEUROLOGICAL: Patient is awake, alert and oriented x3. Cranial nerves 2 through 12 are grossly intact. Please refer to medication reconciliation sheet for a list of medications. The impression and plan of care has been dictated by Amna Puentes, Nurse Practitioner as directed. Dr. Jaylin MD I have performed a history and examination and MDM of this patient, discussed the same with the dictator, and agree with the dictator's assessment and plan as written ,documented as a scribe. Based on total visit time, I have performed more than 50% of the visit. Patient Condition at Discharge: Stable Plan - Discharge Summary Discharge Rx Participant: No New Discharge Prescriptions: New Cefuroxime [Ceftin] 250 mg PO BID 10 Days #30 tab metroNIDAZOLE [Flagyl] 500 mg PO TID #30 tab Continue Apixaban [Eliquis] 2.5 mg PO BID tablet Aspirin 81 mg PO DAILY Calcium Acetate [PhosLo] 1,334 mg PO TID-W/MEALS allopurinoL 100 mg PO DAILY Insulin Glargine,Hum.rec.anlog [Basaglar Kwikpen U-100] 38 unit SQ W/LUNCH Insulin Aspart [NovoLOG Flexpen] 12 units SQ AC-BRKFST Insulin Aspart [NovoLOG Flexpen] 15 units SQ AC-BID@1300,1700 Cholecalciferol [Vitamin D3 (25 Mcg = 1000 Iu)] 75 mcg PO DAILY Discharge Medication List Apixaban [Eliquis] 2.5 mg PO BID tablet 01/01/20 [Rx] Aspirin 81 mg PO DAILY 03/07/20 [History] Calcium Acetate [PhosLo] 1,334 mg PO TID-W/MEALS 12/28/20 [History] Insulin Aspart [NovoLOG Flexpen] 12 units SQ AC-BRKFST 12/28/20 [History] Insulin Glargine,Hum.rec.anlog [Basaglar Kwikpen U-100] 38 unit SQ W/LUNCH 12/28/20 [History] Cholecalciferol [Vitamin D3 (25 Mcg = 1000 Iu)] 75 mcg PO DAILY 05/16/21 [History] Insulin Aspart [NovoLOG Flexpen] 15 units SQ AC-BID@1300,1700 05/16/21 [History] allopurinoL 100 mg PO DAILY 10/19/21 [History] Cefuroxime [Ceftin] 250 mg PO BID 10 Days #30 tab 10/23/21 [Rx] metroNIDAZOLE [Flagyl] 500 mg PO TID #30 tab 10/24/21 [Rx] Follow up Appointment(s)/Referral(s): Karen Anderson MD [Primary Care Provider] - 1-2 days Sherif Carr,Home Care [NON-STAFF] - 1-2 Days Patient Instructions/Handouts: Cellulitis (GEN) Activity/Diet/Wound Care/Special Instructions: Activity Limited until follow-up Continue antibiotics until finished Continue with home care Follow-up with primary care provider on discharge Continue with hemodialysis schedule Saturday/Saturday/Saturday Discharge/Stand Alone Forms: Who Do I Call?, Community Resources, Personal Car Checker Discharge Disposition: HOME SELF-CARE
== END 2021-10-24 13:15 | disposition home health service (06) | DRG 602 ==
LOC: EC 16:53 → 6NMEDSUR 20:00 → OBSVTOIN 10-23 08:50
PROVIDERS: ADMIT Internal Medicine; ATTEND Internal Medicine
PROC: 5A1D70Z Performance of Urinary Filtration, Intermittent, Less than 6 Hours Per Day (ICD-10-PCS; principal; 2021-10-23)
DX: L03.115 Cellulitis of right lower limb (principal); N18.6 End stage renal disease; I13.2 Hypertensive heart and chronic kidney disease with heart failure and with stage 5 chronic kidney disease, or end stage renal disease; B96.89 Other specified bacterial agents as the cause of diseases classified elsewhere; B96.4 Proteus (mirabilis) (morganii) as the cause of diseases classified elsewhere; D63.1 Anemia in chronic kidney disease; E11.22 Type 2 diabetes mellitus with diabetic chronic kidney disease; E78.5 Hyperlipidemia, unspecified; I50.9 Heart failure, unspecified; R11.2 Nausea with vomiting, unspecified; E11.42 Type 2 diabetes mellitus with diabetic polyneuropathy; M10.9 Gout, unspecified; M89.8X9 Other specified disorders of bone, unspecified site; M89.9 Disorder of bone, unspecified; M19.90 Unspecified osteoarthritis, unspecified site; R32 Unspecified urinary incontinence; Z79.01 Long term (current) use of anticoagulants; Z79.4 Long term (current) use of insulin; Z79.82 Long term (current) use of aspirin; Z79.899 Other long term (current) drug therapy; Z80.0 Family history of malignant neoplasm of digestive organs; Z82.3 Family history of stroke; Z82.49 Family history of ischemic heart disease and other diseases of the circulatory system; Z83.3 Family history of diabetes mellitus; Z86.718 Personal history of other venous thrombosis and embolism; Z87.891 Personal history of nicotine dependence; Z91.19 Patient's noncompliance with other medical treatment and regimen; Z99.2 Dependence on renal dialysis; Z88.0 Allergy status to penicillin; Z88.8 Allergy status to other drugs, medicaments and biological substances; Z91.048 Other nonmedicinal substance allergy status; E11.51 Type 2 diabetes mellitus with diabetic peripheral angiopathy without gangrene; Z90.49 Acquired absence of other specified parts of digestive tract; Z98.42 Cataract extraction status, left eye; Z98.41 Cataract extraction status, right eye; Z96.1 Presence of intraocular lens
CPT/HCPCS: 36415; 80048; 80053; 80202; 82728; 83036; 83540; 83550; 83605; 84100; 85025; 87040; 87070; 87075; 87077; 87186; 87205; 90471; 90715; 90935; 93970; 96365; 96366; 96375; 99285

== ENCOUNTER → 2022-04-12 | Outpatient (CLI) | payer MEDICARE, OTHER ==
--- NOTE | 2022-04-12 08:10 | XR ---
EXAMINATION TYPE: XR foot complete RT DATE OF EXAM: 04/12/2022 CLINICAL HISTORY: pain TECHNIQUE: Frontal, lateral and oblique images of the left foot are obtained. COMPARISON: 10/19/2021 FINDINGS: There is a bony destructive process at the base of the amputated fifth digit including the head and neck of the fifth metatarsal. Findings are compatible with osteomyelitis. Soft tissue ulcera tion is seen. There is been amputation of the distal phalanx of the third digit. No additional destru ctive processes seen. Hallux valgus deformity of the great toe. IMPRESSION: Findings compatible with osteomyelitis as discussed above.
== END | disposition home or self-care (01) ==
LOC: RADXRMAIN 07:11
PROVIDERS: ATTEND Nurse Practitioner Family
DX: L97.515 Non-pressure chronic ulcer of other part of right foot with muscle involvement without evidence of necrosis (principal)

== ENCOUNTER → 2022-08-09 | Day surgery (SDC) | payer MEDICARE, OTHER ==
[2022-08-07 16:23] VITALS: BMI 37.0
[~2022-08-09] MED LIST changes: +ALTEPLASE 10 MG in SODIUM CHLORIDE 0.9% 50 ML IV ONE; -DEXAMETHASONE SOD PHOSPHATE 4 MG/ML 1 ML VIAL IV ONE; +HEPARIN SOD IV ONE; +HEPARIN SODIUM 1,000 UN/ML (10ML VL) ONE; -HEPARIN SODIUM,PORCINE 2,000 UNIT in SODIUM CHLORIDE 0.9% 500 ML 500 ML IRRIGATION ONE; -HEPARIN SODIUM,PORCINE 5,000 UNIT/ML 1 ML VIAL ONE; +INSULIN ASPART (NovoLOG) 100 UNIT/ML VIAL SQ ONE; +IOPAMIDOL-250 100ML BTL IV ONE; -LACTATED RINGERS 1,000 ML IV SCH; -LIDOCAINE 1% (10MG/ML) FOR IV START INTRADERMA ONE; +LIDOCAINE 1% INJ 10MG/ML (20 ML MDV) ONE; -LIDOCAINE 1% INJ 10MG/ML (20 ML MDV) SQ ONE; +LIDOCAINE 1% INJ 10MG/ML (5 ML VIAL-PF) SQ ONE; -MIDAZOLAM 2 MG/2 ML VIAL ONE; -ONDANSETRON 4 MG/2 ML VIAL IVP ONE; +ONDANSETRON 4 MG/2 ML VIAL ONE; -PHENYLEPHRINE-0.9% NACL SYG 1,000 MCG/10 ML SYRINGE ONE; -PROPOFOL 10 MG/ML 20 ML VIAL IV ONE; -ROPIVACAINE 5 MG/ML 30 ML VIAL ONE; +SODIUM CHLORIDE IV ONE; -ceFAZolin 2 GM in SODIUM CHLORIDE 0.9% 500 ML 500 ML IRRIGATION ONE; -ePHEDrine SULFATE/0.9% NACL/PF 50 MG/5 ML SYRINGE IV ONE; -fentaNYL (PF) 50 MCG/ML 2 ML AMP IV PRN
[2022-08-09 06:55] LABS: Glucose,Whole Blood 217 mg/dL (70-110)
[2022-08-09 06:58] VITALS: PULSE 16; TEMP 97.6
[2022-08-09 07:24] LABS: Calcium 8.8 mg/dL (8.4-10.2)
[2022-08-09 07:39] LABS: Potassium 5.9 mmol/L (3.5-5.1)
[2022-08-09] MEDS: fentaNYL (PF) 50 MCG/ML 2 ML AMP IV ONE ×3 (08:09→08:33)
--- NOTE | 2022-08-09 09:44 | P.OP ---
Date of Procedure: 08/09/22 Description of Procedure: Preoperative diagnosis: Malfunctioning right upper extremity loop forearm graft, found to be thrombosed this morning Postoperative diagnosis: Same Procedure: 1 ultrasound-guided AV graft access 2 #2 pharmacal mechanical thrombectomy with 6 AngioJet #3 fistulogram #4 percutaneous transluminal balloon venoplasty of the outflow 6 x 60 balloon, 7 x 60 drug-coated balloon #5 indications in the balloon angioplasty of the inflow artery 4 x 60 #6 moderate conscious sedation with personal monitoring of certified RN administration with hemodynamic monitoring 86 minutes Surgeon: Alea Guo D.O. EBL: 10 mL IV fluids: See records Urine output: Not measured Drains: None Complications: None immediately apparent Condition: Stable to recovery Operative indication and findings: Patient is a 71-year-old female in today for malfunctioning right upper extremity loop forearm graft, and preop evaluation was found to be thrombosed without any evidence of obvious pulsatility and an ultrasound was confirmed. She is here today for thrombectomy. Risks and benefits were discussed including but not limited to bleeding, infection and injury to the vessel. Singly understood and was willing to proceed. Procedure in detail: Patient was taken to the special suite and placed in supine position. The right upper extremity is prepped and draped in usual sterile fashion. Upper procedure time was performed, all parties are in agreement. Patient was given moderate sedation and personally monitored while certified RN administered. The ultrasound was utilized and the graft was cannulated in both antegrade and retrograde direction through the loop catheters and wires were used to access the [place] vessel. A venogram was performed showing small vessel with some degree of stenosis at the anastomotic portion of the vein itself. Similarly the brachial artery appeared widely patent with excellent flow into the radial and ulnar bifurcation. There did appear to be occlusion of the graft itself. The AngioJet was passed in both directions with the pulse spray of TPA for a total of 10 mg of TPA. This allowed instill and was followed back with a suction thrombectomy. A fistulogram was performed of the outflow showing significant improvement and essentially no further clot burden. There was narrowing at the distal anastomosis therefore a 6 x 60 balloon was utilized in this location. Attention was then turned towards the inflow, and similarly thrombectomy was performed. After this an image was performed showing significant improvement of flow through the graft itself. There did appear to be some evidence of stenosis of both the inflow and outflow still with some abno rmality to the outflow anastomosis. At that point the inflow anastomosis was angioplastied with a 4 x 60 balloon. There was significant improvement of flow through this area and upon reevaluation of the venous anastomosis it was decided to place a 7 x 60 drug-coated balloon for 3 minutes. This significantly improved the outflow appearance and flow through the graft itself. Catheters and wires were then removed. The sheath removed and [id number] sutures were placed. Hemostasis appeared adequate. The patient was allowed to awaken and returned to recovery in stable condition and tolerated the procedure well. She maintained a palpable radial pulse down procedure. Plan - Discharge Summary Discharge Rx Participant: No New Discharge Prescriptions: No Action Aspirin 81 mg PO DAILY Calcium Acetate [PhosLo] 667 mg PO TID-W/MEALS Lidocaine-Prilocaine Cream [Emla Cream 2.5%/2.5%] 1 applic TOPICAL MOWEFR PRN PRN Reason: DIALYSIS Acetaminophen Tab [Tylenol] 650 mg PO Q6HR PRN tab PRN Reason: Fever And/ Or Pain Insulin Glargine,Hum.rec.anlog [Basaglar Kwikpen U-100] 35 unit SQ W/LUNCH #0 Insulin Aspart [NovoLOG Flexpen] 12 units SQ TID-W/MEALS #0 Collagenase [Santyl Ointment] 1 applic TOPICAL Q2D Cholecalciferol [Vitamin D3 (25 Mcg = 1000 Iu)] 75 mcg PO DAILY Apixaban [Eliquis] 2.5 mg PO BID Fluticasone Nasal [place] [Flonase Nasal [place]] 2 spray EA NOSTRIL DAILY 30 Days #5 ml allopurinoL [Zyloprim] 100 mg PO DAILY 30 Days #30 tab Vit B Comp No.3/Folic/C/Biotin [[place] Rx Tablet] 1 tab PO DAILY 30 Days #30 tab Methoxy Peg-Epoetin Beta [Mircera] 30 mcg SQ Q30D Discharge Medication List Aspirin 81 mg PO DAILY 03/07/20 [History] Calcium Acetate [PhosLo] 667 mg PO TID-W/MEALS 12/28/20 [History] Cholecalciferol [Vitamin D3 (25 Mcg = 1000 Iu)] 75 mcg PO DAILY 05/16/21 [History] Apixaban [Eliquis] 2.5 mg PO BID 04/17/22 [History] Lidocaine-Prilocaine Cream [Emla Cream 2.5%/2.5%] 1 applic TOPICAL MOWEFR PRN 04/17/22 [History] Acetaminophen Tab [Tylenol] 650 mg PO Q6HR PRN tab 04/23/22 [Rx] Fluticasone Nasal [place] [Flonase Nasal [place]] 2 spray EA NOSTRIL DAILY 30 Days #5 ml 04/23/22 [Rx] Insulin Aspart [NovoLOG Flexpen] 12 units SQ TID-W/MEALS #0 04/23/22 [Rx] Insulin Glargine,Hum.rec.anlog [Basaglar Kwikpen U-100] 35 unit SQ W/LUNCH #0 04/23/22 [Rx] Vit B Comp No.3/Folic/C/Biotin [[place]fred[place]-[facility] Rx Tablet] 1 tab PO DAILY 30 Days #30 tab 04/23/22 [Rx] allopurinoL [Zyloprim] 100 mg PO DAILY 30 Days #30 tab 04/23/22 [Rx] Collagenase [Santyl Ointment] 1 applic TOPICAL Q2D 08/07/22 [History] Methoxy Peg-Epoetin Beta [Mircera] 30 mcg SQ Q30D 08/07/22 [History] Follow up Appointment(s)/Referral(s): Alea Guo DO [STAFF PHYSICIAN] - 4 Weeks Activity/Diet/Wound Care/Special Instructions: Okay to remove sutures at next dialysis session. May resume home medications as ordered. May bathe as previous. Return to previous activity Discharge Disposition: TRANSFER TO SNF/ECF
--- NOTE | 2022-08-09 18:17 | IR ---
EXAMINATION TYPE: IR fistula/abscess/sinus tract DATE OF EXAM: 08/09/2022 FLUOROSCOPY Fluoroscopy time of 13.8 minutes was used during upper extremity fistulogram. 13 image/s document/s the procedure. [id number].
== END ==
LOC: CATHCVL 06:23
PROVIDERS: ATTEND Surgery
DX: T82.868A Thrombosis due to vascular prosthetic devices, implants and grafts, initial encounter (principal); T82.858A Stenosis of other vascular prosthetic devices, implants and grafts, initial encounter; I13.2 Hypertensive heart and chronic kidney disease with heart failure and with stage 5 chronic kidney disease, or end stage renal disease; N18.6 End stage renal disease; Z99.2 Dependence on renal dialysis; I50.9 Heart failure, unspecified; N17.9 Acute kidney failure, unspecified; E11.22 Type 2 diabetes mellitus with diabetic chronic kidney disease; D63.1 Anemia in chronic kidney disease; E78.5 Hyperlipidemia, unspecified; J90 Pleural effusion, not elsewhere classified; E66.9 Obesity, unspecified; Z68.37 Body mass index [BMI] 37.0-37.9, adult; Z79.82 Long term (current) use of aspirin; Z79.899 Other long term (current) drug therapy; Z79.4 Long term (current) use of insulin; Z79.01 Long term (current) use of anticoagulants; Y82.8 Other medical devices associated with adverse incidents
CPT/HCPCS: 36905; 99152; 99153 ×4; 80048; C1757; C1894 ×2; C1769 ×4; C1725 ×2; C2623; J2250; J2001; J3010; J2997; J1644; Q9966; 36902; 36904

== ENCOUNTER 2023-01-18 07:32 | Observation (INO) | payer MEDICARE, OTHER ==
--- NOTE | 2023-01-18 08:01 | ED ---
Recheck HPI - General Chief Complaint: Recheck/Abnormal Lab/Rx Stated Complaint: Clogged Port Time Seen by Provider: 01/18/23 07:37 Source: patient, RN notes reviewed Mode of arrival: ambulatory Limitations: no limitations - History of Present Illness Initial Comments: This is a 72-year-old female who presents to the emergency department for problems with her dialysis port. Patient has a dialysis catheter in her right chest wall. She receives hemodialysis on Saturday, Saturday, and Saturday. She completed her dialysis on Saturday, 01/16. But did have Cathflo, 2 mg, instilled in both lumens afterwards and this was removed without difficulty. They chose to instill the Cathflo because it was acting "sluggish" per the patient. Today at dialysis, they did not get any push or pull from the venous side, and the nurses were concerned about a possible crack or air being in the port. They did not want to push air into the vein, so they stopped any further maneuvers and she was sent down to the emergency department for evaluation. They did not have any problems with the arterial side. Patient denies any complaints at this time. Dr. Guo placed the dialysis catheter initially, and this was revised by Dr. De La Torre in November of this year. MD Complaint: other (Problems with dialysis catheter) - Related Data Home Medications Medication Instructions Recorded Confirmed Calcium Acetate [PhosLo] 667 mg PO TID-W/MEALS 12/28/20 01/18/23 Cholecalciferol [Vitamin D3 (25 25 mcg PO DAILY 05/16/21 01/18/23 Mcg = 1000 Iu)] Apixaban [Eliquis] 2.5 mg PO BID 04/17/22 01/18/23 Lidocaine-Prilocaine Cream [Emla 1 applic TOPICAL MOWEFR PRN 04/17/22 01/18/23 Cream 2.5%/2.5%] Collagenase [Santyl Ointment] 1 applic TOPICAL Q2D 01/18/23 01/18/23 Insulin Aspart [NovoLOG Flexpen] 15 units SQ TID 01/18/23 01/18/23 Insulin Glargine,Hum.rec.anlog 30 units SQ AC-SUPPER 01/18/23 01/18/23 [Insulin Glargine Solostar] Previous Rx's Medication Instructions Recorded Acetaminophen Tab [Tylenol] 650 mg PO Q6HR PRN tab 04/23/22 allopurinoL [Zyloprim] 100 mg PO DAILY 30 Days #30 tab 04/23/22 Allergies Allergy/AdvReac Type Severity Reaction Status Date / Time Penicillins Allergy Severe Rash/Hives, Verified 01/18/23 16:30 Itching simvastatin [From Zocor] AdvReac Severe constipation, Verified 01/18/23 16:30 dry cough pregabalin [From Lyrica] AdvReac Confusion Verified 01/18/23 16:30 Review of Systems ROS Statement: Those systems with pertinent positive or pertinent negative responses have been documented in the HPI. ROS Other: All systems not noted in ROS Statement are negative. Past Medical History Past Medical History: Heart Failure, Diabetes Mellitus, Deep Vein Thrombosis (DVT), GERD/Reflux, Hyperlipidemia, Hypertension, Osteoarthritis (OA), Renal Disease, Skin Disorder, Vascular Disorder, Vascular Disorder Additional Past Medical History / Comment(s): 2018 respiratory failure with coma/trach/vent/feeding tube, DM type II, neuropathy bilateral feet, DVT R leg, PVD, CKD stage III/has L arm AV fistula with past dialysis, current right arm graft for current HD sat/sat/sat, chronic anemia, current wounds to bilateral feet: Left heel and Right lateral side/toes, past decub coccyx/R buttock, cellulitis R leg, osteomylitis R foot/toes, constipation/diverticular disease, bilateral tinnitis History of Any Multi-Drug Resistant Organisms: MRSA Date of last positivie culture/infection: 01/25/19 MDRO Source:: FOOT Past Surgical History: Appendectomy, Cholecystectomy, Orthopedic Surgery Additional Past Surgical History / Comment(s): 11/25/19 ligation branches L upper extremity fistula, 07/2019 L arm A/V fistula, partial amputation R 5th/3rd toe, bilateral cataracts/lens/RK, ovarian cystectomy, left upper extremity 1st Stage Vein procedure. Fistula procedure done on 04/15/20, graft on right arm for HD. Past Anesthesia/Blood Transfusion Reactions: No Reported Reaction Additional Past Anesthesia/Blood Transfusion Reaction / Comment(s): clausterphobia Past Psychological History: No Psychological Hx Reported Smoking Status: Former smoker Past Alcohol Use History: None Reported Past Drug Use History: None Reported - Past Family History Father Additional Family Medical History / Comment(s): ALCOHOLIC. . Mother Family Medical History: Cancer, CVA/TIA, Diabetes Mellitus, Myocardial Infarction ([place]) Additional Family Medical History / Comment(s): Colon cancer. . Brother(s) Additional Family Medical History / Comment(s): DRUG DEPENDENCY, alcoholic General Exam Limitations: no limitations General appearance: alert, in no apparent distress Head exam: Present: atraumatic, normocephalic, normal inspection Respiratory exam: Present: normal lung sounds bilaterally. Absent: respiratory distress, wheezes, rales, rhonchi, stridor Cardiovascular Exam: Present: regular rate, normal rhythm, normal heart sounds, other (Dialysis catheter in place in the right chest wall. No obvious cracks or damage to the visible portion.). Absent: systolic murmur, diastolic murmur, rubs, gallop, clicks Neurological exam: Present: alert, oriented X3, CN II-XII intact Psychiatric exam: Present: normal affect, normal mood Skin exam: Present: warm, dry, intact, normal color. Absent: rash Course Vital Signs 01/18/23 01/18/23 01/18/23 07:34 08:57 10:01 Temperature 98 F 97.7 F Pulse Rate 78 73 75 Respiratory 20 17 18 Rate Blood Pressure 153/77 127/67 114/62 O2 Sat by Pulse 100 100 99 Oximetry 01/18/23 01/18/23 01/18/23 12:10 14:06 15:20 Temperature 97.6 F Pulse Rate 78 73 72 Respiratory 18 17 18 Rate Blood Pressure 136/86 143/82 148/70 O2 Sat by Pulse 98 100 100 Oximetry 01/18/23 16:17 Temperature 97.6 F Pulse Rate 76 Respiratory 19 Rate Blood Pressure 154/73 O2 Sat by Pulse 100 Oximetry Medical Decision Making - Medical Decision Making This is a 72-year-old female who presents to the emergency department for problems with her dialysis catheter port. Was pt. sent in by a medical professional or institution? @ -The dialysis center Did you speak to anyone other than the patient for history? @ -Yes, the nurses at the dialysis center, who provided most of the information with regards to what was wrong with the port today. Patient provided the rest of the history with regards to prior port placement and history of the catheter port. Did you review nursing and triage notes? @ -Yes, and I agree, it is accurate with regards to the patient's symptoms. Were old charts reviewed? @ -No Differential Diagnosis? @ -Differential Dialysis Catheter Problems: Clog, malfunction, break, this is not meant to be an all-inclusive list. EKG interpreted by me (3pts min.)? @ -EKG interpreted by me demonstrating the following: Ventricular rate 79 beats per minute, [place] interval 191 ms, QRS duration 77 ms, QTC 416 ms. X-rays interpreted by me (1pt min.)? @ -Chest x-ray obtained. My interpretation identifies the dialysis catheter port in place. CT interpreted by me (1pt min.)? @ -Not obtained U/S interpreted by me (1pt. min.)? @ -Not obtained What testing was considered but not performed? (CT, X-rays, U/S, labs)? Why? @ -None What meds were considered but not given? Why? @ -None Did you discuss the management of the patient with other professionals? @ -I spoke with Dr. Ritter, who was tied up in procedures all day, and was unsure if he could get to the patient in a timely manner. He advised admission so this could be done either later this evening or tomorrow morning. Dr. Marinelli accepts the patient for admission to medicine. Did you reconcile home meds? @ -No Was smoking cessation discussed for >3mins.? @ -No Was critical care preformed (if so, how long)? @ -No Were there social determinants of health that impacted care today? How? (Homelessness, low income, unemployed, alcoholism, drug addiction, transportation, low edu. Level, literacy, decrease access to med. care, fpc, rehab)? @ -No Was there de-escalation of care discussed even if they declined? (Discuss DNR or withdrawal of care, Hospice)? @ -No What co-morbidities impacted this encounter? (DM, HTN, Smoking, COPD, CAD, Cancer, CVA, Hep., AIDS, mental health diagnosis, sleep apnea, morbid obesity)? @ -ESRD, vascular disorder Was patient admitted / discharged? @ -Admitted. Lab work obtained revealing hyperkalemia with a potassium of 5.4. Creatinine elevated at 8.03 and GFR decreased at 5, both of which are consi stent with the patient's history of renal failure. Case discussed with Dr. Ritter, who was tied up in procedures today and was unsure if he would be able to reach the patient in a timely manner for evaluation and potential replacement of hemodialysis catheter. Dr. Persaud was then contacted by them, who was agreeable to managing the patient. However, given that she is on Eliquis, this will be delayed until tomorrow. Patient admitted for observation with plan to replace or repair dialysis catheter in the morning. Nephrology consult placed and Lokelma was administered for the hyperkalemia. Undiagnosed new problem with uncertain prognosis? @ -None Drug Therapy requiring intensive monitoring for toxicity (Heparin, Nitro, Insulin, Cardizem)? @ -None Were any procedures done? @ -None Diagnosis/symptom? @ -Malfunctioning hemodialysis catheter, hyperkalemia Acute, or Chronic, or Acute on Chronic? @ -Acute Uncomplicated (without systemic symptoms) or Complicated (systemic symptoms)? @ -Uncomplicated Side effects of treatment? @ -None Exacerbation, Progression, or Severe Exacerbation] @ -Not applicable Poses a threat to life or bodily function? @ -Yes This case was discussed in detail with the attending ED physician, Dr. Mix. Presentation, findings, and treatment plan discussed in detail as well. - Lab Data Result diagrams: 01/19/23 05:46 01/19/23 05:46 Lab Results 01/18/23 01/18/23 Range/Units 08:01 08:01 WBC 7.4 (3.8-10.6) k/uL RBC 4.05 (3.80-5.40) m/uL Hgb 12.7 (11.4-16.0) gm/dL Hct 38.5 (34.0-46.0) % MCV 95.2 (80.0-100.0) fL MCH 31.3 (25.0-35.0) pg MCHC 32.9 (31.0-37.0) g/dL RDW 14.5 (11.5-15.5) % Plt Count 130 L (150-450) k/uL MPV 8.8 Neutrophils % 82 % Lymphocytes % 10 % Monocytes % 4 % Eosinophils % 3 % Basophils % 0 % Neutrophils # 6.1 (1.3-7.7) k/uL Lymphocytes # 0.7 L (1.0-4.8) k/uL Monocytes # 0.3 (0-1.0) k/uL Eosinophils # 0.2 (0-0.7) k/uL Basophils # 0.0 (0-0.2) k/uL Sodium 133 L (137-145) mmol/L Potassium 5.4 H (3.5-5.1) mmol/L Chloride 96 L (98-107) mmol/L Carbon Dioxide 21 L (22-30) mmol/L Anion Gap 16 mmol/L BUN 62 H (7-17) mg/dL Creatinine 8.03 H* (0.52-1.04) mg/dL Est GFR (CKD-EPI)AfAm 5 (>60 ml/min/1.73 sqM) Est GFR (CKD-EPI)NonAf 5 (>60 ml/min/1.73 sqM) Glucose 312 H (74-99) mg/dL Calcium 9.1 (8.4-10.2) mg/dL - Radiology Data Radiology results: report reviewed, image reviewed Disposition Clinical Impression: Hemodialysis catheter malfunction, Hyperkalemia Disposition: ADMITTED IP TO THIS HOSP
[2023-01-18 08:18] LABS: Basophils % (A) 0 %; Eosinophils # (A) 0.2 k/uL (0-0.7); Eosinophils % (A) 3 %; HCT 38.5 % (34.0-46.0); HGB 12.7 gm/dL (11.4-16.0); Lymphocytes # (A) 0.7 k/uL (1.0-4.8); Lymphocytes % (A) 10 %; MCH 31.3 pg (25.0-35.0); MCHC 32.9 g/dL (31.0-37.0); MCV 95.2 fL (80.0-100.0); Mean Platelet Volume 8.8; Monocytes # (A) 0.3 k/uL (0-1.0); Monocytes % (A) 4 %; Neutrophils # (A) 6.1 k/uL (1.3-7.7); Neutrophils % (A) 82 %; Platelet Count 130 k/uL (150-450); RBC 4.05 m/uL (3.80-5.40); RDW 14.5 % (11.5-15.5); WBC 7.4 k/uL (3.8-10.6)
[2023-01-18 08:44] LABS: African American GFR (CKD) 5 (>60 ml/min/1.73 sqM); Anion Gap 16 mmol/L; Blood Urea Nitrogen 62 mg/dL (7-17); Calcium 9.1 mg/dL (8.4-10.2); Carbon Dioxide 21 mmol/L (22-30); Chloride 96 mmol/L (98-107); Glucose 312 mg/dL (74-99); Non-African American GFR(CKD) 5 (>60 ml/min/1.73 sqM); Potassium 5.4 mmol/L (3.5-5.1); Sodium 133 mmol/L (137-145)
--- NOTE | 2023-01-18 15:00 | XR ---
EXAMINATION TYPE: XR chest 2V DATE OF EXAM: 01/18/2023 COMPARISON: 12/11/2022 HISTORY: 72-year-old female check dialysis port placement TECHNIQUE: AP and lateral views FINDINGS: There is a right-sided double-lumen hemodialysis catheter. The radiopaque marker is at the level of t he clavicles probably lower IJV are near the right brachiocephalic vein confluence. Heart borderline in size. Mild patchy opacity at the right mid lung. No pneumothorax or pleural effusion. IMPRESSION: 1. Right-sided double-lumen hemodialysis catheter. Tip likely in the upper SVC. Radiopaque marker pro bably at the lower IJV or near the right brachiocephalic vein confluence. 2. Some patchy atelectasis or early infiltrate at the right midlung.
[2023-01-18] MEDS ORDERED: NALOXONE 0.4 MG/ML 1 ML VIAL IV PRN (15:15)
[2023-01-18] MEDS ORDERED: ACETAMINOPHEN TAB 325 MG TAB PO PRN (15:15)
[2023-01-18] MEDS ORDERED: HYDROcodone/APAP 5-325MG 1 EACH TAB PO PRN (15:15)
[2023-01-18] MEDS ORDERED: ONDANSETRON 4 MG/2 ML VIAL IVP PRN (15:15)
[2023-01-18] MEDS ORDERED: SODIUM ZIRCONIUM CYCLOSILICATE 10 GM PACKET PO ONE (16:05)
--- NOTE | 2023-01-18 16:20 | P.GSCN ---
History of Present Illness History of present illness: 72-year-old white female patient known to me patient had a dialysis catheter placed a in the past the catheter was on working be changed the catheter in November she was having dialysis 3 times a week. Her last dialysis on Saturday today she was going for dialysis patient had a CAT flow 20 mg per did not work so she is scheduled to have a stricture Pitts catheter. Patient to has a history of DVT in the past is on a liquids we will hold the Ellik was today and draped place the dialysis catheter tomorrow patient has history of diabetes hypertension history of DVT in the past Neck is supple patient has a right IJ catheter and graft chest is clear good and both lungs Abdomen soft nontender Femorals are 1+ bilateral her potassium is 5.4 discuss with nephrology we'll exchange catheter in the morning nothing by mouth midnight risk and complication discussed Past Medical History Past Medical History: Heart Failure, Diabetes Mellitus, Deep Vein Thrombosis (DVT), GERD/Reflux, Hyperlipidemia, Hypertension, Osteoarthritis (OA), Renal Dis ease, Skin Disorder, Vascular Disorder, Vascular Disorder Additional Past Medical History / Comment(s): 2017 respiratory failure with coma/trach/vent/feeding tube, DM type II, neuropathy bilateral feet, DVT R leg, PVD, CKD stage III/has L arm AV fistula with past dialysis, current right arm graft for current HD sat/sat/sat, chronic anemia, current wounds to bilateral feet: Left heel and Right lateral side/toes, past decub coccyx/R buttock, cellulitis R leg, osteomylitis R foot/toes, constipation/diverticular disease, bilateral tinnitis History of Any Multi-Drug Resistant Organisms: MRSA Year Discovered:: 01/25/19 MDRO Source:: FOOT Past Surgical History: Appendectomy, Cholecystectomy, Orthopedic Surgery Additional Past Surgical History / Comment(s): 11/25/19 ligation branches L upper extremity fistula, 07/2019 L arm A/V fistula, partial amputation R 5th/3rd toe, bilateral cataracts/lens/RK, ovarian cystectomy, left upper extremity 1st Stage Vein procedure. Fistula procedure done on 04/15/20, graft on right arm for HD. Past Anesthesia/Blood Transfusion Reactions: No Reported Reaction Additional Past Anesthesia/Blood Transfusion Reaction / Comm: clausterphobia Past Psychological History: No Psychological Hx Reported Smoking Status: Former smoker Past Alcohol Use History: None Reported Past Drug Use History: None Reported - Past Family History Father Additional Family Medical History / Comment(s): ALCOHOLIC. . Mother Family Medical History: Cancer, CVA/TIA, Diabetes Mellitus, Myocardial Infarction ([place]) Additional Family Medical History / Comment(s): Colon cancer. . Brother(s) Additional Family Medical History / Comment(s): DRUG DEPENDENCY, alcoholic Medications and Allergies Home Medications Medication Instructions Recorded Confirmed Type Aspirin 81 mg PO DAILY 03/07/20 08/09/22 History Calcium Acetate [PhosLo] 667 mg PO TID-W/MEALS 12/28/20 08/07/22 History Cholecalciferol [Vitamin D3 (25 75 mcg PO DAILY 05/16/21 08/07/22 History Mcg = 1000 Iu)] Apixaban [Eliquis] 2.5 mg PO BID 04/17/22 08/09/22 History Lidocaine-Prilocaine Cream [Emla 1 applic TOPICAL MOWEFR PRN 04/17/22 08/07/22 History Cream 2.5%/2.5%] Acetaminophen Tab [Tylenol] 650 mg PO Q6HR PRN tab 04/23/22 08/07/22 Rx Fluticasone Nasal [place] [Flonase 2 spray EA NOSTRIL DAILY 30 Days 04/23/22 08/07/22 Rx Nasal [place]] #5 ml Insulin Aspart [NovoLOG Flexpen] 12 units SQ TID-W/MEALS #0 04/23/22 08/07/22 Rx Insulin Glargine,Hum.rec.anlog 35 unit SQ W/LUNCH #0 04/23/22 08/07/22 Rx [Basaglar Kwikpen U-100] Vit B Comp No.3/Folic/C/Biotin 1 tab PO DAILY 30 Days #30 tab 04/23/22 08/07/22 Rx [Alfreda-Francine Rx Tablet] allopurinoL [Zyloprim] 100 mg PO DAILY 30 Days #30 tab 04/23/22 08/07/22 Rx Collagenase [Santyl Ointment] 1 applic TOPICAL Q2D 08/07/22 08/07/22 History Methoxy Peg-Epoetin Beta [Mircera] 30 mcg SQ Q30D 08/07/22 08/09/22 History Allergies Allergy/AdvReac Type Severity Reaction Status Date / Time Penicillins Allergy Severe Rash/Hives, Verified 01/18/23 07:37 Itching simvastatin [From Zocor] AdvReac Severe constipation, Verified 01/18/23 07:37 dry cough pregabalin [From Lyrica] AdvReac Unknown Verified 01/18/23 07:37 Surgical - Exam Vital Signs Temp Pulse Resp BP Pulse Ox 98 F 78 20 153/77 100 01/18/23 07:34 01/18/23 07:34 01/18/23 07:34 01/18/23 07:34 01/18/23 07:34 Results - Labs 01/18/23 08:01 01/18/23 08:01 Abnormal Lab Results - Last 24 Hours (Table) 01/18/23 01/18/23 Range/Units 08:01 08:01 Plt Count 130 L (150-450) k/uL Lymphocytes # 0.7 L (1.0-4.8) k/uL Sodium 133 L (137-145) mmol/L Potassium 5.4 H (3.5-5.1) mmol/L Chloride 96 L (98-107) mmol/L Carbon Dioxide 21 L (22-30) mmol/L BUN 62 H (7-17) mg/dL Creatinine 8.03 H* (0.52-1.04) mg/dL Glucose 312 H (74-99) mg/dL Diabetes panel 01/18/23 Range/Units 08:01 Sodium 133 L (137-145) mmol/L Potassium 5.4 H (3.5-5.1) mmol/L Chloride 96 L (98-107) mmol/L Carbon Dioxide 21 L (22-30) mmol/L BUN 62 H (7-17) mg/dL Creatinine 8.03 H* (0.52-1.04) mg/dL Glucose 312 H (74-99) mg/dL Calcium 9.1 (8.4-10.2) mg/dL Calcium panel 01/18/23 Range/Units 08:01 Calcium 9.1 (8.4-10.2) mg/dL Pituitary panel 01/18/23 Range/Units 08:01 Sodium 133 L (137-145) mmol/L Potassium 5.4 H (3.5-5.1) mmol/L Chloride 96 L (98-107) mmol/L Carbon Dioxide 21 L (22-30) mmol/L BUN 62 H (7-17) mg/dL Creatinine 8.03 H* (0.52-1.04) mg/dL Glucose 312 H (74-99) mg/dL Calcium 9.1 (8.4-10.2) mg/dL Adrenal panel 01/18/23 Range/Units 08:01 Sodium 133 L (137-145) mmol/L Potassium 5.4 H (3.5-5.1) mmol/L Chloride 96 L (98-107) mmol/L Carbon Dioxide 21 L (22-30) mmol/L BUN 62 H (7-17) mg/dL Creatinine 8.03 H* (0.52-1.04) mg/dL Glucose 312 H (74-99) mg/dL Calcium 9.1 (8.4-10.2) mg/dL
[2023-01-18] MEDS ORDERED: DEXTROSE 50% SYRINGE 50 ML IVP PRN ×2 (16:31)
--- NOTE | 2023-01-18 16:33 | P.HPIM ---
History of Present Illness H&P Date: 01/18/23 Patient is a 72-year-old female with history of ESRD on hemodialysis Saturday, insulin-dependent diabetes, history of DVT, hypertension, diastolic heart failure, obesity presenting with malfunctioning dialysis catheter. She claims that the dialysis catheter has been malfunctioning for a few weeks, her last dialysis session was on Saturday. They were not even able to attempt during dialysis today. She has been on hemodialysis for almost 2-3 years. ESRD was likely secondary to diabetes and hypertension. She has had AV graft in the past which also failed. Currently she denies any chest pain, shortness of breath, abdominal pain, nausea, vomiting, bowel complaints. She makes minimal urine. She is a former smoker, denies any alcohol use or illicit drug use. In the ED, temperature was 98, pulse 78, respiratory rate 20, blood pressure 152/77, saturating at 100% on room air. WBC 7.4, hemoglobin 12.7, platelet 1:30, sodium 133, potassium 5.4, BUN 62, creatinine 8.03, glucose 312. EKG independently interpreted shows sinus rhythm. Chest x-ray independently interpreted dialysis catheter noted on the right, no opacities. Vascular surgery and nephrology consulted. Patient being admitted for observation. Pertinent positives and negatives as discussed in HPI, a complete review of systems was performed and all other systems are negative. Patient seen and examined at bedside. Vital signs reviewed General: nontoxic, no distress, appears at stated age Derm: warm, dry, and dialysis catheter site clean, dry, intact Head: atraumatic, normocephalic, symmetric Eyes: EOMI, no lid lag, anicteric sclera, pupils equal round reactive to light ENT: Nose and ears atraumatic Neck: No thyromegaly, supple Mouth: no lip lesion, mucus membranes moist Cardiovascular: S1S2 reg, no murmur, no edema Lungs: clear to auscultation bilateral, no rhonchi, no rales, no wheeze, no accessory muscle use Abdominal: soft, nontender to palpation, no guarding, no appreciable organomegaly Ext: no gross muscle atrophy, muscle strength muscle strength 5 out of 5 in all 4 extremities, no contractures Neuro: CN II-XII grossly intact Psych: Alert, oriented, appropriate affect Assessment/Plan: Active: Malfunctioning hemodialysis catheter ESRD on hemodialysis Mild hyperkalemia Mild hyponatremia Metabolic acidosis -Vascular surgery consulted, pending further recommendations -Nephrology also consulted for resuming hemodialysis, patient did not get hemodialysis today -Electrolyte abnormality should improve with dialysis -Repeat BMP tomorrow Mild, thrombocytopenia -Repeat CBC tomorrow, no active bleeding Insulin-dependent diabetes, with hyperglycemia -Continue home insulin -Sliding scale insulin before meals at bedtime -Monitor for hypoglycemia Chronic: History of DVT Gout Diastolic CHF Obesity The patient is admitted with an anticipated less than 2 midnight stay as observation status for evaluation of malfunctioning dialysis catheter. Surrogate decision-maker: Power of energy attorney CODE STATUS: Full code DVT prophylaxis: Eliquis Anticipated discharge date: Pending clinical course Anticipated discharge place: Pending clinical course A total of 55 minutes was spent on the care of this complex patient more than 50% of the time was spent in counseling and care coordination. Past Medical History Past Medical History: Heart Failure, Diabetes Mellitus, Deep Vein Thrombosis (DVT), GERD/Reflux, Hyperlipidemia, Hypertension, Osteoarthritis (OA), Renal Dis ease, Skin Disorder, Vascular Disorder, Vascular Disorder Additional Past Medical History / Comment(s): 2018 respiratory failure with coma/trach/vent/feeding tube, DM type II, neuropathy bilateral feet, DVT R leg, PVD, CKD stage III/has L arm AV fistula with past dialysis, current right arm graft for current HD sat/sat/sat, chronic anemia, current wounds to bilateral feet: Left heel and Right lateral side/toes, past decub coccyx/R buttock, cellulitis R leg, osteomylitis R foot/toes, constipation/diverticular disease, bilateral tinnitis History of Any Multi-Drug Resistant Organisms: MRSA Date of last positivie culture/infection: 01/25/19 MDRO Source:: FOOT Past Surgical History: Appendectomy, Cholecystectomy, Orthopedic Surgery Additional Past Surgical History / Comment(s): 11/25/19 ligation branches L upper extremity fistula, 07/2019 L arm A/V fistula, partial amputation R 5th/3rd toe, bilateral cataracts/lens/RK, ovarian cystectomy, left upper extremity 1st Stage Vein procedure. Fistula procedure done on 04/15/20, graft on right arm for HD. Past Anesthesia/Blood Transfusion Reactions: No Reported Reaction Additional Past Anesthesia/Blood Transfusion Reaction / Comment(s): kannan webster Past Psychological History: No Psychological Hx Reported Smoking Status: Former smoker Past Alcohol Use History: None Reported Past Drug Use History: None Reported - Past Family History Father Additional Family Medical History / Comment(s): ALCOHOLIC. . Mother Family Medical History: Cancer, CVA/TIA, Diabetes Mellitus, Myocardial Infarction ([place]) Additional Family Medical History / Comment(s): Colon cancer. . Brother(s) Additional Family Medical History / Comment(s): DRUG DEPENDENCY, alcoholic Medications and Allergies Home Medications Medication Instructions Recorded Confirmed Type Calcium Acetate [PhosLo] 667 mg PO TID-W/MEALS 12/28/20 01/18/23 History Cholecalciferol [Vitamin D3 (25 25 mcg PO DAILY 05/16/21 01/18/23 History Mcg = 1000 Iu)] Apixaban [Eliquis] 2.5 mg PO BID 04/17/22 01/18/23 History Lidocaine-Prilocaine Cream [Emla 1 applic TOPICAL MOWEFR PRN 04/17/22 01/18/23 History Cream 2.5%/2.5%] Acetaminophen Tab [Tylenol] 650 mg PO Q6HR PRN tab 04/23/22 01/18/23 Rx allopurinoL [Zyloprim] 100 mg PO DAILY 30 Days #30 tab 04/23/22 01/18/23 Rx Collagenase [Santyl Ointment] 1 applic TOPICAL Q2D 01/18/23 01/18/23 History Insulin Aspart [NovoLOG Flexpen] 15 units SQ TID 01/18/23 01/18/23 History Insulin Glargine,Hum.rec.anlog 30 units SQ AC-SUPPER 01/18/23 01/18/23 History [Insulin Glargine Solostar] Allergies Allergy/AdvReac Type Severity Reaction Status Date / Time Penicillins Allergy Severe Rash/Hives, Verified 01/18/23 16:30 Itching simvastatin [From Zocor] AdvReac Severe constipation, Verified 01/18/23 16:30 dry cough pregabalin [From Lyrica] AdvReac Confusion Verified 01/18/23 16:30 Physical Exam Vitals: Vital Signs Temp Pulse Resp BP Pulse Ox 01/18/23 16:17 97.6 F 76 19 154/73 100 01/18/23 15:20 72 18 148/70 100 01/18/23 14:06 97.6 F 73 17 143/82 100 01/18/23 12:10 78 18 136/86 98 01/18/23 10:01 75 18 114/62 99 01/18/23 08:57 97.7 F 73 17 127/67 100 01/18/23 07:34 98 F 78 20 153/77 100 Intake and Output 01/18/23 01/18/23 01/18/23 06:59 14:59 22:59 Other: Weight 114 kg Results CBC & Chem 7: 01/18/23 08:01 01/18/23 08:01 Labs: Abnormal Lab Results - Last 24 Hours (Table) 01/18/23 01/18/23 Range/Units 08:01 08:01 Plt Count 130 L (150-450) k/uL Lymphocytes # 0.7 L (1.0-4.8) k/uL Sodium 133 L (137-145) mmol/L Potassium 5.4 H (3.5-5.1) mmol/L Chloride 96 L (98-107) mmol/L Carbon Dioxide 21 L (22-30) mmol/L BUN 62 H (7-17) mg/dL Creatinine 8.03 H* (0.52-1.04) mg/dL Glucose 312 H (74-99) mg/dL
[2023-01-18] MEDS ORDERED: INSULIN DETEMIR (LEVEMIR) 100 UNIT/ML SYR SQ SCH (17:30)
[2023-01-18 17:42] LABS: Glucose,Whole Blood 299 mg/dL (70-110)
[2023-01-18] MEDS: CALCIUM ACETATE 667 MG TAB PO SCH (18:01)
[2023-01-18] MEDS: INSULIN ASPART (NovoLOG) 100 UNIT/ML VIAL SQ SCH ×3 (18:01→21:17)
[2023-01-18] MEDS: APIXABAN 2.5 MG TABLET PO SCH (19:59)
[2023-01-18 21:02] LABS: Glucose,Whole Blood 201 mg/dL (70-110)
[2023-01-19 06:10] LABS: Basophils % (A) 0 %; Eosinophils # (A) 0.2 k/uL (0-0.7); Eosinophils % (A) 4 %; HCT 37.8 % (34.0-46.0); HGB 12.2 gm/dL (11.4-16.0); Lymphocytes # (A) 0.8 k/uL (1.0-4.8); Lymphocytes % (A) 12 %; MCH 30.5 pg (25.0-35.0); MCHC 32.3 g/dL (31.0-37.0); MCV 94.3 fL (80.0-100.0); Mean Platelet Volume 8.5; Monocytes # (A) 0.3 k/uL (0-1.0); Monocytes % (A) 4 %; Neutrophils % (A) 78 %; Platelet Count 131 k/uL (150-450); RBC 4.01 m/uL (3.80-5.40); RDW 14.8 % (11.5-15.5); WBC 6.4 k/uL (3.8-10.6)
[2023-01-19 06:24] LABS: African American GFR (CKD) 5 (>60 ml/min/1.73 sqM); Anion Gap 17 mmol/L; Blood Urea Nitrogen 77 mg/dL (7-17); Calcium 8.9 mg/dL (8.4-10.2); Carbon Dioxide 20 mmol/L (22-30); Chloride 99 mmol/L (98-107); Glucose 112 mg/dL (74-99); Non-African American GFR(CKD) 4 (>60 ml/min/1.73 sqM); Sodium 136 mmol/L (137-145)
[2023-01-19 06:38] LABS: Glucose,Whole Blood 130 mg/dL (70-110)
[2023-01-19] MEDS: INSULIN ASPART (NovoLOG) 100 UNIT/ML VIAL SQ SCH ×4 (06:42→12:16)
[2023-01-19] MEDS ORDERED: SODIUM CHLORIDE 0.9% 500 ML 500 ML IV ONE (08:20)
[2023-01-19] MEDS ORDERED: LIDOCAINE 1% INJ 10MG/ML (30 ML VIAL-PF) SQ ONE ×2 (08:30→08:31)
[2023-01-19] MEDS ORDERED: MIDAZOLAM 2 MG/2 ML VIAL IVP ONE (08:31)
[2023-01-19] MEDS ORDERED: fentaNYL (PF) 50 MCG/1 ML VIAL IVP ONE ×2 (08:46)
[2023-01-19] MEDS ORDERED: CHOLECALCIFEROL 25 MCG (1000 IU) TABLET PO SCH (09:00)
[2023-01-19] MEDS ORDERED: allopurinoL 100 MG TAB PO SCH (09:00)
--- NOTE | 2023-01-19 09:43 | PCN ---
PROCEDURE NOTE PREOPERATIVE DIAGNOSES: 1. Acute on chronic renal failure. 2. Malfunctioning dialysis catheter. POSTOPERATIVE DIAGNOSES: 1. Acute on chronic renal failure. 2. Malfunctioning dialysis catheter. PROCEDURES: Placement of a 23 cm dialysis catheter, right jugular approach. INDICATIONS: This patient had a dialysis catheter placed in the past 2 months ago, but catheter was not working. DESCRIPTION OF PROCEDURE: The patient was brought to the lab tech. 2 g of Kefzol was given. Right side of the neck and chest was prepped and draped in usual sterile manner. 1% lidocaine was infiltrated in the neck and chest area with IV sedation. Small incision was made in the neck. Catheter was identified and divided, and passed a glidewire, which was parked in the inferior vena cava. Then, a tunnel was created. Through the tunnel, we brought a 23 cm precurved catheter. Sheath was advanced on top of the guidewire. Through the sheath, we introduced the dialysis catheter. Guidewire was removed. Tip of the catheter was in the superior vena caval atrial junction, flushed with heparin saline and hep-locked, secured with 3-0 nylon. Dressing applied. The patient tolerated the procedure well. MMODL / IJN: [id number] /
--- NOTE | 2023-01-19 10:09 | XR ---
EXAMINATION TYPE: XR chest 1V confirm line plcmt DATE OF EXAM: 01/19/2023 10:03 AM CLINICAL INDICATION:Female, 72 years old with history of DIALYSIS EXCHANGE; [facility] COMPARISON: Chest radiographs from 01/18/2023 TECHNIQUE: XR chest 1V confirm line plcmt Frontal view of the chest. FINDINGS: Lungs/Pleura: There is no evidence of pleural effusion, focal consolidation, or pneumothorax. Pulmonary vascularity: Unremarkable. Heart/mediastinum: Cardiomediastinal silhouette is unremarkable. Musculoskeletal: No acute osseous pathology. Other findings: None Lines/Tubes: Right internal jugular central venous catheter with distal tip at the cavoatrial junction. IMPRESSION: Right central venous catheter with tip in appropriate position.
[2023-01-19] MEDS ORDERED: COLLAGENASE 250 UNIT/GM OINTMENT 30 GM TUBE TOPICAL SCH (11:00)
[2023-01-19 11:58] VITALS: BP 138/85; PULSE 69; RESP 16; TEMP 97.6
--- NOTE | 2023-01-19 12:06 | P.NPCON ---
History of Present Illness - Reason for Consult end stage renal disease - History of Present Illness Reason for consultation: End-stage renal disease History of present illness: Patient is a 72-year-old female seen in renal consultation for end-stage renal disease. She is maintained on hemodialysis on Saturday schedule via permacath. Patient's last hemodialysis treatment was on Saturday. Patient missed Saturday's treatment due to malfunction a permacath. The catheter was exchanged this morning. She scheduled to get dialysis today. She denies chest pain or shortness of breath. No vomiting or diarrhea. No fever or chills. Hemodynamically stable. No vomiting or diarrhea. No active complaints. Vital signs are stable. General: No acute distress. HEENT: Head exam is unremarkable. LUNGS: Notable rhonchi or wheezes. HEART: Rate and Rhythm are regular. ABDOMEN: Nontender. EXTREMITITES: 1+ edema. Past Medical History Past Medical History: Heart Failure, Diabetes Mellitus, Deep Vein Thrombosis (DVT), GERD/Reflux, Hyperlipidemia, Hypertension, Osteoarthritis (OA), Renal Disease, Skin Disorder, Vascular Disorder, Vascular Disorder Additional Past Medical History / Comment(s): 2018 respiratory failure with com a/trach/vent/feeding tube, DM type II, neuropathy bilateral feet, DVT R leg, PVD, CKD stage III/has L arm AV fistula with past dialysis, current right arm graft for current HD sat/sat/sat, chronic anemia, current wounds to bilateral feet: Left heel and Right lateral side/toes, past decub coccyx/R buttock, cellulitis R leg, osteomylitis R foot/toes, constipation/diverticular disease, bilateral tinnitis History of Any Multi-Drug Resistant Organisms: MRSA Date of last positivie culture/infection: 01/25/19 MDRO Source:: FOOT Past Surgical History: Appendectomy, Cholecystectomy, Orthopedic Surgery Additional Past Surgical History / Comment(s): 11/25/19 ligation branches L upper extremity fistula, 07/2019 L arm A/V fistula, partial amputation R 5th/3rd toe, bilateral cataracts/lens/RK, ovarian cystectomy, left upper extremity 1st Stage Vein procedure. Fistula procedure done on 04/15/20, graft on right arm for HD. Past Anesthesia/Blood Transfusion Reactions: No Reported Reaction Additional Past Anesthesia/Blood Transfusion Reaction / Comment(s): clausterphobia Past Psychological History: No Psychological Hx Reported Additional Psychological History / Comment(s): She is incontinent of urine. She doesn't have a history of alcohol use. 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 No international travel. no experience. Has her pet cat, Guille was given away when she lost her apt. Smoking Status: Former smoker Past Alcohol Use History: None Reported Additional Past Alcohol Use History / Comment(s): started smoking age 20 (1970) and quit 1990, smoked 1 ppd Past Drug Use History: None Reported Additional Drug Use History / Comment(s): denies use - Past Family History Father Additional Family Medical History / Comment(s): ALCOHOLIC. . Mother Family Medical History: Cancer, CVA/TIA, Diabetes Mellitus, Myocardial Infarction ([place]) Additional Family Medical History / Comment(s): Colon cancer. . Brother(s) Additional Family Medical History / Comment(s): DRUG DEPENDENCY, alcoholic Medications and Allergies Home Medications Medication Instructions Recorded Confirmed Type Calcium Acetate [PhosLo] 667 mg PO TID-W/MEALS 12/28/20 01/18/23 History Cholecalciferol [Vitamin D3 (25 25 mcg PO DAILY 05/16/21 01/18/23 History Mcg = 1000 Iu)] Apixaban [Eliquis] 2.5 mg PO BID 04/17/22 01/18/23 History Lidocaine-Prilocaine Cream [Emla 1 applic TOPICAL MOWEFR PRN 04/17/22 01/18/23 History Cream 2.5%/2.5%] Acetaminophen Tab [Tylenol] 650 mg PO Q6HR PRN tab 04/23/22 01/18/23 Rx allopurinoL [Zyloprim] 100 mg PO DAILY 30 Days #30 tab 04/23/22 01/18/23 Rx Collagenase [Santyl Ointment] 1 applic TOPICAL Q2D 01/18/23 01/18/23 History Insulin Aspart [NovoLOG Flexpen] 15 units SQ TID 01/18/23 01/18/23 History Insulin Glargine,Hum.rec.anlog 30 units SQ AC-SUPPER 01/18/23 01/18/23 History [Insulin Glargine Solostar] Allergies Allergy/AdvReac Type Severity Reaction Status Date / Time Penicillins Allergy Severe Rash/Hives, Verified 01/18/23 16:30 Itching simvastatin [From Zocor] AdvReac Severe constipation, Verified 01/18/23 16:30 dry cough pregabalin [From Lyrica] AdvReac Confusion Verified 01/18/23 16:30 Physical Exam Vitals: Vital Signs Temp Pulse Pulse Resp BP BP Pulse Ox 01/19/23 09:45 69 138/85 01/19/23 09:30 73 113/64 01/19/23 09:15 97.6 F 74 16 140/73 100 01/19/23 08:00 15 01/19/23 07:30 98.1 F 73 15 121/70 98 01/19/23 04:55 98.1 F 82 16 120/74 99 01/18/23 20:58 97.8 F 95 16 120/76 99 01/18/23 16:17 97.6 F 76 19 154/73 100 01/18/23 15:20 72 18 148/70 100 01/18/23 14:06 97.6 F 73 17 143/82 100 01/18/23 12:10 78 18 136/86 98 Intake and Output 01/18/23 01/19/23 01/19/23 22:59 06:59 14:59 Intake Total 100 Balance 100 Intake: IV 100 Other: # Voids 1 1 Weight 114 kg Results - Lab Results Most recent lab results Calcium 8.9 mg/dL (8.4-10.2) 01/19/23 05:46 01/19/23 05:46 01/19/23 05:46 Assessment and Plan Plan: Assessment: 1. End-stage renal disease maintained on hemodialysis on Saturday schedule via permacath. 2. Malfunctioning permacath status post replacement is moaning. 3. Chronic kidney disease mineral bone disease maintained on PhosLo. 4. Diabetes mellitus. Plan: Hemodialysis today. Next treatment on Saturday. Potential discharge after dialysis today. Follow up with vascular surgery outpatient for long-term access. Thank you for the consultation. I will continue to follow the patient with you during her hospital stay.
[2023-01-19 12:15] LABS: Glucose,Whole Blood 119 mg/dL (70-110)
--- NOTE | 2023-01-19 14:08 | P.DS ---
Providers Date of admission: 01/18/23 15:38 Expected date of discharge: 01/19/23 Attending physician: You Marinelli MD Consults: 01/18/23 15:15 Consult Physician Urgent Consulting Provider: Marcio Pedersen Consult Reason/Comments: Hemodialysis patient, malfunctioning catheter Do you want consulting provider notified?: Yes Consult Physician Urgent Consulting Provider: Reddy Persaud Consult Reason/Comments: Malfunctioning hemodialysis catheter Do you want consulting provider notified?: Already Contacted Primary care physician: Parrish Santoyo MD Hospital Course: Discharge Diagnosis: Malfunctioning hemodialysis catheter End-stage renal disease on hemodialysis Saturday/Saturday/Saturday Chronic Left foot wound, present on admission Mild hyperkalemia Mild hyponatremia Metabolic acidosis Insulin-dependent diabetes, with hyperglycemia Mild, thrombocytopenia History of DVT Gout Chronic Diastolic CHF Obesity Hospital Course: Patient is a 72-year-old female with end-stage renal disease on hemodialysis Saturday/Saturday/Saturday, diabetes mellitus with insulin requirements, hypertension, diastolic congestive heart failure, and obesity who presented to the emergency department due to a malfunctioning hemodialysis catheter is they were unable to do dialysis at the outpatient clinic today. On arrival to the ER her vital signs within normal limits. Laboratory analysis was remarkable for platelets of 1:30, sodium 133, potassium 5.4, BUN 62, and creatinine 8.03 with a glucose of 312. Patient was subsequently placed in observation. Vascular surgery was consulted for Eliquis was held with plans interventional catheter 01/19. On the morning of 01/19/23 she had a dialysis catheter placed in the right internal jugular vein. She tolerated this well. She then received a round of dialysis without any complications. Case discussed with nephrology who cleared the patient for discharge. She was determined stable for discharge home Follow up: Hemodialysis on Sunday 01/21. Patient seen and examined after returning to her room from having hemodialysis catheter placed. She was doing well and feeling groggy. She was hoping for discharge after dialysis. Vital signs reviewed and stable. General: nontoxic, no distress, appears at stated age Cardiovascular: S1S2 reg, no murmur, positive posterior tibial pulse bilateral, Lungs: CTA bilateral, no rhonchi, no rales , no accessory muscle use Abdominal: soft, nontender to palpation, no guarding, no appreciable organomegaly Ext: no gross muscle atrophy, no edema b/l lower extremities, no contractures Neuro: CN II-XI grossly intact, no focal neuro deficits Psych: Alert, oriented, appropriate affect A total of 32 minutes of time were spent preparing this complex discharge summary. Patient was discharged on 01/19/23. This dictation was prepared using [employer] voice recognition software. Though every attempt is made to correct errors during dictation some may still exist. Plan - Discharge Summary Discharge Rx Participant: Yes New Discharge Prescriptions: Continue Calcium Acetate [PhosLo] 667 mg PO TID-W/MEALS Lidocaine-Prilocaine Cream [Emla Cream 2.5%/2.5%] 1 applic TOPICAL MOWEFR PRN PRN Reason: avf access Acetaminophen Tab [Tylenol] 650 mg PO Q6HR PRN tab PRN Reason: Fever And/ Or Pain Insulin Glargine,Hum.rec.anlog [Insulin Glargine Solostar] 30 units SQ AC- SUPPER Insulin Aspart [NovoLOG Flexpen] 15 units SQ TID Cholecalciferol [Vitamin D3 (25 Mcg = 1000 Iu)] 25 mcg PO DAILY Apixaban [Eliquis] 2.5 mg PO BID allopurinoL [Zyloprim] 100 mg PO DAILY 30 Days #30 tab Collagenase [Santyl Ointment] 1 applic TOPICAL Q2D Discharge Medication List Calcium Acetate [PhosLo] 667 mg PO TID-W/MEALS 12/28/20 [History] Cholecalciferol [Vitamin D3 (25 Mcg = 1000 Iu)] 25 mcg PO DAILY 05/16/21 [History] Apixaban [Eliquis] 2.5 mg PO BID 04/17/22 [History] Lidocaine-Prilocaine Cream [Emla Cream 2.5%/2.5%] 1 applic TOPICAL MOWEFR PRN 04/17/22 [History] Acetaminophen Tab [Tylenol] 650 mg PO Q6HR PRN tab 04/23/22 [Rx] allopurinoL [Zyloprim] 100 mg PO DAILY 30 Days #30 tab 04/23/22 [Rx] Collagenase [Santyl Ointment] 1 applic TOPICAL Q2D 01/18/23 [History] Insulin Aspart [NovoLOG Flexpen] 15 units SQ TID 01/18/23 [History] Insulin Glargine,Hum.rec.anlog [Insulin Glargine Solostar] 30 units SQ AC-SUPPER 01/18/23 [History] Follow up Appointment(s)/Referral(s): Parrish Santoyo MD [Primary Care Provider] - 1-2 days Marcio Pedersen DO [STAFF PHYSICIAN] - 1 Week (or Jovani at dialysis) [facility] [NON-STAFF] - 1 Week (on Saturday as scheduled) Activity/Diet/Wound Care/Special Instructions: Diet: Renal, Carb consistent Wound Care: Please continue to follow with Wound care clinic and home health for your chronic foot wound. Discharge Disposition: HOME WITH HOME HEALTH SERVICES
[2023-01-19] MEDS: CALCIUM ACETATE 667 MG TAB PO SCH (14:36)
[2023-01-19] MEDS: APIXABAN 2.5 MG TABLET PO SCH (14:36)
--- NOTE | 2023-01-21 08:49 | IR ---
EXAMINATION TYPE: IR cvc insert central tunneled DATE OF EXAM: 01/19/2023 COMPARISON: NONE HISTORY: Fluoroscopy time. Fluoroscopy was provided to the referring clinician.
== END 2023-01-19 16:22 | disposition home health service (06) ==
LOC: EC 07:32 → 6NMEDSUR 15:38
PROVIDERS: ADMIT Student in an Organized Health Care Education/Training Program; ATTEND Student in an Organized Health Care Education/Training Program
DX: T82.41XA Breakdown (mechanical) of vascular dialysis catheter, initial encounter (principal); Y71.2 Prosthetic and other implants, materials and accessory cardiovascular devices associated with adverse incidents; E87.5 Hyperkalemia; E87.1 Hypo-osmolality and hyponatremia; E87.20 Acidosis, unspecified; D69.6 Thrombocytopenia, unspecified; N17.9 Acute kidney failure, unspecified; I13.2 Hypertensive heart and chronic kidney disease with heart failure and with stage 5 chronic kidney disease, or end stage renal disease; I50.32 Chronic diastolic (congestive) heart failure; N18.6 End stage renal disease; K21.9 Gastro-esophageal reflux disease without esophagitis; E78.5 Hyperlipidemia, unspecified; E11.40 Type 2 diabetes mellitus with diabetic neuropathy, unspecified; E11.22 Type 2 diabetes mellitus with diabetic chronic kidney disease; D63.1 Anemia in chronic kidney disease; N25.0 Renal osteodystrophy; E11.621 Type 2 diabetes mellitus with foot ulcer; L97.409 Non-pressure chronic ulcer of unspecified heel and midfoot with unspecified severity; M10.9 Gout, unspecified; E66.9 Obesity, unspecified; Z68.36 Body mass index [BMI] 36.0-36.9, adult; Z86.718 Personal history of other venous thrombosis and embolism; Z87.891 Personal history of nicotine dependence; Z99.3 Dependence on wheelchair; Z79.01 Long term (current) use of anticoagulants; Z79.4 Long term (current) use of insulin; Z79.899 Other long term (current) drug therapy; Z88.0 Allergy status to penicillin; Z99.2 Dependence on renal dialysis
CPT/HCPCS: 96372; 99285; 36415; 93005; 36581; 80048 ×2; 85025 ×2; 83036; 71046; G0378 ×2; C1769 ×2; C1750; J2250; J0690; J2001; J3010

== ENCOUNTER 2023-03-06 07:50 | Emergency (ER) | payer MEDICARE, OTHER ==
[2023-03-06 07:58] VITALS: RESP 18
--- NOTE | 2023-03-06 08:07 | ED ---
General Adult HPI - General Chief complaint: Recheck/Abnormal Lab/Rx Stated complaint: Cath malfunction Time Seen by Provider: 03/06/23 07:58 Source: patient, RN notes reviewed Mode of arrival: ambulatory Limitations: no limitations - History of Present Illness Initial comments: Patient is a pleasant 72-year-old female presenting to the emergency department from dialysis. Patient had bleeding from her catheter site right anterior chest. Patient states they were worried about doing dialysis secondary to this and sent patient to the emergency department. Patient has no new discomfort or any other symptoms. Patient had dialysis started but not completed. - Related Data Home Medications Medication Instructions Recorded Confirmed Calcium Acetate [PhosLo] 667 mg PO TID-W/MEALS 12/28/20 01/18/23 Cholecalciferol [Vitamin D3 (25 25 mcg PO DAILY 05/16/21 01/18/23 Mcg = 1000 Iu)] Apixaban [Eliquis] 2.5 mg PO BID 04/17/22 01/18/23 Lidocaine-Prilocaine Cream [Emla 1 applic TOPICAL MOWEFR PRN 04/17/22 01/18/23 Cream 2.5%/2.5%] Collagenase [Santyl Ointment] 1 applic TOPICAL Q2D 01/18/23 01/18/23 Insulin Aspart [NovoLOG Flexpen] 15 units SQ TID 01/18/23 01/18/23 Insulin Glargine,Hum.rec.anlog 30 units SQ AC-SUPPER 01/18/23 01/18/23 [Insulin Glargine Solostar] Previous Rx's Medication Instructions Recorded Acetaminophen Tab [Tylenol] 650 mg PO Q6HR PRN tab 04/23/22 allopurinoL [Zyloprim] 100 mg PO DAILY 30 Days #30 tab 04/23/22 Allergies Allergy/AdvReac Type Severity Reaction Status Date / Time Penicillins Allergy Severe Rash/Hives, Verified 03/06/23 07:56 Itching simvastatin [From Zocor] AdvReac Severe constipation, Verified 03/06/23 07:56 dry cough pregabalin [From Lyrica] AdvReac Confusion Verified 03/06/23 07:56 Review of Systems ROS Statement: Those systems with pertinent positive or pertinent negative responses have been documented in the HPI. ROS Other: All systems not noted in ROS Statement are negative. Constitutional: Denies: fever Eyes: Denies: eye pain ENT: Denies: ear pain Respiratory: Denies: cough Cardiovascular: Denies: chest pain Endocrine: Denies: fatigue Gastrointestinal: Denies: abdominal pain Skin: Reports: as per HPI Past Medical History Past Medical History: Heart Failure, Diabetes Mellitus, Deep Vein Thrombosis (DVT), GERD/Reflux, Hyperlipidemia, Hypertension, Osteoarthritis (OA), Renal Disease, Skin Disorder, Vascular Disorder, Vascular Disorder Additional Past Medical History / Comment(s): 2018 respiratory failure with coma/trach/vent/feeding tube, DM type II, neuropathy bilateral feet, DVT R leg, PVD, CKD stage III/has L arm AV fistula with past dialysis, current right arm graft for current HD sat/sat/sat, chronic anemia, current wounds to bilateral feet: Left heel and Right lateral side/toes, past decub coccyx/R buttock, cellulitis R leg, osteomylitis R foot/toes, constipation/diverticular disease, bilateral tinnitis History of Any Multi-Drug Resistant Organisms: MRSA Date of last positivie culture/infection: 01/25/19 MDRO Source:: FOOT Past Surgical History: Appendectomy, Cholecystectomy, Orthopedic Surgery Additional Past Surgical History / Comment(s): 11/25/19 ligation branches L upper extremity fistula, 07/2019 L arm A/V fistula, partial amputation R 5th/3rd toe, bilateral cataracts/lens/RK, ovarian cystectomy, left upper extremity 1st Stage Vein procedure. Fistula procedure done on 04/15/20, graft on right arm for HD. Past Anesthesia/Blood Transfusion Reactions: No Reported Reaction Additional Past Anesthesia/Blood Transfusion Reaction / Comment(s): clausterphobia Past Psychological History: No Psychological Hx Reported Smoking Status: Former smoker Past Alcohol Use History: None Reported Past Drug Use History: None Reported - Past Family History Father Additional Family Medical History / Comment(s): ALCOHOLIC. . Mother Family Medical History: Cancer, CVA/TIA, Diabetes Mellitus, Myocardial Infarction ([place]) Additional Family Medical History / Comment(s): Colon cancer. . Brother(s) Additional Family Medical History / Comment(s): DRUG DEPENDENCY, alcoholic General Exam Limitations: no limitations General appearance: alert, in no apparent distress Head exam: Present: normocephalic Eye exam: Present: normal appearance Respiratory exam: Present: normal lung sounds bilaterally Cardiovascular Exam: Present: regular rate, normal rhythm Neurological exam: Present: alert Psychiatric exam: Present: normal affect, normal mood Skin exam: Present: other (Catheter right anterior chest wall with some dried blood. No evidence of active bleeding) Course Vital Signs 03/06/23 07:51 Temperature 98.3 F Pulse Rate 72 Respiratory 18 Rate Blood Pressure 153/71 O2 Sat by Pulse 100 Oximetry Medical Decision Making - Medical Decision Making Was pt. sent in by a medical professional or institution (, PA, BEE TENDER, urgent care, hospital, or jail...) When possible be specific @ -Patient was sent in by dialysis center. Did you speak to anyone other than the patient for history (EMS, parent, family, police, friend...)? What history was obtained from this source @ -I did speak with Dr. Pedersen who would like patient reevaluated by vascular Did you review nursing and triage notes (agree or disagree)? Why? @ -I reviewed and agree with nursing and triage notes Were old charts reviewed (outside hosp., previous admission, EMS record, old EKG, old radiological studies, urgent care reports/EKG's, jail records)? Report findings @ -No old charts were reviewed Differential Diagnosis (chest pain, altered mental status, abdominal pain women, abdominal pain men, vaginal bleeding, weakness, fever, dyspnea, syncope, headache, dizziness, GI bleed, back pain, seizure, CVA, palpatations, mental health, musculoskeletal)? @ -Differential Weakness: Hypoglycemia, shock, sepsis, hyponatremia, anemia, infection, [place], ETOH, adverse medicine reaction, overdose, stroke, this is not meant to be an all-inclusive list. EKG interpreted by me (3pts min.). @ -As above X-rays interpreted by me (1pt min.). @ -None done CT interpreted by me (1pt min.). @ -None done U/S interpreted by me (1pt. min.). @ -None done What testing was considered but not performed or refused? (CT, X-rays, U/S, labs)? Why? @ -None What meds were considered but not given or refused? Why? @ -None Did you discuss the management of the patient with other professionals (professionals i.e. , PA, BEE TENDER, lab, RT, psych nurse, healthcare social worker, pet adoption counselor, teacher, environmental protection officer, pillowcase cutter)? Give summary @ -Case was discussed with Dr. Pedersen has above. Case also discussed with Dr. Davis who states he is not available and recommends calling Dr. Persaud. Case was also discussed with Dr. Persaud who did come and evaluate patient. He did check the catheter and feels it is usable. He did flush it and ensure there is no active bleeding. Was smoking cessation discussed for >3mins.? @ -No Was critical care preformed (if so, how long)? @ -No Were there social determinants of health that impacted care today? How? (Homelessness, low income, unemployed, alcoholism, drug addiction, transportation, low edu. Level, literacy, decrease access to med. care, alf, rehab)? @ -No Was there de-escalation of care discussed even if they declined (Discuss DNR or withdrawal of care, Hospice)? DNR status @ -No What co-morbidities impacted this encounter? (DM, HTN, Smoking, COPD, CAD, Cancer, CVA, ARF, Chemo, Hep., AIDS, mental health diagnosis, sleep apnea, morbid obesity)? @ -None Was patient admitted / discharged? Hospital course, mention meds given and route, prescriptions, significant lab abnormalities, going to OR and other pertinent info. @ -Patient updated. Patient will be discharged to dialysis center. Undiagnosed new problem with uncertain prognosis? @ -No Drug Therapy requiring intensive monitoring for toxicity (Heparin, Nitro, Insulin, Cardizem)? @ -No Were any procedures done? @ -No Diagnosis/symptom? @ -Dialysis catheter malfunction Acute, or Chronic, or Acute on Chronic? @ -Acute Uncomplicated (without systemic symptoms) or Complicated (systemic symptoms)? @ -default Side effects of treatment? @ -No Exacerbation, Progression, or Severe Exacerbation? @ -No Poses a threat to life or bodily function? How? (Chest pain, [place], [place], pneumonia, PE, COPD, DKA, ARF, appy, cholecystitis, CVA, Diverticulitis, Homicidal, Suicidal, threat to staff... and all critical care pts) @ -No Disposition Clinical Impression: Hemorrhage from dialysis catheter Disposition: HOME SELF-CARE Condition: Stable Additional Instructions: Please do follow-up with dialysis immediately. Return for bleeding, problems with your catheter, worsening symptoms or other concerns Is patient prescribed a controlled substance at d/c from ED?: No Referrals: Parrish Santoyo MD [Primary Care Provider] - 1-2 days Time of Disposition: 09:28
[2023-03-06] MEDS ORDERED: HEPARIN SODIUM 1,000 UN/ML (10ML VL) MISCELLANE ONE (09:01)
[2023-03-06 09:51] VITALS: BP 133/86; PULSE 66; TEMP 98.1
--- NOTE | 2023-03-06 11:55 | CONS ---
DATE OF CONSULTATION: 03/06/2023 This is a 72-year-old female. She came to the emergency room sent by her daughter, sent with a history of bleeding from the catheter site. The patient has history of chronic renal failure. She has been having dialysis 3 times a week. The patient was seen in the emergency room. Chest is clear. Abdomen is soft. Femorals are present. The patient has a right jugular dialysis catheter. There is a dry scab noted at the exit site of catheter. There was no evidence of any active bleeding noted. We flushed the catheter and there was a decent flow and then hep-locked it. The patient is going to her dialysis today. Discussed with Nephrology and if there is any other issue, they will contact me. STEFFANIE / MARIO: [phone] / PAULINA
== END 2023-03-06 10:00 | disposition home or self-care (01) ==
LOC: EC 07:50
DX: T82.838A Hemorrhage due to vascular prosthetic devices, implants and grafts, initial encounter (principal); E11.22 Type 2 diabetes mellitus with diabetic chronic kidney disease; I13.2 Hypertensive heart and chronic kidney disease with heart failure and with stage 5 chronic kidney disease, or end stage renal disease; N18.30 Chronic kidney disease, stage 3 unspecified; I50.9 Heart failure, unspecified; E11.40 Type 2 diabetes mellitus with diabetic neuropathy, unspecified; E11.51 Type 2 diabetes mellitus with diabetic peripheral angiopathy without gangrene; E11.36 Type 2 diabetes mellitus with diabetic cataract; Z79.4 Long term (current) use of insulin; Z79.01 Long term (current) use of anticoagulants; Z86.718 Personal history of other venous thrombosis and embolism; Z88.0 Allergy status to penicillin; Z99.2 Dependence on renal dialysis; Z87.891 Personal history of nicotine dependence; Z90.49 Acquired absence of other specified parts of digestive tract
CPT/HCPCS: 99283

== ENCOUNTER 2023-04-04 08:00 | Day surgery (SDC) | payer MEDICARE, OTHER ==
[2023-03-29 12:41] VITALS: BMI 35.4
[~2023-04-04 08:00] MED LIST changes: -ALTEPLASE 10 MG in SODIUM CHLORIDE 0.9% 50 ML IV ONE; +DEXAMETHASONE SOD PHOSPHATE 4 MG/ML 1 ML VIAL IV ONE; -HEPARIN SOD IV ONE; -HEPARIN SODIUM 1,000 UN/ML (10ML VL) ONE; -INSULIN ASPART (NovoLOG) 100 UNIT/ML VIAL SQ ONE; -IOPAMIDOL-250 100ML BTL IV ONE; +LIDOCAINE 1% (10MG/ML) FOR IV START INTRADERMA PRN; -LIDOCAINE 1% INJ 10MG/ML (20 ML MDV) ONE; -LIDOCAINE 1% INJ 10MG/ML (5 ML VIAL-PF) SQ ONE; -MIDAZOLAM 2 MG/2 ML VIAL IV ONE; +ONDANSETRON 4 MG/2 ML VIAL IVP ONE; -ONDANSETRON 4 MG/2 ML VIAL ONE; -SODIUM CHLORIDE 0.9% 500 ML 500 ML IV ONE; -SODIUM CHLORIDE IV ONE; +droPERidol 5 MG/2 ML VIAL IVP ONE; -fentaNYL (PF) 50 MCG/ML 2 ML AMP ONE
[2023-04-04] MEDS: LACTATED RINGERS 1,000 ML IV SCH ×2 (08:39→09:21)
[2023-04-04 09:19] LABS: Glucose,Whole Blood 211 mg/dL (70-110)
[2023-04-04] MEDS ORDERED: SODIUM CHLORIDE 0.9% 1,000 ML IV ONE (09:21)
[2023-04-04] MEDS ORDERED: HEPARIN SODIUM,PORCINE 5,000 UNIT/ML 1 ML VIAL ONE (11:51)
[2023-04-04] MEDS ORDERED: fentaNYL (PF) 50 MCG/ML 2 ML AMP ONE (11:51)
[2023-04-04] MEDS ORDERED: PROPOFOL 10 MG/ML 20 ML VIAL IV ONE (11:51)
[2023-04-04] MEDS ORDERED: MIDAZOLAM 2 MG/2 ML VIAL ONE (11:51)
[2023-04-04] MEDS ORDERED: LIDOCAINE 1% INJ 10MG/ML (20 ML MDV) ONE (11:51)
[2023-04-04] MEDS ORDERED: ePHEDrine 50 MG/ML 1 ML VIAL ONE (11:51)
[2023-04-04] MEDS ORDERED: THROMBIN (BOVINE) 5,000 UNIT VIAL TOPICAL ONE (13:25)
--- NOTE | 2023-04-04 14:30 | P.OP ---
Date of Procedure: 04/04/23 Description of Procedure: Preoperative diagnosis: End-stage renal disease, dialysis via tunnel catheter Postoperative diagnosis: Same Procedure: Left upper extremity brachial artery to axillary vein 4 x 7 AV graft Surgeon: Alea Guo D.O. Anesthesia: Gen. LMA EBL: 15 mL IV fluids: See operative records Urine output: Not measured Drains: None Complications: None immediately apparent Condition: Stable to PACU Operative indication and findings: Patient is a 72-year-old female with multiple previous attempts at grafts and fistulas. She currently has no access due to previous thromboses. She underwent imaging which showed appropriate appearing axillary vein left upper extremity. She has no current grafts in this area therefore attempts will be made for a brachial axillary graft. Risks and benefits were discussed. She seemingly understands and is willing to proceed Procedure in detail: The patient was taken to the operative suite and placed in supine position. The upper extremity is prepped and draped in usual sterile fashion. A preprocedure timeout was performed, all parties were in agreement. A transverse incision was made just proximal to the antecubital fossa and carried down to the level of the brachial artery. It was dissected free circumferentially and proximal and distal Vesseloops were placed. Attention was then turned towards the venous outflow. At the axilla, the ultrasound was utilized to identify axillary vein. Incision was made and carried down through the subcutaneous tissues with electrocautery. The vein was identified. It was dissected free and trial clamped with a Satinsky. The 4 x 7 propatent graft was then tunneled. The patient was then heparinized. Flow was occluded through the artery. An arteriotomy was performed and anastomosis to the graft was performed with 6-0 Prolene. The graft was then flushed and the anastomosis was tied. Flow was resumed through the artery. Attention was then turned towards the venous anastomosis. Flow was occluded through the vein and a venotomy was performed. Anastomosis created with 6-0 Prolene. Prior to completion of the anastomosis the graft was flushed as well as the veins themselves. Flow was reinstituted. There remained a palpable pulse proximal and distal to the arterial anastomosis as well as a palpable pulse in the wrist. Thrombin Gelfoam was used for hemostasis. The incision sites were copiously irrigated the subcutaneous tissues were approximately with 3-0 Vicryl in interrupted fashion and the skin was reapproximated with running 4-0 Monocryl. Skin glue was placed. The patient was allowed awaken from anesthesia and transferred to PACU in stable condition having tolerated the procedure well.] Plan - Discharge Summary Discharge Rx Participant: Yes New Discharge Prescriptions: No Action Calcium Acetate [PhosLo] 667 mg PO TID-W/MEALS Insulin Aspart [NovoLOG Flexpen] 20 units SQ TID Cholecalciferol [Vitamin D3 (25 Mcg = 1000 Iu)] 75 mcg PO DAILY Apixaban [Eliquis] 2.5 mg PO BID allopurinoL [Zyloprim] 100 mg PO DAILY 30 Days #30 tab Collagenase [Santyl Ointment] 1 applic TOPICAL TUTHSA Insulin Glargine,Hum.rec.anlog [Basaglar Kwikpen U-100] 20 unit SQ AC-SUPPER Aspirin [Adult Low Dose Aspirin EC] 81 mg PO DAILY Acetaminophen Tab [Tylenol Tab] 500 - 1,000 mg PO Q4-6H PRN PRN Reason: Pain Discharge Medication List Calcium Acetate [PhosLo] 667 mg PO TID-W/MEALS 12/28/20 [History] Cholecalciferol [Vitamin D3 (25 Mcg = 1000 Iu)] 75 mcg PO DAILY 05/16/21 [History] Apixaban [Eliquis] 2.5 mg PO BID 04/17/22 [History] allopurinoL [Zyloprim] 100 mg PO DAILY 30 Days #30 tab 04/23/22 [Rx] Collagenase [Santyl Ointment] 1 applic TOPICAL TUTHSA 01/18/23 [History] Insulin Aspart [NovoLOG Flexpen] 20 units SQ TID 01/18/23 [History] Acetaminophen Tab [Tylenol Tab] 500 - 1,000 mg PO Q4-6H PRN 03/29/23 [History] Aspirin [Adult Low Dose Aspirin EC] 81 mg PO DAILY 03/29/23 [History] Insulin Glargine,Hum.rec.anlog [Basaglar Kwikpen U-100] 20 unit SQ AC-SUPPER 03/29/23 [History]
[2023-04-04] MEDS: HYDROmorphone 0.5 MG/0.5 ML SYRINGE IVP PRN ×2 (14:31→14:53)
[2023-04-04 14:37] LABS: Glucose,Whole Blood 157 mg/dL (70-110)
[2023-04-04] MEDS ORDERED: ONDANSETRON 4 MG/2 ML VIAL ONE (15:42)
[2023-04-04 16:23] LABS: Glucose,Whole Blood 180 mg/dL (70-110)
[2023-04-04 20:35] LABS: Glucose,Whole Blood 208 mg/dL (70-110)
--- NOTE | 2023-04-04 21:46 | P.CONS ---
History of Present Illness - Reason for Consult Consult date: 04/04/23 - History of Present Illness Patient is a 72-year-old female with a PMH of ESRD on hemodialysis MWF, diastolic CHF, type II DM, history of DVT on Eliquis, and hypertension who was admitted for a scheduled left upper extremity AV graft placement. The patient underwent the procedure earlier today with no obvious immediate postoperative complications and was seen in the surgical unit. She reported ongoing 3 out of 10 left upper extremity pain at the surgical site. She denied experiencing chest discomfort, sore throat, fever, chills, cough, shortness of breath, abdominal pain, or diarrhea. She did report a single episode of nonbloody emesis shortly after returning from PACU. Denies any further nausea. Review of systems: Pertinent positives and negatives as discussed in HPI, a complete review of systems was performed and all other systems are negative. Physical examination: Vital signs reviewed General: non toxic, no distress, appears at stated age, obese Derm: no unusual rashes/lesions, warm Head: atraumatic, normocephalic, symmetric Eyes: EOMI, no lid lag, anicteric sclera, pupils equal round reactive to light ENT: Nose and ears atraumatic Neck: No cervical lymphadenopathy, trachea midline, supple Mouth: no lip lesion, mucus membranes moist Cardiovascular: S1S2 reg, no murmur, positive dorsalis pedis pulse bilateral, no edema Lungs: CTA bilateral, no rhonchi, no rales, no accessory muscle use Abdominal: soft, nontender to palpation, no guarding Ext: muscle strength 5 out of 5 in all 4 extremities grossly, no gross muscle atrophy, no contractures, LUE postsurgical dressing clean and dry Neuro: CN II-XI grossly intact, no gross focal neuro deficits Psych: Alert, oriented, appropriate affect Assessment: Postop LUE AV graft placement Chronic conditions: ESRD, diastolic CHF, history of DVT, hypertension Imaging: None performed Data Review: Blood glucose levels reviewed Plan: Continue patient on insulin NovoLog 10 units ACTID (takes 20 at home) and Levemir 10 U qhs (takes 20 at home) Nephrology consulted for resumption of hemodialysis Defer resumption of patient's home Eliquis to primary surgery service We appreciate this opportunity to be involved in this patient's care. We will follow the patient with you. For any further questions, please not hesitate to contact the [place] inpatient team. Past Medical History Past Medical History: Heart Failure, Diabetes Mellitus, Deep Vein Thrombosis (DVT), GERD/Reflux, Hyperlipidemia, Hypertension, Osteoarthritis (OA), Renal Disease, Skin Disorder, Vascular Disorder, Vascular Disorder Additional Past Medical History / Comment(s): 2017 respiratory failure with coma/trach/vent/feeding tube, DM type II, neuropathy bilateral feet, DVT R leg, PVD, CKD stage III/has L arm AV fistula with past dialysis, current right arm graft for current HD sat/sat/sat, chronic anemia, current wounds to bilateral feet: Left heel and Right lateral side/toes, past decub coccyx/R buttock, cellulitis R leg, osteomylitis R foot/toes, constipation/diverticular disease, bilateral tinnitis History of Any Multi-Drug Resistant Organisms: MRSA Year Discovered:: 01/25/19 MDRO Source:: FOOT Past Surgical History: Appendectomy, Cholecystectomy, Orthopedic Surgery Additional Past Surgical History / Comment(s): 11/25/19 ligation branches L upper extremity fistula, 07/2019 L arm A/V fistula, partial amputation R 5th/3rd toe, bilateral cataracts/lens/RK, ovarian cystectomy, left upper extremity 1st Stage Vein procedure. Fistula procedure done on 04/15/20, graft on right arm for HD. Past Anesthesia/Blood Transfusion Reactions: No Reported Reaction Additional Past Anesthesia/Blood Transfusion Reaction / Comm: clausterphobia Past Psychological History: No Psychological Hx Reported Additional Psychological History / Comment(s): She is incontinent of urine. She doesn't have a history of alcohol use. 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 No international travel. no experience. Has her pet cat, Guille was given away when she lost her apt. Smoking Status: Former smoker Past Alcohol Use History: None Reported Additional Past Alcohol Use History / Comment(s): started smoking age 20 (1970) and quit 1990, smoked 1 ppd Past Drug Use History: None Reported Additional Drug Use History / Comment(s): denies use - Past Family History Father Additional Family Medical History / Comment(s): ALCOHOLIC, . Mother Family Medical History: Cancer, CVA/TIA, Diabetes Mellitus, Myocardial Infarction ([place]) Additional Family Medical History / Comment(s): Colon cancer, . Brother(s) Additional Family Medical History / Comment(s): DRUG DEPENDENCY, alcoholic. Medications and Allergies Home Medications Medication Instructions Recorded Confirmed Type Calcium Acetate [PhosLo] 667 mg PO TID-W/MEALS 12/28/20 04/04/23 History Cholecalciferol [Vitamin D3 (25 75 mcg PO DAILY 05/16/21 04/04/23 History Mcg = 1000 Iu)] Apixaban [Eliquis] 2.5 mg PO BID 04/17/22 04/04/23 History allopurinoL [Zyloprim] 100 mg PO DAILY 30 Days #30 tab 04/23/22 04/04/23 Rx Collagenase [Santyl Ointment] 1 applic TOPICAL TUTHSA 01/18/23 04/04/23 History Insulin Aspart [NovoLOG Flexpen] 20 units SQ TID 01/18/23 04/04/23 History Acetaminophen Tab [Tylenol Tab] 500 - 1,000 mg PO Q4-6H PRN 03/29/23 04/04/23 History Aspirin [Adult Low Dose Aspirin EC] 81 mg PO DAILY 03/29/23 04/04/23 History Insulin Glargine,Hum.rec.anlog 20 unit SQ AC-SUPPER 03/29/23 04/04/23 History [Basaglar Kwikpen U-100] Allergies Allergy/AdvReac Type Severity Reaction Status Date / Time Penicillins Allergy Severe Rash/Hives, Verified 04/04/23 08:42 Itching midodrine Allergy Vomiting Verified 04/04/23 08:42 simvastatin [From Zocor] AdvReac Severe constipation, Verified 04/04/23 08:42 dry cough pregabalin [From Lyrica] AdvReac Confusion Verified 04/04/23 08:42 Physical Exam Vitals: Vital Signs Temp Pulse Resp BP Pulse Ox 04/04/23 18:11 97.6 F 76 16 123/60 100 04/04/23 18:04 97.6 F 76 17 123/60 100 04/04/23 17:31 71 16 101/64 95 04/04/23 17:05 72 16 110/67 96 04/04/23 16:50 71 16 117/71 99 04/04/23 16:35 73 16 106/55 99 04/04/23 16:20 72 16 121/82 100 04/04/23 16:05 71 16 119/72 95 04/04/23 15:50 75 16 126/62 97 04/04/23 15:32 69 16 110/50 97 04/04/23 15:30 90 16 121/77 100 04/04/23 15:17 69 16 121/57 99 04/04/23 15:02 68 16 110/46 97 04/04/23 14:47 68 16 107/51 97 04/04/23 14:32 68 16 116/55 99 04/04/23 14:17 97.2 F L 70 16 145/65 95 04/04/23 09:14 97.6 F 74 16 121/77 97 Intake and Output 04/04/23 04/04/23 04/04/23 06:59 14:59 22:59 Intake Total 550 0 Output Total 25 Balance 525 0 Intake: IV 550 0 Output: Estimated Blood Loss 25 Other: Voiding Method Toilet Weight 112 kg 112 kg Results CBC & Chem 7: 04/04/23 09:03 Labs: Abnormal Lab Results - Last 24 Hours (Table) 04/04/23 04/04/23 04/04/23 Range/Units 09:04 14:35 16:22 POC Glucose (mg/dL) 211 H 157 H 180 H (70-110) mg/dL 04/04/23 Range/Units 20:33 POC Glucose (mg/dL) 208 H (70-110) mg/dL
[2023-04-04] MEDS ORDERED: INSULIN DETEMIR (LEVEMIR) 100 UNIT/ML SYR SQ SCH (22:15)
[2023-04-05] MEDS ORDERED: ACETAMINOPHEN TAB 325 MG TAB PO PRN (03:04)
[2023-04-05] MEDS: INSULIN ASPART (NovoLOG) 100 UNIT/ML VIAL SQ SCH ×5 (06:35→17:13)
[2023-04-05] MEDS: LACTATED RINGERS 1,000 ML IV SCH (06:36)
[2023-04-05 06:40] LABS: Glucose,Whole Blood 142 mg/dL (70-110)
[2023-04-05 07:37] VITALS: RESP 18
[2023-04-05 09:31] LABS: HCT 33.3 % (34.0-46.0); MCH 30.8 pg (25.0-35.0); MCV 93.2 fL (80.0-100.0); Mean Platelet Volume 7.8; Platelet Count 154 k/uL (150-450); RBC 3.57 m/uL (3.80-5.40); RDW 14.6 % (11.5-15.5); WBC 5.1 k/uL (3.8-10.6)
--- NOTE | 2023-04-05 10:00 | P.PN ---
Subjective Progress Note Date: 04/05/23 Patient seen and examined. Overall doing well. Pain control. Left upper extremity with good appearing flow through the graft. Hopeful for discharge later today pending nephrology recommendation. Patient to get dialysis today. Objective - Vital Signs Vital signs: Vital Signs Temp 98.1 F 04/05/23 07:34 Pulse 71 04/05/23 07:34 Resp 18 04/05/23 07:34 BP 111/72 04/05/23 07:34 Pulse Ox 97 04/05/23 07:34 FiO2 Intake & Output 04/04/23 04/05/23 04/05/23 18:59 06:59 18:59 Intake Total 550 120 Output Total 25 Balance 525 120 Weight 112 kg Intake: IV 550 Oral 120 Output: Estimated Blood Loss 25 Other: Voiding Method Toilet - Labs CBC & Chem 7: 04/05/23 09:07 04/04/23 09:03 Labs: Abnormal Lab Results - Last 24 Hours (Table) 04/04/23 04/04/23 04/04/23 Range/Units 14:35 16:22 20:33 RBC (3.80-5.40) m/uL Hgb (11.4-16.0) gm/dL Hct (34.0-46.0) % POC Glucose (mg/dL) 157 H 180 H 208 H (70-110) mg/dL 04/05/23 04/05/23 Range/Units 06:21 09:07 RBC 3.57 L (3.80-5.40) m/uL Hgb 11.0 L (11.4-16.0) gm/dL Hct 33.3 L (34.0-46.0) % POC Glucose (mg/dL) 142 H (70-110) mg/dL
[2023-04-05 10:01] LABS: African American GFR (CKD) 7 (>60 ml/min/1.73 sqM); Anion Gap 12 mmol/L; Blood Urea Nitrogen 35 mg/dL (7-17); Calcium 8.5 mg/dL (8.4-10.2); Carbon Dioxide 25 mmol/L (22-30); Chloride 99 mmol/L (98-107); Glucose 145 mg/dL (74-99); Non-African American GFR(CKD) 6 (>60 ml/min/1.73 sqM); Potassium 4.2 mmol/L (3.5-5.1); Sodium 136 mmol/L (137-145)
--- NOTE | 2023-04-05 11:54 | P.NPCON ---
History of Present Illness - Reason for Consult end stage renal disease - History of Present Illness Reason for consultation: End-stage renal disease History of present illness: Patient is a 72-year-old female seen in renal consultation for end-stage renal disease. She is maintained on hemodialysis on Saturday schedule. Patient has a permacath. She underwent AV graft surgery yesterday. Scheduled for dialysis today. Patient has long-standing history of diabetes. No fever or chills. No chest pain or shortness of breath. Patient has foot wound for which she follows and wound care. Currently she has no active complains. Hemodynamically stable. Vital signs are stable. General: No acute distress. HEENT: Head exam is unremarkable. LUNGS: No audible rhonchi or wheezes. HEART: Rate and Rhythm are regular. ABDOMEN: Nontender, obese. EXTREMITITES: No edema. No drainage noted. Past Medical History Past Medical History: Heart Failure, Diabetes Mellitus, Deep Vein Thrombosis (DVT), GERD/Reflux, Hyperlipidemia, Hypertension, Osteoarthritis (OA), Renal Disease, Skin Disorder, Vascular Disorder, Vascular Disorder Additional Past Medical History / Comment(s): 2018 respiratory failure with coma/trach/vent/feeding tube, DM type II, neuropathy bilateral feet, DVT R leg, PVD, CKD stage III/has L arm AV fistula with past dialysis, current right arm graft for current HD sat/sat/sat, chronic anemia, current wounds to bilateral feet: Left heel and Right lateral side/toes, past decub coccyx/R buttock, cellulitis R leg, osteomylitis R foot/toes, constipation/diverticular disease, bilateral tinnitis History of Any Multi-Drug Resistant Organisms: MRSA Date of last positivie culture/infection: 01/25/19 MDRO Source:: FOOT Past Surgical History: Appendectomy, Cholecystectomy, Orthopedic Surgery Additional Past Surgical History / Comment(s): 11/25/19 ligation branches L upper extremity fistula, 07/2019 L arm A/V fistula, partial amputation R 5th/3rd toe, bilateral cataracts/lens/RK, ovarian cystectomy, left upper extremity 1st Stage Vein procedure. Fistula procedure done on 04/15/20, graft on right arm for HD. Past Anesthesia/Blood Transfusion Reactions: No Reported Reaction Additional Past Anesthesia/Blood Transfusion Reaction / Comment(s): clausterphobia Past Psychological History: No Psychological Hx Reported Additional Psychological History / Comment(s): She is incontinent of urine. She doesn't have a history of alcohol use. 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 No international travel. no experience. Has her pet cat, Guille was given away when she lost her apt. Smoking Status: Former smoker Past Alcohol Use History: None Reported Additional Past Alcohol Use History / Comment(s): started smoking age 20 (1970) and quit 1990, smoked 1 ppd Past Drug Use History: None Reported Additional Drug Use History / Comment(s): denies use - Past Family History Father Additional Family Medical History / Comment(s): ALCOHOLIC, . Mother Family Medical History: Cancer, CVA/TIA, Diabetes Mellitus, Myocardial Infarction ([place]) Additional Family Medical History / Comment(s): Colon cancer, . Brother(s) Additional Family Medical History / Comment(s): DRUG DEPENDENCY, alcoholic. Medications and Allergies Home Medications Medication Instructions Recorded Confirmed Type Calcium Acetate [PhosLo] 667 mg PO TID-W/MEALS 12/28/20 04/04/23 History Cholecalciferol [Vitamin D3 (25 75 mcg PO DAILY 05/16/21 04/04/23 History Mcg = 1000 Iu)] Apixaban [Eliquis] 2.5 mg PO BID 04/17/22 04/04/23 History allopurinoL [Zyloprim] 100 mg PO DAILY 30 Days #30 tab 04/23/22 04/04/23 Rx Collagenase [Santyl Ointment] 1 applic TOPICAL TUTHSA 01/18/23 04/04/23 History Insulin Aspart [NovoLOG Flexpen] 20 units SQ TID 01/18/23 04/04/23 History Acetaminophen Tab [Tylenol Tab] 500 - 1,000 mg PO Q4-6H PRN 03/29/23 04/04/23 History Aspirin [Adult Low Dose Aspirin EC] 81 mg PO DAILY 03/29/23 04/04/23 History Insulin Glargine,Hum.rec.anlog 20 unit SQ AC-SUPPER 03/29/23 04/04/23 History [Basaglar Kwikpen U-100] Allergies Allergy/AdvReac Type Severity Reaction Status Date / Time Penicillins Allergy Severe Rash/Hives, Verified 04/04/23 08:42 Itching midodrine Allergy Vomiting Verified 04/04/23 08:42 simvastatin [From Zocor] AdvReac Severe constipation, Verified 04/04/23 08:42 dry cough pregabalin [From Lyrica] AdvReac Confusion Verified 04/04/23 08:42 Physical Exam Vitals: Vital Signs Temp Pulse Resp BP Pulse Ox 04/05/23 07:34 98.1 F 71 18 111/72 97 04/05/23 02:00 98.2 F 71 21 109/69 97 04/04/23 20:00 97.5 F L 78 21 102/64 100 04/04/23 18:11 97.6 F 76 16 123/60 100 04/04/23 18:04 97.6 F 76 17 123/60 100 04/04/23 17:31 71 16 101/64 95 04/04/23 17:05 72 16 110/67 96 04/04/23 16:50 71 16 117/71 99 04/04/23 16:35 73 16 106/55 99 04/04/23 16:20 72 16 121/82 100 04/04/23 16:05 71 16 119/72 95 04/04/23 15:50 75 16 126/62 97 04/04/23 15:32 69 16 110/50 97 04/04/23 15:30 90 16 121/77 100 04/04/23 15:17 69 16 121/57 99 04/04/23 15:02 68 16 110/46 97 04/04/23 14:47 68 16 107/51 97 04/04/23 14:32 68 16 116/55 99 04/04/23 14:17 97.2 F L 70 16 145/65 95 Intake and Output 04/04/23 04/05/23 04/05/23 22:59 06:59 14:59 Intake Total 0 120 Balance 0 120 Intake: IV 0 Oral 120 Other: Voiding Method Toilet # Bowel Movements 1 Weight 112 kg Results - Lab Results Most recent lab results Calcium 8.5 mg/dL (8.4-10.2) 04/05/23 09:07 04/05/23 09:07 04/05/23 09:07 Assessment and Plan Plan: Assessment: 1. End-stage renal disease maintained on hemodialysis on Saturday schedule. 2. Status post left upper extremity AV graft surgery 04/04/2023. 3. Diabetes mellitus. 4. Chronic foot wound. Follows and wound care. Also has home care nurse. 5. Chronic kidney disease mineral bone disease. Plan: Hemodialysis today. Potential discharge after dialysis today. Thank you for the consultation. I will continue to follow the patient with you during her hospital stay.
[2023-04-05 12:09] LABS: Glucose,Whole Blood 246 mg/dL (70-110)
--- NOTE | 2023-04-05 12:21 | P.PN ---
Subjective Progress Note Date: 04/05/23 Patient is a 72-year-old female with a PMH of ESRD on hemodialysis MWF, diastolic CHF, type II DM, history of DVT on Eliquis, and hypertension who was admitted for a scheduled left upper extremity AV graft placement. The patient underwent the procedure on 04/[address] Guo. [facility] Phys[facility] consulted for medical management of this patient. 04/05 Patient was seen and examined. No acute events overnight. She reports well controlled pain at the site of procedure. Nephrology consulted, plans for HD to day and discharge home if everything goes well. CBC Hg 11 Hct 33.3. BMP Na 136, BUN 35, Cr 6.76, glu 145. General: non toxic, no distress, appears at stated age Derm: warm, dry Head: atraumatic, normocephalic, symmetric Eyes: EOMI, no lid lag, anicteric sclera Cardiovascular: S1S2 reg, no murmur Lungs: CTA bilateral, no rhonchi, no rales , no accessory muscle use Ext: no gross muscle atrophy, no edema, no contractures Neuro: no focal neuro deficits Psych: Alert, oriented, appropriate affect Based on my assessment of this patient, this patient meets a moderate complexity level of care. Patient has chronic medical conditions including ESRD on hemodialysis MWF, diastolic CHF, type II DM, history of DVT on Eliquis, and hypertension. ESRD: Nephrology consulted. Plans for HD today. Restart calcium acetate 667 mg PO TID. Diastolic CHF: Not in acute exacerbation. Type II DM: Levemir 10 units QHS. Novolog 10 units TID. ISS. Accuchecks ACHS. Hypoglycemic precautions. History of DVT on Eliquis: Restart ASA and Eliquis when OK with Vascular Sx. CODE STATUS: FULL CODE. DVT Prophylaxis: SCDs GI Prophylaxis: Designated medical POA if patient is not able to make medical decisions for the mselves: I have reviewed the following nursing education consultant notes: Nephrology note. I have reviewed the results of the following tests: CBC, BMP I have ordered the following tests: I have discussed the care of this patient with the following independent historian: I have independently interpreted the following test below: I have discussed the management of this patient with the following physician: Discussed with Dr. Pedersen. Objective - Vital Signs Vital signs: Vital Signs Temp 98.1 F 04/05/23 07:34 Pulse 71 04/05/23 07:34 Resp 18 04/05/23 07:34 BP 111/72 04/05/23 07:34 Pulse Ox 97 04/05/23 07:34 FiO2 Intake & Output 04/04/23 04/05/23 04/05/23 18:59 06:59 18:59 Intake Total 550 120 Output Total 25 Balance 525 120 Weight 112 kg Intake: IV 550 Oral 120 Output: Estimated Blood Loss 25 Other: Voiding Method Toilet # Bowel Movements 1 - Labs CBC & Chem 7: 04/05/23 09:07 04/05/23 09:07 Labs: Abnormal Lab Results - Last 24 Hours (Table) 04/04/23 04/04/23 04/04/23 Range/Units 14:35 16:22 20:33 RBC (3.80-5.40) m/uL Hgb (11.4-16.0) gm/dL Hct (34.0-46.0) % Sodium (137-145) mmol/L BUN (7-17) mg/dL Creatinine (0.52-1.04) mg/dL Glucose (74-99) mg/dL POC Glucose (mg/dL) 157 H 180 H 208 H (70-110) mg/dL 04/05/23 04/05/23 04/05/23 Range/Units 06:21 09:07 09:07 RBC 3.57 L (3.80-5.40) m/uL Hgb 11.0 L (11.4-16.0) gm/dL Hct 33.3 L (34.0-46.0) % Sodium 136 L (137-145) mmol/L BUN 35 H (7-17) mg/dL Creatinine 6.76 H (0.52-1.04) mg/dL Glucose 145 H (74-99) mg/dL POC Glucose (mg/dL) 142 H (70-110) mg/dL 04/05/23 Range/Units 12:07 RBC (3.80-5.40) m/uL Hgb (11.4-16.0) gm/dL Hct (34.0-46.0) % Sodium (137-145) mmol/L BUN (7-17) mg/dL Creatinine (0.52-1.04) mg/dL Glucose (74-99) mg/dL POC Glucose (mg/dL) 246 H (70-110) mg/dL
[2023-04-05] MEDS ORDERED: CALCIUM ACETATE 667 MG TAB PO SCH (12:30)
[2023-04-05] MEDS: ALTEPLASE 2 MG VIAL (CATHFLO) IV SCH ×2 (16:53→16:54)
[2023-04-05 17:08] LABS: Glucose,Whole Blood 113 mg/dL (70-110)
[2023-04-05 19:04] VITALS: BP 135/56; PULSE 69; TEMP 98.5
[2023-04-06] MEDS ORDERED: allopurinoL 100 MG TAB PO SCH (09:00)
== END 2023-04-05 18:43 | disposition home or self-care (01) ==
LOC: OR 08:00 → 4SSUR 14:17 → OR 17:44 → 4SSUR 17:44 → OR 04-05 18:43
PROVIDERS: ATTEND Surgery
DX: N18.6 End stage renal disease (principal); I13.2 Hypertensive heart and chronic kidney disease with heart failure and with stage 5 chronic kidney disease, or end stage renal disease; E11.22 Type 2 diabetes mellitus with diabetic chronic kidney disease; E78.5 Hyperlipidemia, unspecified; J90 Pleural effusion, not elsewhere classified; Z98.61 Coronary angioplasty status; D50.9 Iron deficiency anemia, unspecified; Z90.49 Acquired absence of other specified parts of digestive tract; Z98.890 Other specified postprocedural states; Z99.2 Dependence on renal dialysis; Z79.01 Long term (current) use of anticoagulants; Z79.82 Long term (current) use of aspirin; Z79.899 Other long term (current) drug therapy
CPT/HCPCS: 36830; 80048; 84132; 85027; L8670; J0690; J2405; J2997; J1170; 90935

== ENCOUNTER → 2023-11-21 | Day surgery (SDC) | payer MEDICARE, OTHER ==
[~2023-11-21] MED LIST changes: -DEXAMETHASONE SOD PHOSPHATE 4 MG/ML 1 ML VIAL IV ONE; -LIDOCAINE 1% (10MG/ML) FOR IV START INTRADERMA PRN; +LIDOCAINE 1% INJ 10MG/ML (20 ML MDV) ONE; -ONDANSETRON 4 MG/2 ML VIAL IVP ONE; -droPERidol 5 MG/2 ML VIAL IVP ONE; +fentaNYL (PF) 50 MCG/ML 2 ML AMP ONE
[2023-11-21] MEDS: IV FLUID CONTINUATION 1,000 ML IV ONE (06:23)
[2023-11-21] MEDS: SODIUM CHLORIDE 0.9% 500 ML 500 ML IV SCH (06:23)
[2023-11-21 06:47] LABS: Basophils % (A) 0 %; Eosinophils # (A) 0.2 k/uL (0-0.7); Eosinophils % (A) 4 %; HCT 35.5 % (34.0-46.0); HGB 11.5 gm/dL (11.4-16.0); Lymphocytes # (A) 0.8 k/uL (1.0-4.8); Lymphocytes % (A) 16 %; MCH 31.5 pg (25.0-35.0); MCHC 32.5 g/dL (31.0-37.0); MCV 97.1 fL (80.0-100.0); Monocytes # (A) 0.2 k/uL (0-1.0); Monocytes % (A) 4 %; Neutrophils # (A) 3.8 k/uL (1.3-7.7); Neutrophils % (A) 75 %; Platelet Count 197 k/uL (150-450); RBC 3.65 m/uL (3.80-5.40); RDW 14.1 % (11.5-15.5); WBC 5.1 k/uL (3.8-10.6)
[2023-11-21 06:52] VITALS: TEMP 98.6
[2023-11-21 07:07] LABS: African American GFR (CKD) 6 (>60 ml/min/1.73 sqM); Anion Gap 9 mmol/L; Blood Urea Nitrogen 39 mg/dL (7-17); Calcium 8.5 mg/dL (8.4-10.2); Carbon Dioxide 30 mmol/L (22-30); Chloride 97 mmol/L (98-107); Glucose 161 mg/dL (74-99); Non-African American GFR(CKD) 5 (>60 ml/min/1.73 sqM); Potassium 5.6 mmol/L (3.5-5.1); Sodium 136 mmol/L (137-145)
[2023-11-21] MEDS: fentaNYL (PF) 50 MCG/1 ML VIAL IVP ONE (07:38)
[2023-11-21] MEDS: MIDAZOLAM 2 MG/2 ML VIAL IVP ONE (07:39)
[2023-11-21] MEDS: LIDOCAINE 1% INJ 10MG/ML (20 ML MDV) SQ ONE (07:40)
[2023-11-21] MEDS: IOPAMIDOL-250 100ML BTL IVP ONE (08:15)
--- NOTE | 2023-11-21 08:50 | P.OP ---
Date of Procedure: 11/21/23 Description of Procedure: Preoperative diagnosis: Diminished flow through the graft, malfunctioning AV graft Postoperative diagnosis: Same Procedure: Ultrasound-guided AV graft access 2 Fistulogram Percutaneous transluminal balloon angioplasty of the inflow 4 x 20, Percutaneous transdermal balloon angioplasty outflow 8 x 40 Moderate conscious sedation 33 minutes, personal monitoring certified RN administration with hemodynamic monitoring Surgeon: Alea Guo D.O. EBL: Less than 10 mL IV fluids: See records Urine output: Not measured Drains: None Complications: None immediately apparent Condition: Stable to recovery Operative indication and findings: Patient is a 73-year-old female with an AV graft from left upper arm She states there were occasional issues when the blood pressure was lower. She presents for fistulogram and intervention She seemingly understands the plan is willing to proceed. Procedure in detail: Patient was taken to the special suite and placed in supine position. Left upper extremity is prepped and draped in usual sterile fashion. A preprocedure timeout was performed, all parties were in agreement. Using ultrasound, initially in the outflow direction, the graft was accessed. Permanent images stored. Catheters and wires were utilized passed into the outf low vein and venogram was performed showing moderate stenosis at the outflow anastomosis. Utilizing an 8 x 40 balloon, angioplasty was performed with improvement of the vein. There was some degree of in graft stenosis therefore this was also ballooned with a [address] out with the balloon. Access was obtained towards the inflow direction. Again using ultrasound the graft was cannulated and a 6-Tamazight sheath was placed. Catheters and wires were placed into the brachial artery and images performed showing patent arterial vasculature and images obtained showing some redundancy of the arterial portion of the graft with mild stenosis. Due to this the lesion was crossed and a 4 x 20 balloon was insufflated for angioplasty of the anastomosis. Repeat images performed, there was significant improvement of flow through the graft with resolution of the mild stenosis. While the catheter was in the brachial artery, imaging was performed and the kink itself was straightened out. When the catheter was drawn back there was again some visualization of the redundancy. There appeared to be adequate pulse to the graft with flow throughout. Final imaging was performed showing continued improvement of the outflow anastomosis. At that point catheters and wires were removed. The sheath was removed and [id number] sutures were placed at each site. Dressings were placed the patient was allowed awaken from her sedation and transferred to recovery in stable condition having tolerated her procedure well. Plan - Discharge Summary Discharge Rx Participant: No New Discharge Prescriptions: No Action Calcium Acetate [PhosLo] 667 mg PO TID-W/MEALS Insulin Aspart [NovoLOG Flexpen] 20 units SQ TID Sodium Chloride 5% Ophth Soln [[place] 128] 1 drops BOTH EYES DAILY Cholecalciferol [Vitamin D3 (25 Mcg = 1000 Iu)] 75 mcg PO DAILY Apixaban [Eliquis] 2.5 mg PO BID allopurinoL [Zyloprim] 100 mg PO DAILY 30 Days #30 tab Collagenase [Santyl Ointment] 1 applic TOPICAL MOWEFR Insulin Glargine,Hum.rec.anlog [Basaglar Kwikpen U-100] 15 unit SQ AC-SUPPER Aspirin [Adult Low Dose Aspirin EC] 81 mg PO DAILY Acetaminophen Tab [Tylenol] 500 - 1,000 mg PO Q4-6H PRN PRN Reason: Pain Cinacalcet [Sensipar] 30 mg PO SUTH Discharge Medication List Calcium Acetate [PhosLo] 667 mg PO TID-W/MEALS 12/28/20 [History] Cholecalciferol [Vitamin D3 (25 Mcg = 1000 Iu)] 75 mcg PO DAILY 05/16/21 [History] Apixaban [Eliquis] 2.5 mg PO BID 04/17/22 [History] allopurinoL [Zyloprim] 100 mg PO DAILY 30 Days #30 tab 04/23/22 [Rx] Collagenase [Santyl Ointment] 1 applic TOPICAL MOWEFR 01/18/23 [History] Insulin Aspart [NovoLOG Flexpen] 20 units SQ TID 01/18/23 [History] Acetaminophen Tab [Tylenol] 500 - 1,000 mg PO Q4-6H PRN 03/29/23 [History] Aspirin [Adult Low Dose Aspirin EC] 81 mg PO DAILY 03/29/23 [History] Insulin Glargine,Hum.rec.anlog [Basaglar Kwikpen U-100] 15 unit SQ AC-SUPPER 03/29/23 [History] Cinacalcet [Sensipar] 30 mg PO SUTH 11/20/23 [History] Sodium Chloride 5% Ophth Soln [[place] 128] 1 drops BOTH EYES DAILY 11/20/23 [History] Follow up Appointment(s)/Referral(s): Alea Guo DO [STAFF PHYSICIAN] - 6 Weeks (Follow-up in the office in 6 to 8 weeks with ultrasound, please call for appointment) Activity/Diet/Wound Care/Special Instructions: Resume regular diet. Resume regular activity. Resume home medications including Eliquis tonight. Discharge Disposition: TRANSFER TO SNF/ECF
[2023-11-21 10:05] VITALS: BP 108/54; PULSE 58; RESP 16
--- NOTE | 2023-12-21 14:08 | IR ---
EXAMINATION TYPE: IR fistula/abscess/sinus tract DATE OF EXAM: 11/21/2023 9:02 AM COMPARISON: Pre Operative Images if available both CT/MRI or plain film CLINICAL INDICATION: Female, 73 years old with history of left fistulagram, 3.4 min fluoro, 8.6407 Gy cm2; TECHNIQUE: IR fistula/abscess/sinus tract, multiple fluoroscopic images provided for procedure. Total fluoroscopy time: 3.5 minutes Total submitted images to PACS: [id number] DAP: 319 uGym2 cGycm2 . FINDINGS: IMPRESSION: 1. Report was generated for administrative purposes only. 2. Please see the operative/procedural note for further details. [facility], , 12/21/2023 2:06 PM
== END ==
LOC: CATHCVL 05:34
PROVIDERS: ATTEND Surgery
DX: T82.858A Stenosis of other vascular prosthetic devices, implants and grafts, initial encounter (principal); I13.2 Hypertensive heart and chronic kidney disease with heart failure and with stage 5 chronic kidney disease, or end stage renal disease; I50.9 Heart failure, unspecified; N18.6 End stage renal disease; E11.22 Type 2 diabetes mellitus with diabetic chronic kidney disease; D63.1 Anemia in chronic kidney disease; E11.69 Type 2 diabetes mellitus with other specified complication; E78.5 Hyperlipidemia, unspecified; E66.01 Morbid (severe) obesity due to excess calories; Z68.35 Body mass index [BMI] 35.0-35.9, adult; Z88.0 Allergy status to penicillin; Z88.8 Allergy status to other drugs, medicaments and biological substances; Z99.2 Dependence on renal dialysis; Z87.891 Personal history of nicotine dependence; Z79.01 Long term (current) use of anticoagulants; Z79.4 Long term (current) use of insulin; Z79.899 Other long term (current) drug therapy; Z79.82 Long term (current) use of aspirin; Y83.8 Other surgical procedures as the cause of abnormal reaction of the patient, or of later complication, without mention of misadventure at the time of the procedure
CPT/HCPCS: 36902; 80048; 85025

== ENCOUNTER 2024-06-04 05:32 | Day surgery (SDC) | payer MEDICARE, OTHER ==
[2024-06-04] MEDS ORDERED: SODIUM CHLORIDE 0.9% 500 ML 500 ML IV SCH (05:53)
[2024-06-04 06:25] VITALS: TEMP 97.8
[2024-06-04 06:26] LABS: Glucose,Whole Blood 187 mg/dL (70-110)
[2024-06-04 06:34] LABS: Basophils % (A) 0 %; Eosinophils # (A) 0.2 k/uL (0-0.7); Eosinophils % (A) 3 %; HCT 39.4 % (34.0-46.0); Hypochromasia Slight; Lymphocytes # (A) 0.7 k/uL (1.0-4.8); Lymphocytes % (A) 8 %; MCH 29.9 pg (25.0-35.0); MCHC 30.4 g/dL (31.0-37.0); MCV 98.2 fL (80.0-100.0); Mean Platelet Volume 7.9; Monocytes # (A) 0.4 k/uL (0-1.0); Monocytes % (A) 4 %; Neutrophils # (A) 7.2 k/uL (1.3-7.7); Neutrophils % (A) 84 %; Platelet Count 178 k/uL (150-450); RBC 4.01 m/uL (3.80-5.40); RDW 14.8 % (11.5-15.5); WBC 8.6 k/uL (3.8-10.6)
[2024-06-04 06:51] LABS: African American GFR (CKD) 4 (>60 ml/min/1.73 sqM); Anion Gap 18 mmol/L; Blood Urea Nitrogen 66 mg/dL (7-17); Calcium 8.1 mg/dL (8.4-10.2); Carbon Dioxide 20 mmol/L (22-30); Chloride 97 mmol/L (98-107); Glucose 197 mg/dL (74-99); Non-African American GFR(CKD) 4 (>60 ml/min/1.73 sqM); Sodium 135 mmol/L (137-145)
[2024-06-04 06:54] LABS: Potassium 6.3 mmol/L (3.5-5.1)
[2024-06-04] MEDS: LIDOCAINE 1% INJ 10MG/ML (20 ML MDV) SQ ONE (07:36)
[2024-06-04] MEDS: MIDAZOLAM 2 MG/2 ML VIAL IVP ONE (07:36)
[2024-06-04] MEDS: IOPAMIDOL-370 100ML BTL INJ ONE (08:13)
--- NOTE | 2024-06-04 08:34 | P.OP ---
Date of Procedure: 06/04/24 Description of Procedure: Description of Procedure: Preoperative diagnosis: Diminished flow through the graft, malfunctioning AV graft Postoperative diagnosis: Same Procedure: Ultrasound-guided AV graft access 2 Fistulogram Percutaneous transluminal balloon angioplasty of the inflow 5 x 40, Percutaneous transdermal balloon angioplasty outflow tract 7 x 20 Moderate conscious sedation 34 minutes, personal monitoring certified RN administration with hemodynamic monitoring Surgeon: Alea Guo D.O. EBL: Less than 10 mL IV fluids: See records Urine output: Not measured Drains: None Complications: None immediately apparent Condition: Stable to recovery Operative indication and findings: Patient is a 73-year-old female with a brachial to axillary AV graft from left upper arm She states there were occasional issues when the blood pressure was lower. She presents for fistulogram and intervention She seemingly understands the plan is willing to proceed. Procedure in detail: Patient was taken to the special suite and placed in supine position. Left upper extremity is prepped and draped in usual sterile fashion. A preprocedure timeout was performed, all parties were in agreement. Using ultrasound, initially in the outflow direction, the graft was accessed. Permanent images stored. Catheters and wires were utilized passed into the outflow vein and venogram was performed showing moderate stenosis at the outflow tract. Utilizing an 7 x 20 balloon, angioplasty was performed with improvement, second portion was done at the spot of access site with significant improvement. Access was obtained towards the inflow direction. Again using ultrasound the graft was cannulated and a 6-Lao sheath was placed. Catheters and wires were placed into the brachial artery and images performed showing patent arterial vasculature and images obtained showing some redundancy of the arterial portion of the graft with mild stenosis at the inflow anastomosis. Due to this the lesion was crossed and a 5 x 20 balloon was insufflated for angioplasty of the anastomosis. Repeat images performed, there was significant improvement of flow through the graft with resolution of the mild stenosis. There appeared to be adequate pulse to the graft with flow throughout. Final imaging was perf ormed showing continued improvement of the stenoses. At that point catheters and wires were removed. The sheath was removed and [id number] sutures were placed at each site. Dressings were placed the patient was allowed awaken from her sedation and transferred to recovery in stable condition having tolerated her procedure well.
[2024-06-04 09:07] VITALS: BP 151/67; RESP 16
[2024-06-04 09:15] VITALS: PULSE 67
[2024-06-04] MEDS: IV FLUID CONTINUATION 1,000 ML IV ONE (10:30)
--- NOTE | 2024-06-04 11:03 | IR ---
EXAMINATION TYPE: IR fistula/abscess/sinus tract DATE OF EXAM: 06/04/2024 10:19 AM COMPARISON: Pre Operative Images if available both CT/MRI or plain film CLINICAL INDICATION: Female, 73 years old with history of Dialysis, 5.5m/3.08DAP, lt arm puncture sut ured and man pres; TECHNIQUE: IR fistula/abscess/sinus tract, multiple fluoroscopic images provided for procedure. DAP: 3.08 mGym2 Gycm2 uGym2 cGycm2 or equivalent. FINDINGS: IMPRESSION: 1. Report was generated for administrative purposes only. 2. Please see the operative/procedural note for further details. [facility], , 06/04/2024 11:01 AM
== END 2024-06-04 10:05 | disposition home or self-care (01) ==
LOC: CATHCVL 05:32
PROVIDERS: ATTEND Surgery
DX: T82.590A Other mechanical complication of surgically created arteriovenous fistula, initial encounter (principal); N18.6 End stage renal disease; Y83.8 Other surgical procedures as the cause of abnormal reaction of the patient, or of later complication, without mention of misadventure at the time of the procedure
CPT/HCPCS: 36902; 80048; 85025; 99152; 99153; C1894; C1769 ×3; C1725 ×2; J2250; J2003; Q9967